=== PATIENT | female | born 1945 | race Caucasian/White ===

== ENCOUNTER 2023-05-06 11:41 | Outpatient (CLI) | payer MEDICARE, SELFPAY | END 2023-05-06 11:42 | disposition home or self-care (01) | PROVIDERS: PCP Nurse Practitioner Family; Visit Provider Nurse Practitioner Family | DX: E78.5 Hyperlipidemia, unspecified (principal); R53.83 Other fatigue; D64.9 Anemia, unspecified; I10 Essential (primary) hypertension | CPT/HCPCS: 80053; 82306; 82784; 83516; 83540; 83550; 84443; 85025 ==

== ENCOUNTER 2023-06-08 15:01 | Outpatient (CLI) | payer MEDICARE, SELFPAY | END 2023-06-08 15:02 | disposition home or self-care (01) | LOC: KYNREF 15:03 | PROVIDERS: PCP Nurse Practitioner Family; Visit Provider Nurse Practitioner Family | DX: D64.9 Anemia, unspecified (principal) | CPT/HCPCS: 85025 ==

== ENCOUNTER 2023-06-22 15:10 | Outpatient (CLI) | payer MEDICARE, SELFPAY | END 2023-06-22 15:11 | disposition home or self-care (01) | PROVIDERS: PCP Nurse Practitioner Family; Visit Provider Nurse Practitioner Family | DX: R06.02 Shortness of breath (principal); D64.9 Anemia, unspecified | CPT/HCPCS: 83880; 85025 ==

== ENCOUNTER 2024-05-08 13:28 | Outpatient (CLI) | payer MEDICARE, SELFPAY ==
--- OUTSIDE RECORDS SUMMARY | 2024-05-08 13:38 | XMS_ITS | Clinical Summary ---
Author Organization [employer] [facility] Address [place], [place] [address] Care Team Providers Care Hspt Tutor Name Role Phone Telly Gaines Primary Care Provider [phone] Allergies Active Allergy Reactions Criticality Noted Date Comments Iodinated Contrast Media Anaphylaxis High 01/28/2010 Latex Hives 01/28/2010 Metoclopramide Dyspnea 01/16/2014 Tramadol Syncope 07/25/2018 passed out Social History Tobacco Use Types Packs/Day Years Used Date Smoking Tobacco: Never Assessed Sex and Gender Information Value Date Recorded Sex Assigned at Not on file Gender Identity Not on file Sexual Orientation Not on file Last Filed Vital Signs Vital Sign Reading Time Taken Comments Blood Pressure 188/109 08/09/2022 11:29 AM CDT Pulse 50 08/09/2022 12:22 PM CDT Temperature 36.6 ??C (97.9 ??F) 08/09/2022 11:10 AM C DT Respiratory Rate 16 08/09/2022 11:10 AM CDT Oxygen Saturation 98% 08/09/2022 12:22 PM CDT Inhaled Oxygen Concentration - - Weight - - Height - - Body Mass Index - - Plan of Treatment Health Maintenance Due Date Last Done Comments Tdap 1958 Depression screening for age 12+ 1959 BMI (ht and wt on same day) for age 18+ 1965 Hepatitis C screening for ag e 18-79 1965 Tetanus booster 1967 Zoster (shingles) series for age 50+ (1 of 2) 1997 DEXA/DXA scan for age 65+ 2012 Pneumococcal series for age 65+ (1 of 1 - PCV) 2012 COVID-19 vaccine series (2022- season) 2023 04/06/2022, 08/27/2021, 01/15/2021, Additional history exists Influenza for age 65+ 07/16/2024 Care Teams Hspt Tutor Relationship Specialty Start Date End Date Telly Gaines [address] [place] [address] PCP - General 07/11/14
--- OUTSIDE RECORDS SUMMARY | 2024-05-08 13:43 | XMS_ITS | Continuity of Care Document ---
Author Organization [facility] Address [address] [place] [address] Care Team Providers Care Mechanical Cad Designer Name Role Phone Emilia Lincoln M.D. Primary Care Provider [phone] Source Comments Patient records contain information from all sites at [facility]. For routine questions regarding patient records, call [phone] during business hours, M-F 8:00 AM - 5:00 PM Central Time. Record requests for emergency care only can be directed to [phone] at any time.[facility] Encounters Date Type Department Care Team Description 4 2:00 PM CDT Anticoagulation Visit Department of Anticoagulation in [place], [place] [address] [place] [address] Emilia Lincoln M.D. Thrombosis Deep Vein Personal History (Primary Dx); 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; Monitoring For Therapeutic Drug Therapy; Atrial Fibrillation Paroxysmal (HCC) 4 Clinical Communication Department of Anticoagulation in [place], [place] [address] [place] [address] Yun Lau Anticoagulation (Lack of Engagement) 4 11:11 AM CDT - 4 11:59 PM CDT Hospital Encounter Department of Cardiovascular Diseases in [place], [place] [address] [place] [address] Hugo Sanchez M.D. Failure Heart (HCC) Discharge Disposition: Home or Self Care 4 9:16 AM CDT - 4 11:10 AM CDT Hospital Encounter Department of Radiology, [facility], in [place], [place] [address] [place] [phone] Hugo Sanchez M.D. Failure Heart (HCC) Discharge Disposition: Home or Self Care 4 8:25 AM CDT - 4 9:15 AM CDT Hospital Encounter Department of Laboratory Medicine and Pathology, [facility] in [place], [place] [address] [place] [address] Hugo Sanchez M.D. Atrial Fibrillation Paroxysmal (HCC); Failure Heart (HCC) Discharge Disposition: Home or Self Care 4 4:00 PM CDT Office Visit Department of Cardiovascular Medicine in [place], [place] [address] [place] [phone] Hugo Sanchez M.D. Hypertension Essential Primary (Primary Dx); Chronic Diastolic (Congestive) Heart Failure (HCC); Atrial Fibrillation Paroxysmal (HCC); Sleep Apnea; Hyperlipidemia 4 3:00 PM CDT Anticoagulation Visit Department of Anticoagulation in [place], [place] [address] [place] [phone] Emilia Lincoln M.D. Thrombosis Deep Vein Personal History; Assisted (Current) 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 Treatment; Monitoring For Therapeutic Drug Therapy; Atrial Fibrillation Paroxysmal (HCC) 4 Refill Department of Family Medicine, [facility], in [address] [address] Emilia Lincoln M.D. Med Refill 4 3:00 PM CDT Anticoagulation Visit Department of Anticoagulation in [place], [place] [address] [place] [phone] Emilia Lincoln M.D. Thrombosis Deep Vein Personal History (Primary Dx); Assisted (Current) 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 Treatment; Monitoring For Therapeutic Drug Therapy; Atrial Fibrillation Paroxysmal (HCC) 4 2:18 PM CDT - 4 11:59 PM CDT Hospital Encounter Department of Laboratory Medicine in [place], [place] [address] [place] [address] Emilia Lincoln M.D. Atrial Fibrillation Paroxysmal (HCC); Assisted (Current) 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 Treatment; Monitoring For Therapeutic Drug Therapy; Thrombosis Deep Vein Personal History Discharge Disposition: Home or Self Care 4 2:45 PM CDT Telemedicine Center for Sleep Medicine in [place], [place] [address] [place] [phone] Andrews Ko M.B. Kloos Olson, Kristin E, R.N. Insomnia (Primary Dx) 4 Clinical Communication Department of Anticoagulation in [place], [place] [address] [place] [phone] Magda Banks R.N. Anticoagulation (Home INR-machine left at other house) 4 Refill Department of Cardiovascular Medicine in [place], [place] [address] [place] [phone] Guru Cruz M.D. Med Refill 4 Refill Department of Cardiovascular Medicine in [place], [place] [address] [place] [phone] Guru Cruz M.D. Med Refill 4 Clinical Communication Department of Cardiovascular Medicine in [address] [phone] Morning Show Newscast ProducerHi M.D. Echo Move Up Request 4 Clinical Communication Department of Cardiovascular Medicine in [place], [place] [address] [place] [phone] Hugo Sanchez M.D. 4 1:30 PM CDT Anticoagulation Visit Department of Anticoagulation in [place], [place] [address] [place] [phone] Emilia Lincoln M.D. Atrial Fibrillation Paroxysmal (HCC); 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; Monitoring For Therapeutic Drug Therapy; Thrombosis Deep Vein Personal History 4 Clinical Communication Department of Anticoagulation in [place], [place] [address] [place] [phone] Diane Marie R.N. Anticoagulation ([facility] Enrollment) 4 9:15 AM CDT Anticoagulation Visit Department of Anticoagulation in [place], [place] [address] [place] [phone] Emilia Lincoln M.D. Atrial Fibrillation Paroxysmal (HCC); Assisted (Current) 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 Treatment; Monitoring For Therapeutic Drug Therapy; Thrombosis Deep Vein Personal History 4 Orders Only [facility] Emilia Lincoln M.D. 4 12:30 PM [facility] Clinical Communication Virtual Review in [place], [place] [address] [place] [address] Pre-visit Intake 4 3:00 PM [facility] Anticoagulation Visit Department of Anticoagulation in [place], [place] [address] [place] [phone] Telly Gaines M.D. Atrial Fibrillation Paroxysmal (HCC); 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; Monitoring For Therapeutic Drug Therapy; Thrombosis Deep Vein Personal History 4 Refill Department of Family Medicine, [facility], in [place], [place] [address] [place] [phone] Hannah Reich APRN, C.N.P., D.N.P. Med Refill 4 11:15 AM [facility] Anticoagulation Visit Department of Anticoagulation in [place], [place] [address] [place] [phone] Telly Gaines M.D. Atrial Fibrillation Paroxysmal (HCC) (Primary Dx); 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; Monitoring For Therapeutic Drug Therapy; Thrombosis Deep Vein Personal History 4 8:15 AM [facility] Anticoagulation Visit Department of Anticoagulation in [place], [place] [address] [place] [phone] Emilia Lincoln M.D. Thrombosis Deep Vein Personal History (Primary Dx); 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; Monitoring For Therapeutic Drug Therapy; Atrial Fibrillation Paroxysmal (HCC) 4 10:45 AM [facility] Clinical Communication Virtual Review in [place], [place] [address] [place] [address] Previsit Preparation (ROSA ELENA DD) 4 Clinical Communication [facility] in [place], [place] [address] [place] [phone] Andrews Ko M.B. 4 4:00 PM [facility] Anticoagulation Visit Department of Anticoagulation in [place], [place] [address] [place] [phone] Telly Gaines M.D. Atrial Fibrillation Paroxysmal (HCC); Assisted (Current) 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 Treatment; Monitoring For Therapeutic Drug Therapy; Thrombosis Deep Vein Personal History 4 9:30 AM [facility] Telemedicine [facility] in [address] [address] Andrews Ko M.B. Obstructive Sleep Apnea Adult (Primary Dx) 4 10:45 AM [facility] Anticoagulation Visit Department of Anticoagulation in [address] [address] Telly Gaines M.D. Atrial Fibrillation Paroxysmal (HCC); Assisted (Current) 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 Treatment; Monitoring For Therapeutic Drug Therapy; Thrombosis Deep Vein Personal History 4 9:30 AM [facility] Anticoagulation Visit Department of Anticoagulation in [address] [address] Emilia Lincoln M.D. Thrombosis Deep Vein Personal History (Primary Dx); 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; Monitoring For Therapeutic Drug Therapy; Atrial Fibrillation Paroxysmal (HCC) 4 7:30 AM [facility] - 4 11:59 PM [facility] Hospital Encounter [facility] in [place], [place] [address] [place] [phone] Andrews Ko M.B. Discharge Disposition: Home or Self Care 4 Clinical Communication Department of Cardiovascular Medicine in [place], [place] [address] [place] [phone] Morning Show Newscast ProducerHi M.D. 4 Clinical Communication Department of Cardiovascular Medicine in [place], [place] [address] [place] [phone] Prescheduling, Provider Triage 4 Orders Only [facility] [address] [place] [address] Fede Palacios M.D. Chronic Diastolic (Congestive) Heart Failure (HCC) (Primary Dx) 4 4:00 PM [facility] Anticoagulation Visit Department of Anticoagulation in [place], [place] [address] [place] [address] Telly Gaines M.D. Atrial Fibrillation Paroxysmal (HCC); 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; Monitoring For Therapeutic Drug Therapy; Thrombosis Deep Vein Personal History 4 Orders Only Department of Cardiovascular Medicine in [place], [place] [address] [place] [phone] Fede Palacios M.D. 4 8:45 AM [facility] Anticoagulation Visit Department of Anticoagulation in [place], [place] [address] [place] [phone] Emilia Lincoln M.D. Thrombosis Deep Vein Personal History (Primary Dx); Assisted (Current) 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 Treatment; Monitoring For Therapeutic Drug Therapy; Atrial Fibrillation Paroxysmal (HCC) 3 9:01 AM [facility] - 4 11:59 PM [facility] Hospital Encounter [facility] in [place], [place] [address] [place] [phone] Andrews Ko M.B. Obstructive Sleep Apnea Adult Discharge Disposition: Home or Self Care 3 2:45 PM [facility] Telemedicine [facility] in [place], [place] [address] [place] [phone] Andrews Ko M.B. Obstructive Sleep Apnea Adult (Primary Dx) 3 Clinical Communication [facility] in [place], [place] [address] [place] [phone] Storm Mcgee M.D. 3 9:40 AM [facility] - 3 11:59 PM [facility] Hospital Encounter Department of Laboratory Medicine in [address] [address] Fede Palacios M.D. Hypertension Pulmonary (HCC); Anemia Iron Deficiency; Chronic Diastolic (Congestive) Heart Failure (HCC) Discharge Disposition: Home or Self Care 3 Refill Department of Cardiovascular Medicine in [place], [place] [address] [place] [phone] Guru Cruz M.D. Med Refill 3 2:15 PM [facility] Infusion Department of Infusion Therapy in [place], [place] [address] [place] [phone] Fede Palacios M.D. Anemia Iron Deficiency (Primary Dx); Anemia Discharge Disposition: Home or Self Care 3 Documentation Department of Cardiovascular Diseases in [place], [place] [address] [place] [phone] Josias Radha Siddharth 3 9:04 AM [facility] - 3 11:59 PM [facility] Hospital Encounter Department of Cardiac Rehabilitation in [place], [place] [address] [place] [phone] Ap Buckley M.D., Ph.D. Hypertension Pulmonary (HCC) Discharge Disposition: Home or Self Care 3 10:00 AM [facility] Comprehensive Visit Department of Cardiovascular Medicine in [place], [place] [address] [place] [phone] Fede Palacios M.D. Anemia Iron Deficiency (Primary Dx); Hypertension Pulmonary (HCC); Chronic Diastolic (Congestive) Heart Failure (HCC) 3 8:00 AM [facility] Comprehensive Visit Department of Cardiovascular Medicine in [place], [place] [address] [place] [phone] Ap Buckley M.D., Ph.D. Atrial Fibrillation Unspecified (HCC); Atrial Fibrillation Paroxysmal (HCC) 3 10:45 AM [facility] Clinical Communication Virtual Review in [place], [place] [address] [place] [address] Pre-visit Intake 3 1:16 PM [facility] - 3 1:35 PM [facility] Hospital Encounter Department of Laboratory Medicine and Pathology, [facility] in [place], [place] [address] [place] [address] Jose A Lewis M.D. Hyperlipidemia; Atrial Fibrillation Unspecified (HCC); Atrial Fibrillation Paroxysmal (HCC); Hypertension Pulmonary (HCC) Discharge Disposition: Home or Self Care 3 1:36 PM [facility] - 3 11:59 PM [facility] Hospital Encounter Department of Cardiovascular Diseases in [place], [place] [address] [place] [phone] Ap Buckley M.D., Ph.D. Hypertension Pulmonary (HCC) Discharge Disposition: Home or Self Care 3 8:45 AM [facility] Anticoagulation Visit Department of Anticoagulation in [place], [place] [address] [place] [phone] Telly Gaines M.D. Thrombosis Deep Vein Personal History (Primary Dx); 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; Monitoring For Therapeutic Drug Therapy; Atrial Fibrillation Paroxysmal (HCC) 3 1:15 PM [facility] Anticoagulation Visit Department of Anticoagulation in [place], [place] [address] [place] [phone] Telly Gaines M.D. Atrial Fibrillation Paroxysmal (HCC); 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; Monitoring For Therapeutic Drug Therapy; Thrombosis Deep Vein Personal History 3 10:00 AM [facility] Anticoagulation Visit Department of Anticoagulation in [place], [place] [address] [place] [address] Telly Gaines M.D. Atrial Fibrillation Paroxysmal (HCC); Assisted (Current) 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 Treatment; Monitoring For Therapeutic Drug Therapy; Thrombosis Deep Vein Personal History 3 Clinical Communication Department of Cardiovascular Medicine in [place], [place] [address] [place] [phone] Morning Show Newscast ProducerHi M.D. 3 9:30 AM [facility] Anticoagulation Visit Department of Anticoagulation in [place], [place] [address] [place] [phone] Emilia Lincoln M.D. Thrombosis Deep Vein Personal History (Primary Dx); 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; Monitoring For Therapeutic Drug Therapy; Atrial Fibrillation Paroxysmal (HCC) 3 8:30 AM CDT Anticoagulation Visit Department of Anticoagulation in [place], [place] [address] [place] [phone] Emilia Lincoln M.D. Thrombosis Deep Vein Personal History (Primary Dx); 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; Monitoring For Therapeutic Drug Therapy; Atrial Fibrillation Paroxysmal (HCC) 3 11:15 AM CDT Anticoagulation Visit Department of Anticoagulation in [place], [place] [address] [place] [phone] Telly Gaines M.D. Atrial Fibrillation Paroxysmal (HCC); Assisted (Current) 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 Treatment; Monitoring For Therapeutic Drug Therapy; Thrombosis Deep Vein Personal History 3 Orders Only Department of Anticoagulation in [place], [place] [address] [place] [phone] Tori Dias R.N. 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 (Primary Dx) 3 Refill Department of Family Medicine, [facility] in [place], [place] [address] [place] [phone] Jose A Lewis M.D. Med Refill 3 Clinical Communication Department of Family Medicine, [facility], in [address] [address] Emilia Lincoln M.D. 3 1:30 PM CDT - 3 11:59 PM CDT Hospital Encounter Department of Radiology in [address] [address] Emilia Lincoln M.D. Screening Mammogram Breast Cancer Discharge Disposition: Home or Self Care 3 8:45 AM CDT Anticoagulation Visit Department of Anticoagulation in [place], [place] [address] [place] [phone] Jose A Lewis M.D. Thrombosis Deep Vein Personal History; 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; Monitoring For Therapeutic Drug Therapy; Atrial Fibrillation Paroxysmal (HCC) 3 Clinical Communication Department of Cardiovascular Medicine in [place], [place] [address] [place] [address] Ap Buckley M.D., Ph.D. Medication Problem (Dofetilide) 3 Clinical Communication Department of Family Medicine, [facility], in [address] [address] Iza Albarran R.N. Post Hospital Follow-up (D/c 07/21/2023) 3 2:00 PM CDT Anticoagulation Visit Department of Anticoagulation in [place], [place] [address] [place] [phone] Jose A Lewis M.D. Thrombosis Deep Vein Personal History (Primary Dx); 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; Monitoring For Therapeutic Drug Therapy; Atrial Fibrillation Paroxysmal (HCC) 3 9:30 AM CDT Anticoagulation Visit Department of Anticoagulation in [place], [place] [address] [place] [phone] Jose A Lewis M.D. Thrombosis Deep Vein Personal History (Primary Dx); 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; Monitoring For Therapeutic Drug Therapy; Atrial Fibrillation Paroxysmal (HCC) 3 Clinical Communication Department of Anticoagulation in [place], [place] [address] [place] [phone] Christine Brandt R.N. Anticoagulation (Post-hospital, tracker updated.) 3 2:34 PM CDT Anesthesia Event Department of Cardiovascular Disease [address] [place] [phone] Lani Huber APRN, CRNA, D.N.P. 3 6:46 AM CDT - 3 4:47 PM CDT Hospital Encounter [facility], [facility], Fourth Floor [address] [place] [phone] Ap Buckley M.D., Ph.D. Telly Sorto M.D., Ph.D. OnAdeel bass P.A.-C. Atrial Fibrillation Paroxysmal (HCC) (Primary Dx); Assisted (Current) 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 Treatment; Thrombosis Deep Vein Acute Calf Right (HCC); Monitoring For Therapeutic Drug Therapy Discharge Disposition: Home or Self Care 3 Clinical Communication Department of Cardiovascular Medicine in [place], [place] [address] [place] [phone] Hannah Falcon APRN, C.N.P. 3 9:00 AM CDT Anticoagulation Visit Department of Anticoagulation in [place], [place] [address] [place] [phone] Jose A Lewis M.D. Thrombosis Deep Vein Personal History (Primary Dx); 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; Monitoring For Therapeutic Drug Therapy; Atrial Fibrillation Paroxysmal (HCC) 3 Refill Department of [facility] in [place], [place] [address] [place] [phone] Jose A Lewis M.D. Med Refill 3 12:48 PM CDT - 3 11:59 PM CDT Hospital Encounter Department of Laboratory Medicine in [address] [phone] Ap Buckley M.D., Ph.D. Atrial Fibrillation Unspecified (HCC) Discharge Disposition: Home or Self Care 3 Clinical Communication Department of Anticoagulation in [place], [place] [address] [place] [phone] Veronica Mistry R.N. anticoagulaion procedure 3 2:45 PM CDT Anticoagulation Visit Department of Anticoagulation in [place], [place] [address] [place] [phone] Telly Gaines M.D. Atrial Fibrillation Paroxysmal (HCC); 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; Monitoring For Therapeutic Drug Therapy; Thrombosis Deep Vein Personal History 3 [facility] AND [address] [address] Ximena cEkert C.N.P. Repeated Falls (Primary Dx) 3 Clinical Communication Department of Family Medicine, [facility] in [place], [place] [address] [place] [address] Jose A Lewis M.D. 3 9:30 AM CDT Anticoagulation Visit Department of Anticoagulation in [place], [place] [address] [place] [phone] Jose A Lewis M.D. Thrombosis Deep Vein Personal History (Primary Dx); Assisted (Current) 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 Treatment; Monitoring For Therapeutic Drug Therapy; Atrial Fibrillation Paroxysmal (HCC) 3 Clinical Communication Department of Urology in [place], [place] [address] [place] [address] Kendal Bullock M.D. [address] [address] Ximena Eckert C.N.P. Incontinence Urinary (Primary Dx) 3 3:30 PM CDT Anticoagulation Visit Department of Anticoagulation in [place], [place] [address] [place] [address] Telly Gaines M.D. Atrial Fibrillation Paroxysmal (HCC); 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; Monitoring For Therapeutic Drug Therapy; Thrombosis Deep Vein Personal History 3 10:45 AM CDT Education Department of Cardiovascular Medicine in [place], [place] [address] [place] [address] Lani [place], R.N., CCRN 3 Clinical Communication Department of Cardiovascular Medicine in [place], [place] [address] [place] [phone] Lani [place] R.N., CCRN 3 7:07 AM CDT - 3 11:59 PM CDT Hospital Encounter Department of Laboratory Medicine and Pathology, [facility] in [place], [place] [address] [place] [address] Ap Buckley M.D., Ph.D. Atrial Fibrillation Unspecified (HCC) Discharge Disposition: Home or Self Care 3 9:00 AM CDT Office Visit Department of Cardiovascular Medicine in [place], [place] [address] [place] [phone] Ap Buckley M.D., Ph.D. Obstructive Sleep Apnea Adult (Primary Dx); Hypertension Essential Primary; Hypertension Pulmonary (HCC); Atrial Fibrillation Unspecified (HCC) 3 1:15 PM CDT Clinical Communication Virtual Review in [place], [place] [address] [place] [address] Pre-visit Intake 3 11:00 AM CDT Anticoagulation Visit Department of Anticoagulation in [place], [place] [address] [place] [phone] Jose A Lewis M.D. Thrombosis Deep Vein Personal History (Primary Dx); 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; Monitoring For Therapeutic Drug Therapy; Atrial Fibrillation Paroxysmal (HCC) 3 1:30 PM CDT Anticoagulation Visit Department of Anticoagulation in [place], [place] [address] [place] [phone] Telly Gaines M.D. Atrial Fibrillation Paroxysmal (HCC); 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; Monitoring For Therapeutic Drug Therapy; Thrombosis Deep Vein Personal History 3 3:00 PM CDT Anticoagulation Visit Department of Anticoagulation in [place], [place] [address] [place] [phone] Telly Gaines M.D. Atrial Fibrillation Paroxysmal (HCC); 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; Monitoring For Therapeutic Drug Therapy; Thrombosis Deep Vein Personal History 3 Orders Only [facility] Jose A Lewis M.D. Hyperlipidemia 3 Clinical Communication Department of Anticoagulation in [place], [place] [address] [place] [phone] Jacquie Chavis R.N. Anticoagulation (Home INR test strips) 3 4:00 PM CDT Anticoagulation Visit Department of Anticoagulation in [place], [place] [address] [place] [phone] Telly Gaines M.D. Atrial Fibrillation Paroxysmal (HCC); 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; Monitoring For Therapeutic Drug Therapy; Thrombosis Deep Vein Personal History 3 3:16 PM CDT - 3 11:59 PM CDT Hospital Encounter Department of Laboratory Medicine in [place], [place] [address] [place] [address] Jose A Lewis M.D. Atrial Fibrillation Paroxysmal (HCC); Assisted (Current) 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 Treatment; Monitoring For Therapeutic Drug Therapy Discharge Disposition: Home or Self Care 3 Orders Only Department of Anticoagulation in [place], [place] [address] [place] [address] Lani Mittal R.N. Atrial Fibrillation Paroxysmal (HCC) (Primary Dx); 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; Monitoring For Therapeutic Drug Therapy 3 11:00 AM CDT Virtual Visit Department of Cardiovascular Medicine in [place], [place] [address] [place] [address] Ap Buckley M.D., Ph.D. Atrial Fibrillation Paroxysmal (HCC) (Primary Dx) 3 3:10 PM CDT - 3 11:59 PM CDT Hospital Encounter Department of Cardiovascular Diseases in [place], [place] [address] [place] [address] Ap Buckley M.D., Ph.D. Atrial Fibrillation Paroxysmal (HCC) Discharge Disposition: Home or Self Care 3 2:00 PM CDT Anticoagulation Visit Department of Anticoagulation in [place], [place] [address] [place] [address] Telly Gaines M.D. Atrial Fibrillation Paroxysmal (HCC); Assisted (Current) 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 Treatment; Monitoring For Therapeutic Drug Therapy; Thrombosis Deep Vein Personal History 3 10:18 AM CDT - 3 11:59 PM CDT Hospital Encounter Department of Radiology in [address] [address] Jose A Lewis M.D. Deficiency Estrogen Post Menopausal Discharge Disposition: Home or Self Care 3 Orders Only Department of Anticoagulation in [place], [place] [address] [place] [address] Amy Morris RPreeti Thrombosis Deep Vein Personal History (Primary Dx); Assisted (Current) 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 Treatment; Monitoring For Therapeutic Drug Therapy; Atrial Fibrillation Paroxysmal (HCC) 3 Clinical Communication Department of Anticoagulation in [place], [place] [address] [place] [address] Amy Morris R.N. Anticoagulation (Referral (PCP updated)) 3 8:30 AM CDT Anticoagulation Visit Department of Anticoagulation in [place], [place] [address] [place] [phone] Jose A Lewis M.D. Thrombosis Deep Vein Personal History (Primary Dx); 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; Monitoring For Therapeutic Drug Therapy; Atrial Fibrillation Paroxysmal (HCC) 3 9:30 AM CDT Anticoagulation Visit Department of Anticoagulation in [place], [place] [address] [place] [phone] Jose A Lewis M.D. Thrombosis Deep Vein Personal History (Primary Dx); 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; Monitoring For Therapeutic Drug Therapy; Atrial Fibrillation Paroxysmal (HCC) 3 3:15 PM CDT Anticoagulation Visit Department of Anticoagulation in [place], [place] [address] [place] [phone] Telly Gaines M.D. Atrial Fibrillation Paroxysmal (HCC); 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; Monitoring For Therapeutic Drug Therapy; Thrombosis Deep Vein Personal History 3 Orders Only RST PCP [facility] Jose A Mccauley M.D. 3 10:00 AM [facility] Anticoagulation Visit Department of Anticoagulation in [place], [place] [address] [place] [phone] Jose A Lewis M.D. Thrombosis Deep Vein Personal History (Primary Dx); Assisted (Current) 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 Treatment; Monitoring For Therapeutic Drug Therapy; Atrial Fibrillation Paroxysmal (HCC) 3 10:00 AM [facility] Anticoagulation Visit Department of Anticoagulation in [place], [place] [address] [place] [phone] Telly Gaines M.D. Atrial Fibrillation Paroxysmal (HCC); 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; Monitoring For Therapeutic Drug Therapy; Thrombosis Deep Vein Personal History 3 Refill Department [facility], [place], [place] [address] [place] [phone] Jose A Lewis M.D. Med Refill 3 Refill Department of Family [facility], [facility] in [place], [place] [address] [place] [phone] Raul Almendarez M.D. Med Refill 3 8:30 AM [facility] Virtual Visit Department of Cardiovascular Medicine in [place], [place] [address] [place] [phone] Ap Buckley M.D., Ph.D. Atrial Fibrillation Unspecified (Primary Dx); Atrial Fibrillation Paroxysmal (HCC) 3 8:30 AM [facility] Anticoagulation Visit Department of Anticoagulation in [place], [place] [address] [place] [phone] Telly Gaines M.D. Thrombosis Deep Vein Personal History (Primary Dx); Atrial Fibrillation Paroxysmal (HCC); 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; Monitoring For Therapeutic Drug Therapy 3 Refill Department [facility], [place], [place] [address] [place] [phone] Jose A Lewis M.D. Med Refill 3 Refill Department of Family [facility], [place], [place] [address] [place] [phone] Telly Gaines M.D. Med Refill 3 11:00 AM [facility] Virtual Visit Department of Cardiovascular Medicine in [place], [place] [address] [place] [phone] Ap Buckley M.D., Ph.D. Shortness Of Breath (Primary Dx) 3 8:15 AM [facility] Anticoagulation Visit Department of Anticoagulation in [place], [place] [address] [place] [phone] Telly Gaines M.D. Atrial Fibrillation Paroxysmal (HCC) (Primary Dx); 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; Monitoring For Therapeutic Drug Therapy; Thrombosis Deep Vein Personal History 2 10:46 AM [facility] - 2 11:59 PM [facility] Hospital Encounter Department of Cardiovascular Diseases in [place], [place] [address] [place] [address] Ap Buckley M.D., Ph.D. Atrial Fibrillation Unspecified; Dyspnea On Exertion Discharge Disposition: Home or Self Care 2 9:00 AM [facility] - 2 9:16 AM [facility] Hospital Encounter Department of Laboratory Medicine and Pathology, [facility] in [place], [place] [address] [place] [address] Ap Buckley M.D., Ph.D. Atrial Fibrillation Unspecified; Dyspnea On Exertion Discharge Disposition: Home or Self Care 2 9:17 AM [facility] - 2 10:45 AM [facility] Hospital Encounter Department of Radiology, [facility] in [place], [place] [address] [place] [address] Ap Buckley M.D., Ph.D. Dyspnea On Exertion Discharge Disposition: Home or Self Care 2 Refill Department of Family Medicine, [facility] in [place], [place] [address] [place] [address] Telly Gaines M.D. Med Refill 2 8:34 AM [facility] - 2 11:59 PM [facility] Hospital Encounter Department of Cardiovascular Diseases in [place], [place] [address] [place] [phone] Ap Buckley M.D., Ph.D. Atrial Fibrillation Unspecified Discharge Disposition: Home or Self Care 2 Orders Only RST PCP [facility] Jose A Lewis M.D. Deficiency Estrogen Post Menopausal 2 8:15 AM [facility] Anticoagulation Visit Department of Anticoagulation in [place], [place] [address] [place] [address] Jose A Lewis M.D. Thrombosis Deep Vein Personal History (Primary Dx); Assisted (Current) 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 Treatment; Monitoring For Therapeutic Drug Therapy; Atrial Fibrillation Paroxysmal (HCC) 2 11:00 AM [facility] Virtual Visit Department of Cardiovascular Medicine in [place], [place] [address] [place] [phone] Ap Buckley M.D., Ph.D. Atrial Fibrillation Unspecified (Primary Dx); Dyspnea On Exertion; Atrial Fibrillation Paroxysmal (HCC) 2 8:45 AM [facility] Anticoagulation Visit Department of Anticoagulation in [place], [place] [address] [place] [phone] Jose A Lewis M.D. Thrombosis Deep Vein Personal History (Primary Dx); Assisted (Current) 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 Treatment; Monitoring For Therapeutic Drug Therapy; Atrial Fibrillation Paroxysmal (HCC) 2 2:00 PM CDT Anticoagulation Visit Department of Anticoagulation in [place], [place] [address] [place] [phone] Telly Gaines M.D. Atrial Fibrillation Paroxysmal (HCC); 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; Monitoring For Therapeutic Drug Therapy; Thrombosis Deep Vein Personal History 2 8:45 AM CDT Anticoagulation Visit Department of Anticoagulation in [place], [place] [address] [place] [phone] Telly Gaines M.D. Thrombosis Deep Vein Personal History (Primary Dx); Assisted (Current) 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 Treatment; Monitoring For Therapeutic Drug Therapy; Atrial Fibrillation Paroxysmal (HCC) 2 10:30 AM CDT - 2 11:59 PM CDT Hospital Encounter Department of Radiology in [address] [address] Telly Gaines M.D. Screening Mammogram Breast Cancer Discharge Disposition: Home or Self Care 2 12:48 PM CDT - 2 11:59 PM CDT Hospital Encounter Department of Laboratory Medicine and Pathology, [facility] in [place], [place] [address] [place] [phone] Ap Buckley M.D., Ph.D. Atrial Fibrillation Paroxysmal (HCC) Discharge Disposition: Home or Self Care 2 10:41 AM CDT - 2 1:53 PM CDT Emergency [facility] [address] [place] [phone] Hypertension Borderline (Primary Dx); Headache New Discharge Disposition: Home or Self Care 2 Nurse Triage Department of [place], [place] [address] [place] [phone] Yocasta Leonardo R.N. Hypertension 2 10:00 AM CDT Anticoagulation Visit Department of Anticoagulation in [place], [place] [address] [place] [phone] Telly Gaines M.D. Atrial Fibrillation Paroxysmal (HCC); Assisted (Current) 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 Treatment; Monitoring For Therapeutic Drug Therapy; Thrombosis Deep Vein Personal History 2 Clinical Communication Department of Anticoagulation in [place], [place] [address] [place] [phone] Agnieszka Johnson R.N. Anticoagulation (HOME INR mikel- No reported INR's. Attempt to reach) 2 Orders Only [facility] T[facility] Gaines M.D. Screening Mammogram Breast Cancer 2 4:00 PM CDT Anticoagulation Visit Department of Anticoagulation in [place], [place] [address] [place] [phone] Telly Gaines M.D. Atrial Fibrillation Paroxysmal (HCC); Assisted (Current) 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 Treatment; Monitoring For Therapeutic Drug Therapy; Thrombosis Deep Vein Personal History 2 Refill Department of [place], [place] [address] [place] [phone] Telly Gaines M.D. Med Refill 2 2:00 PM CDT Anticoagulation Visit Department of Anticoagulation [place], [place] [address] [place] [phone] Telly Gaines M.D. Atrial Fibrillation Paroxysmal (HCC); Assisted (Current) 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 Treatment; Monitoring For Therapeutic Drug Therapy; Thrombosis Deep Vein Personal History 2 Clinical Communication Department of Orthopedic Surgery in [place], [place] [address] [place] [phone] Ronaldo Moore M.D. Surgical Listing; Phone Contact 2 Clinical Communication Department of Orthopedic Surgery in [place], [place] [address] [place] [phone] Ronaldo Moore M.D. Procedure 2 10:45 AM CDT Anticoagulation Visit Department of Anticoagulation in [address] [address] Telly Gaines M.D. Thrombosis Deep Vein Personal History (Primary Dx); Assisted (Current) 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 Treatment; Monitoring For Therapeutic Drug Therapy; Atrial Fibrillation Paroxysmal (HCC) 2 2:00 PM CDT Office Visit Department of Family Medicine, [facility] in [place], [place] [address] [place] [phone] Telly Gaines M.D. Preoperative Exam (Primary Dx); Depression Major Recurrent Full Remission (HCC); Atrial Fibrillation Paroxysmal (HCC); Asthma Mild Intermittent (HCC); History Of Falling; Primary Osteoarthritis Knee Right; Thrombosis Deep Vein Personal History; 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; Maintenance Health Adult; Hypertension Essential Primary 2 Orders Only Department of Family Medicine, [facility] in [address] [address] Telly Gaines M.D. Polyp Colon Adenomatous Personal History 2 10:30 AM CDT Clinical Communication Virtual Review in [address] [address] Intake Assessment 2 Clinical Communication Department of Cardiovascular Medicine in [address] [address] [employer] M.D. Triage (Hosp f/u 2 weeks) 2 Orders Only Department of Cardiovascular Medicine in [place], [place] [address] [place] [address] Hansa Childers APRN, CHarmonyN.P. Atrial Fibrillation Paroxysmal (HCC) (Primary Dx) 2 2:00 PM CDT Anticoagulation Visit Department of Anticoagulation in [place], [place] [address] [place] [phone] Telly Gaines M.D. Atrial Fibrillation Paroxysmal (HCC); 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; Monitoring For Therapeutic Drug Therapy; Thrombosis Deep Vein Personal History 2 Clinical Communication Department of Cardiovascular Medicine in [place], [place] [address] [place] [address] Ap Buckley M.D., Ph.D. Atrial Fibrillation (Communication) 2 7:23 PM CDT - 2 12:37 PM CDT Emergency [facility] Emergency Department [address] [place] [phone] Jan Molina M.D. Dehydration (Primary Dx); Lightheadedness; Atrial Fibrillation (HCC) Discharge Disposition: Home or Self Care 2 11:00 AM CDT Ancillary Procedure Department of Gastroenterology 2 9:21 AM CDT - 2 7:22 PM CDT Hospital Encounter Division of Gastroenterology in [place], [place] [address] [place] [phone] Telly Gaines M.D. Polyp Colon Discharge Disposition: Home or Self Care 2 8:15 AM CDT Anticoagulation Visit Department of Anticoagulation in [place], [place] [address] [place] [phone] Telly Gaines M.D. Atrial Fibrillation Paroxysmal (HCC); 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; Monitoring For Therapeutic Drug Therapy; Thrombosis Deep Vein Personal History 2 Orders Only Department of Orthopedic Surgery in [place], [place] [address] [place] [phone] Storm Iqbal P.A.-C., M.S. Primary Osteoarthritis Knee Right (Primary Dx) 2 Nurse Triage Department of Family Medicine, [facility] in [place], [place] [address] [place] [address] Melissa Peguero R.N. Bleeding/Bruising 2 Clinical Communication Department of Anticoagulation in [place], [place] [address] [place] [address] Tori Dias R.N. 2 1:45 PM CDT Anticoagulation Visit Department of Anticoagulation in [place], [place] [address] [place] [address] Telly Gaines M.D. Atrial Fibrillation Paroxysmal (HCC); 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; Monitoring For Therapeutic Drug Therapy; Thrombosis Deep Vein Personal History 2 1:15 PM CDT Anticoagulation Visit Department of Anticoagulation in [place], [place] [address] [place] [address] Telly Gaines M.D. Atrial Fibrillation Paroxysmal (HCC); 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; Monitoring For Therapeutic Drug Therapy; Thrombosis Deep Vein Personal History 2 8:30 AM CDT Comprehensive Visit Division of Gastroenterology in [place], [place] [address] [place] [address] Telly Nguyen M.D. Gastroesophageal Reflux Disease Without Esophagitis 2 Orders Only Department of [facility] in [place], [place] [address] [place] [address] Telly Gaines M.D. 2 8:45 AM CDT Anticoagulation Visit Department of Anticoagulation in [place], [place] [address] [place] [phone] Telly Gaines M.D. Atrial Fibrillation Paroxysmal (HCC); Assisted (Current) 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 Treatment; Monitoring For Therapeutic Drug Therapy; Thrombosis Deep Vein Personal History 2 Clinical Communication Department of [facility], in [place], [place] [address] [place] [address] Telly Gaines M.D. Pre-op Exam 2 10:45 AM CDT Anticoagulation Visit Department of Anticoagulation in [place], [place] [address] [place] [address] Telly Gaines M.D. Atrial Fibrillation Paroxysmal (HCC); Assisted (Current) 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 Treatment; Monitoring For Therapeutic Drug Therapy; Thrombosis Deep Vein Personal History 2 Orders Only Preoperative Evaluation Center in [place], [place] [address] [place] [address] Tri Price APRN, C.N.P. Preanesthetic Medical Exam (Primary Dx) 2 Orders Only [facility] [place], [place] [address] [place] [address] Telly Gaines M.D. Gastroesophageal Reflux Disease Without Esophagitis 2 11:05 AM CDT Ancillary Procedure Department of Gastroenterology 2 10:02 AM CDT - 2 11:59 PM CDT Hospital Encounter Division of Gastroenterology in [place], [place] [address] [place] [address] Telly Gaines M.D. Gastroesophageal Reflux Disease Without Esophagitis Discharge Disposition: Home or Self Care 2 10:03 AM CDT - 2 11:59 PM CDT Hospital Encounter Department of Laboratory Medicine, [facility], in [place] [address] [place] [address] Sameer Bowman D.O. Discharge Disposition: Home or Self Care 2 Orders Only [facility] T[facility] Gaines M.D. 2 10:20 AM CDT Admin Visit Urgent Care in [place], [place] [address], [place] [address] 2 External Outreach Department of Family Medicine, [facility], in [place], [place] [address], [place] [address] [place], Sameer J, D.O. Contact With And (Suspected) Exposure To COVID-19 (Primary Dx) 2 10:30 AM CDT Office Visit Department of Family Medicine, [facility], in [place], [place] [address] [address] Dora Martinez APRN, C.N.P., D.N.P., M.S.N. Sore Throat (Primary Dx); Cough Unspecified Type; Conjunctivitis Acute Bilateral 2 2:00 PM CDT Virtual Visit Department of [facility], [place], [place] [address] [place] [address] Telly Gaines M.D. Gastroesophageal Reflux Disease Without Esophagitis (Primary Dx); 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; Viral Syndrome 2 Orders Only Department of [facility], [facility] in [place], [place] [address] [place] [phone] Telly Gaines M.D. Gastroesophageal Reflux Disease Without Esophagitis 2 3:45 PM CDT Anticoagulation Visit Department of Anticoagulation in [place], [place] [address] [place] [address] Telly Gaines M.D. Atrial Fibrillation Paroxysmal (HCC); Assisted (Current) 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 Treatment; Monitoring For Therapeutic Drug Therapy; Thrombosis Deep Vein Personal History 2 3:00 PM CDT Virtual Visit Department of [facility], [facility], in [place], [place] [address] [place] [address] Telly Gaines M.D. Hyperlipidemia; Viral Syndrome 2 7:00 AM CDT Anticoagulation Visit Department of Anticoagulation in [place], [place] [address] [place] [phone] Telly Gaines M.D. Atrial Fibrillation Paroxysmal (HCC); 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; Monitoring For Therapeutic Drug Therapy; Thrombosis Deep Vein Personal History 2 1:45 PM CDT Anticoagulation Visit Department of Anticoagulation in [place], [place] [address] [place] [address] Telly Gaines M.D. Atrial Fibrillation Paroxysmal (HCC); 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; Monitoring For Therapeutic Drug Therapy; Thrombosis Deep Vein Personal History 2 11:32 AM CDT - 2 11:59 PM CDT Hospital Encounter Department of Radiology in [place], [place] [facility] [address], [place] [address] Adarsh Ramirez M.D., M.B.A. Cough Unspecified Type Discharge Disposition: Home or Self Care 2 11:30 AM CDT Office Visit Department of Family Medicine, [facility], in [place], [place] [address] [place] [phone] Adarsh Ramirez M.D., M.B.A. Cough Unspecified Type (Primary Dx); Bronchitis Acute 2 3:00 PM CDT Virtual Visit Department of Cardiovascular Medicine in [place], [place] [address] [place] [address] Ap Buckley M.D., Ph.D. Atrial Fibrillation Paroxysmal (HCC) (Primary Dx) 2 Orders Only Department of Family Medicine, [facility], in [place], [place] [address] [place] [address] Telly Gaines M.D. Hyperlipidemia (Primary Dx) 2 9:33 AM CDT - 2 11:59 PM CDT Hospital Encounter Department of Laboratory Medicine in [address] [address] Ap Buckley M.D., Ph.D. Atrial Fibrillation Paroxysmal (HCC) Discharge Disposition: Home or Self Care 2 9:32 AM CDT Hospital Encounter Department of Laboratory Medicine in [address] [phone] Ap Buckley M.D., Ph.D. Atrial Fibrillation Paroxysmal (HCC); Hyperlipidemia Discharge Disposition: Home or Self Care 2 Refill Department of Family Medicine, [facility], in [place], [place] [address] [place] [address] Telly Gaines M.D. Med Refill 2 7:30 AM CDT Ancillary Procedure Department of Orthopedic Surgery 2 Clinical Communication Department of Orthopedic Surgery in [place], [place] [address] [place] [address] Ronaldo Moore M.D. reschedule surgery 2 Orders Only Department of Orthopedic Surgery in [place], [place] [address] [place] [address] Storm Iqbal P.A.-C., M.S. Primary Osteoarthritis Knee Right (Primary Dx) 2 Clinical Communication Department of Orthopedic Surgery in [place], [place] [address] [place] [address] Ronaldo Moore M.D. schedule surgery 2 7:18 AM CDT - 2 11:59 PM CDT [facility] [place], [place] [address] [place] [address] Storm Iqbal P.A.-C., M.S. Primary Osteoarthritis Knee Right Discharge Disposition: Home or Self Care 2 8:45 AM CDT Office Visit Department of Orthopedic Surgery in [place], [place] [address] [place] [address] Ronaldo Moore M.D. Primary Osteoarthritis Knee Right (Primary Dx) 2 4:00 PM CDT Anticoagulation Visit Department of Anticoagulation in [place], [place] [address] [place] [address] Telly Gaines M.D. Atrial Fibrillation Paroxysmal (HCC); Assisted (Current) 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 Treatment; Monitoring For Therapeutic Drug Therapy; Thrombosis Deep Vein Personal History 2 Orders Only Department of Family Medicine, [facility], in [place], [place] [address] [place] [address] Telly Gaines M.D. Polyp Colon 2 Orders Only Department of Orthopedic Surgery in [place], [place] [address] [place] [address] Storm Iqbal P.A.-C., M.S. Primary Osteoarthritis Knee Right (Primary Dx) 2 3:30 PM CDT Anticoagulation Visit Department of Anticoagulation in [place], [place] [address] [place] [phone] Telly Gaines M.D. Atrial Fibrillation Paroxysmal (HCC); Assisted (Current) 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 Treatment; Monitoring For Therapeutic Drug Therapy; Thrombosis Deep Vein Personal History 2 11:15 AM CDT Anticoagulation Visit Department of Anticoagulation in [place], [place] [address] [place] [address] Telly Gaines M.D. Atrial Fibrillation Paroxysmal (HCC); Assisted (Current) 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 Treatment; Monitoring For Therapeutic Drug Therapy; Thrombosis Deep Vein Personal History 2 4:00 PM CDT Anticoagulation Visit Department of Anticoagulation in [place], [place] [address] [place] [phone] Telly Gaines M.D. Atrial Fibrillation Paroxysmal (HCC); Assisted (Current) 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 Treatment; Monitoring For Therapeutic Drug Therapy; Thrombosis Deep Vein Personal History 2 10:15 AM CDT Anticoagulation Visit Department of Anticoagulation in [place], [place] [address] [place] [phone] Telly Gaines M.D. Atrial Fibrillation Paroxysmal (HCC); Assisted (Current) 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 Treatment; Monitoring For Therapeutic Drug Therapy; Thrombosis Deep Vein Personal History 2 Orders Only RST PCP HLTH MNT Telly Gaines M.D. Hyperlipidemia 2 2:15 PM COOK STARCH Anticoagulation Visit Department of Anticoagulation in [place], [place] [address] [place] [phone] Telly Gaines M.D. Atrial Fibrillation Paroxysmal (HCC); 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; Monitoring For Therapeutic Drug Therapy; Thrombosis Deep Vein Personal History 2 7:00 AM COOK STARCH Anticoagulation Visit Department of Anticoagulation in [place], [place] [address] [place] [phone] Telly Gaines M.D. Atrial Fibrillation Paroxysmal (HCC); 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; Monitoring For Therapeutic Drug Therapy; Thrombosis Deep Vein Personal History 2 1:50 PM COOK STARCH Anticoagulation Visit Department of Anticoagulation in [place], [place] [address] [place] [address] Telly Gaines M.D. Atrial Fibrillation Paroxysmal (HCC); 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; Monitoring For Therapeutic Drug Therapy; Thrombosis Deep Vein Personal History 2 1:10 PM COOK STARCH - 2 11:59 PM COOK STARCH Hospital Encounter Department of Laboratory Medicine and Pathology, [facility], in [place], [place] [address] [place] [address] Telly Gaines M.D. Atrial Fibrillation Paroxysmal (HCC); Assisted (Current) 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 Treatment; Monitoring For Therapeutic Drug Therapy; Thrombosis Deep Vein Personal History Discharge Disposition: Home or Self Care 2 Anticoagulation Visit Department of Anticoagulation in [place], [place] [address] [place] [address] Jacquie Chavis R.N. Atrial Fibrillation Paroxysmal (HCC); 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; Monitoring For Therapeutic Drug Therapy; Thrombosis Deep Vein Personal History 2 Refill Division of Gastroenterology in [place], [place] [address] [place] [address] Evert Roberts M.D. Med Refill 2 Clinical Communication Department of Anticoagulation in [place], [place] [address] [place] [phone] Yun Lau Anticoagulation (Change in care) 2 2:45 PM COOK STARCH Anticoagulation Visit Department of Family Medicine, [facility], in [place], [place] [address] [place] [address] Telly Gaines M.D. Atrial Fibrillation Paroxysmal (HCC); Assisted (Current) 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 Treatment; Monitoring For Therapeutic Drug Therapy; Thrombosis Deep Vein Personal History 2 Clinical Communication Department of Family Medicine, [facility], in [place], [place] [address] [place] [phone] Lanette Zepeda R.N. Anticoagulation (New Do machine today- unable to reach) 2 2:00 PM COOK STARCH Anticoagulation Visit Department of Family Medicine, [facility], [address] [place] [phone] Telly Gaines M.D. Atrial Fibrillation Paroxysmal (HCC); 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; Monitoring For Therapeutic Drug Therapy; Thrombosis Deep Vein Personal History 2 Clinical Communication Department of Family Medicine, [facility], in [place], [place] [address] [place] [phone] Bridget Wallis RHarmonyN. Anticoagulation 2 Orders Only Department of Family Medicine, [facility], in [place] [address] [place] [phone] Emanuel Cao, RHarmonyN. Atrial Fibrillation Paroxysmal (HCC); 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; Monitoring For Therapeutic Drug Therapy; Thrombosis Deep Vein Personal History 2 Clinical Communication Department of Anticoagulation in [place], [place] [address] [place] [phone] Matilde Cooper, R.N. 2 10:15 AM COOK STARCH Anticoagulation Visit Department of Anticoagulation in [place], [place] [address] [place] [phone] Telly Gaines M.D. Atrial Fibrillation Paroxysmal (HCC); Assisted (Current) 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 Treatment; Monitoring For Therapeutic Drug Therapy; Thrombosis Deep Vein Acute Calf Right (HCC); Thrombosis Deep Vein Personal History 2 Clinical Communication Department of Anticoagulation in [place], [place] [address] [place] [phone] Ileana Zurita RHarmonyN. Anticoagulation (Home INR Enrollment/) 2 10:15 AM COOK STARCH Anticoagulation Visit Department of Anticoagulation in [address] [address] Telly Gaines M.D. Atrial Fibrillation Paroxysmal (HCC); Assisted (Current) 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 Treatment; Monitoring For Therapeutic Drug Therapy; Thrombosis Deep Vein Acute Calf Right (HCC); Thrombosis Deep Vein Personal History 2 2:15 PM COOK STARCH Anticoagulation Visit Department of Anticoagulation in [place], [place] [address] [place] [address] Telly Gaines M.D. Atrial Fibrillation Paroxysmal (HCC); Assisted (Current) 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 Treatment; Monitoring For Therapeutic Drug Therapy; Thrombosis Deep Vein Acute Calf Right (HCC); Thrombosis Deep Vein Personal History 2 1:45 PM COOK STARCH Anticoagulation Visit Department of Anticoagulation in [address] [address] Telly Gaines M.D. Atrial Fibrillation Paroxysmal (HCC); 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; Monitoring For Therapeutic Drug Therapy; Thrombosis Deep Vein Acute Calf Right (HCC); Thrombosis Deep Vein Personal History 1 8:00 AM COOK STARCH Anticoagulation Visit Department of Anticoagulation in [address] [address] Telly Gaines M.D. Atrial Fibrillation Paroxysmal (HCC); 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; Monitoring For Therapeutic Drug Therapy; Thrombosis Deep Vein Acute Calf Right (HCC); Thrombosis Deep Vein Personal History 1 Orders Only Department of Family Medicine, [place], [place] [address] [place] [address] Telly Gaines M.D. 1 4:00 PM CDT Virtual Visit Department of Cardiovascular Medicine in [place], [place] [address] [place] [address] Ap Buckley M.D., Ph.D. Atrial Fibrillation Paroxysmal (HCC) (Primary Dx) 1 2:00 PM CDT Comprehensive Visit Department of Family Medicine, [place], [place] [address] [place] [address] Telly Gaines M.D. Thrombosis Deep Vein Personal History (Primary Dx); Depression Major Recurrent (HCC); Hyperlipidemia; Hypertension Essential Primary; Maintenance Health Adult; 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; Restless Leg Syndrome; Personal History Of Infectious And Parasitic Disease (COVID-19); Metabolizer CYP2D6 Rapid; Gastroesophageal Reflux Disease Without Esophagitis; Atrial Fibrillation Paroxysmal (HCC); Asthma Mild Intermittent (HCC); Thrombosis Deep Vein Acute Calf Right (HCC); Monitoring For Therapeutic Drug Therapy 1 Refill Department of Family Medicine, [facility] in [place], [place] [address] [place] [address] Telly Gaines M.D. Med Refill 1 12:43 PM CDT - 1 11:59 PM CDT Hospital Encounter Department of Laboratory Medicine in [address] [phone] Ap Buckley M.D., Ph.D. Atrial Fibrillation Paroxysmal (HCC) Discharge Disposition: Home or Self Care 1 12:42 PM CDT Hospital Encounter Department of Laboratory Medicine in [place], [place] [address] [place] [address] Erinn Johnson, R.N. Atrial Fibrillation Paroxysmal (HCC); 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; Monitoring For Therapeutic Drug Therapy; Thrombosis Deep Vein Acute Calf Right (HCC) Discharge Disposition: Home or Self Care 1 2:30 PM CDT Anticoagulation Visit Department of Anticoagulation in [address] [phone] Erinn Johnson, R.N. Atrial Fibrillation Paroxysmal (HCC) (Primary Dx); Assisted (Current) 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 Treatment; Monitoring For Therapeutic Drug Therapy; Thrombosis Deep Vein Acute Calf Right (HCC) 1 10:00 AM CDT - 1 12:41 PM CDT Hospital Encounter Department of Laboratory Medicine in [address] [phone] Erinn Johnson R.N. Atrial Fibrillation Paroxysmal (HCC); Monitoring For Therapeutic Drug Therapy Discharge Disposition: Home or Self Care 1 4:15 PM CDT Anticoagulation Visit Department of Anticoagulation in [place], [place] [address] [place] [address] Erinn Johnson R.NHarmony Monitoring For Therapeutic Drug Therapy (Primary Dx); Atrial Fibrillation Paroxysmal (HCC); Assisted (Current) 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 Treatment; Thrombosis Deep Vein Acute Calf Right (HCC) 1 10:57 AM CDT - 1 11:59 PM CDT Hospital Encounter Department of Laboratory Medicine in [address] [address] Erinn Johnson R.N. Atrial Fibrillation Paroxysmal (HCC); Assisted (Current) 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 Treatment; Monitoring For Therapeutic Drug Therapy; Thrombosis Deep Vein Acute Calf Right (HCC) Discharge Disposition: Home or Self Care 1 Orders Only RST PCP HLTH Radha De La Torre M.D. 1 10:30 AM CDT Office Visit Department of Family Medicine, [facility], in [place], [place] [address] [place] [address] Jose A Lewis M.D. Hypertensive Heart Disease With Heart Failure (HCC) (Primary Dx) 1 Nurse Triage Department of [facility], [facility], in [place], [place] [address] [place] [address] Estefanía Mejia R.N. Hypertension 1 Orders Only RST PCP HLTH MNT Telly Gaines M.D. Monitoring For Therapeutic Drug Therapy 1 2:00 PM CDT Anticoagulation Visit Department of Anticoagulation in [address] [address] Erinn Johnson R.N. Atrial Fibrillation Paroxysmal (HCC); Assisted (Current) 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 Treatment; Monitoring For Therapeutic Drug Therapy; Thrombosis Deep Vein Acute Calf Right (HCC) 1 2:59 PM CDT - 1 11:59 PM CDT Hospital Encounter Department of Laboratory Medicine in [place], [place] [address] [place] [address] Telly Gaines M.D. Atrial Fibrillation Paroxysmal (HCC) Discharge Disposition: Home or Self Care 1 Orders Only Department of [facility], [place], [place] [address] [place] [address] Telly Gaines M.D. Atrial Fibrillation Paroxysmal (HCC) (Primary Dx) 1 3:30 PM CDT Anticoagulation Visit Department of Anticoagulation in [place] [address] [place] [phone] Erinn Johnson, R.N. Atrial Fibrillation Paroxysmal (HCC); 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; Monitoring For Therapeutic Drug Therapy; Thrombosis Deep Vein Acute Calf Right (HCC) 1 11:45 AM CDT - 1 11:59 PM CDT Hospital Encounter Department of Laboratory Medicine in [place], [place] [address] [place] [address] Erinn Johnson, R.N. Atrial Fibrillation Paroxysmal (HCC); Assisted (Current) 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 Treatment; Monitoring For Therapeutic Drug Therapy; Thrombosis Deep Vein Acute Calf Right (HCC) Discharge Disposition: Home or Self Care 1 Clinical Communication Department of Family [facility], [facility] in [place], [place] [address] [place] [address] Telly Gaines M.D. INR phone visit 1 12:22 PM CDT - 1 11:59 PM CDT Hospital Encounter Department of Radiology in [place], [place] [address] [place] [address] Telly Gaines M.D. Density Breast Discharge Disposition: Home or Self Care 1 Orders Only Department of [facility], [facility] in [place], [place] [address] [place] [address] Telly Gaines M.D. Density Breast (Primary Dx) 1 Clinical Communication Department of Family [facility], [place], [place] [address] [place] [address] Telly Gaines M.D. 1 12:37 PM CDT - 1 11:59 PM CDT Hospital Encounter Department of Radiology in [place], [place] [address] [place] [address] Telly Gaines M.D. Screening Mammogram Breast Cancer Discharge Disposition: Home or Self Care 1 Refill Department of [place], [place] [address] [place] [address] Telly Gaines M.D. Med Refill 1 2:30 PM CDT - 1 11:59 PM CDT Hospital Encounter Department of Laboratory Medicine in [place], [place] [address] [place] [address] Telly Gaines M.D. Atrial Fibrillation Paroxysmal (HCC); Assisted (Current) 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 Treatment; Monitoring For Therapeutic Drug Therapy; Thrombosis Deep Vein Acute Calf Right (HCC) Discharge Disposition: Home or Self Care 1 8:30 AM CDT Anticoagulation Visit Department of Anticoagulation in [address] [address] Atrial Fibrillation Paroxysmal (HCC) (Primary Dx); 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; Monitoring For Therapeutic Drug Therapy; Thrombosis Deep Vein Acute Calf Right (HCC) 1 Orders Only Department of Family Medicine, [facility], in [place], [place] [address] [place] [phone] Karine Boyd APRN, C.N.P., D.N.P. 1 External Outreach Department of Family Medicine, [facility], in [place], [place] [address] [place] [phone] Sameer Bowman D.O. Contact With And (Suspected) Exposure To COVID-19 (Primary Dx) Discharge Disposition: Home or Self Care 1 1:50 PM CDT Nurse Only Urgent Care in [place], [place] [address] [place] [phone] Nereida Emmanuel L.P.N. 1 1:30 PM CDT - 1 11:59 PM CDT Hospital Encounter Department of Radiology in [place], [place] [address] [place] [phone] Karine Boyd APRN C.N.PHarmony, D.N.P. Cough (Concern For Covid-19) Discharge Disposition: Home or Self Care 1 11:30 AM CDT Office Visit [facility] in [facility] [address] [place] [phone] Karine Boyd APRN C.N.P., D.N.P. Bronchitis Chronic (HCC) (Primary Dx); Hypertensive Heart Disease With Heart Failure (HCC); Atrial Fibrillation Paroxysmal (HCC); Personal History Of Infectious And Parasitic Disease (COVID-19); Cough (Concern For Covid-19) 1 4:30 PM CDT Anticoagulation Visit Department of Anticoagulation in [place] [address] [place] [phone] Atrial Fibrillation Paroxysmal (HCC); 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 Treatment; Monitoring For Therapeutic Drug Therapy; Thrombosis Deep Vein Acute Calf Right (HCC) 1 10:34 AM CDT - 1 11:59 PM CDT Hospital Encounter Department of Laboratory Medicine in [place] [address] [place] [phone] Jeffrey Garay P.A.-Mari., P.A. Atrial Fibrillation Paroxysmal (HCC); Assisted 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 Treatment; Monitoring For Therapeutic Drug Therapy; Thrombosis Deep Vein Acute Calf Right (HCC) Discharge Disposition: Home or Self Care 1 Refill Department of [facility], [facility], in [place], [place] [address] [place] [address] Telly Gaines M.D. Med Refill 1 Orders Only Department of Family Medicine, [facility], in [place], [place] [address] [place] [address] Erinn Johnson R.N. Atrial Fibrillation Paroxysmal (HCC) (Primary Dx) 1 Orders Only Department of Cardiovascular Medicine in [place], [place] [address] [place] [address] Ap Buckley M.D., Ph.D. 1 Clinical Communication Department of Anticoagulation in [place], [place] [address] [place] [phone] Debbi Marsh R.N. Anticoagulation 1 4:45 PM CDT Anticoagulation Visit Department of Anticoagulation in [place], [place] [address] [place] [phone] Atrial Fibrillation Paroxysmal (HCC); Assisted 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 Treatment; Monitoring For Therapeutic Drug Therapy; Thrombosis Deep Vein Acute Calf Right (HCC) 1 Clinical Communication Department of Anticoagulation in [place], [place] [address] [place] [address] Jeffrey Garay P.A.-C., P.A. Anticoagulation (Yearly referral-SEMN ) 1 Orders Only Department of Orthopedic Surgery in [place], [place] [address] [place] [address] Ruba Duvall M.D. Primary Osteoarthritis Knee Right (Primary Dx) 1 Patient Self-Triage [facility] Symptom Solar Process Engineer, Provider 1 Patient Self-Triage [facility] Symptom Solar Process Engineer, Provider 1 Patient Self-Triage [facility] Symptom Solar Process Engineer, Provider 1 Orders Only Department of Family Medicine, [facility], in [place], [place] [address] [place] [address] Telly Gaines M.D. Restless Leg Syndrome (Primary Dx) 1 8:37 AM CDT - 1 11:59 PM CDT Hospital Encounter Department of Laboratory Medicine in [place], [place] [address] [place] [address] Telly Gaines M.D. Hyperlipidemia Discharge Disposition: Home or Self Care 1 9:00 AM CDT Anticoagulation Visit Department of Anticoagulation in [address] [phone] Jeffrey Garay P.A.-C., P.A. Monitoring For Therapeutic Drug Therapy; Assisted 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 Treatment; Atrial Fibrillation Paroxysmal (HCC); Thrombosis Deep Vein Acute Calf Right (HCC) 1 Clinical Communication Department of [facility], [facility], in [place], [place] [address] [place] [address] Telly Gaines M.D. Appointment (billy) 1 12:00 PM CDT Office Visit [facility] in [place], [place] [address] [place] [phone] Storm Mcgee M.D. Sleep Apnea (Primary Dx); Inadequate Sleep Hygiene 1 10:00 AM CDT Virtual Visit Department of Cardiovascular Medicine in [place], [place] [address] [place] [phone] Ap Buckley M.D., Ph.D. Atrial Fibrillation Paroxysmal (HCC) (Primary Dx) 1 9:39 AM CDT - 1 11:59 PM CDT Hospital Encounter Department of Laboratory Medicine in [address] [phone] Ap Buckley M.D., Ph.D. Atrial Fibrillation Paroxysmal (HCC) Discharge Disposition: Home or Self Care 1 9:39 AM CDT - 1 11:59 PM CDT Hospital Encounter Department of Laboratory Medicine in [place], [place] [address] [place] [address] Ap Buckley M.D., Ph.D. Atrial Fibrillation Paroxysmal (HCC) Discharge Disposition: Home or Self Care 1 9:15 AM CDT Anticoagulation Visit Department of Anticoagulation in [place], [place] [address] [place] [address] Jeffrey Garay P.A.-C., P.A. Monitoring For Therapeutic Drug Therapy; 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 Treatment; Atrial Fibrillation Paroxysmal (HCC); Thrombosis Deep Vein Acute Calf Right (HCC) 1 Orders Only RST PCP [facility] Delgado Billy Jr., M.D. 1 Refill [facility] in [place], [place] [address] [place] [address] Telly Gaines M.D. Med Refill 1 8:45 AM COOK STARCH Anticoagulation Visit Department of Anticoagulation in [address] [address] Jeffrey Garay P.A.-C., P.A. Monitoring For Therapeutic Drug Therapy; 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 Treatment; Atrial Fibrillation Paroxysmal (HCC); Thrombosis Deep Vein Acute Calf Right (HCC) 1 8:30 AM COOK STARCH Office Visit Department of Orthopedic Surgery in [place], [place] [address] [place] [address] Ronaldo Moore M.D. Primary Osteoarthritis Knee Right (Primary Dx) 1 4:00 PM COOK STARCH Telemedicine [facility] in [place], [place] [address] [place] [address] Silvino Pineda D.O., M.S. Sleep Apnea (Primary Dx); Dyspnea 1 Clinical Communication Department of Orthopedic Surgery in [place], [place] [address] [place] [address] Ronaldo Moore M.D. COVID Inquiry 1 1:10 PM COOK STARCH Comprehensive Visit Division of Gastroenterology in [place], [place] [address] [place] [address] Eli Morin M.B., B.Ch. Evert Roberts M.D. Gastroesophageal Reflux Disease Without Esophagitis 1 9:10 AM COOK STARCH - 1 11:59 PM COOK STARCH Hospital Encounter Department of Laboratory Medicine and Pathology, [facility] in [place], [place] [address] [place] [address] Eli Morin M.B., B.Ch. Dyspnea Discharge Disposition: Home or Self Care 1 9:00 AM COOK STARCH Diagnostic Division of Pulmonary Medicine in [place], [place] [address] [place] [address] Eli Morin M.B., B.Ch. Dyspnea 1 Clinical Communication Department of Family Medicine, [facility], in [address] [address] Jeffrey Garay P.A.-C., P.A. Anticoagulation 1 10:00 AM COOK STARCH Anticoagulation Visit Department of Anticoagulation in [address] [address] Jeffrey Garay P.A.-C., P.A. Monitoring For Therapeutic Drug Therapy; 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 Treatment; Atrial Fibrillation Paroxysmal (HCC); Thrombosis Deep Vein Acute Calf Right (HCC) 1 1:00 PM COOK STARCH Diagnostic Division of Pulmonary Medicine in [place], [place] [address] [place] [address] Eli Morin M.B., B.Ch. Cough 1 4:00 PM COOK STARCH Office Visit Division of Pulmonary Medicine in [place], [place] [address] [place] [address] Eli Morin M.B., B.Ch. Dyspnea (Primary Dx) 1 Clinical Communication Division of Gastroenterology in [place], [place] [address] [place] [address] Provider, Unknown 0 Clinical Communication Division of Pulmonary Medicine in [place], [place] [address] [place] [address] Eli Morin M.B., B.Ch. COVID Inquiry 0 Refill Department of Family [facility], [facility], in [place], [place] [address] [place] [address] Telly Gaines M.D. Med Refill 0 9:45 AM COOK STARCH Anticoagulation Visit Department of Anticoagulation in [place], [place] [address] [place] [address] Jeffrey Garay, Chadwick.-Mari., P.A. Monitoring For Therapeutic Drug Therapy; 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 Treatment; Atrial Fibrillation Paroxysmal (HCC); Thrombosis Deep Vein Acute Calf Right (HCC) 0 Orders Only RST PCP [facility] MNT Telly Gaines M.D. 0 Orders Only Department of Cardiovascular Medicine in [place], [place] [address] [place] [phone] Ap Buckley M.D., Ph.D. Atrial Fibrillation Paroxysmal (HCC) (Primary Dx) 0 Orders Only Division of Pulmonary Medicine in [place], [place] [address] [place] [address] Eli Morin M.B., B.Ch. Hernia Hiatal (Primary Dx) 0 Refill Department of Cardiovascular Medicine in [place], [place] [address] [place] [phone] Ap Buckley M.D., Ph.D. Med Refill 0 Clinical Communication Department of Cardiovascular Medicine in [place], [place] [address] [place] [phone] Ap Buckley M.D., Ph.D. Out of sotalol (Communication) 0 2:22 PM COOK STARCH - 0 11:59 PM COOK STARCH Hospital Encounter Department of Radiology, [facility], in [place], [place] [address] [place] [address] Eli Morin M.B., B.Ch. Gastroesophageal Reflux Disease Without Esophagitis Discharge Disposition: Home or Self Care 0 11:30 AM COOK STARCH Anticoagulation Visit Department of Anticoagulation in [address] [phone] Jeffrey Garay P.A.-C., P.A. Monitoring For Therapeutic Drug Therapy; 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 Treatment; Atrial Fibrillation Paroxysmal (HCC); Thrombosis Deep Vein Acute Calf Right (HCC) 0 Remote Monitoring Remote Patient Monitoring [facility] [address] [place] [address] Marlee Fowler Complex Care Coordination (September) 0 Clinical Communication Division of Pulmonary Medicine in [place], [place] [address] [place] [phone] Eli Morin M.B., B.Ch. 0 11:53 AM COOK STARCH - 0 11:59 PM COOK STARCH Hospital Encounter Department of Radiology, [facility], in [place], [place] [address] [place] [address] Eli Morin M.B., B.Ch. Respiratory Infection Type Unknown Due To COVID-19; Cough; Other Dyspnea Discharge Disposition: Home or Self Care 0 1:30 PM COOK STARCH Comprehensive Visit Division of Pulmonary Medicine in [place], [place] [address] [place] [phone] Eli Morin M.B., B.Ch. Gastroesophageal Reflux Disease Without Esophagitis (Primary Dx); Respiratory Infection Type Unknown Due To COVID-19; Bronchitis Chronic (HCC); Cough; Other Dyspnea 0 3:00 PM COOK STARCH Virtual Visit Department of Cardiovascular Medicine in [place], [place] [address] [place] [phone] Ap Buckley M.D., Ph.D. Atrial Fibrillation Paroxysmal (HCC) 0 1:30 PM [facility] Anticoagulation Visit Department of Anticoagulation in [place], [place] [address] [place] [phone] Telly Gaines M.D. Atrial Fibrillation Paroxysmal (HCC); Assisted 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 Treatment; Monitoring For Therapeutic Drug Therapy; Thrombosis Deep Vein Acute Calf Right (HCC) 0 Remote Monitoring Remote Patient Monitoring [facility] [address] [place] [address] Nedra Boyd Complex Care Coordination (August) 0 9:15 AM [facility] Anticoagulation Visit Department of Anticoagulation in [address] [address] Jeffrey Garay, PRomario.-Mari., P.A. Assisted 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 Treatment (Primary Dx); Monitoring For Therapeutic Drug Therapy; Atrial Fibrillation Paroxysmal (HCC); Thrombosis Deep Vein Acute Calf Right (HCC) 0 Orders Only Department of Family Medicine, [facility], in [place], [place] [address] [place] [address] Telly Gaines M.D. Cough (Primary Dx) 0 Patient Self-Triage [facility] Symptom Solar Process Engineer, Provider 0 Patient Self-Triage [facility] Symptom Solar Process Engineer, Provider 0 Patient Self-Triage [facility] Symptom Solar Process Engineer, Provider 0 Remote Monitoring Remote Patient Monitoring [facility] [address] [place] [address] Bridget Fairbanks R.N. COVID-19 Remote Patient Monitoring 0 Remote Monitoring Remote Patient Monitoring [facility] [address] [place] [address] Hannah Crook 0 1:45 PM [facility]ARCH Anticoagulation Visit Department of Anticoagulation in [place], [place] [address] [place] [phone] Telly Gaines M.D. Atrial Fibrillation Paroxysmal (HCC); 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 Treatment; Monitoring For Therapeutic Drug Therapy; Thrombosis Deep Vein Acute Calf Right (HCC) 0 Remote Monitoring Remote Patient Monitoring [facility] [address] [place] [address] Bridget Fairbanks RHarmonyN. COVID-19 Remote Patient Monitoring; Symptom Assessment 0 Remote Monitoring Remote Patient Monitoring [facility] [address] [place] [address] Aileen Hayward R.NHarmony COVID-19 Remote Patient Monitoring; Symptom Assessment 0 2:45 PM [facility]ARCH Anticoagulation Visit Department of Anticoagulation in [place], [place] [address] [place] [phone] Telly Gaines M.D. Atrial Fibrillation Paroxysmal (HCC); 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 Treatment; Monitoring For Therapeutic Drug Therapy; Thrombosis Deep Vein Acute Calf Right (HCC) 0 Remote Monitoring Remote Patient Monitoring [facility] [address] [place] [address] Marlee Fowler Complex Care Coordination (August) 0 Remote Monitoring Remote Patient Monitoring [facility] [address] [place] [address] Ese Sanchez COVID-19 Remote Patient Monitoring; Symptom Assessment 0 8:30 AM CDT Clinical Communication Department of [facility], [place], [place] [address] [place] [address] Telly Gaines M.D. COVID-19 Remote Patient Monitoring (Discussed progress and recent labs and INR - can call me directly over the weekend) 0 Orders Only Department of Family Medicine, [place], [place] [address] [place] [address] Telly Gaines M.D. 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 Treatment (Primary Dx); COVID-19 Infection 0 Remote Monitoring Remote Patient Monitoring [facility] [address] [place] [address] Lani Glasgow RHarmonyNHarmony COVID-19 Remote Patient Monitoring; Symptom Assessment 0 1:00 PM CDT Anticoagulation Visit Department of Anticoagulation in [place], [place] [address] [place] [address] Telly Gaines M.D. Atrial Fibrillation Paroxysmal (HCC); Assisted 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 Treatment; Monitoring For Therapeutic Drug Therapy; Thrombosis Deep Vein Acute Calf Right (HCC) 0 11:40 AM CDT - 0 11:59 PM CDT Hospital Encounter Department of Laboratory Medicine in [place], [place] [address] [place] [address] Telly Gaines M.D. Atrial Fibrillation Paroxysmal (HCC); Assisted 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 Treatment; Monitoring For Therapeutic Drug Therapy; Thrombosis Deep Vein Acute Calf Right (HCC); Viral Syndrome; Anemia; Pneumonia Due To COVID-19 Discharge Disposition: Home or Self Care 0 4:15 PM CDT Anticoagulation Visit Department of Anticoagulation in [place], [place] [address] [place] [address] Atrial Fibrillation Paroxysmal (HCC); Assisted 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 Treatment; Monitoring For Therapeutic Drug Therapy; Thrombosis Deep Vein Acute Calf Right (HCC) 0 Remote Monitoring Remote Patient Monitoring [facility] [address] [place] [address] Alivia Garcia, R.N. COVID-19 Remote Patient Monitoring; Follow-up 0 3:00 PM CDT Virtual Visit Department of Family Medicine, [place], [place] [address] [place] [address] Telly Gaines M.D. Viral Syndrome (Primary Dx); Anemia; Pneumonia Due To COVID-19 0 Remote Monitoring Remote Patient Monitoring [facility] [address] [place] [address] Ese Juarez, R.N. COVID-19 Remote Patient Monitoring; Symptom Assessment 0 Refill Department of Family [facility], [place], [place] [address] [place] [phone] Telly Gaines M.D. Med Refill 0 Remote Monitoring Remote Patient Monitoring [facility] [address] [place] [address] Ese Sanchez 0 Clinical Communication [facility] [address] [place] [phone] Kanchan Varela P.A.-C., M.S. Post Hospital Follow-up 0 11:15 AM CDT Internal E-Consult Division of General Internal Medicine in [place], [place] [address] [place] [phone] Kanchan Varela P.A.-C., M.S. Sarah Woods M.D. COVID-19 Infection 0 Orders Only Department of Anticoagulation in [place], [place] [address] [place] [address] Lanette Baird Thrombosis Deep Vein Acute Calf Right (HCC) (Primary Dx); Atrial Fibrillation Paroxysmal (HCC); Monitoring For Therapeutic Drug Therapy; Assisted 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 Treatment 0 Clinical Communication [facility] [address] [place] [phone] Kanchan Varela P.A.-C., M.S. Pre-visit Testing Orders 0 Clinical Communication [facility] [address] [place] [phone] Kanchan Varela P.A.-C., M.S. Post Hospital Follow-up 0 12:18 AM CDT - 0 2:23 PM CDT Emergency [facility], Sixth Floor [address] [place] [address] Yuniel Garner M.D., Ph.D. Matthew Yip M.D. Kirchoff, Robert W, M.D., M.S. COVID-19 Infection (Primary Dx); Pneumonia Due To COVID-19; Dehydration; Assisted 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 Treatment; Atrial Fibrillation Paroxysmal (HCC); Depression Major Recurrent (HCC); Thrombosis Deep Vein Acute Calf Right (HCC); Monitoring For Therapeutic Drug Therapy Discharge Disposition: Home or Self Care 0 Intake [facility] 0 Remote Monitoring [facility] [address] [place] [address] Elenita Borrero R.N. COVID-19 Remote Patient Monitoring 0 Remote Monitoring Remote Patient Monitoring [facility] [address] [place] [address] Collette Eldridge, R.N. COVID-19 Remote Patient Monitoring; Symptom Assessment 0 Remote Monitoring Remote Patient Monitoring [facility] [address] [place] [address] Arely Bryant, R.N. COVID-19 Remote Patient Monitoring; Symptom Assessment 0 Remote Monitoring Remote Patient Monitoring [facility] [address] [place] [address] Yocasta Contreras R.N. COVID-19 Remote Patient Monitoring; Follow-up 0 Documentation Remote Patient Monitoring [facility] [address] [place] [address] Nedra Ford 0 Remote Monitoring Remote Patient Monitoring [facility] [address] [place] [address] Rayne Mederos, R.N. COVID-19 Remote Patient Monitoring; Vital Sign Readings 0 Remote Monitoring Remote Patient Monitoring [facility] [address] [place] [address] Justina Dominguez, R.N. COVID-19 Remote Patient Monitoring; Symptom Assessment 0 Remote Monitoring Remote Patient Monitoring [facility] [address] [place] [address] Raquel [place], R.N. COVID-19 Remote Patient Monitoring; Symptom Assessment 0 Remote Monitoring Remote Patient Monitoring [facility] [address] [place] [address] Rosenda David, R.N. COVID-19 Remote Patient Monitoring; Symptom Assessment 0 Remote Monitoring Remote Patient Monitoring [facility] [address] [place] [address] Nicole Zepeda, R.N. COVID-19 Remote Patient Monitoring; Intake Assessment 0 Remote Monitoring Remote Patient Monitoring [facility] [address] [place] [address] Radha Nascimento COVID-19 Remote Patient Monitoring; Welcome Call; Patient Education (COVID Complex Care packet, Welcome letter and Service Terms agreement mailed ) 0 Remote Monitoring Remote Patient Monitoring [facility] [address] [place] [address] Radha Nascimento COVID-19 Remote Patient Monitoring; Welcome Call 0 Episode Changes Remote Patient Monitoring [facility] [address] [place] [address] JonnieJessicaRuth A RHTRISTON 0 Remote Monitoring Remote Patient Monitoring [facility] [address] [place] [address] Radha Newton R.N. COVID-19 Remote Patient Monitoring 0 Virtual Visit Division of General Internal Medicine in [place], [place] [address] [place] [address] César Paris M.B., Ch.B. COVID-19 Infection (Primary Dx) 0 Clinical Communication Department of Anticoagulation in [place], [place] [address], [place] [address] Telly Gaines M.D. Anticoagulation (INR recheck) 0 Clinical Communication [facility] [place] [address] [place] [address] Lani Maldonado RPreeti COVGILLES Nurse Line 0 Clinical Communication [facility], [place], [place] [address] [place] [address] Hannah Cota R.N. COVGILLES Nurse Line 0 Clinical Communication [facility], [place], [place] [address] [place] [address] Zeinab Grossman R.N. COVID Nurse Line 0 9:42 AM CDT - 0 1:09 PM CDT Emergency [facility] Emergency Department [address] [place] [phone] Ap Laws M.D. Cough (Primary Dx); Hoarseness Discharge Disposition: Home or Self Care 0 1:30 PM CDT Telemedicine Department of Family Medicine, [facility], in [place], [place] [address] [place] [phone] Adan Keenan M.D. Cough (Primary Dx) 0 9:00 AM CDT Anticoagulation Visit Department of Anticoagulation in [place], [place] [address] [place] [phone] Jeffrey aGray P.A.-C., P.A. Monitoring For Therapeutic Drug Therapy (Primary Dx); Thrombosis Deep Vein Acute Calf Right (HCC); 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 Treatment; Atrial Fibrillation Paroxysmal (HCC) 0 2:15 PM CDT Anticoagulation Visit Department of Anticoagulation in [address] [phone] Jeffrey Garay P.A.-C., P.A. Thrombosis Deep Vein Acute Calf Right (HCC); Monitoring For Therapeutic Drug Therapy; Assisted 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 Treatment; Atrial Fibrillation Paroxysmal (HCC) 0 1:00 PM CDT Office Visit Urgent Care in [address] [phone] Mason Mari P.A.-C. Cough 0 External Outreach Department of Internal Medicine in [address] [phone] Sameer Bowman D.O. Infection Upper Respiratory (Primary Dx) Discharge Disposition: Home or Self Care 0 Orders Only Urgent Care in [address] [address] Mason Mari P.A.-C. Cough (Primary Dx) 0 2:45 PM CDT Anticoagulation Visit Department of Anticoagulation in [address] [phone] Roethler, Jeffrey L, P.A.-C., P.A. Thrombosis Deep Vein Acute Calf Right (HCC); Monitoring For Therapeutic Drug Therapy; 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 Treatment; Atrial Fibrillation Paroxysmal (HCC) 0 9:45 AM CDT Anticoagulation Visit Department of Anticoagulation in [address] [address] Jeffrey Garay P.A.-C., P.A. Thrombosis Deep Vein Acute Calf Right (HCC); Monitoring For Therapeutic Drug Therapy; Assisted 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 Treatment; Atrial Fibrillation Paroxysmal (HCC) 0 8:45 AM CDT Comprehensive Visit Division of Community Internal [facility], [place], [place] [address] [place] [phone] Telly Gaines M.D. Carol Mcgee APRN, C.NHarmonyP., M.S.N. Lesion Vulva (Primary Dx); Vaginitis 0 Refill Department of Family Medicine, [facility] in [place], [place] [address] [place] [address] Telly Gaines M.D. Med Refill 0 1:15 PM CDT Anticoagulation Visit Department of Anticoagulation in [address] [phone] Jeffrey Garay P.A.-C., P.A. Thrombosis Deep Vein Acute Calf Right (HCC); Monitoring For Therapeutic Drug Therapy; 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 Treatment; Atrial Fibrillation Paroxysmal (HCC) 0 9:45 AM CDT Anticoagulation Visit Department of Anticoagulation in [address] [phone] Jeffrey Garay P.A.-C., P.A. Thrombosis Deep Vein Acute Calf Right (HCC); Monitoring For Therapeutic Drug Therapy; 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 Treatment; Atrial Fibrillation Paroxysmal (HCC) 0 Clinical Communication Department of Cardiovascular Medicine in [place], [place] [address] [place] [phone] Ap Buckley M.D., Ph.D. COVMI Nurse Line 0 2:47 PM CDT - 0 3:19 PM CDT Hospital Encounter Department of Laboratory Medicine and Pathology, [place], [place] [address] [place] [address] Telly Gaines M.D. Screening Cancer Colon Discharge Disposition: Home or Self Care 0 3:20 PM CDT - 0 11:59 PM CDT Hospital Encounter Department of Radiology in [place], [place] [address] [place] [address] Telly Gaines M.D. Screening Mammogram Breast Cancer Discharge Disposition: Home or Self Care 0 Orders Only Department of Family Medicine, [place], [place] [address] [place] [address] Telly Gaines M.D. Screening Cancer Colon (Primary Dx) 0 9:15 AM CDT Anticoagulation Visit Department of Anticoagulation in [place], [place] [address] [place] [phone] Jeffrey Garay P.A.-C., P.A. Thrombosis Deep Vein Acute Calf Right (HCC); Monitoring For Therapeutic Drug Therapy; Assisted 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 Treatment; Atrial Fibrillation Paroxysmal (HCC) 0 Refill Department of Family Medicine, [facility] in [place], [place] [address] [place] [address] Telly Gaines M.D. Med Refill 0 Orders Only [facility] Telly Gaines M.D. Screening Mammogram Breast Cancer 0 9:15 AM CDT Anticoagulation Visit Department of Anticoagulation in [place], [place] [address] [address] Jeffrey Garay P.A.-C., P.A. Thrombosis Deep Vein Acute Calf Right (HCC); Monitoring For Therapeutic Drug Therapy; Assisted 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 Treatment; Atrial Fibrillation Paroxysmal (HCC) 0 Orders Only Department of Cardiovascular Medicine in [place], [place] [address] [place] [phone] Ap Buckley M.D., Ph.D. Atrial Fibrillation (HCC) (Primary Dx) 0 Documentation Department of Cardiovascular Medicine in [place], [place] [address] [place] [phone] Ap Buckley M.D., Ph.D. 0 10:20 AM CDT - 0 11:59 PM CDT Hospital Encounter Department of Laboratory Medicine in [place], [place] [address] [place] [phone] Ap Buckley M.D., Ph.D. Atrial Fibrillation (HCC) Discharge Disposition: Home or Self Care 0 10:10 AM CDT - 0 10:19 AM CDT Hospital Encounter Department of Laboratory Medicine in [place], [place] [address] [place] [phone] Ap Buckley M.D., Ph.D. Atrial Fibrillation (HCC) Discharge Disposition: Home or Self Care 0 Orders Only Department of Cardiovascular Medicine in [place], [place] [address] [place] [phone] Ap Buckley M.D., Ph.D. Atrial Fibrillation (HCC) (Primary Dx) 0 Refill [facility], Fourth Floor [address] [place] [phone] Ap Buckley M.D., Ph.D. Med Refill 0 Refill Department of [facility], in [place], [place] [address] [place] [address] Telly Gaines M.D. Med Refill 0 2:45 PM CDT Anticoagulation Visit Department of Anticoagulation in [place], [place] [address] [place] [phone] Jeffrey Garay P.A.-C., P.A. Atrial Fibrillation Paroxysmal (HCC); Assisted 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 Treatment; Monitoring For Therapeutic Drug Therapy; Thrombosis Deep Vein Acute Calf Right (HCC) 0 Clinical Communication Department of Anticoagulation in [place] [address] [place] [phone] Matilde Cooper R.N. Anticoagulation 0 9:30 AM [facility] Anticoagulation Visit Department of Anticoagulation in [address] [address] Jeffrey Garay P.A.-C., P.A. Thrombosis Deep Vein Acute Calf Right (HCC); Monitoring For Therapeutic Drug Therapy; Assisted 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 Treatment; Atrial Fibrillation Paroxysmal (HCC) 0 9:00 AM [facility]ARCH Anticoagulation Visit Department of Anticoagulation in [address] [address] Jeffrey Garay P.A.-C., P.A. Thrombosis Deep Vein Acute Calf Right (HCC); Monitoring For Therapeutic Drug Therapy; 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 Treatment; Atrial Fibrillation Paroxysmal (HCC) 0 10:15 AM [facility] Anticoagulation Visit Department of Anticoagulation in [address] [address] Jeffrey Garay P.A.-C., P.A. Thrombosis Deep Vein Acute Calf Right (HCC); Monitoring For Therapeutic Drug Therapy; 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 Treatment; Atrial Fibrillation Paroxysmal (HCC) 0 10:30 AM [facility] Anticoagulation Visit Department of Anticoagulation in [address] [address] Jeffrey Garay P.A.-C., P.A. Thrombosis Deep Vein Acute Calf Right (HCC); Monitoring For Therapeutic Drug Therapy; 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 Treatment; Fibrillation Atrial Paroxysmal (HCC) 0 11:00 AM [facility] Office Visit Department of Family Medicine in [address] [address] Jeffrey Garay P.A.-C., P.A. Dysuria (Primary Dx); Urgency Urinary; Neuropathy 9 Refill Department of Anticoagulation in [place], [place] [address], [place] [address] Telly Gaines M.D. Med Refill 9 Refill Department of Anticoagulation in [address] [address] Telly Gaines M.D. Med Refill 9 1:00 PM C[facility] STARCH Anticoagulation Visit Department of Anticoagulation in [address] [address] Jeffrey Garay P.A.-C., P.A. Thrombosis Deep Vein Acute Calf Right (HCC); Monitoring For Therapeutic Drug Therapy; 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 Treatment; Fibrillation Atrial Paroxysmal (HCC) 9 Refill Department of Anticoagulation in [address] [address] Jeffrey Garya P.A.-C., P.A. Med Refill 9 Refill [facility], Fourth Floor [address] [place] [phone] Ap Buckley M.D., Ph.D. Med Refill 9 Orders Only Department of Cardiovascular Medicine in [address] [address] Ap Buckley M.D., Ph.D. 9 Refill [facility], Fourth Floor [facility] [place] [phone] Ap Buckley M.D., Ph.D. Med Refill 9 9:30 AM [facility]ARCH Anticoagulation Visit Department of Anticoagulation in [address] [address] Jeffrey Garay P.A.-C., P.A. Thrombosis Deep Vein Acute Calf Right (HCC); Monitoring For Therapeutic Drug Therapy; 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 Treatment; Fibrillation Atrial Paroxysmal (HCC) 9 Refill Department of Family Medicine, [place], [place] [address] [place] [address] Telly Gaines M.D. Med Refill 9 Orders Only Department of Anticoagulation in [place], [place] [address], [place] [address] Matilde Cooper R.N. Fibrillation Atrial Paroxysmal (HCC) (Primary Dx); Thrombosis Deep Vein Acute Calf Right (HCC); Assisted 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 Treatment; Monitoring For Therapeutic Drug Therapy 9 9:30 AM CDT Anticoagulation Visit Department of Anticoagulation in [place], [place] [address] [place] [address] Telly Gaines M.D. Thrombosis Deep Vein Acute Calf Right (HCC); Monitoring For Therapeutic Drug Therapy; 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 Treatment 9 Refill Department [facility], [place], [place] [address] [place] [address] Telly Gaines M.D. Med Refill 9 10:00 AM CDT Anticoagulation Visit Department of Anticoagulation in [place], [place] [address] [place] [address] Telly Gaines M.D. Thrombosis Deep Vein Acute Calf Right (HCC); Monitoring For Therapeutic Drug Therapy; Assisted 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 Treatment 9 1:15 PM CDT Office Visit Department of Orthopedic Surgery in [place], [place] [address] [place] [address] Ronaldo Moore M.D. Primary Osteoarthritis Knee Right 9 10:42 AM CDT - 9 11:59 PM CDT Hospital Encounter Department of Laboratory Medicine and Pathology, [facility] in [place], [place] [address] [place] [address] Storm Iqbal P.A.-C., M.S. Fibrillation Atrial Paroxysmal (HCC); Primary Osteoarthritis Knee Right; Hyperlipidemia Discharge Disposition: Home or Self Care 9 12:00 PM CDT Education Department of Orthopedic Surgery in [place], [place] [address] [place] [address] Storm Iqbal P.A.-C., M.S. Primary Osteoarthritis Knee Right 9 Clinical Communication Department of Family Medicine in [place], [place] [address] [place] [address] Maci Velasco Pharm.D., R.Ph., [facility] 9 9:10 AM CDT - 9 9:19 AM CDT Hospital Encounter Department of Laboratory Medicine and Pathology, [place], [place] [address] [place] [address] Storm Iqbal P.A.-C., M.S. Primary Osteoarthritis Knee Right Discharge Disposition: Home or Self Care 9 9:20 AM CDT - 9 11:59 PM CDT Hospital Encounter Department of Laboratory Medicine and Pathology, [place], [place] [address] [place] [phone] Storm Iqbal P.A.-C., M.S. Primary Osteoarthritis Knee Right Discharge Disposition: Home or Self Care 9 8:30 AM CDT Office Visit Department of Family Medicine, [place], [place] [address] [place] [address] Telly Gaines M.D. Viral Syndrome (Primary Dx); Thrombosis Deep Vein Acute Calf Right (HCC); Sleep Apnea; Primary Osteoarthritis Knee Right; Metabolizer CY Poor; Metabolizer CYP2D6 Rapid; Maintenance Health Adult; 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 Treatment; Hypertensive Heart Disease With Heart Failure (HCC); Hyperlipidemia; Depression Major Recurrent (HCC) 9 Clinical Communication Department of Orthopedic Surgery in [place], [place] [address] [place] [address] Ronnie Chi R.N. dismissal planning 9 10:00 AM CDT Anticoagulation Visit Department of Anticoagulation in [address] [address] Telly Gaines M.D. Thrombosis Deep Vein Acute Calf Right (HCC); Monitoring For Therapeutic Drug Therapy; Assisted 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 Treatment 9 Documentation Department of Cardiovascular Medicine in [place], [place] [address] [place] [address] Ap Buckley M.D., Ph.D. 9 Orders Only Department of Cardiovascular Medicine in [place], [place] [address] [place] [address] Ap Buckley M.D., Ph.D. 9 Clinical Communication Department of Family Medicine, [facility], in [place], [place] [address] [place] [address] Telly Gaines M.D. Appointment (Billy order) 9 9:30 AM CDT Anticoagulation Visit Department of Anticoagulation in [address] [address] Jeffrey Garay P.A.-C., P.A. Fibrillation Atrial (HCC); Monitoring For Therapeutic Drug Therapy; 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 Treatment; 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 Therapy; Thrombosis Deep Vein Acute Calf Right (HCC) 9 10:38 AM CDT - 9 11:59 PM CDT Hospital Encounter Department of Radiology in [place], [place] [address] [place] [address] Oxana Boone APRN, C.N.P., M.S. Pain Breast Discharge Disposition: Home or Self Care 9 9:35 AM CDT - 9 10:37 AM CDT Hospital Encounter Department of Radiology in [place], [place] [address] [place] [address] Oxana Boone APRN, C.N.Fredrick, M.S. Pain Breast Discharge Disposition: Home or Self Care 9 1:30 PM CDT Office Visit Department [place], [place] [address] [place] [phone] Oxana Boone APRN, C.N.Fredrick, M.S. Pain Breast (Primary Dx); Sleep Apnea 9 Nurse Triage Department [place], [place] [address] [place] [phone] Charisma Romero M.S.N., R.N. 9 Orders Only RST PCP HLTH MNT Telly Gaines M.D. Hyperlipidemia 9 9:15 AM CDT Anticoagulation Visit Department of Anticoagulation in [address] [address] Telly Gaines M.D. Thrombosis Deep Vein Acute Calf Right (HCC); Monitoring For Therapeutic Drug Therapy; 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 Treatment 9 Clinical Communication Department [place], [place] [address] [place] [phone] Telly Gaines M.D. Appointment (billy) 9 9:00 AM CDT Anticoagulation Visit Department of Anticoagulation in [address] [address] Jeffrey Garay P.A.-C., P.A. Fibrillation Atrial (HCC); Monitoring For Therapeutic Drug Therapy; 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 Treatment; 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 Therapy; Thrombosis Deep Vein Acute Calf Right (HCC) 9 Orders Only Department of Orthopedic Surgery in [place], [place] [address] [place] [phone] Storm Iqbal P.A.-C., M.S. Primary Osteoarthritis Knee Right (Primary Dx) 9 Clinical Communication Department of Orthopedic Surgery in [place], [place] [address] [place] [phone] Ronaldo Moore M.D. schedule surgery (right total knee arthroplasty ); Communication 9 Refill Department of Family Medicine, [facility] in [place], [place] [address] [place] [address] Telly Gaines M.D. Med Refill 9 10:55 AM CDT - 9 11:13 AM CDT Hospital Encounter Department of Radiology, [facility] in [place], [place] [address] [place] [address] Ap Buckley M.D., Ph.D. Pain Chest Discharge Disposition: Home or Self Care 9 4:00 PM CDT Office Visit Department of Cardiovascular Medicine in [place], [place] [address] [place] [address] Ap Buckley M.D., Ph.D. Fibrillation Atrial Paroxysmal (HCC) (Primary Dx) 9 12:28 PM CDT - 9 1:49 PM CDT Hospital Encounter Department of Radiology, [facility] in [place], [place] [address] [place] [address] Ap Buckley M.D., Ph.D. Discharge Disposition: Home or Self Care 9 12:20 PM CDT - 9 12:27 PM CDT Hospital Encounter Department of Cardiovascular Diseases in [place], [place] [address] [place] [address] Ap Buckley M.D., Ph.D. Discharge Disposition: Home or Self Care 9 11:14 AM CDT - 9 12:19 PM CDT Hospital Encounter Department of Radiology, [facility] in [place], [place] [address] [place] [phone] Ap Buckley M.D., Ph.D. Other Heart Disorders In Diseases Classified Elsewhere Discharge Disposition: Home or Self Care 9 1:50 PM CDT - 9 11:59 PM CDT Hospital Encounter Department of Cardiovascular Diseases in [place], [place] [address] [place] [address] Ap Buckley M.D., Ph.D. Pain Chest Discharge Disposition: Home or Self Care 9 11:40 AM CDT - 9 11:59 PM CDT Hospital Encounter Department of Laboratory Medicine and Pathology, [facility] in [place], [place] [address] [place] [address] Ap Buckley M.D., Ph.D. Fibrillation Atrial (HCC) Discharge Disposition: Home or Self Care 9 11:00 AM CDT - 9 11:39 AM CDT Hospital Encounter Department of Cardiovascular Diseases in [place], [place] [address] [place] [address] Ap Buckley M.D., Ph.D. Pain Chest Discharge Disposition: Home or Self Care 9 9:30 AM CDT Anticoagulation Visit Department of Anticoagulation in [address] [address] eTlly Gaines M.D. Thrombosis Deep Vein Acute Calf Right (HCC); Monitoring For Therapeutic Drug Therapy; Assisted 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 Treatment 9 3:45 PM CDT Anticoagulation Visit Department of Anticoagulation in [address] [address] Telly Gaines M.D. Thrombosis Deep Vein Acute Calf Right (HCC); Monitoring For Therapeutic Drug Therapy; Assisted 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 Treatment 9 Orders Only Department of Cardiovascular Medicine in [address] [address] Ap Buckley M.D., Ph.D. Fibrillation Atrial (HCC) (Primary Dx); Other Heart Disorders In Diseases Classified Elsewhere; Pain Chest 9 3:00 PM CDT Office Visit Department of Cardiovascular Medicine in [address] [address] Ap Buckley M.D., Ph.D. Fibrillation Atrial Paroxysmal (HCC) (Primary Dx) 9 10:30 AM CDT Comprehensive Visit Department of Orthopedic Surgery in [place], [place] [address] [place] [address] Ronaldo Moore M.D. Primary Osteoarthritis Knee Right 9 Clinical Communication Department of [facility] in [place], [place] [address] [place] [address] Telly Gaines M.D. Med Question (billy/pharamcy call) 9 Clinical Communication Department of Cardiovascular Medicine in [address] [address] Ap Buckley M.D., Ph.D. 9 2:00 PM CDT Anticoagulation Visit Department of Anticoagulation in [address] [address] Jeffrey Garay P.A.-C., P.A. Fibrillation Atrial (HCC); Monitoring For Therapeutic Drug Therapy; Assisted 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 Treatment; 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 Therapy; Thrombosis Deep Vein Acute Calf Right (HCC) [address] [facility] [address] [facility] [address] [place] [address] Winifred Moran 9 1:00 PM [facility] Anticoagulation Visit Department of Anticoagulation in [address] [address] Telly Gaines M.D. Thrombosis Deep Vein Acute Calf Right (HCC); Monitoring For Therapeutic Drug Therapy; Assisted 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 Treatment 9 Orders Only Department of Cardiovascular Medicine in [address] [address] Ap Buckley M.D., Ph.D. 9 Orders Only Department of Cardiovascular Medicine in [address] [address] Ap Buckley M.D., Ph.D. 9 11:10 AM [facility] Ancillary Procedure Department of Internal Medicine 9 Anticoagulation Visit Department of Anticoagulation in [address] [address] Tamela Barrett, PharmHarmonyD., R.Ph. 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 Treatment; Monitoring For Therapeutic Drug Therapy; Thrombosis Deep Vein Acute Calf Right (HCC) 9 11:30 AM [facility] Procedure visit Division of Community Internal Medicine, [facility] in [place], [place] [address] [place] [address] Ian Bocanegra M.D. Rotator Cuff Disorder Right 9 10:15 AM [facility] Comprehensive Visit Department of Orthopedic Surgery in [place], [place] [address] [place] [address] Yocasta Contreras P.A.-C. Primary Osteoarthritis Shoulder Right (Primary Dx); Pain Shoulder Right; Tear Rotator Cuff Initial Right 9 Clinical Communication Department of Cardiovascular Medicine in [place], [place] [address] [place] [phone] Raquel Price M.SMorgan., R.N. Pharmacy Safety Letter 9 11:23 AM [facility] - 9 11:59 PM [facility] Hospital Encounter Department of Radiology, [facility] in [place], [place] [address] [place] [phone] Telly Gaines M.D. Primary Osteoarthritis Knee Right; Rotator Cuff Disorder Right Discharge Disposition: Home or Self Care 9 10:30 AM [facility] Office Visit Department of Family Medicine, [facility], in [place], [place] [address] [place] [phone] Telly Gaines M.D. Primary Osteoarthritis Knee Right (Primary Dx); Rotator Cuff Disorder Right; Preoperative Exam; Sleep Apnea; Maintenance Health Adult; Hypertensive Heart Disease With Heart Failure (HCC); Hyperlipidemia; 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 Treatment 9 9:15 AM [facility] Anticoagulation Visit Department of Anticoagulation in [address] [address] Telly Gaines M.D. Thrombosis Deep Vein Acute Calf Right (HCC); Monitoring For Therapeutic Drug Therapy; 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 Treatment 9 11:00 AM [facility] Anticoagulation Visit Department of Anticoagulation in [address] [address] Telly Gaines M.D. Thrombosis Deep Vein Acute Calf Right (HCC); Monitoring For Therapeutic Drug Therapy; 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 Treatment 9 Refill Department of Family Medicine, [place], [place] [address] [place] [address] Telly Gaines M.D. Med Refill 8 Refill [facility], Fourth Floor [address] [place] [address] Katty Jain P.A.-C., M.S. Med Refill 8 2:15 PM [facility] Anticoagulation Visit Department of Anticoagulation in [address] [address] Jeffrey Garay P.A.-C., P.A. Fibrillation Atrial (HCC); Monitoring For Therapeutic Drug Therapy; 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 Treatment; 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 Therapy; Thrombosis Deep Vein Acute Calf Right (HCC) 8 Anticoagulation Visit Department of Anticoagulation in [place], [place] [address] [address] Matilde Cooper, R.N. 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 Treatment; Monitoring For Therapeutic Drug Therapy; Thrombosis Deep Vein Acute Calf Right (HCC) 8 Clinical Communication Department of Family [facility], in [place], [place] [address] [place] [address] Telly Gaines M.D. 8 9:47 AM [facility] - 8 11:59 PM [facility] Hospital Encounter Department of Laboratory Medicine and Pathology, [facility], in [place], [place] [address] [place] [address] Ap Buckley M.D., Ph.D. Fibrillation Atrial (HCC) Discharge Disposition: Home or Self Care 8 3:00 PM [facility] Office Visit Department of Cardiovascular Medicine in [place], [place] [address] [place] [address] Ap Buckley M.D., Ph.D. Fibrillation Atrial (HCC) (Primary Dx) 8 9:30 AM [facility] Anticoagulation Visit Department of Anticoagulation in [address] [address] Telly Gaines M.D. Thrombosis Deep Vein Acute Calf Right (HCC); Monitoring For Therapeutic Drug Therapy; 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 Treatment 8 11:00 AM [facility] Anticoagulation Visit Department of Anticoagulation in [address] [address] Jeffrey Garay P.A.-C., P.A. Fibrillation Atrial (HCC); Monitoring For Therapeutic Drug Therapy; Assisted 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 Treatment; 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 Therapy; Thrombosis Deep Vein Acute Calf Right (HCC) 8 1:15 PM [facility] Anticoagulation Visit Department of Anticoagulation in [place], [place] [address] [place] [phone] Telly Gaines M.D. 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 Treatment; Monitoring For Therapeutic Drug Therapy; Thrombosis Deep Vein Acute Calf Right (HCC) 8 Orders Only Department of Family Medicine, [facility], in [place], [place] [address] [place] [address] Jeffrey Garay P.A.-CHarmony, P.A. 8 Clinical Communication Department of Family Medicine, [facility], in [place], [place] [address] [place] [address] Telly Gaines M.D. 8 11:00 AM [facility] Anticoagulation Visit Department of Anticoagulation in [place], [place] [address] [place] [address] Telly Gaines M.D. Monitoring For Therapeutic Drug Therapy (Primary Dx); Thrombosis Deep Vein Acute Calf Right (HCC); Assisted 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 Treatment 8 1:00 PM [facility] Anticoagulation Visit Department of Anticoagulation in [address] [address] Jeffrey Garay P.A.-CHarmony, P.A. Fibrillation Atrial (HCC); Monitoring For Therapeutic Drug Therapy; 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 Treatment; 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 Therapy; Thrombosis Deep Vein Acute Calf Right (HCC) 8 Clinical Communication Department of Anticoagulation in [place], [place] [address] [place] [address] Lani Malhotra (follow up) 8 9:54 AM [facility] - 8 11:59 PM [facility] Hospital Encounter Department of Laboratory Medicine in [address] [address] Jeffrey Garay P.Aury.-CHarmony, P.A. Fibrillation Atrial (HCC); Monitoring For Therapeutic Drug Therapy; 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 Treatment; 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 Therapy; Thrombosis Deep Vein Acute Calf Right (HCC) Discharge Disposition: Home or Self Care 8 9:00 AM CDT Office Visit [facility] in [place], [place] [address] [place] [address] Alexus Chatman M.D. Apnea Sleep Obstructive (Primary Dx); Insomnia; Fatigue; Restless Leg Syndrome 8 7:45 AM CDT [facility] in [place], [place] [address] [place] [address] Alexus Chatman M.D. 8 Orders Only Department of Anticoagulation in [place], [place] [address] [place] [address] Debbi Marsh, Thaddeus Thrombosis Deep Vein Acute Calf Right (HCC) (Primary Dx); Monitoring For Therapeutic Drug Therapy; Assisted 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 Treatment 8 Orders Only Department of Anticoagulation in [place], [place] [address] [place] [phone] Matilde Cooper R.N. Thrombosis Deep Vein Acute Calf Right (HCC) (Primary Dx); Assisted 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 Treatment; Monitoring For Therapeutic Drug Therapy 8 5:00 PM CDT [facility] in [place], [place] [address] [place] [address] Alexus Chatman M.D. Apnea Sleep Obstructive 8 9:15 AM CDT Anticoagulation Visit Department of Anticoagulation in [address] [address] Jeffrey Garay P.A.-C., P.AHarmony Fibrillation Atrial (HCC); Monitoring For Therapeutic Drug Therapy; Assisted 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 Treatment; 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 Therapy; Thrombosis Deep Vein Acute Calf Right (HCC) 8 10:30 AM CDT Office Visit [facility] in [place], [place] [address] [place] [address] Alexus Chatman M.D. Apnea Sleep Obstructive (Primary Dx); Snoring; Fatigue; Sleep Disorder 8 Clinical Communication Department of Cardiovascular Medicine in [place], [place] [address] [place] [address] Ap Buckley M.D., Ph.D. 8 Clinical Communication Department of Cardiovascular Medicine in [address] [address] Ap Buckley M.D., Ph.D. 8 Orders Only Department of Cardiovascular Medicine in [address] [address] Ap Buckley M.D., Ph.D. 8 11:45 AM CDT Nurse Only Department of Family Medicine in [address] [address] Federico Oliveros L.PMorgan. 8 Clinical Communication Department of Cardiovascular Medicine in [place], [place] [address] [place] [address] Ap Buckley M.D., Ph.D. 8 Clinical Communication Department of Cardiovascular Medicine in [place], [place] [address] [place] [address] Ap Buckley M.D., Ph.D. 8 Clinical Communication Department of Cardiovascular Medicine in [place], [place] [address] [place] [address] Ap Buckley M.D., Ph.D. Med Question 8 2:00 PM CDT Office Visit Department of Cardiovascular Medicine in [place], [place] [address] [place] [address] Ap Buckley M.D., Ph.D. Fibrillation Atrial (HCC) (Primary Dx) 8 Anticoagulation Visit Department of Anticoagulation in [place], [place] [address], [place] [address] Ileana Zurita, R.N. 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 Therapy; Fibrillation Atrial (HCC); Assisted 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 Treatment 8 Clinical Communication Department of [facility], in [place], [place] [address] [place] [address] Mabel Joya, R.Elizabeth. [facility] Follow-up 8 8:56 AM CDT - 8 11:59 PM CDT Hospital Encounter Department of Laboratory Medicine in [place], [place] [address] [place] [address] Jeffrey Garay P.A.-C., P.A. 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 Therapy; Monitoring For Therapeutic Drug Therapy; Fibrillation Atrial (HCC) Discharge Disposition: Home or Self Care 8 [facility] Only [facility] in [place], [place] [address] [place] [address] Alexus Chatman M.D. 8 Clinical Communication Department of Anticoagulation in [place], [place] [address] [place] [phone] Ximena Fairbanks, [facility]-- discharge 8 10:15 AM CDT Anticoagulation Visit Department of Anticoagulation in [place], [place] [address] [facility] [place] [place] [address] Jeffrey Garay P.A.-C., P.A. Fibrillation Atrial (HCC); Monitoring For Therapeutic Drug Therapy; Assisted 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 Treatment; 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 Therapy 8 2:21 PM CDT - 8 8:23 PM CDT Hospital Encounter [facility], Fourth Floor [address] [place] [address] Robin Guevara M.D. Fibrillation Atrial (HCC) (Primary Dx) Discharge Disposition: Home or Self Care 8 11:00 AM CDT Office Visit Department of Family Medicine, [facility] in [place], [place] [address] [place] [address] Telly Gaines M.D. Maintenance Health Adult (Primary Dx); Sleep Apnea; Fibrillation Atrial (HCC) 8 Orders Only Department of Cardiovascular Medicine in [place], [place] [address] [place] [address] Ap Buckley M.D., Ph.D. Fibrillation Atrial (HCC) (Primary Dx) 8 4:06 PM CDT Anesthesia Event [facility], Fourth Floor [address] [place] [address] Ap Redman, HEALTH AND WELLNESS INSTRUCTOR, ASPEN, ROB, R.N. 8 Clinical Communication Department of Family Medicine, [facility], in [place], [place] [address] [place] [address] Telly Gaines M.D. 8 Clinical Communication [facility] [address] [place] [address] Radha Lomeli APRN, C.N.P., M.S. Pre-visit Testing Orders 8 7:46 AM CDT - 8 7:02 PM CDT Hospital Encounter [facility], Fourth Floor [address] [place] [address] Helder Pop M.D. Shiv Vance M.D. Tilbury, R. Thomas, M.D. Wiley, Brandon M, M.D. Fibrillation Atrial (HCC) (Primary Dx) Discharge Disposition: Home or Self Care 8 9:00 AM CDT Anticoagulation Visit Department of Anticoagulation in [address] [address] Jeffrey Garay P.A.-C., P.A. Fibrillation Atrial (HCC); Monitoring For Therapeutic Drug Therapy; 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 Treatment; 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 Therapy 8 Clinical Communication Department of Family Medicine, [facility], in [place], [place] [address] [place] [address] Evan Armendariz P.A.-C. Communication 8 Orders Only Department of Orthopedic Surgery in [place], [place] [address] [place] [phone] Evan Armendariz P.A.-CHarmony 8 10:24 AM CDT - 8 11:59 PM CDT Hospital Encounter Department of Radiology in [place], [place] [address] [address] Evan Armendariz P.A.MahinCHarmony Primary Osteoarthritis Knee Right Discharge Disposition: Home or Self Care 8 11:00 AM CDT Comprehensive Visit Department of Orthopedic Surgery in [place], [place] [address] [address] Evan Armendariz P.A.-C. Primary Osteoarthritis Knee Right (Primary Dx) 8 Nurse Triage Department of Family Medicine, [facility], in [place], [place] [address] [place] [address] Nedra Singleton R.N. 8 Orders Only Department of Cardiovascular Medicine in [place], [place] [address] [place] [address] Hannah Hannon, NIKITA, C.N.P., M.S.N. Fibrillation Atrial (HCC) (Primary Dx) 8 9:30 AM CDT Anticoagulation Visit Department of Anticoagulation in [place], [place] [address] [place] [address] Jeffrey Garay P.A.-C., P.A. Fibrillation Atrial (HCC); Monitoring For Therapeutic Drug Therapy; 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 Treatment; 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 Therapy 8 Orders Only Department of Family Medicine, [facility] in [place], [place] [address] [place] [address] Telly Gaines M.D. 8 Orders Only Department of Family Medicine, [facility] in [place], [place] [address] [place] [address] Telly Gaines M.D. Screening Mammogram Breast Cancer (Primary Dx) 8 10:40 AM CDT - 8 11:59 PM CDT Hospital Encounter Department of Radiology in [place], [place] [address] [place] [address] Telly Gaines M.D. Screening Mammogram Breast Cancer Discharge Disposition: Home or Self Care 8 Refill Department of Family [facility], in [place], [place] [address] [place] [address] Telly Gaines M.D. Med Refill 8 Abstract [facility] [place] [address] [facility] [place] [address] Provider, Historical 8 Clinical Communication Department of Anticoagulation in [place], [place] [address] [place] [address] Matilde Cooper R.N. Atrial Fibrillation 8 9:00 AM CDT Anticoagulation Visit Department of Anticoagulation in [address] [address] Jeffrey Garay P.A.-C., P.A. Fibrillation Atrial (HCC); Monitoring For Therapeutic Drug Therapy; Assisted 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 Treatment; 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 Therapy 8 10:15 AM CDT Office Visit Department of Family Medicine in [address] [address] Jeffrey Garay P.A.-C., P.A. Fibrillation Atrial (HCC) (Primary Dx) 8 11:45 AM CDT Anticoagulation Visit Department of Anticoagulation in [address] [address] Jeffrey Garay P.A.-CHarmony, P.A. Fibrillation Atrial (HCC); Monitoring For Therapeutic Drug Therapy; Assisted 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 Treatment; 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 Therapy 8 Orders Only Department of Family Medicine, [facility], in [place], [place] [address] [place] [address] Telly Gaines M.D. Screening Mammogram Breast Cancer 8 Anticoagulation Visit Department of Anticoagulation in [address] [address] Alisha Elmore, R.NHarmony 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 Therapy; Monitoring For Therapeutic Drug Therapy; Fibrillation Atrial (HCC); 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 Treatment 8 Anticoagulation Visit Department of Anticoagulation in [address] [address] Alisha Elmore, R.NHarmony 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 Therapy; Monitoring For Therapeutic Drug Therapy; Fibrillation Atrial (HCC); 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 Treatment 8 Clinical Communication Department of Anticoagulation in [address] [address] Alisha Elmore, R.N. Communication 8 Anticoagulation Visit Department of Anticoagulation in [address] [address] Alisha Elmore, R.N. 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 Therapy; Monitoring For Therapeutic Drug Therapy; Fibrillation Atrial (HCC); Assisted 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 Treatment 8 8:55 AM [facility] - 8 11:59 PM [facility] Hospital Encounter Department of Laboratory Medicine in [address] [address] Telly Gaines M.D. 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 Therapy; Monitoring For Therapeutic Drug Therapy; Fibrillation Atrial (HCC) Discharge Disposition: Home or Self Care 8 Orders Only Department of Anticoagulation in [address] [address] Alisha Elmore, R.N. Monitoring For Therapeutic Drug Therapy (Primary Dx); 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 Treatment; Fibrillation Atrial (HCC); 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 Therapy 8 Clinical Communication Department of Anticoagulation in [address] [address] Matilde Cooper, R.N. Communication 8 9:00 AM [facility] Anticoagulation Visit Department of Anticoagulation in [address] [address] Jeffrey Garay P.A.-C., P.A. Fibrillation Atrial (HCC); Monitoring For Therapeutic Drug Therapy; 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 Treatment; 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 Therapy 8 Orders Only Department of Family Medicine, [facility], in [address] [address] Jeffrey Garay P.A.-C., P.A. 8 10:28 AM [facility] - 8 11:59 PM [facility] Hospital Encounter Department of Radiology in [place], [place] [address] [place] [address] Jeffrey Garay P.A.-C., P.A. Cough; Fatigue Discharge Disposition: Home or Self Care 8 9:15 AM [facility] Office Visit Department of Family Medicine in [address] [address] Jeffrey Garay P.A.-C., P.A. Cough (Primary Dx); Fatigue 8 Orders Only Urgent Care in [place], [place] [address] [address] [place] Poole M.D. 8 9:30 AM [facility] Office Visit Department of Family Medicine in [address] [address] Mariah Wong, NIKITA, C.N.P., R.N. Jeffrey Garay P.A.-C., P.A. Cough (Primary Dx); Asthma Mild Intermittent With Environmental Exposure To Tobacco Smoke 8 Abstract Department of Family Medicine, [facility], in [address] [address] Provider, Historical 8 10:00 AM [facility] Office Visit Department of Family Medicine, [facility], in [address] [phone] [place] Poole M.D. Infection Upper Respiratory (Primary Dx); Acute Reactive Otitis Externa Right Ear 8 Nurse Triage Department of Family Medicine, [facility], in [place], [place] [address] [place] [phone] áFtima Schneider R.N. 8 8:45 AM [facility] Anticoagulation Visit Department of Anticoagulation in [address] [phone] Jeffrey Garay P.A.-C., P.A. Fibrillation Atrial (HCC); Monitoring For Therapeutic Drug Therapy; 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 Treatment; 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 Therapy 8 Orders Only Department of Anticoagulation in [address] [phone] Alisha Elmore, R.N. Monitoring For Therapeutic Drug Therapy (Primary Dx); Fibrillation Atrial (HCC); Assisted 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 Treatment 8 Orders Only Department of Anticoagulation in [address] [phone] Alisha Elmore, R.N. 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 Therapy; Monitoring For Therapeutic Drug Therapy; Fibrillation Atrial (HCC) 7 Anticoagulation Visit Department of Anticoagulation in [address] [phone] Alisha Elmore, R.N. 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 Therapy; Monitoring For Therapeutic Drug Therapy; Fibrillation Atrial (HCC) 7 9:08 AM [facility] - 7 11:59 PM [facility] Hospital Encounter Department of Laboratory Medicine in [address] [phone] Jeffrey Garay P.A.-C., P.A. 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 Therapy; Monitoring For Therapeutic Drug Therapy; Fibrillation Atrial (HCC) Discharge Disposition: Home or Self Care 7 Orders Only Department of Anticoagulation in [address] [phone] Alisha Elmore, R.N. 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 Therapy; Monitoring For Therapeutic Drug Therapy; Fibrillation Atrial (HCC) 7 Orders Only Department of Anticoagulation in [address] [phone] Alisha Elmore, R.N. Fibrillation Atrial (HCC) (Primary Dx) 7 Abstract Department of Anticoagulation in [place], [place] [address] [facility] [place] [address] Agnieszka Nichols R.N. 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 Therapy; Monitoring For Therapeutic Drug Therapy; Fibrillation Atrial (HCC) 7 Anticoagulation Visit Department of Anticoagulation in [place], [place] [address] [place] [phone] Alisha Elmore RPreeti 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 Therapy; Monitoring For Therapeutic Drug Therapy; Fibrillation Atrial (HCC) 7 9:40 AM [facility] - 7 11:59 PM [facility] Hospital Encounter Department of Laboratory Medicine in [address] [phone] Telly Gaines M.D. Monitoring For Therapeutic Drug Therapy Discharge Disposition: Home or Self Care 7 11:13 AM CDT - 7 11:59 PM CDT Hospital Encounter [facility] Telly Magana M.D. 7 11:13 AM CDT - 7 11:59 PM CDT Hospital Encounter [facility]X [facility] Telly Rodriguez M.D. 7 Orders Only Department of Family [facility], in [place], [place] [address] [place] [phone] Telly Gaines M.D. Fibrillation Atrial Paroxysmal (HCC) 7 9:32 AM CDT - 7 11:59 PM CDT Hospital Encounter [facility]X [facility] Telly Magana M.D. 7 10:40 AM CDT - 7 11:59 PM CDT Hospital Encounter [facility]X [facility] Telly Rodriguez M.D. 7 10:35 AM CDT - 7 11:59 PM CDT Hospital Encounter [facility]X [facility] Telly Magana M.D. 7 1:17 PM CDT - 7 11:59 PM CDT Hospital Encounter [facility]X [facility] Jacquie Escalante APRN, C.N.P., M.S.N. 7 8:06 AM CDT - 7 11:59 PM CDT Hospital Encounter [facility]X [facility] LAB Telly Gaines M.D. 7 8:07 AM CDT - 7 11:59 PM CDT Hospital Encounter [facility]X [facility] Telly Magana M.D. 7 8:13 AM CDT - 7 11:59 PM CDT Hospital Encounter [facility]X [facility] FAMILYPRA Telly Gaines M.D. 7 8:12 AM CDT - 7 11:59 PM CDT Hospital Encounter [facility]X [facility] LAB Telly Gaines M.D. 7 8:52 AM CDT - 7 11:59 PM CDT Hospital Encounter [facility]X [facility] Telly Magana M.D. 7 8:52 AM CDT - 7 11:59 PM CDT Hospital Encounter [facility]X [facility] LAB Telly Gaines M.D. 7 8:53 AM CDT - 7 11:59 PM CDT Hospital Encounter [facility] LAB Telly Gaines M.D. 7 8:54 AM CDT - 7 11:59 PM CDT Hospital Encounter [facility]X [facility] Telly Magana M.D. 7 8:14 AM [facility] - 7 11:59 PM [facility] Hospital Encounter [facility]X [facility] LAB Jeffrey Garay P.A.-C., P.A. 7 9:03 AM CDT Hospital Encounter [facility]X [facility] Telly Magana M.D. 7 9:02 AM CDT Hospital Encounter [facility]X [facility] LAB Telly Gaines M.D. 7 12:17 PM [facility] - 7 5:35 PM [facility] Hospital Encounter HX RST EMERGENCY TRAUMA UNI Provider, Historical 6 8:31 AM [facility] - 6 11:59 PM [facility] Hospital Encounter [facility]X [facility] LAB Telly Gaines M.D. 6 8:39 AM [facility] - 6 11:59 PM [facility] Hospital Encounter [facility]X [facility] LAB Telly Gaines M.D. 6 9:32 AM [facility] - 6 11:59 PM [facility] Hospital Encounter [facility]X [facility] LAB Telly Gaines M.D. 6 11:12 AM CDT - 6 11:59 PM CDT Hospital Encounter [facility]X [facility] Telly Magana M.D. 6 11:11 AM CDT - 6 11:59 PM CDT Hospital Encounter [facility]X [facility] LAB Telly Gaines M.D. 6 - 6 11:59 PM CDT Hospital Encounter HX NO MAPPING 6 2:18 PM CDT - 6 11:59 PM CDT Hospital Encounter [facility]X [facility] LAB Telly Gaines M.D. 6 10:40 AM CDT - 6 11:59 PM CDT Hospital Encounter [facility]X [facility] FAMILYPRA Jeffrey Garay P.A.Emili., P.A. 6 9:06 AM CDT - 6 11:59 PM CDT Hospital Encounter [facility]X [facility] LAB Telly Gaines M.D. 6 9:08 AM CDT - 6 11:59 PM CDT Hospital Encounter [facility] Telly Magana M.D. 6 8:57 AM CDT - 6 11:59 PM CDT Hospital Encounter [facility] Telly Rodriguez M.D. 6 8:57 AM CDT - 6 11:59 PM CDT Hospital Encounter [facility] Telly Magana M.D. 6 9:04 AM CDT - 6 11:59 PM CDT Hospital Encounter [facility] LAB Telly Gaines M.D. 6 9:04 AM CDT - 6 11:59 PM CDT Hospital Encounter [facility] Telly Magana M.D. 6 8:10 AM CDT - 6 11:59 PM CDT Hospital Encounter [facility] LAB Jacquie Escalante APRN, C.NRosa, M.S.N. 6 8:11 AM CDT - 6 11:59 PM CDT Hospital Encounter [facility] Jacquie Charles APRN, C.NRosa, M.S.N. 6 10:23 AM CDT - 6 11:59 PM CDT Hospital Encounter [facility] LAB Jacquie Escalante APRN, C.NRosa, M.S.N. 6 11:09 AM CDT - 6 11:59 PM CDT Hospital Encounter [facility] Jacquie Charles APRN, C.NRosa, M.S.N. 6 9:15 AM CDT - 6 11:59 PM CDT Hospital Encounter [facility] Jose A Muller M.D. 6 9:51 AM CDT - 6 11:59 PM CDT Hospital Encounter [facility]X [facility] Karime Abdalla M.D. 6 2:52 PM CDT - 6 11:59 PM CDT Hospital Encounter [facility] LAB Jacquie Escalante APRN, C.NRosa, M.S.N. 6 9:01 AM CDT - 6 11:59 PM CDT Hospital Encounter [facility] LAB Jacquie Escalante APRN, C.N.P., M.S.N. 6 9:00 AM CDT - 6 11:59 PM CDT Hospital Encounter [facility]X [facility] PROTIME Jacquie Avalos APRN, C.NRosa, M.S.N. 6 9:00 AM CDT - 6 11:59 PM CDT Hospital Encounter [facility] LAB Jacquie Escalante APRN, C.NJake., M.S.N. 6 9:00 AM CDT - 6 11:59 PM CDT Hospital Encounter [facility]X [facility] PROTJacquie Cabrales APRN, C.NJake., M.S.N. 6 8:40 AM CDT - 6 11:59 PM CDT Hospital Encounter [facility] LAB Telly Gaines M.D. 6 8:02 AM [facility] - 6 11:59 PM [facility] Hospital Encounter [facility] LAB Jacquie Escalante APRN, C.N.P., M.S.N. 6 8:10 AM [facility] - 6 11:59 PM [facility] Hospital Encounter [facility]X [facility] LAB Telly Gaines M.D. 6 8:11 AM [facility] - 6 11:59 PM [facility] Hospital Encounter [facility]X [facility] PROTIME Telly Allen M.D. 6 8:22 AM [facility] - 6 11:59 PM [facility] Hospital Encounter [facility]X [facility] FAMILYPRA Jacquie Escalante APRN, C.N.P., M.S.N. 6 10:54 AM [facility] - 6 11:59 PM [facility] Hospital Encounter [facility]X [facility] LAB Telly Gaines M.D. 6 10:55 AM [facility] - 6 11:59 PM [facility] Hospital Encounter [facility]X [facility] Telly Magana M.D. 6 1:51 PM [facility] - 6 11:59 PM [facility] Hospital Encounter [facility] Mason Mari P.A.-C. 5 8:02 AM [facility] - 5 11:59 PM [facility] Hospital Encounter [facility]X [facility] LAB Telly Gaines M.D. 5 9:41 AM [facility] - 5 11:59 PM [facility] Hospital Encounter [facility]X [facility] Telly Rodriguez M.D. 5 9:42 AM [facility] - 5 11:59 PM [facility] Hospital Encounter [facility]X [facility] Telly Magana M.D. 5 10:29 AM CDT - 5 11:59 PM CDT Hospital Encounter [facility] Jacquie Escalante APRN, C.N.P., M.S.N. 5 10:20 AM CDT - 5 11:59 PM CDT Hospital Encounter [facility]X [facility] Lolis Denny P.A.-C. 5 10:21 AM CDT - 5 11:59 PM CDT Hospital Encounter [facility]X [facility] Lolis Almeida P.A.-C. 5 8:55 AM CDT - 5 11:59 PM CDT Hospital Encounter [facility] Jacquie Charles APRN, C.N.P., M.S.N. 5 8:54 AM CDT - 5 11:59 PM CDT Hospital Encounter [facility] Jacquie Bethea APRN, C.N.P., M.S.N. 5 9:02 AM CDT - 5 11:59 PM CDT Hospital Encounter [facility] Jacquie Charles APRN, C.N.P., M.S.N. 5 9:01 AM CDT - 5 11:59 PM CDT Hospital Encounter [facility]X [facility] LAB Jacquie Escalante APRN, C.N.Fredrick, M.S.N. 5 9:16 AM CDT - 5 11:59 PM CDT Hospital Encounter [facility] Jacquie Charles APRN, C.N.Fredrick, M.S.N. 5 9:15 AM CDT - 5 11:59 PM CDT Hospital Encounter [facility]X [facility] LAB Jacquie Escalante APRN, C.NRosa, M.S.N. 5 10:30 AM CDT - 5 11:59 PM CDT Hospital Encounter [facility]X [facility] FBHB Ap Michaud M.D. 5 9:24 AM CDT - 5 11:59 PM CDT Hospital Encounter [facility]X [facility] LAB Jeffrey Garay P.A.-Ward, P.A. 5 10:46 AM CDT - 5 11:59 PM CDT Hospital Encounter [facility]X [facility] LAB Lolis Tyler P.A.-C. 5 10:48 AM CDT - 5 11:59 PM CDT Hospital Encounter [facility]X [facility] Lolis Almeida P.A.-C. 5 - 5 11:59 PM CDT Hospital Encounter HX NO MAPPING 5 3:00 PM [facility] - 5 11:59 PM [facility] Hospital Encounter [facility]X [facility] FBHB Urban De La O M.D. 5 9:46 AM [facility] - 5 11:59 PM [facility] Hospital Encounter [facility]X [facility] Lolis Almeida P.A.-C. 5 9:45 AM [facility] - 5 11:59 PM [facility] Hospital Encounter [facility]X [facility] Lolis Denny P.A.-C. 5 5:28 AM [facility] - 5 12:55 PM [facility] Hospital Encounter HX RST Ap Cherry M.D., Ph.D. 5 - 5 5:28 AM [facility] Hospital Encounter HX NO MAPPING Provider, Historical 5 - 5 11:59 PM [facility] Hospital Encounter HX NO MAPPING 5 10:23 AM [facility] - 5 11:59 PM [facility] Hospital Encounter [facility]X [facility] Lolis Denny P.A.-C. 5 3:51 PM [facility] - 5 11:59 PM [facility] Hospital Encounter [facility]X [facility] FB[facility] Lolis Almeida P.A.-C. 4 12:40 PM [facility] - 4 3:16 PM [facility] Hospital Encounter HX RST EMERGENCY TRAUMA UNI Provider, Historical 4 11:06 AM [facility] - 4 11:59 PM [facility] Hospital Encounter [facility]X [facility] LAB Provider, Historical 4 11:36 AM [facility] - 4 11:59 PM [facility] Hospital Encounter [facility]X [facility] FAMILYPRA Lolis Tyler P.A.-C. 4 11:17 AM [facility] - 4 11:59 PM [facility] Hospital Encounter HX [facility] PROTLolis Espinal P.A.-C. 4 3:37 PM [facility] - 4 8:55 PM [facility] Hospital Encounter HX RST EMERGENCY TRAUMA UNI Provider, Historical 4 9:20 AM [facility] - 4 11:59 PM [facility] Hospital Encounter HX NO MAPPING Sumaya Parekh APRN, C.N.P., D.N.P., R.N. 4 8:30 AM [facility] - 4 11:59 PM [facility] Hospital Encounter [facility]X [facility] LAB Sumaya Parekh APRN, C.N.P., D.N.P., R.N. 4 8:29 AM [facility] - 4 11:59 PM [facility] Hospital Encounter HX [facility] FAMILYADITI Sumaya Parekh APRN, C.N.P., D.N.P., R.N. 4 10:28 AM [facility] - 4 11:59 PM [facility] Hospital Encounter [facility]X [facility] FAMILYADITI Sumaya Parekh APRN, C.N.P., D.N.P., R.N. 4 9:43 AM [facility] - 4 11:59 PM [facility] Hospital Encounter [facility]X [facility] LAB Sumaya Parekh APRN, C.N.P., D.N.P., R.N. 4 9:44 AM [facility] - 4 11:59 PM [facility] Hospital Encounter [facility]X [facility] Sumaya Prieto APRN, C.N.P., D.N.P., R.N. 4 10:34 AM [facility] - 4 11:59 PM [facility] Hospital Encounter [facility]X [facility] LAB Sumaya Parekh APRN, C.N.P., D.N.P., R.N. 4 10:35 AM [facility] - 4 11:59 PM [facility] Hospital Encounter [facility]X [facility] Sumaya Prieto APRN, C.N.P., D.N.P., R.N. 4 10:37 AM [facility] - 4 11:59 PM [facility] Hospital Encounter HX [facility] FAMILYSumaya Prieto APRN, C.N.P., D.N.P., R.N. 4 1:21 PM [facility] - 4 11:59 PM [facility] Hospital Encounter [facility]X [facility] Sumaya Prieto APRN, C.N.P., D.N.P., R.N. 4 - 4 11:59 PM CDT Hospital Encounter HX NO MAPPING 4 12:57 PM CDT - 4 11:59 PM CDT Hospital Encounter HX [facility] FAMILYSumaya Prieto APRN, C.N.P., D.N.P., R.N. 4 3:26 PM CDT - 4 11:59 PM CDT Hospital Encounter HX [facility] FBKF FAMILYSumaya Prieto APRN, C.N.P., D.N.P., R.N. 4 10:02 AM CDT - 4 11:59 PM CDT Hospital Encounter [facility]X [facility] LAB Jeffrey Garay P.A.-C., P.A. 4 10:02 AM CDT - 4 11:59 PM CDT Hospital Encounter HX [facility] FAMILYJeffrey Cantu P.A.-C., P.A. 4 8:53 AM CDT - 4 11:59 PM CDT Hospital Encounter [facility] LAB Jeffrey Garay P.A.-C., P.A. 4 8:26 AM CDT - 4 11:59 PM CDT Hospital Encounter [facility]X [facility] FAMILYPRA Jeffrey Garay P.A.-C., P.A. 4 11:30 AM CDT - 4 11:59 PM CDT Hospital Encounter HX [facility] FAMILYSumaya Prieto APRN, C.N.P., D.N.P., R.N. 4 1:39 PM CDT - 4 11:59 PM CDT Hospital Encounter [facility] LAB Sumaya Parekh APRN, C.N.P., D.N.P., R.N. 4 11:09 AM CDT - 4 11:59 PM CDT Hospital Encounter [facility]X [facility] FAMILYPRA Sumaya Parekh APRN, C.N.P., D.N.P., R.N. 4 - 4 11:59 PM CDT Hospital Encounter HX NO MAPPING 4 8:57 AM CDT - 4 11:59 PM CDT Hospital Encounter HX [facility] LAB Sumaya Parekh APRN, C.N.P., D.N.P., R.N. 4 - 4 11:59 PM CDT Hospital Encounter HX NO MAPPING 4 5:08 AM [facility] - 4 8:40 AM [facility] Hospital Encounter HX [facility] Dada Gonzales M.D. 4 9:52 AM [facility] - 4 12:10 PM [facility] Hospital Encounter HX [facility] Alexandru Zuniga D.O. 4 1:01 PM [facility] - 4 11:59 PM [facility] Hospital Encounter HX [facility]KF FAMILYPRA Jeffrey Garay P.A.-C., P.A. 4 10:10 AM [facility] - 4 11:59 PM [facility] Hospital Encounter [facility] LAB Sumaya Parekh APRN, C.N.P., D.N.P., R.N. 4 10:10 AM [facility] - 4 11:59 PM [facility] Hospital Encounter [facility]X [facility] FAMILYPRA Sumaya Parekh APRN, C.N.P., D.N.P., R.N. 4 8:49 AM [facility] - 4 11:59 PM [facility] Hospital Encounter [facility]X [facility] LAB Sumaya Parekh APRN, C.N.P., D.N.P., R.N. 4 8:50 AM [facility] - 4 11:59 PM [facility] Hospital Encounter [facility]X [facility] FAMILYPRA Sumaya Parekh APRN, C.N.P., D.N.P., R.N. 4 5:35 AM [facility] - 4 1:42 PM [facility] Hospital Encounter HX RST ANGE 4C 4 - 4 5:35 AM [facility] Hospital Encounter HX NO MAPPING 4 - 4 11:59 PM [facility] Hospital Encounter HX NO MAPPING 4 12:20 PM [facility] - 4 11:59 PM [facility] Hospital Encounter HX RST CARDIOLOGY Ap Buckley M.D., Ph.D. 4 - 4 11:59 PM [facility] Hospital Encounter HX NO MAPPING 3 10:03 AM [facility] - 3 11:59 PM [facility] Hospital Encounter HX [facility] FAMILYSumaya Prieto APRN, C.N.P., D.N.P., R.N. 3 10:15 AM [facility] - 3 11:59 PM [facility] Hospital Encounter [facility] LAB Sumaya Parekh APRN, C.N.P., D.N.P., R.N. 3 1:25 PM [facility] - 3 11:59 PM [facility] Hospital Encounter [facility] LAB Sumaya Parekh APRN, C.N.P., D.N.P., R.N. 3 10:35 AM [facility] - 3 11:59 PM [facility] Hospital Encounter [facility]X [facility] LAB Sumaya Parekh [employer] WELLNESS INSTRUCTOR, C.N.P., D.N.P., R.N. 3 11:53 AM [facility] - 3 11:59 PM [facility] Hospital Encounter [facility] LAB Sumaya Parekh APRN, C.N.P., D.N.P., R.N. 3 8:02 AM CDT - 3 11:59 PM CDT Hospital Encounter [facility] LAB Sumaya Parekh APRN, C.N.P., D.N.P., R.N. 3 - 3 11:59 PM CDT Hospital Encounter HX NO MAPPING Provider, Historical 3 12:26 PM CDT - 3 11:59 PM CDT Hospital Encounter HX NO MAPPING Provider, Historical 3 12:02 PM CDT - 3 5:49 PM CDT Hospital Encounter HX RST ED OBSERVATION UNIT Jose Plasencia M.D. 3 12:02 PM CDT - 3 3:20 PM CDT Hospital Encounter HX RST EMERGENCY TRAUMA UNI Provider, Historical 3 9:51 AM CDT - 3 11:59 PM CDT Hospital Encounter [facility]X [facility] Sumaya Lynn APRN, C.N.P., D.N.P., R.N. 3 9:50 AM CDT - 3 11:59 PM CDT Hospital Encounter [facility]X [facility] Sumaya Wood APRN, C.N.P., D.N.P., R.N. 3 4:17 PM CDT - 3 11:59 PM CDT Hospital Encounter [facility]X [facility] Sumaya Lynn APRN, C.N.P., D.N.P., R.N. 3 9:04 AM CDT - 3 11:59 PM CDT Hospital Encounter [facility] LAB Sumaya Parekh APRN, C.N.P., D.N.P., R.N. 3 8:59 AM CDT Hospital Encounter [facility] LAB Sumaya Parekh APRN, C.N.P., D.N.P., R.N. 3 1:01 PM CDT - 3 11:59 PM CDT Hospital Encounter [facility]X [facility] FAMILYPRA Sumaya Parekh APRN, C.N.P., D.N.P., R.N. 3 10:09 AM CDT - 3 11:59 PM CDT Hospital Encounter [facility]X [facility] LAB Sumaya Parekh APRN, C.N.P., D.N.P., R.N. 3 10:10 AM CDT - 3 11:59 PM CDT Hospital Encounter [facility]X [facility] FAMILYPRA Sumaya Parekh APRN, C.N.P., D.N.P., R.N. 3 10:11 AM CDT - 3 11:59 PM CDT Hospital Encounter [facility]X [facility] Ap Long M.D. 3 10:12 AM CDT - 3 11:59 PM CDT Hospital Encounter [facility]X [facility] FAMILYAp Andersen M.D. 3 1:14 PM CDT - 3 11:59 PM CDT Hospital Encounter HX RST EMERGENCY TRAUMA UNI Provider, Historical 3 10:19 AM CDT - 3 11:59 PM CDT Hospital Encounter [facility]X [facility] Ap Long M.D. 3 10:19 AM CDT - 3 11:59 PM CDT Hospital Encounter [facility]X [facility] FAMILYAp Andersen M.D. 3 10:10 AM CDT - 3 11:59 PM CDT Hospital Encounter [facility] LAB Ap Oakes M.D. 3 10:11 AM CDT - 3 11:59 PM CDT Hospital Encounter [facility]X [facility] Ap Vasquez M.D. 3 9:01 PM CDT - 3 11:59 PM CDT Hospital Encounter HX RST EMERGENCY TRAUMA UNI Provider, Historical 3 2:47 PM CDT - 3 11:59 PM CDT Hospital Encounter [facility] LAB Ap Oakes M.D. 3 9:55 AM CDT - 3 11:59 PM CDT Hospital Encounter [facility] LAB Ap Oakes M.D. 3 6:03 PM CDT - 3 12:26 PM CDT Hospital Encounter HX RST YANYA Helder Felix M.D., Ph.D. 3 10:37 AM CDT - 3 12:14 PM CDT Hospital Encounter HX RST EMERGENCY TRAUMA UNI Provider, Historical 3 10:46 AM CDT - 3 11:59 PM CDT Hospital Encounter [facility]X [facility] Ap Vasquez M.D. 3 10:45 AM CDT - 3 11:59 PM CDT Hospital Encounter [facility] LAB Ap Oakes M.D. 3 9:22 AM [facility] - 3 11:59 PM [facility] Hospital Encounter [facility]X [facility] Ap Vasquez M.D. 3 9:20 AM [facility] - 3 11:59 PM [facility] Hospital Encounter [facility]X [facility] LAB Ap Oakes M.D. 3 9:16 AM [facility] - 3 11:59 PM [facility] Hospital Encounter [facility]X [facility] LAB Ap Oakes M.D. 2 4:16 PM [facility] - 2 11:59 PM [facility] Hospital Encounter HX RST EMERGENCY TRAUMA UNI Provider, Historical 2 - 2 11:59 PM [facility] Hospital Encounter HX NO MAPPING 2 9:11 AM [facility] - 2 11:59 PM [facility] Hospital Encounter [facility]X [facility] LAB Ap Oakes M.D. 2 1:55 PM CDT - 2 11:59 PM CDT Hospital Encounter [facility]X [facility] FAMILYPRA Sumaya Parekh APRN, C.N.P., D.N.P., R.N. 2 9:15 AM CDT - 2 11:59 PM CDT Hospital Encounter [facility]X [facility] LAB Ap Oakes M.D. 2 1:34 PM CDT - 2 11:59 PM CDT Hospital Encounter [facility] LAB Ap Oakes M.D. 2 9:06 AM CDT - 2 11:59 PM CDT Hospital Encounter [facility] LAB Ap Oakes M.D. 2 9:48 AM [facility] - 2 11:59 PM [facility] Hospital Encounter [facility]X [facility] LAB Ap Oakes M.D. 2 - 2 11:59 PM [facility] Hospital Encounter HX NO MAPPING 2 8:14 AM [facility] - 2 11:59 PM [facility] Hospital Encounter HX [facility] LAB Ap Oakes M.D. 2 9:30 AM [facility] - 2 11:59 PM [facility] Hospital Encounter HX [facility] LAB Ap Oakes M.D. 2 8:27 AM [facility] - 2 11:59 PM [facility] Hospital Encounter HX [facility] LAB Ap Oakes M.D. 2 8:28 AM [facility] - 2 11:59 PM [facility] Hospital Encounter HX [facility] FAMILYPRA Ap Oakes M.D. 1 8:29 AM [facility] - 1 11:59 PM [facility] Hospital Encounter HX [facility] LAB Ap Oakes M.D. 1 8:40 AM [facility] - 1 11:59 PM [facility] Hospital Encounter HX [facility] LAB Ap Oakes M.D. 1 9:29 AM [facility] - 1 11:59 PM [facility] Hospital Encounter HX [facility] LAB Ap Oakes M.D. 1 - 1 11:59 PM [facility] Hospital Encounter HX NO MAPPING 1 9:29 AM [facility] - 1 11:59 PM [facility] Hospital Encounter HX [facility] LAB Ap Oakes M.D. 1 7:57 AM [facility] - 1 11:59 PM [facility] Hospital Encounter HX [facility] FAMILYPRA Sumaya Parekh APRN, C.N.P., D.N.P., R.N. 1 7:56 AM [facility] - 1 11:59 PM [facility] Hospital Encounter HX [facility] LAB Ap Oakes M.D. 1 9:43 AM [facility] - 1 11:59 PM [facility] Hospital Encounter HX [facility] FAMILYPRA Sumaya Parekh APRN, C.N.P., D.N.P., R.N. 1 9:30 AM [facility] - 1 11:59 PM [facility] Hospital Encounter HX [facility] LAB Ap Oakes M.D. 1 9:19 AM [facility] - 1 11:59 PM [facility] Hospital Encounter HX [facility] LAB Ap Oakes M.D. 1 3:29 PM [facility] - 1 11:59 PM [facility] Hospital Encounter HX [facility] FAMILYPRA Sumaya Parekh APRN, C.N.P., D.N.P., R.N. 1 9:27 AM [facility] - 1 11:59 PM [facility] Hospital Encounter HX [facility] LAB Ap Oakes M.D. 1 9:20 AM [facility] - 1 11:59 PM [facility] Hospital Encounter HX [facility] LAB Ap Oakes M.D. 1 9:28 AM [facility] - 1 11:59 PM [facility] Hospital Encounter HX [facility] LAB Ap Oakes M.D. 1 9:43 AM [facility] - 1 11:59 PM [facility] Hospital Encounter HX [facility] LAB Ap Oakes M.D. 1 1:25 PM [facility] - 1 11:59 PM [facility] Hospital Encounter HX [facility] LAB Ap Oakes M.D. 1 1:00 PM [facility] - 1 11:59 PM [facility] Encounter [facility]X [facility] Ap Oakes M.D. 1 12:18 PM [facility] - 1 2:43 PM [facility] Encounter HX RST DOMITILLA 2D 1 - 1 12:18 PM [facility] Hospital Encounter HX NO MAPPING 1 7:00 AM [facility] - 1 3:07 PM [facility] Hospital Encounter HX RST DOMITILLA 2D 1 - 1 7:00 AM [facility] Hospital Encounter HX NO MAPPING 1 8:07 AM CDT - 1 11:59 PM CDT Hospital Encounter HX [facility] Ap Oakes M.D. 1 - 1 11:59 PM CDT Hospital Encounter HX NO MAPPING 1 5:46 AM CDT - 1 11:41 AM CDT Hospital Encounter HX RST UNIT 8-2 ORTHOPEDICS 1 2:57 PM CDT - 1 11:59 PM CDT Hospital Encounter HX NO MAPPING Alexandra Ambriz, Pharm.D., R.Ph. 0 3:16 PM CDT - 0 11:59 PM CDT Hospital Encounter [facility]X [facility] Olesya Fish, C.N.P., R.N. 0 9:03 AM CDT - 0 11:59 PM CDT Hospital Encounter HX NO MAPPING Jeffrey Garay, P.A.-C., P.A. 9 - 9 11:59 PM [facility] Hospital Encounter HX NO MAPPING 9 9:25 AM CDT Hospital Encounter HX NO MAPPING Jose A Muller M.D. 8 6:47 PM [facility] - 8 11:59 PM [facility] Hospital Encounter HX [facility] SLEEP FLOOR PRACTICE Storm Alejandra M.D. 8 3:02 PM [facility] - 8 4:09 PM [facility] Hospital Encounter HX RST ANGE 4C 8 - 8 Hospital Encounter HX NO MAPPING 7 - 7 11:59 PM CDT Hospital Encounter HX NO MAPPING 6 5:00 AM CDT - 6 1:55 PM CDT Hospital Encounter HX RST MIKE 2B 6 - 6 5:00 AM CDT Hospital Encounter HX NO MAPPING 6 - 6 11:59 PM CDT Hospital Encounter HX NO MAPPING 4 - 4 11:59 PM CDT Hospital Encounter HX NO MAPPING 4 6:06 PM CDT - 4 4:10 PM CDT Hospital Encounter HX RST UNIT 7-2 DERM ORTHO 4 - 4 11:59 PM CDT Hospital Encounter HX NO MAPPING 1 12:46 AM [facility] - 1 2:17 PM [facility] Hospital Encounter HX RST DOMENRIQUEA 5D 0 6:16 AM [facility] - 0 9:47 AM [facility] Hospital Encounter HX RST UNIT 5-4 GYNECOLOGY Allergies Active Allergy Reactions Criticality Noted Date Comments Iodinated Contrast Media Anaphylaxis High 01/28/2010 Latex Hives (Reselect Reaction) 01/28/2010 Metoclopramide Shortness of breath (Reselect Reaction) 01/16/2014 Tramadol Other (see comments) 07/25/2018 passed out Medications Medication Sig Dispensed Refills Start Date End Date Status zolpidem (AMBIEN) 5 mg tabletIndications: Restless Leg Syndrome TAKE 1 TABLET(5 MG) BY MOUTH AT BEDTIME NEEDED FOR SLEEP 60 tablet 01/12/2023 Active Additional Information Patient taking differently: 5 mg oral Bedtime PRN, sleep, Reported on 07/19/2023 cholecalciferol, vitamin D3, 25 mcg (1,000 Unit) tablet Take 25 mcg by mouth daily. Active metoprolol tartrate (LOPRESSOR) 25 mg tablet Take 0.5 tablets (12.5 mg total) by mouth 2 (two) times a day. 180 tablet 3 07/21/2023 Active dofetilide (TIKOSYN) 500 mcg capsule Take 1 capsule (500 mcg total) by mouth 2 (two) times a day. 180 capsule 3 07/21/2023 Active warfarin (COUMADIN) 5 mg tabletIndications: Atrial Fibrillation Paroxysmal (HCC),Assisted (Current) 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 Treatment,Thrombos is Deep Vein Acute Calf Right (HCC),Monitoring For Therapeutic Drug Therapy Please take as directed by your Anticoagulation Clinic. 106 tablet 3 09/03/2023 Active FLUoxetine (PROzac) 10 mg capsule Take 1 capsule by mouth daily. 10/29/2023 Active spironolactone (ALDACTONE) 25 mg tablet TAKE 1 TABLET(25 MG) BY MOUTH DAILY 90 tablet 3 11/03/2023 Active DME CPAPIndications:Ob structive Sleep Apnea Adult DME Order 1 each 12/08/2023 Active Jardiance 10 mg tablet TAKE 1 TABLET(10 MG) BY MOUTH EVERY MORNING BEFORE BREAKFAST 100 tablet 3 03/01/2024 Active pantoprazole (PROTONIX) 40 mg EC tablet Take 1 tablet (40 mg total) by mouth 2 (two) times a day before breakfast and dinner. 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 Coleman had very impressive pain in multiple joints on admission. This demanded significant amounts of IV Dilaudid by patient controlled pump. She quickly progressed to be classified as suffering from a systemic inflammatory response with a significant fever, decreasing blood pressure and elevated heart rate. By her second day here, her vitals had stabilized and, on discharge, she had been afebrile for over 24 hours. Urine cultures, blood cultures, viral serology tests, and tickborne disease serologies were obtained. The results at discharge were negative. She was found to be significantly dehydrated as well. She was given IV fluids for rehydration. She was initially covered with broad spectrum antibiotics, however these were stopped with the return to negative cultures. She improved clinically and was transitioned from a pump to oral pain medications. At discharge, her pain was well controlled and her arthralgias seemed to have almost totally resolved. 03/26/2022 TC: See March 22 notes - poor sleep with steroid but not particularly helpful, not productive, no fever, minimally productive, not worse but not improving, cough at night is main concern - discussed, try Robitussin AC prn cough, observe, return or call prn 03/27/2022 TC: Sleeping sl better but still cough - not productive, no fever, see above re GERD History Of Falling 05/15/2019 Pain Breast 05/15/2019 Overview: 05/15/2019 Past 4-5 weeks pain to nipples with touch and rubbing of shirt. Right worse than left. Denies: nipple discharge, dimpling, axilla pain, skin changes, fever. No family history of breast cancer. Last mammogram in May 2018. Frequently does not wear bras. PLAN: diagnostic mammogram, conservative care discussed. Primary Osteoarthritis Knee Right 12/02/2018 Overview: 06/18/2022 Ambivalent re TKA - discussed, since no pain or limitation now, could contact Dr Moore team and defer for six mos or so. Rotator Cuff Disorder Right 12/02/2018 Atrial Fibrillation Paroxysmal 12/02/2018 Overview: #9 paroxysmal atrial fibrillation - S/P ablation 11/22: Hospitalized with a. fib but spont. resolution, negative ECHO, pos eval later for sleep apnea - proceed with CPAP and observe. ??Discussed in detail x25 min. ?? 10/25: Another episode PAF - try metoprolol tartrate 12.5 mg BID and observe, may need to increase dose to 25 mg BID or more. ?? 08/26: DC metoprlol tartrate (which she is only taking 25 mg once daily anyway) and start metoprolol succinate 25 mg once daily ?? 09/27: See Dr Buckley notes - decided to defer ablation 07/28 but another episode PAF with ED cardioversion 09/13/13 - NSR 09/15/13 and will be reconnecting with Dr. Buckley to proceed with ablation. ??Discussed in detail x25 min. ?? 07/25/2018 See ED notes from late Jun 2018 - cardioversion, apparent NSR until wrapping up [facility] trip 07/23/18 - HR max 120 on metoprolol succinate 25 mg once daily - a.fib on exam today - discussed, to Rhythm Service for iv sotalol - back to Sleep Medicine for continued efforts re STANLEY Rx. 09/16/2021 NSR on sotalol 120 mg BID ?? Assisted (Current) 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 Treatment 11/2017 Overview: 07/03/2019 [facility] A/C team to advise re postop reinitiation - DC warfarin 5-7 days preop, no bridging pre op needed. 06/17/[address] Moore protocol - DC warfarin 5-7 days preop, no bridging pre op needed., need POST operative bridging with LMWH until therapeutic INR again Has not tolerated NOAC in past (see Dr Buckley notes) could discuss alternatives to warfarin with Thromophilia Team Monitoring For Therapeutic Drug Therapy 09/15/20 18 Sleep Apnea 07/25/2018 Overview: #10 obstructive sleep apnea 11/22: Pos eval after a. fib - better with CPAP but still getting used to machine - encouraged, continue current regimen, call or return as needed. ?? 09/27: Working with Sleep Center to find CPAP device that she can tolerate. 01/26: Has not been able to use any CPAP device, does not believe she is tired. ?? 12/01: RLS sx completely resolved she reports off Mirapex, off gabapentin, not needing CPAP, sleeping like baby ?? 03/31: I remain concerned that many sx are related to untreated sleep apnea, acknowledged that Rx is problematic. 07/25/2018 Recurrence PAF - return to Sleep Medicine 12/02/2018 decided CPAP not required 05/15/2019 Regularly tired, willing to try CPAP again. 07/03/2019 Fatigue better since DCing betablocker. No concern re anesthesia. No concern re a.fib - no need for Sleep Medicine consult preop. 09/16/2021 Cannot tolerate CPAP, would consider Sleep CBT sessions Maintenance Health Adult 07/25/2018 Overview: health maintenance - normal WALE 04/20: Hyst/BSO. Mammo negative 2003, 05/20, 06/21, 06/22, 08/23, 08/24, 08/26, 08/27, 04/28, 05/29, pending 05/30. Colonoscopy 2002. BMD excellent 05/18. Glucose 106 06/22. TSH 4.2 06/22 ?? 08/25: Overall excellent health - would be OKA for LEFT TKA 12/03: Overall excellent health - would be OKA for RIGHT TKA 06/17/2022 Overall excellent health - OKA Restless Leg Syndrome 07/25/2018 Overview: #5 restless legs syndrome 04/20: Controlled partially with Mirapex 0.5 to 0.75 mg hs. - another reason for exercise. ?? 11/22, 06/22: Increase Mirapex to 0.25 mg (one half of 0.5 mg tablet) in afternoon and 0.75 mg (one and one-half of 0.5 mg tablets) at bedtime - good control 06/22 ?? 12/01: RLS sx completely resolved she reports off Mirapex, off gabapentin, not needing CPAP, sleeping like baby Thrombosis Deep Vein Personal History 07/25/2018 Overview: #8 PH DVT/pain right calf - resolved 03/21: LEFT calf DVT 10/15, negative PH or FH, was on estrogen then, coagulation workup deferred. Hospitalized with dehydration, fever, and diarrhea 03/28-30/05 with relative inactivity at home thereafter, increasing RIGHT lateral calf pain beginning approx 04/04/07, pos US for clot right posterior tibial vein 04/06/07, Rx' ed with ASA only. Minimal Sx, mild tenderness upper half of medial calf to deep compression, but otherwise benign exam - [facility] US negative - observe only. ?? 04/14/07: Doing better, observe only 07/03/2019 Continue warfarin - need POST operative bridging with LMWH until therapeutic INR again 06/17/[address] Moore protocol - DC warfarin 5-7 days preop, no bridging pre op needed., need POST operative bridging with LMWH until therapeutic INR again If planning TKA, proceed with appt. If not planning TKA, can cancel this appt also. 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 B: Tramadol and codeine are pro-drugs dependent on CYP 2D6 for activation. ??The ratios of parent drug to active metabolite are not predictable in rapid metabolizers, therefore recommend to avoid tramadol and codeine. ?? A: Pain medications not dependent on CYP 2D6 metabolism include morphine, hydromorphone (Dilaudid) or fentanyl. ??Additionally, oxycodone and hydrocodone/Acetaminophen are less dependent on CYP 2D6 and are reasonable to consider. R: Avoid tramadol and codeine for post-op pain management. ??Consider morphine, hydromorphone, oxycodone or hydrocodone/APAP as alternative options. ?? Polyp Colon Adenomatous Personal History 014 Overview: 2013: Dr Alvares: #2 History of adenomatous colon polyps Four small colon polyps were removed during a colonoscopy this time. She will require a repeat colonoscopy in three to five years. Biopsies demonstrated tubular adenomas . 06/16/2022 3 sessile polyps tubular adenoma low grade dysplasia - repeat 2024 Atrial Fibrillation Unspecified 11/25/2013 Overview: #9 paroxysmal atrial fibrillation - S/P ablation 11/22: Hospitalized with a. fib but spont. resolution, negative ECHO, pos eval later for sleep apnea - proceed with CPAP and observe. Discussed in detail x25 min. ?? 10/25: Another episode PAF - try metoprolol tartrate 12.5 mg BID and observe, may need to increase dose to 25 mg BID or more. ?? 08/26: DC metoprlol tartrate (which she is only taking 25 mg once daily anyway) and start metoprolol succinate 25 mg once daily ?? 09/27: See Dr Buckley notes - decided to defer ablation 07/28 but another episode PAF with ED cardioversion 09/13/13 - NSR 09/15/13 and will be reconnecting with Dr. Buckley to proceed with ablation. Discussed in detail x25 min. 07/25/2018 See ED notes from late Jun 2018 - cardioversion, apparent NSR until wrapping up [facility] trip 07/23/18 - HR max 120 on metoprolol succinate 25 mg once daily - a.fib on exam today - discussed, to Rhythm Service for iv sotalol - back to Sleep Medicine for continued efforts re STANLEY Rx. Asthma Mild Intermittent 10/11/2011 Overview: Asthma NOS, w/o acute exacerbation Hypertension Essential Primary 01/28/2010 Overview: Hypertension Essential, Benign #4 Hypertension 11/20: HCTZ 25 mg once daily, BP 142/80 off meds ?? 04/20: BP 112/74 on HCTZ 25 mg once daily. ?? 03/21: BP 100/60 on HCTZ 25 mg once daily. ?? 07/22: BP 124/82 on HCTZ 25 mg once daily - exercise! BP 110/78 06/22: BP 100/60 on HCTZ 25 mg once daily. 10/25: Could try DCing HCTZ, be alert for edema, BP rise, etc.. 08/26: Doing well on HCTZ 12.5 mg once daily 04/30: BP 134/79 on HCTZ 12.5 mg once daily 06/17/2022 BP 152/76 on HCTZ 12.5 once daily Gastroesophageal Reflux Disease Without Esophagi tis 01/28/2010 Overview: #2 GERD/esophageal motility disorder/recurrent cough/non ulcer dyspepsia 11/20: Cough since 10/19, clear sputum, worse at night, emesis with cough sometimes, PH recurrent bronchitis. ?? 04/20: SOB/cough since 05/05/06, some chest tightness, not productive, spasmodic, no fever/chills. Has used albuterol MDI. Note normal PFTs/meth challenge 01/15, but pos allergy testing, suggested Advair Diskus and Singulair, could even consider nebulized lidocaine - never needed and had spont. resolution. ?? : Marked improvement. Continue Advair and Singulair into early 05/20 or prn ?? 03/21: Negative Allergy evaluation spring. Positive pH for reflux - started on Prilosec 20 mg once daily 03/21, switched to Protonix 20 mg BID 04/08/07 - observe, may need fundoplication if Sx persist. ?? 04/14/07: TC: Feeling better, less cough on Protonix 20 mg BID - recheck PRN ?? 07/22: Marked improvement on Protonix 40 mg twice daily - continue current Rx. ?? 07/24: 12 days of cough and resultant loss of voice. No fever/chills, throat pain. Trial of prednisone and azithromax couple days ago. - repeat Prednisone burst 80 mg once daily for two days, then 40 mg once daily for 7-10 days, Robitussin AC OR Percocet plus OTC cough syrup for cough suppression, call or return as needed. ?? 12/25: Switch back to omeprazole 40 mg BID instead of pantoprazole for cost ?? 05/25: TC: omeprazole not as effective, switch back to pantoprazole 40 mg once daily in spite of cost ?? 10/25: Wt loss, anorexia, nausea - bloating lower abdomen - EGD NEG 10/25 - reassured, observe. Celiac and TSH testing NEG ?? 01/26: No cough on pantoprazole 40 mg BID. Persistent nausea since early 11/28, no emesis, sl weight loss, no heartburn, no diarrhea. NEG exam at [facility] [place] 12/29, repeat exam benign 01/26. Discussed in detail - suspect that this is related to underlying esophageal motility disorder, perhaps also untreated sleep apnea and partially treated depression - Dr. Alvares kindly agreed to see and go over situation again as well. CXR and GB US pending. ?? 04/30: Chronic bronchospastic cough since apparent acute resp illness 11/15/15 - has been on abs, albuterol, no relief - this was preceded by several mos of progressive SOB/HUTCHISON (see below) and increasing chest pressure with exertion - no edema - no obvious CHF - TMET pending, if NEG, re-evaluate GERD, may need fundoplication if Sx persist - weight loss and exercise also. ?? 12/01: Wishes to try off PPI - planning pantoprazole 40 mg QOD - cautioned needs lifestyle strategies also, maureen if no PPI ?? 03/31: Discussed in detail - nausea 07/06 and intermittent heartburn - no difference off odansteron but clearly worse off PPI - suggested that both symptoms are probably related, suggested at least once daily PPI and monitor but remain off odansteron. Also discussed lifestyle measures - elevate HOB, continued wt loss, meal timing, etc - cannot saywhy she has this disorder, can say with near certainty that it is NOT a medication side effect so would not stop Rx in hopes of relieving GI sx. 03/27/2022 TC: Persistent cough, but also worsening GERD sx - continue pantoprazole 40 mg BID, try elevating HOB with blocks (Sleep Number mattress may be increasing intraabdominal pressure), repeat EGD and GI DC warfarin 5 days pre-procedure, no bridging pre op needed. 04/02/2022 POS EGD hiatal hernia, [place] erosions, gastropathy Depression Major Recurrent Full Remission 2009 Overview: #3 Depression 11/20: Increased stressors at work, illness of member of 's family - crying, polyphagia, poor sleep, restless legs, no exercise ?? 04/20: Sadness, wonders about effectiveness of Zoloft 200 mg once daily and Trazodone 50 mg hs, DC Trazodone and try Ambien 10 mg once daily. Emphasized exercise in detail, consider counseling/Psych referral. ?? 03/21: Depression Sx persist - switched to Lexapro 20 mg once daily spring. Discussed in detail - just never feels well, concerned re multiple, repeat illnesses - sounds like typical, self-limited viral illnesses, never needing any particular intervention, more concerned that pattern is different than perceived health of friends - she is retired as of 04/08/07 - observe, perhaps consider DC' ing antidepressant with slow taper over summer ?? 04/08/07: Called re normal CBC, Na, K, AST, creat, TSH - observe only, recheck as discussed. ?? 05/21: Fatigue and depressive Sx - reviewed labs and findings of 03/21, observe for now, call or return as needed, continues on Lexapro 10 mg once daily ?? 07/22: Poor sleep, occ. clumsiness, exam benign, still feels busy - discussed in detail, increase Lexapro to 10 mg twice daily and observe. ?? 12/24: Email: Poor sleep, increase Lexapro to 20 mg once daily, consider CBT - she would like to pursue non pharm modalities - Mr Matthews kindly agreed to triage. ?? 11/24: Wishes to pursue CBT/counseling - daughter with attempted adoption and biological mother reclaiming baby after 12 days, father in law with terminal leukemia, no exercise, etc. - normal TSH, CBC, Na, K, creat, glucose - reassured. Doing well on Lexapro 20 mg BID ?? 07/26: Tearful during visit. Worsening depressive symptoms not well controlled on Lexapro 20 mg daily (maximal dose). Negative general medical lab work up for persistent fatigue. PHQ score equivalent to moderate to severe depression. Endorse vegetative symptoms of depression and significant for anhedonia and persistent depressed mood,decreased sleep, decreased libido, increased appetite, and feelings of worthlessness. Patient open to medication management consultation with Psychiatrist and therapy. Given information about [facility] program. [facility] nurse will f/u with patient. ?? 08/26: Not doing well on fluoxetine 10 mg, PHQ 17 - dsicussed in detail, DC fluoxetine, start buproprion XL 150 mg once daily and advance to 300 mg once daily, monitor PHQ and reenrioll in [facility] ?? 01/26: Depression under fair control on buproprion XL 300 mg once daily, PHQ=12 ?? 03/31: Sl tearful, describes sleeping a lot on January vacation in [place] - glad that spouse was off golfing by 8 AM so she didn't have to get up...wishes to DC buproprion - suggested decreasing to buproprion XL 150 mg through mid April and then DC - while I can support this and give advice, I am unable to endorse this as a good idea particularly without an alternative strategy planned. 07/25/2018 Taking Wellbutrin SR 150 mg QOD - wishes to DC entirely - no need to taper from here, but would Rx STANLEY before DCing 06/17/2022 Doing well. Hyperlipidemia 07/12/2008 Overview: #6 hyperlipidemia 04/20: T. chol 282, HDL 68, TG 159, LDL 182 - work on diet and exercise, recommending repeat lipids late fall ?? 03/21: T. chol 229, HDL 57, TG 144, LDL 143 on minimal exercise - discussed in detail, repeat lipids 06/22. ?? 06/22: T. chol 248, HDL 61, TG 169, LDL 153 on minimal exercise - discussed in detail, repeat lipids 06/23. ?? 08/24: T. chol 237, HDL 61, TG 100, LDL 156 on increased exercise and wt loss - discussed in detail. ?? 08/26: T.chol 258, HDL 60, TG 248, LDL 148 ?? 05/29: T.chol 261, HDL 71, TG 132, LDL 164 on NO Rx - consider atorvastatin 20 mg once ruiz ?? 04/30: Excellent response to atorvastatin but could not tolerate. On NO Rx as of 04/30 ?? 10/25: Wt loss, anorexia, nausea - bloating lower abdomen - EGD NEG 10/25 - reassured, observe. Celiac and TSH testing NEG Resolved Problems Problem Noted Date Diagnosed Date Resolved Date Bronchitis Chronic 06/25/2021 Pneumonia Due To COVID-19 09/08/2020 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 Therapy [Z79.01] 10/02/2017 08/12/2018 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 10/09/2011 08/12/2018 Immunizations Name Administration Dates Next Due DTaP (Infanrix, Tripedia) 05/14/2006 H1N1 Inj 12/04/2009 HZV (ZOSTAVAX) 12/04/2009 Influenza (IM) Preservative Free 09/07/2011,03/2008,09/19/2008 Influenza Split 08/13/2016,,09/15/2014,2012,08/19/2012,10/06/1996,09/01/1995 Influenza high dose QV(65 ye ars or older) (PF) 09/24/2020,09/08/2020() Influenza, Seasonal, Injectable 08/19/2012,10/06,09/01/1995 Influenza, Unspecified 09/08/2020(Deferr ed: Other),08/24/2017,08/20/2015,09/18/2014 ,08/30/2013,08/29/2011,09/15/2010 PCV13 05/05/2016 PPSV23 08/23/2012 RZV (SHINGRIX) 06/15/2018,03/01/2018 SARS-COV-2 (COVID-19) - PFIZ ER (Discontinued)(12 years or older) 01/15/2021,12/25/2020 Td (Adult), adsorbed 12/10/2016(Deferred: Other) ,01/21/1999 Td Preservative Free (TENIVA C, DECAVAC) 04/06/2017 Tdap 05/14/2006 influenza high dose (65 year s or older) (PF) 08/23/2019,08/25/2018,08/24/2017,2015,08/20/2015 Family History Medical History Relation Name Comments Alcohol abuse Father Cale nieves Coronary artery disease Father Cale nieves Heart attack Father Cale nieves Cancer Mother Relation Name Status Comments Father Cale nieves Mother Social History Smoking Status as of 05/08/2024 Tobacco Use Types Packs/Day Years Used Date Smoking Tobacco: Never Assessed Humiliation, Afraid, Rape, and Kick questionnair e Answer Date Recorded Within the last year, have y ou been afraid of your partner or ex-partner? No 05/26/2023 Within the last year, have y ou been humiliated or emotionally abused in other ways by your partner or ex-partner? No Within the last year, have y ou been kicked, hit, slapped, or otherwise physically hurt by your partner or ex-partner? No 05/26/2023 Within the last year, have y ou been raped or forced to have any kind of sexual activity by your partner or ex-partner? No 05/26/2023 Social Connection and Isolat ion Panel [NHANES] Answer Date Recorded In a typical week, how many times do you talk on the phone with family, friends, or neighbors? More than three times a week 02/25/2022 How often do you get togethe r with friends or relatives? Once a week 02/25/2022 How often do you attend chur or anglican services? More than 4 times per year 02/25/2022 Do you belong to any clubs o r organizations such as buddhism groups, unions, fraternal or athletic groups, or school groups? Yes 02/25/2022 How often do you attend meet ings of the clubs or organizations you belong to? More than 4 times per year 02/25/2022 Are you , , di vorced, , never , or living with a partner? 02/25/2022 AUDIT-C Answer Date Recorded Q1: How often do you have a drink containing alc ohol? 2-4 times a month 02/25/2022 Q2: How many drinks containi ng alcohol do you have on a typical day when you are drinking? 1 or 2 02/25/2022 Q3: How often do you have si x or more drinks on one occasion? Never 02/25/2022 Overall Financial Resource Strain (CARDIA) Answe r Date Recorded How hard is it for you to pa y for the very basics like food, housing, medical care, and heating? Not hard at all 05/26/2023 PHQ-2 Answer Date Recorded PHQ-2 Score 3 04/26/2024 [facility] [employer]at [facility] - Occupational Stress Questionnaire Answer Date Recorded Do you feel stress - tense, restless, nervous, or anxious, or unable to sleep at night because your mind is troubled all the time - these days? To some extent 02/25/2022 Exercise Vital Sign Answer Date Recorde d On average, how many days pe r week do you engage in moderate to strenuous exercise (like a brisk walk)? 3 days 05/26/2023 On average, how many minutes do you engage in exercise at this level? 20 min 05/26/2023 Hunger Vital Sign Answer Date Recorded Within the past 12 months, y ou worried that your food would run out before you got the money to buy more. Never true 05/26/20 23 Within the past 12 months, t he food you bought just didn't last and you didn't have money to get more. Never true 05/26/2023 PRAPARE - Transportation Answer Date Re corded In the past 12 months, has l ack of transportation kept you from medical appointments or from getting medications? No 05/15 In the past 12 months, has l ack of transportation kept you from meetings, work, or from getting things needed for daily living? No 05/26/2023 Depression Answer Date Recor ded PHQ-9 Total Score (max 27) 8 04/26 Nutrition Answer Date Recorded On average, how many serving s of fruits and vegetables do you eat per day (serving size is equal to 1 cup or approximately the size of a tennis ball)? 0-2 05/26/2023 Dental Answer Date Recorded Dental: Regular Dentist Yes 01/07/20 21 Employment Answer Date Recorded Employment status Retired 05/26/2023 Housing Stability Answer Date Recorded What is your living situation today? I have a [facility] place to live 05/26/2023 Education Answer Date Recorded What is the highest level of school you have completed or the highest degree you have received? Master's degree (e.g., MA, MS, Tacho, MEd, CIRCULATION ASSISTANT, [employer]AR[employer]) 06/27/2019 Sex and Gender Information Value Date Recorded Sex Assigned at Female 11/24/2017 7:34 PM [facility]ARCH Gender Identity Female 05/03/2021 11:34 AM CDT Sexual Orientation Straight 05/03/2021 11 :34 AM CDT Last Filed Vital Signs Vital Sign Reading Time Taken Comments Blood Pressure 122/78 04/27/2024 4:06 PM CDT Pulse 63 04/27/2024 4:06 PM CDT Temperature 36.4 ??C (97.5 ??F) 11/03/2023 2:50 PM CS T Respiratory Rate 16 11/03/2023 5:34 PM COOK STARCH Oxygen Saturation 96% 11/03/2023 9:29 AM COOK STARCH Inhaled Oxygen Concentration - - Weight 92.7 kg (204 lb 5.9 oz) 04/27/2024 4:06 P M CDT Height 154.9 cm (5' 0.98) 04/27/2024 4:06 PM CD T Body Mass Index 38.63 04/27/2024 4:06 PM CDT Plan of Treatment Upcoming Encounters Date Type Department Care Team (Latest Contact Info) Description 05/08/2024 2:00 PM CDT Anticoagulation Visit Department of Anticoagulation in [place], [place] [address] [place] [phone] Emilia Lincoln M.D. [address] [place] [phone] Thrombosis Deep Vein Personal History (Primary Dx); 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; Monitoring For Therapeutic Drug Therapy; Atrial Fibrillation Paroxysmal (HCC) 05/25/2024 3:30 PM CDT Office Visit [facility] in [place], [place] [address] [place] [phone] Silvino Pineda D.O., M.S. [address] [place] [address] [phone] 2024 8:15 AM CDT Anticoagulation Visit Department of Anticoagulation in [place], [place] [address] [place] [phone] Emilia Lincoln M.D. [address] [place] [phone] Medical Devices Implanted Type Area Warp Picker Device Identifier Shelf Expiration Date Model / Serial / Lot J J Patella Rev Round 32m - [id number] Implanted:Qty: 1 on 09/11/2011 Knee Implant Other/Legacy - See Implant Description [employer] Description:Device Manufactu rer - [employer]. Body Location - Other. Left. Device Status Text - KNEE [id number]. Depuy-Insert Stabilized Sz 3 10mm - Rodriguez [id number] Implanted:Qty: 1 on 09/11/2011 Knee Implant Other/Legacy - See Implant Description [employer] Description:Device Manufactu rer - [employer]. Body Location - Other. Left. Device Status Text - KNEE [id number]. Sigma Post Stab.W Lug Fem Sz 3 Lt - Rodriguez [id number] Implanted:Qty: 1 on 09/11/2011 Knee Implant Other/Legacy - See Implant Description [employer] Description:Device Manufactu rer - [employer]. Body Location - Other. Left. Device Status Text - KNEE [id number]. Depuy-Tib Tray Mod Cement Cocr Sz3 - Rodriguez [id number] Implanted:Qty: 1 on 09/11/2011 Knee Implant Other/Legacy - See Implant Description [employer] Description:Device Manufactu rer - [employer]. Body Location - Other. Left. Device Status Text - KNEE [id number]. Conversions - Default Historical Implant Device Implanted:09/27 (Quantity not on file) Knee Implant Description:Device Status Te xt - Knee Imp. artificial left knee. Cement Bone Large - Rodriguez [id number] Implanted:Qty: 2 on 09/11/2011 Misc Other [employer] Description:Device Manufactu rer - [employer].. Device Status Text - [id number]. Lens Ma30ba 5.5 X 15.5 - Rodriguez [id number] Implanted:Qty: 1 on 03/06/1999 Ocular Lens [employer] Description:Device Manufactu rer - [employer]. Device Status Text - [id number]. Lens Ma30ba 5.5 X 15.5 - Rodriguez [id number] Implanted:Qty: 1 on 04/09/1999 Ocular Lens [employer] Description:Device Manufactu rer - [employer]. Device Status Text - [id number]. Procedures Procedure Name Priority Date/Time Associated Diagnosis Comments PROTHROMBIN TIME (PT), P Routine 05/08/2024 PROTHROMBIN TIME (PT), P Routine 05/01/2024 (TTE) 2D ECHO DOPPLER COLOR Routine 04/27/2024 1:10 PM CDT Failure Heart (HCC) DX CHEST AP OR PA AND LATERAL 2 VIEWS RAD - Routine (most inpatients and all outpatients) 04/27/2024 9:32 AM CDT Failure Heart (HCC) ECG Routine 04/27/2024 8:55 AM CDT Failure Heart (HCC) NT-PRO B-TYPE NATRIURETIC PEPTIDE (BNP), S Routine 04/27/2024 8:42 AM CDT Failure Heart (HCC) BICARBONATE, B/S/P Routine 04/27/2024 8:42 AM CDT Failure Heart (HCC) THYROID-STIMULATING HORMONE-SENSITIVE (S-TSH) Routine 04/27/2024 8:42 AM CDT Failure Heart (HCC) CBC WITH DIFFERENTIAL, B Routine 04/27/2024 8:42 AM CDT Failure Heart (HCC) LIPID PANEL, S Routine 04/27/2024 8:42 AM CDT Failure Heart (HCC) BUN (BLOOD UREA NITROGEN), S/P Routine 04/27/2024 8:42 AM CDT Failure Heart (HCC) ASPARTATE AMINOTRANSFERASE (AST), S/P Routine 04/27/2024 8:42 AM CDT Failure Heart (HCC) GLUCOSE, FASTING, S/P Routine 04/27/2024 8:42 AM CDT Failure Heart (HCC) SODIUM, S/P Routine 04/27/2024 8:42 AM CDT Failure Heart (HCC) CREATININE WITH EGFR, S/P Routine 04/27/2024 8:42 AM CDT Atrial Fibrillation Paroxysmal (HCC) POTASSIUM, S/P Routine 04/27/2024 8:42 AM CDT Atrial Fibrillation Paroxysmal (HCC) THYROPEROXIDASE (TPO) ABS, S Routine 04/27/2024 8:37 AM CDT MO T4 FREE Routine 04/27/2024 8:37 AM CDT THYROID FUNCTION CASCADE, S Routine 04/27/2024 8:37 AM CDT Chronic Diastolic (Congestive) Heart Failure (HCC) Hypertension Essential Primary Atrial Fibrillation Paroxysmal (HCC) Sleep Apnea Hyperlipidemia PROTHROMBIN TIME (PT), P Routine 04/24/2024 PROTHROMBIN TIME (PT), P Routine 04/17/2024 PROTHROMBIN TIME (PT), P Routine 04/10/2024 PROTHROMBIN TIME (PT), P Routine 04/03/2024 INR REFLEX, POCT, B Routine 03/29/2024 2:26 PM CDT Atrial Fibrillation Paroxysmal (HCC) 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 Monitoring For Therapeutic Drug Therapy Thrombosis Deep Vein Personal History PROTHROMBIN TIME (PT), P Routine 03/13/2024 PROTHROMBIN TIME (PT), P Routine 03/06/2024 PROTHROMBIN TIME (PT), P Routine 02/28/2024 PROTHROMBIN TIME (PT), P Routine 02/21/2024 PROTHROMBIN TIME (PT), P Routine 02/14/2024 PROTHROMBIN TIME (PT), P Routine 02/07/2024 PROTHROMBIN TIME (PT), P Routine 01/31/2024 PROTHROMBIN TIME (PT), P Routine 01/24/2024 PROTHROMBIN TIME (PT), P Routine 01/17/2024 PROTHROMBIN TIME (PT), P Routine 01/10/2024 PROTHROMBIN TIME (PT), P Routine 01/03/2024 PROTHROMBIN TIME (PT), P Routine 12/27/2023 PROTHROMBIN TIME (PT), P Routine 12/20/2023 POCT INR, B - MANUAL Routine 12/13/2023 Atrial Fibrillation Paroxysmal (HCC) Assisted (Current) 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 Treatment Monitoring For Therapeutic Drug Therapy Thrombosis Deep Vein Personal History PROTHROMBIN TIME (PT), P Routine 12/06/2023 PROTHROMBIN TIME (PT), P Routine 11/29/2023 MO HOME SLEEP TEST TYPE CINDY 4 Routine 11/25/2023 10:32 AM [facility] Obstructive Sleep Apnea Adult PROTHROMBIN TIME (PT), P Routine 11/22/2023 PROTHROMBIN TIME (PT), P Routine 11/15/2023 RENAL FUNCTION PANEL, S Routine 11/10/2023 9:51 AM [facility] Hypertension Pulmonary (HCC) Anemia Iron Deficiency Chronic Diastolic (Congestive) Heart Failure (HCC) PROTHROMBIN TIME (PT), P Routine 11/08/2023 6 MINUTE WALK Routine 11/03/2023 10:00 AM [facility] Hypertension Pulmonary (HCC) ECG Routine 11/01/2023 4:15 PM [facility] Atrial Fibrillation Unspecified (HCC) Atrial Fibrillation Paroxysmal (HCC) (TTE) 2D ECHO DOPPLER COLOR Routine 11/01/2023 2:55 PM [facility] Hypertension Pulmonary (HCC) FERRITIN, S Routine 11/01/2023 1:25 PM [facility] IRON AND TOT IRON-BINDING CAPACITY, S/P Routine 11/01/2023 1:25 PM [facility] Hypertension Pulmonary (HCC) Anemia Iron Deficiency COMPREHENSIVE METABOLIC PANEL, S/P Routine 11/01/2023 1:25 PM [facility] Hypertension Pulmonary (HCC) NT-PRO B-TYPE NATRIURETIC PEPTIDE (BNP), S Routine 11/01/2023 1:25 PM [facility] Hypertension Pulmonary (HCC) CBC WITH DIFFERENTIAL, B Routine 11/01/2023 1:25 PM [facility] Hypertension Pulmonary (HCC) MAGNESIUM, S Routine 11/01/2023 1:25 PM [facility] Atrial Fibrillation Unspecified (HCC) Atrial Fibrillation Paroxysmal (HCC) LIPID PANEL, S Routine 11/01/2023 1:25 PM [facility] Hyperlipidemia PROTHROMBIN TIME (PT), P Routine 10/18/2023 PROTHROMBIN TIME (PT), P Routine 10/11/2023 PROTHROMBIN TIME (PT), P Routine 10/04/2023 PROTHROMBIN TIME (PT), P Routine 09/27/2023 PROTHROMBIN TIME (PT), P Routine 09/20/2023 PROTHROMBIN TIME (PT), P Routine 09/14/2023 PROTHROMBIN TIME (PT), P Routine 09/06/2023 PROTHROMBIN TIME (PT), P Routine 08/30/2023 BI BREAST SCREENING BILATERAL WITH TOMOSYNTHESIS RAD - Routine (most inpatients and all outpatients) 08/23/2023 1:41 PM CDT Screening Mammogram Breast Cancer PROTHROMBIN TIME (PT), P Routine 08/23/2023 PROTHROMBIN TIME (PT), P Routine 08/16/2023 PROTHROMBIN TIME (PT), P Routine 08/09/2023 PROTHROMBIN TIME (PT), P Routine 08/02/2023 PROTHROMBIN TIME (PT), P Routine 07/26/2023 PROTHROMBIN TIME (PT), P Routine 07/23/2023 ECG STAT 07/21/2023 2:58 PM CDT ADULT OXYGEN THERAPY Routine 07/21/2023 2:54 PM CDT ECG Routine 07/21/2023 10:40 AM CDT MAGNESIUM, S Routine 07/21/2023 6:09 AM CDT BASIC METABOLIC PANEL, S/P Routine 07/21/2023 6:09 AM CDT PROTHROMBIN TIME (PT), P Routine 07/21/2023 6:09 AM CDT ECG Routine 07/20/2023 10:37 PM CDT ECG STAT 07/20/2023 5:12 PM CDT ECG Routine 07/20/2023 10:53 AM CDT ADULT OXYGEN THERAPY Routine 07/20/2023 8:00 AM CDT MAGNESIUM, S Routine 07/20/2023 7:42 AM CDT BASIC METABOLIC PANEL, S/P Routine 07/20/2023 7:42 AM CDT PROTHROMBIN TIME (PT), P Routine 07/20/2023 7:42 AM CDT ECG Routine 07/20/2023 12:11 AM CDT ADULT OXYGEN THERAPY Routine 07/19/2023 8:01 PM CDT ECG Routine 07/19/2023 2:21 PM CDT POTASSIUM, S/P STAT 07/19/2023 8:47 AM CDT ADULT OXYGEN THERAPY Routine 07/19/2023 8:01 AM CDT PROTHROMBIN TIME (PT), P STAT 07/19/2023 7:31 AM CDT MAGNESIUM, S STAT 07/19/2023 7:31 AM CDT CBC WITH DIFFERENTIAL, B STAT 07/19/2023 7:31 AM CDT BASIC METABOLIC PANEL, S/P STAT 07/19/2023 7:31 AM CDT ECG Routine 07/19/2023 7:19 AM CDT ADULT OXYGEN THERAPY Routine 07/19/2023 6:52 AM CDT ADULT OXYGEN THERAPY Routine 07/19/2023 6:52 AM CDT ADULT OXYGEN THERAPY Routine 07/19/2023 6:52 AM CDT PROTHROMBIN TIME (PT), P Routine 07/12/2023 ECG Routine 07/08/2023 12:50 PM CDT Atrial Fibrillation Unspecified (HCC) PROTHROMBIN TIME (PT), P Routine 06/28/2023 PROTHROMBIN TIME (PT), P Routine 06/21/2023 PROTHROMBIN TIME (PT), P Routine 06/14/2023 PROTHROMBIN TIME (PT), P Routine 06/07/2023 POTASSIUM, S/P Routine 05/31/2023 7:22 AM CDT Atrial Fibrillation Unspecified (HCC) CREATININE WITH EGFR, S/P Routine 05/31/2023 7:22 AM CDT Atrial Fibrillation Unspecified (HCC) ECG Routine 05/31/2023 6:52 AM CDT Atrial Fibrillation Unspecified (HCC) PROTHROMBIN TIME (PT), P Routine 05/31/2023 PROTHROMBIN TIME (PT), P Routine 05/24/2023 PROTHROMBIN TIME (PT), P Routine 05/17/2023 PROTHROMBIN TIME (PT), P Routine 05/10/2023 PROTHROMBIN TIME (PT), P Routine 05/03/2023 PROTHROMBIN TIME (PT), P Routine 04/26/2023 INR REFLEX, POCT, B Routine 04/19/2023 3:23 PM CDT Atrial Fibrillation Paroxysmal (HCC) 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 Monitoring For Therapeutic Drug Therapy INR REFLEX, POCT, B Routine 04/19/2023 3:22 PM CDT PROTHROMBIN TIME (PT), P Routine 04/12/2023 HOLTER MONITOR - IN CLINIC RN TELEPHONE TRIAGE Routine 04/08/2023 6:41 PM CDT Atrial Fibrillation Paroxysmal (HCC) ECG Routine 04/07/2023 3:03 PM CDT Atrial Fibrillation Paroxysmal (HCC) PROTHROMBIN TIME (PT), P Routine 04/05/2023 PROTHROMBIN TIME (PT), P Routine 03/29/2023 PROTHROMBIN TIME (PT), P Routine 03/22/2023 BMD BONE DENSITY SPINE HIPS RAD - Routine (most inpatients and all outpatients) 03/18/2023 10:47 AM CDT Deficiency Estrogen Post Menopausal PROTHROMBIN TIME (PT), P Routine 03/15/2023 PROTHROMBIN TIME (PT), P Routine 03/08/2023 PROTHROMBIN TIME (PT), P Routine 03/01/2023 PROTHROMBIN TIME (PT), P Routine 02/22/2023 PROTHROMBIN TIME (PT), P Routine 02/15/2023 PROTHROMBIN TIME (PT), P Routine 02/08/2023 PROTHROMBIN TIME (PT), P Routine 02/01/2023 PROTHROMBIN TIME (PT), P Routine 01/25/2023 PROTHROMBIN TIME (PT), P Routine 01/18/2023 PROTHROMBIN TIME (PT), P Routine 01/11/2023 PROTHROMBIN TIME (PT), P Routine 01/04/2023 PROTHROMBIN TIME (PT), P Routine 12/28/2022 PROTHROMBIN TIME (PT), P Routine 12/21/2022 PROTHROMBIN TIME (PT), P Routine 12/14/2022 PROTHROMBIN TIME (PT), P Routine 12/07/2022 PROTHROMBIN TIME (PT), P Routine 11/30/2022 PROTHROMBIN TIME (PT), P Routine 11/23/2022 PROTHROMBIN TIME (PT), P Routine 11/16/2022 ECHO STRESS 2D WITH COLOR, LIMITED DOPPLER AND CONTRAST Routine 11/12/2022 3:12 PM [facility] Atrial Fibrillation Unspecified Dyspnea On Exertion ECG Routine 11/12/2022 10:38 AM [facility] Atrial Fibrillation Unspecified DX CHEST AP OR PA AND LATERAL 2 VIEWS RAD - Routine (most inpatients and all outpatients) 11/12/2022 9:23 AM [facility] Dyspnea On Exertion CBC WITHOUT DIFFERENTIAL, B Routine 11/12/2022 9:07 AM [facility] Atrial Fibrillation Unspecified Dyspnea On Exertion THYROID FUNCTION CASCADE, S Routine 11/12/2022 9:07 AM [facility] Atrial Fibrillation Unspecified CREATININE WITH EGFR, S/P Routine 11/12/2022 9:07 AM [facility] Atrial Fibrillation Unspecified POTASSIUM, S/P Routine 11/12/2022 9:07 AM [facility] Atrial Fibrillation Unspecified PROTHROMBIN TIME (PT), P Routine 11/09/2022 HOLTER MONITOR - IN CLINIC RN TELEPHONE TRIAGE Routine 11/05/2022 10:28 PM [facility] Atrial Fibrillation Unspecified PROTHROMBIN TIME (PT), P Routine 11/02/2022 PROTHROMBIN TIME (PT), P Routine 10/26/2022 PROTHROMBIN TIME (PT), P Routine 10/19/2022 PROTHROMBIN TIME (PT), P Routine 10/12/2022 PROTHROMBIN TIME (PT), P Routine 10/05/2022 PROTHROMBIN TIME (PT), P Routine 09/28/2022 PROTHROMBIN TIME (PT), P Routine 09/21/2022 PROTHROMBIN TIME (PT), P Routine 09/14/2022 PROTHROMBIN TIME (PT), P Routine 09/07/2022 PROTHROMBIN TIME (PT), P Routine 08/31/2022 PROTHROMBIN TIME (PT), P Routine 08/24/2022 BI BREAST SCREENING BILATERAL WITH TOMOSYNTHESIS RAD - Routine (most inpatients and all outpatients) 08/20/2022 10:53 AM CDT Screening Mammogram Breast Cancer ECG Routine 08/17/2022 1:19 PM CDT Atrial Fibrillation Paroxysmal (HCC) POTASSIUM, S/P Routine 08/17/2022 12:57 PM CDT Atrial Fibrillation Paroxysmal (HCC) CREATININE WITH EGFR, S/P Routine 08/17/2022 12:57 PM CDT Atrial Fibrillation Paroxysmal (HCC) PROTHROMBIN TIME (PT), P Routine 08/17/2022 CT HEAD WITHOUT IV CONTRAST RAD - Semiurgent (Fast; most ED patients; some inpatients) 08/09/2022 1:13 PM CDT Headache New PROTHROMBIN TIME (PT), P Routine 08/03/2022 PROTHROMBIN TIME (PT), P Routine 07/27/2022 PROTHROMBIN TIME (PT), P Routine 07/20/2022 PROTHROMBIN TIME (PT), P Routine 07/13/2022 PROTHROMBIN TIME (PT), P Routine 07/06/2022 PROTHROMBIN TIME (PT), P Routine 06/29/2022 PROTHROMBIN TIME (PT), P Routine 06/22/2022 PROTHROMBIN TIME (PT), P Routine 06/08/2022 MAGNESIUM, S Timed 06/06/2022 10:46 AM CDT BASIC METABOLIC PANEL, S/P Timed 06/06/2022 10:46 AM CDT ECG STAT 06/06/2022 6:23 AM CDT TROPONIN T, 2H/6H, 5TH GEN, P Timed 06/06/2022 1:05 AM CDT DX CHEST AP OR PA AND LATERAL 2 VIEWS RAD - Semiurgent (Fast; most ED patients; some inpatients) 06/06/2022 12:26 AM CDT ECG STAT 06/05/2022 10:51 PM CDT TROPONIN T, BASELINE, 5TH GEN, P STAT 06/05/2022 7:49 PM CDT PROTHROMBIN TIME (PT), P STAT 06/05/2022 7:49 PM CDT LIPASE, S/P STAT 06/05/2022 7:49 PM CDT HEPATIC FUNCTION PANEL, S STAT 06/05/2022 7:49 PM CDT BASIC METABOLIC PANEL, S/P STAT 06/05/2022 7:49 PM CDT CBC WITH DIFFERENTIAL, B STAT 06/05/2022 7:49 PM CDT ECG STAT 06/05/2022 7:36 PM CDT SURGICAL PATHOLOGY Routine 06/05/2022 11:15 AM CDT GASTROENTEROLOGY IMAGE EXAM Routine 06/05/2022 11:00 AM CDT COLONOSCOPY Routine 06/05/2022 10:57 AM CDT Polyp Colon COLONOSCOPY Routine 06/05/2022 10:57 AM CDT Polyp Colon INR, POCT, B Routine 06/05/2022 10:28 AM CDT PROTHROMBIN TIME (PT), P Routine 05/25/2022 PROTHROMBIN TIME (PT), P Routine 05/18/2022 PROTHROMBIN TIME (PT), P Routine 05/11/2022 PROTHROMBIN TIME (PT), P Routine 05/04/2022 PROTHROMBIN TIME (PT), P Routine 04/23/2022 PROTHROMBIN TIME (PT), P Routine 04/16/2022 PROTHROMBIN TIME (PT), P Routine 04/09/2022 GASTROENTEROLOGY IMAGE EXAM Routine 04/02/2022 11:05 AM CDT UPPER GI ENDOSCOPY Routine 04/02/2022 11:03 AM CDT Gastroesophageal Reflux Disease Without Esophagitis EGD (ESOPHAGEALGASTRODUODE NOSCOPY) Routine 04/02/2022 11:03 AM CDT Gastroesophageal Reflux Disease Without Esophagitis INR, POCT, B Routine 04/02/2022 10:54 AM CDT SARS CORONAVIRUS-2 RNA, V Routine 03/31/2022 9:53 AM CDT Contact With And (Suspected) Exposure To COVID-19 GROUP A STREP PCR, THROAT Routine 03/29/2022 10:18 AM CDT Sore Throat PROTHROMBIN TIME (PT), P Routine 03/27/2022 PROTHROMBIN TIME (PT), P Routine 03/26/2022 PROTHROMBIN TIME (PT), P Routine 03/23/2022 DX CHEST AP OR PA AND LATERAL 2 VIEWS RAD - Routine (most inpatients and all outpatients) 03/22/2022 12:29 PM CDT Cough Unspecified Type SARS-COV-2, FLU A/B, RNA, V Routine 03/22/2022 11:33 AM CDT Cough Unspecified Type ECG Routine 03/16/2022 9:55 AM CDT Atrial Fibrillation Paroxysmal (HCC) LIPID PANEL, S Routine 03/16/2022 9:41 AM CDT Hyperlipidemia CREATININE WITH EGFR, S/P Routine 03/16/2022 9:41 AM CDT Atrial Fibrillation Paroxysmal (HCC) POTASSIUM, S/P Routine 03/16/2022 9:41 AM CDT Atrial Fibrillation Paroxysmal (HCC) PROTHROMBIN TIME (PT), P Routine 03/16/2022 PROTHROMBIN TIME (PT), P Routine 03/09/2022 DX KNEE RIGHT STANDING RIGHT 3 VIEWS RAD - Routine (most inpatients and all outpatients) 03/02/2022 7:36 AM CDT Primary Osteoarthritis Knee Right ORTHOPEDIC SURGERY IMAGE EXAM Routine 03/02/2022 7:30 AM CDT PROTHROMBIN TIME (PT), P Routine 03/02/2022 PROTHROMBIN TIME (PT), P Routine 02/23/2022 PROTHROMBIN TIME (PT), P Routine 02/16/2022 PROTHROMBIN TIME (PT), P Routine 02/09/2022 PROTHROMBIN TIME (PT), P Routine 02/02/2022 PROTHROMBIN TIME (PT), P Routine 01/26/2022 PROTHROMBIN TIME (PT), P Routine 01/19/2022 PROTHROMBIN TIME (PT), P Routine 01/12/2022 INR REFLEX, POCT, B Routine 01/08/2022 1:26 PM C[facility] Atrial Fibrillation Paroxysmal (HCC) Assisted (Current) Anticoagulant Treatment Monitoring For Therapeutic Drug Therapy Thrombosis Deep Vein Personal History INR REFLEX, POCT, B Routine 01/08/2022 1:24 PM COOK STARCH PROTHROMBIN TIME (PT), P Routine 01/05/2022 PROTHROMBIN TIME (PT), P Routine 12/29/2021 INR, POCT, B Routine 12/16/2021 10:27 AM C[facility]ARCH INR, POCT, B Routine 12/02/2021 10:24 AM [facility] INR, POCT, B Routine 11/21/2021 2:32 PM C[facility]ARCH INR, POCT, B Routine 11/18/2021 1:53 PM C[facility]ARCH INR, POCT, B Routine 11/04/2021 7:44 AM C[facility]ARCH PROTHROMBIN TIME (PT), P Routine 09/08/2021 1:00 PM CDT BASIC METABOLIC PANEL, S/P Routine 09/08/2021 1:00 PM CDT Monitoring For Therapeutic Drug Therapy ECG Routine 09/08/2021 12:55 PM CDT Atrial Fibrillation Paroxysmal (HCC) PROTHROMBIN TIME (PT), P Routine 08/18/2021 11:07 AM CDT PROTHROMBIN TIME (PT), P Routine 08/04/2021 3:05 PM CDT Atrial Fibrillation Paroxysmal (HCC) PROTHROMBIN TIME (PT), P Routine 07/25/2021 12:14 PM CDT BI BREAST DIAGNOSTIC RIGHT WITH TOMOSYNTHESIS RAD - Routine (most inpatients and all outpatients) 07/14/2021 1:26 PM CDT Density Breast BI BREAST SCREENING BILATERAL WITH TOMOSYNTHESIS RAD - Routine (most inpatients and all outpatients) 07/08/2021 1:08 PM CDT Screening Mammogram Breast Cancer PROTHROMBIN TIME (PT), P Routine 06/27/2021 2:36 PM CDT SARS CORONAVIRUS-2 RNA, V Routine 06/25/2021 1:43 PM CDT Contact With And (Suspected) Exposure To COVID-19 DX CHEST AP OR PA AND LATERAL 2 VIEWS RAD - Routine (most inpatients and all outpatients) 06/25/2021 1:40 PM CDT Cough (Concern For Covid-19) PROTHROMBIN TIME (PT), P Routine 06/17/2021 10:43 AM CDT PROTHROMBIN TIME (PT), P Routine 06/11/2021 1:33 PM CDT INR, POCT, B Routine 04/17/2021 9:12 AM CDT LIPID PANEL, S Routine 04/17/2021 8:51 AM CDT Hyperlipidemia ECG Routine 02/24/2021 9:55 AM CDT Atrial Fibrillation Paroxysmal (HCC) CREATININE WITH EGFR, S/P Routine 02/24/2021 9:49 AM CDT Atrial Fibrillation Paroxysmal (HCC) POTASSIUM, S/P Routine 02/24/2021 9:49 AM CDT Atrial Fibrillation Paroxysmal (HCC) INR, POCT, B Routine 02/20/2021 8:58 AM CDT INR, POCT, B Routine 12/12/2020 8:33 AM [facility] MO ARTHCS ASP/INJ MJR JT WO US Routine 12/05/2020 8:30 AM [facility] Primary Osteoarthritis Knee Right ACID-BASE BALANCE, B Routine 11/27/2020 9:26 AM [facility] Dyspnea 6 MINUTE WALK Routine 11/27/2020 9:11 AM [facility] Dyspnea PULMONARY FUNCTION TESTS Routine 11/26/2020 1:11 PM [facility] Bronchitis Chronic (HCC) EXHALED NITRIC OXIDE Routine 11/26/2020 12:59 PM [facility] Cough INR, POCT, B Routine 11/26/2020 10:03 AM C[facility] INR, POCT, B Routine 10/29/2020 9:58 AM COOK STARCH FL ESOPHAGRAM DOUBLE CONTRAST RAD - Routine (most inpatients and all outpatients) 10/15/2020 2:41 PM C[facility]ARCH Gastroesophageal Reflux Disease Without Esophagitis INR, POCT, B Routine 10/15/2020 11:[address] CHEST WITHOUT IV CONTRAST RAD - Routine (most inpatients and all outpatients) 10/11/2020 12:15 PM [facility]ARCH Respiratory Infection Type Unknown Due To COVID-19 Cough Other Dyspnea PROTHROMBIN TIME (PT), P Routine 10/07/2020 10:41 AM C[facility] STARCH Monitoring For Therapeutic Drug Therapy Assisted Anticoagulant Treatment Atrial Fibrillation Paroxysmal (HCC) CREATININE WITH EGFR, S/P Routine 10/07/2020 10:41 AM C[facility] Atrial Fibrillation (HCC) POTASSIUM, S/P Routine 10/07/2020 10:41 AM C[facility]ARCH Atrial Fibrillation (HCC) ECG Routine 10/07/2020 10:13 AM [facility] Atrial Fibrillation (HCC) INR, POCT, B Routine 09/30/2020 9:16 AM C[facility]ARCH PROTHROMBIN TIME (PT), P STAT 09/23/2020 11:16 AM C[facility]ARCH Atrial Fibrillation Paroxysmal (HCC) 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 Anticoagulant Treatment Monitoring For Therapeutic Drug Therapy Thrombosis Deep Vein Acute Calf Right (HCC) PROTHROMBIN TIME (PT), P STAT 09/16/2020 11:28 AM [facility] Atrial Fibrillation Paroxysmal (HCC) 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 Anticoagulant Treatment Monitoring For Therapeutic Drug Therapy Thrombosis Deep Vein Acute Calf Right (HCC) CBC WITH DIFFERENTIAL, B Routine 09/12/2020 12:23 PM CDT Viral Syndrome Anemia Pneumonia Due To COVID-19 BASIC METABOLIC PANEL, S/P Routine 09/12/2020 12:23 PM CDT Viral Syndrome Anemia Pneumonia Due To COVID-19 PROTHROMBIN TIME (PT), P Routine 09/12/2020 12:23 PM CDT Atrial Fibrillation Paroxysmal (HCC) Assisted Anticoagulant Treatment Monitoring For Therapeutic Drug Therapy Thrombosis Deep Vein Acute Calf Right (HCC) BASIC METABOLIC PANEL, S/P Timed 09/09/2020 8:25 AM CDT CBC WITHOUT DIFFERENTIAL, B Timed 09/09/2020 8:25 AM CDT HAPTOGLOBIN, S Routine 09/09/2020 8:21 AM CDT SPSMA RESULT Routine 09/09/2020 12:22 AM CDT C-REACTIVE PROTEIN (CRP), S/P Routine 09/09/2020 12:22 AM CDT FERRITIN, S Routine 09/09/2020 12:22 AM CDT D-DIMER, P Routine 09/09/2020 12:22 AM CDT LACTATE DEHYDROGENASE (LD), S Routine 09/09/2020 12:22 AM CDT MAGNESIUM, S Routine 09/09/2020 12:22 AM CDT PROTHROMBIN TIME (PT), P Routine 09/09/2020 12:22 AM CDT SOLUBLE TRANSFERRIN RECEPTOR (STFR), S Routine 09/09/2020 12:14 AM CDT ECG Routine 09/08/2020 12:52 PM CDT BASIC METABOLIC PANEL, S/P Timed 09/08/2020 8:05 AM CDT CBC WITHOUT DIFFERENTIAL, B Timed 09/08/2020 8:05 AM CDT RETICULOCYTES, B Routine 09/08/2020 8:02 AM CDT IRON AND TOT IRON-BINDING CAPACITY, S/P Routine 09/08/2020 8:02 AM CDT MAGNESIUM, S Routine 09/08/2020 8:02 AM CDT PROTHROMBIN TIME (PT), P STAT 09/08/2020 3:31 AM CDT D-DIMER, P Routine 09/08/2020 3:31 AM CDT FERRITIN, S Routine 09/08/2020 3:31 AM CDT HEPATIC FUNCTION PANEL, S Routine 09/08/2020 3:31 AM CDT C-REACTIVE PROTEIN (CRP), S/P Routine 09/08/2020 3:31 AM CDT SARS-COV-2 TOTAL ANTIBODY, SERUM Routine 09/08/2020 3:31 AM CDT SARS CORONAVIRUS 2, MOLECULAR DETECTION, PCR (TEST CAR DRIVER) Routine 09/08/2020 3:14 AM CDT DX CHEST PORTABLE 1 VIEW RAD - Routine (most inpatients and all outpatients) 09/08/2020 1:34 AM CDT VBG & LYTES CG8+, POCT, B Routine 09/08/2020 1:11 AM CDT BLOOD GAS, POCT, B STAT 09/08/2020 1:09 AM CDT BASIC METABOLIC PANEL, S/P STAT 09/08/2020 1:09 AM CDT CBC WITH DIFFERENTIAL, B STAT 09/08/2020 1:09 AM CDT DX CHEST PORTABLE 1 VIEW RAD - Semiurgent (Fast; most ED patients; some inpatients) 08/30/2020 11:49 AM CDT PATIENT STATUS STAT 08/30/2020 10:24 AM CDT VENOUS BLOOD GAS W/O COOX STAT 08/30/2020 10:24 AM CDT BACTERIA / RACHNA CULTURE, BLOOD STAT 08/30/2020 10:24 AM CDT LACTATE, POCT, B STAT 08/30/2020 10:20 AM CDT PROTHROMBIN TIME (PT), P STAT 08/30/2020 10:18 AM CDT NT-PRO B-TYPE NATRIURETIC PEPTIDE (BNP), S STAT 08/30/2020 10:18 AM CDT LIPASE, S/P STAT 08/30/2020 10:18 AM CDT HEPATIC FUNCTION PANEL, S STAT 08/30/2020 10:18 AM CDT CBC WITH DIFFERENTIAL, B STAT 08/30/2020 10:18 AM CDT BASIC METABOLIC PANEL, S/P STAT 08/30/2020 10:18 AM CDT BACTERIA / RACHNA CULTURE, BLOOD STAT 08/30/2020 10:18 AM CDT LACTATE, POCT, B Routine 08/30/2020 10:17 AM CDT SARS CORONAVIRUS-2 RNA, V STAT 08/30/2020 10:14 AM CDT INR, POCT, B Routine 08/29/2020 8:59 AM CDT INR, POCT, B Routine 08/23/2020 2:15 PM CDT SARS CORONAVIRUS-2 RNA, V Routine 08/20/2020 4:03 PM CDT Infection Upper Respiratory INR, POCT, B Routine 08/20/2020 3:03 PM CDT INR, POCT, B Routine 08/13/2020 9:54 AM CDT INR, POCT, B Routine 07/30/2020 1:19 PM CDT INR, POCT, B Routine 07/25/2020 10:05 AM CDT COLOGUARD Routine 07/04/2020 3:30 PM CDT Screening Cancer Colon BI BREAST SCREENING BILATERAL WITH TOMOSYNTHESIS RAD - Routine (most inpatients and all outpatients) 07/03/2020 4:14 PM CDT Screening Mammogram Breast Cancer INR, POCT, B Routine 06/26/2020 9:17 AM CDT INR, POCT, B Routine 05/01/2020 9:17 AM CDT CREATININE WITH EGFR, S/P Routine 04/05/2020 10:51 AM CDT Atrial Fibrillation (HCC) POTASSIUM, S/P Routine 04/05/2020 10:51 AM CDT Atrial Fibrillation (HCC) ECG Routine 04/05/2020 10:50 AM CDT Atrial Fibrillation (HCC) INR, POCT, B Routine 03/05/2020 2:53 PM CDT INR, POCT, B Routine 01/11/2020 9:35 AM [facility] INR, POCT, B Routine 12/21/2019 9:03 AM [facility] INR, POCT, B Routine 11/30/2019 10:20 AM [facility] INR, POCT, B Routine 11/23/2019 10:30 AM [facility] MO URINALYSIS AUTO W MICRO Routine 11/20/2019 10:58 AM [facility] URINALYSIS WITH MICROSCOPIC IF INDICATED, U Routine 11/20/2019 10:58 AM [facility] Dysuria BACTERIAL CULTURE, AEROBIC + SUSC, URINE Routine 11/20/2019 10:58 AM [facility] Dysuria INR, POCT, B Routine 11/09/2019 3:29 PM [facility] INR, POCT, B Routine 10/19/2019 9:36 AM [facility] INR, POCT, B Routine 09/07/2019 9:34 AM CDT INR, POCT, B Routine 08/03/2019 10:01 AM CDT LIPID PANEL, S Routine 07/12/2019 11:00 AM CDT Hyperlipidemia PROTHROMBIN TIME (PT), P Routine 07/12/2019 11:00 AM CDT Primary Osteoarthritis Knee Right CREATININE WITH EGFR, S/P Routine 07/12/2019 11:00 AM CDT Fibrillation Atrial Paroxysmal (HCC) POTASSIUM, S/P Routine 07/12/2019 11:00 AM CDT Fibrillation Atrial Paroxysmal (HCC) ECG Routine 07/12/2019 10:30 AM CDT Fibrillation Atrial Paroxysmal (HCC) TYPE AND SCREEN Routine 07/03/2019 10:19 AM CDT Primary Osteoarthritis Knee Right CBC WITHOUT DIFFERENTIAL, B Routine 07/03/2019 10:19 AM CDT Primary Osteoarthritis Knee Right CREATININE WITH EGFR, S/P Routine 07/03/2019 10:19 AM CDT Primary Osteoarthritis Knee Right STAPHYLOCOCCUS AUREUS, PCR Routine 07/03/2019 10:16 AM CDT Primary Osteoarthritis Knee Right INR, POCT, B Routine 06/15/2019 10:02 AM CDT INR, POCT, B Routine 05/25/2019 9:41 AM CDT BI ULTRASOUND BREAST FOCUSED BILATERAL RAD - Routine (most inpatients and all outpatients) 05/16/2019 11:04 AM CDT Pain Breast BI BREAST DIAGNOSTIC BILATERAL WITH TOMOSYNTHESIS RAD - Routine (most inpatients and all outpatients) 05/16/2019 10:08 AM CDT Pain Breast INR, POCT, B Routine 05/11/2019 9:12 AM CDT INR, POCT, B Routine 04/27/2019 9:15 AM CDT (TTE) 2D ECHO DOPPLER COLOR Routine 03/28/2019 2:49 PM CDT Pain Chest NM CARDIAC PERFUSION REST AND STRESS SPECT RAD - Routine (most inpatients and all outpatients) 03/28/2019 1:39 PM CDT Other Heart Disorders In Diseases Classified Elsewhere DX CHEST AP OR PA AND LATERAL 2 VIEWS RAD - Routine (most inpatients and all outpatients) 03/28/2019 11:09 AM CDT Pain Chest CREATININE WITH EGFR, S/P Routine 03/15/2019 12:00 PM CDT Fibrillation Atrial (HCC) POTASSIUM, S/P Routine 03/15/2019 12:00 PM CDT Fibrillation Atrial (HCC) SODIUM, S/P Routine 03/15/2019 12:00 PM CDT Fibrillation Atrial (HCC) HOLTER MONITOR - IN CLINIC RN TELEPHONE TRIAGE Routine 03/15/2019 11:31 AM CDT Pain Chest INR, POCT, B Routine 03/09/2019 9:40 AM CDT INR, POCT, B Routine 02/23/2019 3:48 PM CDT ECG Routine 02/20/2019 11:09 AM CDT Fibrillation Atrial (HCC) INR, POCT, B Routine 02/16/2019 2:09 PM CDT INR, POCT, B Routine 01/05/2019 1:01 PM [facility] MO ARTHCS ASP/INJ MJR JT W US Routine 12/21/2018 11:30 AM [facility] Rotator Cuff Disorder Right INR, POCT, B Routine 12/21/2018 11:15 AM [facility] INTERNAL MEDICINE IMAGE EXAM Routine 12/21/2018 11:10 AM [facility] DX SHOULDER RIGHT 2+ VIEWS RAD - Routine (most inpatients and all outpatients) 12/02/2018 11:53 AM [facility] Rotator Cuff Disorder Right DX KNEE RIGHT WITH FLEXION AND PATELLA 4 VIEWS RAD - Routine (most inpatients and all outpatients) 12/02/2018 11:53 AM [facility] Primary Osteoarthritis Knee Right INR, POCT, B Routine 12/01/2018 9:25 AM [facility] INR, POCT, B Routine 11/17/2018 11:09 AM [facility] INR, POCT, B Routine 11/03/2018 2:12 PM [facility] ECG Routine 10/31/2018 10:24 AM [facility] Fibrillation Atrial (HCC) CREATININE WITH EGFR, S/P Routine 10/31/2018 10:05 AM [facility] Fibrillation Atrial (HCC) SODIUM, S/P Routine 10/31/2018 10:05 AM [facility] Fibrillation Atrial (HCC) POTASSIUM, S/P Routine 10/31/2018 10:05 AM [facility] Fibrillation Atrial (HCC) INR, POCT, B Routine 10/27/2018 9:29 AM [facility] INR, POCT, B Routine 10/20/2018 11:06 AM [facility] PROTHROMBIN TIME (PT), P Routine 10/07/2018 11:38 AM [facility] INR, POCT, B Routine 09/28/2018 11:13 AM [facility] INR, POCT, B Routine 09/22/2018 1:13 PM [facility] PROTHROMBIN TIME (PT), P Routine 09/19/2018 9:55 AM [facility] Fibrillation Atrial (HCC) Monitoring For Therapeutic Drug Therapy 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 Anticoagulant Treatment Anticoagulant Therapy Thrombosis Deep Vein Acute Calf Right (HCC) HOME SLEEP APNEA TEST (HSAT) Routine 09/16/2018 7:48 AM CDT Apnea Sleep Obstructive ECG Routine 08/03/2018 3:06 PM CDT Fibrillation Atrial (HCC) PROTHROMBIN TIME (PT), P Routine 08/01/2018 9:00 AM CDT Anticoagulant Therapy Monitoring For Therapeutic Drug Therapy Fibrillation Atrial (HCC) INR, POCT, B Routine 07/28/2018 10:21 AM CDT ECG Routine 07/27/2018 8:06 PM CDT ECG Routine 07/27/2018 8:59 AM CDT MAGNESIUM, S Routine 07/27/2018 6:06 AM CDT CBC WITH DIFFERENTIAL, B Routine 07/27/2018 6:06 AM CDT BASIC METABOLIC PANEL, S/P Routine 07/27/2018 6:06 AM CDT PROTHROMBIN TIME (PT), P Routine 07/27/2018 6:06 AM CDT ECG Routine 07/26/2018 8:44 PM CDT ECG Routine 07/26/2018 10:46 AM CDT ADULT OXYGEN THERAPY Routine 07/26/2018 8:01 AM CDT MAGNESIUM, S Routine 07/26/2018 5:34 AM CDT CBC WITH DIFFERENTIAL, B Routine 07/26/2018 5:34 AM CDT BASIC METABOLIC PANEL, S/P Routine 07/26/2018 5:34 AM CDT PROTHROMBIN TIME (PT), P Routine 07/26/2018 5:34 AM CDT ECG STAT 07/26/2018 2:43 AM CDT ECG Routine 07/25/2018 10:08 PM CDT ADULT OXYGEN THERAPY Routine 07/25/2018 8:01 PM CDT ECG Routine 07/25/2018 5:19 PM CDT PROTHROMBIN TIME (PT), P Timed 07/25/2018 4:58 PM CDT CBC WITH DIFFERENTIAL, B Timed 07/25/2018 4:58 PM CDT MAGNESIUM, S Timed 07/25/2018 4:58 PM CDT COMPREHENSIVE METABOLIC PANEL, S/P Timed 07/25/2018 4:58 PM CDT ADULT OXYGEN THERAPY Routine 07/25/2018 4:39 PM CDT ADULT OXYGEN THERAPY Routine 07/25/2018 4:39 PM CDT ECG Routine 07/25/2018 12:28 PM CDT Fibrillation Atrial (HCC) ECG STAT 07/13/2018 4:19 PM CDT LDA [employer]E [employer] Routine 07/13/2018 4:12 PM CDT (THU) 2D WITH COLOR AND LIMITED DOPPLER Routine 07/13/2018 4:08 PM CDT CARDIOVERSION EXTERNAL Routine 8 4:08 PM CDT ADULT OXYGEN THERAPY Routine 07/13/2018 1:06 PM CDT ADULT OXYGEN THERAPY Routine 07/13/2018 1:06 PM CDT TROPONIN T, 2H/6H, 5TH GEN, P Timed 07/13/2018 10:19 AM CDT DX CHEST AP OR PA AND LATERAL 2 VIEWS RAD - Semiurgent (Fast; most ED patients; some inpatients) 07/13/2018 8:51 AM CDT NT-PRO B-TYPE NATRIURETIC PEPTIDE (BNP), S STAT 07/13/2018 8:20 AM CDT TROPONIN T, BASELINE, 5TH GEN, P STAT 07/13/2018 8:20 AM CDT THYROID-STIMULATING HORMONE-SENSITIVE (S-TSH) STAT 07/13/2018 8:20 AM CDT BASIC METABOLIC PANEL, S/P STAT 07/13/2018 8:20 AM CDT PROTHROMBIN TIME (PT), P STAT 07/13/2018 8:20 AM CDT CBC WITH DIFFERENTIAL, B STAT 07/13/2018 8:20 AM CDT ECG STAT 07/13/2018 7:56 AM CDT INR, POCT, B Routine 07/07/2018 10:20 AM CDT MO ARTHCS ASP/INJ MJR JT WO US Routine 06/27/2018 11:00 AM CDT Primary Osteoarthritis Knee Right DX KNEE RIGHT 4+ VIEWS RAD - Routine (most inpatients and all outpatients) 06/27/2018 10:52 AM CDT Primary Osteoarthritis Knee Right INR, POCT, B Routine 05/26/2018 9:27 AM CDT BI BREAST SCREENING BILATERAL WITH TOMOSYNTHESIS Routine 05/25/2018 11:14 AM CDT Screening Mammogram Breast Cancer INR, POCT, B Routine 05/05/2018 9:07 AM CDT ECG Routine 04/14/2018 8:23 AM CDT Fibrillation Atrial (HCC) INR, POCT, B Routine 03/24/2018 11:59 AM CDT PROTHROMBIN TIME (PT), P Routine 02/03/2018 PROTHROMBIN TIME (PT), P Routine 01/19/2018 PROTHROMBIN TIME (PT), P Routine 01/10/2018 9:04 AM [facility] Anticoagulant Therapy Monitoring For Therapeutic Drug Therapy Fibrillation Atrial (HCC) INR, POCT, B Routine 01/06/2018 9:10 AM [facility] DX CHEST AP OR PA AND LATERAL 2 VIEWS RAD - Routine (most inpatients and all outpatients) 12/23/2017 10:54 AM [facility] Cough Fatigue THYROID-STIMULATING HORMONE-SENSITIVE (S-TSH) Routine 12/23/2017 9:33 AM [facility] Cough Fatigue C-REACTIVE PROTEIN, HIGH SENSITIVITY, S/P Routine 12/23/2017 9:33 AM [facility] Cough Fatigue FERRITIN, S Routine 12/23/2017 9:33 AM [facility] Cough Fatigue COMPREHENSIVE METABOLIC PANEL, S/P Routine 12/23/2017 9:33 AM [facility] Cough Fatigue CBC WITH DIFFERENTIAL, B Routine 12/23/2017 9:33 AM [facility] Cough Fatigue INR, POCT, B Routine 11/25/2017 8:57 AM [facility] PROTHROMBIN TIME (PT), P Routine 10/28/2017 9:12 AM [facility] Anticoagulant Therapy Monitoring For Therapeutic Drug Therapy Fibrillation Atrial (HCC) PROTHROMBIN TIME (PT), P Routine 09/30/2017 11:00 AM [facility] Monitoring For Therapeutic Drug Therapy INR, POCT, B Routine 09/16/2017 11:26 AM CDT INR, POCT, B Routine 09/02/2017 9:36 AM CDT INR, POCT, B Routine 08/24/2017 10:42 AM CDT INR, POCT, B Routine 07/08/2017 8:10 AM CDT LIPID PANEL, S Routine 05/27/2017 8:18 AM CDT INR, POCT, B Routine 05/25/2017 8:57 AM CDT BI BREAST SCREENING BILATERAL WITH TOMOSYNTHESIS Routine 05/07/2017 2:03 PM CDT INR, POCT, B Routine 04/13/2017 8:56 AM CDT INR, POCT, B Routine 03/16/2017 9:13 AM CDT ONEOME RIGHTMED PGX TEST Routine 03/12/2017 4:07 PM CDT RIGHTMED Routine 03/11/2017 10:25 AM CDT PROTIME/INR POC-LAB Routine 01/07/2017 8:15 AM [facility] DX KNEE UNILATERAL 3 VIEWS Routine 01/06/2017 11:[address] MAXILLOFACIAL WITHOUT IV CONTRAST Routine 11/29/2016 2:57 PM [facility] CBC WITH DIFFERENTIAL, B Routine 11/29/2016 1:19 PM [facility] PROTHROMBIN TIME (PT), P Routine 11/29/2016 1:19 PM [facility] C-REACTIVE PROTEIN (CRP), S/P Routine 11/29/2016 1:19 PM [facility] BASIC METABOLIC PANEL, S/P Routine 11/29/2016 1:19 PM [facility] CARDIAC BIOMARKER PANEL, S Routine 11/29/2016 1:19 PM [facility] SEDIMENTATION RATE, B Routine 11/29/2016 1:19 PM [facility] ECG Routine 11/29/2016 12:25 PM [facility] PROTIME (PT/INR), POCT, B Routine 10/30/2016 10:05 AM [facility] PROTIME (PT/INR), POCT, B Routine 10/16/2016 9:11 AM [facility] FERRITIN, S Routine 10/13/2016 1:23 PM [facility] PROTIME/INR POC-LAB Routine 10/01/2016 9:41 AM [facility] PROTIME/INR POC-LAB Routine 09/15/2016 11:13 AM CDT ECHOCARDIOLOGY IMAGE EXAM Routine 09/02/2016 3:48 PM CDT ECHO TRANSTHORACIC (TTE) Routine 09/02/2016 3:32 PM CDT ECG HEART RHYTHM MONITOR (HOLTER) Routine 09/02/2016 9:58 AM CDT ECG Routine 09/02/2016 9:39 AM CDT DX CHEST AP OR PA AND LATERAL 2 VIEWS Routine 09/02/2016 9:23 AM CDT POTASSIUM, S/P Routine 09/02/2016 9:03 AM CDT SODIUM, S/P Routine 09/02/2016 9:03 AM CDT THYROID FUNCTION CASCADE, S Routine 09/02/2016 9:03 AM CDT CREATININE WITH EGFR, S/P Routine 09/02/2016 9:03 AM CDT CBC WITHOUT DIFFERENTIAL, B Routine 09/02/2016 9:03 AM CDT ASPARTATE AMINOTRANSFERASE (AST), S/P Routine 09/02/2016 9:03 AM CDT PROTIME (PT/INR), POCT, B Routine 08/18/2016 2:52 PM CDT PROTIME/INR POC-LAB Routine 07/21/2016 9:48 AM CDT PROTIME/INR POC-LAB Routine 07/07/2016 9:06 AM CDT PROTIME/INR POC-LAB Routine 06/23/2016 9:13 AM CDT PROTIME/INR POC-LAB Routine 05/26/2016 8:15 AM CDT PROTIME/INR POC-LAB Routine 05/12/2016 10:[address] ABDOMEN PELVIS WITHOUT IV CONTRAST Routine 05/10/2016 10:02 AM CDT URINALYSIS, MIDSTREAM, WITH CULTURE IF INDICATED Routine 05/10/2016 9:33 AM CDT PROTIME (PT/INR), POCT, B Routine 05/08/2016 9:56 AM CDT PROTIME (PT/INR), POCT, B Routine 05/05/2016 3:06 PM CDT POTASSIUM, S/P Routine 05/05/2016 9:58 AM CDT THYROID FUNCTION CASCADE, S Routine 05/05/2016 9:58 AM CDT LIPID PANEL, S Routine 05/05/2016 9:58 AM CDT CREATININE WITH EGFR, S/P Routine 05/05/2016 9:58 AM CDT CALCIUM, TOT, S/P Routine 05/05/2016 9:58 AM CDT ALANINE AMINOTRANSFERASE (ALT), S/P Routine 05/05/2016 9:58 AM CDT GLUCOSE, RANDOM, S/P Routine 05/05/2016 9:58 AM CDT SODIUM, S/P Routine 05/05/2016 9:58 AM CDT HEMOGLOBIN A1C, B Routine 05/05/2016 9:57 AM CDT CBC WITH DIFFERENTIAL, B Routine 05/05/2016 9:57 AM CDT DX CHEST AP OR PA AND LATERAL 2 VIEWS Routine 05/05/2016 9:57 AM CDT ECG Routine 05/05/2016 9:32 AM CDT PROTIME/INR POC-LAB Routine 04/28/2016 9:01 AM CDT PROTIME/INR POC-LAB Routine 03/24/2016 9:16 AM CDT PROTIME/INR POC-LAB Routine 02/04/2016 8:44 AM CDT PROTIME (PT/INR), POCT, B Routine 12/13/2015 8:08 AM [facility] PROTIME/INR POC-LAB Routine 12/10/2015 8:18 AM [facility] LIPID PANEL, S Routine 12/09/2015 8:15 AM [facility] THYROID FUNCTION CASCADE, S Routine 12/09/2015 8:15 AM [facility] PROTIME/INR POC-LAB Routine 11/26/2015 11:00 AM [facility] PROTIME (PT/INR), POCT, B Routine 10/11/2015 8:13 AM [facility] PROTIME/INR POC-LAB Routine 09/17/2015 9:50 AM [facility] PROTIME/INR POC-LAB Routine 08/20/2015 10:25 AM CDT PROTIME/INR POC-LAB Routine 08/06/2015 9:03 AM CDT PROTIME/INR POC-LAB Routine 07/23/2015 9:09 AM CDT PROTIME/INR POC-LAB Routine 07/09/2015 9:36 AM CDT BI ULTRASOUND EXAM Routine 05/16/2015 11:24 AM CDT BI BREAST DIAGNOSTIC LEFT Routine 05/16/2015 10:22 AM CDT BI BREAST SCREENING BILATERAL Routine 05/15/2015 11:07 AM CDT POTASSIUM, S/P Routine 05/15/2015 9:07 AM CDT GLUCOSE, FASTING, S/P Routine 05/15/2015 9:07 AM CDT SODIUM, S/P Routine 05/15/2015 9:07 AM CDT HEMOGLOBIN A1C, B Routine 05/15/2015 9:07 AM CDT LIPID PANEL, S Routine 05/15/2015 9:07 AM CDT THYROID-STIMULATING HORMONE-SENSITIVE (S-TSH) Routine 05/15/2015 9:07 AM CDT CREATININE WITH EGFR, S/P Routine 05/15/2015 9:07 AM CDT DX FOOT UNILATERAL 3+ VIEWS Routine 05/14/2015 12:44 PM CDT PROTIME (PT/INR), POCT, B Routine 05/07/2015 10:44 AM CDT PROTIME/INR POC-LAB Routine 04/11/2015 9:28 AM CDT PROTIME/INR POC-LAB Routine 04/02/2015 10:50 AM CDT ECHOCARDIOLOGY IMAGE EXAM Routine 02/26/2015 2:00 PM CDT ECHO TRANSTHORACIC (TTE) Routine 02/26/2015 1:51 PM CDT ECG HEART RHYTHM MONITOR (HOLTER) Routine 02/26/2015 11:15 AM CDT ECG Routine 02/26/2015 11:[address] HEART STRUCTURE MORPHOLOGY WITHOUT AND WITH IV CONTRAST Routine 02/26/2015 10:01 AM CDT PROTIME (PT/INR), POCT, B Routine 12/07/2014 3:29 PM [facility] PROTIME/INR POC-LAB Routine 12/04/2014 9:49 AM [facility] PROTHROMBIN TIME (PT), P Routine 12/03/2014 9:10 AM [facility] PROTHROMBIN TIME (PT), P Routine 12/02/2014 8:58 AM [facility] PROTHROMBIN TIME (PT), P Routine 12/01/2014 9:42 AM [facility] DX CHEST AP OR PA AND LATERAL 2 VIEWS Routine 12/01/2014 7:24 AM [facility] CBC WITHOUT DIFFERENTIAL, B Routine 12/01/2014 5:16 AM [facility] ELECTROLYTE (CHEM 4) PANEL, S/P Routine 12/01/2014 5:16 AM [facility] CBC WITHOUT DIFFERENTIAL, B Routine 12/01/2014 5:16 AM [facility] ECG Routine 12/01/2014 5:15 AM [facility] ACT, POCT, B Routine 11/30/2014 4:19 PM [facility] ACT, POCT, B Routine 11/30/2014 2:45 PM [facility] PROTHROMBIN TIME (PT), P Routine 11/30/2014 1:47 PM [facility] ACT, POCT, B Routine 11/30/2014 1:04 PM [facility] ACT, POCT, B Routine 11/30/2014 12:30 PM [facility] ACT, POCT, B Routine 11/30/2014 12:01 PM [facility] ACT, POCT, B Routine 11/30/2014 11:37 AM [facility] ACT, POCT, B Routine 11/30/2014 11:17 AM [facility] ACT, POCT, B Routine 11/30/2014 10:57 AM [facility] ACT, POCT, B Routine 11/30/2014 10:23 AM [facility] ACT, POCT, B Routine 11/30/2014 9:57 AM [facility] HEART RHYTHM PROCEDURE - ABLATION Routine 11/30/2014 7:59 AM [facility] PROTHROMBIN TIME (PT), P Routine 11/30/2014 6:58 AM [facility] ECHOCARDIOLOGY IMAGE EXAM Routine 11/29/2014 12:25 PM [facility] ECHO TRANSESOPHAGEAL (THU) Routine 11/29/2014 12:20 PM [facility] ECG Routine 11/29/2014 9:36 AM [facility] ANTIBODY SCREEN, B Routine 11/29/2014 8:25 AM [facility] ABORH, RBC Routine 11/29/2014 8:25 AM [facility] CBC WITH DIFFERENTIAL, B Routine 11/29/2014 7:47 AM [facility] THYROID FUNCTION CASCADE, S Routine 11/29/2014 7:47 AM [facility] PROTHROMBIN TIME (PT), P Routine 11/29/2014 7:47 AM [facility] POTASSIUM, S/P Routine 11/29/2014 7:47 AM [facility] ALANINE AMINOTRANSFERASE (ALT), S/P Routine 11/29/2014 7:47 AM [facility] CREATININE WITH EGFR, S/P Routine 11/29/2014 7:47 AM [facility] SODIUM, S/P Routine 11/29/2014 7:47 AM [facility] THYROPEROXIDASE (TPO) ABS, S Routine 11/29/2014 7:47 AM [facility] T4 (THYROXINE), FREE, S Routine 11/29/2014 7:47 AM [facility] PROTIME/INR POC-LAB Routine 11/27/2014 10:27 AM [facility] PROTIME (PT/INR), POCT, B Routine 11/16/2014 4:13 PM [facility] ECG Routine 11/13/2014 1:02 PM [facility] PROTIME/INR POC-LAB Routine 11/13/2014 11:11 AM [facility] ECG HEART RHYTHM MONITOR (HOLTER) Routine 11/05/2014 8:23 AM [facility] ECG HEART RHYTHM MONITOR (HOLTER) Routine 10/23/2014 8:04 PM [facility] US LOWER EXTREMITY VEINS Routine 10/23/2014 5:51 PM [facility] BASIC METABOLIC PANEL, S/P Routine 10/23/2014 4:11 PM [facility] ACTIVATED PARTIAL THROMBOPLASTIN TIME (APTT), P Routine 10/23/2014 4:11 PM [facility] CBC WITHOUT DIFFERENTIAL, B Routine 10/23/2014 4:11 PM [facility] PROTHROMBIN TIME (PT), P Routine 10/23/2014 4:11 PM [facility] ECG Routine 10/23/2014 3:51 PM [facility] PROTIME/INR POC-LAB Routine 10/17/2014 9:25 AM [facility] THYROID FUNCTION CASCADE, S Routine 10/17/2014 9:25 AM [facility] RAPID STREP A SCREEN Routine 10/17/2014 8:52 AM [facility] DX CHEST AP OR PA AND LATERAL 2 VIEWS Routine 10/08/2014 11:42 AM [facility] AUTOMATED DIFFERENTIAL, B Routine 10/08/2014 11:21 AM [facility] CBC WITH DIFFERENTIAL, B Routine 10/08/2014 11:21 AM [facility] PROTIME/INR POC-LAB Routine 10/02/2014 9:46 AM [facility] ECG Routine 09/27/2014 9:10 AM [facility] PROTIME/INR POC-LAB Routine 09/18/2014 10:42 AM [facility] PROTIME (PT/INR), POCT, B Routine 08/20/2014 4:26 PM CDT DX CHEST AP OR PA AND LATERAL 2 VIEWS Routine 08/09/2014 11:14 AM CDT PROTIME (PT/INR), POCT, B Routine 08/09/2014 10:57 AM CDT PROTIME/INR POC-LAB Routine 08/06/2014 9:01 AM CDT DX CHEST AP OR PA AND LATERAL 2 VIEWS Routine 08/02/2014 12:40 PM CDT PROTIME (PT/INR), POCT, B Routine 08/02/2014 12:30 PM CDT AUTOMATED DIFFERENTIAL, B Routine 08/02/2014 11:45 AM CDT CBC WITH DIFFERENTIAL, B Routine 08/02/2014 11:45 AM CDT BASIC METABOLIC PANEL, S/P Routine 08/02/2014 11:45 AM CDT PROTIME (PT/INR), POCT, B Routine 06/26/2014 1:50 PM CDT DX FOOT ANKLE UNILATERAL 3 VIEWS Routine 05/30/2014 7:44 AM CDT BI BREAST SCREENING BILATERAL Routine 05/14/2014 9:00 AM CDT OUTSIDE DX SKELETAL Routine 04/13/2014 11:22 AM CDT DX FOOT LEFT 3+ VIEWS Routine 04/13/2014 11:22 AM CDT HXGENERAL PATHOLOGY REPORT Routine 04/05/2014 1:46 PM CDT GASTROENTEROLOGY IMAGE EXAM Routine 04/05/2014 12:00 PM CDT COLONOSCOPY Routine 04/05/2014 12:00 PM CDT GASTROENTEROLOGY IMAGE EXAM Routine 04/05/2014 11:59 AM CDT INR, POCT, B Routine 04/05/2014 10:40 AM CDT PROTIME/INR POC-LAB Routine 03/28/2014 9:[address] CHEST WITHOUT IV CONTRAST Routine 02/28/2014 2:57 PM CDT ECHOCARDIOLOGY IMAGE EXAM Routine 02/27/2014 2:57 PM CDT ECHO TRANSTHORACIC (TTE) Routine 02/27/2014 2:49 PM CDT ECG HEART RHYTHM MONITOR (HOLTER) Routine 02/27/2014 9:22 AM CDT ECG Routine 02/27/2014 8:51 AM CDT FERRITIN, S Routine 01/22/2014 10:37 AM CDT BILIRUBIN DIRECT, S/P Routine 01/22/2014 10:37 AM CDT CREATININE WITH EGFR, S/P Routine 01/22/2014 10:37 AM CDT ASPARTATE AMINOTRANSFERASE (AST), S/P Routine 01/22/2014 10:37 AM CDT SODIUM, S/P Routine 01/22/2014 10:37 AM CDT 25-HYDROXYVITAMIN D2 AND D3, S Routine 01/22/2014 10:37 AM CDT POTASSIUM, S/P Routine 01/22/2014 10:37 AM CDT CALCIUM, TOT, S/P Routine 01/22/2014 10:37 AM CDT ALBUMIN, S/P Routine 01/22/2014 10:37 AM CDT BILIRUBIN, TOT, S/P Routine 01/22/2014 10:37 AM CDT CBC WITH DIFFERENTIAL, B Routine 01/22/2014 10:37 AM CDT PROTHROMBIN TIME (PT), P Routine 01/22/2014 10:37 AM CDT GLUCOSE, FASTING, S/P Routine 01/22/2014 10:37 AM CDT ALANINE AMINOTRANSFERASE (ALT), S/P Routine 01/22/2014 10:37 AM CDT PERNICIOUS ANEMIA CASCADE, S Routine 01/22/2014 10:37 AM CDT ALKALINE PHOSPHATASE, S/P Routine 01/22/2014 10:37 AM CDT US ABDOMEN COMPLETE Routine 01/16/2014 11:00 AM [facility] DX CHEST AP OR PA AND LATERAL 2 VIEWS Routine 01/16/2014 9:08 AM [facility] DX CHEST PORTABLE 1 VIEW Routine 12/26/2013 5:48 AM MST ECG Routine 12/26/2013 5:36 AM MST D-DIMER, P Routine 12/26/2013 5:34 AM MST TROPONIN T, 5TH GEN, P Routine 4 5:34 AM MST PROTHROMBIN TIME (PT), P Routine 12/26/2013 5:34 AM MST ECG 12-LEAD WITH RHYTHM STRIP Routine 12/26/2013 12:00 AM MST ECG Routine 12/25/2013 10:49 AM MST URINALYSIS, MIDSTREAM, WITH CULTURE IF INDICATED Routine 12/25/2013 10:30 AM MST NUCLEATED RBC Routine 12/25/2013 10:18 AM MST PROTEIN, TOTAL, S/P Routine 12/25/2013 10:18 AM MST ALANINE AMINOTRANSFERASE (ALT), S/P Routine 12/25/2013 10:18 AM MST ASPARTATE AMINOTRANSFERASE (AST), S/P Routine 12/25/2013 10:18 AM MST ALKALINE PHOSPHATASE, S/P Routine 12/25/2013 10:18 AM MST BILIRUBIN, TOT, S/P Routine 12/25/2013 10:18 AM MST ALBUMIN, S/P Routine 12/25/2013 10:18 AM MST LIPASE, S/P Routine 12/25/2013 10:18 AM MST GLUCOSE, RANDOM, S/P Routine 12/25/2013 10:18 AM MST CREATININE WITH EGFR, S/P Routine 12/25/2013 10:18 AM MST BUN (BLOOD UREA NITROGEN), S/P Routine 12/25/2013 10:18 AM MST ELECTROLYTE PANEL, S Routine 12/25/2013 10:18 AM MST CBC WITH DIFFERENTIAL, B Routine 12/25/2013 10:18 AM [facility]ST PROTIME/INR POC-LAB Routine 12/12/2013 10:13 AM [facility] PROTIME/INR POC-LAB Routine 11/28/2013 8:55 AM [facility] DX CHEST AP OR PA AND LATERAL 2 VIEWS Routine 11/25/2013 7:28 AM [facility] ECG Routine 11/25/2013 5:35 AM [facility] ELECTROLYTE (CHEM 4) PANEL, S/P Routine 11/25/2013 4:37 AM [facility] PROTHROMBIN TIME (PT), P Routine 11/25/2013 4:37 AM [facility] CBC WITHOUT DIFFERENTIAL, B Routine 11/25/2013 4:37 AM [facility] ACT, POCT, B Routine 11/24/2013 2:01 PM [facility] ACT, POCT, B Routine 11/24/2013 1:44 PM [facility] ACT, POCT, B Routine 11/24/2013 1:11 PM [facility] ACT, POCT, B Routine 11/24/2013 12:34 PM [facility] ACT, POCT, B Routine 11/24/2013 11:57 AM [facility] ACT, POCT, B Routine 11/24/2013 11:23 AM [facility] ACT, POCT, B Routine 11/24/2013 10:59 AM [facility] ACT, POCT, B Routine 11/24/2013 10:27 AM [facility] ACT, POCT, B Routine 11/24/2013 9:57 AM [facility] CARDIOLOGY IMAGE EXAM Routine 11/24/2013 9:02 AM [facility] HEART RHYTHM PROCEDURE - ABLATION Routine 11/24/2013 7:47 AM [facility] PROTHROMBIN TIME (PT), P Routine 11/24/2013 6:45 AM [facility] ECHOCARDIOLOGY IMAGE EXAM Routine 11/23/2013 1:22 PM [facility] ECHO TRANSESOPHAGEAL (THU) Routine 11/23/2013 1:21 PM [facility] ECG Routine 11/23/2013 11:01 AM [facility] ECHO TRANSTHORACIC (TTE) Routine 11/23/2013 9:23 AM [facility] ECHOCARDIOLOGY IMAGE EXAM Routine 11/23/2013 9:19 AM [facility] ANTIBODY SCREEN, B Routine 11/23/2013 9:14 AM [facility] ABORH, RBC Routine 11/23/2013 9:14 AM [facility] CBC WITH DIFFERENTIAL, B Routine 11/23/2013 8:35 AM [facility] POTASSIUM, S/P Routine 11/23/2013 8:35 AM [facility] THYROID FUNCTION CASCADE, S Routine 11/23/2013 8:35 AM [facility] SODIUM, S/P Routine 11/23/2013 8:35 AM [facility] ALANINE AMINOTRANSFERASE (ALT), S/P Routine 11/23/2013 8:35 AM [facility] PROTHROMBIN TIME (PT), P Routine 11/23/2013 8:35 AM [facility] CREATININE WITH EGFR, S/P Routine 11/23/2013 8:35 AM [facility] PROTIME/INR POC-LAB Routine 10/24/2013 2:04 PM [facility] INR, POCT, B Routine 10/24/2013 10:25 AM [facility] PUL HOME OVERNIGHT OXIMETRY Routine 10/19/2013 3:16 PM [facility] INR, POCT, B Routine 10/05/2013 1:33 PM [facility] PROTIME/INR POC-LAB Routine 09/18/2013 10:41 AM [facility] INR, POCT, B Routine 09/15/2013 8:05 AM CDT ECG Routine 09/13/2013 4:52 PM CDT ECG Routine 09/13/2013 4:31 PM CDT ECHO TRANSESOPHAGEAL (THU) Routine 09/13/2013 3:40 PM CDT ECHOCARDIOLOGY IMAGE EXAM Routine 09/13/2013 3:14 PM CDT ACTIVATED PARTIAL THROMBOPLASTIN TIME (APTT), P Routine 09/13/2013 12:22 PM CDT ELECTROLYTE (CHEM 4) PANEL, S/P Routine 09/13/2013 12:22 PM CDT CBC WITH DIFFERENTIAL, B Routine 09/13/2013 12:22 PM CDT PROTHROMBIN TIME (PT), P Routine 09/13/2013 12:22 PM CDT ECG Routine 09/13/2013 12:18 PM CDT PROTIME/INR POC-LAB Routine 09/12/2013 10:04 AM CDT PROTIME/INR POC-LAB Routine 08/16/2013 9:09 AM CDT FERRITIN, S Routine 08/16/2013 9:09 AM CDT FUNGAL SMEAR Routine 06/27/2013 1:38 PM CDT PROTIME/INR POC-LAB Routine 06/20/2013 10:13 AM CDT MR CHEST ANGIOGRAM WITHOUT AND WITH IV CONTRAST Routine 05/31/2013 9:23 AM CDT ECG Routine 05/25/2013 3:14 PM CDT PROTIME/INR POC-LAB Routine 05/23/2013 10:15 AM CDT PUL HOME OVERNIGHT OXIMETRY Routine 05/16/2013 11:00 PM CDT PUL HOME OVERNIGHT OXIMETRY Routine 05/11/2013 12:13 PM CDT DX CHEST AP OR PA AND LATERAL 2 VIEWS Routine 05/10/2013 2:35 PM CDT CBC WITH DIFFERENTIAL, B Routine 05/10/2013 2:13 PM CDT PROTHROMBIN TIME (PT), P Routine 05/10/2013 2:13 PM CDT ELECTROLYTE (CHEM 4) PANEL, S/P Routine 05/10/2013 2:13 PM CDT CARDIAC BIOMARKER PANEL, S Routine 05/10/2013 2:13 PM CDT ECG Routine 05/10/2013 2:05 PM CDT PROTIME/INR POC-LAB Routine 04/25/2013 10:23 AM CDT DX FINGER UNILATERAL 2+ VIEWS Routine 03/29/2013 11:23 AM CDT PROTIME/INR POC-LAB Routine 03/28/2013 10:21 AM CDT ECG Routine 03/06/2013 10:21 PM CDT ELECTROLYTE (CHEM 4) PANEL, S/P Routine 03/06/2013 9:20 PM CDT CBC WITH DIFFERENTIAL, B Routine 03/06/2013 9:20 PM CDT PROTHROMBIN TIME (PT), P Routine 03/06/2013 9:20 PM CDT THYROID-STIMULATING HORMONE-SENSITIVE (S-TSH) Routine 03/06/2013 9:20 PM CDT ECG Routine 03/06/2013 9:11 PM CDT ECG Routine 03/01/2013 1:50 PM CDT INR, POCT, B Routine 02/27/2013 2:51 PM CDT INR, POCT, B Routine 02/20/2013 10:06 AM CDT EXERCISE ECG Routine 02/16/2013 8:04 AM CDT ECG Routine 02/16/2013 7:39 AM CDT PHOSPHORUS (INORGANIC), S Routine 02/16/2013 4:41 AM CDT PROTHROMBIN TIME (PT), P Routine 02/16/2013 4:41 AM CDT MAGNESIUM, S Routine 02/16/2013 4:41 AM CDT CALCIUM, TOT, S/P Routine 02/16/2013 4:41 AM CDT ALBUMIN, S/P Routine 02/16/2013 4:41 AM CDT ELECTROLYTE (CHEM 4) PANEL, S/P Routine 02/16/2013 4:41 AM CDT CBC WITH DIFFERENTIAL, B Routine 02/16/2013 4:41 AM CDT ECG Routine 02/15/2013 5:19 AM CDT PROTHROMBIN TIME (PT), P Routine 02/15/2013 3:59 AM CDT CBC WITH DIFFERENTIAL, B Routine 02/15/2013 3:59 AM CDT ELECTROLYTE (CHEM 4) PANEL, S/P Routine 02/15/2013 3:59 AM CDT ECG Routine 02/14/2013 3:50 PM CDT LIPID PANEL, S Routine 02/14/2013 3:22 PM CDT ECG Routine 02/14/2013 6:42 AM CDT CBC WITH DIFFERENTIAL, B Routine 02/13/2013 11:00 AM CDT MAGNESIUM, S Routine 02/13/2013 11:00 AM CDT CALCIUM, IONIZED, S/B Routine 02/13/2013 11:00 AM CDT PH BLOOD GAS Routine 02/13/2013 11:00 AM CDT ELECTROLYTE (CHEM 4) PANEL, S/P Routine 02/13/2013 11:00 AM CDT PROTHROMBIN TIME (PT), P Routine 02/13/2013 11:00 AM CDT ECG Routine 02/13/2013 10:48 AM CDT PROTHROMBIN TIME (PT), P Routine 02/08/2013 8:19 AM CDT PHYSICAL MEDICINE AND REHAB IMAGE EXAM Routine 02/08/2013 7:35 AM CDT PROTIME/INR POC-LAB Routine 02/03/2013 10:48 AM CDT PROTIME/INR POC-LAB Routine 01/17/2013 9:30 AM COOK STARCH DX PELVIS 1-2 VIEWS Routine 01/12/2013 10:35 AM [facility] STARCH CYCLIC CITRULLINATED PEPTIDE ABS, IGG, S Routine 01/05/2013 1:56 PM [facility] AB TO EXTRACTABLE NUCLEAR AG EVAL, S Routine 01/05/2013 1:56 PM [facility]ARCH THYROID-STIMULATING HORMONE-SENSITIVE (S-TSH) Routine 01/05/2013 1:56 PM [facility]ARCH CREATINE KINASE (CK), S Routine 01/05/2013 1:56 PM [facility]ARCH SEDIMENTATION RATE, B Routine 01/05/2013 1:56 PM [facility] PROTHROMBIN TIME (PT), P Routine 12/23/2012 11:03 AM [facility] PHYSICAL MEDICINE AND REHAB IMAGE EXAM Routine 12/23/2012 8:22 AM [facility] MR PELVIS WITHOUT IV CONTRAST Routine 12/20/2012 4:22 PM [facility] DX SACROILIAC JOINTS 3+ VIEWS Routine 12/20/2012 12:19 PM [facility] INR, POCT, B Routine 12/16/2012 10:[address] ABDOMEN PELVIS WITHOUT IV CONTRAST Routine 10/24/2012 8:57 PM [facility]ARCH ELECTROLYTE (CHEM 4) PANEL, S/P Routine 10/24/2012 8:00 PM C[facility]ARCH CBC WITH DIFFERENTIAL, B Routine 10/24/2012 8:00 PM [facility] ST[facility] FL ESOPHAGRAM SINGLE CONTRAST Routine 10/11/2012 1:23 PM [facility]ARCH INR, POCT, B Routine 10/04/2012 8:06 AM [facility] INR, POCT, B Routine 09/22/2012 9:41 AM C[facility]ARCH CBC WITH DIFFERENTIAL, B Routine 09/21/2012 4:37 PM [facility] PROTHROMBIN TIME (PT), P Routine 09/21/2012 4:37 PM [facility] CREATININE WITH EGFR, S/P Routine 09/21/2012 4:37 PM [facility] DX KNEE UNILATERAL 3 VIEWS Routine 09/12/2012 1:34 PM CDT DX HIP TO ANKLE STANDING Routine 09/12/2012 1:34 PM CDT BI BREAST SCREENING UNILATERAL Routine 08/23/2012 12:57 PM CDT BMD BONE DENSITY SPINE HIPS Routine 08/23/2012 8:51 AM CDT POTASSIUM, S/P Routine 08/23/2012 6:49 AM CDT SODIUM, S/P Routine 08/23/2012 6:49 AM CDT GLUCOSE, FASTING, S/P Routine 08/23/2012 6:49 AM CDT LIPID PANEL, S Routine 08/23/2012 6:49 AM CDT CREATININE WITH EGFR, S/P Routine 08/23/2012 6:49 AM CDT HSV/VZV DIRECT SMEAR Routine 08/19/2012 3:11 PM CDT PROTIME/INR POC-LAB Routine 08/17/2012 9:17 AM CDT INR, POCT, B Routine 06/07/2012 1:45 PM CDT DX KNEE UNILATERAL 2 VIEWS Routine 02/26/2012 1:41 PM CDT DX HIP TO ANKLE STANDING Routine 02/26/2012 1:41 PM CDT DX SHOULDER UNILATERAL 2+ VIEWS Routine 02/17/2012 5:06 PM CDT DX FINGER UNILATERAL 2+ VIEWS Routine 02/17/2012 1:32 PM CDT PROTIME/INR POC-LAB Routine 02/12/2012 9:13 AM CDT PROTIME/INR POC-LAB Routine 01/22/2012 9:51 AM [facility] DX CLAVICLE SERENDIPITY 1 VIEW Routine 12/27/2011 7:16 PM [facility] STARCH DX CLAVICLE UNILATERAL Routine 2 2:53 PM [facility] ST[facility] DX CHEST AP OR PA AND LATERAL 2 VIEWS Routine 12/27/2011 2:43 PM [facility] PROTIME/INR POC-LAB Routine 12/21/2011 8:17 AM [facility] OUTSIDE DX SKELETAL Routine 12/16/2011 1:44 AM [facility] OUTSIDE DX SKELETAL Routine 12/16/2011 1:44 AM [facility] OUTSIDE DX CHEST Routine 12/16/2011 1:44 AM [facility] PROTIME/INR POC-LAB Routine 12/09/2011 9:34 AM [facility] DX HIP TO ANKLE STANDING Routine 12/08/2011 1:15 PM C[facility] STARCH DX KNEE UNILATERAL 2 VIEWS Routine 12/08/2011 1:14 PM [facility] PROTIME/INR POC-LAB Routine 11/24/2011 8:31 AM [facility] DX CHEST AP OR PA AND LATERAL 2 VIEWS Routine 09/25/2011 5:43 PM [facility] NM LUNG VENTILATION AND PERFUSION Routine 09/25/2011 5:24 PM [facility] ECG Routine 09/25/2011 10:[address] ABDOMEN PELVIS WITHOUT IV CONTRAST Routine 09/25/2011 8:52 AM [facility] DX CHEST AP OR PA AND LATERAL 2 VIEWS Routine 09/22/2011 1:26 PM [facility] STARCH ECG Routine 09/21/2011 7:07 PM [facility] ECHOCARDIOLOGY IMAGE EXAM Routine 09/21/2011 2:26 PM [facility] ECHOCARDIOGRAM Routine 09/21/2011 2:05 PM [facility]ARCH ECG Routine 09/21/2011 10:30 AM [facility] ST[facility] DX WRIST 2 VIEWS Routine 09/21/2011 5:32 AM C[facility] ST[facility] DX CHEST AP OR PA AND LATERAL 2 VIEWS Routine 09/21/2011 5:32 AM C[facility] STARCH DX KNEE UNILATERAL 2 VIEWS Routine 09/21/2011 5:32 AM C[facility] DX CHEST AP OR PA AND LATERAL 2 VIEWS Routine 09/17/2011 3:21 PM CDT US EXTREMITY VEINS Routine 09/17/2011 12:59 PM CDT ECG Routine 09/11/2011 10:40 AM CDT DX KNEE UNILATERAL 2 VIEWS Routine 09/11/2011 10:35 AM CDT ANTIBODY SCREEN, B Routine 09/11/2011 6:12 AM CDT ABORH, RBC Routine 09/11/2011 6:12 AM CDT DX HIP TO ANKLE STANDING Routine 09/10/2011 1:53 PM CDT ORTHOPEDIC SURGERY IMAGE EXAM Routine 09/10/2011 1:41 PM CDT BI BREAST SCREENING UNILATERAL Routine 09/10/2011 10:41 AM CDT DX HAND 2 VIEWS AND WRIST 2 VIEWS Routine 08/20/2011 11:23 AM CDT DX KNEE STANDING 4 VIEWS Routine 08/13/2011 2:16 PM CDT ORTHOPEDIC SURGERY IMAGE EXAM Routine 08/13/2011 2:00 PM CDT DX CHEST AP OR PA AND LATERAL 2 VIEWS Routine 06/29/2011 4:59 PM CDT BI BREAST SCREENING UNILATERAL Routine 08/19/2010 12:33 PM CDT DX KNEE UNILATERAL 3 VIEWS Routine 07/04/2010 10:40 AM CDT INTERPRETATION OF OUTSIDE DX EXTREMITY Routine 06/04/2010 10:26 AM CDT OUTSIDE DX SKELETAL Routine 05/16/2010 9:31 AM CDT OUTSIDE DX SKELETAL Routine 05/16/2010 9:31 AM CDT DX KNEE LEFT 3 VIEWS Routine 05/16/2010 9:31 AM CDT DX KNEE RIGHT 3 VIEWS Routine 05/16/2010 9:31 AM CDT DX KNEE UNILATERAL 2 VIEWS Routine 12/04/2009 9:54 AM [facility]ARCH DX FOOT UNILATERAL 3+ VIEWS Routine 11/04/2009 11:52 AM [facility] HXGENERAL PATHOLOGY REPORT Routine 10/08/2009 8:32 AM [facility] BI BREAST SCREENING UNILATERAL Routine 09/04/2009 10:06 AM CDT US ASPIRATION INJECTION JOINT Routine 06/12/2009 2:53 PM CDT US NON VASCULAR EXTREMITY Routine 06/12/2009 2:24 PM CDT DX FOOT UNILATERAL 3+ VIEWS Routine 06/11/2009 2:15 PM CDT RADIOLOGY IMAGE EXAM Routine 04/22/2009 9:30 AM CDT DX FOOT RIGHT 3+ VIEWS Routine 9 9:27 AM CDT BI ULTRASOUND EXAM Routine 07/12/2008 11:49 AM CDT BI BREAST DIAGNOSTIC Routine 07/12/2008 10:[address] HEAD WITHOUT IV CONTRAST Routine 07/10/2008 12:49 PM CDT BI BREAST SCREENING UNILATERAL Routine 07/10/2008 12:09 PM CDT POLYSOMNOGRAPHY Routine 11/20/2007 10:38 PM [facility] ECHOCARDIOLOGY IMAGE EXAM Routine 11/16/2007 12:36 PM [facility] ECHOCARDIOGRAM Routine 11/16/2007 12:32 PM [facility]ARCH PUL HOME OVERNIGHT OXIMETRY Routine 11/15/2007 10:45 PM [facility] ECG Routine 11/15/2007 6:31 PM C[facility] ST[facility] DX CHEST AP OR PA AND LATERAL 2 VIEWS Routine 11/15/2007 1:53 PM C[facility] STARCH ECG Routine 11/15/2007 12:41 PM [facility] BI BREAST SCREENING UNILATERAL Routine 06/29/2007 2:35 PM CDT US EXTREMITY VEINS Routine 04/08/2007 10:47 AM CDT FL ESOPHAGRAM SINGLE CONTRAST Routine 03/14/2007 9:02 AM CDT FL SWALLOW FUNCTION AND ESOPHAGRAM WITH VIDEO Routine 03/14/2007 9:02 AM CDT PULMONARY FUNCTION TESTS Routine 03/08/2007 2:55 PM CDT DX CHEST AP OR PA AND LATERAL 2 VIEWS Routine 12/21/2006 11:47 AM [facility] DX ABDOMEN 1 VIEW Routine 12/21/2006 11:47 AM [facility] ANTIBODY SCREEN, B Routine 07/13/2006 11:29 AM CDT ABORH, RBC Routine 07/13/2006 11:[address] ABDOMEN PELVIS WITHOUT IV CONTRAST Routine 07/03/2006 1:30 PM CDT BI ASPIRATION Routine 05/20/2006 11:16 AM CDT BI ULTRASOUND EXAM Routine 05/20/2006 10:30 AM CDT BI BREAST DIAGNOSTIC Routine 05/20/2006 9:53 AM CDT BI BREAST SCREENING UNILATERAL Routine 05/19/2006 8:[address] ABDOMEN PELVIS WITHOUT IV CONTRAST Routine 04/20/2005 1:16 PM CDT DX KNEE UNILATERAL 3 VIEWS Routine 12/30/2004 10:41 AM [facility] MR LOWER EXTREMITY Routine 08/12/2004 4:31 PM CDT DX KNEE UNILATERAL 4+ VIEWS Routine 08/12/2004 3:45 PM CDT HXGENERAL PATHOLOGY REPORT Routine 07/04/2004 3:27 PM CDT DX KNEE UNILATERAL 2 VIEWS Routine 07/02/2004 3:30 PM CDT BI BREAST SCREENING UNILATERAL Routine 05/21/2004 11:10 AM CDT BMD BONE DENSITY SPINE HIPS Routine 05/21/2004 10:[address] HEAD WITHOUT IV CONTRAST Routine 05/04/2004 3:09 PM CDT DX CHEST AP OR PA AND LATERAL 2 VIEWS Routine 05/04/2004 2:00 PM CDT US EXTREMITY VEINS Routine 11/16/2003 1:14 PM [facility] PULMONARY FUNCTION TESTS Routine 01/18/2003 4:[address] CHEST WITHOUT IV CONTRAST Routine 01/18/2003 1:03 PM [facility]ARCH BI BREAST SCREENING UNILATERAL Routine 01/18/2003 11:28 AM [facility] PULMONARY FUNCTION TESTS Routine 01/18/2003 7:21 AM C[facility] STARCH DX CHEST AP OR PA AND LATERAL 2 VIEWS Routine 01/15/2003 3:00 PM C[facility] STARCH DX CHEST AP OR PA AND LATERAL 2 VIEWS Routine 08/19/2002 2:00 PM CDT BI BREAST SCREENING UNILATERAL Routine 12/16/2001 8:39 AM [facility] CYTOLOGY Routine 12/06/2001 3:41 PM C[facility] STARCH US EXTREMITY VEINS Routine 10/26/2001 11:03 PM [facility] ST[facility] MR LUMBAR SPINE WITHOUT IV CONTRAST Routine 10/24/2001 8:26 AM [facility] DX LUMBAR SPINE 4+ VIEWS Routine 07/06/2001 1:[address] HEAD WITHOUT IV CONTRAST Routine 06/15/2001 9:35 AM CDT BI BREAST SCREENING UNILATERAL Routine 11/26/2000 11:35 AM [facility] HXGENERAL PATHOLOGY REPORT Routine 12/02/1999 9:19 AM [facility] HXSTAN SURG BLD ORDER Routine 12/02/1999 6:40 AM [facility] ABORH, RBC Routine 12/02/1999 6:40 AM [facility] ECG Routine 11/05/1999 4:13 PM [facility]ARCH US PELVIS TRANSVAGINAL AND TRANSABDOMINAL Routine 10/24/1999 2:38 PM [facility] CYTOLOGY Routine 10/21/1999 2:00 PM [facility] BI BREAST SCREENING BILATERAL Routine 04/01/1999 4:16 PM CDT CYTOLOGY Routine 01/07/1996 6:58 PM [facility] ECG Routine 01/07/1996 11:07 AM [facility] DERMATOPATHOLOGY Routine 10/29/1995 1:37 PM [facility] ECG Routine 03/31/1994 11:52 AM CDT Results * Prothrombin Time (PT) (05/08/2024) Only the most recent of167 resultswithin the time period is included. EXT INR 2.70 PATIENT PO INT OF CARE DEVICE Comment:self Blood (Blood, Venous) Historical Provider LAB BLOOD ADD-ON PATIENT POINT OF CARE DEVICE * (TTE) 2D ECHO DOPPLER COLOR (04/27/2024 1:10 PM CDT) Ejection Fraction 65 MC CV EIMS Sinus of Valsalva 38 MC CV EIMS Sinotubular Junction 33 MC CV EIMS Proximal Ascending Aorta 37 MC CV EIMS Mid-Ascending Aorta 41 MC CV EIMS LV Mass Index 72 MC CV EIMS LV End-Diastolic Diameter 51 MC CV EIMS LV End-Systolic Diameter 34 MC CV EIMS LV End-Diastolic Volume 98 MC CV EIMS LV End-Systolic Volume 34 MC CV EIMS MV E Velocity 0.9 MC CV EIMS MV A Velocity 0.4 MC CV EIMS MV E/A 2.25 MC CV EIMS MV e' Velocity Medial 0.07 MC CV EIMS MV e' Velocity Lateral 0.08 MC CV EIMS MV E/e' Medial 12.9 MC CV EIMS MV E/e' Lateral 11.3 MC CV EIMS Left ventricular stroke volume index 45 MC CV EIMS Cardiac Output 4.87 MC CV EIMS Cardiac Index 2.51 MC CV EIMS LV Interventricular Septal Wall Thickness 8 MC CV EIMS LV Posterior Wall Thickness 8 MC CV EIMS LV Relative Wall Thickness 31 MC CV EIMS RV 4-Chamber Basal Diameter 51 MC CV EIMS RV 4-Chamber Mid Diameter 32 MC CV EIMS RV 4-Chamber Length 76 MC CV EIMS TAPSE 24 MC CV EIMS Tricuspid Annular S? 0.13 MC CV EIMS TR Vmax 2.48 MC CV EIMS RA Pressure 5 MC CV EIMS RV Systolic Pressure 30 MC CV EIMS TR Vmax/RVOT TVI 0.12 MC CV EIMS IVC Diameter 9 MC CV EIMS Anatomical Region Laterality Modality Echocardiography 04/27/2024 11:4 8 AM CDT Impressions 04/27/2024 1:17 PM CDT Last full echocardiogram performed 11/01/2023. LEFT VENTRICLE:Normal left ventricular chamber size. Calculated 2-D biplane volumetric left ventricular ejection fraction of 65% without the use of ultrasound enhancing agent. No regional wall motion abnormalities. Indeterminate left ventricular filling pressure. RIGHT VENTRICLE:Moderately enlarged right ventricular chamber size. Normal right ventricular systolic function. Right ventricular strain assessment was performed but not reported based on health director's judgment. Estimated right ventricular systolic pressure 30 mmHg (right atrial pressure of 5 mmHg). ATRIA:Enlarged left atrial size by visual estimate. Normal right atrial size. CARDIAC VALVES:Trileaflet aortic valve. Sclerotic aortic valve. Trivial aortic valve regurgitation. Mildly thickened mitral valve. Mild mitral valve regurgitation. Normal pulmonary valve (based on limited visualization). Trivial pulmonary valve regurgitation. Normal tricuspid valve. Mild tricuspid valve regurgitation. OTHER ECHO FINDINGS:Visualization of the inferior vena cava is consistent with low to normal estimated central venous pressure Normal sinus of Valsalva diameter of 38 mm. Upper limit of normal of the sinus of Valsalva for age, sex and BSA is 40 mm. Normal proximal ascending aorta diameter of 37 mm. Mildly enlarged mid ascending aorta diameter of 41 mm. Upper limit of normal of the mid ascending aorta, for age, sex and BSA is 40 mm. No intracardiac mass or thrombus, but the left atrial appendage cannot be visualized adequately with transthoracic echo to exclude thrombus in this location. Tiny ??pericardial effusion (noted adjacent to the ascending aorta without echocardiographic features of hemodynamic significance). For the complete report, see the Order-Level Documents. Narrative 04/27/2024 1:17 PM CDT For the complete report, see the Order-Level Documents. Hemodynamics Heart Rate: 55 BPM Blood Pressure: 135 / 78 mmHg ECG: Sinus rhythm Final Impressions 1. Moderately enlarged right ventricular chamber size, normal systolic function, estimated right ventricular systolic pressure 30 mmHg (right atrial pressure of 5 mmHg). 2. Normal left ventricular chamber size, no regional wall motion abnormalities, calculated 2-D biplane volumetric ejection fraction of 65%. 3. No hemodynamically significant valvular heart disease. 4. Sclerotic aortic valve. 5. Mildly enlarged mid ascending aorta diameter of 41 mm, upper limit of normal for age, sex and BSA is 40 mm. 6. Tiny ??pericardial effusion (noted adjacent to the ascending aorta without echocardiographic features of hemodynamic significance). 7. Compared to the report of 11/01/2023 the following changes have occurred: The estimated right ventricular systolic pressure is slightly lower today at a similar estimate central venous pressure (again normal) but at a lower systemic arterial pressure. Despite slight difference in reported RV size, no significance change has occurred. ??The tiny pericardial effusion was not previously present (previously fluid only visualized in systole). ??Side by side comparison of images performed. 8. See SERIAL STUDIES for comparison of measurements and hemodynamics. Procedure Note Brandon Bhatia M.D. - 06/13/2024 For the complete report, see the Order-Level Documents. Hemodynamics Heart Rate: 55 BPM Blood Pressure: 135 / 78 mmHg ECG: Sinus rhythm Final Impressions 1. Moderately enlarged right ventricular chamber size, normal systolicfunction, estimated right ventricular systolic pressure 30 mmHg (rightatrial pressure of 5 mmHg). 2. Normal left ventricular chamber size, no regional wall motionabnormalities, calculated 2-D biplane volumetric ejection fraction of65%. 3. No hemodynamically significant valvular heart disease. 4. Sclerotic aortic valve. 5. Mildly enlarged mid ascending aorta diameter of 41 mm, upper limit ofnormal for age, sex and BSA is 40 mm. 6. Tiny pericardial effusion (noted adjacent to the ascending aortawithout echocardiographic features of hemodynamic significance). 7. Compared to the report of 11/01/2023 the following changes haveoccurred: The estimated right ventricular systolic pressure is slightlylower today at a similar estimate central venous pressure (again normal)but at a lower systemic arterial pressure. Despite slight difference inreported RV size, no significance change has occurred. The tinypericardial effusion was not previously present (previously fluid onlyvisualized in systole). Side by side comparison of images performed. 8. See SERIAL STUDIES for comparison of measurements and hemodynamics. Findings Last full echocardiogram performed 11/01/2023. LEFT VENTRICLE:Normal left ventricular chamber size. Calculated 2-Dbiplane volumetric left ventricular ejection fraction of 65% without theuse of ultrasound enhancing agent. No regional wall motion abnormalities.Indeterminate left ventricular filling pressure. RIGHT VENTRICLE:Moderately enlarged right ventricular chamber size. Normalright ventricular systolic function. Right ventricular strain assessmentwas performed but not reported based on health director's judgment. Estimatedright ventricular systolic pressure 30 mmHg (right atrial pressure of 5mmHg). ATRIA:Enlarged left atrial size by visual estimate. Normal right atrialsize. CARDIAC VALVES:Trileaflet aortic valve. Sclerotic aortic valve. Trivialaortic valve regurgitation. Mildly thickened mitral valve. Mild mitralvalve regurgitation. Normal pulmonary valve (based on limitedvisualization). Trivial pulmonary valve regurgitation. Normal tricuspidvalve. Mild tricuspid valve regurgitation. OTHER ECHO FINDINGS:Visualization of the inferior vena cava is consistentwith low to normal estimated central venous pressure Normal sinus ofValsalva diameter of 38 mm. Upper limit of normal of the sinus of Valsalvafor age, sex and BSA is 40 mm. Normal proximal ascending aorta diameter of37 mm. Mildly enlarged mid ascending aorta diameter of 41 mm. Upper limitof normal of the mid ascending aorta, for age, sex and BSA is 40 mm. Nointracardiac mass or thrombus, but the left atrial appendage cannot bevisualized adequately with transthoracic echo to exclude thrombus in thislocation. Tiny pericardial effusion (noted adjacent to the ascendingaorta without echocardiographic features of hemodynamic significance). For the complete report, see the Order-Level Documents. Hugo Sanchez M.D. CV ECHO PROCEDURES * DX Chest AP or PA and Lateral 2 Views (04/27/2024 9:32 AM CDT) Only the most recent of28 resultswithin the time period is included. Anatomical Region Laterality Modality Chest, Thoracic RST LOS, Tho racic ARZ LOS, Thoracic FLA LOS N/A Digital Radiography Impressions 04/27/2024 9:36 AM CDT Minimal cardiac enlargement. Moderate esophageal hiatal hernia. Slight fibrosis or linear atelectasis in the bases. Tortuous aorta. Mild degenerative changes thoracic spine. Posttraumatic deformity right shoulder. No significant change since 11/12/2022. Narrative 04/27/2024 9:36 AM CDT EXAM: ??DX CHEST AP OR PA AND LATERAL 2 VIEWS Procedure Note Yonatan Dotson M.D. - 04/27/2024 EXAM: DX CHEST AP OR PA AND LATERAL 2 VIEWS IMPRESSION: Minimal cardiac enlargement. Moderate esophageal hiatal hernia. Slightfibrosis or linear atelectasis in the bases. Tortuous aorta. Milddegenerative changes thoracic spine. Posttraumatic deformity rightshoulder. No significant change since 11/12/2022. Hugo Sanchez M.D. IMG DIAGNOSTIC IMAGI NG PROCEDURES * ECG 12 Lead (04/27/2024 8:55 AM CDT) Only the most recent of75 resultswithin the time period is included. Ventricular Rate ECG/Min 57 BPM MUSE MO Interval 206 ms MUSE QRSD Interval 94 ms MUSE QT Interval 456 ms MUSE QTC Interval 443 ms MUSE P [place] 34 degrees MUSE R [place] 19 degrees MUSE T Wave [place] 31 degrees MUSE 04/27/2024 8:55 AM CDT 04/27/2024 9:12 AM CDT Impressions MUSE - 04/27/2024 9:12 AM CDT Sinus bradycardia with 1st degree A-V block Otherwise normal ECG When compared with ECG of 01-Nov-2023 16:15, MO interval has increased Reviewed by SILVIA Dumont Narrative Procedure Note Helder Valero M.D., Ph.D. - 04/27/2024 IMPRESSION: Sinus bradycardia with 1st degree A-V block Otherwise normal ECG When compared with ECG of 01-Nov-2023 16:15, MO interval has increased Reviewed by SILVIA Dumont Hugo Sanchez M.D. ECG ORDERABLES MUSE NA * (ABNORMAL) Lipid Panel (04/27/2024 8:42 AM CDT) Only the most recent of11 resultswithin the time period is included. Triglycerides 144 mg/dL 04/27/2024 10:16 AM CDT DTL Comment: ----REFERENCE VALUE---- Normal: <150 mg/dL Borderline High: 150-199 mg/dL High: 200-499 mg/dL Very High: > or =500 mg/dL Cholesterol, Total 234(H) mg/dL 2023 10:16 AM CDT DTL Comment: ----REFERENCE VALUE---- Desirable: < 200 mg/dL Borderline High: 200 - 239 mg/dL High: > or = 240 mg/dL Cholesterol, LDL, Calculated 148(H) mg/dL 04/27/2024 10:16 AM CDT DTL Comment: ----REFERENCE VALUE---- Desirable: <100 mg/dL Above Desirable: 100-129 mg/dL Borderline High: 130-159 mg/dL High: 160-189 mg/dL Very High: >=190 mg/dL ----ADDITIONAL INFORMATION---- LDL cholesterol calculated using the Sood/NIH equation. Cholesterol, HDL, S 60 >=50 mg/dL 04/27/2024 10:16 AM CDT DTL Cholesterol, Non-HDL, Calculated 174(H) mg/dL 04/27/2024 10:16 AM CDT DTL Comment: ----REFERENCE VALUE---- Desirable: <130 mg/dL Above Desirable: 130-159 mg/dL Borderline High: 160-189 mg/dL High: 190-219 mg/dL Very High: > or =220 mg/dL Fasting (8 HR or more) Yes 04/27/2024 8:42 AM CDT DTL Blood (Blood, Venous) 04/27/2024 8:42 AM CDT 04/27/2024 9:24 AM CDT Hugo Sanchez M.D. LAB BLOOD ADD-ON Performing Organization Address [facility] Co de Phone Number [facility] [address] [facility] [place] [address] [place] [address] * NT-Pro B-Type Natriuretic Peptide (BNP) (04/27/2024 8:42 AM CDT) Only the most recent of4 resultswithin the time period is included. NT-Pro BNP 203 <=540 pg/mL 04/27/2024 10:16 AM CDT DTL Comment: NT-proBNP values less than 300 pg/mL have a 99% negative predictive value for excluding acute congestive heart failure. A cutoff of 1200 pg/mL for patients with an eGFR<60 yields a diagnostic sensitivity and specificity of 89% and 72% for acute congestive heart failure. A diagnostic NT-proBNP cutoff of 1800 pg/mL has been suggested in adults over 75 years of age in the absence of renal failure. Blood (Blood, Venous) 04/27/2024 8:42 AM CDT 04/27/2024 9:24 AM CDT Hugo Sanchez M.D. LAB BLOOD ADD-ON [facility] [address] [place] [address], [facility] DTL [facility] [address] [place] [address] * CBC with Differential, Blood (04/27/2024 8:42 AM CDT) Only the most recent of28 resultswithin the time period is included. Hemoglobin 13.9 11.6 - 15.0 g/dL 04/27/2024 9:33 AM CDT DTL Hematocrit 43.0 35.5 - 44.9 % 04/27/2024 9:33 AM CDT DTL Erythrocytes 4.71 3.92 - 5.13 x10(12)/L 04/27/2024 9:33 AM CDT DTL MCV 91.3 78.2 - 97.9 fL 04/27/2024 9:33 AM CDT DTL RBC Distrib Width 14.2 12.2 - 16.1 % 04/27/2024 9:33 AM CDT DTL Platelet Count 185 157 - 371 x10(9)/L 04/27/2024 9:33 AM CDT DTL Leukocytes 5.8 3.4 - 9.6 x10(9)/L 04/27/2024 9:33 AM CDT DTL Neutrophils 2.72 1.56 - 6.45 x10(9)/L 04/27/2024 9:33 AM CDT DHPM Lymphocytes 2.23 0.95 - 3.07 x10(9)/L 04/27/2024 9:33 AM CDT DTL Monocytes 0.53 0.26 - 0.81 x10(9)/L 04/27/2024 9:33 AM CDT DTL Eosinophils 0.21 0.03 - 0.48 x10(9)/L 04/27/2024 9:33 AM CDT DTL Basophils 0.06 0.01 - 0.08 x10(9)/L 04/27/2024 9:33 AM CDT DTL Blood (Blood, Venous) 04/27/2024 8:42 AM CDT 04/27/2024 9:08 AM CDT Horng H Sanchez M.D. LAB BLOOD ADD-ON [facility] [address] [place] [address], [facility] [address] [place] [address] [facility] [address] [place] [address] * BUN (Blood Urea Nitrogen) (04/27/2024 8:42 AM CDT) Only the most recent of2 resultswithin the time period is included. BUN (Blood Urea Nitrogen), S 19 6 - 21 mg/dL 04/27/2024 10:16 AM CDT DTL Blood (Blood, Venous) 04/27/2024 8:42 AM CDT 04/27/2024 9:24 AM CDT Hugo Sanchez M.D. LAB BLOOD ADD-ON Performing Organization Address City/[facility]/ZIP Co de Phone Number [facility] [address] [place] [address], [facility] [address] [place] [address] * AST (Aspartate Aminotransferase) (04/27/2024 8:42 AM CDT) Only the most recent of4 resultswithin the time period is included. Aspartate Aminotransferase (AST), S 18 8 - 43 U/L 04/27/2024 10:16 AM CDT DTL Blood (Blood, Venous) 04/27/2024 8:42 AM CDT 04/27/2024 9:24 AM CDT Hugo Sanchez M.D. LAB BLOOD ADD-ON [facility] [address] [place] [address], [facility] [address] [place] [address] * (ABNORMAL) S-TSH (Thyroid-Stimulating Hormone - Sensitive) (04/27/2024 8:42 AM CDT) Only the most recent of6 resultswithin the time period is included. TSH, Sensitive 4.9(H) 0.3 - 4.2 mIU/L 04/27/2024 10:16 AM CDT DT Blood (Blood, Venous) 04/27/2024 8:42 AM CDT 04/27/2024 9:24 AM CDT Hugo Sanchez M.D. LAB BLOOD ADD-ON [facility] [address] [place] [address], [facility] [address] [place] [address] * Sodium (04/27/2024 8:42 AM CDT) Only the most recent of10 resultswithin the time period is included. Sodium, S 141 135 - 145 mmol/L 04/27/2024 10:16 AM CDT DT Blood (Blood, Venous) 04/27/2024 8:42 AM CDT 04/27/2024 9:24 AM CDT Hugo Sanchez M.D. LAB BLOOD ADD-ON [facility] [address] [place] [address], [facility] [address] [place] [address] * Potassium (04/27/2024 8:42 AM CDT) Only the most recent of19 resultswithin the time period is included. Potassium, S 4.4 3.6 - 5.2 mmol/L 04/27/2024 10:16 AM CDT DT Blood (Blood, Venous) 04/27/2024 8:42 AM CDT 04/27/2024 9:24 AM CDT Ap Buckley M.D., Ph.D. LAB BLOOD AD D-ON Performing Organization Address City/[facility] Co de Phone Number [facility] [address] [facility] [address] [place] [address] * Glucose, Fasting (04/27/2024 8:42 AM CDT) Only the most recent of4 resultswithin the time period is included. Glucose, P 92 70 - 100 mg/dL 04/27/2024 9:59 AM CDT DTL Last Intake 15 hr 04/27/2024 9:22 AM CDT DTL Blood (Blood, Venous) 04/27/2024 8:42 AM CDT 04/27/2024 9:22 AM CDT Hugo Sanchez M.D. LAB BLOOD NON ADD-ON Performing Organization Address [facility] de Phone Number [facility] [address] [facility] [facility] [place] [address] [place] [address] * (ABNORMAL) Creatinine with Estimated GFR (04/27/2024 8:42 AM CDT) Only the most recent of21 resultswithin the time period is included. Creatinine 1.17(H) 0.59 - 1.04 mg/dL 04/27/2024 10:16 AM CDT DTL Estimated GFR (eGFR) 48(L) >=60 mL/min/BSA 04/27/2024 10:16 AM CDT DTL Comment: Estimated GFR calculated using the 2020 CKD_EPI creatinine equation. Blood (Blood, Venous) 04/27/2024 8:42 AM CDT 04/27/2024 9:24 AM CDT Ap Buckley M.D., Ph.D. LAB BLOOD AD D-ON Performing Organization Address [facility] Co de Phone Number [facility] [address] [place] [address], [facility] [address] [place] [address] * Bicarbonate (04/27/2024 8:42 AM CDT) Pathologist [facility] Bicarbonate, S 26 22 - 29 mmol/L 04/27/2024 10:16 AM CDT DTL Blood (Blood, Venous) 04/27/2024 8:42 AM CDT 04/27/2024 9:24 AM CDT Hugo Sanchez M.D. LAB BLOOD ADD-ON Performing Organization Address City/[facility]/ZIP Co de Phone Number [facility] [address] [place], [place] [address] [place] [address] 200 [place] [address] * T4 (Thyroxine), Free, Serum (04/27/2024 8:37 AM CDT) Pathologist [facility] T4 (Thyroxine), Free, S 1.2 0.9 - 1.7 ng/dL 04/28/2024 10:55 AM CDT DT Blood 04/27/2024 8:37 AM CDT 04/28/2024 9:54 AM CDT Hugo Sanchez M.D. LAB BLOOD ADD-ON [facility] [address] [place], [place] [id number] [place] [address] 200 [place] [address] * (ABNORMAL) Thyroid Function [place] (04/27/2024 8:37 AM CDT) Only the most recent of8 resultswithin the time period is included. TSH, Sensitive 4.9(H) 0.3 - 4.2 mIU/L 04/28/2024 10:35 AM CDT DTL Blood (Blood, Venous) 04/27/2024 8:37 AM CDT 04/28/2024 9:54 AM CDT Hugo Sanchez M.D. LAB BLOOD ADD-ON Performing Organization Address City/[facility]/ZIP Co de Phone Number [facility] [address] [place] [address] * Thyroperoxidase (TPO) Antibodies (04/27/2024 8:37 AM CDT) Only the most recent of2 resultswithin the time period is included. Thyroperoxidase Ab, S <15.0 <34.0 IU/mL 04/28/2024 10:55 AM CDT DT Blood 04/27/2024 8:37 AM CDT 04/28/2024 9:54 AM CDT Hugo Sanchez M.D. LAB BLOOD ADD-ON Performing Organization Address [facility] Co de Phone Number [facility] [address] [place] [address], [place] [address] * INR Reflex, POCT, Blood (03/29/2024 2:26 PM CDT) Only the most recent of5 resultswithin the time period is included. INR Reflex, POCT, B 3.3 03/29/2024 2:25 PM CDT [id number] Comment: ----ADDITIONAL INFORMATION---- Standard intensity warfarin therapeutic range: 2.0 to 3.0 ?? High intensity warfarin therapeutic range: 2.5 to 3.5 Blood (Blood, Capillary) 03/29/2024 2:26 PM CDT 03/29/2024 2:25 PM CDT Emilia Lincoln M.D. LAB POCT ORDERABLE S - DEVICE Performing Organization Address City/[facility]/ZIP Co de Phone Number [facility] [address] [place] [address], [place] [id number] [facility] [place] [address] [place] [address] * INR, POCT (Manual) (12/13/2023) INR, POCT 3.40 PATIENT PO INT OF CARE DEVICE Blood (Blood, Venous) 12/13/2023 Narrative Resulting Agency Comment HM Emilia Lincoln M.D. LAB POCT ORDERABLE S-MANUAL Performing Organization Address City/[facility] Co de Phone Number PATIENT POINT OF CARE DEVICE * Home sleep apnea test (HSAT) (11/25/2023 10:32 AM [facility]) Narrative ONBASE - 12/08/2023 10:21 AM [facility] SUMMARY: Home sleep apnea test was performed utilizing the WatchPAT device. The device recorded a total sleep time of 479 minutes. ??Patient slept for a majority of the time in the supine position. ??The device recorded an pAHI of 7.9 and an pRDI of 8.5. ??Supine pAHI was 7.6. ??Snoring was heard for 17 % of time . ??The mean oxygen saturation was 95 %. ??The riley was 80 %. ??A total of ??0.1 minutes were spent with saturation below 88%. CLINICAL INTERPRETATION: Home sleep apnea test performed utilizing the WatchPAT device was suggestive of at least mild sleep apnea. [facility] ORDERAB LES Performing Organization Address [facility] Co de Phone Number ONBASE NA * Renal Function Panel (11/10/2023 9:51 AM [facility]) Potassium, P 4.1 3.6 - 5.2 mmol/L 11/10/2023 11:02 AM [facility] Sodium, P 143 135 - 145 mmol/L 11/10/2023 11:02 AM [facility] Chloride, P 107 98 - 107 mmol/L 11/10/2023 11:02 AM [facility] Bicarbonate, P 26 22 - 29 mmol/L 11/10/2023 11:01 AM [facility] Anion Gap, P 10 7 - 15 11/10/2023 11:02 AM [facility] BUN (Blood Urea Nitrogen), P 18 6 - 21 mg/dL 11/10/2023 11:01 AM [facility] Creatinine 0.94 0.59 - 1.04 mg/dL 11/10/2023 11:01 AM [facility] Estimated GFR (eGFR) 63 >=60 mL/min/BSA 11/10/2023 11:01 AM [facility] Comment: Estimated GFR calculated using the 2020 CKD_EPI creatinine equation. Calcium, Total, P 9.8 8.8 - 10.2 mg/dL 11/10/2023 11:01 AM [facility] Glucose, P 124 70 - 140 mg/dL 11/10/2023 11:01 AM [facility] Albumin, P 4.1 3.5 - 5.0 g/dL 11/10/2023 11:01 AM [facility] Phosphorus (Inorganic), P 2.7 2.5 - 4.5 mg/dL 11/10/2023 10:28 PM [facility] AUST Blood (Blood, Venous) 11/10/2023 9:51 AM [facility] 11/10/2023 10:36 AM [facility] Narrative [facility] - 11/10/2023 10:28 PM [facility] Specimen Information: Specimen ID: [id number] Specimen Type: Blood Specimen Collection Start Date: 11/10/2023 ??9:51 AM Specimen Received Date: 11/10/2023 10:36 AM Specimen ID: [id number] Specimen Type: Blood Specimen Collection Start Date: 11/10/2023 ??9:51 AM Specimen Received Date: 11/10/2023 10:11 PM Fede Palacios M.D. LAB BLOOD ADD-ON [facility] [address] [place] [address], [facility] [place] [address] [place] [address] [facility] [address] [place] [address] * 6 MINUTE WALK (11/03/2023 10:00 AM [facility]) Only the most recent of2 resultswithin the time period is included. Narrative Mary Vincent P.A.-C., M.S. - 11/03/2023 10:00 AM [facility] Mary Vincent P.A.-C., M.S. ? 11/03/2023 10:54 AM Six Minute Walk Performed by: Aiden Sweeney CRAT Authorized by: Ap Buckley M.D., Ph.D. ?? Were medications taken in the last 24 hours?: yes ?? PRE WALK Assistive Device: ??None 6 Min Walk Distance Type: ??Track Height (cm): ??157 Weight (kg): ??100 BMI: ??40.6 Resting Heart Rate: ??81 Heart Rate Source: ??Pulse Oximeter Resting BP: ??164/92 BP Cuff Arm: ??Left BP Cuff Size: ??RegularSupplemental Oxygen used: ??Supplemental Oxygen Not Used Resting SpO2: ??96 SpO2 Site: ??Finger Angina Scale: ??0 - No Angina Lew Dyspnea: ??3 - Moderate Lew Fatigue: ??7 - Very Severe POST WALK Heart Rate: ??89 Heart Rate Source: ??Pulse Oximeter SpO2: ??96 BP: ??174/92 BP Cuff Side: ??Left Angina Scale: ??0 - No Angina Lew Dyspnea: ??7 - Very Severe Lew Fatigue: ??9 - Very, Very Severe Time of Test: ??09:10 [facility] Total Distance Walked (Feet): ??775 Total Distance Walked (Meters): ??236.22 Total # of Times Stopped: ??2 Time Stopped (Seconds): ??40 Time Walked (Seconds): ??320 CALCULATIONS Estimated MPH: ??1.7 Estimated METs: ??2.3 % of Predicted Distance: ??73.69 Ap Buckley M.D., Ph.D. CV STRESS MO OCEDURES * (TTE) 2D ECHO DOPPLER COLOR (11/01/2023 2:55 PM [facility]) Ejection Fraction 60 MC CV EIMS Mid-Ascending Aorta 41 MC CV EIMS LV Mass Index 82 MC CV EIMS LV End-Diastolic Diameter 51 MC CV EIMS LV End-Systolic Diameter 33 MC CV EIMS LV End-Diastolic Volume 105 MC CV EIMS LV End-Systolic Volume 42 MC CV EIMS MV E Velocity 1 MC CV EIMS MV A Velocity 0.5 MC CV EIMS MV E/A 2 MC CV EIMS MV e' Velocity Medial 0.07 MC CV EIMS MV e' Velocity Lateral 0.09 MC CV EIMS MV E/e' Medial 14.3 MC CV EIMS MV E/e' Lateral 11.1 MC CV EIMS Left ventricular stroke volume index 50 MC CV EIMS Cardiac Output 6.1 MC CV EIMS Cardiac Index 3.08 MC CV EIMS LV Interventricular Septal Wall Thickness 10 MC CV EIMS LV Posterior Wall Thickness 8 MC CV EIMS LV Relative Wall Thickness 31 MC CV EIMS RV 4-Chamber Basal Diameter 54 MC CV EIMS RV 4-Chamber Mid Diameter 42 MC CV EIMS RV 4-Chamber Length 79 MC CV EIMS Tricuspid Annular S? 0.12 MC CV EIMS RV Free Wall Strain -26 MC CV EIMS TR Vmax 2.94 MC CV EIMS RA Pressure 5 MC CV EIMS RV Systolic Pressure 40 MC CV EIMS AV mean gradient 6 MC CV EIMS Aortic valve area 2.5 MC CV EIMS Aortic Valve Dimensionless Index 0.72 MC CV EIMS LA Volume Index 61 MC CV EIMS Aortic Valve Systolic Peak Velocity 1.7 MC CV EIMS Anatomical Region Laterality Modality Echocardiography 11/01/2023 2:15 PM [facility] Impressions 11/01/2023 3:56 PM [facility] Anemia, thyrotoxicosis, or another high output state could contribute to the increased Doppler velocities. LEFT VENTRICLE:Normal left ventricular chamber size. Normal left ventricular wall thickness. Calculated 2-D biplane volumetric left ventricular ejection fraction of 60% without the use of ultrasound enhancing agent. No regional wall motion abnormalities. Grade 2/3 left ventricular diastolic dysfunction, consistent with mild- moderately elevated left ventricular filling pressure. RIGHT VENTRICLE:Mildly enlarged right ventricular chamber size. Normal right ventricular systolic function. Averaged right ventricular free wall longitudinal peak systolic strain, vendor calculated, is -28% (normal </= -25%). Estimated right ventricular systolic pressure 40 mmHg (right atrial pressure of 5 mmHg). ATRIA:Severely enlarged left atrial size. Left atrial volume index 61 ml/m2. Mildly enlarged right atrial size. CARDIAC VALVES:Trileaflet aortic valve. Thickened aortic valve. Mild aortic valve regurgitation. Thickened mitral valve. Mild mitral valve regurgitation. Pulmonary valve not well visualized. Normal pulmonary valve systolic velocities. Trivial pulmonary valve regurgitation. Normal tricuspid valve. Mild tricuspid valve regurgitation. OTHER ECHO FINDINGS:Normal inferior vena cava size with normal inspiratory collapse (>50%). Normal mid ascending aorta diameter of 41 mm. Upper limit of normal of the mid ascending aorta, for age, sex and BSA is 40 mm. No intracardiac mass or thrombus identified. No ??pericardial effusion. For the complete report, see the Order-Level Documents. Narrative 11/01/2023 3:56 PM [facility] For the complete report, see the Order-Level Documents. Hemodynamics Heart Rate: 72 BPM Blood Pressure: 159 / 84 mmHg ECG: Sinus rhythm Final Impressions 1. Mildly enlarged right ventricular chamber size, normal systolic function, averaged right ventricular free wall longitudinal peak systolic strain, vendor calculated, is -28% (normal </= -25%), estimated right ventricular systolic pressure 40 mmHg (right atrial pressure of 5 mmHg). 2. Normal left ventricular chamber size, no regional wall motion abnormalities, calculated 2-D biplane volumetric ejection fraction of 60%. 3. Grade 2/3 left ventricular diastolic dysfunction, consistent with mild- moderately elevated left ventricular filling pressure. 4. No ??significant valvular heart disease. 5. Normal mid ascending aorta diameter of 41 mm. 6. Normal inferior vena cava size with normal inspiratory collapse (>50%). 7. No ??pericardial effusion. 8. Compared to the report of 11/12/2022 the following changes have occurred: Estimated right ventricular systolic pressure has increased slightly. ??Side by side comparison of images performed. Procedure Note Viridiana Spencer M.D., M.P.H. - 11/01/2023 For the complete report, see the Order-Level Documents. Hemodynamics Heart Rate: 72 BPM Blood Pressure: 159 / 84 mmHg ECG: Sinus rhythm Final Impressions 1. Mildly enlarged right ventricular chamber size, normal systolicfunction, averaged right ventricular free wall longitudinal peak systolicstrain, vendor calculated, is -28% (normal </= -25%), estimated rightventricular systolic pressure 40 mmHg (right atrial pressure of 5 mmHg). 2. Normal left ventricular chamber size, no regional wall motionabnormalities, calculated 2-D biplane volumetric ejection fraction of60%. 3. Grade 2/3 left ventricular diastolic dysfunction, consistent withmild- moderately elevated left ventricular filling pressure. 4. No significant valvular heart disease. 5. Normal mid ascending aorta diameter of 41 mm. 6. Normal inferior vena cava size with normal inspiratory collapse(>50%). 7. No pericardial effusion. 8. Compared to the report of 11/12/2022 the following changes haveoccurred: Estimated right ventricular systolic pressure has increasedslightly. Side by side comparison of images performed. Findings Anemia, thyrotoxicosis, or another high output state could contribute tothe increased Doppler velocities. LEFT VENTRICLE:Normal left ventricular chamber size. Normal leftventricular wall thickness. Calculated 2-D biplane volumetric leftventricular ejection fraction of 60% without the use of ultrasoundenhancing agent. No regional wall motion abnormalities. Grade 2/3 leftventricular diastolic dysfunction, consistent with mild-moderatelyelevated left ventricular filling pressure. RIGHT VENTRICLE:Mildly enlarged right ventricular chamber size. Normalright ventricular systolic function. Averaged right ventricular free walllongitudinal peak systolic strain, vendor calculated, is -28% (normal </=-25%). Estimated right ventricular systolic pressure 40 mmHg (right atrialpressure of 5 mmHg). ATRIA:Severely enlarged left atrial size. Left atrial volume index 61ml/m2. Mildly enlarged right atrial size. CARDIAC VALVES:Trileaflet aortic valve. Thickened aortic valve. Mildaortic valve regurgitation. Thickened mitral valve. Mild mitral valveregurgitation. Pulmonary valve not well visualized. Normal pulmonary valvesystolic velocities. Trivial pulmonary valve regurgitation. Normaltricuspid valve. Mild tricuspid valve regurgitation. OTHER ECHO FINDINGS:Normal inferior vena cava size with normal inspiratorycollapse (>50%). Normal mid ascending aorta diameter of 41 mm. Upper limitof normal of the mid ascending aorta, for age, sex and BSA is 40 mm. Nointracardiac mass or thrombus identified. No pericardial effusion. For the complete report, see the Order-Level Documents. Ap Buckley M.D., Ph.D. CV ECHO PROC EDURES * (ABNORMAL) Iron and Total Iron-Binding Capacity (11/01/2023 1:25 PM [facility]) Only the most recent of2 resultswithin the time period is included. Iron 24(L) 35 - 145 mcg/dL 11/03/2023 11:37 AM [facility] DTL Total Iron Binding Capacity 404(H) 250 - 400 mcg/dL 11/03/2023 11:37 AM [facility] DTL Percent Saturation 6(L) 14 - 50 % 11/03/2023 11:37 AM [facility] DTL Blood (Blood, Venous) 11/01/2023 1:25 PM [facility] 11/03/2023 10:45 AM [facility] Fede Palacios M.D. LAB BLOOD ADD-ON Performing Organization Address City/[facility]/ZIP Co de Phone Number [facility] [address] [place] [address], [facility] [address] [place] [address] * Magnesium (11/01/2023 1:25 PM [facility]) Only the most recent of12 resultswithin the time period is included. Pathologist [facility] Magnesium, S 2.0 1.7 - 2.3 mg/dL 11/01/2023 3:49 PM [facility] DTL Blood (Blood, Venous) 11/01/2023 1:25 PM [facility] 11/01/2023 2:03 PM [facility] Cece Thornton P.A.-C., M.S. LAB BLOOD ADD-ON Performing Organization Address City/[facility]/ZIP Co de Phone Number [facility] [address] [place] [address], [facility] [address] [place] [address] * (ABNORMAL) Ferritin (11/01/2023 1:25 PM [facility]) Only the most recent of7 resultswithin the time period is included. Ferritin, S 10(L) 11 - 328 mcg/L 11/03/2023 11:37 AM [facility] DTL Blood 11/01/2023 1:25 PM [facility] 11/03/2023 10:45 AM [facility] Fede Palacios M.D. LAB BLOOD ADD-ON [facility] [address] [place] [address], [facility] DTL [facility] [address] [place] [address] * (ABNORMAL) Comprehensive Metabolic Panel (11/01/2023 1:25 PM [facility]) Only the most recent of3 resultswithin the time period is included. Potassium, S 4.5 3.6 - 5.2 mmol/L 11/01/2023 3:49 PM [facility] DTL Sodium, S 144 135 - 145 mmol/L 11/01/2023 3:49 PM [facility] DTL Chloride, S 108(H) 98 - 107 mmol/L 11/01/2023 3:49 PM [facility] DTL Bicarbonate, S 25 22 - 29 mmol/L 11/01/2023 3:49 PM [facility] DTL Anion Gap 11 7 - 15 11/01/2023 3:49 PM [facility] DTL BUN (Blood Urea Nitrogen), S 17 6 - 21 mg/dL 11/01/2023 3:49 PM [facility] DTL Creatinine 0.96 0.59 - 1.04 mg/dL 11/01/2023 3:49 PM [facility] DTL Estimated GFR (eGFR) 61 >=60 mL/min/BS A 11/01/2023 3:49 PM [facility] DTL Comment: Estimated GFR calculated using the 2020 CKD_EPI creatinine equation. Calcium, Total, S 9.6 8.8 - 10.2 mg/dL 11/01/2023 3:49 PM [facility] DTL Glucose, S 89 70 - 140 mg/dL 11/01/2023 3:49 PM [facility] DTL Protein, Total, S 6.8 6.3 - 7.9 g/dL 11/01/2023 3:49 PM [facility] DTL Albumin, S 4.3 3.5 - 5.0 g/dL 11/01/2023 3:49 PM [facility] DTL Aspartate Aminotransferase (AST), S 15 8 - 43 U/L 11/01/2023 3:49 PM [facility] DTL Alkaline Phosphatase, S 83 35 - 104 U/L 11/01/2023 3:49 PM [facility] DTL Alanine Aminotransferase (ALT), S 14 7 - 45 U/L 11/01/2023 3:49 PM [facility] DTL Bilirubin, Total, S 0.3 0.0 - 1.2 mg/dL 11/01/2023 3:49 PM [facility] DTL Blood (Blood, Venous) 11/01/2023 1:25 PM [facility] 11/01/2023 2:03 PM [facility] Ap Buckley M.D., Ph.D. LAB BLOOD AD D-ON [facility] [address] [place] [address], [place] DTL [facility] [address] [place] [address] * BI Breast Screening Bilateral with Tomosynthesis (08/23/2023 1:41 PM CDT) Only the most recent of6 resultswithin the time period is included. Anatomical Region Laterality Modality Breast, Breast Imaging RST L OS, Breast Imaging ARZ LOS, Breast Imaging FLA LOS Bilateral Mammography 08/23/2023 3:24 PM CDT Impressions 08/23/2023 3:36 PM CDT Negative. RECOMMENDATION: ??Annual Screening Mammogram ASSESSMENT: ??BI-RADS: 1: Negative. Narrative 08/23/2023 3:36 PM CDT EXAM: ??BI BREAST SCREENING BILATERAL WITH TOMOSYNTHESIS Current study was evaluated with a Computer Aided Detection (CAD) system. INDICATION: ??Screening mammogram. COMPARISON: ??Prior exam(s) were available and reviewed for comparison. DENSITY: ??b. There are scattered areas of fibroglandular density. FINDINGS: ??No mammographic findings of malignancy. Procedure Note Hansa Caballero D.O. - 08/23/2023 EXAM: BI BREAST SCREENING BILATERAL WITH TOMOSYNTHESIS Current study was evaluated with a Computer Aided Detection (CAD) system. INDICATION: Screening mammogram. COMPARISON: Prior exam(s) were available and reviewed for comparison. DENSITY: b. There are scattered areas of fibroglandular density. FINDINGS: No mammographic findings of malignancy. IMPRESSION: Negative. RECOMMENDATION: Annual Screening Mammogram ASSESSMENT: BI-RADS: 1: Negative. Emilia Lincoln M.D. IMG BI PROCEDURES * (ABNORMAL) Basic Metabolic Panel (07/21/2023 6:09 AM CDT) Only the most recent of17 resultswithin the time period is included. Potassium, S 4.0 3.6 - 5.2 mmol/L 07/21/2023 7:14 AM CDT DTL Sodium, S 144 135 - 145 mmol/L 07/21/2023 7:14 AM CDT DTL Chloride, S 110(H) 98 - 107 mmol/L 07/21/2023 7:14 AM CDT DTL Bicarbonate, S 23 22 - 29 mmol/L 07/21/2023 7:14 AM CDT DTL Anion Gap 11 7 - 15 07/21/2023 7:14 AM CDT DTL BUN (Blood Urea Nitrogen), S 15 6 - 21 mg/dL 07/21/2023 7:14 AM CDT DTL Creatinine 0.87 0.59 - 1.04 mg/dL 07/21/2023 7:14 AM CDT DTL Estimated GFR (eGFR) 69 >=60 mL/min/BSA 07/21/2023 7:14 AM CDT DTL Comment: Estimated GFR calculated using the 2020 CKD_EPI creatinine equation. Calcium, Total, S 9.3 8.8 - 10.2 mg/dL 07/21/2023 7:14 AM CDT DTL Glucose, S 95 70 - 140 mg/dL 07/21/2023 7:14 AM CDT DTL Blood (Blood, Venous) 07/21/2023 6:09 AM CDT 07/21/2023 6:56 AM CDT Cece Thornton P.A.-C., M.S. LAB BLOOD ADD-ON [facility] [address] [place] [address], [place] DTL [facility] [address] [place] [address] * HOLTER MONITOR - IN CLINIC RN TELEPHONE TRIAGE (04/08/2023 6:41 PM CDT) Only the most recent of8 resultswithin the time period is included. Min Heart Rate 52 bpm INFOB IONIC MOME Max Heart Rate 91 bpm INFOB IONIC MOME Mean Heart Rate 65 bpm INFOBIONIC MOME VE Total Beats 69 count INFOB IONIC MOME VE Percent Beats less than 1 percent INFOBIONIC MOME SVE Total Beats 215 count INFOBIONIC MOME SVE Percent Beats less than 1 percent INFOBIONIC MOME AF Count 0 count INFOBIONIC MOME AF Duration 0 duration INFOBION IC MOME AF Biggers 0 percent INFOBIONIC MOME Symptom Count 0 count INFOBI ONIC MOME 04/07/2023 3:23 PM CDT Narrative INFOBIONIC MOME - 04/13/2023 9:28 AM CDT 1. The basic rhythm was sinus rhythm. The total analyzed time was 23h 5m. The heart rate varied from 52 to 91 bpm. The average HR was 65 bpm. 2. Premature ventricular complexes were noted singly and in trigeminal patterns. There were 69 PVCs recorded with a PVC burden of less than 1%. 3. Premature supraventricular complexes were noted singly, paired, and in eleven atrial runs, lasting between 3-13 beats with a max heart rate of 133 BPM. There were 215 PACs recorded with a PAC burden of less than 1%. 4. The patient documented chest pain, sob, lightheaded, and dizziness with no events in which to correlate. Accounts Receivable Manager: Storm Cooper/ [id number] Procedure Note Aroldo Hickey M.D. - 04/13/2023 1. The basic rhythm was sinus rhythm. The total analyzed time was 23h 5m.The heart rate varied from 52 to 91 bpm. The average HR was 65 bpm. 2. Premature ventricular complexes were noted singly and in trigeminalpatterns. There were 69 PVCs recorded with a PVC burden of less than 1%. 3. Premature supraventricular complexes were noted singly, paired, and ineleven atrial runs, lasting between 3-13 beats with a max heart rate of133 BPM. There were 215 PACs recorded with a PAC burden of less than 1%. 4. The patient documented chest pain, sob, lightheaded, and dizzinesswith no events in which to correlate. Accounts Receivable Manager: Storm Cooper/ [id number] Ap Buckley M.D., Ph.D. CV CARDIAC S ERVICES PROCEDURES INFOBIONIC ANSHUL NA * BMD Bone Density Spine Hips (03/18/2023 10:47 AM CDT) Only the most recent of3 resultswithin the time period is included. Anatomical Region Laterality Modality Hip, Lumbar Spine, Nuclear M edicine RST LOS, Musculoskeletal ARZ LOS, Muskuloskeletal FLA LOS N/A Radio graphic Imaging 03/18/2023 11:0 4 AM CDT Impressions 03/18/2023 11:04 AM CDT Normal bone mineral density. Narrative 03/18/2023 11:04 AM CDT EXAM: ??BMD BONE DENSITY SPINE HIPS Bone Mineral Density (BMD) analysis performed on [employer] ([employer]: [place]) with serial number [id number]. ? FINDINGS: Left Hip: Femur Neck: BMD = 0.968 g/cm2 T-score = -0.5 ?Z-score = 1.4 Total Hip: BMD = 1.047 g/cm2 T-score = 0.3 ?Z-score = 2.1 Right Hip: Femur Neck: BMD = 0.936 g/cm2 T-score = -0.7 ?? Z-score = 1.2 Total Hip: BMD = 1.029 g/cm2 T-score = 0.2 ?Z-score = 1.9 Lumbar Spine: L1: BMD = 1.560 g/cm2 L2: BMD = 1.730 g/cm2 L3: BMD = 1.676 g/cm2 L4: BMD = 1.591 g/cm2 Total Lumbar Spine (L1-L4): BMD = 1.641 g/cm2 T-score = 3.8 ?Z-score = 5.6 ? Trabecular Bone Score: ??L1-L4: TBS = 1.406 < 1.23: low 1.23 -1.31: borderline ?? > 1.31: normal ? A low TBS has been associated with increased risk of fractures in certain populations. TBS should not be used alone to determine treatment recommendations. It can be used in conjunction with BMD and FRAX to inform management. Please note: A more comprehensive DXA report, including images and graphs, is available in IPLogicEAElevate HR. In the absence of other causes of low BMD or demonstrated skeletal fragility, osteoporosis may be diagnosed in post-menopausal women and men at or above age 50 when the T-score is at or below -2.5 as defined by the WHO. Low bone density is present at T-scores between -1 and - 2.5. The diagnosis in pre-menopausal women and men < age 50 can be based on low bone density or evidence of skeletal fragility in the appropriate clinical setting. Degenerative changes are present which may spuriously elevate the spine BMD measurement. Patient does not meet ISCD guidelines for FRAX calculations. (T-score) Procedure Note Ap Ness M.D. - 03/18/2023 EXAM: BMD BONE DENSITY SPINE HIPS Bone Mineral Density (BMD) analysis performed on [employer] ([employer]: [place])with serial number [id number]. FINDINGS: Left Hip: Femur Neck: BMD = 0.968 g/cm2 T-score = -0.5 Z-score = 1.4 Total Hip: BMD = 1.047 g/cm2 T-score = 0.3 Z-score = 2.1 Right Hip: Femur Neck: BMD = 0.936 g/cm2 T-score = -0.7 Z-score = 1.2 Total Hip: BMD = 1.029 g/cm2 T-score = 0.2 Z-score = 1.9 Lumbar Spine: L1: BMD = 1.560 g/cm2 L2: BMD = 1.730 g/cm2 L3: BMD = 1.676 g/cm2 L4: BMD = 1.591 g/cm2 Total Lumbar Spine (L1-L4): BMD = 1.641 g/cm2 T-score = 3.8 Z-score = 5.6 Trabecular Bone Score: L1-L4: TBS = 1.406 < 1.23: low 1.23 -1.31: borderline > 1.31: normal A low TBS has been associated with increased risk of fractures in certainpopulations. TBS should not be used alone to determine treatment recommendations. It can be usedin conjunction with BMD and FRAX to inform management. Please note: A more comprehensive DXA report, including images and graphs,is available in QREADS. In the absence of other causes of low BMD or demonstrated skeletalfragility, osteoporosis may be diagnosed in post-menopausal women and men at or above age 50 when theT-score is at or below -2.5 as defined by the WHO. Low bone density is present at T-scores between -1and - 2.5. The diagnosis in pre-menopausal women and men < age 50 can be based on low bone density orevidence of skeletal fragility in the appropriate clinical setting. Degenerative changes are present which may spuriously elevate the spineBMD measurement. Patient does not meet ISCD guidelines for FRAX calculations. (T-score) IMPRESSION: Normal bone mineral density. Jose A OCHOA DXA PROCEDURES * ECHO STRESS 2D WITH COLOR, LIMITED DOPPLER AND CONTRAST (11/12/2022 3:12 PM COOK STARCH) Ejection Fraction 64 MC CV EIMS Mid-Ascending Aorta 38 MC CV EIMS LV Mass Index 76 MC CV EIMS LV End-Diastolic Diameter 44 MC CV EIMS LV End-Systolic Diameter 28 MC CV EIMS MV E Velocity 0.80 MC CV EIMS MV A Velocity 0.40 MC CV EIMS MV E/A 2 MC CV EIMS MV e' Velocity Medial 0.05 MC CV EIMS MV E/e' Medial 16 MC CV EIMS LV Interventricular Septal Wall Thickness 10 MC CV EIMS LV Posterior Wall Thickness 10 MC CV EIMS LV Relative Wall Thickness 45 MC CV EIMS TR Vmax 2.68 MC CV EIMS RA Pressure 5 MC CV EIMS RV Systolic Pressure 34 MC CV EIMS LA Volume Index 50 MC CV EIMS WMSI At Rest 1 MC CV EIMS WMSI At Peak Stress 1 MC CV EIMS Anatomical Region Laterality Modality Echocardiography 11/12/2022 1:38 PM [facility] STARCH Impressions 11/12/2022 4:22 PM COOK STARCH consistent with elevated left ventricular filling pressure at rest and with exercise. 6. Estimated right ventricular systolic pressure with stress was 59 mmHg, assuming RA pressure of 5 mmHg. 7. Findings consistent with exercise-induced pulmonary hypertension. 8. Findings consistent with normal lung aeration at rest and with exercise. 9. The baseline ECG demonstrated sinus rhythm intermixed with atrial fibrillation. 10. The patient remained in sinus rhythm for the majority of exercise and recovery. 11. The stress ECG was negative for ischemia. Findings STRESS TEST:The patient exercised for 6:41 min:sec on the Intentio protocol. The patient achieved a workload of 3.3 METS and 49% FAC. The test was terminated due to fatigue and dyspnea. A peak heart rate of 105 BPM was achieved (72% age- predicted maximal HR). Blood pressure at rest 122 mmHg/68 mmHg. Blood pressure with exercise 166 mmHg/64 mmHg. Normal blood pressure response [place]. [place] [id number]. Limited heart rate and double product response could reduce the sensitivity of the test. O2 sat at rest 98%, and with exercise 98%. The baseline ECG demonstrated sinus rhythm intermixed with atrial fibrillation. With stress, there were no S-T changes. VPC's ??present at stress. The patient remained in sinus rhythm for the majority of exercise and recovery. The stress ECG was negative for ischemia. Please see Nursing Notes for additional information. REST IMAGES: LEFT VENTRICLE:Normal left ventricular chamber size. Abnormal left ventricular geometry with ??concentric remodeling (increased wall thickness to cavity ratio). Calculated 2-D linear left ventricular ejection fraction 64%. No regional wall motion abnormalities. Grade 2/3 left ventricular diastolic dysfunction, consistent with mild-moderately elevated left ventricular filling pressure. RIGHT VENTRICLE:Normal right ventricular chamber size. Normal right ventricular systolic function. Estimated right ventricular systolic pressure 34 mmHg (right atrial pressure of 5 mmHg). ATRIA:Severely enlarged left atrial size. Left atrial volume index 50 ml/m2. Strain imaging examination performed to assess left atrial function. Global averaged left atrial longitudinal peak systolic strain is abnormal at 17.9% (normal is greater than 35%). Severely enlarged right atrial size by visual estimate. CARDIAC VALVES:Trileaflet aortic valve. Thickened aortic valve. Mild aortic valve regurgitation. Thickened mitral valve. Mild mitral valve regurgitation. Pulmonary valve not well visualized. Normal tricuspid valve. Mild tricuspid valve regurgitation. OTHER ECHO FINDINGS:Normal mid ascending aorta diameter of 38 mm. Upper limit of normal of the mid ascending aorta, for age, sex and BSA is 40 mm. No intracardiac mass or thrombus identified. No ??pericardial effusion. LUNG FINDINGS:Lung ultrasound performed. Findings consistent with normal lung aeration at rest and with exercise. Attempts were made to optimize the echocardiographic images and two or more left ventricular segments were not visualized adequately to evaluate cardiac structure. The patient's current allergies and medications have been screened. Intravenous Lumason ultrasound enhancement agent(s) administered to enhance endocardial border definition. Imaging enhancement agent administered per Echocardiography Contrast Administration Protocol Reference Document [id number]. Patient met an inclusion criterion and did not have contraindications in screening sections. For the complete report, see the Order-Level Documents. Narrative 11/12/2022 4:22 PM C[facility] STARCH For the complete report, see the Order-Level Documents. Hemodynamics Heart Rate: 66 BPM Blood Pressure: 122 / 68 mmHg ECG: Intermittent sinus rhythm and atrial fibrillation Final Impressions 1. Exercise echocardiogram negative for myocardial ischemia at the workload achieved. 2. The patient's exercise capacity was limited, the patient achieved a workload of 3.3 METS and 49% FAC. 3. Limited heart rate and double product response could reduce the sensitivity of the test. 4. Ejection fraction response from 64% at rest to 70% at peak stress, left ventricular end-systolic volume decreased with stress. 5. Procedure Note Robin Sanchez M.D. - 11/12/2022 For the complete report, see the Order-Level Documents. Hemodynamics Heart Rate: 66 BPM Blood Pressure: 122 / 68 mmHg ECG: Intermittent sinus rhythm and atrial fibrillation Final Impressions 1. Exercise echocardiogram negative for myocardial ischemia at theworkload achieved. 2. The patient's exercise capacity was limited, the patient achieved aworkload of 3.3 METS and 49% FAC. 3. Limited heart rate and double product response could reduce thesensitivity of the test. 4. Ejection fraction response from 64% at rest to 70% at peak stress, leftventricular end-systolic volume decreased with stress. 5. Findings consistent with elevated left ventricular filling pressure atrest and with exercise. 6. Estimated right ventricular systolic pressure with stress was 59 mmHg,assuming RA pressure of 5 mmHg. 7. Findings consistent with exercise-induced pulmonary hypertension. 8. Findings consistent with normal lung aeration at rest and withexercise. 9. The baseline ECG demonstrated sinus rhythm intermixed with atrialfibrillation. 10. The patient remained in sinus rhythm for the majority of exercise andrecovery. 11. The stress ECG was negative for ischemia. Findings STRESS TEST:The patient exercised for 6:41 min:sec on the Rypple. The patient achieved a workload of 3.3 METS and 49% FAC. Thetest was terminated due to fatigue and dyspnea. A peak heart rate of 105BPM was achieved (72% age-predicted maximal HR). Blood pressure at [id number] mmHg/68 mmHg. Blood pressure with exercise 166 mmHg/64 mmHg. Normalblood pressure response to exercise. Peak double product obtained [id number]. Limited heart rate and double product response could reduce thesensitivity of the test. O2 sat at rest 98%, and with exercise 98%. Thebaseline ECG demonstrated sinus rhythm intermixed with atrialfibrillation. With stress, there were no S-T changes. VPC's present atstress. The patient remained in sinus rhythm for the majority of exerciseand recovery. The stress ECG was negative for ischemia. Please see NursingNotes for additional information. REST IMAGES: LEFT VENTRICLE:Normal left ventricular chamber size. Abnormal leftventricular geometry with concentric remodeling (increased wall thicknessto cavity ratio). Calculated 2-D linear left ventricular ejection [id number]%. No regional wall motion abnormalities. Grade 2/3 left ventriculardiastolic dysfunction, consistent with mild-moderately elevated leftventricular filling pressure. RIGHT VENTRICLE:Normal right ventricular chamber size. Normal rightventricular systolic function. Estimated right ventricular systolicpressure 34 mmHg (right atrial pressure of 5 mmHg). ATRIA:Severely enlarged left atrial size. Left atrial volume index 50ml/m2. Strain imaging examination performed to assess left atrialfunction. Global averaged left atrial longitudinal peak systolic strain isabnormal at 17.9% (normal is greater than 35%). Severely enlarged rightatrial size by visual estimate. CARDIAC VALVES:Trileaflet aortic valve. Thickened aortic valve. Mildaortic valve regurgitation. Thickened mitral valve. Mild mitral valveregurgitation. Pulmonary valve not well visualized. Normal tricuspidvalve. Mild tricuspid valve regurgitation. OTHER ECHO FINDINGS:Normal mid ascending aorta diameter of 38 mm. Upperlimit of normal of the mid ascending aorta, for age, sex and BSA is 40 mm.No intracardiac mass or thrombus identified. No pericardial effusion. LUNG FINDINGS:Lung ultrasound performed. Findings consistent with normallung aeration at rest and with exercise. Attempts were made to optimizethe echocardiographic images and two or more left ventricular segmentswere not visualized adequately to evaluate cardiac structure. Thepatient's current allergies and medications have been screened.Intravenous Lumason ultrasound enhancement agent(s) administered toenhance endocardial border definition. Imaging enhancement agentadministered per Echocardiography Contrast Administration ProtocolReference Document [id number]. Patient met an inclusion criterion and didnot have contraindications in screening sections. For the complete report, see the Order-Level Documents. Ap Buckley M.D., Ph.D. CV ECHO PROC EDURES * CBC without Differential (11/12/2022 9:07 AM [facility]) Only the most recent of9 resultswithin the time period is included. Hemoglobin 12.0 11.6 - 15.0 g/dL 11/12/2022 9:42 AM [facility] STARCH DTL Hematocrit 38.6 35.5 - 44.9 % 11/12/2022 9:42 AM [facility] STARCH DTL Erythrocytes 4.51 3.92 - 5.13 x10(12)/L 11/12/2022 9:42 AM [facility] STARCH DTL MCV 85.6 78.2 - 97.9 fL 11/12/2022 9:42 AM [facility] STARCH DTL RBC Distrib Width 15.9 12.2 - 16.1 % 11/12/2022 9:42 AM [facility] STARCH DTL Platelet Count 228 157 - 371 x10(9)/L 11/12/2022 9:42 AM [facility] ST[facility] DTL Leukocytes 5.5 3.4 - 9.6 x10(9)/L 11/12/2022 9:42 AM [facility] DTL Blood (Blood, Venous) 11/12/2022 9:07 AM [facility] ST[facility] 11/12/2022 9:31 AM [facility] Ap Buckley M.D., Ph.D. LAB BLOOD AD D-ON [facility] [address] [place] [address], [place] DTL [facility] [address] [place] [address] * CT Head without IV Contrast (08/09/2022 1:13 PM CDT) Only the most recent of4 resultswithin the time period is included. Anatomical Region Laterality Modality Head, Neuroradiology RST LOS , Neuroradiology ARZ LOS, Neuroradiology FLA LOS N/A Computed Tomography 08/09/2022 11:5 3 AM CDT Impressions 08/09/2022 1:34 PM CDT 1. No acute findings. 2. Leukoaraiosis. 3. Atrophy. vRad: ??Findings concordant with preliminary vRad report. Narrative 08/09/2022 1:34 PM CDT EXAM: CT HEAD WITHOUT IV CONTRAST COMPARISON: 07/10/2008 FINDINGS: Brain Parenchyma: Low attenuation changes are present in the periventricular white matter of both cerebral hemispheres. Ventricles and Sulci: ??There is diffuse cerebral and cerebellar volume loss with ventricular enlargement. Calvarium: No acute abnormalities. Paranasal Sinuses: Cyst or polyp in the left maxillary sinus anteriorly. Postsurgical changes both ocular lenses. Procedure Note Arnaud Doyle M.D. - 08/09/2022 EXAM: CT HEAD WITHOUT IV CONTRAST COMPARISON: 07/10/2008 FINDINGS: Brain Parenchyma: Low attenuation changes are present in theperiventricular white matter of both cerebral hemispheres. Ventricles and Sulci: There is diffuse cerebral and cerebellar volumeloss with ventricular enlargement. Calvarium: No acute abnormalities. Paranasal Sinuses: Cyst or polyp in the left maxillary sinus anteriorly. Postsurgical changes both ocular lenses. IMPRESSION: 1. No acute findings. 2. Leukoaraiosis. 3. Atrophy. vRad: Findings concordant with preliminary vRad report. Silvino Rowe M.D. [facility] CT PROCEDURES * Troponin T, 2H/6H, 5th Gen (06/06/2022 1:05 AM CDT) Only the most recent of2 resultswithin the time period is included. Troponin T, 2 hr, 5th gen 7 <=10 ng/L 06/06/2022 1:31 AM CDT STMA 2H Delta -2 ng/L 06/06/2022 1:31 AM CDT STMA 2H Delta Interp Not Changing 06/06/2022 1:31 AM CDT STMA Troponin T, 6 hr, 5th gen CANCELED ng/L 06/06/2022 1:31 AM CDT STMA Comment:Result canceled by hemanth dean. Blood (Blood, Venous) 06/06/2022 1:05 AM CDT 06/06/2022 1:11 AM CDT Narrative [facility] - 06/06/2022 1:31 AM CDT Specimen Information: Specimen ID: [id number] Specimen Type: Blood Specimen Collection Start Date: 06/06/2022 ??1:05 AM Specimen Received Date: 06/06/2022 ??1:11 AM Specimen ID: [id number] Specimen Type: Blood Specimen Collection Start Date: 06/06/2022 ??1:31 AM Specimen Received Date: 06/06/2022 ??1:31 AM Nadja Reed M.D. LAB BLOOD TROP ONIN Performing Organization Address City/[facility]/ZIP Co de Phone Number [facility] [address] [place] [address], [facility] [address] [place] [address] * Troponin T, Baseline, 5th gen (06/05/2022 7:49 PM CDT) Only the most recent of2 resultswithin the time period is included. Pathologist [facility] [place] Troponin T, Baseline, 5th gen 9 <=10 ng/L 06/05/2022 8:12 PM CDT STMA Blood (Blood, Venous) 06/05/2022 7:49 PM CDT 06/05/2022 7:55 PM CDT Nadja Reed M.D. LAB BLOOD TROP ONIN [facility] [address] [place] [address], [facility] [address] [place] [address] * Hepatic Function Panel (06/05/2022 7:49 PM CDT) Only the most recent of3 resultswithin the time period is included. Bilirubin, Total, S 0.7 <=1.2 mg/dL 06/05/2022 8:39 PM CDT DTL Bilirubin, Direct, S <0.2 0.0 - 0.3 mg/dL 06/05/2022 8:39 PM CDT DTL Aspartate Aminotransferase (AST), S 19 8 - 43 U/L 06/05/2022 8:39 PM CDT DTL Alanine Aminotransferase (ALT), S 12 7 - 45 U/L 06/05/2022 8:39 PM CDT DTL Alkaline Phosphatase, S 78 35 - 104 U/L 06/05/2022 8:39 PM CDT DTL Albumin, S 4.1 3.5 - 5.0 g/dL 06/05/2022 8:39 PM CDT DTL Protein, Total, S 6.8 6.3 - 7.9 g/dL 06/05/2022 8:39 PM CDT DTL Blood (Blood, Venous) 06/05/2022 7:49 PM CDT 06/05/2022 8:15 PM CDT Nadja Reed M.D. LAB BLOOD ADD- ON [facility] [address] [place] [address], [facility] DTL [facility] [address] [place] [address] * Lipase (06/05/2022 7:49 PM CDT) Only the most recent of3 resultswithin the time period is included. Lipase, S 32 13 - 60 U/L 06/05/2022 8: 39 PM CDT DTL Blood (Blood, Venous) 06/05/2022 7:49 PM CDT 06/05/2022 8:15 PM CDT Nadja Reed M.D. LAB BLOOD ADD- ON [facility] [address] [place] [address], [place] DTL [facility] [address] [place] [address] * Surgical Pathology (06/05/2022 11:15 AM CDT) 06/08/2022 9:17 AM CDT DTL Report electronically signed by Helder Bagley M.D. I verify that I have examined all relevant slides/materi als for the specimen(s) and rendered or confirmed the diagnosis. 06/08/2022 9:17 AM CDT DTL Gross Description A: ?? Received in formalin labeled with the patient's name, medical record number, and colon-polyp, ascending colon, transverse colon is a 1.3 x 1.3 x 0.1 cm pale horton-red irregular soft tissue. ??The specimen is bisected, one half of the specimen is serially sectioned and submitted entirely in cassette A1, the remaining half of the specimen is serially sectioned and submitted entirely in cassette A2. ??Additionall y received in the same container are three pale horton irregular soft tissues, measuring 0.3-0.7 cm in greatest dimension. The specimens are submitted en toto in cassette A3. ?? Grossed by KRISTOPHER. B: ?? Received in formalin labeled with the patient's name, medical record number, and colon-polyp, rectum is a 0.7 x 0.5 x 0.4 cm pale horton-red polypoid soft tissue. ??The specimen is inked at the resection margin bisected and submitted entirely in cassette B1. Grossed by KRISTOPHER. 06/08/2022 9:17 AM CDT DTL Interpretation FINAL DIAGNOSIS A. Colon, ascending colon, transverse colon, endoscopic biopsy: ??Fragments of tubular adenoma, low grade dysplasia. B. Colon, rectum, endoscopic polypectomy: ??Tubular adenoma, low grade dysplasia, completely excised. 06/08/2022 9:17 AM CDT DTL Polyp (Colon) 06/05/2022 11: 15 AM CDT Polyp (Colon) 06/05/2022 11: 33 AM CDT Vivian Guy M.D. LAB SURG PATH ORDER DAVID Performing Organization Address [facility] Co de Phone Number [facility] [address] [place] [address], [facility] DTL [facility] [address] [place] [address] * Colonoscopy-Gastroenterology Image Exam (06/05/2022 11:00 AM CDT) Only the most recent of4 resultswithin the time period is included. 06/05/2022 10:5 7 AM CDT Narrative [facility] - 06/05/2022 1:25 PM CDT This order has been created and auto-finalized to support the import of images acquired without order. The clinical documentation to support these images can be found on the encounter that produced images. Provider Not In System IMG NON RAD IMAGI NG PROCEDURES Performing Organization Address [facility] Co de Phone Number [facility] NA * Colonoscopy (06/05/2022 10:57 AM CDT) 06/05/2022 10:5 7 AM CDT Impressions [facility] - 06/05/2022 11:39 AM CDT Post-op Diagnoses: ? - Four 2 to 3 mm polyps in the rectum, in the transverse colon and in ? the ascending colon, removed with a cold snare. Resected and retrieved. ? - One diminutive polyp in the ascending colon, removed with a cold ? biopsy forceps. Resected and retrieved. Narrative [facility] - 06/05/2022 11:39 AM CDT Gonda 9 GI GI Patient Name: Alivia Coleman Date of : 1945 Age: 77 Gender: Female Procedure Date: 06/05/2022 Procedure: ? Colonoscopy Providers: ? Vivian Guy MD Referring Provider: ?Telly Hernandez Pre-op Diagnoses: ?Screening for colorectal malignant neoplasm Recommendation: ? - Await pathology results. ? - Repeat colonoscopy in 3 years for surveillance. ? - OK to restart coumadin tonight, all polyps well below 1 cm in size. Findings: ? The perianal and digital rectal examinations were normal. ? Three sessile polyps were found in the rectum, transverse colon and ? ascending colon. The polyps were 2 to 3 mm in size. These polyps were ? removed with a cold snare. Resection and retrieval were complete. ? A diminutive polyp was found in the ascending colon. The polyp was ? sessile. The polyp was removed with a cold biopsy forceps. Resection and ? retrieval were complete. ? A few small-mouthed diverticula were found in the sigmoid colon. Procedural Details: ? The patient was seen, evaluated, history reviewed, airway and heart-lung ? exams were performed by licensed provider and were satisfactory for ? planned level of sedation care. ? The risks, benefits and alternatives for the procedure and sedation were ? discussed and informed consent was obtained. A procedural pause was ? conducted in the presence of assisting personnel to verify the correct ? patient identity and procedure to be performed. Throughout the ? procedure, the patient's blood pressure, pulse, and oxygen saturations ? were monitored continuously. The Colonoscope was introduced under direct ? vision through the anus and advanced to the cecum, identified by ? appendiceal orifice and ileocecal valve. The colonoscopy was performed ? with ease. The patient tolerated the procedure well. The quality of the ? bowel preparation was evaluated using the BBPS (Molina Bowel Preparation ? Scale) with scores of: Right Colon = 3, Transverse Colon = 3 and Left ? Colon = 3 (entire mucosa seen well with no residual staining, small ? fragments of stool or opaque liquid). The total BBPS score equals 9. Estimated Blood Loss: ?Estimated blood loss: none. Complications: ? No immediate complications. Sedation: ? Moderate (conscious) sedation was administered by the endoscopy nurse ? and supervised by the endoscopist. The patient's oxygen saturation, ? heart rate, blood pressure and response to care were monitored. Total ? physician intraservice time was 24 minutes. Attending Participation: I personally performed the entire procedure. Vivian Guy MD 06/05/2022 11:39:14 AM This report has been signed electronically. Number of Addenda: 0 Telly Gaines M.D. GI PROCEDURE ORDER DAVID Performing Organization Address City/[facility] Co de Phone Number [facility] NA * INR, POCT (06/05/2022 10:28 AM CDT) Only the most recent of71 resultswithin the time period is included. INR, POCT, B 1.2 06/05/2022 10:32 AM CDT PCMO Comment: ----ADDITIONAL INFORMATION---- Standard intensity warfarin therapeutic range: 2.0 to 3.0 ?? High intensity warfarin therapeutic range: 2.5 to 3.5 Blood 06/05/2022 10:2 8 AM CDT 06/05/2022 10:33 AM CDT Unknown Provider LAB POCT ORDERABLES - DEVICE Performing Organization Address [facility] Co de Phone Number [facility] [address] PCMO [facility] POC [address] [place] [address] * Upper GI Endoscopy (04/02/2022 11:03 AM CDT) 04/02/2022 11:0 3 AM CDT Impressions HI CARTER - 04/02/2022 11:42 AM CDT Post-op Diagnoses: ? - Normal examined duodenum. ? - 5 cm hiatal hernia. ? - Erosive gastropathy with no bleeding and no stigmata of recent ? bleeding. ? - Esophagogastric landmarks identified. ? - LA Grade A esophagitis. ? - No specimens collected. Narrative DO PROVATION - 04/02/2022 11:42 AM CDT Mai 9 GI GI Patient Name: Alivia Coleman Date of : 1945 Age: 76 Gender: Female Procedure Date: 04/02/2022 Procedure: ? Upper GI endoscopy Providers: ? Ronaldo Hernandez MD Referring Provider: ?Telly Hernandez Pre-op Diagnoses: ?Suspected esophageal reflux Recommendation: ? - Return to referring physician as previously scheduled. Findings: ? The examined duodenum was normal. ? A 5 cm hiatal hernia was present. ? A single localized small erosion (Ulises erosion) with no bleeding and ? no stigmata of recent bleeding was found in the stomach at the level of ? the hiatus. ? Esophagogastric landmarks were identified: the Z-line was found at 35 ? cm, the upper extent of the gastric folds was found at 35 cm and the ? site of hiatal narrowing was found at 40 cm from the incisors. ? LA Grade A (one or more mucosal breaks less than 5 mm, not extending ? between tops of 2 mucosal folds) esophagitis was found at the ? gastroesophageal junction. Procedural Details: ? The patient was seen, evaluated, history reviewed, airway and heart-lung ? exams were performed by licensed provider and were satisfactory for ? planned level of sedation care. ? The risks, benefits and alternatives for the procedure and sedation were ? discussed and informed consent was obtained. A procedural pause was ? conducted in the presence of assisting personnel to verify the correct ? patient identity and procedure to be performed. Throughout the ? procedure, the patient's blood pressure, pulse, and oxygen saturations ? were monitored continuously. The Gastroscope was introduced under direct ? vision through the mouth, and advanced to the second part of duodenum. ? The upper GI endoscopy was accomplished without difficulty. The patient ? tolerated the procedure fairly well. Estimated Blood Loss: ?Estimated blood loss: none. Complications: ? No immediate complications. Estimated blood loss: ? None. Sedation: ? Moderate (conscious) sedation was administered by the endoscopy nurse ? and supervised by the endoscopist. The patient's oxygen saturation, ? heart rate, blood pressure and response to care were monitored. Total ? physician intraservice time was 10 minutes. Attending Participation: I personally performed the entire procedure. Ronaldo Hernandez MD 04/02/2022 11:42:10 AM This report has been signed electronically. Number of Addenda: 0 Telly Gaines M.D. GI PROCEDURE ORDER DAVID Performing Organization Address City/State/[facility] Co de Phone Number [facility] * SARS Coronavirus-2 RNA, V Asymptomatic (03/31/2022 9:53 AM CDT) Only the most recent of4 resultswithin the time period is included. SARS-CoV-2 Specimen Source Swab, Nasopharynx 03/31/2022 11:57 PM CDT MKTO SARS CoV-2 RNA, TMA Undetected Undetected 03/31/2022 11:57 PM CDT MKTO Comment: SARS-CoV-2 RNA absent. This result does not rule out COVID-19 in the patient, as the sensitivity of the test depends on the timing of the specimen collection and the quality of the specimen. Result should be correlated with patient's history and clinical presentation. ----ADDITIONAL INFORMATION---- This molecular amplification test was performed using the Aptima SARS-CoV-2 assay ([employer] on the Snehta System under emergency use authorization (EUA) by the U.S. Food and Drug Administration. Fact sheets for this EUA assay can be found at the following links: For Healthcare Providers: https://www.fda.gov/media/804574/download For Patients: https://www.fda.gov/media/237502/download Varies (Nasopharynx) 03/31/2022 9:53 AM CDT 03/31/2022 4:11 PM CDT Sameer Bowman D.O. LAB MICROBIOLOGY - GENERAL ORDERABLES Performing Organization Address City/[facility] Co de Phone Number [facility] [address] [place] [address], [facility] MKTO [facility] [place] [address] [place] [id number] * Streptococcus Group A, Molecular Detection, PCR, Throat (03/29/2022 10:18 AM CDT) Group A Streptococcus PCR, Throat Negative Negative 03/29/2022 11:01 AM CDT OW Varies (Throat) 03/29/2022 1 0:18 AM CDT 03/29/2022 10:34 AM CDT Dora Martinez APRN, C.N.P., D.N.P., M.S. N. LAB MICROBIOLOGY - GENERAL ORDERABLES Performing Organization Address City/[facility] Co de Phone Number [facility] [address] [place] [address], [facility] OWAT [facility] [place] [address] [place] [address] * SARS-CoV-2, Flu A/B, RNA, Varies (03/22/2022 11:33 AM CDT) Influenza A RNA, TMA Undetected Undetected 03/23/2022 1:53 AM CDT MKTO Comment:Influenza A RNA abse nt. Influenza B RNA, TMA Undetected Undetected 03/23/2022 1:53 AM CDT MKTO Comment:Influenza B RNA abse nt. SARS CoV-2 RNA, TMA Undetected Undetected 03/23/2022 1:53 AM CDT MKTO Comment: SARS-CoV-2 RNA absent. This result does not rule out COVID-19 in the patient, as the sensitivity of the test depends on the timing of the specimen collection and the quality of the specimen. Result should be correlated with patient's history and clinical presentation. SARS-CoV-2, Flu A/B Source Swab, Nasopharynx 03/23/2022 1:53 AM CDT VERENA Comment: ----ADDITIONAL INFORMATION---- This molecular amplification test was performed using the Aptima SARS-CoV-2/Flu assay ([employer] on the Snehta System under emergency use authorization (EUA) by the U.S. Food and Drug Administration. Fact sheets for this EUA assay can be found at the following links: For Healthcare Providers: https://www.fda.gov/media/577738/download For Patients: https://www.fda.gov/media/591473/download Varies (Nasopharynx) 03/22/2022 11:33 AM CDT 03/22/2022 5:21 PM CDT Adarsh Ramirez M.D., M.B.A. LAB MICROBI OLOGY - GENERAL ORDERABLES [facility] [address] [place] [address], [facility] [place] [address] * DX Knee Right Standing Right 3 Views (03/02/2022 7:36 AM CDT) Anatomical Region Laterality Modality Lower Extremity, Knee, Muscu loskeletal RST LOS, Musculoskeletal ARZ LOS, Muskuloskeletal FLA LOS Right Digit al Radiography 03/02/2022 7:45 AM CDT Impressions 03/02/2022 7:46 AM CDT Moderately advanced lateral and moderate medial compartment narrowing right knee. Small to moderate size effusion. Loose bodies. Lateral tibial subluxation. Patellofemoral arthritis. Left TKA with lateral patellar tilt. Narrative 03/02/2022 7:46 AM CDT EXAM: ??DX KNEE RIGHT STANDING RIGHT 3 VIEWS Procedure Note Cristobal Olson M.D. - 03/02/2022 EXAM: DX KNEE RIGHT STANDING RIGHT 3 VIEWS IMPRESSION: Moderately advanced lateral and moderate medial compartment narrowingright knee. Small to moderate size effusion. Loose bodies. Lateral tibial subluxation.Patellofemoral arthritis. Left TKA with lateral patellar tilt. Storm Iqbal P.A.-C., M.S. IMG DIAGNOSTIC IMAGING PROCEDURES * DX KNEE RIGHT STANDING RIGHT 3 VIEWS-Orthopedic Surgery Image Exam (03/02/2022 7:30 AM CDT) Only the most recent of3 resultswithin the time period is included. Narrative IIMS - 05/14/2022 10:31 AM CDT This order has been created and auto-finalized to support the import of images acquired without order. The clinical documentation to support these images can be found on the encounter that produced images. Provider Not In System IMG NON RAD IMAGI NG PROCEDURES IIFL NA * BI Breast Diagnostic Right with Tomosynthesis (07/14/2021 1:26 PM CDT) Anatomical Region Laterality Modality Breast, Breast Imaging RST L OS, Breast Imaging ARZ LOS, Breast Imaging FLA LOS Right Mammography 07/14/2021 1:58 PM CDT Impressions 07/14/2021 2:17 PM CDT Focal asymmetry in the upper outer right breast, anterior depth, is considered benign given stability over multiple prior exams. RECOMMENDATION: ??Annual Screening Mammogram ASSESSMENT: ??BI-RADS: 2: Benign. Narrative 07/14/2021 2:17 PM CDT EXAM: ??BI BREAST DIAGNOSTIC RIGHT WITH TOMOSYNTHESIS INDICATION: ??Right breast focal asymmetry identified on recent screening mammogram. COMPARISON: ??Prior exam(s) were available and reviewed for comparison. DENSITY: ??b. There are scattered areas of fibroglandular density. FINDINGS: ??Diagnostic images of the right breast demonstrate a focal asymmetry in the upper outer right breast, anterior depth. The mass is less apparent and with the benefit of these additional views has been present on prior examination dating back to at least 2017. The mass is stable to slightly smaller in size, consistent with a benign process. No suspicious mammographic findings in the right breast. Procedure Note Sanjuana Brizuela M.D. - 07/14/2021 EXAM: BI BREAST DIAGNOSTIC RIGHT WITH TOMOSYNTHESIS INDICATION: Right breast focal asymmetry identified on recent screening mammogram. COMPARISON: Prior exam(s) were available and reviewed for comparison. DENSITY: b. There are scattered areas of fibroglandular density. FINDINGS: Diagnostic images of the right breast demonstrate a focalasymmetry in the upper outer right breast, anterior depth. The mass is less apparentand with the benefit of these additional views has been present on priorexamination dating back to at least 2017. The mass is stable to slightly smaller insize, consistent with a benign process. No suspicious mammographic findings inthe right breast. IMPRESSION: Focal asymmetry in the upper outer right breast, anterior depth, is considered benign given stability over multiple prior exams. RECOMMENDATION: Annual Screening Mammogram ASSESSMENT: BI-RADS: 2: Benign. Telly Gaines M.D. IMG BI PROCEDURES * MO ARTHCS ASP/INJ MJR JT WO US (12/05/2020 8:30 AM [facility]) Narrative MMODAL - 12/05/2020 8:30 AM [facility] Storm Iqbal P.A.-C. ? 12/05/2020 11:47 AM Knee site- R knee joint : injection only Date/Time: 12/05/2020 8:30 AM Performed by: Storm Iqbal P.A.-C. Authorized by: Storm Iqbal P.A.-C. PROCEDURE DETAILS Procedure Location knee Knee site: R knee joint Site prep: patient was prepped and draped in usual sterile fashion ?? Procedural approach: anteromedial Procedure performed: injection only Needle gauge: 22 G Procedural Medication The following medications were administered at the target site(s) Local anesthetic: 7 mL bupivacaine PF 0.25 % (2.5 mg/mL) Corticosteroid: 120 mg methylPREDNISolone acetate 40 mg/mL CONSENT Consent obtained: written UNIVERSAL PROTOCOL All relevant documentation and testing were reviewed and available. All required blood products, implants, devices and or special equipment were made available as applicable. Pre-procedure verification was conducted and the correct site was marked if required. A fire risk assessment was done as applicable. The procedural time-out was conducted prior to performing the procedure and confirmed in a procedural pause. PRE-PROCEDURE DETAILS Procedure purpose: therapeutic Appropriate hand hygiene, gown, cap, mask, protective eyewear, sterile gloves, skin preparation, sterile drape, and strict aseptic technique were utilized as applicable for the procedure: yes ?? POST-PROCEDURE DETAILS Procedure completed successfully: yes Complications: no apparent complications ?? Post-procedure instructions: avoid submersion of procedure site for 48 hours and avoid strenuous activity for 2 days Discharge instructions: ice area as needed for comfort Storm Iqbal P.A.-C. M.S. PROCEDURE/MINA R SURGICAL ORDERABLES Performing Organization Address City/[facility]/ZIP Co de Phone Number MMODAL NA * (ABNORMAL) Acid-Base Balance (11/27/2020 9:26 AM [facility]) pH Venous 7.31(L) 7.32 - 7.43 pH 11/27/2020 9:58 AM [facility] METH pCO2 Venous 56(H) 41 - 51 mm Hg 11/27/2020 9:58 AM [facility] METH Standard Bicarbonate 25 21 - 25 mmol/L 11/27/2020 9:58 AM [facility] METH Sample Site, Venous Venous Stick 11/27/2020 9:58 AM [facility] METH Blood (Blood, Venous) 11/27/2020 9:26 AM [facility] 11/27/2020 9:53 AM [facility] Eli Patterson, B.Ch. LAB BLOOD NON ADD-ON Performing Organization Address City/[facility]/ZIP Co de Phone Number [facility] [address] [place] [address], [facility] METH [facility] [address] [place] [address] * Pulmonary Function Tests (11/26/2020 1:11 PM [facility]) VC MAX POST 2.41 L 11/26/2020 3:26 PM [facility] SU[facility] PostFVC 2.41 L 11/26/2020 3:26 PM [facility] SUITE PostFEV1 1.89 L 11/26/2020 3:26 PM [facility] SUITE FEV1/FVC POST 78.44 % 11/26/2020 3:26 PM [facility] SU[facility] FEF 25-75 % POST 1.68 L/s 11/26/2020 3:26 PM [facility] SU[facility] PEF POST 6.04 L/s 11/26/2020 3:26 PM [facility] SUITE FET POST 8.61 sec 11/26/2020 3:26 PM [facility] DLCO SINGLE BREATH POST 12.75 ml/(min*mm Hg) 11/26/2020 3:26 PM [facility] SINGLE BREATH POST 4.32 L 11/26/2020 3:26 PM [facility] SU[facility] H4TvkEiwd 96.00 % 11/26/2020 3:26 PM [facility] PulseRest 60.00 1/min 11/26/2020 3:26 PM [facility] TLC POST 4.44 L 11/26/2020 3:26 PM [facility] VC POST 2.44 L 11/26/2020 3:26 PM [facility] SUITE FRCPLETH POST 2.37 L 11/26/2020 3:26 PM [facility] SU[facility] RV 2.01 L 11/26/2020 3:26 PM [facility] RV % TLC POST 45.18 % 11/26/2020 3:26 PM [facility] VC MAX PRE 2.25 L 11/26/2020 3:26 PM [facility] FVC 2.25 L 11/26/2020 3:26 PM [facility] SU[facility] FEV1 1.79 L 11/26/2020 3:26 PM [facility] FEV1/FVC 79.61 % 11/26/2020 3:26 PM [facility] SU[facility] EFA19-89% 1.63 L/s 11/26/2020 3:26 PM [facility] PEF PRE 5.97 L/s 11/26/2020 3:26 PM [facility] SU[facility] FET PRE 6.04 sec 11/26/2020 3:26 PM [facility] SUBSTANCE POST Albuterol 11/26/2020 3:26 PM [facility] DOSE POST 2 Puff 11/26/2020 3:26 PM [facility] SUITE % PRED VC MAX 91 % % 11/26/2020 3:26 PM [facility] SU[facility] FVC% 91 % % 11/26/2020 3:26 PM [facility] SU[facility] FEV1% 93 % % 11/26/2020 3:26 PM [facility] DO [facility] SUITE % PRED FEV1/FVC 102 % % 11/26/2020 3:26 PM [facility] SUITE % PRED FEF 25-75% 99 % % 11/26/2020 3:26 PM [facility]ANC[facility] SUITE % PRED PEF 118 % % 11/26/2020 3:26 PM [facility]ANC[facility] SU[facility] PRED TLC 4.47 11/26/2020 3:26 PM [facility] NANCY [facility] SU[facility] PRED RV 1.98 11/26/2020 3:26 PM [facility] NANCY [facility] SU[facility] PRED VC MAX 2.47 11/26/2020 3:26 PM [facility] NANCY [facility] SU[facility] PRED FVC 2.47 11/26/2020 3:26 PM [facility] NANCY [facility] SUITE PRED FEV 1 1.92 11/26/2020 3:26 PM [facility] NANCY [facility] SU[facility] PRED FEV1/FVC 78.1 11/26/2020 3:26 PM [facility] NANCY [facility] SU[facility] PRED FEF 25-75% 1.64 11/26/2020 3:26 PM [facility] NANCY [facility] SU[facility] PRED PEF 5.0 11/26/2020 3:26 PM [facility] NANC[facility] SU[facility] PRED DLCO 17.4 11/26/2020 3:26 PM [facility] NANCY [facility] SUITE 11/26/2020 1:11 PM [facility] Eli Patterson, B.Ch. PFT ORDER DAVID NANCY [facility] SUITE NA * PUL Exhaled Nitric Oxide (11/26/2020 12:59 PM [facility]) Exhaled NO Oral 12 MMODAL Parts per billion (ULN) 39 MMODAL Eli Patterson, B.Ch. PFT ORDER DAVID MMODAL NA * FL Esophagram Double Contrast (10/15/2020 2:41 PM [facility]) Anatomical Region Laterality Modality Gastro Intestinal, Abdominal RST LOS, Abdominal ARZ LOS, Abdominal FLA LOS Digital Radiography 10/15/2020 3:01 PM [facility] Impressions 10/15/2020 3:50 PM [facility] New paraesophageal hiatal hernia contains the gastric fundus. Narrative 10/15/2020 3:50 PM [facility] EXAM: ??FL ESOPHAGRAM DOUBLE CONTRAST COMPARISON: ??Esophagram 10/11/2012 FINDINGS: ??Double contrast esophagram. Normal caliber esophagus. Esophageal peristalsis is normal. No gastroesophageal reflux was witnessed. New paraesophageal hiatal hernia contains the gastric fundus. Previously reported sliding hiatal hernia is not confirmed today. Normal passage of 13 mm barium tablet. Procedure Note Telly Kennedy M.D. - 10/15/2020 EXAM: FL ESOPHAGRAM DOUBLE CONTRAST COMPARISON: Esophagram 10/11/2012 FINDINGS: Double contrast esophagram. Normal caliber esophagus.Esophageal peristalsis is normal. No gastroesophageal reflux was witnessed. New paraesophageal hiatal hernia contains the gastric fundus. Previouslyreported sliding hiatal hernia is not confirmed today. Normal passage of 13 mmbarium tablet. IMPRESSION: New paraesophageal hiatal hernia contains the gastric fundus. Eli Patterson, B.Ch. IMG FLUOR OSCOPY PROCEDURES * CT Chest without IV Contrast (10/11/2020 12:15 PM [facility]) Only the most recent of3 resultswithin the time period is included. Anatomical Region Laterality Modality Chest, Thoracic RST LOS, Tho racic ARZ LOS, Thoracic FLA LOS N/A Computed Tomography, Compute d Tomography 10/11/2020 1:04 PM [facility] Impressions 10/11/2020 1:27 PM [facility] 1. Patchy bilateral groundglass opacities are relatively diffuse. Nonspecific, although in the setting of recent COVID-19 infection, may represent resolving or persistent disease. No significant architectural distortion to suggest component of fibrosis or organization. Consider chest CT follow-up in 3 months to evaluate for potential resolution. 2. Small pulmonary nodules appear relatively similar dating back to 2013. Narrative 10/11/2020 1:27 PM [facility] EXAM: CT CHEST WITHOUT IV CONTRAST COMPARISON: 02/26/2015 CTA chest, 02/28/[address] and 05/10/[address] FINDINGS: Patchy bilateral groundglass opacities present throughout the lungs, not well appreciated on prior exams, although CTA studies were obtained at suspended respiration. Fine clustered nodularity in the right apex. Small pulmonary nodules appear unchanged from 02/28/2014, for instance posterolateral right upper lobe micronodule (less than 3 mm, series 3/image 157), left upper lobe 3 mm nodule (3/182) and left lower lobe 4 mm nodule (3/500). Bilateral calcified pulmonary granulomas. Expiratory imaging with minimal air trapping. Scarring or atelectasis along the bilateral medial lower lobes adjacent to moderate hiatal hernia. No thoracic lymphadenopathy by size criteria. Mild coronary atherosclerotic calcifications. Negative adrenal glands. Moderate hypertrophic degenerative thoracic spine. Mild thoracolumbar curve. Thank you for this consultation. Procedure Note Wicho Jain M.D. - 10/11/2020 EXAM: CT CHEST WITHOUT IV CONTRAST COMPARISON: 02/26/2015 CTA chest, 02/28/[address] and 05/10/2016abdominal CT. FINDINGS: Patchy bilateral groundglass opacities present throughout the lungs, notwell appreciated on prior exams, although CTA studies were obtained atsuspended respiration. Fine clustered nodularity in the right apex. Smallpulmonary nodules appear unchanged from 02/28/2014, for instance posterolateralright upper lobe micronodule (less than 3 mm, series 3/image 157), left upperlobe 3 mm nodule (3/182) and left lower lobe 4 mm nodule (3/500). Bilateralcalcified pulmonary granulomas. Expiratory imaging with minimal air trapping.Scarring or atelectasis along the bilateral medial lower lobes adjacent to moderatehiatal hernia. No thoracic lymphadenopathy by size criteria. Mild coronaryatherosclerotic calcifications. Negative adrenal glands. Moderate hypertrophicdegenerative thoracic spine. Mild thoracolumbar curve. Thank you for this consultation. IMPRESSION: 1. Patchy bilateral groundglass opacities are relatively diffuse.Nonspecific, although in the setting of recent COVID-19 infection, may representresolving or persistent disease. No significant architectural distortion to suggestcomponent of fibrosis or organization. Consider chest CT follow-up in 3 months toevaluate for potential resolution. 2. Small pulmonary nodules appear relatively similar dating back [id number]. Eli Patterson B.Ben. IMG CT MO OCEDURES * (ABNORMAL) Haptoglobin (09/09/2020 8:21 AM CDT) Haptoglobin, S 303(H) 30 - 200 mg/dL 09/09/2020 10:35 PM CDT [facility] Blood 09/09/2020 8:21 AM CDT 09/09/2020 2:40 PM CDT Kanchan Varela P.A.-C., M.S. LAB BLOOD A DD-ON Performing Organization Address City/[facility]/ZIP Co de Phone Number [facility] [address] [place], [place] [id number] [place] [address] Dept. of Laboratory Medicine and Pathology [address] [place] [address] * Morphology Evaluation (Special Smear) (09/09/2020 12:22 AM CDT) Neutrophilic Segs and Bands 62 50 - 75 % 09/09/2020 3:43 AM CDT DHPM Lymphocytes 26 18 - 42 % 09/09/2020 3:43 AM CDT DHPM Monocytes 10 2 - 11 % 09/09/2020 3:43 AM CDT DHPM Eosinophils 2 1 - 3 % 09/09/2020 3:43 AM CDT DHPM Interpretation SeeComment 09/09/2020 3:43 AM CDT DHPM Comment:Peripheral blood sme ar reviewed; no diagnostic abnormalities are seen. Reviewed by: Tech 09/09/2020 3:43 AM CDT DHPM Blood (Blood, Venous) 09/09/2020 12:22 AM CDT 09/09/2020 12:57 AM CDT Kanchan Varela P.A.-C., M.S. LAB BLOOD A DD-ON [facility] [address] [place] [address] * D-Dimer (09/09/2020 12:22 AM CDT) Only the most recent of3 resultswithin the time period is included. D-Dimer, P <220 <=500 ng/mL FEU 09/09/2020 2:03 AM CDT DTL Comment: ----ADDITIONAL INFORMATION---- D-dimer values less than or equal to 500 ng/mL fibrinogen equivalent units (FEU) may be used in conjunction with clinical pre-test probability to exclude deep vein thrombosis (DVT) and/or pulmonary embolism (PE). Blood (Blood, Venous) 09/09/2020 12:22 AM CDT 09/09/2020 12:57 AM CDT Kanchan Varela P.A.-C., M.S. LAB BLOOD A DD-ON Performing Organization Address [facility] Co de Phone Number [facility] [address] [place] [address] * (ABNORMAL) CRP (C-Reactive Protein) (09/09/2020 12:22 AM CDT) Only the most recent of3 resultswithin the time period is included. C-Reactive Protein (CRP), S 54.0(H) <=8.0 mg/L 09/09/2020 1:27 AM CDT DTL Blood (Blood, Venous) 09/09/2020 12:22 AM CDT 09/09/2020 1:13 AM CDT Kanchan Varela P.A.-C., M.S. LAB BLOOD A DD-ON Performing Organization Address [facility] Co de Phone Number [facility] [address] DTL [facility] 200 [place] [address] * (ABNORMAL) LD (Lactate Dehydrogenase) (09/09/2020 12:22 AM CDT) [facility] LD 268(H) 122 - 222 U/L 09/09/2020 1:27 AM CDT DTL Blood (Blood, Venous) 09/09/2020 12:22 AM CDT 09/09/2020 1:13 AM CDT Kanchan Varela P.A.-C., M.S. LAB BLOOD N ON ADD-ON Performing Organization Address City/[facility]/ZIP Co de Phone Number [facility] [address] [facility] 200 [place] [address] * (ABNORMAL) Soluble Transferrin Receptor (sTfR) (09/09/2020 12:14 AM CDT) [facility] Soluble Transferrin Receptor (sTfR) 5.3(H) 1.8 - 4.6 mg/L 09/09/2020 12:27 PM CDT DTL Comment: ----ADDITIONAL INFORMATION---- It is reported that Americans may have slightly higher values. Blood (Blood, Venous) 09/09/2020 12:14 AM CDT 09/09/2020 11:43 AM CDT Kanchan Varela P.A.-C., M.S. LAB BLOOD A DD-ON [facility] [address] [facility] [facility] [place] [address] [place] [address] * Reticulocytes (09/08/2020 8:02 AM CDT) [facility] Reticulocytes, B 0.87 0.60 - 2.71 % 09/08/2020 3:47 PM CDT DTL Absolute Reticulocyte 31.1 30.4 - 110.9 x10(9)/L 09/08/2020 3:47 PM CDT DTL Blood (Blood, Venous) 09/08/2020 8:02 AM CDT 09/08/2020 3:36 PM CDT Kanchan Varela P.A.-C., M.S. LAB BLOOD A DD-ON Performing Organization Address [facility] Co de Phone Number [facility] [address] [facility] [facility] [place] [address] [place] [address] * SARS-CoV-2 Total Antibody, Serum (09/08/2020 3:31 AM CDT) [facility] SARS-CoV-2 Nucleocapsid Total Ab, S Negative Negative 09/08/2020 4:47 AM CDT DTL Comment: No antibodies to SARS-CoV-2 detected. Negative results may occur in serum collected too soon following infection or in immunosuppressed patients. Follow-up testing with a molecular test is recommended in symptomatic patients. This test should not be used to exclude active/recent COVID-19. ----ADDITIONAL INFORMATION---- Testing was performed using the [employer] [id number] Reagent assay from [employer], which has received Emergency Use Authorization(EUA) by the U.S. Food and Drug Administration. Fact sheets for this Emergency Use Authorization (EUA) assay can be found at the following links: For Healthcare Providers: https://www.fda.gov/media/681459/download For Patients: https://www.fda.gov/media/776595/download Blood (Blood, Venous) 09/08/2020 3:31 AM CDT 09/08/2020 4:13 AM CDT Lesli Rider M.D., Ph.D. LAB MICR OBIOLOGY - BLOOD ORDERABLES Performing Organization Address City/[facility]/ZIP Co de Phone Number [facility] [address] [facility] [facility] [place] [address] [place] [address] * (ABNORMAL) SARS Coronavirus 2, Molecular Detection, PCR (TEST CAR DRIVER) Symptomatic (09/08/2020 3:14 AM CDT) COVID-19, PCR Detected( C) Undetected 09/08/2020 11:11 AM CDT DTL Comment: SARS-CoV-2 RNA present. ----ADDITIONAL INFORMATION---- This test has received Emergency Use Authorization (EUA) by the U.S. Food and Drug Administration and is used per copra sampler's instructions. Performance characteristics were verified by [facility] in a manner consistent with CLIA requirements. Visit the CDC website: https://www.cdc.gov/coronavirus/ for the most recent guidelines on Coronavirus testing. Fact Sheet for Healthcare Providers: https://www.fda.gov/media/277854/download Fact Sheet for Patients: https://www.fda.gov/media/512291/download Varies (Nasopharynx) 09/08/2020 3:14 AM CDT 09/08/2020 3:54 AM CDT Lesli Rider M.D., Ph.D. LAB MICR OBIOLOGY - GENERAL ORDERABLES [facility] 200 [place] [address], [facility] [address] [address] * DX Chest Portable 1 View (09/08/2020 1:34 AM CDT) Only the most recent of3 resultswithin the time period is included. Anatomical Region Laterality Modality Chest, Thoracic RST LOS, Tho racic ARZ LOS, Thoracic FLA LOS N/A Digital Radiography 09/08/2020 2:29 AM CDT Impressions 09/08/2020 7:14 AM CDT No significant change from 08/30/2020. No focal consolidations, pleural effusions, or pneumothorax. Moderate hiatal hernia. Deformity distal right clavicle, likely posttraumatic. Narrative 09/08/2020 7:14 AM CDT EXAM: ??DX CHEST PORTABLE 1 VIEW Procedure Note Froemming, Ronny T, M.D. - 09/08/2020 EXAM: DX CHEST PORTABLE 1 VIEW IMPRESSION: No significant change from 08/30/2020. No focal consolidations, pleural effusions, or pneumothorax. Moderate hiatal hernia. Deformitydistal right clavicle, likely posttraumatic. Jeffrey Castillo M.D. IMJanet DIAGNOSTIC IMAG ING PROCEDURES * (ABNORMAL) Venous Blood Gas and Electrolytes CG8+, POCT (09/08/2020 1:11 AM CDT) Sample Site, POCT Venstick 09/08/2020 1:20 AM CDT PCSM Comment: ----ADDITIONAL INFORMATION---- Performed at the Point of Care pH, Venous, POCT, B 7.44(H) 7.32 - 7.43 09/08/2020 1:20 AM CDT PCSM Comment: ----ADDITIONAL INFORMATION---- Performed at the Point of Care pCO2, Venous, POCT, B 38(L) 41 - 51 mm Hg 09/08/2020 1:20 AM CDT PCSM Comment: ----ADDITIONAL INFORMATION---- Performed at the Point of Care pO2, Venous, POCT, B 34 Not Applicable mm Hg 09/08/2020 1:20 AM CDT PCSM Comment: ----ADDITIONAL INFORMATION---- Performed at the Point of Care Base Excess, Venous, POCT, B 1 Not Applicable mmol/L 09/08/2020 1:20 AM CDT PCSM Comment: ----ADDITIONAL INFORMATION---- Performed at the Point of Care HCO3, Venous, POCT, B 25 Not Applicable mmol/L 09/08/2020 1:20 AM CDT PCSM Comment: ----ADDITIONAL INFORMATION---- Performed at the Point of Care Sodium, POCT, B 140 135 - 145 mmol/L 09/08/2020 1:20 AM CDT PCSM Comment: ----ADDITIONAL INFORMATION---- Performed at the Point of Care Potassium, POCT, B 3.0(L) 3.6 - 5.2 mmol/L 09/08/2020 1:20 AM CDT PCSM Comment: ----ADDITIONAL INFORMATION---- Performed at the Point of Care Calcium, Ionized, POCT, B 4.70 4.65 - 5.30 mg/dL 09/08/2020 1:20 AM CDT PCSM Comment: ----ADDITIONAL INFORMATION---- Performed at the Point of Care Glucose, POCT, B 112 70 - 140 mg/dL 09/08/2020 1:20 AM CDT PCSM Comment: ----ADDITIONAL INFORMATION---- Performed at the Point of Care Hematocrit, POCT, B 29.0(L) 35.5 - 44.9 % 09/08/2020 1:20 AM CDT PCSM Comment: ----ADDITIONAL INFORMATION---- Performed at the Point of Care Blood 09/08/2020 1:11 AM CDT 09/08/2020 1:20 AM CDT Unknown Provider LAB POCT ORDERABLES - DEVICE Performing Organization Address [facility]/ZIP Co de Phone Number POC [facility] [address] [place] [address], [facility] PCSM [facility] POC [address] [place] [address] * Venous Blood Gas and Electrolytes, POCT (09/08/2020 1:09 AM CDT) [facility] ABG and Lytes, POCT, B Collected DEFAULT 09/08/2020 1:09 AM CDT SMLX Blood (Other, Specify in Comments) 09/08/2020 1:09 AM CDT 09/08/2020 1:09 AM CDT Jeffrey Castillo M.D. LAB POCT ORDERABLES - DEVICE Performing Organization Address [facility]/ZIP Co de Phone Number [facility] [address] [place] [address], [facility] SMLX [facility] 200 [place] [address] * Patient Status (08/30/2020 10:24 AM CDT) Pathologist [facility] FIO2 0.21 0.21=AIR 08/30/2020 10:35 AM CDT STMA Spont. breaths/min 16 08/30/2020 10:35 AM CDT STMA Blood 08/30/2020 10:2 4 AM CDT 08/30/2020 10:35 AM CDT Ap Laws M.D. LAB BLOOD NON ADD- ON Performing Organization Address [facility] Co de Phone Number [facility] [address] [place] [address], [facility] [address] [place] [address] * (ABNORMAL) Blood Gas without Coox, Venous (08/30/2020 10:24 AM CDT) pO2, Venous 50 Not applicable mm Hg 08/30/2020 10:39 AM CDT STMA pCO2, Venous 40(L) 41 - 51 mm Hg 0 10:39 AM CDT STMA pH, Venous 7.43 7.32 - 7.43 pH 08/30/2020 10:39 AM CDT STMA Base Excess, Venous 2 Not applicable mmol/L 08/30/2020 10:39 AM CDT STMA HCO3, Venous 26 Not applicable mmol/L 08/30/2020 10:39 AM CDT STMA Sample Site, Venous Venipunct 08/30/2020 10:39 AM CDT STMA Blood (Blood, Venous) 08/30/2020 10:24 AM CDT 08/30/2020 10:35 AM CDT Ap Laws M.D. LAB BLOOD NON ADD- ON Performing Organization Address City/[facility]/ZIP Co de Phone Number [facility] [address] [place] [address], [facility] [address] [place] [address] * Bacteria / Rachna Culture, Blood #1 (08/30/2020 10:24 AM CDT) Only the most recent of2 resultswithin the time period is included. Bacteria/Kimberly da Culture, Blood No growth after 5 days of incubation. 09/04/2020 12:02 PM CDT DTL Blood (Blood, Peripheral Draw) 08/30/2020 10:24 AM CDT 08/30/2020 11:40 AM CDT Comment:Specimen Source Site : Blood Narrative [facility] - 09/04/2020 12:02 PM CDT Specimen Information: Specimen ID: [id number] Specimen Source: Blood, Peripheral Draw Specimen Comment: Specimen Source Site: Blood Specimen Collection Start Date: 08/30/2020 10:24 AM Specimen Received Date: 08/30/2020 11:40 AM Specimen ID: [id number] Specimen Source: Blood, Peripheral Draw Specimen Comment: Specimen Source Site: Blood Specimen Collection Start Date: 08/30/2020 10:24 AM Specimen Received Date: 08/30/2020 11:40 AM Specimen ID: [id number] Specimen Source: Blood, Peripheral Draw Specimen Comment: Specimen Source Site: Blood Specimen Collection Start Date: 08/30/2020 10:24 AM Specimen Received Date: 08/30/2020 11:40 AM Ap Laws M.D. LAB MICROBIOLOGY - GENERAL ORDERABLES [facility] [address] DTL [facility] [address] [place] [address] * Lactate, POCT (08/30/2020 10:20 AM CDT) Only the most recent of2 resultswithin the time period is included. Lactate, POCT Collected DEFAULT 08/30/2020 10:20 AM CDT SMLX Blood (Blood, Venous) 08/30/2020 10:20 AM CDT 08/30/2020 10:20 AM CDT Ap Laws M.D. LAB POCT ORDERABLE S - DEVICE [facility] [address] SMLX [facility] [address] [place] [address] * Cologuard (07/04/2020 3:30 PM CDT) [facility] Signature Result Negative Not Applicable 07/12/2020 4:31 PM CDT EXLI Comment: A negative result indicates a low likelihood that a colorectal cancer (CRC) or an advanced adenoma (adenomatous polyps with more advanced pre-malignant features) is present. The chance that a person with a negative Cologuard test has a colorectal cancer is less than 1 in 1500 (negative predictive value >99.9%) or has an advanced adenoma is less than 5.3% (negative predictive value 94.7%). These data are based on a prospective cross-sectional screening study of 10,000 individuals at average risk for colorectal cancer who were screened with both Cologuard and colonoscopy. (Ritesh Fang et al, N Engl J Med 2014;370(14):3591-1188) The normal value (reference range) for this assay is negative. COLOGUARD RE-SCREENING RECOMMENDATION: Periodic routine colorectal cancer screening is an important part of preventive healthcare for asymptomatic persons at average risk for colorectal cancer. Following a negative Cologuard result, the [place] [employer] and U.S. Multi-Society Task Force screening guidelines recommend a Cologuard re-screening interval of 3 years. References: [place] [employer] (ACS). Colorectal cancer prevention and early detection. [place], [place]: [place] [employer]; [updated 2015Mar 08]. https://www.cancer.org/cancer/komzf-keqqtc-clkzqd/detection- diagnosis-staging/acs-recommendations.html. Accessed July 15, 2018; Hao DK, Ludmila MAY, Ashley GuamanK, Colorectal Cancer Screening: Recommendations for Physicians and Patients from the U.S. Multi-Society Task Force on Colorectal Cancer Screening, Am J Gastroenterology 2017; 112:9108-2020. TEST TYPE: Composite algorithmic analysis of stool DNA-biomarkers with hemoglobin immunoassay. ??Quantitative values of individual biomarkers are not reportable and are not associated with individual biomarker result reference ranges. PRECAUTIONS AND LIMITATIONS: Cologuard is intended for colorectal cancer screening of adults of either sex, 45 years or older, who are at average-risk for colorectal cancer (CRC). Cologuard has been approved for use by the U.S. FDA. Cologuard may produce a false negative or false positive result. A negative Cologuard test result does not guarantee the absence of CRC or advanced adenoma (pre-cancer). Patients with a negative Cologuard test result should be advised to continue participating in a colorectal cancer screening program. The screening interval for Cologuard is currently recommended at an interval of every 3 years by the [place] [employer] and U.S. Multi-Society Task Force. A false positive result occurs when Cologuard produces a positive result, even though a colonoscopy may not find colorectal cancer or precancerous polyps. The performance of Cologuard has been established in a cross sectional study (i.e., single point in time) of average-risk adults aged 50-84. Cologuard performance in patients ages 45 to 49 years was estimated by sub-group analysis of near-age groups. Cologuard performance data in a 10,000 patient pivotal study using colonoscopy as the reference method can be accessed at the following location: www.[employer]/results. Additional description of the Cologuard test process, warnings and precautions can be found at www.cologuardtest.com. Rx only. Stool (Stool) 07/04/2020 3:3 0 PM CDT 07/06/2020 6:50 PM CDT Telly Gaines M.D. LAB BODY FLUIDS AN D STOOLS ORDERABLES Ahaali [address] [place] [address] EXLI 2d2c [address] [facility], [address] [place] [address] * (ABNORMAL) Urinalysis with Microscopic if Indicated (11/20/2019 10:58 AM [facility]) Source Midstream 11/20/2019 11:06 AM [facility] FMKE Clarity Clear Clear 11/20/2019 11:06 AM [facility] FMKE Color Yellow 11/20/2019 11:06 AM [facility] FMKE Comment: ----REFERENCE VALUE---- Colorless Yellow Rosenda Blood Trace(A) Negative 11/20/2019 11:06 AM [facility] FMKE Nitrite Negative Negative 11/20/2019 11:06 AM [facility]KE Leukocyte Esterase Trace(A) Negative 11/20/2019 11:06 AM [facility] Protein Negative mg/dL 11/20/2019 11:06 AM [facility] FMKE Comment: ----REFERENCE VALUE---- Negative Trace Glucose Negative Negative mg/dL 11/20/2019 11:06 AM [facility] FMKE Ketones, QI(U) Negative Negative mg/dL 11/20/2019 11:06 AM [facility] FMKE Bilirubin Negative Negative 11/20/2019 11:06 AM [facility] FM[facility] pH 7.0 5.0 - 8.0 11/20/2019 11:06 AM [facility] FMKE Specific [place] 1.010 1.001 - 1.035 11/20/2019 11:06 AM [facility] FMKE Urobilinogen 0.2 0.2 - 1.0 mg/dL 11/20/2019 11:06 AM [facility] FMKE Urine (Urine, Clean Catch) 11/20/2019 10:58 AM [facility] 11/20/2019 11:03 AM [facility] Jeffrey Garay P.A.-C., P.A. LAB URIN E ORDERABLES Performing Organization Address [facility] de Phone Number [facility] [address] [place] [address], [facility] FMKE [facility] [address] [place] [address] * Microscopic Manual (11/20/2019 10:58 AM [facility]) White Blood Cells Occ-3 /hpf 11/20/2019 2:35 PM [facility] FB60 Comment: ----REFERENCE VALUE---- Males: 0-3 Females: 0-10 Unknown: 0-10 Red Blood Cells None Seen 0 - 2 /hpf 11/20/2019 2:35 PM [facility] FB60 Squamous Cells Occ-3 /hpf 11/20/2019 2:35 PM [facility] FB60 Urine 11/20/2019 10:5 8 AM [facility] 11/20/2019 2:32 PM [facility] Jeffrey Garay P.A.-C., P.A. LAB URIN E ORDERABLES Performing Organization Address [facility] Co de Phone Number [facility] [address] [place] [address], [facility] FB60 [facility] [address] [place] [address] * (ABNORMAL) Bacterial Culture, Aerobic + Susc, Urine (11/20/2019 10:58 AM [facility]) [facility] Urine Culture Mixed osmel.(A) 11/21/2019 5:07 PM [facility] Urine (Urine, Midstream) 11/20/2019 10:58 AM [facility] 11/20/2019 7:22 PM [facility] Comment:Specimen Source Site : Urine Jeffrey Garay P.A.-C., P.A. LAB MICR OBIOLOGY - GENERAL ORDERABLES [facility] [address] [place] [address], [facility] [place] [address] [place] [address] * Type and Screen (with reflex Antibody ID) (07/03/2019 10:19 AM CDT) [facility] ABORh A Pos Not applicable 07/03/2019 11:36 AM CDT Antibody Screen Negative Negative 07/03/2019 11:47 AM CDT Type & Screen Expiration [id number] 07/03/2019 11:36 AM CDT Testing Location He DEFAULT 07/03/2019 10:40 AM CDT Blood (Blood, Venous) 07/03/2019 10:19 AM CDT 07/03/2019 10:40 AM CDT Storm Iqbal P.A.-C., M.S. LAB BLOOD BANK TEST ORDERABLES [facility] [address] [place] [address], [facility] * Staphylococcus aureus Detection by Rapid PCR (07/03/2019 10:16 AM CDT) [facility] Staphylococcus aureus PCR Specimen Source Swab, Nares 07/04/2019 11:43 AM CDT Result Negative Not Applicable 07/04/2019 11:43 AM CDT Comment: ----ADDITIONAL INFORMATION---- This test was developed and its performance characteristics determined by [facility] in a manner consistent with CLIA requirements. This test has not been cleared or approved by the U.S. Food and Drug Administration. Varies (Nares) 07/03/2019 10 :16 AM CDT 07/03/2019 11:14 AM CDT Storm Iqbal P.A.-C., M.S. LAB MICROBIOLO GY - GENERAL ORDERABLES [facility] [address] * BI Ultrasound Breast Focused Bilateral (05/16/2019 11:04 AM CDT) Anatomical Region Laterality Modality Breast, Breast Imaging RST L OS, Breast Imaging ARZ LOS, Breast Imaging FLA LOS Bilateral Ultrasound 05/16/2019 11:4 3 AM CDT Impressions 05/16/2019 11:44 AM CDT Nothing for malignancy. RECOMMENDATION: ??Clinical Exam These findings were discussed with the patient. She was encouraged to follow up with her clinical provider. ASSESSMENT: ??BI-RADS: 1: Negative. Narrative 05/16/2019 11:44 AM CDT EXAM: ??BI BREAST DIAGNOSTIC BILATERAL WITH TOMOSYNTHESIS, BI ULTRASOUND BREAST FOCUSED BILATERAL INDICATION: ??Breast pain COMPARISON: ??Prior exam(s) were available and reviewed for comparison. DENSITY: ??b. There are scattered areas of fibroglandular density. FINDINGS: ??Bilateral diagnostic mammogram shows no mammographic findings of malignancy. No significant interval change. A targeted ultrasound of the patient's areas of pain in the bilateral breasts demonstrates no concerning sonographic findings. A couple of normal-appearing intramammary lymph nodes are incidentally seen. Procedure Note Kim Abel M.D. - 05/16/2019 EXAM: BI BREAST DIAGNOSTIC BILATERAL WITH TOMOSYNTHESIS, BI ULTRASOUNDBREAST FOCUSED BILATERAL INDICATION: Breast pain COMPARISON: Prior exam(s) were available and reviewed for comparison. DENSITY: b. There are scattered areas of fibroglandular density. FINDINGS: Bilateral diagnostic mammogram shows no mammographic findingsof malignancy. No significant interval change. A targeted ultrasound of the patient's areas of pain in the bilateralbreasts demonstrates no concerning sonographic findings. A couple ofnormal-appearing intramammary lymph nodes are incidentally seen. IMPRESSION: Nothing for malignancy. RECOMMENDATION: Clinical Exam These findings were discussed with the patient. She was encouraged tofollow up with her clinical provider. ASSESSMENT: BI-RADS: 1: Negative. Oxana Guaman Paolo SHELTON C.N.P., M.S. IMG BI PROCEDURES * BI Breast Diagnostic Bilateral with Tomosynthesis (05/16/2019 10:08 AM CDT) Anatomical Region Laterality Modality Breast, Breast Imaging RST L OS, Breast Imaging ARZ LOS, Breast Imaging FLA LOS Bilateral Mammography 05/16/2019 11:4 3 AM CDT Impressions 05/16/2019 11:44 AM CDT Nothing for malignancy. RECOMMENDATION: ??Clinical Exam These findings were discussed with the patient. She was encouraged to follow up with her clinical provider. ASSESSMENT: ??BI-RADS: 1: Negative. Narrative 05/16/2019 11:44 AM CDT EXAM: ??BI BREAST DIAGNOSTIC BILATERAL WITH TOMOSYNTHESIS, BI ULTRASOUND BREAST FOCUSED BILATERAL INDICATION: ??Breast pain COMPARISON: ??Prior exam(s) were available and reviewed for comparison. DENSITY: ??b. There are scattered areas of fibroglandular density. FINDINGS: ??Bilateral diagnostic mammogram shows no mammographic findings of malignancy. No significant interval change. A targeted ultrasound of the patient's areas of pain in the bilateral breasts demonstrates no concerning sonographic findings. A couple of normal-appearing intramammary lymph nodes are incidentally seen. Procedure Note Kim Abel M.D. - 05/16/2019 EXAM: BI BREAST DIAGNOSTIC BILATERAL WITH TOMOSYNTHESIS, BI ULTRASOUNDBREAST FOCUSED BILATERAL INDICATION: Breast pain COMPARISON: Prior exam(s) were available and reviewed for comparison. DENSITY: b. There are scattered areas of fibroglandular density. FINDINGS: Bilateral diagnostic mammogram shows no mammographic findingsof malignancy. No significant interval change. A targeted ultrasound of the patient's areas of pain in the bilateralbreasts demonstrates no concerning sonographic findings. A couple ofnormal-appearing intramammary lymph nodes are incidentally seen. IMPRESSION: Nothing for malignancy. RECOMMENDATION: Clinical Exam These findings were discussed with the patient. She was encouraged tofollow up with her clinical provider. ASSESSMENT: BI-RADS: 1: Negative. Oxana Guaman Paolo SHELTON C.N.P., M.S. IMG BI PROCEDURES * (TTE) 2D ECHO DOPPLER COLOR (03/28/2019 2:49 PM CDT) Ejection Fraction 63 MC CV EIMS Sinus of Valsalva 36 MC CV EIMS Mid-Ascending Aorta 41 MC CV EIMS LV Mass Index 82 MC CV EIMS LV End-Diastolic Diameter 47 MC CV EIMS LV End-Systolic Diameter 30 MC CV EIMS MV E Velocity 0.9 MC CV EIMS MV A Velocity 0.6 MC CV EIMS MV E/A 1.50 MC CV EIMS MV e' Velocity Medial 0.04 MC CV EIMS MV e' Velocity Lateral 0.08 MC CV EIMS MV E/e' Medial 22.5 MC CV EIMS MV E/e' Lateral 11.3 MC CV EIMS Left ventricular stroke volume index 45 MC CV EIMS Cardiac Output 4.86 MC CV EIMS Cardiac Index 2.43 MC CV EIMS LV Interventricular Septal Wall Thickness 10 MC CV EIMS LV Posterior Wall Thickness 10 MC CV EIMS LV Relative Wall Thickness 43 MC CV EIMS TAPSE 28 MC CV EIMS Tricuspid Annular S? 0.13 MC CV EIMS TR Vmax 2.70 MC CV EIMS RA Pressure 5 MC CV EIMS RV Systolic Pressure 34 MC CV EIMS AV mean gradient 4 MC CV EIMS Aortic valve area 2.50 MC CV EIMS Aortic Valve Dimensionless Index 0.72 MC CV EIMS LA Volume Index 39 MC CV EIMS Anatomical Region Laterality Modality Echocardiography 03/28/2019 2:02 PM CDT Narrative 03/28/2019 3:47 PM CDT For the complete report, see the Order-Level Documents below. Final Impressions 1. Normal left ventricular chamber size; calculated ejection fraction 63%. 2. No regional wall motion abnormalities. 3. Grade 2/4 left ventricular diastolic dysfunction, consistent with moderately elevated left ventricular filling pressure. 4. Estimated right ventricular systolic pressure 34 mmHg (systolic blood pressure 148 mmHg). 5. Mild ascending aorta dilatation (diameter 41 mm at mid level). 6. No pericardial effusion. 7. Compared to the report of 07/13/2018 no significant change has occurred. Findings LEFT VENTRICLE: ??Normal left ventricular chamber size. ??Normal left ventricular wall thickness. Calculated left ventricular ejection fraction 63 %. ??No regional wall motion abnormalities. Grade 2/4 left ventricular diastolic dysfunction, consistent with moderately elevated left ventricular filling pressure. ??RIGHT VENTRICLE: ??Normal right ventricular size. ??Normal right ventricular systolic function. ??Estimated right ventricular systolic pressure 34 mmHg (systolic blood pressure 148 mmHg). ??ATRIA: ??Mild left atrial enlargement. ??Left atrial volume index 39 ml/m^2. ??Normal right atrial size. ??CARDIAC VALVES: ??Trileaflet aortic valve. ??Sclerotic aortic valve. ??Trivial aortic valve regurgitation. ??Thickened mitral valve. ??Mild mitral valve regurgitation. ??Normal pulmonary valve. ??Normal pulmonary valve systolic velocity. ??Trivial pulmonary valve regurgitation. ??Normal tricuspid valve. ??Mild tricuspid valve regurgitation. OTHER ECHO FINDINGS: ??Normal inferior vena cava size with normal inspiratory collapse (>50%). Mild ascending aorta dilatation (diameter 41 mm at mid level). ??Abdominal aorta incompletely visualized. ??Normal abdominal aorta Doppler flow pattern. ??Imaging inadequate for detection of atrial level shunt by color flow imaging. ??No intracardiac mass or thrombus, but the left atrial appendage cannot be visualized adequately with transthoracic echo to exclude thrombus in this location. ??No pericardial effusion. For the complete report, see the Order-Level Documents below. See PDF For Result Procedure Note Ap Graves M.D. - 03/28/2019 For the complete report, see the Order-Level Documents below. Final Impressions 1. Normal left ventricular chamber size; calculated ejection fgsieizr90%. 2. No regional wall motion abnormalities. 3. Grade 2/4 left ventricular diastolic dysfunction, consistent withmoderately elevated left ventricular filling pressure. 4. Estimated right ventricular systolic pressure 34 mmHg (systolic bloodpressure 148 mmHg). 5. Mild ascending aorta dilatation (diameter 41 mm at mid level). 6. No pericardial effusion. 7. Compared to the report of 07/13/2018 no significant change hasoccurred. Findings LEFT VENTRICLE: Normal left ventricular chamber size. Normal leftventricular wall thickness. Calculated left ventricular ejection fraction 63 %. No regional wallmotion abnormalities. Grade 2/4 left ventricular diastolic dysfunction, consistent withmoderately elevated left ventricular filling pressure. RIGHT VENTRICLE: Normal right ventricularsize. Normal right ventricular systolic function. Estimated right ventricular systolicpressure 34 mmHg (systolic blood pressure 148 mmHg). ATRIA: Mild left atrial enlargement. Leftatrial volume index 39 ml/m^2. Normal right atrial size. CARDIAC VALVES: Trileaflet aorticvalve. Sclerotic aortic valve. Trivial aortic valve regurgitation. Thickened mitral valve. Mildmitral valve regurgitation. Normal pulmonary valve. Normal pulmonary valve systolicvelocity. Trivial pulmonary valve regurgitation. Normal tricuspid valve. Mild tricuspidvalve regurgitation. OTHER ECHO FINDINGS: Normal inferior vena cava size with normalinspiratory collapse (>50%). Mild ascending aorta dilatation (diameter 41 mm at mid level). Abdominalaorta incompletely visualized. Normal abdominal aorta Doppler flow pattern. Imaginginadequate for detection of atrial level shunt by color flow imaging. No intracardiac mass orthrombus, but the left atrial appendage cannot be visualized adequately with transthoracic echoto exclude thrombus in this location. No pericardial effusion. For the complete report, see the Order-Level Documents below. See PDF For Result Ap Buckley M.D., Ph.D. ECHO PROC EDURES * NM Cardiac Perfusion Rest and Stress SPECT (03/28/2019 1:39 PM CDT) 03/28/2019 12:2 8 PM CDT Narrative [facility] - 03/28/2019 3:27 PM CDT See PDF For Result Ap Buckley M.D., Ph.D. [facility] MERGE NA * MO ARTHCS ASP/INJ MJR JT W US (12/21/2018 11:30 AM [facility]) Narrative MMODAL - 12/21/2018 11:30 AM [facility] Ian Bocanegra M.D. ? 12/21/2018 11:47 AM R subacromial USG Injection w/steroid Date/Time: 12/21/2018 11:44 AM Performed by: IAN BOCANEGRA Authorized by: IAN BOCANEGRA Risks discussed with: patient Procedural risks discussed, including (but not limited to) the following: infection, bleeding, transient increased pain and reaction to medication Consent obtained: written The benefits, risks and alternatives to the procedure and the potential need for sedation or anesthesia as well as the names, roles, and responsibilities of healthcare team members performing significant interventional tasks were discussed with the patient and/or decision maker: yes ?? All relevant documentation and testing were reviewed and available. All required blood products, implants, devices and/or special equipment were made available as applicable. The pre-procedure verification was conducted, the correct site was marked if required, and the procedural time out was conducted prior to performing the procedure and confirmed in a procedural pause: yes ?? Procedure purpose: therapeutic Indications: Rotator cuff tendinopathy Appropriate hand hygiene, gown, cap, mask, protective eyewear, sterile gloves, skin preparation, sterile drape, and strict aseptic technique were utilized as applicable for the procedure: yes ?? Skin preparation: chlorhexidine and alcohol Procedure location: shoulder - Shoulder site: R subacromial bursa Site prep: patient was prepped and draped in usual sterile fashion ?? Patient position: side-lying Procedure performed: injection only Needle gauge: 25 G, length: 1 1/2 in Image guidance: Ultrasound ??The use of direct ultrasound visualization of the needle was required (rather than a non-guided injection) to ensure accurate injection delivery and to maximize clinical benefit beyond that obtained with a non-guided injection. ??Additionally, there can be diagnostic specificity when evaluating effectiveness of the injection, and for safety purposes to minimize risk of bleeding or injury to surrounding structures. Additional procedure details or diagnostic findings may be noted under Other procedure detail in this note. Images have been archived in 12Return: click the 'Dept Filter' button in 12Return, then the 'Clear (Show All)' button, then OK. ??Probe: convex low/mid-frequency ??Pre-procedure image guidance used to localize target and identify at risk structures, and plan approach and site was marked using indelible marker. ??Needle approach: distal to proximal ??Ultrasound visualization: in-plane The following medications were administered at the target site(s): ??Local anesthetic: 2 mL bupivacaine PF 0.25 % (2.5 mg/mL) ??Corticosteroid: 40 mg methylPREDNISolone acetate 40 mg/mL Procedure completed successfully: yes Complications: no apparent complications ?Post-procedure instructions: avoid strenuous activity for 2 days ??Discharge instructions: ice area as needed for comfort, pain management instructions and follow-up with ordering provider Other procedure detail: ONEOME pharmacogenetics testing reviewed with patient from 03/01 showing use as directed for Lidocaine and no mention of corticosteroids on the list. Proceeded with shared decision with injection with DepoMedrol and Lidocaine as above. Ian Bocanegra M.D. PROCEDURE/MINOR SAURAV GICAL ORDERABLES Performing Organization Address [facility] Co de Phone Number MMODAL NA * Guided Procedure-Internal Medicine Image Exam (12/21/2018 11:10 AM [facility]) Narrative IIMS - 01/25/2019 12:10 PM CDT This order has been created and auto-finalized to support the import of images acquired without order. The clinical documentation to support these images can be found on the encounter that produced images. Provider Not In System IMG NON RAD IMAGI NG PROCEDURES Performing Organization Address [facility] Co de Phone Number IIMS NA * DX Knee Right with Flexion and Patella 4 Views (12/02/2018 11:53 AM [facility]) Anatomical Region Laterality Modality Lower Extremity, Knee, Muscu loskeletal RST LOS, Musculoskeletal ARZ LOS, Muskuloskeletal FLA LOS Right Compu kash Radiography 12/02/2018 11:5 7 AM [facility] Impressions 12/02/2018 11:58 AM [facility] IMPRESSION: ??Advanced degenerative arthritis right knee with tricompartmental narrowing. Lateral subluxation of the proximal tibia with respect to the distal femur. Left TKA. No significant change since 06/27/18. Narrative 12/02/2018 11:58 AM [facility] EXAM: ??DX KNEE RIGHT WITH FLEXION AND PATELLA 4 VIEWS Procedure Note Josey Lewis M.D. - 12/02/2018 EXAM: DX KNEE RIGHT WITH FLEXION AND PATELLA 4 VIEWS IMPRESSION: Advanced degenerative arthritis right knee withtricompartmental narrowing. Lateral subluxation of the proximal tibia with respect to thedistal femur. Left TKA. No significant change since 06/27/18. Telly Gaines M.D. [facility] DIAGNOSTIC JAMEE GING PROCEDURES * DX Shoulder Right 2+ Views (12/02/2018 11:53 AM [facility]) Anatomical Region Laterality Modality Upper Extremity, Shoulder, M usculoskeletal RST LOS, Musculoskeletal ARZ LOS, Muskuloskeletal FLA LOS Right Compu kash Radiography 12/02/2018 11:5 8 AM [facility] Impressions 12/02/2018 11:59 AM [facility] IMPRESSION: ??Mild glenohumeral and moderate acromioclavicular degenerative arthritis. Old fracture deformity of the distal clavicle. Subacromial spurring, which can be seen with rotator cuff degeneration. Narrative 12/02/2018 11:59 AM [facility] EXAM: ??DX SHOULDER RIGHT 2+ VIEWS Procedure Note Josey Lewis M.D. - 12/02/2018 EXAM: DX SHOULDER RIGHT 2+ VIEWS IMPRESSION: Mild glenohumeral and moderate acromioclaviculardegenerative arthritis. Old fracture deformity of the distal clavicle. Subacromialspurring, which can be seen with rotator cuff degeneration. Telly Gaines M.D. [facility] DIAGNOSTIC JAMEE GING PROCEDURES * Home sleep apnea test (HSAT) (09/16/2018 7:48 AM CDT) Narrative MMODAL - 09/16/2018 8:26 AM CDT Home sleep apnea test (WatchPAT) Summary: Total recording time was 393 min and total estimated sleep time 267.8 min, of which 170.6 min was spent in supine position. ??WatchPAT estimated apnea-hypopnea index (AHI) was 7.7 per hour respiratory disturbance index (RDI) was 9.8 per hour with some disordered breathing events seen in the supine position, in REM and non-REM sleep. ??Heart rate varied between 39-84 beats per minute, with a mean of 57 beats per minute. ??Mean oxyhemoglobin saturation was 98%, minimum 93% with a 4% oxyhemoglobin desaturation index of 7 per hour. ??Snoring was noted for a minority of the time. Clinical interpretation: Mild positional obstructive sleep apnea/hypopnea, not resulting in significant desaturation Alexus Chatman M.D. [facility] MMODAL NA * LDA ANE MASK AIRWAY (07/13/2018 4:12 PM CDT) Narrative Ap Redman APRN, CRNA - 07/13/2018 4:12 PM CDT Ap Redman APRN, CRNA ? 07/13/2018 ??4:13 PM Airway Date/Time: 07/13/2018 4:08 PM Patient location during procedure: OR / Procedure Area Performed by: AP REDMAN Authorized by: AP REDMAN Pre procedure details ?? Pre evaluation for airway management: procedure ?? Urgency: elective ?? Preop assessment of probable difficulty: no difficulty anticipated ?? Sedation level: anesthetized ?? Preoxygenation: bag valve mask Procedure details ??Mask difficulty assessment: easy mask ?? Final airway type: mask Laryngeal Manipulation: no ? Airway confirmation: bilateral chest rise ?? Other previous techniques attempted: none Post procedure details ?? Procedure outcome: successful ? Airway event: no complications Procedure Note Ap Redman APRN, CRNA - 07/13/2018 4:12 PM CDT Airway Date/Time: 07/13/2018 4:08 PM Patient location during procedure: OR / Procedure Area Performed by: AP REDMAN Authorized by: AP REDMAN Pre procedure details Pre evaluation for airway management: procedure Urgency: elective Preop assessment of probable difficulty: no difficulty anticipated Sedation level: anesthetized Preoxygenation: bag valve mask Procedure details Mask difficulty assessment: easy mask Final airway type: mask Laryngeal Manipulation: no Airway confirmation: bilateral chest rise Other previous techniques attempted: none Post procedure details Procedure outcome: successful Airway event: no complications Ap Redman APRN, ASPEN, ROB, Thaddeus RAMIREZ THEANNE ORDERABLES * CARDIOVERSION EXTERNAL (07/13/2018 4:08 PM CDT) 07/13/2018 3:26 PM CDT Narrative [facility] - 07/13/2018 5:16 PM CDT See PDF For Result Radha Lomeli APRN, C.N.P., M.S. CV C ARDIAC SERVICES PROCEDURES [facility] [address] [place] [address], [facility] * (THU) 2D WITH COLOR AND LIMITED DOPPLER (07/13/2018 4:08 PM CDT) Ejection Fraction [address] [facility] Anatomical Region Laterality Modality X-Ray Angiograph y 07/13/2018 3:26 PM CDT Narrative 07/13/2018 5:14 PM CDT See PDF For Result Procedure Note Brown Thao M.D. - 07/13/2018 See PDF For Result Ward Godwin APRNNRosa, M.S. CV E CHO PROCEDURES * MO ARTHCS ASP/INJ MJR JT WO US (06/27/2018 11:00 AM CDT) Narrative MMODAL - 06/27/2018 11:00 AM CDT Evan Armendariz PRomario.Emili. ? 06/27/2018 11:27 AM Nmd-leny-wsmfckkh-elbow arthrocentesis Date/Time: 06/27/2018 11:18 AM Performed by: EVAN ARMENDARIZ Authorized by: EVAN ARMENDARIZ Internist utilized: health director not needed ?? Risks discussed with: patient Procedural risks discussed, including (but not limited to) the following: allergic reaction, bleeding, hematoma, hyperglycemia, transient increased pain, bruising, infection, possible continued pain, reaction to medication, soft tissue reaction and stiffness Consent obtained: written All relevant documentation and testing were reviewed and available. All required blood products, implants, devices and/or special equipment were made available as applicable. The pre-procedure verification was conducted, the correct site was marked if required, and the procedural time out was conducted prior to performing the procedure and confirmed in a procedural pause: yes ?? Procedure purpose: therapeutic Indications: Pain Appropriate hand hygiene, gown, cap, mask, protective eyewear, sterile gloves, skin preparation, sterile drape, and strict aseptic technique were utilized as applicable for the procedure: yes ?? Skin preparation: chlorhexidine Anesthesia method: none Procedure location: knee - Knee site: R knee joint Site prep: patient was prepped and draped in usual sterile fashion ?? Patient position: seated Procedural approach: anterolateral Procedure performed: injection only Needle gauge: 21 G The following medications were administered at the target site(s): ??Local anesthetic: 8 mL lidocaine (PF) 10 mg/mL (1 %) ??Corticosteroid: 9 mg betamethasone acetate & sodium phosphate 6 mg/mL Procedure completed successfully: yes Complications: no apparent complications ?Discharge instructions: ice area as needed for comfort Evan Armendariz P.A.-C. PROCEDURE/MINOR SURGICAL ORDERABLES MMODAL NA * DX Knee Right 4+ Views (06/27/2018 10:52 AM CDT) Anatomical Region Laterality Modality Lower Extremity, Knee, Musculoskeletal RST LOS R ight Computed Radiography 06/27/2018 11:0 6 AM CDT Impressions 06/27/2018 11:07 AM CDT IMPRESSION: Advanced tricompartment mild degenerative change right knee. Narrative 06/27/2018 11:07 AM CDT EXAM: DX KNEE RIGHT 4+ VIEWS COMPARISON: 09/21/2011 FINDINGS: Left total knee arthroplasty with patellar resurfacing, unchanged. Advanced tricompartmental degenerative change right knee. ??Lateral subluxation of the right tibia with respect to the femoral condyles, progressed from previous exam. ??No acute fracture. Procedure Note Nacho Coe M.D. - 06/27/2018 EXAM: DX KNEE RIGHT 4+ VIEWS COMPARISON: 09/21/2011 FINDINGS: Left total knee arthroplasty with patellar resurfacing,unchanged. Advanced tricompartmental degenerative change right knee. Lateralsubluxation of the right tibia with respect to the femoral condyles, progressed from previous exam. No acute fracture. IMPRESSION: Advanced tricompartment mild degenerative change right knee. Evan Armendariz P.A.-C. IMG DIAGNOSTIC I MAGING PROCEDURES * (ABNORMAL) C-Reactive Protein, High Sensitivity (12/23/2017 9:33 AM [facility]) Pathologist [facility] C-Reactive Protein, High Sens, S 3.6(H) <2.0 mg/L 12/24/2017 10:27 AM [facility] Comment: Higher risk In adults, increased CRP is associated with an increased risk for ischemic cardiovascular events. CRP is an acute phase reactant; consider repeat analysis of CRP in 2-4 weeks to establish baseline value. Blood (Blood, Venous) 12/23/2017 9:33 AM [facility] 12/24/2017 7:59 AM [facility] Jeffrey Garay P.A.-C., P.A. LAB BLOO D ADD-ON [facility] [address] * Joyent RightMed PGx (03/12/2017 4:07 PM CDT) Pathologist [facility] F2 genotype [id number] GG [facility] Comment: Normal risk of thrombosis associated with Factor II (prothrombin). Other genetic and clinical factors contribute to the risk for thrombosis. Test Performed by: [facility] [address] [place] [address] [address] [place] [address] F2 phenotype Normal risk [facility] Comment: Test Performed by: [facility] [address] [place] [address] [address] [place] [address] F5 genotype [id number] GG [facility] Comment: Normal risk of thrombosis associated with Factor V. Other genetic and clinical factors contribute to the risk for thrombosis. Test Performed by: [facility] [address] [place] [address] [address] [place] [address] F5 phenotype Normal risk [facility] Comment: Test Performed by: [facility] [address] [place] [address] [address] [place] [address] COMT genotype [id number] AA [facility] Comment: COMT activity is predicted to be lower than in patients with the GG or GA genotypes at [id number]. Test Performed by: [facility] [address] [place] [address] [address] [place] [id number] COMT phenotype Low [facility] Comment: Test Performed by: [facility] [address] [place] [address] [address] [place] [address] DPYD genotype *1/*1 [facility] Comment: Normal metabolizer. Normal dihydropyrimidine dehydrogenase activity. Normal risk of toxicities with fluoropyrimidines (5-fluorouracil, capecitabine and tegafur). Test Performed by: [facility] [address] [place] [address] [address] [place] [address] DPYD phenotype Normal DPD activity [facility] Comment: Test Performed by: [facility] [address] [place] [address] [address] [place] [address] DRD2 genotype [id number] AA [facility] Comment: Genotype is associated with a greater likelihood of improvement in schizophrenia symptoms with risperidone compared to the GG genotype. Other clinical and/or genetic factors may influence the response. Test Performed by: [facility] [address] [place] [address] [address] [place] [address] DRD2 phenotype Normal response [facility] Comment: Test Performed by: [facility] [address] [place] [address] [address] [place] [address] TPMT genotype *1/*1 [facility] Comment: Normal TPMT metabolizer. Normal risk of myelotoxicity associated with thiopurines (azathioprine, mercaptopurine and thioguanine). Toxicities with thiopurines can also occur due to impaired NUDT15 activity independently from the TPMT status. Test Performed by: [facility] [address] [place] [address] [address] [place] [address] TPMT phenotype Normal Risk [facility] Comment: Test Performed by: [facility] [employer] [facility] [address] [place] [address] GRIK4 genotype [id number] TT [facility] Comment: Genotype predicts a 10% increase in the risk of not responding to citalopram in patients with major depressive disorder related to the GRIK4 genotype alone. Other clinical and/or genetic factors may influence the response. Test Performed by: [facility] [employer] [facility] [address] [place] [id number] GRIK4 phenotype Risk of decreased response [facility] Comment: Test Performed by: [facility] [employer] [facility] [address] [place] [id number] HTR2A genotype [id number] AG [facility] Comment: Genotype predicts a normal likelihood of response to citalopram. Other clinical and/or genetic factors may influence response. Test Performed by: [facility] [employer] [facility] [address] [place] [address] HTR2A phenotype Intron 2 genotype AG [facility] Comment: Test Performed by: [facility] [address] [place] [address] HTR2C genotype [id number] CC [facility] Comment: Genotype predicts an increased risk of weight gain with olanzapine treatment. Other clinical and/or genetic factors may influence response. Test Performed by: [facility] [employer] [facility] [address] [place] [address] HTR2C phenotype Increased risk [facility] [facility] Comment: Test Performed by: ipvive [facility] [address] [place] [address] IL28B (IFNL4) genotype [id number] CC [facility] Comment: Genotype predicts a normal sustained virologic response (SVR) with peginterferon-containing regimens. Test Performed by: ipvive [facility] [address] [place] [address] IL28B (IFNL4) phenotype Normal response [facility] Comment: Test Performed by: ipvive [facility] [employer] [facility] [address] [place] [address] OPRM1 genotype [id number] AA [facility] Comment: Analgesic effects of alfentanil and tramadol (possibly other opioids) may be higher in patients with this genotype. Other genetic and/or clinical factors influence response. Test Performed by: ipvive 80[employer] [facility] [address] [place] [address] OPRM1 phenotype Asn/Asn isoform [facility] Comment: Test Performed by: ipvive [address] [place] [address] [address] [place] [address] CY genotype *1A/*1A [facility] Comment: Normal level of activity. Drugs metabolized at a normal rate. Test Performed by: ipvive [facility] [address] [place] [address] CY phenotype Normal [facility] Comment: Test Performed by: ipvive [employer] [facility] [address] [place] [address] CYP2B6 genotype *1/*6 [facility] Comment: Decreased activity. Drugs converted to active metabolite(s) may have reduced efficacy. Active drugs converted to inactive metabolites may cause side effects or toxicity. Test Performed by: ipvive [address] [place], [place] [address]way [facility] [address] [place] [address] CYP2B6 phenotype Intermediate [facility] Comment: Test Performed by: ipvive [address] [place] [address] [address] [place] [address] CYP2C9 genotype *1/*1 [facility] Comment: Normal level of activity. Drugs metabolized at a normal rate. Test Performed by: ipvive [address] [place] [address] [address] [place] [address] CYP2C9 phenotype Normal [facility] Comment: Test Performed by: ipvive [address] [place] [address] 100 [place] [address] CYP2D6 genotype *2A/*35 [facility] Comment: Increased activity. Drugs converted to active metabolite(s) may cause side effects or toxicity. Active drugs converted to inactive metabolites may lack efficacy. Test Performed by: ipvive [employer] [facility] [address] [place] [address] CYP2D6 phenotype Rapid [facility] Comment: Test Performed by: ipvive [address] [place] [address] [address] [place] [address] CY genotype *1/*1 [facility] Comment: Normal level of activity. Drugs metabolized at a normal rate. Test Performed by: ipvive [employer] [facility] [address] [place] [address] CY phenotype Normal [facility] Comment: Test Performed by: ipvive [address] [place] [address] [address] [place] [address] CY genotype *3/*3 [facility] Comment: Normal dosing may be required because original dosing guidelines for drugs have been established on patients with poor metabolizer phenotype. Test Performed by: ipvive [address] [place] [address] [address] [place] [address] CY phenotype Poor [facility] Comment: Test Performed by: ipvive [address] [place] [address] [address] [place] [address] NUDT15 genotype [id number] CC [facility] Comment: No increased risk of toxicity of life-threatening toxicities with thiopurine administration related to the NUDT15 genotype. Toxicities with thiopurines can also occur due to impaired TPMT activity, regardless of the NUDT15 status. Test Performed by: ipvive [address] [place] [address] [address] [place] [address] NUDT15 phenotype Normal Risk [facility] Comment: Test Performed by: ipvive [address] [place] [address] [address] [place] [address] UGT1A1 genotype *1/*28 [facility] Comment: Decreased UGT1A1 activity. Increased risk for severe neutropenia with irinotecan, and toxicity and hyperbilirubinemia with nilotinib. Consult drug labeling for dosing recommendations. Genotype also indicates carrier status for Gilbert syndrome, but is not expected to cause marked congenital unconjugated hyperbilirubinemia. Test Performed by: ipvive [address] [place] [address] [address] [place] [address] UGT1A1 phenotype Increased Risk [facility] Comment: Test Performed by: ipvive [address] [place] [address] [address] [place] [address] VKORC1 genotype [id number] GG [facility] Comment: Normal activity of the Vitamin K epoxide reductase enzyme, associated with the c.-1639GG polymorphism. The VKORC1 genotype together with the CYP2C9 genotype determines the sensitivity to warfarin therapy. Test Performed by: ipvive [address] [place] [address] [address] [place] [address] VKORC1 phenotype Normal activity [facility] Comment: Test Performed by: ipvive [address] [place] [address] [id number] genotype *1/*17 [facility] Comment: Increased activity. Drugs converted to active metabolite(s) may cause side effects or toxicity. Active drugs converted to inactive metabolites may lack efficacy. Test Performed by: ipvive [address] [place] [address] [id number] phenotype Rapid [facility] Comment: Test Performed by: ipvive [address] [place] [address] [id number] genotype *1/*1 [facility] Comment: Normal risk of simvastatin-induced myopathy. Normal function of GATL0Z4. Test Performed by: ipvive [address] [place] [address] [id number] phenotype Normal Risk [facility] Comment: Test Performed by: ipvive [address] [place] [address] Laboratory Comments See Comment [facility] Comment: No comments. Test Performed by: ipvive [address] [place] [address] Laboratory methods See Comment [facility] Comment: Analytical results were produced using tests developed and validated by [facility]ive, a clinical laboratory located at [address] [place] [address]. These tests have not been cleared or approved by the U.S. Food and Drug Administration. [employer] is certified under CLIA-88 and accredited by the [employer] as qualified to perform high-complexity testing. This test is used for clinical purposes and should not be regarded as investigational or for research. Genomic DNA was analyzed by PCR using Thermo Denis TaqMan(R) and/or Remind BHQ(R) probe-based methods to interrogate the variant locations listed in the Test results table above. In addition, CYP2D6 copy number status was assessed at sites within the promoter, intron 2, intron 6, and exon 9. The test detects CYP2D6 deletions, duplications/multiplications, and hybrid alleles, but cannot differentiate duplications in the presence of a deletion. Haplotypes, or combinations of inherited variants on a chromosome, are annotated according to legacy nomenclature for the genes and alleles in the table below. Less frequent haplotypes or novel alleles may be reported when appropriate. The test does not detect all known and unknown variations in the gene(s) tested, nor does absence of a detectable variant (designated as *1 for genes encoding drug metabolizing enzymes) rule out the presence of other, non-detected variants. As with other common SNP genotyping techniques, these assays cannot differentiate between the maternal and paternal chromosomes. In cases where observed variants are associated with more than one haplotype, [employer] infers and reports the most likely diplotype based on published allele frequency and/or ethnicity data. Inferences with potential clinical impact are reported in the Report and laboratory comments section. The variant detection methods validated by [employer] provide >99.9% accuracy; however, PCR may be subject to general interference by factors such as reaction inhibitors and low quality or quantity of extracted DNA. When present, these interferents typically yield no result rather than an inaccurate one. Very infrequent variants or polymorphisms occurring in primer- or probe-binding regions may also affect testing and could produce an erroneous result or assay failure. Variant locations tested by the assay but not assigned a genotype call are reported as No Call. Test results and clinical interpretation may be inaccurate for individuals who have undergone or are receiving non-autologous blood transfusions, tissue, and/or organ transplant therapies. Although extremely rare, results could also be impacted by other factors not addressed above, such as laboratory error. Due to the complexity of interpreting some genetic test results, such as those that may carry a probabilistic risk of disease, patients and providers should consider the benefits of consulting with a trained genetic counseling professional, physician, or pharmacogenomic specialist. For additional support, contact [facility] through the website or by calling [phone]. The interpretations and clinical annotations provided by [facility] are intended solely for use by a medical professional and do not constitute medical advice by [facility]. The treating provider remains ultimately responsible for all diagnosis and treatment decisions for the patient. [facility] disclaims liability for any errors, omissions or ambiguities in any translation or interpretation of a report by a third republican, including without limitation direct, indirect, incidental, special, consequential or exemplary damages, whether such damages arise in contract, negligence, tort, under statute, in equity, at law or otherwise. Information included in this report is based upon scientific literature, including information from and guidelines published by professional associations (e.g., CPIC, FDA, DPWG), and does not take into account other genetic variants and environmental or social factors that may affect a patient's response. Other factors not included in this report include, but are not limited to, environmental factors (e.g., smoking), health factors (e.g., diet), social and familial factors, various medical conditions, and ukup-li-iybh interactions. Administration of any medication, including the ones listed in the [employer] reports, requires careful therapeutic monitoring regardless of the phenotype or genotype-predicted interaction reported. As a matter of practice, [employer] will routinely update its pharmacogenomic database as new information becomes available to the scientific community. Genotype-predicted interactions and annotations found on the patient's [facility] comprehensive test report, [facility] Advisor reports, or [facility] specialty reports are therefore dependent on the date of generation and/or the database version used to generate that report. Providers may access these reports with updated annotations using [employer]'s latest released version through the provider portal at [email or web address]. Test Performed by: ipvive [address] [address] 03/12/2017 4:07 PM CDT 03/12/2017 4:07 PM CDT Historical Provider LAB GENETIC TESTING [facility] [address] * [facility] Phagenesis 22-gene PGx test (03/11/2017 10:25 AM CDT) [facility] . [facility] Comment: Test ?Result ? Flag ??Unit ??RefValue ? Right[employer] ?Ethnicity ? White or ?Result ?. ?Final Report: See Documents tab in [employer] LastWord ?or Synthesis. ? 03/11/2017 10:2 5 AM CDT 03/11/2017 10:25 AM CDT Telly Gaines M.D. LAB GENETIC TESTIN G Performing Organization Address City/[facility] Co de Phone Number [facility] [address] * (ABNORMAL) PROTIME/INR POC-LAB (01/07/2017 8:15 AM [facility]) Only the most recent of46 resultswithin the time period is included. INR, POCT, B 2.0(H) 0.8 - 1.2 POWERCHART Blood 01/07/2017 8:15 AM [facility] Telly Gaines M.D. LAB HISTORICAL ORD ERS Performing Organization Address City/[facility] Co de Phone Number POWERCHART * DX Knee 3 Views (01/06/2017 11:03 AM [facility]) Only the most recent of4 resultswithin the time period is included. Anatomical Region Laterality Modality Lower Extremity, Knee N/A Radiograph ic Imaging 01/06/2017 11:0 3 AM [facility] Impressions 01/06/2017 11:06 AM [facility] Left TKA with patellar resurfacing. No radiographic evidence of loosening. Advanced degenerative arthritis right knee with lateral subluxation at the tibia and patella. Electronically signed by: ?? Prakash Sebastian MD. ??[phone] 06-Jan-2017 11:06 Narrative 01/06/2017 11:06 AM [facility] 06-Jan-2017 11:03:00 ??Exam: L Knee 3vw/STDG w/Patella Indications: DJD (OA) Knee L ORIGINAL REPORT - 06-Jan-2017 11:06:00 EXAM: Left Knee 3vw/STDG w/Patella: Procedure Note Lee Ann Sebastian M.D. - 02/09/2018 06-Jan-2017 11:03:00 Exam: L Knee 3vw/STDG w/Patella Indications: DJD (OA) Knee L ORIGINAL REPORT - 06-Jan-2017 11:06:00 EXAM: Left Knee 3vw/STDG w/Patella: IMPRESSION: Left TKA with patellar resurfacing. No radiographic evidenceof loosening. Advanced degenerative arthritis right knee with lateralsubluxation at the tibia and patella. Electronically signed by: Prakash Sebastian MD. [phone] 06-Jan-2017 11:06 José Antonio Mayfield P.A.-C. IMG DIAGNOSTIC I MAGING PROCEDURES * CT Maxillofacial without IV Contrast (11/29/2016 2:57 PM [facility]) Anatomical Region Laterality Modality Jaw, Head N/A Computed Tomogra phy 11/29/2016 2:57 PM [facility] Impressions 11/29/2016 4:10 PM [facility] ??No evidence of abscess within the visualized soft tissues of the face. FINDINGS: IV contrast was not administered secondary to patient's reported previous history of anaphylactic reaction. No organized fluid collection in the visualized soft tissues of the face to suggest abscess formation. No definite inflammatory induration to suggest cellulitis. No periapical lucencies to suggest odontogenic disease. Marked degenerative change right temporomandibular joint. The right middle ear and mastoid are clear. The visualized portion of the brain is unremarkable. Postoperative changes both globes. Mucus retention cyst left maxillary sinus. The visualized paranasal sinuses, middle ears, and mastoid air cells are otherwise clear. Degenerative change at the atlantoaxial interval with pannus formation. Electronically signed by: ?? Jayson Moore MD [phone] 29-Nov-2016 16:10 ?Ap Mercer M.D. [phone] 29-Nov-2016 16:10 Narrative 11/29/2016 4:10 PM [facility] 29-Nov-2016 14:57:00 ??Exam: CT Maxillofacial wo Indications: ED CENTER 12 / CT FACE. ???abscess ORIGINAL REPORT - 29-Nov-2016 16:10:00 EXAM: ??CT scan of the Maxillofacial region without IV contrast COMPARISON: ??CT head 05/04/2004. Indication right-sided jaw pain, right facial swelling. Procedure Note de Ap Glass M.D. - 02/09/2018 29-Nov-2016 14:57:00 Exam: CT Maxillofacial wo Indications: ED CENTER 12 / CT FACE. ?abscess ORIGINAL REPORT - 29-Nov-2016 16:10:00 EXAM: CT scan of the Maxillofacial region without IV contrast COMPARISON: CT head 05/04/2004. Indication right-sided jaw pain, rightfacial swelling. IMPRESSION: No evidence of abscess within the visualized soft tissues ofthe face. FINDINGS: IV contrast was not administered secondary to patient's reportedprevious history of anaphylactic reaction. No organized fluid collection in the visualized soft tissues of the faceto suggest abscess formation. No definite inflammatory induration tosuggest cellulitis. No periapical lucencies to suggest odontogenicdisease. Marked degenerative change right temporomandibular joint. Theright middle ear and mastoid are clear. The visualized portion of the brain is unremarkable. Postoperative changesboth globes. Mucus retention cyst left maxillary sinus. The visualizedparanasal sinuses, middle ears, and mastoid air cells are otherwise clear.Degenerative change at the atlantoaxial interval with pannus formation. Electronically signed by: Jayson Moore MD [phone] 29-Nov-2016 16:10 Ap Mercer M.D. [id number] 16:10 Alexandra Mcelroy M.D., M.S. IM CT PROCE DURES * Cardiac Biomarker Panel (11/29/2016 1:19 PM [facility]) Only the most recent of2 resultswithin the time period is included. Delta Interp Not Sig [facility] Comment:No significant delta observed. Troponin Delta 0.00 NG/ML [facility] Troponin T, S <0.01 <0.01 NG/ML [facility] Troponin T 3H, S <0.01 <0.01 NG/ML [facility] Troponin T 6H, S . [facility] Comment:Test canceled. Patie nt discharged - N/C 11/29/2016 1:19 PM [facility] 11/29/2016 1:19 PM [facility] Alexandra Mcelroy M.D., M.S. LAB BLOOD AD D-ON Performing Organization Address City/[facility]/ZIP Co de Phone Number [facility] [address] * Sedimentation Rate (11/29/2016 1:19 PM [facility]) Only the most recent of2 resultswithin the time period is included. Sedimentation Rate, B 24 0 - 29 MM/1 H [facility] 11/29/2016 1:19 PM [facility] 11/29/2016 1:19 PM [facility] Alexandra Mcelroy M.D., M.S. LAB BLOOD AD D-ON Performing Organization Address [facility] Co de Phone Number [facility] [address] * (ABNORMAL) Protime/INR, POCT (10/30/2016 10:05 AM [facility]) Only the most recent of14 resultswithin the time period is included. INR, POCT, B 2.2(H) 1 - 1 POWERCHART 10/30/2016 10:0 5 AM [facility] Telly Gaines M.D. LAB POCT ORDERABLE S - DEVICE Performing Organization Address City/[facility] Co de Phone Number POWERCHART * ECHOCARDIOLOGY IMAGE EXAM (09/02/2016 3:48 PM CDT) Only the most recent of9 resultswithin the time period is included. Anatomical Region Laterality Modality Other 09/02/2016 3:48 PM CDT Addenda Addendum by ProviderBessy M.D. on 09/02/2016 3:48 PM CDT ECHO^^^MCR TTE FOR GO5 09/02/2016 15:48:00 Historical Provider IMG NON RAD IMAGING PROCEDURES * Echo Transthoracic (TTE) (09/02/2016 3:32 PM CDT) Anatomical Region Laterality Modality Echocardiography 09/02/2016 3:32 PM CDT Ap Buckley M.D., Ph.D. CV ECHO PROC EDURES * CT Abdomen Pelvis without IV Contrast (05/10/2016 10:02 AM CDT) Only the most recent of5 resultswithin the time period is included. Anatomical Region Laterality Modality Abdomen, Pelvis N/A Computed Tomogra phy 05/10/2016 10:0 2 AM CDT Addenda Addendum by ProviderBessy M.D. on 05/10/2016 10:02 AM CDT RAD^^^OW CT Abdomen Pelvis w o contrast 05/10/2016 10:02:00 Impressions 05/10/2016 6:38 PM CDT 1.Slight prominence of the proximal left renal collecting system with punctate calcination near the left ureteral vesicular junction. Which may represent a passing distal left ureteral calculus or possible ureteral adjacent calcified pelvic phleboliths. Based on its size likely has a high probability of passing if it does represent a calculus. No obstructing mass or calculus disease. Narrative 05/10/2016 6:38 PM CDT EXAM: ??CT Abdomen/Pelvis w/o contrast AGE: ??70 years old. GENDER: ??Female. INDICATION: ??3 day pain LLQ and low L back, hx diverticulosis, had blood in urine, now UA clear. COMPARISON: ??None. FINDINGS: ??CT of the abdomen and pelvis. Stone protocol. Sensory for evaluation of soft tissues and organs is limited without benefit of IV contrast. Preliminary report generated by virtual radiology. Lung bases: Visualized lung bases are clear. Small/medium size esophageal hiatal hernia. Abdomen and pelvis: Mild decreased attenuation changes throughout the liver compatible probable steatosis. Slight prominence of the proximal left renal collecting system with punctate calcination near the left ureteral vesicular junction. Which may represent a passing distal left ureteral calculus or possible ureteral adjacent calcified pelvic phleboliths. Based on its size likely has a high probability of passing if it does represent a calculus. No obstructing mass or calculus disease. Decompressed urinary bladder which is slightly thickened, likely due to decompressed volume. Scattered degenerative changes throughout the visualized axial and appendicular skeleton. Lower thoracic/upper lumbar curve convex right. Tiny fat containing umbilical hernia. Procedure Note Daniel Lindsay M.D. / Bessy Gloria M.D. - 03/20/2017 EXAM: CT Abdomen/Pelvis w/o contrast AGE: [age] years old. GENDER: Female. INDICATION: 3 day pain LLQ and low L back, hx diverticulosis, had blood in urine, now UA clear. COMPARISON: None. FINDINGS: CT of the abdomen and pelvis. Stone protocol. Sensory for evaluation of soft tissues and organs is limited without benefit of IV contrast. Preliminary report generated by virtual radiology. Lung bases: Visualized lung bases are clear. Small/medium size esophageal hiatal hernia. Abdomen and pelvis: Mild decreased attenuation changes throughout the liver compatible probable steatosis. Slight prominence of the proximal left renal collecting system with punctate calcination near the left ureteral vesicular junction. Which may represent a passing distal left ureteral calculus or possible ureteral adjacent calcified pelvic phleboliths. Based on its size likely has a high probability of passing if it does represent a calculus. No obstructing mass or calculus disease. Decompressed urinary bladder which is slightly thickened, likely due to decompressed volume. Scattered degenerative changes throughout the visualized axial and appendicular skeleton. Lower thoracic/upper lumbar curve convex right. Tiny fat containing umbilical hernia. IMPRESSION: 1.Slight prominence of the proximal left renal collecting system with punctate calcination near the left ureteral vesicular junction. Which may represent a passing distal left ureteral calculus or possible ureteral adjacent calcified pelvic phleboliths. Based on its size likely has a high probability of passing if it does represent a calculus. No obstructing mass or calculus disease. Becky Rust(R)(CT), R.T.(R) IMG C T PROCEDURES * (ABNORMAL) Urinalysis, Midstream, with culture if indicated (05/10/2016 9:33 AM CDT) Only the most recent of2 resultswithin the time period is included. HXUR WBC. None Seen None Seen HPF POWERCHART HXUR RBC. Occ-2 None Seen HPF POWERCHART Squamous Epithelial Occ-3(A) None Seen HPF POWERCHART HXUr Color Yellow Yellow POWERCHART Clarity Clear Clear POWERCHART Glucose Negative Negative POWERCHART HXBILIRUBIN Negative Negative POWERCHART Ketones, QL(U) Negative Negative POWERCHART Specific [place], POCT, U 1.010 1.001 - 1.035 POWERCHART pH, POCT, Urine 6.5 POWERCHART Protein, Ur, Dip Negative Negative POWERCHART Urobilinogen 1.0 0.2 MGDL POWERCHART HXNITRITE Negative Negative POWERCHART HXBLOOD Negative Negative POWERCHART Leukocyte Esterase Negative Negative POWERCHART Urine, First Voided 05/10/2016 9:33 AM CDT Jose A Muller M.D. LAB URINE ORDERABLES Performing Organization Address City/[facility]/ZIP Co de Phone Number POWERCHART * ALT (Alanine Aminotransferase) (05/05/2016 9:58 AM CDT) Only the most recent of5 resultswithin the time period is included. Alanine Aminotransferase (ALT), S 19 7 - 45 U/L [facility] 05/05/2016 9:58 AM CDT 05/05/2016 9:58 AM CDT Telly Gaines M.D. LAB BLOOD ADD-ON [facility] [address] * Glucose, Random (05/05/2016 9:58 AM CDT) Only the most recent of2 resultswithin the time period is included. Glucose, S 108 70 - 140 MG/DL [facility] 05/05/2016 9:58 AM CDT 05/05/2016 9:58 AM CDT Telly Gaines M.D. LAB BLOOD TROPONIN Performing Organization Address City/[facility]/ZIP Co de Phone Number [facility] [address] * Calcium, Total (05/05/2016 9:58 AM CDT) Only the most recent of3 resultswithin the time period is included. Calcium, Total, S 9.4 8.9 - 10.1 MG/DL [facility] 05/05/2016 9:58 AM CDT 05/05/2016 9:58 AM CDT Telly Gaines M.D. LAB BLOOD ADD-ON Performing Organization Address City/[facility] Co de Phone Number [facility] [address] * Hemoglobin A1c (05/05/2016 9:57 AM CDT) Only the most recent of2 resultswithin the time period is included. Hemoglobin A1c, B 5.9 4.0 - 6.0 % [facility] 05/05/2016 9:57 AM CDT 05/05/2016 9:57 AM CDT Telly Gaines M.D. LAB BLOOD ADD-ON Performing Organization Address City/[facility] Co de Phone Number [facility] [address] * BI Ultrasound Exam (05/16/2015 11:24 AM CDT) Only the most recent of3 resultswithin the time period is included. Anatomical Region Laterality Modality Breast N/A Ultrasound 05/16/2015 11:2 4 AM CDT Impressions 05/16/2015 11:24 AM CDT INCOMPLETE: NEED ADDITIONAL IMAGING EVALUATION, TARGETED ?? ULTRASOUND BENIGN ?? The 9 mm x 3 mm cyst in the left breast is consistent with a simple ?? cyst and is benign. ?? RECOMMENDATION: Return to annual mammogram screening schedule is ?? recommended. ??The patient will receive a letter notifying her of the ?? results. ?? Sanjuana Brizuela M.D. ? dhw/:05/16/2015 11:14:41 ?? letter sent: 1D/2D - Negative Diagnostic ?? OVERALL STUDY BIRADS: 2 Benign Electronically signed by: ?? Prakash Brizuela ??MD ??[id number] 16-May-2015 11:24 Narrative 05/16/2015 11:24 AM CDT 16-May-2015 11:24:00 ??Exam: L MG /Ultrasound Exam Indications: Abnormal breast imaging study ORIGINAL REPORT - 16-May-2015 11:24:00 EXAM: UNILATERAL LEFT DIGITAL DIAGNOSTIC MAMMOGRAM 3D/2D AND TARGETED ?? LEFT ULTRASOUND: 05/16/2015 HISTORY/INDICATION: Abnormal screening mammogram left breast. ?? COMPARISON: ??Comparison is made to prior exams. ?? DENSITY: ??(D2) There are scattered fibroglandular densities in the ?? left breast. FINDINGS: ??Additional views confirm the screening detected oval mass ?? in the left breast at 12 o'clock anterior depth. Targeted ultrasound ?? demonstrates a corresponding 9 mm x 3 mm cyst at 12 o'clock anterior ?? depth 3 cm from the nipple. ??No other significant masses or ?? calcifications are seen in the breast on the mammogram or left ?? targeted ultrasound. ?? Procedure Note Sanjuana Brizuela M.D. - 02/11/2018 16-May-2015 11:24:00 Exam: L MG /Ultrasound Exam Indications: Abnormal breast imaging study ORIGINAL REPORT - 16-May-2015 11:24:00 EXAM: UNILATERAL LEFT DIGITAL DIAGNOSTIC MAMMOGRAM 3D/2D AND TARGETED LEFT ULTRASOUND: 05/16/2015 HISTORY/INDICATION: Abnormal screening mammogram left breast. COMPARISON: Comparison is made to prior exams. DENSITY: (D2) There are scattered fibroglandular densities in the left breast. FINDINGS: Additional views confirm the screening detected oval mass in the left breast at 12 o'clock anterior depth. Targeted ultrasound demonstrates a corresponding 9 mm x 3 mm cyst at 12 o'clock anterior depth 3 cm from the nipple. No other significant masses or calcifications are seen in the breast on the mammogram or left targeted ultrasound. IMPRESSION: INCOMPLETE: NEED ADDITIONAL IMAGING EVALUATION, TARGETED ULTRASOUND BENIGN The 9 mm x 3 mm cyst in the left breast is consistent with a simple cyst and is benign. RECOMMENDATION: Return to annual mammogram screening schedule is recommended. The patient will receive a letter notifying her of the results. Sanjuana Brizuela M.D. formerly [facility]/:05/16/2015 11:14:41 letter sent: 1D/2D - Negative Diagnostic OVERALL STUDY BIRADS: 2 Benign Electronically signed by: Prakash Brizuela MD [id number] 16-May-2015 11:24 Telly Gaines M.D. IMG BI PROCEDURES * BI Breast Diagnostic Left (05/16/2015 10:22 AM CDT) Anatomical Region Laterality Modality Breast Left Mammography 05/16/2015 10:2 2 AM CDT Impressions 05/16/2015 11:24 AM CDT INCOMPLETE: NEED ADDITIONAL IMAGING EVALUATION, TARGETED ?? ULTRASOUND BENIGN ?? The 9 mm x 3 mm cyst in the left breast is consistent with a simple ?? cyst and is benign. ?? RECOMMENDATION: Return to annual mammogram screening schedule is ?? recommended. ??The patient will receive a letter notifying her of the ?? results. ?? Sanjuana Brizuela M.D. ? formerly [facility]/:05/16/2015 11:14:41 ?? letter sent: 1D/2D - Negative Diagnostic ?? OVERALL STUDY BIRADS: 2 Benign Electronically signed by: ?? Prakash Brizuela ?[phone] 16-May-2015 11:24 Narrative 05/16/2015 11:24 AM CDT 16-May-2015 10:22:00 ??Exam: Mammo Diag LT Indications: Abnormal breast imaging study ORIGINAL REPORT - 16-May-2015 11:24:00 EXAM: UNILATERAL LEFT DIGITAL DIAGNOSTIC MAMMOGRAM 3D/2D AND TARGETED ?? LEFT ULTRASOUND: 05/16/2015 HISTORY/INDICATION: Abnormal screening mammogram left breast. ?? COMPARISON: ??Comparison is made to prior exams. ?? DENSITY: ??(D2) There are scattered fibroglandular densities in the ?? left breast. FINDINGS: ??Additional views confirm the screening detected oval mass ?? in the left breast at 12 o'clock anterior depth. Targeted ultrasound ?? demonstrates a corresponding 9 mm x 3 mm cyst at 12 o'clock anterior ?? depth 3 cm from the nipple. ??No other significant masses or ?? calcifications are seen in the breast on the mammogram or left ?? targeted ultrasound. ?? Procedure Note Sanjuana Brizuela M.D. - 02/11/2018 16-May-2015 10:22:00 Exam: Mammo Diag LT Indications: Abnormal breast imaging study ORIGINAL REPORT - 16-May-2015 11:24:00 EXAM: UNILATERAL LEFT DIGITAL DIAGNOSTIC MAMMOGRAM 3D/2D AND TARGETED LEFT ULTRASOUND: 05/16/2015 HISTORY/INDICATION: Abnormal screening mammogram left breast. COMPARISON: Comparison is made to prior exams. DENSITY: (D2) There are scattered fibroglandular densities in the left breast. FINDINGS: Additional views confirm the screening detected oval mass in the left breast at 12 o'clock anterior depth. Targeted ultrasound demonstrates a corresponding 9 mm x 3 mm cyst at 12 o'clock anterior depth 3 cm from the nipple. No other significant masses or calcifications are seen in the breast on the mammogram or left targeted ultrasound. IMPRESSION: INCOMPLETE: NEED ADDITIONAL IMAGING EVALUATION, TARGETED ULTRASOUND BENIGN The 9 mm x 3 mm cyst in the left breast is consistent with a simple cyst and is benign. RECOMMENDATION: Return to annual mammogram screening schedule is recommended. The patient will receive a letter notifying her of the results. Sanjuana Brizuela M.D. formerly [facility]/:05/16/2015 11:14:41 letter sent: 1D/2D - Negative Diagnostic OVERALL STUDY BIRADS: 2 Benign Electronically signed by: Prakash Brizuela MD [id number] 16-May-2015 11:24 Telly Gaines M.D. IMG BI PROCEDURES * BI Breast Screening Bilateral (05/15/2015 11:07 AM CDT) Only the most recent of3 resultswithin the time period is included. Anatomical Region Laterality Modality Breast Bilateral Mammography 05/15/2015 11:0 7 AM CDT Impressions 05/15/2015 2:55 PM CDT INCOMPLETE: NEED ADDITIONAL IMAGING EVALUATION The oval mass in the left breast is indeterminate. ?? RECOMMENDATION: ?? The patient will be contacted by the radiology department to arrange ?? additional imaging. ?? Ryan Silva M.D. ? kng/penrad:05/15/2015 14:53:48 ?? letter sent: 0 - Additional Imaging Needed ?? Mammogram BI-RADS: 0 Incomplete: Need additional imaging evaluation Electronically signed by: ?? Sivan Silva MD.[id number] 15-May-2015 14:55 Narrative 05/15/2015 2:55 PM CDT 15-May-2015 11:07:00 ??Exam: Mammo Screen Bilat Indications: Screening Mammogram Breast Ca ORIGINAL REPORT - 15-May-2015 14:55:00 EXAM: BILATERAL DIGITAL SCREENING MAMMOGRAM WITH CAD: 05/15/2015 HISTORY/INDICATION: Screening Mammogram Breast Ca. ?? Current study was also evaluated with a Computer Aided Detection (CAD) system. ?? COMPARISON: ??Comparison is made to prior exams. ?? DENSITY: ??(D2) There are scattered fibroglandular densities in both ?? breasts. FINDINGS: ??There is an oval mass in the left breast at 12 o'clock ?? anterior depth. ?? No other significant masses, calcifications, or other findings are ?? seen in either breast. ?? Procedure Note Sivan Silva M.B., Ch.B. - 02/11/2018 15-May-2015 11:07:00 Exam: Mammo Screen Bilat Indications: Screening Mammogram Breast Ca ORIGINAL REPORT - 15-May-2015 14:55:00 EXAM: BILATERAL DIGITAL SCREENING MAMMOGRAM WITH CAD: 05/15/2015 HISTORY/INDICATION: Screening Mammogram Breast Ca. Current study was also evaluated with a Computer Aided Detection (CAD) system. COMPARISON: Comparison is made to prior exams. DENSITY: (D2) There are scattered fibroglandular densities in both breasts. FINDINGS: There is an oval mass in the left breast at 12 o'clock anterior depth. No other significant masses, calcifications, or other findings are seen in either breast. IMPRESSION: INCOMPLETE: NEED ADDITIONAL IMAGING EVALUATION The oval mass in the left breast is indeterminate. RECOMMENDATION: The patient will be contacted by the radiology department to arrange additional imaging. Ryan bryan/brandie:05/15/2015 14:53:48 letter sent: 0 - Additional Imaging Needed Mammogram BI-RADS: 0 Incomplete: Need additional imaging evaluation Electronically signed by: Sivan Silva MD.[id number] 15-May-2015 14:55 Telly Gaines M.D. IMG BI PROCEDURES * DX Foot 3+ Views (05/14/2015 12:44 PM CDT) Only the most recent of3 resultswithin the time period is included. Anatomical Region Laterality Modality Lower Extremity, Foot N/A Radiograph ic Imaging 05/14/2015 12:4 4 PM CDT Impressions 05/14/2015 12:46 PM CDT Demineralization. Left 1st and 2nd crossover toes. Left hindfoot valgus and pes planus. Scattered degenerative arthritis. Small plantar calcaneal spur. Electronically signed by: ?? Alli Abdi MD [id number] 14-May-2015 12:46 Narrative 05/14/2015 12:46 PM CDT 14-May-2015 12:44:00 ??Exam: L Foot 3vw/STDG AP/Lat/Obl Indications: Pain Foot NOS ORIGINAL REPORT - 14-May-2015 12:46:00 EXAM: Left Foot 3vw/STDG AP/Lat/Obl: Procedure Note Dionte Abdi M.D. - 02/11/2018 14-May-2015 12:44:00 Exam: L Foot 3vw/STDG AP/Lat/Obl Indications: Pain Foot NOS ORIGINAL REPORT - 14-May-2015 12:46:00 EXAM: Left Foot 3vw/STDG AP/Lat/Obl: IMPRESSION: Demineralization. Left 1st and 2nd crossover toes. Lefthindfoot valgus and pes planus. Scattered degenerative arthritis. Smallplantar calcaneal spur. Electronically signed by: Alli Abdi MD [id number] 14-May-2015 12:46 Jean Stewart M.D. IMG DIAGNOSTIC JAMEE GING PROCEDURES * Echo Transthoracic (TTE) (02/26/2015 1:51 PM CDT) Anatomical Region Laterality Modality Echocardiography 02/26/2015 1:51 PM CDT Ap Buckley M.D., Ph.D. CV ECHO PROC EDURES * CT Heart Structure Morphology without and with IV Contrast (02/26/2015 10:01 AM CDT) Anatomical Region Laterality Modality Abdomen, Pelvis Computed Tomogra phy 02/26/2015 10:0 1 AM CDT Narrative 02/26/2015 11:14 AM CDT 26-Feb-2015 10:01:00 ??Exam: CT Heart wo&w gating & 3D Indications: Fibrillation Atrial (AF) NOS ORIGINAL REPORT - 26-Feb-2015 11:14:00 EXAM: ??CT Heart without gating & with 3D CT angiogram of the heart, including independent workstation 3D reformations, performed for the pulmonary vein ablation protocol: COMPARISON: ? CT of the chest without IV contrast 02/28/2014 SUMMARY: 1. Conventional pulmonary vein anatomy with all veins remaining widely patent.. 2. No intracardiac mass or thrombus. FINDINGS: A pulmonary vein from the right middle lobe shares a common ostium with the superior pulmonary vein on the right. A right posterior superior pulmonary vein and a right posterior inferior pulmonary vein appeared to share a common ostium. Two pulmonary veins on the left. No pulmonary vein stenosis. No intracardiac mass or thrombus. Heart size is normal. Normal pericardial thickness. Stable ascending thoracic aorta measuring 40 mm in maximal diameter in the mid ascending aorta. Slight calcification at the aortic valve. Slight enlargement of the main pulmonary artery measuring 31 mm, previously measuring 30 mm on 02/28/2014. OTHER FINDINGS: ??Hiatal hernia. Electronically signed by: ?? Prakash Garcia MD [phone] 26-Feb-2015 11:14 ?Ofelia De La Cruz MD. ??[phone] 26-Feb-2015 11:14 Procedure Note Nathanael De La Cruz M.D. - 02/11/2018 26-Feb-2015 10:01:00 Exam: CT Heart wo&w gating & 3D Indications: Fibrillation Atrial (AF) NOS ORIGINAL REPORT - 26-Feb-2015 11:14:00 EXAM: CT Heart without gating & with 3D CT angiogram of the heart, including independent workstation 3Dreformations, performed for the pulmonary vein ablation protocol: COMPARISON: CT of the chest without IV contrast 02/28/2014 SUMMARY: 1. Conventional pulmonary vein anatomy with all veins remaining widelypatent.. 2. No intracardiac mass or thrombus. FINDINGS: A pulmonary vein from the right middle lobe shares a common ostium withthe superior pulmonary vein on the right. A right posterior superiorpulmonary vein and a right posterior inferior pulmonary vein appeared toshare a common ostium. Two pulmonary veins on the left. No pulmonary vein stenosis. No intracardiac mass or thrombus. Heart size is normal. Normal pericardial thickness. Stable ascendingthoracic aorta measuring 40 mm in maximal diameter in the mid ascendingaorta. Slight calcification at the aortic valve. Slight enlargement of themain pulmonary artery measuring 31 mm, previously measuring 30 mm on02/28/2014. OTHER FINDINGS: Hiatal hernia. Electronically signed by: Prakash Garcia MD [id number] 26-Feb-2015 11:14 Ofelia De La Cruz MD. [id number] 11:14 Ap Buckley M.D., Ph.D. [facility] CT PROCE LESLY * (ABNORMAL) Electrolyte (Chem 4) Panel (12/01/2014 5:16 AM [facility]) Only the most recent of9 resultswithin the time period is included. Chloride, S 105 98 - 107 MMOL/L [facility] HX Bicarbonate, P/S 24 22 - 29 MMOL/L [facility] eGFR-Black/Afri can Hong [place]er >60 >60 ML/MIN/BSA [facility] BUN (Blood Urea Nitrogen), S 16 6 - 21 MG/DL [facility] Sodium, S 142 135 - 145 MMOL/L [facility] Potassium, S 3.8 3.6 - 5.2 MMOL/L [facility] Creatinine 0.9 0.6 - 1.1 MG/DL [facility] eGFR Non-Black/Afric an [place]er >60 >60 ML/MIN/BSA [facility] Anion Gap 13 7 - 15 [facility] Glucose, S 145(H) 70 - 140 MG/DL [facility] 12/01/2014 5:16 AM [facility] 12/01/2014 5:16 AM [facility] Ap Buckley M.D., Ph.D. LAB BLOOD AD D-ON Performing Organization Address [facility] Co de Phone Number [facility] [address] * (ABNORMAL) ACT (Activated Clotting Time), POCT (11/30/2014 4:19 PM [facility]) Only the most recent of19 resultswithin the time period is included. Pathologist [facility] Activated Clotting Time, POCT 231(H) 84 - 139 SEC [facility] 11/30/2014 4:19 PM [facility] 11/30/2014 4:19 PM [facility] Historical Provider LAB POCT ORDERABLES - DEVICE Performing Organization Address [facility] de Phone Number [facility] [address] * Heart Rhythm Procedure - Ablation (11/30/2014 7:59 AM [facility]) Anatomical Region Laterality Modality Cardiac Electrop hysiology 11/30/2014 7:59 AM [facility] Historical Provider CV ELECTROPHYSIOLOGY PROCS * Echo Transesophageal (THU) (11/29/2014 12:20 PM [facility]) Anatomical Region Laterality Modality Echocardiography 11/29/2014 12:2 0 PM [facility] Ap Buckley M.D., Ph.D. CV ECHO PROC EDURES * ABORh, RBC (11/29/2014 8:25 AM [facility]) Only the most recent of5 resultswithin the time period is included. HXABO/RH BLOOD TYPE A Pos [facility] 11/29/2014 8:25 AM [facility] Historical Provider LAB BLOOD BANK TEST ORDERABLES Performing Organization Address City/[facility]/ZIP Co de Phone Number [facility] [address] * Antibody Screen, RBC (11/29/2014 8:25 AM [facility]) Only the most recent of4 resultswithin the time period is included. Antibody Screen Negative [facility] 11/29/2014 8:25 AM [facility] Historical Provider LAB BLOOD BANK TEST ORDERABLES Performing Organization Address City/[facility]/ZIP Co de Phone Number [facility] [address] * T4 (Thyroxine), Free (11/29/2014 7:47 AM [facility]) T4 (Thyroxine), Free, S 1.4 0.9 - 1.7 NG/DL [facility] 11/29/2014 7:47 AM [facility] 11/29/2014 7:47 AM [facility] Ap Buckley M.D., Ph.D. LAB BLOOD AD D-ON Performing Organization Address City/[facility] Co de Phone Number [facility] [address] * US Lower Extremity Veins (10/23/2014 5:51 PM [facility]) Anatomical Region Laterality Modality Vascular, Lower Extremity Ultras ound 10/23/2014 5:51 PM [facility] Impressions 10/24/2014 8:24 AM [facility] ??Negative for acute DVT. FINDINGS: The common femoral, upper deep femoral, femoral and popliteal veins are widely patent bilaterally, without thrombus. The posterior tibial and peroneal veins were segmentally visualized bilaterally and are normal where seen. The great saphenous veins bilaterally are patent and negative for thrombus. Electronically signed by: ?? Alli Vazquez MD [id number] 23-Oct-2014 19:33 I have reviewed the films/images and agree with the above interpretation. Electronically signed by: ?? Prakash Ritter ?? [phone] 24-Oct-2014 08:24 Narrative 10/24/2014 8:24 AM [facility] 23-Oct-2014 17:51:00 ??Exam: US Lower Extremity Veins Comp Indications: ED [id number] US Lower Extremity DVT-BOTH, leg swelling, palpitations, concern for DVT ORIGINAL REPORT - 23-Oct-2014 19:33:00 EXAM: ??US Extremity Duplex Scan Veins Complete with color and spectral Doppler analysis COMPARISON: ??Left lower extremity venous ultrasound 09/17/2011 and right lower extremity venous ultrasound 04/08/2007. Procedure Note Pastor Ritter M.D. - 02/11/2018 23-Oct-2014 17:51:00 Exam: US Lower Extremity Veins Comp Indications: ED [id number] US Lower Extremity DVT-BOTH, leg swelling,palpitations, concern for DVT ORIGINAL REPORT - 23-Oct-2014 19:33:00 EXAM: US Extremity Duplex Scan Veins Complete with color and spectralDoppler analysis COMPARISON: Left lower extremity venous ultrasound 09/17/2011 and rightlower extremity venous ultrasound 04/08/2007. IMPRESSION: Negative for acute DVT. FINDINGS: The common femoral, upper deep femoral, femoral and poplitealveins are widely patent bilaterally, without thrombus. The posteriortibial and peroneal veins were segmentally visualized bilaterally and arenormal where seen. The great saphenous veins bilaterally are patent andnegative for thrombus. Electronically signed by: Alli Vazquez MD [id number] 23-Oct-2014 19:33 I have reviewed the films/images and agree with the above interpretation. Electronically signed by: Prakash Ritter MD [id number] 24-Oct-2014 08:24 Fito Robb M.D. IMG US PROCEDURES * (ABNORMAL) APTT (Activated Partial Thromboplastin Time) (10/23/2014 4:11 PM [facility]) Only the most recent of2 resultswithin the time period is included. APTT, P 42(H) 28 - 38 SEC [facility] 10/23/2014 4:11 PM [facility] 10/23/2014 4:11 PM [facility] Fito Robb M.D. LAB BLOOD ADD-ON Performing Organization Address [facility] Co de Phone Number [facility] [address] * Rapid Strep A Screen (10/17/2014 8:52 AM [facility]) HXRapid Strep Confirmation POWERCHART HXPre Negative for Group A Strep by culture. POWERCHART HXFinal Negative for Group A Strep by culture. POWERCHART [facility] 10/17/2014 8:52 AM [facility] Historical Provider LAB MICROBIOLOGY - G ENERAL ORDERABLES Performing Organization Address [facility] de Phone Number POWERCHART * Automated Differential (10/08/2014 11:21 AM [facility]) Only the most recent of2 resultswithin the time period is included. Absolute Neutrophils 4.09 1.70 - 7.00 109L POWERCHART Lymphocytes 2.89 0.90 - 2.90 X109L POWERCHART Monocytes 0.62 0.30 - 0.90 X109L POWERCHART Eosinophils 0.24 0.05 - 0.50 X109L POWERCHART Absolute Basophil 0.04 0.00 - 0.30 X109L POWERCHART Blood 10/08/2014 11:2 1 AM [facility] 10/08/2014 11:21 AM [facility] Sumaya Parekh APRN, C.N.P., D.N.P., R .N. LAB BLOOD ADD-ON Performing Organization Address [facility] Co de Phone Number POWERCHART * DX Foot Ankle 3 Views (05/30/2014 7:44 AM CDT) Anatomical Region Laterality Modality Lower Extremity, Foot, Ankle N/A Rad iographic Imaging 05/30/2014 7:44 AM CDT Impressions 05/30/2014 8:01 AM CDT Demineralization. Left hindfoot valgus and pes planus. Mild scattered degenerative arthritis. Crossover toes of the 2nd on the 1st. Small Achilles' and plantar calcaneal spurs. Electronically signed by: ?? Alli Abdi MD [id number] 30-May-2014 08:01 Narrative 05/30/2014 8:01 AM CDT 30-May-2014 07:44:00 ??Exam: L Foot 3vw/STDG & Ankle 3vw/ST Indications: Pain Ankle NOS;Pain Foot NOS ORIGINAL REPORT - 30-May-2014 08:01:00 Left Foot 3vw/STDG & Ankle 3vw/STDG: Procedure Note Dionte Abdi M.D. - 02/11/2018 30-May-2014 07:44:00 Exam: L Foot 3vw/STDG & Ankle 3vw/ST Indications: Pain Ankle NOS;Pain Foot NOS ORIGINAL REPORT - 30-May-2014 08:01:00 Left Foot 3vw/STDG & Ankle 3vw/STDG: IMPRESSION: Demineralization. Left hindfoot valgus and pes planus. Mildscattered degenerative arthritis. Crossover toes of the 2nd on the 1st.Small Achilles' and plantar calcaneal spurs. Electronically signed by: Alli Abdi MD [id number] 30-May-2014 08:01 Jean OCHOA DIAGNOSTIC JAMEE GING PROCEDURES * Outside DX Skeletal (04/13/2014 11:22 AM CDT) Only the most recent of5 resultswithin the time period is included. 04/13/2014 11:2 2 AM CDT Addenda Addendum by ProviderBessy M.D. on 04/13/2014 11:22 AM CDT ODM^^^MCR XR Foot Left 3 or more views 04/13/2014 11:22:57 Historical Provider IMG DIAGNOSTIC IMAGI NG PROCEDURES [facility] [address] [place] [address] * DX Foot Left 3+ Views (04/13/2014 11:22 AM CDT) Anatomical Region Laterality Modality Lower Extremity, Foot, Muscu loskeletal RST LOS, Musculoskeletal ARZ LOS, Muskuloskeletal FLA LOS Left Radio graphic Imaging 04/13/2014 11:2 2 AM CDT Addenda Addendum by Bessy Gloria M.D. on 04/13/2014 11:22 AM CDT RAD^^^OW XR Foot Left 3 or more views 04/13/2014 11:22:57 Addendum by Bessy Gloria M.D. on 04/13/2014 11:22 AM CDT RAD^^^MA XR Foot Left 3 or more views 04/13/2014 11:22:00 Impressions 04/13/2014 11:25 AM CDT Slight deformity of the proximal metaphysis first phalanx second toe as above. Significance should be based on history and clinical findings Narrative 04/13/2014 11:25 AM CDT EXAM: XR Foot Left 3 or more views INDICATION: Left Foot Pain COMPARISON: None. FINDINGS: There is slight irregularity of the proximal metaphyseal region of the first phalanx of the second toe. This is of uncertain significance and could be related to old trauma or normal variant. Subacute or healing fracture not excluded. Clinical correlation suggested. No other significant findings Procedure Note Girish Slater D.O. / Bessy Gloria M.D. - 03/26/2017 EXAM: XR Foot Left 3 or more views INDICATION: Left Foot Pain COMPARISON: None. FINDINGS: There is slight irregularity of the proximal metaphyseal region of the first phalanx of the second toe. This is of uncertain significance and could be related to old trauma or normal variant. Subacute or healing fracture not excluded. Clinical correlation suggested. No other significant findings IMPRESSION: Slight deformity of the proximal metaphysis first phalanx second toe as above. Significance should be based on history and clinical findings Aithai See R.T.(R) IMG DIAGNOSTIC IMAGI NG PROCEDURES * Hx general Pathology Report (04/05/2014 1:46 PM CDT) Only the most recent of4 resultswithin the time period is included. 04/05/2014 1:46 PM CDT 04/05/2014 1:46 PM CDT Narrative [facility] - 04/05/2014 1:46 PM CDT ??04/05/2014 General Biopsy ?([id number]) ? Requested By: Leonardo Mckeon, B. Chir. ??[phone] ? Additional Physician: ??Robin Tong M.D. [phone] ? SLIDE DISPOSITION: ? DIAGNOSIS: ?? A. ??Colon, ascending, hepatic flexure, and transverse, endoscopic biopsy: ??Tubular adenoma, low grade dysplasia. ? B. ??Stomach, antrum, body, and incisura, endoscopic biopsy: ?? Fundic-type mucosa with PPI effect. ??Antral mucosa with mild chronic gastritis and no Helicobacter pylori (immunohistochemical stain). ?? One fragment of duodenal mucosa with chronic peptic-type duodenitis. ?? C. ??Stomach, anterior wall, endoscopic biopsy: ??Cystic fundic gland polyp. ?? 04/10/2014 16:03 Interpreted by: Helder Guerra ??Nayely Bagley [phone] Report electronically signed by Helder Guerra ??Nayely Bagley Transcribed by: [facility] 04/10/2014 15:44:00 ? TISSUE DESCRIPTION: [id number] A1B1C1 ?A. ??Received in formalin labeled with the patient's name and and labeled as colon-ascending, hepatic flexure, transverse are seven pale horton irregular soft tissue fragments, ranging from 0.3-0.7 cm in greatest dimension. The specimens are submitted en toto in cassette A1. ?? Grossed by LAS. ?? B. ??Received in formalin labeled with the patient's name and and labeled as stomach-antrum, body, incisura are seven pale horton irregular soft tissue fragments, ranging from 0.2-0.4 cm in greatest dimension. ?? The specimens are submitted en toto in cassette B1. ?? Grossed by LAS. ?? C. ??Received in formalin labeled with the patient's name and and labeled as stomach-anterior wall is a 0.4 x 0.3 x 0.1 cm pale horton irregular soft tissue fragment. The specimen is submitted en toto in cassette C1. Grossed by ORA. ? Part A: ??Colon, Ascending, Hepatic Flexure, Transverse, endoscopic biopsy ?1 Asd/HpFx/Trns ?? Part B: ??Stomach, Antrum, Body, Incisura, endoscopic biopsy ?1 Ant/Bd/Inc ?? Part C: ??Stomach, Anterior wall, endoscopic biopsy ?1 Ant Wall ?? GI Path ? Procedure Note 02/09/2018 04/05/2014 General Biopsy ([id number]) Requested By: Leonardo Mckeon, B. [facility]. [phone] Additional Physician: Robin Tong M.D. [phone] SLIDE DISPOSITION: DIAGNOSIS: A. Colon, ascending, hepatic flexure, and transverse, endoscopic biopsy: Tubular adenoma, low grade dysplasia. B. Stomach, antrum, body, and incisura, endoscopic biopsy: Fundic-type mucosa with PPI effect. Antral mucosa with mild chronic gastritis and no Helicobacter pylori (immunohistochemical stain). One fragment of duodenal mucosa with chronic peptic-type duodenitis. C. Stomach, anterior wall, endoscopic biopsy: Cystic fundic gland polyp. 04/10/2014 16:03 Interpreted by: Helder Bagley M.D. [phone] Report electronically signed by Helder Bagley M.D. Transcribed by: [facility] 04/10/2014 15:44:00 TISSUE DESCRIPTION: [id number] A1B1C1 A. Received in formalin labeled with the patient's name and and labeled as colon-ascending, hepatic flexure, transverse are seven pale horton irregular soft tissue fragments, ranging from 0.3-0.7 cm in greatest dimension. The specimens are submitted en toto in cassette A1. Grossed by LAS. Jones. Received in formalin labeled with the patient's name and and labeled as stomach-antrum, body, incisura are seven pale horton irregular soft tissue fragments, ranging from 0.2-0.4 cm in greatest dimension. The specimens are submitted en toto in cassette B1. Grossed by LAS. Guerra. Received in formalin labeled with the patient's name and and labeled as stomach-anterior wall is a 0.4 x 0.3 x 0.1 cm pale horton irregular soft tissue fragment. The specimen is submitted en toto in cassette C1. Grossed by ORA. Part A: Colon, Ascending, Hepatic Flexure, Transverse, endoscopic biopsy 1 Asd/HpFx/Trns Part B: Stomach, Antrum, Body, Incisura, endoscopic biopsy 1 Ant/Bd/Inc Part C: Stomach, Anterior wall, endoscopic biopsy 1 Ant Wall GI Path Dominique Woods LAB PATHOL OGY/CYTOLOGY ORDERABLES Performing Organization Address [facility]/ZIP Co de Phone Number [facility] [address] * Colonoscopy (04/05/2014 12:00 PM CDT) 04/05/2014 12:0 0 PM CDT Dominique Woods GI PROCEDU RE ORDERABLES Performing Organization Address City/[facility]/ZIP Co de Phone Number [address] * Echo Transthoracic (TTE) (02/27/2014 2:49 PM CDT) Anatomical Region Laterality Modality Echocardiography 02/27/2014 2:49 PM CDT Ap Buckley M.D., Ph.D. CV ECHO PROC EDURES * Pernicious Anemia [place] (01/22/2014 10:37 AM CDT) Vitamin B12 Assay, S 628 180 - 914 NG/L [facility] 01/22/2014 10:3 7 AM CDT 01/22/2014 10:37 AM CDT Dominique Woods LAB BLOOD NON ADD-ON Performing Organization Address City/[facility]/ZIP Co de Phone Number [facility] [address] [place] [address], [facility] * 25-Hydroxyvitamin D2 and D3 (01/22/2014 10:37 AM CDT) 25-Hydroxy D Total 27 SeeComment NG/ML [facility] Comment: Reference Range: ? 25-HYDROXY D TOTAL (D2+D3) Optimum levels in the healthy ? population are 20-50, patients with bone disease may ? benefit from higher levels within this range. ? 25-Hydroxy D2 <4.0 NG/ML [facility] 25-Hydroxy D3 27 NG/ML [facility] 01/22/2014 10:3 7 AM CDT 01/22/2014 10:37 AM CDT Dominique Woods LAB BLOOD ADD-ON Performing Organization Address City/[facility]/ZIP Co de Phone Number [facility] [address] * Alkaline Phosphatase (01/22/2014 10:37 AM CDT) Only the most recent of2 resultswithin the time period is included. Alkaline Phosphatase, S 77 55 - 142 U/L [facility] 01/22/2014 10:3 7 AM CDT 01/22/2014 10:37 AM CDT Dominique Woods LAB BLOOD ADD-ON Performing Organization Address City/[facility] de Phone Number [facility] [address] * Bilirubin, Direct (01/22/2014 10:37 AM CDT) Bilirubin, Direct, S 0.1 0.0 - 0.3 MG/DL [facility] 01/22/2014 10:3 7 AM CDT 01/22/2014 10:37 AM CDT Dominique Woods LAB BLOOD ADD-ON Performing Organization Address City/[facility]/ZIP Co de Phone Number [facility] [address] * Bilirubin, Total (01/22/2014 10:37 AM CDT) Only the most recent of2 resultswithin the time period is included. Bilirubin, Total, S 0.5 0.1 - 1.0 MG/DL [facility] 01/22/2014 10:3 7 AM CDT 01/22/2014 10:37 AM CDT Dominique Woods LAB BLOOD ADD-ON Performing Organization Address City/[facility]/ZIP Co de Phone Number [facility] [address] * Albumin (01/22/2014 10:37 AM CDT) Only the most recent of3 resultswithin the time period is included. Albumin, S 4.4 3.5 - 5.0 G/DL [facility] 01/22/2014 10:3 7 AM CDT 01/22/2014 10:37 AM CDT Dominique Woods LAB BLOOD ADD-ON Performing Organization Address City/[facility] Co de Phone Number [facility] [address] * US Abdomen Complete (01/16/2014 11:00 AM [facility]) Anatomical Region Laterality Modality Abdomen N/A Ultrasound 01/16/2014 11:0 0 AM [facility] Narrative 01/16/2014 11:42 AM [facility] 16-Jan-2014 11:00:00 ??Exam: US Abdomen Complete Indications: Nausea NOS ORIGINAL REPORT - 16-Jan-2014 11:42:00 Abdominal Ultrasound: ?? Liver:............... 0.9 cm uniformly echogenic lesion in the right hepatic lobe, which likely represents a benign cavernous hemangioma. Otherwise normal. Spleen:..............Normal. 9.2 cm in length. Gallbladder:.........Normal. Intrahepatic ducts...Not dilated. Common Duct:........ Not dilated. Pancreas:............ Normal where visualized. Right Kidney:........Normal. 10.5 cm in length Left Kidney:.........Normal. 11.5 cm in length. ?? Aorta:...............Normal caliber. ?? IVC..................Normal where seen. Electronically signed by: ?? Cortney Foreman MD [phone] 16-Jan-2014 11:42 ?Aileen Novoa MD [phone] 16-Jan-2014 11:42 Procedure Note Brennon Novoa M.D. - 02/11/2018 16-Jan-2014 11:00:00 Exam: US Abdomen Complete Indications: Nausea NOS ORIGINAL REPORT - 16-Jan-2014 11:42:00 Abdominal Ultrasound: Liver:............... 0.9 cm uniformly echogenic lesion in the righthepatic lobe, which likely represents a benign cavernous hemangioma.Otherwise normal. Spleen:..............Normal. 9.2 cm in length. Gallbladder:.........Normal. Intrahepatic ducts...Not dilated. Common Duct:........ Not dilated. Pancreas:............ Normal where visualized. Right Kidney:........Normal. 10.5 cm in length Left Kidney:.........Normal. 11.5 cm in length. Aorta:...............Normal caliber. IVC..................Normal where seen. Electronically signed by: Cortney Foreman MD [phone] 16-Jan-2014 11:42 Aileen Novoa MD [id number] 11:42 Telly Gaines M.D. [facility] US PROCEDURES * Troponin T, 5th Generation (12/26/2013 5:34 AM [facility]) Troponin T, S <0.010 -<0.01 ng/mL HX [place] CONVERSION 12/26/2013 5:34 AM [facility] 12/26/2013 5:34 AM [facility] Baron Chavis M.D. LAB BLOOD ADD-ON HX [place] CONVERSION * ECG 12 Lead with rhythm strip (12/26/2013 12:00 AM [facility]) 12/26/2013 Historical Provider ECG ORDERABLES HX [place] CONVERSION * Nucleated RBC (12/25/2013 10:18 AM [facility]) Nucleated RBC 0.0 /100 WBC HX [place] CONVERSION 12/25/2013 10:1 8 AM [facility] 12/25/2013 10:18 AM [facility] Historical Provider LAB BLOOD NON ADD-ON Performing Organization Address [facility] Co de Phone Number HX [place] CONVERSION * (ABNORMAL) Electrolyte Panel (12/25/2013 10:18 AM [facility]) HCO3, Venous 25 22 - 29 mmol/L HX [place] CONVERSION Chloride, S 106 100 - 108 mmol/L HX [place] CONVERSION Anion Gap 11 7 - 15 HX [place] CONVERSION Potassium, S 3.7(L) 3.8 - 5.0 mmol/L HX [place] CONVERSION Sodium, S 142 135 - 145 mmol/L HX [place] CONVERSION 12/25/2013 10:1 8 AM [facility] 12/25/2013 10:18 AM [facility] Alexandru Zuniga D.O. LAB BLOOD ADD-ON Performing Organization Address [facility]/ZIP Co de Phone Number HX [place] CONVERSION * Protein, Total (12/25/2013 10:18 AM [facility]) Protein, Total, S 7.1 6.3 - 7.9 g/dL HX [place] CONVERSION 12/25/2013 10:1 8 AM [facility] 12/25/2013 10:18 AM [facility] Alexandru Zuniga D.O. LAB BLOOD ADD-ON HX [place] CONVERSION * EP ABL (11/24/2013 9:02 AM [facility]) Anatomical Region Laterality Modality Other 11/24/2013 9:02 AM [facility] Historical Provider IMG NON RAD IMAGING PROCEDURES * Heart Rhythm Procedure - Ablation (11/24/2013 7:47 AM [facility]) Anatomical Region Laterality Modality Cardiac Electrop hysiology 11/24/2013 7:47 AM [facility] Ap Buckley M.D., Ph.D. CV ELECTROPH YSIOLOGY PROCS * Echo Transesophageal (THU) (11/23/2013 1:21 PM [facility]) Anatomical Region Laterality Modality Echocardiography 11/23/2013 1:21 PM [facility] Ap Buckley M.D., Ph.D. CV ECHO PROC EDURES * Echo Transthoracic (TTE) (11/23/2013 9:23 AM [facility]) Anatomical Region Laterality Modality Echocardiography 11/23/2013 9:23 AM [facility] Ap Buckley M.D., Ph.D. CV ECHO PROC EDURES * PUL Home Overnight Oximetry (10/19/2013 3:16 PM [facility]) 10/19/2013 3:16 PM [facility] Shawn Gutierrez M.D., M.S. PFT ORDERA BLES [facility] [address] * Echo Transesophageal (THU) (09/13/2013 3:40 PM CDT) Anatomical Region Laterality Modality Echocardiography 09/13/2013 3:40 PM CDT Historical Provider CV ECHO PROCEDURES * Fungal Smear (06/27/2013 1:38 PM CDT) Pathologist [facility] HXKOH S/H/N POWERCHART HXFinal No fungal elements seen. POWERCHART HXFinal Reference: No fungal elements seen. POWERCHART Skin 06/27/2013 1:38 PM CDT Sumaya Farooq Parekh Mari SHELTON.N.P., Darrel.N.P., R .N. LAB MICROBIOLOGY - GENERAL ORDERABLES POWERCHART * MR Chest Angiogram without and with IV Contrast (05/31/2013 9:23 AM CDT) Anatomical Region Laterality Modality Chest N/A Magnetic Resonan ce 05/31/2013 9:23 AM CDT Narrative 05/31/2013 11:57 AM CDT 31-May-2013 09:23:00 ??Exam: MRA/v Chest Indications: Fibrillation Atrial NOS ORIGINAL REPORT - 31-May-2013 11:57:00 MRA chest without and withintravenous contrast: SUMMARY: 1. Conventional pulmonary vein anatomy. 2 right and 2 left pulmonary veins enter the left atrium at their expected locations. 2. Normal left ventricle volume and function. No abnormal delayed myocardial enhancement. FINDINGS: There are 2 pulmonary veins bilaterally which enter the left atrium at their expected locations. The right middle lobe vein enters the right upper lobe vein prior to its entry into the left atrium. No accessory pulmonary vein. Normal volumes and systolic function of the left ventricle. No abnormal delayed myocardial enhancement. MEASUREMENTS: . ?MEASUREMENTS Series 12 ? LVM-SAX FIESTA Left Ventricle ? Results ? Indices ? Normal BSA Index . ? (Age: 61-70) . ??LV End Diastolic Volume: ? 136 ml ? 64 ml/m2 ? 45-86 . ??LV End Systolic Volume: ? 47 ml ? 22 ml/m2 ? 14-38 . ??LV Stroke Volume: ? 89 ml ? 42 ml/m2 ? 23-57 . ??LV Ejection Fraction: ? 66 % ? 53- 84 . ??LV End Diastolic Mass: ? 119 g ?56 g/m2 ?55-100 . Series 12 ? LVM-SAX FIESTA Right Ventricle ?Results ?Indices ? Normal BSA Index . ?(Age: 60-69) . ??RV End Diastolic Volume: ?136 ml ?64 ml/m2 ? 49-86 . ??RV End Systolic Volume: ?59 ml ?28 ml/m2 ? 8-34 . ??RV Stroke Volume: ?77 ml 36 ml/m2 ? 34-58 . ??RV Ejection Fraction: ?57 % ?57- 81 .9NaCl, 2.5 milliliter .9NaCl, 40 milliliter Electronically signed by: ?? Reed Mauricio MARIANNE [id number] 31-May-2013 11:57 ?Fredrick Christian MD. ??[phone] 31-May-2013 11:57 Procedure Note Jose A Christian M.D. - 02/11/2018 31-May-2013 09:23:00 Exam: MRA/v Chest Indications: Fibrillation Atrial NOS ORIGINAL REPORT - 31-May-2013 11:57:00 MRA chest without and withintravenous contrast: SUMMARY: 1. Conventional pulmonary vein anatomy. 2 right and 2 left pulmonary veinsenter the left atrium at their expected locations. 2. Normal left ventricle volume and function. No abnormal delayedmyocardial enhancement. FINDINGS: There are 2 pulmonary veins bilaterally which enter the left atrium attheir expected locations. The right middle lobe vein enters the rightupper lobe vein prior to its entry into the left atrium. No accessorypulmonary vein. Normal volumes and systolic function of the left ventricle. No abnormaldelayed myocardial enhancement. MEASUREMENTS: . MEASUREMENTS Series 12 LVM-SAX FIESTA Left Ventricle Results Indices Normal BSA Index . (Age: 61-70) . LV End Diastolic Volume: 136 ml 64 ml/m2 45-86 . LV End Systolic Volume: 47 ml 22 ml/m2 14-38 . LV Stroke Volume: 89 ml 42 ml/m2 23-57 . LV Ejection Fraction: 66 % 53-84 . LV End Diastolic Mass: 119 g 56 g/m2 55-100 . Series 12 LVM-SAX FIESTA Right Ventricle Results Indices Normal BSA Index . (Age: 60-69) . RV End Diastolic Volume: 136 ml 64 ml/m2 49-86 . RV End Systolic Volume: 59 ml 28 ml/m2 8-34 . RV Stroke Volume: 77 ml 36 ml/m2 34-58 . RV Ejection Fraction: 57 % 57-81 .9NaCl, 2.5 milliliter .9NaCl, 40 milliliter Electronically signed by: Reed VENTURA [id number] 31-May-2013 11:57 Fredrick Christian [phone] 31-May-2013 11:57 Ap Buckley M.D., Ph.D. IMG MRI PROC EDURES * PUL Home Overnight Oximetry (05/16/2013 11:00 PM CDT) 05/16/2013 11:0 0 PM CDT Garret Banks M.D. PFT ORDERABLES [facility] [address] * PUL Home Overnight Oximetry (05/11/2013 12:13 PM CDT) 05/11/2013 12:1 3 PM CDT Telly Baldwin M.D. PFT ORDERABLES Performing Organization Address City/State/[facility] Co de Phone Number [facility] [address] * DX Finger 2+ Views (03/29/2013 11:23 AM CDT) Only the most recent of2 resultswithin the time period is included. Anatomical Region Laterality Modality Upper Extremity, Fingers N/A Radiogr aphic Imaging 03/29/2013 11:2 3 AM CDT Narrative 03/29/2013 11:29 AM CDT 29-Mar-2013 11:23:00 ??Exam: R Thumb 3vw AP/Lat/Obl Indications: DJD First Carpal Metacarpal Joint ORIGINAL REPORT - 29-Mar-2013 11:29:00 Right Thumb 3vw AP/Lat/Obl: Since 02-17-12, there have been post-operative changes of right 1st CMC joint suspension arthroplasty and trapeziectomy. Tiny bone fragments within the operative bed. Degenerative changes right 1st MCP and IP joints. Electronically signed by: ?? Annalisa Zepeda MD [phone] ([id number]) 29-Mar-2013 11:29 Procedure Note Morgan Zepeda M.D. - 02/11/2018 29-Mar-2013 11:23:00 Exam: R Thumb 3vw AP/Lat/Obl Indications: DJD First Carpal Metacarpal Joint ORIGINAL REPORT - 29-Mar-2013 11:29:00 Right Thumb 3vw AP/Lat/Obl: Since 02-17-12, there have been post-operative changes of right 1st CMCjoint suspension arthroplasty and trapeziectomy. Tiny bone fragmentswithin the operative bed. Degenerative changes right 1st MCP and IPjoints. Electronically signed by: Annalisa Zepeda MD [id number] ([id number]) 29-Mar-2013 11:29 Helder Venegas M.D. IMG DIAGNOSTIC I MAGING PROCEDURES * Exercise ECG (02/16/2013 8:04 AM CDT) 02/16/2013 8:04 AM CDT Lukas Pendleton M.D. CV STRESS PROCEDURE S [facility] [address] [place], [place] [address] [[email or web address]] * Phosphorus Inorganic (02/16/2013 4:41 AM CDT) Phosphorus (Inorganic), S 3.9 2.5 - 4.5 MG/DL [facility] 02/16/2013 4:41 AM CDT 02/16/2013 4:41 AM CDT Mickey Jenkins M.D., Ph.D. LAB BLOOD ADD-ON Performing Organization Address City/[facility]/ZIP Co de Phone Number [facility] [address] * pH (02/13/2013 11:00 AM CDT) pH 7.41 7.35 - 7.45 PH [facility] 02/13/2013 11:0 0 AM CDT 02/13/2013 11:00 AM CDT Historical Provider LAB HISTORICAL ORDER S [facility] [address] * Calcium, Ionized (02/13/2013 11:00 AM CDT) Calcium, Ionized, B 5.00 4.65 - 5.30 MG/DL [facility] 02/13/2013 11:0 0 AM CDT 02/13/2013 11:00 AM CDT Historical Provider LAB BLOOD NON ADD-ON [facility] [address] * PHYSICAL MEDICINE AND REHAB IMAGE EXAM (02/08/2013 7:35 AM CDT) Only the most recent of2 resultswithin the time period is included. Anatomical Region Laterality Modality Other 02/08/2013 7:35 AM CDT Addenda Addendum by ProviderBessy M.D. on 02/08/2013 7:35 AM CDT PMR^^^MCR Guided Injection 02/08/2013 07:35:26 Historical Provider IMG NON RAD IMAGING PROCEDURES * DX Pelvis 1-2 Views (01/12/2013 10:35 AM [facility]) Anatomical Region Laterality Modality Pelvis N/A Radiographic Jamee ging 01/12/2013 10:3 5 AM [facility] Narrative 01/12/2013 10:45 AM [facility] 12-Jan-2013 10:35:00 ??Exam: B Pelvis STDG w Lat Hip Indications: Pain Hip Chetan ORIGINAL REPORT - 12-Jan-2013 10:45:00 Demineralization. 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 Lower lumbar facet arthropathy. Mesh repair within the pelvis. Electronically signed by: ?? Alli Abdi MD [phone] 12-Jan-2013 10:45 Procedure Note Dionte Abdi M.D. - 02/11/2018 12-Jan-2013 10:35:00 Exam: B Pelvis STDG w Lat Hip Indications: Pain Hip Chetan ORIGINAL REPORT - 12-Jan-2013 10:45:00 Demineralization. 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 Mesh repair within the pelvis. Electronically signed by: Alli Abdi MD [phone] 12-Jan-2013 10:45 Harini Pinedo M.D. IMG DIAGNOSTIC I MAGING PROCEDURES * Antibody to Extractable Nuclear Antigen Evaluation (01/05/2013 1:56 PM [facility]) SS-A/Ro Ab, IgG, S <0.2 <1.0 (Negative) U [facility] SS-B/La Ab, IgG, S <0.2 <1.0 (Negative) U [facility] Scl 70 Ab, IgG, S <0.2 <1.0 (Negative) U [facility] Vida 1 Ab, IgG, S <0.2 <1.0 (Negative) U [facility] Sm Ab, IgG, S <0.2 <1.0 (Negative) U [facility] AUTOTRANSFUSIONIST Ab, IgG, S 0.6 <1.0 (Negative) U [facility] 01/05/2013 1:56 PM [facility] 01/05/2013 1:56 PM [facility] Harini Pinedo M.D. LAB BLOOD ADD-ON Performing Organization Address City/[facility]/ZIP Co de Phone Number [facility] [address] * Cyclic Citrullinated Peptide Antibodies, IgG (01/05/2013 1:56 PM [facility]) Cyclic Citrullinated Peptide Ab, S <15.6 <20.0 (Negative ) U [facility] 01/05/2013 1:56 PM [facility] 01/05/2013 1:56 PM [facility] Harini Pinedo M.D. LAB BLOOD ADD-ON Performing Organization Address City/[facility]/ZIP Co de Phone Number [facility] [address] * CK (Creatine Kinase) (01/05/2013 1:56 PM [facility]) Creatine Kinase (CK), S 97 38 - 176 U/L [facility] 01/05/2013 1:56 PM [facility] 01/05/2013 1:56 PM [facility] Harini Pinedo M.D. LAB BLOOD ADD-ON [facility] [address] [place] [address], [place] * MR Pelvis without IV Contrast (12/20/2012 4:22 PM [facility]) Anatomical Region Laterality Modality Pelvis N/A Magnetic Resonan ce 12/20/2012 4:22 PM [facility] Narrative 12/20/2012 4:48 PM [facility] 20-Dec-2012 16:22:00 ??Exam: MRI PELVIS wo Indications: Arthropathy Hip ORIGINAL REPORT - 20-Dec-2012 16:48:00 MRI the pelvis without contrast. Comparison is to an x-ray from 12/20/2012. The focal area of deformity of the right proximal femur on the xray corresponds to a focus of bone marrow edema on the femoral head. There is joint space narrowing in this region with a labral tear with a small paralabral cyst, making this most consistent with focal degenerative change. No evidence for fracture. Degenerative changes in the left hip and in the lower lumbar spine. No fracture is seen of the pelvic bones. Increased T2 signal adjacent to the right greater trochanter with partial tearing of the gluteus medius insertion which may be seen in trochanteric bursitis normal appearing lymph nodes in the groin regions. Electronically signed by: ?? Jocelyne Garrison ?? [phone] 20-Dec-2012 16:48 Procedure Note Jocelyne Garrison M.D. - 02/11/2018 20-Dec-2012 16:22:00 Exam: MRI PELVIS wo Indications: Arthropathy Hip ORIGINAL REPORT - 20-Dec-2012 16:48:00 MRI the pelvis without contrast. Comparison is to an x-ray from 12/20/2012.The focal area of deformity of the right proximal femur on the xraycorresponds to a focus of bone marrow edema on the femoral head. There isjoint space narrowing in this region with a labral tear with a smallparalabral cyst, making this most consistent with focal degenerativechange. No evidence for fracture. Degenerative changes in the left hip andin the lower lumbar spine. No fracture is seen of the pelvic bones.Increased T2 signal adjacent to the right greater trochanter with partialtearing of the gluteus medius insertion which may be seen in trochantericbursitis normal appearing lymph nodes in the groin regions. Electronically signed by: Jocelyne Garrison MD [phone] 20-Dec-2012 16:48 Charisma Santiago M.D. IMG MRI PROCEDURES * DX Sacroiliac Joints 3+ Views (12/20/2012 12:19 PM [facility]) Anatomical Region Laterality Modality Sacral Spine N/A Radiographic Jamee ging 12/20/2012 12:1 9 PM [facility] Narrative 12/20/2012 12:49 PM [facility] 20-Dec-2012 12:19:00 ??Exam: Pelvis w/Sacro-Iliac obl. 3vw Indications: right groin pain ORIGINAL REPORT - 20-Dec-2012 12:49:00 Pelvis w/Sacro-Iliac obl. 3vw: Degenerative arthritis both SI joints, pubic symphysis, both hips and visualized lumbar spine. Focal deformity involving the cortex of the right femoral head laterally. Although this could be due to degenerative change, the possibility of an osteochondral fracture or subchondral insufficiency fracture cannot be excluded. If indicated, MRI could be helpful for further evaluation. Osteopenia. Surgical clips and mesh markers in the pelvis. Electronically signed by: ?? Prakash Sebastian MD. ??[phone] 20-Dec-2012 12:49 Procedure Note Lee Ann Sebastian M.D. - 02/11/2018 20-Dec-2012 12:19:00 Exam: Pelvis w/Sacro-Iliac obl. 3vw Indications: right groin pain ORIGINAL REPORT - 20-Dec-2012 12:49:00 Pelvis w/Sacro-Iliac obl. 3vw: Degenerative arthritis both SI joints, pubic symphysis, both hips andvisualized lumbar spine. Focal deformity involving the cortex of the rightfemoral head laterally. Although this could be due to degenerative change,the possibility of an osteochondral fracture or subchondral insufficiencyfracture cannot be excluded. If indicated, MRI could be helpful forfurther evaluation. Osteopenia. Surgical clips and mesh markers in thepelvis. Electronically signed by: Prakash Sebastian MD. [id number] 20-Dec-2012 12:49 Telly Gaines M.D. IMG DIAGNOSTIC JAMEE GING PROCEDURES * FL Esophagram (10/11/2012 1:23 PM [facility]) Only the most recent of2 resultswithin the time period is included. Anatomical Region Laterality Modality Gastro Intestinal N/A Radiographic I maging 10/11/2012 1:23 PM [facility] Impressions 10/11/2012 1:34 PM [facility] Small sliding hiatal hernia and high level spontaneous gastroesophageal reflux. FINDINGS: Normal swallowing mechanism. Esophageal peristalsis is intact. There is a small sliding hiatal hernia and high level spontaneous gastroesophageal reflux. A 13 mm barium tablet passed through the esophagus without difficulty. [id number] Electronically signed by: ?? Ian Zepeda MD [phone] 11-Oct-2012 13:34 Narrative 10/11/2012 1:34 PM [facility] 11-Oct-2012 13:23:00 ??Exam: GI-Esophagram Indications: Dysphagia NOS ORIGINAL REPORT - 11-Oct-2012 13:34:00 EXAM: Double contrast esophagram. CONCLUSION/ Procedure Note Ian Zepeda M.D. - 02/12/2018 11-Oct-2012 13:23:00 Exam: GI-Esophagram Indications: Dysphagia NOS ORIGINAL REPORT - 11-Oct-2012 13:34:00 EXAM: Double contrast esophagram. CONCLUSION/IMPRESSION: Small sliding hiatal hernia and high levelspontaneous gastroesophageal reflux. FINDINGS: Normal swallowing mechanism. Esophageal peristalsis is intact.There is a small sliding hiatal hernia and high level spontaneousgastroesophageal reflux. A 13 mm barium tablet passed through theesophagus without difficulty. [id number] Electronically signed by: Ian Zepeda MD [phone] 11-Oct-2012 13:34 Link Huerta III, M.D. IMG FLUOROSCOPY PROCEDURES * DX Hip to Ankle Standing (09/12/2012 1:34 PM CDT) Only the most recent of4 resultswithin the time period is included. Anatomical Region Laterality Modality Lower Extremity, Hip, Femur, Knee, TibFib, Ankle N/A Radiographic Imaging 09/12/2012 1:34 PM CDT Narrative 09/12/2012 1:37 PM CDT 12-Sep-2012 13:34:00 ??Exam: Lower Extremity Hip to ankle Indications: Pain Knee Left ORIGINAL REPORT - 12-Sep-2012 13:37:00 Left Knee 3vw/STDG w/Patella: Left TKA with patellar resurfacing. Components appear well seated. Tiny left knee joint effusion or synovitis. ?? Full-length view of both lower extremities obtained for orthopedic measurement purposes. Tricompartmental degenerative arthritis right knee with slight lateral subluxation of the patella. 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 Scattered osteopenia. Electronically signed by: ?? Annalisa Zepeda MD [phone] ([id number]) 12-Sep-2012 13:37 Procedure Note Morgan Zepeda M.D. - 02/12/2018 12-Sep-2012 13:34:00 Exam: Lower Extremity Hip to ankle Indications: Pain Knee Left ORIGINAL REPORT - 12-Sep-2012 13:37:00 Left Knee 3vw/STDG w/Patella: Left TKA with patellar resurfacing. Components appear well seated. Tinyleft knee joint effusion or synovitis. Full-length view of both lower extremities obtained for orthopedicmeasurement purposes. Tricompartmental degenerative arthritis right kneewith slight lateral subluxation of the patella. Degenerative arthritislower lumbar spine and both SI joints. Scattered osteopenia. Electronically signed by: Annalisa Zepeda MD [phone] ([id number]) 12-Sep-2012 13:37 Jose OCHOA DIAGNOSTIC IMAGI NG PROCEDURES * BI Breast Screening (08/23/2012 12:57 PM CDT) Only the most recent of11 resultswithin the time period is included. Anatomical Region Laterality Modality Breast N/A Mammography 08/23/2012 12:5 7 PM CDT Impressions 08/23/2012 2:10 PM CDT NEGATIVE There is no mammographic evidence of malignancy. ?? RECOMMENDATION: A 1 year screening mammogram is recommended. ?? The patient will receive a letter notifying her of the results. ?? Prakash Mathur M.D. ? dac/penrad:08/23/2012 14:09:19 ?? letter sent: 1S/2S - Negative Screen ?? Mammogram BI-RADS: 1 Negative Electronically signed by: ?? Prakash Mathur ?? 23-Aug-2012 14:10 Narrative 08/23/2012 2:10 PM CDT 23-Aug-2012 12:57:00 ??Exam: B MG /Screening Exam Indications: Mammogram Screening Breast Ca ORIGINAL REPORT - 23-Aug-2012 14:10:00 EXAM: BILATERAL DIGITAL SCREENING MAMMOGRAM WITH CAD: 08/23/2012 HISTORY/INDICATION: Mammogram Screening Breast Ca. ?? Current study was also evaluated with a Computer Aided Detection (CAD) system. ?? COMPARISON: ??Comparison is made to prior exams. ?? DENSITY: ??(D2) There are scattered fibroglandular densities in both ?? breasts. FINDINGS: ??No significant masses, calcifications, or other findings ?? are seen in either breast. ?? Procedure Note Balbir Mathur M.D. - 02/12/2018 23-Aug-2012 12:57:00 Exam: B MG /Screening Exam Indications: Mammogram Screening Breast Ca ORIGINAL REPORT - 23-Aug-2012 14:10:00 EXAM: BILATERAL DIGITAL SCREENING MAMMOGRAM WITH CAD: 08/23/2012 HISTORY/INDICATION: Mammogram Screening Breast Ca. Current study was also evaluated with a Computer Aided Detection (CAD) system. COMPARISON: Comparison is made to prior exams. DENSITY: (D2) There are scattered fibroglandular densities in both breasts. FINDINGS: No significant masses, calcifications, or other findings are seen in either breast. IMPRESSION: NEGATIVE There is no mammographic evidence of malignancy. RECOMMENDATION: A 1 year screening mammogram is recommended. The patient will receive a letter notifying her of the results. Prakash Mathur M.D. dac/penrad:08/23/2012 14:09:19 letter sent: 1S/2S - Negative Screen Mammogram BI-RADS: 1 Negative Electronically signed by: Prakash Mathur MD 23-Aug-2012 14:10 Telly Gaines M.D. IMG BI PROCEDURES * HSV/VZV Direct Smear (08/19/2012 3:11 PM CDT) Source lower lip POWERCHART HXHSV/VZV Result-[place] See Comment Not applicable POWERCHART Comment: Negative for Herpes simplex type I and II DNA and Varicella zoster DNA. Analyte Specific Reagent. This test was developed and its performance characteristics determined by [facility]. It has not been cleared or approved by the U.S. Food and Drug Administration. Test Performed by: [facility] - [address] [address] Vibrator Operator: Saad Coleman III, M.D. [place] Review 08/19/2012 3:11 PM CDT Sumaya Parekh APRN, C.N.P., D.N.P., R .N. LAB MICROBIOLOGY - GENERAL ORDERABLES POWERCHART * DX Knee 2 Views (02/26/2012 1:41 PM CDT) Only the most recent of6 resultswithin the time period is included. Anatomical Region Laterality Modality Lower Extremity, Knee N/A Radiograph ic Imaging 02/26/2012 1:41 PM CDT Narrative 02/26/2012 1:44 PM CDT 26-Feb-2012 13:41:00 ??Exam: L Knee 2vw/STDG AP/Lat Indications: Knee arthroplasty Total S/p ORIGINAL REPORT - 26-Feb-2012 13:44:00 Left Knee 2vw/STDG AP/Lat: Left TKA. Components appear well seated. Degenerative arthritis right knee. ?? Full-length view of both lower extremities obtained for orthopedic measurement purposes. Degenerative changes lower lumbar spine and both SI joints. Surgical clips in the pelvis. Electronically signed by: ?? Marycruz RUBIO [phone] ([id number]) 26-Feb-2012 13:44 Procedure Note Raul Monk M.D. - 02/12/2018 26-Feb-2012 13:41:00 Exam: L Knee 2vw/STDG AP/Lat Indications: Knee arthroplasty Total S/p ORIGINAL REPORT - 26-Feb-2012 13:44:00 Left Knee 2vw/STDG AP/Lat: Left TKA. Components appear well seated. Degenerative arthritis rightknee. Full-length view of both lower extremities obtained for orthopedicmeasurement purposes. Degenerative changes lower lumbar spine and both SIjoints. Surgical clips in the pelvis. Electronically signed by: Marycruz RUBIO [phone] ([id number]) 26-Feb-2012 13:44 Jose Chung M.D. IMG DIAGNOSTIC IMAGI NG PROCEDURES * DX Shoulder 2+ Views (02/17/2012 5:06 PM CDT) Anatomical Region Laterality Modality Upper Extremity, Shoulder N/A Radiog raphic Imaging 02/17/2012 5:06 PM CDT Narrative 02/18/2012 7:39 AM CDT 17-Feb-2012 17:06:00 ??Exam: R Shoulder 2 or 3vw w/Axillary Indications: Fx Clavicle Closed ORIGINAL REPORT - 18-Feb-2012 07:39:00 Right Shoulder 2 or 3vw w/Axillary: Slightly displaced ununited fracture of the distal right clavicle looks old or subacute. Some reactive sclerosis has developed on both sides of the fracture since 12/27/2011, but no evidence of bony union. Electronically signed by: ?? Berta Dior MD ??[phone] 18-Feb-2012 07:39 Procedure Note Papi Dior M.D. - 02/12/2018 17-Feb-2012 17:06:00 Exam: R Shoulder 2 or 3vw w/Axillary Indications: Fx Clavicle Closed ORIGINAL REPORT - 18-Feb-2012 07:39:00 Right Shoulder 2 or 3vw w/Axillary: Slightly displaced ununited fracture of the distal right clavicle looksold or subacute. Some reactive sclerosis has developed on both sides ofthe fracture since 12/27/2011, but no evidence of bony union. Electronically signed by: Berta Dior MD [phone] 18-Feb-2012 07:39 Joaquín Parekh D.O. IMG DIAGNOSTIC JAMEE GING PROCEDURES * DX Clavicle Serendipity 1 View (12/27/2011 7:16 PM [facility]) Anatomical Region Laterality Modality Upper Extremity, Clavicle N/A Radiog raphic Imaging 12/27/2011 7:16 PM [facility] Narrative 12/27/2011 7:44 PM [facility] 27-Dec-2011 19:16:00 ??Exam: R Clavicle 1vw Serendipity Indications: Pain; serendipity view of the right clavicle ORIGINAL REPORT - 27-Dec-2011 19:24:00 Right Clavicle 1vw Serendipity: Again seen is widening of the right AC joint, acute fracture through the lateral right clavicle, and inferior displacement of the lateral end of the medial clavicle fragment of about 75% of the bone diameter. ??The right sternoclavicular articulation is slightly elevated compared to the left and may be subluxed or dislocated. This is not appreciated on comparison clavicle films earlier today. Electronically signed by: ?? Michael Smalls MD [phone] 27-Dec-2011 19:24 I have reviewed the films/images and agree with the above interpretation. Electronically signed by: ?? Prakash Pitts MD [phone] 27-Dec-2011 19:44 Procedure Note Jean Pitts M.D. - 02/12/2018 27-Dec-2011 19:16:00 Exam: R Clavicle 1vw Serendipity Indications: Pain; serendipity view of the right clavicle ORIGINAL REPORT - 27-Dec-2011 19:24:00 Right Clavicle 1vw Serendipity: Again seen is widening of the right AC joint, acute fracture through thelateral right clavicle, and inferior displacement of the lateral end ofthe medial clavicle fragment of about 75% of the bone diameter. The rightsternoclavicular articulation is slightly elevated compared to the leftand may be subluxed or dislocated. This is not appreciated on comparisonclavicle films earlier today. Electronically signed by: Michael Smalls MD [phone] 27-Dec-2011 19:24 I have reviewed the films/images and agree with the above interpretation. Electronically signed by: Prakash Pitts MD [phone] 27-Dec-2011 19:44 Michael Boggust M.D. IMG DIAGNOSTIC IMAGI NG PROCEDURES * DX Clavicle (12/27/2011 2:53 PM [facility]) Anatomical Region Laterality Modality Upper Extremity, Shoulder, Clavicle N/A Radiographic Imaging 12/27/2011 2:53 PM [facility] Narrative 12/27/2011 4:41 PM [facility] 27-Dec-2011 14:53:00 ??Exam: R Clavicles Upright Landscape Indications: clavicle fracture ?? ?shifted, has right clavicle shifted? difficulty swallowing ORIGINAL REPORT - 27-Dec-2011 15:00:00 Right Clavicles Upright Landscape Orientation, 2vw: Comminuted fracture through the distal right clavicle. The right acromioclavicular joint is slightly wider compared to the left (8mm versus 5mm). the distal aspect of the proximal clavicular fragment is depressed 8mm. The sternoclavicular articulations appear intact. Electronically signed by: ?? Reed Thurston MD [phone] 27-Dec-2011 15:00 I have reviewed the films/images and agree with the above interpretation. Electronically signed by: ?? Prakash Pitts MD [phone] 27-Dec-2011 16:41 Procedure Note Jean Pitts M.D. - 02/12/2018 27-Dec-2011 14:53:00 Exam: R Clavicles Upright Landscape Indications: clavicle fracture ?shifted, has right clavicle shifted?difficulty swallowing ORIGINAL REPORT - 27-Dec-2011 15:00:00 Right Clavicles Upright Landscape Orientation, 2vw: Comminuted fracture through the distal right clavicle. The rightacromioclavicular joint is slightly wider compared to the left (8mm [id number]). the distal aspect of the proximal clavicular fragment is [id number]. The sternoclavicular articulations appear intact. Electronically signed by: Reed Thurston MD [phone] 27-Dec-2011 15:00 I have reviewed the films/images and agree with the above interpretation. Electronically signed by: Prakash Pitts MD [phone] 27-Dec-2011 16:41 Ap W [place] M.D. IMG DIAGNOSTIC JAEME GING PROCEDURES * Outside DX Chest (12/16/2011 1:44 AM [facility]) 12/16/2011 1:44 AM [facility] Addenda Addendum by ProviderBessy M.D. on 12/16/2011 1:44 AM [facility] ODM^^^MCR CLAVICLE, RIGHT Complete 12/16/2011 01:44:10 Historical Provider IMG DIAGNOSTIC IMAGI NG PROCEDURES [address] * NM Lung Ventilation and Perfusion (09/25/2011 5:24 PM [facility]) Anatomical Region Laterality Modality Chest N/A Nuclear Medicine 09/25/2011 5:24 PM [facility] Addenda Addendum by Fanny Méndez M.D. on 09/25/2011 9:54 PM [facility] APPENDED REPORT - 25-Sep-2011 21:54:00 Perfusion abnormalities appear to be matched on first breath images. ?? Agree with the interpretation that the probablity of PE is low. Electronically signed by: ?? Fanny Méndez MD [phone] 25-Sep-2011 21:54 Impressions 09/25/2011 9:54 PM [facility] Low probability VQ scan. FINDINGS: Nonsegmental perfusion irregularity without foci of matched ventilation defects. Ventilation defect within the left upper lobe without corresponding perfusion defect may represent subsegmental atelectasis. Left upper lobe focus of tracer retention on washout images may represent obstructive component. RADIOPHARMACEUTICAL: 6.6 mCi technetium 99m MAA and 30 mCi xenon-133. RadNuc 99MTC-MAA, 6.6 millicurie RadNuc 133 Xenon, 30 millicurie Electronically signed by: ?? Annalisa Zepeda MD [phone] ([id number]) 25-Sep-2011 20:56 Narrative 09/25/2011 9:54 PM [facility] 25-Sep-2011 17:24:00 ??Exam: NM Lung Scan V/Q Indications: Shortness Of Breath (sob);elevated ddimer;r/o PE ORIGINAL REPORT - 25-Sep-2011 20:56:00 EXAM: Nuclear medicine V/Q scan. INDICATION: Shortness of breath. COMPARISON: Chest x-ray performed on the same day (after ventilation/perfusion imaging). Procedure Note Fanny Méndez M.D. - 02/12/2018 25-Sep-2011 17:24:00 Exam: NM Lung Scan V/Q Indications: Shortness Of Breath (sob);elevated ddimer;r/o PE ORIGINAL REPORT - 25-Sep-2011 20:56:00 EXAM: Nuclear medicine V/Q scan. INDICATION: Shortness of breath. COMPARISON: Chest x-ray performed on the same day (afterventilation/perfusion imaging). IMPRESSION: Low probability VQ scan. FINDINGS: Nonsegmental perfusion irregularity without foci of matchedventilation defects. Ventilation defect within the left upper lobe withoutcorresponding perfusion defect may represent subsegmental atelectasis.Left upper lobe focus of tracer retention on washout images may representobstructive component. RADIOPHARMACEUTICAL: 6.6 mCi technetium 99m MAA and 30 mCi xenon-133. RadNuc 99MTC-MAA, 6.6 millicurie RadNuc 133 Xenon, 30 millicurie Electronically signed by: Annalisa Zepeda MD [phone] ([id number]) 25-Sep-2011 20:56 Jose A Corcoran M.D. IMG NM PROCEDURES * Echocardiogram (09/21/2011 2:05 PM [facility]) Anatomical Region Laterality Modality Echocardiography 09/21/2011 2:05 PM [facility] Historical Provider CV ECHO PROCEDURES * DX Wrist 2 Views (09/21/2011 5:32 AM [facility]) Anatomical Region Laterality Modality Radiographic Jamee ging 09/21/2011 5:32 AM [facility] Narrative 09/21/2011 9:29 AM [facility] 21-Sep-2011 05:32:00 ??Exam: R Wrist 2vw PA/Lat Indications: wrist pain REVISED REPORT - 21-Sep-2011 09:29:00 Right Wrist 2vw PA/Lat: Since 08/20/2011, there is greater widening of the scapholunate interval consistent with proximal carpal ligamentous injury. Advanced degenerative arthritis of the first right CMC joint. Moderate degenerative arthritis of the STT joints unchanged since 08-20-2011. ??Mild ulnar positive variance. ?? Electronically signed by: ?? Kvng Ramírez MD. ??[phone] 21-Sep-2011 09:29 Procedure Note Saad Ramírez IV, M.D. - 02/12/2018 21-Sep-2011 05:32:00 Exam: R Wrist 2vw PA/Lat Indications: wrist pain REVISED REPORT - 21-Sep-2011 09:29:00 Right Wrist 2vw PA/Lat: Since 08/20/2011, there is greater widening of the scapholunate intervalconsistent with proximal carpal ligamentous injury. Advanced degenerativearthritis of the first right CMC joint. Moderate degenerative arthritis ofthe STT joints unchanged since 08-20-2011. Mild ulnar positive variance. Electronically signed by: Knvg Ramírez MD. [phone] 21-Sep-2011 09:29 Maru OCHOA DIAGNOSTIC IMAGI NG PROCEDURES * US Extremity Veins (09/17/2011 12:59 PM CDT) Only the most recent of4 resultswithin the time period is included. Anatomical Region Laterality Modality Vascular, Upper Extremity, Lower Extremity Ultrasound 09/17/2011 12:5 9 PM CDT Narrative 09/17/2011 1:47 PM CDT 17-Sep-2011 12:59:00 ??Exam: L US Extremity Veins Limited Indications: Lt calf/knee pain and swelling; s/p Lt TKA ORIGINAL REPORT - 17-Sep-2011 13:47:00 Left US Extremity Duplex Scan Veins Limited with color and spectral Doppler analysis: LEFT: The common femoral, upper deep femoral, femoral, and popliteal veins are widely patent, without thrombus. The posterior tibial and peroneal veins were segmentally visualized and are normal where seen. The great saphenous vein is patent and negative for thrombus. Heterogeneous hypoechoic collection in the left popliteal fossa might represent hemoragic Larkin's cyst or hematoma in this patient status post recent left knee arthroplasty. Electronically signed by: ?? Donn Enamorado MD ??[phone] 17-Sep-2011 13:47 ?PAfia RUBIO [phone] [id number] 17-Sep-2011 13:47 Procedure Note Jan Enamorado M.D. - 02/12/2018 17-Sep-2011 12:59:00 Exam: L US Extremity Veins Limited Indications: Lt calf/knee pain and swelling; s/p Lt TKA ORIGINAL REPORT - 17-Sep-2011 13:47:00 Left US Extremity Duplex Scan Veins Limited with color and spectralDoppler analysis: LEFT: The common femoral, upper deep femoral, femoral, and popliteal veinsare widely patent, without thrombus. The posterior tibial and peronealveins were segmentally visualized and are normal where seen. The greatsaphenous vein is patent and negative for thrombus. Heterogeneoushypoechoic collection in the left popliteal fossa might representhemoragic Larkin's cyst or hematoma in this patient status post recent leftknee arthroplasty. Electronically signed by: Donn Enamorado MD [phone] 17-Sep-2011 13:47 PAfia RUBIO [phone] 17-Sep-2011 13:47 Ap Retana M.D., M.S. IMG US PROCED URES * DX Hand 2 Views And Wrist 2 Views (08/20/2011 11:23 AM CDT) Anatomical Region Laterality Modality Radiographic Jamee ging 08/20/2011 11:2 3 AM CDT Narrative 08/20/2011 11:32 AM CDT 20-Aug-2011 11:23:00 ??Exam: B Hand 2vw & Wrist 2vw Indications: DJD Finger ORIGINAL REPORT - 20-Aug-2011 11:32:00 Both Hand 2vw & Wrist 2vw: Advanced degenerative arthritis of the 1st CMC joints. Moderate to advanced degenerative arthritis of the STT joints and several IP joints. Mild ulnar positive variance bilaterally. Electronically signed by: ?? NHarmony Abdi MD [phone] 20-Aug-2011 11:32 Procedure Note Dionte Abdi M.D. - 02/12/2018 20-Aug-2011 11:23:00 Exam: B Hand 2vw & Wrist 2vw Indications: DJD Finger ORIGINAL REPORT - 20-Aug-2011 11:32:00 Both Hand 2vw & Wrist 2vw: Advanced degenerative arthritis of the 1st CMC joints. Moderate toadvanced degenerative arthritis of the STT joints and several IP joints.Mild ulnar positive variance bilaterally. Electronically signed by: Alli Abdi MD [phone] 20-Aug-2011 11:32 Telly Gaines M.D. IMG DIAGNOSTIC JAMEE GING PROCEDURES * DX Knee Standing 4 Views (08/13/2011 2:16 PM CDT) Anatomical Region Laterality Modality Radiographic Jamee ging 08/13/2011 2:16 PM CDT Narrative 08/13/2011 2:18 PM CDT 13-Aug-2011 14:16:00 ??Exam: L Knee 4vw/STDG w/patella/PAfl Indications: Pain Knee ORIGINAL REPORT - 13-Aug-2011 14:18:00 Left Knee 4vw/STDG w/patella/PAflex: Degenerative arthritis left knee with medial compartment narrowing. Electronically signed by: ?? Berta Dior MD ??[phone] 13-Aug-2011 14:18 Procedure Note Papi Dior M.D. - 02/12/2018 13-Aug-2011 14:16:00 Exam: L Knee 4vw/STDG w/patella/PAfl Indications: Pain Knee ORIGINAL REPORT - 13-Aug-2011 14:18:00 Left Knee 4vw/STDG w/patella/PAflex: Degenerative arthritis left knee with medial compartment narrowing. Electronically signed by: Berta Dior MD [phone] 13-Aug-2011 14:18 Cheri Humphrey M.D. IMG DIAGNOSTIC IMAG ING PROCEDURES * Interpretation of Outside DX Extremity (06/04/2010 10:26 AM CDT) Anatomical Region Laterality Modality N/A Radiographic Jamee ging 06/04/2010 10:2 6 AM CDT Narrative 06/04/2010 11:21 AM CDT 04-Jun-2010 10:26:00 ??Exam: Interp of OS XR Extremity Indications: Pain knee (719.46) ORIGINAL REPORT - 04-Jun-2010 11:21:00 Outside bilateral knee radiographs 05/16/2010 (six electronic views). ?? Degenerative arthritis in both knees with left greater than right medial compartment narrowing. The medial compartment narrowing in the left knee has progressed slightly since 12/04/2009 Do radiographs. ?? (06/04/2010) Electronically signed by: ?? Ofelia Mccoy ?? [phone] 04-Jun-2010 11:21 Procedure Note Joaquín Mccoy M.D. - 02/13/2018 04-Jun-2010 10:26:00 Exam: Interp of OS XR Extremity Indications: Pain knee (719.46) ORIGINAL REPORT - 04-Jun-2010 11:21:00 Outside bilateral knee radiographs 05/16/2010 (six electronic views). Degenerative arthritis in both knees with left greater than right medialcompartment narrowing. The medial compartment narrowing in the left kneehas progressed slightly since 12/04/2009 Do radiographs. (06/04/2010) Electronically signed by: Ofelia Mccoy MD [id number] 04-Jun-2010 11:21 Librado Geronimo M.D. IMG DIAGNOSTIC IMAG ING PROCEDURES * DX Knee Right 3 Views (05/16/2010 9:31 AM CDT) Anatomical Region Laterality Modality Lower Extremity, Knee Right Radiograph ic Imaging 05/16/2010 9:31 AM CDT Addenda Addendum by Bessy Gloria M.D. on 05/16/2010 9:31 AM CDT RAD^^^OW XR Knee Right 3 views 05/16/2010 09:31:00 Addendum by Bessy Gloria M.D. on 05/16/2010 9:31 AM CDT RAD^^^MA XR KNEE RIGHT 3 VIEWS 05/16/2010 09:31:00 Narrative 05/16/2010 11:30 AM CDT HISTORY: 64-year-old female with joint pain in the right knee. ?? Comparison: None. ?? Findings: There is no acute right knee osseous abnormality. Bone mineralization is within normal limits. There is degenerative change in the right knee with loss of joint space in all 3 compartments, greatest in the lateral and patellofemoral compartments where a mild to moderate joint space is observed. Osteophytes are observed. ?? Impression: ?? 1. No acute right knee osseous abnormality. 2. Degenerative change in the right knee as described above. Procedure Note Storm Littlejohn M.D. / Bessy Gloria M.D. - 04/08/2017 HISTORY: 64-year-old female with joint pain in the right knee. Comparison: None. Findings: There is no acute right knee osseous abnormality. Bone mineralization is within normal limits. There is degenerative change in the right knee with loss of joint space in all 3 compartments, greatest in the lateral and patellofemoral compartments where a mild to moderate joint space is observed. Osteophytes are observed. Impression: 1. No acute right knee osseous abnormality. 2. Degenerative change in the right knee as described above. Aithai See R.T.(R) IMG DIAGNOSTIC IMAGI NG PROCEDURES * DX Knee Left 3 Views (05/16/2010 9:31 AM CDT) Anatomical Region Laterality Modality Lower Extremity, Knee Left Radiograph ic Imaging 05/16/2010 9:31 AM CDT Addenda Addendum by Bessy Gloria M.D. on 05/16/2010 9:31 AM CDT RAD^^^OW XR Knee Left 3 views 05/16/2010 09:31:00 Addendum by Bessy Gloria M.D. on 05/16/2010 9:31 AM CDT RAD^^^MA XR KNEE LEFT 3 VIEWS 05/16/2010 09:31:00 Narrative 05/16/2010 11:32 AM CDT Exam: ?? XR KNEE LEFT 3 VIEWS ? Clinical history: Knee pain ?? Comparison: None ?? Findings: There is moderate to severe narrowing of the medial joint compartment with minimal spurring. There's pseudowidening of the lateral compartments with spurring. There is significant [id number] patellofemoral joint disease with trochlear patellar spurs. There is no knee joint effusion. There is no subluxation or patellar tilt identified. ?? 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 Procedure Note Mickey Rey M.D. / ProviderBessy M.D. - 04/08/2017 Exam: XR KNEE LEFT 3 VIEWS Clinical history: Knee pain Comparison: None Findings: There is moderate to severe narrowing of the medial joint compartment with minimal spurring. There's pseudowidening of the lateral compartments with spurring. There is significant [id number]-eh-[id number] patellofemoral joint disease with trochlear patellar spurs. There is no knee joint effusion. There is no subluxation or patellar tilt identified. 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 Aithai See R.T.(R) IMG DIAGNOSTIC IMAGI NG PROCEDURES * US ASPIRATION INJECTION JOINT (06/12/2009 2:53 PM CDT) Anatomical Region Laterality Modality Ultrasound 06/12/2009 2:53 PM CDT Narrative 06/12/2009 5:25 PM CDT 12-Jun-2009 14:53:00 ??Exam: US Asp-Inject Small Joint Indications: us right foot - pain foot; right medial foot near 1st metatarsal base; right local + steroid ORIGINAL REPORT - 12-Jun-2009 17:25:00 Ultrasound of the anterior aspect of the medial aspect of the mid foot demonstrates thickening and increased vascularity about the tibialis anterior tendon. The tibialis anterior tendon is mildly thickened but no evidence of tear or increased vascularity is seen. Some synovitis is noted at the 1st tarsometatarsal joint. This does correspond where patient points to her usual site of tenderness. Patient denies pain at this time. Findings discussed with Dr. Desai, and ultrasound-guided injection of the around the tibialis anterior tendon and the 1st tarsometatarsal joint requested. ?? Patient seen, evaluated, and history reviewed. Discussed risks, benefits, alternatives for procedure, and obtained informed consent. ??Patient understands information and questions answered. Immediately prior to starting the procedure, in the presence of the assisting personnel, procedural pause was conducted to verify correct patient identity and verification of procedure to be performed, and as applicable, correct side and site, correct patient position, availability of implants, special equipment, or special requirements, and all image and specimen identification data. The roles and responsibilities of care team members, residents, and fellows were discussed. ?? After sterile preparation and local anesthetic, a 25-gauge needle was placed into the 1st tarsometatarsal joint space and 1cc of a mixture of 0.5cc of ropivacaine and 0.5cc of Kenalog 40mg/mL was administered. Following this after sterile preparation and local anesthetic, a 25-gauge needle was placed in the synovium surrounding the tibialis anterior tendon, and 1cc of a mixture of 0.5cc of ropivacaine and 0.5cc of Kenalog 40mg/mL was administered. Fluid is noted to track around the tendon within the sheath. No complications. Electronically signed by: ?? Aileen Asencio MD [id number] 12-Jun-2009 17:25 Procedure Note Milla Asencio M.D. - 02/14/2018 12-Jun-2009 14:53:00 Exam: US Asp-Inject Small Joint Indications: us right foot - pain foot; right medial foot near 1stmetatarsal base; right local + steroid ORIGINAL REPORT - 12-Jun-2009 17:25:00 Ultrasound of the anterior aspect of the medial aspect of the mid footdemonstrates thickening and increased vascularity about the tibialisanterior tendon. The tibialis anterior tendon is mildly thickened but noevidence of tear or increased vascularity is seen. Some synovitis is notedat the 1st tarsometatarsal joint. This does correspond where patientpoints to her usual site of tenderness. Patient denies pain at this time.Findings discussed with Dr. Desai, and ultrasound-guided injection of thearound the tibialis anterior tendon and the 1st tarsometatarsal jointrequested. Patient seen, evaluated, and history reviewed. Discussed risks, benefits,alternatives for procedure, and obtained informed consent. Patientunderstands information and questions answered. Immediately prior tostarting the procedure, in the presence of the assisting personnel,procedural pause was conducted to verify correct patient identity andverification of procedure to be performed, and as applicable, correct sideand site, correct patient position, availability of implants, specialequipment, or special requirements, and all image and specimenidentification data. The roles and responsibilities of care team members,residents, and fellows were discussed. After sterile preparation and local anesthetic, a 25-gauge needle wasplaced into the 1st tarsometatarsal joint space and 1cc of a mixture of0.5cc of ropivacaine and 0.5cc of Kenalog 40mg/mL was administered.Following this after sterile preparation and local anesthetic, a 25-gaugeneedle was placed in the synovium surrounding the tibialis anteriortendon, and 1cc of a mixture of 0.5cc of ropivacaine and 0.5cc of Iuqjjeu21ro/mL was administered. Fluid is noted to track around the tendon withinthe sheath. No complications. Electronically signed by: Aileen Asencio MD [id number] 12-Jun-2009 17:25 Alejandro Verduzco D.D.S., Ph.D. [facility] US PROC EDURES * US Non Vascular Extremity (06/12/2009 2:24 PM CDT) Anatomical Region Laterality Modality Upper Extremity, Lower Extremity Ultrasound 06/12/2009 2:24 PM CDT Narrative 06/12/2009 5:25 PM CDT 12-Jun-2009 14:24:00 ??Exam: US Extremity Nonvascular Cmpl Indications: us right foot - pain foot; right medial foot near 1st metatarsal base; right local + steroid ORIGINAL REPORT - 12-Jun-2009 17:25:00 Ultrasound of the anterior aspect of the medial aspect of the mid foot demonstrates thickening and increased vascularity about the tibialis anterior tendon. The tibialis anterior tendon is mildly thickened but no evidence of tear or increased vascularity is seen. Some synovitis is noted at the 1st tarsometatarsal joint. This does correspond where patient points to her usual site of tenderness. Patient denies pain at this time. Findings discussed with Dr. Desai, and ultrasound-guided injection of the around the tibialis anterior tendon and the 1st tarsometatarsal joint requested. ?? Patient seen, evaluated, and history reviewed. Discussed risks, benefits, alternatives for procedure, and obtained informed consent. ??Patient understands information and questions answered. Immediately prior to starting the procedure, in the presence of the assisting personnel, procedural pause was conducted to verify correct patient identity and verification of procedure to be performed, and as applicable, correct side and site, correct patient position, availability of implants, special equipment, or special requirements, and all image and specimen identification data. The roles and responsibilities of care team members, residents, and fellows were discussed. ?? After sterile preparation and local anesthetic, a 25-gauge needle was placed into the 1st tarsometatarsal joint space and 1cc of a mixture of 0.5cc of ropivacaine and 0.5cc of Kenalog 40mg/mL was administered. Following this after sterile preparation and local anesthetic, a 25-gauge needle was placed in the synovium surrounding the tibialis anterior tendon, and 1cc of a mixture of 0.5cc of ropivacaine and 0.5cc of Kenalog 40mg/mL was administered. Fluid is noted to track around the tendon within the sheath. No complications. Electronically signed by: ?? Aileen Asencio MD [id number] 12-Jun-2009 17:25 Procedure Note Milla Asencio M.D. - 02/14/2018 12-Jun-2009 14:24:00 Exam: US Extremity Nonvascular Cmpl Indications: us right foot - pain foot; right medial foot near 1stmetatarsal base; right local + steroid ORIGINAL REPORT - 12-Jun-2009 17:25:00 Ultrasound of the anterior aspect of the medial aspect of the mid footdemonstrates thickening and increased vascularity about the tibialisanterior tendon. The tibialis anterior tendon is mildly thickened but noevidence of tear or increased vascularity is seen. Some synovitis is notedat the 1st tarsometatarsal joint. This does correspond where patientpoints to her usual site of tenderness. Patient denies pain at this time.Findings discussed with Dr. Desai, and ultrasound-guided injection of thearound the tibialis anterior tendon and the 1st tarsometatarsal jointrequested. Patient seen, evaluated, and history reviewed. Discussed risks, benefits,alternatives for procedure, and obtained informed consent. Patientunderstands information and questions answered. Immediately prior tostarting the procedure, in the presence of the assisting personnel,procedural pause was conducted to verify correct patient identity andverification of procedure to be performed, and as applicable, correct sideand site, correct patient position, availability of implants, specialequipment, or special requirements, and all image and specimenidentification data. The roles and responsibilities of care team members,residents, and fellows were discussed. After sterile preparation and local anesthetic, a 25-gauge needle wasplaced into the 1st tarsometatarsal joint space and 1cc of a mixture of0.5cc of ropivacaine and 0.5cc of Kenalog 40mg/mL was administered.Following this after sterile preparation and local anesthetic, a 25-gaugeneedle was placed in the synovium surrounding the tibialis anteriortendon, and 1cc of a mixture of 0.5cc of ropivacaine and 0.5cc of Tifdnji11kv/mL was administered. Fluid is noted to track around the tendon withinthe sheath. No complications. Electronically signed by: Aileen Asencio MD [id number] 12-Jun-2009 17:25 Alejandro Verduzco D.D.S., Ph.D. IMG US PROC EDURES * XR Foot Right 3 or more views (04/22/2009 9:30 AM CDT) Anatomical Region Laterality Modality Other 04/22/2009 9:30 AM CDT Historical Provider IMG NON RAD IMAGING PROCEDURES * DX Foot Right 3+ Views (04/22/2009 9:27 AM CDT) Anatomical Region Laterality Modality Lower Extremity, Foot Right Radiograph ic Imaging 04/22/2009 9:27 AM CDT Impressions 04/22/2009 9:27 AM CDT Small calcaneal spur, otherwise essentially negative right foot. Narrative 04/22/2009 9:27 AM CDT Originally Signed By UNKNOWN, PERSONNEL Reason for exam: FOOT PAIN MTPJ HISTORY: Foot pain at the metatarsophalangeal joints. ?? COMPARISON: None. ?? FINDINGS: There is mild soft tissue swelling at the ankle medially and anteriorly. No fractures or destructive lesions are identified. Joint spaces are generally preserved without significant degenerative change. There is a small calcaneal spur. ? Procedure Note ProviderBessy M.D. - 04/20/2017 Originally Signed By UNKNOWN, PERSONNEL Reason for exam: FOOT PAIN MTPJ HISTORY: Foot pain at the metatarsophalangeal joints. COMPARISON: None. FINDINGS: There is mild soft tissue swelling at the ankle medially and anteriorly. No fractures or destructive lesions are identified. Joint spaces are generally preserved without significant degenerative change. There is a small calcaneal spur. IMPRESSION: Small calcaneal spur, otherwise essentially negative right foot. Historical Provider IMG DIAGNOSTIC IMAGI NG PROCEDURES * BI Breast Diagnostic (07/12/2008 10:14 AM CDT) Only the most recent of2 resultswithin the time period is included. Anatomical Region Laterality Modality Mammography 07/12/2008 10:1 4 AM CDT Narrative 07/12/2008 12:08 PM CDT 12-Jul-2008 10:14:00 ??Exam: R MG /Diagnostic Exam Indications: ?? ORIGINAL REPORT - 12-Jul-2008 12:08:00 Patient returned for right digital diagnostic mammogram. The nodular density persisted in the lateral right breast on the additional mammographic views. Ultrasound evaluation of the lateral right breast demonstrates two adjacent small simple cysts at the 9 o'clock position 5cm from the nipple which would correspond to the mammographic nodularity. Nothing for malignancy. Repeat annual screening mammography is recommended. ?? Assessment: Benign. ??P3,P4.1,D2,M1,U1,L1D Electronically signed by: ?? Sivan Silva [id number] 12-Jul-2008 12:08 Procedure Note Sivan Silva M.B., Ch.B. - 02/14/2018 12-Jul-2008 10:14:00 Exam: R MG /Diagnostic Exam Indications: ORIGINAL REPORT - 12-Jul-2008 12:08:00 Patient returned for right digital diagnostic mammogram. The nodulardensity persisted in the lateral right breast on the additionalmammographic views. Ultrasound evaluation of the lateral right breastdemonstrates two adjacent small simple cysts at the 9 o'clock position 5cmfrom the nipple which would correspond to the mammographic nodularity.Nothing for malignancy. Repeat annual screening mammography isrecommended. Assessment: Benign. P3,P4.1,D2,M1,U1,L1D Electronically signed by: Sivan Silva [id number] 12-Jul-2008 12:08 Telly Gaines M.D. IMG BI PROCEDURES * Polysomnography (PSG) (11/20/2007 10:38 PM [facility]) 11/20/2007 10:3 8 PM [facility] Storm Alejandra M.D. [facility] ORDERAB LES Performing Organization Address City/[facility]/ZIP Co de Phone Number [facility] [address] * Echocardiogram (11/16/2007 12:32 PM [facility]) Anatomical Region Laterality Modality Echocardiography 11/16/2007 12:3 2 PM [facility] Historical Provider CV ECHO PROCEDURES * PUL Home Overnight Oximetry (11/15/2007 10:45 PM [facility]) 11/15/2007 10:4 5 PM [facility] Telly Montalvo M.D. PFT ORDERABLES Performing Organization Address City/[facility]/ZIP Co de Phone Number [facility] [address] * FL Swallow Function and Esophagram with Video (03/14/2007 9:02 AM CDT) Anatomical Region Laterality Modality Gastro Intestinal N/A Radiographic I maging 03/14/2007 9:02 AM CDT Narrative 03/14/2007 10:31 AM CDT 14-Mar-2007 09:02:00 ??Exam: AB-Twjlrhbfy-Foolj Study Indications: cough ORIGINAL REPORT - 14-Mar-2007 10:31:00 Air contrast barium esophagram shows a small amount of gastroesophageal reflux in the recumbent position. Esophageal peristalsis is normal. Esophagus otherwise negative. Incidentally noted is a prominent anterior cervical osteophyte at the C4 interspace level which causes an impression on the posterior pharynx. Electronically signed by: ?? Prakash Pitts MD [id number] 14-Mar-2007 10:31 Procedure Note Jean Pitts M.D. - 02/15/2018 14-Mar-2007 09:02:00 Exam: FP-Kllkbazdx-Wjzre Study Indications: cough ORIGINAL REPORT - 14-Mar-2007 10:31:00 Air contrast barium esophagram shows a small amount of gastroesophagealreflux in the recumbent position. Esophageal peristalsis is normal.Esophagus otherwise negative. Incidentally noted is a prominent anteriorcervical osteophyte at the C4 interspace level which causes an impressionon the posterior pharynx. Electronically signed by: Prakash Pitts MD [id number] 14-Mar-2007 10:31 Jean Lara M.D. IMG FLUOROSCOPY PRO CEDURES * Pulmonary Function Tests (03/08/2007 2:55 PM CDT) 03/08/2007 2:55 PM CDT Mike Lopez M.D. PFT ORDERABLES Performing Organization Address City/State/[facility] Co de Phone Number [facility] [address] * DX Abdomen 1 View (12/21/2006 11:47 AM [facility]) Anatomical Region Laterality Modality Abdomen N/A Radiographic Jamee ging 12/21/2006 11:4 7 AM [facility] Narrative 12/21/2006 12:56 PM [facility] 21-Dec-2006 11:47:00 ??Exam: Abdomen Indications: nausea and vomiting;pain abdominal ORIGINAL REPORT - 21-Dec-2006 12:56:00 Moderate amount of stool and gas in normal caliber colon and rectum. Small bowel gas pattern is normal. ??PO changes projected over the pelvis and groin bilaterally. Degenerative lumbar changes. ??Pelvic phleboliths. Electronically signed by: ?? Vishnu Hathaway ??Nayely 21-Dec-2006 12:56 Procedure Note Vishnu Hathaway M.D., Ph.D. - 02/14/2018 21-Dec-2006 11:47:00 Exam: Abdomen Indications: nausea and vomiting;pain abdominal ORIGINAL REPORT - 21-Dec-2006 12:56:00 Moderate amount of stool and gas in normal caliber colon and rectum. Smallbowel gas pattern is normal. PO changes projected over the pelvis andgroin bilaterally. Degenerative lumbar changes. Pelvic phleboliths. Electronically signed by: Vishnu Hathaway M.D. 21-Dec-2006 12:56 Rula Mckay APRN, C.N.P., PrakashNRosa IMG JONO GNOSTIC IMAGING PROCEDURES * BI Aspiration (05/20/2006 11:16 AM CDT) Anatomical Region Laterality Modality Breast N/A Ultrasound 05/20/2006 11:1 6 AM CDT Impressions 05/20/2006 12:00 PM CDT ?? 1). No mammographic or sonographic features of malignancy in the right breast. ?? 2). Technically successful complete aspiration of the benign complicated cyst in the right breast. Recommend resumption of annual screening mammography. ?? Assessment: Benign. P3,P4.1,P7,U2,U3,D1,M2.1,L2S Ultrasound Electronic Images Only Electronically signed by: ?? Ian Martinez MD. [id number] 20-May-2006 12:00 Narrative 05/20/2006 12:00 PM CDT 20-May-2006 11:16:00 ??Exam: R MG /@Aspiration Indications: ?? ORIGINAL REPORT - 20-May-2006 12:00:00 The patient was re-called from the bilateral screening mammography of 05-19-06 for right diagnostic mammography and sonography. The spot compression views of the anterior right breast demonstrate a 5mm diameter well-defined low density nodule in the upper outer quadrant near the midline about 3cm from the nipple. No mammographic features of malignancy. ?? The real-time sonography of the right periareolar region demonstrates a [id number] complicated cyst with probable internal debris. Both color flow Doppler and power Doppler imaging demonstrates no evidence of vascularity within the cyst. Recommend ultrasound-guided aspiration for confirmation. Informed consent for ultrasound-guided cyst aspiration of the right periareolar region was obtained following a detailed discussion of the procedure, alternatives, risks, and complications. Ultrasound-guided aspiration was performed with an 18- gauge needle under the usual aseptic conditions and local anesthetic. The lesion was completely aspirated under real-time sonographic guidance, and a drop of thin, brown fluid was obtained and discarded. No evidence of bloody aspirate. ?? The postbiopsy right ML/CC mammography demonstrates minimal postprocedural density in the anterior right breast secondary to application of the local anesthetic, and resolution of the targeted nodule. The patient tolerated the procedure without difficulty or complication. ?? Procedure Note Ian Martinez M.D. - 02/15/2018 20-May-2006 11:16:00 Exam: R MG /@Aspiration Indications: ORIGINAL REPORT - 20-May-2006 12:00:00 The patient was re-called from the bilateral screening mammography of05-19-06 for right diagnostic mammography and sonography. The spotcompression views of the anterior right breast demonstrate a 5mm diameterwell-defined low density nodule in the upper outer quadrant near themidline about 3cm from the nipple. No mammographic features of malignancy. The real-time sonography of the right periareolar region demonstrates [id number] complicated cyst with probable internal debris. Both color flowDoppler and power Doppler imaging demonstrates no evidence of vascularitywithin the cyst. Recommend ultrasound-guided aspiration for confirmation. Informed consent for ultrasound-guided cyst aspiration of the rightperiareolar region was obtained following a detailed discussion of theprocedure, alternatives, risks, and complications. Ultrasound-guidedaspiration was performed with an 18-gauge needle under the usual asepticconditions and local anesthetic. The lesion was completely aspirated underreal-time sonographic guidance, and a drop of thin, brown fluid wasobtained and discarded. No evidence of bloody aspirate. The postbiopsy right ML/CC mammography demonstrates minimal postproceduraldensity in the anterior right breast secondary to application of the localanesthetic, and resolution of the targeted nodule. The patient toleratedthe procedure without difficulty or complication. IMPRESSION: 1). No mammographic or sonographic features of malignancy in the rightbreast. 2). Technically successful complete aspiration of the benign complicatedcyst in the right breast. Recommend resumption of annual screeningmammography. Assessment: Benign. P3,P4.1,P7,U2,U3,D1,M2.1,L2S Ultrasound Electronic Images Only Electronically signed by: Ian Martinez MD. [id number] 20-May-2006 12:00 Telly Gaines M.D. IMG BI PROCEDURES * MR Lower Extremity (08/12/2004 4:31 PM CDT) Anatomical Region Laterality Modality Lower Extremity Magnetic Resonan ce 08/12/2004 4:31 PM CDT Narrative 08/12/2004 8:39 PM CDT 12-Aug-2004 16:31:00 ??Exam: R MRI LE JOINT wo Indications: rt knee - injury knee nos^ ORIGINAL REPORT - 12-Aug-2004 20:39:00 MRI of the right knee without contrast. Meniscal tear involving the posterior horn, body, and the anterior horn of the lateral meniscus. The medial meniscus is intact. Thinning and edema within the ACL, likely representing a partial tear. The PCL, extensor tendon, and collateral ligaments appear intact. Subchondral degenerative cystic changes in the tibial plateau as well as the lateral femoral condyle. There is some lateral subluxation of the lateral meniscus. Mild/moderate tricompartmental chondromalacia, most prominently along the anteromedial aspect of the lateral femoral condyle. Small joint effusion and prominent Larkin's cyst measuring approximately 7x2.2cm. Small amount of prepatellar subcutaneous edema. Ind: [id number] ?? [id number] ?? Electronically signed by: ?? Jorge Adler ??12-Aug-2004 20:39 Procedure Note Ronnie Martines M.D., Ph.D. - 02/16/2018 12-Aug-2004 16:31:00 Exam: R MRI LE JOINT wo Indications: rt knee - injury knee nos^ ORIGINAL REPORT - 12-Aug-2004 20:39:00 MRI of the right knee without contrast. Meniscal tear involving theposterior horn, body, and the anterior horn of the lateral meniscus. Themedial meniscus is intact. Thinning and edema within the ACL, likelyrepresenting a partial tear. The PCL, extensor tendon, and collateralligaments appear intact. Subchondral degenerative cystic changes in thetibial plateau as well as the lateral femoral condyle. There is somelateral subluxation of the lateral meniscus. Mild/moderatetricompartmental chondromalacia, most prominently along the anteromedialaspect of the lateral femoral condyle. Small joint effusion and prominentBaker's cyst measuring approximately 7x2.2cm. Small amount of prepatellarsubcutaneous edema. Ind: [id number] [id number] Electronically signed by: Jorge Adler [id number] 12-Aug-2004 20:39 Mari Collazo APRN.N.P., D.N.P. IMG MRI PROCEDURES * DX Knee 4+ Views (08/12/2004 3:45 PM CDT) Anatomical Region Laterality Modality Lower Extremity, Knee N/A Radiograph ic Imaging 08/12/2004 3:45 PM CDT Narrative 08/12/2004 3:56 PM CDT 12-Aug-2004 15:45:00 ??Exam: R Knee 4vw/STDG AP/Lat/Obl Indications: knee pain; trauma ORIGINAL REPORT - 12-Aug-2004 15:56:00 Medial compartment narrowing both knees, greater on the left. Electronically signed by: ?? Jocelyne Garrison ?? [phone] 12-Aug-2004 15:56 Procedure Note Jocelyne Garrison M.D. - 02/16/2018 12-Aug-2004 15:45:00 Exam: R Knee 4vw/STDG AP/Lat/Obl Indications: knee pain; trauma ORIGINAL REPORT - 12-Aug-2004 15:56:00 Medial compartment narrowing both knees, greater on the left. Electronically signed by: Jocelyne Garrison MD [phone] 12-Aug-2004 15:56 Mari Collazo APRN.N.PHarmony, D.N.P. IMG JONO GNOSTIC IMAGING PROCEDURES * Pulmonary Function Tests (01/18/2003 4:04 PM [facility]) 01/18/2003 4:04 PM [facility] Librado Lacy M.D. PFT ORDERABLES Performing Organization Address City/State/[facility] Co de Phone Number [facility] [address] * Pulmonary Function Tests (01/18/2003 7:21 AM [facility]) 01/18/2003 7:21 AM [facility] Librado Lacy M.D. PFT ORDERABLES Performing Organization Address [facility] de Phone Number [facility] [address] [place] [address], [facility] * Cytology (12/06/2001 3:41 PM [facility]) Only the most recent of3 resultswithin the time period is included. 12/06/2001 3:41 PM [facility] 12/06/2001 3:41 PM [facility] Narrative [facility] - 12/06/2001 3:41 PM [facility] 06Dec2001 Cytology Gynecological Requested By: ? Ward BuckleyNJake. ? ([id number]) ?? DIAGNOSIS: ?Vaginal Smear ?Satisfactory for evaluation. ?Within Normal Limits. ?[id number] ? MAYA Pierce(ASCP) ?07Dec2001 ? GLK ??[id number]:sbr Procedure Note 02/07/2018 06Dec2001 Cytology Gynecological Requested By: Simón Lorenzo, C.N.P.([id number]) DIAGNOSIS: Vaginal Smear Satisfactory for evaluation. Within Normal Limits. 07Dec2001 MAYA Pierce(ASCP) 07Dec2001 GLK 55330:sbr Simón Lorenzo LAB PATHOLOGY/CYTOLO GY ORDERABLES Performing Organization Address [facility] de Phone Number [facility] [address] * MR Lumbar Spine without IV Contrast (10/24/2001 8:26 AM [facility]) Anatomical Region Laterality Modality Lumbar Spine N/A Magnetic Resonan ce 10/24/2001 8:26 AM [facility] Narrative 10/24/2001 10:14 AM [facility] 24-Oct-2001 08:26:00 ??Exam: MRI LUMBAR Sp Indications: lumbosacral spine^pain, ?L5 radiculopathy ORIGINAL REPORT - 24-Oct-2001 10:14:00 MRI lumbar spine demonstrates mild degenerative changes involving lumbar interspaces. No evidence of focal disk protrusion. Advanced degenerative changes in the L4-L5 facet joints, more severe on the right associated with minimal anterior subluxation of L4 on L5. Posterior midline L4 annular tear. ?? (RVU 208) Ind: 333.999 ?? Dia.5642 ?? Electronically signed by: ?? Ryan Chow MD. ??[phone] 24-Oct-2001 10:14 Procedure Note Gerardo Chow M.D. - 02/18/2018 24-Oct-2001 08:26:00 Exam: MRI LUMBAR Sp Indications: lumbosacral spine^pain, ?L5 radiculopathy ORIGINAL REPORT - 24-Oct-2001 10:14:00 MRI lumbar spine demonstrates mild degenerative changes involving lumbarinterspaces. No evidence of focal disk protrusion. Advanced degenerativechanges in the L4-L5 facet joints, more severe on the right associatedwith minimal anterior subluxation of L4 on L5. Posterior midline [id number] tear. (RVU 208) Ind: 333.999 Dia.[id number] Electronically signed by: Ryan Chow MD. [phone] 24-Oct-2001 10:14 Joaquín Parekh D.O. 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 L4 disk space is slightly narrowed. Electronically signed by: ?? Ofelia Henderson MD. ??[phone] 06-Jul-2001 14:48 Procedure Note Telly Henderson M.D. 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 L4 disk space isslightly narrowed. Electronically signed by: Ofelia Henderson MD. [phone] 06-Jul-2001 14:48 Joaquín Parekh D.O. IMG DIAGNOSTIC JAMEE GING PROCEDURES * HX issa Surg Bld Order (12/02/1999 6:40 AM [facility]) 12/02/1999 6:40 AM [facility] 12/02/1999 7:29 AM [facility] Narrative [facility] - 12/02/1999 6:40 AM [facility] 02 Dec 1999 ?[id number] ?Ro ?06:40 ?? Std Surg Bld Order: ?ABO/RH ? A POS ?Antibody Screen ?Neg Procedure Note 03/02/2018 02 Dec 1999 [id number] Ro 06:40 Std Surg Bld Order: ABO/RH A POS Antibody Screen Neg Historical Provider LAB HISTORICAL ORDER S [facility] [address] * US Pelvis Transvaginal and Transabdominal (10/24/1999 2:38 PM [facility]) Anatomical Region Laterality Modality Pelvis N/A Ultrasound 10/24/1999 2:38 PM [facility] Narrative 10/24/1999 3:18 PM [facility] 24-Oct-1999 14:38:00 ??Exam: US Pelvis with Transvaginal Indications: pelvic mass ORIGINAL REPORT - 24-Oct-1999 15:18:00 Transabdominal and endovaginal ultrasound examination of the pelvis demonstrates a large hypoechoic mass within the myometrium of the uterus and projects into the left adnexa. This mass measures 7.2x5.6cm and has the typical appearance of a uterine fibroid. The remainder of the uterus is normal. The endometrial stripe is of normal thickness measuring .5cm. A dominant follicle is present within the left ovary and measures 2.1x1.7cm. A smaller follicle is present within the right ovary. No adnexal masses are seen. No fluid is present within the pelvic cul-de-sac. I-870.705; D-020.3104 Electronically signed by: ?? R.R. ??Mark Anthony RUBIO. ??[phone] 24-Oct-1999 15:18 ?Hollie Chiang MD [phone] ([id number]) 24-Oct-1999 15:18 Procedure Note Ronaldo Hopson M.D. - 02/21/2018 24-Oct-1999 14:38:00 Exam: US Pelvis with Transvaginal Indications: pelvic mass ORIGINAL REPORT - 24-Oct-1999 15:18:00 Transabdominal and endovaginal ultrasound examination of the pelvisdemonstrates a large hypoechoic mass within the myometrium of the uterusand projects into the left adnexa. This mass measures 7.2x5.6cm and hasthe typical appearance of a uterine fibroid. The remainder of the uterusis normal. The endometrial stripe is of normal thickness measuring .5cm. Adominant follicle is present within the left ovary and measures 2.1x1.7cm.A smaller follicle is present within the right ovary. No adnexal massesare seen. No fluid is present within the pelvic cul-de-sac. I-870.705;D-020.3104 Electronically signed by: Willis Hopson MD. [phone] 24-Oct-1999 15:18 Hollie Chiang [phone] ([id number]) 24-Oct-1999 15:18 Rula Mckay APRN, C.N.P., D.N.P. [facility] US PROCEDURES * Dermatopathology (10/29/1995 1:37 PM [facility]) 10/29/1995 1:37 PM [facility] 10/29/1995 1:37 PM [facility] Narrative [facility] - 10/29/1995 1:37 PM [facility] [id number] Dermatopathology [facility] Hospice Aide: ??TETE Bryant ? ([id number]) Requested By: ? TETE Bryant Procedure Performed By: TETE Bryant ?? ANATOMIC SITE OF TISSUE: LEFT HIP ?? [id number] A1 ?? DIAGNOSTIC IMPRESSION: ?? compound nevus with erosion ?? [id number] ?Partha Bernal M.D.:ers Procedure Note 02/05/2018 [id number] Dermatopathology Primary Home Hospice Aide: TETE Bryant([id number]) Requested By: TETE Bryant Procedure Performed By: TETE Bryant ANATOMIC SITE OF TISSUE: LEFT HIP [id number] A1 DIAGNOSTIC IMPRESSION: compound nevus with erosion [id number] Partha Bernal M.D.:ers Vinay Guerra.N.P., N.P., R.N. LAB PATH DERM ORDERABLES Performing Organization Address City/State/[facility] Co de Phone Number [facility] [address] [place] [address], [facility] Visit Diagnoses Diagnosis Start Date Atrial Fibrillation Paroxysmal (HCC) 09/14/2017 Anticoagulant Therapy 09/30/2017 Monitoring For Therapeutic Drug Therapy 09/30/2017 Atrial Fibrillation Unspecified (HCC) 09/30/2017 Monitoring For Therapeutic Drug Therapy 09/30/2017 Anticoagulant Therapy 10/05/2017 Monitoring For Therapeutic Drug Therapy 10/05/2017 Atrial Fibrillation Unspecified (HCC) 10/05/2017 Atrial Fibrillation Unspecified (HCC) 10/10/2017 Anticoagulant Therapy 10/28/2017 Monitoring For Therapeutic Drug Therapy 10/28/2017 Atrial Fibrillation Unspecified (HCC) 10/28/2017 Anticoagulant Therapy 10/28/2017 Monitoring For Therapeutic Drug Therapy 10/28/2017 Atrial Fibrillation Unspecified (HCC) 10/28/2017 Anticoagulant Therapy 10/28/2017 Monitoring For Therapeutic Drug Therapy 10/28/2017 Atrial Fibrillation Unspecified (HCC) 10/28/2017 Anticoagulant Therapy 11/22/2017 Monitoring For Therapeutic Drug Therapy 11/22/2017 Atrial Fibrillation Unspecified (HCC) 11/22/2017 Atrial Fibrillation Unspecified (HCC) 11/24/2017 Monitoring For Therapeutic Drug Therapy 11/24/2017 Assisted (Current) Anticoagulant Treatment 11/24/2017 Atrial Fibrillation Unspecified (HCC) 11/25/2017 Monitoring For Therapeutic Drug Therapy 11/25/2017 Assisted (Current) Anticoagulant Treatment 11/25/2017 Anticoagulant Therapy 11/25/2017 Infection Upper Respiratory 11/30/2017 Acute Reactive Otitis Externa Right Ear 11/30/2017 Cough Unspecified Type 12/02/2017 Asthma Mild Intermittent With Environmental Exposure To Tobacco Smoke 12/02/2017 Cough Unspecified Type 12/23/2017 Fatigue 12/23/2017 Cough Unspecified Type 12/23/2017 Fatigue 12/23/2017 Atrial Fibrillation Unspecified (HCC) 01/06/2018 Monitoring For Therapeutic Drug Therapy 01/06/2018 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 01/06/2018 Anticoagulant Therapy 01/06/2018 Monitoring For Therapeutic Drug Therapy 01/07/2018 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 01/07/2018 Atrial Fibrillation Unspecified (HCC) 01/07/2018 Anticoagulant Therapy 01/07/2018 Anticoagulant Therapy 01/10/2018 Monitoring For Therapeutic Drug Therapy 01/10/2018 Atrial Fibrillation Unspecified (HCC) 01/10/2018 Assisted (Current) Anticoagulant Treatment 01/10/2018 Anticoagulant Therapy 01/10/2018 Monitoring For Therapeutic Drug Therapy 01/10/2018 Atrial Fibrillation Unspecified (HCC) 01/10/2018 Assisted (Current) Anticoagulant Treatment 01/10/2018 Anticoagulant Therapy 01/10/2018 Monitoring For Therapeutic Drug Therapy 01/10/2018 Atrial Fibrillation Unspecified (HCC) 01/10/2018 Anticoagulant Therapy 01/19/2018 Monitoring For Therapeutic Drug Therapy 01/19/2018 Atrial Fibrillation Unspecified (HCC) 01/19/2018 Assisted (Current) Anticoagulant Treatment 01/19/2018 Anticoagulant Therapy 02/03/2018 Monitoring For Therapeutic Drug Therapy 02/03/2018 Atrial Fibrillation Unspecified (HCC) 02/03/2018 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 02/03/2018 Screening Mammogram Breast Cancer 02/24/2018 Atrial Fibrillation Unspecified (HCC) 03/24/2018 Monitoring For Therapeutic Drug Therapy 03/24/2018 Assisted (Current) Anticoagulant Treatment 03/24/2018 Anticoagulant Therapy 03/24/2018 Atrial Fibrillation Unspecified (HCC) 04/14/2018 Atrial Fibrillation Unspecified (HCC) 05/05/2018 Monitoring For Therapeutic Drug Therapy 05/05/2018 Assisted (Current) Anticoagulant Treatment 05/05/2018 Anticoagulant Therapy 05/05/2018 Screening Mammogram Breast Cancer 05/25/2018 Screening Mammogram Breast Cancer 05/25/2018 Atrial Fibrillation Unspecified (HCC) 05/26/2018 Monitoring For Therapeutic Drug Therapy 05/26/2018 Assisted (Current) Anticoagulant Treatment 05/26/2018 Anticoagulant Therapy 05/26/2018 Atrial Fibrillation Unspecified (HCC) 06/14/2018 Primary Osteoarthritis Knee Right 06/27/2018 Primary Osteoarthritis Knee Right 06/27/2018 Atrial Fibrillation Unspecified (HCC) 07/07/2018 Monitoring For Therapeutic Drug Therapy 07/07/2018 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 07/07/2018 Anticoagulant Therapy 07/07/2018 Atrial Fibrillation Unspecified (HCC) 07/13/2018 Atrial Fibrillation Unspecified (HCC) 07/13/2018 Atrial Fibrillation Unspecified (HCC) 07/14/2018 Sleep Apnea 07/25/2018 Atrial Fibrillation Unspecified (HCC) 07/25/2018 Maintenance Health Adult 07/25/2018 Atrial Fibrillation Unspecified (HCC) 07/25/2018 Atrial Fibrillation Unspecified (HCC) 07/28/2018 Monitoring For Therapeutic Drug Therapy 07/28/2018 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 07/28/2018 Anticoagulant Therapy 07/28/2018 Anticoagulant Therapy 08/01/2018 Atrial Fibrillation Unspecified (HCC) 08/01/2018 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 08/01/2018 Anticoagulant Therapy 08/01/2018 Monitoring For Therapeutic Drug Therapy 08/01/2018 Atrial Fibrillation Unspecified (HCC) 08/01/2018 Atrial Fibrillation Unspecified (HCC) 08/03/2018 Need Vaccine Immunization Influenza 08/25/2018 Apnea Sleep Obstructive 09/14/2018 Snoring 09/14/2018 Fatigue 09/14/2018 Sleep Disorder 09/14/2018 Thrombosis Deep Vein Acute Calf Right (HCC) 09/15/2018 Monitoring For Therapeutic Drug Therapy 09/15/2018 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 09/15/2018 Thrombosis Deep Vein Acute Calf Right (HCC) 09/15/2018 Assisted (Current) Anticoagulant Treatment 09/15/2018 Monitoring For Therapeutic Drug Therapy 09/15/2018 Apnea Sleep Obstructive 09/15/2018 Atrial Fibrillation Unspecified (HCC) 09/15/2018 Monitoring For Therapeutic Drug Therapy 09/15/2018 Assisted (Current) Anticoagulant Treatment 09/15/2018 Anticoagulant Therapy 09/15/2018 Thrombosis Deep Vein Acute Calf Right (HCC) 09/15/2018 Apnea Sleep Obstructive 09/16/2018 Insomnia 09/16/2018 Fatigue 09/16/2018 Restless Leg Syndrome 09/16/2018 Atrial Fibrillation Unspecified (HCC) 09/19/2018 Monitoring For Therapeutic Drug Therapy 09/19/2018 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 09/19/2018 Anticoagulant Therapy 09/19/2018 Thrombosis Deep Vein Acute Calf Right (HCC) 09/19/2018 Atrial Fibrillation Unspecified (HCC) 09/22/2018 Monitoring For Therapeutic Drug Therapy 09/22/2018 Assisted (Current) Anticoagulant Treatment 09/22/2018 Anticoagulant Therapy 09/22/2018 Thrombosis Deep Vein Acute Calf Right (HCC) 09/22/2018 Thrombosis Deep Vein Acute Calf Right (HCC) 09/28/2018 Monitoring For Therapeutic Drug Therapy 09/28/2018 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 09/28/2018 Assisted (Current) Anticoagulant Treatment 10/07/2018 Monitoring For Therapeutic Drug Therapy 10/07/2018 Thrombosis Deep Vein Acute Calf Right (HCC) 10/07/2018 Atrial Fibrillation Unspecified (HCC) 10/20/2018 Monitoring For Therapeutic Drug Therapy 10/20/2018 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 10/20/2018 Anticoagulant Therapy 10/20/2018 Thrombosis Deep Vein Acute Calf Right (HCC) 10/20/2018 Thrombosis Deep Vein Acute Calf Right (HCC) 10/27/2018 Monitoring For Therapeutic Drug Therapy 10/27/2018 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 10/27/2018 Atrial Fibrillation Unspecified (HCC) 10/31/2018 Atrial Fibrillation Unspecified (HCC) 10/31/2018 Atrial Fibrillation Unspecified (HCC) 11/03/2018 Monitoring For Therapeutic Drug Therapy 11/03/2018 Assisted (Current) Anticoagulant Treatment 11/03/2018 Anticoagulant Therapy 11/03/2018 Thrombosis Deep Vein Acute Calf Right (HCC) 11/03/2018 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 11/03/2018 Monitoring For Therapeutic Drug Therapy 11/03/2018 Thrombosis Deep Vein Acute Calf Right (HCC) 11/03/2018 Thrombosis Deep Vein Acute Calf Right (HCC) 11/17/2018 Monitoring For Therapeutic Drug Therapy 11/17/2018 Assisted (Current) Anticoagulant Treatment 11/17/2018 Thrombosis Deep Vein Acute Calf Right (HCC) 12/01/2018 Monitoring For Therapeutic Drug Therapy 12/01/2018 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 12/01/2018 Primary Osteoarthritis Knee Right 12/02/2018 Rotator Cuff Disorder Right 12/02/2018 Primary Osteoarthritis Knee Right 12/02/2018 Rotator Cuff Disorder Right 12/02/2018 Preoperative Exam 12/02/2018 Sleep Apnea 12/02/2018 Maintenance Health Adult 12/02/2018 Hypertensive Heart Disease With Heart Failure (HCC) 12/02/2018 Hyperlipidemia 12/02/2018 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 12/02/2018 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 12/21/2018 Monitoring For Therapeutic Drug Therapy 12/21/2018 Thrombosis Deep Vein Acute Calf Right (HCC) 12/21/2018 Rotator Cuff Disorder Right 12/21/2018 Pain Shoulder Right 12/21/2018 Primary Osteoarthritis Shoulder Right 12/21/2018 Tear Rotator Cuff Initial Right 12/21/2018 Thrombosis Deep Vein Acute Calf Right (HCC) 01/05/2019 Monitoring For Therapeutic Drug Therapy 01/05/2019 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 01/05/2019 Atrial Fibrillation Unspecified (HCC) 02/16/2019 Monitoring For Therapeutic Drug Therapy 02/16/2019 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 02/16/2019 Anticoagulant Therapy 02/16/2019 Thrombosis Deep Vein Acute Calf Right (HCC) 02/16/2019 Atrial Fibrillation Unspecified (HCC) 02/20/2019 Other Heart Disorders In Diseases Classified Elsewhere 02/20/2019 Pain Chest 02/20/2019 Atrial Fibrillation Paroxysmal (HCC) 02/20/2019 Primary Osteoarthritis Knee Right 02/20/2019 Thrombosis Deep Vein Acute Calf Right (HCC) 02/23/2019 Monitoring For Therapeutic Drug Therapy 02/23/2019 Assisted (Current) Anticoagulant Treatment 02/23/2019 Thrombosis Deep Vein Acute Calf Right (HCC) 03/09/2019 Monitoring For Therapeutic Drug Therapy 03/09/2019 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 03/09/2019 Atrial Fibrillation Unspecified (HCC) 03/15/2019 Pain Chest 03/15/2019 Pain Chest 03/28/2019 Atrial Fibrillation Paroxysmal (HCC) 03/28/2019 Other Heart Disorders In Diseases Classified Elsewhere 03/28/2019 Pain Chest 03/28/2019 Primary Osteoarthritis Knee Right 04/17/2019 Atrial Fibrillation Unspecified (HCC) 04/27/2019 Monitoring For Therapeutic Drug Therapy 04/27/2019 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 04/27/2019 Anticoagulant Therapy 04/27/2019 Thrombosis Deep Vein Acute Calf Right (HCC) 04/27/2019 Hyperlipidemia 05/11/2019 Thrombosis Deep Vein Acute Calf Right (HCC) 05/11/2019 Monitoring For Therapeutic Drug Therapy 05/11/2019 Assisted (Current) Anticoagulant Treatment 05/11/2019 Pain Breast 05/15/2019 Sleep Apnea 05/15/2019 Pain Breast 05/16/2019 Pain Breast 05/16/2019 Atrial Fibrillation Unspecified (HCC) 05/25/2019 Monitoring For Therapeutic Drug Therapy 05/25/2019 Assisted (Current) Anticoagulant Treatment 05/25/2019 Anticoagulant Therapy 05/25/2019 Thrombosis Deep Vein Acute Calf Right (HCC) 05/25/2019 Apnea Sleep Obstructive 06/08/2019 Thrombosis Deep Vein Acute Calf Right (HCC) 06/15/2019 Monitoring For Therapeutic Drug Therapy 06/15/2019 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 06/15/2019 Primary Osteoarthritis Knee Right 07/03/2019 Primary Osteoarthritis Knee Right 07/03/2019 Viral Syndrome 07/03/2019 Thrombosis Deep Vein Acute Calf Right (HCC) 07/03/2019 Sleep Apnea 07/03/2019 Primary Osteoarthritis Knee Right 07/03/2019 Metabolizer CY Poor 07/03/2019 Metabolizer CYP2D6 Rapid 07/03/2019 Maintenance Health Adult 07/03/2019 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 07/03/2019 Hypertensive Heart Disease With Heart Failure (HCC) 07/03/2019 Hyperlipidemia 07/03/2019 Major Depressive Disorder, Recurrent, Unspecified (HCC) 07/03/2019 Primary Osteoarthritis Knee Right 07/12/2019 Atrial Fibrillation Paroxysmal (HCC) 07/12/2019 Primary Osteoarthritis Knee Right 07/12/2019 Hyperlipidemia 07/12/2019 Primary Osteoarthritis Knee Right 07/12/2019 Thrombosis Deep Vein Acute Calf Right (HCC) 08/03/2019 Monitoring For Therapeutic Drug Therapy 08/03/2019 Assisted (Current) Anticoagulant Treatment 08/03/2019 Atrial Fibrillation Paroxysmal (HCC) 09/07/2019 Thrombosis Deep Vein Acute Calf Right (HCC) 09/07/2019 Assisted (Current) Anticoagulant Treatment 09/07/2019 Monitoring For Therapeutic Drug Therapy 09/07/2019 Thrombosis Deep Vein Acute Calf Right (HCC) 09/07/2019 Monitoring For Therapeutic Drug Therapy 09/07/2019 Assisted (Current) Anticoagulant Treatment 09/07/2019 Thrombosis Deep Vein Acute Calf Right (HCC) 10/19/2019 Monitoring For Therapeutic Drug Therapy 10/19/2019 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 10/19/2019 Atrial Fibrillation Paroxysmal (HCC) 10/19/2019 Thrombosis Deep Vein Acute Calf Right (HCC) 10/27/2019 Monitoring For Therapeutic Drug Therapy 10/27/2019 Assisted (Current) Anticoagulant Treatment 10/27/2019 Atrial Fibrillation Paroxysmal (HCC) 10/27/2019 Thrombosis Deep Vein Acute Calf Right (HCC) 11/09/2019 Monitoring For Therapeutic Drug Therapy 11/09/2019 Assisted (Current) Anticoagulant Treatment 11/09/2019 Atrial Fibrillation Paroxysmal (HCC) 11/09/2019 Thrombosis Deep Vein Acute Calf Right (HCC) 11/13/2019 Monitoring For Therapeutic Drug Therapy 11/13/2019 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 11/13/2019 Atrial Fibrillation Paroxysmal (HCC) 11/13/2019 Thrombosis Deep Vein Acute Calf Right (HCC) 11/13/2019 Monitoring For Therapeutic Drug Therapy 11/13/2019 Assisted (Current) Anticoagulant Treatment 11/13/2019 Atrial Fibrillation Paroxysmal (HCC) 11/13/2019 Dysuria 11/20/2019 Urgency Urinary 11/20/2019 Neuropathy 11/20/2019 Thrombosis Deep Vein Acute Calf Right (HCC) 11/23/2019 Monitoring For Therapeutic Drug Therapy 11/23/2019 Assisted (Current) Anticoagulant Treatment 11/23/2019 Atrial Fibrillation Paroxysmal (HCC) 11/23/2019 Thrombosis Deep Vein Acute Calf Right (HCC) 11/30/2019 Monitoring For Therapeutic Drug Therapy 11/30/2019 Assisted (Current) Anticoagulant Treatment 11/30/2019 Atrial Fibrillation Paroxysmal (HCC) 11/30/2019 Thrombosis Deep Vein Acute Calf Right (HCC) 12/21/2019 Monitoring For Therapeutic Drug Therapy 12/21/2019 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 12/21/2019 Atrial Fibrillation Paroxysmal (HCC) 12/21/2019 Thrombosis Deep Vein Acute Calf Right (HCC) 01/11/2020 Monitoring For Therapeutic Drug Therapy 01/11/2020 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 01/11/2020 Atrial Fibrillation Paroxysmal (HCC) 01/11/2020 Atrial Fibrillation Paroxysmal (HCC) 03/05/2020 Assisted (Current) Anticoagulant Treatment 03/05/2020 Monitoring For Therapeutic Drug Therapy 03/05/2020 Thrombosis Deep Vein Acute Calf Right (HCC) 03/05/2020 Atrial Fibrillation Unspecified (HCC) 03/30/2020 Atrial Fibrillation Unspecified (HCC) 04/05/2020 Atrial Fibrillation Paroxysmal (HCC) 04/05/2020 Nightmare Disorder 04/05/2020 Atrial Fibrillation Unspecified (HCC) 04/05/2020 Atrial Fibrillation Unspecified (HCC) 04/05/2020 Thrombosis Deep Vein Acute Calf Right (HCC) 05/01/2020 Monitoring For Therapeutic Drug Therapy 05/01/2020 Assisted (Current) Anticoagulant Treatment 05/01/2020 Atrial Fibrillation Paroxysmal (HCC) 05/01/2020 Screening Mammogram Breast Cancer 05/02/2020 Thrombosis Deep Vein Acute Calf Right (HCC) 06/26/2020 Monitoring For Therapeutic Drug Therapy 06/26/2020 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 06/26/2020 Atrial Fibrillation Paroxysmal (HCC) 06/26/2020 Screening Cancer Colon 07/01/2020 Screening Cancer Colon 07/03/2020 Screening Mammogram Breast Cancer 07/03/2020 Thrombosis Deep Vein Acute Calf Right (HCC) 07/25/2020 Monitoring For Therapeutic Drug Therapy 07/25/2020 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 07/25/2020 Atrial Fibrillation Paroxysmal (HCC) 07/25/2020 Thrombosis Deep Vein Acute Calf Right (HCC) 07/30/2020 Monitoring For Therapeutic Drug Therapy 07/30/2020 Assisted (Current) Anticoagulant Treatment 07/30/2020 Atrial Fibrillation Paroxysmal (HCC) 07/30/2020 Vaginitis 08/07/2020 Lesion Vulva 08/07/2020 Thrombosis Deep Vein Acute Calf Right (HCC) 08/13/2020 Monitoring For Therapeutic Drug Therapy 08/13/2020 Assisted (Current) Anticoagulant Treatment 08/13/2020 Atrial Fibrillation Paroxysmal (HCC) 08/13/2020 Infection Upper Respiratory 08/20/2020 Cough Unspecified Type 08/20/2020 Thrombosis Deep Vein Acute Calf Right (HCC) 08/20/2020 Monitoring For Therapeutic Drug Therapy 08/20/2020 Assisted (Current) Anticoagulant Treatment 08/20/2020 Atrial Fibrillation Paroxysmal (HCC) 08/20/2020 Cough Unspecified Type 08/21/2020 Thrombosis Deep Vein Acute Calf Right (HCC) 08/23/2020 Monitoring For Therapeutic Drug Therapy 08/23/2020 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 08/23/2020 Atrial Fibrillation Paroxysmal (HCC) 08/23/2020 Cough Unspecified Type 08/29/2020 Thrombosis Deep Vein Acute Calf Right (HCC) 08/29/2020 Monitoring For Therapeutic Drug Therapy 08/29/2020 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 08/29/2020 Atrial Fibrillation Paroxysmal (HCC) 08/29/2020 Cough Unspecified Type 08/30/2020 Hoarseness 08/30/2020 COVID-19 Infection 09/02/2020 Atrial Fibrillation Paroxysmal (HCC) 09/02/2020 Assisted (Current) Anticoagulant Treatment 09/02/2020 Monitoring For Therapeutic Drug Therapy 09/02/2020 Thrombosis Deep Vein Acute Calf Right (HCC) 09/02/2020 COVID-19 Infection 09/03/2020 COVID-19 Infection 09/04/2020 COVID-19 Infection 09/05/2020 COVID-19 Infection 09/05/2020 COVID-19 Infection 09/06/2020 COVID-19 Infection 09/07/2020 Assisted (Current) Anticoagulant Treatment 09/09/2020 COVID-19 Infection 09/09/2020 Thrombosis Deep Vein Acute Calf Right (HCC) 09/09/2020 Atrial Fibrillation Paroxysmal (HCC) 09/09/2020 Monitoring For Therapeutic Drug Therapy 09/09/2020 Assisted (Current) Anticoagulant Treatment 09/09/2020 COVID-19 Infection 09/09/2020 Pneumonia Due To COVID-19 09/08/2020 Dehydration 09/08/2020 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 09/08/2020 Atrial Fibrillation Paroxysmal (HCC) 09/08/2020 Major Depressive Disorder, Recurrent, Unspecified (HCC) 09/08/2020 Thrombosis Deep Vein Acute Calf Right (HCC) 09/08/2020 COVID-19 Infection 09/08/2020 Monitoring For Therapeutic Drug Therapy 09/08/2020 COVID-19 Infection 09/10/2020 Atrial Fibrillation Paroxysmal (HCC) 09/11/2020 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 09/11/2020 Monitoring For Therapeutic Drug Therapy 09/11/2020 Thrombosis Deep Vein Acute Calf Right (HCC) 09/11/2020 COVID-19 Infection 09/11/2020 Viral Syndrome 09/11/2020 Anemia 09/11/2020 Pneumonia Due To COVID-19 09/11/2020 Atrial Fibrillation Paroxysmal (HCC) 09/12/2020 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 09/12/2020 Monitoring For Therapeutic Drug Therapy 09/12/2020 Thrombosis Deep Vein Acute Calf Right (HCC) 09/12/2020 Atrial Fibrillation Paroxysmal (HCC) 09/12/2020 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 09/12/2020 Monitoring For Therapeutic Drug Therapy 09/12/2020 Thrombosis Deep Vein Acute Calf Right (HCC) 09/12/2020 Viral Syndrome 09/12/2020 Anemia 09/12/2020 Pneumonia Due To COVID-19 09/12/2020 Assisted (Current) Anticoagulant Treatment 09/13/2020 COVID-19 Infection 09/13/2020 Assisted (Current) Anticoagulant Treatment 09/13/2020 COVID-19 Infection 09/13/2020 COVID-19 Infection 09/14/2020 Atrial Fibrillation Paroxysmal (HCC) 09/16/2020 Assisted (Current) Anticoagulant Treatment 09/16/2020 Monitoring For Therapeutic Drug Therapy 09/16/2020 Thrombosis Deep Vein Acute Calf Right (HCC) 09/16/2020 Atrial Fibrillation Paroxysmal (HCC) 09/23/2020 Assisted (Current) Anticoagulant Treatment 09/23/2020 Monitoring For Therapeutic Drug Therapy 09/23/2020 Thrombosis Deep Vein Acute Calf Right (HCC) 09/23/2020 Cough Unspecified Type 09/25/2020 Monitoring For Therapeutic Drug Therapy 09/30/2020 Assisted (Current) Anticoagulant Treatment 09/30/2020 Atrial Fibrillation Paroxysmal (HCC) 09/30/2020 Thrombosis Deep Vein Acute Calf Right (HCC) 09/30/2020 COVID-19 Infection 10/04/2020 Atrial Fibrillation Paroxysmal (HCC) 10/07/2020 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 10/07/2020 Monitoring For Therapeutic Drug Therapy 10/07/2020 Thrombosis Deep Vein Acute Calf Right (HCC) 10/07/2020 Atrial Fibrillation Paroxysmal (HCC) 10/08/2020 Respiratory Infection Type Unknown Due To COVID-19 10/11/2020 Cough Unspecified Type 10/11/2020 Other Dyspnea 10/11/2020 Respiratory Infection Type Unknown Due To COVID-19 10/11/2020 Bronchitis Chronic (HCC) 10/11/2020 Cough Unspecified Type 10/11/2020 Other Dyspnea 10/11/2020 Gastroesophageal Reflux Disease Without Esophagitis 10/11/2020 COVID-19 Infection 10/14/2020 Gastroesophageal Reflux Disease Without Esophagitis 10/15/2020 Monitoring For Therapeutic Drug Therapy 10/15/2020 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 10/15/2020 Atrial Fibrillation Paroxysmal (HCC) 10/15/2020 Thrombosis Deep Vein Acute Calf Right (HCC) 10/15/2020 Hernia Hiatal 10/21/2020 Atrial Fibrillation Paroxysmal (HCC) 10/26/2020 Monitoring For Therapeutic Drug Therapy 10/29/2020 Assisted (Current) Anticoagulant Treatment 10/29/2020 Atrial Fibrillation Paroxysmal (HCC) 10/29/2020 Thrombosis Deep Vein Acute Calf Right (HCC) 10/29/2020 Assisted (Current) Anticoagulant Treatment 11/26/2020 Atrial Fibrillation Paroxysmal (HCC) 11/26/2020 Monitoring For Therapeutic Drug Therapy 11/26/2020 Assisted (Current) Anticoagulant Treatment 11/26/2020 Atrial Fibrillation Paroxysmal (HCC) 11/26/2020 Thrombosis Deep Vein Acute Calf Right (HCC) 11/26/2020 Cough Unspecified Type 11/26/2020 Dyspnea 11/26/2020 Gastroesophageal Reflux Disease Without Esophagitis 11/27/2020 Dyspnea 11/27/2020 Dyspnea 11/27/2020 Dyspnea 12/03/2020 Sleep Apnea 12/03/2020 Primary Osteoarthritis Knee Right 12/05/2020 Monitoring For Therapeutic Drug Therapy 12/12/2020 Assisted (Current) Anticoagulant Treatment 12/12/2020 Atrial Fibrillation Paroxysmal (HCC) 12/12/2020 Thrombosis Deep Vein Acute Calf Right (HCC) 12/12/2020 Thrombosis Deep Vein Acute Calf Right (HCC) 12/19/2020 Monitoring For Therapeutic Drug Therapy 12/19/2020 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 12/19/2020 Atrial Fibrillation Paroxysmal (HCC) 12/19/2020 Monitoring For Therapeutic Drug Therapy 02/20/2021 Assisted (Current) Anticoagulant Treatment 02/20/2021 Atrial Fibrillation Paroxysmal (HCC) 02/20/2021 Thrombosis Deep Vein Acute Calf Right (HCC) 02/20/2021 Atrial Fibrillation Paroxysmal (HCC) 02/24/2021 Atrial Fibrillation Paroxysmal (HCC) 02/24/2021 Atrial Fibrillation Paroxysmal (HCC) 02/25/2021 Sleep Apnea 02/26/2021 Inadequate Sleep Hygiene 02/26/2021 Lesion Vagina 03/31/2021 Hyperlipidemia 04/17/2021 Monitoring For Therapeutic Drug Therapy 04/17/2021 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 04/17/2021 Atrial Fibrillation Paroxysmal (HCC) 04/17/2021 Thrombosis Deep Vein Acute Calf Right (HCC) 04/17/2021 Restless Leg Syndrome 04/22/2021 Primary Osteoarthritis Knee Right 06/03/2021 Atrial Fibrillation Paroxysmal (HCC) 06/12/2021 Atrial Fibrillation Paroxysmal (HCC) 06/12/2021 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 06/12/2021 Monitoring For Therapeutic Drug Therapy 06/12/2021 Thrombosis Deep Vein Acute Calf Right (HCC) 06/12/2021 Atrial Fibrillation Paroxysmal (HCC) 06/12/2021 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 06/12/2021 Monitoring For Therapeutic Drug Therapy 06/12/2021 Thrombosis Deep Vein Acute Calf Right (HCC) 06/12/2021 Thrombosis Deep Vein Acute Calf Right (HCC) 06/16/2021 Monitoring For Therapeutic Drug Therapy 06/16/2021 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 06/16/2021 Atrial Fibrillation Paroxysmal (HCC) 06/16/2021 Atrial Fibrillation Paroxysmal (HCC) 06/17/2021 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 06/17/2021 Monitoring For Therapeutic Drug Therapy 06/17/2021 Thrombosis Deep Vein Acute Calf Right (HCC) 06/17/2021 Atrial Fibrillation Paroxysmal (HCC) 06/17/2021 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 06/17/2021 Monitoring For Therapeutic Drug Therapy 06/17/2021 Thrombosis Deep Vein Acute Calf Right (HCC) 06/17/2021 Contact With And (Suspected) Exposure To COVID-19 06/25/2021 Cough (Concern For Covid-19) 06/25/2021 Bronchitis Chronic (HCC) 06/25/2021 Hypertensive Heart Disease With Heart Failure (HCC) 06/25/2021 Atrial Fibrillation Paroxysmal (HCC) 06/25/2021 Personal History Of Infectious And Parasitic Disease (COVID-19) 06/25/2021 Cough (Concern For Covid-19) 06/25/2021 Atrial Fibrillation Paroxysmal (HCC) 06/27/2021 Assisted (Current) Anticoagulant Treatment 06/27/2021 Monitoring For Therapeutic Drug Therapy 06/27/2021 Thrombosis Deep Vein Acute Calf Right (HCC) 06/27/2021 Atrial Fibrillation Paroxysmal (HCC) 06/27/2021 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 06/27/2021 Monitoring For Therapeutic Drug Therapy 06/27/2021 Thrombosis Deep Vein Acute Calf Right (HCC) 06/27/2021 Screening Mammogram Breast Cancer 07/08/2021 Dense Breasts, Unspecified 07/10/2021 Dense Breasts, Unspecified 07/14/2021 Atrial Fibrillation Paroxysmal (HCC) 07/25/2021 Assisted (Current) Anticoagulant Treatment 07/25/2021 Monitoring For Therapeutic Drug Therapy 07/25/2021 Thrombosis Deep Vein Acute Calf Right (HCC) 07/25/2021 Atrial Fibrillation Paroxysmal (HCC) 07/28/2021 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 07/28/2021 Monitoring For Therapeutic Drug Therapy 07/28/2021 Thrombosis Deep Vein Acute Calf Right (HCC) 07/28/2021 Atrial Fibrillation Paroxysmal (HCC) 08/01/2021 Atrial Fibrillation Paroxysmal (HCC) 08/04/2021 Monitoring For Therapeutic Drug Therapy 08/05/2021 Atrial Fibrillation Paroxysmal (HCC) 08/05/2021 Assisted (Current) Anticoagulant Treatment 08/05/2021 Monitoring For Therapeutic Drug Therapy 08/05/2021 Thrombosis Deep Vein Acute Calf Right (HCC) 08/05/2021 Hypertensive Heart Disease With Heart Failure (HCC) 08/08/2021 Atrial Fibrillation Paroxysmal (HCC) 08/18/2021 Assisted (Current) Anticoagulant Treatment 08/18/2021 Monitoring For Therapeutic Drug Therapy 08/18/2021 Thrombosis Deep Vein Acute Calf Right (HCC) 08/18/2021 Atrial Fibrillation Paroxysmal (HCC) 08/18/2021 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 08/18/2021 Monitoring For Therapeutic Drug Therapy 08/18/2021 Thrombosis Deep Vein Acute Calf Right (HCC) 08/18/2021 Atrial Fibrillation Paroxysmal (HCC) 09/08/2021 Atrial Fibrillation Paroxysmal (HCC) 09/08/2021 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 09/08/2021 Monitoring For Therapeutic Drug Therapy 09/08/2021 Thrombosis Deep Vein Acute Calf Right (HCC) 09/08/2021 Atrial Fibrillation Paroxysmal (HCC) 09/08/2021 Assisted (Current) Anticoagulant Treatment 09/08/2021 Monitoring For Therapeutic Drug Therapy 09/08/2021 Thrombosis Deep Vein Acute Calf Right (HCC) 09/08/2021 Atrial Fibrillation Paroxysmal (HCC) 09/08/2021 Monitoring For Therapeutic Drug Therapy 09/08/2021 Thrombosis Deep Vein Acute Calf Right (HCC) 09/09/2021 Monitoring For Therapeutic Drug Therapy 09/09/2021 Assisted (Current) Anticoagulant Treatment 09/09/2021 Atrial Fibrillation Paroxysmal (HCC) 09/09/2021 Thrombosis Deep Vein Personal History 09/16/2021 Major Depressive Disorder, Recurrent, Unspecified (HCC) 09/16/2021 Hyperlipidemia 09/16/2021 Hypertension Essential Primary 09/16/2021 Maintenance Health Adult 09/16/2021 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 09/16/2021 Restless Leg Syndrome 09/16/2021 Personal History Of Infectious And Parasitic Disease (COVID-19) 09/16/2021 Metabolizer CYP2D6 Rapid 09/16/2021 Gastroesophageal Reflux Disease Without Esophagitis 09/16/2021 Atrial Fibrillation Paroxysmal (HCC) 09/16/2021 Asthma Mild Intermittent (HCC) 09/16/2021 Thrombosis Deep Vein Acute Calf Right (HCC) 09/16/2021 Monitoring For Therapeutic Drug Therapy 09/16/2021 Atrial Fibrillation Paroxysmal (HCC) 09/20/2021 Atrial Fibrillation Paroxysmal (HCC) 11/04/2021 Assisted (Current) Anticoagulant Treatment 11/04/2021 Monitoring For Therapeutic Drug Therapy 11/04/2021 Thrombosis Deep Vein Acute Calf Right (HCC) 11/04/2021 Thrombosis Deep Vein Personal History 11/04/2021 Atrial Fibrillation Paroxysmal (HCC) 11/18/2021 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 11/18/2021 Monitoring For Therapeutic Drug Therapy 11/18/2021 Thrombosis Deep Vein Acute Calf Right (HCC) 11/18/2021 Thrombosis Deep Vein Personal History 11/18/2021 Atrial Fibrillation Paroxysmal (HCC) 11/21/2021 Assisted (Current) Anticoagulant Treatment 11/21/2021 Monitoring For Therapeutic Drug Therapy 11/21/2021 Thrombosis Deep Vein Acute Calf Right (HCC) 11/21/2021 Thrombosis Deep Vein Personal History 11/21/2021 Atrial Fibrillation Paroxysmal (HCC) 12/02/2021 Assisted (Current) Anticoagulant Treatment 12/02/2021 Monitoring For Therapeutic Drug Therapy 12/02/2021 Thrombosis Deep Vein Acute Calf Right (HCC) 12/02/2021 Thrombosis Deep Vein Personal History 12/02/2021 Atrial Fibrillation Paroxysmal (HCC) 12/03/2021 Thrombosis Deep Vein Personal History 12/03/2021 Monitoring For Therapeutic Drug Therapy 12/03/2021 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 12/03/2021 Atrial Fibrillation Paroxysmal (HCC) 12/16/2021 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 12/16/2021 Monitoring For Therapeutic Drug Therapy 12/16/2021 Thrombosis Deep Vein Acute Calf Right (HCC) 12/16/2021 Thrombosis Deep Vein Personal History 12/16/2021 Atrial Fibrillation Paroxysmal (HCC) 12/22/2021 Assisted (Current) Anticoagulant Treatment 12/22/2021 Monitoring For Therapeutic Drug Therapy 12/22/2021 Thrombosis Deep Vein Personal History 12/22/2021 Atrial Fibrillation Paroxysmal (HCC) 12/25/2021 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 12/25/2021 Monitoring For Therapeutic Drug Therapy 12/25/2021 Thrombosis Deep Vein Personal History 12/25/2021 Atrial Fibrillation Paroxysmal (HCC) 12/29/2021 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 12/29/2021 Monitoring For Therapeutic Drug Therapy 12/29/2021 Thrombosis Deep Vein Personal History 12/29/2021 Atrial Fibrillation Paroxysmal (HCC) 12/29/2021 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 12/29/2021 Monitoring For Therapeutic Drug Therapy 12/29/2021 Thrombosis Deep Vein Personal History 12/29/2021 Atrial Fibrillation Paroxysmal (HCC) 12/30/2021 Assisted (Current) Anticoagulant Treatment 12/30/2021 Monitoring For Therapeutic Drug Therapy 12/30/2021 Thrombosis Deep Vein Personal History 12/30/2021 Atrial Fibrillation Paroxysmal (HCC) 01/05/2022 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 01/05/2022 Monitoring For Therapeutic Drug Therapy 01/05/2022 Thrombosis Deep Vein Personal History 01/05/2022 Atrial Fibrillation Paroxysmal (HCC) 01/08/2022 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 01/08/2022 Monitoring For Therapeutic Drug Therapy 01/08/2022 Thrombosis Deep Vein Personal History 01/08/2022 Atrial Fibrillation Paroxysmal (HCC) 01/08/2022 Assisted (Current) Anticoagulant Treatment 01/08/2022 Monitoring For Therapeutic Drug Therapy 01/08/2022 Thrombosis Deep Vein Personal History 01/08/2022 Atrial Fibrillation Paroxysmal (HCC) 01/12/2022 Assisted (Current) Anticoagulant Treatment 01/12/2022 Monitoring For Therapeutic Drug Therapy 01/12/2022 Thrombosis Deep Vein Personal History 01/12/2022 Atrial Fibrillation Paroxysmal (HCC) 01/19/2022 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 01/19/2022 Monitoring For Therapeutic Drug Therapy 01/19/2022 Thrombosis Deep Vein Personal History 01/19/2022 Hyperlipidemia 01/20/2022 Atrial Fibrillation Paroxysmal (HCC) 01/26/2022 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 01/26/2022 Monitoring For Therapeutic Drug Therapy 01/26/2022 Thrombosis Deep Vein Personal History 01/26/2022 Atrial Fibrillation Paroxysmal (HCC) 02/02/2022 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 02/02/2022 Monitoring For Therapeutic Drug Therapy 02/02/2022 Thrombosis Deep Vein Personal History 02/02/2022 Atrial Fibrillation Paroxysmal (HCC) 02/09/2022 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 02/09/2022 Monitoring For Therapeutic Drug Therapy 02/09/2022 Thrombosis Deep Vein Personal History 02/09/2022 Atrial Fibrillation Paroxysmal (HCC) 02/16/2022 Assisted (Current) Anticoagulant Treatment 02/16/2022 Monitoring For Therapeutic Drug Therapy 02/16/2022 Thrombosis Deep Vein Personal History 02/16/2022 Primary Osteoarthritis Knee Right 02/19/2022 Polyp Colon 02/20/2022 Atrial Fibrillation Paroxysmal (HCC) 02/23/2022 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 02/23/2022 Monitoring For Therapeutic Drug Therapy 02/23/2022 Thrombosis Deep Vein Personal History 02/23/2022 Primary Osteoarthritis Knee Right 03/02/2022 Primary Osteoarthritis Knee Right 03/02/2022 Primary Osteoarthritis Knee Right 03/02/2022 Restless Leg Syndrome 03/03/2022 Atrial Fibrillation Paroxysmal (HCC) 03/16/2022 Atrial Fibrillation Paroxysmal (HCC) 03/16/2022 Hyperlipidemia 03/16/2022 Hyperlipidemia 03/17/2022 Atrial Fibrillation Paroxysmal (HCC) 03/21/2022 Cough Unspecified Type 03/22/2022 Cough Unspecified Type 03/22/2022 Bronchitis Acute 03/22/2022 Atrial Fibrillation Paroxysmal (HCC) 03/23/2022 Assisted (Current) Anticoagulant Treatment 03/23/2022 Monitoring For Therapeutic Drug Therapy 03/23/2022 Thrombosis Deep Vein Personal History 03/23/2022 Hyperlipidemia 03/26/2022 Viral Syndrome 03/26/2022 Atrial Fibrillation Paroxysmal (HCC) 03/26/2022 Assisted (Current) Anticoagulant Treatment 03/26/2022 Monitoring For Therapeutic Drug Therapy 03/26/2022 Thrombosis Deep Vein Personal History 03/26/2022 Gastroesophageal Reflux Disease Without Esophagitis 03/27/2022 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 03/27/2022 Viral Syndrome 03/27/2022 Gastroesophageal Reflux Disease Without Esophagitis 03/27/2022 Atrial Fibrillation Paroxysmal (HCC) 03/27/2022 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 03/27/2022 Monitoring For Therapeutic Drug Therapy 03/27/2022 Thrombosis Deep Vein Personal History 03/27/2022 Sore Throat 03/29/2022 Cough Unspecified Type 03/29/2022 Conjunctivitis Acute Bilateral 03/29/2022 Contact With And (Suspected) Exposure To COVID-19 03/30/2022 Gastroesophageal Reflux Disease Without Esophagitis 04/02/2022 Gastroesophageal Reflux Disease Without Esophagitis 04/02/2022 Preanesthetic Medical Exam 04/08/2022 Atrial Fibrillation Paroxysmal (HCC) 04/09/2022 Assisted (Current) Anticoagulant Treatment 04/09/2022 Monitoring For Therapeutic Drug Therapy 04/09/2022 Thrombosis Deep Vein Personal History 04/09/2022 Atrial Fibrillation Paroxysmal (HCC) 04/16/2022 Assisted (Current) Anticoagulant Treatment 04/16/2022 Monitoring For Therapeutic Drug Therapy 04/16/2022 Thrombosis Deep Vein Personal History 04/16/2022 Atrial Fibrillation Paroxysmal (HCC) 04/23/2022 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 04/23/2022 Monitoring For Therapeutic Drug Therapy 04/23/2022 Thrombosis Deep Vein Personal History 04/23/2022 Gastroesophageal Reflux Disease Without Esophagitis 04/23/2022 Atrial Fibrillation Paroxysmal (HCC) 05/04/2022 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 05/04/2022 Monitoring For Therapeutic Drug Therapy 05/04/2022 Thrombosis Deep Vein Personal History 05/04/2022 Thrombosis Deep Vein Personal History 05/07/2022 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 05/07/2022 Monitoring For Therapeutic Drug Therapy 05/07/2022 Atrial Fibrillation Paroxysmal (HCC) 05/07/2022 Primary Osteoarthritis Knee Right 05/14/2022 Atrial Fibrillation Paroxysmal (HCC) 05/25/2022 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 05/25/2022 Monitoring For Therapeutic Drug Therapy 05/25/2022 Thrombosis Deep Vein Personal History 05/25/2022 Polyp Colon 06/05/2022 Dehydration 06/05/2022 Lightheadedness 06/05/2022 Atrial Fibrillation Unspecified (HCC) 06/05/2022 Atrial Fibrillation Paroxysmal (HCC) 06/08/2022 Atrial Fibrillation Paroxysmal (HCC) 06/08/2022 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 06/08/2022 Monitoring For Therapeutic Drug Therapy 06/08/2022 Thrombosis Deep Vein Personal History 06/08/2022 Polyp Colon Adenomatous Personal History 06/16/2022 Depression Major Recurrent Full Remission (HCC) 06/17/2022 Atrial Fibrillation Paroxysmal (HCC) 06/17/2022 Asthma Mild Intermittent (HCC) 06/17/2022 History Of Falling 06/17/2022 Primary Osteoarthritis Knee Right 06/17/2022 Thrombosis Deep Vein Personal History 06/17/2022 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 06/17/2022 Maintenance Health Adult 06/17/2022 Hypertension Essential Primary 06/17/2022 Preoperative Exam 06/17/2022 Thrombosis Deep Vein Personal History 06/29/2022 Assisted (Current) Anticoagulant Treatment 06/29/2022 Monitoring For Therapeutic Drug Therapy 06/29/2022 Atrial Fibrillation Paroxysmal (HCC) 06/29/2022 Atrial Fibrillation Paroxysmal (HCC) 07/06/2022 Assisted (Current) Anticoagulant Treatment 07/06/2022 Monitoring For Therapeutic Drug Therapy 07/06/2022 Thrombosis Deep Vein Personal History 07/06/2022 Atrial Fibrillation Paroxysmal (HCC) 07/21/2022 Assisted (Current) Anticoagulant Treatment 07/21/2022 Monitoring For Therapeutic Drug Therapy 07/21/2022 Thrombosis Deep Vein Personal History 07/21/2022 Restless Leg Syndrome 07/21/2022 Screening Mammogram Breast Cancer 07/28/2022 Atrial Fibrillation Paroxysmal (HCC) 08/04/2022 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 08/04/2022 Monitoring For Therapeutic Drug Therapy 08/04/2022 Thrombosis Deep Vein Personal History 08/04/2022 Headache New 08/09/2022 Hypertension Borderline 08/09/2022 Atrial Fibrillation Paroxysmal (HCC) 08/17/2022 Screening Mammogram Breast Cancer 08/20/2022 Thrombosis Deep Vein Personal History 08/31/2022 Assisted (Current) Anticoagulant Treatment 08/31/2022 Monitoring For Therapeutic Drug Therapy 08/31/2022 Atrial Fibrillation Paroxysmal (HCC) 08/31/2022 Atrial Fibrillation Paroxysmal (HCC) 09/07/2022 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 09/07/2022 Monitoring For Therapeutic Drug Therapy 09/07/2022 Thrombosis Deep Vein Personal History 09/07/2022 Thrombosis Deep Vein Personal History 09/28/2022 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 09/28/2022 Monitoring For Therapeutic Drug Therapy 09/28/2022 Atrial Fibrillation Paroxysmal (HCC) 09/28/2022 Atrial Fibrillation Unspecified (HCC) 10/20/2022 Dyspnea On Exertion 10/20/2022 Atrial Fibrillation Paroxysmal (HCC) 10/20/2022 Thrombosis Deep Vein Personal History 10/26/2022 Assisted (Current) Anticoagulant Treatment 10/26/2022 Monitoring For Therapeutic Drug Therapy 10/26/2022 Atrial Fibrillation Paroxysmal (HCC) 10/26/2022 Deficiency Estrogen Post Menopausal 10/27/2022 Atrial Fibrillation Unspecified (HCC) 11/04/2022 Atrial Fibrillation Paroxysmal (HCC) 11/11/2022 Atrial Fibrillation Unspecified (HCC) 11/12/2022 Dyspnea On Exertion 11/12/2022 Atrial Fibrillation Unspecified (HCC) 11/12/2022 Dyspnea On Exertion 11/12/2022 Dyspnea On Exertion 11/12/2022 Atrial Fibrillation Paroxysmal (HCC) 11/23/2022 Assisted (Current) Anticoagulant Treatment 11/23/2022 Monitoring For Therapeutic Drug Therapy 11/23/2022 Thrombosis Deep Vein Personal History 11/23/2022 Shortness Of Breath 11/28/2022 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 11/30/2022 Atrial Fibrillation Paroxysmal (HCC) 11/30/2022 Thrombosis Deep Vein Acute Calf Right (HCC) 11/30/2022 Monitoring For Therapeutic Drug Therapy 11/30/2022 Assisted (Current) Anticoagulant Treatment 11/30/2022 Atrial Fibrillation Paroxysmal (HCC) 11/30/2022 Thrombosis Deep Vein Acute Calf Right (HCC) 11/30/2022 Monitoring For Therapeutic Drug Therapy 11/30/2022 Hypertension Essential Primary 11/30/2022 Atrial Fibrillation Unspecified (HCC) 12/21/2022 Atrial Fibrillation Paroxysmal (HCC) 12/21/2022 Atrial Fibrillation Paroxysmal (HCC) 12/21/2022 Thrombosis Deep Vein Personal History 12/21/2022 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 12/21/2022 Monitoring For Therapeutic Drug Therapy 12/21/2022 Restless Leg Syndrome 01/11/2023 Atrial Fibrillation Paroxysmal (HCC) 01/12/2023 Assisted (Current) Anticoagulant Treatment 01/12/2023 Monitoring For Therapeutic Drug Therapy 01/12/2023 Thrombosis Deep Vein Personal History 01/12/2023 Thrombosis Deep Vein Personal History 01/18/2023 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 01/18/2023 Monitoring For Therapeutic Drug Therapy 01/18/2023 Atrial Fibrillation Paroxysmal (HCC) 01/18/2023 Atrial Fibrillation Paroxysmal (HCC) 02/08/2023 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 02/08/2023 Monitoring For Therapeutic Drug Therapy 02/08/2023 Thrombosis Deep Vein Personal History 02/08/2023 Thrombosis Deep Vein Personal History 02/15/2023 Assisted (Current) Anticoagulant Treatment 02/15/2023 Monitoring For Therapeutic Drug Therapy 02/15/2023 Atrial Fibrillation Paroxysmal (HCC) 02/15/2023 Thrombosis Deep Vein Personal History 03/15/2023 Assisted (Current) Anticoagulant Treatment 03/15/2023 Monitoring For Therapeutic Drug Therapy 03/15/2023 Atrial Fibrillation Paroxysmal (HCC) 03/15/2023 Thrombosis Deep Vein Personal History 03/15/2023 Assisted (Current) Anticoagulant Treatment 03/15/2023 Monitoring For Therapeutic Drug Therapy 03/15/2023 Atrial Fibrillation Paroxysmal (HCC) 03/15/2023 Thrombosis Deep Vein Personal History 03/15/2023 Assisted (Current) Anticoagulant Treatment 03/15/2023 Monitoring For Therapeutic Drug Therapy 03/15/2023 Atrial Fibrillation Paroxysmal (HCC) 03/15/2023 Deficiency Estrogen Post Menopausal 03/18/2023 Atrial Fibrillation Paroxysmal (HCC) 04/05/2023 Assisted (Current) Anticoagulant Treatment 04/05/2023 Monitoring For Therapeutic Drug Therapy 04/05/2023 Thrombosis Deep Vein Personal History 04/05/2023 Atrial Fibrillation Paroxysmal (HCC) 04/07/2023 Atrial Fibrillation Paroxysmal (HCC) 04/10/2023 Atrial Fibrillation Paroxysmal (HCC) 04/19/2023 Assisted (Current) Anticoagulant Treatment 04/19/2023 Monitoring For Therapeutic Drug Therapy 04/19/2023 Thrombosis Deep Vein Personal History 04/19/2023 Atrial Fibrillation Paroxysmal (HCC) 04/19/2023 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 04/19/2023 Monitoring For Therapeutic Drug Therapy 04/19/2023 Atrial Fibrillation Paroxysmal (HCC) 04/19/2023 Assisted (Current) Anticoagulant Treatment 04/19/2023 Monitoring For Therapeutic Drug Therapy 04/19/2023 Hyperlipidemia 04/27/2023 Atrial Fibrillation Paroxysmal (HCC) 05/03/2023 Assisted (Current) Anticoagulant Treatment 05/03/2023 Monitoring For Therapeutic Drug Therapy 05/03/2023 Thrombosis Deep Vein Personal History 05/03/2023 Atrial Fibrillation Paroxysmal (HCC) 05/10/2023 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 05/10/2023 Monitoring For Therapeutic Drug Therapy 05/10/2023 Thrombosis Deep Vein Personal History 05/10/2023 Thrombosis Deep Vein Personal History 05/17/2023 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 05/17/2023 Monitoring For Therapeutic Drug Therapy 05/17/2023 Atrial Fibrillation Paroxysmal (HCC) 05/17/2023 Atrial Fibrillation Paroxysmal (HCC) 05/31/2023 Assisted (Current) Anticoagulant Treatment 05/31/2023 Monitoring For Therapeutic Drug Therapy 05/31/2023 Thrombosis Deep Vein Personal History 05/31/2023 Atrial Fibrillation Paroxysmal (HCC) 05/31/2023 Atrial Fibrillation Unspecified (HCC) 05/31/2023 Hypertension Essential Primary 05/31/2023 Hypertension Pulmonary (HCC) 05/31/2023 Obstructive Sleep Apnea Adult 05/31/2023 Atrial Fibrillation Unspecified (HCC) 05/31/2023 Incontinence Urinary 06/09/2023 Incontinence Urinary 06/09/2023 Thrombosis Deep Vein Personal History 06/14/2023 Assisted (Current) Anticoagulant Treatment 06/14/2023 Monitoring For Therapeutic Drug Therapy 06/14/2023 Atrial Fibrillation Paroxysmal (HCC) 06/14/2023 Repeated Falls 06/24/2023 Atrial Fibrillation Paroxysmal (HCC) 06/28/2023 Assisted (Current) Anticoagulant Treatment 06/28/2023 Monitoring For Therapeutic Drug Therapy 06/28/2023 Thrombosis Deep Vein Personal History 06/28/2023 Thrombosis Deep Vein Personal History 06/30/2023 Assisted (Current) Anticoagulant Treatment 06/30/2023 Monitoring For Therapeutic Drug Therapy 06/30/2023 Atrial Fibrillation Paroxysmal (HCC) 06/30/2023 Restless Leg Syndrome 07/08/2023 Atrial Fibrillation Unspecified (HCC) 07/08/2023 Thrombosis Deep Vein Personal History 07/12/2023 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 07/12/2023 Monitoring For Therapeutic Drug Therapy 07/12/2023 Atrial Fibrillation Paroxysmal (HCC) 07/12/2023 Atrial Fibrillation Unspecified (HCC) 07/20/2023 Atrial Fibrillation Paroxysmal (HCC) 07/20/2023 Atrial Fibrillation Paroxysmal (HCC) 07/19/2023 Assisted (Current) Anticoagulant Treatment 07/19/2023 Thrombosis Deep Vein Acute Calf Right (HCC) 07/19/2023 Monitoring For Therapeutic Drug Therapy 07/19/2023 Thrombosis Deep Vein Personal History 07/22/2023 Assisted (Current) Anticoagulant Treatment 07/22/2023 Monitoring For Therapeutic Drug Therapy 07/22/2023 Atrial Fibrillation Paroxysmal (HCC) 07/22/2023 Thrombosis Deep Vein Personal History 07/23/2023 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 07/23/2023 Monitoring For Therapeutic Drug Therapy 07/23/2023 Atrial Fibrillation Paroxysmal (HCC) 07/23/2023 Thrombosis Deep Vein Personal History 07/26/2023 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 07/26/2023 Monitoring For Therapeutic Drug Therapy 07/26/2023 Atrial Fibrillation Paroxysmal (HCC) 07/26/2023 Screening Mammogram Breast Cancer 08/23/2023 Thrombosis Deep Vein Personal History 08/23/2023 Assisted (Current) Anticoagulant Treatment 08/23/2023 Monitoring For Therapeutic Drug Therapy 08/23/2023 Atrial Fibrillation Paroxysmal (HCC) 08/23/2023 Atrial Fibrillation Paroxysmal (HCC) 09/02/2023 Assisted (Current) Anticoagulant Treatment 09/02/2023 Thrombosis Deep Vein Acute Calf Right (HCC) 09/02/2023 Monitoring For Therapeutic Drug Therapy 09/02/2023 Assisted (Current) Anticoagulant Treatment 09/03/2023 Atrial Fibrillation Paroxysmal (HCC) 09/06/2023 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 09/06/2023 Monitoring For Therapeutic Drug Therapy 09/06/2023 Thrombosis Deep Vein Personal History 09/06/2023 Thrombosis Deep Vein Personal History 09/14/2023 Assisted (Current) Anticoagulant Treatment 09/14/2023 Monitoring For Therapeutic Drug Therapy 09/14/2023 Atrial Fibrillation Paroxysmal (HCC) 09/14/2023 Thrombosis Deep Vein Personal History 09/20/2023 Assisted (Current) Anticoagulant Treatment 09/20/2023 Monitoring For Therapeutic Drug Therapy 09/20/2023 Atrial Fibrillation Paroxysmal (HCC) 09/20/2023 Atrial Fibrillation Paroxysmal (HCC) 09/27/2023 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 09/27/2023 Monitoring For Therapeutic Drug Therapy 09/27/2023 Thrombosis Deep Vein Personal History 09/27/2023 Atrial Fibrillation Paroxysmal (HCC) 10/11/2023 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 10/11/2023 Monitoring For Therapeutic Drug Therapy 10/11/2023 Thrombosis Deep Vein Personal History 10/11/2023 Thrombosis Deep Vein Personal History 10/18/2023 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 10/18/2023 Monitoring For Therapeutic Drug Therapy 10/18/2023 Atrial Fibrillation Paroxysmal (HCC) 10/18/2023 Hyperlipidemia 11/01/2023 Atrial Fibrillation Unspecified (HCC) 11/01/2023 Atrial Fibrillation Paroxysmal (HCC) 11/01/2023 Hypertension Pulmonary (HCC) 11/01/2023 Hypertension Pulmonary (HCC) 11/01/2023 Anemia Iron Deficiency 11/03/2023 Anemia 11/03/2023 Hypertension Pulmonary (HCC) 11/03/2023 Hypertension Pulmonary (HCC) 11/03/2023 Anemia Iron Deficiency 11/03/2023 Chronic Diastolic (Congestive) Heart Failure (HCC) 11/03/2023 Atrial Fibrillation Unspecified (HCC) 11/03/2023 Atrial Fibrillation Paroxysmal (HCC) 11/03/2023 Hypertension Pulmonary (HCC) 11/10/2023 Anemia Iron Deficiency 11/10/2023 Chronic Diastolic (Congestive) Heart Failure (HCC) 11/10/2023 Obstructive Sleep Apnea Adult 11/11/2023 Obstructive Sleep Apnea Adult 11/12/2023 Thrombosis Deep Vein Personal History 11/16/2023 Assisted (Current) Anticoagulant Treatment 11/16/2023 Monitoring For Therapeutic Drug Therapy 11/16/2023 Atrial Fibrillation Paroxysmal (HCC) 11/16/2023 Atrial Fibrillation Paroxysmal (HCC) 11/22/2023 Assisted (Current) Anticoagulant Treatment 11/22/2023 Monitoring For Therapeutic Drug Therapy 11/22/2023 Thrombosis Deep Vein Personal History 11/22/2023 Hypertension Pulmonary (HCC) 11/25/2023 Chronic Diastolic (Congestive) Heart Failure (HCC) 11/25/2023 Thrombosis Deep Vein Personal History 11/29/2023 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 11/29/2023 Monitoring For Therapeutic Drug Therapy 11/29/2023 Atrial Fibrillation Paroxysmal (HCC) 11/29/2023 Atrial Fibrillation Paroxysmal (HCC) 12/06/2023 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 12/06/2023 Monitoring For Therapeutic Drug Therapy 12/06/2023 Thrombosis Deep Vein Personal History 12/06/2023 Obstructive Sleep Apnea Adult 12/08/2023 Atrial Fibrillation Paroxysmal (HCC) 12/13/2023 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 12/13/2023 Monitoring For Therapeutic Drug Therapy 12/13/2023 Thrombosis Deep Vein Personal History 12/13/2023 Thrombosis Deep Vein Personal History 12/27/2023 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 12/27/2023 Monitoring For Therapeutic Drug Therapy 12/27/2023 Atrial Fibrillation Paroxysmal (HCC) 12/27/2023 Atrial Fibrillation Paroxysmal (HCC) 01/03/2024 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 01/03/2024 Monitoring For Therapeutic Drug Therapy 01/03/2024 Thrombosis Deep Vein Personal History 01/03/2024 Atrial Fibrillation Paroxysmal (HCC) 01/10/2024 Assisted (Current) Anticoagulant Treatment 01/10/2024 Monitoring For Therapeutic Drug Therapy 01/10/2024 Thrombosis Deep Vein Personal History 01/10/2024 Thrombosis Deep Vein Personal History 01/24/2024 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 01/24/2024 Monitoring For Therapeutic Drug Therapy 01/24/2024 Atrial Fibrillation Paroxysmal (HCC) 01/24/2024 Atrial Fibrillation Paroxysmal (HCC) 01/24/2024 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 01/24/2024 Monitoring For Therapeutic Drug Therapy 01/24/2024 Thrombosis Deep Vein Personal History 01/24/2024 Failure Heart (HCC) 02/21/2024 Atrial Fibrillation Paroxysmal (HCC) 02/21/2024 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 02/21/2024 Monitoring For Therapeutic Drug Therapy 02/21/2024 Thrombosis Deep Vein Personal History 02/21/2024 Insomnia 03/21/2024 Thrombosis Deep Vein Personal History 03/29/2024 Assisted (Current) Anticoagulant Treatment 03/29/2024 Monitoring For Therapeutic Drug Therapy 03/29/2024 Atrial Fibrillation Paroxysmal (HCC) 03/29/2024 Atrial Fibrillation Paroxysmal (HCC) 03/29/2024 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 03/29/2024 Monitoring For Therapeutic Drug Therapy 03/29/2024 Thrombosis Deep Vein Personal History 03/29/2024 Thrombosis Deep Vein Personal History 04/11/2024 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 04/11/2024 Monitoring For Therapeutic Drug Therapy 04/11/2024 Atrial Fibrillation Paroxysmal (HCC) 04/11/2024 Failure Heart (HCC) 04/27/2024 Failure Heart (HCC) 04/27/2024 Atrial Fibrillation Paroxysmal (HCC) 04/27/2024 Failure Heart (HCC) 04/27/2024 Chronic Diastolic (Congestive) Heart Failure (HCC) 04/27/2024 Hypertension Essential Primary 04/27/2024 Atrial Fibrillation Paroxysmal (HCC) 04/27/2024 Sleep Apnea 04/27/2024 Hyperlipidemia 04/27/2024 Thrombosis Deep Vein Personal History 05/04/2024 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 05/04/2024 Monitoring For Therapeutic Drug Therapy 05/04/2024 Atrial Fibrillation Paroxysmal (HCC) 05/04/2024 Thrombosis Deep Vein Personal History 05/08/2024 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 05/08/2024 Monitoring For Therapeutic Drug Therapy 05/08/2024 Atrial Fibrillation Paroxysmal (HCC) 05/08/2024 Atrial Fibrillation Unspecified (HCC) 07/13/2018 Hypertensive Heart Disease With Heart Failure (HCC) 07/13/2018 Major Depressive Disorder Single Episode Unspecified 07/13/2018 Reflux Esophageal 07/13/2018 Asthma Intrinsic (HCC) 07/13/2018 Atrial Fibrillation Unspecified (HCC) 07/25/2018 Hypertensive Heart Disease With Heart Failure (HCC) 07/25/2018 Gastroesophageal Reflux Disease 07/25/2018 Major Depressive Disorder, Recurrent, Unspecified (HCC) 07/25/2018 Anticoagulant Therapy [Z79.01] 07/25/2018 Sleep Apnea 07/25/2018 Metabolizer CY Poor 07/25/2018 Metabolizer CYP2D6 Rapid 07/25/2018 Pneumonia Due To COVID-19 09/08/2020 Hypertensive Heart Disease With Heart Failure (HCC) 09/08/2020 Gastroesophageal Reflux Disease 09/08/2020 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 09/08/2020 Atrial Fibrillation Paroxysmal (HCC) 09/08/2020 COVID-19 Infection 09/08/2020 Anemia 09/08/2020 Atrial Fibrillation Paroxysmal (HCC) 07/19/2023 Hypertension Essential Primary 07/19/2023 Atrial Fibrillation Unspecified (HCC) 07/19/2023 Gastroesophageal Reflux Disease Without Esophagitis 07/19/2023 Hyperlipidemia 07/19/2023 Metabolizer CYP2D6 Rapid 07/19/2023 Sleep Apnea 07/19/2023 Thrombosis Deep Vein Personal History 07/19/2023 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 07/19/2023 Monitoring For Therapeutic Drug Therapy 07/19/2023 History Of Falling 07/19/2023 Anemia 07/19/2023 Care Teams Mechanical Cad Designer Relationship Specialty Start Date End Date Emilia Lincoln M.D. [address] [place] [phone] PCP - General Family Medicine 08/13/23
--- OUTSIDE RECORDS SUMMARY | 2024-05-08 13:44 | XMS_ITS | Encounter Summary ---
Author Organization [facility] Address [address] [place] [address] Care Team Providers Care Digital Print Operator Name Role Phone Emilia Lincoln M.D. Primary Care Provider [phone] Reason for Referral * Outpatient (Routine) - Closed Specialty Diagnoses / Procedures Referred By Contac t Referred To Contact Diagnoses Failure Heart (HCC) Procedures DX Chest AP or PA and Lateral 2 Views Hugo Sanchez M.D. [address] [place] [phone] [facility] Referral ID Status Reason Start Date Expiration Date Visits Re quested Visits Authorized [id number] Closed 02/21/2024 02/20/2025 1 1 Reason for Visit * Outpatient (Routine) - Closed Specialty Diagnoses / Procedures Referred By Contac t Referred To Contact Diagnoses Failure Heart (HCC) Procedures DX Chest AP or PA and Lateral 2 Views Hugo Sanchez M.D. [address] [place] [phone] [facility] Referral ID Status Reason Start Date Expiration Date Visits Re quested Visits Authorized [id number] Closed 02/21/2024 02/20/2025 1 1 Encounter Details Date Type Department Care Team (Latest Contact Info) Description 04/27/2024 9:16 AM CDT - 04/27/2024 11:10 AM CDT Hospital Encounter Department of Radiology, [facility], in [place], [place] [address] [place] [phone] Hugo Sanchez M.D. [address] [place] [phone] Failure Heart (HCC) Discharge Disposition: Home or Self Care Social History Tobacco Use Types Packs/Day Years Used Date Smoking Tobacco: Never Passive Smoke Exposure: Never Smokeless Tobacco: Never Alcohol Use Standard Drinks/Week Comments Yes 2 (1 standard drink = 0.6 oz pur e alcohol) Humiliation, Afraid, Rape, and Kick questionnair e [...] 02/25/2022 How often do you attend chur ch or adventist services? More than 4 times per year 02/25/2022 Do you belong to any clubs o r organizations such as christian groups, unions, fraternal or athletic groups, or [...] Answer Date Recorded PHQ-2 Score 3 04/26/2024 [facility] - Occupational Stress Questionnaire Answer Date Recorded [...] your living situation today? I have a [facility] place to live 05/26/2023 Education Answer Date Recorded What is the highest level of school you have completed or the highest degree you have received? 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 DME CPAPIndications:Obstr uctive Sleep Apnea Adult DME Order 1 each 12/08/2023 dofetilide (TIKOSYN) 500 mcg capsule Take 1 capsule (500 mcg total) by mouth 2 (two) times a day. 180 capsule 3 07/21/2023 FLUoxetine (PROzac) 10 mg capsule Take 1 capsule by mouth daily. 10/29/2023 Jardiance 10 mg tablet TAKE 1 TABLET(10 MG) BY MOUTH EVERY MORNING BEFORE BREAKFAST 100 tablet 3 03/01/2024 metoprolol tartrate (LOPRESSOR) 25 mg tablet Take 0.5 tablets (12.5 mg total) by mouth 2 (two) times a day. 180 tablet 3 07/21/2023 pantoprazole (PROTONIX) 40 mg EC tablet Take 1 tablet (40 mg total) by mouth 2 (two) times a day before breakfast and dinner. 180 tablet 3 04/05/2024 spironolactone (ALDACTONE) 25 mg tablet TAKE 1 TABLET(25 MG) BY MOUTH DAILY 90 tablet 3 11/03/2023 warfarin (COUMADIN) 5 mg tabletIndications:Atr ial Fibrillation Paroxysmal (HCC),Custodial (Current) Anticoagulant Treatment,Thrombosis Deep Vein Acute Calf Right (HCC),Monitoring For Therapeutic Drug Therapy Please take as directed by your Anticoagulation Clinic. 106 tablet 3 09/03/2023 zolpidem (AMBIEN) 5 mg tabletIndications:Res tless Leg Syndrome TAKE 1 TABLET(5 MG) BY MOUTH AT BEDTIME NEEDED FOR SLEEP 60 tablet 01/12/2023 documented as of this encounter Plan of Treatment Upcoming Encounters Date Type Department Care Team (Latest Contact Info) Description 05/08/2024 2:00 PM CDT Anticoagulation Visit Department of Anticoagulation in [place], [place] [address] [place] [phone] Emilia Lincoln M.D. [address] [place] [phone] Thrombosis Deep Vein Personal History (Primary Dx); Custodial (Current) Anticoagulant Treatment; Monitoring For Therapeutic Drug Therapy; Atrial Fibrillation Paroxysmal (HCC) 05/25/2024 3:30 PM CDT [facility] in [place], [place] [address] [place] [phone] Silvino Pineda D.O., M.S. [address] [place] [phone] 2024 8:15 AM CDT Anticoagulation Visit Department of Anticoagulation in [place], [place] [address] [place] [phone] Emilia Lincoln M.D. [address] [place] [phone] documented as of this encounter Procedures Procedure Name Priority Date/Time Associated Diagnosis Comments DX CHEST AP OR PA AND LATERAL 2 VIEWS RAD - Routine (most inpatients and all outpatients) 04/27/2024 9:32 AM CDT Failure Heart (HCC) documented in this encounter Results * DX Chest AP or PA and Lateral 2 Views (04/27/2024 9:32 AM CDT) Anatomical Region Laterality Modality Chest, Thoracic RST [...] significant change since 11/12/2022. Hugo Sanchez M.D. [facility] NG PROCEDURES documented in this encounter Visit Diagnoses Diagnosis Failure Heart (HCC) Thrombosis Deep Vein Personal History- Primary Sign Artist (Current) Anticoagulant Treatment Monitoring For Therapeutic Drug Therapy Atrial Fibrillation Paroxysmal (HCC) documented in this encounter Additional Health Concerns Assessment Noted Time PHQ-9 Depression Total Score: 8 04/26/20 24 10:43 AM CDT documented as of this encounter Care Teams Digital Print Operator Relationship Specialty Start Date End Date Emilia Lincoln M.D. [address] [place] [phone] PCP - General Family Medicine 08/13/23 documented as of this encounter
--- OUTSIDE RECORDS SUMMARY | 2024-05-08 13:44 | XMS_ITS | Encounter Summary ---
Author Organization [facility] Address [address] [place] [address] Care Team Providers Care Pet Supplies Salesperson Name Role Phone Emilia Lincoln M.D. Primary Care Provider [phone] Encounter Details Date Type Department Care Team (Latest Contact Info) Description 03/29/2024 2:18 PM CDT - 03/29/2024 11:59 PM CDT Hospital Encounter Department of Laboratory Medicine in [address] [phone] Emilia Lincoln M.D. [address] [place] [phone] Atrial Fibrillation Paroxysmal (HCC); Clinic Md Associate (Current) Anticoagulant Treatment; Monitoring For Therapeutic Drug Therapy; Thrombosis Deep Vein Personal History Discharge Disposition: Home or Self Care Social [...] How often do you attend chur or judaism services? More than 4 times per year 02/25/2022 Do you belong to any clubs o r organizations such as episcopalian groups, unions, fraternal or athletic groups, or [...] 05/26/2023 PHQ-2 Answer Date Recorded PHQ-2 Score 2 10/27/2023 [facility] [place] [facility] Occupat ional Health - Occupational Stress Questionnaire Answer Date Recorded [...] Recor ded PHQ-9 Total Score (max 27) 3 10/27 Nutrition Answer Date Recorded On average, how many serving s of fruits and vegetables do you eat per day (serving size is equal to 1 cup or approximately the size of a tennis ball)? 0-2 05/26/2023 Dental Answer Date Recorded Dental: Regular Dentist Yes 01/07/20 Employment Answer Date Recorded Employment status Retired 05/26/2023 Housing Stability Answer Date Recorded What is your living situation today? I have a [facility] place to live 05/26/2023 Education Answer Date Recorded What is the highest level of school you have completed or the highest degree you have received? 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 DME CPAPIndications:Obst ructive Sleep Apnea Adult DME Order 1 each [...] times a day. 180 tablet 3 07/21/2023 spironolactone (ALDACTONE) 25 mg tablet TAKE 1 TABLET(25 MG) BY MOUTH DAILY 90 tablet 3 11/03/2023 warfarin (COUMADIN) 5 mg tabletIndications:At rial Fibrillation Paroxysmal (HCC),Clinic Md Associate (Current) Anticoagulant Treatment,Thrombosis Deep Vein Acute Calf Right (HCC),Monitoring For Therapeutic Drug Therapy Please take as directed by your Anticoagulation Clinic. 106 tablet 3 09/03/2023 zolpidem (AMBIEN) 5 mg tabletIndications:Re stless Leg Syndrome TAKE 1 TABLET(5 MG) BY MOUTH AT BEDTIME NEEDED FOR SLEEP 60 tablet 01/12/2023 pantoprazole (PROTONIX) 40 mg EC tablet TAKE 1 TABLET(40 MG) BY MOUTH TWICE DAILY BEFORE BREAKFAST AND DINNER 180 tablet 01/04/2024 04/04/2024 documented as of this encounter Plan of Treatment Upcoming Encounters Date Type Department Care Team (Latest Contact Info) Description 05/08/2024 2:00 PM CDT Anticoagulation Visit Department of Anticoagulation in [place], [place] [address] [place] [phone] Emilia Lincoln M.D. [id number] [place] [phone] Thrombosis Deep Vein Personal History (Primary Dx); Clinic Md Associate (Current) Anticoagulant Treatment; Monitoring For Therapeutic Drug Therapy; Atrial Fibrillation Paroxysmal (HCC) 05/25/2024 3:30 PM CDT [facility] Visit [facility] [place], [place] [address] [place] [phone] Silvino Pineda D.O., M.S. [address] [place] [phone] 2024 8:15 AM CDT Anticoagulation Visit Department of Anticoagulation in [place], [place] [address] [place] [phone] Emilia Lincoln M.D. [address] [place] [phone] documented as of this encounter Procedures Procedure Name Priority Date/Time Associated Diagnosis Comments INR REFLEX, POCT, B Routine 03/29/2024 2:26 PM CDT Atrial Fibrillation Paroxysmal (HCC) Clinic [facility] Associate (Current) Anticoagulant Treatment Monitoring For Therapeutic Drug Therapy Thrombosis Deep Vein Personal History documented in this encounter Results * INR Reflex, POCT, Blood (03/29/2024 2:26 PM CDT) INR Reflex, POCT, B 3.3 03/29/2024 2:25 PM CDT [id number] Comment: ----ADDITIONAL INFORMATION---- Standard intensity warfarin therapeutic range: 2.0 to 3.0 ?? High intensity warfarin therapeutic range: 2.5 to 3.5 Blood (Blood, Capillary) 03/29/2024 2:26 PM CDT 03/29/2024 2:25 PM CDT Emilia Lincoln M.D. LAB POCT ORDERABLE S - DEVICE [facility] [address] [place] [address], [facility] [id number] [facility] [address] [place] [address] documented in this encounter Visit Diagnoses Diagnosis Atrial Fibrillation Paroxysmal (HCC) [facility] (Current) Anticoagulant Treatment Monitoring For Therapeutic Drug Therapy Thrombosis Deep Vein Personal History Thrombosis Deep Vein Personal History- Primary Clinic Md Associate (Current) Anticoagulant Treatment Monitoring For Therapeutic Drug Therapy Atrial Fibrillation Paroxysmal (HCC) documented in this encounter Additional Health Concerns Assessment Noted Time PHQ-9 Depression Total Score: 3 10/27/20 23 8:30 PM ECCLESIASTICAL WORKER documented as of this encounter Care Teams Pet Supplies Salesperson Relationship Specialty Start Date End Date Emilia Lincoln M.D. [address] [place] [phone] PCP - General Family Medicine 08/13/23 documented as of this encounter
--- OUTSIDE RECORDS SUMMARY | 2024-05-08 13:44 | XMS_ITS | Encounter Summary ---
Author Organization [facility] Address [address] [place] [id number] Care Team Providers Care Hot Molder Name Role Phone Emilia Lincoln M.D. Primary Care Provider +1- [phone] Reason for Referral * Outpatient (Routine) - Authorized Specialty Diagnoses / Procedures Referred By Evie saxena Referred To Contact Cardiovascular Disease Hugo Sanchez M.D. 200 [place] [address] [facility] Referral ID Status Reason Start Date Expiration Date V isits Requested Visits Authorized [id number] Authorized 04/27/2024 10/27/2025 1 1 * Outpatient (Routine) - Authorized Specialty Diagnoses / Procedures Referred By Evie saxena Referred To Contact Diagnoses Chronic Diastolic (Congestive) Heart Failure (HCC) Hypertension Essential Primary Atrial Fibrillation Paroxysmal (HCC) Sleep Apnea Hyperlipidemia Procedures DX Chest AP or PA and Lateral 2 Views Hugo Sanchez M.D. [address] [place] [address] [facility] Referral ID Status Reason Start Date Expiration Date V isits Requested Visits Authorized [id number] Authorized 04/27/2024 04/27/2025 1 1 * Outpatient (Routine) - Authorized Specialty Diagnoses / Procedures Referred By Evie saxena Referred To Contact Diagnoses Chronic Diastolic (Congestive) Heart Failure (HCC) Hypertension Essential Primary Atrial Fibrillation Paroxysmal (HCC) Sleep Apnea Hyperlipidemia Procedures ECG 12 Lead Hugo Sanchez M.D. [address] [place] [phone] [facility] Referral ID Status Reason Start Date Expiration Date V isits Requested Visits Authorized [id number] Authorized 04/27/2024 04/27/2025 1 1 * Cardiovascular-Diagnostic (Routine) - Authorized Specialty Diagnoses / Procedures Referred By Evie saxena Referred To Contact Diagnoses Chronic Diastolic (Congestive) Heart Failure (HCC) Hypertension Essential Primary Atrial Fibrillation Paroxysmal (HCC) Sleep Apnea Hyperlipidemia Procedures Echo Transthoracic (TTE) Hugo Sanchez M.D. [address] [place] [phone] [facility] Referral ID Status Reason Start Date Expiration Date V isits Requested Visits Authorized [id number] Authorized 04/27/2024 04/27/2025 1 1 * Specialty Diagnoses / Procedures Referred By Evie saxena Referred To Contact Hugo Sanchez M.D. [address] [place] [phone] [facility] Referral ID Status Reason Start Date Expiration Date Visits Re quested Visits Authorized Scheduling Instructions Please schedule HF sodium and fluid education, as a virtual visit. Thank you Reason for Visit * Appointment Request (Routine) - Closed Specialty Diagnoses / Procedures Referred By Evie saxena Referred To Contact Cardiovascular Disease Diagnoses Heart Failure NOS Referral ID Status Reason Start Date Expiration Date Visits Re quested Visits Authorized [id number] Closed 02/21/2024 02/20/2025 1 1 Encounter Details Date Type Department Care Team (Latest Contact Info) Description 04/27/2024 4:00 PM CDT Office Visit Department of Cardiovascular Medicine in [place], [place] 200 [place] [address] [place] [address] Hypertension Essential Primary (Primary Dx); Chronic Diastolic (Congestive) Heart Failure (HCC); Atrial Fibrillation Paroxysmal (HCC); Sleep Apnea; Hyperlipidemia Social History Tobacco Use Types Packs/Day Years [...] often do you attend chur ch or nondenominational services? More than 4 times per year [...] Answer Date Recorded PHQ-2 Score 3 04/26/2024 [facility] - [facility]ational Stress Questionnaire Answer Date Recorded [...] money to buy more. Never true 05/26/20 Within the past 12 months, t he [...] your living situation today? I have a [facility] place to live 05/26/2023 Education Answer Date Recorded What is the highest level of school you have completed or the highest degree you have received? 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 - 04/27/2024 4:00 PM CDT REFERRAL SOURCE No ref. provider found SUBJECTIVE CHIEF COMPLAINT / REASON FOR VISIT Heart failure with preserved ejection fraction HISTORY OF PRESENT ILLNESS Ms. Coleman is a 78 year-old woman with history of persistent A fib requiring multiple ablations in 2013, re-do in 2014 and medical therapy, currently on dofetilide, anticoagulated, previous DVT, STANLEY on CPAP, HTN, in the Heart failure with preserved ejection fraction She was seen in the Pulmonary hypertension Clinic in October of [address] Palacios was started onspironolactone and SGLT2 inhibition. Please see his note on 11/03/2023 for detailed past medical history Patient has tolerated Jardiance and spironolactone well with no side effects. She has also started CPAP for her obstructive sleep apnea. Over the past few weeks she feels that her exercise capacity has improved. She says that she feels more fatigued when she gets up in the morning and as the day goes on she gets more energetic. She denies any PND no orthopnea no presyncope no syncope no chest pain. She does complain of some right-sided jaw pain and neck stiffness. No issues with fluid retention. Patient says that her atrial fibrillation is now more frequent, it can last from hours to days. The following portions of the patient's history were reviewed and updated as appropriate: allergies, current medications, family history, medical history, social history, surgical history, psychiatric history, substance abuse history, problem list, labs, diagnostic tests.. I also reviewed pertinentclinical notes in the electronic health record. REVIEW OF SYSTEMS A comprehensive review of systems was completed; pertinent abnormalities are included in the History of Present Illness. REVIEW OF SYSTEMS MEDICATIONS Current Medications: cholecalciferol, vitamin D3, 25 mcg (1,000 Unit) tablet, Take 25 mcg by mouth daily. DME CPAP, DME Order dofetilide (TIKOSYN) 500 mcg capsule, Take 1 capsule (500 mcg total) by mouth 2 (two) times a day. FLUoxetine (PROzac) 10 mg capsule, Take 1 capsule by mouth daily. Jardiance 10 mg tablet, TAKE 1 TABLET(10 MG) BY MOUTH EVERY MORNING BEFORE BREAKFAST metoprolol tartrate (LOPRESSOR) 25 mg tablet, Take 0.5 tablets (12.5 mg total) by mouth 2 (two) times a day. pantoprazole (PROTONIX) 40 mg EC tablet, Take 1 tablet (40 mg total) by mouth 2 (two) times a day before breakfast and dinner. spironolactone (ALDACTONE) 25 mg tablet, TAKE 1 TABLET(25 MG) BY MOUTH DAILY warfarin (COUMADIN) 5 mg tablet, Please take as directed by your Anticoagulation Clinic. zolpidem (AMBIEN) 5 mg tablet, TAKE 1 TABLET(5 MG) BY MOUTH AT BEDTIME NEEDED FOR SLEEP (Patienttaking differently: Take 5 mg by mouth at bedtime as needed for sleep.) Allergies Allergen Reactions Iodinated Contrast Media Anaphylaxis Latex Hives (Reselect Reaction) Metoclopramide Shortness of breath (Reselect Reaction) Tramadol Other (see comments) passed out Past Medical History: Diagnosis Date Anemia Anxiety Generalized Disorder Apnea Sleep Obstructive Arrhythmia Asthma NOS Atrial Fibrillation Unspecified (HCC) Cataract Depressive Disorder Gastroesophageal Reflux Disease NOS Hyperlipidemia Hypertension NOS Other Injury Of Unspecified Body Region Collarbone Pneumonia Due To COVID-19 09/08/2020 Polyp Colon Sleep Apnea Family History Problem Relation Name Age of Onset Cancer Mother Heart attack Father Cale nieves Coronary artery disease Father Cale nieves Alcohol abuse Father Cale nieves Social History Socioeconomic History Marital status: Spouse name: Not on file Number of children: Not on file Years of education: Not on file Highest education level: Master's degree (e.g., MA, MS, Tacho, MEd, MANAGER UTILITY, EARLE) Occupational History Not on file Tobacco Use Smoking status: Never Passive exposure: Never Smokeless tobacco: Never Vaping Use Vaping status: never used Substance and Sexual Activity Alcohol use: Yes Alcohol/week: 2.0 standard drinks of alcohol Types: 2 Glasses of wine per week Drug use: No Sexual activity: Yes Partners: Male control/protection: Post-menopausal Other Topics Concern Not on file Social History Narrative Not on file Social Determinants of Health Food Insecurity: No Food Insecurity (05/26/2023) Hunger Vital Sign Worried About Running Out of Food in the Last Year: Never true Ran Out of Food in the Last Year: Never true Transportation Needs: No Transportation Needs (05/26/2023) PRAPARE - Transportation Lack of Transportation (Medical): No Lack of Transportation (Non-Medical): No Physical Activity: Insufficiently Active (05/26/2023) Exercise Vital Sign Days of Exercise per Week: 3 days Minutes of Exercise per Session: 20 min Intimate Partner Violence: Not At Risk (05/26/2023) Humiliation, Afraid, Rape, and Kick questionnaire Fear of Current or Ex-Partner: No Emotionally Abused: No Physically Abused: No Sexually Abused: No Housing Stability: Low Risk (05/26/2023) Housing Stability Housing: Living Situation: I have a steady place to live OBJECTIVE VITALS Blood Pressure: 122/78 Height: 154.9 cm Weight: 92.7 kg BMI (Calculated): 38.6 kg/m?? PHYSICAL EXAMINATION General: Not in acute distress Psychiatric: Oriented to person, place, and time. Eyes: nonicteric Vessels: JVP is not elevated no carotid bruit Heart: S1-S2 no S3 no S4 no murmurs Lungs: lungs are clear Abdomen: No hepatosplenomegaly. No abdominal tenderness, no masses. Extremities: no edema pulses. Skin: No stasis dermatitis or ulceration of the lower extremities. DIAGNOSTIC REVIEW All labs and diagnostic studies were reviewed. Recent Results (from the past 72 hour(s)) Potassium Collection Time: 04/27/24 8:42 AM Result Value Potassium, S 4.4 Creatinine with Estimated GFR Collection Time: 04/27/24 8:42 AM Result Value Creatinine 1.17 (H) Estimated GFR (eGFR) 48 (L) Sodium Collection Time: 04/27/24 8:42 AM Result Value Sodium, S 141 Glucose, Fasting Collection Time: 04/27/24 8:42 AM Result Value Glucose, P 92 Last Intake 15 AST (Aspartate Aminotransferase) Collection Time: 04/27/24 8:42 AM Result Value Aspartate Aminotransferase (AST), S 18 BUN (Blood Urea Nitrogen) Collection Time: 04/27/24 8:42 AM Result Value BUN (Blood Urea Nitrogen), S 19 Lipid Panel Collection Time: 04/27/24 8:42 AM Result Value Triglycerides 144 Cholesterol, Total 234 (H) Cholesterol, LDL, Calculated 148 (H) Cholesterol, HDL, S 60 Cholesterol, Non-HDL, Calculated 174 (H) Fasting (8 HR or more) Yes CBC with Differential, Blood Collection Time: 04/27/24 8:42 AM Result Value Hemoglobin 13.9 Hematocrit 43.0 Erythrocytes 4.71 MCV 91.3 RBC Distrib Width 14.2 Platelet Count 185 Leukocytes 5.8 Neutrophils 2.72 Lymphocytes 2.23 Monocytes 0.53 Eosinophils 0.21 Basophils 0.06 S-TSH (Thyroid-Stimulating Hormone - Sensitive) Collection Time: 04/27/24 8:42 AM Result Value TSH, Sensitive 4.9 (H) Bicarbonate Collection Time: 04/27/24 8:42 AM Result Value Bicarbonate, S 26 NT-Pro B-Type Natriuretic Peptide (BNP) Collection Time: 04/27/24 8:42 AM Result Value NT-Pro BNP 203 ECG 12 Lead Result Date: 04/27/2024 Sinus bradycardia with 1st degree A-V block Otherwise normal ECG When compared with ECG of 01-Nov-2023 16:15, CA interval has increased Reviewed by SILVIA Dumont Echocardiogram 1. Moderately enlarged right ventricular chamber size, [...] pericardial effusion (noted adjacent to the ascending aorta [...] size, no significance change has occurred. The tiny pericardial effusion was not previously present (previously fluid only visualized in systole). Side by side comparison of images performed. 8. See SERIAL STUDIES for comparison of measurements and hemodynamics. ASSESSMENT / PLAN #1 Chronic Diastolic (Congestive) Heart Failure (HCC) #2 Hypertension Essential Primary #3 Atrial Fibrillation Paroxysmal (HCC) #4 Sleep Apnea #5 Hyperlipidemia Patient is euvolemic by exam. An echocardiogram shows that her RVSP has decreased from 40 mm to 30 mmHg. E/e' is lower and NT proBNP has also decreased. Hence I encouraged patient to continue using her CPAP and with spironolactone and Jardiance. She does not watch his salt and fluid intake. I emphasized that she needs to be on a sodium and fluid restricted diet no more than 2 g of salt a day and 64 oz of fluid a day. We will provide Education for patient. Once again I had a lengthy discussion explaining to patient what stiffness of the heart means and how it effects her exercise capacity. Patient asked about prognosis. I explained to her that in large population studies, those with stiff heart has slightly worse prognosis but on an individual basis it is hard to ascertain the significance. I encouraged patient to remain physically active walking up to 45 minutes a day 5 to 6 times a weekhowever she should not over exert herself. Recommendations Patient should contact Dr. Buckley regarding her frequent paroxysmal atrial fibrillation Continue Jardiance and spironolactone. Salt and fluid restriction: no more than 2 g of salt a day and 64 oz of fluid a day Walk up to 45 minutes a day 5 to 6 times a week, but do not overt exert Continue to use CPAP Patient is sensitive TSH is borderline high, instruct patient to rechecked with primary physician in 2-3 months Patient's total cholesterol and LDL is high, encouraged patient to watch her diet and recheck in 2-3 months if it remains high consider starting a statin If her jaw pain continues follow up with primary physician to rule out giant cell arthritis Patient would like to follow up in a year's time we will repeat an echocardiogram NT proBNP chest x-ray electrolytes lipid profile Total time spent reviewing patient's medical records and [id number] consultation is 50 minutes PATIENT EDUCATION Learning needs assessment was performed. No learning barriers were identified. Explained diagnosis and treatment plan. Patient expressed understanding and was able to teach back. Hugo Sanchez M.D. 04/27/2024 documented in this encounter Plan of Treatment Upcoming Encounters Date Type Department Care Team (Latest Contact Info) Description 05/08/2024 2:00 PM CDT Anticoagulation Visit Department of Anticoagulation in [place], [place] [address] [place] [phone] Emilia Lincoln M.D. 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 [address] [place] [phone] 2024 8:15 AM CDT Anticoagulation Visit Department of Anticoagulation in [place], [place] [address] [place] [phone] Emilia Lincoln M.D. [address] [place] [phone] Scheduled Orders Name Type Priority Associated Diagnoses Order Schedule Echo Transthoracic (TTE) Echocardiography Routine Chronic Diastolic (Congestive) Heart Failure (HCC) Hypertension Essential Primary Atrial Fibrillation Paroxysmal (HCC) Sleep Apnea Hyperlipidemia Expected: 04/27/2025, Expires: 07/28/2025 ECG 12 Lead ECG Routine Chronic Diastolic (Congestive) Heart Failure (HCC) Hypertension Essential Primary Atrial Fibrillation Paroxysmal (HCC) Sleep Apnea Hyperlipidemia Expected: 04/27/2025, Expires: 07/28/2025 Comprehensive Metabolic Panel Lab Routine Chronic Diastolic (Congestive) Heart Failure (HCC) Hypertension Essential Primary Atrial Fibrillation Paroxysmal (HCC) Sleep Apnea Hyperlipidemia Expected: 04/25/2025 (Approximate), Expires: 07/28/2025 Lipid Panel Lab Routine Chronic Diastolic (Congestive) Heart Failure (HCC) Hypertension Essential Primary Atrial Fibrillation Paroxysmal (HCC) Sleep Apnea Hyperlipidemia Expected: 04/25/2025 (Approximate), Expires: 07/28/2025 DX Chest AP or PA and Lateral 2 Views Imaging RAD - Routine (most inpatients and all outpatients) Chronic Diastolic (Congestive) Heart Failure (HCC) Hypertension Essential Primary Atrial Fibrillation Paroxysmal (HCC) Sleep Apnea Hyperlipidemia Expected: 04/27/2025, Expires: 07/28/2025 Scheduled Referrals Name Type Priority Associated Diagnoses Order Schedule Heart Failure class (PERC) Outpatient Referral Routine Chronic Diastolic (Congestive) Heart Failure (HCC) Expected: 04/27/2024, Expires: 07/28/2025 Cardiovascular Disease office visit (clinic) Outpatient Referral Routine Expect ed: 04/27/2025, Expires: 07/28/2025 documented as of this encounter Results * (ABNORMAL) Thyroid Function Lea (04/27/2024 8:37 AM CDT) TSH, Sensitive 4.9(H) 0.3 - 4.2 mIU/L 04/28/2024 10:35 AM CDT DTL Blood (Blood, Venous) 04/27/2024 8:37 AM CDT 04/28/2024 9:54 AM CDT Hugo Sanchez M.D. LAB BLOOD ADD-ON [facility] [address] [place] [address], [facility] DTL [facility] [address] [place] [address] documented in this encounter Visit Diagnoses Diagnosis Hypertension Essential Primary- Primary Chronic Diastolic (Congestive) Heart Failure (HCC) Atrial Fibrillation Paroxysmal (HCC) Sleep Apnea Hyperlipidemia Thrombosis Deep Vein Personal History- Primary Snf (Current) Anticoagulant Treatment Monitoring For Therapeutic Drug Therapy Atrial Fibrillation Paroxysmal (HCC) documented in this encounter Additional Health Concerns Assessment Noted Time PHQ-9 Depression Total Score: 8 04/26/20 24 10:43 AM CDT documented as of this encounter Care Teams Hot Molder Relationship Specialty Start Date End Date Emilia Lincoln M.D. [address] [place] [phone] PCP - General Family Medicine 08/13/23 documented as of this encounter
--- OUTSIDE RECORDS SUMMARY | 2024-05-08 13:44 | XMS_ITS | Encounter Summary ---
Author Organization [facility] Address [address] [place] [address] Care Team Providers Care Visual Designer Name Role Phone Emilia Lincoln M.D. Primary Care Provider +1- [phone] Reason for Referral * Outpatient (Routine) - Closed Specialty Diagnoses / Procedures Referred By Evie saxena Referred To Contact Diagnoses Failure Heart (HCC) Procedures Echo Transthoracic (TTE) Hugo Sanchez M.D. 200 [place] [address] [facility] Referral ID Status Reason Start Date Expiration Date Visits Re quested Visits Authorized [id number] Closed 02/21/2024 02/20/2025 1 1 Reason for Visit * Outpatient (Routine) - Closed Specialty Diagnoses / Procedures Referred By Evie saxena Referred To Contact Diagnoses Failure Heart (HCC) Procedures Echo Transthoracic (TTE) Hugo Sanchez M.D. [address] [place] [address] [facility] Referral ID Status Reason Start Date Expiration Date Visits Re quested Visits Authorized [id number] Closed 02/21/2024 02/20/2025 1 1 Encounter Details Date Type Department Care Team (Latest Contact Info) Description 04/27/2024 11:11 AM CDT - 04/27/2024 11:59 PM CDT Hospital Encounter Department of Cardiovascular Diseases in [place], [place] [address] [place] [address] Hugo Sanchez M.D. 200 [place] [phone] Failure Heart (HCC) Discharge Disposition: Home or [...] often do you attend chur ch or bahai services? More than 4 times per year 02/25/2022 Do you belong to any clubs o r organizations such as muslim groups, unions, fraternal or athletic groups, or [...] Answer Date Recorded PHQ-2 Score 3 04/26/2024 [facility] - Occupational Stress [...] your living situation today? I have a [facility] place to live 05/26/2023 Education Answer Date Recorded What is the highest level of school you have completed or the highest degree you have received? 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 [address] [place] [phone] 2024 8:15 AM CDT Anticoagulation Visit Department of Anticoagulation in [place], [place] [address] [place] [phone] Emilia Lincoln M.D. [address] [place] [phone] documented as of this encounter Procedures Procedure Name Priority Date/Time Associated Diagnosis Comments (TTE) 2D ECHO DOPPLER COLOR Routine 04/27/2024 1:10 PM CDT Failure Heart (HCC) documented in this encounter Results * (TTE) 2D ECHO DOPPLER COLOR (04/27/2024 [...] was performed but not reported based on piece marker small arms's judgment. Estimated right ventricular systolic pressure 30 [...] hemodynamics. Procedure Note Brandon Bhatia M.D. - 04/27/2024 For the complete report, see the Order-Level [...] assessmentwas performed but not reported based on piece marker small arms's judgment. Estimatedright ventricular systolic pressure 30 mmHg [...] Documents. Hugo Sanchez M.D. CV ECHO PROCEDURES documented in this encounter Visit Diagnoses Diagnosis Failure Heart (HCC) Thrombosis Deep Vein Personal History- Primary Mcc (Current) Anticoagulant Treatment Monitoring For Therapeutic Drug Therapy Atrial Fibrillation Paroxysmal (HCC) documented in this encounter Additional Health Concerns Assessment Noted Time PHQ-9 Depression Total Score: 8 04/26/20 24 10:43 AM CDT documented as of this encounter Care Teams Visual Designer Relationship Specialty Start Date End Date Emilia Lincoln M.D. [address] [place] [phone] PCP - General Family Medicine 08/13/23 documented as of this encounter
--- OUTSIDE RECORDS SUMMARY | 2024-05-08 13:44 | XMS_ITS | Encounter Summary ---
Author Organization [facility] Address [address] [place] [address] Care Team Providers Care Hemmer Automatic Name Role Phone Emilia Lincoln M.D. Primary Care Provider [phone]- [phone] Reason for Visit * Reason Onset Date Comments Anticoagulation 05/04/2024 Lack of Engageme nt Encounter Details Date Type Department Care Team (Latest Contact Info) Description 05/04/2024 Clinical Communication Department of Anticoagulation in [place], [place] [address] [place] [address] Yun Lau Anticoagulation (Lack of Engagement) Social History Tobacco Use Types Packs/Day Years [...] How often do you attend chur or spiritism services? More than 4 times per year 02/25/2022 Do you belong to any clubs o r organizations such as latter-day groups, unions, fraternal or athletic groups, or [...] Answer Date Recorded PHQ-2 Score 3 04/26/2024 [facility] - Occupational Stress Questionnaire Answer Date [...] living situation today? I have a [facility] place to live 05/26/2023 Education Answer Date Recorded What is the highest level of school you have completed or the highest degree you have received? Master's degree (e.g., MA, MS, Tacho, MEd, MUSIC WORKER, EARLE) 06/27/2019 Sex and Gender Information Value Date Recorded Sex Assigned at Female 11/24/2017 7:34 PM ACADEMIC TUTOR Gender Identity Female 05/03/2021 11:34 AM CDT Sexual Orientation Straight 05/03/2021 11 :34 AM CDT documented as of this encounter Miscellaneous Notes * Telephone Encounter - Yun Lau - 05/04/2024 9:50 AM CDT This communication is to notify you that our patient, Alivia Coleman is non-adherent. Please assess for DOAC and if there any additional ideas to help the patient be adherent. * Telephone Encounter - Yun Lau - 05/04/2024 9:50 AM CDT At risk for Dismissal from the Primary Care Anticoagulation Program. Patient's recent lack of engagement is interfering with our ability to safely manage their warfarin. We need your immediate assistance with patient engagement as we have been unsuccessful in reachingthem. Please contact the patient to assess barriers to care and emphasize the importance of engaging with the anticoagulation program to avoid being turned back to provider management on (05/29). Thank you for your time and assistance. Primary Care Anticoagulation Program [phone] documented in this encounter Plan of Treatment Upcoming Encounters Date Type Department Care Team (Latest Contact Info) Description 05/08/2024 2:00 PM CDT Anticoagulation Visit Department of Anticoagulation in [place], [place] [address] [place] [phone] Emilia Lincoln M.D. [address] [place] [phone] Thrombosis Deep Vein Personal History (Primary Dx); Usp (Current) Anticoagulant Treatment; Monitoring For Therapeutic Drug Therapy; Atrial Fibrillation Paroxysmal (HCC) 05/25/2024 3:30 PM CDT Office Visit [facility] in [place], [place] [address] [place] [phone] Silvino Pineda D.O., M.S. [address] [place] [phone] 2024 8:15 AM CDT Anticoagulation Visit Department of Anticoagulation in [place], [place] [address] [place] [phone] Emilia Lincoln M.D. [address] [place] [phone] documented as of this encounter Visit Diagnoses Diagnosis Thrombosis Deep Vein Personal History- Primary Timing Adjuster (Current) Anticoagulant Treatment Monitoring For Therapeutic Drug Therapy Atrial Fibrillation Paroxysmal (HCC) Thrombosis Deep Vein Personal History- Primary Timing Adjuster (Current) Anticoagulant Treatment Monitoring For Therapeutic Drug Therapy Atrial Fibrillation Paroxysmal (HCC) documented in this encounter Additional Health Concerns Assessment Noted Time PHQ-9 Depression Total Score: 8 04/26/20 24 10:43 AM CDT documented as of this encounter Care Teams Hemmer Automatic Relationship Specialty Start Date End Date Emilia Lincoln M.D. [address] [place] [phone] PCP - General Family Medicine 08/13/23 documented as of this encounter
--- OUTSIDE RECORDS SUMMARY | 2024-05-08 13:44 | XMS_ITS | Encounter Summary ---
Author Organization [facility] Address [address] [place] [address] Care Team Providers Care Wax Coating Machine Tender Name Role Phone Emilia Lincoln M.D. Primary Care Provider [phone]- [phone] Encounter Details Date Type Department Care Team (Latest Contact Info) Description 04/27/2024 8:25 AM CDT - 04/27/2024 9:15 AM CDT Hospital Encounter Department of Laboratory Medicine and Pathology, [facility], in [place], [place] [address] [place] [phone] Hugo Sanchez M.D. [address] [place] [phone] Atrial Fibrillation Paroxysmal (HCC); Failure Heart (HCC) [...] How often do you attend chur or restoration services? More than 4 times per year 02/25/2022 Do you belong to any clubs o r organizations such as tenriism groups, unions, fraternal or athletic groups, or [...] Answer Date Recorded PHQ-2 Score 3 04/26/2024 [facility] Occupat ional Health - Occupational Stress [...] your living situation today? I have a [facility] place to live 05/26/2023 Education Answer Date Recorded What is the highest level of school you have completed or the highest degree you have received? Master's degree (e.g., MA, MS, Tacho, MEd, EMS DRIVER, EARLE) 06/27/2019 Sex and Gender Information Value Date Recorded Sex Assigned at Female 11/24/2017 7:34 PM KNITTER HAND Gender Identity Female 05/03/2021 11:34 AM CDT [...] (COUMADIN) 5 mg tabletIndications:Atr ial Fibrillation Paroxysmal (HCC),Assisted (Current) Anticoagulant Treatment,Thrombosis Deep Vein Acute Calf [...] CDT Anticoagulation Visit Department of Anticoagulation in [place], [place] [address] [place] [address] Emilia Lincoln M.D. [address] [place] [phone] Thrombosis Deep Vein Personal History (Primary Dx); Assisted (Current) Anticoagulant Treatment; Monitoring For Therapeutic Drug Therapy; Atrial Fibrillation Paroxysmal (HCC) 05/25/2024 3:30 PM CDT Office Visit [facility] in [place], [place] [address] [place] [address] Silvino Pineda D.O., M.S. [address] [place] [phone] 2024 8:15 AM CDT Anticoagulation Visit Department of Anticoagulation in [place], [place] [address] [place] [address] Emilia Lincoln M.D. [address] [phone] documented as of this encounter Procedures Procedure Name Priority Date/Time Associated Diagnosis Comments LIPID PANEL, S Routine 04/27/2024 8:42 AM CDT Failure Heart (HCC) NT-PRO B-TYPE NATRIURETIC PEPTIDE (BNP), S Routine 04/27/2024 8:42 AM CDT Failure Heart (HCC) CBC WITH DIFFERENTIAL, B Routine 024 8:42 AM CDT Failure Heart (HCC) BUN (BLOOD UREA NITROGEN), S/P Routine 04/27/2024 8:42 AM CDT Failure Heart (HCC) ASPARTATE AMINOTRANSFERASE (AST), S/P Routine 04/27/2024 8:42 AM CDT Failure Heart (HCC) THYROID-STIMULATING HORMONE-SENSITIVE (S-TSH) Routine 04/27/2024 8:42 AM CDT Failure Heart (HCC) SODIUM, S/P Routine 04/27/2024 8:42 AM CDT Failure Heart (HCC) POTASSIUM, S/P Routine 04/27/2024 8:42 AM CDT Atrial Fibrillation Paroxysmal (HCC) GLUCOSE, FASTING, S/P Routine 04/27/2024 8:42 AM CDT Failure Heart (HCC) CREATININE WITH EGFR, S/P Routine 04/27/2024 8:42 AM CDT Atrial Fibrillation Paroxysmal (HCC) BICARBONATE, B/S/P Routine 04/27/2024 8: 42 AM CDT Failure Heart (HCC) documented in this encounter Results * NT-Pro B-Type Natriuretic Peptide (BNP) (04/27/2024 8:42 AM CDT) Pathologist [facility] NT-Pro BNP 203 <=540 pg/mL 04/27/2024 10:16 [...] CDT Hugo Sanchez M.D. LAB BLOOD ADD-ON [facility] [address] [place] [address], [place] [address] * Bicarbonate (04/27/2024 8:42 AM CDT) [facility] Bicarbonate, S 26 22 - 29 mmol/L 04/27/2024 10:16 AM CDT DTL Blood (Blood, Venous) 04/27/2024 8:42 AM CDT 04/27/2024 9:24 AM CDT Hugo Sanchez M.D. LAB BLOOD ADD-ON [facility] [address] [place] [address], [place] [address] * (ABNORMAL) S-TSH (Thyroid-Stimulating Hormone - Sensitive) (04/27/2024 8:42 AM CDT) Pathologist [facility] TSH, Sensitive 4.9(H) 0.3 - 4.2 mIU/L 04/27/2024 10:16 AM CDT DTL Blood (Blood, Venous) 04/27/2024 8:42 AM CDT 04/27/2024 9:24 AM CDT Hugo Sanchez M.D. LAB BLOOD ADD-ON [facility] [address] [place] [address], [facility] [address] [place] [address] * CBC with Differential, Blood (04/27/2024 8:42 AM CDT) [facility] Hemoglobin 13.9 11.6 - 15.0 g/dL 04/27/2024 [...] 8:42 AM CDT 04/27/2024 9:08 AM CDT Hugo Sanchez M.D. LAB BLOOD ADD-ON [facility] [address] [place] [address], [facility] DTL [facility] [address] [place] [address] [facility] [address] [place] [address] * (ABNORMAL) Lipid Panel (04/27/2024 8:42 AM CDT) Triglycerides 144 mg/dL 04/27/2024 10:16 AM CDT [...] M.D. LAB BLOOD ADD-ON Performing Organization Address City/[facility]/ZIP [place] [address] * BUN (Blood Urea Nitrogen) (04/27/2024 8:42 AM CDT) BUN (Blood Urea Nitrogen), S 19 6 - 21 mg/dL 04/27/2024 10:16 AM CDT DTL Blood (Blood, Venous) 04/27/2024 8:42 AM CDT 04/27/2024 9:24 AM CDT Hugo Sanchez M.D. LAB BLOOD ADD-ON Performing Organization Address City/[facility] [place] [address] * AST (Aspartate Aminotransferase) (04/27/2024 8:42 AM CDT) Aspartate Aminotransferase (AST), S 18 8 - 43 U/L 04/27/2024 10:16 AM CDT DTL Blood (Blood, Venous) 04/27/2024 8:42 AM CDT 04/27/2024 9:24 AM CDT Hugo Sanchez M.D. LAB BLOOD ADD-ON Performing Organization Address City/[facility]/ZIP Co de Phone Number [facility] [address] [place] [address], [facility] [address] [place] [address] * Glucose, Fasting (04/27/2024 8:42 AM CDT) Glucose, P 92 70 - 100 mg/dL 04/27/2024 9:59 AM CDT DTL Last Intake 15 hr 04/27/2024 9:22 AM CDT DTL Blood (Blood, Venous) 04/27/2024 8:42 AM CDT 04/27/2024 9:22 AM CDT Hugo Sanchez M.D. LAB BLOOD NON ADD-ON Performing Organization Address City/[facility]/ZIP Co de Phone Number [facility] [address] [place] [address], [facility] [address] [place] [address] * Sodium (04/27/2024 8:42 AM CDT) Sodium, S 141 135 - 145 mmol/L 04/27/2024 10:16 AM CDT DTL Blood (Blood, Venous) 04/27/2024 8:42 AM CDT 04/27/2024 9:24 AM CDT Hugo Sanchez M.D. LAB BLOOD ADD-ON Performing Organization Address City/[facility]/ZIP Co de Phone Number [facility] [address] [place] [address], [facility] [address] [place] [address] * (ABNORMAL) Creatinine with Estimated GFR (04/27/2024 8:42 AM CDT) Creatinine 1.17(H) 0.59 - 1.04 mg/dL 04/27/2024 10:16 AM CDT DTL Estimated GFR (eGFR) 48(L) >=60 mL/min/BSA 04/27/2024 10:16 AM CDT DTL Comment: Estimated GFR calculated using the 2020 CKD_EPI creatinine equation. Blood (Blood, Venous) 04/27/2024 8:42 AM CDT 04/27/2024 9:24 AM CDT Jerardo Buckley M.D., Ph.D. LAB BLOOD AD D-ON Performing Organization Address [facility] Co de Phone Number [facility] [address] [place] [address], [facility] [address] [place] [address] * Potassium (04/27/2024 8:42 AM CDT) Potassium, S 4.4 3.6 - 5.2 mmol/L 04/27/2024 10:16 AM CDT DTL Blood (Blood, Venous) 04/27/2024 8:42 AM CDT 04/27/2024 9:24 AM CDT Jerardo Buckley M.D., Ph.D. LAB BLOOD AD D-ON Performing Organization Address [facility] Co de Phone Number [facility] [address] [place] [address], [facility] [address] [place] [address] documented in this encounter Visit Diagnoses Diagnosis Atrial Fibrillation Paroxysmal (HCC) Failure Heart (HCC) Thrombosis Deep Vein Personal History- Primary Assisted (Current) Anticoagulant Treatment Monitoring For Therapeutic Drug Therapy Atrial Fibrillation Paroxysmal (HCC) documented in this encounter Additional Health Concerns Assessment Noted Time PHQ-9 Depression Total Score: 8 04/26/20 24 10:43 AM CDT documented as of this encounter Care Teams Wax Coating Machine Tender Relationship Specialty Start Date End Date Emilia Lincoln M.D. [address] [place] [phone] PCP - General Family Medicine 08/13/23 documented as of this encounter
--- OUTSIDE RECORDS SUMMARY | 2024-05-08 13:44 | XMS_ITS | Referral Summary ---
Author Organization [facility] Address [address] [place] [address] Care Team Providers Care Journeyman Plumber Name Role Phone Emilia Lincoln M.D. Primary Care Provider [phone] Source Comments Patient records contain information from all sites at [facility]. For routine questions regarding patient records, call [phone] during business hours, M-F 8:00 AM - 5:00 PM Central Time. Record requests for emergency care only can be directed to [phone] at any time.[facility] Encounters Date Type Department Care Team Description 05/08/2024 2:00 PM CDT Anticoagulation Visit Department of Anticoagulation in [place], [place] [address] [place] [address] Emilia Lincoln M.D. Thrombosis Deep Vein Personal History (Primary Dx); Medicaid Business Analyst (Current) Anticoagulant Treatment; Monitoring For Therapeutic Drug Therapy; Atrial Fibrillation Paroxysmal (HCC) 05/04/2024 Clinical Communication Department of Anticoagulation in [place], [place] [address] [place] [address] Yun Lau Anticoagulation (Lack of Engagement) 04/27/2024 11:11 AM CDT - 04/27/2024 11:59 PM CDT Hospital Encounter Department of Cardiovascular Diseases in [place], [place] [address] [place] [address] Hugo Sanchez M.D. Failure Heart (HCC) Discharge Disposition: Home or Self Care 04/27/2024 9:16 AM CDT - 04/27/2024 11:10 AM CDT Hospital Encounter Department of Radiology, [facility], in [place], [place] [address] [place] [phone] Hugo Sanchez M.D. Failure Heart (HCC) Discharge Disposition: Home or Self Care 04/27/2024 8:25 AM CDT - 04/27/2024 9:15 AM CDT Hospital Encounter Department of Laboratory Medicine and Pathology, [facility] in [place], [place] [address] [place] [phone] Hugo Sanchez M.D. Atrial Fibrillation Paroxysmal (HCC); Failure Heart (HCC) Discharge Disposition: Home or Self Care 04/27/2024 4:00 PM CDT Office Visit Department of Cardiovascular Medicine in [place], [place] [address] [place] [phone] Hugo Sanchez M.D. Hypertension Essential Primary (Primary Dx); Chronic Diastolic (Congestive) Heart Failure (HCC); Atrial Fibrillation Paroxysmal (HCC); Sleep Apnea; Hyperlipidemia 04/11/2024 3:00 PM CDT Anticoagulation Visit Department of Anticoagulation in [place], [place] [address] [place] [phone] Emilia Lincoln M.D. Thrombosis Deep Vein Personal History; Fdc (Current) Anticoagulant Treatment; Monitoring For Therapeutic Drug Therapy; Atrial Fibrillation Paroxysmal (HCC) 04/04/2024 Refill Department of Family Medicine, [facility], in [address] [phone] Emilia Lincoln M.D. Med Refill 03/29/2024 3:00 PM CDT Anticoagulation Visit Department of Anticoagulation in [place], [place] [address] [place] [phone] Emilia Lincoln M.D. Thrombosis Deep Vein Personal History (Primary Dx); Fdc (Current) Anticoagulant Treatment; Monitoring For Therapeutic Drug Therapy; Atrial Fibrillation Paroxysmal (HCC) 03/29/2024 2:18 PM CDT - 03/29/2024 11:59 PM CDT Hospital Encounter Department of Laboratory Medicine in [place], [place] [address] [place] [address] Emilia Lincoln M.D. Atrial Fibrillation Paroxysmal (HCC); Medicaid Business Analyst (Current) Anticoagulant Treatment; Monitoring For Therapeutic Drug Therapy; Thrombosis Deep Vein Personal History Discharge Disposition: Home or Self Care 03/21/2024 2:45 PM CDT Telemedicine Center for Sleep Medicine in [place], [place] [address] [place] [phone] Andrews Ko M.B. Kloos Olson, Kristin E, R.N. Insomnia (Primary Dx) 03/20/2024 Clinical Communication Department of Anticoagulation in [place], [place] [address] [place] [phone] Magda Banks R.N. Anticoagulation (Home INR-machine left at other house) 03/01/2024 Refill Department of Cardiovascular Medicine in [place], [place] [address] [place] [phone] Guru Cruz M.D. Med Refill 02/28/2024 Refill Department of Cardiovascular Medicine in [place], [place] [address] [place] [phone] Guru Cruz M.D. Med Refill 02/21/2024 Clinical Communication Department of Cardiovascular Medicine in [place], [place] [address] [place] [phone] Spotlight OperatorHi M.D. Echo Move Up Request 02/21/2024 Clinical Communication Department of Cardiovascular Medicine in [place], [place] [address] [place] [phone] Hugo Sanchez M.D. 02/21/2024 1:30 PM CDT Anticoagulation Visit Department of Anticoagulation in [place], [place] [address] [place] [phone] Emilia Lincoln M.D. Atrial Fibrillation Paroxysmal (HCC); Fdc (Current) Anticoagulant Treatment; Monitoring For Therapeutic Drug Therapy; Thrombosis Deep Vein Personal History from Last 3 Months Allergies Active Allergy Reactions Criticality Noted Date [...] (COUMADIN) 5 mg tabletIndications: Atrial Fibrillation Paroxysmal (HCC),Medicaid Business Analyst (Current) Anticoagulant Treatment,Thrombos is Deep Vein Acute [...] 07/19/2023 Presence Of Left Artificial Knee Joint 3 Repeated Falls 07/19/2023 Anemia 09/09/2020 Personal History [...] - cardioversion, apparent NSR until wrapping up [facility] trip 07/23/18 - HR max 120 on metoprolol succinate 25 mg once daily - a.fib on exam today - discussed, to Rhythm Service for iv sotalol - back to Sleep Medicine for continued efforts re [facility] Rx. 09/16/2021 NSR on sotalol 120 mg BID ?? Fdc (Current) Anticoagulant Treatment 11/2017 Overview: 07/03/2019 ECH [...] deep compression, but otherwise benign exam - [facility] US negative - observe only. [...] Polyp Colon Adenomatous Personal History 014 Overview: 2014: Dr Alvares: #2 History of adenomatous colon [...] - cardioversion, apparent NSR until wrapping up [facility] trip 07/23/18 - HR max 120 on [...] mg once daily - exercise! BP 110/78 06/22 10: BP 100/60 on HCTZ 25 mg once [...] no heartburn, no diarrhea. NEG exam at [facility] [place] 12/29, repeat exam benign 01/26. Discussed in [...] sleeping a lot on [place] vacation in [place] - glad that spouse was off golfing [...] COVID-19 09/08/2020 Anticoagulant Therapy [Z79.01] 10/02/2017 08/12/2018 Medicaid Business Analyst (Current) Anticoagulant Treatment 10/09/2011 08/12/2018 Immunizations Name Administration Dates Next Due DTaP (Infanrix, Tripedia) 05/14/2006 H1N1 Inj 12/04/2009 HZV (ZOSTAVAX) 12/04/2009 Influenza (IM) Preservative Free 09/07/2011,03/2008,09/19/2008 Influenza Split 08/13/2016, 5,09/15/2014,2012,08/19/2012,10/06/1996,09/01/1995 Influenza high dose QV(65 ye ars or older) (PF) 09/24/2020,09/08/2020() Influenza, Seasonal, Injectable 08/19/2012,10/06,09/01/1995 Influenza, Unspecified 09/08/2020(Deferr ed: Other),08/24/2017,08/20/2015,09/18/2014 ,08/30/2013,08/29/2011,09/15/2010 PCV13 05/05/2016 PPSV23 08/23/2012 RZV (SHINGRIX) 06/15/2018,03/01/2018 SARS-COV-2 (COVID-19) - PFIZ ER (Discontinued)(12 years or older) 01/15/2021,12/25/2020 Td (Adult), adsorbed 12/10/2016(Deferred: Other) ,01/21/1999 Td Preservative Free (TENIVA C, DECAVAC) 04/06/2017 Tdap 05/14/2006 influenza high dose (65 year s or older) (PF) 08/23/2019,08/25/2018,08/24/2017,2015,08/20/2015 Social History Tobacco Use Types Packs/Day Years [...] How often do you attend chur or oriental orthodox services? More than 4 times per year 02/25/2022 Do you belong to any clubs o r organizations such as uatsdin groups, unions, fraternal or athletic groups, or [...] Answer Date Recorded PHQ-2 Score 3 04/26/2024 [facility] of Occupat ional Health - Occupational Stress [...] your living situation today? I have a [facility] place to live 05/26/2023 Education Answer Date Recorded What is the highest level of school you have completed or the highest degree you have received? Master's degree (e.g., MA, MS, Tacho, MEd, FLOOR CLERK, EARLE) 06/27/2019 Sex and Gender Information Value Date Recorded Sex Assigned at Female 11/24/2017 7:34 PM AUDIT CLERKS SUPERVISOR Gender Identity Female 05/03/2021 11:34 AM CDT Sexual Orientation Straight 05/03/2021 11 :34 AM CDT Last Filed Vital Signs Vital Sign Reading Time Taken Comments Blood Pressure 122/78 04/27/2024 4:06 PM CDT Pulse 63 04/27/2024 4:06 PM CDT Temperature 36.4 ??C (97.5 ??F) 11/03/2023 2:50 PM CS T Respiratory Rate 16 11/03/2023 5:34 PM AUDIT CLERKS SUPERVISOR Oxygen Saturation 96% 11/03/2023 9:29 AM AUDIT CLERKS SUPERVISOR Inhaled Oxygen Concentration - - Weight 92.7 kg (204 lb 5.9 oz) 04/27/2024 4:06 P M CDT Height 154.9 cm (5' 0.98) 04/27/2024 4:06 PM CD T Body Mass Index 38.63 04/27/2024 4:06 PM CDT Plan of Treatment Upcoming Encounters Date Type Department Care Team (Latest Contact Info) Description 05/08/2024 2:00 PM CDT Anticoagulation Visit Department of Anticoagulation in [place], [place] [address] [place] [phone] Emilia Lincoln M.D. [address] [place] [phone] Thrombosis Deep Vein Personal History (Primary Dx); Medicaid Business Analyst (Current) Anticoagulant Treatment; Monitoring For Therapeutic Drug Therapy; Atrial Fibrillation Paroxysmal (HCC) 05/25/2024 3:30 PM CDT Office Visit Center for Sleep Medicine in [place], [place] [address] [place] [phone] Silvino Pineda D.O., M.S. [address] [place] [phone] 2024 8:15 AM CDT Anticoagulation Visit Department of Anticoagulation in [place], [place] [address] [place] [phone] Emilia Lincoln M.D. [address] [place] [phone] Medical Devices Implanted Type Area Merchandise Execution Leader Device Identifier Shelf Expiration Date Model / Serial / Lot Knee Implant Knee Implant Knee J J Patella Rev Round 32m - [id number] Implanted:Qty: 1 on 09/11/2011 Knee Implant Other/Legacy - See Implant Description [employer] Description:Device Manufactu rer - J [employer] J Ortho. Body Location - Other. Left. Device Status Text - [id number] [id number]. Depuy-Insert Stabilized Sz 3 10mm - Rodriguez [id number] Implanted:Qty: 1 on 09/11/2011 Knee Implant Other/Legacy - See Implant Description [employer] Description:Device Manufactu rer - J & J Ortho. Body Location - Other. Left. Device Status Text - [id number] [id number]. Sigma Post Stab.W Lug Fem Sz 3 Lt - Rodriguez [id number] Implanted:Qty: 1 on 09/11/2011 Knee Implant Other/Legacy - See Implant Description [employer] Description:Device Manufactu rer - J & J Ortho. Body Location - Other. Left. Device Status Text - [id number] [id number]. Depuy-Tib Tray Mod Cement Cocr Sz3 - Rodriguez [id number] Implanted:Qty: 1 on 09/11/2011 Knee Implant Other/Legacy - See Implant Description [employer] Description:Device Manufactu rer - J & J Ortho. Body Location - Other. Left. Device Status Text - [id number] [id number]. Conversions - Default Historical Implant Device Implanted:09/27 (Quantity not on file) Knee Implant Description:Device Status Te xt - Knee Imp. artificial left knee. Cement Bone Large - Rodriguez [id number] Implanted:Qty: 2 on 09/11/2011 Misc Other [place] Description:Device Manufactu rer - Nette Terell.. Device Status Text - [id number]. Ocular Lens Ocular Lens Eye Lens [id number] 5.5 X 15.5 - Rodriguez [...] ABS, S Routine 04/27/2024 8:37 AM CDT [place] T4 FREE Routine 04/27/2024 8:37 AM CDT [...] 2:26 PM CDT Atrial Fibrillation Paroxysmal (HCC) Fdc (Current) Anticoagulant Treatment Monitoring For Therapeutic Drug Therapy Thrombosis Deep Vein Personal History PROTHROMBIN TIME (PT), P Routine 03/13/2024 PROTHROMBIN TIME (PT), P Routine 03/06/2024 PROTHROMBIN TIME (PT), P Routine 02/28/2024 PROTHROMBIN TIME (PT), P Routine 02/21/2024 PROTHROMBIN TIME (PT), P Routine 02/14/2024 PROTHROMBIN TIME (PT), P Routine 02/07/2024 BI BREAST SCREENING BILATERAL WITH TOMOSYNTHESIS RAD - Routine (most inpatients and all outpatients) 08/23/2023 1:41 PM CDT Screening Mammogram Breast Cancer COLONOSCOPY Routine 06/05/2022 10:57 AM CDT Polyp Colon COLOGUARD Routine 07/04/2020 3:30 PM CDT Screening Cancer Colon from Last 3 Months or Most Recently Relevant to Health Maintenance Results * Prothrombin Time (PT) (05/08/2024) Only the most recent of12 resultswithin the time period is included. EXT [...] was performed but not reported based on seed packer's judgment. Estimated right ventricular systolic pressure 30 [...] assessmentwas performed but not reported based on seed packer's judgment. Estimatedright ventricular systolic pressure 30 mmHg [...] ECG 12 Lead (04/27/2024 8:55 AM CDT) Ventricular Rate ECG/Min 57 BPM MUSE [place] Interval 206 ms MUSE QRSD Interval 94 ms MUSE QT Interval 456 ms MUSE QTC Interval 443 ms MUSE P [place] 34 degrees MUSE R [place] 19 degrees MUSE T Wave [place] 31 degrees MUSE 04/27/2024 8:55 AM CDT 04/27/2024 9:12 AM CDT Impressions MUSE - 04/27/2024 9:12 AM CDT Sinus bradycardia with 1st degree A-V block Otherwise normal ECG When compared with ECG of 01-Nov-2023 16:15, IL interval has increased Reviewed by SILVIA Dumont Narrative Procedure Note Helder Valero M.D., Ph.D. - 04/27/2024 IMPRESSION: Sinus bradycardia with 1st degree A-V block Otherwise normal ECG When compared with ECG of 01-Nov-2023 16:15, IL interval has increased Reviewed by SILVIA Dumont [...] CDT Hugo Sanchez M.D. LAB BLOOD ADD-ON [facility] [address] [place] [address], [facility] [address] [place] [address] * NT-Pro B-Type Natriuretic Peptide (BNP) (04/27/2024 8:42 AM CDT) NT-Pro BNP 203 <=540 pg/mL 04/27/2024 10:16 [...] CDT Hugo Sanchez M.D. LAB BLOOD ADD-ON [facility] [address] [place] [address], [facility] [address] [place] [address] * CBC with Differential, Blood (04/27/2024 8:42 AM CDT) Hemoglobin 13.9 11.6 - 15.0 g/dL 04/27/2024 [...] CDT Hugo Sanchez M.D. LAB BLOOD ADD-ON [facility] 200 [place], [place] [phone] [place] [address] [place] [address] * BUN (Blood Urea Nitrogen) (04/27/2024 8:42 AM CDT) BUN (Blood Urea Nitrogen), S 19 6 - 21 mg/dL 04/27/2024 10:16 AM CDT DTL Blood (Blood, Venous) 04/27/2024 8:42 AM CDT 04/27/2024 9:24 AM CDT Hugo Sanchez M.D. LAB BLOOD ADD-ON [facility] [address] [place], [place] [phone] [place] [address] 200 [place] [address] * AST (Aspartate Aminotransferase) (04/27/2024 8:42 AM CDT) Aspartate Aminotransferase (AST), S 18 8 - 43 U/L 04/27/2024 10:16 AM CDT DTL Blood (Blood, Venous) 04/27/2024 8:42 AM CDT 04/27/2024 9:24 AM CDT Hugo Sanchez M.D. LAB BLOOD ADD-ON [facility] [address] [place], [place] [phone] [place] [address] 200 [place] [address] * (ABNORMAL) S-TSH (Thyroid-Stimulating Hormone - Sensitive) (04/27/2024 8:42 AM CDT) TSH, Sensitive 4.9(H) 0.3 - 4.2 mIU/L 04/27/2024 10:16 AM CDT DTL Blood (Blood, Venous) 04/27/2024 8:42 AM CDT 04/27/2024 9:24 AM CDT Hugo Sanchez M.D. LAB BLOOD ADD-ON Performing Organization Address City/[facility] Co de Phone Number [facility] [address] [place], [place] [phone] [place] [address] 200 [place] [address] * Sodium (04/27/2024 8:42 AM CDT) Sodium, S 141 135 - 145 mmol/L 04/27/2024 10:16 AM CDT DTL Blood (Blood, Venous) 04/27/2024 8:42 AM CDT 04/27/2024 9:24 AM CDT Hugo Sanchez M.D. LAB BLOOD ADD-ON [facility] [address] [place], [place] [phone] [place] [address] 200 [place] [address] * Potassium (04/27/2024 8:42 AM CDT) Potassium, S 4.4 3.6 - 5.2 mmol/L 04/27/2024 10:16 AM CDT DTL Blood (Blood, Venous) 04/27/2024 8:42 AM CDT 04/27/2024 9:24 AM CDT Jerardo Buckley M.D., Ph.D. LAB BLOOD AD D-ON Performing Organization Address City/[facility]/ZIP Co de Phone Number [facility] [address] [facility] 200 [place] [address] * Glucose, Fasting (04/27/2024 8:42 AM CDT) Glucose, P 92 70 - 100 mg/dL 04/27/2024 9:59 AM CDT DTL Last Intake 15 hr 04/27/2024 9:22 AM CDT DTL Blood (Blood, Venous) 04/27/2024 8:42 AM CDT 04/27/2024 9:22 AM CDT Hugo Sanchez M.D. LAB BLOOD NON ADD-ON Performing Organization Address [facility] de Phone Number [facility] [address] [place] [address] * (ABNORMAL) Creatinine with Estimated GFR (04/27/2024 [...] LAB BLOOD AD D-ON Performing Organization Address City/[facility]/ZIP Co de Phone Number [facility] 200 [place], [place] [address] 200 [place] [address] * Bicarbonate (04/27/2024 8:42 AM CDT) Bicarbonate, S 26 22 - 29 mmol/L 04/27/2024 10:16 AM CDT DTL Blood (Blood, Venous) 04/27/2024 8:42 AM CDT 04/27/2024 9:24 AM CDT Hugo Sanchez M.D. LAB BLOOD ADD-ON [facility] [address] [place], [place] [phone] [place] [address] 200 [place] [address] * T4 (Thyroxine), Free, Serum (04/27/2024 8:37 AM CDT) Pathologist [facility] T4 (Thyroxine), Free, S 1.2 0.9 - 1.7 ng/dL 04/28/2024 10:55 AM CDT DTL Blood 04/27/2024 8:37 AM CDT 04/28/2024 9:54 AM CDT Hugo Sanchez M.D. LAB BLOOD ADD-ON [facility] [address] [place], [place] [phone] [place] [address] 200 [place] [address] * (ABNORMAL) Thyroid Function [place] (04/27/2024 8:37 AM CDT) TSH, Sensitive 4.9(H) 0.3 - 4.2 mIU/L 04/28/2024 10:35 AM CDT DTL Blood (Blood, Venous) 04/27/2024 8:37 AM CDT 04/28/2024 9:54 AM CDT Hugo Sanchez M.D. LAB BLOOD ADD-ON Performing Organization Address City[facility]/[place] [address] * Thyroperoxidase (TPO) Antibodies (04/27/2024 8:37 AM CDT) Thyroperoxidase Ab, S <15.0 <34.0 IU/mL 04/28/2024 10:55 AM CDT DTL Blood 04/27/2024 8:37 AM CDT 04/28/2024 9:54 AM CDT Hugo Sanchez M.D. LAB BLOOD ADD-ON Performing Organization Address [facility] Co de Phone Number [facility] [address] [place] [address] * INR Reflex, POCT, Blood (03/29/2024 2:26 PM CDT) INR Reflex, POCT, B 3.3 03/29/2024 2:25 PM CDT [id number] Comment: ----ADDITIONAL INFORMATION---- Standard intensity warfarin therapeutic range: 2.0 to 3.0 ?? High intensity warfarin therapeutic range: 2.5 to 3.5 Blood (Blood, Capillary) 03/29/2024 2:26 PM CDT 03/29/2024 2:25 PM CDT Emilia Lincoln M.D. LAB POCT ORDERABLE S - DEVICE [facility] [address] [place] [address], [place] [id number] [facility] [address] [place] [address] * BI Breast Screening Bilateral with Tomosynthesis (08/23/2023 1:41 PM CDT) Anatomical Region Laterality Modality Breast, [...] Screening Mammogram ASSESSMENT: BI-RADS: 1: Negative. Emilia OCHOA BI PROCEDURES * Cologuard (07/04/2020 3:30 PM CDT) Result Negative Not Applicable 07/12/2020 4:31 PM [...] screened with both Cologuard and colonoscopy. (Ritesh Whitman al, N Engl J Med 2014;370(14):7515-1915) The normal value (reference range) for this assay is negative. COLOGUARD RE-SCREENING RECOMMENDATION: Periodic routine colorectal cancer screening is an important part of preventive healthcare for asymptomatic persons at average risk for colorectal cancer. Following a negative Cologuard result, the [place] [employer] Society and U.S. Multi-Society Task Force screening guidelines recommend a Cologuard re-screening interval of 3 years. References: [place] [employer] Society (ACS). Colorectal cancer prevention and early detection. [place], [place]: [place] [employer]; [updated 2015Mar 08]. https://www.cancer.org/cancer/gddza-dwvjbg-qppajp/detection- diagnosis-staging/acs-recommendations.html. Accessed July 15, 2018; Hao LIMON, Ludmila MAY, Ashley GRADY, Colorectal Cancer Screening: Recommendations for Physicians and Patients from the U.S. Multi-Society Task Force on Colorectal Cancer Screening, Am J Gastroenterology 2017; 112:4385-1318. TEST TYPE: Composite algorithmic analysis of stool [...] interval of every 3 years by the [place] [employer] Society and U.S. Multi-Society Task Force. [...] can be accessed at the following location: www.[employer] Roundtable/results. Additional description of the Cologuard test process, warnings and precautions can be found at www.cologuardtest.com. Rx only. Stool (Stool) 07/04/2020 3:3 0 PM CDT 07/06/2020 6:50 PM CDT Telly Gaines M.D. LAB BODY FLUIDS AN D STOOLS ORDERABLES [facility] [address] [place] [address] [facility] [address] [place] [address], [address] [place] [address] from Last 3 Months or Most Recently Relevant to Health Maintenance Advance Directives For more information, please contact: [phone] Documents on File Type Date Recorded Patient Library Science Instructor Expl anation Advance Directives 05/19/2018 4:06 PM Healt h Care Directive Advance Directives 05/14/2005 12:00 AM Leg acy document. See document viewer. * Full Code (Latest Code Status on File) Date Activated Date Inactivated Comments 07/19/2023 6:52 AM 07/21/2023 6:52 PM Question Answer Comments Full Code: Discussed * DNR/DNI Date Activated Date Inactivated Comments 09/08/2020 4:28 AM 09/09/2020 4:28 PM * Full Code Date Activated Date Inactivated Comments 07/25/2018 4:39 PM 07/27/2018 10:29 PM Question Answer Comments Full Code: Discussed * Full Code Date Activated Date Inactivated Comments 07/13/2018 1:06 PM 07/13/2018 11:42 PM Question Answer Comments Full Code: Discussed * Full Code Date Activated Date Inactivated Comments 07/13/2018 1:06 PM 07/13/2018 1:06 PM Question Answer Comments Full Code: Discussed Healthcare Agents on File Name Relationship Healthcare Agent Relationshi p Communication Larry Coleman Spouse Health Care Agent Magda Calix Daughter First Alternat e Health Care Agent Care Teams Journeyman Plumber Relationship Specialty Start Date End Date Emilia Lincoln M.D. [address] [place] [phone] PCP - General Family Medicine 08/13/23
--- OUTSIDE RECORDS SUMMARY | 2024-05-08 13:44 | XMS_ITS ---
Author Organization [facility] Address [address] [place] [address] Care Team Providers Care Nursing Care Attendant Name Role Phone Unavailable Unavailable Unavailable Surgery Details Not on file Complications Check Surgery Details section. Procedure Estimated Blood Loss Check Surgery Details section. Procedure Findings Check Surgery Details section. Procedure Specimens Taken Check Surgery Details section.
--- OUTSIDE RECORDS SUMMARY | 2024-05-08 13:44 | XMS_ITS | Encounter Summary ---
Author Organization [facility] Address [address] [place] [address] Care Team Providers Care Assistant Executive Housekeeper Name Role Phone Emilia Lincoln M.D. Primary Care Provider +1- [phone] Reason for Visit * Reason Comments Med Refill Encounter Details Date Type Department Care Team (Late st Contact Info) Description 04/04/2024 Refill Department of Family Medicine, [facility], in [address] [phone] Emilia Lincoln M.D. [address] [place] [phone] Med Refill Social History Tobacco Use Types Packs/Day Years [...] any clubs o r organizations such as congregation groups, unions, fraternal or athletic groups, or [...] Answer Date Recorded PHQ-2 Score 2 10/27/2023 [facility] Normal of Occupat ional Health - Occupational Stress [...] your living situation today? [facility] a [facility] to live 05/26/2023 Education Answer Date Recorded What is the highest level of school you have completed or the highest degree you have received? Master's degree (e.g., MA, MS, Tacho, MEd, SENIOR UI UX DEVELOPER, [employer]ARLE) 06/27/2019 Sex and Gender Information Value Date Recorded Sex Assigned at Female 11/24/2017 7:34 PM BRANCH OFFICER Gender Identity Female 05/03/2021 11:34 AM CDT Sexual Orientation Straight 05/03/2021 11 :34 AM CDT documented as of this encounter Miscellaneous Notes * Telephone Encounter - Yudelka Cerda - 04/04/2024 5:14 PM CDT Existing Office Visit order(s) available for patient to schedule. documented in this encounter Plan of Treatment Upcoming Encounters Date Type Department Care Team (Latest Contact Info) Description 05/08/2024 2:00 PM CDT Anticoagulation Visit Department of Anticoagulation in [place], [place] [address] [place] [phone] Emilia Lincoln M.D. 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 [address] [place] [phone] 2024 8:15 AM CDT Anticoagulation Visit Department of Anticoagulation in [address] [phone] Emilia Lincoln M.D. [address] [place] [phone] documented as of this encounter Visit Diagnoses Not on filedocumented in this encounter Additional Health Concerns Assessment Noted Time PHQ-9 Depression Total Score: 3 10/27/20 23 8:30 PM BRANCH OFFICER documented as of this encounter Care Teams Assistant Executive Housekeeper Relationship Specialty Start Date End Date Emilia Lincoln M.D. [address] [place] [phone] PCP - General Family Medicine 08/13/23 documented as of this encounter
--- OUTSIDE RECORDS SUMMARY | 2024-05-08 13:44 | XMS_ITS | Encounter Summary ---
Author Organization [facility] Address [address] [place] [address] Care Team Providers Care Candy Decorator Name Role Phone Emilia Lincoln M.D. Primary Care Provider +1- [phone] Reason for Referral * Outpatient (Routine) - Closed Specialty Diagnoses / Procedures Referred By Yessicaac t Referred To Contact Anticoagulation Emilia Lincoln M.D. [address] [phone] [facility] Referral ID Status Reason Start Date Expiration Date Visits Re quested Visits Authorized [id number] Closed 04/11/2024 10/11/2025 1 1 Scheduling Instructions 05/01/2024 Reason for Visit * Outpatient (Routine) - Closed Specialty Diagnoses / Procedures Referred By Evie saxena Referred To Contact Anticoagulation Diagnoses Thrombosis Deep Vein Personal History Correction (Current) Anticoagulant Treatment Monitoring For Therapeutic Drug Therapy Atrial Fibrillation Paroxysmal (HCC) Emilia Lincoln M.D. [address] [phone] [facility] Referral ID Status Reason Start Date Expiration Date Visits Re quested Visits Authorized [id number] Closed 03/29/2024 09/28/2025 1 1 Encounter Details Date Type Department Care Team (Latest Contact Info) Description 04/11/2024 3:00 PM CDT Anticoagulation Visit Department of Anticoagulation in [place], [place] [address] [place] [phone] Emilia Lincoln M.D. [address] [place] [phone] Thrombosis Deep Vein Personal History; Correction (Current) Anticoagulant Treatment; Monitoring For Therapeutic Drug Therapy; Atrial Fibrillation Paroxysmal (HCC) Social History Tobacco Use Types Packs/Day Years [...] often do you attend chur ch or judaism services? 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 - 04/11/2024 3:00 PM CDT The day before your next INR review you will receive a message via Patient [employer] [facility] (portal) asking you to report your INR results and complete an attached questionnaire. Please continue to test your INR weekly and contact the anticoagulation clinic on the day of testing if your INR falls outside of goal range or if your INR changes by 1.0 or greater in a week. You will need to call the Anticoagulation Program for warfarin dosing at the scheduled time for your nurse visit, as indicated onyour Patient Appointment Guide (PAG). To reschedule your appointment or for questions about your warfarin, please call Primary Care Anticoagulation Program at [phone] from 7:30 am to 4:30 pm. Wednesday-Wednesday . When To Contact Your Health Care Provider If you are experiencing any of the following symptoms, Call 911 or go to the emergency room: chest pain, shortness of breath, vomiting or coughing up blood, large amounts of rectal bleeding, symptomsof a stroke- sudden weakness or inability to move a body part (the face, arm or leg), difficulty speaking or trouble understanding others, sudden blurred, decreased vision, or double vision, dizziness, loss of balance /coordination or a sudden, severe headache. If you fall and or hit your head or suffer a blow to the head, seek emergency treatment. Contact your health care provider about your Warfarin dose: Before any surgical procedures (including tooth extractions) and certain non- surgical procedures (for example, colonoscopies). When you are sick with a fever or develop persistent diarrhea or vomiting. If you doubt that you took your Warfarin as directed. If you start an antibiotic or any prescription drug or if you start any herbal or other rsgz-idl-ryemazw product (check with your doctor, a nurse, or pharmacist). If you change your diet significantly. If you decide to stop or start using tobacco or alcohol. If you notice unusual bruising or bleeding. If you notice dark, tarry, or bright red stools or blood in your urine. If you have a painful and swollen calf. documented in this encounter Progress Notes * Becky Howard R.N. - 04/11/2024 3:00 PM CDT Warfarin Maintenance Nursing Protocol Goal Range 2.0-3.0 (version approved 12/2021) Visit Type: Telephone and Home/Self Test INR Primary reason for visit: Home INR Monthly INR review Information provided by:patient INR result: 2.5 Goal range: 2.0-3.0 Inclusion Criteria: All inclusion criteria met. Proceeded to exclusion criteria. Exclusion Criteria: Section 1: No Section 1 exclusion criteria, proceeded to Section 2. Section 2: No Section 2 exclusion criteria, proceeded to screening criteria. Screening Criteria: Patient is currently enrolled in Home INR Program. Proceeded to maintenance warfarin dosing and follow-up, but follow-up INR not to extend beyond Home INR follow-up order. Additional Info: Home INR Program: Patient performs routine INRs weekly on Wednesday Previous INR was therapeutic. Today???s INR is Therapeutic. Dosing and follow up recommendation: Protocol dosing range for INR 2.0-3.0: No change in weekly dose. Currently bridging? no. Next INR in 7 days. per positive screening criteria. Additional dosing or follow-up information: None. Pt is on injectable anticoagulant: No. Plan used: Protocol. See Anticoagulation Track Calendar for dosing and plan details. Anticoagulation Visit Summary: Patient repeats back dosing instructions, date of next INR, and has no further questions at this time. Total time spent with patient: N/A documented in this encounter Plan of Treatment Upcoming Encounters Date Type Department Care Team (Latest Contact Info) Description 05/08/2024 2:00 PM CDT Anticoagulation Visit Department of Anticoagulation in [address] [phone] Emilia Lincoln M.D. [address] [place] [phone] Thrombosis Deep Vein Personal History (Primary Dx); Electronic Tester (Current) Anticoagulant Treatment; Monitoring For Therapeutic Drug Therapy; Atrial Fibrillation Paroxysmal (HCC) 05/25/2024 3:30 PM CDT Office Visit [facility] in [address] [phone] Silvino Pineda D.O., M.S. [address] [place] [phone] 2024 8:15 AM CDT Anticoagulation Visit Department of Anticoagulation in [address] [phone] Emilia Lincoln M.D. [address] [place] [phone] Scheduled Referrals Name Type Priority Associated Diagnoses Order Schedule Anticoagulation nurse visit (clinic) Outpatient Referral Routine Expected: 05/01/2024, Expires: 07/12/2025 documented as of this encounter Procedures Procedure Name Priority Date/Time Associated Diagnosis Comments PROTHROMBIN TIME (PT), P Routine 04/10/2024 PROTHROMBIN TIME (PT), P Routine 04/03/2024 PROTHROMBIN TIME (PT), P Routine 03/13/2024 PROTHROMBIN TIME (PT), P Routine 03/06/2024 PROTHROMBIN TIME (PT), P Routine 02/28/2024 documented in this encounter Results * Prothrombin Time (PT) (04/10/2024) EXT INR 2.50 PATIENT PO INT OF CARE DEVICE Blood (Blood, Venous) 04/10/2024 Historical Provider LAB BLOOD ADD-ON Performing Organization Address City/[facility]/ZIP Co de Phone Number PATIENT POINT OF CARE DEVICE * Prothrombin Time (PT) (04/03/2024) EXT INR 2.50 PATIENT PO INT OF CARE DEVICE Blood (Blood, Venous) 04/03/2024 Historical Provider LAB BLOOD ADD-ON Performing Organization Address City/[facility]/ZIP Co de Phone Number PATIENT POINT OF CARE DEVICE * Prothrombin Time (PT) (03/13/2024) EXT INR 2.40 PATIENT PO INT OF CARE DEVICE Blood (Blood, Venous) 03/13/2024 Historical Provider LAB BLOOD ADD-ON PATIENT POINT OF CARE DEVICE * Prothrombin Time (PT) (03/06/2024) EXT INR 2.40 PATIENT PO INT OF CARE DEVICE Blood (Blood, Venous) 03/06/2024 Historical Provider LAB BLOOD ADD-ON PATIENT POINT OF CARE DEVICE * Prothrombin Time (PT) (02/28/2024) EXT INR 2.30 PATIENT PO INT OF CARE DEVICE Blood (Blood, Venous) 02/28/2024 Historical Provider LAB BLOOD ADD-ON PATIENT POINT OF CARE DEVICE documented in this encounter Visit Diagnoses Diagnosis Thrombosis Deep Vein Personal History Electronic Tester (Current) Anticoagulant Treatment Monitoring For Therapeutic Drug Therapy Atrial Fibrillation Paroxysmal (HCC) Thrombosis Deep Vein Personal History- Primary Correction (Current) Anticoagulant Treatment Monitoring For Therapeutic Drug Therapy Atrial Fibrillation Paroxysmal (HCC) documented in this encounter Additional Health Concerns Assessment Noted Time PHQ-9 Depression Total Score: 3 10/27/20 23 8:30 PM OPTOMETRIC TECHNICIAN documented as of this encounter Care Teams Candy Decorator Relationship Specialty Start Date End Date Emilia Lincoln M.D. [address] [place] [phone] PCP - General Family Medicine 08/13/23 documented as of this encounter
--- OUTSIDE RECORDS SUMMARY | 2024-05-08 13:44 | XMS_ITS | Encounter Summary ---
Author Organization [facility] Address [address] [place] [address] Care Team Providers Care Production Material Coordinator Name Role Phone Emilia Lincoln M.D. Primary Care Provider +1- [phone] Reason for Referral * Outpatient (Routine) - Authorized Specialty Diagnoses / Procedures Referred By Contac t Referred To Contact Emilia Crouch M.D. [id number] [place] [phone] [facility] Referral ID Status Reason Start Date Expiration Date V isits Requested Visits Authorized [id number] Authorized 05/08/2024 11/07/2025 1 1 Reason for Visit * Outpatient (Routine) - Closed Specialty Diagnoses / Procedures Referred By Contac t Referred To Contact Emilia Crouch M.D. [phone] [place] [phone] [facility] Referral ID Status Reason Start Date Expiration Date Visits Re quested Visits Authorized [id number] Closed 04/11/2024 10/11/2025 1 1 Encounter Details Date Type Department Care Team (Latest Contact Info) Description 05/08/2024 2:00 PM CDT Anticoagulation Visit Department of Anticoagulation in [place], [place] [address] [place] [phone] Emilia Lincoln M.D. [address] [place] [phone] Thrombosis Deep Vein Personal History (Primary Dx); Detention (Current) Anticoagulant Treatment; Monitoring For Therapeutic Drug [...] often do you attend chur ch or hoahaoism services? 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 - 05/08/2024 2:00 PM CDT The day before your next INR review you will receive a message via [facility] [employer] [facility] (portal) asking you to report your [...] please call Primary Care Anticoagulation Program at [phone] from 7:30 am to 4:30 pm. Wednesday-Wednesday [...] if you start any herbal or other cdns-bjn-pgrxonn product (check with your doctor, a nurse, or pharmacist). If you change your diet significantly. If you decide to stop or start using tobacco or alcohol. If you notice unusual bruising or bleeding. If you notice dark, tarry, or bright red stools or blood in your urine. If you have a painful and swollen calf. documented in this encounter Progress Notes * Magda Banks R.N. - 05/08/2024 2:00 PM CDT Warfarin Maintenance Nursing Protocol Goal Range 2.0-3.0 (version approved 12/2021) Visit Type: Telephone and Home/Self Test INR Primary reason for visit: Home INR Monthly INR review was due 05/01 Information provided by:patient INR result: 2.7 Goal range: 2.0-3.0 Inclusion Criteria: All inclusion [...] Patient performs routine INRs weekly on Wednesday Next routine monthly appointment for INR review (date/time): 05/29. Patient will initiate contact toAnticoagulation Service if INR out of goal range on day of Home INR check OR if INR is higher or lower than last INR by 1 or more. Previous INR was therapeutic. Today???s INR is [...] has no further questions at this time. and Patient provided with warfarin dosing and next INR appointment via Patient Online Services. Patient encouraged to call or send message back if any questions. Total time spent with patient: N/A documented in this encounter Plan of Treatment Upcoming Encounters Date Type Department Care Team (Latest Contact Info) Description 05/25/2024 3:30 PM CDT Office Visit [facility] in [place], [place] [address] [place] [phone] Silvino Pineda D.O., M.S. [address] [place] [phone] 2024 8:15 AM CDT Anticoagulation Visit Department of Anticoagulation in [place], [place] [address] [place] [phone] Emilia Lincoln M.D. [address] [place] [phone] Scheduled Referrals Name Type Priority Associated Diagnoses Order Schedule Anticoagulation nurse visit (clinic) Outpatient Referral Routine Expected: 2024, Expires: 08/08/2025 documented as of this encounter Procedures Procedure Name Priority Date/Time Associated Diagnosis Comments PROTHROMBIN TIME (PT), P Routine 05/08/2024 PROTHROMBIN TIME (PT), P Routine 05/01/2024 PROTHROMBIN TIME (PT), P Routine 04/24/2024 PROTHROMBIN TIME (PT), P Routine 04/17/2024 documented in this encounter Results * Prothrombin Time (PT) (05/08/2024) EXT INR 2.70 PATIENT PO INT OF CARE DEVICE Comment:self Blood (Blood, Venous) Historical Provider LAB BLOOD ADD-ON Performing Organization Address City/State/[facility] Co de Phone Number PATIENT POINT OF CARE DEVICE * Prothrombin Time (PT) (05/01/2024) EXT INR 2.90 PATIENT PO INT OF CARE DEVICE Comment:self Blood (Blood, Venous) Historical Provider LAB BLOOD ADD-ON Performing Organization Address [facility] Co de Phone Number PATIENT POINT OF CARE DEVICE * Prothrombin Time (PT) (04/24/2024) EXT INR 2.70 PATIENT PO INT OF CARE DEVICE Comment:self Blood (Blood, Venous) Historical Provider LAB BLOOD ADD-ON Performing Organization Address City/State/[facility] Co de Phone Number PATIENT POINT OF CARE DEVICE * Prothrombin Time (PT) (04/17/2024) EXT INR 2.90 PATIENT PO INT OF CARE DEVICE Comment:self Blood (Blood, Venous) Historical Provider LAB BLOOD ADD-ON Performing Organization Address [facility] Co de Phone Number PATIENT POINT OF CARE DEVICE documented in this encounter Visit Diagnoses Diagnosis Thrombosis Deep Vein Personal History- Primary Detention (Current) Anticoagulant Treatment Monitoring For Therapeutic Drug Therapy Atrial Fibrillation Paroxysmal (HCC) documented in this encounter Additional Health Concerns Assessment Noted Time PHQ-9 Depression Total Score: 8 04/26/20 24 10:43 AM CDT documented as of this encounter Care Teams Production Material Coordinator Relationship Specialty Start Date End Date Emilia Lincoln M.D. [address] [phone] PCP - General Family Medicine 08/13/23 documented as of this encounter
--- OUTSIDE RECORDS SUMMARY | 2024-05-08 13:44 | XMS_ITS | Encounter Summary ---
Author Organization [facility] Address [address] [place] [address] Care Team Providers Care Commission Agent Livestock Name Role Phone Emilia Lincoln M.D. Primary Care Provider +1- [phone] Reason for Referral * Outpatient (Routine) - Closed Specialty Diagnoses / Procedures Referred By Contac t Referred To Contact Anticoagulation Diagnoses Thrombosis Deep Vein Personal History Alf (Current) Anticoagulant Treatment Monitoring For Therapeutic Drug Therapy Atrial Fibrillation Paroxysmal (HCC) Emilia Lincoln M.D. [id number] [place] [phone] [facility] Referral ID Status Reason Start Date Expiration Date Visits Re quested Visits Authorized [id number] Closed 03/29/2024 09/28/2025 1 1 Reason for Visit * Outpatient (Routine) - Closed Specialty Diagnoses / Procedures Referred By Contac t Referred To Contact Anticoagulation Emilia Lincoln M.D. [id number] [place] [phone] [facility] Referral ID Status Reason Start Date Expiration Date Visits Re quested Visits Authorized [id number] Closed 02/21/2024 08/22/2025 1 1 Encounter Details Date Type Department Care Team (Latest Contact Info) Description 03/29/2024 3:00 PM CDT Anticoagulation Visit Department of Anticoagulation in [place], [place] [address] [place] [address] Emilia Lincoln M.D. [address] [place] [phone] Thrombosis Deep Vein Personal History (Primary Dx); Alf (Current) Anticoagulant Treatment; Monitoring For Therapeutic Drug [...] often do you attend chur ch or worship services? More than 4 times per year 02/25/2022 Do you belong to any clubs o r organizations such as yazidi groups, unions, fraternal or athletic groups, or [...] Answer Date Recorded PHQ-2 Score 2 10/27/2023 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 - 03/29/2024 3:00 PM CDT The day before your next INR review you will receive a message via Patient [facility] (portal) asking you to report your INR results and complete an attached questionnaire. Your next monthly date to report is 04/03. If you have not received your test strips by then, pleasecall on 04/10/24 with results Please continue to test your INR weekly and contact the anticoagulation clinic on the day of testing if your INR falls outside of goal range or if your INR changes by 1.0or greater in a week. You will need to call the Anticoagulation Program for warfarin dosing at the scheduled time for your nurse visit, as indicated on your Patient Appointment Guide (PAG). To reschedule your appointment or for questions about your warfarin, please call Primary Care Anticoagulation Program at [phone] from 7:30 am to 4:30 pm. Wednesday-Wednesday . When To Contact Your Health Care Provider If you are experiencing any of the following symptoms, Call [phone] or go to the emergency room: chest [...] if you start any herbal or other [id number] product (check with your doctor, a nurse, or pharmacist). If you change your diet significantly. If you decide to stop or start using tobacco or alcohol. If you notice unusual bruising or bleeding. If you notice dark, tarry, or bright red stools or blood in your urine. If you have a painful and swollen calf. documented in this encounter Progress Notes * Gwen Salomon M.S.N., R.N. - 03/29/2024 3:00 PM CDT Warfarin Maintenance Nursing Protocol Goal Range 2.0-3.0 (version approved 12/2021) Visit Type: Telephone Primary reason for visit: Routine f/u OR f/u per previous visit recommendations and HM patient tested in clinic today Information provided by:patient INR result: 3.3 Goal range: 2.0-3.0 Inclusion Criteria: All inclusion criteria met. Proceeded to exclusion criteria. Exclusion Criteria: Section 1: No Section 1 exclusion criteria, proceeded to Section 2. Section 2: No Section 2 exclusion criteria, proceeded to screening criteria. Screening Criteria: Patient has started, stopped, or has had a dose adjustment of medication: yes. Since last INR check. Medication: Flonase was started on 03/27 prn. Medication not on Appendix A and per Micromedex, no interaction. Proceeded to maintenance warfarin dosing and follow-up. Medication: Claritin was started on 03/27/24 prn. Medication not on Appendix A and per Micromedex, no interaction. Proceeded to maintenance warfarin dosing and follow-up. Additional Info: Not feeling well with sneezing, coughing. Feels it is allergies or a cold Previous INR was therapeutic. Today???s INR is Supratherapeutic, Causes: cold symptoms . Dosing and follow up recommendation: Protocol dosing range for INR 3.3-3.5: Decrease average daily dose by 50% for 1 dose, then resume current dose per protocol. Next INR in 8-10 days. Additional dosing or follow-up information: Patient declined recommended f/u. Re-educated patient on rationale for dosing and return request. Will return on 04/10 per patient. Patient is normally HM, but ran out of test strips. Refill was sent to wrong address. Pt was advised to call on Wednesday, 04/03if strips were received, otherwise she will call on 04/10 Pt is on injectable anticoagulant: No. Plan [...] CDT Anticoagulation Visit Department of Anticoagulation in [place], [place] [address] [place] [phone] Emilia Lincoln M.D. 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 [address] [place] [phone] 2024 8:15 AM CDT Anticoagulation Visit Department of Anticoagulation in [place], [place] [address] [place] [address] Emilia Lincoln M.D. [address] [place] [phone] Scheduled Referrals Name Type Priority Associated Diagnoses Orde r Schedule Anticoagulation nurse visit (clinic) Outpatient Referral Routine Thrombosis Deep Vein Personal History Alf (Current) Anticoagulant Treatment Monitoring For Therapeutic Drug Therapy Atrial Fibrillation Paroxysmal (HCC) Expected: 04/10/2024, Expires: 06/29/2025 documented as of this encounter Visit Diagnoses Diagnosis Thrombosis Deep Vein Personal History- Primary Alf (Current) Anticoagulant Treatment Monitoring For Therapeutic Drug Therapy Atrial Fibrillation Paroxysmal (HCC) Thrombosis Deep Vein Personal History- Primary 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 [address] [place] [phone] PCP - General Family Medicine 08/13/23 documented as of this encounter
--- OUTSIDE RECORDS SUMMARY | 2024-05-08 13:45 | XMS_ITS | Encounter Summary ---
Author Organization [facility] Address [address] [place] [address] Care Team Providers Care Ear Specialist Name Role Phone Emilia Lincoln M.D. Primary Care Provider +1- [phone] Reason for Referral * Outpatient (Routine) - Closed Specialty Diagnoses / Procedures Referred By Contac t Referred To Contact Diagnoses Failure Heart (HCC) Procedures Echo Transthoracic (TTE) Hugo Sanchez M.D. [address] [place] [address] [facility] Referral ID Status Reason Start Date Expiration Date Visits Re quested Visits Authorized [id number] Closed 02/21/2024 02/20/2025 1 1 * Outpatient (Routine) - Closed Specialty Diagnoses / Procedures Referred By Contac t Referred To Contact Diagnoses Failure Heart (HCC) Procedures ECG 12 Lead Hugo Sanchez M.D. [address] [place] [address] [facility] Referral ID Status Reason Start Date Expiration Date Visits Re quested Visits Authorized [id number] Closed 02/21/2024 02/20/2025 1 1 * Outpatient (Routine) - Closed Specialty Diagnoses / Procedures Referred By Contac t Referred To Contact Diagnoses Failure Heart (HCC) Procedures DX Chest AP or PA and Lateral 2 Views Hugo Sanchez M.D. [address] [place] [address] [facility] Referral ID Status Reason Start Date Expiration Date Visits Re quested Visits Authorized [id number] Closed 02/21/2024 02/20/2025 1 1 Encounter Details Date Type Department Care Team (Latest Contact Info) Description 02/21/2024 Clinical Communication Department of Cardiovascular Medicine in [place], [place] [address] [place] [phone] Hugo Sanchez M.D. [address] [place] [phone] Social History Tobacco Use Types Packs/Day Years [...] week 02/25/2022 How often do you attend [facility] or congregational services? More than 4 times per year 02/25/2022 Do you belong to any clubs o r organizations such as islam groups, unions, fraternal or athletic groups, or [...] Answer Date Recorded PHQ-2 Score 2 10/27/2023 [facility] ional Health - Occupational [...] your living situation today? I have a [facility] place to live 05/26/2023 Education Answer Date Recorded What is the highest level of school you have completed or the highest degree you have received? Master's degree (e.g., MA, MS, Tacho, MEd, REGISTERED RADIATION THERAPIST, EARLE) 06/27/2019 Sex and Gender Information Value Date Recorded Sex Assigned at Female 11/24/2017 7:34 PM CAGE OPERATOR Gender Identity Female 05/03/2021 11:34 AM CDT Sexual Orientation Straight 05/03/2021 11 :34 AM CDT documented as of this encounter Plan of Treatment Upcoming Encounters Date Type Department Care Team (Latest Contact Info) Description 05/08/2024 2:00 PM CDT Anticoagulation Visit Department of Anticoagulation in [place], [place] [address] [place] [address] Emilia Lincoln M.D. [address] [place] [phone] Thrombosis Deep Vein Personal History (Primary Dx); Nut Tapper (Current) Anticoagulant Treatment; Monitoring For Therapeutic Drug Therapy; Atrial Fibrillation Paroxysmal (HCC) 05/25/2024 3:30 PM CDT Office Visit [facility] in [place], [place] [address] [place] [address] Silvino Pineda D.O., M.S. [address] [place] [phone] 2024 8:15 AM CDT Anticoagulation Visit Department of Anticoagulation in [place], [place] [address] [place] [address] Emilia Lincoln M.D. [address] [phone] documented as of this encounter Results * (TTE) 2D ECHO [...] was performed but not reported based on geological sample tester's judgment. Estimated right ventricular systolic pressure 30 [...] assessmentwas performed but not reported based on geological sample tester's judgment. Estimatedright ventricular systolic pressure 30 mmHg [...] CDT) Ventricular Rate ECG/Min 57 BPM MUSE NM Interval 206 ms MUSE QRSD Interval 94 ms MUSE QT Interval 456 ms MUSE QTC Interval 443 ms MUSE P [place] 34 degrees MUSE R [place] 19 degrees MUSE T Wave [place] 31 degrees MUSE 04/27/2024 8:55 AM CDT 04/27/2024 9:12 AM CDT Impressions MUSE - 04/27/2024 9:12 AM CDT Sinus bradycardia with 1st degree A-V block Otherwise normal ECG When compared with ECG of 01-Nov-2023 16:15, NM interval has increased Reviewed by SILVIA Dumont Narrative Procedure Note Helder Valero M.D., Ph.D. - 04/27/2024 IMPRESSION: Sinus bradycardia with 1st degree A-V block Otherwise normal ECG When compared with ECG of 01-Nov-2023 16:15, NM interval has increased Reviewed by SILVIA Dumont Hugo Sanchez M.D. ECG ORDERABLES MUSE NA * NT-Pro B-Type Natriuretic Peptide (BNP) (04/27/2024 8:42 AM CDT) Pathologist [facility] NT-Pro BNP 203 <=540 pg/mL 04/27/2024 10:16 [...] M.D. LAB BLOOD ADD-ON Performing Organization Address City/[facility]/ZIP Co de Phone Number [facility] [address] [place] [address] * Bicarbonate (04/27/2024 8:42 AM CDT) Bicarbonate, S 26 22 - 29 mmol/L 04/27/2024 10:16 AM CDT DTL Blood (Blood, Venous) 04/27/2024 8:42 AM CDT 04/27/2024 9:24 AM CDT Hugo Sanchez M.D. LAB BLOOD ADD-ON Performing Organization Address [facility] Co de Phone Number [facility] [address] [place] [address] * (ABNORMAL) S-TSH (Thyroid-Stimulating Hormone - Sensitive) (04/27/2024 8:42 AM CDT) TSH, Sensitive 4.9(H) 0.3 - 4.2 mIU/L 04/27/2024 10:16 AM CDT DTL Blood (Blood, Venous) 04/27/2024 8:42 AM CDT 04/27/2024 9:24 AM CDT Hugo Sanchez M.D. LAB BLOOD ADD-ON Performing Organization Address City/[facility]/ZIP Co de Phone Number [facility] [address] [place] [address] * CBC with Differential, Blood (04/27/2024 8:42 [...] CDT Hugo Sanchez M.D. LAB BLOOD ADD-ON [facility] [address] [place] [address], [facility] DTL [facility] [address] [place] [address] [facility] [address] [place] [address] * (ABNORMAL) Lipid Panel (04/27/2024 8:42 AM [...] CDT Hugo Sanchez M.D. LAB BLOOD ADD-ON [facility] [address] [place] [address], [place] [facility] [address] [place] [address] * BUN (Blood Urea Nitrogen) (04/27/2024 8:42 AM CDT) BUN (Blood Urea Nitrogen), S 19 6 - 21 mg/dL 04/27/2024 10:16 AM CDT DTL Blood (Blood, Venous) 04/27/2024 8:42 AM CDT 04/27/2024 9:24 AM CDT Hugo Sanchez M.D. LAB BLOOD ADD-ON Performing Organization Address City/[facility]/ZIP Co de Phone Number [facility] [address] [place] [address], [facility] [address] [place] [address] * AST (Aspartate Aminotransferase) (04/27/2024 8:42 AM CDT) Aspartate Aminotransferase (AST), S 18 8 - 43 U/L 04/27/2024 10:16 AM CDT DTL Blood (Blood, Venous) 04/27/2024 8:42 AM CDT 04/27/2024 9:24 AM CDT Hugo Sanchez M.D. LAB BLOOD ADD-ON Performing Organization Address [facility] Co de Phone Number [facility] [address] [place] [address], [facility] [address] [place] [address] * Glucose, Fasting (04/27/2024 8:42 AM CDT) Glucose, P 92 70 - 100 mg/dL 04/27/2024 9:59 AM CDT DTL Last Intake 15 hr 04/27/2024 9:22 AM CDT DTL Blood (Blood, Venous) 04/27/2024 8:42 AM CDT 04/27/2024 9:22 AM CDT Hugo Sanchez M.D. LAB BLOOD NON ADD-ON [facility] [address] [place], [place] [address] [address] [place] [address] * Sodium (04/27/2024 8:42 AM CDT) Sodium, S 141 135 - 145 mmol/L 04/27/2024 10:16 AM CDT DTL Blood (Blood, Venous) 04/27/2024 8:42 AM CDT 04/27/2024 9:24 AM CDT Hugo Sanchez M.D. LAB BLOOD ADD-ON Performing Organization Address City/[facility] Co de Phone Number [facility] [address] [place], [place] [phone] [address] documented in this encounter Visit Diagnoses Diagnosis Failure Heart (HCC)- Primary Failure Heart (HCC) Failure Heart (HCC) Thrombosis Deep Vein Personal History- Primary Fpc (Current) Anticoagulant Treatment Monitoring For Therapeutic Drug Therapy Atrial Fibrillation Paroxysmal (HCC) documented in this encounter Additional Health Concerns Assessment Noted Time PHQ-9 Depression Total Score: 3 10/27/20 23 8:30 PM CAGE OPERATOR documented as of this encounter Care Teams Ear Specialist Relationship Specialty Start Date End Date Emilia Lincoln M.D. [address] [place] [phone] PCP - General Family Medicine 08/13/23 documented as of this encounter
--- OUTSIDE RECORDS SUMMARY | 2024-05-08 13:45 | XMS_ITS | Encounter Summary ---
Author Organization [facility] Address [address] [place] [address] Care Team Providers Care Electro Winning Operator Name Role Phone Emilia Lincoln M.D. Primary Care Provider +1- [phone] Reason for Visit * Reason Comments Med Refill Encounter Details Date Type Department Care Team (Late st Contact Info) Description 03/01/2024 Refill Department of Cardiovascular Medicine in [place], [place] [address] [place] [phone] Guru Cruz M.D. [address] [place] [phone] Med Refill Social History Tobacco Use Types [...] How often do you attend chur or synagogue services? More than 4 times per year 02/25/2022 Do you belong to any clubs o r organizations such as judaism groups, unions, fraternal or athletic groups, or [...] Answer Date Recorded PHQ-2 Score 2 10/27/2023 [facility] of Occupat ional Health - Occupational [...] degree you have received? Master's degree (e.g., JEAN CLAUDE, MS, Tacho, MEd, TOURING PRODUCTION MANAGER, EARLE) 06/27/2019 Sex and Gender Information Value Date Recorded Sex Assigned at Female 11/24/2017 7:34 PM ADULT FAMILY HOME PROGRAM MANAGER Gender Identity Female 05/03/2021 11:34 AM CDT Sexual Orientation Straight 05/03/2021 11 :34 AM CDT documented as of this encounter Miscellaneous Notes * Telephone Encounter - Lani Fabian - 03/01/2024 3:28 PM CDT Pharmacy called and asked that the Jardiance be for 100 day. Lani WILKINS [phone] documented in this encounter Plan of Treatment Upcoming Encounters Date Type Department Care Team (Latest Contact Info) Description 05/08/2024 2:00 PM CDT Anticoagulation Visit Department of Anticoagulation in [place], [place] [address] [place] [phone] Emilia Lincoln M.D. [address] [place] [phone] Thrombosis Deep Vein Personal History (Primary Dx); Longterm (Current) Anticoagulant Treatment; Monitoring For Therapeutic Drug Therapy; Atrial Fibrillation Paroxysmal (HCC) 05/25/2024 3:30 PM CDT Office Visit [facility] in [place], [place] [address] [place] [phone] Silvino Pineda D.O., M.S. [address] [place] [phone] 2024 8:15 AM CDT Anticoagulation Visit Department of Anticoagulation in [address] [phone] Emilia Lincoln M.D. [address] [place] [phone] documented as of this encounter Visit Diagnoses Not on filedocumented in this encounter Additional Health Concerns Assessment Noted Time PHQ-9 Depression Total Score: 3 10/27/20 23 8:30 PM ADULT FAMILY HOME PROGRAM MANAGER documented as of this encounter Care Teams Electro Winning Operator Relationship Specialty Start Date End Date Emilia Lincoln M.D. [address] [place] [phone] PCP - General Family Medicine 08/13/23 documented as of this encounter
--- OUTSIDE RECORDS SUMMARY | 2024-05-08 13:45 | XMS_ITS | Encounter Summary ---
Author Organization [facility] Address [address] [place] [address] Care Team Providers Care Electronic Organ Technician Name Role Phone Emilia Lincoln M.D. Primary Care Provider +1- [phone] Reason for Visit * Reason Comments Insomnia CBTI * Outpatient (Routine) - Closed Specialty Diagnoses / Procedures Referred By Evie t Referred To Contact Sleep Medicine Andrews Ko M.B. [address] [place] [phone] [facility] Referral ID Status Reason Start Date Expiration Date Visits Re quested Visits Authorized [id number] Closed 11/11/2023 11/10/2026 1 1 Encounter Details Date Type Department Care Team (Late st Contact Info) Description 03/21/2024 2:45 PM CDT Telemedicine [facility] in [place], [place] [address] [place] [address] [phone] Andrews Ko M.B. [address] [place] [address] [phone] Sandra Posey R.N. [address] [place] [phone] Insomnia (Primary Dx) Social History Tobacco Use Types Packs/Day Years [...] week 02/25/2022 How often do you attend [facility] or congregation services? More than 4 times per year 02/25/2022 Do you belong to any clubs o r organizations such as rastafarian groups, unions, fraternal or athletic groups, or [...] Answer Date Recorded PHQ-2 Score 2 10/27/2023 [facility] - Occupational Stress Questionnaire Answer Date [...] Master's degree (e.g., MA, MS, Tacho, MEd, OFFAL WORKER, EARLE) 06/27/2019 Sex and Gender Information Value Date Recorded Sex Assigned at Female 11/24/2017 7:34 PM DENTAL OFFICE COORDINATOR Gender Identity Female 05/03/2021 11:34 AM CDT Sexual Orientation Straight 05/03/2021 11 :34 AM CDT documented as of this encounter Progress Notes * Sandra Posey R.N. - 03/21/2024 2:45 PM CDT Consult conducted via real-time audio/video technology by Sandra Moore R.N. in [facility] to the patient in Patient's Home REASON FOR VISIT Alivia Coleman presents today for Individual Cognitive Behavioral Therapy for Insomnia (CBT-I)visit. No new sleep related history is noted during today's visit. OBJECTIVE Dysfunctional Beliefs and Attitudes About Sleep (STEAM BONE PRESS TENDER) score : 7.25 The STEAM BONE PRESS TENDER scores beliefs you have about sleep that may be counterproductive to you getting good rest. The closer your average score is to 10, the higher chance you have developed negative beliefs about your sleep. Restructuring these may help. Insomnia Severity Index (ROBERT) score: 22 The ROBERT measures the severity of your insomnia. 0-7 = No clinically significant insomnia 8-14= mild insomnia 15-21= moderately severe insomnia 22-28= severe insomnia ASSESSMENT/PLAN Alivia Coleman was an active participant in today's session and was able to teach back concepts reviewed. Patient education provided. See Education Activity for detail. All patient questions answered. Alivia Coleman is most interested in the following techniques: relaxation techniques-using a sleep magdy, taking a shower in the evening; establishing a regular bed/wake schedule and setting an alarm in the morning; taking time in the evenings to make a list of things to do, turn off handheld electronics 60-90 minutes prior to bedtime. Establishing usage of PAP therapy. Follow up is recommended for the follow up visit in the [facility] on an as needed basis. documented in this encounter Plan of Treatment Upcoming Encounters Date Type Department Care Team (Latest Contact Info) Description 05/08/2024 2:00 PM CDT Anticoagulation Visit Department of Anticoagulation in [place], [place] [address] [place] [phone] Emilia Lincoln M.D. [address] [place] [address] [phone] Thrombosis Deep Vein Personal History (Primary Dx); Senior Care (Current) Anticoagulant Treatment; Monitoring For Therapeutic Drug Therapy; Atrial Fibrillation Paroxysmal (HCC) 05/25/2024 3:30 PM CDT Office Visit [facility] in [place], [place] [address] [place] [address] Silvino Pineda D.O., M.S. [address] [place] [phone] 2024 8:15 AM CDT Anticoagulation Visit Department of Anticoagulation in [place], [place] [address] [place] [phone] Emilia Lincoln M.D. [address] [place] [address] [phone] documented as of this encounter Visit Diagnoses Diagnosis Insomnia- Primary Thrombosis Deep Vein Personal History- Primary Senior Care (Current) Anticoagulant Treatment Monitoring For Therapeutic Drug Therapy Atrial Fibrillation Paroxysmal (HCC) documented in this encounter Additional Health Concerns Assessment Noted Time PHQ-9 Depression Total Score: 3 10/27/20 23 8:30 PM DENTAL OFFICE COORDINATOR documented as of this encounter Care Teams Electronic Organ Technician Relationship Specialty Start Date End Date Emilia Lincoln M.D. [address] [place] [address] [phone] PCP - General Family Medicine 08/13/23 documented as of this encounter
--- OUTSIDE RECORDS SUMMARY | 2024-05-08 13:45 | XMS_ITS | Encounter Summary ---
Author Organization [facility] Address [address] [place] [address] Care Team Providers Care Utilization Coordinator Name Role Phone Emilia Lincoln M.D. Primary Care Provider +1- [phone] Reason for Visit * Reason Onset Date Comments Anticoagulation 03/20/2024 Home INR-machine left at other house Encounter Details Date Type Department Care Team (Latest Contact Info) Description 03/20/2024 Clinical Communication Department of Anticoagulation in [place], [place] [address] [place] [phone] Magda Banks, R.N. [address] [place] [phone] Anticoagulation (Home INR-machine left at other house) Social History Tobacco Use Types Packs/Day Years [...] How often do you attend chur or restorationist services? More than 4 times per year 02/25/2022 Do you belong to any clubs o r organizations such as holiness groups, unions, fraternal or athletic groups, or [...] Answer Date Recorded PHQ-2 Score 2 10/27/2023 [facility] - Occupational Stress [...] your living situation today? I have a [facility] place to live 05/26/2023 Education Answer Date Recorded What is the highest level of school you have completed or the highest degree you have received? Master's degree (e.g., MA, MS, Tacho, MEd, DOG WALKER, EARLE) 06/27/2019 Sex and Gender Information Value Date Recorded Sex Assigned at Female 11/24/2017 7:34 PM DEVELOPMENT EXPERT Gender Identity Female 05/03/2021 11:34 AM CDT Sexual Orientation Straight 05/03/2021 11 :34 AM CDT documented as of this encounter Miscellaneous Notes * Telephone Encounter - Magda Banks R.N. - 03/20/2024 11:07 AM CDT Patient called in to report she had left her Home INR at her other house in [place]. Her used toself test so she attempted to use his old machine. Code Error 3 showed up & patient is wondering if she can get strips for his machine. Advised patient to attempt to get her machine mailed to her. We can schedule an INR at the lab if needed until she has her own machine back. documented in this encounter Plan of Treatment Upcoming Encounters Date Type Department Care Team (Latest Contact Info) Description 05/08/2024 2:00 PM CDT Anticoagulation Visit Department of Anticoagulation in [place], [place] [address] [place] [address] Emilia Lincoln M.D. [address] [place] [phone] Thrombosis Deep Vein Personal History (Primary Dx); Shelter (Current) Anticoagulant Treatment; Monitoring For Therapeutic Drug Therapy; Atrial Fibrillation Paroxysmal (HCC) 05/25/2024 3:30 PM CDT Office Visit [facility] in [place], [place] [address] [place] [phone] Silvino Pineda D.O., M.S. [address] [place] [phone] 2024 8:15 AM CDT Anticoagulation Visit Department of Anticoagulation in [place], [place] [address] [place] [phone] Emilia Lincoln M.D. [address] [place] [phone] documented as of this encounter Visit Diagnoses Not on filedocumented in this encounter Additional Health Concerns Assessment Noted Time PHQ-9 Depression Total Score: 3 10/27/20 23 8:30 PM DEVELOPMENT EXPERT documented as of this encounter Care Teams Utilization Coordinator Relationship Specialty Start Date End Date Emilia Lincoln M.D. [address] [place] [phone] PCP - General Family Medicine 08/13/23 documented as of this encounter
--- OUTSIDE RECORDS SUMMARY | 2024-05-08 13:45 | XMS_ITS | Encounter Summary ---
Author Organization [facility] Address [address] [place] [address] Care Team Providers Care Potash Flaker Name Role Phone Emilia Lincoln M.D. Primary Care Provider +1- [phone] Reason for Referral * Outpatient (Routine) - Closed Specialty Diagnoses / Procedures Referred By Evie saxena Referred To Contact Anticoagulation Emilia Lincoln M.D. 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 [address] [phone] [facility] Referral ID Status Reason Start Date Expiration Date Visits Re quested Visits Authorized [id number] Closed 01/24/2024 07/25/2025 1 1 Encounter Details Date Type Department Care Team (Latest Contact Info) Description 02/21/2024 1:30 PM CDT Anticoagulation Visit Department of Anticoagulation in [place], [place] [address] [place] [address] Emilia Lincoln M.D. [address] [place] [phone] Atrial Fibrillation Paroxysmal (HCC); Half-Way (Current) Anticoagulant Treatment; Monitoring For Therapeutic Drug Therapy; Thrombosis Deep Vein Personal History Social History Tobacco Use Types Packs/Day Years [...] often do you attend chur ch or tenriism services? More than 4 times per year 02/25/2022 Do you belong to any clubs o r organizations such as quaker groups, unions, fraternal or athletic groups, or [...] Answer Date Recorded PHQ-2 Score 2 10/27/2023 [facility] - Occupational Stress Questionnaire Answer Date Recorded [...] Master's degree (e.g., MA, MS, Tacho, MEd, BRIM EDGE TRIMMER, EARLE) 06/27/2019 Sex and Gender Information Value Date Recorded Sex Assigned at Female 11/24/2017 7:34 PM ALLIANCE DIRECTOR Gender Identity Female 05/03/2021 11:34 AM CDT Sexual Orientation Straight 05/03/2021 11 :34 AM CDT documented as of this encounter Patient Instructions * Patient Instructions* Tori Dias, BertaN. - 02/21/2024 1:30 PM CDT The day before your next INR review you will receive a message via Patient [employer] Service (portal) asking you to report your [...] please call Primary Care Anticoagulation Program at [phone] from 7:30 am to 4:30 pm. Wednesday-Wednesday [...] if you start any herbal or other bmud-lrq-dycauxr product (check with your doctor, a nurse, or pharmacist). If you change your diet significantly. If you decide to stop or start using tobacco or alcohol. If you notice unusual bruising or bleeding. If you notice dark, tarry, or bright red stools or blood in your urine. If you have a painful and swollen calf. documented in this encounter Progress Notes * Tori Dias R.N. - 02/21/2024 1:30 PM CDT Warfarin Maintenance Nursing Protocol Goal Range 2.0-3.0 (version approved 12/2021) Visit Type: Telephone and Home/Self Test INR Primary reason for visit: Home INR Monthly INR review Information provided by:patient INR result: 2.9 Goal range: 2.0-3.0 Inclusion Criteria: All inclusion [...] dose. Currently bridging? no. Next INR in 7-28 days. per positive screening criteria. Additional dosing [...] CDT Anticoagulation Visit Department of Anticoagulation in [place], [place] [address] [place] [phone] Emilia Lincoln M.D. [address] [place] [phone] Thrombosis Deep Vein Personal History (Primary Dx); Half-Way (Current) Anticoagulant Treatment; Monitoring For Therapeutic Drug Therapy; Atrial Fibrillation Paroxysmal (HCC) 05/25/2024 3:30 PM CDT Office Visit [facility] in [place], [place] [address] [place] [phone] Silvino Pineda D.O., M.S. [address] [place] [phone] 2024 8:15 AM CDT Anticoagulation Visit Department of Anticoagulation in [place], [place] [address] [place] [phone] Emilia Lincoln M.D. [address] [place] [phone] Scheduled Referrals Name Type Priority Associated Diagnoses Order Schedule Anticoagulation nurse visit (clinic) Outpatient Referral Routine Expected: 03/20/2024, Expires: 05/22/2025 documented as of this encounter Procedures Procedure Name Priority Date/Time Associated Diagnosis Comments PROTHROMBIN TIME (PT), P Routine 02/21/2024 PROTHROMBIN TIME (PT), P Routine 02/14/2024 PROTHROMBIN TIME (PT), P Routine 02/07/2024 PROTHROMBIN TIME (PT), P Routine 01/31/2024 documented in this encounter Results * Prothrombin Time (PT) (02/21/2024) EXT INR 2.90 PATIENT PO INT OF CARE DEVICE Comment:home inr Blood (Blood, Venous) Historical Provider LAB BLOOD ADD-ON Performing Organization Address City/State/[facility] Co de Phone Number PATIENT POINT OF CARE DEVICE * Prothrombin Time (PT) (02/14/2024) EXT INR 2.40 PATIENT PO INT OF CARE DEVICE Comment:home inr Blood (Blood, Venous) Historical Provider LAB BLOOD ADD-ON Performing Organization Address [facility] Co de Phone Number PATIENT POINT OF CARE DEVICE * Prothrombin Time (PT) (02/07/2024) EXT INR 2.60 PATIENT PO INT OF CARE DEVICE Comment:home inr Blood (Blood, Venous) Historical Provider LAB BLOOD ADD-ON Performing Organization Address City/[facility] Co de Phone Number PATIENT POINT OF CARE DEVICE * Prothrombin Time (PT) (01/31/2024) EXT INR 2.50 PATIENT PO INT OF CARE DEVICE Comment:home inr Blood (Blood, Venous) Historical Provider LAB BLOOD ADD-ON Performing Organization Address [facility] Co de Phone Number PATIENT POINT OF CARE DEVICE documented in this encounter Visit Diagnoses Diagnosis Atrial Fibrillation Paroxysmal (HCC) Electronic Engineering 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 [address] [phone] PCP - General Family Medicine 08/13/23 documented as of this encounter
--- OUTSIDE RECORDS SUMMARY | 2024-05-08 13:45 | XMS_ITS | Encounter Summary ---
Author Organization [facility] Address [address] [place] [address] Care Team Providers Care Ciaio Lumite Injector Name Role Phone Emilia Lincoln M.D. Primary Care Provider +1- [phone] Reason for Visit * Reason Comments Med Refill Encounter Details Date Type Department Care Team (Late st Contact Info) Description 02/28/2024 Refill Department of Cardiovascular Medicine in [place], [place] [address] [place] [phone] Guru Cruz M.D. [address] [place] [phone] Med Refill Social History Tobacco Use Types [...] How often do you attend chur or presybeterian services? More than 4 times per year 02/25/2022 Do you belong to any clubs o r organizations such as orthodoxy groups, unions, fraternal or athletic groups, or [...] your living situation today? I have a [facility] place to live 05/26/2023 Education Answer Date Recorded What is the highest level of school you have completed or the highest degree you have received? Master's degree (e.g., MA, MS, Tacho, MEd, FLANGING OPERATOR, EARLE) 06/27/2019 Sex and Gender Information Value Date Recorded Sex Assigned at Female 11/24/2017 7:34 PM UNIFORM PATROL POLICE OFFICER Gender Identity Female 05/03/2021 11:34 AM CDT Sexual Orientation Straight 05/03/2021 11 :34 AM CDT documented as of this encounter Miscellaneous Notes * Telephone Encounter - Guru Cruz M.D. - 02/29/2024 9:56 AM CDT To be monitored by her primary Cardiology service, this was initiated during a consultation in Pulmonary Hypertension, she will require frequent monitoring of response and adverse effects. Thanks documented in this encounter Plan of Treatment Upcoming Encounters Date Type Department Care Team (Latest Contact Info) Description 05/08/2024 2:00 PM CDT Anticoagulation Visit Department of Anticoagulation in [place], [place] [address] [place] [phone] Emilia Lincoln M.D. 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 [address] [place] [phone] 2024 8:15 AM CDT Anticoagulation Visit Department of Anticoagulation in [place], [place] [address] [place] [phone] Emilia Lincoln M.D. [address] [place] [phone] documented as of this encounter Visit Diagnoses Not on filedocumented in this encounter Additional Health Concerns Assessment Noted Time PHQ-9 Depression Total Score: 3 10/27/20 23 8:30 PM UNIFORM PATROL POLICE OFFICER documented as of this encounter Care Teams Ciaio Lumite Injector Relationship Specialty Start Date End Date Emilia Lincoln M.D. [address] [place] [phone] PCP - General Family Medicine 08/13/23 documented as of this encounter
--- OUTSIDE RECORDS SUMMARY | 2024-05-08 13:45 | XMS_ITS | Encounter Summary ---
Author Organization [facility] Address [address] [place] [address] Care Team Providers Care Home Planning Consultant Salesperson Name Role Phone Emilia Lincoln M.D. Primary Care Provider +1- [phone] Reason for Visit * Reason Onset Date Comments Anticoagulation 01/24/2024 [facility] Enrollment Encounter Details Date Type Department Care Team (Latest Contact Info) Description 01/24/2024 Clinical Communication Department of Anticoagulation in [place], [place] [address] [place] [phone] Diane Marie, R.N. [address] [place] [phone] Anticoagulation ([facility] Enrollment) Social History Tobacco Use Types Packs/Day Years [...] week 02/25/2022 How often do you attend [facility] or pentecostalism services? More than 4 times per year 02/25/2022 Do you belong to any clubs o r organizations such as adventist groups, unions, fraternal or athletic groups, or [...] Answer Date Recorded PHQ-2 Score 2 10/27/2023 [facility] of Occupat ional Health - Occupational [...] your living situation today? I have a [facility] place to live 05/26/2023 Education Answer Date Recorded What is the highest level of school you have completed or the highest degree you have received? Master's degree (e.g., MA, MS, Tacho, MEd, CONTROL SYSTEMS DRAFTING OFFICER, EARLE) 06/27/2019 Sex and Gender Information Value Date Recorded Sex Assigned at Female 11/24/2017 7:34 PM CLINICAL CYTOPATHOLOGIST Gender Identity Female 05/03/2021 11:34 AM CDT Sexual Orientation Straight 05/03/2021 11 :34 AM CDT documented as of this encounter Miscellaneous Notes * Telephone Encounter - Diane Marie, R.N. - 01/24/2024 2:24 PM CDT Consent for Chronic Care Management (CCM) requiring moderate or high complexity medical decision making. was obtained from the patient/patient's medical power of employment law attorney. The patient/patient's medical power of employment law attorney was informed that a charge, based on the level of service, will be billed to their insurance each month. Only one health care provider can provide these services at a time. Patients have the right to stop these services at any time by letting their care team know. The patient/patient's medical power of employment law attorney can contact their insurance company if they have any questions on coverage or [facility] Patient Account Services if they have any questions about their bill. documented in this encounter Plan of Treatment Upcoming Encounters Date Type Department Care Team (Latest Contact Info) Description 05/08/2024 2:00 PM CDT Anticoagulation Visit Department of Anticoagulation in [address] [phone] Emilia Lincoln M.D. [address] [place] [phone] Thrombosis Deep Vein Personal History (Primary Dx); Snf (Current) Anticoagulant Treatment; Monitoring For Therapeutic Drug Therapy; Atrial Fibrillation Paroxysmal (HCC) 05/25/2024 3:30 PM CDT Office Visit Center for [facility] in [address] [phone] Silvino Pineda D.O., M.S. [address] [place] [phone] 2024 8:15 AM CDT Anticoagulation Visit Department of Anticoagulation in [address] [phone] Emilia Lincoln M.D. 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 [address] [place] [phone] PCP - General Family Medicine 08/13/23 documented as of this encounter
--- OUTSIDE RECORDS SUMMARY | 2024-05-08 13:45 | XMS_ITS | Encounter Summary ---
Author Organization [facility] Address [address] [place] [address] Care Team Providers Care Extrusion Engineer Name Role Phone Emilia Lincoln M.D. Primary Care Provider [phone] Reason for Visit * Reason Onset Date Comments Echo Move Up Request 02/21/2024 Encounter Details Date Type Department Care Team (Latest Contact Info) Description 02/21/2024 Clinical Communication Department of Cardiovascular Medicine in [place], [place] [address] [place] [address] Dyer HelperHi M.D. Echo Move Up Request Social History Tobacco Use Types Packs/Day Years [...] often do you attend chur ch or mosque services? More than 4 times per year 02/25/2022 Do you belong to any clubs o r organizations such as pentecostal groups, unions, fraternal or athletic groups, or [...] Answer Date Recorded PHQ-2 Score 2 10/27/2023 [facility] [place] [facility] Answer Date [...] your living situation today? [facility] 05/26/2023 Education Answer Date Recorded What is the highest level of school you have completed or the highest degree you have received? Master's degree (e.g., MA, MS, Tacho, MEd, [employer], [employer]) 06/27/2019 Sex and Gender Information Value Date Recorded Sex Assigned at Female 11/24/2017 7:34 PM REHABILITATION ASSISTANT Gender Identity Female 05/03/2021 11:34 AM CDT Sexual Orientation Straight 05/03/2021 11 :34 AM CDT documented as of this encounter Miscellaneous Notes * Telephone Encounter - Jacquie Dela Cruz - 02/21/2024 2:28 PM CDT ECHO MOVE UP REQUEST If there is any additional information please add it to the bottom. (I.E. provider request, nursingrequest, etc.) Please use for all requests starting March 15 and after Appt Type: EST : 04/27/24 10:40 am, 12:40 pm, or 2:00 pm When does the provider see (date and time)?: 04/27/24 4:00 Are there times that do not work for pt?: No Is testing flexible to accommodate the echo?: Yes Pool for replies: P RST CVD HF PH SCHEDULING documented in this encounter Plan of Treatment Upcoming Encounters Date Type Department Care Team (Latest Contact Info) Description 05/08/2024 2:00 PM CDT Anticoagulation Visit Department of Anticoagulation in [place], [place] [address] [place] [address] Emilia Lincoln M.D. 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 [address] [place] [phone] 2024 8:15 AM CDT Anticoagulation Visit Department of Anticoagulation in [place], [place] [address] [place] [phone] Emilia Lincoln M.D. [address] [place] [phone] documented as of this encounter Visit Diagnoses Not on filedocumented in this encounter Additional Health Concerns Assessment Noted Time PHQ-9 Depression Total Score: 3 10/27/20 23 8:30 PM REHABILITATION ASSISTANT documented as of this encounter Care Teams Extrusion Engineer Relationship Specialty Start Date End Date Emilia Lincoln M.D. [address] [place] [phone] PCP - General Family Medicine 08/13/23 documented as of this encounter
== END 2024-05-08 13:29 | disposition home or self-care (01) ==
PROVIDERS: PCP Nurse Practitioner Family; Visit Provider Nurse Practitioner Family
DX: R06.09 Other forms of dyspnea (principal); R53.83 Other fatigue
CPT/HCPCS: 80053; 83540; 83550; 83880; 84443; 84484; 85025

== ENCOUNTER 2024-05-22 11:25 | Outpatient (CLI) | payer MEDICARE, SELFPAY ==
--- NOTE | 2024-05-22 12:26 | W.ANESCHARGE ---
Anesthesia Charges Start Date/Time Anesthesia Start Date: 05/22/24 Anesthesia Start Time: 13:05 Stop Date/Time Anesthesia Stop Date: 05/22/24 Anesthesia Stop Time: 13:47 Summary Extremes of Age - Over 70 or under 1: MDA
--- NOTE | 2024-05-22 13:51 | W.ANESCHARGE ---
Anesthesia Charges Start Date/Time Anesthesia Start Date: 05/22/24 Anesthesia Start Time: 13:05 Stop Date/Time Anesthesia Stop Date: 05/22/24 Anesthesia Stop Time: 13:47
== END 2024-05-22 11:26 | disposition home or self-care (01) ==
LOC: OP CLINIC 11:25
PROVIDERS: PCP Nurse Practitioner Family; Visit Provider Surgery
DX: D50.0 Iron deficiency anemia secondary to blood loss (chronic) (principal); K44.9 Diaphragmatic hernia without obstruction or gangrene; K31.89 Other diseases of stomach and duodenum
CPT/HCPCS: 00813; 43239; 45378; 88305; 99100; J2704

== ENCOUNTER 2024-08-10 09:14 | Outpatient (CLI) | payer MEDICARE, SELFPAY ==
--- NOTE | 2024-08-10 09:15 | CRLHL7_ITS ---
For Patients: As a result of the Century Cures Act, medical imaging exams and procedure reports are released immediately into your electronic medical record. You may view this report before your referring provider. If you have questions, please contact your health care provider. BILATERAL DIGITAL SCREENING MAMMOGRAM WITH COMPUTER-AIDED DETECTION AND TOMOSYNTHESIS CLINICAL HISTORY: Routine screening exam. COMPARISON: 08/23/2023. TECHNIQUE: Digital mammogram in CC and MLO projections including computer-aided detection (CAD). Tomosynthesis was used in this interpretation. BREAST COMPOSITION: There are scattered areas of fibroglandular density. FINDINGS: RIGHT Breast: Focal nodular density upper outer quadrant 2 cm from the nipple. LEFT Breast: No suspicious findings. IMPRESSION: RIGHT breast asymmetry/mass. RECOMMENDATIONS: Additional mammographic views of the RIGHT breast including 3D spot compression CC/MLO. RIGHT breast ultrasound may also be required. BI-RADS Category 0: Incomplete: Need Additional Imaging Evaluation and/or Prior Mammograms for Comparison [facility] will contact the patient for follow-up. A lay language report of this examination will be provided to the patient. Dictated by Jerardo Zarate MD @ 08/15/2024 8:50:14 AM jj/Dictated by: Jerardo Zarate MD @ 08/15/2024 8:50:00 AM (Electronically Signed)
--- OUTSIDE RECORDS SUMMARY | 2024-08-10 09:17 | XMS_ITS | Clinical Summary ---
Author Organization [facility] Address [place], [place] [address] [address] Care Team Prov[address] Mechanical Engineer Name Role Phone Telly Gaines Primary Care Provider [phone] Allergies Active Allergy Reactions Criticality Noted Date Comments Iodinated Contrast Media Anaphylaxis High 01/28/2010 Latex Hives 01/28/2010 Metoclopramide Dyspnea 01/16/2014 Tramadol Syncope 07/25/2018 passed out Encounters Date Type Department Care Team Description 05/22/2024 Lab Requisition [facility] [phone] Cielo Armendariz MD from Last 3 Months Social History Tobacco Use Types Packs/Day Years [...] 65+ (1 of 1 - PCV) 2012 RSV vaccine for adults or (1 - 1-dose 75+ series) 2022 COVID-19 vaccine series ( season) 2024 04/06/2022, 08/27/2021, 01/15/2021, Additional history exists Influenza for age 65+ 07/16/2024 Procedures Procedure Name Priority Date/Time Associated Diagnosis Comments LAB TRACKING EVENT Routine 05/22/2024 1: 15 PM CDT PATH TISSUE EXAM Routine 05/22/2024 1:15 PM CDT from Last 3 Months Results * LAB TRACKING EVENT (05/22/2024 1:15 PM CDT) Other (Other) Client Collect / Unknown 05/22/2024 1:15 PM CDT 05/22/2024 9:54 PM CDT Cielo Armendariz MD LAB BILL ONLY [facility] [address] [place] [address], * PATH TISSUE EXAM (05/22/2024 1:15 PM CDT) Case Report Pathology Report ?Case: [id number] ? Authorizing Provider: ??Cielo Armendariz MD ??Collected: ? 05/22/2024 1315 ? Ordering Location: ? [facility] ?Received: ?05/23/2024 0748 ? Pathologist: ? Vin Jiménez, ? MD ? Specimen: ?Gastric Biopsy ? 05/24/2024 10:24 AM [facility] Final Diagnosis A) STOMACH, CARDIA, BIOPSY: 1. Normal gastric cardia-type and fundic mucosa 2. Negative for inflammation, Helicobacter and atrophy 05/24/2024 10:24 AM [facility] [employer] [facility] Clinical Information Suspected upper GI bleeding in patient with chronic blood loss. Upper endoscopy demonstrates a 5 cm hiatal hernia and friable gastric mucosa. 05/24/2024 10:24 AM [facility] Gross Description A) Received in formalin are 4 horton mucosal fragments ranging from 1 mm to 3 mm in greatest dimension, which are entirely submitted in one cassette. It is labeled with the patient's name and designated stomach-Cardia . Katty Mcclure 05/23/2024 1:38 PM 05/24/2024 10:24 AM [facility] [employer] [facility] Microscopic Description The final diagnosis is based on microscopic examination of appropriate sections of all specimens. 05/24/2024 10:24 AM CDT [facility] Additional Information Interpreted at [facility], Central Laboratory - [address], [place] [address] 05/24/2024 10:24 AM CDT [facility] Other GASTRIC BIOPSY SPECIMEN / Unknown 05/22/2024 1:15 PM CDT 05/23/2024 7:48 AM CDT Cielo Armendariz MD PATHOLOGY/CYTOLO GY [facility] [address] [place] [address], from Last [address] Mechanical Engineer Relationship Specialty Start Date End Date Telly Gaines [address] [place] [phone] PCP - General 07/11/14
--- OUTSIDE RECORDS SUMMARY | 2024-08-10 09:22 | XMS_ITS | Continuity of Care Document ---
Author Organization [facility] Address [address] [place] [address] Care Team Providers Care Zmt Operator Name Role Phone Emilia Lincoln M.D. Primary Care Provider [phone] Source Comments Patient records contain information from all sites at [facility]. For routine questions regarding patient records, call [phone] during business hours, M-F 8:00 AM - 5:00 PM Central Time. Record requests for emergency care only can be directed to [phone] at any time.[facility] Encounters Date Type Department Care Team Description 4 Clinical Communication Department of Cardiovascular Medicine in [place], [place] [address] [place] [phone] Prescheduling, Provider Procedure Request (Ablation) 4 9:45 AM CDT Anticoagulation Visit Department of Anticoagulation in [place], [place] [address] [place] [phone] Emilia Lincoln M.D. Thrombosis Deep Vein Personal History; Detention (Current) Anticoagulant Treatment; Monitoring For Therapeutic Drug Therapy; Atrial Fibrillation Paroxysmal (HCC) 4 10:45 AM CDT Anticoagulation Visit Department of Anticoagulation in [place], [place] [address] [place] [phone] Emilia Lincoln M.D. Thrombosis Deep Vein Personal History (Primary Dx); Garment Sorter (Current) Anticoagulant Treatment; Monitoring For Therapeutic Drug Therapy; Atrial Fibrillation Paroxysmal (HCC) 4 11:00 AM CDT Office Visit Department of Cardiovascular Medicine in [address] [phone] Ap Buckley M.D., Ph.D. Obesity Body Mass Index 30-39.9 Adult (Primary Dx); Atrial Fibrillation Paroxysmal (HCC) 4 2:20 PM CDT - 4 11:59 PM CDT Hospital Encounter Department of Cardiovascular Diseases in [address] [address] Ap Buckley M.D., Ph.D. Atrial Fibrillation Paroxysmal (HCC) Discharge Disposition: Home or Self Care 4 11:45 AM CDT Clinical Communication Virtual Review in [address] [phone] Pre-visit Intake 4 8:15 AM CDT Anticoagulation Visit Department of Anticoagulation in [address] [address] Emilia Lincoln M.D. Thrombosis Deep Vein Personal History; Detention (Current) Anticoagulant Treatment; Monitoring For Therapeutic Drug Therapy; Atrial Fibrillation Paroxysmal (HCC) 4 Orders Only Department of Anticoagulation in [address] [phone] Jacquie Chavis R.N. Thrombosis Deep Vein Personal History (Primary Dx); Garment Sorter (Current) Anticoagulant Treatment; Monitoring For Therapeutic Drug Therapy; Atrial Fibrillation Paroxysmal (HCC) 4 3:00 PM CDT Anticoagulation Visit Department of Anticoagulation in [address] [address] Emilia Lincoln M.D. Thrombosis Deep Vein Personal History (Primary Dx); Detention (Current) Anticoagulant Treatment; Monitoring For Therapeutic Drug Therapy; Atrial Fibrillation Paroxysmal (HCC) 4 8:15 AM CDT Anticoagulation Visit Department of Anticoagulation in [address] [address] Emilia Lincoln M.D. Thrombosis Deep Vein Personal History (Primary Dx); Detention (Current) Anticoagulant Treatment; Monitoring For Therapeutic Drug Therapy; Atrial Fibrillation Paroxysmal (HCC); Gastroesophageal Reflux Disease Without Esophagitis 4 3:30 PM CDT Office Visit [facility] in [place], [place] [address] [place] [phone] Silvino Pineda D.O., M.S. Obstructive Sleep Apnea Adult (Primary Dx) 4 1:15 PM CDT Anticoagulation Visit Department of Anticoagulation in [place], [place] [address] [place] [phone] Emilia Lincoln M.D. Thrombosis Deep Vein Personal History (Primary Dx); Detention (Current) Anticoagulant Treatment; Monitoring For Therapeutic Drug Therapy; Atrial Fibrillation Paroxysmal (HCC) 4 2:00 PM CDT Anticoagulation Visit Department of Anticoagulation in [place], [place] [address] [place] [phone] Emilia Lincoln M.D. Thrombosis Deep Vein Personal History (Primary Dx); Detention (Current) Anticoagulant Treatment; Monitoring For Therapeutic Drug Therapy; Atrial Fibrillation Paroxysmal (HCC) 4 Clinical Communication Department of Anticoagulation in [place], [place] [address] [place] [phone] Yun Lau Anticoagulation (Lack of Engagement) 4 11:11 AM CDT - 4 11:59 PM CDT Hospital Encounter Department of Cardiovascular Diseases in [place], [place] [address] [place] [phone] Hugo Sanchez M.D. Failure Heart (HCC) Discharge Disposition: Home or Self Care 4 9:16 AM CDT - 4 11:10 AM CDT Hospital Encounter Department of Radiology, [facility] in [place], [place] [address] [place] [phone] Hugo Sanchez M.D. Failure Heart (HCC) Discharge Disposition: Home or Self Care 4 8:25 AM CDT - 4 9:15 AM CDT Hospital Encounter Department of Laboratory Medicine and Pathology, [facility] in [place], [place] [address] [place] [phone] Hugo Sanchez M.D. Atrial Fibrillation Paroxysmal (HCC); Failure Heart (HCC) Discharge Disposition: Home or Self Care 4 4:00 PM CDT Office Visit Department of Cardiovascular Medicine in [place], [place] [address] [place] [phone] Hugo Sanchez M.D. Hypertension Essential Primary (Primary Dx); Chronic Diastolic (Congestive) Heart Failure (HCC); Atrial Fibrillation Paroxysmal (HCC); Sleep Apnea; Hyperlipidemia 4 3:00 PM CDT Anticoagulation Visit Department of Anticoagulation in [place], [place] [address] [place] [phone] Emilia Lincoln M.D. Thrombosis Deep Vein Personal History; Detention (Current) Anticoagulant Treatment; Monitoring For Therapeutic Drug Therapy; Atrial Fibrillation Paroxysmal (HCC) 4 Refill Department of Family Medicine, [facility], in [address] [phone] Emilia Lincoln M.D. Med Refill 4 3:00 PM CDT Anticoagulation Visit Department of Anticoagulation in [place], [place] [address] [place] [phone] Emilia Lincoln M.D. Thrombosis Deep Vein Personal History (Primary Dx); Detention (Current) Anticoagulant Treatment; Monitoring For Therapeutic Drug Therapy; Atrial Fibrillation Paroxysmal (HCC) 4 2:18 PM CDT - 4 11:59 PM CDT Hospital Encounter Department of Laboratory Medicine in [address] [phone] Emilia Lincoln M.D. Atrial Fibrillation Paroxysmal (HCC); Detention (Current) Anticoagulant Treatment; Monitoring For Therapeutic Drug Therapy; Thrombosis Deep Vein Personal History Discharge Disposition: Home or Self Care 4 2:45 PM CDT Telemedicine [facility] in [place], [place] [address] [place] [phone] Andrews Ko M.B. Kloos Olson, Kristin E, R.N. Insomnia (Primary Dx) 4 Clinical Communication Department of Anticoagulation in [place], [place] [address] [place] [phone] Magda Banks R.N. Anticoagulation (Home INR-machine left at other house) 4 Refill Department of Cardiovascular Medicine in [place], [place] [address] [place] [phone] Guru Cruz M.D. Med Refill 4 Refill Department of Cardiovascular Medicine in [place], [place] [address] [place] [phone] Guru Cruz M.D. Med Refill 4 Clinical Communication Department of Cardiovascular Medicine in [place], [place] [address] [place] [phone] Engine TurnerHi M.D. Echo Move Up Request 4 Clinical Communication Department of Cardiovascular Medicine in [place], [place] [address] [place] [phone] Hugo Sanchez M.D. 4 1:30 PM CDT Anticoagulation Visit Department of Anticoagulation in [place], [place] [address] [place] [phone] Emilia Lincoln M.D. Atrial Fibrillation Paroxysmal (HCC); Garment Sorter (Current) Anticoagulant Treatment; Monitoring For Therapeutic Drug Therapy; Thrombosis Deep Vein Personal History 4 Clinical Communication Department of Anticoagulation in [place], [place] [address] [place] [phone] Diane Marie R.N. Anticoagulation ([facility] Enrollment) 4 9:15 AM CDT Anticoagulation Visit Department of Anticoagulation in [place], [place] [address] [place] [phone] Emilia Lincoln M.D. Atrial Fibrillation Paroxysmal (HCC); Detention (Current) Anticoagulant Treatment; Monitoring For Therapeutic Drug Therapy; Thrombosis Deep Vein Personal History 4 Orders Only [facility] PCP TH MNT Emilia Lincoln M.D. 4 12:30 PM MASTER CERTIFIED RV TECHNICIAN Clinical Communication Virtual Review in [place], [place] 200 [place] [address] Pre-visit Intake 4 3:00 PM MASTER CERTIFIED RV TECHNICIAN Anticoagulation Visit Department of Anticoagulation in [place], [place] [address] [place] [phone] Telly Gaines M.D. Atrial Fibrillation Paroxysmal (HCC); Garment Sorter (Current) Anticoagulant Treatment; Monitoring For Therapeutic Drug Therapy; Thrombosis Deep Vein Personal History 4 Refill [facility], [facility] in [place], [place] [address] [place] [phone] Hannah Reich APRN, C.N.P., D.N.P. Med Refill 4 11:15 AM MASTER CERTIFIED RV TECHNICIAN Anticoagulation Visit Department of Anticoagulation in [place], [place] [address] [place] [phone] Telly Gaines M.D. Atrial Fibrillation Paroxysmal (HCC) (Primary Dx); Garment Sorter (Current) Anticoagulant Treatment; Monitoring For Therapeutic Drug Therapy; Thrombosis Deep Vein Personal History 4 8:15 AM MASTER CERTIFIED RV TECHNICIAN Anticoagulation Visit Department of Anticoagulation in [place], [place] [address] [place] [phone] Emilia Lincoln M.D. Thrombosis Deep Vein Personal History (Primary Dx); Garment Sorter (Current) Anticoagulant Treatment; Monitoring For Therapeutic Drug Therapy; Atrial Fibrillation Paroxysmal (HCC) 4 10:45 AM MASTER CERTIFIED RV TECHNICIAN Clinical Communication Virtual Review in [place], [place] 200 [place] [address] Previsit Preparation (ROSA ELENA DD) 4 Clinical Communication [facility] in [address] [phone] Andrews Ko M.B. 4 4:00 PM MASTER CERTIFIED RV TECHNICIAN Anticoagulation Visit Department of Anticoagulation in [address] [phone] Telly Gaines M.D. Atrial Fibrillation Paroxysmal (HCC); Garment Sorter (Current) Anticoagulant Treatment; Monitoring For Therapeutic Drug Therapy; Thrombosis Deep Vein Personal History 4 9:30 AM [facility] Telemedicine [facility] in [place], [place] [address] [place] [phone] Andrews Ko M.B. Obstructive Sleep Apnea Adult (Primary Dx) 4 10:45 AM MASTER CERTIFIED RV TECHNICIAN Anticoagulation Visit Department of Anticoagulation in [place], [place] [address] [place] [phone] Telly Gaines M.D. Atrial Fibrillation Paroxysmal (HCC); Detention (Current) Anticoagulant Treatment; Monitoring For Therapeutic Drug Therapy; Thrombosis Deep Vein Personal History 4 9:30 AM MASTER CERTIFIED RV TECHNICIAN Anticoagulation Visit Department of Anticoagulation in [place], [place] [address] [place] [phone] Emilia Lincoln M.D. Thrombosis Deep Vein Personal History (Primary Dx); Garment Sorter (Current) Anticoagulant Treatment; Monitoring For Therapeutic Drug Therapy; Atrial Fibrillation Paroxysmal (HCC) 4 7:30 AM MASTER CERTIFIED RV TECHNICIAN - 4 11:59 PM MASTER CERTIFIED RV TECHNICIAN Hospital Encounter [facility] in [place], [place] [address] [place] [phone] Andrews Ko M.B. Discharge Disposition: Home or Self Care 4 Clinical Communication Department of Cardiovascular Medicine in [place], [place] [address] [place] [phone] Engine TurnerHi M.D. 4 Clinical Communication Department of Cardiovascular Medicine in [place], [place] [address] [place] [phone] Prescheduling, Provider Triage 4 Orders Only [facility] [address] [place] [phone] Fede Palacios M.D. Chronic Diastolic (Congestive) Heart Failure (HCC) (Primary Dx) 4 4:00 PM MASTER CERTIFIED RV TECHNICIAN Anticoagulation Visit Department of Anticoagulation in [place], [place] [address] [place] [address] Telly Gaines M.D. Atrial Fibrillation Paroxysmal (HCC); Detention (Current) Anticoagulant Treatment; Monitoring For Therapeutic Drug Therapy; Thrombosis Deep Vein Personal History 4 Orders Only Department of Cardiovascular Medicine in [place], [place] [address] [place] [phone] Fede Palacios M.D. 4 8:45 AM MASTER CERTIFIED RV TECHNICIAN Anticoagulation Visit Department of Anticoagulation in [place], [place] [address] [place] [phone] Emilia Lincoln M.D. Thrombosis Deep Vein Personal History (Primary Dx); Detention (Current) Anticoagulant Treatment; Monitoring For Therapeutic Drug Therapy; Atrial Fibrillation Paroxysmal (HCC) 3 9:01 AM MASTER CERTIFIED RV TECHNICIAN - 4 11:59 PM MASTER CERTIFIED RV TECHNICIAN Hospital Encounter [facility] in [place], [place] [address] [place] [phone] Andrews Ko M.B. Obstructive Sleep Apnea Adult Discharge Disposition: Home or Self Care 3 2:45 PM MASTER CERTIFIED RV TECHNICIAN Telemedicine [facility] in [place], [place] [address] [place] [phone] Andrews Ko M.B. Obstructive Sleep Apnea Adult (Primary Dx) 3 Clinical Communication [facility] in [place], [place] [address] [place] [phone] Storm Mcgee M.D. 3 9:40 AM MASTER CERTIFIED RV TECHNICIAN - 3 11:59 PM MASTER CERTIFIED RV TECHNICIAN Hospital Encounter Department of Laboratory Medicine in [address] [phone] Fede Palacios M.D. Hypertension Pulmonary (HCC); Anemia Iron Deficiency; Chronic Diastolic (Congestive) Heart Failure (HCC) Discharge Disposition: Home or Self Care 3 Refill Department of Cardiovascular Medicine in [place], [place] [address] [place] [phone] Guru Cruz M.D. Med Refill 3 2:15 PM MASTER CERTIFIED RV TECHNICIAN Infusion Department of Infusion Therapy in [place], [place] [address] [place] [phone] Fede Palacios M.D. Anemia Iron Deficiency (Primary Dx); Anemia Discharge Disposition: Home or Self Care 3 Documentation Department of Cardiovascular Diseases in [place], [place] [address] [place] [phone] Radha Ferrara 3 9:04 AM MASTER CERTIFIED RV TECHNICIAN - 3 11:59 PM MASTER CERTIFIED RV TECHNICIAN Hospital Encounter Department of Cardiac Rehabilitation in [place], [place] [address] [place] [phone] Ap Buckley M.D., Ph.D. Hypertension Pulmonary (HCC) Discharge Disposition: Home or Self Care 3 10:00 AM MASTER CERTIFIED RV TECHNICIAN Comprehensive Visit Department of Cardiovascular Medicine in [place], [place] [address] [place] [phone] Fede Palacios M.D. Anemia Iron Deficiency (Primary Dx); Hypertension Pulmonary (HCC); Chronic Diastolic (Congestive) Heart Failure (HCC) 3 8:00 AM MASTER CERTIFIED RV TECHNICIAN Comprehensive Visit Department of Cardiovascular Medicine in [place], [place] [address] [place] [phone] Ap Buckley M.D., Ph.D. Atrial Fibrillation Unspecified (HCC); Atrial Fibrillation Paroxysmal (HCC) 3 10:45 AM MASTER CERTIFIED RV TECHNICIAN Clinical Communication Virtual Review in [place], [place] 200 [place] [address] Pre-visit Intake 3 1:16 PM MASTER CERTIFIED RV TECHNICIAN - 3 1:35 PM MASTER CERTIFIED RV TECHNICIAN Hospital Encounter Department of Laboratory Medicine and Pathology, [facility] in [place], [place] [address] [place] [phone] Jose A Lewis M.D. Hyperlipidemia; Atrial Fibrillation Unspecified (HCC); Atrial Fibrillation Paroxysmal (HCC); Hypertension Pulmonary (HCC) Discharge Disposition: Home or Self Care 3 1:36 PM MASTER CERTIFIED RV TECHNICIAN - 3 11:59 PM MASTER CERTIFIED RV TECHNICIAN Hospital Encounter Department of Cardiovascular Diseases in [place], [place] [address] [place] [phone] Ap Buckley M.D., Ph.D. Hypertension Pulmonary (HCC) Discharge Disposition: Home or Self Care 3 8:45 AM MASTER CERTIFIED RV TECHNICIAN Anticoagulation Visit Department of Anticoagulation in [place], [place] [address] [place] [phone] Telly Gaines M.D. Thrombosis Deep Vein Personal History (Primary Dx); Garment Sorter (Current) Anticoagulant Treatment; Monitoring For Therapeutic Drug Therapy; Atrial Fibrillation Paroxysmal (HCC) 3 1:15 PM MASTER CERTIFIED RV TECHNICIAN Anticoagulation Visit Department of Anticoagulation in [place], [place] [address] [place] [phone] Telly Gaines M.D. Atrial Fibrillation Paroxysmal (HCC); Detention (Current) Anticoagulant Treatment; Monitoring For Therapeutic Drug Therapy; Thrombosis Deep Vein Personal History 3 10:00 AM MASTER CERTIFIED RV TECHNICIAN Anticoagulation Visit Department of Anticoagulation in [place], [place] [address] [place] [phone] Telly Gaines M.D. Atrial Fibrillation Paroxysmal (HCC); Garment Sorter (Current) Anticoagulant Treatment; Monitoring For Therapeutic Drug Therapy; Thrombosis Deep Vein Personal History 3 Clinical Communication Department of Cardiovascular Medicine in [place], [place] [address] [place] [phone] Engine TurnerHi M.D. 3 9:30 AM MASTER CERTIFIED RV TECHNICIAN Anticoagulation Visit Department of Anticoagulation in [place], [place] [address] [place] [phone] Emilia Lincoln M.D. Thrombosis Deep Vein Personal History (Primary Dx); Garment Sorter (Current) Anticoagulant Treatment; Monitoring For Therapeutic Drug Therapy; Atrial Fibrillation Paroxysmal (HCC) 3 8:30 AM CDT Anticoagulation Visit Department of Anticoagulation in [place], [place] [address] [place] [phone] Emilia Linocln M.D. Thrombosis Deep Vein Personal History (Primary Dx); Garment Sorter (Current) Anticoagulant Treatment; Monitoring For Therapeutic Drug Therapy; Atrial Fibrillation Paroxysmal (HCC) 3 11:15 AM CDT Anticoagulation Visit Department of Anticoagulation in [place], [place] [address] [place] [phone] Telly Gaines M.D. Atrial Fibrillation Paroxysmal (HCC); Garment Sorter (Current) Anticoagulant Treatment; Monitoring For Therapeutic Drug Therapy; Thrombosis Deep Vein Personal History 3 Orders Only Department of Anticoagulation in [place], [place] [address] [place] [address] Tori Dias R.N. Detention (Current) Anticoagulant Treatment (Primary Dx) 3 Refill Department of Family Medicine, [facility] in [place], [place] [address] [place] [address] Jose A Lewis M.D. Med Refill 3 Clinical Communication Department of Family [facility], [facility], in [address] [phone] Emilia Lincoln M.D. 3 1:30 PM CDT - 3 11:59 PM CDT Hospital Encounter Department of Radiology in [address] [phone] Emilia Lincoln M.D. Screening Mammogram Breast Cancer Discharge Disposition: Home or Self Care 3 8:45 AM CDT Anticoagulation Visit Department of Anticoagulation in [place], [place] [address] [place] [phone] Jose A Lewis M.D. Thrombosis Deep Vein Personal History; Garment Sorter (Current) Anticoagulant Treatment; Monitoring For Therapeutic Drug Therapy; Atrial Fibrillation Paroxysmal (HCC) 3 Clinical Communication Department of Cardiovascular Medicine in [place], [place] [address] [place] [address] Ap Buckley M.D., Ph.D. Medication Problem (Dofetilide) 3 Clinical Communication Department of Family Medicine, [facility], in [address] [phone] Iza Albarran R.N. Post Hospital Follow-up (D/c 07/21/2023) 3 2:00 PM CDT Anticoagulation Visit Department of Anticoagulation in [place], [place] [address] [place] [phone] Jose A Lewis M.D. Thrombosis Deep Vein Personal History (Primary Dx); Garment Sorter (Current) Anticoagulant Treatment; Monitoring For Therapeutic Drug Therapy; Atrial Fibrillation Paroxysmal (HCC) 3 9:30 AM CDT Anticoagulation Visit Department of Anticoagulation in [place], [place] [address] [place] [phone] Jose A Lewis M.D. Thrombosis Deep Vein Personal History (Primary Dx); Garment Sorter (Current) Anticoagulant Treatment; Monitoring For Therapeutic Drug Therapy; Atrial Fibrillation Paroxysmal (HCC) 3 Clinical Communication Department of Anticoagulation in [place], [place] [address] [place] [phone] Christine Brandt R.N. Anticoagulation (Post-hospital, tracker updated.) 3 2:34 PM CDT Anesthesia Event Department of Cardiovascular Disease [address] [place] [phone] Lani Huber APRN, SURGICAL SERVICES DIRECTOR, D.N.P. 3 6:46 AM CDT - 3 4:47 PM CDT Hospital Encounter [facility], [facility], Fourth Floor [address] [place] [phone] Ap Buckley M.D., Ph.D. Telly Sorto M.D., Ph.D. Adeel Almeida P.ADerek. Atrial Fibrillation Paroxysmal (HCC) (Primary Dx); Garment Sorter (Current) Anticoagulant Treatment; Thrombosis Deep Vein Acute Calf Right (HCC); Monitoring For Therapeutic Drug Therapy Discharge Disposition: Home or Self Care 3 Clinical Communication Department of Cardiovascular Medicine in [place], [place] [address] [place] [phone] Hannah Falcon APRN, C.N.P. 3 9:00 AM CDT Anticoagulation Visit Department of Anticoagulation in [place], [place] [address] [place] [phone] Jose A Lewis M.D. Thrombosis Deep Vein Personal History (Primary Dx); Detention (Current) Anticoagulant Treatment; Monitoring For Therapeutic Drug Therapy; Atrial Fibrillation Paroxysmal (HCC) 3 Refill Department of [place], [place] [address] [place] [address] Jose A Lewis M.D. Med Refill 3 12:48 PM CDT - 3 11:59 PM CDT Hospital Encounter Department of Laboratory Medicine in [place], [place] [address] [place] [address] Ap Buckley M.D., Ph.D. Atrial Fibrillation Unspecified (HCC) Discharge Disposition: Home or Self Care 3 Clinical Communication Department of Anticoagulation in [place], [place] [address] [place] [address] Veronica Mistry R.N. anticoagulaion procedure 3 2:45 PM CDT Anticoagulation Visit Department of Anticoagulation in [place], [place] [address] [place] [address] Telly Gaines M.D. Atrial Fibrillation Paroxysmal (HCC); Garment Sorter (Current) Anticoagulant Treatment; Monitoring For Therapeutic Drug Therapy; Thrombosis Deep Vein Personal History 3 [facility] [address] [place] [address] Ximena Eckert C.N.P. Repeated Falls (Primary Dx) 3 Clinical Communication Department of Family [facility], [facility], in [place], [place] [address] [place] [address] Jose A Lewis M.D. 3 9:30 AM CDT Anticoagulation Visit Department of Anticoagulation in [place], [place] [address] [place] [address] Jose A Lewis M.D. Thrombosis Deep Vein Personal History (Primary Dx); Garment Sorter (Current) Anticoagulant Treatment; Monitoring For Therapeutic Drug Therapy; Atrial Fibrillation Paroxysmal (HCC) 3 Clinical Communication Department of Urology in [place], [place] [address] [place] [phone] Kendal Bullock M.D. [address] [address] Ximena Eckert C.N.P. Incontinence Urinary (Primary Dx) 3 3:30 PM CDT Anticoagulation Visit Department of Anticoagulation in [place], [place] [address] [place] [address] [phone] Telly Gaines M.D. Atrial Fibrillation Paroxysmal (HCC); Garment Sorter (Current) Anticoagulant Treatment; Monitoring For Therapeutic Drug Therapy; Thrombosis Deep Vein Personal History 3 10:45 AM CDT Education Department of Cardiovascular Medicine in [place], [place] [address] [place] [phone] Lani Pearce R.N., CCRN 3 Clinical Communication Department of Cardiovascular Medicine in [place], [place] [address] [place] [phone] Lani Pearce R.N., CCRN 3 7:07 AM CDT - 3 11:59 PM CDT Hospital Encounter Department of Laboratory Medicine and Pathology, [facility], in [place], [place] [address] [place] [phone] Ap Buckley M.D., Ph.D. Atrial Fibrillation Unspecified (HCC) Discharge Disposition: Home or Self Care 3 9:00 AM CDT Office Visit Department of Cardiovascular Medicine in [place], [place] [address] [place] [phone] Ap Buckley M.D., Ph.D. Obstructive Sleep Apnea Adult (Primary Dx); Hypertension Essential Primary; Hypertension Pulmonary (HCC); Atrial Fibrillation Unspecified (HCC) 3 1:15 PM CDT Clinical Communication Virtual Review in [place], [place] 200 [place] [address] Pre-visit Intake 3 11:00 AM CDT Anticoagulation Visit Department of Anticoagulation in [place], [place] [address] [place] [phone] Jose A Lewis M.D. Thrombosis Deep Vein Personal History (Primary Dx); Garment Sorter (Current) Anticoagulant Treatment; Monitoring For Therapeutic Drug Therapy; Atrial Fibrillation Paroxysmal (HCC) 3 1:30 PM CDT Anticoagulation Visit Department of Anticoagulation in [place], [place] [address] [place] [phone] Telly Gaines M.D. Atrial Fibrillation Paroxysmal (HCC); Garment Sorter (Current) Anticoagulant Treatment; Monitoring For Therapeutic Drug Therapy; Thrombosis Deep Vein Personal History 3 3:00 PM CDT Anticoagulation Visit Department of Anticoagulation in [place], [place] [address] [place] [phone] Telly Gaines M.D. Atrial Fibrillation Paroxysmal (HCC); Detention (Current) Anticoagulant Treatment; Monitoring For Therapeutic Drug Therapy; Thrombosis Deep Vein Personal History 3 Orders Only RST PCP [facility] FLT Jose A Lewis M.D. Hyperlipidemia 3 Clinical Communication Department of Anticoagulation in [place], [place] [address] [place] [phone] Jacquie Chavis R.N. Anticoagulation (Home INR test strips) 3 4:00 PM CDT Anticoagulation Visit Department of Anticoagulation in [place], [place] [address] [place] [phone] Telly Gaines M.D. Atrial Fibrillation Paroxysmal (HCC); Detention (Current) Anticoagulant Treatment; Monitoring For Therapeutic Drug Therapy; Thrombosis Deep Vein Personal History 3 3:16 PM CDT - 3 11:59 PM CDT Hospital Encounter Department of Laboratory Medicine in [address] [phone] Jose A Lewis M.D. Atrial Fibrillation Paroxysmal (HCC); Detention (Current) Anticoagulant Treatment; Monitoring For Therapeutic Drug Therapy Discharge Disposition: Home or Self Care 3 Orders Only Department of Anticoagulation in [place], [place] [address] [place] [address] Lani Mittal R.N. Atrial Fibrillation Paroxysmal (HCC) (Primary Dx); Garment Sorter (Current) Anticoagulant Treatment; Monitoring For Therapeutic Drug Therapy 3 11:00 AM CDT Virtual Visit Department of Cardiovascular Medicine in [place], [place] [address] [place] [phone] Ap Buckley M.D., Ph.D. Atrial Fibrillation Paroxysmal (HCC) (Primary Dx) 3 3:10 PM CDT - 3 11:59 PM CDT Hospital Encounter Department of Cardiovascular Diseases in [place], [place] [address] [place] [phone] Ap Buckley M.D., Ph.D. Atrial Fibrillation Paroxysmal (HCC) Discharge Disposition: Home or Self Care 3 2:00 PM CDT Anticoagulation Visit Department of Anticoagulation in [place], [place] [address] [place] [phone] Telly Gaines M.D. Atrial Fibrillation Paroxysmal (HCC); Detention (Current) Anticoagulant Treatment; Monitoring For Therapeutic Drug Therapy; Thrombosis Deep Vein Personal History 3 10:18 AM CDT - 3 11:59 PM CDT Hospital Encounter Department of Radiology in [address] [phone] Jose A Lewis M.D. Deficiency Estrogen Post Menopausal Discharge Disposition: Home or Self Care 3 Orders Only Department of Anticoagulation in [place], [place] [address] [place] [phone] Amy Morris R.N. Thrombosis Deep Vein Personal History (Primary Dx); Detention (Current) Anticoagulant Treatment; Monitoring For Therapeutic Drug Therapy; Atrial Fibrillation Paroxysmal (HCC) 3 Clinical Communication Department of Anticoagulation in [place], [place] [address] [place] [phone] Amy Morris R.N. Anticoagulation (Referral (PCP updated)) 3 8:30 AM CDT Anticoagulation Visit Department of Anticoagulation in [place], [place] [address] [place] [address] Jose A Lewis M.D. Thrombosis Deep Vein Personal History (Primary Dx); Detention (Current) Anticoagulant Treatment; Monitoring For Therapeutic Drug Therapy; Atrial Fibrillation Paroxysmal (HCC) 3 9:30 AM CDT Anticoagulation Visit Department of Anticoagulation in [place], [place] [address] [place] [phone] Jose A Lewis M.D. Thrombosis Deep Vein Personal History (Primary Dx); Garment Sorter (Current) Anticoagulant Treatment; Monitoring For Therapeutic Drug Therapy; Atrial Fibrillation Paroxysmal (HCC) 3 3:15 PM CDT Anticoagulation Visit Department of Anticoagulation in [place], [place] [address] [place] [phone] Telly Gaines M.D. Atrial Fibrillation Paroxysmal (HCC); Detention (Current) Anticoagulant Treatment; Monitoring For Therapeutic Drug Therapy; Thrombosis Deep Vein Personal History 3 Orders Only RST PCP [facility] Jose A Lewis M.D. 3 10:00 AM MASTER CERTIFIED RV TECHNICIAN Anticoagulation Visit Department of Anticoagulation in [place], [place] [address] [place] [phone] Jose A Lewis M.D. Thrombosis Deep Vein Personal History (Primary Dx); Detention (Current) Anticoagulant Treatment; Monitoring For Therapeutic Drug Therapy; Atrial Fibrillation Paroxysmal (HCC) 3 10:00 AM MASTER CERTIFIED RV TECHNICIAN Anticoagulation Visit Department of Anticoagulation in [place], [place] [address] [place] [phone] Telly Gaines M.D. Atrial Fibrillation Paroxysmal (HCC); Garment Sorter (Current) Anticoagulant Treatment; Monitoring For Therapeutic Drug Therapy; Thrombosis Deep Vein Personal History 3 Refill Department of Family [facility], [place], [place] [address] [place] [phone] Jose A Lewis M.D. Med Refill 3 Refill Department of [facility], [facility] in [place], [place] [address] [place] [phone] Raul Almendarez M.D. Med Refill 3 8:30 AM MASTER CERTIFIED RV TECHNICIAN Virtual Visit Department of Cardiovascular Medicine in [place], [place] [address] [place] [phone] Ap Buckley M.D., Ph.D. Atrial Fibrillation Unspecified (Primary Dx); Atrial Fibrillation Paroxysmal (HCC) 3 8:30 AM MASTER CERTIFIED RV TECHNICIAN Anticoagulation Visit Department of Anticoagulation in [place], [place] [address] [place] [phone] Telly Gaines M.D. Thrombosis Deep Vein Personal History (Primary Dx); Atrial Fibrillation Paroxysmal (HCC); Garment Sorter (Current) Anticoagulant Treatment; Monitoring For Therapeutic Drug Therapy 3 Refill Department of [place], [place] [address] [place] [address] Jose A Lewis M.D. Med Refill 3 Refill Department of Family [place], [place] [address] [place] [address] Telly Gaines M.D. Med Refill 3 11:00 AM MASTER CERTIFIED RV TECHNICIAN Virtual Visit Department of Cardiovascular Medicine in [place], [place] [address] [place] [address] Ap Buckley M.D., Ph.D. Shortness Of Breath (Primary Dx) 3 8:15 AM MASTER CERTIFIED RV TECHNICIAN Anticoagulation Visit Department of Anticoagulation in [place], [place] [address] [place] [address] Telly Gaines M.D. Atrial Fibrillation Paroxysmal (HCC) (Primary Dx); Garment Sorter (Current) Anticoagulant Treatment; Monitoring For Therapeutic Drug Therapy; Thrombosis Deep Vein Personal History 2 10:46 AM MASTER CERTIFIED RV TECHNICIAN - 2 11:59 PM MASTER CERTIFIED RV TECHNICIAN Hospital Encounter Department of Cardiovascular Diseases in [place], [place] [address] [place] [address] Ap Buckley M.D., Ph.D. Atrial Fibrillation Unspecified; Dyspnea On Exertion Discharge Disposition: Home or Self Care 2 9:00 AM MASTER CERTIFIED RV TECHNICIAN - 2 9:16 AM MASTER CERTIFIED RV TECHNICIAN Hospital Encounter Department of Laboratory Medicine and Pathology, [place], [place] [address] [place] [phone] Ap Buckley M.D., Ph.D. Atrial Fibrillation Unspecified; Dyspnea On Exertion Discharge Disposition: Home or Self Care 2 9:17 AM MASTER CERTIFIED RV TECHNICIAN - 2 10:45 AM MASTER CERTIFIED RV TECHNICIAN Hospital Encounter Department [place], [place] [address] [place] [address] Ap Buckley M.D., Ph.D. Dyspnea On Exertion Discharge Disposition: Home or Self Care 2 Refill Department [place] [address] [place] [address] Telly Gaines M.D. Med Refill 2 8:34 AM MASTER CERTIFIED RV TECHNICIAN - 2 11:59 PM MASTER CERTIFIED RV TECHNICIAN Hospital Encounter Department of Cardiovascular Diseases in [place], [place] [address] [address] Ap Buckley M.D., Ph.D. Atrial Fibrillation Unspecified Discharge Disposition: Home or Self Care 2 Orders [facility] A [facility] M.[facility]. Deficiency Estrogen Post Menopausal 2 8:15 AM MASTER CERTIFIED RV TECHNICIAN Anticoagulation Visit Department of Anticoagulation in [place], [place] [address] [place] [phone] Jose A Lewis M.D. Thrombosis Deep Vein Personal History (Primary Dx); Detention (Current) Anticoagulant Treatment; Monitoring For Therapeutic Drug Therapy; Atrial Fibrillation Paroxysmal (HCC) 2 11:00 AM MASTER CERTIFIED RV TECHNICIAN Virtual Visit Department of Cardiovascular Medicine in [place], [place] [address] [place] [phone] Ap Buckley M.D., Ph.D. Atrial Fibrillation Unspecified (Primary Dx); Dyspnea On Exertion; Atrial Fibrillation Paroxysmal (HCC) 2 8:45 AM MASTER CERTIFIED RV TECHNICIAN Anticoagulation Visit Department of Anticoagulation in [place], [place] [address] [place] [phone] Jose A Lewis M.D. Thrombosis Deep Vein Personal History (Primary Dx); Detention (Current) Anticoagulant Treatment; Monitoring For Therapeutic Drug Therapy; Atrial Fibrillation Paroxysmal (HCC) 2 2:00 PM CDT Anticoagulation Visit Department of Anticoagulation in [place], [place] [address] [place] [phone] Telly Gaines M.D. Atrial Fibrillation Paroxysmal (HCC); Detention (Current) Anticoagulant Treatment; Monitoring For Therapeutic Drug Therapy; Thrombosis Deep Vein Personal History 2 8:45 AM CDT Anticoagulation Visit Department of Anticoagulation in [place], [place] [address] [place] [phone] Telly Gaines M.D. Thrombosis Deep Vein Personal History (Primary Dx); Detention (Current) Anticoagulant Treatment; Monitoring For Therapeutic Drug Therapy; Atrial Fibrillation Paroxysmal (HCC) 2 10:30 AM CDT - 2 11:59 PM CDT Hospital Encounter Department of Radiology in [address] [phone] Telly Gaines M.D. Screening Mammogram Breast Cancer Discharge Disposition: Home or Self Care 2 12:48 PM CDT - 2 11:59 PM CDT Hospital Encounter Department of Laboratory Medicine and Pathology, [place], [place] [address] [place] [phone] Ap Buckley M.D., Ph.D. Atrial Fibrillation Paroxysmal (HCC) Discharge Disposition: Home or Self Care 2 10:41 AM CDT - 2 1:53 PM CDT Emergency [facility] [address] [place] [address] Hypertension Borderline (Primary Dx); Headache New Discharge Disposition: Home or Self Care 2 Nurse Triage Department of Family Medicine, [place], [place] [address] [place] [phone] Yocasta Leonardo R.N. Hypertension 2 10:00 AM CDT Anticoagulation Visit Department of Anticoagulation in [place], [place] [address] [place] [phone] Telly Gaines M.D. Atrial Fibrillation Paroxysmal (HCC); Garment Sorter (Current) Anticoagulant Treatment; Monitoring For Therapeutic Drug Therapy; Thrombosis Deep Vein Personal History 2 Clinical Communication Department of Anticoagulation in [place], [place] [address] [place] [phone] Agnieszka Johnson R.N. Anticoagulation (HOME INR mikel- No reported INR's. Attempt to reach) 2 Orders Only [facility] Telly Gaines M.D. Screening Mammogram Breast Cancer 2 4:00 PM CDT Anticoagulation Visit Department of Anticoagulation in [place], [place] [address] [place] [phone] Telly Gaines M.D. Atrial Fibrillation Paroxysmal (HCC); Detention (Current) Anticoagulant Treatment; Monitoring For Therapeutic Drug Therapy; Thrombosis Deep Vein Personal History 2 Refill Department of Family Medicine, [facility] in [place], [place] [address] [place] [phone] Telly Gaines M.D. Med Refill 2 2:00 PM CDT Anticoagulation Visit Department of Anticoagulation in [place], [place] [address] [place] [phone] Telly Gaines M.D. Atrial Fibrillation Paroxysmal (HCC); Garment Sorter (Current) Anticoagulant Treatment; Monitoring For Therapeutic Drug Therapy; Thrombosis Deep Vein Personal History 2 Clinical Communication Department of Orthopedic Surgery in [place], [place] [address] [place] [phone] Ronaldo Moore M.D. Surgical Listing; Phone Contact 2 Clinical Communication Department of Orthopedic Surgery in [place], [place] [address] [place] [phone] Ronaldo Moore M.D. Procedure 2 10:45 AM CDT Anticoagulation Visit Department of Anticoagulation in [place], [place] [address] [place] [phone] Telly Gaines M.D. Thrombosis Deep Vein Personal History (Primary Dx); Garment Sorter (Current) Anticoagulant Treatment; Monitoring For Therapeutic Drug Therapy; Atrial Fibrillation Paroxysmal (HCC) 2 2:00 PM CDT Office Visit Department of Family Medicine, [facility] in [place], [place] [address] [place] [phone] Telly Gaines M.D. Preoperative Exam (Primary Dx); Depression Major Recurrent Full Remission (HCC); Atrial Fibrillation Paroxysmal (HCC); Asthma Mild Intermittent (HCC); History Of Falling; Primary Osteoarthritis Knee Right; Thrombosis Deep Vein Personal History; Garment Sorter (Current) Anticoagulant Treatment; Maintenance Health Adult; Hypertension Essential Primary 2 Orders Only Department of Family Medicine, [facility] in [address] [address] Telly Gaines M.D. Polyp Colon Adenomatous Personal History 2 10:30 AM CDT Clinical Communication Virtual Review in [address] [address] Intake Assessment 2 Clinical Communication Department of Cardiovascular Medicine in [address] [phone] Engine TurnerHi M.D. Triage (Hosp f/u 2 weeks) 2 Orders Only Department of Cardiovascular Medicine in [address] [address] Hansa Childers, NIKITA, C.N.P. Atrial Fibrillation Paroxysmal (HCC) (Primary Dx) 2 2:00 PM CDT Anticoagulation Visit Department of Anticoagulation in [place], [place] [address] [place] [phone] Telly Gaines M.D. Atrial Fibrillation Paroxysmal (HCC); Detention (Current) Anticoagulant Treatment; Monitoring For Therapeutic Drug Therapy; Thrombosis Deep Vein Personal History 2 Clinical Communication Department of Cardiovascular Medicine in [place], [place] [address] [place] [address] Ap Buckley M.D., Ph.D. Atrial Fibrillation (Communication) 2 7:23 PM CDT - 2 12:37 PM CDT Emergency [facility] Emergency Department [address] [place] [phone] Jan Molina M.D. Dehydration (Primary Dx); Lightheadedness; Atrial Fibrillation (HCC) Discharge Disposition: Home or Self Care 2 11:00 AM CDT Ancillary Procedure Department of Gastroenterology 2 9:21 AM CDT - 2 7:22 PM CDT Hospital Encounter Division of Gastroenterology in [place], [place] [address] [place] [phone] Telly Gaines M.D. Polyp Colon Discharge Disposition: Home or Self Care 2 8:15 AM CDT Anticoagulation Visit Department of Anticoagulation in [place], [place] [address] [place] [phone] Telly Gaines M.D. Atrial Fibrillation Paroxysmal (HCC); Garment Sorter (Current) Anticoagulant Treatment; Monitoring For Therapeutic Drug Therapy; Thrombosis Deep Vein Personal History 2 Orders Only Department of Orthopedic Surgery in [place], [place] [address] [place] [phone] Storm Iqbal P.A.-C., M.S. Primary Osteoarthritis Knee Right (Primary Dx) 2 Nurse Triage Department of Family Medicine, [facility], in [place], [place] [address] [place] [phone] Melissa Peguero RMorgan. Bleeding/Bruising 2 Clinical Communication Department of Anticoagulation in [place], [place] [address] [place] [phone] Tori Dias R.N. 2 1:45 PM CDT Anticoagulation Visit Department of Anticoagulation in [place], [place] [address] [place] [phone] Telly Gaines M.D. Atrial Fibrillation Paroxysmal (HCC); Detention (Current) Anticoagulant Treatment; Monitoring For Therapeutic Drug Therapy; Thrombosis Deep Vein Personal History 2 1:15 PM CDT Anticoagulation Visit Department of Anticoagulation in [place], [place] [address] [place] [address] Telly Gaines M.D. Atrial Fibrillation Paroxysmal (HCC); Detention (Current) Anticoagulant Treatment; Monitoring For Therapeutic Drug Therapy; Thrombosis Deep Vein Personal History 2 8:30 AM CDT Comprehensive Visit Division of Gastroenterology in [place], [place] [address] [place] [address] Telly Nguyen M.D. Gastroesophageal Reflux Disease Without Esophagitis 2 Orders Only Department of [facility] in [place], [place] [address] [place] [address] Telly Gaines M.D. 2 8:45 AM CDT Anticoagulation Visit Department of Anticoagulation in [place], [place] [address] [place] [phone] Telly Gaines M.D. Atrial Fibrillation Paroxysmal (HCC); Detention (Current) Anticoagulant Treatment; Monitoring For Therapeutic Drug Therapy; Thrombosis Deep Vein Personal History 2 Clinical Communication Department of [facility] in [place], [place] [address] [place] [address] Telly Gaines M.D. Pre-op Exam 2 10:45 AM CDT Anticoagulation Visit Department of Anticoagulation in [place], [place] [address] [place] [address] Telly Gaines M.D. Atrial Fibrillation Paroxysmal (HCC); Detention (Current) Anticoagulant Treatment; Monitoring For Therapeutic Drug Therapy; Thrombosis Deep Vein Personal History 2 Orders Only Preoperative Evaluation Center in [place], [place] [address] [place] [address] Tri Price, NIKITA, C.N.P. Preanesthetic Medical Exam (Primary Dx) 2 Orders Only Department of Family Medicine, [facility], in [place], [place] [address] [place] [address] Telly Gaines M.D. Gastroesophageal Reflux Disease Without Esophagitis 2 11:05 AM CDT Ancillary Procedure Department of Gastroenterology 2 10:02 AM CDT - 2 11:59 PM CDT Hospital Encounter Division of Gastroenterology in [place], [place] [address] [place] [address] Telly Gaines M.D. Gastroesophageal Reflux Disease Without Esophagitis Discharge Disposition: Home or Self Care 2 10:03 AM CDT - 2 11:59 PM CDT Hospital Encounter Department of Laboratory Medicine, [facility], in [place], [place] [address] [place] [address] Sameer Bowman D.O. Discharge Disposition: Home or Self Care 2 Orders Only RST PCP [facility] Telyl Gaines M.D. 2 10:20 AM CDT Admin Visit Urgent Care in [address] [address] 2 External Outreach Department of [facility], [facility], in [address] [address] Sameer Bowman D.OHarmony Contact With And (Suspected) Exposure To COVID-19 (Primary Dx) 2 10:30 AM CDT Office Visit Department of [facility], in [address] [address] Dora Martinez APRN, C.N.P., D.N.P., M.S.N. Sore Throat (Primary Dx); Cough Unspecified Type; Conjunctivitis Acute Bilateral 2 2:00 PM CDT Virtual Visit Department [place], [place] [address] [place] [address] Telly Gaines M.D. Gastroesophageal Reflux Disease Without Esophagitis (Primary Dx); Garment Sorter (Current) Anticoagulant Treatment; Viral Syndrome 2 Orders Only Department [facility], [facility], in [place], [place] [address] [place] [address] Telly Gaines M.D. Gastroesophageal Reflux Disease Without Esophagitis 2 3:45 PM CDT Anticoagulation Visit Department of Anticoagulation in [place], [place] [address] [place] [phone] Telly Gaines M.D. Atrial Fibrillation Paroxysmal (HCC); Garment Sorter (Current) Anticoagulant Treatment; Monitoring For Therapeutic Drug Therapy; Thrombosis Deep Vein Personal History 2 3:00 PM CDT Virtual Visit Department [facility] in [place], [place] [address] [place] [address] Telly Gaines M.D. Hyperlipidemia; Viral Syndrome 2 7:00 AM CDT Anticoagulation Visit Department of Anticoagulation in [place], [place] [address] [place] [phone] Telly Gaines M.D. Atrial Fibrillation Paroxysmal (HCC); Detention (Current) Anticoagulant Treatment; Monitoring For Therapeutic Drug Therapy; Thrombosis Deep Vein Personal History 2 1:45 PM CDT Anticoagulation Visit Department of Anticoagulation in [place], [place] [address] [place] [phone] Telly Gaines M.D. Atrial Fibrillation Paroxysmal (HCC); Garment Sorter (Current) Anticoagulant Treatment; Monitoring For Therapeutic Drug Therapy; Thrombosis Deep Vein Personal History 2 11:32 AM CDT - 2 11:59 PM CDT Hospital Encounter Department of Radiology in [place], [place] [address] [place] [address] Adarsh Ramirez M.D., M.B.A. Cough Unspecified Type Discharge Disposition: Home or Self Care 2 11:30 AM CDT Office Visit Department of Family Medicine, [facility], in [place], [place] [address] [place] [address] Adarsh Ramirez M.D., M.B.A. Cough Unspecified Type (Primary Dx); Bronchitis Acute 2 3:00 PM CDT Virtual Visit Department of Cardiovascular Medicine in [place], [place] [address] [place] [phone] Ap Buckley M.D., Ph.D. Atrial Fibrillation Paroxysmal (HCC) (Primary Dx) 2 Orders Only Department [place], [place] [address] [place] [phone] Telly Gaines M.D. Hyperlipidemia (Primary Dx) 2 9:33 AM CDT - 2 11:59 PM CDT Hospital Encounter Department of Laboratory Medicine in [address] [phone] Ap Buckley M.D., Ph.D. Atrial Fibrillation Paroxysmal (HCC) Discharge Disposition: Home or Self Care 2 9:32 AM CDT Hospital Encounter Department of Laboratory Medicine in [address] [address] Ap Buckley M.D., Ph.D. Atrial Fibrillation Paroxysmal (HCC); Hyperlipidemia Discharge Disposition: Home or Self Care 2 Refill Department of [facility], [facility] in [place], [place] [address] [place] [address] Telly Gaines M.D. Med Refill 2 7:30 AM CDT Ancillary Procedure Department of Orthopedic Surgery 2 Clinical Communication Department of Orthopedic Surgery in [place], [place] [address] [place] [address] Ronaldo Moore M.D. reschedule surgery 2 Orders Only Department of Orthopedic Surgery in [place], [place] [address] [place] [address] Storm Iqbal P.A.-C., M.S. Primary Osteoarthritis Knee Right (Primary Dx) 2 Clinical Communication Department of Orthopedic Surgery in [place], [place] [address] [place] [address] Ronaldo Moore M.D. schedule surgery 2 7:18 AM CDT - 2 11:59 PM CDT Hospital Encounter Department of Radiology, [facility] in [place], [place] [address] [place] [address] Storm Iqbal P.A.-C., M.S. Primary Osteoarthritis Knee Right Discharge Disposition: Home or Self Care 2 8:45 AM CDT Office Visit Department of Orthopedic Surgery in [place], [place] [address] [place] [address] Ronaldo Moore M.D. Primary Osteoarthritis Knee Right (Primary Dx) 2 4:00 PM CDT Anticoagulation Visit Department of Anticoagulation in [place], [place] [address] [place] [address] Telly Gaines M.D. Atrial Fibrillation Paroxysmal (HCC); Detention (Current) Anticoagulant Treatment; Monitoring For Therapeutic Drug Therapy; Thrombosis Deep Vein Personal History 2 Orders Only Department of Family Medicine, [facility] in [place], [place] [address] [place] [address] Telly Gaines M.D. Polyp Colon 2 Orders Only Department of Orthopedic Surgery in [place], [place] [address] [place] [address] Storm Iqbal P.A.-C., M.S. Primary Osteoarthritis Knee Right (Primary Dx) 2 3:30 PM CDT Anticoagulation Visit Department of Anticoagulation in [place], [place] [address] [place] [address] Telly Gaines M.D. Atrial Fibrillation Paroxysmal (HCC); Detention (Current) Anticoagulant Treatment; Monitoring For Therapeutic Drug Therapy; Thrombosis Deep Vein Personal History 2 11:15 AM CDT Anticoagulation Visit Department of Anticoagulation in [place], [place] [address] [place] [phone] Telly Gaines M.D. Atrial Fibrillation Paroxysmal (HCC); Garment Sorter (Current) Anticoagulant Treatment; Monitoring For Therapeutic Drug Therapy; Thrombosis Deep Vein Personal History 2 4:00 PM CDT Anticoagulation Visit Department of Anticoagulation in [place], [place] [address] [place] [phone] Telly Gaines M.D. Atrial Fibrillation Paroxysmal (HCC); Detention (Current) Anticoagulant Treatment; Monitoring For Therapeutic Drug Therapy; Thrombosis Deep Vein Personal History 2 10:15 AM CDT Anticoagulation Visit Department of Anticoagulation in [place], [place] [address] [place] [phone] Telly Gaines M.D. Atrial Fibrillation Paroxysmal (HCC); Detention (Current) Anticoagulant Treatment; Monitoring For Therapeutic Drug Therapy; Thrombosis Deep Vein Personal History 2 Orders Only RST PCP [facility] MNT Telly Gaines M.D. Hyperlipidemia 2 2:15 PM MASTER CERTIFIED RV TECHNICIAN Anticoagulation Visit Department of Anticoagulation in [place], [place] [address] [place] [address] Telly Gaines M.D. Atrial Fibrillation Paroxysmal (HCC); Garment Sorter (Current) Anticoagulant Treatment; Monitoring For Therapeutic Drug Therapy; Thrombosis Deep Vein Personal History 2 7:00 AM MASTER CERTIFIED RV TECHNICIAN Anticoagulation Visit Department of Anticoagulation in [place], [place] [address] [place] [address] Telly Gaines M.D. Atrial Fibrillation Paroxysmal (HCC); Detention (Current) Anticoagulant Treatment; Monitoring For Therapeutic Drug Therapy; Thrombosis Deep Vein Personal History 2 1:50 PM MASTER CERTIFIED RV TECHNICIAN Anticoagulation Visit Department of Anticoagulation in [place], [place] [address] [place] [address] Telly Gaines M.D. Atrial Fibrillation Paroxysmal (HCC); Detention (Current) Anticoagulant Treatment; Monitoring For Therapeutic Drug Therapy; Thrombosis Deep Vein Personal History 2 1:10 PM MASTER CERTIFIED RV TECHNICIAN - 2 11:59 PM MASTER CERTIFIED RV TECHNICIAN Hospital Encounter Department of Laboratory Medicine and Pathology, [facility], in [place], [place] [address] [place] [address] Telly Gaines M.D. Atrial Fibrillation Paroxysmal (HCC); Garment Sorter (Current) Anticoagulant Treatment; Monitoring For Therapeutic Drug Therapy; Thrombosis Deep Vein Personal History Discharge Disposition: Home or Self Care 2 Anticoagulation Visit Department of Anticoagulation in [place], [place] [address] [place] [address] Jacquie Chavis R.N. Atrial Fibrillation Paroxysmal (HCC); Detention (Current) Anticoagulant Treatment; Monitoring For Therapeutic Drug Therapy; Thrombosis Deep Vein Personal History 2 Refill Division of Gastroenterology in [place], [place] [address] [place] [address] Evert Roberts M.D. Med Refill 2 Clinical Communication Department of Anticoagulation in [place], [place] [address] [place] [address] Yun Lau Anticoagulation (Change in care) 2 2:45 PM MASTER CERTIFIED RV TECHNICIAN Anticoagulation Visit Department of Family Medicine, [facility] in [place] [address] [place] [address] Telly Gaines M.D. Atrial Fibrillation Paroxysmal (HCC); Detention (Current) Anticoagulant Treatment; Monitoring For Therapeutic Drug Therapy; Thrombosis Deep Vein Personal History 2 Clinical Communication Department of Family Medicine, [facility] in [place], [place] [address] [place] [address] Lanette Zepeda RPreeti Anticoagulation (New Do machine today- unable to reach) 2 2:00 PM MASTER CERTIFIED RV TECHNICIAN Anticoagulation Visit Department of Family Medicine, [facility], in [place], [place] [address] [place] [address] Telly Gaines M.D. Atrial Fibrillation Paroxysmal (HCC); Detention (Current) Anticoagulant Treatment; Monitoring For Therapeutic Drug Therapy; Thrombosis Deep Vein Personal History 2 Clinical Communication Department of Family Medicine, [facility], in [place], [place] [address] [place] [phone] Bridget Wallis RHarmonyNHarmony Anticoagulation 2 Orders Only Department of Family Medicine, [facility], in [place], [place] [address] [place] [address] Emanuel Cao RMorgan. Atrial Fibrillation Paroxysmal (HCC); Detention (Current) Anticoagulant Treatment; Monitoring For Therapeutic Drug Therapy; Thrombosis Deep Vein Personal History 2 Clinical Communication Department of Anticoagulation in [place], [place] [address] [place] [phone] Matilde Cooper R.N. 2 10:15 AM MASTER CERTIFIED RV TECHNICIAN Anticoagulation Visit Department of Anticoagulation in [address] [address] Telly Gaines M.D. Atrial Fibrillation Paroxysmal (HCC); Detention (Current) Anticoagulant Treatment; Monitoring For Therapeutic Drug Therapy; Thrombosis Deep Vein Acute Calf Right (HCC); Thrombosis Deep Vein Personal History 2 Clinical Communication Department of Anticoagulation in [place], [place] [address] [place] [phone] Ileana Zurita RPreeti Anticoagulation (Home INR Enrollment/) 2 10:15 AM MASTER CERTIFIED RV TECHNICIAN Anticoagulation Visit Department of Anticoagulation in [place], [place] [address] [place] [address] Telly Gaines M.D. Atrial Fibrillation Paroxysmal (HCC); Detention (Current) Anticoagulant Treatment; Monitoring For Therapeutic Drug Therapy; Thrombosis Deep Vein Acute Calf Right (HCC); Thrombosis Deep Vein Personal History 2 2:15 PM MASTER CERTIFIED RV TECHNICIAN Anticoagulation Visit Department of Anticoagulation in [place], [place] [address] [place] [phone] Telly Gaines M.D. Atrial Fibrillation Paroxysmal (HCC); Garment Sorter (Current) Anticoagulant Treatment; Monitoring For Therapeutic Drug Therapy; Thrombosis Deep Vein Acute Calf Right (HCC); Thrombosis Deep Vein Personal History 2 1:45 PM MASTER CERTIFIED RV TECHNICIAN Anticoagulation Visit Department of Anticoagulation in [address] [address] Telly Gaines M.D. Atrial Fibrillation Paroxysmal (HCC); Detention (Current) Anticoagulant Treatment; Monitoring For Therapeutic Drug Therapy; Thrombosis Deep Vein Acute Calf Right (HCC); Thrombosis Deep Vein Personal History 1 8:00 AM MASTER CERTIFIED RV TECHNICIAN Anticoagulation Visit Department of Anticoagulation in [address] [address] Telly Gaines M.D. Atrial Fibrillation Paroxysmal (HCC); Detention (Current) Anticoagulant Treatment; Monitoring For Therapeutic Drug Therapy; Thrombosis Deep Vein Acute Calf Right (HCC); Thrombosis Deep Vein Personal History 1 Orders Only Department of Family Medicine[address] [address] Telly Gaines M.D. 1 4:00 PM CDT Virtual Visit Department of Cardiovascular Medicine [address] [address] Ap Buckley M.D., Ph.D. Atrial Fibrillation Paroxysmal (HCC) (Primary Dx) 1 2:00 PM CDT Comprehensive Visit Department [place], [place] [address] [place] [phone] Telly Gaines M.D. Thrombosis Deep Vein Personal History (Primary Dx); Depression Major Recurrent (HCC); Hyperlipidemia; Hypertension Essential Primary; Maintenance Health Adult; Garment Sorter (Current) Anticoagulant Treatment; Restless Leg Syndrome; Personal History Of Infectious And Parasitic Disease (COVID-19); Metabolizer CYP2D6 Rapid; Gastroesophageal Reflux Disease Without Esophagitis; Atrial Fibrillation Paroxysmal (HCC); Asthma Mild Intermittent (HCC); Thrombosis Deep Vein Acute Calf Right (HCC); Monitoring For Therapeutic Drug Therapy 1 Refill Department of Family Medicine, [facility], [place] [address] [place] [address] Telly Gaines M.D. Med Refill 1 12:43 PM CDT - 1 11:59 PM CDT Hospital Encounter Department of Laboratory Medicine in [address] [address] Ap Buckley M.D., Ph.D. Atrial Fibrillation Paroxysmal (HCC) Discharge Disposition: Home or Self Care 1 12:42 PM CDT Hospital Encounter Department of Laboratory Medicine in [address] [address] Erinn Johnson, R.N. Atrial Fibrillation Paroxysmal (HCC); Garment Sorter (Current) Anticoagulant Treatment; Monitoring For Therapeutic Drug Therapy; Thrombosis Deep Vein Acute Calf Right (HCC) Discharge Disposition: Home or Self Care 1 2:30 PM CDT Anticoagulation Visit Department of Anticoagulation in [place], [place] [address] [place] [address] Erinn Johnson, R.N. Atrial Fibrillation Paroxysmal (HCC) (Primary Dx); Detention (Current) Anticoagulant Treatment; Monitoring For Therapeutic Drug Therapy; Thrombosis Deep Vein Acute Calf Right (HCC) 1 10:00 AM CDT - 1 12:41 PM CDT Hospital Encounter Department of Laboratory Medicine in [address] [address] Erinn Johnson, R.N. Atrial Fibrillation Paroxysmal (HCC); Monitoring For Therapeutic Drug Therapy Discharge Disposition: Home or Self Care 1 4:15 PM CDT Anticoagulation Visit Department of Anticoagulation in [place], [place] [address] [place] [address] Erinn Johnson, R.N. Monitoring For Therapeutic Drug Therapy (Primary Dx); Atrial Fibrillation Paroxysmal (HCC); Detention (Current) Anticoagulant Treatment; Thrombosis Deep Vein Acute Calf Right (HCC) 1 10:57 AM CDT - 1 11:59 PM CDT Hospital Encounter Department of Laboratory Medicine in [place], [place] [address] [place] [address] Erinn Johnson R.N. Atrial Fibrillation Paroxysmal (HCC); Detention (Current) Anticoagulant Treatment; Monitoring For Therapeutic Drug Therapy; Thrombosis Deep Vein Acute Calf Right (HCC) Discharge Disposition: Home or Self Care 1 Orders Only RST PCP HLTH Radha De La Torre M.D. 1 10:30 AM CDT Office Visit Department of Family Medicine, [place], [place] [address] [place] [address] Jose A Lewis M.D. Hypertensive Heart Disease With Heart Failure (HCC) (Primary Dx) 1 Nurse Triage Department of [facility], [place], [place] [address] [place] [address] Estefanía Mejia R.N. Hypertension 1 Orders Only RST PCP HLTH Telly Bates M.D. Monitoring For Therapeutic Drug Therapy 1 2:00 PM CDT Anticoagulation Visit Department of Anticoagulation in [address] [address] Erinn Johnson, R.N. Atrial Fibrillation Paroxysmal (HCC); Garment Sorter (Current) Anticoagulant Treatment; Monitoring For Therapeutic Drug Therapy; Thrombosis Deep Vein Acute Calf Right (HCC) 1 2:59 PM CDT - 1 11:59 PM CDT Hospital Encounter Department of Laboratory Medicine in [place], [place] [address] [place] [address] Telly Gaines M.D. Atrial Fibrillation Paroxysmal (HCC) Discharge Disposition: Home or Self Care 1 Orders Only Department of [facility], [place], [place] [address] [place] [address] Telly Gaines M.D. Atrial Fibrillation Paroxysmal (HCC) (Primary Dx) 1 3:30 PM CDT Anticoagulation Visit Department of Anticoagulation in [place], [place] [address] [place] [phone] Erinn Johnson R.N. Atrial Fibrillation Paroxysmal (HCC); Detention (Current) Anticoagulant Treatment; Monitoring For Therapeutic Drug Therapy; Thrombosis Deep Vein Acute Calf Right (HCC) 1 11:45 AM CDT - 1 11:59 PM CDT Hospital Encounter Department of Laboratory Medicine in [place], [place] [address] [place] [address] Erinn Johnson R.N. Atrial Fibrillation Paroxysmal (HCC); Detention (Current) Anticoagulant Treatment; Monitoring For Therapeutic Drug Therapy; Thrombosis Deep Vein Acute Calf Right (HCC) Discharge Disposition: Home or Self Care 1 Clinical Communication Department of [place], [place] [address] [place] [address] Telly Gaines M.D. INR phone visit 1 12:22 PM CDT - 1 11:59 PM CDT Hospital Encounter Department of Radiology in [place], [place] [address] [place] [address] Telly Gaines M.D. Density Breast Discharge Disposition: Home or Self Care 1 Orders Only Department of [place], [place] [address] [place] [address] Telly Gaines M.D. Density Breast (Primary Dx) 1 Clinical Communication Department of [place], [place] [address] [place] [address] Telly Gaines M.D. 1 12:37 PM CDT - 1 11:59 PM CDT Hospital Encounter Department of Radiology in [place], [place] [address] [place] [address] Telly Gaines M.D. Screening Mammogram Breast Cancer Discharge Disposition: Home or Self Care 1 Refill Department of Family Medicine, [facility], in [place], [place] [address] [place] [address] Telly Gaines M.D. Med Refill 1 2:30 PM CDT - 1 11:59 PM CDT Hospital Encounter Department of Laboratory Medicine in [place], [place] [address] [place] [address] Telly Gaines M.D. Atrial Fibrillation Paroxysmal (HCC); Detention (Current) Anticoagulant Treatment; Monitoring For Therapeutic Drug Therapy; Thrombosis Deep Vein Acute Calf Right (HCC) Discharge Disposition: Home or Self Care 1 8:30 AM CDT Anticoagulation Visit Department of Anticoagulation in [place], [place] [address] [place] [phone] Atrial Fibrillation Paroxysmal (HCC) (Primary Dx); Detention (Current) Anticoagulant Treatment; Monitoring For Therapeutic Drug Therapy; Thrombosis Deep Vein Acute Calf Right (HCC) 1 Orders Only Department of Family Medicine, [facility], in [place], [place] [address] [place] [address] Karine Boyd APRN, C.N.P., D.N.P. 1 External Outreach Department of Family Medicine, [facility], in [place], [place] [address] [place] [phone] Sameer Bowman D.O. Contact With And (Suspected) Exposure To COVID-19 (Primary Dx) Discharge Disposition: Home or Self Care 1 1:50 PM CDT Nurse Only Urgent Care in [place], [place] [address] [address] Nereida Emmanuel, L.P.N. 1 1:30 PM CDT - 1 11:59 PM CDT Hospital Encounter Department of Radiology in [place], [place] [address] [place] [address] Karine Boyd APRN C.N.PHarmony, D.N.P. Cough (Concern For Covid-19) Discharge Disposition: Home or Self Care 1 11:30 AM CDT Office Visit [facility] [address] [place] [address] Karine Boyd APRN C.N.PHarmony, D.N.P. Bronchitis Chronic (HCC) (Primary Dx); Hypertensive Heart Disease With Heart Failure (HCC); Atrial Fibrillation Paroxysmal (HCC); Personal History Of Infectious And Parasitic Disease (COVID-19); Cough (Concern For Covid-19) 1 4:30 PM CDT Anticoagulation Visit Department of Anticoagulation in [place], [place] [address] [place] [address] Atrial Fibrillation Paroxysmal (HCC); Garment Sorter Anticoagulant Treatment; Monitoring For Therapeutic Drug Therapy; Thrombosis Deep Vein Acute Calf Right (HCC) 1 10:34 AM CDT - 1 11:59 PM CDT Hospital Encounter Department of Laboratory Medicine in [place], [place] [address] [place] [phone] Jeffrey Garay, Adali. Atrial Fibrillation Paroxysmal (HCC); Garment Sorter Anticoagulant Treatment; Monitoring For Therapeutic Drug Therapy; Thrombosis Deep Vein Acute Calf Right (HCC) Discharge Disposition: Home or Self Care 1 Refill Department of Family Medicine, [facility], in [place], [place] [address] [place] [address] Telly Gaines M.D. Med Refill 1 Orders Only Department of Family Medicine, [facility], in [place], [place] [address] [place] [phone] Erinn Johnson, RPreeti Atrial Fibrillation Paroxysmal (HCC) (Primary Dx) 1 Orders Only Department of Cardiovascular Medicine in [place], [place] [address] [place] [address] Ap Buckley M.D., Ph.D. 1 Clinical Communication Department of Anticoagulation in [place], [place] [address] [place] [phone] Debbi Marsh R.N. Anticoagulation 1 4:45 PM CDT Anticoagulation Visit Department of Anticoagulation in [place], [place] [address] [place] [phone] Atrial Fibrillation Paroxysmal (HCC); Garment Sorter Anticoagulant Treatment; Monitoring For Therapeutic Drug Therapy; Thrombosis Deep Vein Acute Calf Right (HCC) 1 Clinical Communication Department of Anticoagulation in [place], [place] [address] [place] [address] Jeffrey Garay P.A.-C. Anticoagulation (Yearly referral-SEMN ) 1 Orders Only Department of Orthopedic Surgery in [place], [place] [address] [place] [address] Ruba Duvall M.D. 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 Restless Leg Syndrome (Primary Dx) 1 8:37 AM CDT - 1 11:59 PM CDT Hospital Encounter Department of Laboratory Medicine in [place], [place] [address] [place] [address] Telly Gaines M.D. Hyperlipidemia Discharge Disposition: Home or Self Care 1 9:00 AM CDT Anticoagulation Visit Department of Anticoagulation in [address] [address] Jeffrey Garay P.A.-CHarmony Monitoring For Therapeutic Drug Therapy; Detention Anticoagulant Treatment; Atrial Fibrillation Paroxysmal (HCC); Thrombosis Deep Vein Acute Calf Right (HCC) 1 Clinical Communication Department of [facility], [facility] in [place], [place] [address] [place] [address] Telly Gaines M.D. Appointment (billy) 1 12:00 PM CDT Office Visit [facility] in [place], [place] [address] [place] [address] Storm Mcgee M.D. Sleep Apnea (Primary Dx); Inadequate Sleep Hygiene 1 10:00 AM CDT Virtual Visit Department of Cardiovascular Medicine in [place], [place] [address] [place] [address] Ap Buckley M.D., Ph.D. Atrial Fibrillation Paroxysmal (HCC) (Primary Dx) 1 9:39 AM CDT - 1 11:59 PM CDT Hospital Encounter Department of Laboratory Medicine in [address] [address] Ap Buckley M.D., Ph.D. Atrial Fibrillation Paroxysmal (HCC) Discharge Disposition: Home or Self Care 1 9:39 AM CDT - 1 11:59 PM CDT Hospital Encounter Department of Laboratory Medicine in [address] [address] Ap Buckley M.D., Ph.D. Atrial Fibrillation Paroxysmal (HCC) Discharge Disposition: Home or Self Care 1 9:15 AM CDT Anticoagulation Visit Department of Anticoagulation in [address] [address] Jeffrey Garay P.A.-C. Monitoring For Therapeutic Drug Therapy; Garment Sorter Anticoagulant Treatment; Atrial Fibrillation Paroxysmal (HCC); Thrombosis Deep Vein Acute Calf Right (HCC) 1 Orders Only RST PCP [facility] Delgado Billy Jr., M.D. 1 Refill Department of Family Medicine, [facility], in [place], [place] [address] [place] [address] Telly Gaines M.D. Med Refill 1 8:45 AM MASTER CERTIFIED RV TECHNICIAN Anticoagulation Visit Department of Anticoagulation in [address] [phone] Jeffrey Garay P.A.-C. Monitoring For Therapeutic Drug Therapy; Garment Sorter Anticoagulant Treatment; Atrial Fibrillation Paroxysmal (HCC); Thrombosis Deep Vein Acute Calf Right (HCC) 1 8:30 AM MASTER CERTIFIED RV TECHNICIAN Office Visit Department of Orthopedic Surgery in [place], [place] [address] [place] [address] Ronaldo Moore M.D. Primary Osteoarthritis Knee Right (Primary Dx) 1 4:00 PM MASTER CERTIFIED RV TECHNICIAN Telemedicine [facility] in [place], [place] [address] [place] [phone] Silvino Pineda D.O., M.S. Sleep Apnea (Primary Dx); Dyspnea 1 Clinical Communication Department of Orthopedic Surgery in [place], [place] [address] [place] [phone] Ronaldo Moore M.D. COVID Inquiry 1 1:10 PM MASTER CERTIFIED RV TECHNICIAN Comprehensive Visit Division of Gastroenterology in [place], [place] [address] [place] [phone] Eli Morin M.B., B.Ch. Evert Roberts M.D. Gastroesophageal Reflux Disease Without Esophagitis 1 9:10 AM MASTER CERTIFIED RV TECHNICIAN - 1 11:59 PM MASTER CERTIFIED RV TECHNICIAN Hospital Encounter Department of Laboratory Medicine and Pathology, [facility], in [place], [place] [address] [place] [address] Eli Morin M.B., B.Ch. Dyspnea Discharge Disposition: Home or Self Care 1 9:00 AM MASTER CERTIFIED RV TECHNICIAN Diagnostic Division of Pulmonary Medicine in [place], [place] [address] [place] [address] Eli Morin M.B., B.Ch. Dyspnea 1 Clinical Communication Department of Family [facility], [facility], in [place], [place] [address] [place] [address] Jeffrey Garay, P.A.-C. Anticoagulation 1 10:00 AM MASTER CERTIFIED RV TECHNICIAN Anticoagulation Visit Department of Anticoagulation in [place], [place] [address] [place] [address] Jeffrey Garay P.A.-C. Monitoring For Therapeutic Drug Therapy; Garment Sorter Anticoagulant Treatment; Atrial Fibrillation Paroxysmal (HCC); Thrombosis Deep Vein Acute Calf Right (HCC) 1 1:00 PM MASTER CERTIFIED RV TECHNICIAN Diagnostic Division of Pulmonary Medicine in [place], [place] [address] [place] [address] Eli Morin M.B., B.Ch. Cough 1 4:00 PM MASTER CERTIFIED RV TECHNICIAN Office Visit Division of Pulmonary Medicine in [place], [place] [address] [place] [address] Eli Morin M.B., B.Ch. Dyspnea (Primary Dx) 1 Clinical Communication Division of Gastroenterology in [place], [place] [address] [place] [phone] Provider, Unknown 0 Clinical Communication Division of Pulmonary Medicine in [place], [place] [address] [place] [address] Eli Morin M.B., B.Ch. COVID Inquiry 0 Refill Department of Family Medicine, [facility] in [place], [place] [address] [place] [address] Telly Gaines M.D. Med Refill 0 9:45 AM MASTER CERTIFIED RV TECHNICIAN Anticoagulation Visit Department of Anticoagulation in [place], [place] [address] [place] [phone] Jeffrey Garay PHarmonyA.-C. Monitoring For Therapeutic Drug Therapy; Garment Sorter Anticoagulant Treatment; Atrial Fibrillation Paroxysmal (HCC); Thrombosis Deep Vein Acute Calf Right (HCC) 0 Orders Only [facility] T[facility] Gaines M.D. 0 Orders Only Department of Cardiovascular Medicine in [place], [place] [address] [place] [address] Ap Buckley M.D., Ph.D. Atrial Fibrillation Paroxysmal (HCC) (Primary Dx) 0 Orders Only Division of Pulmonary Medicine in [place], [place] [address] [place] [phone] Eli Morin M.B., B.Ch. Hernia Hiatal (Primary Dx) 0 Refill Department of Cardiovascular Medicine in [place], [place] [address] [place] [address] Ap uBckley M.D., Ph.D. Med Refill 0 Clinical Communication Department of Cardiovascular Medicine in [place], [place] [address] [place] [address] Ap Buckley M.D., Ph.D. Out of sotalol (Communication) 0 2:22 PM MASTER CERTIFIED RV TECHNICIAN - 0 11:59 PM MASTER CERTIFIED RV TECHNICIAN Hospital Encounter Department of Radiology, [facility], in [place], [place] [address] [place] [address] Eli Morin M.B., B.Ch. Gastroesophageal Reflux Disease Without Esophagitis Discharge Disposition: Home or Self Care 0 11:30 AM MASTER CERTIFIED RV TECHNICIAN Anticoagulation Visit Department of Anticoagulation in [place], [place] [address] [place] [address] Jeffrey Garay P.A.-C. Monitoring For Therapeutic Drug Therapy; Garment Sorter Anticoagulant Treatment; Atrial Fibrillation Paroxysmal (HCC); Thrombosis Deep Vein Acute Calf Right (HCC) 0 Remote Monitoring Remote Patient Monitoring [facility] [address] [place] [address] Marlee Fowler Complex Care Coordination (Septembering) 0 Clinical Communication Division of Pulmonary Medicine in [place], [place] [address] [place] [address] Eli Morin M.B., B.Ch. 0 11:53 AM MASTER CERTIFIED RV TECHNICIAN - 0 11:59 PM MASTER CERTIFIED RV TECHNICIAN Hospital Encounter Department of Radiology, [facility], in [place], [place] [address] [place] [address] Eli Morin M.B., B.Ch. Respiratory Infection Type Unknown Due To COVID-19; Cough; Other Dyspnea Discharge Disposition: Home or Self Care 0 1:30 PM MASTER CERTIFIED RV TECHNICIAN Comprehensive Visit Division of Pulmonary Medicine in [place], [place] [address] [place] [address] Eli Morin M.B., B.Ch. Gastroesophageal Reflux Disease Without Esophagitis (Primary Dx); Respiratory Infection Type Unknown Due To COVID-19; Bronchitis Chronic (HCC); Cough; Other Dyspnea 0 3:00 PM MASTER CERTIFIED RV TECHNICIAN Virtual Visit Department of Cardiovascular Medicine in [place], [place] [address] [place] [phone] Ap Buckley M.D., Ph.D. Atrial Fibrillation Paroxysmal (HCC) 0 1:30 PM MASTER CERTIFIED RV TECHNICIAN Anticoagulation Visit Department of Anticoagulation in [place] [address] [place] [phone] Telly Gaines M.D. Atrial Fibrillation Paroxysmal (HCC); Garment Sorter Anticoagulant Treatment; Monitoring For Therapeutic Drug Therapy; Thrombosis Deep Vein Acute Calf Right (HCC) 0 Remote Monitoring Remote Patient Monitoring [facility] [address] [place] [address] Nedra Boyd Complex Care Coordination (Augusting) 0 9:15 AM MASTER CERTIFIED RV TECHNICIAN Anticoagulation Visit Department of Anticoagulation in [address] [place] [address] Jeffrey Garay P.A.-C. Garment Sorter Anticoagulant Treatment (Primary Dx); Monitoring For Therapeutic Drug Therapy; Atrial Fibrillation Paroxysmal (HCC); Thrombosis Deep Vein Acute Calf Right (HCC) 0 Orders Only Department of [facility], [facility], in [place], [place] [address] [place] [address] Telly Gaines M.D. Cough (Primary Dx) 0 Patient Self-Triage [facility] Symptom [employer] Cane Farm Manager, Provider 0 Patient Self-Triage [facility] Symptom [employer] Cane Farm Manager, Provider 0 Patient Self-Triage [facility] Symptom [employer] Farm Manager, Provider 0 Remote Monitoring Remote Patient Monitoring [facility] [address] [place] [address] Bridget Fairbanks, R.N. COVID-19 Remote Patient Monitoring 0 Remote Monitoring Remote Patient Monitoring [facility] [address] [place] [address] Hannah Crook 0 1:45 PM MASTER CERTIFIED RV TECHNICIAN Anticoagulation Visit Department of Anticoagulation in [place], [place] [address] [place] [address] Telly Gaines M.D. Atrial Fibrillation Paroxysmal (HCC); Detention Anticoagulant Treatment; Monitoring For Therapeutic Drug Therapy; Thrombosis Deep Vein Acute Calf Right (HCC) 0 Remote Monitoring Remote Patient Monitoring [facility] [address] [place] [address] Bridget Fairbanks, R.N. COVID-19 Remote Patient Monitoring; Symptom Assessment 0 Remote Monitoring Remote Patient Monitoring [facility] [address] [place] [address] Aileen Hayward, R.N. COVID-19 Remote Patient Monitoring; Symptom Assessment 0 2:45 PM MASTER CERTIFIED RV TECHNICIAN Anticoagulation Visit Department of Anticoagulation in [place], [place] [address] [place] [address] Telly Gaines M.D. Atrial Fibrillation Paroxysmal (HCC); Detention Anticoagulant Treatment; Monitoring For Therapeutic Drug Therapy; Thrombosis Deep Vein Acute Calf Right (HCC) 0 Remote Monitoring Remote Patient Monitoring [facility] [address] [place] [address] Marlee Fowler Complex Care Coordination (August) 0 Remote Monitoring Remote Patient Monitoring [facility] [address] [place] [address] Ese Sanchez COVID-19 Remote Patient Monitoring; Symptom Assessment 0 8:30 AM CDT Clinical Communication Department of [facility], [place], [place] [address] [place] [address] Telly Gaines M.D. COVID-19 Remote Patient Monitoring (Discussed progress and recent labs and INR - can call me directly over the weekend) 0 Orders Only Department of [facility], [place], [place] [address] [place] [address] Telly Gaines M.D. Detention Anticoagulant Treatment (Primary Dx); COVID-19 Infection 0 Remote Monitoring Remote Patient Monitoring [facility] [address] [place] [address] Lani Glasgow R.N. COVID-19 Remote Patient Monitoring; Symptom Assessment 0 1:00 PM CDT Anticoagulation Visit Department of Anticoagulation in [place], [place] [address] [place] [address] Telly Gaines M.D. Atrial Fibrillation Paroxysmal (HCC); Garment Sorter Anticoagulant Treatment; Monitoring For Therapeutic Drug Therapy; Thrombosis Deep Vein Acute Calf Right (HCC) 0 11:40 AM CDT - 0 11:59 PM CDT Hospital Encounter Department of Laboratory Medicine in [place], [place] [address], [place] [address] Telly Gaines M.D. Atrial Fibrillation Paroxysmal (HCC); Garment Sorter Anticoagulant Treatment; Monitoring For Therapeutic Drug Therapy; Thrombosis Deep Vein Acute Calf Right (HCC); Viral Syndrome; Anemia; Pneumonia Due To COVID-19 Discharge Disposition: Home or Self Care 0 4:15 PM CDT Anticoagulation Visit Department of Anticoagulation in [place], [place] [address] [place] [address] Atrial Fibrillation Paroxysmal (HCC); Garment Sorter Anticoagulant Treatment; Monitoring For Therapeutic Drug Therapy; Thrombosis Deep Vein Acute Calf Right (HCC) 0 Remote Monitoring Remote Patient Monitoring [facility] [address] [place] [address] Alivia Garcia, R.N. COVID-19 Remote Patient Monitoring; Follow-up 0 3:00 PM CDT Virtual Visit Department of Family [facility], [place], [place] [address] [place] [address] Telly Gaines M.D. Viral Syndrome (Primary Dx); Anemia; Pneumonia Due To COVID-19 0 Remote Monitoring [facility] [address] [place] [address] Ese Juarez R.Alli COVID-19 Remote Patient Monitoring; Symptom Assessment 0 Refill Department of [facility], [facility] in [place], [place] [address] [place] [address] Telly Gaines M.D. Med Refill 0 Remote Monitoring Remote Patient Monitoring [facility] [address] [place] [address] Ese Sanchez 0 Clinical Communication [facility]ST [facility] [address] [place] [address] Kanchan Varela PHarmonyA.-C., M.S. Post Hospital Follow-up 0 11:15 AM CDT Internal E-Consult Division of General Internal Medicine in [place], [place] [address] [place] [address] Kanchan Varela P.A.-C., M.S. Sarah Woods M.D. COVID-19 Infection 0 Orders Only Department of Anticoagulation in [place], [place] [address] [place] [address] Lanette Baird Thrombosis Deep Vein Acute Calf Right (HCC) (Primary Dx); Atrial Fibrillation Paroxysmal (HCC); Monitoring For Therapeutic Drug Therapy; Garment Sorter Anticoagulant Treatment 0 Clinical Communication RST [facility] [address] [place] [address] Kanchan Varela P.A.-C., M.S. Pre-visit Testing Orders 0 Clinical Communication RST [facility] [address] [place] [address] Kanchan Varela P.A.-C., M.S. Post Hospital Follow-up 0 12:18 AM CDT - 0 2:23 PM CDT Emergency [facility], [facility], Sixth Floor [address] [place] [address] Yuniel Garner M.D., Ph.D. Matthew Yip M.D. Ronaldo Curry M.D., M.S. COVID-19 Infection (Primary Dx); Pneumonia Due To COVID-19; Dehydration; Garment Sorter Anticoagulant Treatment; Atrial Fibrillation Paroxysmal (HCC); Depression Major Recurrent (HCC); Thrombosis Deep Vein Acute Calf Right (HCC); Monitoring For Therapeutic Drug Therapy Discharge Disposition: Home or Self Care 0 Intake [facility] 0 Remote Monitoring Remote Patient Monitoring [facility] [address] [place] [address] Elenita Borrero, R.N. COVID-19 Remote Patient Monitoring 0 Remote Monitoring Remote Patient Monitoring [facility] [address] [place] [address] Collette Eldridge, R.N. COVID-19 Remote Patient Monitoring; Symptom Assessment 0 Remote Monitoring Remote Patient Monitoring [facility] [address] [place] [address] Arely Bryant, R.N. COVID-19 Remote Patient Monitoring; Symptom Assessment 0 Remote Monitoring Remote Patient Monitoring [facility] [address] [place] [address] Yocasta Contreras R.N. COVID-19 Remote Patient Monitoring; Follow-up 0 Documentation Remote Patient Monitoring [facility] [address] [place] [address] Jak Fordsunil Darnell 0 Remote Monitoring Remote Patient Monitoring [facility] [address] [place] [address] Rayne Mederos R.N. COVID-19 Remote Patient Monitoring; Vital Sign Readings 0 Remote Monitoring Remote Patient Monitoring [facility] [address] [place] [address] Justina Dominguez R.N. COVID-19 Remote Patient Monitoring; Symptom Assessment 0 Remote Monitoring Remote Patient Monitoring [facility] [address] [place] [address] Raquel Fairbanks R.N. COVID-19 Remote Patient Monitoring; Symptom Assessment 0 Remote Monitoring Remote Patient Monitoring [facility] [address] [place] [address] Rosenda David RNICK Álvarez COVID-19 Remote Patient Monitoring; Symptom Assessment 0 Remote Monitoring Remote Patient Monitoring [facility] [address] [place] [address] Nicole Zepeda R.N. COVID-19 Remote Patient Monitoring; Intake Assessment 0 Remote Monitoring Remote Patient Monitoring [facility] [address] [place] [address] Radha Nascimento COVID-19 Remote Patient Monitoring; Welcome Call; Patient Education (COVID Complex Care packet, Welcome letter and Service Terms agreement mailed ) 0 Remote Monitoring Remote Patient Monitoring [facility] [address] [place] [address] Radha Nascimento COVID-19 Remote Patient Monitoring; Welcome Call 0 Episode Changes Remote Patient Monitoring [facility] [address] [place] [address] Ruth Cristina, RHDS 0 Remote Monitoring Remote Patient Monitoring [facility] [address] [place] [address] Radha Newton R.N. COVID-19 Remote Patient Monitoring 0 Virtual Visit Division of General Internal Medicine in [place], [place] [address] [place] [address] César Paris M.B., Ch.B. COVID-19 Infection (Primary Dx) 10/19/202 0 Clinical Communication Department of Anticoagulation in [place], [place] [address] [place] [address] Telly Gaines M.D. Anticoagulation (INR recheck) 0 Clinical Communication Division of [facility], [place], [place] [address] [place] [address] Lani Maldonado RPreeti COVID Nurse Line 0 Clinical Communication Division of [facility], [place], [place] [address] [place] [address] Hannah Cota R.N. COVID Nurse Line 0 Clinical Communication Division of [facility], [place], [place] [address] [place] [address] Zeinab Grossman RPreeti COVGILLES Nurse Line 0 9:42 AM CDT - 0 1:09 PM CDT Emergency [facility] Emergency Department [address] [place] [address] Ap Laws M.D. Cough (Primary Dx); Hoarseness Discharge Disposition: Home or Self Care 0 1:30 PM CDT Telemedicine Department of Family Medicine, [facility], in [place], [place] [address] [place] [address] Adan Keenan M.D. Cough (Primary Dx) 0 9:00 AM CDT Anticoagulation Visit Department of Anticoagulation in [place], [place] [address] [place] [address] Jeffrey Garay P.A.-C. Monitoring For Therapeutic Drug Therapy (Primary Dx); Thrombosis Deep Vein Acute Calf Right (HCC); Garment Sorter Anticoagulant Treatment; Atrial Fibrillation Paroxysmal (HCC) 0 2:15 PM CDT Anticoagulation Visit Department of Anticoagulation in [place], [place] [address] [address] Jeffrey Garay P.A.-C. Thrombosis Deep Vein Acute Calf Right (HCC); Monitoring For Therapeutic Drug Therapy; Detention Anticoagulant Treatment; Atrial Fibrillation Paroxysmal (HCC) 0 1:00 PM CDT Office Visit Urgent Care in [address] [address] Mason Mari P.A.-CHarmony, P.A. Cough 0 External Outreach Department of Internal Medicine in [address] [address] Sameer Bowman D.O. Infection Upper Respiratory (Primary Dx) Discharge Disposition: Home or Self Care 0 Orders Only Urgent Care in [address] [address] Mason Mari P.A.-C., P.A. Cough (Primary Dx) 0 2:45 PM CDT Anticoagulation Visit Department of Anticoagulation in [address] [address] Jeffrey Garay P.A.-CHarmony Thrombosis Deep Vein Acute Calf Right (HCC); Monitoring For Therapeutic Drug Therapy; Detention Anticoagulant Treatment; Atrial Fibrillation Paroxysmal (HCC) 0 9:45 AM CDT Anticoagulation Visit Department of Anticoagulation in [address] [address] Jeffrey Garay P.A.-CHarmony Thrombosis Deep Vein Acute Calf Right (HCC); Monitoring For Therapeutic Drug Therapy; Detention Anticoagulant Treatment; Atrial Fibrillation Paroxysmal (HCC) 0 8:45 AM CDT Comprehensive Visit Division of [facility], [facility] in [place] [address] [place] [address] Gaines, VasiliyNayely Farooq Lindsey M, APRN, C.N.P., M.S.N. Lesion Vulva (Primary Dx); Vaginitis 0 Refill Department of [facility], [place], [place] [address] [place] [address] Telly Gaines M.D. Med Refill 0 1:15 PM CDT Anticoagulation Visit Department of Anticoagulation in [place], [place] [address] [place] [address] Jeffrey Garay, P.A.-C. Thrombosis Deep Vein Acute Calf Right (HCC); Monitoring For Therapeutic Drug Therapy; Detention Anticoagulant Treatment; Atrial Fibrillation Paroxysmal (HCC) 0 9:45 AM CDT Anticoagulation Visit Department of Anticoagulation in [place], [place] [address] [place] [address] Jeffrey Garay, P.A.-C. Thrombosis Deep Vein Acute Calf Right (HCC); Monitoring For Therapeutic Drug Therapy; Detention Anticoagulant Treatment; Atrial Fibrillation Paroxysmal (HCC) 0 Clinical Communication Department of Cardiovascular Medicine in [place], [place] [address] [place] [address] Ap Buckley M.D., Ph.D. COVAR Nurse Line 0 2:47 PM CDT - 0 3:19 PM CDT Hospital Encounter Department of Laboratory Medicine and Pathology, [facility] in [place], [place] [address] [place] [address] Telly Gaines M.D. Screening Cancer Colon Discharge Disposition: Home or Self Care 0 3:20 PM CDT - 0 11:59 PM CDT Hospital Encounter Department of Radiology in [place], [place] [address] [place] [address] Telly Gaines M.D. Screening Mammogram Breast Cancer Discharge Disposition: Home or Self Care 0 Orders Only Department of Family Medicine, [facility], in [place], [place] [address] [place] [address] Telly Gaines M.D. Screening Cancer Colon (Primary Dx) 0 9:15 AM CDT Anticoagulation Visit Department of Anticoagulation in [place], [place] [address] [address] Jeffrey Garay, P.A.-CHarmony Thrombosis Deep Vein Acute Calf Right (HCC); Monitoring For Therapeutic Drug Therapy; Detention Anticoagulant Treatment; Atrial Fibrillation Paroxysmal (HCC) 0 Refill [facility], [facility] in [place], [place] [address] [place] [address] Telly Gaines M.D. Med Refill 0 Orders Only [facility] T[facility] M.D. Screening Mammogram Breast Cancer 0 9:15 AM CDT Anticoagulation Visit Department of Anticoagulation in [place], [place] [address] [address] Jeffrey Garay P.A.-CHarmony Thrombosis Deep Vein Acute Calf Right (HCC); Monitoring For Therapeutic Drug Therapy; Garment Sorter Anticoagulant Treatment; Atrial Fibrillation Paroxysmal (HCC) 0 Orders Only Department of Cardiovascular Medicine in [address] [address] Ap Buckley M.D., Ph.D. Atrial Fibrillation (HCC) (Primary Dx) 0 Documentation Department of Cardiovascular Medicine in [address] [address] Ap Buckley M.D., Ph.D. 0 10:20 AM CDT - 0 11:59 PM CDT Hospital Encounter Department of Laboratory Medicine in [place], [place] [address] [place] [address] Ap Buckley M.D., Ph.D. Atrial Fibrillation (HCC) Discharge Disposition: Home or Self Care 0 10:10 AM CDT - 0 10:19 AM CDT Hospital Encounter Department of Laboratory Medicine in [place], [place] [address] [address] Ap Buckley M.D., Ph.D. Atrial Fibrillation (HCC) Discharge Disposition: Home or Self Care 0 Orders Only Department of Cardiovascular Medicine in [place], [place] [address] [place] [address] Ap Buckley M.D., Ph.D. Atrial Fibrillation (HCC) (Primary Dx) 0 Refill [facility], Fourth Floor [address] [place] [address] Ap Buckley M.D., Ph.D. Med Refill 0 Refill Department of Family [facility], [facility], in [place], [place] [address] [place] [address] Telly Gaines M.D. Med Refill 0 2:45 PM CDT Anticoagulation Visit Department of Anticoagulation in [place], [place] [address] [address] Jeffrey Garay, P.A.-C. Atrial Fibrillation Paroxysmal (HCC); Garment Sorter Anticoagulant Treatment; Monitoring For Therapeutic Drug Therapy; Thrombosis Deep Vein Acute Calf Right (HCC) 0 Clinical Communication Department of Anticoagulation in [address] [address] Matilde Cooper R.N. Anticoagulation 0 9:30 AM MASTER CERTIFIED RV TECHNICIAN Anticoagulation Visit Department of Anticoagulation in [address] [address] Jeffrey Garay, P.A.-C. Thrombosis Deep Vein Acute Calf Right (HCC); Monitoring For Therapeutic Drug Therapy; Garment Sorter Anticoagulant Treatment; Atrial Fibrillation Paroxysmal (HCC) 0 9:00 AM MASTER CERTIFIED RV TECHNICIAN Anticoagulation Visit Department of Anticoagulation in [address] [address] Jeffrey Garay P.A.-C. Thrombosis Deep Vein Acute Calf Right (HCC); Monitoring For Therapeutic Drug Therapy; Garment Sorter Anticoagulant Treatment; Atrial Fibrillation Paroxysmal (HCC) 0 10:15 AM MASTER CERTIFIED RV TECHNICIAN Anticoagulation Visit Department of Anticoagulation in [address] [address] Jeffrey Garay P.AHarmony-C. Thrombosis Deep Vein Acute Calf Right (HCC); Monitoring For Therapeutic Drug Therapy; Garment Sorter Anticoagulant Treatment; Atrial Fibrillation Paroxysmal (HCC) 0 10:30 AM MASTER CERTIFIED RV TECHNICIAN Anticoagulation Visit Department of Anticoagulation in [address] [address] Jeffrey Garay P.A.-CHarmony Thrombosis Deep Vein Acute Calf Right (HCC); Monitoring For Therapeutic Drug Therapy; Garment Sorter Anticoagulant Treatment; Fibrillation Atrial Paroxysmal (HCC) 0 11:00 AM MASTER CERTIFIED RV TECHNICIAN Office Visit Department of Family Medicine in [address] [address] Jeffrey Garay P.A.-C. Dysuria (Primary Dx); Urgency Urinary; Neuropathy 9 Refill Department of Anticoagulation in [place], [place] [address] [address] Telly Gaines M.D. Med Refill 9 Refill Department of Anticoagulation in [address] [address] Telly Gaines M.D. Med Refill 9 1:00 PM MASTER CERTIFIED RV TECHNICIAN Anticoagulation Visit Department of Anticoagulation in [address] [address] Jeffrey Garay P.A.-CHarmony Thrombosis Deep Vein Acute Calf Right (HCC); Monitoring For Therapeutic Drug Therapy; Garment Sorter Anticoagulant Treatment; Fibrillation Atrial Paroxysmal (HCC) 9 Refill Department of Anticoagulation in [place], [place] [address] [place] [address] Jeffrey Garay P.A.-C. Med Refill 9 Refill [facility], Fourth Floor [address] [place] [address] Ap Buckley M.D., Ph.D. Med Refill 9 Orders Only Department of Cardiovascular Medicine in [place], [place] [address] [place] [address] Ap Buckley M.D., Ph.D. 9 Refill [facility], Fourth Floor [address] [place] [address] Ap Buckley M.D., Ph.D. Med Refill 9 9:30 AM MASTER CERTIFIED RV TECHNICIAN Anticoagulation Visit Department of Anticoagulation in [address] [address] Jeffrey Garay P.A.-CHarmony Thrombosis Deep Vein Acute Calf Right (HCC); Monitoring For Therapeutic Drug Therapy; Detention Anticoagulant Treatment; Fibrillation Atrial Paroxysmal (HCC) 9 Refill Department of Family Medicine, [facility], in [place], [place] [address] [place] [address] Telly Gaines M.D. Med Refill 9 Orders Only Department of Anticoagulation in [place], [place] [address] [place] [address] Matilde Cooper RPreeti Fibrillation Atrial Paroxysmal (HCC) (Primary Dx); Thrombosis Deep Vein Acute Calf Right (HCC); Detention Anticoagulant Treatment; Monitoring For Therapeutic Drug Therapy 9 9:30 AM CDT Anticoagulation Visit Department of Anticoagulation in [address] [address] Telly Gaines M.D. Thrombosis Deep Vein Acute Calf Right (HCC); Monitoring For Therapeutic Drug Therapy; Detention Anticoagulant Treatment 9 Refill Department of Family Medicine, [place], [place] [address] [place] [address] Telly Gaines M.D. Med Refill 9 10:00 AM CDT Anticoagulation Visit Department of Anticoagulation [address] [address] Telly Gaines M.D. Thrombosis Deep Vein Acute Calf Right (HCC); Monitoring For Therapeutic Drug Therapy; Garment Sorter Anticoagulant Treatment 9 1:15 PM CDT Office Visit Department of Orthopedic Surgery in [place], [place] [address] [place] [phone] Ronaldo Moore M.D. Primary Osteoarthritis Knee Right 9 10:42 AM CDT - 9 11:59 PM CDT Hospital Encounter Department [place] [address] [place] [address] Storm Iqbal P.A.-C., M.S. Fibrillation Atrial Paroxysmal (HCC); Primary Osteoarthritis Knee Right; Hyperlipidemia Discharge Disposition: Home or Self Care 9 12:00 PM CDT Education Department of Orthopedic Surgery in [place], [place] [address] [place] [address] Storm Iqbal P.A.-C., M.S. Primary Osteoarthritis Knee Right 9 Clinical Communication Department of Family Medicine in [place], [place] [address] [place] [address] Maci Velasco Pharm.D., R.Ph., [facility] 9 9:10 AM CDT - 9 9:19 AM CDT Hospital Encounter Department of Laboratory Medicine and Pathology, [facility] in [place], [place] [address] [place] [address] Storm Iqbal P.A.-C., M.S. Primary Osteoarthritis Knee Right Discharge Disposition: Home or Self Care 9 9:20 AM CDT - 9 11:59 PM CDT Hospital Encounter Department of Laboratory Medicine and Pathology, [place], [place] [address] [place] [address] Storm Iqbal P.A.-C., M.S. Primary Osteoarthritis Knee Right Discharge Disposition: Home or Self Care 9 8:30 AM CDT Office Visit Department of Family Medicine, [facility] in [place], [place] [address] [place] [address] Telly Gaines M.D. Viral Syndrome (Primary Dx); Thrombosis Deep Vein Acute Calf Right (HCC); Sleep Apnea; Primary Osteoarthritis Knee Right; Metabolizer CY Poor; Metabolizer CYP2D6 Rapid; Maintenance Health Adult; Garment Sorter Anticoagulant Treatment; Hypertensive Heart Disease With Heart Failure (HCC); Hyperlipidemia; Depression Major Recurrent (HCC) 9 Clinical Communication Department of Orthopedic Surgery in [place], [place] [address] [place] [address] Ronnie Chi R.N. dismissal planning 9 10:00 AM CDT Anticoagulation Visit Department of Anticoagulation [place], [place] [address] [place] [address] Telly Gaines M.D. Thrombosis Deep Vein Acute Calf Right (HCC); Monitoring For Therapeutic Drug Therapy; Detention Anticoagulant Treatment 9 Documentation Department of Cardiovascular Medicine in [place], [place] [address] [place] [address] Ap Buckley M.D., Ph.D. 9 Orders Only Department of Cardiovascular Medicine in [place], [place] [address] [place] [address] Ap Buckley M.D., Ph.D. 9 Clinical Communication Department of Family Medicine, [facility], in [place], [place] [address] [place] [address] Telly Gaines M.D. Appointment (Billy order) 9 9:30 AM CDT Anticoagulation Visit Department of Anticoagulation in [address] [address] Jeffrey Garay P.A.-C. Fibrillation Atrial (HCC); Monitoring For Therapeutic Drug Therapy; Detention Anticoagulant Treatment; Anticoagulant Therapy; Thrombosis Deep Vein Acute Calf Right (HCC) 9 10:38 AM CDT - 9 11:59 PM CDT Hospital Encounter Department of Radiology in [place], [place] [address] [place] [address] Oxana Boone APRN, C.N.P., M.S. Pain Breast Discharge Disposition: Home or Self Care 9 9:35 AM CDT - 9 10:37 AM CDT Hospital Encounter Department of Radiology in [place], [place] [address] [place] [phone] Oxana Boone APRN, C.N.P., M.S. Pain Breast Discharge Disposition: Home or Self Care 9 1:30 PM CDT Office Visit Department of [facility], [place], [place] [address] [place] [phone] Oxana Boone APRN, C.N.P., M.S. Pain Breast (Primary Dx); Sleep Apnea 9 Nurse Triage Department of [facility], [place], [place] [address] [place] [address] Charisma Romero M.S.N., R.N. 9 Orders Only [facility] [place] Telly Gaines M.D. Hyperlipidemia 9 9:15 AM CDT Anticoagulation Visit Department of Anticoagulation in [address] [address] Telly Gaines M.D. Thrombosis Deep Vein Acute Calf Right (HCC); Monitoring For Therapeutic Drug Therapy; Detention Anticoagulant Treatment 9 Clinical Communication Department of [facility], [facility] in [place], [place] [address] [place] [phone] Telly Gaines M.D. Appointment (billy) 9 9:00 AM CDT Anticoagulation Visit Department of Anticoagulation in [place], [place] [address] [place] [address] Jeffrey Garay P.A.-C. Fibrillation Atrial (HCC); Monitoring For Therapeutic Drug Therapy; Detention Anticoagulant Treatment; Anticoagulant Therapy; Thrombosis Deep Vein Acute Calf Right (HCC) 9 Orders Only Department of Orthopedic Surgery in [place], [place] [address] [place] [phone] Storm Iqbal P.A.-C., M.S. Primary Osteoarthritis Knee Right (Primary Dx) 9 Clinical Communication Department of Orthopedic Surgery in [place], [place] [address] [place] [phone] Ronaldo Moore M.D. schedule surgery (right total knee arthroplasty ); Communication [address] [facility] in [place], [place] [address] [place] [phone] Telly Gaines M.D. Med Refill 9 10:55 AM CDT - 9 11:13 AM CDT [facility] [place], [place] [address] [place] [phone] Ap Buckley M.D., Ph.D. Pain Chest Discharge Disposition: Home or Self Care 9 4:00 PM CDT Office Visit Department of Cardiovascular Medicine in [place], [place] [address] [place] [phone] Ap Buckley M.D., Ph.D. Fibrillation Atrial Paroxysmal (HCC) (Primary Dx) 9 12:28 PM CDT - 9 1:49 PM CDT Hospital Encounter Department of Radiology, [facility], in [place], [place] [address] [place] [address] Ap Buckley M.D., Ph.D. Discharge Disposition: Home or Self Care 9 12:20 PM CDT - 9 12:27 PM CDT Hospital Encounter Department of Cardiovascular Diseases in [place], [place] [address] [place] [phone] Ap Buckley M.D., Ph.D. Discharge Disposition: Home or Self Care 9 11:14 AM CDT - 9 12:19 PM CDT Hospital Encounter Department of Radiology, [facility], in [place], [place] [address] [place] [address] Ap Buckley M.D., Ph.D. Other Heart Disorders In Diseases Classified Elsewhere Discharge Disposition: Home or Self Care 9 1:50 PM CDT - 9 11:59 PM CDT Hospital Encounter Department of Cardiovascular Diseases in [place], [place] [address] [place] [address] Ap Buckley M.D., Ph.D. Pain Chest Discharge Disposition: Home or Self Care 9 11:40 AM CDT - 9 11:59 PM CDT Hospital Encounter Department of Laboratory Medicine and Pathology, [facility] in [place], [place] [address] [place] [phone] Ap Buckley M.D., Ph.D. Fibrillation Atrial (HCC) Discharge Disposition: Home or Self Care 9 11:00 AM CDT - 9 11:39 AM CDT Hospital Encounter Department of Cardiovascular Diseases in [place], [place] [address] [place] [phone] Ap Buckley M.D., Ph.D. Pain Chest Discharge Disposition: Home or Self Care 9 9:30 AM CDT Anticoagulation Visit Department of Anticoagulation in [address] [address] Telly Gaines M.D. Thrombosis Deep Vein Acute Calf Right (HCC); Monitoring For Therapeutic Drug Therapy; Garment Sorter Anticoagulant Treatment 9 3:45 PM CDT Anticoagulation Visit Department of Anticoagulation in [place], [place] [address] [place] [address] Telly Gaines M.D. Thrombosis Deep Vein Acute Calf Right (HCC); Monitoring For Therapeutic Drug Therapy; Garment Sorter Anticoagulant Treatment 9 Orders Only Department of Cardiovascular Medicine in [address] [address] Ap Buckley M.D., Ph.D. Fibrillation Atrial (HCC) (Primary Dx); Other Heart Disorders In Diseases Classified Elsewhere; Pain Chest 9 3:00 PM CDT Office Visit Department of Cardiovascular Medicine in [address] [address] Ap Buckley M.D., Ph.D. Fibrillation Atrial Paroxysmal (HCC) (Primary Dx) 9 10:30 AM CDT Comprehensive Visit Department of Orthopedic Surgery in [place], [place] [address] [place] [address] Ronaldo Moore M.D. Primary Osteoarthritis Knee Right 9 Clinical Communication Department of [facility], [facility], in [place], [place] [address] [place] [address] Telly Gaines M.D. Med Question (billy/pharamcy call) 9 Clinical Communication Department of Cardiovascular Medicine in [address] [address] Ap Buckley M.D., Ph.D. 9 2:00 PM CDT Anticoagulation Visit Department of Anticoagulation in [place], [place] [address] [place] [address] Jeffrey Garay P.A.-C. Fibrillation Atrial (HCC); Monitoring For Therapeutic Drug Therapy; Detention Anticoagulant Treatment; Anticoagulant Therapy; Thrombosis Deep Vein Acute Calf Right (HCC) 9 Orders Only [facility] [address], CHET [address] [phone] Winifred Moran 9 1:00 PM MASTER CERTIFIED RV TECHNICIAN Anticoagulation Visit Department of Anticoagulation in [address] [address] Telly Gaines M.D. Thrombosis Deep Vein Acute Calf Right (HCC); Monitoring For Therapeutic Drug Therapy; Detention Anticoagulant Treatment 9 Orders Only Department of Cardiovascular Medicine in [address] [address] Ap Buckley M.D., Ph.D. 9 Orders Only Department of Cardiovascular Medicine in [address] [address] Ap Buckley M.D., Ph.D. 9 11:10 AM MASTER CERTIFIED RV TECHNICIAN Ancillary Procedure Department of Internal Medicine 9 Anticoagulation Visit Department of Anticoagulation in [address] [address] Tamela Barrett, PharmHarmonyD., R.Ph. Detention Anticoagulant Treatment; Monitoring For Therapeutic Drug Therapy; Thrombosis Deep Vein Acute Calf Right (HCC) 9 11:30 AM MASTER CERTIFIED RV TECHNICIAN Procedure visit Division of [facility], [facility], in [place], [place] [address] [place] [phone] Ian Bocanegra M.D. Rotator Cuff Disorder Right 9 10:15 AM MASTER CERTIFIED RV TECHNICIAN Comprehensive Visit Department of Orthopedic Surgery in [place], [place] [address] [place] [phone] Yocasta Contreras P.ADerek. Primary Osteoarthritis Shoulder Right (Primary Dx); Pain Shoulder Right; Tear Rotator Cuff Initial Right 9 Clinical Communication Department of Cardiovascular Medicine in [place], [place] [address] [place] [address] Raquel Price M.S.N., R.N. Pharmacy Safety Letter 9 11:23 AM MASTER CERTIFIED RV TECHNICIAN - 9 11:59 PM MASTER CERTIFIED RV TECHNICIAN Hospital Encounter Department of Radiology, [place], [place] [address] [place] [phone] Telly Gaines M.D. Primary Osteoarthritis Knee Right; Rotator Cuff Disorder Right Discharge Disposition: Home or Self Care 9 10:30 AM MASTER CERTIFIED RV TECHNICIAN Office Visit Department of Family Medicine, [place], [place] [address] [place] [phone] Telly Gaines M.D. Primary Osteoarthritis Knee Right (Primary Dx); Rotator Cuff Disorder Right; Preoperative Exam; Sleep Apnea; Maintenance Health Adult; Hypertensive Heart Disease With Heart Failure (HCC); Hyperlipidemia; Detention Anticoagulant Treatment 9 9:15 AM MASTER CERTIFIED RV TECHNICIAN Anticoagulation Visit Department of Anticoagulation in [address] [address] Telly Gaines M.D. Thrombosis Deep Vein Acute Calf Right (HCC); Monitoring For Therapeutic Drug Therapy; Detention Anticoagulant Treatment 9 11:00 AM MASTER CERTIFIED RV TECHNICIAN Anticoagulation Visit Department of Anticoagulation in [address] [address] Telly Gaines M.D. Thrombosis Deep Vein Acute Calf Right (HCC); Monitoring For Therapeutic Drug Therapy; Garment Sorter Anticoagulant Treatment 9 Refill Department of Family Medicine, [place], [place] [address] [place] [phone] Telly Gaines M.D. Med Refill 8 Refill [facility], Fourth Floor [address] [place] [phone] Katty Jain P.A.-C., M.S. Med Refill 8 2:15 PM MASTER CERTIFIED RV TECHNICIAN Anticoagulation Visit Department of Anticoagulation in [address] [address] Jeffrey Garay P.A.-C. Fibrillation Atrial (HCC); Monitoring For Therapeutic Drug Therapy; Garment Sorter Anticoagulant Treatment; Anticoagulant Therapy; Thrombosis Deep Vein Acute Calf Right (HCC) 8 Anticoagulation Visit Department of Anticoagulation in [place], [place] [address] [address] Matilde Cooper R.N. Detention Anticoagulant Treatment; Monitoring For Therapeutic Drug Therapy; Thrombosis Deep Vein Acute Calf Right (HCC) 8 Clinical Communication Department of Family [facility], [facility] in [place], [place] [address] [place] [address] Telly Gaines M.D. 8 9:47 AM MASTER CERTIFIED RV TECHNICIAN - 8 11:59 PM MASTER CERTIFIED RV TECHNICIAN Hospital Encounter Department of Laboratory Medicine and Pathology, [place], [place] [address] [place] [phone] Ap Buckley M.D., Ph.D. Fibrillation Atrial (HCC) Discharge Disposition: Home or Self Care 8 3:00 PM MASTER CERTIFIED RV TECHNICIAN Office Visit Department of Cardiovascular Medicine in [place], [place] [address] [place] [address] Ap Buckley M.D., Ph.D. Fibrillation Atrial (HCC) (Primary Dx) 8 9:30 AM MASTER CERTIFIED RV TECHNICIAN Anticoagulation Visit Department of Anticoagulation in [address] [address] Telly Gaines M.D. Thrombosis Deep Vein Acute Calf Right (HCC); Monitoring For Therapeutic Drug Therapy; Garment Sorter Anticoagulant Treatment 8 11:00 AM MASTER CERTIFIED RV TECHNICIAN Anticoagulation Visit Department of Anticoagulation in [address] [address] Jeffrey Garay P.A.-CHarmony Fibrillation Atrial (HCC); Monitoring For Therapeutic Drug Therapy; Garment Sorter Anticoagulant Treatment; Anticoagulant Therapy; Thrombosis Deep Vein Acute Calf Right (HCC) 8 1:15 PM MASTER CERTIFIED RV TECHNICIAN Anticoagulation Visit Department of Anticoagulation in [place], [place] [address] [place] [facility] [place] [address] Telly Gaines M.D. Garment Sorter Anticoagulant Treatment; Monitoring For Therapeutic Drug Therapy; Thrombosis Deep Vein Acute Calf Right (HCC) 8 Orders Only Department of Family Medicine, [facility], in [place], [place] [address] [place] [address] Jeffrey Garay P.A.-CHarmony 8 Clinical Communication Department of Family Medicine, [facility], in [place], [place] [address], [place] [address] Telly Gaines M.D. 8 11:00 AM MASTER CERTIFIED RV TECHNICIAN Anticoagulation Visit Department of Anticoagulation in [place], [place] [address] [place] [address] Telly Gaines M.D. Monitoring For Therapeutic Drug Therapy (Primary Dx); Thrombosis Deep Vein Acute Calf Right (HCC); Garment Sorter Anticoagulant Treatment 8 1:00 PM MASTER CERTIFIED RV TECHNICIAN Anticoagulation Visit Department of Anticoagulation in [address] [phone] Jeffrey Garay P.A.-CHarmony Fibrillation Atrial (HCC); Monitoring For Therapeutic Drug Therapy; Detention Anticoagulant Treatment; Anticoagulant Therapy; Thrombosis Deep Vein Acute Calf Right (HCC) 8 Clinical Communication Department of Anticoagulation in [place], [place] [address] [place] [facility] [place] [address] Lani Malhotra-O (follow up) 8 9:54 AM MASTER CERTIFIED RV TECHNICIAN - 8 11:59 PM MASTER CERTIFIED RV TECHNICIAN Hospital Encounter Department of Laboratory Medicine in [address] [address] Jeffrey Garay P.A.-CHarmony Fibrillation Atrial (HCC); Monitoring For Therapeutic Drug Therapy; Garment Sorter Anticoagulant Treatment; Anticoagulant Therapy; Thrombosis Deep Vein Acute Calf Right (HCC) Discharge Disposition: Home or Self Care 8 9:00 AM CDT Office Visit [facility] in [place], [place] [address] [place] [address] Alexus Chatman M.D. Apnea Sleep Obstructive (Primary Dx); Insomnia; Fatigue; Restless Leg Syndrome 8 7:45 AM CDT Diagnostic [facility] in [place], [place] [address] [place] [address] Alexus Chatman M.D. 8 Orders Only Department of Anticoagulation in [place], [place] [address] [place] [address] Debbi Marsh RPreeti Thrombosis Deep Vein Acute Calf Right (HCC) (Primary Dx); Monitoring For Therapeutic Drug Therapy; Garment Sorter Anticoagulant Treatment 8 Orders Only Department of Anticoagulation in [place], [place] [address], [place] [address] Matilde Cooper RPreeti Thrombosis Deep Vein Acute Calf Right (HCC) (Primary Dx); Garment Sorter Anticoagulant Treatment; Monitoring For Therapeutic Drug Therapy 8 5:00 PM CDT [facility] in [place], [place] [address] [place] [address] Alexus Chatman M.D. Apnea Sleep Obstructive 8 9:15 AM CDT Anticoagulation Visit Department of Anticoagulation in [place], [place] [address] [place] [address] Jeffrey Garay, PHarmonyAKellee Fibrillation Atrial (HCC); Monitoring For Therapeutic Drug Therapy; Garment Sorter Anticoagulant Treatment; Anticoagulant Therapy; Thrombosis Deep Vein Acute Calf Right (HCC) 8 10:30 AM CDT Office Visit [facility] in [place], [place] [address] [place] [address] Alexus Chatman M.D. Apnea Sleep Obstructive (Primary Dx); Snoring; Fatigue; Sleep Disorder 8 Clinical Communication Department of Cardiovascular Medicine in [place], [place] [address] [place] [address] Ap Buckley M.D., Ph.D. 8 Clinical Communication Department of Cardiovascular Medicine in [place], [place] [address] [place] [phone] Ap Buckley M.D., Ph.D. 8 Orders Only Department of Cardiovascular Medicine in [place], [place] [address] [place] [address] Ap Buckley M.D., Ph.D. 8 11:45 AM CDT Nurse Only Department of Family Medicine in [address] [address] Federico Oliveros, MilagroPHarmonyN. 8 Clinical Communication Department of Cardiovascular Medicine in [place], [place] [address] [place] [address] Ap Buckley M.D., Ph.D. 8 Clinical Communication Department of Cardiovascular Medicine in [place], [place] [address] [place] [phone] Ap Buckley M.D., Ph.D. 8 Clinical Communication Department of Cardiovascular Medicine in [place], [place] [address] [place] [phone] Ap Buckley M.D., Ph.D. Med Question 8 2:00 PM CDT Office Visit Department of Cardiovascular Medicine in [place], [place] [address] [place] [phone] Ap Buckley M.D., Ph.D. Fibrillation Atrial (HCC) (Primary Dx) 8 Anticoagulation Visit Department of Anticoagulation in [place], [place] [address] [place] [address] Ileana Zurita R.N. Anticoagulant Therapy; Fibrillation Atrial (HCC); Detention Anticoagulant Treatment 8 Clinical Communication Department of Family Medicine, [facility], in [place], [place] [address] [place] [phone] Mabel Joya R.N. Post Hospital Follow-up 8 8:56 AM CDT - 8 11:59 PM CDT Hospital Encounter Department of Laboratory Medicine in [address] [address] Jeffrey Garay, P.A.-C. Anticoagulant Therapy; Monitoring For Therapeutic Drug Therapy; Fibrillation Atrial (HCC) Discharge Disposition: Home or Self Care 8 [facility] in [place], [place] [address] [place] [phone] Alexus Chatman M.D. 8 Clinical Communication Department of Anticoagulation in [place], [place] [address] [place] [address] Ximena Fairbanks, [facility]-- discharge 8 10:15 AM CDT Anticoagulation Visit Department of Anticoagulation in [address] [address] Jeffrey Garay, P.A.-C. Fibrillation Atrial (HCC); Monitoring For Therapeutic Drug Therapy; Garment Sorter Anticoagulant Treatment; Anticoagulant Therapy 8 2:21 PM CDT - 8 8:23 PM CDT Hospital Encounter [facility], Fourth Floor [address] [place] [address] Robin Guevara M.D. Fibrillation Atrial (HCC) (Primary Dx) Discharge Disposition: Home or Self Care 8 11:00 AM CDT Office Visit Department of Family Medicine, [facility], in [place], [place] [address] [place] [address] Telly Gaines M.D. Maintenance Health Adult (Primary Dx); Sleep Apnea; Fibrillation Atrial (HCC) 8 Orders Only Department of Cardiovascular Medicine in [place], [place] [address] [place] [address] Ap Buckley M.D., Ph.D. Fibrillation Atrial (HCC) (Primary Dx) 8 4:06 PM CDT Anesthesia Event [facility], Fourth Floor [address] [place] [phone] Ap Redman APRN, SURGICAL SERVICES DIRECTOR, MNA, R.N. 8 Clinical Communication Department of Family Medicine, [facility], in [place], [place] [address] [place] [address] Telly Gaines M.D. 8 Clinical Communication [facility] [address] [place] [phone] Radha Lomeli APRN, C.N.P., M.S. Pre-visit Testing Orders 8 7:46 AM CDT - 8 7:02 PM CDT Hospital Encounter [facility], Fourth Floor [address] [place] [phone] Helder Pop M.D. Shiv Vnace M.D. Tilbury, R. Thomas, M.D. Wiley, Brandon M, M.D. Fibrillation Atrial (HCC) (Primary Dx) Discharge Disposition: Home or Self Care 8 9:00 AM CDT Anticoagulation Visit Department of Anticoagulation in [address] [address] Jeffrey Garay, PRomario.-Mari. Fibrillation Atrial (HCC); Monitoring For Therapeutic Drug Therapy; Detention Anticoagulant Treatment; Anticoagulant Therapy 8 Clinical Communication Department of Family Medicine, [facility], in [place], [place] [address] [place] [phone] Evan Armendariz P.A.-C. Communication 8 Orders Only Department of Orthopedic Surgery in [place], [place] [address] [place] [phone] Evan Armendariz P.A.-C. 8 10:24 AM CDT - 8 11:59 PM CDT Hospital Encounter Department of Radiology in [place], [place] [address] [place] [phone] Evan Armendariz P.A.-C. Primary Osteoarthritis Knee Right Discharge Disposition: Home or Self Care 8 11:00 AM CDT Comprehensive Visit Department of Orthopedic Surgery in [place], [place] [address] [place] [phone] Evan Armendariz P.A.-C. Primary Osteoarthritis Knee Right (Primary Dx) 8 Nurse Triage Department of Family Medicine, [facility], in [place], [place] [address] [place] [address] Nedra Singleton, RPreeti 8 Orders Only Department of Cardiovascular Medicine in [place], [place] [address] [place] [phone] Hannah Hannon, NIKITA, CHarmonyN.P., M.S.N. Fibrillation Atrial (HCC) (Primary Dx) 8 9:30 AM CDT Anticoagulation Visit Department of Anticoagulation in [address] [address] Jeffrey Garay P.A.-C. Fibrillation Atrial (HCC); Monitoring For Therapeutic Drug Therapy; Detention Anticoagulant Treatment; Anticoagulant Therapy 8 Orders Only Department of Family Medicine, [facility], in [place], [place] [address] [place] [address] Telly Gaines M.D. 8 Orders Only Department [facility], [facility], in [place], [place] [address] [place] [address] Telly Gaines M.D. Screening Mammogram Breast Cancer (Primary Dx) 8 10:40 AM CDT - 8 11:59 PM CDT Hospital Encounter Department of Radiology in [place], [place] [address] [place] [address] Telly Gaines M.D. Screening Mammogram Breast Cancer Discharge Disposition: Home or Self Care 8 Refill [facility] [place] [address] [place] [address] Telly Gaines M.D. Med Refill 8 Abstract [place], [place] [address] [place] [address] Provider, Historical 8 Clinical Communication Department of Anticoagulation in [place], [place] [address] [address] Matilde Cooper R.N. Atrial Fibrillation 8 9:00 AM CDT Anticoagulation Visit Department of Anticoagulation in [address] [address] Jeffrey Garay PHarmonyA.-CHarmony Fibrillation Atrial (HCC); Monitoring For Therapeutic Drug Therapy; Garment Sorter Anticoagulant Treatment; Anticoagulant Therapy 8 10:15 AM CDT Office Visit Department of Family Medicine in [address] [address] Jeffrey Garay P.A.-CHarmony Fibrillation Atrial (HCC) (Primary Dx) 8 11:45 AM CDT Anticoagulation Visit Department of Anticoagulation in [address] [address] Jeffrey Garay P.A.-CHarmony Fibrillation Atrial (HCC); Monitoring For Therapeutic Drug Therapy; Garment Sorter Anticoagulant Treatment; Anticoagulant Therapy 8 Orders Only Department of Family Medicine, [facility], in [place], [place] [address] [place] [address] Telly Gaines M.D. Screening Mammogram Breast Cancer 8 Anticoagulation Visit Department of Anticoagulation in [address] [phone] Alisha Elmore, R.N. Anticoagulant Therapy; Monitoring For Therapeutic Drug Therapy; Fibrillation Atrial (HCC); Garment Sorter Anticoagulant Treatment 8 Anticoagulation Visit Department of Anticoagulation in [address] [address] [id number] Alisha Elmore, R.N. Anticoagulant Therapy; Monitoring For Therapeutic Drug Therapy; Fibrillation Atrial (HCC); Detention Anticoagulant Treatment 8 Clinical Communication Department of Anticoagulation in [address] [phone] Alisha Elmore, R.N. Communication 8 Anticoagulation Visit Department of Anticoagulation in [address] [phone] Alisha Elmore, R.N. Anticoagulant Therapy; Monitoring For Therapeutic Drug Therapy; Fibrillation Atrial (HCC); Detention Anticoagulant Treatment 8 8:55 AM [facility] - 8 11:59 PM [facility] Hospital Encounter Department of Laboratory Medicine in [address] [address] Telly Gaines M.D. Anticoagulant Therapy; Monitoring For Therapeutic Drug Therapy; Fibrillation Atrial (HCC) Discharge Disposition: Home or Self Care 8 Orders Only Department of Anticoagulation in [address] [phone] Alisha Elmore, R.N. Monitoring For Therapeutic Drug Therapy (Primary Dx); Garment Sorter Anticoagulant Treatment; Fibrillation Atrial (HCC); Anticoagulant Therapy 8 Clinical Communication Department of Anticoagulation in [place], [place] [address] [place] [address] Matilde Cooper, R.N. Communication 8 9:00 AM MASTER CERTIFIED RV TECHNICIAN Anticoagulation Visit Department of Anticoagulation in [address] [phone] Jeffrey Garay P.A.-C. Fibrillation Atrial (HCC); Monitoring For Therapeutic Drug Therapy; Detention Anticoagulant Treatment; Anticoagulant Therapy 8 Orders Only Department of Family Medicine, [facility], in [address] [address] Jeffrey Garay P.AHarmony-CHarmony 8 10:28 AM MASTER CERTIFIED RV TECHNICIAN - 8 11:59 PM MASTER CERTIFIED RV TECHNICIAN Hospital Encounter Department of Radiology in [address] [phone] Jeffrey Garay P.AHarmony-CHarmony Cough; Fatigue Discharge Disposition: Home or Self Care 8 9:15 AM MASTER CERTIFIED RV TECHNICIAN Office Visit Department of Family Medicine in [address] [phone] Jeffrey Garay P.AHarmony-CHarmony Cough (Primary Dx); Fatigue 8 Orders Only Urgent Care in [place], [place] [address] [address] Indiana Poole M.D. 8 9:30 AM MASTER CERTIFIED RV TECHNICIAN Office Visit Department of Family Medicine in [address] [address] Mariah Wong, NIKITA, C.N.P., R.Jeffrey Lobo P.A.-CHarmony Cough (Primary Dx); Asthma Mild Intermittent With Environmental Exposure To Tobacco Smoke 8 Abstract Department of Family Medicine, [facility], [place], [place] [address] [place] [address] Provider, Historical 8 10:00 AM MASTER CERTIFIED RV TECHNICIAN Office Visit Department of Family Medicine, [facility], in [address] [address] Indiana Poole M.D. Infection Upper Respiratory (Primary Dx); Acute Reactive Otitis Externa Right Ear 8 Nurse Triage Department of Family Medicine, [facility], in [place], [place] [address] [place] [address] Fátima Schneider R.NHarmony 8 8:45 AM MASTER CERTIFIED RV TECHNICIAN Anticoagulation Visit Department of Anticoagulation in [address] [phone] Jeffrey Garay, Eduardo.A.-C. Fibrillation Atrial (HCC); Monitoring For Therapeutic Drug Therapy; Garment Sorter Anticoagulant Treatment; Anticoagulant Therapy 8 Orders Only Department of Anticoagulation in [address] [address] Alisha Elmore, R.N. Monitoring For Therapeutic Drug Therapy (Primary Dx); Fibrillation Atrial (HCC); Detention Anticoagulant Treatment 8 Orders Only Department of Anticoagulation in [address] [phone] Alisha Elmore, R.N. Anticoagulant Therapy; Monitoring For Therapeutic Drug Therapy; Fibrillation Atrial (HCC) 7 Anticoagulation Visit Department of Anticoagulation in [address] [address] Alisha Elmore, R.N. Anticoagulant Therapy; Monitoring For Therapeutic Drug Therapy; Fibrillation Atrial (HCC) 7 9:08 AM MASTER CERTIFIED RV TECHNICIAN - 7 11:59 PM MASTER CERTIFIED RV TECHNICIAN Hospital Encounter Department of Laboratory Medicine in [address] [address] Jeffrey Garay P.A.-C. Anticoagulant Therapy; Monitoring For Therapeutic Drug Therapy; Fibrillation Atrial (HCC) Discharge Disposition: Home or Self Care 7 Orders Only Department of Anticoagulation in [address] [phone] Alisha Elmore, R.N. Anticoagulant Therapy; Monitoring For Therapeutic Drug Therapy; Fibrillation Atrial (HCC) 7 Orders Only Department of Anticoagulation in [place], [place] [address] [place] [address] Alisha Elmore, R.NHarmony Fibrillation Atrial (HCC) (Primary Dx) 7 Abstract Department of Anticoagulation in [employer], [place] [address] [place] [address] Agnieszka Nichols R.N. Anticoagulant Therapy; Monitoring For Therapeutic Drug Therapy; Fibrillation Atrial (HCC) 7 Anticoagulation Visit Department of Anticoagulation in [address] [address] Alisha Elmore, R.NHarmony Anticoagulant Therapy; Monitoring For Therapeutic Drug Therapy; Fibrillation Atrial (HCC) 7 9:40 AM MASTER CERTIFIED RV TECHNICIAN - 7 11:59 PM MASTER CERTIFIED RV TECHNICIAN Hospital Encounter Department of Laboratory Medicine in [address] [phone] Telly Gaines M.D. Monitoring For Therapeutic Drug Therapy Discharge Disposition: Home or Self Care 7 11:13 AM CDT - 7 11:59 PM CDT Hospital Encounter [facility] Telly Magana M.D. 7 11:13 AM CDT - 7 11:59 PM CDT Hospital Encounter [facility]X [facility] LAB Telly Gaines M.D. 7 Orders Only Department of Family Medicine, [facility], in [place], [place] [address] [place] [phone] Telly Gaines M.D. Fibrillation Atrial Paroxysmal (HCC) 7 9:32 AM CDT - 7 11:59 PM CDT Hospital Encounter HX [facility]KF Telly Magana M.D. 7 10:40 AM CDT - 7 11:59 PM CDT Hospital Encounter [facility]X [facility] LAB Telly Gaines M.D. 7 10:35 AM CDT - 7 11:59 PM CDT Hospital Encounter [facility] Telly Magana M.D. 7 1:17 PM CDT - 7 11:59 PM CDT Hospital Encounter [facility]X [facility] FAMILYPRA Jacquie Escalante APRN, C.N.P., M.S.N. 7 8:06 AM CDT - 7 11:59 PM CDT Hospital Encounter [facility]X [facility] LAB Telly Gaines M.D. 7 8:07 AM CDT - 7 11:59 PM CDT Hospital Encounter [facility] Telly Magana M.D. 7 8:13 AM CDT - 7 11:59 PM CDT Hospital Encounter [facility] Telly Ovalles M.D. 7 8:12 AM CDT - 7 [...] FBKF Telly Magana M.D. 7 8:14 AM MASTER CERTIFIED RV TECHNICIAN - 7 11:59 PM MASTER CERTIFIED RV TECHNICIAN Hospital Encounter [facility]X [facility] LAB Jeffrey Garay P.A.-C. 7 9:03 AM CDT Hospital Encounter [facility] Telly Magana M.D. 7 9:02 AM CDT Hospital Encounter [facility]X [facility] LAB Telly Gaines M.D. 7 12:17 PM MASTER CERTIFIED RV TECHNICIAN - 7 5:35 PM MASTER CERTIFIED RV TECHNICIAN Hospital Encounter HX RST EMERGENCY TRAUMA UNI Provider, Historical 6 8:31 AM MASTER CERTIFIED RV TECHNICIAN - 6 11:59 PM MASTER CERTIFIED RV TECHNICIAN Hospital Encounter [facility]X [facility] LAB Telly Gaines M.D. 6 8:39 AM MASTER CERTIFIED RV TECHNICIAN - 6 11:59 PM MASTER CERTIFIED RV TECHNICIAN Hospital Encounter [facility]X [facility] LAB Telly Gaines M.D. 6 9:32 AM MASTER CERTIFIED RV TECHNICIAN - 6 11:59 PM MASTER CERTIFIED RV TECHNICIAN Hospital Encounter [facility]X [facility] LAB Telly [...] Encounter [facility]X [facility] FAMILYPRA Jeffrey Garay P.A.-C. 6 9:06 AM CDT - 6 11:59 [...] [facility] Telly Rodriguez M.D. 6 9:04 AM CDT - 6 11:59 PM CDT Hospital Encounter [facility] Telly Magana M.D. 6 8:10 AM CDT - 6 11:59 PM CDT Hospital Encounter [facility] LAB Jacquie Escalante APRN, C.N.P., M.S.N. 6 8:11 AM CDT - 6 11:59 PM CDT Hospital Encounter [facility]X [facility] Jacquie Charles APRN, C.N.P., M.S.N. 6 10:23 AM CDT - 6 11:59 PM CDT Hospital Encounter [facility] LAB Jacquie Escalante APRN, C.N.P., M.S.N. 6 11:09 AM CDT - 6 11:59 PM CDT Hospital Encounter [facility]X [facility] PROTIME C Jacquie Escalante APRN, C.N.P., M.S.N. 6 9:15 AM CDT - 6 11:59 PM CDT Hospital [facility] Jose A Muller M.D. 6 9:51 AM CDT - 6 11:59 PM CDT Hospital Encounter [facility] LAB Karime Sparrow M.D. 6 2:52 PM CDT - 6 11:59 PM CDT Hospital Encounter [facility] LAB Jacquie Escalante APRN, C.NRosa, M.S.N. 6 9:01 AM CDT - 6 11:59 PM CDT Hospital Encounter [facility] LAB Jacquie Escalante APRN, C.N.Eduardo., M.S.N. 6 9:00 AM CDT - 6 11:59 PM CDT Hospital Encounter [facility]X [facility] PROTIME Jacquie Avalos APRN, C.N.Eduardo., M.S.N. 6 9:00 AM CDT - 6 11:59 PM CDT Hospital Encounter [facility] LAB Jacquie Escalante APRN, C.N.Eduardo., M.S.N. 6 9:00 AM CDT - 6 11:59 PM CDT Hospital Encounter [facility]X [facility] PROTIME Jacquie Avalos APRN, C.N.Fredrick, M.S.N. 6 8:40 AM CDT - 6 11:59 PM CDT Hospital Encounter [facility]X [facility] LAB Telly Gaines M.D. 6 8:02 AM MASTER CERTIFIED RV TECHNICIAN - 6 11:59 PM MASTER CERTIFIED RV TECHNICIAN Hospital Encounter [facility]X [facility] LAB Jacquie Escalante APRN, C.N.Fredrick, M.S.N. 6 8:10 AM MASTER CERTIFIED RV TECHNICIAN - 6 11:59 PM MASTER CERTIFIED RV TECHNICIAN Hospital Encounter [facility]X [facility] Telly Gaines M.D. 6 8:11 AM MASTER CERTIFIED RV TECHNICIAN - 6 11:59 PM MASTER CERTIFIED RV TECHNICIAN Hospital Encounter [facility]X [facility] Telly Magana M.D. 6 8:22 AM MASTER CERTIFIED RV TECHNICIAN - 6 11:59 PM MASTER CERTIFIED RV TECHNICIAN Hospital Encounter [facility]X [facility] FAMILYPRA Escalante NIKITA Dhillon C.N.Fredrick, M.S.N. 6 10:54 AM MASTER CERTIFIED RV TECHNICIAN - 6 11:59 PM MASTER CERTIFIED RV TECHNICIAN Hospital Encounter [facility]X [facility] Telly Gaines M.D. 6 10:55 AM MASTER CERTIFIED RV TECHNICIAN - 6 11:59 PM MASTER CERTIFIED RV TECHNICIAN Hospital Encounter [facility]X [facility] Telly Magana M.D. 6 1:51 PM MASTER CERTIFIED RV TECHNICIAN - 6 11:59 PM MASTER CERTIFIED RV TECHNICIAN Hospital Encounter [facility] Mason Mari P.A.-C., P.A. 5 8:02 AM MASTER CERTIFIED RV TECHNICIAN - 5 11:59 PM MASTER CERTIFIED RV TECHNICIAN Hospital Encounter [facility]X [facility] LAB Telly Gaines M.D. 5 9:41 AM MASTER CERTIFIED RV TECHNICIAN - 5 11:59 PM MASTER CERTIFIED RV TECHNICIAN Hospital Encounter [facility]X [facility] LAB Telly Gaines M.D. 5 9:42 AM MASTER CERTIFIED RV TECHNICIAN - 5 11:59 PM MASTER CERTIFIED RV TECHNICIAN Hospital Encounter [facility]X [facility] Telly Magana M.D. 5 10:29 AM CDT - 5 11:59 PM CDT Hospital Encounter [facility]X [facility] FAMILYADITI Escalante, NIKITA Dhillon C.N.P., M.S.N. 5 10:20 AM CDT - 5 11:59 PM CDT Hospital Encounter [facility]X [facility] LAB Lolis Tyler P.A.-CHarmony 5 10:21 AM CDT - 5 11:59 PM CDT Hospital Encounter [facility]X [facility] PROTIME Lolis Harris P.A.-C. 5 8:55 AM CDT - 5 11:59 PM CDT Hospital Encounter [facility]X [facility] PROTIME C Jacquie Escalante APRN, C.NRosa, M.S.N. 5 8:54 AM CDT - 5 11:59 PM CDT Hospital Encounter [facility]X [facility] LAB Jacquie Esaclante APRN, C.N.P., M.S.N. 5 9:02 AM CDT - 5 11:59 PM CDT Hospital Encounter [facility]X [facility] Jacquie Charles APRN, C.NRosa, M.S.N. 5 9:01 AM CDT - 5 11:59 PM CDT Hospital Encounter [facility]X [facility] LAB Jacquie Escalante APRN, C.NRosa, M.S.N. 5 9:16 AM CDT - 5 11:59 PM CDT Hospital Encounter [facility]X [facility] PROTMI C Jacquie Escalante APRN, C.NRosa, M.S.N. 5 9:15 AM CDT - 5 11:59 PM CDT Hospital Encounter [facility]X [facility] LAB Jacquie Escalante APRN, C.N.Eduardo., M.S.N. 5 10:30 AM CDT - 5 11:59 PM CDT Hospital Encounter [facility]X [facility] PROTIME Ap Rivas M.D. 5 9:24 AM CDT - 5 11:59 PM CDT Hospital Encounter [facility]X [facility] LAB Jeffrey Garay P.A.-C. 5 10:46 AM CDT - 5 11:59 PM CDT Hospital Encounter [facility]X [facility] LAB Lolis Tyler P.A.-Mari. 5 10:48 AM CDT - 5 11:59 PM CDT Hospital Encounter [facility]X [facility] Lolis Almeida P.A.-C. 5 - 5 11:59 PM CDT Hospital Encounter HX NO MAPPING 5 3:00 PM MASTER CERTIFIED RV TECHNICIAN - 5 11:59 PM MASTER CERTIFIED RV TECHNICIAN Hospital Encounter [facility]X [facility] Urban De La O M.D. 5 9:46 AM MASTER CERTIFIED RV TECHNICIAN - 5 11:59 PM MASTER CERTIFIED RV TECHNICIAN Hospital Encounter [facility]X [facility] Lolis Almeida P.A.-C. 5 9:45 AM MASTER CERTIFIED RV TECHNICIAN - 5 11:59 PM MASTER CERTIFIED RV TECHNICIAN Hospital Encounter [facility]X [facility] Lolis Denny P.A.-C. 5 5:28 AM MASTER CERTIFIED RV TECHNICIAN - 5 12:55 PM MASTER CERTIFIED RV TECHNICIAN Hospital Encounter HX RST Ap Cherry M.D., Ph.D. 5 - 5 5:28 AM MASTER CERTIFIED RV TECHNICIAN Hospital Encounter HX NO MAPPING Provider, Historical 5 - 5 11:59 PM MASTER CERTIFIED RV TECHNICIAN Hospital Encounter HX NO MAPPING 5 10:23 AM MASTER CERTIFIED RV TECHNICIAN - 5 11:59 PM MASTER CERTIFIED RV TECHNICIAN Hospital Encounter [facility]X [facility] Lolis Denny P.A.-C. 5 3:51 PM MASTER CERTIFIED RV TECHNICIAN - 5 11:59 PM MASTER CERTIFIED RV TECHNICIAN Hospital Encounter HX [facility] Lolis Almeida P.A.-C. 4 12:40 PM MASTER CERTIFIED RV TECHNICIAN - 4 3:16 PM MASTER CERTIFIED RV TECHNICIAN Hospital Encounter HX RST EMERGENCY TRAUMA UNI Provider, Historical 4 11:06 AM MASTER CERTIFIED RV TECHNICIAN - 4 11:59 PM MASTER CERTIFIED RV TECHNICIAN Hospital Encounter [facility]X [facility] LAB Provider, Historical 4 11:36 AM MASTER CERTIFIED RV TECHNICIAN - 4 11:59 PM MASTER CERTIFIED RV TECHNICIAN Hospital Encounter [facility]X [facility] FAMILYPRA Lolis Tyler P.A.-Mari. 4 11:17 AM MASTER CERTIFIED RV TECHNICIAN - 4 11:59 PM MASTER CERTIFIED RV TECHNICIAN Hospital Encounter HX [facility] PROTIME C Lolis Tyler P.A.-Mari. 4 3:37 PM MASTER CERTIFIED RV TECHNICIAN - 4 8:55 PM MASTER CERTIFIED RV TECHNICIAN Hospital Encounter HX RST EMERGENCY TRAUMA UNI Provider, Historical 4 9:20 AM MASTER CERTIFIED RV TECHNICIAN - 4 11:59 PM MASTER CERTIFIED RV TECHNICIAN Hospital Encounter HX NO MAPPING Sumaya Parekh APRN, C.N.P., D.N.P., R.N. 4 8:30 AM MASTER CERTIFIED RV TECHNICIAN - 4 11:59 PM MASTER CERTIFIED RV TECHNICIAN Hospital Encounter [facility]X [facility] LAB Sumaya Parekh APRN, C.N.P., D.N.P., R.N. 4 8:29 AM MASTER CERTIFIED RV TECHNICIAN - 4 11:59 PM MASTER CERTIFIED RV TECHNICIAN Hospital Encounter HX [facility] FAMILYSumaya Prieto APRN, C.N.P., D.N.P., R.N. 4 10:28 AM MASTER CERTIFIED RV TECHNICIAN - 4 11:59 PM MASTER CERTIFIED RV TECHNICIAN Hospital Encounter [facility]X [facility] FAMILYPRA Sumaya Parekh APRN, C.N.P., D.N.P., R.N. 4 9:43 AM MASTER CERTIFIED RV TECHNICIAN - 4 11:59 PM MASTER CERTIFIED RV TECHNICIAN Hospital Encounter [facility]X [facility] LAB Sumaya Parekh APRN, C.N.P., D.N.P., R.N. 4 9:44 AM MASTER CERTIFIED RV TECHNICIAN - 4 11:59 PM MASTER CERTIFIED RV TECHNICIAN Hospital Encounter HX [facility] FAMILYSumaya Prieto APRN, C.N.P., D.N.P., R.N. 4 10:34 AM MASTER CERTIFIED RV TECHNICIAN - 4 11:59 PM MASTER CERTIFIED RV TECHNICIAN Hospital Encounter [facility]X [facility] LAB Sumaya Parekh APRN, C.N.P., D.N.P., R.N. 4 10:35 AM MASTER CERTIFIED RV TECHNICIAN - 4 11:59 PM MASTER CERTIFIED RV TECHNICIAN Hospital Encounter HX [facility] FANTASMA Sumaya Parekh APRN, C.N.P., D.N.P., R.N. 4 10:37 AM MASTER CERTIFIED RV TECHNICIAN - 4 11:59 PM MASTER CERTIFIED RV TECHNICIAN Hospital Encounter HX [facility] PRA Sumaya Parekh APRN, C.N.P., D.N.P., R.N. 4 1:21 PM MASTER CERTIFIED RV TECHNICIAN - 4 11:59 PM MASTER CERTIFIED RV TECHNICIAN Hospital Encounter [facility]X [facility] FANTASMA Sumaya Parekh APRN, C.N.P., D.N.P., R.N. 4 - 4 11:59 PM CDT Hospital Encounter HX NO MAPPING 4 12:57 PM CDT - 4 11:59 PM CDT Hospital Encounter [facility]X [facility] FANTASMA Sumaya Parekh APRN, C.N.P., D.N.P., R.N. 4 3:26 PM CDT - 4 11:59 PM CDT Hospital Encounter [facility]X [facility] FANTASMA Sumaya Parekh APRN, C.N.P., D.N.P., R.N. 4 10:02 AM CDT - 4 11:59 PM CDT Hospital Encounter [facility]X [facility] LAB Jeffrey Garay P.A.-C. 4 10:02 AM CDT - 4 11:59 PM CDT Hospital Encounter [facility]X [facility] FAMILYPRA Jeffrey Garay P.A.-CHarmony 4 8:53 AM CDT - 4 11:59 PM CDT Hospital Encounter [facility]X [facility] LAB Jeffrey Garay P.A.-C. 4 8:26 AM CDT - 4 11:59 PM CDT Hospital Encounter HX [facility]KF FAMILYPRA Jeffrey Garay P.A.-C. 4 11:30 AM CDT - 4 11:59 PM CDT Hospital Encounter HX [facility]KF FAMILYPRA Sumaya Parekh APRN, C.N.P., D.N.P., R.N. 4 1:39 PM CDT - 4 11:59 PM CDT Hospital Encounter HX [facility] LAB Sumaya Parekh APRN, C.N.P., D.N.P., R.N. 4 11:09 AM CDT - 4 11:59 PM CDT Hospital Encounter HX [facility]KF FAMILYPRA Sumaya Parekh APRN, C.N.P., D.N.P., R.N. 4 - 4 11:59 PM CDT Hospital Encounter HX NO MAPPING 4 8:57 AM CDT - 4 11:59 PM CDT Hospital Encounter HX [facility] LAB Sumaya Parekh APRN, C.N.P., D.N.P., R.N. 4 - 4 11:59 PM CDT Hospital Encounter HX NO MAPPING 4 5:08 AM MST - 4 8:40 AM MST Hospital Encounter HX [facility] ED Dada Gonzales M.D. 4 9:52 AM MST - 4 12:10 PM MST Hospital Encounter HX [facility] ED Alexandru Zuniga D.O. 4 1:01 PM MASTER CERTIFIED RV TECHNICIAN - 4 11:59 PM MASTER CERTIFIED RV TECHNICIAN Hospital Encounter HX [facility]KF FAMILYPRA Jeffrey Garay P.A.-C. 4 10:10 AM MASTER CERTIFIED RV TECHNICIAN - 4 11:59 PM MASTER CERTIFIED RV TECHNICIAN Hospital Encounter [facility]X [facility] LAB Sumaya Parekh APRN, C.N.P., D.N.P., R.N. 4 10:10 AM MASTER CERTIFIED RV TECHNICIAN - 4 11:59 PM MASTER CERTIFIED RV TECHNICIAN Hospital Encounter [facility]X [facility] uSmaya Lynn APRN, C.N.P., D.N.P., R.N. 4 8:49 AM MASTER CERTIFIED RV TECHNICIAN - 4 11:59 PM MASTER CERTIFIED RV TECHNICIAN Hospital Encounter [facility]X [facility] LAB Sumaya Parekh APRN, C.N.P., D.N.P., R.N. 4 8:50 AM MASTER CERTIFIED RV TECHNICIAN - 4 11:59 PM MASTER CERTIFIED RV TECHNICIAN Hospital Encounter [facility]X [facility] Sumaya Lynn APRN, C.N.P., D.N.P., R.N. 4 5:35 AM MASTER CERTIFIED RV TECHNICIAN - 4 1:42 PM MASTER CERTIFIED RV TECHNICIAN Hospital Encounter HX RST ANGE 4 - 4 5:35 AM MASTER CERTIFIED RV TECHNICIAN Hospital Encounter HX NO MAPPING 4 - 4 11:59 PM MASTER CERTIFIED RV TECHNICIAN Hospital Encounter HX NO MAPPING 4 12:20 PM MASTER CERTIFIED RV TECHNICIAN - 4 11:59 PM MASTER CERTIFIED RV TECHNICIAN Hospital Encounter HX RST CARDIOLOGY Ap Buckley M.D., Ph.D. 4 - 4 11:59 PM MASTER CERTIFIED RV TECHNICIAN Hospital Encounter HX NO MAPPING 3 10:03 AM MASTER CERTIFIED RV TECHNICIAN - 3 11:59 PM MASTER CERTIFIED RV TECHNICIAN Hospital Encounter [facility]X [facility] Sumaya Lynn APRN, C.N.P., D.N.P., R.N. 3 10:15 AM MASTER CERTIFIED RV TECHNICIAN - 3 11:59 PM MASTER CERTIFIED RV TECHNICIAN Hospital Encounter [facility]X [facility] Sumaya Wood APRN, C.N.P., D.N.P., R.N. 3 1:25 PM MASTER CERTIFIED RV TECHNICIAN - 3 11:59 PM MASTER CERTIFIED RV TECHNICIAN Hospital Encounter [facility]X [facility] LAB Sumaya Parekh APRN, C.N.P., D.N.P., R.N. 3 10:35 AM MASTER CERTIFIED RV TECHNICIAN - 3 11:59 PM MASTER CERTIFIED RV TECHNICIAN Hospital Encounter [facility]X [facility] LAB Sumaya Parekh APRN, C.N.P., D.N.P., R.N. 3 11:53 AM MASTER CERTIFIED RV TECHNICIAN - 3 11:59 PM MASTER CERTIFIED RV TECHNICIAN Hospital Encounter [facility]X [facility] LAB Sumaya Parekh APRN, C.N.P., D.N.P., R.N. 3 8:02 AM CDT - 3 11:59 PM CDT Hospital Encounter [facility]X [facility] Sumaya Wood APRN, Mari.N.P., D.N.P., R.N. 3 - 3 11:59 PM [...] Sumaya Parekh APRN, C.N.P., D.N.P., R.N. 3 9:50 AM CDT - 3 11:59 PM CDT Hospital Encounter [facility]X [facility] LAB Sumaya Parekh APRN, C.N.P., D.N.P., R.N. 3 4:17 PM CDT - 3 11:59 PM CDT Hospital Encounter [facility] Sumaya Prieto APRN, C.N.P., D.N.P., R.N. 3 9:04 AM CDT - 3 11:59 PM CDT Hospital Encounter [facility] LAB Sumaya Parekh APRN, C.N.P., D.N.P., R.N. 3 8:59 AM CDT Hospital Encounter [facility] LAB Sumaya Parekh APRN, C.N.P., D.N.P., R.N. 3 1:01 PM CDT - 3 11:59 PM CDT Hospital Encounter [facility] Sumaya Prieto APRN, C.N.P., D.N.P., R.N. 3 10:09 AM CDT - 3 11:59 PM CDT Hospital Encounter [facility] Sumaya Wood APRN, C.N.P., D.N.P., R.N. 3 10:10 AM CDT - 3 11:59 PM CDT Hospital Encounter [facility] Sumaya Prieto APRN, C.N.P., D.N.P., R.N. 3 10:11 AM CDT - 3 11:59 PM CDT Hospital Encounter [facility] Ap Long M.D. 3 10:12 AM CDT - 3 11:59 PM CDT Hospital Encounter [facility] Ap Vasquez M.D. 3 1:14 PM CDT - 3 11:59 PM CDT Hospital Encounter HX RST EMERGENCY TRAUMA UNI Provider, Historical 3 10:19 AM CDT - 3 11:59 PM CDT Hospital Encounter [facility] Ap Long M.D. 3 10:19 AM CDT - 3 11:59 PM CDT Hospital Encounter [facility] Ap Vasquez M.D. 3 10:10 AM CDT - 3 11:59 PM CDT Hospital Encounter [facility] Ap Long M.D. 3 10:11 AM CDT - 3 11:59 PM CDT Hospital Encounter [facility] Ap Vasquez M.D. 3 9:01 PM CDT - 3 11:59 PM CDT Hospital Encounter HX RST EMERGENCY TRAUMA UNI Provider, Historical 3 2:47 PM CDT - 3 11:59 PM CDT Hospital Encounter [facility] Ap Long M.D. 3 9:55 AM CDT - 3 11:59 PM CDT Hospital Encounter [facility] Ap Long M.D. 3 6:03 PM CDT - 3 12:26 PM CDT Hospital Encounter HX RST Helder Grullon M.D., Ph.D. 3 10:37 AM CDT - 3 12:14 PM CDT Hospital Encounter HX RST EMERGENCY TRAUMA UNI Provider, Historical 3 10:46 AM CDT - 3 11:59 PM CDT Hospital Encounter [facility] Ap Vasquez M.D. 3 10:45 AM CDT - 3 11:59 PM CDT Hospital Encounter [facility] Ap Long M.D. 3 9:22 AM MASTER CERTIFIED RV TECHNICIAN - 3 11:59 PM MASTER CERTIFIED RV TECHNICIAN Hospital Encounter [facility]X [facility] FAMILYPRA Ap Oakes M.D. 3 9:20 AM MASTER CERTIFIED RV TECHNICIAN - 3 11:59 PM MASTER CERTIFIED RV TECHNICIAN Hospital Encounter [facility]X [facility] LAB Ap Oakes M.D. 3 9:16 AM MASTER CERTIFIED RV TECHNICIAN - 3 11:59 PM MASTER CERTIFIED RV TECHNICIAN Hospital Encounter [facility]X [facility] LAB Ap Oakes M.D. 2 4:16 PM MASTER CERTIFIED RV TECHNICIAN - 2 11:59 PM MASTER CERTIFIED RV TECHNICIAN Hospital Encounter HX RST EMERGENCY TRAUMA UNI Provider, Historical 2 - 2 11:59 PM MASTER CERTIFIED RV TECHNICIAN Hospital Encounter HX NO MAPPING 2 9:11 AM MASTER CERTIFIED RV TECHNICIAN - 2 11:59 PM MASTER CERTIFIED RV TECHNICIAN Hospital Encounter [facility]X [facility] LAB Ap [...] LAB Ap Oakes M.D. 2 9:48 AM MASTER CERTIFIED RV TECHNICIAN - 2 11:59 PM MASTER CERTIFIED RV TECHNICIAN Hospital Encounter HX [facility] Ap Oakes M.D. 2 - 2 11:59 PM MASTER CERTIFIED RV TECHNICIAN Hospital Encounter HX NO MAPPING 2 8:14 AM MASTER CERTIFIED RV TECHNICIAN - 2 11:59 PM MASTER CERTIFIED RV TECHNICIAN Hospital Encounter HX [facility] Ap Oakes M.D. 2 9:30 AM MASTER CERTIFIED RV TECHNICIAN - 2 11:59 PM MASTER CERTIFIED RV TECHNICIAN Hospital Encounter HX [facility] Ap Oakes M.D. 2 8:27 AM MASTER CERTIFIED RV TECHNICIAN - 2 11:59 PM MASTER CERTIFIED RV TECHNICIAN Hospital Encounter HX [facility] Ap Oakes M.D. 2 8:28 AM MASTER CERTIFIED RV TECHNICIAN - 2 11:59 PM MASTER CERTIFIED RV TECHNICIAN Hospital Encounter HX [facility]ILY[facility] Ap Oakes M.D. 1 8:29 AM MASTER CERTIFIED RV TECHNICIAN - 1 11:59 PM MASTER CERTIFIED RV TECHNICIAN Hospital Encounter HX [facility] Ap Oakes M.D. 1 8:40 AM MASTER CERTIFIED RV TECHNICIAN - 1 11:59 PM MASTER CERTIFIED RV TECHNICIAN Hospital Encounter HX [facility] Ap Oakes M.D. 1 9:29 AM MASTER CERTIFIED RV TECHNICIAN - 1 11:59 PM MASTER CERTIFIED RV TECHNICIAN Hospital Encounter HX [facility] Ap Oakes M.D. 1 - 1 11:59 PM MASTER CERTIFIED RV TECHNICIAN Hospital Encounter HX NO MAPPING 1 9:29 AM MASTER CERTIFIED RV TECHNICIAN - 1 11:59 PM MASTER CERTIFIED RV TECHNICIAN Hospital Encounter HX [facility] Ap Oakes M.D. 1 7:57 AM MASTER CERTIFIED RV TECHNICIAN - 1 11:59 PM MASTER CERTIFIED RV TECHNICIAN Hospital Encounter HX [facility] Sumaya Parekh APRN, C.N.P., D.N.P., R.N. 1 7:56 AM MASTER CERTIFIED RV TECHNICIAN - 1 11:59 PM MASTER CERTIFIED RV TECHNICIAN Hospital Encounter HX [facility] Ap Oakes M.D. 1 9:43 AM MASTER CERTIFIED RV TECHNICIAN - 1 11:59 PM MASTER CERTIFIED RV TECHNICIAN Hospital Encounter HX [facility] Sumaya Parekh APRN, C.N.P., D.N.P., R.N. 1 9:30 AM MASTER CERTIFIED RV TECHNICIAN - 1 11:59 PM MASTER CERTIFIED RV TECHNICIAN Hospital Encounter HX [facility] Ap Oakes M.D. 1 9:19 AM MASTER CERTIFIED RV TECHNICIAN - 1 11:59 PM MASTER CERTIFIED RV TECHNICIAN Hospital Encounter HX [facility] Ap Oakes M.D. 1 3:29 PM MASTER CERTIFIED RV TECHNICIAN - 1 11:59 PM MASTER CERTIFIED RV TECHNICIAN Hospital Encounter HX [facility] Sumaya Parekh APRN, C.N.P., D.N.P., R.N. 1 9:27 AM MASTER CERTIFIED RV TECHNICIAN - 1 11:59 PM MASTER CERTIFIED RV TECHNICIAN Hospital Encounter HX [facility] Ap Oakes M.D. 1 9:20 AM MASTER CERTIFIED RV TECHNICIAN - 1 11:59 PM MASTER CERTIFIED RV TECHNICIAN Hospital Encounter HX [facility] Ap Oakes M.D. 1 9:28 AM MASTER CERTIFIED RV TECHNICIAN - 1 11:59 PM MASTER CERTIFIED RV TECHNICIAN Hospital Encounter HX [facility] Ap Oakes M.D. 1 9:43 AM MASTER CERTIFIED RV TECHNICIAN - 1 11:59 PM MASTER CERTIFIED RV TECHNICIAN Hospital Encounter [facility]X [facility] Ap Oakes M.D. 1 1:25 PM MASTER CERTIFIED RV TECHNICIAN - 1 11:59 PM MASTER CERTIFIED RV TECHNICIAN Hospital Encounter HX [facility] Ap Oakes M.D. 1 1:00 PM MASTER CERTIFIED RV TECHNICIAN - 1 11:59 PM MASTER CERTIFIED RV TECHNICIAN Hospital Encounter HX [facility] Ap Oakes M.D. 1 12:18 PM MASTER CERTIFIED RV TECHNICIAN - 1 2:43 PM MASTER CERTIFIED RV TECHNICIAN Hospital Encounter HX [facility] 2D 1 - 1 12:18 PM MASTER CERTIFIED RV TECHNICIAN Hospital Encounter HX NO MAPPING 1 7:00 AM MASTER CERTIFIED RV TECHNICIAN - 1 3:07 PM MASTER CERTIFIED RV TECHNICIAN Hospital Encounter HX RST [facility] 2D 1 - 1 7:00 AM MASTER CERTIFIED RV TECHNICIAN Hospital Encounter HX NO MAPPING 1 8:07 [...] Encounter HX [facility] Olesya Fish, Mari.N.Eduardo., R.N. 0 9:03 AM CDT - 0 11:59 PM CDT Hospital Encounter HX NO MAPPING Jeffrey Garay, P.A.-C. 9 - 9 11:59 PM MASTER CERTIFIED RV TECHNICIAN Hospital Encounter HX NO MAPPING 9 9:25 AM CDT Hospital Encounter HX NO MAPPING Jose A Muller M.D. 8 6:47 PM MASTER CERTIFIED RV TECHNICIAN - 8 11:59 PM MASTER CERTIFIED RV TECHNICIAN Hospital Encounter HX [facility]LOOR PRACT[facility] Storm Alejandra M.D. 8 3:02 PM MASTER CERTIFIED RV TECHNICIAN - 8 4:09 PM MASTER CERTIFIED RV TECHNICIAN Hospital Encounter HX RST ANGE 4C 8 [...] Encounter HX NO MAPPING 1 12:46 AM MASTER CERTIFIED RV TECHNICIAN - 1 2:17 PM MASTER CERTIFIED RV TECHNICIAN Hospital Encounter HX RST [facility] 5D 0 6:16 AM MASTER CERTIFIED RV TECHNICIAN - 0 9:47 AM MASTER CERTIFIED RV TECHNICIAN Hospital Encounter HX RST UNIT 5-4 GYNECOLOGY [...] (COUMADIN) 5 mg tabletIndications: Atrial Fibrillation Paroxysmal (HCC),Garment Sorter (Current) Anticoagulant Treatment,Thrombos is Deep Vein Acute Calf Right (HCC),Monitoring For Therapeutic Drug Therapy Please take as directed by your Anticoagulation Clinic. 106 tablet 3 09/03/2023 Active Additional Information Patient taking differently: 7.5 MG on Mondays and 5 MG all other daysPlease take as directed by your Anticoagulation Clinic., Reported on 07/10/2024 FLUoxetine (PROzac) 10 mg capsule Take 1 [...] and dinner. 180 tablet 3 04/05/2024 Active atorvastatin (Lipitor) 10 mg tablet Take 10 mg by mouth daily. 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 Right worse than left. Denies: nipple discharge, dimpling, axilla pain, skin changes, fever. No family history of breast cancer. Last mammogram in May 2018. Frequently does not wear bras. PLAN: diagnostic mammogram, conservative care discussed. Primary Osteoarthritis Knee Right 12/02/2018 Overview (06/18/2022): 06/18/2022 Ambivalent re TKA - discussed, since no pain or limitation now, could contact Dr Moore team and defer for six mos or so. Rotator Cuff Disorder Right 12/02/2018 Atrial Fibrillation Paroxysmal 12/02/2018 Overview (09/16/2021): #9 paroxysmal atrial fibrillation - S/P ablation [...] - cardioversion, apparent NSR until wrapping up [facility] trip 07/23/18 - HR max 120 on metoprolol succinate 25 mg once daily - a.fib on exam today - discussed, to Rhythm Service for iv sotalol - back to Sleep Medicine for continued efforts re STANLEY Rx. 09/16/2021 NSR on sotalol 120 mg BID ?? Detention (Current) Anticoagulant Treatment 11/2017 Overview (06/18/2022): 07/03/2019 [facility] A/C team to advise re [...] Drug Therapy 09/15/20 18 Sleep Apnea 07/25/2018 Overview (09/16/2021): #10 obstructive sleep apnea 11/22: Pos eval [...] Sleep CBT sessions Maintenance Health Adult 07/25/2018 Overview (06/17/2022): health maintenance - normal WALE 04/20: Hyst/BSO. [...] health - [facility] Restless Leg Syndrome 07/25/2018 Overview (07/25/2018): #5 restless legs syndrome 04/20: Controlled partially [...] baby Thrombosis Deep Vein Personal History 07/25/2018 Overview (06/18/2022): #8 PH DVT/pain right calf - resolved [...] deep compression, but otherwise benign exam - [facility] US negative - observe only. ?? 04/14/07: Doing better, observe only 07/03/2019 Continue warfarin - need POST operative bridging with LMWH until therapeutic INR again 06/17/[address] Arecibo protocol - DC warfarin 5-7 days preop, no bridging pre op needed., need POST operative bridging with LMWH until therapeutic INR again If planning TKA, proceed with appt. If not planning TKA, can cancel this appt also. Metabolizer CY Poor 07/02/2017 Metabolizer CYP2D6 Rapid 07/02/2017 Overview (02/05/2020): S: Patient has CYP 2D6 polymorphisms consistent [...] ?? Polyp Colon Adenomatous Personal History 014 Overview (06/16/2022): 2013: Dr Alvares: #2 History of adenomatous colon polyps Four small colon polyps were removed during a colonoscopy this time. She will require a repeat colonoscopy in three to five years. Biopsies demonstrated tubular adenomas . 06/16/2022 3 sessile polyps tubular adenoma low grade dysplasia - repeat 2024 Atrial Fibrillation Unspecified 11/25/2013 Overview (07/25/2018): #9 paroxysmal atrial fibrillation - S/P ablation [...] - cardioversion, apparent NSR until wrapping up [facility] trip 07/23/18 - HR max 120 on metoprolol succinate 25 mg once daily - a.fib on exam today - discussed, to Rhythm Service for iv sotalol - back to Sleep Medicine for continued efforts re STANLEY Rx. Asthma Mild Intermittent 10/11/2011 Overview (04/06/2017): Asthma NOS, w/o acute exacerbation Hypertension Essential Primary 01/28/2010 Overview (06/17/2022): Hypertension Essential, Benign #4 Hypertension 11/20: HCTZ [...] Gastroesophageal Reflux Disease Without Esophagi tis 01/28/2010 Overview (04/02/2022): #2 GERD/esophageal motility disorder/recurrent cough/non ulcer dyspepsia [...] no heartburn, no diarrhea. NEG exam at [facility] ED [place] 12/29, repeat exam benign 01/26. Discussed in [...] ?? 03/31: Discussed in detail - nausea 24/7 and intermittent heartburn - no difference off [...] gastropathy Depression Major Recurrent Full Remission 2009 Overview (06/17/2022): #3 Depression 11/20: Increased stressors at work, [...] sleeping a lot on January vacation in [place] - glad that spouse was off golfing [...] before DCing 06/17/2022 Doing well. Hyperlipidemia 07/12/2008 Overview (07/25/2018): #6 hyperlipidemia 04/20: T. chol 282, HDL [...] Diagnosed Date Resolved Date Bronchitis Chronic 06/25/2021 1 Pneumonia Due To COVID-19 09/08/2020 Anticoagulant Therapy [Z79.01] 10/02/2017 08/12/2018 Detention (Current) Anticoagulant Treatment 10/09/2011 08/12/2018 Immunizations Name Administration Dates Next Due DTaP (Infanrix, Tripedia) 05/14/2006 H1N1 Inj 12/04/2009 HZV (ZOSTAVAX) 12/04/2009 Influenza Split 08/13/2016, 5,09/15/2014,2012,08/19/2012,10/06/1996,09/01/1995 Influenza high dose QV(65 ye ars or older) (PF) 09/24/2020,09/08/2020() Influenza, Seasonal, Injectable 08/19/2012,10/06,09/01/1995 Influenza, Unspecified 09/08/2020(Deferr ed: Other),08/24/2017,08/20/2015,09/18/2014 ,08/30/2013,08/29/2011,09/15/2010 PCV13 05/05/2016 PPSV23 08/23/2012 RZV (SHINGRIX) 06/15/2018,03/01/2018 SARS-COV-2 (COVID-19) - PFIZ ER (Discontinued)(12 years or older) 01/15/2021,12/25/2020 Td (Adult), adsorbed 12/10/2016(Deferred: Other) ,01/21/1999 Td Preservative Free (TENIVA C, DECAVAC) 04/06/2017 Tdap 05/14/2006 influenza trivalent high dos e (HD)(PF) 08/23/2019,08/25/2018,08/24/2017,2015,08/20/2015 influenza trivalent vaccine (6 months and older)(PF) 09/07/2011,09/19/2008,09/19/2008 Family History Medical History Relation Name Comments Alcohol abuse Father Cale nieves Coronary artery disease Father Cale nieves Heart attack Father Cale nieves Cancer Mother Relation Name Status Comments Father Cale nieves Mother Social History Smoking Status as of 08/10/2024 Tobacco Use Types Packs/Day Years Used Date [...] How often do you attend chur or hinduism services? More than 4 times per year 02/25/2022 Do you belong to any clubs o r organizations such as shinto groups, unions, fraternal or athletic groups, or [...] Answer Date Recorded PHQ-2 Score 3 04/26/2024 [facility] of Occupat ional [facility] - Occupational Stress Questionnaire Answer Date [...] your living situation today? I have a [facility] place to live 05/26/2023 Education Answer Date Recorded What is the highest level of school you have completed or the highest degree you have received? Master's degree (e.g., MA, MS, Tacho, MEd, [employer] HAULER, EARLE) 06/27/2019 Sex and Gender Information Value Date Recorded Sex Assigned at Female 11/24/2017 7:34 PM MASTER CERTIFIED RV TECHNICIAN Gender Identity Female 05/03/2021 11:34 AM CDT Sexual Orientation Straight 05/03/2021 11 :34 AM CDT Last Filed Vital Signs Vital Sign Reading Time Taken Comments Blood Pressure 121/76 07/18/2024 10:46 AM CDT Pulse 80 07/18/2024 10:46 AM CDT Temperature 36.4 ??C (97.5 ??F) 11/03/2023 2:50 PM CS T Respiratory Rate 16 11/03/2023 5:34 PM MASTER CERTIFIED RV TECHNICIAN Oxygen Saturation 96% 11/03/2023 9:29 AM MASTER CERTIFIED RV TECHNICIAN Inhaled Oxygen Concentration - - Weight 93.1 kg (205 lb 4 oz) 07/18/2024 10:46 AM CDT Height 155.4 cm (5' 1.18) 07/18/2024 10:46 AM C DT Body Mass Index 38.55 07/18/2024 10:46 AM CDT Plan of Treatment Upcoming Encounters Date Type Department Care Team (Latest Contact Info) Description 08/28/2024 8:30 AM CDT Anticoagulation Visit Department of Anticoagulation in [place], [place] [address] [place] [phone] Emilia Lincoln M.D. [address] [place] [phone] Medical Devices Implanted Type Area Manager Ecommerce Device Identifier Shelf Expiration Date Model / Serial / Lot J J Patella Rev Round 32m - Rodriguez [id number] Implanted:Qty: 1 on 09/11/2011 Knee Implant Other/Legacy - See Implant Description [employer] Description:Device Manufactu rer - [employer]. Body Location - Other. Left. Device Status Text - KNEE [id number]. Depuy-Insert Stabilized Sz 3 10mm - Rodriguez [id number] Implanted:Qty: 1 on 09/11/2011 Knee Implant Other/Legacy - See Implant Description [employer] Description:Device Manufactu rer - [employer]. Body Location - Other. Left. Device Status Text - KNEE [id number]. Sigma Post Stab.W Lug Fem Sz 3 Lt - Rodriguez [id number] Implanted:Qty: 1 on 09/11/2011 Knee Implant Other/Legacy - See Implant Description [employer] Description:Device Manufactu rer - [employer]. Body Location - Other. Left. Device Status Text - KNEE [id number]. Depuy-Tib Tray Mod Cement Cocr Sz3 - Rodriguez [id number] Implanted:Qty: 1 on 09/11/2011 Knee Implant Other/Legacy - See Implant Description [employer] Description:Device Manufactu rer - [employer]. Body Location - Other. Left. Device Status Text - KNEE [id number]. Conversions - Default Historical Implant Device Implanted:09/27 (Quantity not on file) Knee Implant Description:Device Status Te xt - Knee Imp. artificial left knee. Cement Bone Large - Rodriguez [id number] Implanted:Qty: 2 on 09/11/2011 Misc Other Nette Description:Device Manufactu rer - [place] [employer].. Device Status Text - [id number]. Lens Ma30ba 5.5 X 15.5 - Rodriguez [id number] Implanted:Qty: 1 on 03/06/1999 Ocular Lens [employer] Description:Device Manufactu rer - [employer]. Device Status Text - [id number]. Lens Ma30ba 5.5 X 15.5 - Rodriguez [id number] Implanted:Qty: 1 on 04/09/1999 Ocular Lens [employer] Description:Device Manufactu rer - [employer]. Device Status Text - [id number]. Procedures Procedure Name Priority Date/Time Associated Diagnosis Comments PROTHROMBIN TIME (PT), P Routine 07/31/2024 PROTHROMBIN TIME (PT), P Routine 07/24/2024 PROTHROMBIN TIME (PT), P Routine 07/17/2024 HOLTER MONITOR - IN CLINIC DRUM MAKER Routine 07/12/2024 11:16 AM CDT Atrial Fibrillation Paroxysmal (HCC) ECG Routine 07/11/2024 2:27 PM CDT Atrial Fibrillation Paroxysmal (HCC) PROTHROMBIN TIME (PT), P Routine 07/10/2024 PROTHROMBIN TIME (PT), P Routine 07/03/2024 PROTHROMBIN TIME (PT), P Routine 06/26/2024 PROTHROMBIN TIME (PT), P Routine 06/19/2024 PROTHROMBIN TIME (PT), P Routine 06/12/2024 PROTHROMBIN TIME (PT), P Routine 06/05/2024 PROTHROMBIN TIME (PT), P Routine 2024 PROTHROMBIN TIME (PT), P Routine 05/15/2024 PROTHROMBIN TIME (PT), P Routine 05/08/2024 PROTHROMBIN [...] ABS, S Routine 04/27/2024 8:37 AM CDT TX T4 FREE Routine 04/27/2024 8:37 AM CDT [...] 2:26 PM CDT Atrial Fibrillation Paroxysmal (HCC) Garment Sorter (Current) Anticoagulant Treatment Monitoring For Therapeutic Drug [...] MANUAL Routine 12/13/2023 Atrial Fibrillation Paroxysmal (HCC) Garment Sorter (Current) Anticoagulant Treatment Monitoring For Therapeutic Drug Therapy Thrombosis Deep Vein Personal History PROTHROMBIN TIME (PT), P Routine 12/06/2023 PROTHROMBIN TIME (PT), P Routine 11/29/2023 TX HOME SLEEP TEST TYPE CINDY 4 Routine 11/25/2023 10:32 AM MASTER CERTIFIED RV TECHNICIAN Obstructive Sleep Apnea Adult PROTHROMBIN TIME (PT), P Routine 11/22/2023 PROTHROMBIN TIME (PT), P Routine 11/15/2023 RENAL FUNCTION PANEL, S Routine 11/10/2023 9:51 AM MASTER CERTIFIED RV TECHNICIAN Hypertension Pulmonary (HCC) Anemia Iron Deficiency Chronic Diastolic (Congestive) Heart Failure (HCC) PROTHROMBIN TIME (PT), P Routine 11/08/2023 6 MINUTE WALK Routine 11/03/2023 10:00 AM MASTER CERTIFIED RV TECHNICIAN Hypertension Pulmonary (HCC) ECG Routine 11/01/2023 4:15 PM MASTER CERTIFIED RV TECHNICIAN Atrial Fibrillation Unspecified (HCC) Atrial Fibrillation Paroxysmal (HCC) (TTE) 2D ECHO DOPPLER COLOR Routine 11/01/2023 2:55 PM MASTER CERTIFIED RV TECHNICIAN Hypertension Pulmonary (HCC) FERRITIN, S Routine 11/01/2023 1:25 PM MASTER CERTIFIED RV TECHNICIAN IRON AND TOT IRON-BINDING CAPACITY, S/P Routine 11/01/2023 1:25 PM MASTER CERTIFIED RV TECHNICIAN Hypertension Pulmonary (HCC) Anemia Iron Deficiency COMPREHENSIVE METABOLIC PANEL, S/P Routine 11/01/2023 1:25 PM MASTER CERTIFIED RV TECHNICIAN Hypertension Pulmonary (HCC) NT-PRO B-TYPE NATRIURETIC PEPTIDE (BNP), S Routine 11/01/2023 1:25 PM MASTER CERTIFIED RV TECHNICIAN Hypertension Pulmonary (HCC) CBC WITH DIFFERENTIAL, B Routine 11/01/2023 1:25 PM MASTER CERTIFIED RV TECHNICIAN Hypertension Pulmonary (HCC) MAGNESIUM, S Routine 11/01/2023 1:25 PM MASTER CERTIFIED RV TECHNICIAN Atrial Fibrillation Unspecified (HCC) Atrial Fibrillation Paroxysmal (HCC) LIPID PANEL, S Routine 11/01/2023 1:25 PM MASTER CERTIFIED RV TECHNICIAN Hyperlipidemia PROTHROMBIN TIME (PT), P Routine 10/18/2023 [...] 3:23 PM CDT Atrial Fibrillation Paroxysmal (HCC) Detention (Current) Anticoagulant Treatment Monitoring For Therapeutic Drug Therapy INR REFLEX, POCT, B Routine 04/19/2023 3:22 PM CDT PROTHROMBIN TIME (PT), P Routine 04/12/2023 HOLTER MONITOR - IN CLINIC DRUM MAKER Routine 04/08/2023 6:41 PM CDT Atrial Fibrillation [...] DOPPLER AND CONTRAST Routine 11/12/2022 3:12 PM MASTER CERTIFIED RV TECHNICIAN Atrial Fibrillation Unspecified Dyspnea On Exertion ECG Routine 11/12/2022 10:38 AM MASTER CERTIFIED RV TECHNICIAN Atrial Fibrillation Unspecified DX CHEST AP OR PA AND LATERAL 2 VIEWS RAD - Routine (most inpatients and all outpatients) 11/12/2022 9:23 AM MASTER CERTIFIED RV TECHNICIAN Dyspnea On Exertion CBC WITHOUT DIFFERENTIAL, B Routine 11/12/2022 9:07 AM MASTER CERTIFIED RV TECHNICIAN Atrial Fibrillation Unspecified Dyspnea On Exertion THYROID FUNCTION CASCADE, S Routine 11/12/2022 9:07 AM MASTER CERTIFIED RV TECHNICIAN Atrial Fibrillation Unspecified CREATININE WITH EGFR, S/P Routine 11/12/2022 9:07 AM MASTER CERTIFIED RV TECHNICIAN Atrial Fibrillation Unspecified POTASSIUM, S/P Routine 11/12/2022 9:07 AM MASTER CERTIFIED RV TECHNICIAN Atrial Fibrillation Unspecified PROTHROMBIN TIME (PT), P Routine 11/09/2022 HOLTER MONITOR - IN CLINIC DRUM MAKER Routine 11/05/2022 10:28 PM MASTER CERTIFIED RV TECHNICIAN Atrial Fibrillation Unspecified PROTHROMBIN TIME (PT), P [...] REFLEX, POCT, B Routine 01/08/2022 1:26 PM MASTER CERTIFIED RV TECHNICIAN Atrial Fibrillation Paroxysmal (HCC) Detention (Current) Anticoagulant Treatment Monitoring For Therapeutic Drug Therapy Thrombosis Deep Vein Personal History INR REFLEX, POCT, B Routine 01/08/2022 1:24 PM MASTER CERTIFIED RV TECHNICIAN PROTHROMBIN TIME (PT), P Routine 01/05/2022 PROTHROMBIN TIME (PT), P Routine 12/29/2021 INR, POCT, B Routine 12/16/2021 10:27 AM MASTER CERTIFIED RV TECHNICIAN INR, POCT, B Routine 12/02/2021 10:24 AM MASTER CERTIFIED RV TECHNICIAN INR, POCT, B Routine 11/21/2021 2:32 PM MASTER CERTIFIED RV TECHNICIAN INR, POCT, B Routine 11/18/2021 1:53 PM MASTER CERTIFIED RV TECHNICIAN INR, POCT, B Routine 11/04/2021 7:44 AM MASTER CERTIFIED RV TECHNICIAN PROTHROMBIN TIME (PT), P Routine 09/08/2021 1:00 [...] INR, POCT, B Routine 12/12/2020 8:33 AM MASTER CERTIFIED RV TECHNICIAN TX ARTHCS ASP/INJ MJR JT WO US Routine 12/05/2020 8:30 AM MASTER CERTIFIED RV TECHNICIAN Primary Osteoarthritis Knee Right ACID-BASE BALANCE, B Routine 11/27/2020 9:26 AM MASTER CERTIFIED RV TECHNICIAN Dyspnea 6 MINUTE WALK Routine 11/27/2020 9:11 AM MASTER CERTIFIED RV TECHNICIAN Dyspnea PULMONARY FUNCTION TESTS Routine 11/26/2020 1:11 PM MASTER CERTIFIED RV TECHNICIAN Bronchitis Chronic (HCC) EXHALED NITRIC OXIDE Routine 11/26/2020 12:59 PM MASTER CERTIFIED RV TECHNICIAN Cough INR, POCT, B Routine 11/26/2020 10:03 AM MASTER CERTIFIED RV TECHNICIAN INR, POCT, B Routine 10/29/2020 9:58 AM MASTER CERTIFIED RV TECHNICIAN FL ESOPHAGRAM DOUBLE CONTRAST RAD - Routine (most inpatients and all outpatients) 10/15/2020 2:41 PM MASTER CERTIFIED RV TECHNICIAN Gastroesophageal Reflux Disease Without Esophagitis INR, POCT, B Routine 10/15/2020 11:43 AM MASTER CERTIFIED RV TECHNICIAN CT CHEST WITHOUT IV CONTRAST RAD - Routine (most inpatients and all outpatients) 10/11/2020 12:15 PM MASTER CERTIFIED RV TECHNICIAN Respiratory Infection Type Unknown Due To COVID-19 Cough Other Dyspnea PROTHROMBIN TIME (PT), P Routine 10/07/2020 10:41 AM MASTER CERTIFIED RV TECHNICIAN Monitoring For Therapeutic Drug Therapy Garment Sorter Anticoagulant Treatment Atrial Fibrillation Paroxysmal (HCC) CREATININE WITH EGFR, S/P Routine 10/07/2020 10:41 AM MASTER CERTIFIED RV TECHNICIAN Atrial Fibrillation (HCC) POTASSIUM, S/P Routine 10/07/2020 10:41 AM MASTER CERTIFIED RV TECHNICIAN Atrial Fibrillation (HCC) ECG Routine 10/07/2020 10:13 AM MASTER CERTIFIED RV TECHNICIAN Atrial Fibrillation (HCC) INR, POCT, B Routine 09/30/2020 9:16 AM MASTER CERTIFIED RV TECHNICIAN PROTHROMBIN TIME (PT), P STAT 09/23/2020 11:16 AM MASTER CERTIFIED RV TECHNICIAN Atrial Fibrillation Paroxysmal (HCC) Garment Sorter Anticoagulant Treatment Monitoring For Therapeutic Drug Therapy Thrombosis Deep Vein Acute Calf Right (HCC) PROTHROMBIN TIME (PT), P STAT 09/16/2020 11:28 AM MASTER CERTIFIED RV TECHNICIAN Atrial Fibrillation Paroxysmal (HCC) Garment Sorter Anticoagulant Treatment Monitoring For Therapeutic Drug Therapy Thrombosis Deep Vein Acute Calf Right (HCC) CBC WITH DIFFERENTIAL, B Routine 09/12/2020 12:23 PM CDT Viral Syndrome Anemia Pneumonia Due To COVID-19 BASIC METABOLIC PANEL, S/P Routine 09/12/2020 12:23 PM CDT Viral Syndrome Anemia Pneumonia Due To COVID-19 PROTHROMBIN TIME (PT), P Routine 09/12/2020 12:23 PM CDT Atrial Fibrillation Paroxysmal (HCC) Garment Sorter Anticoagulant Treatment Monitoring For Therapeutic Drug Therapy [...] CDT SARS CORONAVIRUS 2, MOLECULAR DETECTION, PCR (SEAPORT PLANNING MANAGER) Routine 09/08/2020 3:14 AM CDT DX CHEST [...] INR, POCT, B Routine 01/11/2020 9:35 AM MASTER CERTIFIED RV TECHNICIAN INR, POCT, B Routine 12/21/2019 9:03 AM MASTER CERTIFIED RV TECHNICIAN INR, POCT, B Routine 11/30/2019 10:20 AM MASTER CERTIFIED RV TECHNICIAN INR, POCT, B Routine 11/23/2019 10:30 AM MASTER CERTIFIED RV TECHNICIAN TX URINALYSIS AUTO W MICRO Routine 11/20/2019 10:58 AM MASTER CERTIFIED RV TECHNICIAN URINALYSIS WITH MICROSCOPIC IF INDICATED, U Routine 11/20/2019 10:58 AM MASTER CERTIFIED RV TECHNICIAN Dysuria BACTERIAL CULTURE, AEROBIC + SUSC, URINE Routine 11/20/2019 10:58 AM MASTER CERTIFIED RV TECHNICIAN Dysuria INR, POCT, B Routine 11/09/2019 3:29 PM MASTER CERTIFIED RV TECHNICIAN INR, POCT, B Routine 10/19/2019 9:36 AM MASTER CERTIFIED RV TECHNICIAN INR, POCT, B Routine 09/07/2019 9:34 AM [...] Atrial (HCC) HOLTER MONITOR - IN CLINIC DRUM MAKER Routine 03/15/2019 11:31 AM CDT Pain Chest INR, POCT, B Routine 03/09/2019 9:40 AM CDT INR, POCT, B Routine 02/23/2019 3:48 PM CDT ECG Routine 02/20/2019 11:09 AM CDT Fibrillation Atrial (HCC) INR, POCT, B Routine 02/16/2019 2:09 PM CDT INR, POCT, B Routine 01/05/2019 1:01 PM MASTER CERTIFIED RV TECHNICIAN TX ARTHCS ASP/INJ MJR JT W US Routine 12/21/2018 11:30 AM MASTER CERTIFIED RV TECHNICIAN Rotator Cuff Disorder Right INR, POCT, B Routine 12/21/2018 11:15 AM MASTER CERTIFIED RV TECHNICIAN INTERNAL MEDICINE IMAGE EXAM Routine 12/21/2018 11:10 AM MASTER CERTIFIED RV TECHNICIAN DX SHOULDER RIGHT 2+ VIEWS RAD - Routine (most inpatients and all outpatients) 12/02/2018 11:53 AM MASTER CERTIFIED RV TECHNICIAN Rotator Cuff Disorder Right DX KNEE RIGHT WITH FLEXION AND PATELLA 4 VIEWS RAD - Routine (most inpatients and all outpatients) 12/02/2018 11:53 AM MASTER CERTIFIED RV TECHNICIAN Primary Osteoarthritis Knee Right INR, POCT, B Routine 12/01/2018 9:25 AM MASTER CERTIFIED RV TECHNICIAN INR, POCT, B Routine 11/17/2018 11:09 AM MASTER CERTIFIED RV TECHNICIAN INR, POCT, B Routine 11/03/2018 2:12 PM MASTER CERTIFIED RV TECHNICIAN ECG Routine 10/31/2018 10:24 AM MASTER CERTIFIED RV TECHNICIAN Fibrillation Atrial (HCC) CREATININE WITH EGFR, S/P Routine 10/31/2018 10:05 AM MASTER CERTIFIED RV TECHNICIAN Fibrillation Atrial (HCC) SODIUM, S/P Routine 10/31/2018 10:05 AM MASTER CERTIFIED RV TECHNICIAN Fibrillation Atrial (HCC) POTASSIUM, S/P Routine 10/31/2018 10:05 AM MASTER CERTIFIED RV TECHNICIAN Fibrillation Atrial (HCC) INR, POCT, B Routine 10/27/2018 9:29 AM MASTER CERTIFIED RV TECHNICIAN INR, POCT, B Routine 10/20/2018 11:06 AM MASTER CERTIFIED RV TECHNICIAN PROTHROMBIN TIME (PT), P Routine 10/07/2018 11:38 AM MASTER CERTIFIED RV TECHNICIAN INR, POCT, B Routine 09/28/2018 11:13 AM MASTER CERTIFIED RV TECHNICIAN INR, POCT, B Routine 09/22/2018 1:13 PM MASTER CERTIFIED RV TECHNICIAN PROTHROMBIN TIME (PT), P Routine 09/19/2018 9:55 AM MASTER CERTIFIED RV TECHNICIAN Fibrillation Atrial (HCC) Monitoring For Therapeutic Drug Therapy Garment Sorter Anticoagulant Treatment Anticoagulant Therapy Thrombosis Deep Vein [...] POCT, B Routine 07/07/2018 10:20 AM CDT TX ARTHCS ASP/INJ MJR JT WO US Routine [...] TIME (PT), P Routine 01/10/2018 9:04 AM MASTER CERTIFIED RV TECHNICIAN Anticoagulant Therapy Monitoring For Therapeutic Drug Therapy Fibrillation Atrial (HCC) INR, POCT, B Routine 01/06/2018 9:10 AM MASTER CERTIFIED RV TECHNICIAN DX CHEST AP OR PA AND LATERAL 2 VIEWS RAD - Routine (most inpatients and all outpatients) 12/23/2017 10:54 AM MASTER CERTIFIED RV TECHNICIAN Cough Fatigue THYROID-STIMULATING HORMONE-SENSITIVE (S-TSH) Routine 12/23/2017 9:33 AM MASTER CERTIFIED RV TECHNICIAN Cough Fatigue C-REACTIVE PROTEIN, HIGH SENSITIVITY, S/P Routine 12/23/2017 9:33 AM MASTER CERTIFIED RV TECHNICIAN Cough Fatigue FERRITIN, S Routine 12/23/2017 9:33 AM MASTER CERTIFIED RV TECHNICIAN Cough Fatigue COMPREHENSIVE METABOLIC PANEL, S/P Routine 12/23/2017 9:33 AM MASTER CERTIFIED RV TECHNICIAN Cough Fatigue CBC WITH DIFFERENTIAL, B Routine 12/23/2017 9:33 AM MASTER CERTIFIED RV TECHNICIAN Cough Fatigue INR, POCT, B Routine 11/25/2017 8:57 AM MASTER CERTIFIED RV TECHNICIAN PROTHROMBIN TIME (PT), P Routine 10/28/2017 9:12 AM MASTER CERTIFIED RV TECHNICIAN Anticoagulant Therapy Monitoring For Therapeutic Drug Therapy Fibrillation Atrial (HCC) PROTHROMBIN TIME (PT), P Routine 09/30/2017 11:00 AM MASTER CERTIFIED RV TECHNICIAN Monitoring For Therapeutic Drug Therapy INR, POCT, [...] CDT PROTIME/INR POC-LAB Routine 01/07/2017 8:15 AM MASTER CERTIFIED RV TECHNICIAN DX KNEE UNILATERAL 3 VIEWS Routine 01/06/2017 11:03 AM MASTER CERTIFIED RV TECHNICIAN CT MAXILLOFACIAL WITHOUT IV CONTRAST Routine 11/29/2016 2:57 PM MASTER CERTIFIED RV TECHNICIAN CBC WITH DIFFERENTIAL, B Routine 11/29/2016 1:19 PM MASTER CERTIFIED RV TECHNICIAN PROTHROMBIN TIME (PT), P Routine 11/29/2016 1:19 PM MASTER CERTIFIED RV TECHNICIAN C-REACTIVE PROTEIN (CRP), S/P Routine 11/29/2016 1:19 PM MASTER CERTIFIED RV TECHNICIAN BASIC METABOLIC PANEL, S/P Routine 11/29/2016 1:19 PM MASTER CERTIFIED RV TECHNICIAN CARDIAC BIOMARKER PANEL, S Routine 11/29/2016 1:19 PM MASTER CERTIFIED RV TECHNICIAN SEDIMENTATION RATE, B Routine 11/29/2016 1:19 PM MASTER CERTIFIED RV TECHNICIAN ECG Routine 11/29/2016 12:25 PM MASTER CERTIFIED RV TECHNICIAN PROTIME (PT/INR), POCT, B Routine 10/30/2016 10:05 AM MASTER CERTIFIED RV TECHNICIAN PROTIME (PT/INR), POCT, B Routine 10/16/2016 9:11 AM MASTER CERTIFIED RV TECHNICIAN FERRITIN, S Routine 10/13/2016 1:23 PM MASTER CERTIFIED RV TECHNICIAN PROTIME/INR POC-LAB Routine 10/01/2016 9:41 AM MASTER CERTIFIED RV TECHNICIAN PROTIME/INR POC-LAB Routine 09/15/2016 11:13 AM CDT [...] (PT/INR), POCT, B Routine 12/13/2015 8:08 AM MASTER CERTIFIED RV TECHNICIAN PROTIME/INR POC-LAB Routine 12/10/2015 8:18 AM MASTER CERTIFIED RV TECHNICIAN LIPID PANEL, S Routine 12/09/2015 8:15 AM MASTER CERTIFIED RV TECHNICIAN THYROID FUNCTION CASCADE, S Routine 12/09/2015 8:15 AM MASTER CERTIFIED RV TECHNICIAN PROTIME/INR POC-LAB Routine 11/26/2015 11:00 AM MASTER CERTIFIED RV TECHNICIAN PROTIME (PT/INR), POCT, B Routine 10/11/2015 8:13 AM MASTER CERTIFIED RV TECHNICIAN PROTIME/INR POC-LAB Routine 09/17/2015 9:50 AM MASTER CERTIFIED RV TECHNICIAN PROTIME/INR POC-LAB Routine 08/20/2015 10:25 AM CDT [...] (PT/INR), POCT, B Routine 12/07/2014 3:29 PM MASTER CERTIFIED RV TECHNICIAN PROTIME/INR POC-LAB Routine 12/04/2014 9:49 AM MASTER CERTIFIED RV TECHNICIAN PROTHROMBIN TIME (PT), P Routine 12/03/2014 9:10 AM MASTER CERTIFIED RV TECHNICIAN PROTHROMBIN TIME (PT), P Routine 12/02/2014 8:58 AM MASTER CERTIFIED RV TECHNICIAN PROTHROMBIN TIME (PT), P Routine 12/01/2014 9:42 AM MASTER CERTIFIED RV TECHNICIAN DX CHEST AP OR PA AND LATERAL 2 VIEWS Routine 12/01/2014 7:24 AM MASTER CERTIFIED RV TECHNICIAN CBC WITHOUT DIFFERENTIAL, B Routine 12/01/2014 5:16 AM MASTER CERTIFIED RV TECHNICIAN ELECTROLYTE (CHEM 4) PANEL, S/P Routine 12/01/2014 5:16 AM MASTER CERTIFIED RV TECHNICIAN CBC WITHOUT DIFFERENTIAL, B Routine 12/01/2014 5:16 AM MASTER CERTIFIED RV TECHNICIAN ECG Routine 12/01/2014 5:15 AM MASTER CERTIFIED RV TECHNICIAN ACT, POCT, B Routine 11/30/2014 4:19 PM MASTER CERTIFIED RV TECHNICIAN ACT, POCT, B Routine 11/30/2014 2:45 PM MASTER CERTIFIED RV TECHNICIAN PROTHROMBIN TIME (PT), P Routine 11/30/2014 1:47 PM MASTER CERTIFIED RV TECHNICIAN ACT, POCT, B Routine 11/30/2014 1:04 PM MASTER CERTIFIED RV TECHNICIAN ACT, POCT, B Routine 11/30/2014 12:30 PM MASTER CERTIFIED RV TECHNICIAN ACT, POCT, B Routine 11/30/2014 12:01 PM MASTER CERTIFIED RV TECHNICIAN ACT, POCT, B Routine 11/30/2014 11:37 AM MASTER CERTIFIED RV TECHNICIAN ACT, POCT, B Routine 11/30/2014 11:17 AM MASTER CERTIFIED RV TECHNICIAN ACT, POCT, B Routine 11/30/2014 10:57 AM MASTER CERTIFIED RV TECHNICIAN ACT, POCT, B Routine 11/30/2014 10:23 AM MASTER CERTIFIED RV TECHNICIAN ACT, POCT, B Routine 11/30/2014 9:57 AM MASTER CERTIFIED RV TECHNICIAN HEART RHYTHM PROCEDURE - ABLATION Routine 11/30/2014 7:59 AM MASTER CERTIFIED RV TECHNICIAN PROTHROMBIN TIME (PT), P Routine 11/30/2014 6:58 AM MASTER CERTIFIED RV TECHNICIAN ECHOCARDIOLOGY IMAGE EXAM Routine 11/29/2014 12:25 PM MASTER CERTIFIED RV TECHNICIAN ECHO TRANSESOPHAGEAL (THU) Routine 11/29/2014 12:20 PM MASTER CERTIFIED RV TECHNICIAN ECG Routine 11/29/2014 9:36 AM MASTER CERTIFIED RV TECHNICIAN ANTIBODY SCREEN, B Routine 11/29/2014 8:25 AM MASTER CERTIFIED RV TECHNICIAN ABORH, RBC Routine 11/29/2014 8:25 AM MASTER CERTIFIED RV TECHNICIAN CBC WITH DIFFERENTIAL, B Routine 11/29/2014 7:47 AM MASTER CERTIFIED RV TECHNICIAN THYROID FUNCTION CASCADE, S Routine 11/29/2014 7:47 AM MASTER CERTIFIED RV TECHNICIAN PROTHROMBIN TIME (PT), P Routine 11/29/2014 7:47 AM MASTER CERTIFIED RV TECHNICIAN POTASSIUM, S/P Routine 11/29/2014 7:47 AM MASTER CERTIFIED RV TECHNICIAN ALANINE AMINOTRANSFERASE (ALT), S/P Routine 11/29/2014 7:47 AM MASTER CERTIFIED RV TECHNICIAN CREATININE WITH EGFR, S/P Routine 11/29/2014 7:47 AM MASTER CERTIFIED RV TECHNICIAN SODIUM, S/P Routine 11/29/2014 7:47 AM MASTER CERTIFIED RV TECHNICIAN THYROPEROXIDASE (TPO) ABS, S Routine 11/29/2014 7:47 AM MASTER CERTIFIED RV TECHNICIAN T4 (THYROXINE), FREE, S Routine 11/29/2014 7:47 AM MASTER CERTIFIED RV TECHNICIAN PROTIME/INR POC-LAB Routine 11/27/2014 10:27 AM MASTER CERTIFIED RV TECHNICIAN PROTIME (PT/INR), POCT, B Routine 11/16/2014 4:13 PM MASTER CERTIFIED RV TECHNICIAN ECG Routine 11/13/2014 1:02 PM MASTER CERTIFIED RV TECHNICIAN PROTIME/INR POC-LAB Routine 11/13/2014 11:11 AM MASTER CERTIFIED RV TECHNICIAN ECG HEART RHYTHM MONITOR (HOLTER) Routine 11/05/2014 8:23 AM MASTER CERTIFIED RV TECHNICIAN ECG HEART RHYTHM MONITOR (HOLTER) Routine 10/23/2014 8:04 PM MASTER CERTIFIED RV TECHNICIAN US LOWER EXTREMITY VEINS Routine 10/23/2014 5:51 PM MASTER CERTIFIED RV TECHNICIAN BASIC METABOLIC PANEL, S/P Routine 10/23/2014 4:11 PM MASTER CERTIFIED RV TECHNICIAN ACTIVATED PARTIAL THROMBOPLASTIN TIME (APTT), P Routine 10/23/2014 4:11 PM MASTER CERTIFIED RV TECHNICIAN CBC WITHOUT DIFFERENTIAL, B Routine 10/23/2014 4:11 PM MASTER CERTIFIED RV TECHNICIAN PROTHROMBIN TIME (PT), P Routine 10/23/2014 4:11 PM MASTER CERTIFIED RV TECHNICIAN ECG Routine 10/23/2014 3:51 PM MASTER CERTIFIED RV TECHNICIAN PROTIME/INR POC-LAB Routine 10/17/2014 9:25 AM MASTER CERTIFIED RV TECHNICIAN THYROID FUNCTION CASCADE, S Routine 10/17/2014 9:25 AM MASTER CERTIFIED RV TECHNICIAN RAPID STREP A SCREEN Routine 10/17/2014 8:52 AM MASTER CERTIFIED RV TECHNICIAN DX CHEST AP OR PA AND LATERAL 2 VIEWS Routine 10/08/2014 11:42 AM MASTER CERTIFIED RV TECHNICIAN AUTOMATED DIFFERENTIAL, B Routine 10/08/2014 11:21 AM MASTER CERTIFIED RV TECHNICIAN CBC WITH DIFFERENTIAL, B Routine 10/08/2014 11:21 AM MASTER CERTIFIED RV TECHNICIAN PROTIME/INR POC-LAB Routine 10/02/2014 9:46 AM MASTER CERTIFIED RV TECHNICIAN ECG Routine 09/27/2014 9:10 AM MASTER CERTIFIED RV TECHNICIAN PROTIME/INR POC-LAB Routine 09/18/2014 10:42 AM MASTER CERTIFIED RV TECHNICIAN PROTIME (PT/INR), POCT, B Routine 08/20/2014 4:26 [...] US ABDOMEN COMPLETE Routine 01/16/2014 11:00 AM MASTER CERTIFIED RV TECHNICIAN DX CHEST AP OR PA AND LATERAL 2 VIEWS Routine 01/16/2014 9:08 AM MASTER CERTIFIED RV TECHNICIAN DX CHEST PORTABLE 1 VIEW Routine 12/26/2013 [...] MST PROTIME/INR POC-LAB Routine 12/12/2013 10:13 AM MASTER CERTIFIED RV TECHNICIAN PROTIME/INR POC-LAB Routine 11/28/2013 8:55 AM MASTER CERTIFIED RV TECHNICIAN DX CHEST AP OR PA AND LATERAL 2 VIEWS Routine 11/25/2013 7:28 AM MASTER CERTIFIED RV TECHNICIAN ECG Routine 11/25/2013 5:35 AM MASTER CERTIFIED RV TECHNICIAN ELECTROLYTE (CHEM 4) PANEL, S/P Routine 11/25/2013 4:37 AM MASTER CERTIFIED RV TECHNICIAN PROTHROMBIN TIME (PT), P Routine 11/25/2013 4:37 AM MASTER CERTIFIED RV TECHNICIAN CBC WITHOUT DIFFERENTIAL, B Routine 11/25/2013 4:37 AM MASTER CERTIFIED RV TECHNICIAN ACT, POCT, B Routine 11/24/2013 2:01 PM MASTER CERTIFIED RV TECHNICIAN ACT, POCT, B Routine 11/24/2013 1:44 PM MASTER CERTIFIED RV TECHNICIAN ACT, POCT, B Routine 11/24/2013 1:11 PM MASTER CERTIFIED RV TECHNICIAN ACT, POCT, B Routine 11/24/2013 12:34 PM MASTER CERTIFIED RV TECHNICIAN ACT, POCT, B Routine 11/24/2013 11:57 AM MASTER CERTIFIED RV TECHNICIAN ACT, POCT, B Routine 11/24/2013 11:23 AM MASTER CERTIFIED RV TECHNICIAN ACT, POCT, B Routine 11/24/2013 10:59 AM MASTER CERTIFIED RV TECHNICIAN ACT, POCT, B Routine 11/24/2013 10:27 AM MASTER CERTIFIED RV TECHNICIAN ACT, POCT, B Routine 11/24/2013 9:57 AM MASTER CERTIFIED RV TECHNICIAN CARDIOLOGY IMAGE EXAM Routine 11/24/2013 9:02 AM MASTER CERTIFIED RV TECHNICIAN HEART RHYTHM PROCEDURE - ABLATION Routine 11/24/2013 7:47 AM MASTER CERTIFIED RV TECHNICIAN PROTHROMBIN TIME (PT), P Routine 11/24/2013 6:45 AM MASTER CERTIFIED RV TECHNICIAN ECHOCARDIOLOGY IMAGE EXAM Routine 11/23/2013 1:22 PM MASTER CERTIFIED RV TECHNICIAN ECHO TRANSESOPHAGEAL (THU) Routine 11/23/2013 1:21 PM MASTER CERTIFIED RV TECHNICIAN ECG Routine 11/23/2013 11:01 AM MASTER CERTIFIED RV TECHNICIAN ECHO TRANSTHORACIC (TTE) Routine 11/23/2013 9:23 AM MASTER CERTIFIED RV TECHNICIAN ECHOCARDIOLOGY IMAGE EXAM Routine 11/23/2013 9:19 AM MASTER CERTIFIED RV TECHNICIAN ANTIBODY SCREEN, B Routine 11/23/2013 9:14 AM MASTER CERTIFIED RV TECHNICIAN ABORH, RBC Routine 11/23/2013 9:14 AM MASTER CERTIFIED RV TECHNICIAN CBC WITH DIFFERENTIAL, B Routine 11/23/2013 8:35 AM MASTER CERTIFIED RV TECHNICIAN POTASSIUM, S/P Routine 11/23/2013 8:35 AM MASTER CERTIFIED RV TECHNICIAN THYROID FUNCTION CASCADE, S Routine 11/23/2013 8:35 AM MASTER CERTIFIED RV TECHNICIAN SODIUM, S/P Routine 11/23/2013 8:35 AM MASTER CERTIFIED RV TECHNICIAN ALANINE AMINOTRANSFERASE (ALT), S/P Routine 11/23/2013 8:35 AM MASTER CERTIFIED RV TECHNICIAN PROTHROMBIN TIME (PT), P Routine 11/23/2013 8:35 AM MASTER CERTIFIED RV TECHNICIAN CREATININE WITH EGFR, S/P Routine 11/23/2013 8:35 AM MASTER CERTIFIED RV TECHNICIAN PROTIME/INR POC-LAB Routine 10/24/2013 2:04 PM MASTER CERTIFIED RV TECHNICIAN INR, POCT, B Routine 10/24/2013 10:25 AM MASTER CERTIFIED RV TECHNICIAN PUL HOME OVERNIGHT OXIMETRY Routine 10/19/2013 3:16 PM MASTER CERTIFIED RV TECHNICIAN INR, POCT, B Routine 10/05/2013 1:33 PM MASTER CERTIFIED RV TECHNICIAN PROTIME/INR POC-LAB Routine 09/18/2013 10:41 AM MASTER CERTIFIED RV TECHNICIAN INR, POCT, B Routine 09/15/2013 8:05 AM [...] CDT PROTIME/INR POC-LAB Routine 01/17/2013 9:30 AM MASTER CERTIFIED RV TECHNICIAN DX PELVIS 1-2 VIEWS Routine 01/12/2013 10:35 AM MASTER CERTIFIED RV TECHNICIAN CYCLIC CITRULLINATED PEPTIDE ABS, IGG, S Routine 01/05/2013 1:56 PM MASTER CERTIFIED RV TECHNICIAN AB TO EXTRACTABLE NUCLEAR AG EVAL, S Routine 01/05/2013 1:56 PM MASTER CERTIFIED RV TECHNICIAN THYROID-STIMULATING HORMONE-SENSITIVE (S-TSH) Routine 01/05/2013 1:56 PM MASTER CERTIFIED RV TECHNICIAN CREATINE KINASE (CK), S Routine 01/05/2013 1:56 PM MASTER CERTIFIED RV TECHNICIAN SEDIMENTATION RATE, B Routine 01/05/2013 1:56 PM MASTER CERTIFIED RV TECHNICIAN PROTHROMBIN TIME (PT), P Routine 12/23/2012 11:03 AM MASTER CERTIFIED RV TECHNICIAN PHYSICAL MEDICINE AND REHAB IMAGE EXAM Routine 12/23/2012 8:22 AM MASTER CERTIFIED RV TECHNICIAN MR PELVIS WITHOUT IV CONTRAST Routine 12/20/2012 4:22 PM MASTER CERTIFIED RV TECHNICIAN DX SACROILIAC JOINTS 3+ VIEWS Routine 12/20/2012 12:19 PM MASTER CERTIFIED RV TECHNICIAN INR, POCT, B Routine 12/16/2012 10:19 AM MASTER CERTIFIED RV TECHNICIAN CT ABDOMEN PELVIS WITHOUT IV CONTRAST Routine 10/24/2012 8:57 PM MASTER CERTIFIED RV TECHNICIAN ELECTROLYTE (CHEM 4) PANEL, S/P Routine 10/24/2012 8:00 PM MASTER CERTIFIED RV TECHNICIAN CBC WITH DIFFERENTIAL, B Routine 10/24/2012 8:00 PM MASTER CERTIFIED RV TECHNICIAN FL ESOPHAGRAM SINGLE CONTRAST Routine 10/11/2012 1:23 PM MASTER CERTIFIED RV TECHNICIAN INR, POCT, B Routine 10/04/2012 8:06 AM MASTER CERTIFIED RV TECHNICIAN INR, POCT, B Routine 09/22/2012 9:41 AM MASTER CERTIFIED RV TECHNICIAN CBC WITH DIFFERENTIAL, B Routine 09/21/2012 4:37 PM MASTER CERTIFIED RV TECHNICIAN PROTHROMBIN TIME (PT), P Routine 09/21/2012 4:37 PM MASTER CERTIFIED RV TECHNICIAN CREATININE WITH EGFR, S/P Routine 09/21/2012 4:37 PM MASTER CERTIFIED RV TECHNICIAN DX KNEE UNILATERAL 3 VIEWS Routine 09/12/2012 [...] CDT PROTIME/INR POC-LAB Routine 01/22/2012 9:51 AM MASTER CERTIFIED RV TECHNICIAN DX CLAVICLE SERENDIPITY 1 VIEW Routine 12/27/2011 7:16 PM MASTER CERTIFIED RV TECHNICIAN DX CLAVICLE UNILATERAL Routine 2 2:53 PM MASTER CERTIFIED RV TECHNICIAN DX CHEST AP OR PA AND LATERAL 2 VIEWS Routine 12/27/2011 2:43 PM MASTER CERTIFIED RV TECHNICIAN PROTIME/INR POC-LAB Routine 12/21/2011 8:17 AM MASTER CERTIFIED RV TECHNICIAN OUTSIDE DX SKELETAL Routine 12/16/2011 1:44 AM MASTER CERTIFIED RV TECHNICIAN OUTSIDE DX SKELETAL Routine 12/16/2011 1:44 AM MASTER CERTIFIED RV TECHNICIAN OUTSIDE DX CHEST Routine 12/16/2011 1:44 AM MASTER CERTIFIED RV TECHNICIAN PROTIME/INR POC-LAB Routine 12/09/2011 9:34 AM MASTER CERTIFIED RV TECHNICIAN DX HIP TO ANKLE STANDING Routine 12/08/2011 1:15 PM MASTER CERTIFIED RV TECHNICIAN DX KNEE UNILATERAL 2 VIEWS Routine 12/08/2011 1:14 PM MASTER CERTIFIED RV TECHNICIAN PROTIME/INR POC-LAB Routine 11/24/2011 8:31 AM MASTER CERTIFIED RV TECHNICIAN DX CHEST AP OR PA AND LATERAL 2 VIEWS Routine 09/25/2011 5:43 PM MASTER CERTIFIED RV TECHNICIAN NM LUNG VENTILATION AND PERFUSION Routine 09/25/2011 5:24 PM MASTER CERTIFIED RV TECHNICIAN ECG Routine 09/25/2011 10:07 AM MASTER CERTIFIED RV TECHNICIAN CT ABDOMEN PELVIS WITHOUT IV CONTRAST Routine 09/25/2011 8:52 AM MASTER CERTIFIED RV TECHNICIAN DX CHEST AP OR PA AND LATERAL 2 VIEWS Routine 09/22/2011 1:26 PM MASTER CERTIFIED RV TECHNICIAN ECG Routine 09/21/2011 7:07 PM MASTER CERTIFIED RV TECHNICIAN ECHOCARDIOLOGY IMAGE EXAM Routine 09/21/2011 2:26 PM MASTER CERTIFIED RV TECHNICIAN ECHOCARDIOGRAM Routine 09/21/2011 2:05 PM MASTER CERTIFIED RV TECHNICIAN ECG Routine 09/21/2011 10:30 AM MASTER CERTIFIED RV TECHNICIAN DX WRIST 2 VIEWS Routine 09/21/2011 5:32 AM MASTER CERTIFIED RV TECHNICIAN DX CHEST AP OR PA AND LATERAL 2 VIEWS Routine 09/21/2011 5:32 AM MASTER CERTIFIED RV TECHNICIAN DX KNEE UNILATERAL 2 VIEWS Routine 09/21/2011 5:32 AM MASTER CERTIFIED RV TECHNICIAN DX CHEST AP OR PA AND LATERAL [...] UNILATERAL 2 VIEWS Routine 12/04/2009 9:54 AM MASTER CERTIFIED RV TECHNICIAN DX FOOT UNILATERAL 3+ VIEWS Routine 11/04/2009 11:52 AM MASTER CERTIFIED RV TECHNICIAN HXGENERAL PATHOLOGY REPORT Routine 10/08/2009 8:32 AM MASTER CERTIFIED RV TECHNICIAN BI BREAST SCREENING UNILATERAL Routine 09/04/2009 10:06 [...] PM CDT POLYSOMNOGRAPHY Routine 11/20/2007 10:38 PM MASTER CERTIFIED RV TECHNICIAN ECHOCARDIOLOGY IMAGE EXAM Routine 11/16/2007 12:36 PM MASTER CERTIFIED RV TECHNICIAN ECHOCARDIOGRAM Routine 11/16/2007 12:32 PM MASTER CERTIFIED RV TECHNICIAN PUL HOME OVERNIGHT OXIMETRY Routine 11/15/2007 10:45 PM MASTER CERTIFIED RV TECHNICIAN ECG Routine 11/15/2007 6:31 PM MASTER CERTIFIED RV TECHNICIAN DX CHEST AP OR PA AND LATERAL 2 VIEWS Routine 11/15/2007 1:53 PM MASTER CERTIFIED RV TECHNICIAN ECG Routine 11/15/2007 12:41 PM MASTER CERTIFIED RV TECHNICIAN BI BREAST SCREENING UNILATERAL Routine 06/29/2007 2:35 PM CDT US EXTREMITY VEINS Routine 04/08/2007 10:47 AM CDT FL ESOPHAGRAM SINGLE CONTRAST Routine 03/14/2007 9:02 AM CDT FL SWALLOW FUNCTION AND ESOPHAGRAM WITH VIDEO Routine 03/14/2007 9:02 AM CDT PULMONARY FUNCTION TESTS Routine 03/08/2007 2:55 PM CDT DX CHEST AP OR PA AND LATERAL 2 VIEWS Routine 12/21/2006 11:47 AM MASTER CERTIFIED RV TECHNICIAN DX ABDOMEN 1 VIEW Routine 12/21/2006 11:47 AM MASTER CERTIFIED RV TECHNICIAN ANTIBODY SCREEN, B Routine 07/13/2006 11:29 AM [...] UNILATERAL 3 VIEWS Routine 12/30/2004 10:41 AM MASTER CERTIFIED RV TECHNICIAN MR LOWER EXTREMITY Routine 08/12/2004 4:31 PM [...] US EXTREMITY VEINS Routine 11/16/2003 1:14 PM MASTER CERTIFIED RV TECHNICIAN PULMONARY FUNCTION TESTS Routine 01/18/2003 4:04 PM MASTER CERTIFIED RV TECHNICIAN CT CHEST WITHOUT IV CONTRAST Routine 01/18/2003 1:03 PM MASTER CERTIFIED RV TECHNICIAN BI BREAST SCREENING UNILATERAL Routine 01/18/2003 11:28 AM MASTER CERTIFIED RV TECHNICIAN PULMONARY FUNCTION TESTS Routine 01/18/2003 7:21 AM MASTER CERTIFIED RV TECHNICIAN DX CHEST AP OR PA AND LATERAL 2 VIEWS Routine 01/15/2003 3:00 PM MASTER CERTIFIED RV TECHNICIAN DX CHEST AP OR PA AND LATERAL 2 VIEWS Routine 08/19/2002 2:00 PM CDT BI BREAST SCREENING UNILATERAL Routine 12/16/2001 8:39 AM MASTER CERTIFIED RV TECHNICIAN CYTOLOGY Routine 12/06/2001 3:41 PM MASTER CERTIFIED RV TECHNICIAN US EXTREMITY VEINS Routine 10/26/2001 11:03 PM MASTER CERTIFIED RV TECHNICIAN MR LUMBAR SPINE WITHOUT IV CONTRAST Routine 10/24/2001 8:26 AM MASTER CERTIFIED RV TECHNICIAN DX LUMBAR SPINE 4+ VIEWS Routine 07/06/2001 1:[address] HEAD WITHOUT IV CONTRAST Routine 06/15/2001 9:35 AM CDT BI BREAST SCREENING UNILATERAL Routine 11/26/2000 11:35 AM MASTER CERTIFIED RV TECHNICIAN HXGENERAL PATHOLOGY REPORT Routine 12/02/1999 9:19 AM MASTER CERTIFIED RV TECHNICIAN HXSTAN SURG BLD ORDER Routine 12/02/1999 6:40 AM MASTER CERTIFIED RV TECHNICIAN ABORH, RBC Routine 12/02/1999 6:40 AM MASTER CERTIFIED RV TECHNICIAN ECG Routine 11/05/1999 4:13 PM MASTER CERTIFIED RV TECHNICIAN US PELVIS TRANSVAGINAL AND TRANSABDOMINAL Routine 10/24/1999 2:38 PM MASTER CERTIFIED RV TECHNICIAN CYTOLOGY Routine 10/21/1999 2:00 PM MASTER CERTIFIED RV TECHNICIAN BI BREAST SCREENING BILATERAL Routine 04/01/1999 4:16 PM CDT CYTOLOGY Routine 01/07/1996 6:58 PM MASTER CERTIFIED RV TECHNICIAN ECG Routine 01/07/1996 11:07 AM MASTER CERTIFIED RV TECHNICIAN DERMATOPATHOLOGY Routine 10/29/1995 1:37 PM MASTER CERTIFIED RV TECHNICIAN ECG Routine 03/31/1994 11:52 AM CDT Results * Prothrombin Time (PT) (07/31/2024) Only the most recent of178 resultswithin the time period is included. EXT INR 2.00 PATIENT PO INT OF CARE DEVICE Blood (Blood, Venous) 07/31/2024 Historical Provider LAB BLOOD ADD-ON PATIENT POINT OF CARE DEVICE * HOLTER MONITOR - IN CLINIC DRUM MAKER (07/12/2024 11:16 AM CDT) Only the most recent of9 resultswithin the time period is included. Min Heart Rate 54 bpm INFOB IONIC MOME Max Heart Rate 89 bpm INFOB IONIC MOME Mean Heart Rate 62 bpm INFOBIONIC MOME VE Total Beats 91 count INFOB IONIC MOME VE Percent Beats less than 1 percent INFOBIONIC MOME SVE Total Beats 249 count INFOBIONIC MOME SVE Percent Beats less than 1 percent INFOBIONIC MOME AF Count 0 count INFOBIONIC MOME AF Duration 0 duration INFOBION IC MOME AF [place] 0 percent INFOBIONIC MOME Symptom Count 0 count INFOBI ONIC MOME 07/11/2024 2:50 PM CDT Narrative INFOBIONIC MOME - 07/13/2024 2:18 PM CDT 1. The basic rhythm was sinus. Varying P wave morphology was also noted. The total analyzed time was 21h 19m. The heart rate varied from 54 to 89 bpm. The average HR was 62 bpm. 2. Premature ventricular complexes were noted singly, fused, interpolated, and in pairs. There was one 4 beat run of non-sustained ventricular tachycardia observed with a maximum rate of 127 bpm. There were 91 PVCs recorded with a PVC burden of less than 1%. 3. Premature supraventricular complexes were noted singly, in pairs, with aberrancy, and in twenty-three 3 to 30 beat atrial runs, at times with aberrancy, with a maximum rate of 140 bpm. There were 249 PACs recorded with a PAC burden of less than 1%. Note: Some atrial runs were interrupted by PVCs and/or aberrantly conducted complexes. 4. No symptomatic events were noted. Environmental Sciences Professor: Rayne Casillas, CCT / Rosalba Gomez, CCT Procedure Note Freeman Davis Jr., M.D. - 07/13/2024 1. The basic rhythm was sinus. Varying P wave morphology was also noted.The total analyzed time was 21h 19m. The heart rate varied from 54 to 89bpm. The average HR was 62 bpm. 2. Premature ventricular complexes were noted singly, fused, interpolated,and in pairs. There was one 4 beat run of non-sustained ventriculartachycardia observed with a maximum rate of 127 bpm. There were 91 PVCsrecorded with a PVC burden of less than 1%. 3. Premature supraventricular complexes were noted singly, in pairs, withaberrancy, and in twenty-three 3 to 30 beat atrial runs, at times withaberrancy, with a maximum rate of 140 bpm. There were 249 PACs recordedwith a PAC burden of less than 1%. Note: Some atrial runs were interrupted by PVCs and/or aberrantlyconducted complexes. 4. No symptomatic events were noted. Environmental Sciences Professor: Rayne Casillas, CCT / Rosalba Gomez, CCT Ap Buckley M.D., Ph.D. CV CARDIAC S ERVICES PROCEDURES Performing Organization Address City/[facility]/ZIP Co de Phone Number INFOBIONIC MOME NA * ECG 12 Lead (07/11/2024 2:27 PM CDT) Only the most recent of76 resultswithin the time period is included. Ventricular Rate ECG/Min 54 BPM MUSE TX Interval 196 ms MUSE QRSD Interval 86 ms MUSE QT Interval 464 ms MUSE QTC Interval 440 ms MUSE P [place] 20 degrees MUSE R [place] 21 degrees MUSE T Wave [place] 33 degrees MUSE 07/11/2024 2:27 PM CDT 07/11/2024 4:24 PM CDT Impressions MUSE - 07/11/2024 2:29 PM CDT Sinus bradycardia Low anterior forces slight ST-elevation anterior leads, consider early repolarization or pericarditis When compared with ECG of 27-Apr-2024 08:55, TX interval has decreased Slight ST-elevation now present Revised Report Narrative Procedure Note Freeman Davis Jr., M.D. - 07/11/2024 IMPRESSION: Sinus bradycardia Low anterior forces slight ST-elevation anterior leads, consider early repolarization orpericarditis When compared with ECG of 27-Apr-2024 08:55, TX interval has decreased Slight ST-elevation now present Revised Report Ap Buckley M.D., Ph.D. ECG ORDERABL ES Performing Organization Address [facility]/ZIP Co de Phone Number MUSE NA * (TTE) 2D ECHO DOPPLER COLOR (04/27/2024 [...] was performed but not reported based on bilingual interpreter's judgment. Estimated right ventricular systolic pressure 30 [...] assessmentwas performed but not reported based on bilingual interpreter's judgment. Estimatedright ventricular systolic pressure 30 mmHg [...] M.D. IMG DIAGNOSTIC IMAGI NG PROCEDURES * (ABNORMAL) Lipid Panel (04/27/2024 8:42 AM [...] CDT Hugo Sanchez M.D. LAB BLOOD ADD-ON [facility] [address] [place] [address], [facility] [place]note 3[facility] [address] [place] [address] * NT-Pro B-Type Natriuretic Peptide (BNP) (04/27/2024 [...] M.D. LAB BLOOD ADD-ON [facility] [place] [address] [place] [address], [facility] [place]note 3] [address] [place] [address] * CBC with Differential, Blood (04/27/2024 8:42 [...] M.D. LAB BLOOD ADD-ON [facility] [place] [address] [place] [address], [place] [address] * BUN (Blood Urea Nitrogen) (04/27/2024 8:42 AM CDT) Only the most recent of2 resultswithin the time period is included. Pathologist [facility] BUN (Blood Urea Nitrogen), S 19 6 - 21 mg/dL 04/27/2024 10:16 AM CDT DTL Blood (Blood, Venous) 04/27/2024 8:42 AM CDT 04/27/2024 9:24 AM CDT Hugo Sanchez M.D. LAB BLOOD ADD-ON [facility] [place] [address] [place] [address] * AST (Aspartate Aminotransferase) (04/27/2024 8:42 AM CDT) Only the most recent of4 resultswithin the time period is included. Pathologist [facility] Aspartate Aminotransferase (AST), S 18 8 - 43 U/L 04/27/2024 10:16 AM CDT DT Blood (Blood, Venous) 04/27/2024 8:42 AM CDT 04/27/2024 9:24 AM CDT Hugo Sanchez M.D. LAB BLOOD ADD-ON [facility] [place] [address] [place] [address], [facility] [address] [place] [address] * (ABNORMAL) S-TSH (Thyroid-Stimulating Hormone - Sensitive) (04/27/2024 8:42 AM CDT) Only the most recent of6 resultswithin the time period is included. TSH, Sensitive 4.9(H) 0.3 - 4.2 mIU/L 04/27/2024 10:16 AM CDT DT Blood (Blood, Venous) 04/27/2024 8:42 AM CDT 04/27/2024 9:24 AM CDT Hugo Sanchez M.D. LAB BLOOD ADD-ON Performing Organization Address City/[facility]/ZIP Co de Phone Number [facility] [place] [address] [place] [address], [facility] [address] [place] [address] * Sodium (04/27/2024 8:42 AM CDT) Only the most recent of10 resultswithin the time period is included. Sodium, S 141 135 - 145 mmol/L 04/27/2024 10:16 AM CDT DT Blood (Blood, Venous) 04/27/2024 8:42 AM CDT 04/27/2024 9:24 AM CDT Hugo Sanchez M.D. LAB BLOOD ADD-ON Performing Organization Address City/[facility]/ZIP Co de Phone Number [facility] [place] [address] 200 [place] [address] * Potassium (04/27/2024 8:42 AM CDT) Only the most recent of19 resultswithin the time period is included. Potassium, S 4.4 3.6 - 5.2 mmol/L 04/27/2024 10:16 AM CDT DTL Blood (Blood, Venous) 04/27/2024 8:42 AM CDT 04/27/2024 9:24 AM CDT Ap Buckley M.D., Ph.D. LAB BLOOD AD D-ON [facility] [place] [address] [place] [address] * Glucose, Fasting (04/27/2024 8:42 AM CDT) Only the most recent of4 resultswithin the time period is included. Glucose, P 92 70 - 100 mg/dL 04/27/2024 9:59 AM CDT DTL Last Intake 15 hr 04/27/2024 9:22 AM CDT DT Blood (Blood, Venous) 04/27/2024 8:42 AM CDT 04/27/2024 9:22 AM CDT Hugo Sanchez M.D. LAB BLOOD NON ADD-ON [facility] [place] [address] [place] [address] * (ABNORMAL) Creatinine with Estimated GFR (04/27/2024 [...] LAB BLOOD AD D-ON Performing Organization Address City/[facility]/ZIP Co de Phone Number [facility] [place] 200 [place] [address], [facility] 200 [place] [address] * Bicarbonate (04/27/2024 8:42 AM CDT) Bicarbonate, S 26 22 - 29 mmol/L 04/27/2024 10:16 AM CDT DT Blood (Blood, Venous) 04/27/2024 8:42 AM CDT 04/27/2024 9:24 AM CDT Hugo Sanchez M.D. LAB BLOOD ADD-ON Performing Organization Address [facility] Co de Phone Number [facility] [place] [address] [place] [address], [facility] 200 [place] [address] * T4 (Thyroxine), Free, Serum (04/27/2024 8:37 AM CDT) T4 (Thyroxine), Free, S 1.2 0.9 - 1.7 ng/dL 04/28/2024 10:55 AM CDT DT Blood 04/27/2024 8:37 AM CDT 04/28/2024 9:54 AM CDT Hugo Sanchez M.D. LAB BLOOD ADD-ON Performing Organization Address City/[facility]/ZIP Co de Phone Number [facility] [place] [address] 200 [place] [address] * (ABNORMAL) Thyroid Function [place] (04/27/2024 8:37 AM CDT) Only the most recent of8 resultswithin the time period is included. TSH, Sensitive 4.9(H) 0.3 - 4.2 mIU/L 04/28/2024 10:35 AM CDT DT Blood (Blood, Venous) 04/27/2024 8:37 AM CDT 04/28/2024 9:54 AM CDT Hugo Sanchez M.D. LAB BLOOD ADD-ON [facility] [place] [address] 200 [place] [address] * Thyroperoxidase (TPO) Antibodies (04/27/2024 8:37 AM CDT) Only the most recent of2 resultswithin the time period is included. Thyroperoxidase Ab, S <15.0 <34.0 IU/mL 04/28/2024 10:55 AM CDT DT Blood 04/27/2024 8:37 AM CDT 04/28/2024 9:54 AM CDT Hugo Sanchez M.D. LAB BLOOD ADD-ON [facility] [place] [address] [place] [address], [facility] 200 [place] [address] * INR Reflex, POCT, Blood (03/29/2024 2:26 [...] ORDERABLE S - DEVICE Performing Organization Address [facility] Co de Phone Number [facility] [address] [place] [address], [facility] FB60 [facility] [place] [address] [place] [address] * INR, POCT (Manual) (12/13/2023) INR, POCT 3.40 PATIENT PO INT OF CARE DEVICE Blood (Blood, Venous) 12/13/2023 Narrative Resulting Agency Comment HM Emilia Lincoln M.D. LAB POCT ORDERABLE S-MANUAL Performing Organization Address [facility] Co de Phone Number PATIENT POINT OF CARE DEVICE * Home sleep apnea test (HSAT) (11/25/2023 10:32 AM MASTER CERTIFIED RV TECHNICIAN) Narrative ONBASE - 12/08/2023 10:21 AM MASTER CERTIFIED RV TECHNICIAN SUMMARY: Home sleep apnea test was performed [...] apnea. [facility] ORDERAB LES ONBASE NA * Renal Function Panel (11/10/2023 9:51 AM MASTER CERTIFIED RV TECHNICIAN) Potassium, P 4.1 3.6 - 5.2 mmol/L 11/10/2023 11:02 AM MASTER CERTIFIED RV TECHNICIAN OWAT Sodium, P 143 135 - 145 mmol/L 11/10/2023 11:02 AM MASTER CERTIFIED RV TECHNICIAN OWAT Chloride, P 107 98 - 107 mmol/L 11/10/2023 11:02 AM MASTER CERTIFIED RV TECHNICIAN OWAT Bicarbonate, P 26 22 - 29 mmol/L 11/10/2023 11:01 AM MASTER CERTIFIED RV TECHNICIAN OWAT Anion Gap, P 10 7 - 15 11/10/2023 11:02 AM MASTER CERTIFIED RV TECHNICIAN OWAT BUN (Blood Urea Nitrogen), P 18 6 - 21 mg/dL 11/10/2023 11:01 AM MASTER CERTIFIED RV TECHNICIAN OWAT Creatinine 0.94 0.59 - 1.04 mg/dL 11/10/2023 11:01 AM MASTER CERTIFIED RV TECHNICIAN OWAT Estimated GFR (eGFR) 63 >=60 mL/min/BSA 11/10/2023 11:01 AM MASTER CERTIFIED RV TECHNICIAN OWAT Comment: Estimated GFR calculated using the 2020 CKD_EPI creatinine equation. Calcium, Total, P 9.8 8.8 - 10.2 mg/dL 11/10/2023 11:01 AM MASTER CERTIFIED RV TECHNICIAN OWAT Glucose, P 124 70 - 140 mg/dL 11/10/2023 11:01 AM MASTER CERTIFIED RV TECHNICIAN OWAT Albumin, P 4.1 3.5 - 5.0 g/dL 11/10/2023 11:01 AM MASTER CERTIFIED RV TECHNICIAN OWAT Phosphorus (Inorganic), P 2.7 2.5 - 4.5 mg/dL 11/10/2023 10:28 PM MASTER CERTIFIED RV TECHNICIAN AUST Blood (Blood, Venous) 11/10/2023 9:51 AM MASTER CERTIFIED RV TECHNICIAN 11/10/2023 10:36 AM MASTER CERTIFIED RV TECHNICIAN Narrative [facility] - 11/10/2023 10:28 PM MASTER CERTIFIED RV TECHNICIAN Specimen Information: Specimen ID: [id number] Specimen Type: Blood Specimen Collection Start Date: 11/10/2023 ??9:51 AM Specimen Received Date: 11/10/2023 10:36 AM Specimen ID: [id number] Specimen Type: Blood Specimen Collection Start Date: 11/10/2023 ??9:51 AM Specimen Received Date: 11/10/2023 10:11 PM Fede Palacios M.D. LAB BLOOD ADD-ON [facility] [address] [place] [address], [facility] OWAT [facility] [place] [address] [place] [address] AUST [facility] [address] [place] [address] * 6 MINUTE WALK (11/03/2023 10:00 AM MASTER CERTIFIED RV TECHNICIAN) Only the most recent of2 resultswithin the time period is included. Narrative Mary Vincent P.A.-C., M.S. - 11/03/2023 10:00 AM MASTER CERTIFIED RV TECHNICIAN Mary Vincent P.A.-C., M.S. ? 11/03/2023 10:54 [...] Very, Very Severe Time of Test: ??09:10 MASTER CERTIFIED RV TECHNICIAN Total Distance Walked (Feet): ??775 Total Distance Walked (Meters): ??236.22 Total # of Times Stopped: ??2 Time Stopped (Seconds): ??40 Time Walked (Seconds): ??320 CALCULATIONS Estimated MPH: ??1.7 Estimated METs: ??2.3 % of Predicted Distance: ??73.69 Ap Buckley M.D., Ph.D. CV STRESS TX OCEDURES * (TTE) 2D ECHO DOPPLER COLOR (11/01/2023 2:55 PM MASTER CERTIFIED RV TECHNICIAN) Ejection Fraction 60 MC CV EIMS Mid-Ascending [...] Region Laterality Modality Echocardiography 11/01/2023 2:15 PM MASTER CERTIFIED RV TECHNICIAN Impressions 11/01/2023 3:56 PM MASTER CERTIFIED RV TECHNICIAN Anemia, thyrotoxicosis, or another high output state [...] the Order-Level Documents. Narrative 11/01/2023 3:56 PM MASTER CERTIFIED RV TECHNICIAN For the complete report, see the Order-Level [...] and Total Iron-Binding Capacity (11/01/2023 1:25 PM MASTER CERTIFIED RV TECHNICIAN) Only the most recent of2 resultswithin the time period is included. Iron 24(L) 35 - 145 mcg/dL 11/03/2023 11:37 AM MASTER CERTIFIED RV TECHNICIAN DTL Total Iron Binding Capacity 404(H) 250 - 400 mcg/dL 11/03/2023 11:37 AM MASTER CERTIFIED RV TECHNICIAN DTL Percent Saturation 6(L) 14 - 50 % 11/03/2023 11:37 AM MASTER CERTIFIED RV TECHNICIAN DTL Blood (Blood, Venous) 11/01/2023 1:25 PM MASTER CERTIFIED RV TECHNICIAN 11/03/2023 10:45 AM MASTER CERTIFIED RV TECHNICIAN Fede Palacios M.D. LAB BLOOD ADD-ON [facility] [address] [place] [address], [facility] DTHca [facility] [address] [place] [address] * Magnesium (11/01/2023 1:25 PM MASTER CERTIFIED RV TECHNICIAN) Only the most recent of12 resultswithin the time period is included. Magnesium, S 2.0 1.7 - 2.3 mg/dL 11/01/2023 3:49 PM MASTER CERTIFIED RV TECHNICIAN DTL Blood (Blood, Venous) 11/01/2023 1:25 PM MASTER CERTIFIED RV TECHNICIAN 11/01/2023 2:03 PM MASTER CERTIFIED RV TECHNICIAN Cece Thornton P.A.-C., M.S. LAB BLOOD ADD-ON Performing Organization Address City/[facility]/ZIP Co de Phone Number [facility] [place] [address] [place] [address] * (ABNORMAL) Ferritin (11/01/2023 1:25 PM MASTER CERTIFIED RV TECHNICIAN) Only the most recent of7 resultswithin the time period is included. Ferritin, S 10(L) 11 - 328 mcg/L 11/03/2023 11:37 AM MASTER CERTIFIED RV TECHNICIAN DTL Blood 11/01/2023 1:25 PM MASTER CERTIFIED RV TECHNICIAN 11/03/2023 10:45 AM MASTER CERTIFIED RV TECHNICIAN Fede Palacios M.D. LAB BLOOD ADD-ON Performing Organization Address City/[facility] Co de Phone Number [facility] [place] [address] [place] [address], [place] [address] * (ABNORMAL) Comprehensive Metabolic Panel (11/01/2023 1:25 PM MASTER CERTIFIED RV TECHNICIAN) Only the most recent of3 resultswithin the time period is included. Potassium, S 4.5 3.6 - 5.2 mmol/L 11/01/2023 3:49 PM MASTER CERTIFIED RV TECHNICIAN DTL Sodium, S 144 135 - 145 mmol/L 11/01/2023 3:49 PM MASTER CERTIFIED RV TECHNICIAN DTL Chloride, S 108(H) 98 - 107 mmol/L 11/01/2023 3:49 PM MASTER CERTIFIED RV TECHNICIAN DTL Bicarbonate, S 25 22 - 29 mmol/L 11/01/2023 3:49 PM MASTER CERTIFIED RV TECHNICIAN DTL Anion Gap 11 7 - 15 11/01/2023 3:49 PM MASTER CERTIFIED RV TECHNICIAN DTL BUN (Blood Urea Nitrogen), S 17 6 - 21 mg/dL 11/01/2023 3:49 PM MASTER CERTIFIED RV TECHNICIAN DTL Creatinine 0.96 0.59 - 1.04 mg/dL 11/01/2023 3:49 PM MASTER CERTIFIED RV TECHNICIAN DTL Estimated GFR (eGFR) 61 >=60 mL/min/BS A 11/01/2023 3:49 PM MASTER CERTIFIED RV TECHNICIAN DTL Comment: Estimated GFR calculated using the 2020 CKD_EPI creatinine equation. Calcium, Total, S 9.6 8.8 - 10.2 mg/dL 11/01/2023 3:49 PM MASTER CERTIFIED RV TECHNICIAN DTL Glucose, S 89 70 - 140 mg/dL 11/01/2023 3:49 PM MASTER CERTIFIED RV TECHNICIAN DTL Protein, Total, S 6.8 6.3 - 7.9 g/dL 11/01/2023 3:49 PM MASTER CERTIFIED RV TECHNICIAN DTL Albumin, S 4.3 3.5 - 5.0 g/dL 11/01/2023 3:49 PM MASTER CERTIFIED RV TECHNICIAN DTL Aspartate Aminotransferase (AST), S 15 8 - 43 U/L 11/01/2023 3:49 PM MASTER CERTIFIED RV TECHNICIAN DTL Alkaline Phosphatase, S 83 35 - 104 U/L 11/01/2023 3:49 PM MASTER CERTIFIED RV TECHNICIAN DTL Alanine Aminotransferase (ALT), S 14 7 - 45 U/L 11/01/2023 3:49 PM MASTER CERTIFIED RV TECHNICIAN DTL Bilirubin, Total, S 0.3 0.0 - 1.2 mg/dL 11/01/2023 3:49 PM MASTER CERTIFIED RV TECHNICIAN DTL Blood (Blood, Venous) 11/01/2023 1:25 PM MASTER CERTIFIED RV TECHNICIAN 11/01/2023 2:03 PM MASTER CERTIFIED RV TECHNICIAN Ap Buckley M.D., Ph.D. LAB BLOOD AD D-ON [facility] [place] 200 [place] [address], [facility] DTL [facility] 200 [place] [address] * BI Breast Screening Bilateral with Tomosynthesis [...] 1: Negative. Emilia OCHOA BI PROCEDURES * (ABNORMAL) Basic Metabolic Panel [...] Cece Thornton P.A.-C., M.S. LAB BLOOD ADD-ON [facility] [place] [address] [place] [address], [facility] [place][note 3] [address] [place] [address] * BMD Bone Density Spine Hips (03/18/2023 [...] Bone Mineral Density (BMD) analysis performed on Helidyne with serial number [id number]. ? FINDINGS: Left Hip: Femur Neck: BMD [...] including images and graphs, is available in Vioozer. In the absence of other causes of [...] Bone Mineral Density (BMD) analysis performed on Helidynewith serial number [id number]. FINDINGS: Left Hip: Femur Neck: BMD = [...] LIMITED DOPPLER AND CONTRAST (11/12/2022 3:12 PM MASTER CERTIFIED RV TECHNICIAN) Pathologist [facility] Ejection Fraction 64 MC CV EIMS Mid-Ascending [...] Region Laterality Modality Echocardiography 11/12/2022 1:38 PM MASTER CERTIFIED RV TECHNICIAN Impressions 11/12/2022 4:22 PM MASTER CERTIFIED RV TECHNICIAN consistent with elevated left ventricular filling pressure [...] patient exercised for 6:41 min:sec on the Esthela protocol. The patient achieved a workload of 3.3 METS and 49% FAC. The test was terminated due to fatigue and dyspnea. A peak heart rate of 105 BPM was achieved (72% age- predicted maximal HR). Blood pressure at rest 122 mmHg/68 mmHg. Blood pressure with exercise 166 mmHg/64 mmHg. Normal blood pressure response [place]. [place] [id number]. Limited heart rate and double product response [...] per Echocardiography Contrast Administration Protocol Reference Document [id number]. Patient met an inclusion criterion and did not have contraindications in screening sections. For the complete report, see the Order-Level Documents. Narrative 11/12/2022 4:22 PM MASTER CERTIFIED RV TECHNICIAN For the complete report, see the Order-Level [...] patient exercised for 6:41 min:sec on the B[place]a. The patient achieved a workload of 3.3 METS and 49% FAC. Thetest was terminated due to fatigue and dyspnea. A peak heart rate of 105BPM was achieved (72% age-predicted maximal HR). Blood pressure at swid721 mmHg/68 mmHg. Blood pressure with exercise 166 mmHg/64 mmHg. Normalblood pressure response to exercise. Peak double product obtained [id number]. Limited heart rate and double product response [...] ratio). Calculated 2-D linear left ventricular ejection [id number] No regional wall motion abnormalities. Grade 2/3 [...] agentadministered per Echocardiography Contrast Administration ProtocolReference Document [id number]. Patient met an inclusion criterion and didnot have contraindications in screening sections. For the complete report, see the Order-Level Documents. Ap Buckley M.D., Ph.D. CV ECHO PROC EDURES * CBC without Differential (11/12/2022 9:07 AM MASTER CERTIFIED RV TECHNICIAN) Only the most recent of9 resultswithin the time period is included. Hemoglobin 12.0 11.6 - 15.0 g/dL 11/12/2022 9:42 AM MASTER CERTIFIED RV TECHNICIAN DTL Hematocrit 38.6 35.5 - 44.9 % 11/12/2022 9:42 AM MASTER CERTIFIED RV TECHNICIAN DTL Erythrocytes 4.51 3.92 - 5.13 x10(12)/L 11/12/2022 9:42 AM MASTER CERTIFIED RV TECHNICIAN DTL MCV 85.6 78.2 - 97.9 fL 11/12/2022 9:42 AM MASTER CERTIFIED RV TECHNICIAN DTL RBC Distrib Width 15.9 12.2 - 16.1 % 11/12/2022 9:42 AM MASTER CERTIFIED RV TECHNICIAN DTL Platelet Count 228 157 - 371 x10(9)/L 11/12/2022 9:42 AM MASTER CERTIFIED RV TECHNICIAN DTL Leukocytes 5.5 3.4 - 9.6 x10(9)/L 11/12/2022 9:42 AM MASTER CERTIFIED RV TECHNICIAN DTL Blood (Blood, Venous) 11/12/2022 9:07 AM MASTER CERTIFIED RV TECHNICIAN 11/12/2022 9:31 AM MASTER CERTIFIED RV TECHNICIAN Ap Buckley M.D., Ph.D. LAB BLOOD AD D-ON [facility] [place] [address] [place] [address], [facility]waukee [facility] [place][note 3] [address] [place] [address] * CT Head without IV Contrast (08/09/2022 [...] with preliminary vRad report. Silvino Rowe M.D. IMG CT PROCEDURES * Troponin T, 2H/6H, 5th [...] 1:11 AM CDT Narrative [facility] [place] - 06/06/2022 1:31 AM CDT Specimen Information: Specimen ID: [id number] Specimen Type: Blood Specimen Collection Start Date: 06/06/2022 ??1:05 AM Specimen Received Date: 06/06/2022 ??1:11 AM Specimen ID: [id number] Specimen Type: Blood Specimen Collection Start Date: 06/06/2022 ??1:31 AM Specimen Received Date: 06/06/2022 ??1:31 AM Nadja Reed M.D. LAB BLOOD TROP ONIN [facility] [place] [address] [place] [address], [facility] [address] [place] [address] * Troponin T, Baseline, 5th gen (06/05/2022 7:49 PM CDT) Only the most recent of2 resultswithin the time period is included. Troponin T, Baseline, 5th gen 9 <=10 ng/L 06/05/2022 8:12 PM CDT STMA Blood (Blood, Venous) 06/05/2022 7:49 PM CDT 06/05/2022 7:55 PM CDT Nadja Reed M.D. LAB BLOOD TROP ONIN Performing Organization Address [facility] Co de Phone Number [facility] [place] [address] [place] [address], [facility] STMA [facility] [address] [place] [address] * Hepatic Function Panel (06/05/2022 7:49 PM [...] Nadja Reed M.D. LAB BLOOD ADD- ON Performing Organization Address City/[facility]/ZIP Co de Phone Number [facility] [place] [address] [place] [address], [facility] DTL [facility] [address] [place] [address] * Lipase (06/05/2022 7:49 PM CDT) Only the most recent of3 resultswithin the time period is included. Lipase, S 32 13 - 60 U/L 06/05/2022 8: 39 PM CDT DTL Blood (Blood, Venous) 06/05/2022 7:49 PM CDT 06/05/2022 8:15 PM CDT Nadja Reed M.D. LAB BLOOD ADD- ON [facility] [place] [address] [place] [address], [facility] DTL [facility] [address] [place] [address] * Surgical Pathology (06/05/2022 11:15 AM CDT) [...] SURG PATH ORDER DAVID Performing Organization Address [facility] Co de Phone Number [facility] [place] [address] [place] [address], [facility] DTL [facility] [address] [place] [address] * Colonoscopy-Gastroenterology Image Exam (06/05/2022 11:00 AM [...] RAD IMAGI NG PROCEDURES Performing Organization Address [facility] Co de Phone Number IIMS NA * Colonoscopy (06/05/2022 10:57 AM CDT) 06/05/2022 10:5 7 AM CDT Impressions [facility] 06/05/2022 11:39 AM CDT Post-op Diagnoses: ? - Four 2 to 3 mm polyps in the rectum, in the transverse colon and in ? the ascending colon, removed with a cold snare. Resected and retrieved. ? - One diminutive polyp in the ascending colon, removed with a cold ? biopsy forceps. Resected and retrieved. Narrative [facility] - 06/05/2022 11:39 AM CDT Gonda 9 [...] bowel preparation was evaluated using the BBPS ([place] Bowel Preparation ? Scale) with scores of: [...] GI PROCEDURE ORDER DAVID Performing Organization Address [facility] Phone Number [facility] NA * INR, POCT (06/05/2022 10:28 AM [...] POCT ORDERABLES - DEVICE Performing Organization Address [facility] Co de Phone Number [facility] [address] [facility] POC [address] [place] [address] * Upper GI Endoscopy (04/02/2022 11:03 AM CDT) 04/02/2022 11:0 3 AM CDT Impressions [facility] - 04/02/2022 11:42 AM CDT Post-op Diagnoses: ? - Normal examined duodenum. ? - 5 cm hiatal hernia. ? - Erosive gastropathy with no bleeding and no stigmata of recent ? bleeding. ? - Esophagogastric landmarks identified. ? - LA Grade A esophagitis. ? - No specimens collected. Narrative [facility] - 04/02/2022 11:42 AM CDT Gonda 9 GI GI Patient [...] Telly Gaines M.D. GI PROCEDURE ORDER DAVID [facility] NA * SARS Coronavirus-2 RNA, V Asymptomatic (03/31/2022 [...] was performed using the Aptima SARS-CoV-2 assay ([employer] on the Stopango System under emergency use authorization (EUA) by the U.S. Food and Drug Administration. Fact sheets for this EUA assay can be found at the following links: For Healthcare Providers: https://www.fda.gov/media/423317/download For Patients: https://www.fda.gov/media/512178/download Varies (Nasopharynx) 03/31/2022 9:53 AM CDT 03/31/2022 4:11 PM CDT Sameer Bowman D.O. LAB MICROBIOLOGY - GENERAL ORDERABLES Performing Organization Address City/[facility]/ZIP Co de Phone Number [facility] [address] [place] [address], [facility] [place] [address] [place] [address] * Streptococcus Group A, Molecular Detection, PCR, Throat (03/29/2022 10:18 AM CDT) Group A Streptococcus PCR, Throat Negative Negative 03/29/2022 11:01 AM CDT [facility] Varies (Throat) 03/29/2022 1 0:18 AM CDT 03/29/2022 10:34 AM CDT Dora Martinez APRN, C.N.P., D.N.P., M.S. N. LAB MICROBIOLOGY - GENERAL ORDERABLES Performing Organization Address City/[facility]/ZIP Co de Phone Number [facility] [address] [place] [address], [facility] OWAT [facility] [place] [address] [place] [address] * SARS-CoV-2, Flu A/B, RNA, Varies (03/22/2022 [...] Source Swab, Nasopharynx 03/23/2022 1:53 AM CDT MKTO Comment: ----ADDITIONAL INFORMATION---- This molecular amplification test was performed using the Aptima SARS-CoV-2/Flu assay ([employer] on the Stopango System under emergency use authorization (EUA) by the U.S. Food and Drug Administration. Fact sheets for this EUA assay can be found at the following links: For Healthcare Providers: https://www.fda.gov/media/682028/download For Patients: https://www.fda.gov/media/157687/download Varies (Nasopharynx) 03/22/2022 11:33 AM CDT 03/22/2022 5:21 PM CDT Adarsh Ramirez M.D., M.B.A. LAB MICROBI OLOGY - GENERAL ORDERABLES [facility] [address] [place] [address], [facility] [place] [address] * DX Knee Right Standing Right 3 [...] System IMG NON RAD IMAGI NG PROCEDURES IIMS NA * BI Breast Diagnostic Right with [...] ASSESSMENT: BI-RADS: 2: Benign. Telly Gaines M.D. IMJanet BI PROCEDURES * TX ARTHCS ASP/INJ MJR JT WO US (12/05/2020 8:30 AM MASTER CERTIFIED RV TECHNICIAN) Narrative MMODAL - 12/05/2020 8:30 AM MASTER CERTIFIED RV TECHNICIAN Storm Iqbal P.A.-C. ? 12/05/2020 11:47 AM [...] area as needed for comfort Storm Iqbal P.A.-C., M.S. PROCEDURE/MINA R SURGICAL ORDERABLES Performing Organization Address City/[facility] Co de Phone Number [facility] NA * (ABNORMAL) Acid-Base Balance (11/27/2020 9:26 AM MASTER CERTIFIED RV TECHNICIAN) pH Venous 7.31(L) 7.32 - 7.43 pH 11/27/2020 9:58 AM MASTER CERTIFIED RV TECHNICIAN METH pCO2 Venous 56(H) 41 - 51 mm Hg 11/27/2020 9:58 AM MASTER CERTIFIED RV TECHNICIAN METH Standard Bicarbonate 25 21 - 25 mmol/L 11/27/2020 9:58 AM MASTER CERTIFIED RV TECHNICIAN METH Sample Site, Venous Venous Stick 11/27/2020 9:58 AM MASTER CERTIFIED RV TECHNICIAN METH Blood (Blood, Venous) 11/27/2020 9:26 AM MASTER CERTIFIED RV TECHNICIAN 11/27/2020 9:53 AM MASTER CERTIFIED RV TECHNICIAN Eli Patterson, B.Ch. LAB BLOOD NON ADD-ON [facility] [address] [place] [address], [facility] METH [facility] [address] [place] [address] * Pulmonary Function Tests (11/26/2020 1:11 PM MASTER CERTIFIED RV TECHNICIAN) Pathologist [facility] VC MAX POST 2.41 L 11/26/2020 3:26 PM MASTER CERTIFIED RV TECHNICIAN HICKORY SENTRY SUITE PostFVC 2.41 L 11/26/2020 3:26 PM MASTER CERTIFIED RV TECHNICIAN HICKORY SENTRY SUITE PostFEV1 1.89 L 11/26/2020 3:26 PM MASTER CERTIFIED RV TECHNICIAN [facility] SU[facility] FEV1/FVC POST 78.44 % 11/26/2020 3:26 PM MASTER CERTIFIED RV TECHNICIAN [facility] SU[facility] FEF 25-75 % POST 1.68 L/s 11/26/2020 3:26 PM MASTER CERTIFIED RV TECHNICIAN HICKORY SENTRY SUITE PEF POST 6.04 L/s 11/26/2020 3:26 PM MASTER CERTIFIED RV TECHNICIAN HICKORY SENTRY SUITE FET POST 8.61 sec 11/26/2020 3:26 PM MASTER CERTIFIED RV TECHNICIAN [facility] DLCO SINGLE BREATH POST 12.75 ml/(min*mm Hg) 11/26/2020 3:26 PM MASTER CERTIFIED RV TECHNICIAN [facility] SU[facility] VA SINGLE BREATH POST 4.32 L 11/26/2020 3:26 PM MASTER CERTIFIED RV TECHNICIAN [facility] SU[facility] D1SvcBlfa 96.00 % 11/26/2020 3:26 PM MASTER CERTIFIED RV TECHNICIAN [facility] SUITE PulseRest 60.00 1/min 11/26/2020 3:26 PM MASTER CERTIFIED RV TECHNICIAN HICKORY SENTRY SUITE TLC POST 4.44 L 11/26/2020 3:26 PM MASTER CERTIFIED RV TECHNICIAN [facility] SU[facility] VC POST 2.44 L 11/26/2020 3:26 PM MASTER CERTIFIED RV TECHNICIAN [facility] SU[facility] FRCPLETH POST 2.37 L 11/26/2020 3:26 PM MASTER CERTIFIED RV TECHNICIAN [facility] SU[facility] RV 2.01 L 11/26/2020 3:26 PM MASTER CERTIFIED RV TECHNICIAN [facility] SU[facility] RV % TLC POST 45.18 % 11/26/2020 3:26 PM MASTER CERTIFIED RV TECHNICIAN [facility] SU[facility] VC MAX PRE 2.25 L 11/26/2020 3:26 PM MASTER CERTIFIED RV TECHNICIAN [facility] SU[facility] FVC 2.25 L 11/26/2020 3:26 PM MASTER CERTIFIED RV TECHNICIAN [facility] SUITE FEV1 1.79 L 11/26/2020 3:26 PM MASTER CERTIFIED RV TECHNICIAN [facility] SU[facility] FEV1/FVC 79.61 % 11/26/2020 3:26 PM MASTER CERTIFIED RV TECHNICIAN [facility] SUITE VGC99-55% 1.63 L/s 11/26/2020 3:26 PM MASTER CERTIFIED RV TECHNICIAN HICKORY SENTRY SUITE PEF PRE 5.97 L/s 11/26/2020 3:26 PM [facility] F[facility] PRE 6.04 sec 11/26/2020 3:26 PM MASTER CERTIFIED RV TECHNICIAN HICKORY SENTRY SUITE SUBSTANCE POST Albuterol 11/26/2020 3:26 PM MASTER CERTIFIED RV TECHNICIAN HICKORY SENTRY SUITE DOSE POST 2 Puff 11/26/2020 3:26 PM MASTER CERTIFIED RV TECHNICIAN HICKORY SENTRY SUITE % PRED VC MAX 91 % % 11/26/2020 3:26 PM MASTER CERTIFIED RV TECHNICIAN HICKORY SENTRY SUITE FVC% 91 % % 11/26/2020 3:26 PM MASTER CERTIFIED RV TECHNICIAN HICKORY SENTRY SUITE FEV1% 93 % % 11/26/2020 3:26 PM MASTER CERTIFIED RV TECHNICIAN HICKORY SENTRY SUITE % PRED FEV1/FVC 102 % % 11/26/2020 3:26 PM MASTER CERTIFIED RV TECHNICIAN HICKORY SENTRY SUITE % PRED FEF 25-75% 99 % % 11/26/2020 3:26 PM [facility] MARYVALE SENTRY SUITE % PRED PEF 118 % % 11/26/2020 3:26 PM [facility] MARYVALE SENTRY SUITE PRED TLC 4.47 11/26/2020 3:26 PM [facility] MARYVALE SENTRY SUITE PRED RV 1.98 11/26/2020 3:26 PM [facility] MARYVALE SENTRY SUITE PRED VC MAX 2.47 11/26/2020 3:26 PM MASTER CERTIFIED RV TECHNICIAN HICKORY SENTRY SUITE PRED FVC 2.47 11/26/2020 3:26 PM [facility] MARYVALE SENTRY SUITE PRED FEV 1 1.92 11/26/2020 3:26 PM [facility] MARYVALE SENTRY SUITE PRED FEV1/FVC 78.1 11/26/2020 3:26 PM [facility] MARYVALE SENTRY SUITE PRED FEF 25-75% 1.64 11/26/2020 3:26 PM [facility] MARYVALE SENTRY SUITE PRED PEF 5.0 11/26/2020 3:26 PM [facility] MARYVALE SENTRY SUITE PRED DLCO 17.4 11/26/2020 3:26 PM [facility] MARYVALE SENTRY SUITE 11/26/2020 1:11 PM MASTER CERTIFIED RV TECHNICIAN Eli Patterson, B.Ch. PFT ORDER DAVID HICKORY SENTRY SUITE NA * PUL Exhaled Nitric Oxide (11/26/2020 12:59 PM [facility]) Exhaled NO Oral 12 MMODAL Parts per billion (ULN) 39 MMODAL Robert Carroll.Ch. PFT ORDER DAVID MMODAL NA * FL Esophagram Double Contrast (10/15/2020 2:41 PM MASTER CERTIFIED RV TECHNICIAN) Anatomical Region Laterality Modality Gastro Intestinal, Abdominal RST LOS, Abdominal ARZ LOS, Abdominal FLA LOS Digital Radiography 10/15/2020 3:01 PM MASTER CERTIFIED RV TECHNICIAN Impressions 10/15/2020 3:50 PM MASTER CERTIFIED RV TECHNICIAN New paraesophageal hiatal hernia contains the gastric fundus. Narrative 10/15/2020 3:50 PM MASTER CERTIFIED RV TECHNICIAN EXAM: ??FL ESOPHAGRAM DOUBLE CONTRAST COMPARISON: ??Esophagram [...] Chest without IV Contrast (10/11/2020 12:15 PM MASTER CERTIFIED RV TECHNICIAN) Only the most recent of3 resultswithin the time period is included. Anatomical Region Laterality Modality Chest, Thoracic RST LOS, Tho racic ARZ LOS, Thoracic FLA LOS N/A Computed Tomography, Compute d Tomography 10/11/2020 1:04 PM MASTER CERTIFIED RV TECHNICIAN Impressions 10/11/2020 1:27 PM MASTER CERTIFIED RV TECHNICIAN 1. Patchy bilateral groundglass opacities are relatively diffuse. Nonspecific, although in the setting of recent COVID-19 infection, may represent resolving or persistent disease. No significant architectural distortion to suggest component of fibrosis or organization. Consider chest CT follow-up in 3 months to evaluate for potential resolution. 2. Small pulmonary nodules appear relatively similar dating back to 2013. Narrative 10/11/2020 1:27 PM MASTER CERTIFIED RV TECHNICIAN EXAM: CT CHEST WITHOUT IV CONTRAST COMPARISON: [...] pulmonary nodules appear relatively similar dating back [id number]. Eli Patterson, B.Ch. IMG CT TX OCEDURES * (ABNORMAL) Haptoglobin (09/09/2020 8:21 AM CDT) Haptoglobin, S 303(H) 30 - 200 mg/dL 09/09/2020 10:35 PM CDT [facility] Blood 09/09/2020 8:21 AM CDT 09/09/2020 2:40 PM CDT Kanchan Varela P.A.-C., M.S. LAB BLOOD A DD-ON [facility] SUPPORT [place] [address] [place] [address] [facility] Dept. of Laboratory Medicine and Pathology [address] [place] [address] * Morphology Evaluation (Special Smear) (09/09/2020 12:22 [...] CDT 09/09/2020 12:57 AM CDT Kanchan Varela P.A.-C. MBabak LAB BLOOD A DD-ON Performing Organization Address [facility] Co de Phone Number [facility] [place] [address] [place] [address], [facility] [address] [place] [address] * D-Dimer (09/09/2020 12:22 AM CDT) Only [...] CDT 09/09/2020 12:57 AM CDT Kanchan Varela P.A.-C. MHarmonySHarmony LAB BLOOD A DD-ON Performing Organization Address [facility] de Phone Number [facility] [place] [address] [place] [address], [facility] [address] [place] [address] * (ABNORMAL) CRP (C-Reactive Protein) (09/09/2020 12:22 AM CDT) Only the most recent of3 resultswithin the time period is included. C-Reactive Protein (CRP), S 54.0(H) <=8.0 mg/L 09/09/2020 1:27 AM CDT DTL Blood (Blood, Venous) 09/09/2020 12:22 AM CDT 09/09/2020 1:13 AM CDT Kanchan Varela P.A.-C. M.S. LAB BLOOD A DD-ON [facility] [place] [address] [place] [address] * (ABNORMAL) LD (Lactate Dehydrogenase) (09/09/2020 12:22 AM CDT) [facility] LD 268(H) 122 - 222 U/L 09/09/2020 1:27 AM CDT DT Blood (Blood, Venous) 09/09/2020 12:22 AM CDT 09/09/2020 1:13 AM CDT Kanchan Varela P.A.-C., M.S. LAB BLOOD N ON ADD-ON Performing Organization Address City/[facility]/ZIP Co de Phone Number [facility] [place] [address] [place] [address] * (ABNORMAL) Soluble Transferrin Receptor (sTfR) (09/09/2020 12:14 AM CDT) [facility] Soluble Transferrin Receptor (sTfR) 5.3(H) 1.8 - 4.6 mg/L 09/09/2020 12:27 PM CDT DT Comment: ----ADDITIONAL INFORMATION---- It is reported that Americans may have slightly higher values. Blood (Blood, Venous) 09/09/2020 12:14 AM CDT 09/09/2020 11:43 AM CDT Kanchan Varela P.A.-C., M.S. LAB BLOOD A DD-ON Performing Organization Address City/[facility]/ZIP Co de Phone Number [facility] [place] [address] [place] [address] * Reticulocytes (09/08/2020 8:02 AM CDT) Reticulocytes, B 0.87 0.60 - 2.71 % 09/08/2020 3:47 PM CDT DTL Absolute Reticulocyte 31.1 30.4 - 110.9 x10(9)/L 09/08/2020 3:47 PM CDT DTL Blood (Blood, Venous) 09/08/2020 8:02 AM CDT 09/08/2020 3:36 PM CDT Kanchan Varela P.A.-C., M.S. LAB BLOOD A DD-ON [facility] [place] [address] [place] [address], [facility]note 3[facility] [address] [place] [address] * SARS-CoV-2 Total Antibody, Serum (09/08/2020 3:31 AM CDT) Pathologist [facility] SARS-CoV-2 Nucleocapsid Total Ab, S Negative Negative 09/08/2020 4:47 AM CDT DTL Comment: No antibodies to SARS-CoV-2 detected. Negative results may occur in serum collected too soon following infection or in immunosuppressed patients. Follow-up testing with a molecular test is recommended in symptomatic patients. This test should not be used to exclude active/recent COVID-19. ----ADDITIONAL INFORMATION---- Testing was performed using the [employer] Vnue-GROP-ReY-2 Reagent assay from [employer], which has received Emergency Use Authorization(EUA) by the U.S. Food and Drug Administration. Fact sheets for this Emergency Use Authorization (EUA) assay can be found at the following links: For Healthcare Providers: https://www.fda.gov/media/172067/download For Patients: https://www.fda.gov/media/638612/download Blood (Blood, Venous) 09/08/2020 3:31 AM CDT 09/08/2020 4:13 AM CDT Lesli Rider M.D., Ph.D. LAB [facility] OBIOLOGY - BLOOD ORDERABLES Performing Organization Address [facility] Co de Phone Number [facility] [place] [address] [place], [place] [id number] [place] [address] 200 [place] [address] * (ABNORMAL) SARS Coronavirus 2, Molecular Detection, PCR (SEAPORT PLANNING MANAGER) Symptomatic (09/08/2020 3:14 AM CDT) COVID-19, PCR Detected( C) Undetected 09/08/2020 11:11 AM CDT DT Comment: SARS-CoV-2 RNA present. ----ADDITIONAL INFORMATION---- This test has received Emergency Use Authorization (EUA) by the U.S. Food and Drug Administration and is used per comp field case manager's instructions. Performance characteristics were verified by [facility] in a manner consistent with CLIA requirements. Visit the CDC website: https://www.cdc.gov/coronavirus/ for the most recent guidelines on Coronavirus testing. Fact Sheet for Healthcare Providers: https://www.fda.gov/media/628192/download Fact Sheet for Patients: https://www.fda.gov/media/453269/download Varies (Nasopharynx) 09/08/2020 3:14 AM CDT 09/08/2020 3:54 AM CDT Lesli Rider M.D., Ph.D. LAB MICR OBIOLOGY - GENERAL ORDERABLES Performing Organization Address City/[facility]/ZIP Co de Phone Number [facility] [place] [address] [place], [place] [id number] [place] [address] 200 [place] [address] * DX Chest Portable 1 View (09/08/2020 [...] ??DX CHEST PORTABLE 1 VIEW Procedure Note Ronny Hammond M.D. - 09/08/2020 EXAM: DX CHEST PORTABLE [...] POCT ORDERABLES - DEVICE Performing Organization Address City/[facility]/ZIP Co de Phone Number [facility] [address] [place] [address], [facility] PCSM [facility] [address] [place] [address] * Venous Blood Gas and Electrolytes, POCT (09/08/2020 1:09 AM CDT) ABG and Lytes, POCT, B Collected DEFAULT 09/08/2020 1:09 AM CDT SMLX Blood (Other, Specify in Comments) 09/08/2020 1:09 AM CDT 09/08/2020 1:09 AM CDT Jeffrey Castillo M.D. LAB POCT ORDERABLES - DEVICE Performing Organization Address City/[facility]/ZIP Co de Phone Number [facility] [place] [address] [place] [address], [facility] SMLX [facility] [address] [place] [address] * Patient Status (08/30/2020 10:24 AM CDT) FIO2 0.21 0.21=AIR 08/30/2020 10:35 AM CDT STMA Spont. breaths/min 16 08/30/2020 10:35 AM CDT STMA Blood 08/30/2020 10:2 4 AM CDT 08/30/2020 10:35 AM CDT Ap Laws M.D. LAB BLOOD NON ADD- ON [facility] [place] [address] [place], [place] [address] [place] [address] * (ABNORMAL) Blood Gas without Coox, Venous [...] Laws M.D. LAB BLOOD NON ADD- ON [facility] [place] [address] [place] [address], [facility] [address] [place] [address] * Bacteria / Rachna Culture, Blood #1 (08/30/2020 10:24 AM CDT) Only the most recent of2 resultswithin the time period is included. Bacteria/Kimberly da Culture, Blood No growth after 5 days of incubation. 09/04/2020 12:02 PM CDT DT Blood (Blood, Peripheral Draw) 08/30/2020 10:24 AM CDT 08/30/2020 11:40 AM CDT Comment:Specimen Source Site : Blood Narrative [facility] [place] - 09/04/2020 12:02 PM CDT Specimen Information: Specimen ID: [id number] Specimen Source: Blood, Peripheral Draw Specimen Comment: Specimen Source Site: Blood Specimen Collection Start Date: 08/30/2020 10:24 AM Specimen Received Date: 08/30/2020 11:40 AM Specimen ID: [id number] Specimen Source: Blood, Peripheral Draw Specimen Comment: Specimen Source Site: Blood Specimen Collection Start Date: 08/30/2020 10:24 AM Specimen Received Date: 08/30/2020 11:40 AM Specimen ID: [id number] Specimen Source: Blood, Peripheral Draw Specimen Comment: Specimen Source Site: Blood Specimen Collection Start Date: 08/30/2020 10:24 AM Specimen Received Date: 08/30/2020 11:40 AM Ap Laws M.D. LAB MICROBIOLOGY - GENERAL ORDERABLES [facility] [place] [address] [place] [address], [facility] [place][note 3] [address] [place] [address] * Lactate, POCT (08/30/2020 10:20 AM CDT) Only the most recent of2 resultswithin the time period is included. Pathologist [facility] Lactate, POCT Collected DEFAULT 08/30/2020 10:20 AM CDT SMLX Blood (Blood, Venous) 08/30/2020 10:20 AM CDT 08/30/2020 10:20 AM CDT Ap Laws M.D. LAB POCT ORDERABLE S - DEVICE [facility] [place] [address] [place] [address], [place] SMLX [facility] [address] [place] [address] * Cologuard (07/04/2020 3:30 PM CDT) Result [...] (Ritesh Whitman al, N Engl J Med 2014;370(14):3313-3755) The normal value (reference range) for this assay is negative. COLOGUARD RE-SCREENING RECOMMENDATION: Periodic routine colorectal cancer screening is an important part of preventive healthcare for asymptomatic persons at average risk for colorectal cancer. Following a negative Cologuard result, the [place] [employer] Society and U.S. Multi-Society Task Force screening guidelines recommend a Cologuard re-screening interval of 3 years. References: [place] [employer] Society (ACS). Colorectal cancer prevention and early detection. [place], [place]: [place] [employer]; [updated 2015Mar 08]. https://www.cancer.org/cancer/onedp-elmjtr-erbuyg/detection- diagnosis-staging/acs-recommendations.html. Accessed July 15, 2018; Hao DK, Ludmila CR, Ashley GuamanK, Colorectal Cancer Screening: Recommendations for Physicians and Patients from the U.S. Multi-Society Task Force on Colorectal Cancer Screening, Am J Gastroenterology 2017; 112:0050-8608. TEST TYPE: Composite algorithmic analysis of stool [...] interval of every 3 years by the [place] [employer] Society and U.S. Multi-Society Task Force. [...] can be accessed at the following location: www.Phyzios.QRuso/results. Additional description of the Cologuard test process, warnings and precautions can be found at www.cologuardtest.com. Rx only. Stool (Stool) 07/04/2020 3:3 0 PM CDT 07/06/2020 6:50 PM CDT Telly Gaines M.D. LAB BODY FLUIDS AN D STOOLS ORDERABLES [employer] [address] [place] [address] [employer] [address] [facility], [address] [place] [address] * (ABNORMAL) Urinalysis with Microscopic if Indicated (11/20/2019 10:58 AM MASTER CERTIFIED RV TECHNICIAN) Source Midstream 11/20/2019 11:06 AM MASTER CERTIFIED RV TECHNICIAN FMKE Clarity Clear Clear 11/20/2019 11:06 AM MASTER CERTIFIED RV TECHNICIAN FMKE Color Yellow 11/20/2019 11:06 AM MASTER CERTIFIED RV TECHNICIAN FMKE Comment: ----REFERENCE VALUE---- Colorless Yellow Rosenda Blood Trace(A) Negative 11/20/2019 11:06 AM MASTER CERTIFIED RV TECHNICIAN FMKE Nitrite Negative Negative 11/20/2019 11:06 AM MASTER CERTIFIED RV TECHNICIAN FMKE Leukocyte Esterase Trace(A) Negative 11/20/2019 11:06 AM MASTER CERTIFIED RV TECHNICIAN FMKE Protein Negative mg/dL 11/20/2019 11:06 AM MASTER CERTIFIED RV TECHNICIAN FMKE Comment: ----REFERENCE VALUE---- Negative Trace Glucose Negative Negative mg/dL 11/20/2019 11:06 AM MASTER CERTIFIED RV TECHNICIAN FMKE Ketones, QI(U) Negative Negative mg/dL 11/20/2019 11:06 AM MASTER CERTIFIED RV TECHNICIAN FMKE Bilirubin Negative Negative 11/20/2019 11:06 AM MASTER CERTIFIED RV TECHNICIAN FMKE pH 7.0 5.0 - 8.0 11/20/2019 11:06 AM MASTER CERTIFIED RV TECHNICIAN FMKE Specific Spivey 1.010 1.001 - 1.035 11/20/2019 11:06 AM MASTER CERTIFIED RV TECHNICIAN FMKE Urobilinogen 0.2 0.2 - 1.0 mg/dL 11/20/2019 11:06 AM MASTER CERTIFIED RV TECHNICIAN FMKE Urine (Urine, Clean Catch) 11/20/2019 10:58 AM MASTER CERTIFIED RV TECHNICIAN 11/20/2019 11:03 AM MASTER CERTIFIED RV TECHNICIAN Jeffrey Garay P.A.-C. LAB URINE ORDE [facility] [address] [place] [address], [facility] FMKE [facility] [place] [address] [place] [address] * Microscopic Manual (11/20/2019 10:58 AM MASTER CERTIFIED RV TECHNICIAN) White Blood Cells Occ-3 /hpf 11/20/2019 2:35 PM MASTER CERTIFIED RV TECHNICIAN [id number] Comment: ----REFERENCE VALUE---- Males: 0-3 Females: 0-10 Unknown: 0-10 Red Blood Cells None Seen 0 - 2 /hpf 11/20/2019 2:35 PM MASTER CERTIFIED RV TECHNICIAN FB60 Squamous Cells Occ-3 /hpf 11/20/2019 2:35 PM MASTER CERTIFIED RV TECHNICIAN FB60 Urine 11/20/2019 10:5 8 AM MASTER CERTIFIED RV TECHNICIAN 11/20/2019 2:32 PM MASTER CERTIFIED RV TECHNICIAN Jeffrey Garay P.A.-C. LAB URINE ORDE RABLES [facility] [address] [place] [address], [facility] FB60 [facility] [place] [address] [place] [address] * (ABNORMAL) Bacterial Culture, Aerobic + Susc, Urine (11/20/2019 10:58 AM MASTER CERTIFIED RV TECHNICIAN) [facility] Urine Culture Mixed osmel.(A) 11/21/2019 5:07 PM MASTER CERTIFIED RV TECHNICIAN [facility] Urine (Urine, Midstream) 11/20/2019 10:58 AM MASTER CERTIFIED RV TECHNICIAN 11/20/2019 7:22 PM MASTER CERTIFIED RV TECHNICIAN Comment:Specimen Source Site : Urine Jeffrey Garay P.A.-C. LAB MICROBIOLO GY - GENERAL ORDERABLES Performing Organization Address [facility]/ZIP Co de Phone Number [facility] [address] [place] [address], [facility] MKTO [facility] [place] [address] [place] [address] * Type and Screen (with reflex Antibody ID) (07/03/2019 10:19 AM CDT) [facility] ABORh A Pos Not applicable 07/03/2019 11:36 AM CDT Antibody Screen Negative Negative 07/03/2019 11:47 AM CDT Type & Screen Expiration [id number] 07/03/2019 11:36 AM CDT Testing Location He DEFAULT 07/03/2019 10:40 AM CDT Blood (Blood, Venous) 07/03/2019 10:19 AM CDT 07/03/2019 10:40 AM CDT Storm Iqbal P.A.-C., M.S. LAB BLOOD BANK TEST ORDERABLES [facility] [place] [address] [place] [address], [facility] * Staphylococcus aureus Detection by Rapid PCR (07/03/2019 10:16 AM CDT) Staphylococcus aureus PCR Specimen Source Swab, Rodney 07/04/2019 11:43 AM CDT Result Negative Not Applicable 07/04/2019 11:43 AM CDT Comment: ----ADDITIONAL INFORMATION---- This test was developed and its performance characteristics determined by [facility] in a manner consistent with CLIA requirements. This test has not been cleared or approved by the U.S. Food and Drug Administration. Varies (Nares) 07/03/2019 10 :16 AM CDT 07/03/2019 11:14 AM CDT Storm Iqbal P.A.-C., M.S. LAB MICROBIOLO GY - GENERAL ORDERABLES [facility] [place] [address] [place], [place] [address] * BI Ultrasound Breast Focused Bilateral (05/16/2019 [...] clinical provider. ASSESSMENT: BI-RADS: 1: Negative. Oxana Boone APRN, C.N.P., M.S. IMG BI PROCEDURES * BI [...] her clinical provider. ASSESSMENT: BI-RADS: 1: Negative. Mari Matthews APRN.N.Eduardo., M.S. IMG BI PROCEDURES * (TTE) 2D [...] Normal left ventricular chamber size; calculated ejection neoctuxv01%. 2. No regional wall motion abnormalities. 3. [...] CDT) 03/28/2019 12:2 8 PM CDT Narrative CV MERGE - 03/28/2019 3:27 PM CDT See PDF For Result Ap Buckley M.D., Ph.D. IMG NM KATHLEEN LESLY MC CV MERGE NA * TX ARTHCS ASP/INJ MJR JT W US (12/21/2018 11:30 AM MASTER CERTIFIED RV TECHNICIAN) Narrative MMODAL - 12/21/2018 11:30 AM MASTER CERTIFIED RV TECHNICIAN Ian Bocanegra M.D. ? 12/21/2018 11:47 AM [...] this note. Images have been archived in QREADS: click the 'Dept Filter' button in [employer], then the 'Clear (Show All)' button, then [...] PROCEDURE/MINOR SAURAV GICAL ORDERABLES Performing Organization Address [facility] Co de Phone Number MMODAL NA * Guided Procedure-Internal Medicine Image Exam (12/21/2018 11:10 AM MASTER CERTIFIED RV TECHNICIAN) Narrative IIMS - 01/25/2019 12:10 PM CDT This order has been created and auto-finalized to support the import of images acquired without order. The clinical documentation to support these images can be found on the encounter that produced images. Provider Not In System IMG NON RAD IMAGI NG PROCEDURES Performing Organization Address [facility] Co de Phone Number IIMS NA * DX Knee Right with Flexion and Patella 4 Views (12/02/2018 11:53 AM MASTER CERTIFIED RV TECHNICIAN) Anatomical Region Laterality Modality Lower Extremity, Knee, Muscu loskeletal RST LOS, Musculoskeletal ARZ LOS, Muskuloskeletal FLA LOS Right Compu kash Radiography 12/02/2018 11:5 7 AM MASTER CERTIFIED RV TECHNICIAN Impressions 12/02/2018 11:58 AM MASTER CERTIFIED RV TECHNICIAN IMPRESSION: ??Advanced degenerative arthritis right knee with tricompartmental narrowing. Lateral subluxation of the proximal tibia with respect to the distal femur. Left TKA. No significant change since 06/27/18. Narrative 12/02/2018 11:58 AM MASTER CERTIFIED RV TECHNICIAN EXAM: ??DX KNEE RIGHT WITH FLEXION AND PATELLA 4 VIEWS Procedure Note Josey Lewis M.D. - 12/02/2018 EXAM: DX KNEE RIGHT WITH FLEXION AND PATELLA 4 VIEWS IMPRESSION: Advanced degenerative arthritis right knee withtricompartmental narrowing. Lateral subluxation of the proximal tibia with respect to thedistal femur. Left TKA. No significant change since 06/27/18. Telly Gaines M.D. [facility] DIAGNOSTIC JAMEE GING PROCEDURES * DX Shoulder Right 2+ Views (12/02/2018 11:53 AM MASTER CERTIFIED RV TECHNICIAN) Anatomical Region Laterality Modality Upper Extremity, Shoulder, M usculoskeletal RST LOS, Musculoskeletal ARZ LOS, Muskuloskeletal FLA LOS Right Compu kash Radiography 12/02/2018 11:5 8 AM MASTER CERTIFIED RV TECHNICIAN Impressions 12/02/2018 11:59 AM MASTER CERTIFIED RV TECHNICIAN IMPRESSION: ??Mild glenohumeral and moderate acromioclavicular degenerative arthritis. Old fracture deformity of the distal clavicle. Subacromial spurring, which can be seen with rotator cuff degeneration. Narrative 12/02/2018 11:59 AM MASTER CERTIFIED RV TECHNICIAN EXAM: ??DX SHOULDER RIGHT 2+ VIEWS Procedure Note Josey Lewis M.D. - 12/02/2018 EXAM: DX SHOULDER RIGHT 2+ VIEWS IMPRESSION: Mild glenohumeral and moderate acromioclaviculardegenerative arthritis. Old fracture deformity of the distal clavicle. Subacromialspurring, which can be seen with rotator cuff degeneration. Telly Gaines M.D. IM DIAGNOSTIC JAMEE GING PROCEDURES * Home sleep [...] successful Airway event: no complications Ap Redman PIPE ROLLER, SURGICAL SERVICES DIRECTOR, MNA, R.N. ANES THESIA ORDERABLES * CARDIOVERSION EXTERNAL (07/13/2018 4:08 PM CDT) 07/13/2018 3:26 PM CDT Narrative [facility] [place] - 07/13/2018 5:16 PM CDT See PDF For Result Radha Lomeli APRN, C.N.P., M.S. CV C ARDIAC SERVICES PROCEDURES [facility] [place] [address] * (THU) 2D WITH COLOR AND LIMITED DOPPLER (07/13/2018 4:08 PM CDT) Ejection Fraction 65 CV EIAK Anatomical Region Laterality Modality X-Ray Angiograph y 07/13/2018 3:26 PM CDT Narrative 07/13/2018 5:14 PM CDT See PDF For Result Procedure Note Brown Thao M.D. - 07/13/2018 See PDF For Result Ward Godwin APRNNRosa, M.S. CV E CHO PROCEDURES * TX ARTHCS ASP/INJ MJR JT WO US (06/27/2018 11:00 AM CDT) Narrative [facility] - 06/27/2018 11:00 AM CDT Evan Armendariz P.A.-C. ? 06/27/2018 11:27 AM Zbs-hwak-nivxbren-elbow arthrocentesis Date/Time: 06/27/2018 11:18 AM Performed by: EVAN ARMENDARIZ Authorized by: EVAN ARMENDARIZ Machine Stacker utilized: bilingual interpreter not needed ?? Risks discussed with: patient [...] C-Reactive Protein, High Sensitivity (12/23/2017 9:33 AM MASTER CERTIFIED RV TECHNICIAN) Pathologist [facility] C-Reactive Protein, High Sens, S 3.6(H) <2.0 mg/L 12/24/2017 10:27 AM MASTER CERTIFIED RV TECHNICIAN [facility] [place] Comment: Higher risk In adults, increased CRP is associated with an increased risk for ischemic cardiovascular events. CRP is an acute phase reactant; consider repeat analysis of CRP in 2-4 weeks to establish baseline value. Blood (Blood, Venous) 12/23/2017 9:33 AM MASTER CERTIFIED RV TECHNICIAN 12/24/2017 7:59 AM MASTER CERTIFIED RV TECHNICIAN Jeffrey Garay P.A.-C. LAB BLOOD ADD- ON [facility] [place] [address] [place] [address], [facility] * i-[facility] PGx (03/12/2017 4:07 PM CDT) Pathologist [facility] F2 genotype [id number] GG [facility] [place] Comment: Normal risk of thrombosis associated with Factor II (prothrombin). Other genetic and clinical factors contribute to the risk for thrombosis. Test Performed by: [facility] [address] [place] [address] [place] [address] F2 phenotype Normal risk [facility] [place] Comment: Test Performed by: [facility] [address] [place] [address] [address] [place] [address] F5 genotype [id number] GG [facility] Comment: Normal risk of thrombosis associated with Factor V. Other genetic and clinical factors contribute to the risk for thrombosis. Test Performed by: [facility] [address] [place] [address] F5 phenotype Normal risk [facility] [place] Comment: Test Performed by: [facility] [address] [place] [address] [address] [place] [id number] COMT genotype [id number] AA [facility] Comment: COMT activity is predicted to be lower than in patients with the GG or GA genotypes at pt1462. Test Performed by: [facility] [address] [place], [place] [id number] COMT phenotype Low [facility] [place] Comment: Test Performed by: [facility] [address] [place], [place] [id number] DPYD genotype *1/*1 [facility] Comment: Normal metabolizer. Normal dihydropyrimidine dehydrogenase activity. Normal risk of toxicities with fluoropyrimidines (5-fluorouracil, capecitabine and tegafur). Test Performed by: [facility] [address] [place], [place] [id number] DPYD phenotype Normal DPD activity [facility] [place] Comment: Test Performed by: [facility] [address] [place] [address] DRD2 genotype [id number] AA [facility] Comment: Genotype is associated with a greater likelihood of improvement in schizophrenia symptoms with risperidone compared to the GG genotype. Other clinical and/or genetic factors may influence the response. Test Performed by: [facility] [address] [place] [address] [address] [place] [address] DRD2 phenotype Normal response [facility] [place] Comment: Test Performed by: [facility] [address] [place] [address] [address] [place] [address] TPMT genotype *1/*1 [facility] Comment: Normal TPMT metabolizer. Normal risk of myelotoxicity associated with thiopurines (azathioprine, mercaptopurine and thioguanine). Toxicities with thiopurines can also occur due to impaired NUDT15 activity independently from the TPMT status. Test Performed by: [employer] [facility] [address] [place] [address] TPMT phenotype Normal Risk [facility] Comment: Test Performed by: [facility] [address] [place] [address] [address] [place] [address] GRIK4 genotype [id number] TT [facility] Comment: Genotype predicts a 10% increase in the risk of not responding to citalopram in patients with major depressive disorder related to the GRIK4 genotype alone. Other clinical and/or genetic factors may influence the response. Test Performed by: [facility] [address] [place] [address] GRIK4 phenotype Risk of decreased response [facility] [place] Comment: Test Performed by: [facility] [address] [place] [address] HTR2A genotype [id number] AG [facility] Comment: Genotype predicts a normal likelihood of response to citalopram. Other clinical and/or genetic factors may influence response. Test Performed by: [facility] [address] [place] [address] HTR2A phenotype Intron 2 genotype AG [facility] [place] Comment: Test Performed by: [facility] [address] [place] [address] [address] [place] [address] HTR2C genotype [id number] CC [facility] Comment: Genotype predicts an increased risk of weight gain with olanzapine treatment. Other clinical and/or genetic factors may influence response. Test Performed by: [facility] [address] [place] [address] [address] [place] [address] HTR2C phenotype Increased risk [facility] [place] Comment: Test Performed by: [facility] [address] [place] [address] [address] [place] [address] IL28B (IFNL4) genotype [id number] CC [facility] [place] Comment: Genotype predicts a normal sustained virologic response (SVR) with peginterferon-containing regimens. Test Performed by: [facility] [address] [place] [address] IL28B (IFNL4) phenotype Normal response [facility] [place] Comment: Test Performed by: [employer] [facility] [address] [place] [address] OPRM1 genotype [id number] AA [facility] Comment: Analgesic effects of alfentanil and tramadol (possibly other opioids) may be higher in patients with this genotype. Other genetic and/or clinical factors influence response. Test Performed by: [facility] [address] [place] [address] [address] [place] [address] OPRM1 phenotype Asn/Asn isoform [facility] [place] Comment: Test Performed by: [facility] [address] [place] [address] [address] [place] [address] CY genotype *1A/*1A [facility] [place] Comment: Normal level of activity. Drugs metabolized at a normal rate. Test Performed by: [facility] [address] [place] [address] [address] [place] [address] CY phenotype Normal [facility] Comment: Test Performed by: [facility] [address] [place] [address] [address] [place] [address] CYP2B6 genotype *1/*6 [facility] [place] Comment: Decreased activity. Drugs converted to active metabolite(s) may have reduced efficacy. Active drugs converted to inactive metabolites may cause side effects or toxicity. Test Performed by: [facility] [address] [place] [address] [address] [place] [address] CYP2B6 phenotype Intermediate [facility] [place] Comment: Test Performed by: [facility] [address] [place] [address] [address] [place] [address] CYP2C9 genotype *1/*1 [facility] [place] Comment: Normal level of activity. Drugs metabolized at a normal rate. Test Performed by: [facility] [address] [place] [address] [address] [place] [address] CYP2C9 phenotype Normal [facility] Comment: Test Performed by: [facility] [address] [place] [address] [address] [place] [address] CYP2D6 genotype *2A/*35 [facility] [place] Comment: Increased activity. Drugs converted to active metabolite(s) may cause side effects or toxicity. Active drugs converted to inactive metabolites may lack efficacy. Test Performed by: [facility] [address] [place] [address] [address] [place] [address] CYP2D6 phenotype Rapid [facility] Comment: Test Performed by: [facility] [address] [place] [address] [address] [place] [address] CY genotype *1/*1 [facility] [place] Comment: Normal level of activity. Drugs metabolized at a normal rate. Test Performed by: [facility] [address] [place] [address] CY phenotype Normal [facility] Comment: Test Performed by: [facility] [address] [place] [address] [address] [place] [address] CY genotype *3/*3 [facility] [place] Comment: Normal dosing may be required because original dosing guidelines for drugs have been established on patients with poor metabolizer phenotype. Test Performed by: [facility] [address] [place] [address] [address] [place] [address] CY phenotype Poor [facility] Comment: Test Performed by: [facility] [address] [place] [id number] NUDT15 genotype [id number] CC [facility] [place] Comment: No increased risk of toxicity of life-threatening toxicities with thiopurine administration related to the NUDT15 genotype. Toxicities with thiopurines can also occur due to impaired TPMT activity, regardless of the NUDT15 status. Test Performed by: [facility] [address] [place] [address] [address] [place] [address] NUDT15 phenotype Normal Risk [facility] Comment: Test Performed by: [facility] [address] [place] [address] [address] [place] [address] UGT1A1 genotype *1/*28 [facility] [place] Comment: Decreased UGT1A1 activity. Increased risk for severe neutropenia with irinotecan, and toxicity and hyperbilirubinemia with nilotinib. Consult drug labeling for dosing recommendations. Genotype also indicates carrier status for Gilbert syndrome, but is not expected to cause marked congenital unconjugated hyperbilirubinemia. Test Performed by: [facility] [address] [place] [address] [address] [place] [address] UGT1A1 phenotype Increased Risk [facility] [place] Comment: Test Performed by: [facility] [address] [place] [address] [address] [place] [address] VKORC1 genotype [id number] GG [facility] Comment: Normal activity of the Vitamin K epoxide reductase enzyme, associated with the c.-1639GG polymorphism. The VKORC1 genotype together with the CYP2C9 genotype determines the sensitivity to warfarin therapy. Test Performed by: [facility] [address] [place] [address] VKORC1 phenotype Normal activity [facility] [place] Comment: Test Performed by: [facility] [address] [place] [address] HCN2R12 genotype *1/*17 [facility] Comment: Increased activity. Drugs converted to active metabolite(s) may cause side effects or toxicity. Active drugs converted to inactive metabolites may lack efficacy. Test Performed by: [facility] [address] [place] [address] [id number] phenotype Rapid [facility] Comment: Test Performed by: [facility] [address] [place] [address] FBLS6L6 genotype *1/*1 [facility] Comment: Normal risk of simvastatin-induced myopathy. Normal function of FBYC5R1. Test Performed by: [facility] [address] [place] [address] [id number] phenotype Normal Risk [facility] [place] Comment: Test Performed by: [facility] [address] [place] [address] Laboratory Comments See Comment [facility] [place] Comment: No comments. Test Performed by: [facility] [address] [place] [address] Laboratory methods See Comment [facility] [place] Comment: Analytical results were produced using tests developed and validated by [facility], a clinical laboratory located at [address] [place] [address]. These tests have not been cleared or approved by the U.S. Food and Drug Administration. [employer] is certified under CLIA-88 and accredited by the [employer] as qualified to perform high-complexity testing. This test is used for clinical purposes and should not be regarded as investigational or for research. Genomic DNA was analyzed by PCR using [employer] TaqMan(R) and/or XiaohongshuQ(R) probe-based methods to interrogate the variant locations [...] are associated with more than one haplotype, [employer] infers and reports the most likely diplotype based on published allele frequency and/or ethnicity data. Inferences with potential clinical impact are reported in the Report and laboratory comments section. The variant detection methods validated by [employer] provide >99.9% accuracy; however, PCR may be [...] or pharmacogenomic specialist. For additional support, contact [employer] through the website or by calling [phone]. The interpretations and clinical annotations provided by [employer] are intended solely for use by a medical professional and do not constitute medical advice by [employer]. The treating provider remains ultimately responsible for all diagnosis and treatment decisions for the patient. [employer] disclaims liability for any errors, omissions or ambiguities in any translation or interpretation of a report by a third green party, including without limitation direct, indirect, incidental, special, [...] and familial factors, various medical conditions, and wizw-rm-fytx interactions. Administration of any medication, including the ones listed in the [employer] reports, requires careful therapeutic monitoring regardless of the phenotype or genotype-predicted interaction reported. As a matter of practice, [employer] will routinely update its pharmacogenomic database as new information becomes available to the scientific community. Genotype-predicted interactions and annotations found on the patient's [facility] comprehensive test report, [facility] Advisor reports, or [facility] specialty reports are therefore dependent on the date of generation and/or the database version used to generate that report. Providers may access these reports with updated annotations using [employer]'s latest released version through the provider portal at portal.[employer]. Test Performed by: [facility] [address] [facility] [address] [place] [address] 03/12/2017 4:07 PM CDT 03/12/2017 4:07 PM CDT Historical Provider LAB GENETIC TESTING [facility] [place] 200 [place] [address], [facility] * [employer] 22-gene PGx test (03/11/2017 10:25 AM CDT) Pathologist [facility] . [facility] Comment: Test ?Result ? Flag ??Unit ??RefValue ? [facility] ?Ethnicity ? White or ?Result ?. ?Final Report: See Documents tab in [employer] LastWord ?or Synthesis. ? 03/11/2017 10:2 5 AM CDT 03/11/2017 10:25 AM CDT Telly Gaines M.D. LAB GENETIC TESTIN G Performing Organization Address [facility] Co de Phone Number [facility] [place] [address] * (ABNORMAL) PROTIME/INR POC-LAB (01/07/2017 8:15 AM MASTER CERTIFIED RV TECHNICIAN) Only the most recent of46 resultswithin the time period is included. INR, POCT, B 2.0(H) 0.8 - 1.2 POWERCHART Blood 01/07/2017 8:15 AM MASTER CERTIFIED RV TECHNICIAN Telly Gaines M.D. LAB HISTORICAL ORD ERS Performing Organization Address [facility] de Phone Number POWERCHART * DX Knee 3 Views (01/06/2017 11:03 AM MASTER CERTIFIED RV TECHNICIAN) Only the most recent of4 resultswithin the time period is included. Anatomical Region Laterality Modality Lower Extremity, Knee N/A Radiograph ic Imaging 01/06/2017 11:0 3 AM MASTER CERTIFIED RV TECHNICIAN Impressions 01/06/2017 11:06 AM MASTER CERTIFIED RV TECHNICIAN Left TKA with patellar resurfacing. No radiographic evidence of loosening. Advanced degenerative arthritis right knee with lateral subluxation at the tibia and patella. Electronically signed by: ?? Prakash Sebastian MD. ??[id number] 06-Jan-2017 11:06 Narrative 01/06/2017 11:06 AM MASTER CERTIFIED RV TECHNICIAN 06-Jan-2017 11:03:00 ??Exam: L Knee 3vw/STDG w/Patella [...] patella. Electronically signed by: Prakash Sebastian MD. [phone] 06-Jan-2017 11:06 José Antonio Mayfield P.A.-C. IMG DIAGNOSTIC I MAGING PROCEDURES * CT Maxillofacial without IV Contrast (11/29/2016 2:57 PM MASTER CERTIFIED RV TECHNICIAN) Anatomical Region Laterality Modality Jaw, Head N/A Computed Tomogra phy 11/29/2016 2:57 PM MASTER CERTIFIED RV TECHNICIAN Impressions 11/29/2016 4:10 PM MASTER CERTIFIED RV TECHNICIAN ??No evidence of abscess within the visualized [...] Electronically signed by: ?? Jayson Moore MD [phone] 29-Nov-2016 16:10 ?Ap Mercer M.D. [phone] 29-Nov-2016 16:10 Narrative 11/29/2016 4:10 PM MASTER CERTIFIED RV TECHNICIAN 29-Nov-2016 14:57:00 ??Exam: CT Maxillofacial wo Indications: [...] formation. Electronically signed by: Jayson Moore MD [phone] 29-Nov-2016 16:10 Ap Mercer M.D. [id number] 16:10 Alexandra Mcelroy M.D., M.S. IMG CT PROCE DURES * Cardiac Biomarker Panel (11/29/2016 1:19 PM MASTER CERTIFIED RV TECHNICIAN) Only the most recent of2 resultswithin the time period is included. Delta Interp Not Sig DO CL [facility] Comment:No significant delta observed. Troponin Delta 0.00 NG/ML [facility] [place] Troponin T, S <0.01 <0.01 NG/ML [facility] [place] Troponin T 3H, S <0.01 <0.01 NG/ML [facility] [place] Troponin T 6H, S . [facility] [place] Comment:Test canceled. Patie nt discharged - N/C 11/29/2016 1:19 PM MASTER CERTIFIED RV TECHNICIAN 11/29/2016 1:19 PM MASTER CERTIFIED RV TECHNICIAN Alexandra Mcelroy M.D., M.S. LAB BLOOD AD D-ON Performing Organization Address City/[facility] Co de Phone Number [facility] [place] [address] * Sedimentation Rate (11/29/2016 1:19 PM MASTER CERTIFIED RV TECHNICIAN) Only the most recent of2 resultswithin the time period is included. Sedimentation Rate, B 24 0 - 29 MM/1 H [facility] [place] 11/29/2016 1:19 PM MASTER CERTIFIED RV TECHNICIAN 11/29/2016 1:19 PM MASTER CERTIFIED RV TECHNICIAN Alexandra Mcelroy M.D., M.S. LAB BLOOD AD D-ON Performing Organization Address City/[facility]/ZIP Co de Phone Number [facility] [place] [address] * (ABNORMAL) Protime/INR, POCT (10/30/2016 10:05 AM MASTER CERTIFIED RV TECHNICIAN) Only the most recent of14 resultswithin the time period is included. INR, POCT, B 2.2(H) 1 - 1 POWERCHART 10/30/2016 10:0 5 AM MASTER CERTIFIED RV TECHNICIAN Telly Gaines M.D. LAB POCT ORDERABLE S - DEVICE POWERCHART * ECHOCARDIOLOGY IMAGE EXAM (09/02/2016 3:48 [...] obstructing mass or calculus disease. Becky Rust(R)(CT), R.THarmony(R) IMG C T PROCEDURES * (ABNORMAL) Urinalysis, [...] POWERCHART Ketones, QL(U) Negative Negative POWERCHART Specific Spivey, POCT, U 1.010 1.001 - 1.035 POWERCHART pH, POCT, Urine 6.5 POWERCHART Protein, Ur, Dip Negative Negative POWERCHART Urobilinogen 1.0 0.2 MGDL POWERCHART HXNITRITE Negative Negative POWERCHART HXBLOOD Negative Negative POWERCHART Leukocyte Esterase Negative Negative POWERCHART Urine, First Voided 05/10/2016 9:33 AM CDT Jose A Muller M.D. LAB URINE ORDERABLES POWERCHART * ALT (Alanine Aminotransferase) (05/05/2016 9:58 AM CDT) Only the most recent of5 resultswithin the time period is included. Pathologist [facility] Alanine Aminotransferase (ALT), S 19 7 - 45 U/L [facility] [place] 05/05/2016 9:58 AM CDT 05/05/2016 9:58 AM CDT Telly Gaines M.D. LAB BLOOD ADD-ON [facility] [place] [address] [place] [address], [facility] * Glucose, Random (05/05/2016 9:58 AM CDT) Only the most recent of2 resultswithin the time period is included. Glucose, S 108 70 - 140 MG/DL [facility] [place] 05/05/2016 9:58 AM CDT 05/05/2016 9:58 AM CDT Telly Gaines M.D. LAB BLOOD TROPONIN Performing Organization Address City/[facility]/ZIP Co de Phone Number [facility] [place] [address] * Calcium, Total (05/05/2016 9:58 AM CDT) Only the most recent of3 resultswithin the time period is included. Calcium, Total, S 9.4 8.9 - 10.1 MG/DL [facility] [place] 05/05/2016 9:58 AM CDT 05/05/2016 9:58 AM CDT Telly Gaines M.D. LAB BLOOD ADD-ON Performing Organization Address City/[facility] Co de Phone Number [facility] [place] [address] * Hemoglobin A1c (05/05/2016 9:57 AM CDT) Only the most recent of2 resultswithin the time period is included. Hemoglobin A1c, B 5.9 4.0 - 6.0 % [facility] [place] 05/05/2016 9:57 AM CDT 05/05/2016 9:57 AM CDT Telly Gaines M.D. LAB BLOOD ADD-ON Performing Organization Address City/[facility] Co de Phone Number [facility] [place] [address] * BI Ultrasound Exam (05/16/2015 11:24 [...] her of the results. Sanjuana Brizuela M.D. [facility]/:05/16/2015 11:14:41 letter sent: 1D/2D - Negative Diagnostic [...] ?? results. ?? Sanjuana Brizuela M.D. ? [facility]/:05/16/2015 11:14:41 ?? letter sent: 1D/2D - Negative [...] her of the results. Sanjuana Brizuela M.D. [facility]/:05/16/2015 11:14:41 letter sent: 1D/2D - Negative Diagnostic OVERALL STUDY BIRADS: 2 Benign Electronically signed by: Prakash Brizuela MD [phone] 16-May-2015 11:24 Telly Gaines M.D. IMG BI [...] radiology department to arrange additional imaging. Ryan jamesg/penrad:05/15/2015 14:53:48 letter sent: 0 - Additional Imaging [...] spur. Electronically signed by: Alli Abdi MD [phone] 14-May-2015 12:46 Jean Stewart M.D. IMG DIAGNOSTIC [...] Electronically signed by: ?? Prakash Garcia MD [phone] 26-Feb-2015 11:14 ?Ofelia De La Cruz MD. ??[phone] 26-Feb-2015 11:14 Procedure Note Nathanael De La [...] hernia. Electronically signed by: Prakash Garcia MD 8-26-Feb-2015 11:14 Ofelia De La Cruz MD. [phone] 11:14 Ap Buckley M.D., Ph.D. G CT PROCE DURES * (ABNORMAL) Electrolyte (Chem 4) Panel (12/01/2014 5:16 AM MASTER CERTIFIED RV TECHNICIAN) Only the most recent of9 resultswithin the time period is included. Chloride, S 105 98 - 107 MMOL/L [facility] [place] HX Bicarbonate, P/S 24 22 - 29 MMOL/L [facility] [place] eGFR-Black/Afri can Guinean >60 >60 ML/MIN/BSA [facility] [place] BUN (Blood Urea Nitrogen), S 16 6 - 21 MG/DL [facility] [place] Sodium, S 142 135 - 145 MMOL/L [facility] [place] Potassium, S 3.8 3.6 - 5.2 MMOL/L [facility] [place] Creatinine 0.9 0.6 - 1.1 MG/DL [facility] [place] eGFR Non-Black/Afric an Guinean >60 >60 ML/MIN/BSA [facility] [place] Anion Gap 13 7 - 15 [facility] Glucose, S 145(H) 70 - 140 MG/DL [facility] [place] 12/01/2014 5:16 AM MASTER CERTIFIED RV TECHNICIAN 12/01/2014 5:16 AM MASTER CERTIFIED RV TECHNICIAN Ap Buckley M.D., Ph.D. LAB BLOOD AD D-ON [facility] [place] [address] * (ABNORMAL) ACT (Activated Clotting Time), POCT (11/30/2014 4:19 PM MASTER CERTIFIED RV TECHNICIAN) Only the most recent of19 resultswithin the time period is included. Activated Clotting Time, POCT 231(H) 84 - 139 SEC [facility] [place] 11/30/2014 4:19 PM MASTER CERTIFIED RV TECHNICIAN 11/30/2014 4:19 PM MASTER CERTIFIED RV TECHNICIAN Historical Provider LAB POCT ORDERABLES - DEVICE Performing Organization Address City/[facility] Co de Phone Number [facility] [place] [address] * Heart Rhythm Procedure - Ablation (11/30/2014 7:59 AM MASTER CERTIFIED RV TECHNICIAN) Anatomical Region Laterality Modality Cardiac Electrop hysiology 11/30/2014 7:59 AM MASTER CERTIFIED RV TECHNICIAN Historical Provider CV ELECTROPHYSIOLOGY PROCS * Echo Transesophageal (THU) (11/29/2014 12:20 PM MASTER CERTIFIED RV TECHNICIAN) Anatomical Region Laterality Modality Echocardiography 11/29/2014 12:2 0 PM MASTER CERTIFIED RV TECHNICIAN Ap Buckley M.D., Ph.D. CV ECHO PROC EDURES * ABORh, RBC (11/29/2014 8:25 AM MASTER CERTIFIED RV TECHNICIAN) Only the most recent of5 resultswithin the time period is included. HXABO/RH BLOOD TYPE A Pos [facility] [place] 11/29/2014 8:25 AM MASTER CERTIFIED RV TECHNICIAN Historical Provider LAB BLOOD BANK TEST ORDERABLES Performing Organization Address City/[facility]/ZIP Co de Phone Number [facility] [place] [address] * Antibody Screen, RBC (11/29/2014 8:25 AM MASTER CERTIFIED RV TECHNICIAN) Only the most recent of4 resultswithin the time period is included. Antibody Screen Negative [facility] [place] 11/29/2014 8:25 AM MASTER CERTIFIED RV TECHNICIAN Historical Provider LAB BLOOD BANK TEST ORDERABLES Performing Organization Address City/[facility] Co de Phone Number [facility] [place] [address] * T4 (Thyroxine), Free (11/29/2014 7:47 AM MASTER CERTIFIED RV TECHNICIAN) Pathologist [facility] T4 (Thyroxine), Free, S 1.4 0.9 - 1.7 NG/DL [facility] [place] 11/29/2014 7:47 AM MASTER CERTIFIED RV TECHNICIAN 11/29/2014 7:47 AM MASTER CERTIFIED RV TECHNICIAN Ap Buckley M.D., Ph.D. LAB BLOOD AD D-ON Performing Organization Address City/[facility]/ZIP Co de Phone Number [facility] [place] [address] * US Lower Extremity Veins (10/23/2014 5:51 PM MASTER CERTIFIED RV TECHNICIAN) Anatomical Region Laterality Modality Vascular, Lower Extremity Ultras ound 10/23/2014 5:51 PM MASTER CERTIFIED RV TECHNICIAN Impressions 10/24/2014 8:24 AM MASTER CERTIFIED RV TECHNICIAN ??Negative for acute DVT. FINDINGS: The common femoral, upper deep femoral, femoral and popliteal veins are widely patent bilaterally, without thrombus. The posterior tibial and peroneal veins were segmentally visualized bilaterally and are normal where seen. The great saphenous veins bilaterally are patent and negative for thrombus. Electronically signed by: ?? Alli Vazquez MD [phone] 23-Oct-2014 19:33 I have reviewed the films/images and agree with the above interpretation. Electronically signed by: ?? Prakash Ritter ?? [phone] 24-Oct-2014 08:24 Narrative 10/24/2014 8:24 AM MASTER CERTIFIED RV TECHNICIAN 23-Oct-2014 17:51:00 ??Exam: US Lower Extremity Veins Comp Indications: ED [id number] US Lower Extremity DVT-BOTH, leg swelling, palpitations, concern for DVT ORIGINAL REPORT - 23-Oct-2014 19:33:00 EXAM: ??US Extremity Duplex Scan Veins Complete with color and spectral Doppler analysis COMPARISON: ??Left lower extremity venous ultrasound 09/17/2011 and right lower extremity venous ultrasound 04/08/2007. Procedure Note Pastor Ritter M.D. - 02/11/2018 23-Oct-2014 17:51:00 Exam: US Lower Extremity Veins Comp Indications: ED [id number] US Lower Extremity DVT-BOTH, leg swelling,palpitations, concern [...] thrombus. Electronically signed by: Alli Vazquez MD [phone] 23-Oct-2014 19:33 I have reviewed the films/images and agree with the above interpretation. Electronically signed by: Prakash Ritter MD [phone] 24-Oct-2014 08:24 Fito Robb M.D. IMG US PROCEDURES * (ABNORMAL) APTT (Activated Partial Thromboplastin Time) (10/23/2014 4:11 PM MASTER CERTIFIED RV TECHNICIAN) Only the most recent of2 resultswithin the time period is included. APTT, P 42(H) 28 - 38 SEC [facility] 10/23/2014 4:11 PM MASTER CERTIFIED RV TECHNICIAN 10/23/2014 4:11 PM MASTER CERTIFIED RV TECHNICIAN Fito Robb M.D. LAB BLOOD ADD-ON Performing Organization Address [facility] de Phone Number [facility] [place] [address] * Rapid Strep A Screen (10/17/2014 8:52 AM MASTER CERTIFIED RV TECHNICIAN) HXRapid Strep Confirmation POWERCHART HXPre Negative for Group A Strep by culture. POWERCHART HXFinal Negative for Group A Strep by culture. POWERCHART Throat 10/17/2014 8:52 AM MASTER CERTIFIED RV TECHNICIAN Historical Provider LAB MICROBIOLOGY - G ENERAL ORDERABLES Performing Organization Address [facility] de Phone Number POWERCHART * Automated Differential (10/08/2014 11:21 AM MASTER CERTIFIED RV TECHNICIAN) Only the most recent of2 resultswithin the time period is included. Absolute Neutrophils 4.09 1.70 - 7.00 109L POWERCHART Lymphocytes 2.89 0.90 - 2.90 X109L POWERCHART Monocytes 0.62 0.30 - 0.90 X109L POWERCHART Eosinophils 0.24 0.05 - 0.50 X109L POWERCHART Absolute Basophil 0.04 0.00 - 0.30 X109L POWERCHART Blood 10/08/2014 11:2 1 AM MASTER CERTIFIED RV TECHNICIAN 10/08/2014 11:21 AM MASTER CERTIFIED RV TECHNICIAN Sumaya Parekh APRN, C.N.P., D.N.P., R .N. LAB BLOOD ADD-ON Performing Organization Address [facility] de Phone Number POWERCHART * DX Foot [...] Alli Abdi MD [phone] 30-May-2014 08:01 Jean Steawrt M.D. IMJanet DIAGNOSTIC JAMEE GING PROCEDURES * Outside DX Skeletal (04/13/2014 11:22 AM CDT) Only the most recent of5 resultswithin the time period is included. 04/13/2014 11:2 2 AM CDT Addenda Addendum by ProviderBessy M.D. on 04/13/2014 11:22 AM CDT ODM^^^MCR XR Foot Left 3 or more views 04/13/2014 11:22:57 Historical Provider IMG DIAGNOSTIC IMAGI NG PROCEDURES [facility] [address] [place], [place] [id number], [facility] * DX Foot Left 3+ Views (04/13/2014 [...] 1:46 PM CDT Narrative [facility] [place] - 04/05/2014 1:46 PM CDT ??04/05/2014 General Biopsy ?([id number]) ? Requested By: Leonardo Mckeon, B. Chir. ??[phone] ? Additional Physician: ??Robin Tong M.D. [phone] ? SLIDE DISPOSITION: ? DIAGNOSIS: ?? A. [...] 16:03 Interpreted by: Helder Guerra ??Nayely Bagley [phone] Report electronically signed by Helder Guerra ??Nayely Bagley Transcribed by: [facility] 04/10/2014 15:44:00 ? TISSUE DESCRIPTION: [id number] A1B1C1 ?A. ??Received in formalin labeled with [...] ? Procedure Note 02/09/2018 04/05/2014 General Biopsy ([id number]) Requested By: Leonardo Mckeon, B. [facility]. [phone] Additional Physician: Robin Tong M.D. [phone] SLIDE DISPOSITION: DIAGNOSIS: A. Colon, ascending, hepatic [...] 04/10/2014 16:03 Interpreted by: Helder Bagley M.D. [phone] Report electronically signed by Helder Bagley M.D. Transcribed by: [facility] 04/10/2014 15:44:00 TISSUE DESCRIPTION: [id number] A1B1C1 A. Received in formalin labeled with [...] LAB PATHOL OGY/CYTOLOGY ORDERABLES Performing Organization Address City/[facility]/ZIP Co de Phone Number [address] * Colonoscopy (04/05/2014 12:00 PM CDT) 04/05/2014 12:0 0 PM CDT Dominique Woods GI PROCEDU RE ORDERABLES [facility] [address] [place] [address] * Echo Transthoracic (TTE) (02/27/2014 2:49 PM CDT) Anatomical Region Laterality Modality Echocardiography 02/27/2014 2:49 PM CDT Ap Buckley M.D., Ph.D. CV ECHO PROC EDURES * Pernicious Anemia [place] (01/22/2014 10:37 AM CDT) Vitamin B12 Assay, S 628 180 - 914 NG/L [facility] [place] 01/22/2014 10:3 7 AM CDT 01/22/2014 10:37 AM CDT Dominique Woods LAB BLOOD NON ADD-ON [facility] [place] [address] [place] [address], [facility] * 25-Hydroxyvitamin D2 and D3 (01/22/2014 10:37 AM CDT) 25-Hydroxy D Total 27 SeeComment NG/ML [facility] [place] Comment: Reference Range: ? 25-HYDROXY D TOTAL (D2+D3) Optimum levels in the healthy ? population are 20-50, patients with bone disease may ? benefit from higher levels within this range. ? 25-Hydroxy D2 <4.0 NG/ML [facility] 25-Hydroxy D3 27 NG/ML [facility] 01/22/2014 10:3 7 AM CDT 01/22/2014 10:37 AM CDT Dominique Woods LAB BLOOD ADD-ON Performing Organization Address City/[facility]/ZIP Co de Phone Number [facility] [place] [address] * Alkaline Phosphatase (01/22/2014 10:37 AM CDT) Only the most recent of2 resultswithin the time period is included. Alkaline Phosphatase, S 77 55 - 142 U/L [facility] [place] 01/22/2014 10:3 7 AM CDT 01/22/2014 10:37 AM CDT Akil Woods. LAB BLOOD ADD-ON Performing Organization Address [facility] Co de Phone Number [facility] [place] [address] * Bilirubin, Direct (01/22/2014 10:37 AM CDT) Bilirubin, Direct, S 0.1 0.0 - 0.3 MG/DL [facility] [place] 01/22/2014 10:3 7 AM CDT 01/22/2014 10:37 AM CDT Akil Woods. LAB BLOOD ADD-ON Performing Organization Address City/[facility] Co de Phone Number [facility] [place] [address] * Bilirubin, Total (01/22/2014 10:37 AM CDT) Only the most recent of2 resultswithin the time period is included. Bilirubin, Total, S 0.5 0.1 - 1.0 MG/DL [facility] [place] 01/22/2014 10:3 7 AM CDT 01/22/2014 10:37 AM CDT Dominique Woods LAB BLOOD ADD-ON Performing Organization Address City/[facility] Co de Phone Number [facility] [place] [address] * Albumin (01/22/2014 10:37 AM CDT) Only the most recent of3 resultswithin the time period is included. Albumin, S 4.4 3.5 - 5.0 G/DL [facility] [place] 01/22/2014 10:3 7 AM CDT 01/22/2014 10:37 AM CDT Dominique Woods LAB BLOOD ADD-ON Performing Organization Address [facility] de Phone Number [facility] [place] [address] * US Abdomen Complete (01/16/2014 11:00 AM MASTER CERTIFIED RV TECHNICIAN) Anatomical Region Laterality Modality Abdomen N/A Ultrasound 01/16/2014 11:0 0 AM MASTER CERTIFIED RV TECHNICIAN Narrative 01/16/2014 11:42 AM MASTER CERTIFIED RV TECHNICIAN 16-Jan-2014 11:00:00 ??Exam: US Abdomen Complete Indications: [...] Electronically signed by: ?? Cortney Foreman MD [phone] 16-Jan-2014 11:42 ?Aileen Novoa MD [phone] 16-Jan-2014 11:42 Procedure Note Brennon Novoa M.D. [...] seen. Electronically signed by: Cortney Foreman MD [phone] 16-Jan-2014 11:42 Aileen Novoa MD [id number] 11:42 Telly Gaines M.D. [facility] US PROCEDURES * Troponin T, 5th Generation (12/26/2013 5:34 AM [facility]) Troponin T, S <0.010 -<0.01 ng/mL HX [place] CONVERSION 12/26/2013 5:34 AM [facility] 12/26/2013 5:34 AM [facility] Baron Chavis M.D. LAB BLOOD ADD-ON Performing Organization Address [facility]/ZIP Co de Phone Number HX [place] CONVERSION * ECG 12 Lead with rhythm strip (12/26/2013 12:00 AM [facility]) 12/26/2013 Historical Provider ECG ORDERABLES Performing Organization Address [facility] Co de Phone Number HX [place] CONVERSION * Nucleated RBC (12/25/2013 10:18 AM [facility]) Nucleated RBC 0.0 /100 WBC HX [place] CONVERSION 12/25/2013 10:1 8 AM [facility] 12/25/2013 10:18 AM [facility] Historical Provider LAB BLOOD NON ADD-ON Performing Organization Address [facility] de Phone Number HX [place] CONVERSION * (ABNORMAL) Electrolyte Panel (12/25/2013 10:18 AM [facility]) HCO3, Venous 25 22 - 29 mmol/L HX [place] CONVERSION Chloride, S 106 100 - 108 mmol/L HX [place] CONVERSION Anion Gap 11 7 - 15 HX [place] CONVERSION Potassium, S 3.7(L) 3.8 - 5.0 mmol/L HX [place] CONVERSION Sodium, S 142 135 - 145 mmol/L HX [place] CONVERSION 12/25/2013 10:1 8 AM MST 12/25/2013 10:18 AM [facility] Alexandru Zuniga D.O. LAB BLOOD ADD-ON Performing Organization Address [facility] Co de Phone Number HX [place] CONVERSION * Protein, Total (12/25/2013 10:18 AM [facility]) Protein, Total, S 7.1 6.3 - 7.9 g/dL HX [place] CONVERSION 12/25/2013 10:1 8 AM [facility] 12/25/2013 10:18 AM [facility] Alexandru Zuniga D.O. LAB BLOOD ADD-ON HX [place] CONVERSION * EP ABL (11/24/2013 9:02 AM MASTER CERTIFIED RV TECHNICIAN) Anatomical Region Laterality Modality Other 11/24/2013 9:02 AM MASTER CERTIFIED RV TECHNICIAN Historical Provider IMG NON RAD IMAGING PROCEDURES * Heart Rhythm Procedure - Ablation (11/24/2013 7:47 AM MASTER CERTIFIED RV TECHNICIAN) Anatomical Region Laterality Modality Cardiac Electrop hysiology 11/24/2013 7:47 AM MASTER CERTIFIED RV TECHNICIAN Ap Buckley M.D., Ph.D. CV ELECTROPH YSIOLOGY PROCS * Echo Transesophageal (THU) (11/23/2013 1:21 PM MASTER CERTIFIED RV TECHNICIAN) Anatomical Region Laterality Modality Echocardiography 11/23/2013 1:21 PM MASTER CERTIFIED RV TECHNICIAN Ap Buckley M.D., Ph.D. CV ECHO PROC EDURES * Echo Transthoracic (TTE) (11/23/2013 9:23 AM MASTER CERTIFIED RV TECHNICIAN) Anatomical Region Laterality Modality Echocardiography 11/23/2013 9:23 AM MASTER CERTIFIED RV TECHNICIAN Ap Buckley M.D., Ph.D. CV ECHO PROC EDURES * PUL Home Overnight Oximetry (10/19/2013 3:16 PM MASTER CERTIFIED RV TECHNICIAN) 10/19/2013 3:16 PM MASTER CERTIFIED RV TECHNICIAN Shawn Gutierrez M.D., M.S. PFT EVAN GALLAGHER [facility] [place] [address] [place], [place] [address] * Echo Transesophageal (THU) (09/13/2013 3:40 PM CDT) Anatomical Region Laterality Modality Echocardiography 09/13/2013 3:40 PM CDT Historical Provider CV ECHO PROCEDURES * Fungal Smear (06/27/2013 1:38 PM CDT) HXKOH S/H/N POWERCHART HXFinal No fungal elements seen. POWERCHART HXFinal Reference: No fungal elements seen. POWERCHART Skin 06/27/2013 1:38 PM CDT Sumaya Parekh APRN, C.N.P., D.N.P., [...] milliliter Electronically signed by: ?? Reed Mauricio [facility] [phone] [id number] 31-May-2013 11:57 ?PHarmony Christian MD. ??[phone] 31-May-2013 11:57 Procedure Note Jose A Christian [...] 40 milliliter Electronically signed by: Reed VENTURA [phone] [id number] 31-May-2013 11:57 Fredrick Christian MD.[phone] 31-May-2013 11:57 Ap Buckley M.D., Ph.D. IMG MRI PROC EDURES * PUL Home Overnight Oximetry (05/16/2013 11:00 PM CDT) 05/16/2013 11:0 0 PM CDT Garret Banks M.D. PFT ORDERABLES [facility] [place] [address] * PUL Home Overnight Oximetry (05/11/2013 12:13 PM CDT) 05/11/2013 12:1 3 PM CDT Telly Baldwin M.D. PFT ORDERABLES Performing Organization Address [facility] Co de Phone Number [facility] [place] [address] * DX Finger 2+ Views (03/29/2013 [...] Electronically signed by: ?? Annalisa Zepeda MD [phone] ([id number]) 29-Mar-2013 11:29 Procedure Note Morgan Zepeda [...] IPjoints. Electronically signed by: Annalisa Zepeda MD [phone] ([id number]) 29-Mar-2013 11:29 Helder Venegas M.D. IMG DIAGNOSTIC I MAGING PROCEDURES * Exercise ECG (02/16/2013 8:04 AM CDT) 02/16/2013 8:04 AM CDT Lukas Pendleton M.D. CV STRESS PROCEDURE S [facility] [address] [place] [address] * Phosphorus Inorganic (02/16/2013 4:41 AM CDT) Phosphorus (Inorganic), S 3.9 2.5 - 4.5 MG/DL [facility] [place] 02/16/2013 4:41 AM CDT 02/16/2013 4:41 AM CDT Mickey Jenkins M.D., Ph.D. LAB BLOOD ADD-ON [facility] [place] [address] * pH (02/13/2013 11:00 AM CDT) pH 7.41 7.35 - 7.45 PH [facility] [place] 02/13/2013 11:0 0 AM CDT 02/13/2013 11:00 AM CDT Historical Provider LAB HISTORICAL ORDER S [facility] [place] [address] * Calcium, Ionized (02/13/2013 11:00 AM CDT) Calcium, Ionized, B 5.00 4.65 - 5.30 MG/DL [facility] [place] 02/13/2013 11:0 0 AM CDT 02/13/2013 11:00 AM CDT Historical Provider LAB BLOOD NON ADD-ON [facility] [place] [address] [place] [address], [facility] * PHYSICAL MEDICINE AND REHAB IMAGE EXAM (02/08/2013 7:35 AM CDT) Only the most recent of2 resultswithin the time period is included. Anatomical Region Laterality Modality Other 02/08/2013 7:35 AM CDT Addenda Addendum by ProviderBessy M.D. on 02/08/2013 7:35 AM CDT PMR^^^MCR Guided Injection 02/08/2013 07:35:26 Historical Provider IMG NON RAD IMAGING PROCEDURES * DX Pelvis 1-2 Views (01/12/2013 10:35 AM MASTER CERTIFIED RV TECHNICIAN) Anatomical Region Laterality Modality Pelvis N/A Radiographic Jamee ging 01/12/2013 10:3 5 AM MASTER CERTIFIED RV TECHNICIAN Narrative 01/12/2013 10:45 AM MASTER CERTIFIED RV TECHNICIAN 12-Jan-2013 10:35:00 ??Exam: B Pelvis STDG w Lat Hip Indications: Pain Hip Chetan ORIGINAL REPORT - 12-Jan-2013 10:45:00 Demineralization. 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 Lower lumbar facet arthropathy. Mesh repair within the pelvis. Electronically signed by: ?? Alli Abdi MD [phone] 12-Jan-2013 10:45 Procedure Note Dionte Abdi M.D. [...] Extractable Nuclear Antigen Evaluation (01/05/2013 1:56 PM MASTER CERTIFIED RV TECHNICIAN) SS-A/Ro Ab, IgG, S <0.2 <1.0 (Negative) U [facility] [place] SS-B/La Ab, IgG, S <0.2 <1.0 (Negative) U [facility] [place] Scl 70 Ab, IgG, S <0.2 <1.0 (Negative) U [facility] [place] Vida 1 Ab, IgG, S <0.2 <1.0 (Negative) U [facility] [place] Sm Ab, IgG, S <0.2 <1.0 (Negative) U [facility] [place] RADON INSPECTOR Ab, IgG, S 0.6 <1.0 (Negative) U [facility] [place] 01/05/2013 1:56 PM MASTER CERTIFIED RV TECHNICIAN 01/05/2013 1:56 PM MASTER CERTIFIED RV TECHNICIAN Harini Pinedo M.D. LAB BLOOD ADD-ON Performing Organization Address City/[facility]/ZIP Co de Phone Number [facility] [place] [address] * Cyclic Citrullinated Peptide Antibodies, IgG (01/05/2013 1:56 PM MASTER CERTIFIED RV TECHNICIAN) Pathologist [facility] Cyclic Citrullinated Peptide Ab, S <15.6 <20.0 (Negative ) U [facility] [place] 01/05/2013 1:56 PM MASTER CERTIFIED RV TECHNICIAN 01/05/2013 1:56 PM MASTER CERTIFIED RV TECHNICIAN Harini Pinedo M.D. LAB BLOOD ADD-ON [facility] [place] [address] * CK (Creatine Kinase) (01/05/2013 1:56 PM MASTER CERTIFIED RV TECHNICIAN) Pathologist [facility] Creatine Kinase (CK), S 97 38 - 176 U/L [facility] [place] 01/05/2013 1:56 PM MASTER CERTIFIED RV TECHNICIAN 01/05/2013 1:56 PM MASTER CERTIFIED RV TECHNICIAN Harini Pinedo M.D. LAB BLOOD ADD-ON [facility] [place] [address] [place] [address], [facility] * MR Pelvis without IV Contrast (12/20/2012 4:22 PM MASTER CERTIFIED RV TECHNICIAN) Anatomical Region Laterality Modality Pelvis N/A Magnetic Resonan ce 12/20/2012 4:22 PM MASTER CERTIFIED RV TECHNICIAN Narrative 12/20/2012 4:48 PM MASTER CERTIFIED RV TECHNICIAN 20-Dec-2012 16:22:00 ??Exam: MRI PELVIS wo Indications: [...] signed by: ?? Jocelyne Garrison ?? [phone] 20-Dec-2012 16:48 Procedure Note Jocelyne Garrison M.D. [...] regions. Electronically signed by: Jocelyne Garrison MD [phone] 20-Dec-2012 16:48 Charisma Santiago M.D. IMG MRI PROCEDURES * DX Sacroiliac Joints 3+ Views (12/20/2012 12:19 PM MASTER CERTIFIED RV TECHNICIAN) Anatomical Region Laterality Modality Sacral Spine N/A Radiographic Jamee ging 12/20/2012 12:1 9 PM MASTER CERTIFIED RV TECHNICIAN Narrative 12/20/2012 12:49 PM MASTER CERTIFIED RV TECHNICIAN 20-Dec-2012 12:19:00 ??Exam: Pelvis w/Sacro-Iliac obl. 3vw [...] PROCEDURES * FL Esophagram (10/11/2012 1:23 PM MASTER CERTIFIED RV TECHNICIAN) Only the most recent of2 resultswithin the time period is included. Anatomical Region Laterality Modality Gastro Intestinal N/A Radiographic I maging 10/11/2012 1:23 PM MASTER CERTIFIED RV TECHNICIAN Impressions 10/11/2012 1:34 PM MASTER CERTIFIED RV TECHNICIAN Small sliding hiatal hernia and high level spontaneous gastroesophageal reflux. FINDINGS: Normal swallowing mechanism. Esophageal peristalsis is intact. There is a small sliding hiatal hernia and high level spontaneous gastroesophageal reflux. A 13 mm barium tablet passed through the esophagus without difficulty. [id number] Electronically signed by: ?? Ian Zepeda MD [phone] 11-Oct-2012 13:34 Narrative 10/11/2012 1:34 PM MASTER CERTIFIED RV TECHNICIAN 11-Oct-2012 13:23:00 ??Exam: GI-Esophagram Indications: Dysphagia NOS [...] Electronically signed by: ?? Annalisa Zepeda MD [phone] ([id number]) 12-Sep-2012 13:37 Procedure Note Morgan Zepeda M.D. [...] osteopenia. Electronically signed by: Annalisa Zepeda MD [phone] ([id number]) 12-Sep-2012 13:37 Jose OCHOA DIAGNOSTIC IMAGI NG [...] her of the results. Prakash Mathur M.D. [facility]:08/23/2012 14:09:19 letter sent: 1S/2S - Negative Screen Mammogram BI-RADS: 1 Negative Electronically signed by: Prakash Mathur MD 23-Aug-2012 14:10 Telly Gaines M.D. IMG BI PROCEDURES * HSV/VZV Direct Smear (08/19/2012 3:11 PM CDT) Source lower lip POWERCHART HXHSV/VZV Result-[place] See Comment Not applicable POWERCHART Comment: Negative for Herpes simplex type I and II DNA and Varicella zoster DNA. Analyte Specific Reagent. This test was developed and its performance characteristics determined by [facility]. It has not been cleared or approved by the U.S. Food and Drug Administration. Test Performed by: [facility] [place] [address] Ball Holder: Saad Coleman III, M.D. [place] Review 08/19/2012 3:11 PM CDT Sumaya Parekh [...] pelvis. Electronically signed by: ?? Marycruz RUBIO [phone] ([id number]) 26-Feb-2012 13:44 Procedure Note Raul Monk [...] the pelvis. Electronically signed by: Marycruz RUBIO [phone] ([id number]) 26-Feb-2012 13:44 Jose Chung M.D. G DIAGNOSTIC IMAGI NG PROCEDURES * DX Shoulder [...] union. Electronically signed by: Berta Dior MD [phone] 18-Feb-2012 07:39 Joaquín Parekh D.O. IMG DIAGNOSTIC JAMEE GING PROCEDURES * DX Clavicle Serendipity 1 View (12/27/2011 7:16 PM MASTER CERTIFIED RV TECHNICIAN) Anatomical Region Laterality Modality Upper Extremity, Clavicle N/A Radiog raphic Imaging 12/27/2011 7:16 PM MASTER CERTIFIED RV TECHNICIAN Narrative 12/27/2011 7:44 PM MASTER CERTIFIED RV TECHNICIAN 27-Dec-2011 19:16:00 ??Exam: R Clavicle 1vw Serendipity [...] Electronically signed by: ?? Michael Smalls MD [phone] 27-Dec-2011 19:24 I have reviewed the films/images and agree with the above interpretation. Electronically signed by: ?? Prakash Pitts MD [phone] 27-Dec-2011 19:44 Procedure Note Jean Pitts M.D. [...] today. Electronically signed by: Michael Smalls MD [phone] 27-Dec-2011 19:24 I have reviewed the films/images and agree with the above interpretation. Electronically signed by: Prakash Pitts MD [phone] 27-Dec-2011 19:44 Michael OCHOA DIAGNOSTIC IMAGI NG PROCEDURES * DX Clavicle (12/27/2011 2:53 PM MASTER CERTIFIED RV TECHNICIAN) Anatomical Region Laterality Modality Upper Extremity, Shoulder, Clavicle N/A Radiographic Imaging 12/27/2011 2:53 PM MASTER CERTIFIED RV TECHNICIAN Narrative 12/27/2011 4:41 PM MASTER CERTIFIED RV TECHNICIAN 27-Dec-2011 14:53:00 ??Exam: R Clavicles Upright Landscape [...] by: ?? Prakash Pitts MD [phone] 27-Dec-2011 16:41 Procedure Note Jean Pitts M.D. - 02/12/2018 27-Dec-2011 14:53:00 Exam: R Clavicles Upright Landscape Indications: clavicle fracture ?shifted, has right clavicle shifted?difficulty swallowing ORIGINAL REPORT - 27-Dec-2011 15:00:00 Right Clavicles Upright Landscape Orientation, 2vw: Comminuted fracture through the distal right clavicle. The rightacromioclavicular joint is slightly wider compared to the left (8mm [id number]). the distal aspect of the proximal clavicular fragment is [id number]. The sternoclavicular articulations appear intact. Electronically signed by: Reed Thurston MD [phone] 27-Dec-2011 15:00 I have reviewed the films/images and agree with the above interpretation. Electronically signed by: Prakash Pitts MD [phone] 27-Dec-2011 16:41 Ap Gomes M.D. IMG DIAGNOSTIC JAMEE GING PROCEDURES * Outside DX Chest (12/16/2011 1:44 AM MASTER CERTIFIED RV TECHNICIAN) 12/16/2011 1:44 AM MASTER CERTIFIED RV TECHNICIAN Addenda Addendum by ProviderBessy M.D. on 12/16/2011 1:44 AM MASTER CERTIFIED RV TECHNICIAN ODM^^^MCR CLAVICLE, RIGHT Complete 12/16/2011 01:44:10 Historical Provider IMG DIAGNOSTIC IMAGI NG PROCEDURES [address] * NM Lung Ventilation and Perfusion (09/25/2011 5:24 PM MASTER CERTIFIED RV TECHNICIAN) Anatomical Region Laterality Modality Chest N/A Nuclear Medicine 09/25/2011 5:24 PM MASTER CERTIFIED RV TECHNICIAN Addenda Addendum by Fanny Méndez M.D. on 09/25/2011 9:54 PM MASTER CERTIFIED RV TECHNICIAN APPENDED REPORT - 25-Sep-2011 21:54:00 Perfusion abnormalities appear to be matched on first breath images. ?? Agree with the interpretation that the probablity of PE is low. Electronically signed by: ?? Fanny Méndez MD [phone] 25-Sep-2011 21:54 Impressions 09/25/2011 9:54 PM MASTER CERTIFIED RV TECHNICIAN Low probability VQ scan. FINDINGS: Nonsegmental perfusion [...] Electronically signed by: ?? Annalisa Zepeda MD [phone] ([id number]) 25-Sep-2011 20:56 Narrative 09/25/2011 9:54 PM MASTER CERTIFIED RV TECHNICIAN 25-Sep-2011 17:24:00 ??Exam: NM Lung Scan V/Q Indications: Shortness Of Breath (sob);elevated ddimer;r/o PE ORIGINAL REPORT - 25-Sep-2011 20:56:00 EXAM: Nuclear medicine V/Q scan. INDICATION: Shortness of breath. COMPARISON: Chest x-ray performed on the same day (after ventilation/perfusion imaging). Procedure Note Fanny Médnez M.D. - 02/12/2018 25-Sep-2011 17:24:00 Exam: NM [...] millicurie Electronically signed by: Annalisa Zepeda MD [phone] ([id number]) 25-Sep-2011 20:56 Jose A Corcoran M.D. IMG NM PROCEDURES * Echocardiogram (09/21/2011 2:05 PM MASTER CERTIFIED RV TECHNICIAN) Anatomical Region Laterality Modality Echocardiography 09/21/2011 2:05 PM MASTER CERTIFIED RV TECHNICIAN Historical Provider CV ECHO PROCEDURES * DX Wrist 2 Views (09/21/2011 5:32 AM MASTER CERTIFIED RV TECHNICIAN) Anatomical Region Laterality Modality Radiographic Jamee ging 09/21/2011 5:32 AM MASTER CERTIFIED RV TECHNICIAN Narrative 09/21/2011 9:29 AM MASTER CERTIFIED RV TECHNICIAN 21-Sep-2011 05:32:00 ??Exam: R Wrist 2vw PA/Lat [...] Mild ulnar positive variance. Electronically signed by: Kvng Ramírez MD. [phone] 21-Sep-2011 09:29 Maru OCHOA DIAGNOSTIC IMAGI NG [...] Electronically signed by: ?? Donn Enamorado MD ??[phone] 17-Sep-2011 13:47 ?Eva RUBIO [phone] [id number] 17-Sep-2011 13:47 Procedure Note Jan Enamorado [...] Enamorado MD [phone] 17-Sep-2011 13:47 PAfia RUBIO [phone] 17-Sep-2011 13:47 Ap Retana M.D., M.S. IMG [...] positive variance bilaterally. Electronically signed by: ?? Alli Abdi MD [phone] 20-Aug-2011 11:32 Procedure Note Dionte Abdi M.D. - 02/12/2018 20-Aug-2011 11:23:00 Exam: B Hand 2vw & Wrist 2vw Indications: DJD Finger ORIGINAL REPORT - 20-Aug-2011 11:32:00 Both Hand 2vw & Wrist 2vw: Advanced degenerative arthritis of the 1st CMC joints. Moderate toadvanced degenerative arthritis of the STT joints and several IP joints.Mild ulnar positive variance bilaterally. Electronically signed by: Alli Abdi MD [phone] 20-Aug-2011 11:32 Telly Gaines M.D. IMG DIAGNOSTIC [...] lateral compartments with spurring. There is significant ugiufrxy-if-zamtvn patellofemoral joint disease with trochlear patellar spurs. [...] lateral compartments with spurring. There is significant xpltudnq-qe-mblmaq patellofemoral joint disease with trochlear patellar spurs. [...] Electronically signed by: ?? Aileen Asencio MD [phone] 12-Jun-2009 17:25 Procedure Note Milla Asencio M.D. [...] of 0.5cc of ropivacaine and 0.5cc of Wrllclj36kg/mL was administered. Fluid is noted to track around the tendon withinthe sheath. No complications. Electronically signed by: Aileen Asencio MD [phone] 12-Jun-2009 17:25 Alejandro Verduzco D.D.S., Ph.D. [facility] US PROC EDURES * US Non Vascular [...] No complications. Electronically signed by: ?? Aileen Asencoi MD [phone] 12-Jun-2009 17:25 Procedure Note Milla Asencio M.D. [...] of 0.5cc of ropivacaine and 0.5cc of Cibldkh46sp/mL was administered. Fluid is noted to track around the tendon withinthe sheath. No complications. Electronically signed by: Aileen Asencio MD [phone] 12-Jun-2009 17:25 Alejandro Verduzco D.D.S., Ph.D. IMG US PROC EDURES * XR Foot Right 3 or more views (04/22/2009 9:30 AM CDT) Anatomical Region Laterality Modality Other 04/22/2009 9:30 AM CDT Historical Provider [facility] NON RAD IMAGING PROCEDURES * DX Foot [...] a small calcaneal spur. ? Procedure Note Provider, Historical, Oseas.D. - 04/20/2017 Originally Signed By UNKNOWN, PERSONNEL [...] ??P3,P4.1,D2,M1,U1,L1D Electronically signed by: ?? Sivan Silva MD.[phone] 12-Jul-2008 12:08 Procedure Note Sivan Silva M.B., [...] PROCEDURES * Polysomnography (PSG) (11/20/2007 10:38 PM MASTER CERTIFIED RV TECHNICIAN) 11/20/2007 10:3 8 PM MASTER CERTIFIED RV TECHNICIAN Storm Alejandra M.D. [facility] ORDERAB LES Performing Organization Address City/[facility]/ZIP Co de Phone Number [facility] [place] [address] * Echocardiogram (11/16/2007 12:32 PM MASTER CERTIFIED RV TECHNICIAN) Anatomical Region Laterality Modality Echocardiography 11/16/2007 12:3 2 PM MASTER CERTIFIED RV TECHNICIAN Historical Provider CV ECHO PROCEDURES * PUL Home Overnight Oximetry (11/15/2007 10:45 PM MASTER CERTIFIED RV TECHNICIAN) 11/15/2007 10:4 5 PM MASTER CERTIFIED RV TECHNICIAN Telly Montalvo M.D. PFT ORDERABLES Performing Organization Address City/[facility]/ZIP Co de Phone Number [facility] [place] [address] * [place] Swallow Function and Esophagram with Video (03/14/2007 9:02 AM CDT) Anatomical Region Laterality Modality Gastro Intestinal N/A Radiographic I maging 03/14/2007 9:02 AM CDT Narrative 03/14/2007 10:31 AM CDT 14-Mar-2007 09:02:00 ??Exam: WB-Knhvqtfgw-Xdzbn Study Indications: cough ORIGINAL REPORT - 14-Mar-2007 10:31:00 Air contrast barium esophagram shows a small amount of gastroesophageal reflux in the recumbent position. Esophageal peristalsis is normal. Esophagus otherwise negative. Incidentally noted is a prominent anterior cervical osteophyte at the C4 interspace level which causes an impression on the posterior pharynx. Electronically signed by: ?? Prakash Pitts MD [phone] 14-Mar-2007 10:31 Procedure Note Jean Pitts M.D. - 02/15/2018 14-Mar-2007 09:02:00 Exam: ZE-Bepmhdoav-Tmcwx Study Indications: cough ORIGINAL REPORT - 14-Mar-2007 10:31:00 Air contrast barium esophagram shows a small amount of gastroesophagealreflux in the recumbent position. Esophageal peristalsis is normal.Esophagus otherwise negative. Incidentally noted is a prominent anteriorcervical osteophyte at the C4 interspace level which causes an impressionon the posterior pharynx. Electronically signed by: Prakash Pitts MD [phone] 14-Mar-2007 10:31 Jean Lara M.D. IMG FLUOROSCOPY PRO CEDURES * Pulmonary Function Tests (03/08/2007 2:55 PM CDT) 03/08/2007 2:55 PM CDT Mike Lopez M.D. PFT ORDERABLES Performing Organization Address City/State/[facility] Co de Phone Number [address] * DX Abdomen 1 View (12/21/2006 11:47 AM MASTER CERTIFIED RV TECHNICIAN) Anatomical Region Laterality Modality Abdomen N/A Radiographic Jamee ging 12/21/2006 11:4 7 AM MASTER CERTIFIED RV TECHNICIAN Narrative 12/21/2006 12:56 PM MASTER CERTIFIED RV TECHNICIAN 21-Dec-2006 11:47:00 ??Exam: Abdomen Indications: nausea and [...] Hathaway M.D. 21-Dec-2006 12:56 Rula Mckay APRN, C.N.PHarmony, D.N.P. IMG JONO GNOSTIC IMAGING PROCEDURES * BI [...] of the right periareolar region demonstrates a [id number] complicated cyst with probable internal debris. Both [...] Martinez M.D. - 02/15/2018 20-May-2006 11:16:00 Exam: Mann MG /@Aspiration Indications: ORIGINAL REPORT - 20-May-2006 [...] sonography of the right periareolar region demonstrates [id number] complicated cyst with probable internal debris. Both [...] ?? Electronically signed by: ?? Jorge Adler ??812-Aug-2004 20:39 Procedure Note Ronnie Martines M.D., Ph.D. [...] 439.434 Dia.434 Electronically signed by: Jorge Adler 8-12-Aug-2004 20:39 Mari Collazo APRN.N.Fredrick, D.N.P. IMG MRI PROCEDURES * DX Knee [...] by: Jocelyne Garrison MD [phone] 12-Aug-2004 15:56 Ward Collazo APRNN.PHarmony, D.N.P. IMG JONO GNOSTIC IMAGING PROCEDURES * Pulmonary Function Tests (01/18/2003 4:04 PM MASTER CERTIFIED RV TECHNICIAN) 01/18/2003 4:04 PM MASTER CERTIFIED RV TECHNICIAN Librado Lacy M.D. PFT ORDERABLES Performing Organization Address City/[facility] Co de Phone Number [facility] [place] [address] * Pulmonary Function Tests (01/18/2003 7:21 AM MASTER CERTIFIED RV TECHNICIAN) 01/18/2003 7:21 AM MASTER CERTIFIED RV TECHNICIAN Librado Lacy M.D. PFT ORDERABLES Performing Organization Address [facility] Co de Phone Number [facility] [place] [address] * Cytology (12/06/2001 3:41 PM MASTER CERTIFIED RV TECHNICIAN) Only the most recent of3 resultswithin the time period is included. 12/06/2001 3:41 PM MASTER CERTIFIED RV TECHNICIAN 12/06/2001 3:41 PM MASTER CERTIFIED RV TECHNICIAN Narrative [facility] [place] - 12/06/2001 3:41 PM MASTER CERTIFIED RV TECHNICIAN 06Dec2001 Cytology Gynecological Requested By: ? Ward BuckleyN.P. ? ([id number]) ?? DIAGNOSIS: ?Vaginal Smear ?Satisfactory for evaluation. ?Within Normal Limits. ?[id number] ? Agnieszka Espino, MAYA(ASCP) ?07Dec2001 ? GLK ??[id number]:sbr Procedure Note 02/07/2018 06Dec2001 Cytology Gynecological Requested By: Mari Buckley.N.P.([id number]) DIAGNOSIS: Vaginal Smear Satisfactory for evaluation. Within Normal Limits. 07Dec2001 MAYA Pierce(ASCP) 07Dec2001 GLK 80091:sbr Siómn Lorenzo LAB PATHOLOGY/CYTOLO GY ORDERABLES [facility] [place] [address] * MR Lumbar Spine without IV Contrast (10/24/2001 8:26 AM MASTER CERTIFIED RV TECHNICIAN) Anatomical Region Laterality Modality Lumbar Spine N/A Magnetic Resonan ce 10/24/2001 8:26 AM MASTER CERTIFIED RV TECHNICIAN Narrative 10/24/2001 10:14 AM MASTER CERTIFIED RV TECHNICIAN 24-Oct-2001 08:26:00 ??Exam: MRI LUMBAR Sp Indications: [...] subluxation of L4 on L5. Posterior midline G3rajlooh tear. (RVU 208) Ind: 333.999 Dia.5642 Electronically signed by: Ryan Chow MD. [phone] 24-Oct-2001 10:14 Joaquín Parekh D.O. IMG MRI [...] narrowed. Electronically signed by: Ofelia Henderson MD. [phone] 06-Jul-2001 14:48 Joaquín Parekh D.O. IMG DIAGNOSTIC JAMEE GING PROCEDURES * HX issa Surg Bld Order (12/02/1999 6:40 AM MASTER CERTIFIED RV TECHNICIAN) 12/02/1999 6:40 AM MASTER CERTIFIED RV TECHNICIAN 12/02/1999 7:29 AM MASTER CERTIFIED RV TECHNICIAN Narrative [facility] [place] - 12/02/1999 6:40 AM MASTER CERTIFIED RV TECHNICIAN 02 Dec 1999 ?[id number] ?Ro ?06:40 ?? Std Surg Bld Order: ?ABO/RH ? A POS ?Antibody Screen ?Neg Procedure Note 03/02/2018 02 Dec 1999 [id number] Ro 06:40 Std Surg Bld Order: ABO/RH A POS Antibody Screen Neg Historical Provider LAB HISTORICAL ORDER S [facility] [place] [address] * US Pelvis Transvaginal and Transabdominal (10/24/1999 2:38 PM MASTER CERTIFIED RV TECHNICIAN) Anatomical Region Laterality Modality Pelvis N/A Ultrasound 10/24/1999 2:38 PM MASTER CERTIFIED RV TECHNICIAN Narrative 10/24/1999 3:18 PM MASTER CERTIFIED RV TECHNICIAN 24-Oct-1999 14:38:00 ??Exam: US Pelvis with Transvaginal [...] signed by: ?? [employer] ??Mark Anthony RUBIO. ??[phone] 24-Oct-1999 15:18 ?Hollie Chiang MD [phone] ([id number]) 24-Oct-1999 15:18 Procedure Note Ronaldo Hopson [...] fluid is present within the pelvic cul-de-sac. I-870.708;D-422.3583 Electronically signed by: Willis Hopson MD. [phone] 24-Oct-1999 15:18 Hollie Chiang [phone] ([id number]) 24-Oct-1999 15:18 Mari Collazo APRN.N.PHarmony, PrakashN.P. [facility] PROCEDURES * Dermatopathology (10/29/1995 1:37 PM MASTER CERTIFIED RV TECHNICIAN) 10/29/1995 1:37 PM MASTER CERTIFIED RV TECHNICIAN 10/29/1995 1:37 PM MASTER CERTIFIED RV TECHNICIAN Narrative [facility] [place] - 10/29/1995 1:37 PM MASTER CERTIFIED RV TECHNICIAN [id number] Dermatopathology Primary Undercover Agent: ??TETE Bryant ? ([id number]) Requested By: ? TETE Bryant Procedure Performed By: TETE Bryant ?? ANATOMIC SITE OF TISSUE: LEFT HIP ?? [id number] [id number] ?? DIAGNOSTIC IMPRESSION: ?? compound nevus with erosion ?? [id number] ?Partha Bernal M.D.:ers Procedure Note 02/05/2018 [id number] Dermatopathology Primary Undercover Agent: TETE Bryant([id number]) Requested By: TETE Bryant Procedure Performed By: TETE Bryant ANATOMIC SITE OF TISSUE: LEFT HIP [id number] [id number] DIAGNOSTIC IMPRESSION: compound nevus with erosion [id number] Partha Bernal M.D.:ers Vinay Velarde C.N.P., N.P., R.N. LAB PATH DERM ORDERABLES Performing Organization Address City/State/[facility] Co de Phone Number [facility] [place] [address] [place] [address], [facility] Visit Diagnoses Diagnosis Start Date Atrial Fibrillation [...] 11/24/2017 Monitoring For Therapeutic Drug Therapy 11/24/2017 Garment Sorter (Current) Anticoagulant Treatment 11/24/2017 Atrial Fibrillation Unspecified (HCC) 11/25/2017 Monitoring For Therapeutic Drug Therapy 11/25/2017 Garment Sorter (Current) Anticoagulant Treatment 11/25/2017 Anticoagulant Therapy 11/25/2017 Infection Upper Respiratory 11/30/2017 Acute Reactive Otitis Externa Right Ear 11/30/2017 Cough Unspecified Type 12/02/2017 Asthma Mild Intermittent With Environmental Exposure To Tobacco Smoke 12/02/2017 Cough Unspecified Type 12/23/2017 Fatigue 12/23/2017 Cough Unspecified Type 12/23/2017 Fatigue 12/23/2017 Atrial Fibrillation Unspecified (HCC) 01/06/2018 Monitoring For Therapeutic Drug Therapy 01/06/2018 Detention (Current) Anticoagulant Treatment 01/06/2018 Anticoagulant Therapy 01/06/2018 Monitoring For Therapeutic Drug Therapy 01/07/2018 Detention (Current) Anticoagulant Treatment 01/07/2018 Atrial Fibrillation Unspecified (HCC) 01/07/2018 Anticoagulant Therapy 01/07/2018 Anticoagulant Therapy 01/10/2018 Monitoring For Therapeutic Drug Therapy 01/10/2018 Atrial Fibrillation Unspecified (HCC) 01/10/2018 Garment Sorter (Current) Anticoagulant Treatment 01/10/2018 Anticoagulant Therapy 01/10/2018 Monitoring For Therapeutic Drug Therapy 01/10/2018 Atrial Fibrillation Unspecified (HCC) 01/10/2018 Garment Sorter (Current) Anticoagulant Treatment 01/10/2018 Anticoagulant Therapy 01/10/2018 Monitoring For Therapeutic Drug Therapy 01/10/2018 Atrial Fibrillation Unspecified (HCC) 01/10/2018 Anticoagulant Therapy 01/19/2018 Monitoring For Therapeutic Drug Therapy 01/19/2018 Atrial Fibrillation Unspecified (HCC) 01/19/2018 Garment Sorter (Current) Anticoagulant Treatment 01/19/2018 Anticoagulant Therapy 02/03/2018 Monitoring For Therapeutic Drug Therapy 02/03/2018 Atrial Fibrillation Unspecified (HCC) 02/03/2018 Garment Sorter (Current) Anticoagulant Treatment 02/03/2018 Screening Mammogram Breast Cancer 02/24/2018 Atrial Fibrillation Unspecified (HCC) 03/24/2018 Monitoring For Therapeutic Drug Therapy 03/24/2018 Detention (Current) Anticoagulant Treatment 03/24/2018 Anticoagulant Therapy 03/24/2018 Atrial Fibrillation Unspecified (HCC) 04/14/2018 Atrial Fibrillation Unspecified (HCC) 05/05/2018 Monitoring For Therapeutic Drug Therapy 05/05/2018 Garment Sorter (Current) Anticoagulant Treatment 05/05/2018 Anticoagulant Therapy 05/05/2018 Screening Mammogram Breast Cancer 05/25/2018 Screening Mammogram Breast Cancer 05/25/2018 Atrial Fibrillation Unspecified (HCC) 05/26/2018 Monitoring For Therapeutic Drug Therapy 05/26/2018 Detention (Current) Anticoagulant Treatment 05/26/2018 Anticoagulant Therapy 05/26/2018 Atrial Fibrillation Unspecified (HCC) 06/14/2018 Primary Osteoarthritis Knee Right 06/27/2018 Primary Osteoarthritis Knee Right 06/27/2018 Atrial Fibrillation Unspecified (HCC) 07/07/2018 Monitoring For Therapeutic Drug Therapy 07/07/2018 Detention (Current) Anticoagulant Treatment 07/07/2018 Anticoagulant Therapy 07/07/2018 Atrial Fibrillation Unspecified (HCC) 07/13/2018 Atrial Fibrillation Unspecified (HCC) 07/13/2018 Atrial Fibrillation Unspecified (HCC) 07/14/2018 Sleep Apnea 07/25/2018 Atrial Fibrillation Unspecified (HCC) 07/25/2018 Maintenance Health Adult 07/25/2018 Atrial Fibrillation Unspecified (HCC) 07/25/2018 Atrial Fibrillation Unspecified (HCC) 07/28/2018 Monitoring For Therapeutic Drug Therapy 07/28/2018 Detention (Current) Anticoagulant Treatment 07/28/2018 Anticoagulant Therapy 07/28/2018 Anticoagulant Therapy 08/01/2018 Atrial Fibrillation Unspecified (HCC) 08/01/2018 Garment Sorter (Current) Anticoagulant Treatment 08/01/2018 Anticoagulant Therapy 08/01/2018 Monitoring For Therapeutic Drug Therapy 08/01/2018 Atrial Fibrillation Unspecified (HCC) 08/01/2018 Atrial Fibrillation Unspecified (HCC) 08/03/2018 Need Vaccine Immunization Influenza 08/25/2018 Apnea Sleep Obstructive 09/14/2018 Snoring 09/14/2018 Fatigue 09/14/2018 Sleep Disorder 09/14/2018 Thrombosis Deep Vein Acute Calf Right (HCC) 09/15/2018 Monitoring For Therapeutic Drug Therapy 09/15/2018 Garment Sorter (Current) Anticoagulant Treatment 09/15/2018 Thrombosis Deep Vein Acute Calf Right (HCC) 09/15/2018 Detention (Current) Anticoagulant Treatment 09/15/2018 Monitoring For Therapeutic Drug Therapy 09/15/2018 Apnea Sleep Obstructive 09/15/2018 Atrial Fibrillation Unspecified (HCC) 09/15/2018 Monitoring For Therapeutic Drug Therapy 09/15/2018 Detention (Current) Anticoagulant Treatment 09/15/2018 Anticoagulant Therapy 09/15/2018 Thrombosis Deep Vein Acute Calf Right (HCC) 09/15/2018 Apnea Sleep Obstructive 09/16/2018 Insomnia 09/16/2018 Fatigue 09/16/2018 Restless Leg Syndrome 09/16/2018 Atrial Fibrillation Unspecified (HCC) 09/19/2018 Monitoring For Therapeutic Drug Therapy 09/19/2018 Detention (Current) Anticoagulant Treatment 09/19/2018 Anticoagulant Therapy 09/19/2018 Thrombosis Deep Vein Acute Calf Right (HCC) 09/19/2018 Atrial Fibrillation Unspecified (HCC) 09/22/2018 Monitoring For Therapeutic Drug Therapy 09/22/2018 Garment Sorter (Current) Anticoagulant Treatment 09/22/2018 Anticoagulant Therapy 09/22/2018 Thrombosis Deep Vein Acute Calf Right (HCC) 09/22/2018 Thrombosis Deep Vein Acute Calf Right (HCC) 09/28/2018 Monitoring For Therapeutic Drug Therapy 09/28/2018 Detention (Current) Anticoagulant Treatment 09/28/2018 Garment Sorter (Current) Anticoagulant Treatment 10/07/2018 Monitoring For Therapeutic Drug Therapy 10/07/2018 Thrombosis Deep Vein Acute Calf Right (HCC) 10/07/2018 Atrial Fibrillation Unspecified (HCC) 10/20/2018 Monitoring For Therapeutic Drug Therapy 10/20/2018 Detention (Current) Anticoagulant Treatment 10/20/2018 Anticoagulant Therapy 10/20/2018 Thrombosis Deep Vein Acute Calf Right (HCC) 10/20/2018 Thrombosis Deep Vein Acute Calf Right (HCC) 10/27/2018 Monitoring For Therapeutic Drug Therapy 10/27/2018 Detention (Current) Anticoagulant Treatment 10/27/2018 Atrial Fibrillation Unspecified (HCC) 10/31/2018 Atrial Fibrillation Unspecified (HCC) 10/31/2018 Atrial Fibrillation Unspecified (HCC) 11/03/2018 Monitoring For Therapeutic Drug Therapy 11/03/2018 Garment Sorter (Current) Anticoagulant Treatment 11/03/2018 Anticoagulant Therapy 11/03/2018 Thrombosis Deep Vein Acute Calf Right (HCC) 11/03/2018 Garment Sorter (Current) Anticoagulant Treatment 11/03/2018 Monitoring For Therapeutic Drug Therapy 11/03/2018 Thrombosis Deep Vein Acute Calf Right (HCC) 11/03/2018 Thrombosis Deep Vein Acute Calf Right (HCC) 11/17/2018 Monitoring For Therapeutic Drug Therapy 11/17/2018 Detention (Current) Anticoagulant Treatment 11/17/2018 Thrombosis Deep Vein Acute Calf Right (HCC) 12/01/2018 Monitoring For Therapeutic Drug Therapy 12/01/2018 Detention (Current) Anticoagulant Treatment 12/01/2018 Primary Osteoarthritis Knee Right 12/02/2018 Rotator Cuff Disorder Right 12/02/2018 Primary Osteoarthritis Knee Right 12/02/2018 Rotator Cuff Disorder Right 12/02/2018 Preoperative Exam 12/02/2018 Sleep Apnea 12/02/2018 Maintenance Health Adult 12/02/2018 Hypertensive Heart Disease With Heart Failure (HCC) 12/02/2018 Hyperlipidemia 12/02/2018 Garment Sorter (Current) Anticoagulant Treatment 12/02/2018 Detention (Current) Anticoagulant Treatment 12/21/2018 Monitoring For Therapeutic Drug Therapy 12/21/2018 Thrombosis Deep Vein Acute Calf Right (HCC) 12/21/2018 Rotator Cuff Disorder Right 12/21/2018 Pain Shoulder Right 12/21/2018 Primary Osteoarthritis Shoulder Right 12/21/2018 Tear Rotator Cuff Initial Right 12/21/2018 Thrombosis Deep Vein Acute Calf Right (HCC) 01/05/2019 Monitoring For Therapeutic Drug Therapy 01/05/2019 Detention (Current) Anticoagulant Treatment 01/05/2019 Atrial Fibrillation Unspecified (HCC) 02/16/2019 Monitoring For Therapeutic Drug Therapy 02/16/2019 Garment Sorter (Current) Anticoagulant Treatment 02/16/2019 Anticoagulant Therapy 02/16/2019 Thrombosis Deep Vein Acute Calf Right (HCC) 02/16/2019 Atrial Fibrillation Unspecified (HCC) 02/20/2019 Other Heart Disorders In Diseases Classified Elsewhere 02/20/2019 Pain Chest 02/20/2019 Atrial Fibrillation Paroxysmal (HCC) 02/20/2019 Primary Osteoarthritis Knee Right 02/20/2019 Thrombosis Deep Vein Acute Calf Right (HCC) 02/23/2019 Monitoring For Therapeutic Drug Therapy 02/23/2019 Detention (Current) Anticoagulant Treatment 02/23/2019 Thrombosis Deep Vein Acute Calf Right (HCC) 03/09/2019 Monitoring For Therapeutic Drug Therapy 03/09/2019 Garment Sorter (Current) Anticoagulant Treatment 03/09/2019 Atrial Fibrillation Unspecified (HCC) 03/15/2019 Pain Chest 03/15/2019 Pain Chest 03/28/2019 Atrial Fibrillation Paroxysmal (HCC) 03/28/2019 Other Heart Disorders In Diseases Classified Elsewhere 03/28/2019 Pain Chest 03/28/2019 Primary Osteoarthritis Knee Right 04/17/2019 Atrial Fibrillation Unspecified (HCC) 04/27/2019 Monitoring For Therapeutic Drug Therapy 04/27/2019 Garment Sorter (Current) Anticoagulant Treatment 04/27/2019 Anticoagulant Therapy 04/27/2019 Thrombosis Deep Vein Acute Calf Right (HCC) 04/27/2019 Hyperlipidemia 05/11/2019 Thrombosis Deep Vein Acute Calf Right (HCC) 05/11/2019 Monitoring For Therapeutic Drug Therapy 05/11/2019 Detention (Current) Anticoagulant Treatment 05/11/2019 Pain Breast 05/15/2019 Sleep Apnea 05/15/2019 Pain Breast 05/16/2019 Pain Breast 05/16/2019 Atrial Fibrillation Unspecified (HCC) 05/25/2019 Monitoring For Therapeutic Drug Therapy 05/25/2019 Detention (Current) Anticoagulant Treatment 05/25/2019 Anticoagulant Therapy 05/25/2019 Thrombosis Deep Vein Acute Calf Right (HCC) 05/25/2019 Apnea Sleep Obstructive 06/08/2019 Thrombosis Deep Vein Acute Calf Right (HCC) 06/15/2019 Monitoring For Therapeutic Drug Therapy 06/15/2019 Garment Sorter (Current) Anticoagulant Treatment 06/15/2019 Primary Osteoarthritis Knee Right 07/03/2019 Primary Osteoarthritis Knee Right 07/03/2019 Viral Syndrome 07/03/2019 Thrombosis Deep Vein Acute Calf Right (HCC) 07/03/2019 Sleep Apnea 07/03/2019 Primary Osteoarthritis Knee Right 07/03/2019 Metabolizer CY Poor 07/03/2019 Metabolizer CYP2D6 Rapid 07/03/2019 Maintenance Health Adult 07/03/2019 Detention (Current) Anticoagulant Treatment 07/03/2019 Hypertensive Heart Disease With Heart Failure (HCC) 07/03/2019 Hyperlipidemia 07/03/2019 Major Depressive Disorder, Recurrent, Unspecified (HCC) 07/03/2019 Primary Osteoarthritis Knee Right 07/12/2019 Atrial Fibrillation Paroxysmal (HCC) 07/12/2019 Primary Osteoarthritis Knee Right 07/12/2019 Hyperlipidemia 07/12/2019 Primary Osteoarthritis Knee Right 07/12/2019 Thrombosis Deep Vein Acute Calf Right (HCC) 08/03/2019 Monitoring For Therapeutic Drug Therapy 08/03/2019 Detention (Current) Anticoagulant Treatment 08/03/2019 Atrial Fibrillation Paroxysmal (HCC) 09/07/2019 Thrombosis Deep Vein Acute Calf Right (HCC) 09/07/2019 Garment Sorter (Current) Anticoagulant Treatment 09/07/2019 Monitoring For Therapeutic Drug Therapy 09/07/2019 Thrombosis Deep Vein Acute Calf Right (HCC) 09/07/2019 Monitoring For Therapeutic Drug Therapy 09/07/2019 Detention (Current) Anticoagulant Treatment 09/07/2019 Thrombosis Deep Vein Acute Calf Right (HCC) 10/19/2019 Monitoring For Therapeutic Drug Therapy 10/19/2019 Garment Sorter (Current) Anticoagulant Treatment 10/19/2019 Atrial Fibrillation Paroxysmal (HCC) 10/19/2019 Thrombosis Deep Vein Acute Calf Right (HCC) 10/27/2019 Monitoring For Therapeutic Drug Therapy 10/27/2019 Detention (Current) Anticoagulant Treatment 10/27/2019 Atrial Fibrillation Paroxysmal (HCC) 10/27/2019 Thrombosis Deep Vein Acute Calf Right (HCC) 11/09/2019 Monitoring For Therapeutic Drug Therapy 11/09/2019 Detention (Current) Anticoagulant Treatment 11/09/2019 Atrial Fibrillation Paroxysmal (HCC) 11/09/2019 Thrombosis Deep Vein Acute Calf Right (HCC) 11/13/2019 Monitoring For Therapeutic Drug Therapy 11/13/2019 Garment Sorter (Current) Anticoagulant Treatment 11/13/2019 Atrial Fibrillation Paroxysmal (HCC) 11/13/2019 Thrombosis Deep Vein Acute Calf Right (HCC) 11/13/2019 Monitoring For Therapeutic Drug Therapy 11/13/2019 Garment Sorter (Current) Anticoagulant Treatment 11/13/2019 Atrial Fibrillation Paroxysmal (HCC) 11/13/2019 Dysuria 11/20/2019 Urgency Urinary 11/20/2019 Neuropathy 11/20/2019 Thrombosis Deep Vein Acute Calf Right (HCC) 11/23/2019 Monitoring For Therapeutic Drug Therapy 11/23/2019 Detention (Current) Anticoagulant Treatment 11/23/2019 Atrial Fibrillation Paroxysmal (HCC) 11/23/2019 Thrombosis Deep Vein Acute Calf Right (HCC) 11/30/2019 Monitoring For Therapeutic Drug Therapy 11/30/2019 Detention (Current) Anticoagulant Treatment 11/30/2019 Atrial Fibrillation Paroxysmal (HCC) 11/30/2019 Thrombosis Deep Vein Acute Calf Right (HCC) 12/21/2019 Monitoring For Therapeutic Drug Therapy 12/21/2019 Detention (Current) Anticoagulant Treatment 12/21/2019 Atrial Fibrillation Paroxysmal (HCC) 12/21/2019 Thrombosis Deep Vein Acute Calf Right (HCC) 01/11/2020 Monitoring For Therapeutic Drug Therapy 01/11/2020 Garment Sorter (Current) Anticoagulant Treatment 01/11/2020 Atrial Fibrillation Paroxysmal (HCC) 01/11/2020 Atrial Fibrillation Paroxysmal (HCC) 03/05/2020 Garment Sorter (Current) Anticoagulant Treatment 03/05/2020 Monitoring For Therapeutic Drug Therapy 03/05/2020 Thrombosis Deep Vein Acute Calf Right (HCC) 03/05/2020 Atrial Fibrillation Unspecified (HCC) 03/30/2020 Atrial Fibrillation Unspecified (HCC) 04/05/2020 Atrial Fibrillation Paroxysmal (HCC) 04/05/2020 Nightmare Disorder 04/05/2020 Atrial Fibrillation Unspecified (HCC) 04/05/2020 Atrial Fibrillation Unspecified (HCC) 04/05/2020 Thrombosis Deep Vein Acute Calf Right (HCC) 05/01/2020 Monitoring For Therapeutic Drug Therapy 05/01/2020 Garment Sorter (Current) Anticoagulant Treatment 05/01/2020 Atrial Fibrillation Paroxysmal (HCC) 05/01/2020 Screening Mammogram Breast Cancer 05/02/2020 Thrombosis Deep Vein Acute Calf Right (HCC) 06/26/2020 Monitoring For Therapeutic Drug Therapy 06/26/2020 Garment Sorter (Current) Anticoagulant Treatment 06/26/2020 Atrial Fibrillation Paroxysmal (HCC) 06/26/2020 Screening Cancer Colon 07/01/2020 Screening Cancer Colon 07/03/2020 Screening Mammogram Breast Cancer 07/03/2020 Thrombosis Deep Vein Acute Calf Right (HCC) 07/25/2020 Monitoring For Therapeutic Drug Therapy 07/25/2020 Detention (Current) Anticoagulant Treatment 07/25/2020 Atrial Fibrillation Paroxysmal (HCC) 07/25/2020 Thrombosis Deep Vein Acute Calf Right (HCC) 07/30/2020 Monitoring For Therapeutic Drug Therapy 07/30/2020 Detention (Current) Anticoagulant Treatment 07/30/2020 Atrial Fibrillation Paroxysmal (HCC) 07/30/2020 Vaginitis 08/07/2020 Lesion Vulva 08/07/2020 Thrombosis Deep Vein Acute Calf Right (HCC) 08/13/2020 Monitoring For Therapeutic Drug Therapy 08/13/2020 Garment Sorter (Current) Anticoagulant Treatment 08/13/2020 Atrial Fibrillation Paroxysmal (HCC) 08/13/2020 Infection Upper Respiratory 08/20/2020 Cough Unspecified Type 08/20/2020 Thrombosis Deep Vein Acute Calf Right (HCC) 08/20/2020 Monitoring For Therapeutic Drug Therapy 08/20/2020 Detention (Current) Anticoagulant Treatment 08/20/2020 Atrial Fibrillation Paroxysmal (HCC) 08/20/2020 Cough Unspecified Type 08/21/2020 Thrombosis Deep Vein Acute Calf Right (HCC) 08/23/2020 Monitoring For Therapeutic Drug Therapy 08/23/2020 Detention (Current) Anticoagulant Treatment 08/23/2020 Atrial Fibrillation Paroxysmal (HCC) 08/23/2020 Cough Unspecified Type 08/29/2020 Thrombosis Deep Vein Acute Calf Right (HCC) 08/29/2020 Monitoring For Therapeutic Drug Therapy 08/29/2020 Garment Sorter (Current) Anticoagulant Treatment 08/29/2020 Atrial Fibrillation Paroxysmal (HCC) 08/29/2020 Cough Unspecified Type 08/30/2020 Hoarseness 08/30/2020 COVID-19 Infection 09/02/2020 Atrial Fibrillation Paroxysmal (HCC) 09/02/2020 Garment Sorter (Current) Anticoagulant Treatment 09/02/2020 Monitoring For Therapeutic Drug Therapy 09/02/2020 Thrombosis Deep Vein Acute Calf Right (HCC) 09/02/2020 COVID-19 Infection 09/03/2020 COVID-19 Infection 09/04/2020 COVID-19 Infection 09/05/2020 COVID-19 Infection 09/05/2020 COVID-19 Infection 09/06/2020 COVID-19 Infection 09/07/2020 Garment Sorter (Current) Anticoagulant Treatment 09/09/2020 COVID-19 Infection 09/09/2020 Thrombosis Deep Vein Acute Calf Right (HCC) 09/09/2020 Atrial Fibrillation Paroxysmal (HCC) 09/09/2020 Monitoring For Therapeutic Drug Therapy 09/09/2020 Garment Sorter (Current) Anticoagulant Treatment 09/09/2020 COVID-19 Infection 09/09/2020 Pneumonia Due To COVID-19 09/08/2020 Dehydration 09/08/2020 Garment Sorter (Current) Anticoagulant Treatment 09/08/2020 Atrial Fibrillation Paroxysmal (HCC) 09/08/2020 Major Depressive Disorder, Recurrent, Unspecified (HCC) 09/08/2020 Thrombosis Deep Vein Acute Calf Right (HCC) 09/08/2020 COVID-19 Infection 09/08/2020 Monitoring For Therapeutic Drug Therapy 09/08/2020 COVID-19 Infection 09/10/2020 Atrial Fibrillation Paroxysmal (HCC) 09/11/2020 Detention (Current) Anticoagulant Treatment 09/11/2020 Monitoring For Therapeutic Drug Therapy 09/11/2020 Thrombosis Deep Vein Acute Calf Right (HCC) 09/11/2020 COVID-19 Infection 09/11/2020 Viral Syndrome 09/11/2020 Anemia 09/11/2020 Pneumonia Due To COVID-19 09/11/2020 Atrial Fibrillation Paroxysmal (HCC) 09/12/2020 Detention (Current) Anticoagulant Treatment 09/12/2020 Monitoring For Therapeutic Drug Therapy 09/12/2020 Thrombosis Deep Vein Acute Calf Right (HCC) 09/12/2020 Atrial Fibrillation Paroxysmal (HCC) 09/12/2020 Garment Sorter (Current) Anticoagulant Treatment 09/12/2020 Monitoring For Therapeutic Drug Therapy 09/12/2020 Thrombosis Deep Vein Acute Calf Right (HCC) 09/12/2020 Viral Syndrome 09/12/2020 Anemia 09/12/2020 Pneumonia Due To COVID-19 09/12/2020 Detention (Current) Anticoagulant Treatment 09/13/2020 COVID-19 Infection 09/13/2020 Garment Sorter (Current) Anticoagulant Treatment 09/13/2020 COVID-19 Infection 09/13/2020 COVID-19 Infection 09/14/2020 Atrial Fibrillation Paroxysmal (HCC) 09/16/2020 Detention (Current) Anticoagulant Treatment 09/16/2020 Monitoring For Therapeutic Drug Therapy 09/16/2020 Thrombosis Deep Vein Acute Calf Right (HCC) 09/16/2020 Atrial Fibrillation Paroxysmal (HCC) 09/23/2020 Garment Sorter (Current) Anticoagulant Treatment 09/23/2020 Monitoring For Therapeutic Drug Therapy 09/23/2020 Thrombosis Deep Vein Acute Calf Right (HCC) 09/23/2020 Cough Unspecified Type 09/25/2020 Monitoring For Therapeutic Drug Therapy 09/30/2020 Detention (Current) Anticoagulant Treatment 09/30/2020 Atrial Fibrillation Paroxysmal (HCC) 09/30/2020 Thrombosis Deep Vein Acute Calf Right (HCC) 09/30/2020 COVID-19 Infection 10/04/2020 Atrial Fibrillation Paroxysmal (HCC) 10/07/2020 Garment Sorter (Current) Anticoagulant Treatment 10/07/2020 Monitoring For Therapeutic [...] 10/15/2020 Monitoring For Therapeutic Drug Therapy 10/15/2020 Garment Sorter (Current) Anticoagulant Treatment 10/15/2020 Atrial Fibrillation Paroxysmal (HCC) 10/15/2020 Thrombosis Deep Vein Acute Calf Right (HCC) 10/15/2020 Hernia Hiatal 10/21/2020 Atrial Fibrillation Paroxysmal (HCC) 10/26/2020 Monitoring For Therapeutic Drug Therapy 10/29/2020 Garment Sorter (Current) Anticoagulant Treatment 10/29/2020 Atrial Fibrillation Paroxysmal (HCC) 10/29/2020 Thrombosis Deep Vein Acute Calf Right (HCC) 10/29/2020 Detention (Current) Anticoagulant Treatment 11/26/2020 Atrial Fibrillation Paroxysmal (HCC) 11/26/2020 Monitoring For Therapeutic Drug Therapy 11/26/2020 Detention (Current) Anticoagulant Treatment 11/26/2020 Atrial Fibrillation Paroxysmal (HCC) 11/26/2020 Thrombosis Deep Vein Acute Calf Right (HCC) 11/26/2020 Cough Unspecified Type 11/26/2020 Dyspnea 11/26/2020 Gastroesophageal Reflux Disease Without Esophagitis 11/27/2020 Dyspnea 11/27/2020 Dyspnea 11/27/2020 Dyspnea 12/03/2020 Sleep Apnea 12/03/2020 Primary Osteoarthritis Knee Right 12/05/2020 Monitoring For Therapeutic Drug Therapy 12/12/2020 Garment Sorter (Current) Anticoagulant Treatment 12/12/2020 Atrial Fibrillation Paroxysmal (HCC) 12/12/2020 Thrombosis Deep Vein Acute Calf Right (HCC) 12/12/2020 Thrombosis Deep Vein Acute Calf Right (HCC) 12/19/2020 Monitoring For Therapeutic Drug Therapy 12/19/2020 Garment Sorter (Current) Anticoagulant Treatment 12/19/2020 Atrial Fibrillation Paroxysmal (HCC) 12/19/2020 Monitoring For Therapeutic Drug Therapy 02/20/2021 Garment Sorter (Current) Anticoagulant Treatment 02/20/2021 Atrial Fibrillation Paroxysmal (HCC) 02/20/2021 Thrombosis Deep Vein Acute Calf Right (HCC) 02/20/2021 Atrial Fibrillation Paroxysmal (HCC) 02/24/2021 Atrial Fibrillation Paroxysmal (HCC) 02/24/2021 Atrial Fibrillation Paroxysmal (HCC) 02/25/2021 Sleep Apnea 02/26/2021 Inadequate Sleep Hygiene 02/26/2021 Lesion Vagina 03/31/2021 Hyperlipidemia 04/17/2021 Monitoring For Therapeutic Drug Therapy 04/17/2021 Garment Sorter (Current) Anticoagulant Treatment 04/17/2021 Atrial Fibrillation Paroxysmal (HCC) 04/17/2021 Thrombosis Deep Vein Acute Calf Right (HCC) 04/17/2021 Restless Leg Syndrome 04/22/2021 Primary Osteoarthritis Knee Right 06/03/2021 Atrial Fibrillation Paroxysmal (HCC) 06/12/2021 Atrial Fibrillation Paroxysmal (HCC) 06/12/2021 Detention (Current) Anticoagulant Treatment 06/12/2021 Monitoring For Therapeutic Drug Therapy 06/12/2021 Thrombosis Deep Vein Acute Calf Right (HCC) 06/12/2021 Atrial Fibrillation Paroxysmal (HCC) 06/12/2021 Garment Sorter (Current) Anticoagulant Treatment 06/12/2021 Monitoring For Therapeutic Drug Therapy 06/12/2021 Thrombosis Deep Vein Acute Calf Right (HCC) 06/12/2021 Thrombosis Deep Vein Acute Calf Right (HCC) 06/16/2021 Monitoring For Therapeutic Drug Therapy 06/16/2021 Detention (Current) Anticoagulant Treatment 06/16/2021 Atrial Fibrillation Paroxysmal (HCC) 06/16/2021 Atrial Fibrillation Paroxysmal (HCC) 06/17/2021 Detention (Current) Anticoagulant Treatment 06/17/2021 Monitoring For Therapeutic Drug Therapy 06/17/2021 Thrombosis Deep Vein Acute Calf Right (HCC) 06/17/2021 Atrial Fibrillation Paroxysmal (HCC) 06/17/2021 Detention (Current) Anticoagulant Treatment 06/17/2021 Monitoring For Therapeutic [...] Covid-19) 06/25/2021 Atrial Fibrillation Paroxysmal (HCC) 06/27/2021 Garment Sorter (Current) Anticoagulant Treatment 06/27/2021 Monitoring For Therapeutic Drug Therapy 06/27/2021 Thrombosis Deep Vein Acute Calf Right (HCC) 06/27/2021 Atrial Fibrillation Paroxysmal (HCC) 06/27/2021 Garment Sorter (Current) Anticoagulant Treatment 06/27/2021 Monitoring For Therapeutic Drug Therapy 06/27/2021 Thrombosis Deep Vein Acute Calf Right (HCC) 06/27/2021 Screening Mammogram Breast Cancer 07/08/2021 Dense Breasts, Unspecified 07/10/2021 Dense Breasts, Unspecified 07/14/2021 Atrial Fibrillation Paroxysmal (HCC) 07/25/2021 Garment Sorter (Current) Anticoagulant Treatment 07/25/2021 Monitoring For Therapeutic Drug Therapy 07/25/2021 Thrombosis Deep Vein Acute Calf Right (HCC) 07/25/2021 Atrial Fibrillation Paroxysmal (HCC) 07/28/2021 Garment Sorter (Current) Anticoagulant Treatment 07/28/2021 Monitoring For Therapeutic Drug Therapy 07/28/2021 Thrombosis Deep Vein Acute Calf Right (HCC) 07/28/2021 Atrial Fibrillation Paroxysmal (HCC) 08/01/2021 Atrial Fibrillation Paroxysmal (HCC) 08/04/2021 Monitoring For Therapeutic Drug Therapy 08/05/2021 Atrial Fibrillation Paroxysmal (HCC) 08/05/2021 Garment Sorter (Current) Anticoagulant Treatment 08/05/2021 Monitoring For Therapeutic Drug Therapy 08/05/2021 Thrombosis Deep Vein Acute Calf Right (HCC) 08/05/2021 Hypertensive Heart Disease With Heart Failure (HCC) 08/08/2021 Atrial Fibrillation Paroxysmal (HCC) 08/18/2021 Detention (Current) Anticoagulant Treatment 08/18/2021 Monitoring For Therapeutic Drug Therapy 08/18/2021 Thrombosis Deep Vein Acute Calf Right (HCC) 08/18/2021 Atrial Fibrillation Paroxysmal (HCC) 08/18/2021 Detention (Current) Anticoagulant Treatment 08/18/2021 Monitoring For Therapeutic Drug Therapy 08/18/2021 Thrombosis Deep Vein Acute Calf Right (HCC) 08/18/2021 Atrial Fibrillation Paroxysmal (HCC) 09/08/2021 Atrial Fibrillation Paroxysmal (HCC) 09/08/2021 Garment Sorter (Current) Anticoagulant Treatment 09/08/2021 Monitoring For Therapeutic Drug Therapy 09/08/2021 Thrombosis Deep Vein Acute Calf Right (HCC) 09/08/2021 Atrial Fibrillation Paroxysmal (HCC) 09/08/2021 Garment Sorter (Current) Anticoagulant Treatment 09/08/2021 Monitoring For Therapeutic Drug Therapy 09/08/2021 Thrombosis Deep Vein Acute Calf Right (HCC) 09/08/2021 Atrial Fibrillation Paroxysmal (HCC) 09/08/2021 Monitoring For Therapeutic Drug Therapy 09/08/2021 Thrombosis Deep Vein Acute Calf Right (HCC) 09/09/2021 Monitoring For Therapeutic Drug Therapy 09/09/2021 Garment Sorter (Current) Anticoagulant Treatment 09/09/2021 Atrial Fibrillation Paroxysmal (HCC) 09/09/2021 Thrombosis Deep Vein Personal History 09/16/2021 Major Depressive Disorder, Recurrent, Unspecified (HCC) 09/16/2021 Hyperlipidemia 09/16/2021 Hypertension Essential Primary 09/16/2021 Maintenance Health Adult 09/16/2021 Garment Sorter (Current) Anticoagulant Treatment 09/16/2021 Restless Leg Syndrome 09/16/2021 Personal History Of Infectious And Parasitic Disease (COVID-19) 09/16/2021 Metabolizer CYP2D6 Rapid 09/16/2021 Gastroesophageal Reflux Disease Without Esophagitis 09/16/2021 Atrial Fibrillation Paroxysmal (HCC) 09/16/2021 Asthma Mild Intermittent (HCC) 09/16/2021 Thrombosis Deep Vein Acute Calf Right (HCC) 09/16/2021 Monitoring For Therapeutic Drug Therapy 09/16/2021 Atrial Fibrillation Paroxysmal (HCC) 09/20/2021 Atrial Fibrillation Paroxysmal (HCC) 11/04/2021 Detention (Current) Anticoagulant Treatment 11/04/2021 Monitoring For Therapeutic Drug Therapy 11/04/2021 Thrombosis Deep Vein Acute Calf Right (HCC) 11/04/2021 Thrombosis Deep Vein Personal History 11/04/2021 Atrial Fibrillation Paroxysmal (HCC) 11/18/2021 Garment Sorter (Current) Anticoagulant Treatment 11/18/2021 Monitoring For Therapeutic Drug Therapy 11/18/2021 Thrombosis Deep Vein Acute Calf Right (HCC) 11/18/2021 Thrombosis Deep Vein Personal History 11/18/2021 Atrial Fibrillation Paroxysmal (HCC) 11/21/2021 Detention (Current) Anticoagulant Treatment 11/21/2021 Monitoring For Therapeutic Drug Therapy 11/21/2021 Thrombosis Deep Vein Acute Calf Right (HCC) 11/21/2021 Thrombosis Deep Vein Personal History 11/21/2021 Atrial Fibrillation Paroxysmal (HCC) 12/02/2021 Detention (Current) Anticoagulant Treatment 12/02/2021 Monitoring For Therapeutic Drug Therapy 12/02/2021 Thrombosis Deep Vein Acute Calf Right (HCC) 12/02/2021 Thrombosis Deep Vein Personal History 12/02/2021 Atrial Fibrillation Paroxysmal (HCC) 12/03/2021 Thrombosis Deep Vein Personal History 12/03/2021 Monitoring For Therapeutic Drug Therapy 12/03/2021 Detention (Current) Anticoagulant Treatment 12/03/2021 Atrial Fibrillation Paroxysmal (HCC) 12/16/2021 Garment Sorter (Current) Anticoagulant Treatment 12/16/2021 Monitoring For Therapeutic Drug Therapy 12/16/2021 Thrombosis Deep Vein Acute Calf Right (HCC) 12/16/2021 Thrombosis Deep Vein Personal History 12/16/2021 Atrial Fibrillation Paroxysmal (HCC) 12/22/2021 Garment Sorter (Current) Anticoagulant Treatment 12/22/2021 Monitoring For Therapeutic Drug Therapy 12/22/2021 Thrombosis Deep Vein Personal History 12/22/2021 Atrial Fibrillation Paroxysmal (HCC) 12/25/2021 Detention (Current) Anticoagulant Treatment 12/25/2021 Monitoring For Therapeutic Drug Therapy 12/25/2021 Thrombosis Deep Vein Personal History 12/25/2021 Atrial Fibrillation Paroxysmal (HCC) 12/29/2021 Detention (Current) Anticoagulant Treatment 12/29/2021 Monitoring For Therapeutic Drug Therapy 12/29/2021 Thrombosis Deep Vein Personal History 12/29/2021 Atrial Fibrillation Paroxysmal (HCC) 12/29/2021 Garment Sorter (Current) Anticoagulant Treatment 12/29/2021 Monitoring For Therapeutic Drug Therapy 12/29/2021 Thrombosis Deep Vein Personal History 12/29/2021 Atrial Fibrillation Paroxysmal (HCC) 12/30/2021 Garment Sorter (Current) Anticoagulant Treatment 12/30/2021 Monitoring For Therapeutic Drug Therapy 12/30/2021 Thrombosis Deep Vein Personal History 12/30/2021 Atrial Fibrillation Paroxysmal (HCC) 01/05/2022 Garment Sorter (Current) Anticoagulant Treatment 01/05/2022 Monitoring For Therapeutic Drug Therapy 01/05/2022 Thrombosis Deep Vein Personal History 01/05/2022 Atrial Fibrillation Paroxysmal (HCC) 01/08/2022 Garment Sorter (Current) Anticoagulant Treatment 01/08/2022 Monitoring For Therapeutic Drug Therapy 01/08/2022 Thrombosis Deep Vein Personal History 01/08/2022 Atrial Fibrillation Paroxysmal (HCC) 01/08/2022 Detention (Current) Anticoagulant Treatment 01/08/2022 Monitoring For Therapeutic Drug Therapy 01/08/2022 Thrombosis Deep Vein Personal History 01/08/2022 Atrial Fibrillation Paroxysmal (HCC) 01/12/2022 Garment Sorter (Current) Anticoagulant Treatment 01/12/2022 Monitoring For Therapeutic Drug Therapy 01/12/2022 Thrombosis Deep Vein Personal History 01/12/2022 Atrial Fibrillation Paroxysmal (HCC) 01/19/2022 Garment Sorter (Current) Anticoagulant Treatment 01/19/2022 Monitoring For Therapeutic Drug Therapy 01/19/2022 Thrombosis Deep Vein Personal History 01/19/2022 Hyperlipidemia 01/20/2022 Atrial Fibrillation Paroxysmal (HCC) 01/26/2022 Garment Sorter (Current) Anticoagulant Treatment 01/26/2022 Monitoring For Therapeutic Drug Therapy 01/26/2022 Thrombosis Deep Vein Personal History 01/26/2022 Atrial Fibrillation Paroxysmal (HCC) 02/02/2022 Detention (Current) Anticoagulant Treatment 02/02/2022 Monitoring For Therapeutic Drug Therapy 02/02/2022 Thrombosis Deep Vein Personal History 02/02/2022 Atrial Fibrillation Paroxysmal (HCC) 02/09/2022 Garment Sorter (Current) Anticoagulant Treatment 02/09/2022 Monitoring For Therapeutic Drug Therapy 02/09/2022 Thrombosis Deep Vein Personal History 02/09/2022 Atrial Fibrillation Paroxysmal (HCC) 02/16/2022 Detention (Current) Anticoagulant Treatment 02/16/2022 Monitoring For Therapeutic Drug Therapy 02/16/2022 Thrombosis Deep Vein Personal History 02/16/2022 Primary Osteoarthritis Knee Right 02/19/2022 Polyp Colon 02/20/2022 Atrial Fibrillation Paroxysmal (HCC) 02/23/2022 Detention (Current) Anticoagulant Treatment 02/23/2022 Monitoring For Therapeutic [...] Acute 03/22/2022 Atrial Fibrillation Paroxysmal (HCC) 03/23/2022 Garment Sorter (Current) Anticoagulant Treatment 03/23/2022 Monitoring For Therapeutic Drug Therapy 03/23/2022 Thrombosis Deep Vein Personal History 03/23/2022 Hyperlipidemia 03/26/2022 Viral Syndrome 03/26/2022 Atrial Fibrillation Paroxysmal (HCC) 03/26/2022 Garment Sorter (Current) Anticoagulant Treatment 03/26/2022 Monitoring For Therapeutic Drug Therapy 03/26/2022 Thrombosis Deep Vein Personal History 03/26/2022 Gastroesophageal Reflux Disease Without Esophagitis 03/27/2022 Garment Sorter (Current) Anticoagulant Treatment 03/27/2022 Viral Syndrome 03/27/2022 Gastroesophageal Reflux Disease Without Esophagitis 03/27/2022 Atrial Fibrillation Paroxysmal (HCC) 03/27/2022 Garment Sorter (Current) Anticoagulant Treatment 03/27/2022 Monitoring For Therapeutic Drug Therapy 03/27/2022 Thrombosis Deep Vein Personal History 03/27/2022 Sore Throat 03/29/2022 Cough Unspecified Type 03/29/2022 Conjunctivitis Acute Bilateral 03/29/2022 Contact With And (Suspected) Exposure To COVID-19 03/30/2022 Gastroesophageal Reflux Disease Without Esophagitis 04/02/2022 Gastroesophageal Reflux Disease Without Esophagitis 04/02/2022 Preanesthetic Medical Exam 04/08/2022 Atrial Fibrillation Paroxysmal (HCC) 04/09/2022 Garment Sorter (Current) Anticoagulant Treatment 04/09/2022 Monitoring For Therapeutic Drug Therapy 04/09/2022 Thrombosis Deep Vein Personal History 04/09/2022 Atrial Fibrillation Paroxysmal (HCC) 04/16/2022 Detention (Current) Anticoagulant Treatment 04/16/2022 Monitoring For Therapeutic Drug Therapy 04/16/2022 Thrombosis Deep Vein Personal History 04/16/2022 Atrial Fibrillation Paroxysmal (HCC) 04/23/2022 Detention (Current) Anticoagulant Treatment 04/23/2022 Monitoring For Therapeutic Drug Therapy 04/23/2022 Thrombosis Deep Vein Personal History 04/23/2022 Gastroesophageal Reflux Disease Without Esophagitis 04/23/2022 Atrial Fibrillation Paroxysmal (HCC) 05/04/2022 Detention (Current) Anticoagulant Treatment 05/04/2022 Monitoring For Therapeutic Drug Therapy 05/04/2022 Thrombosis Deep Vein Personal History 05/04/2022 Thrombosis Deep Vein Personal History 05/07/2022 Garment Sorter (Current) Anticoagulant Treatment 05/07/2022 Monitoring For Therapeutic Drug Therapy 05/07/2022 Atrial Fibrillation Paroxysmal (HCC) 05/07/2022 Primary Osteoarthritis Knee Right 05/14/2022 Atrial Fibrillation Paroxysmal (HCC) 05/25/2022 Garment Sorter (Current) Anticoagulant Treatment 05/25/2022 Monitoring For Therapeutic Drug Therapy 05/25/2022 Thrombosis Deep Vein Personal History 05/25/2022 Polyp Colon 06/05/2022 Dehydration 06/05/2022 Lightheadedness 06/05/2022 Atrial Fibrillation Unspecified (HCC) 06/05/2022 Atrial Fibrillation Paroxysmal (HCC) 06/08/2022 Atrial Fibrillation Paroxysmal (HCC) 06/08/2022 Garment Sorter (Current) Anticoagulant Treatment 06/08/2022 Monitoring For Therapeutic Drug Therapy 06/08/2022 Thrombosis Deep Vein Personal History 06/08/2022 Polyp Colon Adenomatous Personal History 06/16/2022 Depression Major Recurrent Full Remission (HCC) 06/17/2022 Atrial Fibrillation Paroxysmal (HCC) 06/17/2022 Asthma Mild Intermittent (HCC) 06/17/2022 History Of Falling 06/17/2022 Primary Osteoarthritis Knee Right 06/17/2022 Thrombosis Deep Vein Personal History 06/17/2022 Detention (Current) Anticoagulant Treatment 06/17/2022 Maintenance Health Adult 06/17/2022 Hypertension Essential Primary 06/17/2022 Preoperative Exam 06/17/2022 Thrombosis Deep Vein Personal History 06/29/2022 Detention (Current) Anticoagulant Treatment 06/29/2022 Monitoring For Therapeutic Drug Therapy 06/29/2022 Atrial Fibrillation Paroxysmal (HCC) 06/29/2022 Atrial Fibrillation Paroxysmal (HCC) 07/06/2022 Garment Sorter (Current) Anticoagulant Treatment 07/06/2022 Monitoring For Therapeutic Drug Therapy 07/06/2022 Thrombosis Deep Vein Personal History 07/06/2022 Atrial Fibrillation Paroxysmal (HCC) 07/21/2022 Garment Sorter (Current) Anticoagulant Treatment 07/21/2022 Monitoring For Therapeutic Drug Therapy 07/21/2022 Thrombosis Deep Vein Personal History 07/21/2022 Restless Leg Syndrome 07/21/2022 Screening Mammogram Breast Cancer 07/28/2022 Atrial Fibrillation Paroxysmal (HCC) 08/04/2022 Garment Sorter (Current) Anticoagulant Treatment 08/04/2022 Monitoring For Therapeutic Drug Therapy 08/04/2022 Thrombosis Deep Vein Personal History 08/04/2022 Headache New 08/09/2022 Hypertension Borderline 08/09/2022 Atrial Fibrillation Paroxysmal (HCC) 08/17/2022 Screening Mammogram Breast Cancer 08/20/2022 Thrombosis Deep Vein Personal History 08/31/2022 Detention (Current) Anticoagulant Treatment 08/31/2022 Monitoring For Therapeutic Drug Therapy 08/31/2022 Atrial Fibrillation Paroxysmal (HCC) 08/31/2022 Atrial Fibrillation Paroxysmal (HCC) 09/07/2022 Detention (Current) Anticoagulant Treatment 09/07/2022 Monitoring For Therapeutic Drug Therapy 09/07/2022 Thrombosis Deep Vein Personal History 09/07/2022 Thrombosis Deep Vein Personal History 09/28/2022 Garment Sorter (Current) Anticoagulant Treatment 09/28/2022 Monitoring For Therapeutic Drug Therapy 09/28/2022 Atrial Fibrillation Paroxysmal (HCC) 09/28/2022 Atrial Fibrillation Unspecified (HCC) 10/20/2022 Dyspnea On Exertion 10/20/2022 Atrial Fibrillation Paroxysmal (HCC) 10/20/2022 Thrombosis Deep Vein Personal History 10/26/2022 Detention (Current) Anticoagulant Treatment 10/26/2022 Monitoring For Therapeutic Drug Therapy 10/26/2022 Atrial Fibrillation Paroxysmal (HCC) 10/26/2022 Deficiency Estrogen Post Menopausal 10/27/2022 Atrial Fibrillation Unspecified (HCC) 11/04/2022 Atrial Fibrillation Paroxysmal (HCC) 11/11/2022 Atrial Fibrillation Unspecified (HCC) 11/12/2022 Dyspnea On Exertion 11/12/2022 Atrial Fibrillation Unspecified (HCC) 11/12/2022 Dyspnea On Exertion 11/12/2022 Dyspnea On Exertion 11/12/2022 Atrial Fibrillation Paroxysmal (HCC) 11/23/2022 Garment Sorter (Current) Anticoagulant Treatment 11/23/2022 Monitoring For Therapeutic Drug Therapy 11/23/2022 Thrombosis Deep Vein Personal History 11/23/2022 Shortness Of Breath 11/28/2022 Detention (Current) Anticoagulant Treatment 11/30/2022 Atrial Fibrillation Paroxysmal (HCC) 11/30/2022 Thrombosis Deep Vein Acute Calf Right (HCC) 11/30/2022 Monitoring For Therapeutic Drug Therapy 11/30/2022 Garment Sorter (Current) Anticoagulant Treatment 11/30/2022 Atrial Fibrillation Paroxysmal (HCC) 11/30/2022 Thrombosis Deep Vein Acute Calf Right (HCC) 11/30/2022 Monitoring For Therapeutic Drug Therapy 11/30/2022 Hypertension Essential Primary 11/30/2022 Atrial Fibrillation Unspecified (HCC) 12/21/2022 Atrial Fibrillation Paroxysmal (HCC) 12/21/2022 Atrial Fibrillation Paroxysmal (HCC) 12/21/2022 Thrombosis Deep Vein Personal History 12/21/2022 Garment Sorter (Current) Anticoagulant Treatment 12/21/2022 Monitoring For Therapeutic Drug Therapy 12/21/2022 Restless Leg Syndrome 01/11/2023 Atrial Fibrillation Paroxysmal (HCC) 01/12/2023 Detention (Current) Anticoagulant Treatment 01/12/2023 Monitoring For Therapeutic Drug Therapy 01/12/2023 Thrombosis Deep Vein Personal History 01/12/2023 Thrombosis Deep Vein Personal History 01/18/2023 Garment Sorter (Current) Anticoagulant Treatment 01/18/2023 Monitoring For Therapeutic Drug Therapy 01/18/2023 Atrial Fibrillation Paroxysmal (HCC) 01/18/2023 Atrial Fibrillation Paroxysmal (HCC) 02/08/2023 Garment Sorter (Current) Anticoagulant Treatment 02/08/2023 Monitoring For Therapeutic Drug Therapy 02/08/2023 Thrombosis Deep Vein Personal History 02/08/2023 Thrombosis Deep Vein Personal History 02/15/2023 Detention (Current) Anticoagulant Treatment 02/15/2023 Monitoring For Therapeutic Drug Therapy 02/15/2023 Atrial Fibrillation Paroxysmal (HCC) 02/15/2023 Thrombosis Deep Vein Personal History 03/15/2023 Garment Sorter (Current) Anticoagulant Treatment 03/15/2023 Monitoring For Therapeutic Drug Therapy 03/15/2023 Atrial Fibrillation Paroxysmal (HCC) 03/15/2023 Thrombosis Deep Vein Personal History 03/15/2023 Detention (Current) Anticoagulant Treatment 03/15/2023 Monitoring For Therapeutic Drug Therapy 03/15/2023 Atrial Fibrillation Paroxysmal (HCC) 03/15/2023 Thrombosis Deep Vein Personal History 03/15/2023 Garment Sorter (Current) Anticoagulant Treatment 03/15/2023 Monitoring For Therapeutic Drug Therapy 03/15/2023 Atrial Fibrillation Paroxysmal (HCC) 03/15/2023 Deficiency Estrogen Post Menopausal 03/18/2023 Atrial Fibrillation Paroxysmal (HCC) 04/05/2023 Detention (Current) Anticoagulant Treatment 04/05/2023 Monitoring For Therapeutic Drug Therapy 04/05/2023 Thrombosis Deep Vein Personal History 04/05/2023 Atrial Fibrillation Paroxysmal (HCC) 04/07/2023 Atrial Fibrillation Paroxysmal (HCC) 04/10/2023 Atrial Fibrillation Paroxysmal (HCC) 04/19/2023 Detention (Current) Anticoagulant Treatment 04/19/2023 Monitoring For Therapeutic Drug Therapy 04/19/2023 Thrombosis Deep Vein Personal History 04/19/2023 Atrial Fibrillation Paroxysmal (HCC) 04/19/2023 Garment Sorter (Current) Anticoagulant Treatment 04/19/2023 Monitoring For Therapeutic Drug Therapy 04/19/2023 Atrial Fibrillation Paroxysmal (HCC) 04/19/2023 Garment Sorter (Current) Anticoagulant Treatment 04/19/2023 Monitoring For Therapeutic Drug Therapy 04/19/2023 Hyperlipidemia 04/27/2023 Atrial Fibrillation Paroxysmal (HCC) 05/03/2023 Detention (Current) Anticoagulant Treatment 05/03/2023 Monitoring For Therapeutic Drug Therapy 05/03/2023 Thrombosis Deep Vein Personal History 05/03/2023 Atrial Fibrillation Paroxysmal (HCC) 05/10/2023 Detention (Current) Anticoagulant Treatment 05/10/2023 Monitoring For Therapeutic Drug Therapy 05/10/2023 Thrombosis Deep Vein Personal History 05/10/2023 Thrombosis Deep Vein Personal History 05/17/2023 Garment Sorter (Current) Anticoagulant Treatment 05/17/2023 Monitoring For Therapeutic Drug Therapy 05/17/2023 Atrial Fibrillation Paroxysmal (HCC) 05/17/2023 Atrial Fibrillation Paroxysmal (HCC) 05/31/2023 Detention (Current) Anticoagulant Treatment 05/31/2023 Monitoring For Therapeutic Drug Therapy 05/31/2023 Thrombosis Deep Vein Personal History 05/31/2023 Atrial Fibrillation Paroxysmal (HCC) 05/31/2023 Atrial Fibrillation Unspecified (HCC) 05/31/2023 Hypertension Essential Primary 05/31/2023 Hypertension Pulmonary (HCC) 05/31/2023 Obstructive Sleep Apnea Adult 05/31/2023 Atrial Fibrillation Unspecified (HCC) 05/31/2023 Incontinence Urinary 06/09/2023 Incontinence Urinary 06/09/2023 Thrombosis Deep Vein Personal History 06/14/2023 Detention (Current) Anticoagulant Treatment 06/14/2023 Monitoring For Therapeutic Drug Therapy 06/14/2023 Atrial Fibrillation Paroxysmal (HCC) 06/14/2023 Repeated Falls 06/24/2023 Atrial Fibrillation Paroxysmal (HCC) 06/28/2023 Detention (Current) Anticoagulant Treatment 06/28/2023 Monitoring For Therapeutic Drug Therapy 06/28/2023 Thrombosis Deep Vein Personal History 06/28/2023 Thrombosis Deep Vein Personal History 06/30/2023 Detention (Current) Anticoagulant Treatment 06/30/2023 Monitoring For Therapeutic Drug Therapy 06/30/2023 Atrial Fibrillation Paroxysmal (HCC) 06/30/2023 Restless Leg Syndrome 07/08/2023 Atrial Fibrillation Unspecified (HCC) 07/08/2023 Thrombosis Deep Vein Personal History 07/12/2023 Detention (Current) Anticoagulant Treatment 07/12/2023 Monitoring For Therapeutic Drug Therapy 07/12/2023 Atrial Fibrillation Paroxysmal (HCC) 07/12/2023 Atrial Fibrillation Unspecified (HCC) 07/20/2023 Atrial Fibrillation Paroxysmal (HCC) 07/20/2023 Atrial Fibrillation Paroxysmal (HCC) 07/19/2023 Garment Sorter (Current) Anticoagulant Treatment 07/19/2023 Thrombosis Deep Vein Acute Calf Right (HCC) 07/19/2023 Monitoring For Therapeutic Drug Therapy 07/19/2023 Thrombosis Deep Vein Personal History 07/22/2023 Detention (Current) Anticoagulant Treatment 07/22/2023 Monitoring For Therapeutic Drug Therapy 07/22/2023 Atrial Fibrillation Paroxysmal (HCC) 07/22/2023 Thrombosis Deep Vein Personal History 07/23/2023 Detention (Current) Anticoagulant Treatment 07/23/2023 Monitoring For Therapeutic Drug Therapy 07/23/2023 Atrial Fibrillation Paroxysmal (HCC) 07/23/2023 Thrombosis Deep Vein Personal History 07/26/2023 Garment Sorter (Current) Anticoagulant Treatment 07/26/2023 Monitoring For Therapeutic Drug Therapy 07/26/2023 Atrial Fibrillation Paroxysmal (HCC) 07/26/2023 Screening Mammogram Breast Cancer 08/23/2023 Thrombosis Deep Vein Personal History 08/23/2023 Garment Sorter (Current) Anticoagulant Treatment 08/23/2023 Monitoring For Therapeutic Drug Therapy 08/23/2023 Atrial Fibrillation Paroxysmal (HCC) 08/23/2023 Atrial Fibrillation Paroxysmal (HCC) 09/02/2023 Garment Sorter (Current) Anticoagulant Treatment 09/02/2023 Thrombosis Deep Vein Acute Calf Right (HCC) 09/02/2023 Monitoring For Therapeutic Drug Therapy 09/02/2023 Detention (Current) Anticoagulant Treatment 09/03/2023 Atrial Fibrillation Paroxysmal (HCC) 09/06/2023 Garment Sorter (Current) Anticoagulant Treatment 09/06/2023 Monitoring For Therapeutic Drug Therapy 09/06/2023 Thrombosis Deep Vein Personal History 09/06/2023 Thrombosis Deep Vein Personal History 09/14/2023 Detention (Current) Anticoagulant Treatment 09/14/2023 Monitoring For Therapeutic Drug Therapy 09/14/2023 Atrial Fibrillation Paroxysmal (HCC) 09/14/2023 Thrombosis Deep Vein Personal History 09/20/2023 Garment Sorter (Current) Anticoagulant Treatment 09/20/2023 Monitoring For Therapeutic Drug Therapy 09/20/2023 Atrial Fibrillation Paroxysmal (HCC) 09/20/2023 Atrial Fibrillation Paroxysmal (HCC) 09/27/2023 Garment Sorter (Current) Anticoagulant Treatment 09/27/2023 Monitoring For Therapeutic Drug Therapy 09/27/2023 Thrombosis Deep Vein Personal History 09/27/2023 Atrial Fibrillation Paroxysmal (HCC) 10/11/2023 Garment Sorter (Current) Anticoagulant Treatment 10/11/2023 Monitoring For Therapeutic Drug Therapy 10/11/2023 Thrombosis Deep Vein Personal History 10/11/2023 Thrombosis Deep Vein Personal History 10/18/2023 Detention (Current) Anticoagulant Treatment 10/18/2023 Monitoring For Therapeutic [...] 11/12/2023 Thrombosis Deep Vein Personal History 11/16/2023 Garment Sorter (Current) Anticoagulant Treatment 11/16/2023 Monitoring For Therapeutic Drug Therapy 11/16/2023 Atrial Fibrillation Paroxysmal (HCC) 11/16/2023 Atrial Fibrillation Paroxysmal (HCC) 11/22/2023 Detention (Current) Anticoagulant Treatment 11/22/2023 Monitoring For Therapeutic Drug Therapy 11/22/2023 Thrombosis Deep Vein Personal History 11/22/2023 Hypertension Pulmonary (HCC) 11/25/2023 Chronic Diastolic (Congestive) Heart Failure (HCC) 11/25/2023 Thrombosis Deep Vein Personal History 11/29/2023 Detention (Current) Anticoagulant Treatment 11/29/2023 Monitoring For Therapeutic Drug Therapy 11/29/2023 Atrial Fibrillation Paroxysmal (HCC) 11/29/2023 Atrial Fibrillation Paroxysmal (HCC) 12/06/2023 Garment Sorter (Current) Anticoagulant Treatment 12/06/2023 Monitoring For Therapeutic Drug Therapy 12/06/2023 Thrombosis Deep Vein Personal History 12/06/2023 Obstructive Sleep Apnea Adult 12/08/2023 Atrial Fibrillation Paroxysmal (HCC) 12/13/2023 Detention (Current) Anticoagulant Treatment 12/13/2023 Monitoring For Therapeutic Drug Therapy 12/13/2023 Thrombosis Deep Vein Personal History 12/13/2023 Thrombosis Deep Vein Personal History 12/27/2023 Garment Sorter (Current) Anticoagulant Treatment 12/27/2023 Monitoring For Therapeutic Drug Therapy 12/27/2023 Atrial Fibrillation Paroxysmal (HCC) 12/27/2023 Atrial Fibrillation Paroxysmal (HCC) 01/03/2024 Garment Sorter (Current) Anticoagulant Treatment 01/03/2024 Monitoring For Therapeutic Drug Therapy 01/03/2024 Thrombosis Deep Vein Personal History 01/03/2024 Atrial Fibrillation Paroxysmal (HCC) 01/10/2024 Detention (Current) Anticoagulant Treatment 01/10/2024 Monitoring For Therapeutic Drug Therapy 01/10/2024 Thrombosis Deep Vein Personal History 01/10/2024 Thrombosis Deep Vein Personal History 01/24/2024 Garment Sorter (Current) Anticoagulant Treatment 01/24/2024 Monitoring For Therapeutic Drug Therapy 01/24/2024 Atrial Fibrillation Paroxysmal (HCC) 01/24/2024 Atrial Fibrillation Paroxysmal (HCC) 01/24/2024 Garment Sorter (Current) Anticoagulant Treatment 01/24/2024 Monitoring For Therapeutic Drug Therapy 01/24/2024 Thrombosis Deep Vein Personal History 01/24/2024 Failure Heart (HCC) 02/21/2024 Atrial Fibrillation Paroxysmal (HCC) 02/21/2024 Detention (Current) Anticoagulant Treatment 02/21/2024 Monitoring For Therapeutic Drug Therapy 02/21/2024 Thrombosis Deep Vein Personal History 02/21/2024 Insomnia 03/21/2024 Thrombosis Deep Vein Personal History 03/29/2024 Detention (Current) Anticoagulant Treatment 03/29/2024 Monitoring For Therapeutic Drug Therapy 03/29/2024 Atrial Fibrillation Paroxysmal (HCC) 03/29/2024 Atrial Fibrillation Paroxysmal (HCC) 03/29/2024 Detention (Current) Anticoagulant Treatment 03/29/2024 Monitoring For Therapeutic Drug Therapy 03/29/2024 Thrombosis Deep Vein Personal History 03/29/2024 Thrombosis Deep Vein Personal History 04/11/2024 Garment Sorter (Current) Anticoagulant Treatment 04/11/2024 Monitoring For Therapeutic Drug Therapy 04/11/2024 Atrial Fibrillation Paroxysmal (HCC) 04/11/2024 Failure Heart (HCC) 04/27/2024 Failure Heart (HCC) 04/27/2024 Atrial Fibrillation Paroxysmal (HCC) 04/27/2024 Failure Heart (HCC) 04/27/2024 Chronic Diastolic (Congestive) Heart Failure (HCC) 04/27/2024 Hypertension Essential Primary 04/27/2024 Atrial Fibrillation Paroxysmal (HCC) 04/27/2024 Sleep Apnea 04/27/2024 Hyperlipidemia 04/27/2024 Thrombosis Deep Vein Personal History 05/04/2024 Detention (Current) Anticoagulant Treatment 05/04/2024 Monitoring For Therapeutic Drug Therapy 05/04/2024 Atrial Fibrillation Paroxysmal (HCC) 05/04/2024 Thrombosis Deep Vein Personal History 05/08/2024 Garment Sorter (Current) Anticoagulant Treatment 05/08/2024 Monitoring For Therapeutic Drug Therapy 05/08/2024 Atrial Fibrillation Paroxysmal (HCC) 05/08/2024 Thrombosis Deep Vein Personal History 05/15/2024 Detention (Current) Anticoagulant Treatment 05/15/2024 Monitoring For Therapeutic Drug Therapy 05/15/2024 Atrial Fibrillation Paroxysmal (HCC) 05/15/2024 Obstructive Sleep Apnea Adult 05/25/2024 Thrombosis Deep Vein Personal History 2024 Detention (Current) Anticoagulant Treatment 2024 Monitoring For Therapeutic Drug Therapy 2024 Atrial Fibrillation Paroxysmal (HCC) 2024 Gastroesophageal Reflux Disease Without Esophagitis 2024 Thrombosis Deep Vein Personal History 06/12/2024 Garment Sorter (Current) Anticoagulant Treatment 06/12/2024 Monitoring For Therapeutic Drug Therapy 06/12/2024 Atrial Fibrillation Paroxysmal (HCC) 06/12/2024 Thrombosis Deep Vein Personal History 06/12/2024 Garment Sorter (Current) Anticoagulant Treatment 06/12/2024 Monitoring For Therapeutic Drug Therapy 06/12/2024 Atrial Fibrillation Paroxysmal (HCC) 06/12/2024 Thrombosis Deep Vein Personal History 07/03/2024 Detention (Current) Anticoagulant Treatment 07/03/2024 Monitoring For Therapeutic Drug Therapy 07/03/2024 Atrial Fibrillation Paroxysmal (HCC) 07/03/2024 Atrial Fibrillation Paroxysmal (HCC) 07/11/2024 Obesity Body Mass Index 30-39.9 Adult 07/18/2024 Atrial Fibrillation Paroxysmal (HCC) 07/18/2024 Thrombosis Deep Vein Personal History 07/24/2024 Garment Sorter (Current) Anticoagulant Treatment 07/24/2024 Monitoring For Therapeutic Drug Therapy 07/24/2024 Atrial Fibrillation Paroxysmal (HCC) 07/24/2024 Thrombosis Deep Vein Personal History 07/31/2024 Detention (Current) Anticoagulant Treatment 07/31/2024 Monitoring For Therapeutic Drug Therapy 07/31/2024 Atrial Fibrillation Paroxysmal (HCC) 07/31/2024 Atrial Fibrillation Unspecified (HCC) 07/13/2018 Hypertensive Heart [...] Failure (HCC) 09/08/2020 Gastroesophageal Reflux Disease 09/08/2020 Detention (Current) Anticoagulant Treatment 09/08/2020 Atrial Fibrillation Paroxysmal (HCC) 09/08/2020 COVID-19 Infection 09/08/2020 Anemia 09/08/2020 Atrial Fibrillation Paroxysmal (HCC) 07/19/2023 Hypertension Essential Primary 07/19/2023 Atrial Fibrillation Unspecified (HCC) 07/19/2023 Gastroesophageal Reflux Disease Without Esophagitis 07/19/2023 Hyperlipidemia 07/19/2023 Metabolizer CYP2D6 Rapid 07/19/2023 Sleep Apnea 07/19/2023 Thrombosis Deep Vein Personal History 07/19/2023 Detention (Current) Anticoagulant Treatment 07/19/2023 Monitoring For Therapeutic Drug Therapy 07/19/2023 History Of Falling 07/19/2023 Anemia 07/19/2023 Care Teams Zmt Operator Relationship Specialty Start Date End Date Emilia Lincoln M.D. [address] [place] [phone] PCP - General Family Medicine 08/13/23
--- OUTSIDE RECORDS SUMMARY | 2024-08-10 09:23 | XMS_ITS | Encounter Summary ---
Author Organization [facility] Address [address] [place] [id number] Care Team Providers Care Fairing Man Name Role Phone Emilia Lincoln M.D. Primary Care Provider [phone] Reason for Visit * Reason Onset Date Comments Pre-visit Intake 07/10/2024 Encounter Details Date Type Department Care Team (Latest Contact Info) Description 07/10/2024 11:45 AM CDT Clinical Communication Virtual Review in [place], [place] [address] [place] [address] Pre-visit Intake Social History Tobacco Use Types Packs/Day Years Used Date Smoking Tobacco: Never Passive Smoke Exposure: Never Smokeless Tobacco: Never Tobacco Cessation:Counseling Given: Not Answered Alcohol Use Standard Drinks/Week Comments Yes 2 [...] often do you attend chur ch or jainism services? More than 4 times per year 02/25/2022 Do you belong to any clubs o r organizations such as sikhism groups, unions, fraternal or athletic groups, or [...] Answer Date Recorded PHQ-2 Score 3 [facility] Answer Date Recorded [...] your living situation today? I have a [facility] place to live 05/26/2023 Education Answer Date Recorded What is the highest level of school you have completed or the highest degree you have received? Master's degree (e.g., MA, MS, Tacho, MEd, [employer]CH[employer] APPRENTICE, EARLE) 06/27/2019 Sex and Gender Information Value Date Recorded Sex Assigned at Female 11/24/2017 7:34 PM COSTUME DIRECTOR Gender Identity Female 05/03/2021 11:34 AM CDT Sexual Orientation Straight 05/03/2021 11 :34 AM CDT documented as of this encounter Plan of Treatment Upcoming Encounters Date Type Department Care Team (Latest Contact Info) Description 08/28/2024 8:30 AM CDT Anticoagulation Visit Department of Anticoagulation in [place], [place] [address] [place] [address] Emilia Lincoln M.D. [address] [place] [phone] documented as of this encounter Visit Diagnoses Not on filedocumented in this encounter Additional Health Concerns Assessment Noted Time PHQ-9 Depression Total Score: 8 04/26/20 24 10:43 AM CDT documented as of this encounter Care Teams Fairing Man Relationship Specialty Start Date End Date Emilia Lincoln M.D. [address] [place] [phone] PCP - General Family Medicine 08/13/23 documented as of this encounter
--- OUTSIDE RECORDS SUMMARY | 2024-08-10 09:23 | XMS_ITS | Referral Summary ---
Author Organization [facility] Address [address] [place] [address] Care Team Providers Care Shape Brick Molder Name Role Phone Emilia Lincoln M.D. Primary Care Provider [phone]- [phone] Source Comments Patient records contain information from all sites at [facility]. For routine questions regarding patient records, call [phone] during business hours, M-F 8:00 AM - 5:00 PM Central Time. Record requests for emergency care only can be directed to [phone] at any time.[facility] Encounters Date Type Department Care Team Description 07/31/2024 Clinical Communication Department of Cardiovascular Medicine in [place], [place] [address] [place] [phone] Prescheduling, Provider Procedure Request (Ablation) 07/31/2024 9:45 AM CDT Anticoagulation Visit Department of Anticoagulation in [place], [place] [address] [place] [phone] Emilia Lincoln M.D. Thrombosis Deep Vein Personal History; Neonatal Icu Coordinator (Current) Anticoagulant Treatment; Monitoring For Therapeutic Drug Therapy; Atrial Fibrillation Paroxysmal (HCC) 07/24/2024 10:45 AM CDT Anticoagulation Visit Department of Anticoagulation in [place], [place] [address] [place] [phone] Emilia Lincoln M.D. Thrombosis Deep Vein Personal History (Primary Dx); Penitentiary (Current) Anticoagulant Treatment; Monitoring For Therapeutic Drug Therapy; Atrial Fibrillation Paroxysmal (HCC) 07/18/2024 11:00 AM CDT Office Visit Department of Cardiovascular Medicine in [address] [phone] Jerardo Buckley M.D., Ph.D. Obesity Body Mass Index 30-39.9 Adult (Primary Dx); Atrial Fibrillation Paroxysmal (HCC) 07/11/2024 2:20 PM CDT - 07/11/2024 11:59 PM CDT Hospital Encounter Department of Cardiovascular Diseases in [address] [phone] Jerardo Buckley M.D., Ph.D. Atrial Fibrillation Paroxysmal (HCC) Discharge Disposition: Home or Self Care 07/10/2024 11:45 AM CDT Clinical Communication Virtual Review in [address] [phone] Pre-visit Intake 07/03/2024 8:15 AM CDT Anticoagulation Visit Department of Anticoagulation in [address] [phone] Emilia Lincoln M.D. Thrombosis Deep Vein Personal History; Penitentiary (Current) Anticoagulant Treatment; Monitoring For Therapeutic Drug Therapy; Atrial Fibrillation Paroxysmal (HCC) 06/12/2024 Orders Only Department of Anticoagulation in [address] [phone] Jacquie Chavis R.N. Thrombosis Deep Vein Personal History (Primary Dx); Neonatal Icu Coordinator (Current) Anticoagulant Treatment; Monitoring For Therapeutic Drug Therapy; Atrial Fibrillation Paroxysmal (HCC) 06/12/2024 3:00 PM CDT Anticoagulation Visit Department of Anticoagulation in [address] [phone] Emilia Lincoln M.D. Thrombosis Deep Vein Personal History (Primary Dx); Neonatal Icu Coordinator (Current) Anticoagulant Treatment; Monitoring For Therapeutic Drug Therapy; Atrial Fibrillation Paroxysmal (HCC) 2024 8:15 AM CDT Anticoagulation Visit Department of Anticoagulation in [address] [phone] Emilia Lincoln M.D. Thrombosis Deep Vein Personal History (Primary Dx); Penitentiary (Current) Anticoagulant Treatment; Monitoring For Therapeutic Drug Therapy; Atrial Fibrillation Paroxysmal (HCC); Gastroesophageal Reflux Disease Without Esophagitis 05/25/2024 3:30 PM CDT Office Visit [facility] in [place], [place] [address] [place] [address] Silvino Pineda D.O., M.S. Obstructive Sleep Apnea Adult (Primary Dx) 05/15/2024 1:15 PM CDT Anticoagulation Visit Department of Anticoagulation in [place], [place] [address] [place] [address] Emilia Lincoln M.D. Thrombosis Deep Vein Personal History (Primary Dx); Neonatal Icu Coordinator (Current) Anticoagulant Treatment; Monitoring For Therapeutic Drug Therapy; Atrial Fibrillation Paroxysmal (HCC) from Last 3 Months Allergies Active Allergy [...] (COUMADIN) 5 mg tabletIndications: Atrial Fibrillation Paroxysmal (HCC),Neonatal Icu Coordinator (Current) Anticoagulant Treatment,Thrombos is Deep Vein Acute [...] - cardioversion, apparent [facility]R [facility] - HR max 120 on metoprolol succinate 25 mg once daily - a.fib on exam today - discussed, to Rhythm Service for iv sotalol - back to Sleep Medicine for continued efforts re [facility]. 09/16/2021 NSR on sotalol 120 mg BID ?? Penitentiary (Current) Anticoagulant Treatment 11/2017 Overview (06/18/2022): 07/03/2019 [...] deep compression, but otherwise benign exam - [facility] US negative - observe only. [...] - cardioversion, apparent NSR until wrapping up [facility] trip 07/23/18 - HR max 120 on [...] no heartburn, no diarrhea. NEG exam at [facility] [place] 12/29, repeat exam benign 01/26. Discussed in [...] ?? 03/31: Discussed in detail - nausea 24/ and intermittent heartburn - no difference off [...] to pursue non pharm modalities - Mr Byron kindly agreed to triage. ?? 11/24: Wishes [...] sleeping a lot on January vacation in [place] - glad that spouse was off golfing [...] COVID-19 09/08/2020 Anticoagulant Therapy [Z79.01] 10/02/2017 08/12/2018 Neonatal Icu Coordinator (Current) Anticoagulant Treatment 10/09/2011 08/12/2018 Immunizations Name [...] trivalent vaccine (6 months and older)(PF) 09/07/2011,09/19/2008,09/19/2008 Social History Tobacco Use Types Packs/Day Years [...] How often do you attend chur or yazidi services? More than 4 times per year [...] Answer Date Recorded PHQ-2 Score 3 04/26/2024 [facility] - Occupational Stress Questionnaire Answer Date [...] your living situation today? I have a [facility] place to live 05/26/2023 Education Answer Date Recorded What is the highest level of school you have completed or the highest degree you have received? Master's degree (e.g., MA, MS, Tacho, MEd, CORE OVEN TENDER, EARLE) 06/27/2019 Sex and Gender Information Value Date Recorded Sex Assigned at Female 11/24/2017 7:34 PM OLEOMARGARINE MAKER Gender Identity Female 05/03/2021 11:34 AM CDT Sexual Orientation Straight 05/03/2021 11 :34 AM CDT Last Filed Vital Signs Vital Sign Reading Time Taken Comments Blood Pressure 121/76 07/18/2024 10:46 AM CDT Pulse 80 07/18/2024 10:46 AM CDT Temperature 36.4 ??C (97.5 ??F) 11/03/2023 2:50 PM CS T Respiratory Rate 16 11/03/2023 5:34 PM OLEOMARGARINE MAKER Oxygen Saturation 96% 11/03/2023 9:29 AM OLEOMARGARINE MAKER Inhaled Oxygen Concentration - - Weight 93.1 kg (205 lb 4 oz) 07/18/2024 10:46 AM CDT Height 155.4 cm (5' 1.18) 07/18/2024 10:46 AM C DT Body Mass Index 38.55 07/18/2024 10:46 AM CDT Plan of Treatment Upcoming Encounters Date Type Department Care Team (Latest Contact Info) Description 08/28/2024 8:30 AM CDT Anticoagulation Visit Department of Anticoagulation in [place], [place] [address] [place] [address] Emilia Lincoln M.D. [address] [place] [phone] Medical Devices Implanted Type Area Ctc Operator Device Identifier Shelf Expiration Date Model / Serial / Lot Knee Implant Knee Implant Knee J J Patella Rev Round 32m - [id number] Implanted:Qty: 1 on 09/11/2011 Knee Implant Other/Legacy - See Implant Description [employer] Description:Device Manufactu rer - [employer]. Body Location - Other. Left. Device Status Text - KNEE [id number]. Depuy-Insert Stabilized Sz 3 10mm - Rodriguez [id number] Implanted:Qty: 1 on 09/11/2011 Knee Implant Other/Legacy - See Implant Description [employer] Description:Device Manufactu rer - [employer]. Body Location - Other. Left. Device Status Text - KNEE [id number]. Sigma Post Stab.W Lug Fem Sz 3 Lt - Rodriguez [id number] Implanted:Qty: 1 on 09/11/2011 Knee Implant Other/Legacy - See Implant Description [employer] Description:Device Manufactu rer - [employer]. Body Location - Other. Left. Device Status Text - KNEE [id number]. Depuy-Tib Tray Mod Cement Cocr Sz3 - Rodriguez [id number] Implanted:Qty: 1 on 09/11/2011 Knee Implant Other/Legacy - See Implant Description [employer] Description:Device Manufactu rer - J [employer]. Body Location - Other. Left. Device Status Text - KNEE [id number]. Conversions - Default Historical Implant Device Implanted:09/27 (Quantity not on file) Knee Implant Description:Device Status Te xt - Knee Imp. artificial left knee. Cement Bone Large - Rodriguez [id number] Implanted:Qty: 2 on 09/11/2011 Misc Other Nette Description:Device Manufactu rer - Nette Terell.. Device [...] Routine 07/17/2024 HOLTER MONITOR - IN CLINIC PAPER SALES MANAGER Routine 07/12/2024 11:16 AM CDT Atrial Fibrillation [...] 2024 PROTHROMBIN TIME (PT), P Routine 05/15/2024 SODIUM, S/P Routine 04/27/2024 8:42 AM CDT Failure Heart (HCC) POTASSIUM, S/P Routine 04/27/2024 8:42 AM CDT Atrial Fibrillation Paroxysmal (HCC) CREATININE WITH EGFR, S/P Routine 04/27/2024 8:42 AM CDT Atrial Fibrillation Paroxysmal (HCC) BI BREAST SCREENING BILATERAL WITH TOMOSYNTHESIS RAD - Routine (most inpatients and all outpatients) 08/23/2023 1:41 PM CDT Screening Mammogram Breast Cancer COLONOSCOPY Routine 06/05/2022 10:57 AM CDT Polyp Colon COLOGUARD Routine 07/04/2020 3:30 PM CDT Screening Cancer Colon from Last 3 Months or Most Recently Relevant to Health Maintenance Results * Prothrombin Time (PT) (07/31/2024) Only the most recent of11 resultswithin the time period is included. EXT INR 2.00 PATIENT PO INT OF CARE DEVICE Blood (Blood, Venous) 07/31/2024 Historical Provider LAB BLOOD ADD-ON PATIENT POINT OF CARE DEVICE * HOLTER MONITOR - IN CLINIC PAPER SALES MANAGER (07/12/2024 11:16 AM CDT) Min Heart Rate 54 bpm INFOB IONIC [...] Duration 0 duration INFOBION IC MOME AF [place] 0 percent INFOBIONIC MOME Symptom Count 0 [...] complexes. 4. No symptomatic events were noted. Junior Legal Secretary: EUNICE Aguilera / EUNICE Cardoza Procedure Note Freeman Davis Jr., M.D. - [...] complexes. 4. No symptomatic events were noted. Junior Legal Secretary: EUNICE Aguilera / EUNICE Cardoza Jerardo Buckley M.D., Ph.D. CV CARDIAC S ERVICES PROCEDURES INFOBIONIC MOME NA * ECG 12 Lead (07/11/2024 2:27 PM CDT) Pathologist [facility] Ventricular Rate ECG/Min 54 BPM MUSE TN Interval 196 ms MUSE QRSD Interval 86 ms MUSE QT Interval 464 ms MUSE QTC Interval 440 ms MUSE P [place] 20 degrees MUSE R [place] 21 degrees MUSE T Wave [place] 33 degrees MUSE 07/11/2024 2:27 PM CDT 07/11/2024 4:24 PM CDT Impressions MUSE - 07/11/2024 2:29 PM CDT Sinus bradycardia Low anterior forces slight ST-elevation anterior leads, consider early repolarization or pericarditis When compared with ECG of 27-Apr-2024 08:55, TN interval has decreased Slight ST-elevation now present Revised Report Narrative Procedure Note Freeman Davis Jr., M.D. - 07/11/2024 IMPRESSION: Sinus bradycardia Low anterior forces slight ST-elevation anterior leads, consider early repolarization orpericarditis When compared with ECG of 27-Apr-2024 08:55, TN interval has decreased Slight ST-elevation now present Revised Report Jerardo Buckley M.D., Ph.D. ECG ORDERABL ES Performing Organization Address City/[facility]/ZIP Co de Phone Number MUSE NA * Sodium (04/27/2024 8:42 AM CDT) [facility] Sodium, S 141 135 - 145 mmol/L 04/27/2024 10:16 AM CDT DTL Blood (Blood, Venous) 04/27/2024 8:42 AM CDT 04/27/2024 9:24 AM CDT Hugo Sanchez M.D. LAB BLOOD ADD-ON [facility] [address] [place] [address], [place] [facility] [address] [place] [address] * Potassium (04/27/2024 8:42 AM CDT) Potassium, S 4.4 3.6 - 5.2 mmol/L 04/27/2024 10:16 AM CDT DTL Blood (Blood, Venous) 04/27/2024 8:42 AM CDT 04/27/2024 9:24 AM CDT Jerardo Buckley M.D., Ph.D. LAB BLOOD AD D-ON Performing Organization Address [facility] Co de Phone Number [facility] [address] [place] [address], [facility] [address] [place] [address] * (ABNORMAL) Creatinine with Estimated GFR (04/27/2024 [...] LAB BLOOD AD D-ON Performing Organization Address [facility] Co de Phone Number [facility] [address] [place] [address], [facility] [address] [place] [address] * BI Breast Screening Bilateral with Tomosynthesis [...] ASSESSMENT: BI-RADS: 1: Negative. Emilia Lincoln M.D. [facility] BI PROCEDURES * Cologuard (07/04/2020 3:30 PM [...] (Ritesh Whitman al, N Engl J Med 2014;370(14):0912-6642) The normal value (reference range) for this assay is negative. COLOGUARD RE-SCREENING RECOMMENDATION: Periodic routine colorectal cancer screening is an important part of preventive healthcare for asymptomatic persons at average risk for colorectal cancer. Following a negative Cologuard result, the [place] Cancer Society and U.S. Multi-Society Task Force screening guidelines recommend a Cologuard re-screening interval of 3 years. References: [place] [employer] Society (ACS). Colorectal cancer prevention and early detection. [place], [place]: [place] [employer] Society; [updated 2015Mar 08]. https://www.cancer.org/cancer/urkrl-wnjoka-xslylu/detection- diagnosis-staging/acs-recommendations.html. Accessed July 15, 2018; Hao DK, Ludmila MAY, Ashley GRADY, Colorectal Cancer Screening: Recommendations for Physicians and Patients from the U.S. Multi-Society Task Force on Colorectal Cancer Screening, Am J Gastroenterology 2017; 112:0713-5101. TEST TYPE: Composite algorithmic analysis of stool [...] interval of every 3 years by the [place] [employer] Society and U.S. Multi-Society Task Force. [...] can be accessed at the following location: www.Pushfor.com/results. Additional description of the Cologuard test process, warnings and precautions can be found at www.cologuardtest.com. Rx only. Stool (Stool) 07/04/2020 3:3 0 PM CDT 07/06/2020 6:50 PM CDT Telly Gaines M.D. LAB BODY FLUIDS AN D STOOLS ORDERABLES [employer] [address] [place] [address] [employer]LI [employer] [address] [facility], [address] [place] [address] from Last 3 Months or Most Recently Relevant to Health Maintenance Advance Directives For more information, please contact: [phone] Documents on File Type Date Recorded Patient Tune Up Mechanic Expl anation Advance Directives 05/19/2018 4:06 PM [...] Alternat e Health Care Agent Care Teams Shape Brick Molder Relationship Specialty Start Date End Date Emilia Lincoln M.D. [address] [place] [phone] PCP - General Family Medicine 08/13/23
--- OUTSIDE RECORDS SUMMARY | 2024-08-10 09:23 | XMS_ITS | Encounter Summary ---
Author Organization [facility] Address [address] [place] [address] Care Team Providers Care Substation Technician Name Role Phone Emilia Lincoln M.D. Primary Care Provider +1- [phone] Reason for Visit * Reason Onset Date Comments Procedure Request 07/31/2024 Ablation Encounter Details Date Type Department Care Team (Latest Contact Info) Description 07/31/2024 Clinical Communication Department of Cardiovascular Medicine in [place], [place] [address] [place] [address] Prescheduling, Provider Procedure Request (Ablation) Social History Tobacco Use Types Packs/Day Years [...] often do you attend chur ch or evangelical services? More than 4 times per year 02/25/2022 Do you belong to any clubs o r organizations such as yarsanism groups, unions, fraternal or athletic groups, or [...] Answer Date Recorded PHQ-2 Score 3 04/26/2024 [facility] Questionnaire Answer Date [...] your living situation today? I have [facility] to live 05/26/2023 Education Answer Date Recorded What is the highest level of school you have completed or the highest degree you have received? Master's degree (e.g., MA, MS, Tacho, MEd, PRODUCTION LABORER, EARLE) 06/27/2019 Sex and Gender Information Value Date Recorded Sex Assigned at Female 11/24/2017 7:34 PM RETAIL WORKER Gender Identity Female 05/03/2021 11:34 AM CDT Sexual Orientation Straight 05/03/2021 11 :34 AM CDT documented as of this encounter Plan of Treatment Upcoming Encounters Date Type Department Care Team (Latest Contact Info) Description 08/28/2024 8:30 AM CDT Anticoagulation Visit Department of Anticoagulation in [place], [place] [address] [place] [address] Emilia Lincoln M.D. [address] [place] [phone] documented as of this encounter Visit Diagnoses Not on filedocumented in this encounter Additional Health Concerns Assessment Noted Time PHQ-9 Depression Total Score: 8 04/26/20 24 10:43 AM CDT documented as of this encounter Care Teams Substation Technician Relationship Specialty Start Date End Date Emilia Lincoln M.D. [id number] [phone] PCP - General Family Medicine 08/13/23 documented as of this encounter
--- OUTSIDE RECORDS SUMMARY | 2024-08-10 09:23 | XMS_ITS | Encounter Summary ---
[facility] Organization [facility] Address [address] [place] [address] Care Team Providers Care Embroidery Specialist Name Role Phone Emilia Lincoln M.D. Primary Care Provider +1- [phone] Reason for Referral * Outpatient (Routine) - Authorized Specialty Diagnoses / Procedures Referred By Contac t Referred To Contact Diagnoses Atrial Fibrillation Paroxysmal (HCC) Procedures ECG 12 Lead Jerardo Buckley M.D., Ph.D. [address] [place] [phone] [facility] Referral ID Status Reason Start Date Expiration Date V isits Requested Visits Authorized [id number] Authorized 07/18/2024 07/18/2025 1 1 * Outpatient (Routine) - Authorized Specialty Diagnoses / Procedures Referred By Contac t Referred To Contact Diagnoses Atrial Fibrillation Paroxysmal (HCC) Procedures ECG Heart rhythm monitor (Holter) Jerardo Buckley M.D., Ph.D. [address] [place] [address] [facility] Referral ID Status Reason Start Date Expiration Date V isits Requested Visits Authorized [id number] Authorized 07/18/2024 07/18/2025 1 1 * Outpatient (Routine) - Authorized Specialty Diagnoses / Procedures Referred By Evie saxena Referred To Contact Cardiovascular Disease Jerardo Buckley M.D., Ph.D. [address] [place] [phone] [facility] Referral ID Status Reason Start Date Expiration Date V isits Requested Visits Authorized [id number] Authorized 07/18/2024 01/17/2026 1 1 Scheduling Instructions Please schedule a visit with Dr. Buckley in March 2024 with tests then Reason for Visit * Outpatient (Routine) - Closed Specialty Diagnoses / Procedures Referred By Evie saxena Referred To Contact Cardiovascular Disease Jerardo Buckley M.D., Ph.D. [address] [place] [phone] [facility] Referral ID Status Reason Start Date Expiration Date Visits Re quested Visits Authorized [id number] Closed 11/03/2023 11/02/2026 1 1 Encounter Details Date Type Department Care Team (Latest Contact Info) Description 07/18/2024 11:00 AM CDT Office Visit Department of Cardiovascular Medicine in [place], [place] [address] [place] [phone] Jerardo Buckley M.D., Ph.D. [address] [place] [phone] Obesity Body Mass Index 30-39.9 Adult (Primary Dx); Atrial Fibrillation Paroxysmal (HCC) Social History Tobacco [...] week 02/25/2022 How often do you attend [facility] or rastafari services? More than 4 times per year 02/25/2022 Do you belong to any clubs o r organizations such as catholic groups, unions, fraternal or athletic groups, or [...] Answer Date Recorded PHQ-2 Score 3 04/26/2024 [facility] of Occupat ional Health - Occupational Stress [...] your living situation today? I have a [facility] place to live 05/26/2023 Education Answer Date Recorded What is the highest level of school you have completed or the highest degree you have received? Master's degree (e.g., MA, MS, Tacho, MEd, LINE OUT WORKER, EARLE) 06/27/2019 Sex and Gender Information Value Date Recorded Sex Assigned at Female 11/24/2017 7:34 PM PROGRAM MANAGER RN Gender Identity Female 05/03/2021 11:34 AM CDT Sexual Orientation Straight 05/03/2021 11 :34 AM CDT documented as of this encounter Last Filed Vital Signs Vital Sign Reading Time Taken Comments Blood Pressure 121/76 07/18/2024 10:46 AM CDT Pulse 80 07/18/2024 10:46 AM CDT Temperature - - Respiratory Rate - - Oxygen Saturation - - Inhaled Oxygen Concentration - - Weight 93.1 kg (205 lb 4 oz) 07/18/2024 10:46 AM CDT Height 155.4 cm (5' 1.18) 07/18/2024 10:46 AM C DT Body Mass Index 38.55 07/18/2024 10:46 AM CDT documented in this encounter Consult Notes * Jerardo Buckley M.D., Ph.D. - 07/18/2024 11:00 AM CDT SUBJECTIVE EP Clinic. REASON FOR CONSULT Atrial fibrillation. HISTORY OF PRESENT ILLNESS I visited with Mrs. Coleman in [facility] today. Mrs. Coleman is a 79-year-old woman with history of hypertension, sleep apnea, and atrial fibrillation. She underwent catheter ablation for atrial fibrillation with a cryoballoon in 2013 and with radiofrequency ablation in 2014. She has been taki ng sotalol for the past 6 years to minimize recurrent atrial arrhythmias. She previously associatedEliquis and Xarelto with fatigue, and she is therefore taking warfarin for stroke prevention. Because of fatigue, she transitioned from sotalol to dofetilide in July 2023. She has had no recent episodes of loss of consciousness. She is experiencing symptomatic atrial fibrillation a few times per month. These episodes largely arise during the day when she is awake. OBJECTIVE DIAGNOSTICS Laboratory studies from July 03, 2024, remarkable for an INR of 2.8. ECG from July 11, 2024, showed sinus bradycardia at 54 beats per minute with a corrected QT interval of 440 milliseconds. Holter monitor from July 12, 2024, showed predominantly sinus rhythm with rates ranging from 54 to 89 beats per minute with an average heart rate of 62 beats per minute. There were relatively infrequent PVCs with no sustained ventricular arrhythmias. PAC frequency was less than 1%. ASSESSMENT / PLAN #1 Atrial fibrillation #2 Hypertension #3 Sleep apnea Mrs. Coleman's atrial fibrillation is occurring relatively frequently despite ongoing treatment with dofetilide and despite ongoing treatment of her sleep apnea. We revisited treatment options for her atrial fibrillation. Options that we discussed included pharmacologic rate control, pharmacologic rhythm control, and catheter ablation. Mrs. Coleman indicated a preference for catheter ablation, and wewill make arrangements accordingly. We discussed ablation modalities including radiofrequency ablation, cryoablation, and pulsed field ablation, and we will plan to use pulsed field ablation for 's ablation. She will continue to take sotalol and warfarin. As noted above, she previously did not tolerate Eliquis or Xarelto because of associated fatigue. I advised Mrs. Coleman that she wouldbenefit from weight loss, and she has expressed a desire to be seen in the Cardiometabolic Clinic. I submitted a request for this. Weight loss will likely decrease her tendency to experience recurrent atrial fibrillation. Total Time: 40 minutes. Counseling Time: 30 minutes. Jerardo Buckley M.D., Ph.D. CT CT Job ID: [id number] documented in this encounter Plan of Treatment Upcoming Encounters Date Type Department Care Team (Latest Contact Info) Description 08/28/2024 8:30 AM CDT Anticoagulation Visit Department of Anticoagulation in [place] [address] [place] [address] Emilia Lincoln M.D. [address] [place] [phone] Scheduled Orders Name Type Priority Associated Diagnoses Orde r Schedule S-TSH (Thyroid-Stimulating Hormone - Sensitive) Lab Routine Atrial Fibrillation Paroxysmal (HCC) Expected: 03/17/2025, Expires: 10/17/2025 Creatinine with Estimated GFR Lab Routine Atrial Fibrillation Paroxysmal (HCC) Expected: 03/17/2025, Expires: 07/18/2025 Potassium Lab Routine Atrial Fibrillation Paroxysmal (HCC) Expected: 03/17/2025, Expires: 07/18/2025 ECG Heart rhythm monitor (Holter) Cardiac Services Routine Atrial Fibrillation Paroxysmal (HCC) Expected: 03/17/2025, Expires: 01/04/2027 ECG 12 Lead ECG Routine Atrial Fibrillation Paroxysmal (HCC) Expected: 03/17/2025, Expires: 01/04/2027 Scheduled Referrals Name Type Priority Associated Diagnoses Order Schedule Cardiovascular Disease office visit (clinic) Outpatient Referral Routine Expect ed: 03/17/2025, Expires: 01/04/2027 documented as of this encounter Visit Diagnoses Diagnosis Obesity Body Mass Index 30-39.9 Adult- Primary Atrial Fibrillation Paroxysmal (HCC) documented in this encounter Additional Health Concerns Assessment Noted Time PHQ-9 Depression Total Score: 8 04/26/20 24 10:43 AM CDT documented as of this encounter Care Teams Embroidery Specialist Relationship Specialty Start Date End Date Emilia Lincoln M.D. [address] [place] [phone] PCP - General Family Medicine 08/13/23 documented as of this encounter
--- OUTSIDE RECORDS SUMMARY | 2024-08-10 09:23 | XMS_ITS | Encounter Summary ---
Author Organization [facility] Address [address] [place] [address] Care Team Providers Care Staff Auditor Name Role Phone Emilia Lincoln M.D. Primary Care Provider +1- [phone] Reason for Visit * Outpatient (Routine) - Authorized Specialty Diagnoses / Procedures Referred By Contac t Referred To Contact Anticoagulation Emilia Lincoln M.D. [address] [place] [phone] [facility] Referral ID Status Reason Start Date Expiration Date V isits Requested Visits Authorized [id number] Authorized 05/15/2024 11/14/2025 300 300 Encounter Details Date Type Department Care Team (Latest Contact Info) Description 07/24/2024 10:45 AM CDT Anticoagulation Visit Department of Anticoagulation in [place], [place] [address] [place] [address] Emilia Lincoln M.D. 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 More than 4 times per year [...] Answer Date Recorded PHQ-2 Score 3 04/26/2024 [facility] of Occupat ional Health - Occupational Stress [...] your living situation today? I have a [facility] place to live 05/26/2023 Education Answer Date Recorded What is the highest level of school you have completed or the highest degree you have received? Master's degree (e.g., MA, MS, Tacho, MEd, LARD MIXER, EARLE) 06/27/2019 Sex and Gender Information Value Date Recorded Sex Assigned at Female 11/24/2017 7:34 PM STAFF CERTIFIED NURSE MIDWIFE Gender Identity Female 05/03/2021 11:34 AM CDT Sexual Orientation Straight 05/03/2021 11 :34 AM CDT documented as of this encounter Patient Instructions * Patient Instructions* Becky Howard R.N. - 07/24/2024 10:45 AM CDT The day before your next INR review you will receive a message via Patient Online Service (portal) asking you to report your INR results and complete an attached questionnaire. Your INR is low placing you at increased risk for clotting. Please refer to the attached anticoagulation visit summary for a list of reasons to notify your anticoagulation team or seek emergency assistance. Please continue to test your INR weekly and contact the anticoagulation clinic on the day oftesting if your INR falls outside of goal range or if your INR changes by 1.0 or greater in a week.You will need to call the Anticoagulation Program for warfarin dosing at the scheduled time for your nurse visit, as indicated on your Patient Appointment Guide (PAG). To reschedule your appointment or for questions about your warfarin, please call Primary Care Anticoagulation Program at [phone] from 7:30 am to 4:30 pm. Wednesday-Wednesday [...] if you start any herbal or other nlrk-jdh-wstfloq product (check with your doctor, a nurse, [...] Progress Notes * Becky Howard R.N. - 07/24/2024 10:45 AM CDT Warfarin Maintenance Nursing Protocol Goal Range 2.0-3.0 (version approved 12/2021) Visit Type: Telephone and Home/Self Test INR Primary reason for visit: Home INR weekly INR, out of range Information provided by:patient INR result: 1.8 Goal range: 2.0-3.0 Inclusion Criteria: All inclusion [...] Previous INR was therapeutic. Today???s INR is Subtherapeutic, Causes: Unknown. Dosing and follow up recommendation: Protocol dosing range for INR 1.8-1.9: Consult required due to indication: no. 1st INR in this range. No change in weekly dose per protocol. Currently bridging? no. Next INR in 7 [...] CDT Anticoagulation Visit Department of Anticoagulation in [place], [place] [address] [place] [address] Emilia Lincoln M.D. [address] [place] [phone] documented as of this encounter Procedures Procedure Name Priority Date/Time Associated Diagnosis Comments PROTHROMBIN TIME (PT), P Routine 07/24/2024 PROTHROMBIN TIME (PT), P Routine 07/17/2024 PROTHROMBIN TIME (PT), P Routine 07/10/2024 documented in this encounter Results * Prothrombin Time (PT) (07/24/2024) EXT INR 1.80 PATIENT PO INT OF CARE DEVICE Blood (Blood, Venous) 07/24/2024 Historical Provider LAB BLOOD ADD-ON PATIENT POINT OF CARE DEVICE * Prothrombin Time (PT) (07/17/2024) EXT INR 2.40 PATIENT PO INT OF CARE DEVICE Blood (Blood, Venous) 07/17/2024 Historical Provider LAB BLOOD ADD-ON PATIENT POINT OF CARE DEVICE * Prothrombin Time (PT) (07/10/2024) EXT INR 2.30 PATIENT PO INT OF CARE DEVICE Blood (Blood, Venous) 07/10/2024 Historical Provider LAB BLOOD ADD-ON PATIENT POINT OF CARE DEVICE documented in this encounter Visit Diagnoses Diagnosis Thrombosis Deep Vein Personal History- Primary 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 [address] [place] [phone] PCP - General Family Medicine 08/13/23 documented as of this encounter
--- OUTSIDE RECORDS SUMMARY | 2024-08-10 09:23 | XMS_ITS | Encounter Summary ---
Author Organization [facility] Address [address] [place] [address] Care Team Providers Care District Adviser Name Role Phone Emilia Lincoln M.D. Primary Care Provider +1- [phone] Reason for Referral * Outpatient (Routine) - Authorized Specialty Diagnoses / Procedures Referred By Evie saxena Referred To Contact Anticoagulation Emilia Lincoln M.D. [address] [phone] [facility] Referral ID Status Reason Start Date Expiration Date V isits Requested Visits Authorized [id number] Authorized 07/31/2024 01/30/2026 1 1 Scheduling Instructions 4 weeks Reason for Visit * Outpatient (Routine) - Closed Specialty Diagnoses / Procedures Referred By Evie saxena Referred To Contact Anticoagulation Diagnoses Thrombosis Deep Vein Personal History Half-Way (Current) Anticoagulant Treatment Monitoring For Therapeutic Drug Therapy Atrial Fibrillation Paroxysmal (HCC) Emilia Lincoln M.D. [address] [phone] [facility] Referral ID Status Reason Start Date Expiration Date Visits Re quested Visits Authorized [id number] Closed 07/03/2024 01/02/2026 1 1 Encounter Details Date Type Department Care Team (Latest Contact Info) Description 07/31/2024 9:45 AM CDT Anticoagulation Visit Department of Anticoagulation in [place], [place] [address] [place] [address] Emilia Lincoln M.D. [address] [place] [phone] Thrombosis Deep Vein Personal History; Half-Way (Current) Anticoagulant Treatment; Monitoring For Therapeutic [...] often do you attend chur ch or buddhist services? More than 4 times per year 02/25/2022 Do you belong to any clubs o r organizations such as confucianism groups, unions, fraternal or athletic groups, or [...] Answer Date Recorded PHQ-2 Score 3 04/26/2024 [facility] of Occupat ional Health - Occupational Stress [...] your living situation today? I have a [place] place to live 05/26/2023 Education Answer Date Recorded What is the highest level of school you have completed or the highest degree you have received? Master's degree (e.g., MA, MS, Tacho, MEd, MIS DIRECTOR, EARLE) 06/27/2019 Sex and Gender Information Value Date Recorded Sex Assigned at Female 11/24/2017 7:34 PM INGREDIENT SCALER Gender Identity Female 05/03/2021 11:34 AM CDT Sexual Orientation Straight 05/03/2021 11 :34 AM CDT documented as of this encounter Patient Instructions * Patient Instructions* Becky Howard, R.N. - 07/31/2024 9:45 AM CDT The day before your next INR review you will receive a message via Patient [facility] (portal) asking you to report your [...] please call Primary Care Anticoagulation Program at [phone] from 7:30 am to 4:30 pm. Wednesday-Wednesday [...] if you start any herbal or other afcn-eom-gwkgqfd product (check with your doctor, a nurse, [...] Progress Notes * Becky Howard R.N. - 07/31/2024 9:45 AM CDT Warfarin Maintenance Nursing Protocol Goal Range 2.0-3.0 (version approved 12/2021) Visit Type: Telephone and Home/Self Test INR Primary reason for visit: Home INR Monthly INR review Information provided by:patient INR result: 2.0 Goal range: 2.0-3.0 Inclusion Criteria: All inclusion [...] INRs weekly on Wednesday Previous INR was subtherapeutic. Today???s INR is Therapeutic. Dosing and follow [...] CDT Anticoagulation Visit Department of Anticoagulation in [address] [phone] Emilia Lincoln M.D. [address] [phone] Scheduled Referrals Name Type Priority Associated Diagnoses Order Schedule Anticoagulation nurse visit (clinic) Outpatient Referral Routine Expected: 08/28/2024, Expires: 10/30/2025 documented as of this encounter Procedures Procedure Name Priority Date/Time Associated Diagnosis Comments PROTHROMBIN TIME (PT), P Routine 07/31/2024 documented in this encounter Results * Prothrombin Time (PT) (07/31/2024) EXT INR 2.00 PATIENT PO INT OF CARE DEVICE Blood (Blood, Venous) 07/31/2024 Historical Provider LAB BLOOD ADD-ON PATIENT POINT OF CARE DEVICE documented in this encounter Visit Diagnoses Diagnosis Thrombosis Deep Vein Personal History Half-Way (Current) Anticoagulant Treatment Monitoring For Therapeutic Drug Therapy Atrial Fibrillation Paroxysmal (HCC) documented in this encounter Additional Health Concerns Assessment Noted Time PHQ-9 Depression Total Score: 8 04/26/20 24 10:43 AM CDT documented as of this encounter Care Teams District Adviser Relationship Specialty Start Date End Date Emilia Lincoln M.D. [address] [phone] PCP - General Family Medicine 08/13/23 documented as of this encounter
--- OUTSIDE RECORDS SUMMARY | 2024-08-10 09:23 | XMS_ITS ---
Author Organization [facility] Address [address] [place] [address] Care Team Providers Care Delicatessen Store Manager Name Role Phone Unavailable Unavailable Unavailable Surgery Details Not on file Complications Check Surgery Details section. Procedure Estimated Blood Loss Check Surgery Details section. Procedure Findings Check Surgery Details section. Procedure Specimens Taken Check Surgery Details section.
--- OUTSIDE RECORDS SUMMARY | 2024-08-10 09:23 | XMS_ITS | Encounter Summary ---
Author Organization [facility] Address [address] [place] [address] Care Team Providers Care Analytics Architect Name Role Phone Emilia Lincoln M.D. Primary Care Provider +1- [phone] Reason for Referral * Outpatient (Routine) - Authorized Specialty Diagnoses / Procedures Referred By Contac t Referred To Contact Diagnoses Atrial Fibrillation Paroxysmal (HCC) Procedures ECG Heart rhythm monitor (Holter) Jerardo Buckley M.D., Ph.D. [address] [place] [address] [facility] Referral ID Status Reason Start Date Expiration Date V isits Requested Visits Authorized [id number] Authorized 11/03/2023 11/02/2024 1 1 Reason for Visit * Outpatient (Routine) - Authorized Specialty Diagnoses / Procedures Referred By Contac t Referred To Contact Diagnoses Atrial Fibrillation Paroxysmal (HCC) Procedures ECG Heart rhythm monitor (Holter) Jerardo Buckley M.D., Ph.D. [address] [place] [phone] [facility] Referral ID Status Reason Start Date Expiration Date V isits Requested Visits Authorized [id number] Authorized 11/03/2023 11/02/2024 1 1 Encounter Details Date Type Department Care Team (Latest Contact Info) Description 07/11/2024 2:20 PM CDT - 07/11/2024 11:59 PM CDT Hospital Encounter Department of Cardiovascular Diseases in [place], [place] [address] [place] [address] Jerardo Buckley M.D., Ph.D. [address] [place] [phone] Atrial Fibrillation Paroxysmal (HCC) Discharge Disposition: Home [...] often do you attend chur ch or scientologist services? More than 4 times per year 02/25/2022 Do you belong to any clubs o r organizations such as voodoo groups, unions, fraternal or athletic groups, or [...] Answer Date Recorded PHQ-2 Score 3 04/26/2024 [facility] of Occupat ional [facility] - Occupational Stress Questionnaire Answer Date [...] your living situation today? I [facility] a [facility] place to live 05/26/2023 Education Answer Date Recorded What is the highest level of school you have completed or the highest degree you have received? Master's degree (e.g., MA, MS, Tacho, MEd, TUMBLING MACHINE OPERATOR, EARLE) 06/27/2019 Sex and Gender Information Value Date Recorded Sex Assigned at Female 11/24/2017 7:34 PM NEUROUROLOGIST Gender Identity Female 05/03/2021 11:34 AM CDT Sexual Orientation Straight 05/03/2021 11 :34 AM CDT documented as of this encounter Medications at Time of Discharge Medication Sig Dispensed Refills Start Date End Date atorvastatin (Lipitor) 10 mg tablet Take 10 mg by mouth daily. cholecalciferol, vitamin D3, 25 mcg (1,000 Unit) [...] (COUMADIN) 5 mg tabletIndications:Atr ial Fibrillation Paroxysmal (HCC),Penitentiary (Current) Anticoagulant Treatment,Thrombosis Deep Vein Acute Calf [...] CDT Anticoagulation Visit Department of Anticoagulation in [place], [place] [address] [place] [address] Emilia Lincoln M.D. [address] [phone] documented as of this encounter Procedures Procedure Name Priority Date/Time Associated Diagnosis Comments HOLTER MONITOR - IN CLINIC SECURITY ALARM TECHNICIAN Routine 07/12/2024 11:16 AM CDT Atrial Fibrillation Paroxysmal (HCC) documented in this encounter Results * HOLTER MONITOR - IN CLINIC SECURITY ALARM TECHNICIAN (07/12/2024 11:16 AM CDT) Min Heart Rate [...] Duration 0 duration INFOBION IC MOME AF [place] 0 percent INFOBIONIC MOME Symptom Count 0 [...] complexes. 4. No symptomatic events were noted. Nuclear Powerplant Mechanic Helper: EUNICE Aguilera / EUNICE Cardoza Procedure Note [...] complexes. 4. No symptomatic events were noted. Nuclear Powerplant Mechanic Helper: EUNICE Aguilera / EUNICE Cardoza Jerardo Buckley M.D., Ph.D. CV CARDIAC S ERVICES PROCEDURES AMAN CHAU documented in this encounter Visit Diagnoses Diagnosis Atrial Fibrillation Paroxysmal (HCC) documented in this encounter Additional Health Concerns Assessment Noted Time PHQ-9 Depression Total Score: 8 04/26/20 24 10:43 AM CDT documented as of this encounter Care Teams Analytics Architect Relationship Specialty Start Date End Date Emilia Lincoln M.D. [address] [place] [phone] PCP - General Family Medicine 08/13/23 documented as of this encounter
--- OUTSIDE RECORDS SUMMARY | 2024-08-10 09:24 | XMS_ITS | Encounter Summary ---
Author Organization [facility] Address [address] [place] [id number] Care Team Providers Care Payroll Processor Name Role Phone Emilia Lincoln M.D. Primary Care Provider +1- [phone] Reason for Visit * Outpatient (Routine) - Closed Specialty Diagnoses / Procedures Referred By Evie saxena Referred To Contact Sleep Medicine Fede Palacios M.D. [address] [place] [phone] Storm Mcgee M.D. [address] [place] [phone] Referral ID Status Reason Start Date Expiration Date Visits Re quested Visits Authorized [id number] Closed 11/17/2023 11/16/2026 1 1 Encounter Details Date Type Department Care Team (Late st Contact Info) Description 05/25/2024 3:30 PM CDT Office Visit [facility] [place], [place] [address] [place] [phone] Silvino Pineda D.O., M.S. [address] [place] [phone] Obstructive Sleep Apnea Adult (Primary Dx) Social History Tobacco Use Types [...] How often do you attend chur or christianity services? More than 4 times per year 02/25/2022 Do you belong to any clubs o r organizations such as presybeterian groups, unions, fraternal or athletic groups, or [...] Answer Date Recorded PHQ-2 Score 3 04/26/2024 [facility] - Occupational Stress Questionnaire Answer Date [...] degree (e.g., JEAN CLAUDE, MS, Tacho, MEd, ADVERTISING STATISTICAL CLERK, EARLE) 06/27/2019 Sex and Gender Information Value Date Recorded Sex Assigned at Female 11/24/2017 7:34 PM METAL CLEANER Gender Identity Female 05/03/2021 11:34 AM CDT Sexual Orientation Straight 05/03/2021 11 :34 AM CDT documented as of this encounter Progress Notes * Silvino Pineda D.O., M.S. - 05/25/2024 3:30 PM CDT Images from the original note were not included. SUBJECTIVE The patient is seen for follow-up of re-initiation of PAP therapy for obstructive sleep apnea. I last saw her in 2020 when she was not using PAP treatment. She more recently underwent repeat testing confirming mild STANLEY. She was prescribed auto PAP. This time around, she feels like she is acclimating better than she has in the past. She is using a full face mask with humidification but might try a nasal pillow. She says she's not as fatigued: and doesn't fall asleep as easily in the middle of the day. All of this is in the context of her proclamation that my circadian rhythm has been off for years. Overall, things seem to be a bit better; usual bedtime is midnight, wake up time 0800. She does take Ambien 5 mg every night and wonders about that going forward. 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 I encouraged her to give the nasal pillows a try to see if she likes that better than the FFM. We talked about routine equipment replacement. As for hypnotics, I suggested that long-term use is typically not indicated. I'd worry about increasing risk for side effects with aging. I suggested she decrease to a half-tablet (2.5 mg) for a period of time before then going to a prn mode of use. documented in this encounter Plan of Treatment Upcoming Encounters Date Type Department Care Team (Latest Contact Info) Description 08/28/2024 8:30 AM CDT Anticoagulation Visit Department of Anticoagulation in [place], [place] [address] [place] [address] Emilia Lincoln M.D. [address] [phone] documented as of this encounter Visit Diagnoses Diagnosis Obstructive Sleep Apnea Adult- Primary documented in this encounter Additional Health Concerns Assessment Noted Time PHQ-9 Depression Total Score: 8 04/26/20 24 10:43 AM CDT documented as of this encounter Care Teams Payroll Processor Relationship Specialty Start Date End Date Emilia Lincoln M.D. [address] [place] [phone] PCP - General Family Medicine 08/13/23 documented as of this encounter
--- OUTSIDE RECORDS SUMMARY | 2024-08-10 09:24 | XMS_ITS | Encounter Summary ---
Author Organization [facility] Address [address] [place] [address] Care Team Providers Care Policy Cancellation Clerk Name Role Phone Emilia Lincoln M.D. 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 [address] [place] [phone] [facility] Referral ID Status Reason Start Date Expiration Date Visits Re quested Visits Authorized [id number] Closed 06/12/2024 12/12/2025 1 1 Encounter Details Date Type Department Care Team (Latest Contact Info) Description 07/03/2024 8:15 AM CDT Anticoagulation Visit Department of Anticoagulation in [place], [place] [address] [place] [address] Emilia Lincoln M.D. [address] [place] [phone] Thrombosis Deep Vein Personal History; Intermediate (Current) Anticoagulant Treatment; Monitoring For Therapeutic Drug [...] often do you attend chur ch or lutheran services? More than 4 times per year [...] Recorded PHQ-2 Score 3 04/26/2024 [facility] - Occupational [...] Master's degree (e.g., MA, MS, Tacho, MEd, DIRECTOR OF FINANCIAL REPORTING, EARLE) 06/27/2019 Sex and Gender Information Value Date Recorded Sex Assigned at Female 11/24/2017 7:34 PM EMERGENCY CARE TECH Gender Identity Female 05/03/2021 11:34 AM CDT Sexual Orientation Straight 05/03/2021 11 :34 AM CDT documented as of this encounter Patient Instructions * Patient Instructions* Jacquie Chavis R.N. - 07/03/2024 8:15 AM CDT The day before your next INR review you will receive a message via Patient [employer] Service (portal) asking you to report your [...] please call Primary Care Anticoagulation Program at [phone] from 7:30 am to 4:30 pm. Wednesday-Wednesday [...] if you start any herbal or other wubm-llz-igxhiqw product (check with your doctor, a nurse, or pharmacist). If you change your diet significantly. If you decide to stop or start using tobacco or alcohol. If you notice unusual bruising or bleeding. If you notice dark, tarry, or bright red stools or blood in your urine. If you have a painful and swollen calf. documented in this encounter Progress Notes * Jacquie Chavis R.N. - 07/03/2024 8:15 AM CDT Warfarin Maintenance Nursing Protocol Goal Range 2.0-3.0 (version approved 12/2021) Visit Type: Telephone, Home/Self Test INR , and Patient Online Services Primary reason for visit: Home INR Monthly INR review Information provided by:patient INR result: 2.8 Goal range: 2.0-3.0 Inclusion Criteria: All inclusion criteria met. Proceeded to exclusion criteria. Exclusion Criteria: Section 1: No Section 1 exclusion criteria, proceeded to Section 2. Section 2: No Section 2 exclusion criteria, proceeded to screening criteria. Screening Criteria: Patient has started, stopped, or has had a dose adjustment of medication: yes. Within last 4 weeks.Medication: Atorvastatin was started on 06/05/2024. Medication not on Appendix A. Proceeded to maintenance warfarin dosing and follow-up. Patient is currently enrolled in Home INR Program. Proceeded to maintenance warfarin dosing and follow-up, but follow-up INR not to extend beyond Home INR follow-up order. Additional Info: Home INR Program: Patient performs routine INRs weekly on Wednesday Next routine monthly appointment for INR review (date/time): 07/31/2024. Patient will initiate contact to Anticoagulation Service if INR out of goal range on day of Home INR check OR if INR is higher or lower than last INR by 1 or more. Adherence/compliance/safety specific to Home INR program concern: patient did not report out of range INR reading on 06/26/2024. Warfarin Management Screening Questionnaire completed. Started Atorvastatin 06/05/2024. Reminded to call when INR is out of range. Previous INR was supratherapeutic. Today???s INR is Therapeutic. Dosing and follow up recommendation: Protocol dosing range for INR 2.0-3.0: No change in weekly dose. Currently bridging? no. Next INR in every 7 days per positive screening criteria. Additional dosing or [...] CDT Anticoagulation Visit Department of Anticoagulation in [place], [place] [address] [place] [address] Emilia Lincoln M.D. 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 Monitoring For Therapeutic Drug Therapy Atrial Fibrillation Paroxysmal (HCC) Expected: 07/31/2024, Expires: 10/03/2025 documented as of this encounter Procedures Procedure Name Priority Date/Time Associated Diagnosis Comments PROTHROMBIN TIME (PT), P Routine 07/03/2024 PROTHROMBIN TIME (PT), P Routine 06/26/2024 PROTHROMBIN TIME (PT), P Routine 06/19/2024 documented in this encounter Results * Prothrombin Time (PT) (07/03/2024) EXT INR 2.80 PATIENT PO INT OF CARE DEVICE Comment:SELF Blood (Blood, Venous) Historical Provider LAB BLOOD ADD-ON Performing Organization Address [facility]/ZIP Co de Phone Number PATIENT POINT OF CARE DEVICE * Prothrombin Time (PT) (06/26/2024) EXT INR 3.10 PATIENT PO INT OF CARE DEVICE Comment:SELF - did not repor t until 07/03/2024 Blood (Blood, Venous) Historical Provider LAB BLOOD ADD-ON Performing Organization Address [facility]/ZIP Co de Phone Number PATIENT POINT OF CARE DEVICE * Prothrombin Time (PT) (06/19/2024) EXT INR 2.30 PATIENT PO INT OF CARE DEVICE Comment:SELF Blood (Blood, Venous) Historical Provider LAB BLOOD ADD-ON Performing Organization Address [facility] Co de Phone Number PATIENT POINT OF CARE DEVICE documented in this encounter Visit Diagnoses Diagnosis Thrombosis Deep Vein Personal History Intermediate (Current) Anticoagulant Treatment Monitoring For Therapeutic Drug Therapy Atrial Fibrillation Paroxysmal (HCC) documented in this encounter Additional Health Concerns Assessment Noted Time PHQ-9 Depression Total Score: 8 04/26/20 24 10:43 AM CDT documented as of this encounter Care Teams Policy Cancellation Clerk Relationship Specialty Start Date End Date Emilia Lincoln M.D. [address] [phone] PCP - General Family Medicine 08/13/23 documented as of this encounter
--- OUTSIDE RECORDS SUMMARY | 2024-08-10 09:24 | XMS_ITS | Encounter Summary ---
Author Organization [facility] Address [address] [place] [address] Care Team Providers Care Truck Switcher Name Role Phone Emilia Lincoln M.D. Primary Care Provider +1- [phone] Reason for Referral * Outpatient (Routine) - Closed Specialty Diagnoses / Procedures Referred By Contac t Referred To Contact Emilia Crouch M.D. [phone] [place] [phone] [facility] Referral ID Status Reason Start Date Expiration Date Visits Re quested Visits Authorized [id number] Closed 05/08/2024 11/07/2025 1 1 Reason for Visit * Outpatient (Routine) - Closed Specialty Diagnoses / Procedures Referred By Contac t Referred To Contact Emilia Crouch M.D. [phone] [place] [phone] [facility] Referral ID Status Reason Start Date Expiration Date Visits Re quested Visits Authorized [id number] Closed 04/11/2024 10/11/2025 1 1 Encounter Details Date Type Department Care Team (Latest Contact Info) Description 05/08/2024 2:00 PM CDT Anticoagulation Visit Department of Anticoagulation in [place], [place] [address] [place] [address] Emilia Lincoln M.D. 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 - 05/08/2024 2:00 PM CDT The day before your next INR review you will receive a message via Patient [employer] Service (portal) asking you to report your [...] please call Primary Care Anticoagulation Program at [phone] from 7:30 am to 4:30 pm. Wednesday-Wednesday [...] if you start any herbal or other ksxu-sdp-mrtxyju product (check with your doctor, a nurse, [...] CDT Anticoagulation Visit Department of Anticoagulation in [place] [address] [place] [address] Emilia Lincoln M.D. [address] [place] [phone] Scheduled Referrals Name Type Priority Associated Diagnoses [...] Provider LAB BLOOD ADD-ON Performing Organization Address [facility]/ZIP Co de Phone Number PATIENT POINT OF CARE DEVICE * Prothrombin Time (PT) (04/17/2024) EXT INR 2.90 PATIENT PO INT OF CARE DEVICE Comment:self Blood (Blood, Venous) Historical Provider LAB BLOOD ADD-ON PATIENT POINT OF CARE DEVICE documented in this encounter Visit Diagnoses Diagnosis Thrombosis Deep Vein Personal History- Primary Longterm (Current) Anticoagulant Treatment Monitoring For Therapeutic Drug Therapy Atrial Fibrillation Paroxysmal (HCC) documented in this encounter Additional Health Concerns Assessment Noted Time PHQ-9 Depression Total Score: 8 04/26/20 24 10:43 AM CDT documented as of this encounter Care Teams Truck Switcher Relationship Specialty Start Date End Date Emilia Lincoln M.D. [address] [place] [phone] PCP - General Family Medicine 08/13/23 documented as of this encounter
--- OUTSIDE RECORDS SUMMARY | 2024-08-10 09:24 | XMS_ITS | Encounter Summary ---
Author Organization [facility] Address [address] [place] [address] Care Team Providers Care Supervisor Tower Name Role Phone Emilia Lincoln M.D. Primary Care Provider +1- [phone] Reason for Referral * Outpatient (Routine) - Authorized Specialty Diagnoses / Procedures Referred By Eive saxena Referred To Contact Family Medicine Diagnoses Thrombosis Deep Vein Personal History Jail (Current) Anticoagulant Treatment Monitoring For Therapeutic Drug Therapy Atrial Fibrillation Paroxysmal (HCC) Emilia Lincoln M.D. [address] [place] [phone] [facility] Referral ID Status Reason Start Date Expiration Date V isits Requested Visits Authorized [id number] Authorized 06/12/2024 12/12/2025 1 1 Scheduling Instructions This gvla-zk-leav visit with your PCP is required by Medicare/insurance in order to begin and continue participation in a Primary Care chronic disease management program (i.e. anticoagulation, AMCC, IBH, etc.). You may see this referred to as CCM/CoCM. Reason for Visit * Reason Onset Date Comments Anticoagulation 01/24/2024 CCM Enrollment Encounter Details Date Type Department Care Team (Latest Contact Info) Description 01/24/2024 Clinical Communication Department of Anticoagulation in [place], [place] [address] [place] [address] Diane Marie, RHarmonyN. [address] [place] [address] Anticoagulation ([facility] Enrollment) Social History Tobacco Use Types [...] How often do you attend chur or anabaptism services? More than 4 times per year 02/25/2022 Do you belong to any clubs o r organizations such as adventism groups, unions, fraternal or athletic groups, or [...] Answer Date Recorded PHQ-2 Score 3 04/26/2024 [facility] - Occupational Stress Questionnaire Answer Date [...] Master's degree (e.g., MA, MS, Tacho, MEd, CHUCKER, EARLE) 06/27/2019 Sex and Gender Information Value Date Recorded Sex Assigned at Female 11/24/2017 7:34 PM CLAY MILLER Gender Identity Female 05/03/2021 11:34 AM CDT Sexual Orientation Straight 05/03/2021 11 :34 AM CDT documented as of this encounter Miscellaneous Notes * Addendum Note - Roxi Lam R.N. - 06/12/2024 4:23 PM CDTAddended by: ROXI LAM on: 06/12/2024 04:23 PM Modules accepted: Orders * Telephone Encounter - Diane Marie R.N. - 01/24/2024 2:24 PM CDT Consent for Chronic Care Management (CCM) requiring moderate or high complexity medical decision making. was obtained from the patient/patient's medical power of claims attorney. The patient/patient's medical power of claims attorney was informed that a charge, based on the level of service, will be billed to their insurance each month. Only one health care provider can provide these services at a time. Patients have the right to stop these services at any time by letting their care team know. The patient/patient's medical power of claims attorney can contact their insurance company if they have any questions on coverage or [facility] Patient Account Services if they have any questions about their bill. documented in this encounter Plan of Treatment Upcoming Encounters Date Type Department Care Team (Latest Contact Info) Description 08/28/2024 8:30 AM CDT Anticoagulation Visit Department of Anticoagulation in [place], [place] [address] [place] [address] Emilia Lincoln M.D. [address] [place] [phone] Scheduled Referrals Name Type Priority Associated Diagnoses Orde r Schedule Family Medicine office visit (clinic) Outpatient Referral Routine Thrombosis Deep Vein Personal History Jail (Current) Anticoagulant Treatment Monitoring For Therapeutic Drug Therapy Atrial Fibrillation Paroxysmal (HCC) 1 Occurrences starting 06/12/2024 until 09/12/2025 documented as of this encounter Visit Diagnoses Diagnosis Thrombosis Deep Vein Personal History- Primary Jail (Current) Anticoagulant Treatment Monitoring For Therapeutic Drug Therapy Atrial Fibrillation Paroxysmal (HCC) documented in this encounter Additional Health Concerns Assessment Noted Time PHQ-9 Depression Total Score: 3 10/27/20 23 8:30 PM CLAY MILLER documented as of this encounter Care Teams Supervisor Tower Relationship Specialty Start Date End Date Emilia Lincoln M.D. [address] [place] [phone] PCP - General Family Medicine 08/13/23 documented as of this encounter
--- OUTSIDE RECORDS SUMMARY | 2024-08-10 09:24 | XMS_ITS | Encounter Summary ---
Author Organization [facility] Address [address] [place] [address] Care Team Providers Care Ice Cream Maker Name Role Phone Emilia Lincoln M.D. Primary Care Provider +1- [phone] Reason for Visit * Outpatient (Routine) - Closed Specialty Diagnoses / Procedures Referred By Contmichael t Referred To Contact Anticoagulation Emilia Lincoln M.D. [address] [place] [phone] [facility] Referral ID Status Reason Start Date Expiration Date Visits Re quested Visits Authorized [id number] Closed 05/08/2024 11/07/2025 1 1 Encounter Details Date Type Department Care Team (Latest Contact Info) Description 2024 8:15 AM CDT Anticoagulation Visit Department of Anticoagulation in [place], [place] [address] [place] [phone] Emilia Lincoln M.D. [address] [place] [phone] Thrombosis Deep Vein Personal History (Primary Dx); Penitentiary (Current) Anticoagulant Treatment; Monitoring For Therapeutic Drug Therapy; Atrial Fibrillation Paroxysmal (HCC); Gastroesophageal Reflux Disease Without Esophagitis Social History Tobacco Use Types Packs/Day Years [...] week 02/25/2022 How often do you attend [facility] or jainism services? More than 4 times [...] Answer Date Recorded PHQ-2 Score 3 04/26/2024 [facility] - Occupational Stress [...] living situation today? I have a [facility] place to live 05/26/2023 Education Answer Date Recorded What is the highest level of school you have completed or the highest degree you have received? 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 - 2024 8:15 AM CDT The day before your [...] please call Primary Care Anticoagulation Program at [phone] from 7:30 am to 4:30 pm. Wednesday-Wednesday [...] if you start any herbal or other zffy-flx-qnbowmf product (check with your doctor, a nurse, or pharmacist). If you change your diet significantly. If you decide to stop or start using tobacco or alcohol. If you notice unusual bruising or bleeding. If you notice dark, tarry, or bright red stools or blood in your urine. If you have a painful and swollen calf. documented in this encounter Progress Notes * Maria E Lacy R.N. - 2024 8:15 AM CDT Warfarin Maintenance Nursing Protocol Goal Range 2.0-3.0 (version approved 12/2021) Visit Type: Telephone and Home/Self Test INR Primary reason for visit: Home INR weekly INR, routine f/u Information provided by:patient INR result: 2.1 Goal range: 2.0-3.0 Inclusion Criteria: All inclusion criteria met. Proceeded to exclusion criteria. Exclusion Criteria: Section 1: No Section 1 exclusion criteria, proceeded to Section 2. Section 2: No Section 2 exclusion criteria, proceeded to screening criteria. Screening Criteria: Patient within first 12 weeks of warfarin therapy: no Additional Info: Home INR Program: Patient performs routine INRs weekly on Wednesday Next routine monthly appointment for INR review (date/time): 06/12. Patient will initiate contact toAnticoagulation Service if INR out of goal range on day of Home INR check OR if INR is higher or lower than last INR by 1 or more. No changes to meds/diet or exercise. Took as directed per post op. Previous INR was supratherapeutic. Today???s INR is [...] CDT Anticoagulation Visit Department of Anticoagulation in [place], [place] [address] [place] [address] Emilia Lincoln M.D. [address] [place] [phone] documented as of this encounter Procedures Procedure Name Priority Date/Time Associated Diagnosis Comments PROTHROMBIN TIME (PT), P Routine 2024 documented in this encounter Results * Prothrombin Time (PT) (2024) EXT INR 2.10 2.00 - 3.00 PATIENT POINT OF CARE DEVICE Blood (Blood, Venous) Narrative Resulting Agency Comment hm Historical Provider LAB BLOOD ADD-ON PATIENT POINT OF CARE DEVICE documented in this encounter Visit Diagnoses Diagnosis Thrombosis Deep Vein Personal History- Primary Penitentiary (Current) Anticoagulant Treatment Monitoring For Therapeutic Drug Therapy Atrial Fibrillation Paroxysmal (HCC) Gastroesophageal Reflux Disease Without Esophagitis documented in this encounter Additional Health Concerns Assessment Noted Time PHQ-9 Depression Total Score: 8 04/26/20 24 10:43 AM CDT documented as of this encounter Care Teams Ice Cream Maker Relationship Specialty Start Date End Date Emilia Lincoln M.D. [address] [place] [phone] PCP - General Family Medicine 08/13/23 documented as of this encounter
--- OUTSIDE RECORDS SUMMARY | 2024-08-10 09:24 | XMS_ITS | Encounter Summary ---
Author Organization [facility] Address [address] [place] [phone] Care Team Providers Care Environment Friendly Landscape Designer Name Role Phone Eimlia Lincoln M.D. Primary Care Provider +1- [phone] Encounter Details Date Type Department Care Team (Late st Contact Info) Description 06/12/2024 Orders Only Department of Anticoagulation in [place], [place] [address] [place] [phone] Jacquie Chavis R.N. 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 More than 4 times per year 02/25/2022 Do you belong to any clubs o r organizations such as latter day groups, unions, fraternal or athletic groups, or [...] Answer Date Recorded PHQ-2 Score 3 04/26/2024 [facility] ional [facility] - Occupational [...] your living situation today? I have a [facility] place to live 05/26/2023 Education Answer Date Recorded What is the highest level of school you have completed or the highest degree you have received? Master's degree (e.g., MA, MS, Tacho, MEd, WELFARE ELIGIBILITY INTERVIEWER, EARLE) 06/27/2019 Sex and Gender Information Value Date Recorded Sex Assigned at Female 11/24/2017 7:34 PM MANAGER NIGHT Gender Identity Female 05/03/2021 11:34 AM CDT Sexual Orientation Straight 05/03/2021 11 :34 AM CDT documented as of this encounter Plan of Treatment Upcoming Encounters Date Type Department Care Team (Latest Contact Info) Description 08/28/2024 8:30 AM CDT Anticoagulation Visit Department of Anticoagulation in [place], [place] [address] [place] [address] [address] [phone] documented as of this encounter Visit Diagnoses Diagnosis Thrombosis Deep Vein Personal History- Primary Lead 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 [address] [place] [phone] PCP - General Family Medicine 08/13/23 documented as of this encounter
--- OUTSIDE RECORDS SUMMARY | 2024-08-10 09:24 | XMS_ITS | Encounter Summary ---
Author Organization [facility] Address [address] [place] [address] Care Team Providers Care Industry Analyst Name Role Phone Emilia Lincoln M.D. Primary Care Provider +1- [phone] Reason for Referral * Outpatient (Routine) - Authorized Specialty Diagnoses / Procedures Referred By Contac t Referred To Contact Emilia Crouch M.D. [address] [phone] [facility] Referral ID Status Reason Start Date Expiration Date V isits Requested Visits Authorized [id number] Authorized 05/15/2024 11/14/2025 300 300 Reason for Visit * Outpatient (Routine) - Closed Specialty Diagnoses / Procedures Referred By Contac t Referred To Contact Emilia Crouch M.D. [address] [place] [phone] [facility] Referral ID Status Reason Start Date Expiration Date Visits Re quested Visits Authorized [id number] Closed 05/08/2024 11/07/2025 1 1 Encounter Details Date Type Department Care Team (Latest Contact Info) Description 05/15/2024 1:15 PM CDT Anticoagulation Visit Department of Anticoagulation in [place], [place] [address] [place] [address] Emilia Lincoln M.D. [address] [phone] Thrombosis Deep Vein Personal History (Primary [...] How often do you attend chur or denominational services? 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 - 05/15/2024 1:15 PM CDT The day before your next INR review you will receive a message via Patient [facility] Service (portal) asking you to report your INR results and complete an attached questionnaire. Your INR is high placing you at increased risk for bleeding. Please refer to the attached anticoagulation visit [...] please call Primary Care Anticoagulation Program at [phone] from 7:30 am to 4:30 pm. Wednesday-Wednesday [...] if you start any herbal or other xylj-lgq-thmusmi product (check with your doctor, a nurse, or pharmacist). If you change your diet significantly. If you decide to stop or start using tobacco or alcohol. If you notice unusual bruising or bleeding. If you notice dark, tarry, or bright red stools or blood in your urine. If you have a painful and swollen calf. documented in this encounter Progress Notes * Tamela Barrett, Pharm.D., R.Ph. - 05/15/2024 1:15 PM CDT Anticoagulation plan around colonoscopy procedure on 05/22 in [place]: Bridging: not indicated. Anticoagulation Recommendations surrounding procedure: Date Warfarin Dose 05/17 Hold 7/4 Hold 7/5 Hold 7/6 Hold / Hold Day of Procedure 05/22 Restart in the evening IF ok with proceduralist. Take 5 mg 05/23-05/28 Take 5 mg daily 05/29 INR day Plan in table is based on holding warfarin for 5 days prior to procedure. Check INR on procedure day if desired by proceduralist. Warfarin will resume on evening of procedure, providing OK with proceduralist. See table for dosing. Tamela * Hansa Brown R.N. - 05/15/2024 1:15 PM CDT Warfarin Maintenance Nursing Protocol Goal Range 2.0-3.0 (version approved 12/2021) Visit Type: Telephone and Home/Self Test INR Primary reason for visit: Home INR weekly INR, out of range Information provided by:patient INR result: 3.1 Goal range: 2.0-3.0 Inclusion Criteria: All inclusion [...] to extend beyond Home INR follow-up order. Patient has had a change in diet, lifestyle, alcohol intake, tobacco habits, health status, hospitalization, or surgery in the last 3 days: yes. Alcohol intake change: had some alcohol. Proceeded to maintenance warfarin dosing and follow-up, but have patient return for follow-up INR in 7-10 days. Patient reports upcoming procedure or surgery within the next 60 days without documented plan for warfarin dosing: yes. Proceeded to maintenance dosing and follow-up. Initiate periprocedural protocolor consult provider for periprocedural dosing. Additional Info: Home INR Program: Patient performs routine INRs weekly on Wednesday Next routine monthly appointment for INR review (date/time): 05/29/24. Patient will initiate contactto Anticoagulation Service if INR out of goal range on day of Home INR check OR if INR is higher orlower than last INR by 1 or more. Previous INR was therapeutic. Today???s INR is Supratherapeutic, Causes: See above positive screening criteria/additional information sections.. Dosing and follow up recommendation: Protocol dosing range for INR 3.1-3.2: No change in weekly dose per protocol. Next INR in 7 days. per positive screening criteria. Reviewed plan for upcoming procedure 05/22/24. Additional dosing or follow-up information: Protocol completed. Per nursing judgment, provider consulted. Dosing per tracker. Next INR in 2 weeks per consult with [facility]tico[facility]. Pt is on injectable anticoagulant: No. Plan used: Consult. See Anticoagulation Track Calendar for dosing and plan details. Anticoagulation Visit Summary: Patient repeats back dosing instructions, date of next INR, and has no further questions at this time. Total time spent with patient: N/A * Matilde Cooper R.N. - 05/15/2024 1:15 PM CDT Patient called in regards to her Warfarin dose for today and is wondering if she can resume her past maintenance plan. States she accidentally missed her warfarin dose last Tuesday 05/08. Reed Barrett [facility] consulted, track updated. Pt repeats dose in understanding, AVS sent via POS. documented in this encounter Plan of Treatment Upcoming Encounters Date Type Department Care Team (Latest Contact Info) Description 08/28/2024 8:30 AM CDT Anticoagulation Visit Department of Anticoagulation in [place], [place] [address] [place] [address] Emilia Lincoln M.D. [address] [phone] Scheduled Referrals Name Type Priority Associated Diagnoses Order Schedule Anticoagulation nurse visit (clinic) Outpatient Referral Routine 300 Occurrences starting 05/15/2024 until 08/15/2025 documented as of this encounter Procedures Procedure Name Priority Date/Time Associated Diagnosis Comments PROTHROMBIN TIME (PT), P Routine 05/15/2024 documented in this encounter Results * Prothrombin Time (PT) (05/15/2024) EXT INR 3.10 PATIENT PO INT OF CARE DEVICE Blood (Blood, Venous) Emilia Lincoln M.D. LAB BLOOD ADD-ON PATIENT POINT OF CARE DEVICE documented in this encounter Visit Diagnoses Diagnosis Thrombosis Deep Vein Personal History- Primary Half-Way (Current) Anticoagulant Treatment Monitoring For Therapeutic Drug Therapy Atrial Fibrillation Paroxysmal (HCC) documented in this encounter Additional Health Concerns Assessment Noted Time PHQ-9 Depression Total Score: 8 04/26/20 24 10:43 AM CDT documented as of this encounter Care Teams Industry Analyst Relationship Specialty Start Date End Date Emilia Lincoln M.D. [address] [phone] PCP - General Family Medicine 08/13/23 documented as of this encounter
--- OUTSIDE RECORDS SUMMARY | 2024-08-10 09:24 | XMS_ITS | Encounter Summary ---
Author Organization [facility] Address [address] [place] [address] Care Team Providers Care Smoking Tobacco Cutter Operator Name Role Phone Emilia Lincoln M.D. Primary Care Provider +1- [phone] Reason for Visit * Reason Onset Date Comments Anticoagulation 05/04/2024 Lack of Engageme nt Encounter Details Date Type Department Care Team (Latest Contact Info) Description 05/04/2024 Clinical Communication Department of Anticoagulation in [place], [place] [address] [place] [address] Yun Lau Anticoagulation (Lack of Engagement) Social [...] How often do you attend chur or religion services? More than 4 times per year 02/25/2022 Do you belong to any clubs o r organizations such as yazidism groups, unions, fraternal or athletic groups, or [...] Answer Date Recorded PHQ-2 Score 3 04/26/2024 [facility] - Occupational Stress Questionnaire Answer Date [...] your living situation today? I have a [facility] place to live 05/26/2023 Education Answer Date Recorded What is the highest level of school you have completed or the highest degree you have received? 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 - 05/04/2024 3:07 PM CDT Side effects to Eliquis & Xarelto per 09-15-2018 note, so not doing a full assessment for switching to DOAC today. documented in this encounter Miscellaneous Notes * Telephone Encounter [...] time and assistance. Primary Care Anticoagulation Program [phone] documented in this encounter Plan of Treatment Upcoming Encounters Date Type Department Care Team (Latest Contact Info) Description 08/28/2024 8:30 AM CDT Anticoagulation Visit Department of Anticoagulation in [place] [address] [place] [address] Emilia Lincoln M.D. 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 [address] [place] [phone] PCP - General Family Medicine 08/13/23 documented as of this encounter
--- OUTSIDE RECORDS SUMMARY | 2024-08-10 09:24 | XMS_ITS | Encounter Summary ---
Author Organization [facility] Address [address] [place] [address] Care Team Providers Care Plastic Surgeon Name Role Phone Emilia Lincoln M.D. Primary Care Provider +1- [phone] Reason for Referral * Outpatient (Routine) - Closed Specialty Diagnoses / Procedures Referred By Contac t Referred To Contact Anticoagulation Diagnoses Thrombosis Deep Vein Personal History Online Marketer (Current) Anticoagulant Treatment Monitoring For Therapeutic Drug Therapy Atrial Fibrillation Paroxysmal (HCC) Emilia Lincoln M.D. [id number] [place] [phone] [facility] Referral ID Status Reason Start Date Expiration Date Visits Re quested Visits Authorized [id number] Closed 06/12/2024 12/12/2025 1 1 Reason for Visit * Outpatient (Routine) - Authorized Specialty Diagnoses / Procedures Referred By Contac t Referred To Contact Anticoagulation Emilia Lincoln M.D. [phone] [place] [phone] [facility] Referral ID Status Reason Start Date Expiration Date V isits Requested Visits Authorized [id number] Authorized 05/15/2024 11/14/2025 300 300 Encounter Details Date Type Department Care Team (Latest Contact Info) Description 06/12/2024 3:00 PM CDT Anticoagulation Visit Department of Anticoagulation in [place], [place] [address] [place] [address] Emilia Lincoln M.D. [address] [place] [phone] Thrombosis Deep Vein Personal History (Primary Dx); Group Home (Current) Anticoagulant Treatment; Monitoring For Therapeutic Drug [...] often do you attend chur ch or orthodox services? More than 4 times per [...] Answer Date Recorded PHQ-2 Score 3 04/26/2024 [facility] Occupat ional [facility] - Occupational Stress Questionnaire Answer Date [...] Master's degree (e.g., MA, MS, Tacho, MEd, BEAUTY CULTURIST, EARLE) 06/27/2019 Sex and Gender Information Value Date Recorded Sex Assigned at Female 11/24/2017 7:34 PM PART TIME Gender Identity Female 05/03/2021 11:34 AM CDT Sexual Orientation Straight 05/03/2021 11 :34 AM CDT documented as of this encounter Patient Instructions * Patient Instructions* Jacquie Chavis R.N. - 06/12/2024 3:00 PM CDT The day before your next INR review you will receive a message via Patient [employer] Service (portal) asking you to report your [...] please call Primary Care Anticoagulation Program at [phone] from 7:30 am to 4:30 pm. Wednesday-Wednesday [...] if you start any herbal or other orgc-zhs-ueoxdak product (check with your doctor, a nurse, [...] Progress Notes * Jacquie Chavis R.N. - 06/12/2024 3:00 PM CDT Warfarin Maintenance Nursing Protocol [...] medication: yes. Since last INR check. Medication: Atorvastatin was started on 06/09/2024. Medication not on Appendix A and per Micromedex, no interaction. Proceeded to maintenance warfarin dosing and follow-up. Patient is currently enrolled in Home INR Program. Proceeded to maintenance warfarin dosing and follow-up, but follow-up INR not to extend beyond Home INR follow-up order. Additional Info: Home INR Program: Patient performs routine INRs weekly on Wednesday Next routine monthly appointment for INR review (date/time): 06/26/2024. Patient will initiate contact to Anticoagulation Service if INR out of goal range on day of Home INR check OR if INR is higher or lower than last INR by 1 or more. Less greens in the last week. No change in a couple alcohol drinks per week. Started Atorvastatin 06/09/2024. Previous INR was therapeutic. Today???s INR is Supratherapeutic, Causes: Diet change: less greens in the last week . Dosing and follow up recommendation: Protocol dosing range for INR 3.1-3.2: No change in weekly dose per protocol. Next INR in every 7 days per [...] CDT Anticoagulation Visit Department of Anticoagulation in [place], [place] [address] [place] [address] Emilia Lincoln M.D. [address] [place] [phone] Scheduled Referrals Name Type Priority Associated Diagnoses Orde r Schedule Anticoagulation nurse visit (clinic) Outpatient Referral Routine Thrombosis Deep Vein Personal History Online Marketer (Current) Anticoagulant Treatment Monitoring For Therapeutic Drug Therapy Atrial Fibrillation Paroxysmal (HCC) Expected: 07/03/2024, Expires: 09/12/2025 documented as of this encounter Procedures Procedure Name Priority Date/Time Associated Diagnosis Comments PROTHROMBIN TIME (PT), P Routine 06/12/2024 PROTHROMBIN TIME (PT), P Routine 06/05/2024 documented in this encounter Results * Prothrombin Time (PT) (06/12/2024) EXT INR 3.10 PATIENT PO INT OF CARE DEVICE Comment:SELF Blood (Blood, Venous) Historical Provider LAB BLOOD ADD-ON PATIENT POINT OF CARE DEVICE * Prothrombin Time (PT) (06/05/2024) EXT INR 2.50 PATIENT PO INT OF CARE DEVICE Comment:SELF Blood (Blood, Venous) Historical Provider LAB BLOOD ADD-ON Performing Organization Address City/[facility]/ZIP Co de Phone Number PATIENT POINT OF CARE DEVICE documented in this encounter Visit Diagnoses Diagnosis Thrombosis Deep Vein Personal History- Primary Group Home (Current) Anticoagulant Treatment Monitoring For Therapeutic Drug Therapy Atrial Fibrillation Paroxysmal (HCC) documented in this encounter Additional Health Concerns Assessment Noted Time PHQ-9 Depression Total Score: 8 04/26/20 24 10:43 AM CDT documented as of this encounter Care Teams Plastic Surgeon Relationship Specialty Start Date End Date Emilia Lincoln M.D. [address] [place] [phone] PCP - General Family Medicine 08/13/23 documented as of this encounter
== END 2024-08-10 09:15 | disposition home or self-care (01) ==
LOC: MAMMO 09:15
PROVIDERS: PCP Nurse Practitioner Family; Visit Provider Nurse Practitioner Family
DX: Z12.31 Encounter for screening mammogram for malignant neoplasm of breast (principal); N63.10 Unspecified lump in the right breast, unspecified quadrant
CPT/HCPCS: 77063; 77067

== ENCOUNTER 2024-08-22 10:48 | Outpatient (CLI) | payer MEDICARE, SELFPAY ==
--- NOTE | 2024-08-22 11:00 | CRLHL7_ITS ---
For Patients: As a result of the Cures Act, medical imaging exams and procedure reports are released immediately into your electronic medical record. You may view this report before your referring provider. If you have questions, please contact your health care provider. RIGHT DIAGNOSTIC MAMMOGRAM WITH COMPUTER-AIDED DETECTION AND TOMOSYNTHESIS RIGHT BREAST ULTRASOUND CLINICAL HISTORY: RIGHT breast mass/asymmetry. COMPARISON: 08/10/2024. TECHNIQUE: Digital RIGHT mammogram in two projections. Computer-aided detection and tomosynthesis were used in this interpretation. Real-time ultrasound imaging of RIGHT breast with imaging documentation. BREAST COMPOSITION: There are scattered areas of fibroglandular density. FINDINGS: 3D spot compression CC/MLO RIGHT breast mammogram images submitted. Persistent nodular densities are present within the retroareolar tissues, upper-outer quadrant. No architectural distortion. Benign calcifications Targeted RIGHT breast ultrasound performed at 9 o`clock 2 cm from the nipple. In this location, there is a solid angular hypoechoic nodule measuring 8 x 5 x 6 mm and a second hypoechoic angular nodule measuring 5 x 5 x 6 mm. IMPRESSION: There are two suspicious solid nodules within the RIGHT breast 9 o`clock 2 cm from the nipple measuring 8 mm and 6 mm, located 3 mm apart. RECOMMENDATIONS: Ultrasound-guided core needle biopsy of both nodules. BI-RADS Category 4: Suspicious Results and recommendations discussed with the patient. A lay language report of this examination will be provided to the patient. Dictated by Jerardo Zarate MD @ 08/22/2024 12:52:17 PM /sp SP/Dictated by: Jerardo Zarate MD @ 08/22/2024 12:52:00 PM (Electronically Signed)
--- NOTE | 2024-08-22 11:30 | CRLHL7_ITS ---
For Patients: As a result of the Century Cures Act, medical imaging exams and procedure reports are released immediately into your electronic medical record. You may view this report before your referring provider. If you have questions, please contact your health care provider. PLEASE SEE RIGHT BREAST DIAGNOSTIC MAMMOGRAM PERFORMED SAME DAY. CRL:sp SP/Dictated by: Jerardo Zarate MD @ 08/22/2024 12:52:00 PM (Electronically Signed)
--- OUTSIDE RECORDS SUMMARY | 2024-08-22 11:41 | XMS_ITS | Clinical Summary ---
Author Organization [facility] Address [place], [place] [address] Care Team Providers Care Broker Agricultural Produce Name Role Phone Telly Gaines Primary Care Provider [phone] Allergies Active Allergy Reactions Criticality Noted Date Comments Iodinated Contrast Media Anaphylaxis High 01/28/2010 Latex Hives 01/28/2010 Metoclopramide Dyspnea 01/16/2014 Tramadol Syncope 07/25/2018 passed out Encounters Date Type Department Care Team Description 05/22/2024 Lab Requisition [facility] [phone] Cielo Armendariz MD from Last 3 Months [...] CDT Cielo Armendariz MD LAB BILL ONLY [facility] [address] [place] [address], * PATH TISSUE EXAM (05/22/2024 1:15 PM CDT) Case Report Pathology Report ?Case: [id number] ? Authorizing Provider: ??Cielo Armendariz MD ??Collected: ? 05/22/2024 1315 ? Ordering Location: ? [facility] ?Received: ?05/23/2024 0748 ? Pathologist: ? Vin Jiménez, ? MD ? Specimen: ?Gastric Biopsy ? 05/24/2024 10:24 AM [facility] Final Diagnosis A) STOMACH, CARDIA, BIOPSY: 1. Normal gastric cardia-type and fundic mucosa 2. Negative for inflammation, Helicobacter and atrophy 05/24/2024 10:24 AM [facility] Clinical Information Suspected upper GI bleeding in patient with chronic blood loss. Upper endoscopy demonstrates a 5 cm hiatal hernia and friable gastric mucosa. 05/24/2024 10:24 AM [facility] Gross Description A) Received in formalin are 4 horton mucosal fragments ranging from 1 mm to 3 mm in greatest dimension, which are entirely submitted in one cassette. It is labeled with the patient's name and designated stomach-Cardia . Katty Mcclure 05/23/2024 1:38 PM 05/24/2024 10:24 AM [facility] Microscopic Description The final diagnosis is based on microscopic examination of appropriate sections of all specimens. 05/24/2024 10:24 AM CDT [facility] Additional Information Interpreted at [facility], Central Laboratory - [address], [place] [address] 05/24/2024 10:24 AM CDT [facility] Other GASTRIC BIOPSY SPECIMEN / Unknown 05/22/2024 1:15 PM CDT 05/23/2024 7:48 AM CDT Cielo Armendariz MD PATHOLOGY/CYTOLO GY [facility] [address] [place] [address], from Last 3 Months Care Teams Broker Agricultural Produce Relationship Specialty Start Date End Date Telly Gaines [address] [place] [address] PCP - General 07/11/14
== END 2024-08-22 10:49 | disposition home or self-care (01) ==
PROVIDERS: PCP Nurse Practitioner Family; Visit Provider Nurse Practitioner Family
DX: N63.10 Unspecified lump in the right breast, unspecified quadrant (principal); R92.8 Other abnormal and inconclusive findings on diagnostic imaging of breast
CPT/HCPCS: 76642; 77065; G0279

== ENCOUNTER 2024-09-06 09:57 | Outpatient (CLI) | payer MEDICARE, SELFPAY ==
--- OUTSIDE RECORDS SUMMARY | 2024-09-06 10:06 | XMS_ITS | Clinical Summary ---
Author Organization [facility] Address [place], [place] [address] Care Team Providers Care Ldr Nurse Name Role Phone Telly Gaines Primary Care Provider [phone] Allergies Active Allergy Reactions Criticality Noted Date [...] 1-dose 75+ series) 2022 COVID-19 vaccine series (2023- season) 2024 04/06/2022, 08/27/2021, 01/15/2021, Additional history exists Influenza for age 65+ 07/16/2024 Care Teams Ldr Nurse Relationship Specialty Start Date End Date Telly Gaines [address] [place] [address] PCP - General 07/11/14
--- OUTSIDE RECORDS SUMMARY | 2024-09-06 10:06 | XMS_ITS | Encounter Summary ---
Author Organization [facility] Address [address] [place] [address] Care Team Providers Care Public Health Doctor Name Role Phone Emilia Lincoln M.D. Primary Care Provider [phone] Reason for Visit * Outpatient (Routine) - Authorized Specialty Diagnoses / Procedures Referred By Contmichael t Referred To Contact Anticoagulation Emilia Lincoln M.D. [address] [place] [phone] Phone: tel: fax: [facility] Referral ID Status Reason Start Date Expiration Date V isits Requested Visits Authorized [id number] Authorized 05/15/2024 11/14/2025 300 300 Encounter Details Date Type Department Care Team (Latest Contact Info) Description 08/21/2024 10:45 AM CDT Anticoagulation Visit Department of Anticoagulation in [place], [place] [address] [place] [address] Emilia Lincoln M.D. 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 More than 4 times per year [...] Answer Date Recorded PHQ-2 Score 3 04/26/2024 [facility] [place] of Occupat ional Health - Occupational Stress [...] living situation today? I have a [facility] place to live 05/26/2023 Education Answer Date Recorded What is the highest level of school you have completed or the highest degree you have received? Master's degree (e.g., MA, MS, Tacho, MEd, AIR MOVING TECHNICIAN, EARLE) 06/27/2019 Comments No Sex and Gender Information Value Date Recorded Sex Assigned at Female 11/24/2017 7:34 PM JUNIOR LOAN PROCESSOR Legal Sex Female 4:28 AM JUNIOR LOAN PROCESSOR Gender Identity Female 05/03/2021 11:34 AM CDT Sexual Orientation Straight 05/03/2021 11 :34 AM CDT documented as of this encounter Patient Instructions * Patient Instructions* Lani Mittal R.N. - 08/21/2024 10:45 AM CDT The day before your [...] will need to call the Anticoagulation Program at the time of your scheduled nurse visit or youcan complete the Anticoagulation Pre-Visit Questionnaire and if no additional information is needed, your dosing can be provided via your Patient portal. To reschedule your appointment or for questions about your warfarin, please call Primary Care Anticoagulation Program at [phone] from 7:30 am to 4:30 pm. Wednesday-Wednesday . When To Contact Your Health Care Provider If you are experiencing any of the following symptoms, Call 331 or go to the emergency room: chest [...] if you start any herbal or other etwz-zob-dvsbdoa product (check with your doctor, a nurse, or pharmacist). If you change your diet significantly. If you decide to stop or start using tobacco or alcohol. If you notice unusual bruising or bleeding. If you notice dark, tarry, or bright red stools or blood in your urine. If you have a painful and swollen calf. documented in this encounter Plan of Treatment Upcoming Encounters Date Type Department Care Team (Latest Contact Info) Description 09/25/2024 9:45 AM JUNIOR LOAN PROCESSOR Anticoagulation Visit Department of Anticoagulation in [address] [address] Emilia Lincoln M.D. [address] [place] [phone] 11/20/2024 8:30 AM JUNIOR LOAN PROCESSOR Clinical Communication Virtual Review in [address] [phone] 11/23/2024 9:40 AM JUNIOR LOAN PROCESSOR Appointment Department of Laboratory Medicine and Pathology, [facility] in [address] [address] Jerardo Buckley M.D., Ph.D. [address] [place] [phone] 11/23/2024 10:00 AM JUNIOR LOAN PROCESSOR Ancillary Procedure Department of Cardiovascular Medicine in [address] [phone] Jerardo Buckley M.D., Ph.D. [address] [place] [phone] 11/23/2024 10:40 AM JUNIOR LOAN PROCESSOR Appointment Department of Cardiovascular Diseases in [address] [phone] Jerardo Buckley M.D., Ph.D. [address] [place] [phone] Discharge Disposition: Home or Self Care 11/23/2024 1:00 PM JUNIOR LOAN PROCESSOR Office Visit Department of Cardiovascular Medicine in [place], [place] [address] [place] [phone] Melissa Henriquez P.A.-C., M.S. [address] [place] [phone] 11/23/2024 3:00 PM JUNIOR LOAN PROCESSOR Appointment Department of Radiology, [facility] in [place], [place] [address] [place] [address] Jerardo Buckley M.D., Ph.D. [address] [place] [phone] 11/24/2024 8:05 AM JUNIOR LOAN PROCESSOR Hospital Encounter Division of Cardiovascular Diseases in [place], [place] [address] [place] [phone] Jerardo Buckley M.D., Ph.D. [address] [place] [phone] Atrial Fibrillation Unspecified (HCC) 11/24/2024 8:05 AM JUNIOR LOAN PROCESSOR - 11/24/2024 11:47 AM JUNIOR LOAN PROCESSOR Surgery Division of Cardiovascular Diseases in [place], [place] [address] [place] [phone] Jerardo Buckley M.D., Ph.D. [address] [place] [phone] PULSED FIELD ABLATION documented as of this encounter Procedures Procedure Name Priority Date/Time Associated Diagnosis Comments PROTHROMBIN TIME (PT), P Routine 08/21/2024 PROTHROMBIN TIME (PT), P Routine 08/14/2024 PROTHROMBIN TIME (PT), P Routine 08/07/2024 documented in this encounter Results * Prothrombin Time (PT) (08/21/2024) EXT INR 3.20 PATIENT PO INT OF CARE DEVICE Blood (Blood, Venous) Historical Provider LAB BLOOD ADD-ON Final Resul t Performing Organization Address City/[facility]/ZIP Co de Phone Number PATIENT POINT OF CARE DEVICE * Prothrombin Time (PT) (08/14/2024) EXT INR 2.70 PATIENT PO INT OF CARE DEVICE Blood (Blood, Venous) Historical Provider LAB BLOOD ADD-ON Final Resul t PATIENT POINT OF CARE DEVICE * Prothrombin Time (PT) (08/07/2024) EXT INR 2.40 PATIENT PO INT OF CARE DEVICE Blood (Blood, Venous) Historical Provider LAB BLOOD ADD-ON Final Resul t PATIENT POINT OF CARE DEVICE documented in this encounter Visit Diagnoses Diagnosis Thrombosis Deep Vein Personal History- Primary Snf (Current) Anticoagulant Treatment Monitoring For Therapeutic Drug Therapy Atrial Fibrillation Paroxysmal (HCC) Atrial Fibrillation Unspecified (HCC)- Primary Atrial Fibrillation Unspecified (HCC) documented in this encounter Additional Health Concerns Assessment Noted Time PHQ-9 Depression Total Score: 8 04/26/20 24 10:43 AM CDT documented as of this encounter Care Teams Public Health Doctor Relationship Specialty Start Date End Date Emilia Lincoln M.D. [address] [place] [phone] PCP - General Family Medicine 08/13/23 documented as of this encounter
--- OUTSIDE RECORDS SUMMARY | 2024-09-06 10:06 | XMS_ITS | Encounter Summary ---
Author Organization [facility] Address [address] [place] [address] Care Team Providers Care Blocker Hand Name Role Phone Emilia Lincoln M.D. Primary Care Provider [phone] Reason for Visit * Reason Onset Date Comments PandaDoc Form 08/14/2024 [employer] (CPA P physician's order 08/02/24 Encounter Details Date Type Department Care Team (Latest Contact Info) Description 08/14/2024 Clinical Communication Department of Family Medicine, [facility], in [address] [phone] Emilia Lincoln M.D. [address] [place] [phone] PandaDoc Form ([employer] (CPAP physician's order 08/02/24 ) Social History Tobacco Use Types Packs/Day Years [...] Answer Date Recorded PHQ-2 Score 3 04/26/2024 [facility] [place] of Occupat ional Health - Occupational Stress [...] your living situation today? I have a [facility] place to live 05/26/2023 Education Answer Date Recorded What is the highest level of school you have completed or the highest degree you have received? Master's degree (e.g., MA, MS, Tacho, MEd, HARP REPAIRER, EARLE) 06/27/2019 Comments No Sex and Gender Information Value Date Recorded Sex Assigned at Female 11/24/2017 7:34 PM PEDICAB DRIVER Legal Sex Female 4:28 AM PEDICAB DRIVER Gender Identity Female 05/03/2021 11:34 AM CDT Sexual Orientation Straight 05/03/2021 11 :34 AM CDT documented as of this encounter Miscellaneous Notes * Telephone Encounter - Alexandra Daly Oseas - 08/29/2024 8:30 AM CDT Completed form(s) faxed back to [facility], and sent to [facility] for scanning. * Telephone Encounter - Alexandra Daly - 08/17/2024 9:19 AM CDT Re-faxed to [facility] ([phone]) on 08/17/24, and included the following statement: Please see Electronic Signature Certificate page, which is the attestation for the electronic signature/date, attached to this document. This includes all criteria needed for electronic signature (author's e-signature, full name, credentials, date, and time of e-signing). Please attach the Electronic Signature Certificate page to the patient file. This is the certificate of authenticity for the electronic signature with date/time stamp. * Telephone Encounter - Alexandra Daly - 08/16/2024 9:31 AM CDT Completed form(s) faxed back to [facility], and sent to [facility] for scanning. * Telephone Encounter - Alexandra Daly - 08/14/2024 2:56 PM CDT Form was routed to Emilia Lincoln MD, for electronic review/signature. LIAISON PLANNER: [facility] PHONE NUMBER: [phone] INFO REQUESTED: CPAP physician's order 08/02/24 INSTRUCTIONS: Fax completed form(s) to [phone] documented in this encounter Plan of Treatment Upcoming Encounters Date Type Department Care Team (Latest Contact Info) Description 09/25/2024 9:45 AM PEDICAB DRIVER Anticoagulation Visit Department of Anticoagulation in [place], [place] [address] [place] [address] Emilia Lincoln M.D. [address] [place] [phone] 11/20/2024 8:30 AM PEDICAB DRIVER Clinical Communication Virtual Review in [place], [place] 200 [place] [address] 11/23/2024 9:40 AM PEDICAB DRIVER Appointment Department of Laboratory Medicine and Pathology, [facility] in [place], [place] [address] [place] [phone] Jerardo Buckley M.D., Ph.D. [address] [place] [phone] 11/23/2024 10:00 AM PEDICAB DRIVER Ancillary Procedure Department of Cardiovascular Medicine in [address] [phone] Jerardo Buckley M.D., Ph.D. [address] [place] [phone] 11/23/2024 10:40 AM PEDICAB DRIVER Appointment Department of Cardiovascular Diseases in [address] [phone] Jerardo Buckley M.D., Ph.D. [address] [place] [phone] Discharge Disposition: Home or Self Care 11/23/2024 1:00 PM PEDICAB DRIVER Office Visit Department of Cardiovascular Medicine in [address] [phone] Melissa Henriquez P.A.-C., M.S. [address] [place] [phone] 11/23/2024 3:00 PM PEDICAB DRIVER Appointment Department of Radiology, [facility] in [place], [place] [address] [place] [phone] Jerardo Buckley M.D., Ph.D. [address] [place] [phone] 11/24/2024 8:05 AM PEDICAB DRIVER Hospital Encounter Division of Cardiovascular Diseases in [address] [phone] Jerardo Buckley M.D., Ph.D. [address] [place] [phone] Atrial Fibrillation Unspecified (HCC) 11/24/2024 8:05 AM PEDICAB DRIVER - 11/24/2024 11:47 AM PEDICAB DRIVER Surgery Division of Cardiovascular Diseases in [address] [phone] Jerardo Buckley M.D., Ph.D. [address] [place] [phone] PULSED FIELD ABLATION documented as of this encounter Visit Diagnoses Not on filedocumented in this encounter Additional Health Concerns Assessment Noted Time PHQ-9 Depression Total Score: 8 04/26/20 24 10:43 AM CDT documented as of this encounter Care Teams Blocker Hand Relationship Specialty Start Date End Date Emilia Lincoln M.D. [address] [place] [phone] PCP - General Family Medicine 08/13/23 documented as of this encounter
--- OUTSIDE RECORDS SUMMARY | 2024-09-06 10:06 | XMS_ITS | Encounter Summary ---
Author Organization [facility] Address [address] [place] [address] Care Team Providers Care Cook Helper Dessert Name Role Phone Emilia Lincoln M.D. Primary Care Provider [phone]- [phone] Encounter Details Date Type Department Care Team (Late st Contact Info) Description 08/13/2024 Orders Only Division of Cardiovascular Diseases in [place], [place] [address] [place] [phone] Jerardo Buckley M.D., Ph.D. [address] [place] [phone] Social History Tobacco Use Types Packs/Day Years [...] How often do you attend chur or pentecostal services? More than 4 times per year [...] Recorded PHQ-2 Score 3 04/26/2024 [facility] of Occupat ionme Health - Occupational Stress Questionnaire Answer Date [...] living situation today? I have a [facility] place to live 05/26/2023 Education Answer Date Recorded What is the highest level of school you have completed or the highest degree you have received? Master's degree (e.g., MA, MS, Tacho, MEd, WOMENS VOLLEYBALL COACH, EARLE) 06/27/2019 Comments No Sex and Gender Information Value Date Recorded Sex Assigned at Female 11/24/2017 7:34 PM CHIEF NUCLEAR MEDICINE TECHNOLOGIST Legal Sex Female 4:28 AM CHIEF NUCLEAR MEDICINE TECHNOLOGIST Gender Identity Female 05/03/2021 11:34 AM CDT Sexual Orientation Straight 05/03/2021 11 :34 AM CDT documented as of this encounter Plan of Treatment Upcoming Encounters Date Type Department Care Team (Latest Contact Info) Description 09/25/2024 9:45 AM CHIEF NUCLEAR MEDICINE TECHNOLOGIST Anticoagulation Visit Department of Anticoagulation in [place], [place] [address] [place] [address] Emilia Lincoln M.D. [address] [place] [phone] 11/20/2024 8:30 AM CHIEF NUCLEAR MEDICINE TECHNOLOGIST Clinical Communication Virtual Review in [place], [place] 200 [place] [address] 11/23/2024 9:40 AM CHIEF NUCLEAR MEDICINE TECHNOLOGIST Appointment Department of Laboratory Medicine and Pathology, [facility] in [place], [place] [address] [place] [phone] Jerardo Buckley M.D., Ph.D. [address] [place] [phone] 11/23/2024 10:00 AM CHIEF NUCLEAR MEDICINE TECHNOLOGIST Ancillary Procedure Department of Cardiovascular Medicine in [place], [place] [address] [place] [phone] Jerardo Buckley M.D., Ph.D. [address] [place] [phone] 11/23/2024 10:40 AM CHIEF NUCLEAR MEDICINE TECHNOLOGIST Appointment Department of Cardiovascular Diseases in [address] [phone] Jerardo Buckley M.D., Ph.D. [address] [place] [phone] Discharge Disposition: Home or Self Care 11/23/2024 1:00 PM CHIEF NUCLEAR MEDICINE TECHNOLOGIST Office Visit Department of Cardiovascular Medicine in [address] [phone] Melissa Henriquez P.A.-C., M.S. [address] [place] [phone] 11/23/2024 3:00 PM CHIEF NUCLEAR MEDICINE TECHNOLOGIST Appointment Department of Radiology, [facility], in [address] [phone] Jerardo Buckley M.D., Ph.D. [address] [place] [phone] 11/24/2024 8:05 AM CHIEF NUCLEAR MEDICINE TECHNOLOGIST Hospital Encounter Division of Cardiovascular Diseases in [place], [place] [address] [place] [address] Jerardo Buckley M.D., Ph.D. [address] [place] [phone] Atrial Fibrillation Unspecified (HCC) 11/24/2024 8:05 AM CHIEF NUCLEAR MEDICINE TECHNOLOGIST - 11/24/2024 11:47 AM CHIEF NUCLEAR MEDICINE TECHNOLOGIST Surgery Division of Cardiovascular Diseases in [place], [place] [address] [place] [phone] Jerardo Buckley M.D., Ph.D. [address] [place] [phone] PULSED FIELD ABLATION documented as of this encounter Visit Diagnoses Not on filedocumented in this encounter Additional Health Concerns Assessment Noted Time PHQ-9 Depression Total Score: 8 04/26/20 24 10:43 AM CDT documented as of this encounter Care Teams Cook Helper Dessert Relationship Specialty Start Date End Date Emilia Lincoln M.D. [address] [place] [phone] PCP - General Family Medicine 08/13/23 documented as of this encounter
--- OUTSIDE RECORDS SUMMARY | 2024-09-06 10:06 | XMS_ITS | Encounter Summary ---
Author Organization [facility] Address [address] [place] [id number] Care Team Providers Care Sweater Operator Name Role Phone Emilia Lincoln M.D. Primary Care Provider [phone]- [phone] Reason for Referral * Outpatient (Routine) - Authorized Specialty Diagnoses / Procedures Referred By Contac t Referred To Contact Diagnoses Atrial Fibrillation Paroxysmal (HCC) Procedures ECG Heart rhythm monitor (Holter) Jerardo Buckley M.D., Ph.D. 200 [place] [address] Phone: tel: fax: [facility] Referral ID Status Reason Start Date Expiration Date V isits Requested Visits Authorized [id number] Authorized 11/03/2023 11/02/2024 1 1 Reason for Visit * Outpatient (Routine) - Authorized Specialty Diagnoses / Procedures Referred By Contac t Referred To Contact Diagnoses Atrial Fibrillation Paroxysmal (HCC) Procedures ECG Heart rhythm monitor (Holter) Jerardo Buckley M.D., Ph.D. [address] [place] [phone] Phone: tel: fax: [facility] Referral ID Status Reason Start Date Expiration Date V isits Requested Visits Authorized [id number] Authorized 11/03/2023 11/02/2024 1 1 Encounter Details Date Type Department Care Team (Latest Contact Info) Description 07/11/2024 2:20 PM CDT - 07/11/2024 11:59 PM CDT Hospital Encounter Department of Cardiovascular Diseases in [place], [place] [address] [place] [address] Jerardo Buckley M.D., Ph.D. [address] [place] [address] Atrial Fibrillation Paroxysmal (HCC) Discharge Disposition: Home [...] often do you attend chur ch or mandaeism services? More than 4 times per year 02/25/2022 Do you belong to any clubs o r organizations such as mandaeism groups, unions, fraternal or athletic groups, or [...] Answer Date Recorded PHQ-2 Score 3 04/26/2024 [facility] - Occupational [...] Master's degree (e.g., MA, MS, Tacho, MEd, CLINICAL MEDICAL ASSISTANT, EARLE) 06/27/2019 Comments No Sex and Gender Information Value Date Recorded Sex Assigned at Female 11/24/2017 7:34 PM HAND GLOVE CLEANER Legal Sex Female 4:28 AM HAND GLOVE CLEANER Gender Identity Female 05/03/2021 11:34 AM CDT Sexual Orientation Straight 05/03/2021 11 :34 AM CDT documented as of this encounter Medications at Time of Discharge atorvastatin (Lipitor) 10 mg tablet Take 10 mg by mouth daily. cholecalciferol, vitamin D3, 25 mcg (1,000 Unit) tablet Take 25 mcg by mouth daily. DME CPAPIndications:Ob structive Sleep Apnea Adult DME Order 1 each 4 dofetilide (TIKOSYN) 500 mcg capsule Take 1 capsule (500 mcg total) by mouth 2 (two) times a day. 180 capsule 3 3 FLUoxetine (PROzac) 10 mg capsule Take 1 capsule by mouth daily. 3 Jardiance 10 mg tablet TAKE 1 TABLET(10 MG) BY MOUTH EVERY MORNING BEFORE BREAKFAST 100 tablet 3 4 metoprolol tartrate (LOPRESSOR) 25 mg tablet Take 0.5 tablets (12.5 mg total) by mouth 2 (two) times a day. 180 tablet 3 3 pantoprazole (PROTONIX) 40 mg EC tablet Take 1 tablet (40 mg total) by mouth 2 (two) times a day before breakfast and dinner. 180 tablet 3 4 spironolactone (ALDACTONE) 25 mg tablet TAKE 1 TABLET(25 MG) BY MOUTH DAILY 90 tablet 3 3 warfarin (COUMADIN) 5 mg tabletIndications: Atrial Fibrillation Paroxysmal (HCC),Date Puller (Current) Anticoagulant Treatment,Thrombos is Deep Vein Acute Calf Right (HCC),Monitoring For Therapeutic Drug Therapy Please take as directed by your Anticoagulation Clinic. 106 tablet 3 3 zolpidem (AMBIEN) 5 mg tabletIndications: Restless Leg Syndrome TAKE 1 TABLET(5 MG) BY MOUTH AT BEDTIME NEEDED FOR SLEEP 60 tablet 3 documented as of this encounter Plan of Treatment Upcoming Encounters Date Type Department Care Team (Latest Contact Info) Description 09/25/2024 9:45 AM HAND GLOVE CLEANER Anticoagulation Visit Department of Anticoagulation in [place], [place] [address] [place] [phone] Emilia Lincoln M.D. [address] [place] [phone] 11/20/2024 8:30 AM HAND GLOVE CLEANER Clinical Communication Virtual Review in [place], [place] 200 [place] [address] 11/23/2024 9:40 AM HAND GLOVE CLEANER Appointment Department of Laboratory Medicine and Pathology, [facility], in [address] [phone] Jerardo Buckley M.D., Ph.D. [address] [place] [phone] 11/23/2024 10:00 AM HAND GLOVE CLEANER Ancillary Procedure Department of Cardiovascular Medicine in [address] [phone] Jerardo Buckley M.D., Ph.D. [address] [place] [phone] 11/23/2024 10:40 AM HAND GLOVE CLEANER Appointment Department of Cardiovascular Diseases in [address] [phone] Jerardo Buckley M.D., Ph.D. [address] [place] [phone] Discharge Disposition: Home or Self Care 11/23/2024 1:00 PM HAND GLOVE CLEANER Office Visit Department of Cardiovascular Medicine in [place], [place] [address] [place] [address] Melissa Henriquez P.A.-C., M.S. [address] [place] [phone] 11/23/2024 3:00 PM HAND GLOVE CLEANER Appointment Department of Radiology, [facility] in [place], [place] [address] [place] [address] Jerardo Buckley M.D., Ph.D. [address] [place] [phone] 11/24/2024 8:05 AM HAND GLOVE CLEANER Hospital Encounter Division of Cardiovascular Diseases in [place], [place] [address] [place] [phone] Jerardo Buckley M.D., Ph.D. [address] [place] [phone] Atrial Fibrillation Unspecified (HCC) 11/24/2024 8:05 AM HAND GLOVE CLEANER - 11/24/2024 11:47 AM HAND GLOVE CLEANER Surgery Division of Cardiovascular Diseases in [place], [place] [address] [place] [phone] Jerardo Buckley M.D., Ph.D. [address] [place] [phone] PULSED FIELD ABLATION documented as of this encounter Procedures Procedure Name Priority Date/Time Associated Diagnosis Comments HOLTER MONITOR - IN CLINIC LAUNDRY ROUTE DRIVER Routine 07/12/2024 11:16 AM CDT Atrial Fibrillation Paroxysmal (HCC) documented in this encounter Results * HOLTER MONITOR - IN CLINIC LAUNDRY ROUTE DRIVER (07/12/2024 11:16 AM CDT) Min Heart Rate [...] Duration 0 duration INFOBION IC MOME AF [place] 0 percent INFOBIONIC MOME Symptom Count 0 [...] complexes. 4. No symptomatic events were noted. Crutch Maker: Rayne Casillas, CCT / Rosalba Gomez, CCT [...] complexes. 4. No symptomatic events were noted. Crutch Maker: Rayne Casillas, CCT / Rosalba Gomez CCT Jerardo Buckley M.D., Ph.D. CV CARDIAC SERVICES PROCEDURES Final Result INFOBIOELDER CHAU documented in this encounter Visit Diagnoses Diagnosis Atrial Fibrillation Paroxysmal (HCC) Atrial Fibrillation Unspecified (HCC)- Primary Atrial Fibrillation Unspecified (HCC) documented in this encounter Additional Health Concerns Assessment Noted Time PHQ-9 Depression Total Score: 8 04/26/20 24 10:43 AM CDT documented as of this encounter Care Teams Sweater Operator Relationship Specialty Start Date End Date Emilia Lincoln M.D. [address] [place] [phone] PCP - General Family Medicine 08/13/23 documented as of this encounter
--- OUTSIDE RECORDS SUMMARY | 2024-09-06 10:06 | XMS_ITS | Encounter Summary ---
Author Organization [facility] Address [address] [place] [address] Care Team Providers Care Customer Retention Specialist Name Role Phone Emilia Lincoln M.D. Primary Care Provider +1- [phone] Reason for Visit * Outpatient (Routine) - Authorized Specialty Diagnoses / Procedures Referred By Contmichael t Referred To Contact Anticoagulation Emilia Lincoln M.D. [address] [place] [phone] Phone: tel: fax: [facility] Referral ID Status Reason Start Date Expiration Date V isits Requested Visits Authorized [id number] Authorized 05/15/2024 11/14/2025 300 300 Encounter Details Date Type Department Care Team (Latest Contact Info) Description 07/24/2024 10:45 AM CDT Anticoagulation Visit Department of Anticoagulation in [place], [place] [address] [place] [address] Emilia Lincoln M.D. 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 More than 4 times per year 02/25/2022 Do you belong to any clubs o r organizations such as restorationist groups, unions, fraternal or athletic groups, or [...] Answer Date Recorded PHQ-2 Score 3 04/26/2024 [facility] of Occupat ional Health - Occupational Stress [...] living situation today? I have a [facility] place to live 05/26/2023 Education Answer Date Recorded What is the highest level of school you have completed or the highest degree you have received? Master's degree (e.g., MA, MS, Tacho, MEd, ICE CRUSHER, EARLE) 06/27/2019 Comments No Sex and Gender Information Value Date Recorded Sex Assigned at Female 11/24/2017 7:34 PM SOCIAL SERVICES DESIGNEE Legal Sex Female 4:28 AM SOCIAL SERVICES DESIGNEE Gender Identity Female 05/03/2021 11:34 AM CDT [...] please call Primary Care Anticoagulation Program at [phone] from 7:30 am to 4:30 pm. Wednesday-Wednesday [...] if you start any herbal or other [id number] product (check with your doctor, a nurse, [...] (Latest Contact Info) Description 09/25/2024 9:45 AM SOCIAL SERVICES DESIGNEE Anticoagulation Visit Department of Anticoagulation in [address] [phone] Emilia Lincoln M.D. [address] [phone] 11/20/2024 8:30 AM SOCIAL SERVICES DESIGNEE Clinical Communication Virtual Review in [place], [place] 200 [place] [address] 11/23/2024 9:40 AM SOCIAL SERVICES DESIGNEE Appointment Department of Laboratory Medicine and Pathology, [facility], in [address] [phone] eJrardo Buckley M.D., Ph.D. [address] [place] [phone] 11/23/2024 10:00 AM SOCIAL SERVICES DESIGNEE Ancillary Procedure Department of Cardiovascular Medicine in [address] [phone] Jerardo Buckley M.D., Ph.D. [address] [place] [phone] 11/23/2024 10:40 AM SOCIAL SERVICES DESIGNEE Appointment Department of Cardiovascular Diseases in [address] [address] Jerardo Buckley M.D., Ph.D. [address] [place] [phone] Discharge Disposition: Home or Self Care 11/23/2024 1:00 PM SOCIAL SERVICES DESIGNEE Office Visit Department of Cardiovascular Medicine in [address] [phone] Melissa Henriquez P.A.-C., M.S. [address] [place] [phone] 11/23/2024 3:00 PM SOCIAL SERVICES DESIGNEE Appointment Department of Radiology, [facility], in [place], [place] [address] [place] [phone] Jerardo Buclkey M.D., Ph.D. [address] [place] [phone] 11/24/2024 8:05 AM SOCIAL SERVICES DESIGNEE Hospital Encounter Division of Cardiovascular Diseases in [place], [place] [address] [place] [phone] Jerardo Buckley M.D., Ph.D. [address] [place] [phone] Atrial Fibrillation Unspecified (HCC) 11/24/2024 8:05 AM SOCIAL SERVICES DESIGNEE - 11/24/2024 11:47 AM SOCIAL SERVICES DESIGNEE Surgery Division of Cardiovascular Diseases in [address] [phone] Jerardo Buckley M.D., Ph.D. [address] [place] [phone] PULSED FIELD ABLATION documented as of this encounter Procedures Procedure Name Priority Date/Time Associated Diagnosis Comments PROTHROMBIN TIME (PT), P Routine 07/24/2024 PROTHROMBIN TIME (PT), P Routine 07/17/2024 PROTHROMBIN TIME (PT), P Routine 07/10/2024 documented in this encounter Results * Prothrombin Time (PT) (07/24/2024) EXT INR 1.80 PATIENT PO INT OF CARE DEVICE Blood (Blood, Venous) 07/24/2024 Historical Provider LAB BLOOD ADD-ON Final Resul t PATIENT POINT OF CARE DEVICE * Prothrombin Time (PT) (07/17/2024) EXT INR 2.40 PATIENT PO INT OF CARE DEVICE Blood (Blood, Venous) 07/17/2024 Historical Provider LAB BLOOD ADD-ON Final Resul t Performing Organization Address City/[facility]/ZIP Co de Phone Number PATIENT POINT OF CARE DEVICE * Prothrombin Time (PT) (07/10/2024) EXT INR 2.30 PATIENT PO INT OF CARE DEVICE Blood (Blood, Venous) 07/10/2024 [facility] Provider LAB BLOOD ADD-ON Final Resul t Performing Organization Address [facility]/ZIP Co de Phone Number PATIENT POINT OF CARE DEVICE documented in this encounter Visit Diagnoses Diagnosis Thrombosis Deep Vein Personal History- Primary 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 [address] [place] [phone] PCP - General Family Medicine 08/13/23 documented as of this encounter
--- OUTSIDE RECORDS SUMMARY | 2024-09-06 10:06 | XMS_ITS | Referral Summary ---
Author Organization [facility] Address [address] [place] [address] Care Team Providers Care Spare Fixer Name Role Phone Emilia Lincoln M.D. Primary Care Provider [phone] Source Comments Patient records contain information from all sites at [facility]. For routine questions regarding patient records, call [phone] during business hours, M-F 8:00 AM - 5:00 PM Central Time. Record requests for emergency care only can be directed to [phone] at any time.[facility] Encounters Date Type Department Care Team Description 08/29/2024 9:00 AM CDT Anticoagulation Visit Department of Anticoagulation in [place], [place] [address] [place] [address] Emilia Lincoln M.D. Thrombosis Deep Vein Personal History (Primary Dx); Group Home (Current) Anticoagulant Treatment; Monitoring For Therapeutic Drug Therapy; Atrial Fibrillation Paroxysmal (HCC) 08/21/2024 10:45 AM CDT Anticoagulation Visit Department of Anticoagulation in [place], [place] [address] [place] [address] Emilia Lincoln M.D. Thrombosis Deep Vein Personal History (Primary Dx); Group Home (Current) Anticoagulant Treatment; Monitoring For Therapeutic Drug Therapy; Atrial Fibrillation Paroxysmal (HCC) 08/14/2024 Clinical Communication Department of Family Medicine, [facility], in [address] [phone] Emilia Lincoln M.D. PandaDoc Form ([employer] (CPAP physician's order 08/02/24 ) 08/13/2024 Orders Only Division of Cardiovascular Diseases in [place], [place] [address] [place] [phone] Jerardo Buckley M.D., Ph.D. 07/31/2024 Clinical Communication Department of Cardiovascular Medicine in [address] [phone] Prescheduling, Provider Procedure Request (Ablation) 07/31/2024 9:45 AM CDT Anticoagulation Visit Department of Anticoagulation in [address] [phone] Emilia Lincoln M.D. Thrombosis Deep Vein Personal History; Group Home (Current) Anticoagulant Treatment; Monitoring For Therapeutic Drug Therapy; Atrial Fibrillation Paroxysmal (HCC) 07/24/2024 10:45 AM CDT Anticoagulation Visit Department of Anticoagulation in [address] [phone] Emilia Lincoln M.D. Thrombosis Deep Vein Personal History (Primary Dx); Group Home (Current) Anticoagulant Treatment; Monitoring For Therapeutic Drug Therapy; Atrial Fibrillation Paroxysmal (HCC) 07/18/2024 11:00 AM CDT Office Visit Department of Cardiovascular Medicine in [address] [phone] Jerardo Buckley M.D., Ph.D. Obesity Body Mass Index 30-39.9 Adult (Primary Dx); Atrial Fibrillation Paroxysmal (HCC) 07/11/2024 2:20 PM CDT - 07/11/2024 11:59 PM CDT Hospital Encounter Department of Cardiovascular Diseases in [address] [phone] Jerardo Buckley M.D., Ph.D. Atrial Fibrillation Paroxysmal (HCC) Discharge Disposition: Home or Self Care 07/10/2024 11:45 AM CDT Clinical Communication Virtual Review in [place], [place] 200 [place] [address] Pre-visit Intake 07/03/2024 8:15 AM CDT Anticoagulation Visit Department of Anticoagulation in [place], [place] [address] [place] [address] Emilia Lincoln M.D. Thrombosis Deep Vein Personal History; Group Home (Current) Anticoagulant Treatment; Monitoring For Therapeutic Drug Therapy; Atrial Fibrillation Paroxysmal (HCC) 06/12/2024 Orders Only Department of Anticoagulation in [place], [place] [address] [place] [address] Jacquie Chavis R.N. Thrombosis Deep Vein Personal History (Primary Dx); Group Home (Current) Anticoagulant Treatment; Monitoring For Therapeutic Drug Therapy; Atrial Fibrillation Paroxysmal (HCC) 06/12/2024 3:00 PM CDT Anticoagulation Visit Department of Anticoagulation in [place], [place] [address] [place] [address] Emilia Lincoln M.D. Thrombosis Deep Vein Personal History (Primary Dx); Group Home (Current) Anticoagulant Treatment; Monitoring For Therapeutic Drug Therapy; Atrial Fibrillation Paroxysmal (HCC) from Last 3 Months Allergies Active Allergy Reactions Criticality Noted Date Comments Iodinated Contrast Media Anaphylaxis High 01/28/2010 Latex Hives (Reselect Reaction) 01/28/2010 Metoclopramide Shortness of breath (Reselect Reaction) 01/16/2014 Tramadol Other (see comments) 07/25/2018 passed out Medications * This document contains information received from the source organization and may not represent a complete record from that organization. zolpidem (AMBIEN) 5 mg tabletIndications :Restless Leg Syndrome TAKE 1 TABLET(5 MG) BY MOUTH AT BEDTIME NEEDED FOR SLEEP 60 tablet 01/12/20 23 Active Additional Information Patient taking differently: 5 mg oral Bedtime PRN, sleep, Reported on 07/19/2023 cholecalciferol, vitamin D3, 25 mcg (1,000 Unit) tablet Take 25 mcg by mouth daily. Active metoprolol tartrate (LOPRESSOR) 25 mg tablet Take 0.5 tablets (12.5 mg total) by mouth 2 (two) times a day. 180 tablet 3 07/21/20 23 Active dofetilide (TIKOSYN) 500 mcg capsule Take 1 capsule (500 mcg total) by mouth 2 (two) times a day. 180 capsule 3 07/21/20 Active warfarin (COUMADIN) 5 mg tabletIndications :Atrial Fibrillation Paroxysmal (HCC),Group Home (Current) Anticoagulant Treatment,Thrombo sis Deep Vein Acute Calf Right (HCC),Monitoring For Therapeutic Drug Therapy Please take as directed by your Anticoagulation Clinic. 106 tablet 3 09/03/20 Active Additional Information Patient taking differently: 7.5 MG on Mondays and 5 MG all other daysPlease take as directed by your Anticoagulation Clinic., Reported on 07/10/2024 FLUoxetine (PROzac) 10 mg capsule Take 1 capsule by mouth daily. 10/29/20 Active spironolactone (ALDACTONE) 25 mg tablet TAKE 1 TABLET(25 MG) BY MOUTH DAILY 90 tablet 3 11/03/20 Active DME CPAPIndications:O bstructive Sleep Apnea Adult DME Order 1 each 12/08/19 24 Active Jardiance 10 mg tablet TAKE 1 TABLET(10 MG) BY MOUTH EVERY MORNING BEFORE BREAKFAST 100 tablet 3 03/01/20 24 Active pantoprazole (PROTONIX) 40 mg EC tablet Take 1 tablet (40 mg total) by mouth 2 (two) times a day before breakfast and dinner. 180 tablet 3 04/05/20 Active atorvastatin (Lipitor) 10 mg tablet Take [...] - cardioversion, apparent NSR until wrapping up [facility] trip 07/23/18 - HR max 120 on metoprolol succinate 25 mg once daily - a.fib on exam today - discussed, to Rhythm Service for iv sotalol - back to Sleep Medicine for continued efforts re [facility]. 09/16/2021 NSR on sotalol 120 mg BID ?? 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 [...] Colon Adenomatous Personal History 014 Overview (06/16/2022): 2014: Dr Alvares: #2 History of adenomatous [...] cardioversion, apparent NSR until wrapping up [facility] trip 07/23/18 - HR max 120 [...] no heartburn, no diarrhea. NEG exam at [facility] ED [place] 12/29, repeat exam benign 01/26. Discussed in [...] sleeping a lot on January vacation in [place] - glad that spouse was off golfing [...] COVID-19 09/08/2020 Anticoagulant Therapy [Z79.01] 10/02/2017 08/12/2018 Group Home (Current) Anticoagulant Treatment 10/09/2011 08/12/2018 Immunizations Name [...] How often do you attend chur or baptist services? More than 4 times per year 02/25/2022 Do you belong to any clubs o r organizations such as jain groups, unions, fraternal or athletic groups, or [...] Answer Date Recorded PHQ-2 Score 3 04/26/2024 [facility] - Occupational [...] your living situation today? I have a [facility] place to live 05/26/2023 Education Answer Date Recorded What is the highest level of school you have completed or the highest degree you have received? Master's degree (e.g., MA, MS, Tacho, MEd, METAL BONDING HELPER, [employer]ARLE) 06/27/2019 Comments No Sex and Gender Information Value Date Recorded Sex Assigned at Female 11/24/2017 7:34 PM OIL LEASE OPERATOR Legal Sex Female 4:28 AM OIL LEASE OPERATOR Gender Identity Female 05/03/2021 11:34 AM CDT Sexual Orientation Straight 05/03/2021 11 :34 AM CDT Last Filed Vital Signs Vital Sign Reading Time Taken Comments Blood Pressure 121/76 07/18/2024 10:46 AM CDT Pulse 80 07/18/2024 10:46 AM CDT Temperature 36.4 ??C (97.5 ??F) 11/03/2023 2:50 PM CS T Respiratory Rate 16 11/03/2023 5:34 PM OIL LEASE OPERATOR Oxygen Saturation 96% 11/03/2023 9:29 AM OIL LEASE OPERATOR Inhaled Oxygen Concentration - - Weight 93.1 kg (205 lb 4 oz) 07/18/2024 10:46 AM CDT Height 155.4 cm (5' 1.18) 07/18/2024 10:46 AM C LIZETH Body Mass Index 38.55 07/18/2024 10:46 AM CDT Plan of Treatment Upcoming Encounters Date Type Department Care Team (Latest Contact Info) Description 09/25/2024 9:45 AM OIL LEASE OPERATOR Anticoagulation Visit Department of Anticoagulation in [place], [place] [address] [place] [phone] Emilia Lincoln M.D. [address] [place] [phone] 11/20/2024 8:30 AM OIL LEASE OPERATOR Clinical Communication Virtual Review in [address] [phone] 11/23/2024 9:40 AM OIL LEASE OPERATOR Appointment Department of Laboratory Medicine and Pathology, [facility] in [address] [phone] Jerardo Buckley M.D., Ph.D. [address] [place] [phone] 11/23/2024 10:00 AM OIL LEASE OPERATOR Ancillary Procedure Department of Cardiovascular Medicine in [address] [phone] Jerardo Buckley M.D., Ph.D. [address] [place] [phone] 11/23/2024 10:40 AM OIL LEASE OPERATOR Appointment Department of Cardiovascular Diseases in [address] [phone] Jerardo Buckley M.D., Ph.D. [address] [place] [phone] Discharge Disposition: Home or Self Care 11/23/2024 1:00 PM OIL LEASE OPERATOR Office Visit Department of Cardiovascular Medicine in [place], [place] [address] [place] [phone] Melissa Henriquez P.A.-C., M.S. [address] [place] [phone] 11/23/2024 3:00 PM OIL LEASE OPERATOR Appointment Department of Radiology, [facility] in [place], [place] [address] [place] [phone] Jerardo Buckley M.D., Ph.D. [address] [place] [phone] 11/24/2024 8:05 AM [facility] Hospital Encounter Division of Cardiovascular Diseases in [address] [phone] Jerardo Buckley M.D., Ph.D. [address] [place] [phone] Atrial Fibrillation Unspecified (HCC) 11/24/2024 8:05 AM OIL LEASE OPERATOR - 11/24/2024 11:47 AM [facility] Surgery Division of Cardiovascular Diseases in [place] [address] [place] [phone] Jerardo Buckley M.D., Ph.D. [address] [place] [phone] PULSED FIELD ABLATION Medical Devices Implanted Type Area First Coat Operator Device Identifier Shelf Expiration Date Model / Serial / Lot Knee Implant Knee Implant Knee J J Patella Rev Round 32m - [id number] Implanted:Qty: 1 on 09/11/2011 Knee Implant Other/Legacy - See Implant Description [employer] Description:Device Manufactu rer - J [employer]. Body Location - Other. Left. Device Status Text - KNEE [id number]. Depuy-Insert Stabilized Sz 3 10mm - Rodriguez [id number] Implanted:Qty: 1 on 09/11/2011 Knee Implant Other/Legacy - See Implant Description [employer] Description:Device Manufactu rer - J [employer]. Body Location - Other. Left. Device Status Text - KNEE [id number]. Sigma Post Stab.W Lug Fem Sz 3 Lt - Rodriguez [id number] Implanted:Qty: 1 on 09/11/2011 Knee Implant Other/Legacy - See Implant Description [employer] Description:Device Manufactu rer - J [employer] J [employer]. Body Location - Other. Left. Device Status Text - KNEE [id number]. Depuy-Tib Tray Mod Cement Cocr Sz3 - Rodriguez [id number] Implanted:Qty: 1 on 09/11/2011 Knee Implant Other/Legacy - See Implant Description [employer] Description:Device Manufactu rer - J [employer] J [employer]. Body Location - Other. Left. Device Status Text - KNEE [id number]. Conversions - Default Historical Implant Device Implanted:09/27 (Quantity not on file) Knee Implant Description:Device Status Te xt - Knee Imp. artificial left knee. Cement Bone Large - Rodriguez [id number] Implanted:Qty: 2 on 09/11/2011 Misc Other [place] Description:Device Manufactu rer - [place] Terell.. Device Status Text - [id number]. Ocular [...] Diagnosis Comments PROTHROMBIN TIME (PT), P Routine 08/28/2024 PROTHROMBIN TIME (PT), P Routine 08/21/2024 PROTHROMBIN TIME (PT), P Routine 08/14/2024 PROTHROMBIN TIME (PT), P Routine 08/07/2024 PROTHROMBIN TIME (PT), P Routine 07/31/2024 PROTHROMBIN TIME (PT), P Routine 07/24/2024 PROTHROMBIN TIME (PT), P Routine 07/17/2024 HOLTER MONITOR - IN CLINIC RENT AND MISCELLANEOUS REMITTANCE CLERK Routine 07/12/2024 11:16 AM CDT Atrial Fibrillation Paroxysmal (HCC) ECG Routine 07/11/2024 2:27 PM CDT Atrial Fibrillation Paroxysmal (HCC) PROTHROMBIN TIME (PT), P Routine 07/10/2024 PROTHROMBIN TIME (PT), P Routine 07/03/2024 PROTHROMBIN TIME (PT), P Routine 06/26/2024 PROTHROMBIN TIME (PT), P Routine 06/19/2024 PROTHROMBIN TIME (PT), P Routine 06/12/2024 SODIUM, S/P Routine 04/27/2024 8:42 AM CDT [...] Health Maintenance Results * Prothrombin Time (PT) (08/28/2024) Only the most recent of12 resultswithin the time period is included. EXT INR 2.70 PATIENT PO INT OF CARE DEVICE Blood (Blood, Venous) 08/28/2024 Narrative Resulting Agency Comment Home INR us Historical Provider LAB BLOOD ADD-ON Final Resul t PATIENT POINT OF CARE DEVICE * HOLTER MONITOR - IN CLINIC RENT AND MISCELLANEOUS REMITTANCE CLERK (07/12/2024 11:16 AM CDT) Min Heart Rate [...] Duration 0 duration INFOBION IC MOME AF [place] 0 percent INFOBIONIC MOME Symptom Count 0 [...] complexes. 4. No symptomatic events were noted. Electro Optical Engineer: EUNICE Aguilera / EUNICE Cardoza Procedure Note [...] complexes. 4. No symptomatic events were noted. Electro Optical Engineer: EUNICE Aguilera / EUNICE Cardoza Jerardo Buckley M.D., Ph.D. CV CARDIAC SERVICES PROCEDURES Final Result INFOBIONIC MOME NA * ECG 12 Lead (07/11/2024 2:27 PM CDT) Ventricular Rate ECG/Min 54 BPM MUSE [place] Interval 196 ms MUSE QRSD Interval 86 ms MUSE QT Interval 464 ms MUSE QTC Interval 440 ms MUSE P [place] 20 degrees MUSE R [place] 21 degrees MUSE T Wave [place] 33 degrees MUSE 07/11/2024 2:27 PM CDT 07/11/2024 4:24 PM CDT Impressions MUSE - 07/11/2024 2:29 PM CDT Sinus bradycardia Low anterior forces slight ST-elevation anterior leads, consider early repolarization or pericarditis When compared with ECG of 27-Apr-2024 08:55, [place] interval has decreased Slight ST-elevation now present Revised Report Narrative Procedure Note Freeman Davis Jr., M.D. - 07/11/2024 IMPRESSION: Sinus bradycardia Low anterior forces slight ST-elevation anterior leads, consider early repolarization orpericarditis When compared with ECG of 27-Apr-2024 08:55, [place] interval has decreased Slight ST-elevation now present Revised Report Jerardo Buckley M.D., Ph.D. ECG ORDERABLES Edit ed Result - Final Performing Organization Address [facility]/ZIP Co de Phone Number MUSE NA * Sodium (04/27/2024 8:42 AM CDT) Sodium, S 141 135 - 145 mmol/L 04/27/2024 10:16 AM CDT DTL Blood (Blood, Venous) 04/27/2024 8:42 AM CDT 04/27/2024 9:24 AM CDT Hugo Sanchez M.D. LAB BLOOD ADD-ON Final Result Performing Organization Address [facility] de Phone Number [facility] [address] [place] [address] * Potassium (04/27/2024 8:42 AM CDT) Potassium, S 4.4 3.6 - 5.2 mmol/L 04/27/2024 10:16 AM CDT DTL Blood (Blood, Venous) 04/27/2024 8:42 AM CDT 04/27/2024 9:24 AM CDT Jerardo Buckley M.D., Ph.D. LAB BLOOD ADD-ON Fin al Result Performing Organization Address [facility] Co de Phone Number [facility] [address] DTL [facility] [address] * (ABNORMAL) Creatinine with Estimated GFR (04/27/2024 8:42 AM CDT) Creatinine 1.17(H) 0.59 - 1.04 mg/dL 04/27/2024 10:16 AM CDT DTL Estimated GFR (eGFR) 48(L) >=60 mL/min/BSA 04/27/2024 10:16 AM CDT DTL Comment: Estimated GFR calculated using the 2020 CKD_EPI creatinine equation. Blood (Blood, Venous) 04/27/2024 8:42 AM CDT 04/27/2024 9:24 AM CDT Jerardo Buckley M.D., Ph.D. LAB BLOOD ADD-ON Fin al Result [id number] [place] [address] [address] * BI Breast Screening Bilateral with Tomosynthesis [...] ASSESSMENT: BI-RADS: 1: Negative. Emilia Lincoln M.D. [facility] BI PROCEDURES Final Re sult * Cologuard (07/04/2020 3:30 PM CDT) Result [...] Fang et al, N Engl J Med 2014;370(14):0294-4512) The normal value (reference range) for this assay is negative. COLOGUARD RE-SCREENING RECOMMENDATION: Periodic routine colorectal cancer screening is an important part of preventive healthcare for asymptomatic persons at average risk for colorectal cancer. Following a negative Cologuard result, the [employer] [employer] and U.S. Multi-Society Task Force screening guidelines recommend a Cologuard re-screening interval of 3 years. References: [employer] Society (ACS). Colorectal cancer prevention and early detection. [place], [place]: [employer]; [updated 2015Mar 08]. https://www.cancer.org/cancer/asizh-bflbax-ocpblb/detection- diagnosis-staging/acs-recommendations.html. Accessed July 15, 2018; Hao LIMON, Ludmila CR, Ashley GRADY, Colorectal Cancer Screening: Recommendations for Physicians and Patients from the U.S. Multi-Society Task Force on Colorectal Cancer Screening, Am J Gastroenterology 2017; 112:8557-5985. TEST TYPE: Composite algorithmic analysis of stool [...] interval of every 3 years by the [employer] [employer] and U.S. Multi-Society Task Force. [...] can be accessed at the following location: www.[employer]/results. Additional description of the Cologuard test process, warnings and precautions can be found at www.cologuardtest.com. Rx only. Stool (Stool) 07/04/2020 3:3 0 PM CDT 07/06/2020 6:50 PM CDT Telly Gaines M.D. LAB BODY FLUIDS AND STOOLS ORDERABLES Final Result [employer] [address] [place] [address] [employer] [address] [place] [address], [address] [place] [address] from Last 3 Months or Most Recently Relevant to Health Maintenance Insurance AARP Advance Directives For more information, please contact: [phone] Documents on File Type Date Recorded Patient Electronic Scanner Operator Expl anation Advance Directives 05/19/2018 4:06 PM [...] Alternat e Health Care Agent Care Teams Spare Fixer Relationship Specialty Start Date End Date Emilia Lincoln M.D. [address] [place] [phone] PCP - General Family Medicine 08/13/23
--- OUTSIDE RECORDS SUMMARY | 2024-09-06 10:06 | XMS_ITS ---
Author Organization [facility] Address [address] [place] [address] Care Team Providers Care Code Number Stamper Name Role Phone Unavailable Unavailable Unavailable Surgery Details Not on file Complications Check Surgery Details section. Procedure Estimated Blood Loss Check Surgery Details section. Procedure Findings Check Surgery Details section. Procedure Specimens Taken Check Surgery Details section.
--- OUTSIDE RECORDS SUMMARY | 2024-09-06 10:06 | XMS_ITS | Encounter Summary ---
Author Organization [facility] Address [address] [place] [address] Care Team Providers Care Clothing Trades Workers Name Role Phone Emilia Lincoln M.D. Primary Care Provider +1- [phone] Reason for Referral * MRI/CAT/PET Scan (Routine) - Pending Review Specialty Diagnoses / Procedures Referred By Contac t Referred To Contact Radiology Diagnoses Atrial Fibrillation Unspecified (HCC) Procedures CT Cardiac Pulmonary Veins with IV Jerardo Buckley M.D., Ph.D. [address] [place] [phone] Phone: tel: fax: [facility] Referral ID Status Reason Start Date Expiration Date V isits Requested Visits Authorized [id number] Pending Review 08/28/2024 08/28/2025 1 1 * Outpatient (Routine) - Authorized Specialty Diagnoses / Procedures Referred By Contac t Referred To Contact Cardiovascular Disease Jerardo Buckley M.D., Ph.D. [address] [place] [phone] Phone: tel: fax: [facility] Referral ID Status Reason Start Date Expiration Date V isits Requested Visits Authorized [id number] Authorized 08/28/2024 02/27/2026 1 1 * Cardiovascular-Diagnostic (Routine) - Authorized Specialty Diagnoses / Procedures Referred By Contac t Referred To Contact Diagnoses Atrial Fibrillation Unspecified (HCC) Procedures Echo Transthoracic (TTE) Jerardo Buckley M.D., Ph.D. [address] [place] [phone] Phone: tel: fax: [facility] Referral ID Status Reason Start Date Expiration Date V isits Requested Visits Authorized [id number] Authorized 08/28/2024 08/28/2025 1 1 * Outpatient (Routine) - Authorized Specialty Diagnoses / Procedures Referred By Contac t Referred To Contact Diagnoses Atrial Fibrillation Unspecified (HCC) Procedures ECG 12 Lead Jerardo Buckley M.D., Ph.D. [address] [place] [phone] Phone: tel: fax: [facility] Referral ID Status Reason Start Date Expiration Date V isits Requested Visits Authorized [id number] Authorized 08/28/2024 08/28/2025 1 1 Reason for Visit * Reason Onset Date Comments Procedure Request 07/31/2024 Ablation Encounter Details Date Type Department Care Team (Latest Contact Info) Description 07/31/2024 Clinical Communication Department of Cardiovascular Medicine in [place], [place] [address] [place] [address] Prescheduling, Provider Procedure Request (Ablation) Social History [...] How often do you attend chur or scientology services? More than 4 times per year [...] 04/26/2024 [facility] - [...] your living situation today? I have a [facility] place to live 05/26/2023 Education Answer Date Recorded What is the highest level of school you have completed or the highest degree you have received? Master's degree (e.g., MA, MS, Tacho, MEd, IN FILE OPERATOR, EARLE) 06/27/2019 Comments No Sex and Gender Information Value Date Recorded Sex Assigned at Female 11/24/2017 7:34 PM VP CLINICAL Legal Sex Female 4:28 AM VP CLINICAL Gender Identity Female 05/03/2021 11:34 AM CDT Sexual Orientation Straight 05/03/2021 11 :34 AM CDT documented as of this encounter Miscellaneous Notes * Telephone Encounter - Serafin Todd - 08/29/2024 2:23 PM CDT Appointments and testing have been scheduled, mailed PAG and sent portal message. * Telephone Encounter - Lani Pearce R.N., CCRN - 08/21/2024 8:30 AM CDT Contacted Alivia Coleman regarding the scheduling for their Afib ablation. Mrs. Coleman was referred by Dr. Buckley for this procedure. Pre-procedure Appointment: Please refer to patient appointment guide Pre-Procedure Testing Ordered: Cardiac CT, Blood work (CBC, BMP, TSH, INR, Type and screen), ECG, TTE Pre-Procedure Testing Completed: Holter (07/12) Case Urgency: current orders active in EMR Procedure Date: 11/24/2023 Procedure: PVI/PFA - Farapulse Calling In for your Report Time: The night before the procedure, please call the [facility] Service Line ([phone]) or the [facility] Backup Line ([phone]) between 7pm and midnight to find out what time to arrive. This automated phone line will have you type in your [facility] Number ([phone]) and birthdate (1945) to determine your arrival time. On the day of your procedure: Check into [facility], [facility] 4th Floor (east [facility]) at the [facility] 4D desk. You do not need to check into the Admissions Desk prior. Fasting Instructions: You must fast prior to this procedure. Please stop eating solid foods 8 hours prior to your arrivaltime. You may continue clear liquids until 2 hours prior to your arrival time. For medication management, please complete as follows: Cardiac Medications: Dofetilide: Please continue Metoprolol: Please hold this medication the morning of the procedure Anticoagulation: Warfarin: In regard to warfarin, continue warfarin and check your INR 6 days prior to the scheduled procedure. Tell your providers that your INR goal for the procedure is 2.0-2.5. Please have your provider adjust your warfarin dosage to meet this goal 6 days prior to the procedure. We will additionally checkyour INR the day before the procedure. Diabetes Medications: Jardiance: Please hold this medication three days prior to your procedure If you are having issues with your blood sugar or questions about your plan for your diabetes medications please contact [phone]. All Other Medications: Continue taking all other medications as prescribed. On the morning of your procedure, take only your prescription medications and skip any supplements that are not prescribed by a medical provider. Contrast Allergy: Yes A prescription will be sent to your pharmacy; please follow the instructions on the medication of when to take your premedication prior to contrast. CPAP/BiPAP: Please bring your CPAP machine with you to your procedure if you currently use one. It may be used during the procedure or as you recover. Same Day Dismissal: For this procedure, you will likely be dismissed the same day. In this case, you will need to either live within 100 miles of [place], [place] or spend the night in [place], [place] post procedure. If you live within 100 miles and live greater than 30 minutes outside of [place], [place]); it is highly recommended that you spend the night in [place], [place]. If you experience any complications or have questions post procedure overnight, please call the [facility] Wastewater Operator at: [phone] and ask for [facility]. They will connect you to the on-call provider to assist you further. You will receive sedation for your procedure, so an adult rivet driver and supervision is required for 24hours after the procedure. Please ensure you have someone present with you the day of your procedure. Please note: If you experience any post-operative complications and/or your procedure is late in the day, you may spend the night in the hospital and if well, be dismissed the next day. Activity Restrictions: Due to being given sedation, you will not be able to drive yourself for 24 hours post procedure. You will be on lifting restrictions after the procedure. Remember-- no lifting, pushing, or pulling anything over 5 pounds for 7-10 days after the ablation. You may shower after 48 hours, but there is no soaking of your access sites for 7-10 days in any body of water (I.e. bath tub, hot tub, swimming pool, etc.). COVID: If you become symptomatic with COVID like symptoms or test positive for COVID prior to your procedure please either call or send a portal message regarding this. Contact information: If you have any further questions prior to your procedure, please feel free to our [facility]' Nurse Phone Line at [phone] (available M-F, 8 am to 5 pm VP CLINICAL). If you have any concerns or questions regarding your schedule, please contact the scheduling team at [phone]. If you have any concerns or questions about your insurance or procedure coverage please contact [facility] office at [phone]. * Telephone Encounter - Thuy Arango R.N. - 08/14/2024 9:33 AM CDT Please schedule a 30 day Mome or MCT cut plug packer (but not an event recorder) to be completed before the ablation. Please continue warfarin and dofetilide around the time of the ablation. Please hold metoprolol on the day of the ablation. Per Dr. Buckley documented in this encounter Plan of Treatment Upcoming Encounters Date Type Department Care Team (Latest Contact Info) Description 09/25/2024 9:45 AM VP CLINICAL Anticoagulation Visit Department of Anticoagulation in [place], [place] [address] [place] [phone] Emilia Lincoln M.D. [address] [place] [phone] 11/20/2024 8:30 AM VP CLINICAL Clinical Communication Virtual Review in [place], [place] 200 [place] [phone] 11/23/2024 9:40 AM VP CLINICAL Appointment Department of Laboratory Medicine and Pathology, [facility], in [place], [place] [address] [place] [phone] Jerardo Buckley M.D., Ph.D. [address] [place] [phone] 11/23/2024 10:00 AM VP CLINICAL Ancillary Procedure Department of Cardiovascular Medicine in [place], [place] [address] [place] [phone] Jerardo Buckley M.D., Ph.D. [address] [place] [phone] 11/23/2024 10:40 AM VP CLINICAL Appointment Department of Cardiovascular Diseases in [place], [place] [address] [place] [phone] Jerardo Buckley M.D., Ph.D. [address] [place] [phone] Discharge Disposition: Home or Self Care 11/23/2024 1:00 PM VP CLINICAL Office Visit Department of Cardiovascular Medicine in [place], [place] [address] [place] [phone] Melissa Henriquez P.A.-C., M.S. [address] [place] [phone] 11/23/2024 3:00 PM VP CLINICAL Appointment Department of Radiology, [facility], in [place], [place] [address] [place] [phone] Jerardo Buckley M.D., Ph.D. [address] [place] [phone] 11/24/2024 8:05 AM VP CLINICAL Hospital Encounter Division of Cardiovascular Diseases in [place], [place] [address] [place] [phone] Jerardo Buckley M.D., Ph.D. [address] [place] [phone] Atrial Fibrillation Unspecified (HCC) 11/24/2024 8:05 AM VP CLINICAL - 11/24/2024 11:47 AM VP CLINICAL Surgery Division of Cardiovascular Diseases in [place], [place] [address] [place] [phone] Jerardo Buckley M.D., Ph.D. [address] [place] [phone] PULSED FIELD ABLATION Scheduled Orders Name Type Priority Associated Diagnoses Order Schedule CBC without Differential Lab Routine Atrial Fibrillation Unspecified (HCC) Expected: 11/23/2024, Expires: 11/28/2025 Basic Metabolic Panel Lab Routine Atrial Fibrillation Unspecified (HCC) Expected: 11/23/2024, Expires: 11/28/2025 Thyroid Function [place] Lab Routine Atrial Fibrillation Unspecified (HCC) Expected: 11/23/2024, Expires: 11/28/2025 Prothrombin Time (PT) Lab Routine Atrial Fibrillation Unspecified (HCC) Expected: 11/23/2024, Expires: 11/28/2025 ECG 12 Lead ECG Routine Atrial Fibrillation Unspecified (HCC) Expected: 11/23/2024, Expires: 11/28/2025 Echo Transthoracic (TTE) Echocardiography Routine Atrial Fibrillation Unspecified (HCC) Expected: 11/23/2024, Expires: 11/28/2025 Type and Screen (with Reflex Antibody ID) Lab Routine Atrial Fibrillation Unspecified (HCC) Expected: 11/23/2024, Expires: 11/28/2025 CT Cardiac Pulmonary Veins with IV Imaging RAD - Routine (most inpatients and all outpatients) Atrial Fibrillation Unspecified (HCC) Expected: 11/23/2024, Expires: 11/28/2025 Scheduled Referrals Name Type Priority Associated Diagnoses Order Schedule Cardiovascular Disease office visit (clinic) Outpatient Referral Routine Expect ed: 11/23/2024, Expires: 11/28/2025 documented as of this encounter Visit Diagnoses Diagnosis Atrial Fibrillation Unspecified (HCC)- Primary Atrial Fibrillation Unspecified (HCC)- Primary Atrial Fibrillation Unspecified (HCC) documented in this encounter Additional Health Concerns Assessment Noted Time PHQ-9 Depression Total Score: 8 04/26/20 24 10:43 AM CDT documented as of this encounter Care Teams Clothing Trades Workers Relationship Specialty Start Date End Date Emilia Lincoln M.D. [address] [place] [phone] PCP - General Family Medicine 08/13/23 documented as of this encounter
--- OUTSIDE RECORDS SUMMARY | 2024-09-06 10:06 | XMS_ITS | Encounter Summary ---
Author Organization [facility] Address [address] [place] [address] Care Team Providers Care Door Puller Name Role Phone Emilia Lincoln M.D. Primary Care Provider +1- [phone] Reason for Referral * Outpatient (Routine) - Authorized Specialty Diagnoses / Procedures Referred By Contac t Referred To Contact Diagnoses Atrial Fibrillation Paroxysmal (HCC) Procedures ECG 12 Lead Jerardo Buckley M.D., Ph.D. 200 [place] [address] Phone: tel: fax: [facility] Referral ID Status Reason Start Date Expiration Date V isits Requested Visits Authorized [id number] Authorized 07/18/2024 07/18/2025 1 1 * Outpatient (Routine) - Authorized Specialty Diagnoses / Procedures Referred By Contac t Referred To Contact Diagnoses Atrial Fibrillation Paroxysmal (HCC) Procedures ECG Heart rhythm monitor (Holter) Jerardo Buckley M.D., Ph.D. [address] [place] [phone] Phone: tel: fax: [facility] Referral ID Status Reason Start Date Expiration Date V isits Requested Visits Authorized [id number] Authorized 07/18/2024 07/18/2025 1 1 * Outpatient (Routine) - Authorized Specialty Diagnoses / Procedures Referred By Evie saxena Referred To Contact Cardiovascular Disease Jerardo Buckley M.D., Ph.D. [address] [place] [phone] Phone: tel: fax: [facility] Referral ID Status Reason Start Date Expiration Date V isits Requested Visits Authorized [id number] Authorized 07/18/2024 01/17/2026 1 1 Scheduling Instructions Please schedule a visit with Dr. Buckley in March 2024 with tests then Reason for Visit * Outpatient (Routine) - Closed Specialty Diagnoses / Procedures Referred By Evie saxena Referred To Contact Cardiovascular Disease Jerardo Buckley M.D., Ph.D. [address] [place] [phone] Phone: tel: fax: [facility] Referral ID Status Reason Start Date Expiration Date Visits Re quested Visits Authorized [id number] Closed 11/03/2023 11/02/2026 1 1 Encounter Details Date Type Department Care Team (Latest Contact Info) Description 07/18/2024 11:00 AM CDT Office Visit Department of Cardiovascular Medicine in [place], [place] [address] [place] [phone] Jerardo Buckley M.D., Ph.D. [address] [place] [phone] Obesity Body Mass Index 30-39.9 Adult (Primary [...] 02/25/2022 How often do you attend [facility] or pentecostal services? More than 4 times per year 02/25/2022 Do you belong to any clubs o r organizations such as zoroastrianism groups, unions, fraternal or athletic groups, or [...] Answer Date Recorded PHQ-2 Score 3 04/26/2024 [facility] Occupat ional Health - Occupational Stress [...] your living situation today? I have a [facility] place to live 05/26/2023 Education Answer Date Recorded What is the highest level of school you have completed or the highest degree you have received? Master's degree (e.g., MA, MS, Tacho, MEd, MAINTENANCE MECHANIC, EARLE) 06/27/2019 Comments No Sex and Gender Information Value Date Recorded Sex Assigned at Female 11/24/2017 7:34 PM FABRIC SEPARATOR OPERATOR Legal Sex Female 4:28 AM FABRIC SEPARATOR OPERATOR Gender Identity Female 05/03/2021 11:34 AM [...] fibrillation #2 Hypertension #3 Sleep apnea Mrs. Coleman'kia atrial fibrillation is occurring relatively frequently despite [...] Buckley M.D., Ph.D. CT CT Job ID: [id number] documented in this encounter Plan of Treatment Upcoming Encounters Date Type Department Care Team (Latest Contact Info) Description 09/25/2024 9:45 AM FABRIC SEPARATOR OPERATOR Anticoagulation Visit Department of Anticoagulation in [address] [phone] Emilia Lincoln M.D. [address] [place] [phone] 11/20/2024 8:30 AM FABRIC SEPARATOR OPERATOR Clinical Communication Virtual Review in [address] [phone] 11/23/2024 9:40 AM FABRIC SEPARATOR OPERATOR Appointment Department of Laboratory Medicine and Pathology, [facility], in [address] [phone] Jerardo Buckley M.D., Ph.D. [address] [place] [phone] 11/23/2024 10:00 AM FABRIC SEPARATOR OPERATOR Ancillary Procedure Department of Cardiovascular Medicine in [place], [place] [address] [place] [phone] Jerardo Buckley M.D., Ph.D. [address] [place] [phone] 11/23/2024 10:40 AM FABRIC SEPARATOR OPERATOR Appointment Department of Cardiovascular Diseases in [place], [place] [address] [place] [phone] Jerardo Buckley M.D., Ph.D. [address] [place] [phone] Discharge Disposition: Home or Self Care 11/23/2024 1:00 PM FABRIC SEPARATOR OPERATOR Office Visit Department of Cardiovascular Medicine in [place], [place] [address] [place] [phone] Melissa Henriquez P.A.-C., M.S. [address] [place] [phone] 11/23/2024 3:00 PM FABRIC SEPARATOR OPERATOR Appointment Department of Radiology, [facility], in [place], [place] [address] [place] [phone] Jerardo Buckley M.D., Ph.D. [address] [place] [phone] 11/24/2024 8:05 AM FABRIC SEPARATOR OPERATOR Hospital Encounter Division of Cardiovascular Diseases in [address] [phone] Jerardo Buckley M.D., Ph.D. [address] [place] [phone] Atrial Fibrillation Unspecified (HCC) 11/24/2024 8:05 AM FABRIC SEPARATOR OPERATOR - 11/24/2024 11:47 AM FABRIC SEPARATOR OPERATOR Surgery Division of Cardiovascular Diseases in [address] [phone] Jerardo Buckley M.D., Ph.D. [address] [place] [address] PULSED FIELD ABLATION Scheduled Orders Name Type [...] 30-39.9 Adult- Primary Atrial Fibrillation Paroxysmal (HCC) Atrial Fibrillation Unspecified (HCC)- Primary Atrial Fibrillation Unspecified (HCC) documented in this encounter Additional Health Concerns Assessment Noted Time PHQ-9 Depression Total Score: 8 04/26/20 24 10:43 AM CDT documented as of this encounter Care Teams Door Puller Relationship Specialty Start Date End Date Emilia Lincoln M.D. [address] [place] [phone] PCP - General Family Medicine 08/13/23 documented as of this encounter
--- OUTSIDE RECORDS SUMMARY | 2024-09-06 10:06 | XMS_ITS | Encounter Summary ---
Author Organization [facility] Address [address] [place] [address] Care Team Providers Care Sound Editor Name Role Phone Emilia Lincoln M.D. Primary Care Provider +1- [phone] Reason for Referral * Outpatient (Routine) - Closed Specialty Diagnoses / Procedures Referred By Contac t Referred To Contact Anticoagulation Emilia Lincoln M.D. [address] [place] [phone] Phone: tel: fax: [facility] Referral ID Status Reason Start Date Expiration Date Visits Re quested Visits Authorized [id number] Closed 07/31/2024 01/30/2026 1 1 Scheduling Instructions 4 weeks Reason for Visit * Outpatient (Routine) - Closed Specialty Diagnoses / Procedures Referred By Contac t Referred To Contact Anticoagulation Diagnoses Thrombosis Deep Vein Personal History Detention (Current) Anticoagulant Treatment Monitoring For Therapeutic Drug Therapy Atrial Fibrillation Paroxysmal (HCC) Emilia Lincoln M.D. [id number] [place] [phone] Phone: tel: fax: [facility] Referral ID Status Reason Start Date Expiration Date Visits Re quested Visits Authorized [id number] Closed 07/03/2024 01/02/2026 1 1 Encounter Details Date Type Department Care Team (Latest Contact Info) Description 07/31/2024 9:45 AM CDT Anticoagulation Visit Department of Anticoagulation in [place], [place] [address] [place] [address] Emilia Lincoln M.D. 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 More than 4 times [...] PHQ-2 Score 3 04/26/2024 [facility] Occupat ional [facility] - [...] Master's degree (e.g., MA, MS, Tacho, MEd, PAYROLL REPRESENTATIVE, EARLE) 06/27/2019 Comments No Sex and Gender Information Value Date Recorded Sex Assigned at Female 11/24/2017 7:34 PM LEADITE HEATER Legal Sex Female 4:28 AM LEADITE HEATER Gender Identity Female 05/03/2021 11:34 AM CDT Sexual Orientation Straight 05/03/2021 11 :34 AM CDT documented as of this encounter Patient Instructions * Patient Instructions* Becky Howard R.N. - 07/31/2024 9:45 AM CDT The [...] please call Primary Care Anticoagulation Program at [phone] from 7:30 am to 4:30 pm. Wednesday-Wednesday [...] if you start any herbal or other habx-gym-ingrlij product (check with your doctor, a nurse, [...] (Latest Contact Info) Description 09/25/2024 9:45 AM LEADITE HEATER Anticoagulation Visit Department of Anticoagulation in [address] [phone] Emilia Lincoln M.D. [address] [place] [phone] 11/20/2024 8:30 AM LEADITE HEATER Clinical Communication Virtual Review in [address] [phone] 11/23/2024 9:40 AM LEADITE HEATER Appointment Department of Laboratory Medicine and Pathology, [facility], in [address] [phone] Jerardo Buckley M.D., Ph.D. [address] [place] [phone] 11/23/2024 10:00 AM LEADITE HEATER Ancillary Procedure Department of Cardiovascular Medicine in [address] [address] Jerardo Buckley M.D., Ph.D. [address] [place] [phone] 11/23/2024 10:40 AM LEADITE HEATER Appointment Department of Cardiovascular Diseases in [place], [place] [address] [place] [phone] Jerardo Buckley M.D., Ph.D. [address] [place] [phone] Discharge Disposition: Home or Self Care 11/23/2024 1:00 PM LEADITE HEATER Office Visit Department of Cardiovascular Medicine in [place], [place] [address] [place] [phone] Melissa Henriquez P.A.-C., M.S. [address] [place] [phone] 11/23/2024 3:00 PM LEADITE HEATER Appointment Department of Radiology, [facility] in [place], [place] [address] [place] [phone] Jerardo Buckley M.D., Ph.D. [address] [place] [phone] 11/24/2024 8:05 AM LEADITE HEATER Hospital Encounter Division of Cardiovascular Diseases in [address] [phone] Jerardo Buckley M.D., Ph.D. [address] [place] [phone] Atrial Fibrillation Unspecified (HCC) 11/24/2024 8:05 AM LEADITE HEATER - 11/24/2024 11:47 AM LEADITE HEATER Surgery Division of Cardiovascular Diseases in [address] [phone] Jerardo Buckley M.D., Ph.D. [address] [place] [phone] PULSED FIELD ABLATION Scheduled Referrals Name Type Priority Associated Diagnoses Order Schedule Anticoagulation nurse visit (clinic) Outpatient Referral Routine Expected: 08/28/2024, Expires: 10/30/2025 documented as of this encounter Procedures Procedure Name Priority Date/Time Associated Diagnosis Comments PROTHROMBIN TIME (PT), P Routine 07/31/2024 documented in this encounter Results * Prothrombin Time (PT) (07/31/2024) EXT INR 2.00 PATIENT PO INT OF CARE DEVICE Blood (Blood, Venous) 07/31/2024 us Historical Provider LAB BLOOD ADD-ON Final Resul t PATIENT POINT OF CARE DEVICE documented in this encounter Visit Diagnoses Diagnosis Thrombosis Deep Vein Personal History Detention (Current) Anticoagulant Treatment Monitoring For Therapeutic Drug Therapy Atrial Fibrillation Paroxysmal (HCC) Atrial Fibrillation Unspecified (HCC)- Primary Atrial Fibrillation Unspecified (HCC) documented in this encounter Additional Health Concerns Assessment Noted Time PHQ-9 Depression Total Score: 8 04/26/20 24 10:43 AM CDT documented as of this encounter Care Teams Sound Editor Relationship Specialty Start Date End Date Emilia Lincoln M.D. [address] [place] [phone] PCP - General Family Medicine 08/13/23 documented as of this encounter
--- OUTSIDE RECORDS SUMMARY | 2024-09-06 10:06 | XMS_ITS | Encounter Summary ---
Author Organization [facility] Address [address] [place] [address] Care Team Providers Care Warm In Worker Name Role Phone Emilia Lincoln M.D. Primary Care Provider +1- [phone] Reason for Referral * Outpatient (Routine) - Authorized Specialty Diagnoses / Procedures Referred By Contac t Referred To Contact Anticoagulation Diagnoses Thrombosis Deep Vein Personal History Chcf (Current) Anticoagulant Treatment Monitoring For Therapeutic Drug Therapy Atrial Fibrillation Paroxysmal (HCC) Emilia Lincoln M.D. [address] [place] [phone] Phone: tel: fax: [facility] Referral ID Status Reason Start Date Expiration Date V isits Requested Visits Authorized [id number] Authorized 08/29/2024 02/28/2026 1 1 Reason for Visit * Outpatient (Routine) - Closed Specialty Diagnoses / Procedures Referred By Contac t Referred To Contact Anticoagulation Emilia Lincoln M.D. [address] [place] [phone] Phone: tel: fax: [facility] Referral ID Status Reason Start Date Expiration Date Visits Re quested Visits Authorized [id number] Closed 07/31/2024 01/30/2026 1 1 Encounter Details Date Type Department Care Team (Latest Contact Info) Description 08/29/2024 9:00 AM CDT Anticoagulation Visit Department of Anticoagulation in [place], [place] [address] [place] [address] Emilia Lincoln M.D. [address] [phone] Thrombosis Deep Vein Personal History (Primary Dx); Chcf (Current) Anticoagulant Treatment; Monitoring For Therapeutic Drug [...] often do you attend chur ch or zoroastrianism services? More than 4 times per year 02/25/2022 Do you belong to any clubs o r organizations such as anabaptist groups, unions, fraternal or athletic groups, or [...] Answer Date Recorded PHQ-2 Score 3 04/26/2024 [facility] of Occupat ional Health - [...] Master's degree (e.g., MA, MS, Tacho, MEd, ENGINE INSPECTOR, EARLE) 06/27/2019 Comments No Sex and Gender Information Value Date Recorded Sex Assigned at Female 11/24/2017 7:34 PM DRY CLEANING SUPERVISOR Legal Sex Female 4:28 AM DRY CLEANING SUPERVISOR Gender Identity Female 05/03/2021 11:34 AM CDT Sexual Orientation Straight 05/03/2021 11 :34 AM CDT documented as of this encounter Patient Instructions * Patient Instructions* Diane Marie, R.N. - 08/29/2024 9:00 AM CDT The day before your next INR review you will receive a message via Patient Online Service (portal) asking you to report your INR results and complete an attached questionnaire. Your next monthly review report date is 09/25/24. Please continue to test your INR weekly and contact the anticoagulation clinic on the day of testing if your INR falls outside of goal range or if your INR changes by 1.0 or greater in a week. You will need to call the Anticoagulation Program at thetime of your scheduled nurse visit or you can complete the Anticoagulation Pre-Visit Questionnaire and if no additional information is needed, your dosing can be provided via your Patient portal. To reschedule your appointment or for questions about your warfarin, please call Primary Care Anticoagulation Program at [phone] from 7:30 am to 4:30 pm. Wednesday-Wednesday [...] if you start any herbal or other vawa-lae-elzffih product (check with your doctor, a nurse, or pharmacist). If you change your diet significantly. If you decide to stop or start using tobacco or alcohol. If you notice unusual bruising or bleeding. If you notice dark, tarry, or bright red stools or blood in your urine. If you have a painful and swollen calf. documented in this encounter Progress Notes * Diane Marie RHarmonyN. - 08/29/2024 9:00 AM CDT Information Discussed Called patient, informed of warfarin dosing and f/u plan. PLAN Disposition/Recommendation: self-care is appropriate at this time, patient encouraged to call back with questions Information/Education: patient/caller able to teach back Caller agreeable to plan of care: yes The following references were used: provider [facility] documented in this encounter Plan of Treatment Upcoming Encounters Date Type Department Care Team (Latest Contact Info) Description 09/25/2024 9:45 AM DRY CLEANING SUPERVISOR Anticoagulation Visit Department of Anticoagulation in [place], [place] [address] [place] [phone] Emilia Lincoln M.D. [address] [place] [phone] 11/20/2024 8:30 AM DRY CLEANING SUPERVISOR Clinical Communication Virtual Review in [place], [place] 200 [place] [address] 11/23/2024 9:40 AM DRY CLEANING SUPERVISOR Appointment Department of Laboratory Medicine and Pathology, [facility], in [place], [place] [address] [place] [phone] Jerardo Buckley M.D., Ph.D. [address] [place] [phone] 11/23/2024 10:00 AM DRY CLEANING SUPERVISOR Ancillary Procedure Department of Cardiovascular Medicine in [place], [place] [address] [place] [phone] Jerardo Buckley M.D., Ph.D. [address] [place] [phone] 11/23/2024 10:40 AM DRY CLEANING SUPERVISOR Appointment Department of Cardiovascular Diseases in [address] [phone] Jerardo Buckley M.D., Ph.D. [address] [place] [phone] Discharge Disposition: Home or Self Care 11/23/2024 1:00 PM DRY CLEANING SUPERVISOR Office Visit Department of Cardiovascular Medicine in [address] [phone] Melissa Henriquez P.A.-C., M.S. [address] [place] [phone] 11/23/2024 3:00 PM DRY CLEANING SUPERVISOR Appointment Department of Radiology, [facility], in [place], [place] [address] [place] [phone] Jerardo Buckley M.D., Ph.D. [address] [place] [phone] 11/24/2024 8:05 AM DRY CLEANING SUPERVISOR Hospital Encounter Division of Cardiovascular Diseases in [place], [place] [address] [place] [phone] Jerardo Buckley M.D., Ph.D. [address] [place] [phone] Atrial Fibrillation Unspecified (HCC) 11/24/2024 8:05 AM DRY CLEANING SUPERVISOR - 11/24/2024 11:47 AM DRY CLEANING SUPERVISOR Surgery Division of Cardiovascular Diseases in [place], [place] [address] [place] [phone] Jerardo Buckley M.D., Ph.D. [address] [place] [phone] PULSED FIELD ABLATION Scheduled Referrals Name Type Priority Associated Diagnoses Orde r Schedule Anticoagulation nurse visit (clinic) Outpatient Referral Routine Thrombosis Deep Vein Personal History Chcf (Current) Anticoagulant Treatment Monitoring For Therapeutic Drug Therapy Atrial Fibrillation Paroxysmal (HCC) Expected: 09/25/2024, Expires: 11/29/2025 documented as of this encounter Procedures Procedure Name Priority Date/Time Associated Diagnosis Comments PROTHROMBIN TIME (PT), P Routine 08/28/2024 documented in this encounter Results * Prothrombin Time (PT) (08/28/2024) EXT INR 2.70 PATIENT PO INT OF CARE DEVICE Blood (Blood, Venous) 08/28/2024 Narrative Resulting Agency Comment Home INR us Historical Provider LAB BLOOD ADD-ON Final Resul t PATIENT POINT OF CARE DEVICE documented in this encounter Visit Diagnoses Diagnosis Atrial Fibrillation Unspecified (HCC)- Primary Thrombosis Deep Vein Personal History- Primary Chcf (Current) Anticoagulant Treatment Monitoring For Therapeutic Drug Therapy Atrial Fibrillation Paroxysmal (HCC) Atrial Fibrillation Unspecified (HCC) documented in this encounter Additional Health Concerns Assessment Noted Time PHQ-9 Depression Total Score: 8 04/26/20 24 10:43 AM CDT documented as of this encounter Care Teams Warm In Worker Relationship Specialty Start Date End Date Emilia Lincoln M.D. [address] [phone] PCP - General Family Medicine 08/13/23 documented as of this encounter
--- OUTSIDE RECORDS SUMMARY | 2024-09-06 10:07 | XMS_ITS | Encounter Summary ---
Author Organization [facility] Address [address] [place] [address] Care Team Providers Care Getter Operator Name Role Phone Emilai Lincoln M.D. Primary Care Provider +1- [phone] Reason for Visit * Outpatient (Routine) - Closed Specialty Diagnoses / Procedures Referred By Contmichael t Referred To Contact Anticoagulation Emilia Lincoln M.D. [address] [place] [phone] Phone: tel: fax: [facility] Referral ID Status Reason Start Date Expiration Date Visits Re quested Visits Authorized [id number] Closed 05/08/2024 11/07/2025 1 1 Encounter Details Date Type Department Care Team (Latest Contact Info) Description 2024 8:15 AM CDT Anticoagulation Visit Department of Anticoagulation in [place], [place] [address] [place] [address] Emilia Lincoln M.D. [address] [place] [phone] Thrombosis Deep Vein Personal History (Primary Dx); Molder Wax Ball (Current) Anticoagulant Treatment; Monitoring For Therapeutic Drug [...] How often do you attend chur or caodaism services? More than 4 times per year 02/25/2022 Do you belong to any clubs o r organizations such as hoahaoism groups, unions, fraternal or athletic groups, or [...] PHQ-2 Score 3 04/26/2024 [facility] of Occupat ional [facility] - Occupational Stress Questionnaire Answer Date [...] your living situation today? I have a [facility] place to live 05/26/2023 Education Answer Date Recorded What is the highest level of school you have completed or the highest degree you have received? Master's degree (e.g., MA, MS, Tacho, MEd, TILE EDGER, EARLE) 06/27/2019 Comments No Sex and Gender Information Value Date Recorded Sex Assigned at Female 11/24/2017 7:34 PM SALES OPERATIONS ANALYST Legal Sex Female 4:28 AM SALES OPERATIONS ANALYST Gender Identity Female 05/03/2021 11:34 AM CDT [...] please call Primary Care Anticoagulation Program at [phone] from 7:30 am to 4:30 pm. Wednesday-Wednesday [...] if you start any herbal or other lpjj-ekw-mfltsyg product (check with your doctor, a nurse, [...] (Latest Contact Info) Description 09/25/2024 9:45 AM SALES OPERATIONS ANALYST Anticoagulation Visit Department of Anticoagulation in [address] [phone] Emilia Lincoln M.D. [address] [phone] 11/20/2024 8:30 AM SALES OPERATIONS ANALYST Clinical Communication Virtual Review in [place], [place] 200 [place] [address] 11/23/2024 9:40 AM SALES OPERATIONS ANALYST Appointment Department of Laboratory Medicine and Pathology, [facility], in [address] [phone] Jerardo Buckley M.D., Ph.D. [address] [place] [phone] 11/23/2024 10:00 AM SALES OPERATIONS ANALYST Ancillary Procedure Department of Cardiovascular Medicine in [address] [phone] Jerardo Buckley M.D., Ph.D. [address] [place] [phone] 11/23/2024 10:40 AM SALES OPERATIONS ANALYST Appointment Department of Cardiovascular Diseases in [address] [address] Jerardo Buckley M.D., Ph.D. [address] [place] [phone] Discharge Disposition: Home or Self Care 11/23/2024 1:00 PM SALES OPERATIONS ANALYST Office Visit Department of Cardiovascular Medicine in [address] [phone] Melissa Henriquez P.A.-C., M.S. [address] [place] [phone] 11/23/2024 3:00 PM SALES OPERATIONS ANALYST Appointment Department of Radiology, [facility], in [place], [place] [address] [place] [phone] Jerardo Buckley M.D., Ph.D. [address] [place] [phone] 11/24/2024 8:05 AM SALES OPERATIONS ANALYST Hospital Encounter Division of Cardiovascular Diseases in [place], [place] [address] [place] [phone] Jerardo Buckley M.D., Ph.D. [address] [place] [phone] Atrial Fibrillation Unspecified (HCC) 11/24/2024 8:05 AM SALES OPERATIONS ANALYST - 11/24/2024 11:47 AM SALES OPERATIONS ANALYST Surgery Division of Cardiovascular Diseases in [address] [phone] Jerardo Buckley M.D., Ph.D. [address] [place] [phone] PULSED FIELD ABLATION documented as of this encounter Procedures Procedure Name Priority Date/Time Associated Diagnosis Comments PROTHROMBIN TIME (PT), P Routine 2024 documented in this encounter Results * Prothrombin Time (PT) (2024) EXT INR 2.10 2.00 - 3.00 PATIENT POINT OF CARE DEVICE Blood (Blood, Venous) Narrative Resulting Agency Comment hm us Historical Provider LAB BLOOD ADD-ON Final Resul t PATIENT POINT OF CARE DEVICE documented in this encounter Visit Diagnoses Diagnosis Thrombosis Deep Vein Personal History- Primary Molder Wax Ball (Current) Anticoagulant Treatment Monitoring For Therapeutic Drug Therapy Atrial Fibrillation Paroxysmal (HCC) Gastroesophageal Reflux Disease Without Esophagitis Atrial Fibrillation Unspecified (HCC)- Primary Atrial Fibrillation Unspecified (HCC) documented in this encounter Additional Health Concerns Assessment Noted Time PHQ-9 Depression Total Score: 8 04/26/20 24 10:43 AM CDT documented as of this encounter Care Teams Getter Operator Relationship Specialty Start Date End Date Emilia Lincoln M.D. [address] [place] [phone] PCP - General Family Medicine 08/13/23 documented as of this encounter
--- OUTSIDE RECORDS SUMMARY | 2024-09-06 10:07 | XMS_ITS | Encounter Summary ---
Author Organization [facility] Address [address] [place] [address] Care Team Providers Care Photoengraving Retoucher Name Role Phone Emilia Lincoln M.D. Primary Care Provider +1- [phone] Encounter Details Date Type Department Care Team (Late st Contact Info) Description 06/12/2024 Orders Only Department of Anticoagulation in [place], [place] [address] [place] [phone] Jacquie Chavis R.N. [address] [place] [phone] Thrombosis Deep Vein Personal History (Primary Dx); Retrieval Specialist (Current) Anticoagulant Treatment; Monitoring For Therapeutic Drug [...] How often do you attend chur or muslim services? More than 4 times per year [...] Answer Date Recorded PHQ-2 Score 3 04/26/2024 [facility] of Occupat ional Health - Occupational [...] your living situation today? I have a [employer] place to live 05/26/2023 Education Answer Date Recorded What is the highest level of school you have completed or the highest degree you have received? Master's degree (e.g., MA, MS, Tacho, MEd, TECHNICAL SUPERVISOR, EARLE) 06/27/2019 Comments No Sex and Gender Information Value Date Recorded Sex Assigned at Female 11/24/2017 7:34 PM FISHING ROD MECHANIC Legal Sex Female 4:28 AM FISHING ROD MECHANIC Gender Identity Female 05/03/2021 11:34 AM CDT Sexual Orientation Straight 05/03/2021 11 :34 AM CDT documented as of this encounter Plan of Treatment Upcoming Encounters Date Type Department Care Team (Latest Contact Info) Description 09/25/2024 9:45 AM FISHING ROD MECHANIC Anticoagulation Visit Department of Anticoagulation in [place], [place] [address] [place] [address] Emilia Lincoln M.D. [address] [place] [phone] 11/20/2024 8:30 AM FISHING ROD MECHANIC Clinical Communication Virtual Review in [place], [place] 200 [place] [address] 11/23/2024 9:40 AM FISHING ROD MECHANIC Appointment Department of Laboratory Medicine and Pathology, [facility] in [place], [place] [address] [place] [phone] Jerardo Buckley M.D., Ph.D. [address] [place] [phone] 11/23/2024 10:00 AM FISHING ROD MECHANIC Ancillary Procedure Department of Cardiovascular Medicine in [address] [phone] Jerardo Buckley M.D., Ph.D. [address] [place] [phone] 11/23/2024 10:40 AM FISHING ROD MECHANIC Appointment Department of Cardiovascular Diseases in [address] [phone] Jerardo Buckley M.D., Ph.D. [address] [place] [phone] Discharge Disposition: Home or Self Care 11/23/2024 1:00 PM FISHING ROD MECHANIC Office Visit Department of Cardiovascular Medicine in [address] [phone] Melissa Henriquez P.A.-C., M.S. [address] [place] [phone] 11/23/2024 3:00 PM FISHING ROD MECHANIC Appointment Department of Radiology, [facility], in [address] [phone] Jerardo Buckley M.D., Ph.D. [address] [place] [phone] 11/24/2024 8:05 AM FISHING ROD MECHANIC Hospital Encounter Division of Cardiovascular Diseases in [place], [place] [address] [place] [phone] Jerardo Buckley M.D., Ph.D. [address] [place] [phone] Atrial Fibrillation Unspecified (HCC) 11/24/2024 8:05 AM FISHING ROD MECHANIC - 11/24/2024 11:47 AM FISHING ROD MECHANIC Surgery Division of Cardiovascular Diseases in [place], [place] [address] [place] [phone] Jerardo Buckley M.D., Ph.D. [address] [place] [phone] PULSED FIELD ABLATION documented as of this encounter Visit Diagnoses Diagnosis Thrombosis Deep Vein Personal History- Primary Shelter (Current) Anticoagulant Treatment Monitoring For Therapeutic Drug Therapy Atrial Fibrillation Paroxysmal (HCC) Atrial Fibrillation Unspecified (HCC)- Primary Atrial Fibrillation Unspecified (HCC) documented in this encounter Additional Health Concerns Assessment Noted Time PHQ-9 Depression Total Score: 8 04/26/20 24 10:43 AM CDT documented as of this encounter Care Teams Photoengraving Retoucher Relationship Specialty Start Date End Date Emilia Lincoln M.D. [address] [place] [phone] PCP - General Family Medicine 08/13/23 documented as of this encounter
--- OUTSIDE RECORDS SUMMARY | 2024-09-06 10:07 | XMS_ITS | Encounter Summary ---
Author Organization [facility] Address [address] [place] [address] Care Team Providers Care Procurement Specialist Name Role Phone Emilia Lincoln M.D. Primary Care Provider +1- [phone] Reason for Visit * Reason Onset Date Comments Pre-visit Intake 07/10/2024 Encounter Details Date Type Department Care Team (Latest Contact Info) Description 07/10/2024 11:45 AM CDT Clinical Communication Virtual Review in [place], [place] 200 [place] [address] Pre-visit Intake Social History Tobacco Use Types [...] any clubs o r organizations such as mormonism groups, unions, fraternal or athletic groups, or [...] Answer Date Recorded PHQ-2 Score 3 04/26/2024 [facility] Answer [...] your living situation today? I have a [facility] place to live 05/26/2023 Education Answer Date Recorded What is the highest level of school you have completed or the highest degree you have received? Master's degree (e.g., MA, MS, Tacho, MEd, SQL MANAGER, EARLE) 06/27/2019 Comments No Sex and Gender Information Value Date Recorded Sex Assigned at Female 11/24/2017 7:34 PM CATH LAB Legal Sex Female 4:28 AM CATH LAB Gender Identity Female 05/03/2021 11:34 AM CDT Sexual Orientation Straight 05/03/2021 11 :34 AM CDT documented as of this encounter Plan of Treatment Upcoming Encounters Date Type Department Care Team (Latest Contact Info) Description 09/25/2024 9:45 AM CATH LAB Anticoagulation Visit Department of Anticoagulation in [place], [place] [address] [place] [address] Emilia Lincoln M.D. [address] [place] [phone] 11/20/2024 8:30 AM CATH LAB Clinical Communication Virtual Review in [place], [place] 200 [place] [address] 11/23/2024 9:40 AM CATH LAB Appointment Department of Laboratory Medicine and Pathology, [facility], in [address] [phone] Jerardo Buckley M.D., Ph.D. [address] [place] [phone] 11/23/2024 10:00 AM CATH LAB Ancillary Procedure Department of Cardiovascular Medicine in [address] [phone] Jerardo Buckley M.D., Ph.D. [address] [place] [phone] 11/23/2024 10:40 AM CATH LAB Appointment Department of Cardiovascular Diseases in [address] [phone] Jerardo Buckley M.D., Ph.D. [address] [place] [phone] Discharge Disposition: Home or Self Care 11/23/2024 1:00 PM CATH LAB Office Visit Department of Cardiovascular Medicine in [address] [phone] Melissa Henriquez P.A.-C., M.S. [address] [place] [phone] 11/23/2024 3:00 PM CATH LAB Appointment Department of Radiology, [facility], in [address] [phone] Jerardo Buckley M.D., Ph.D. [address] [place] [phone] 11/24/2024 8:05 AM CATH LAB Hospital Encounter Division of Cardiovascular Diseases in [place], [place] [address] [place] [phone] Jerardo Buckley M.D., Ph.D. [address] [place] [phone] Atrial Fibrillation Unspecified (HCC) 11/24/2024 8:05 AM CATH LAB - 11/24/2024 11:47 AM CATH LAB Surgery Division of Cardiovascular Diseases in [place], [place] [address] [place] [phone] Jerardo Buckley M.D., Ph.D. [address] [place] [phone] PULSED FIELD ABLATION documented as of this encounter Visit Diagnoses Not on filedocumented in this encounter Additional Health Concerns Assessment Noted Time PHQ-9 Depression Total Score: 8 04/26/20 24 10:43 AM CDT documented as of this encounter Care Teams Procurement Specialist Relationship Specialty Start Date End Date Emilia Lincoln M.D. NPMarisabel: [id number] [address] [place] [phone] PCP - General Family Medicine 08/13/23 documented as of this encounter
--- OUTSIDE RECORDS SUMMARY | 2024-09-06 10:07 | XMS_ITS | Encounter Summary ---
Author Organization [facility] Address [address] [place] [address] Care Team Providers Care Associate Doctor Name Role Phone Emilia Lincoln M.D. Primary Care Provider +1- [phone] Reason for Referral * Outpatient (Routine) - Closed Specialty Diagnoses / Procedures Referred By Contac t Referred To Contact Anticoagulation Diagnoses Thrombosis Deep Vein Personal History [facility] (Current) Anticoagulant Treatment Monitoring For Therapeutic Drug Therapy Atrial Fibrillation Paroxysmal (HCC) Emilia Lincoln M.D. [address] [place] [phone] Phone: tel: fax: [facility] Referral ID Status Reason Start Date Expiration Date Visits Re quested Visits Authorized [id number] Closed 06/12/2024 12/12/2025 1 1 Reason for Visit * Outpatient (Routine) - Authorized Specialty Diagnoses / Procedures Referred By Contac t Referred To Contact Anticoagulation Emilia Lincoln M.D. [address] [place] [phone] Phone: tel: fax: [facility] Referral ID Status Reason Start Date Expiration Date V isits Requested Visits Authorized [id number] Authorized 05/15/2024 11/14/2025 300 300 Encounter Details Date Type Department Care Team (Latest Contact Info) Description 06/12/2024 3:00 PM CDT Anticoagulation Visit Department of Anticoagulation in [place], [place] [address] [place] [address] Emilia Lincoln M.D. [address] [phone] Thrombosis Deep Vein Personal History (Primary Dx); [...] often do you attend chur ch or pentecostal services? More than 4 times [...] Answer Date Recorded PHQ-2 Score 3 04/26/2024 [facility] - Occupational Stress Questionnaire Answer [...] Master's degree (e.g., MA, MS, Tacho, MEd, RN CORONARY CARE UNIT, EARLE) 06/27/2019 Comments No Sex and Gender Information Value Date Recorded Sex Assigned at Female 11/24/2017 7:34 PM DOG WALKER Legal Sex Female 4:28 AM DOG WALKER Gender Identity Female 05/03/2021 11:34 AM CDT Sexual Orientation Straight 05/03/2021 11 :34 AM CDT documented as of this encounter Patient Instructions * Patient Instructions* Jacquie Chavis RHarmonyN. - 06/12/2024 3:00 PM CDT The day [...] please call Primary Care Anticoagulation Program at [phone] from 7:30 am to 4:30 pm. Wednesday-Wednesday [...] if you start any herbal or other pzze-vmz-codztec product (check with your doctor, a nurse, [...] (Latest Contact Info) Description 09/25/2024 9:45 AM DOG WALKER Anticoagulation Visit Department of Anticoagulation in [place], [place] [address] [place] [phone] Emilia Lincoln M.D. [address] [place] [phone] 11/20/2024 8:30 AM DOG WALKER Clinical Communication Virtual Review in [place], [place] 200 [place] [address] 11/23/2024 9:40 AM DOG WALKER Appointment Department of Laboratory Medicine and Pathology, [facility] in [place], [place] [address] [place] [phone] Jerardo Buckley M.D., Ph.D. [address] [place] [phone] 11/23/2024 10:00 AM DOG WALKER Ancillary Procedure Department of Cardiovascular Medicine in [place], [place] [address] [place] [phone] Jerardo Buckley M.D., Ph.D. [address] [place] [phone] 11/23/2024 10:40 AM DOG WALKER Appointment Department of Cardiovascular Diseases in [place], [place] [address] [place] [phone] Jerardo Buckley M.D., Ph.D. [address] [place] [phone] Discharge Disposition: Home or Self Care 11/23/2024 1:00 PM DOG WALKER Office Visit Department of Cardiovascular Medicine in [place], [place] [address] [place] [phone] Melissa Henriquez P.A.-C., M.S. [address] [place] [phone] 11/23/2024 3:00 PM DOG WALKER Appointment Department of Radiology, [facility], in [place], [place] [address] [place] [phone] Jerardo Buckley M.D., Ph.D. [address] [place] [phone] 11/24/2024 8:05 AM DOG WALKER Hospital Encounter Division of Cardiovascular Diseases in [place], [place] [address] [place] [phone] Jerardo Buckley M.D., Ph.D. [address] [place] [address] Atrial Fibrillation Unspecified (HCC) 11/24/2024 8:05 AM DOG WALKER - 11/24/2024 11:47 AM DOG WALKER Surgery Division of Cardiovascular Diseases in [place], [place] [address] [place] [address] Jerardo Buckley M.D., Ph.D. [address] [place] [address] PULSED FIELD ABLATION Scheduled Referrals Name Type Priority Associated Diagnoses Orde r Schedule Anticoagulation nurse visit (clinic) Outpatient Referral Routine Thrombosis Deep Vein Personal History Sas Developer (Current) Anticoagulant Treatment Monitoring For Therapeutic Drug [...] ADD-ON Final Resul t Performing Organization Address [facility]/ZIP Co de Phone Number PATIENT POINT OF CARE DEVICE * Prothrombin Time (PT) (06/05/2024) EXT INR 2.50 PATIENT PO INT OF CARE DEVICE Comment:SELF Blood (Blood, Venous) Historical Provider LAB BLOOD ADD-ON Final Resul t PATIENT POINT OF CARE DEVICE documented in this encounter Visit Diagnoses Diagnosis Thrombosis Deep Vein Personal History- Primary Sas Developer (Current) Anticoagulant Treatment Monitoring For Therapeutic Drug Therapy Atrial Fibrillation Paroxysmal (HCC) Atrial Fibrillation Unspecified (HCC)- Primary Atrial Fibrillation Unspecified (HCC) documented in this encounter Additional Health Concerns Assessment Noted Time PHQ-9 Depression Total Score: 8 04/26/20 24 10:43 AM CDT documented as of this encounter Care Teams Associate Doctor Relationship Specialty Start Date End Date Emilia Lincoln M.D. [address] [place] [phone] PCP - General Family Medicine 08/13/23 documented as of this encounter
--- OUTSIDE RECORDS SUMMARY | 2024-09-06 10:07 | XMS_ITS | Encounter Summary ---
Author Organization [facility] Address [address] [place] [address] Care Team Providers Care Occupational Physician Name Role Phone Emilia Lincoln M.D. Primary Care Provider +1- [phone] Reason for Visit * Reason Onset Date Comments Anticoagulation 05/04/2024 Lack of Engageme nt Encounter Details Date Type Department Care Team (Latest Contact Info) Description 05/04/2024 Clinical Communication Department of Anticoagulation in [place], [place] [address] [place] [address] Yun Lau Anticoagulation (Lack of Engagement) Social [...] How often do you attend chur or worship services? More than 4 times [...] Answer Date Recorded PHQ-2 Score 3 04/26/2024 [facility] - Occupational Stress Questionnaire Answer Date [...] your living situation today? I have a [employer] place to live 05/26/2023 Education Answer Date Recorded What is the highest level of school you have completed or the highest degree you have received? Master's degree (e.g., MA, MS, Tacho, MEd, DOMAIN ARCHITECT, EARLE) 06/27/2019 Comments No Sex and Gender Information Value Date Recorded Sex Assigned at Female 11/24/2017 7:34 PM DEMO COORDINATOR Legal Sex Female 4:28 AM DEMO COORDINATOR Gender Identity Female 05/03/2021 11:34 AM [...] time and assistance. Primary Care Anticoagulation Program [phone] documented in this encounter Plan of Treatment Upcoming Encounters Date Type Department Care Team (Latest Contact Info) Description 09/25/2024 9:45 AM DEMO COORDINATOR Anticoagulation Visit Department of Anticoagulation in [place], [place] [address] [place] [phone] Emilia Lincoln M.D. [address] [place] [phone] 11/20/2024 8:30 AM DEMO COORDINATOR Clinical Communication Virtual Review in [place], [place] 200 [place] [phone] 11/23/2024 9:40 AM DEMO COORDINATOR Appointment Department of Laboratory Medicine and Pathology, [facility], in [place], [place] [address] [place] [phone] Jerardo Buckley M.D., Ph.D. [address] [place] [phone] 11/23/2024 10:00 AM DEMO COORDINATOR Ancillary Procedure Department of Cardiovascular Medicine in [place], [place] [address] [place] [phone] Jerardo Buckley M.D., Ph.D. [address] [place] [phone] 11/23/2024 10:40 AM DEMO COORDINATOR Appointment Department of Cardiovascular Diseases in [place], [place] [address] [place] [phone] Jerardo Buckley M.D., Ph.D. [address] [place] [phone] Discharge Disposition: Home or Self Care 11/23/2024 1:00 PM DEMO COORDINATOR Office Visit Department of Cardiovascular Medicine in [place], [place] [address] [place] [phone] Melissa Henriquez P.A.-C., M.S. [address] [place] [phone] 11/23/2024 3:00 PM DEMO COORDINATOR Appointment Department of Radiology, [facility], in [place], [place] [address] [place] [phone] Jerardo Buckley M.D., Ph.D. [address] [place] [phone] 11/24/2024 8:05 AM DEMO COORDINATOR Hospital Encounter Division of Cardiovascular Diseases in [place] [address] [place] [phone] Jerardo Buckley M.D., Ph.D. [address] [place] [phone] Atrial Fibrillation Unspecified (HCC) 11/24/2024 8:05 AM DEMO COORDINATOR - 11/24/2024 11:47 AM DEMO COORDINATOR Surgery Division of Cardiovascular Diseases in [address] [place] [address] Jerardo Buckley M.D., Ph.D. [address] [place] [address] PULSED FIELD ABLATION documented as of this encounter Visit Diagnoses Diagnosis Thrombosis Deep Vein Personal History- Primary Surveyor Mine (Current) Anticoagulant Treatment Monitoring For Therapeutic Drug Therapy Atrial Fibrillation Paroxysmal (HCC) Atrial Fibrillation Unspecified (HCC)- Primary Atrial Fibrillation Unspecified (HCC) documented in this encounter Additional Health Concerns Assessment Noted Time PHQ-9 Depression Total Score: 8 04/26/20 24 10:43 AM CDT documented as of this encounter Care Teams Occupational Physician Relationship Specialty Start Date End Date Emilia Lincoln M.D. [address] [place] [phone] PCP - General Family Medicine 08/13/23 documented as of this encounter
--- OUTSIDE RECORDS SUMMARY | 2024-09-06 10:07 | XMS_ITS | Encounter Summary ---
Author Organization [facility] Address [address] [place] [address] Care Team Providers Care Emergency Medical Service Coordinator Name Role Phone Emilia Lincoln M.D. Primary Care Provider +1- [phone] Reason for Referral * Outpatient (Routine) - Closed Specialty Diagnoses / Procedures Referred By Contac t Referred To Contact Anticoagulation Diagnoses Thrombosis Deep Vein Personal History Detention (Current) Anticoagulant Treatment Monitoring For Therapeutic Drug Therapy Atrial Fibrillation Paroxysmal (HCC) Emilia Lincoln M.D. 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 [address] [place] [phone] Phone: tel: fax: [facility] Referral ID Status Reason Start Date Expiration Date Visits Re quested Visits Authorized [id number] Closed 06/12/2024 12/12/2025 1 1 Encounter Details Date Type Department Care Team (Latest Contact Info) Description 07/03/2024 8:15 AM CDT Anticoagulation Visit Department of Anticoagulation in [place], [place] [address] [place] [address] Emilia Lincoln M.D. [address] [place] [phone] Thrombosis Deep Vein Personal History; Employee Representative (Current) Anticoagulant Treatment; Monitoring For Therapeutic Drug [...] often do you attend chur ch or sikh services? More than 4 times per year [...] Date Recorded PHQ-2 Score 3 04/26/2024 [facility] - Occupational Stress Questionnaire Answer Date [...] Master's degree (e.g., MA, MS, Tacho, MEd, MASTER TECHNICIAN, EARLE) 06/27/2019 Comments No Sex and Gender Information Value Date Recorded Sex Assigned at Female 11/24/2017 7:34 PM THERMAL TECHNICIAN Legal Sex Female 4:28 AM THERMAL TECHNICIAN Gender Identity Female 05/03/2021 11:34 AM [...] please call Primary Care Anticoagulation Program at [phone] from 7:30 am to 4:30 pm. Wednesday-Wednesday [...] if you start any herbal or other cmva-fnh-prhcasu product (check with your doctor, a nurse, [...] (Latest Contact Info) Description 09/25/2024 9:45 AM THERMAL TECHNICIAN Anticoagulation Visit Department of Anticoagulation in [place], [place] [address] [place] [phone] Emilia Lincoln M.D. [address] [place] [phone] 11/20/2024 8:30 AM THERMAL TECHNICIAN Clinical Communication Virtual Review in [place], [place] 200 [place] [address] 11/23/2024 9:40 AM THERMAL TECHNICIAN Appointment Department of Laboratory Medicine and Pathology, [facility] in [place], [place] [address] [place] [phone] Jerardo Buckley M.D., Ph.D. [address] [place] [phone] 11/23/2024 10:00 AM THERMAL TECHNICIAN Ancillary Procedure Department of Cardiovascular Medicine in [place], [place] [address] [place] [phone] Jerardo Buckley M.D., Ph.D. [address] [place] [phone] 11/23/2024 10:40 AM THERMAL TECHNICIAN Appointment Department of Cardiovascular Diseases in [place], [place] [address] [place] [phone] Jerardo Buckley M.D., Ph.D. [address] [place] [phone] Discharge Disposition: Home or Self Care 11/23/2024 1:00 PM THERMAL TECHNICIAN Office Visit Department of Cardiovascular Medicine in [place], [place] [address] [place] [phone] Melissa Henriquez P.A.-C., M.S. [address] [place] [phone] 11/23/2024 3:00 PM THERMAL TECHNICIAN Appointment Department of Radiology, [facility], in [place], [place] [address] [place] [phone] Jerardo Buckley M.D., Ph.D. [address] [place] [phone] 11/24/2024 8:05 AM THERMAL TECHNICIAN Hospital Encounter Division of Cardiovascular Diseases in [place], [place] [address] [place] [phone] Jerardo Buckley M.D., Ph.D. [address] [place] [phone] Atrial Fibrillation Unspecified (HCC) 11/24/2024 8:05 AM THERMAL TECHNICIAN - 11/24/2024 11:47 AM THERMAL TECHNICIAN Surgery Division of Cardiovascular Diseases in [place], [place] [address] [place] [phone] Jerardo Buckley M.D., Ph.D. [address] [place] [phone] PULSED FIELD ABLATION Scheduled Referrals Name Type Priority Associated Diagnoses Orde r Schedule Anticoagulation nurse visit (clinic) Outpatient Referral Routine Thrombosis Deep Vein Personal History Detention (Current) [...] ADD-ON Final Resul t Performing Organization Address City/[facility] Co de Phone Number PATIENT POINT OF [...] documented as of this encounter Care Teams Emergency Medical Service Coordinator Relationship Specialty Start Date End Date Emilia Lincoln M.D. [address] [place] [phone] PCP - General Family Medicine 08/13/23 documented as of this encounter
--- OUTSIDE RECORDS SUMMARY | 2024-09-06 10:07 | XMS_ITS | Encounter Summary ---
Author Organization [facility] Address [address] [place] [address] Care Team Providers Care Hopper Feeder Name Role Phone Emilia Lincoln M.D. Primary Care Provider [phone] Reason for Referral * Outpatient (Routine) - Authorized Specialty Diagnoses / Procedures Referred By Evie t Referred To Contact Family Medicine Diagnoses Thrombosis Deep Vein Personal History Fdc (Current) Anticoagulant Treatment Monitoring For Therapeutic Drug Therapy Atrial Fibrillation Paroxysmal (HCC) Emilia Lincoln M.D. [address] [place] [phone] Phone: tel: fax: [facility] Referral ID Status Reason Start Date Expiration Date V isits Requested Visits Authorized [id number] Authorized 06/12/2024 12/12/2025 1 1 Scheduling Instructions This [id number] visit with your PCP is required by [...] 01/24/2024 Clinical Communication Department of Anticoagulation in [place], [place] [address] [place] [address] Diane Marie, RHarmonyN. [address] [place] [address] Anticoagulation ([facility] Enrollment) Social History Tobacco Use [...] How often do you attend chur or latter-day services? More than 4 times per year 02/25/2022 Do you belong to any clubs o r organizations such as evangelical groups, unions, fraternal or athletic groups, or [...] Answer Date Recorded PHQ-2 Score 3 04/26/2024 [facility] of Occupat ional [facility] - Occupational Stress Questionnaire Answer Date Recorded [...] Master's degree (e.g., MA, MS, Tacho, MEd, HONING MACHINE OPERATOR, EARLE) 06/27/2019 Comments No Sex and Gender Information Value Date Recorded Sex Assigned at Female 11/24/2017 7:34 PM METALLURGICAL LAB TECHNICIAN Legal Sex Female 4:28 AM METALLURGICAL LAB TECHNICIAN Gender Identity Female 05/03/2021 11:34 AM [...] obtained from the patient/patient's medical power of prosecuting attorney. The patient/patient's medical power of prosecuting attorney was informed that a charge, based on the level of service, will be billed to their insurance each month. Only one health care provider can provide these services at a time. Patients have the right to stop these services at any time by letting their care team know. The patient/patient's medical power of prosecuting attorney can contact their insurance company if they have any questions on coverage or [facility] Patient Account Services if they have any questions about their bill. documented in this encounter Plan of Treatment Upcoming Encounters Date Type Department Care Team (Latest Contact Info) Description 09/25/2024 9:45 AM METALLURGICAL LAB TECHNICIAN Anticoagulation Visit Department of Anticoagulation in [place], [place] [address] [place] [address] Emilia Lincoln M.D. [address] [place] [phone] 11/20/2024 8:30 AM METALLURGICAL LAB TECHNICIAN Clinical Communication Virtual Review in [place], [place] [address] [place] [address] 11/23/2024 9:40 AM METALLURGICAL LAB TECHNICIAN Appointment Department of Laboratory Medicine and Pathology, [facility] in [place], [place] [address] [place] [phone] Jerardo Buckley M.D., Ph.D. [address] [place] [phone] 11/23/2024 10:00 AM METALLURGICAL LAB TECHNICIAN Ancillary Procedure Department of Cardiovascular Medicine in [place], [place] [address] [place] [phone] Jerardo Buckley M.D., Ph.D. [address] [place] [phone] 11/23/2024 10:40 AM METALLURGICAL LAB TECHNICIAN Appointment Department of Cardiovascular Diseases in [address] [phone] Jerardo Buckley M.D., Ph.D. [address] [place] [phone] Discharge Disposition: Home or Self Care 11/23/2024 1:00 PM METALLURGICAL LAB TECHNICIAN Office Visit Department of Cardiovascular Medicine in [address] [phone] Melissa Henriquez P.A.-C., M.S. [address] [place] [phone] 11/23/2024 3:00 PM METALLURGICAL LAB TECHNICIAN Appointment Department of Radiology, [facility], in [place], [place] [address] [place] [phone] Jerardo Buckley M.D., Ph.D. [address] [place] [phone] 11/24/2024 8:05 AM METALLURGICAL LAB TECHNICIAN Hospital Encounter Division of Cardiovascular Diseases in [place], [place] [address] [place] [phone] Jerardo Buckley M.D., Ph.D. [address] [place] [address] Atrial Fibrillation Unspecified (HCC) 11/24/2024 8:05 AM METALLURGICAL LAB TECHNICIAN - 11/24/2024 11:47 AM METALLURGICAL LAB TECHNICIAN Surgery Division of Cardiovascular Diseases in [place], [place] [address] [place] [phone] Jerardo Buckley M.D., Ph.D. 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) Anticoagulant Treatment Monitoring For Therapeutic Drug Therapy Atrial Fibrillation Paroxysmal (HCC) 1 Occurrences starting 06/12/2024 until 09/12/2025 documented as of this encounter Visit Diagnoses Diagnosis Thrombosis Deep Vein Personal History- Primary Fdc (Current) Anticoagulant Treatment Monitoring For Therapeutic Drug Therapy Atrial Fibrillation Paroxysmal (HCC) Atrial Fibrillation Unspecified (HCC)- Primary Atrial Fibrillation Unspecified (HCC) documented in this encounter Additional Health Concerns Assessment Noted Time PHQ-9 Depression Total Score: 3 10/27/20 23 8:30 PM METALLURGICAL LAB TECHNICIAN documented as of this encounter Care Teams Hopper Feeder Relationship Specialty Start Date End Date Emilia Lincoln M.D. [id number] [phone] PCP - General Family Medicine 08/13/23 documented as of this encounter
--- NOTE | 2024-09-06 10:15 | CRLHL7_ITS ---
For Patients: As a result of the Century Cures Act, medical imaging exams and procedure reports are released immediately into your electronic medical record. You may view this report before your referring provider. If you have questions, please contact your health care provider. ULTRASOUND-GUIDED CORE NEEDLE BREAST BIOPSY OF TWO AND POST-BIOPSY DIGITAL MAMMOGRAM FOR BIOPSY MARKER PLACEMENT CLINICAL HISTORY: Indeterminate nodule x 2. COMPARISON STUDIES: 09/06/2024. TECHNIQUE: Real-time ultrasound with image documentation was used for targeting the breast lesions. A core needle biopsy system was used to obtain core tissue samples with an 18-gauge needle. Post-biopsy CC and ML digital mammograms were obtained to document position of the biopsy marker. CONSENT and TIME OUT: The procedure, risks, and alternatives were explained to the patient and a consent was signed. [place] Protocol was followed including pre-procedure verification that relevant information/documentation was available, reviewed and properly matched to the patient; consent accurate and complete; and equipment and supplies available. Time Out was conducted just prior to starting procedure to verify the four required elements: patient identity, correct side/site marked (if applicable), procedure, relevant images/results properly labeled and displayed (if applicable). PROCEDURE: All biopsies were performed in a similar manner. The patient was positioned supine on the ultrasound table. The breast was prepped with ChloraPrep. 3 cc of 1% lidocaine was used for local anesthesia. Core samples were obtained. A sterile metal biopsy clip was placed percutaneously to thad the lesion position within the breast. The specimens were placed in 10% formalin and sent to the Pathology Department. Pressure was held on the biopsy site until all bleeding subsided. The skin incision was closed with Steri-Strips. An ice pack was positioned over the biopsy site. The patient tolerated the procedure well. Post-biopsy instructions were reviewed with the patient, and a written copy was given to her. SITE A: LATERALITY: RIGHT breast. LESION: Hypoechoic solid nodule 9 o`clock 2 cm from the nipple measuring 5 x 5 x 6 millimeters. SUSPICION: High. NUMBER OF SAMPLES: 5. BIOPSY CLIP SHAPE: Oval. PROXIMITY OF CLIP TO TARGET: Within the lesion. SITE B: LATERALITY: RIGHT breast. LESION: Solid hypoechoic nodule measuring 8 x 5 x 6 millimeters at 9 o`clock 2 cm from the nipple. SUSPICION: High. NUMBER OF SAMPLES: 5. BIOPSY CLIP SHAPE: HydroMARK. PROXIMITY OF CLIP TO TARGET: Within the lesion. DISTANCE BETWEEN: Sites A and B: 3 millimeters. IMPRESSION: Ultrasound-guided breast biopsy of two sites. When the pathology report is available, an addendum to this report will be made. ACR not applicable Dictated by Jerardo Zarate MD @ 09/06/2024 1:04:19 PM cherylj/Dictated by: Jerardo Zarate MD @ 09/06/2024 1:04:00 PM (Electronically Signed)
--- NOTE | 2024-09-06 11:00 | CRLHL7_ITS ---
For Patients: As a result of the Century Cures Act, medical imaging exams and procedure reports are released immediately into your electronic medical record. You may view this report before your referring provider. If you have questions, please contact your health care provider. PLEASE SEE ULTRASOUND-GUIDED RIGHT BREAST BIOPSY PERFORMED SAME DAY CRL:corrie denton/Dictated by: Jerardo Zartae MD @ 09/06/2024 1:00:00 PM (Electronically Signed)
== END 2024-09-06 09:58 | disposition home or self-care (01) ==
LOC: US 09:58
PROVIDERS: PCP Nurse Practitioner Family; Visit Provider Nurse Practitioner Family
DX: N63.10 Unspecified lump in the right breast, unspecified quadrant (principal); C50.911 Malignant neoplasm of unspecified site of right female breast; R92.8 Other abnormal and inconclusive findings on diagnostic imaging of breast
CPT/HCPCS: 19083; 19084; 77065; 88305; 88341; 88342; 88360; 88361; 88377; A4648; A4649

== ENCOUNTER 2024-09-14 09:41 | Outpatient (CLI) | payer MEDICARE, SELFPAY ==
--- OUTSIDE RECORDS SUMMARY | 2024-09-14 09:45 | XMS_ITS | Clinical Summary ---
Author Organization [facility] Address [place], [place] [address] Care Team Providers Care Electroneurodiagnostic Technician Name Role Phone Telly Gaines Primary Care Provider [phone] Allergies Active Allergy Reactions Criticality Noted Date Comments Iodinated Contrast Media Anaphylaxis High 01/28/2010 Latex Hives 01/28/2010 Metoclopramide Dyspnea 01/16/2014 Tramadol Syncope 07/25/2018 passed out Encounters Date Type Department Care Team Description 09/06/2024 Lab Requisition [facility] [phone] Unknown, Doctor from Last 3 Months Social History Tobacco [...] Associated Diagnosis Comments LAB TRACKING EVENT Routine 09/06/2024 10 :35 AM CDT PATH BREAST CORE BIOPSY Routine 09/06/2024 10:35 AM CDT from Last 3 Months Results * LAB TRACKING EVENT (09/06/2024 10:35 AM CDT) Other (Other) Client Collect / Unknown 09/06/2024 10:35 AM CDT 09/06/2024 10:09 PM CDT Doctor Unknown LAB BILL ONLY [facility] [address] [place] [address], * PATH BREAST CORE BIOPSY (09/06/2024 10:35 AM CDT) Case Report Pathology Report ?Case: [id number] ? Authorizing Provider: ??Unknown, Doctor ?Collected: ? 09/06/2024 1035 ? Ordering Location: ? [facility] ?Received: ?09/07/2024 1016 ? Pathologist: ? Sade Morales MD ? Specimens: ?? A) - Right Breast Core Ultrasound Biopsy ? B) - Right Breast Core Ultrasound Biopsy ? 09/11/2024 11:24 AM CDT [facility] Amendment 09/11/2024 - Amendment issued to incorporate ancillary studies. 09/11/2024 11:24 AM CDT [facility] Final Diagnosis A) RIGHT BREAST, 9:00, 2 CM FROM NIPPLE, #1, ULTRASOUND-GUIDE D CORE BIOPSY: 1. Fragments of sclerosing intraductal papilloma (see comment) 2. Negative for atypia and malignancy B) RIGHT BREAST, 9:00, 2 CM FROM NIPPLE, #2, ULTRASOUND-GUIDE D CORE BIOPSY: 1. Invasive ductal carcinoma ?? a. Norborne grade: II of III; Taylor score: 6 of 9 ?? b. Angio-lymphatic invasion: Absent ?? c. Associated ADH: Present 2. Breast Ancillary Testing: ?a. Hormone Receptors: ?Estrogen receptor: Positive (100%, strong staining) ?Progesterone receptor: Positive (99%, strong staining) ?b. HER2 by IHC: Equivocal (2+ by manual morphometry; reflex to FISH, ordered 09/11/2024) ?c. Ki-67: 11% 09/11/2024 11:24 AM CDT [facility] Amendment electronically signed by Jerardo Thurston MD on 09/11/2024 at 11:23 AM Comment A) Please correlate with imaging to ensure that the lesion was adequately sampled. A,B) These are image-guided breast biopsies. The pathologic findings should be correlated with radiologic and clinical findings prior to treatment decisions. Case seen in consultation with Dr. Jurado 09/11/2024 11:24 AM T [facility] Clinical Information A) INDICATION: Right Breast Mass LESION DESCRIPTION: Oval, circumscribed, solid, hypoechoic Mass LOCATION: 9:00, 2 CM FROM THE NIPPLE SIZE: 8 x 5 x 6 mm CLIP SHAPE: Not specified B) INDICATION: Right Breast Mass LESION DESCRIPTION: Oval, circumscribed, hypoechoic Mass LOCATION: 9:00, 2 CM FROM THE NIPPLE SIZE: 5 x 5 x 6 mm CLIP SHAPE: Not specified 09/11/2024 11:24 AM T [facility] Gross Description A) Label: ??Patient's name and #1 RT breast 9:00 2 CMFN Description: 5 Fibrofatty core biopsies Size: Ranging from 0.4-0.7 cm in length by 0.2 cm in diameter Ink color: Black The specimen is submitted in toto in one cassette. Cold ischemic time: Less than 60 minutes, meets current ASCO/CAP guidelines. ?? The specimen was fixed in formalin for a minimum of 6 hours and not longer than 72 hours. B) Label: ??Patient's name and #2 RT breast 9:00 2 CMFN Description: 5 Fibrofatty core biopsies Size: Ranging from 0.4-1.1 cm in length by 0.2 cm in diameter Ink color: Green The specimen is submitted in toto in one cassette. Cold ischemic time: Less than 60 minutes, meets current ASCO/CAP guidelines. ?? The specimen was fixed in formalin for a minimum of 6 hours and not longer than 72 hours. EVM 09/07/2024 09/11/2024 11:24 AM [facility] Microscopic Description The final diagnosis is based on microscopic examination of appropriate sections of all specimens. A) The presence of black ink is confirmed on tissue sections. ?? Smooth muscle myosin (SMMS) and p63: Highlight myoepithelial cells at periphery and fibrovascular cores ?? CK5/6: Show mosaic staining pattern, predominantly positive ?? ER: Heterogeneous staining without areas of strong diffuse positivity B) The presence of green ink is confirmed on tissue sections. 09/11/2024 11:24 AM [facility] Cytogenetics Summary Cytogenetic testing has been ordered and will be reported separately. 09/11/2024 11:24 AM [facility] SYNOPTIC REPORTING Breast Biomarker Reporting Template BREAST BIOMARKER REPORTING TEMPLATE - B Protocol posted: 10/27/2023 ?? Test(s) Performed: ? Estrogen Receptor (ER) Status: ?Positive (greater than 10% of cells demonstrate nuclear positivity) ? Percentage of Cells with Nuclear Positivity: ?100 % ? Average Intensity of Staining: ?Strong ? Test Type: ?Laboratory-dev eloped test ? Primary Antibody: ?SP1 ?? Test(s) Performed: ? Progesterone Receptor (PgR) Status: ?Positive ? Percentage of Cells with Nuclear Positivity: ?99 % ? Average Intensity of Staining: ?Strong ? Test Type: ?Laboratory-dev eloped test ? Primary Antibody: ?16 ?? Test(s) Performed: ? HER2 by Immunohistochemi stry: ?Equivocal (Score 2+) ? Percentage of Cells with Uniform Intense Complete Membrane Staining: ?0 % ? Test Type: ?Laboratory-dev eloped test ? Primary Antibody: ?4B5 ?? Test(s) Performed: ?Ki-67 ? Ki-67 Percentage of Positive Nuclei: ?11 % ? Primary Antibody: ?MIB1 ?? Cold Ischemia and Fixation Times: ?Meet requirements specified in latest version of the ASCO / CAP Guidelines ?? Testing Performed on Block Number(s): ?B1 METHODS ?? Fixative: ?Formalin ?? Image Analysis: ?Performed ? Method: ?Aperio morphometric analysis ? Biomarkers Scored by Image Analysis: ?ER ? Biomarkers Scored by Image Analysis: ?PgR ? Biomarkers Scored by Image Analysis: ?Ki-67 ?? Comment(s): ?15,291 NUCLEI ANALYZED FOR KI67 09/11/2024 11:24 AM CDT [facility] Additional Information Interpreted at [facility], Central Laboratory - [address] [place], [place] [address] Immunohistochemi stry controls were reviewed and approved by the pathologist during this examination. Patients with breast cancers that are HER2 IHC 3+ or IHC 2+/DOLORES amplified may be eligible for several therapies that disrupt HER2 signaling pathways. Invasive breast cancers that test 'HER2-negative' (IHC 0, 1+ or 2+/DOLORES not-amplified) are more specifically considered 'HER2-negative for protein overexpression/g bharti amplification' since non-overexpresse d levels of the HER2 protein may be present in these cases. Patients with breast cancers that are HER2 IHC 1+ or IHC 2+/DOLORES not amplified may be eligible for a treatment that targets non-amplified/no n-overexpressed levels of HER2 expression for cytotoxic drug delivery (IHC 0 results do not result in eligibility currently). 09/11/2024 11:24 AM CDT [facility] ENTRMT LABORATORY Other (Right Breast Core Ultrasound Biopsy) 09/06/2024 10:35 AM CDT 09/07/2024 10:16 AM CDT Specimen (specimen) (Right Breast Core Ultrasound Biopsy) 09/06/2024 10:35 AM CDT 09/07/2024 10:16 AM CDT Doctor Unknown PATHOLOGY/CYTOLOGY [facility] [address] [place] [address], [place] from Last 3 Months Care Teams Electroneurodiagnostic Technician Relationship Specialty Start Date End Date Telly Gaines [address] [place] [address] PCP - General 07/11/14
--- OUTSIDE RECORDS SUMMARY | 2024-09-14 09:48 | XMS_ITS | Continuity of Care Document ---
Author Organization [facility] Address [address] [place] [id number] Care Team Providers Care Change Release Manager Name Role Phone Emilia Lincoln M.D. Primary Care Provider [phone] Source Comments Patient records contain information from all sites at [facility]. For routine questions regarding patient records, call [phone] during business hours, M-F 8:00 AM - 5:00 PM Central Time. Record requests for emergency care only can be directed to [phone] at any time.[facility] Encounters Date Type Department Care Team Description 4 9:00 AM CDT Anticoagulation Visit Department of Anticoagulation in [place], [place] [address] [place] [address] Emilia Lincoln M.D. Thrombosis Deep Vein Personal History (Primary Dx); 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) Anticoagulant Treatment; Monitoring For Therapeutic Drug Therapy; Atrial Fibrillation Paroxysmal (HCC) 4 10:45 AM CDT Anticoagulation Visit Department of Anticoagulation in [place], [place] [address] [place] [address] Emilia Lincoln M.D. Thrombosis Deep Vein Personal History (Primary Dx); 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) Anticoagulant Treatment; Monitoring For Therapeutic Drug Therapy; Atrial Fibrillation Paroxysmal (HCC) 4 Clinical Communication Department of Family Medicine, [facility], in [address] [phone] Emilia Lincoln M.D. PandaDoc Form ([employer] (CPAP physician's order 08/02/24 ) 4 Orders Only Division of Cardiovascular Diseases in [place], [place] [address] [place] [phone] Ap Buckley M.D., Ph.D. 4 Clinical Communication Department of Cardiovascular Medicine in [place], [place] [address] [place] [phone] Prescheduling, Provider Procedure Request (Ablation) 4 9:45 AM CDT Anticoagulation Visit Department of Anticoagulation in [place], [place] [address] [place] [phone] Emilia Lincoln M.D. Thrombosis Deep Vein Personal History; 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) Anticoagulant Treatment; Monitoring For Therapeutic Drug Therapy; Atrial Fibrillation Paroxysmal (HCC) 4 10:45 AM CDT Anticoagulation Visit Department of Anticoagulation in [place], [place] [address] [place] [phone] Emilia Lincoln M.D. Thrombosis Deep Vein Personal History (Primary Dx); Assisted (Current) Anticoagulant Treatment; Monitoring For Therapeutic Drug Therapy; Atrial Fibrillation Paroxysmal (HCC) 4 11:00 AM CDT Office Visit Department of Cardiovascular Medicine in [place], [place] [address] [place] [phone] Ap Buckley M.D., Ph.D. Obesity Body Mass Index 30-39.9 Adult (Primary Dx); Atrial Fibrillation Paroxysmal (HCC) 4 2:20 PM CDT - 4 11:59 PM CDT Hospital Encounter Department of Cardiovascular Diseases in [place], [place] [address] [place] [phone] Ap Buckley M.D., Ph.D. Atrial Fibrillation Paroxysmal (HCC) Discharge Disposition: Home or Self Care 4 11:45 AM CDT Clinical Communication Virtual Review in [place], [place] 200 [place] [address] Pre-visit Intake 4 8:15 AM CDT Anticoagulation Visit Department of Anticoagulation in [place], [place] [address] [place] [phone] Emilia Lincoln M.D. Thrombosis Deep Vein Personal History; 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) Anticoagulant Treatment; Monitoring For Therapeutic Drug Therapy; Atrial Fibrillation Paroxysmal (HCC) 4 Orders Only Department of Anticoagulation in [place], [place] [address] [place] [phone] Jacquie Chavis R.N. Thrombosis Deep Vein Personal History (Primary Dx); 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) Anticoagulant Treatment; Monitoring For Therapeutic Drug Therapy; Atrial Fibrillation Paroxysmal (HCC) 4 3:00 PM CDT Anticoagulation Visit Department of Anticoagulation in [place], [place] [address] [place] [phone] Emilia Lincoln M.D. Thrombosis Deep Vein Personal History (Primary Dx); 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) Anticoagulant Treatment; Monitoring For Therapeutic Drug Therapy; Atrial Fibrillation Paroxysmal (HCC) 4 8:15 AM CDT Anticoagulation Visit Department of Anticoagulation in [place], [place] [address] [place] [phone] Emilia Lincoln M.D. Thrombosis Deep Vein Personal History (Primary Dx); 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) Anticoagulant Treatment; Monitoring For Therapeutic Drug Therapy; Atrial Fibrillation Paroxysmal (HCC); Gastroesophageal Reflux Disease Without Esophagitis 4 3:30 PM CDT Office Visit [facility] in [place], [place] [address] [place] [phone] Silvino Pineda D.O., M.S. Obstructive Sleep Apnea Adult (Primary Dx) 4 1:15 PM CDT Anticoagulation Visit Department of Anticoagulation in [place], [place] [address] [place] [phone] Emilia Lincoln M.D. Thrombosis Deep Vein Personal History (Primary Dx); 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) Anticoagulant Treatment; Monitoring For Therapeutic Drug Therapy; Atrial Fibrillation Paroxysmal (HCC) 4 2:00 PM CDT Anticoagulation Visit Department of Anticoagulation in [place], [place] [address] [place] [phone] Emilia Lincoln M.D. Thrombosis Deep Vein Personal History (Primary Dx); Assisted (Current) Anticoagulant Treatment; Monitoring For Therapeutic Drug Therapy; Atrial Fibrillation Paroxysmal (HCC) 4 Clinical Communication Department of Anticoagulation in [place], [place] [address] [place] [phone] Yun Lau Anticoagulation (Lack of Engagement) 4 11:11 AM CDT - 4 11:59 PM CDT Hospital Encounter Department of Cardiovascular Diseases in [place], [place] [address] [place] [phone] Hugo Sanchez M.D. Failure Heart (HCC) Discharge Disposition: Home or Self Care 4 9:16 AM CDT - 4 11:10 AM CDT Hospital Encounter Department of Radiology, [facility] in [place], [place] [address] [place] [phone] Hugo Sanchez M.D. Failure Heart (HCC) Discharge Disposition: Home or Self Care 4 8:25 AM CDT - 4 9:15 AM CDT Hospital Encounter Department of Laboratory Medicine and Pathology, [facility] in [place], [place] [address] [place] [phone] Hugo Sanchez M.D. Atrial Fibrillation Paroxysmal (HCC); Failure Heart (HCC) Discharge Disposition: Home or Self Care 4 4:00 PM CDT Office Visit Department of Cardiovascular Medicine in [place], [place] [address] [place] [phone] Hugo Sanchez M.D. Hypertension Essential Primary (Primary Dx); Chronic Diastolic (Congestive) Heart Failure (HCC); Atrial Fibrillation Paroxysmal (HCC); Sleep Apnea; Hyperlipidemia 4 3:00 PM CDT Anticoagulation Visit Department of Anticoagulation in [place], [place] [address] [place] [phone] Emilia Lincoln M.D. Thrombosis Deep Vein Personal History; 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) Anticoagulant Treatment; Monitoring For Therapeutic Drug Therapy; Atrial Fibrillation Paroxysmal (HCC) 4 Refill Department of Family Medicine, [facility], in [address] [phone] Emilia Lincoln M.D. Med Refill 4 3:00 PM CDT Anticoagulation Visit Department of Anticoagulation in [place], [place] [address] [place] [phone] Emilia Lincoln M.D. Thrombosis Deep Vein Personal History (Primary Dx); 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) Anticoagulant Treatment; Monitoring For Therapeutic Drug Therapy; Atrial Fibrillation Paroxysmal (HCC) 4 2:18 PM CDT - 4 11:59 PM CDT Hospital Encounter Department of Laboratory Medicine in [place] [address] [place] [phone] Emilia Lincoln M.D. Atrial Fibrillation Paroxysmal (HCC); Assisted (Current) Anticoagulant Treatment; Monitoring For Therapeutic Drug Therapy; Thrombosis Deep Vein Personal History Discharge Disposition: Home or Self Care 4 2:45 PM CDT Telemedicine [facility] in [place], [place] [address] [place] [phone] Andrews Ko M.B. Kloos Olson, Kristin E RPreeti Insomnia (Primary Dx) 4 Clinical Communication Department of Anticoagulation in [place], [place] [address] [place] [phone] Magda Banks R.NHarmony Anticoagulation (Home INR-machine left at other house) 4 Refill Department of Cardiovascular Medicine in [place], [place] [address] [place] [phone] Guru Cruz M.D. Med Refill 4 Refill Department of Cardiovascular Medicine in [place], [place] [address] [place] [phone] Guru Cruz M.D. Med Refill 4 Clinical Communication Department of Cardiovascular Medicine in [place], [place] [address] [place] [address] Blanket Winder OperatorHi M.D. Echo Move Up Request 4 Clinical Communication Department of Cardiovascular Medicine in [address] [phone] Hugo Sanchez M.D. 4 1:30 PM CDT Anticoagulation Visit Department of Anticoagulation in [address] [phone] Emilia Lincoln M.D. Atrial Fibrillation Paroxysmal (HCC); 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) Anticoagulant Treatment; Monitoring For Therapeutic Drug Therapy; Thrombosis Deep Vein Personal History 4 Clinical Communication Department of Anticoagulation in [address] [phone] Diane Marie R.N. Anticoagulation ([facility] Enrollment) 4 9:15 AM CDT Anticoagulation Visit Department of Anticoagulation in [address] [phone] Emilia Lincoln M.D. Atrial Fibrillation Paroxysmal (HCC); Assisted (Current) Anticoagulant Treatment; Monitoring For Therapeutic Drug Therapy; Thrombosis Deep Vein Personal History 4 Orders Only [facility] Emilia Lincoln M.D. 4 12:30 PM LEADERSHIP INTERN Clinical Communication Virtual Review in [address] [phone] Pre-visit Intake 4 3:00 PM LEADERSHIP INTERN Anticoagulation Visit Department of Anticoagulation in [address] [phone] Telly Gaines M.D. Atrial Fibrillation Paroxysmal (HCC); Assisted (Current) Anticoagulant Treatment; Monitoring For Therapeutic Drug Therapy; Thrombosis Deep Vein Personal History 4 Refill Department of Family Medicine, [facility], in [address] [phone] Hannah Reich APRN, Mari.N.P., D.N.P. Med Refill 4 11:15 AM LEADERSHIP INTERN Anticoagulation Visit Department of Anticoagulation in [address] [place] [address] Telly Gaines M.D. Atrial Fibrillation Paroxysmal (HCC) (Primary Dx); Assisted (Current) Anticoagulant Treatment; Monitoring For Therapeutic Drug Therapy; Thrombosis Deep Vein Personal History 4 8:15 AM LEADERSHIP INTERN Anticoagulation Visit Department of Anticoagulation in [place], [place] [address] [place] [phone] Emilia Lincoln M.D. Thrombosis Deep Vein Personal History (Primary Dx); Assisted (Current) Anticoagulant Treatment; Monitoring For Therapeutic Drug Therapy; Atrial Fibrillation Paroxysmal (HCC) 4 10:45 AM LEADERSHIP INTERN Clinical Communication Virtual Review in [place], [place] 200 [place] [address] Previsit Preparation (ROSA ELENA DD) 4 Clinical Communication [facility] in [address] [phone] Andrews Ko M.B. 4 4:00 PM LEADERSHIP INTERN Anticoagulation Visit Department of Anticoagulation in [place], [place] [address] [place] [phone] Telly Gaines M.D. Atrial Fibrillation Paroxysmal (HCC); Assisted (Current) Anticoagulant Treatment; Monitoring For Therapeutic Drug Therapy; Thrombosis Deep Vein Personal History 4 9:30 AM [facility] Telemedicine Center for Sleep Medicine in [place], [place] [address] [place] [phone] Andrews Ko M.B. Obstructive Sleep Apnea Adult (Primary Dx) 4 10:45 AM LEADERSHIP INTERN Anticoagulation Visit Department of Anticoagulation in [place], [place] [address] [place] [phone] Telly Gaines M.D. Atrial Fibrillation Paroxysmal (HCC); 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) Anticoagulant Treatment; Monitoring For Therapeutic Drug Therapy; Thrombosis Deep Vein Personal History 4 9:30 AM LEADERSHIP INTERN Anticoagulation Visit Department of Anticoagulation in [place], [place] [address] [place] [phone] Emilia Lincoln M.D. Thrombosis Deep Vein Personal History (Primary Dx); Assisted (Current) Anticoagulant Treatment; Monitoring For Therapeutic Drug Therapy; Atrial Fibrillation Paroxysmal (HCC) 4 7:30 AM LEADERSHIP INTERN - 4 11:59 PM LEADERSHIP INTERN Hospital Encounter [facility] in [place], [place] [address] [place] [phone] Andrews Ko M.B. Discharge Disposition: Home or Self Care 4 Clinical Communication Department of Cardiovascular Medicine in [place], [place] [address] [place] [phone] Blanket Winder OperatorHi M.D. 4 Clinical Communication Department of Cardiovascular Medicine in [place], [place] [address] [place] [phone] Prescheduling, Provider Triage 4 Orders Only [facility] [address] [place] [phone] Fede Palacios M.D. Chronic Diastolic (Congestive) Heart Failure (HCC) (Primary Dx) 4 4:00 PM LEADERSHIP INTERN Anticoagulation Visit Department of Anticoagulation in [place], [place] [address] [place] [phone] Telly Gaines M.D. Atrial Fibrillation Paroxysmal (HCC); 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) Anticoagulant Treatment; Monitoring For Therapeutic Drug Therapy; Thrombosis Deep Vein Personal History 4 Orders Only Department of Cardiovascular Medicine in [place], [place] [address] [place] [phone] Fede Palacios M.D. 4 8:45 AM LEADERSHIP INTERN Anticoagulation Visit Department of Anticoagulation in [place], [place] [address] [place] [phone] Emilia Lincoln M.D. Thrombosis Deep Vein Personal History (Primary Dx); Assisted (Current) Anticoagulant Treatment; Monitoring For Therapeutic Drug Therapy; Atrial Fibrillation Paroxysmal (HCC) 3 9:01 AM LEADERSHIP INTERN - 4 11:59 PM LEADERSHIP INTERN Hospital Encounter [facility] in [place], [place] [address] [place] [phone] Andrews Ko M.B. Obstructive Sleep Apnea Adult Discharge Disposition: Home or Self Care 12/28/202 3 2:45 PM LEADERSHIP INTERN Telemedicine [facility] in [place], [place] [address] [place] [address] Andrews Ko M.B. Obstructive Sleep Apnea Adult (Primary Dx) 3 Clinical Communication [facility] in [place], [place] [address] [place] [address] Storm Mcgee M.D. 3 9:40 AM LEADERSHIP INTERN - 3 11:59 PM LEADERSHIP INTERN Hospital Encounter Department of Laboratory Medicine in [place], [place] [address] [place] [address] Fede Palacios M.D. Hypertension Pulmonary (HCC); Anemia Iron Deficiency; Chronic Diastolic (Congestive) Heart Failure (HCC) Discharge Disposition: Home or Self Care 3 Refill Department of Cardiovascular Medicine in [place], [place] [address] [place] [address] Guru Cruz M.D. Med Refill 3 2:15 PM LEADERSHIP INTERN Infusion Department of Infusion Therapy in [place], [place] [address] [place] [address] Fede Palacios M.D. Anemia Iron Deficiency (Primary Dx); Anemia Discharge Disposition: Home or Self Care 3 Documentation Department of Cardiovascular Diseases in [place], [place] [address] [place] [address] Radha Ferrara 3 9:04 AM LEADERSHIP INTERN - 3 11:59 PM LEADERSHIP INTERN Hospital Encounter Department of Cardiac Rehabilitation in [place], [place] [address] [place] [address] Ap Buckley M.D., Ph.D. Hypertension Pulmonary (HCC) Discharge Disposition: Home or Self Care 3 10:00 AM LEADERSHIP INTERN Comprehensive Visit Department of Cardiovascular Medicine in [place], [place] [address] [place] [address] Fede Palacios M.D. Anemia Iron Deficiency (Primary Dx); Hypertension Pulmonary (HCC); Chronic Diastolic (Congestive) Heart Failure (HCC) 3 8:00 AM LEADERSHIP INTERN Comprehensive Visit Department of Cardiovascular Medicine in [place], [place] [address] [place] [phone] Ap Buckley M.D., Ph.D. Atrial Fibrillation Unspecified (HCC); Atrial Fibrillation Paroxysmal (HCC) 3 10:45 AM LEADERSHIP INTERN Clinical Communication Virtual Review in [place], [place] 200 [place] [address] Pre-visit Intake 3 1:16 PM LEADERSHIP INTERN - 3 1:35 PM LEADERSHIP INTERN Hospital Encounter Department of Laboratory Medicine and Pathology, [facility] in [address] [phone] Jose A Lewis M.D. Hyperlipidemia; Atrial Fibrillation Unspecified (HCC); Atrial Fibrillation Paroxysmal (HCC); Hypertension Pulmonary (HCC) Discharge Disposition: Home or Self Care 3 1:36 PM LEADERSHIP INTERN - 3 11:59 PM LEADERSHIP INTERN Hospital Encounter Department of Cardiovascular Diseases in [place], [place] [address] [place] [phone] Ap Buckley M.D., Ph.D. Hypertension Pulmonary (HCC) Discharge Disposition: Home or Self Care 3 8:45 AM LEADERSHIP INTERN Anticoagulation Visit Department of Anticoagulation in [place], [place] [address] [place] [phone] Telly Gaines M.D. Thrombosis Deep Vein Personal History (Primary Dx); Assisted (Current) Anticoagulant Treatment; Monitoring For Therapeutic Drug Therapy; Atrial Fibrillation Paroxysmal (HCC) 3 1:15 PM LEADERSHIP INTERN Anticoagulation Visit Department of Anticoagulation in [address] [phone] Telly Gaines M.D. Atrial Fibrillation Paroxysmal (HCC); Assisted (Current) Anticoagulant Treatment; Monitoring For Therapeutic Drug Therapy; Thrombosis Deep Vein Personal History 3 10:00 AM LEADERSHIP INTERN Anticoagulation Visit Department of Anticoagulation in [place], [place] [address] [place] [phone] Telly Gaines M.D. Atrial Fibrillation Paroxysmal (HCC); Assisted (Current) Anticoagulant Treatment; Monitoring For Therapeutic Drug Therapy; Thrombosis Deep Vein Personal History 3 Clinical Communication Department of Cardiovascular Medicine in [place], [place] [address] [place] [address] Blanket Winder OperatorHi M.D. 3 9:30 AM LEADERSHIP INTERN Anticoagulation Visit Department of Anticoagulation in [place], [place] [address] [place] [address] Emilia Lincoln M.D. Thrombosis Deep Vein Personal History (Primary Dx); 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) Anticoagulant Treatment; Monitoring For Therapeutic Drug Therapy; Atrial Fibrillation Paroxysmal (HCC) 3 8:30 AM CDT Anticoagulation Visit Department of Anticoagulation in [place], [place] [address] [place] [address] Emilia Lincoln M.D. Thrombosis Deep Vein Personal History (Primary Dx); Assisted (Current) Anticoagulant Treatment; Monitoring For Therapeutic Drug Therapy; Atrial Fibrillation Paroxysmal (HCC) 3 11:15 AM CDT Anticoagulation Visit Department of Anticoagulation in [place], [place] [address] [place] [address] Telly Gaines M.D. Atrial Fibrillation Paroxysmal (HCC); Assisted (Current) Anticoagulant Treatment; Monitoring For Therapeutic Drug Therapy; Thrombosis Deep Vein Personal History 3 Orders Only Department of Anticoagulation in [place], [place] [address] [place] [address] Tori Dias, R.NHarmony Assisted (Current) Anticoagulant Treatment (Primary Dx) 3 Refill Department of Family Medicine, [facility], in [place], [place] [address] [place] [address] Jose A Lewis M.D. Med Refill 3 Clinical Communication Department of Family Medicine, [facility], in [address] [address] Emilia Lincoln M.D. 3 1:30 PM CDT - 3 11:59 PM CDT Hospital Encounter Department of Radiology in [address] [address] Emilia Lincoln M.D. Screening Mammogram Breast Cancer Discharge Disposition: Home or Self Care 3 8:45 AM CDT Anticoagulation Visit Department of Anticoagulation in [address] [address] Jose A Lewis M.D. Thrombosis Deep Vein Personal History; 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) Anticoagulant Treatment; Monitoring For Therapeutic Drug Therapy; Atrial Fibrillation Paroxysmal (HCC) 3 Clinical Communication Department of Cardiovascular Medicine in [address] [address] Ap Buckley M.D., Ph.D. Medication Problem (Dofetilide) 3 Clinical Communication Department of Family Medicine, [facility], in [address] [phone] Iza Albarran, RPreeti [facility] Follow-up (D/c 07/21/2023) 3 2:00 PM CDT Anticoagulation Visit Department of Anticoagulation in [place], [place] [address] [place] [address] Jose A Lewis M.D. Thrombosis Deep Vein Personal History (Primary Dx); 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) Anticoagulant Treatment; Monitoring For Therapeutic Drug Therapy; Atrial Fibrillation Paroxysmal (HCC) 3 9:30 AM CDT Anticoagulation Visit Department of Anticoagulation in [place], [place] [address] [place] [address] Jose A Lewis M.D. Thrombosis Deep Vein Personal History (Primary Dx); 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) Anticoagulant Treatment; Monitoring For Therapeutic Drug Therapy; Atrial Fibrillation Paroxysmal (HCC) 3 Clinical Communication Department of Anticoagulation in [place], [place] [address] [place] [phone] Christine Brandt RPreeti Anticoagulation (Post-hospital, tracker updated.) 3 2:34 PM CDT Anesthesia Event Department of Cardiovascular Disease [address] [place] [phone] Lani Huber APRN, CRNA, D.N.P. 3 6:46 AM CDT - 3 4:47 PM CDT Hospital Encounter [facility], [facility], Fourth Floor [address] [place] [phone] Ap Buckley M.D., Ph.D. Telly Sorto M.D., Ph.D. Adeel Almeida P.A.Emili. Atrial Fibrillation Paroxysmal (HCC) (Primary Dx); Assisted (Current) Anticoagulant Treatment; Thrombosis Deep Vein Acute Calf Right (HCC); Monitoring For Therapeutic Drug Therapy Discharge Disposition: Home or Self Care 3 Clinical Communication Department of Cardiovascular Medicine in [place], [place] [address] [place] [phone] Hannah Falcon APRN, C.N.P. 3 9:00 AM CDT Anticoagulation Visit Department of Anticoagulation in [place], [place] [address] [place] [phone] Jose A Lewis M.D. Thrombosis Deep Vein Personal History (Primary Dx); 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) Anticoagulant Treatment; Monitoring For Therapeutic Drug Therapy; Atrial Fibrillation Paroxysmal (HCC) 3 Refill Department of Family Medicine, [facility] in [place], [place] [address] [place] [phone] Jose A Lewis M.D. Med Refill 3 12:48 PM CDT - 3 11:59 PM CDT Hospital Encounter Department of Laboratory Medicine in [address] [phone] Ap Buckley M.D., Ph.D. Atrial Fibrillation Unspecified (HCC) Discharge Disposition: Home or Self Care 3 Clinical Communication Department of Anticoagulation in [place], [place] [address] [place] [phone] Veronica Mistry R.N. anticoagulaion procedure 3 2:45 PM CDT Anticoagulation Visit Department of Anticoagulation in [place], [place] [address] [place] [phone] Telly Gaines M.D. Atrial Fibrillation Paroxysmal (HCC); Assisted (Current) Anticoagulant Treatment; Monitoring For Therapeutic Drug Therapy; Thrombosis Deep Vein Personal History 3 [facility] [address] [place] [address] Ximena Eckert C.NHarmonyPHarmony Repeated Falls (Primary Dx) 3 Clinical Communication Department [facility] in [place], [place] [address] [place] [phone] Jose A Lewis M.D. 3 9:30 AM CDT Anticoagulation Visit Department of Anticoagulation in [place], [place] [address] [place] [phone] Jose A Lewis M.D. Thrombosis Deep Vein Personal History (Primary Dx); 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) Anticoagulant Treatment; Monitoring For Therapeutic Drug Therapy; Atrial Fibrillation Paroxysmal (HCC) 3 Clinical Communication Department of Urology in [place], [place] [address] [place] [phone] Kendal Bullock M.D. 3 [facility] [address] [place] [address] Ximena Eckert C.NHarmonyPHarmony Incontinence Urinary (Primary Dx) 3 3:30 PM CDT Anticoagulation Visit Department of Anticoagulation in [place], [place] [address] [place] [phone] Telly Gaines M.D. Atrial Fibrillation Paroxysmal (HCC); 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) Anticoagulant Treatment; Monitoring For Therapeutic Drug Therapy; Thrombosis Deep Vein Personal History 3 10:45 AM CDT Education Department of Cardiovascular Medicine in [place], [place] [address] [place] [phone] Lani Pearce R.N., CCRN 3 Clinical Communication Department of Cardiovascular Medicine in [place], [place] [address] [place] [phone] Lani Pearce R.N., CCRN 3 7:07 AM CDT - 3 11:59 PM CDT Hospital Encounter Department of Laboratory Medicine and Pathology, [facility] in [place], [place] [address] [place] [phone] Ap Buckley M.D., Ph.D. Atrial Fibrillation Unspecified (HCC) Discharge Disposition: Home or Self Care 3 9:00 AM CDT Office Visit Department of Cardiovascular Medicine in [place], [place] [address] [place] [phone] Ap uBckley M.D., Ph.D. Obstructive Sleep Apnea Adult (Primary Dx); Hypertension Essential Primary; Hypertension Pulmonary (HCC); Atrial Fibrillation Unspecified (HCC) 3 1:15 PM CDT Clinical Communication Virtual Review in [place], [place] 200 [place] [address] Pre-visit Intake 3 11:00 AM CDT Anticoagulation Visit Department of Anticoagulation in [place], [place] [address] [place] [phone] Jose A Lewis M.D. Thrombosis Deep Vein Personal History (Primary Dx); 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) Anticoagulant Treatment; Monitoring For Therapeutic Drug Therapy; Atrial Fibrillation Paroxysmal (HCC) 3 1:30 PM CDT Anticoagulation Visit Department of Anticoagulation in [place], [place] [address] [place] [phone] Telly Gaines M.D. Atrial Fibrillation Paroxysmal (HCC); 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) Anticoagulant Treatment; Monitoring For Therapeutic Drug Therapy; Thrombosis Deep Vein Personal History 3 3:00 PM CDT Anticoagulation Visit Department of Anticoagulation in [place], [place] [address] [place] [phone] Telly Gaines M.D. Atrial Fibrillation Paroxysmal (HCC); Assisted (Current) Anticoagulant Treatment; Monitoring For Therapeutic Drug Therapy; Thrombosis Deep Vein Personal History 3 Orders Only [facility] Jose A Lewis M.D. Hyperlipidemia 3 Clinical Communication Department of Anticoagulation in [place], [place] [address] [place] [phone] Jacquie Chavis R.N. Anticoagulation (Home INR test strips) 3 4:00 PM CDT Anticoagulation Visit Department of Anticoagulation in [place], [place] [address] [place] [phone] Telly Gaines M.D. Atrial Fibrillation Paroxysmal (HCC); 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) Anticoagulant Treatment; Monitoring For Therapeutic Drug Therapy; Thrombosis Deep Vein Personal History 3 3:16 PM CDT - 3 11:59 PM CDT Hospital Encounter Department of Laboratory Medicine in [address] [phone] Jose A Lewis M.D. Atrial Fibrillation Paroxysmal (HCC); Assisted (Current) Anticoagulant Treatment; Monitoring For Therapeutic Drug Therapy Discharge Disposition: Home or Self Care 3 Orders Only Department of Anticoagulation in [place], [place] [address] [place] [phone] Lani Mittal, R.NHarmony Atrial Fibrillation Paroxysmal (HCC) (Primary Dx); 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) Anticoagulant Treatment; Monitoring For Therapeutic Drug Therapy 3 11:00 AM CDT Virtual Visit Department of Cardiovascular Medicine in [place], [place] [address] [place] [phone] Ap Buckley M.D., Ph.D. Atrial Fibrillation Paroxysmal (HCC) (Primary Dx) 3 3:10 PM CDT - 3 11:59 PM CDT Hospital Encounter Department of Cardiovascular Diseases in [place], [place] [address] [place] [phone] Ap Buckley M.D., Ph.D. Atrial Fibrillation Paroxysmal (HCC) Discharge Disposition: Home or Self Care 3 2:00 PM CDT Anticoagulation Visit Department of Anticoagulation in [place], [place] [address] [place] [address] Telly Gaines M.D. Atrial Fibrillation Paroxysmal (HCC); Assisted (Current) Anticoagulant Treatment; Monitoring For Therapeutic Drug Therapy; Thrombosis Deep Vein Personal History 3 10:18 AM CDT - 3 11:59 PM CDT Hospital Encounter Department of Radiology in [address] [phone] Jose A Lewis M.D. Deficiency Estrogen Post Menopausal Discharge Disposition: Home or Self Care 3 Orders Only Department of Anticoagulation in [place], [place] [address] [place] [phone] Amy Morris R.N. Thrombosis Deep Vein Personal History (Primary Dx); Assisted (Current) Anticoagulant Treatment; Monitoring For Therapeutic Drug Therapy; Atrial Fibrillation Paroxysmal (HCC) 3 Clinical Communication Department of Anticoagulation in [place], [place] [address] [place] [address] Amy Morris R.NHarmony Anticoagulation (Referral (PCP updated)) 3 8:30 AM CDT Anticoagulation Visit Department of Anticoagulation in [place], [place] [address] [place] [phone] Jose A Lewis M.D. Thrombosis Deep Vein Personal History (Primary Dx); Assisted (Current) Anticoagulant Treatment; Monitoring For Therapeutic Drug Therapy; Atrial Fibrillation Paroxysmal (HCC) 3 9:30 AM CDT Anticoagulation Visit Department of Anticoagulation in [place], [place] [address] [place] [phone] Jose A Lewis M.D. Thrombosis Deep Vein Personal History (Primary Dx); Assisted (Current) Anticoagulant Treatment; Monitoring For Therapeutic Drug Therapy; Atrial Fibrillation Paroxysmal (HCC) 3 3:15 PM CDT Anticoagulation Visit Department of Anticoagulation in [place], [place] [address] [place] [address] Telly Gaines M.D. Atrial Fibrillation Paroxysmal (HCC); Assisted (Current) Anticoagulant Treatment; Monitoring For Therapeutic Drug Therapy; Thrombosis Deep Vein Personal History 3 Orders Only [facility] Jose A Lewis M.D. 3 10:00 AM LEADERSHIP INTERN Anticoagulation Visit Department of Anticoagulation in [place], [place] [address] [place] [address] Jose A Lewis M.D. Thrombosis Deep Vein Personal History (Primary Dx); Assisted (Current) Anticoagulant Treatment; Monitoring For Therapeutic Drug Therapy; Atrial Fibrillation Paroxysmal (HCC) 3 10:00 AM LEADERSHIP INTERN Anticoagulation Visit Department of Anticoagulation in [place], [place] [address] [place] [phone] Telly Gaines M.D. Atrial Fibrillation Paroxysmal (HCC); Assisted (Current) Anticoagulant Treatment; Monitoring For Therapeutic Drug Therapy; Thrombosis Deep Vein Personal History 3 Refill Department of Family [place], [place] [address] [place] [phone] Jose A Lewis M.D. Med Refill 3 Refill Department [place], [place] [address] [place] [phone] Raul Almendarez M.D. Med Refill 3 8:30 AM LEADERSHIP INTERN Virtual Visit Department of Cardiovascular Medicine in [place], [place] [address] [place] [phone] Ap Buckley M.D., Ph.D. Atrial Fibrillation Unspecified (Primary Dx); Atrial Fibrillation Paroxysmal (HCC) 3 8:30 AM LEADERSHIP INTERN Anticoagulation Visit Department of Anticoagulation in [place], [place] [address] [place] [phone] Telly Gaines M.D. Thrombosis Deep Vein Personal History (Primary Dx); Atrial Fibrillation Paroxysmal (HCC); Assisted (Current) Anticoagulant Treatment; Monitoring For Therapeutic Drug Therapy 3 Refill Department Family [place], [place] [address] [place] [address] Jose A Lewis M.D. Med Refill 3 Refill Department of [facility], [facility] in [place], [place] [address] [place] [address] Telly Gaines M.D. Med Refill 3 11:00 AM LEADERSHIP INTERN Virtual Visit Department of Cardiovascular Medicine in [place], [place] [address] [place] [phone] Ap Buckley M.D., Ph.D. Shortness Of Breath (Primary Dx) 3 8:15 AM LEADERSHIP INTERN Anticoagulation Visit Department of Anticoagulation in [place], [place] [address] [place] [phone] Telly Gaines M.D. Atrial Fibrillation Paroxysmal (HCC) (Primary Dx); 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) Anticoagulant Treatment; Monitoring For Therapeutic Drug Therapy; Thrombosis Deep Vein Personal History 2 10:46 AM LEADERSHIP INTERN - 2 11:59 PM LEADERSHIP INTERN Hospital Encounter Department of Cardiovascular Diseases in [place], [place] [address] [place] [phone] Ap Buckley M.D., Ph.D. Atrial Fibrillation Unspecified; Dyspnea On Exertion Discharge Disposition: Home or Self Care 2 9:00 AM LEADERSHIP INTERN - 2 9:16 AM LEADERSHIP INTERN Hospital Encounter Department of Laboratory Medicine and Pathology, [facility] in [place], [place] [address] [place] [phone] Ap Buckley M.D., Ph.D. Atrial Fibrillation Unspecified; Dyspnea On Exertion Discharge Disposition: Home or Self Care 2 9:17 AM LEADERSHIP INTERN - 2 10:45 AM LEADERSHIP INTERN Hospital Encounter Department of Radiology, [facility] in [place], [place] [address] [place] [address] Ap Buckley M.D., Ph.D. Dyspnea On Exertion Discharge Disposition: Home or Self Care 2 Refill Department of Family Medicine, [facility] in [place], [place] [address] [place] [address] Telly Gaines M.D. Med Refill 2 8:34 AM LEADERSHIP INTERN - 2 11:59 PM LEADERSHIP INTERN Hospital Encounter Department of Cardiovascular Diseases in [place], [place] [address] [place] [address] Ap Buckley M.D., Ph.D. Atrial Fibrillation Unspecified Discharge Disposition: Home or Self Care 2 Orders Only RST PCP [facility] Jose A Lewis M.D. Deficiency Estrogen Post Menopausal 2 8:15 AM LEADERSHIP INTERN Anticoagulation Visit Department of Anticoagulation in [place], [place] [address] [place] [address] Jose A Lewis M.D. Thrombosis Deep Vein Personal History (Primary Dx); Assisted (Current) Anticoagulant Treatment; Monitoring For Therapeutic Drug Therapy; Atrial Fibrillation Paroxysmal (HCC) 2 11:00 AM LEADERSHIP INTERN Virtual Visit Department of Cardiovascular Medicine in [place], [place] [address] [place] [address] Ap Buckley M.D., Ph.D. Atrial Fibrillation Unspecified (Primary Dx); Dyspnea On Exertion; Atrial Fibrillation Paroxysmal (HCC) 2 8:45 AM LEADERSHIP INTERN Anticoagulation Visit Department of Anticoagulation in [place], [place] [address] [place] [phone] Jos eA Lewis M.D. Thrombosis Deep Vein Personal History (Primary Dx); Assisted (Current) Anticoagulant Treatment; Monitoring For Therapeutic Drug Therapy; Atrial Fibrillation Paroxysmal (HCC) 2 2:00 PM CDT Anticoagulation Visit Department of Anticoagulation in [place], [place] [address] [place] [phone] Telly Gaines M.D. Atrial Fibrillation Paroxysmal (HCC); Assisted (Current) Anticoagulant Treatment; Monitoring For Therapeutic Drug Therapy; Thrombosis Deep Vein Personal History 2 8:45 AM CDT Anticoagulation Visit Department of Anticoagulation in [place], [place] [address] [place] [phone] Telly Gaines M.D. Thrombosis Deep Vein Personal History (Primary Dx); 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) Anticoagulant Treatment; Monitoring For Therapeutic Drug Therapy; Atrial Fibrillation Paroxysmal (HCC) 2 10:30 AM CDT - 2 11:59 PM CDT Hospital Encounter Department of Radiology in [address] [address] Telly Gaines M.D. Screening Mammogram Breast Cancer Discharge Disposition: Home or Self Care 2 12:48 PM CDT - 2 11:59 PM CDT Hospital Encounter Department of Laboratory Medicine and Pathology, [place], [place] [address] [place] [phone] Ap Buckley M.D., Ph.D. Atrial Fibrillation Paroxysmal (HCC) Discharge Disposition: Home or Self Care 2 10:41 AM CDT - 2 1:53 PM CDT Emergency [facility] [address] [place] [phone] Hypertension Borderline (Primary Dx); Headache New Discharge Disposition: Home or Self Care 2 Nurse Triage Department of Family [place], [facility] in [place], [place] [address] [place] [phone] Yocasta Leonardo, R.N. Hypertension 2 10:00 AM CDT Anticoagulation Visit Department of Anticoagulation in [place], [place] [address] [place] [phone] Telly Gaines M.D. Atrial Fibrillation Paroxysmal (HCC); Assisted (Current) Anticoagulant Treatment; Monitoring For Therapeutic Drug Therapy; Thrombosis Deep Vein Personal History 2 Clinical Communication Department of Anticoagulation in [place], [place] [address] [place] [phone] Agnieszka Johnson, R.NHarmony Anticoagulation (HOME INR mikel- No reported INR's. Attempt to reach) 2 Orders Only [facility] Telly Gaines M.D. Screening Mammogram Breast Cancer 2 4:00 PM CDT Anticoagulation Visit Department of Anticoagulation in [place], [place] [address] [place] [phone] Telly Gaines M.D. Atrial Fibrillation Paroxysmal (HCC); 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) Anticoagulant Treatment; Monitoring For Therapeutic Drug Therapy; Thrombosis Deep Vein Personal History 2 Refill Department of Family [place], [place] [address] [place] [phone] Telly Gaines M.D. Med Refill 2 2:00 PM CDT Anticoagulation Visit Department of Anticoagulation in [place], [place] [address] [place] [phone] Telly Gaines M.D. Atrial Fibrillation Paroxysmal (HCC); Assisted (Current) Anticoagulant Treatment; Monitoring For Therapeutic Drug Therapy; Thrombosis Deep Vein Personal History 2 Clinical Communication Department of Orthopedic Surgery in [place], [place] [address] [place] [phone] Ronaldo Moore M.D. Surgical Listing; Phone Contact 2 Clinical Communication Department of Orthopedic Surgery in [place], [place] [address] [place] [phone] Ronaldo Moore M.D. Procedure 2 10:45 AM CDT Anticoagulation Visit Department of Anticoagulation in [place], [place] [address] [place] [phone] Telly Gaines M.D. Thrombosis Deep Vein Personal History (Primary Dx); Assisted (Current) Anticoagulant Treatment; Monitoring For Therapeutic Drug Therapy; Atrial Fibrillation Paroxysmal (HCC) 2 2:00 PM CDT Office Visit Department of Family [facility], in [place], [place] [address] [place] [phone] Telly Gaines M.D. Preoperative Exam (Primary Dx); Depression Major Recurrent Full Remission (HCC); Atrial Fibrillation Paroxysmal (HCC); Asthma Mild Intermittent (HCC); History Of Falling; Primary Osteoarthritis Knee Right; Thrombosis Deep Vein Personal History; 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) Anticoagulant Treatment; Maintenance Health Adult; Hypertension Essential Primary 2 Orders Only Department of Family Medicine, [facility], in [place], [place] [address] [place] [phone] Telly Gaines M.D. Polyp Colon Adenomatous Personal History 2 10:30 AM CDT Clinical Communication Virtual Review in [place], [place] 200 [place] [address] Intake Assessment 2 Clinical Communication Department of Cardiovascular Medicine in [place], [place] [address] [place] [phone] Blanket Winder OperatorHi M.D. Triage (Hosp f/u 2 weeks) 2 Orders Only Department of Cardiovascular Medicine in [place], [place] [address] [place] [phone] Hansa Childers APRN, C.N.P. Atrial Fibrillation Paroxysmal (HCC) (Primary Dx) 2 2:00 PM CDT Anticoagulation Visit Department of Anticoagulation in [place], [place] [address] [place] [phone] Telly Gaines M.D. Atrial Fibrillation Paroxysmal (HCC); Assisted (Current) Anticoagulant Treatment; Monitoring For Therapeutic Drug Therapy; Thrombosis Deep Vein Personal History 2 Clinical Communication Department of Cardiovascular Medicine in [place], [place] [address] [place] [phone] Ap Buckley M.D., Ph.D. Atrial Fibrillation (Communication) 2 7:23 PM CDT - 2 12:37 PM CDT Emergency [facility] Emergency Department [address] [place] [phone] Jan Molina M.D. Dehydration (Primary Dx); Lightheadedness; Atrial Fibrillation (HCC) Discharge Disposition: Home or Self Care 2 11:00 AM CDT Ancillary Procedure Department of Gastroenterology 2 9:21 AM CDT - 2 7:22 PM CDT Hospital Encounter Division of Gastroenterology in [place], [place] [address] [place] [address] Telly Gaines M.D. Polyp Colon Discharge Disposition: Home or Self Care 2 8:15 AM CDT Anticoagulation Visit Department of Anticoagulation in [place], [place] [address] [place] [phone] Telly Gaines M.D. Atrial Fibrillation Paroxysmal (HCC); 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) Anticoagulant Treatment; Monitoring For Therapeutic Drug Therapy; Thrombosis Deep Vein Personal History 2 Orders Only Department of Orthopedic Surgery in [place], [place] [address] [place] [phone] Storm Iqbal P.A.-C., M.S. Primary Osteoarthritis Knee Right (Primary Dx) 2 Nurse Triage Department of [facility] in [place], [place] [address] [place] [phone] Melissa Peguero, R.N. Bleeding/Bruising 2 Clinical Communication Department of Anticoagulation in [place], [place] [address] [place] [phone] Tori Dias, R.N. 2 1:45 PM CDT Anticoagulation Visit Department of Anticoagulation in [place], [place] [address] [place] [phone] Telly Gaines M.D. Atrial Fibrillation Paroxysmal (HCC); 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) Anticoagulant Treatment; Monitoring For Therapeutic Drug Therapy; Thrombosis Deep Vein Personal History 2 1:15 PM CDT Anticoagulation Visit Department of Anticoagulation in [place], [place] [address] [place] [phone] Telly Gaines M.D. Atrial Fibrillation Paroxysmal (HCC); Assisted (Current) Anticoagulant Treatment; Monitoring For Therapeutic Drug Therapy; Thrombosis Deep Vein Personal History 2 8:30 AM CDT Comprehensive Visit Division of Gastroenterology in [place], [place] [address] [place] [phone] Telly Nguyen M.D. Gastroesophageal Reflux Disease Without Esophagitis 2 Orders Only Department of [facility], in [place], [place] [address] [place] [address] Telly Gaines M.D. 2 8:45 AM CDT Anticoagulation Visit Department of Anticoagulation in [place], [place] [address] [place] [address] Telly Gaines M.D. Atrial Fibrillation Paroxysmal (HCC); 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) Anticoagulant Treatment; Monitoring For Therapeutic Drug Therapy; Thrombosis Deep Vein Personal History 2 Clinical Communication Department of [facility] in [place], [place] [address] [place] [address] Telly Gaines M.D. Pre-op Exam 2 10:45 AM CDT Anticoagulation Visit Department of Anticoagulation in [place], [place] [address] [place] [address] Telly Gaines M.D. Atrial Fibrillation Paroxysmal (HCC); Assisted (Current) Anticoagulant Treatment; Monitoring For Therapeutic Drug Therapy; Thrombosis Deep Vein Personal History 2 Orders Only Preoperative Evaluation Center in [place], [place] [address] [place] [address] Tri Price, INKITA, C.N.P. Preanesthetic Medical Exam (Primary Dx) 2 Orders Only Department [facility] in [place], [place] [address] [place] [address] Telly Gaines M.D. Gastroesophageal Reflux Disease Without Esophagitis 2 11:05 AM CDT Ancillary Procedure Department of Gastroenterology 2 10:02 AM CDT - 2 11:59 PM CDT Hospital Encounter Division of Gastroenterology in [place], [place] [address] [place] [address] Telly Gaines M.D. Gastroesophageal Reflux Disease Without Esophagitis Discharge Disposition: Home or Self Care 2 10:03 AM CDT - 2 11:59 PM CDT Hospital Encounter Department of Laboratory Medicine, [facility], [place], [place] [address] [place] [address] Sameer Bowman D.O. Discharge Disposition: Home or Self Care 2 Orders Only RST PCP [facility] MNT Telly Gaines M.D. 2 10:20 AM CDT Admin Visit Urgent Care in [place], [place] [address] [place] [phone] 2 External Outreach Department of Family Medicine, [facility], in [place], [place] [address] [place] [phone] Sameer Bowman D.O. Contact With And (Suspected) Exposure To COVID-19 (Primary Dx) 2 10:30 AM CDT Office Visit Department of Family Medicine, [facility], in [place], [place] [address] [phone] Dora Martinez, NIKITA, C.N.P., D.N.P., M.S.N. Sore Throat (Primary Dx); Cough Unspecified Type; Conjunctivitis Acute Bilateral 2 2:00 PM CDT Virtual Visit Department of [facility], [facility] in [place], [place] [address] [place] [address] Telly Gaines M.D. Gastroesophageal Reflux Disease Without Esophagitis (Primary Dx); 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) Anticoagulant Treatment; Viral Syndrome 2 Orders Only [facility], in [place], [place] [address] [place] [address] Telly Gaines M.D. Gastroesophageal Reflux Disease Without Esophagitis 2 3:45 PM CDT Anticoagulation Visit Department of Anticoagulation [place], [place] [address] [place] [address] Telly Gaines M.D. Atrial Fibrillation Paroxysmal (HCC); Assisted (Current) Anticoagulant Treatment; Monitoring For Therapeutic Drug Therapy; Thrombosis Deep Vein Personal History 2 3:00 PM CDT Virtual Visit Department of Family Medicine, [facility], in [place], [place] [address] [place] [address] Telly Gaines M.D. Hyperlipidemia; Viral Syndrome 2 7:00 AM CDT Anticoagulation Visit Department of Anticoagulation in [place], [place] [address] [place] [phone] Telly Gaines M.D. Atrial Fibrillation Paroxysmal (HCC); Assisted (Current) Anticoagulant Treatment; Monitoring For Therapeutic Drug Therapy; Thrombosis Deep Vein Personal History 2 1:45 PM CDT Anticoagulation Visit Department of Anticoagulation in [place], [place] [address] [place] [address] Telly Gaines M.D. Atrial Fibrillation Paroxysmal (HCC); Assisted (Current) Anticoagulant Treatment; Monitoring For Therapeutic Drug Therapy; Thrombosis Deep Vein Personal History 2 11:32 AM CDT - 2 11:59 PM CDT Hospital Encounter Department of Radiology in [place], [place] [address] [place] [phone] Adarsh Ramirez M.D., M.B.A. Cough Unspecified Type Discharge Disposition: Home or Self Care 2 11:30 AM CDT Office Visit Department of Family Medicine, [facility], in [place], [place] [address] [phone] Adarsh Ramirez M.D., M.B.A. Cough Unspecified Type (Primary Dx); Bronchitis Acute 2 3:00 PM CDT Virtual Visit Department of Cardiovascular Medicine in [place], [place] [address] [place] [phone] Ap Buckley M.D., Ph.D. Atrial Fibrillation Paroxysmal (HCC) (Primary Dx) 2 Orders Only Department of Family Medicine, [facility], in [place], [place] [address] [place] [address] Telly Gaines M.D. Hyperlipidemia (Primary Dx) 2 9:33 AM CDT - 2 11:59 PM CDT Hospital Encounter Department of Laboratory Medicine in [place], [place] [address] [place] [address] Ap Buckley M.D., Ph.D. Atrial Fibrillation Paroxysmal (HCC) Discharge Disposition: Home or Self Care 2 9:32 AM CDT Hospital Encounter Department of Laboratory Medicine in [place] [place], [place] [address] [place] [address] Ap Buckley M.D., Ph.D. Atrial Fibrillation Paroxysmal (HCC); Hyperlipidemia Discharge Disposition: Home or Self Care 2 Refill Department of [facility] in [place], [place] [address] [place] [address] Telly Gaines M.D. Med Refill 2 7:30 AM CDT Ancillary Procedure Department of Orthopedic Surgery 2 Clinical Communication Department of Orthopedic Surgery in [place], [place] [address] [place] [address] Ronaldo Moore M.D. reschedule surgery 2 Orders Only Department of Orthopedic Surgery in [place], [place] [address] [place] [address] Storm Iqbal P.A.-C., M.S. Primary Osteoarthritis Knee Right (Primary Dx) 2 Clinical Communication Department of Orthopedic Surgery in [place], [place] [address] [place] [address] Ronaldo Moore M.D. schedule surgery 2 7:18 AM CDT - 2 11:59 PM CDT Hospital Encounter [place], [place] [address] [place] [address] Storm Iqbal P.A.-C., M.S. Primary Osteoarthritis Knee Right Discharge Disposition: Home or Self Care 2 8:45 AM CDT Office Visit Department of Orthopedic Surgery in [place], [place] [address] [place] [address] Ronaldo Moore M.D. Primary Osteoarthritis Knee Right (Primary Dx) 2 4:00 PM CDT Anticoagulation Visit Department of Anticoagulation in [place], [place] [address] [place] [address] Telly Gaines M.D. Atrial Fibrillation Paroxysmal (HCC); Assisted (Current) Anticoagulant Treatment; Monitoring For Therapeutic Drug Therapy; Thrombosis Deep Vein Personal History 2 Orders Only Department of [facility], [facility], in [place], [place] [address] [place] [address] Telly Gaines M.D. Polyp Colon 2 Orders Only Department of Orthopedic Surgery in [place], [place] [address] [place] [phone] Storm Iqbal P.A.-C., M.S. Primary Osteoarthritis Knee Right (Primary Dx) 2 3:30 PM CDT Anticoagulation Visit Department of Anticoagulation in [place], [place] [address] [place] [address] Telly Gaines M.D. Atrial Fibrillation Paroxysmal (HCC); Assisted (Current) Anticoagulant Treatment; Monitoring For Therapeutic Drug Therapy; Thrombosis Deep Vein Personal History 2 11:15 AM CDT Anticoagulation Visit Department of Anticoagulation in [place], [place] [address] [place] [address] Telly Gaines M.D. Atrial Fibrillation Paroxysmal (HCC); Assisted (Current) Anticoagulant Treatment; Monitoring For Therapeutic Drug Therapy; Thrombosis Deep Vein Personal History 2 4:00 PM CDT Anticoagulation Visit Department of Anticoagulation in [place], [place] [address] [place] [phone] Telly Gaines M.D. Atrial Fibrillation Paroxysmal (HCC); Assisted (Current) Anticoagulant Treatment; Monitoring For Therapeutic Drug Therapy; Thrombosis Deep Vein Personal History 2 10:15 AM CDT Anticoagulation Visit Department of Anticoagulation in [place], [place] [address] [place] [address] Telly Gaines M.D. Atrial Fibrillation Paroxysmal (HCC); Assisted (Current) Anticoagulant Treatment; Monitoring For Therapeutic Drug Therapy; Thrombosis Deep Vein Personal History 2 Orders Only RST PCP HLTH PAT Telly Gaines M.D. Hyperlipidemia 2 2:15 PM LEADERSHIP INTERN Anticoagulation Visit Department of Anticoagulation in [place], [place] [address] [place] [address] Telly Gaines M.D. Atrial Fibrillation Paroxysmal (HCC); 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) Anticoagulant Treatment; Monitoring For Therapeutic Drug Therapy; Thrombosis Deep Vein Personal History 2 7:00 AM LEADERSHIP INTERN Anticoagulation Visit Department of Anticoagulation in [place], [place] [address] [place] [address] Telly Gaines M.D. Atrial Fibrillation Paroxysmal (HCC); 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) Anticoagulant Treatment; Monitoring For Therapeutic Drug Therapy; Thrombosis Deep Vein Personal History 2 1:50 PM LEADERSHIP INTERN Anticoagulation Visit Department of Anticoagulation in [place], [place] [address] [place] [address] Telly Gaines M.D. Atrial Fibrillation Paroxysmal (HCC); Assisted (Current) Anticoagulant Treatment; Monitoring For Therapeutic Drug Therapy; Thrombosis Deep Vein Personal History 2 1:10 PM LEADERSHIP INTERN - 2 11:59 PM LEADERSHIP INTERN Hospital Encounter Department of Laboratory Medicine and Pathology, [facility], in [address] [address] Telly Gaines M.D. Atrial Fibrillation Paroxysmal (HCC); Assisted (Current) Anticoagulant Treatment; Monitoring For Therapeutic Drug Therapy; Thrombosis Deep Vein Personal History Discharge Disposition: Home or Self Care 2 Anticoagulation Visit Department of Anticoagulation in [place], [place] [address] [place] [address] Jacquie Chavis R.N. 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 Med Refill 2 Clinical Communication Department of Anticoagulation in [place], [place] [address] [place] [phone] Yun Lau Anticoagulation (Change in care) 2 2:45 PM LEADERSHIP INTERN Anticoagulation Visit Department of Family Medicine, [facility], in [place], [place] [address] [place] [address] Telly Gaines M.D. Atrial Fibrillation Paroxysmal (HCC); Assisted (Current) Anticoagulant Treatment; Monitoring For Therapeutic Drug Therapy; Thrombosis Deep Vein Personal History 2 Clinical Communication Department of Family Medicine, [facility], in [place], [place] [address] [place] [address] Lanette Zepeda RHarmonyNHarmony Anticoagulation (New Do machine today- unable to reach) 2 2:00 PM LEADERSHIP INTERN Anticoagulation Visit Department of Family Medicine, [facility], in [place], [place] [address] [place] [place] [address] Telly Gaines M.D. Atrial Fibrillation Paroxysmal (HCC); Assisted (Current) Anticoagulant Treatment; Monitoring For Therapeutic Drug Therapy; Thrombosis Deep Vein Personal History 2 Clinical Communication Department of Family Medicine, [facility], in [place], [place] [address] [place] [phone] Bridget Wallis RHarmonyN. Anticoagulation 2 Orders Only Department of Family Medicine, [facility], in [place], [place] [address] [place] [place] [phone] Emanuel Cao, R.N. Atrial Fibrillation Paroxysmal (HCC); 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) Anticoagulant Treatment; Monitoring For Therapeutic Drug Therapy; Thrombosis Deep Vein Personal History 2 Clinical Communication Department of Anticoagulation in [place], [place] [address] [place] [phone] Matilde Cooper R.N. 2 10:15 AM LEADERSHIP INTERN Anticoagulation Visit Department of Anticoagulation in [address] [address] Telly Gaines M.D. Atrial Fibrillation Paroxysmal (HCC); Assisted (Current) Anticoagulant Treatment; Monitoring For Therapeutic Drug Therapy; Thrombosis Deep Vein Acute Calf Right (HCC); Thrombosis Deep Vein Personal History 2 Clinical Communication Department of Anticoagulation in [place], [place] [address] [place] [address] Ileana Zurita R.N. Anticoagulation (Home INR Enrollment/) 2 10:15 AM LEADERSHIP INTERN Anticoagulation Visit Department of Anticoagulation in [address] [address] Telly Gaines M.D. Atrial Fibrillation Paroxysmal (HCC); Assisted (Current) Anticoagulant Treatment; Monitoring For Therapeutic Drug Therapy; Thrombosis Deep Vein Acute Calf Right (HCC); Thrombosis Deep Vein Personal History 2 2:15 PM LEADERSHIP INTERN Anticoagulation Visit Department of Anticoagulation in [place], [place] [address], [place] [address] Telly Gaines M.D. Atrial Fibrillation Paroxysmal (HCC); 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) Anticoagulant Treatment; Monitoring For Therapeutic Drug Therapy; Thrombosis Deep Vein Acute Calf Right (HCC); Thrombosis Deep Vein Personal History 2 1:45 PM LEADERSHIP INTERN Anticoagulation Visit Department of Anticoagulation in [address] [address] Telly Gaines M.D. Atrial Fibrillation Paroxysmal (HCC); Assisted (Current) Anticoagulant Treatment; Monitoring For Therapeutic Drug Therapy; Thrombosis Deep Vein Acute Calf Right (HCC); Thrombosis Deep Vein Personal History 1 8:00 AM LEADERSHIP INTERN Anticoagulation Visit Department of Anticoagulation in [address] [address] Telly Gaines M.D. Atrial Fibrillation Paroxysmal (HCC); Assisted (Current) Anticoagulant Treatment; Monitoring For Therapeutic Drug Therapy; Thrombosis Deep Vein Acute Calf Right (HCC); Thrombosis Deep Vein Personal History 1 Orders Only Department of Family [place], [place], [place] [address] [place] [address] Telly Gaines M.D. 1 4:00 PM CDT Virtual Visit Department of Cardiovascular Medicine in [place], [place] [address] [place] [address] Ap Buckley M.D., Ph.D. Atrial Fibrillation Paroxysmal (HCC) (Primary Dx) 1 2:00 PM CDT Comprehensive Visit Department [facility], [place], [place] [address] [place] [address] Telly Gaines M.D. 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 Med Refill 1 12:43 PM CDT - 1 11:59 PM CDT Hospital Encounter Department of Laboratory Medicine in [address] [phone] Ap Buckley M.D., Ph.D. Atrial Fibrillation Paroxysmal (HCC) Discharge Disposition: Home or Self Care 1 12:42 PM CDT Hospital Encounter Department of Laboratory Medicine in [address] [phone] Erinn Johnson R.N. Atrial Fibrillation Paroxysmal (HCC); Assisted (Current) Anticoagulant Treatment; Monitoring For Therapeutic Drug Therapy; Thrombosis Deep Vein Acute Calf Right (HCC) Discharge Disposition: Home or Self Care 1 2:30 PM CDT Anticoagulation Visit Department of Anticoagulation in [place], [place] [address] [place] [address] Erinn Johnson, R.N. Atrial Fibrillation Paroxysmal (HCC) (Primary Dx); Assisted (Current) Anticoagulant Treatment; Monitoring For Therapeutic Drug Therapy; Thrombosis Deep Vein Acute Calf Right (HCC) 1 10:00 AM CDT - 1 12:41 PM CDT Hospital Encounter Department of Laboratory Medicine in [address] [address] Erinn Johnson, R.N. Atrial Fibrillation Paroxysmal (HCC); Monitoring For Therapeutic Drug Therapy Discharge Disposition: Home or Self Care 1 4:15 PM CDT Anticoagulation Visit Department of Anticoagulation in [place], [place] [address] [place] [address] Erinn Johnson, R.N. Monitoring For Therapeutic Drug Therapy (Primary Dx); Atrial Fibrillation Paroxysmal (HCC); 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) Anticoagulant Treatment; Thrombosis Deep Vein Acute Calf Right (HCC) 1 10:57 AM CDT - 1 11:59 PM CDT Hospital Encounter Department of Laboratory Medicine in [address] [address] Erinn Johnson, R.N. Atrial Fibrillation Paroxysmal (HCC); 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) Anticoagulant Treatment; Monitoring For Therapeutic Drug Therapy; Thrombosis Deep Vein Acute Calf Right (HCC) Discharge Disposition: Home or Self Care 1 Orders Only RST PCP [facility] Radha De La Torre M.D. 1 10:30 AM CDT Office Visit Department of [facility], [facility], in [place], [place] [address] [place] [address] Jose A Lewis M.D. Hypertensive Heart Disease With Heart Failure (HCC) (Primary Dx) 1 Nurse Triage Department of [facility], [facility], [place], [place] [address] [place] [address] Estefanía Mejia R.N. Hypertension 1 Orders Only RST PCP [facility] MNT Telly Gaines M.D. Monitoring For Therapeutic Drug Therapy 1 2:00 PM CDT Anticoagulation Visit Department of Anticoagulation in [place], [place] [address] [place] [address] Erinn Johnson RHarmonyN. Atrial Fibrillation Paroxysmal (HCC); Assisted (Current) Anticoagulant Treatment; Monitoring For Therapeutic Drug Therapy; Thrombosis Deep Vein Acute Calf Right (HCC) 1 2:59 PM CDT - 1 11:59 PM CDT Hospital Encounter Department of Laboratory Medicine in [address] [address] Telly Gaines M.D. Atrial Fibrillation Paroxysmal (HCC) Discharge Disposition: Home or Self Care 1 Orders Only Department [facility], [place], [place] [address] [place] [address] Telly Gaines M.D. Atrial Fibrillation Paroxysmal (HCC) (Primary Dx) 1 3:30 PM CDT Anticoagulation Visit Department of Anticoagulation in [place], [place] [address] [place] [address] Erinn Johnson, R.N. Atrial Fibrillation Paroxysmal (HCC); 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) Anticoagulant Treatment; Monitoring For Therapeutic Drug Therapy; Thrombosis Deep Vein Acute Calf Right (HCC) 1 11:45 AM CDT - 1 11:59 PM CDT Hospital Encounter Department of Laboratory Medicine in [place], [place] [address] [place] [address] Erinn Johnson R.N. Atrial Fibrillation Paroxysmal (HCC); Assisted (Current) Anticoagulant Treatment; Monitoring For Therapeutic Drug Therapy; Thrombosis Deep Vein Acute Calf Right (HCC) Discharge Disposition: Home or Self Care 1 Clinical Communication Department of [facility], [facility] in [place], [place] [address] [place] [address] Telly Gaines M.D. INR phone visit 1 12:22 PM CDT - 1 11:59 PM CDT Hospital Encounter Department of Radiology in [place], [place] [address] [place] [address] Telly Gaines M.D. Density Breast Discharge Disposition: Home or Self Care 1 Orders Only Department of [facility], [place], [place] [address] [place] [address] Telly Gaines M.D. Density Breast (Primary Dx) 1 Clinical Communication Department of [facility] [place], [place], [place] [address] [place] [address] Telly Gaines M.D. 1 12:37 PM CDT - 1 11:59 PM CDT Hospital Encounter Department of Radiology in [address] [address] Telly Gaines M.D. Screening Mammogram Breast Cancer Discharge Disposition: Home or Self Care 1 Refill Department of [facility] [place], [place], [place] [address] [place] [address] Telly Gaines M.D. Med Refill 1 2:30 PM CDT - 1 11:59 PM CDT Hospital Encounter Department of Laboratory Medicine in [address] [address] Telly Gaines M.D. Atrial Fibrillation Paroxysmal (HCC); Assisted (Current) Anticoagulant Treatment; Monitoring For Therapeutic Drug Therapy; Thrombosis Deep Vein Acute Calf Right (HCC) Discharge Disposition: Home or Self Care 1 8:30 AM CDT Anticoagulation Visit Department of Anticoagulation in [place], [place] [address] [facility] [place] [address] Atrial Fibrillation Paroxysmal (HCC) (Primary Dx); Assisted (Current) Anticoagulant Treatment; Monitoring For Therapeutic Drug Therapy; Thrombosis Deep Vein Acute Calf Right (HCC) 1 Orders Only Department of [facility], [facility], in [address] [address] Karine Boyd APRN, C.N.P., D.N.P. 1 External Outreach Department of [facility], [facility], in [address] [address] Sameer Bowman D.O. Contact With And (Suspected) Exposure To COVID-19 (Primary Dx) Discharge Disposition: Home or Self Care 1 1:50 PM CDT Nurse Only Urgent Care in [address] [address] Nereida Emmanuel L.P.N. 1 1:30 PM CDT - 1 11:59 PM CDT Hospital Encounter Department of Radiology in [address] [address] Karine Boyd APRN, C.N.P., D.N.P. Cough (Concern For Covid-19) Discharge Disposition: Home or Self Care 1 11:30 AM CDT Office Visit [facility] in [address] [address] Karine Boyd APRN, C.N.P., D.N.P. Bronchitis Chronic (HCC) (Primary Dx); Hypertensive Heart Disease With Heart Failure (HCC); Atrial Fibrillation Paroxysmal (HCC); Personal History Of Infectious And Parasitic Disease (COVID-19); Cough (Concern For Covid-19) 1 4:30 PM CDT Anticoagulation Visit Department of Anticoagulation in [place], [place] [address] [place] [phone] Atrial Fibrillation Paroxysmal (HCC); Assisted Anticoagulant Treatment; Monitoring For Therapeutic Drug Therapy; Thrombosis Deep Vein Acute Calf Right (HCC) 1 10:34 AM CDT - 1 11:59 PM CDT Hospital Encounter Department of Laboratory Medicine in [place], [place] [address] [place] [address] Jeffrey Garay P.A.-C. Atrial Fibrillation Paroxysmal (HCC); 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 Anticoagulant Treatment; Monitoring For Therapeutic Drug Therapy; Thrombosis Deep Vein Acute Calf Right (HCC) Discharge Disposition: Home or Self Care 1 Refill Department of [facility], [facility] in [place], [place] [address] [place] [address] Telly Gaines M.D. Med Refill 1 Orders Only Department of Family Medicine, [facility], in [place], [place] [address] [place] [address] Erinn Johnson, R.N. Atrial Fibrillation Paroxysmal (HCC) (Primary Dx) 1 Orders Only Department of Cardiovascular Medicine in [place], [place] [address] [place] [address] Ap Buckley M.D., Ph.D. 1 Clinical Communication Department of Anticoagulation in [place], [place] [address] [place] [address] Debbi Marsh, R.N. Anticoagulation 1 4:45 PM CDT Anticoagulation Visit Department of Anticoagulation in [place], [place] [address] [place] [address] Atrial Fibrillation Paroxysmal (HCC); 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 Anticoagulant Treatment; Monitoring For Therapeutic Drug Therapy; Thrombosis Deep Vein Acute Calf Right (HCC) 1 Clinical Communication Department of Anticoagulation in [place], [place] [address] [place] [address] Jeffrey Garay P.A.-C. Anticoagulation (Yearly referral-SEMN ) 1 Orders Only Department of Orthopedic Surgery in [place], [place] [address] [place] [address] Ruba Duvall M.D. Primary Osteoarthritis Knee Right (Primary Dx) 1 Patient Self-Triage [facility] Symptom Material Preparation Worker, Provider 1 Patient Self-Triage [facility] Symptom Material Preparation Worker, Provider 1 Patient Self-Triage [facility] Symptom Material Preparation Worker, Provider 1 Orders Only Department of [facility] [place], [facility], in [place], [place] [address] [place] [address] Telly Gaines M.D. Restless Leg Syndrome (Primary Dx) 1 8:37 AM CDT - 1 11:59 PM CDT Hospital Encounter Department of Laboratory Medicine in [place], [place] [address] [place] [address] Telly Gaines M.D. Hyperlipidemia Discharge Disposition: Home or Self Care 1 9:00 AM CDT Anticoagulation Visit Department of Anticoagulation in [place], [place] [address] [place] [address] Jeffrey Garay P.A.-CHarmony Monitoring For Therapeutic Drug Therapy; Assisted Anticoagulant Treatment; Atrial Fibrillation Paroxysmal (HCC); Thrombosis Deep Vein Acute Calf Right (HCC) 1 Clinical Communication Department of [facility] [place], [facility], in [place], [place] [address] [place] [address] Telly Gaines M.D. Appointment (billy) 1 12:00 PM CDT Office Visit [facility] in [place], [place] [address] [place] [address] Storm Mcgee M.D. Sleep Apnea (Primary Dx); Inadequate Sleep Hygiene 1 10:00 AM CDT Virtual Visit Department of Cardiovascular Medicine in [place], [place] [address] [place] [address] Ap Buckley M.D., Ph.D. Atrial Fibrillation Paroxysmal (HCC) (Primary Dx) 1 9:39 AM CDT - 1 11:59 PM CDT Hospital Encounter Department of Laboratory Medicine in [address] [address] Ap Buckley M.D., Ph.D. Atrial Fibrillation Paroxysmal (HCC) Discharge Disposition: Home or Self Care 1 9:39 AM CDT - 1 11:59 PM CDT Hospital Encounter Department of Laboratory Medicine in [address] [address] Ap Buckley M.D., Ph.D. Atrial Fibrillation Paroxysmal (HCC) Discharge Disposition: Home or Self Care 1 9:15 AM CDT Anticoagulation Visit Department of Anticoagulation in [address] [address] Jeffrey Garay, P.A.-C. Monitoring For Therapeutic Drug Therapy; Assisted Anticoagulant Treatment; Atrial Fibrillation Paroxysmal (HCC); Thrombosis Deep Vein Acute Calf Right (HCC) 1 Orders Only RST PCP [facility] Delgado Billy Jr., M.D. 1 Refill Department of Family Medicine, [facility] in [place], [place] [address] [place] [address] Telly Gaines M.D. Med Refill 1 8:45 AM LEADERSHIP INTERN Anticoagulation Visit Department of Anticoagulation in [address] [address] Jeffrey Garay, P.A.-C. Monitoring For Therapeutic Drug Therapy; Assisted Anticoagulant Treatment; Atrial Fibrillation Paroxysmal (HCC); Thrombosis Deep Vein Acute Calf Right (HCC) 1 8:30 AM LEADERSHIP INTERN Office Visit Department of Orthopedic Surgery in [place], [place] [address] [place] [address] Ronaldo Moore M.D. Primary Osteoarthritis Knee Right (Primary Dx) 1 4:00 PM LEADERSHIP INTERN Telemedicine [facility] in [place], [place] [address] [place] [address] Silvino Pineda D.O., M.S. Sleep Apnea (Primary Dx); Dyspnea 1 Clinical Communication Department of Orthopedic Surgery in [place], [place] [address] [place] [address] Ronaldo Moore M.D. COVID Inquiry 1 1:10 PM LEADERSHIP INTERN Comprehensive Visit Division of Gastroenterology in [place], [place] [address] [place] [address] Eli Morin M.B., B.Ch. Evert Roberts M.D. Gastroesophageal Reflux Disease Without Esophagitis 1 9:10 AM LEADERSHIP INTERN - 1 11:59 PM LEADERSHIP INTERN Hospital Encounter Department of Laboratory Medicine and Pathology, [facility], in [place], [place] [address] [place] [address] Eli Morin M.B., B.Ch. Dyspnea Discharge Disposition: Home or Self Care 1 9:00 AM LEADERSHIP INTERN Diagnostic Division of Pulmonary Medicine in [place], [place] [address] [place] [address] Eli Morin M.B., B.Ch. Dyspnea 1 Clinical Communication Department of Family Medicine, [facility], in [place], [place] [address] [place] [phone] Jeffrey Garay P.A.-C. Anticoagulation 1 10:00 AM LEADERSHIP INTERN Anticoagulation Visit Department of Anticoagulation in [place], [place] [address] [place] [phone] Jeffrey Garay, P.A.-C. Monitoring For Therapeutic Drug Therapy; 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 Anticoagulant Treatment; Atrial Fibrillation Paroxysmal (HCC); Thrombosis Deep Vein Acute Calf Right (HCC) 1 1:00 PM LEADERSHIP INTERN Diagnostic Division of Pulmonary Medicine in [place], [place] [address] [place] [address] Eli Morin M.B., B.Ch. Cough 1 4:00 PM LEADERSHIP INTERN Office Visit Division of Pulmonary Medicine in [place], [place] [address] [place] [address] Eli Morin M.B., B.Ch. Dyspnea (Primary Dx) 1 Clinical Communication Division of Gastroenterology in [place], [place] [address] [place] [phone] Provider, Unknown 0 Clinical Communication Division of Pulmonary Medicine in [place], [place] [address] [place] [address] Eli Morin M.B., B.Ch. COVID Inquiry 0 Refill Department of Family Medicine, [facility] in [place], [place] [address] [place] [address] Telly Gaines M.D. Med Refill 0 9:45 AM LEADERSHIP INTERN Anticoagulation Visit Department of Anticoagulation in [address] [phone] Jeffrey Garay, Eduardo.A.-C. Monitoring For Therapeutic Drug Therapy; 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 Anticoagulant Treatment; Atrial Fibrillation Paroxysmal (HCC); Thrombosis Deep Vein Acute Calf Right (HCC) 0 Orders Only RST PCP [facility] MNT eTlly Gaines M.D. 0 Orders Only Department of Cardiovascular Medicine in [place], [place] [address] [place] [address] Ap Buckley M.D., Ph.D. Atrial Fibrillation Paroxysmal (HCC) (Primary Dx) 0 Orders Only Division of Pulmonary Medicine in [place], [place] [address] [place] [phone] Eli Morin M.B., B.Ch. Hernia Hiatal (Primary Dx) 0 Refill Department of Cardiovascular Medicine in [place], [place] [address] [place] [phone] Ap Buckley M.D., Ph.D. Med Refill 0 Clinical Communication Department of Cardiovascular Medicine in [place], [place] [address] [place] [phone] Ap Buckley M.D., Ph.D. Out of sotalol (Communication) 0 2:22 PM LEADERSHIP INTERN - 0 11:59 PM LEADERSHIP INTERN Hospital Encounter [place], [place] [address] [place] [phone] Eli Morin M.B., B.Ch. Gastroesophageal Reflux Disease Without Esophagitis Discharge Disposition: Home or Self Care 0 11:30 AM LEADERSHIP INTERN Anticoagulation Visit Department of Anticoagulation in [place], [place] [address] [place] [address] Jeffrey Garay, P.A.-C. Monitoring For Therapeutic Drug Therapy; 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 Anticoagulant Treatment; Atrial Fibrillation Paroxysmal (HCC); Thrombosis Deep Vein Acute Calf Right (HCC) 0 Remote Monitoring [facility] [address] [place] [address] Marlee Fowler Complex Care Coordination (September Billing) 0 Clinical Communication Division of Pulmonary Medicine in [place], [place] [address] [place] [phone] Eli Morin M.B., B.Ch. 0 11:53 AM LEADERSHIP INTERN - 0 11:59 PM LEADERSHIP INTERN Hospital Encounter Department of Radiology, [place], [place] [address] [place] [phone] Eli Morin M.B., B.Ch. Respiratory Infection Type Unknown Due To COVID-19; Cough; Other Dyspnea Discharge Disposition: Home or Self Care 0 1:30 PM LEADERSHIP INTERN Comprehensive Visit Division of Pulmonary Medicine in [place], [place] [address] [place] [phone] Eli Morin M.B., B.Ch. Gastroesophageal Reflux Disease Without Esophagitis (Primary Dx); Respiratory Infection Type Unknown Due To COVID-19; Bronchitis Chronic (HCC); Cough; Other Dyspnea 0 3:00 PM LEADERSHIP INTERN Virtual Visit Department of Cardiovascular Medicine in [place], [place] [address] [place] [address] Ap Buckley M.D., Ph.D. Atrial Fibrillation Paroxysmal (HCC) 0 1:30 PM LEADERSHIP INTERN Anticoagulation Visit Department of Anticoagulation in [place], [place] [address] [place] [address] Telly Gaines M.D. Atrial Fibrillation Paroxysmal (HCC); Assisted Anticoagulant Treatment; Monitoring For Therapeutic Drug Therapy; Thrombosis Deep Vein Acute Calf Right (HCC) 0 Remote Monitoring Remote Patient Monitoring [facility] [address] [place] [address] Nedra Boyd Complex Care Coordination (August) 0 9:15 AM LEADERSHIP INTERN Anticoagulation Visit Department of Anticoagulation in [place], [place] [address] [place] [address] Jeffrey Garay, P.A.-C. Assisted Anticoagulant Treatment (Primary Dx); Monitoring For Therapeutic Drug Therapy; Atrial Fibrillation Paroxysmal (HCC); Thrombosis Deep Vein Acute Calf Right (HCC) 0 Orders Only Department of Family Medicine, [facility], in [place], [place] [address] [place] [phone] Telly Gaines M.D. Cough (Primary Dx) 0 Patient Self-Triage [facility] Symptom Material Preparation Worker, Provider 0 Patient Self-Triage [facility] Symptom Material Preparation Worker, Provider 0 Patient Self-Triage [facility] Symptom Material Preparation Worker, Provider 0 Remote Monitoring Remote Patient Monitoring [facility] [address] [place] [address] Bridget Fairbanks, R.NHarmony COVID-19 Remote Patient Monitoring 0 Remote Monitoring Remote Patient Monitoring [facility] [address] [place] [address] Hannah Crook 0 1:45 PM LEADERSHIP INTERN Anticoagulation Visit Department of Anticoagulation in [place], [place] [address] [place] [address] Telly Gaines M.D. Atrial Fibrillation Paroxysmal (HCC); 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 Anticoagulant Treatment; Monitoring For Therapeutic Drug Therapy; Thrombosis Deep Vein Acute Calf Right (HCC) 0 Remote Monitoring Remote Patient Monitoring [facility] [address] [place] [address] Bridget Fairbanks, R.NHarmony COVID-19 Remote Patient Monitoring; Symptom Assessment 0 Remote Monitoring Remote Patient Monitoring [facility] [address] [place] [address] Aileen Hayward, R.NHarmony COVID-19 Remote Patient Monitoring; Symptom Assessment 0 2:45 PM LEADERSHIP INTERN Anticoagulation Visit Department of Anticoagulation in [place], [place] [address] [place] [address] Telly Gaines M.D. Atrial Fibrillation Paroxysmal (HCC); Assisted Anticoagulant Treatment; Monitoring For Therapeutic Drug Therapy; Thrombosis Deep Vein Acute Calf Right (HCC) 0 Remote Monitoring Remote Patient Monitoring [facility] [address] [place] [address] Marlee Fowler Complex Care Coordination (August) 0 Remote Monitoring Remote Patient Monitoring [facility] [address] [place] [address] Ese Sanchez COVID-19 Remote Patient Monitoring; Symptom Assessment 0 8:30 AM CDT Clinical Communication Department of [facility], in [place], [place] [address] [place] [phone] Telly Gaines M.D. COVID-19 Remote Patient Monitoring (Discussed progress and recent labs and INR - can call me directly over the weekend) 0 Orders Only Department of Family Medicine, [facility] in [place], [place] [address] [place] [address] Telly Gaines M.D. Assisted Anticoagulant Treatment (Primary Dx); COVID-19 Infection 0 Remote Monitoring Remote Patient Monitoring [facility] [address] [place] [address] Lani Glasgow RHarmonyNHarmony COVID-19 Remote Patient Monitoring; Symptom Assessment 0 1:00 PM CDT Anticoagulation Visit Department of Anticoagulation in [place], [place] [address] [place] [address] Telly Gaines M.D. Atrial Fibrillation Paroxysmal (HCC); 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 Anticoagulant Treatment; Monitoring For Therapeutic Drug Therapy; Thrombosis Deep Vein Acute Calf Right (HCC) 0 11:40 AM CDT - 0 11:59 PM CDT Hospital Encounter Department of Laboratory Medicine in [address] [address] Telly Gaines M.D. Atrial Fibrillation Paroxysmal (HCC); 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 Anticoagulant Treatment; Monitoring For Therapeutic Drug Therapy; Thrombosis Deep Vein Acute Calf Right (HCC); Viral Syndrome; Anemia; Pneumonia Due To COVID-19 Discharge Disposition: Home or Self Care 0 4:15 PM CDT Anticoagulation Visit Department of Anticoagulation in [place], [place] [address] [place] [address] Atrial Fibrillation Paroxysmal (HCC); Assisted Anticoagulant Treatment; Monitoring For Therapeutic Drug Therapy; Thrombosis Deep Vein Acute Calf Right (HCC) 0 Remote Monitoring Remote Patient Monitoring [facility] [address] [place] [address] Alivia Garcia, R.NHarmony COVID-19 Remote Patient Monitoring; Follow-up 0 3:00 PM CDT Virtual Visit Department of Family Medicine, [facility], in [place], [place] [address] [place] [address] Telly Gaines M.D. Viral Syndrome (Primary Dx); Anemia; Pneumonia Due To COVID-19 0 Remote Monitoring Remote Patient Monitoring [facility] [address] [place] [address] Ese Juarez, RMorgan. COVID-19 Remote Patient Monitoring; Symptom Assessment 0 Refill Department of Family Medicine, [facility], in [place], [place] [address] [place] [phone] Telly Gaines M.D. Med Refill 0 Remote Monitoring Remote Patient Monitoring [facility] [address] [place] [address] Ese Sanchez 0 Clinical Communication RST [facility] [address] [place] [phone] Kanchan Varela P.A.-C., M.S. Post Hospital Follow-up 0 11:15 AM CDT Internal E-Consult Division of General Internal Medicine in [place], [place] [address] [place] [phone] Kanchan Varela P.A.-C., M.S. Sarah Woods M.D. COVID-19 Infection 0 Orders Only Department of Anticoagulation in [place], [place] [address] [place] [address] Lanette Baird Thrombosis Deep Vein Acute Calf Right (HCC) (Primary Dx); Atrial Fibrillation Paroxysmal (HCC); Monitoring For Therapeutic Drug Therapy; 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 Anticoagulant Treatment 0 Clinical Communication RST [facility] [address] [place] [phone] Kanchan Varela P.A.MahinC., M.S. Pre-visit Testing Orders 0 Clinical Communication RST [facility] [address] [place] [phone] Kanchan Varela P.A.-C., M.S. Post Hospital Follow-up 0 12:18 AM CDT - 0 2:23 PM CDT Emergency [facility], [facility], [facility], Sixth Floor [address] [place] [phone] Yuniel Garner M.D., Ph.D. Matthew Yip M.D. Ronaldo Curry M.D., M.S. COVID-19 Infection (Primary Dx); Pneumonia Due To COVID-19; Dehydration; Assisted Anticoagulant Treatment; Atrial Fibrillation Paroxysmal (HCC); Depression Major Recurrent (HCC); Thrombosis Deep Vein Acute Calf Right (HCC); Monitoring For Therapeutic Drug Therapy Discharge Disposition: Home or Self Care 0 Intake [facility] 0 Remote Monitoring Remote Patient Monitoring [facility] [address] [place] [address] Elenita Borrero, R.N. COVID-19 Remote Patient Monitoring 0 Remote Monitoring Remote Patient Monitoring [facility] [address] [place] [address] Collette Eldridge, R.N. COVID-19 Remote Patient Monitoring; Symptom Assessment 0 Remote Monitoring Remote Patient Monitoring [facility] [address] [place] [address] Arely Bryant, R.N. COVID-19 Remote Patient Monitoring; Symptom Assessment 0 Remote Monitoring Remote Patient Monitoring [facility] [address] [place] [address] Yocasta Contreras, R.N. COVID-19 Remote Patient Monitoring; Follow-up 0 Documentation Remote Patient Monitoring [facility] [address] [place] [address] Nedra Ford 0 Remote Monitoring Remote Patient Monitoring [facility] [address] [place] [address] Rayne Mederos, R.N. COVID-19 Remote Patient Monitoring; Vital Sign Readings 0 Remote Monitoring Remote Patient Monitoring [facility] [address] [place] [address] Justina Dominguez, R.N. COVID-19 Remote Patient Monitoring; Symptom Assessment 0 Remote Monitoring Remote Patient Monitoring [facility] [address] [place] [address] Raquel Fairbanks, R.N. COVID-19 Remote Patient Monitoring; Symptom Assessment 0 Remote Monitoring Remote Patient Monitoring [facility] [address] [place] [address] Rosenda David R.N., NICK COVID-19 Remote Patient Monitoring; Symptom Assessment 0 Remote Monitoring Remote Patient Monitoring [facility] [address] [place] [address] Nicole Zepeda RMorgan. COVID-19 Remote Patient Monitoring; Intake Assessment 0 Remote Monitoring Remote Patient Monitoring [facility] [address] [place] [address] Radha Nascimento COVID-19 Remote Patient Monitoring; Welcome Call; Patient Education (COVID Complex Care packet, Welcome letter and Service Terms agreement mailed ) 0 Remote Monitoring Remote Patient Monitoring [facility] [address] [place] [address] Radha Nascimento COVID-19 Remote Patient Monitoring; Welcome Call 0 Episode Changes Remote Patient Monitoring [facility] [address] [place] [address] Ruth Cristina, RHDS 0 Remote Monitoring Remote Patient Monitoring [facility] [address] [place] [address] Radha Newton R.N. COVID-19 Remote Patient Monitoring 0 Virtual Visit Division of General Internal Medicine in [place], [place] [address] [place] [address] César Paris M.B., Ch.B. COVID-19 Infection (Primary Dx) 0 Clinical Communication Department of Anticoagulation in [place], [place] [address] [place] [address] Telly Gaines M.D. Anticoagulation (INR recheck) 0 Clinical Communication [facility] [place] [place] [address] [place] [address] Lani Maldonado R.N. COVID Nurse Line 0 Clinical Communication [facility] [place], [place] [address] [place] [address] Hannah Cota R.N. COVID Nurse Line 0 Clinical Communication Division of Community Internal [facility], [facility] in [place], [place] [address] [place] [address] Zeinab Grossman R.N. COVID Nurse Line 0 9:42 AM CDT - 0 1:09 PM CDT Emergency [facility] Emergency Department [address] [place] [address] Ap Laws M.D. Cough (Primary Dx); Hoarseness Discharge Disposition: Home or Self Care 0 1:30 PM CDT Telemedicine Department of Family Medicine, [facility], in [place], [place] [address] [place] [address] Adan Keenan M.D. Cough (Primary Dx) 0 9:00 AM CDT Anticoagulation Visit Department of Anticoagulation in [place], [place] [address] [place] [address] Jeffrey Garay, Eduardo.A.-C. Monitoring For Therapeutic Drug Therapy (Primary Dx); Thrombosis Deep Vein Acute Calf Right (HCC); 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 Anticoagulant Treatment; Atrial Fibrillation Paroxysmal (HCC) 0 2:15 PM CDT Anticoagulation Visit Department of Anticoagulation in [place], [place] [address] [address] Jeffrey Garay, P.A.-C. Thrombosis Deep Vein Acute Calf Right (HCC); Monitoring For Therapeutic Drug Therapy; Assisted Anticoagulant Treatment; Atrial Fibrillation Paroxysmal (HCC) 0 1:00 PM CDT Office Visit Urgent Care in [place], [place] [address] [address] Mason Mari P.A.-C., P.A. Cough 0 External Outreach Department of Internal Medicine in [place], [place] [address] [place] [phone] Sameer Bowman D.O. Infection Upper Respiratory (Primary Dx) Discharge Disposition: Home or Self Care 0 Orders Only Urgent Care in [place], [place] [address] [place] [address] Mason Mari P.A.-C., P.A. Cough (Primary Dx) 0 2:45 PM CDT Anticoagulation Visit Department of Anticoagulation in [address] [address] Jeffrey Garay P.A.-CHarmony Thrombosis Deep Vein Acute Calf Right (HCC); Monitoring For Therapeutic Drug Therapy; 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 Anticoagulant Treatment; Atrial Fibrillation Paroxysmal (HCC) 0 9:45 AM CDT Anticoagulation Visit Department of Anticoagulation in [address] [address] Jeffrey Garay P.AHarmony-CHarmony Thrombosis Deep Vein Acute Calf Right (HCC); Monitoring For Therapeutic Drug Therapy; Assisted Anticoagulant Treatment; Atrial Fibrillation Paroxysmal (HCC) 0 8:45 AM CDT Comprehensive Visit Division of Community Internal Medicine, [facility], [place], [place] [address] [place] [address] Telly Gaines M.D. Grace, Lindsey M, NIKITA, C.N.P., M.S.N. Lesion Vulva (Primary Dx); Vaginitis 0 Refill Department of Family Medicine, [facility], [place], [place] [address] [place] [address] Telly Gaines M.D. Med Refill 0 1:15 PM CDT Anticoagulation Visit Department of Anticoagulation in [address] [address] Jeffrey Garay P.AHarmony-CHarmony Thrombosis Deep Vein Acute Calf Right (HCC); Monitoring For Therapeutic Drug Therapy; 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 Anticoagulant Treatment; Atrial Fibrillation Paroxysmal (HCC) 0 9:45 AM CDT Anticoagulation Visit Department of Anticoagulation in [place], [place] [address] [place] [address] Jeffrey Garay P.A.-C. Thrombosis Deep Vein Acute Calf Right (HCC); Monitoring For Therapeutic Drug Therapy; Assisted Anticoagulant Treatment; Atrial Fibrillation Paroxysmal (HCC) 0 Clinical Communication Department of Cardiovascular Medicine in [place], [place] [address] [place] [address] Ap Buckley M.D., Ph.D. COVID Nurse Line 0 2:47 PM CDT - 0 3:19 PM CDT Hospital Encounter Department of Laboratory Medicine and Pathology, [place], [place] [address] [place] [address] Telly Gaines M.D. Screening Cancer Colon Discharge Disposition: Home or Self Care 0 3:20 PM CDT - 0 11:59 PM CDT Hospital Encounter Department of Radiology in [place], [place] [address] [place] [address] Telly Gaines M.D. Screening Mammogram Breast Cancer Discharge Disposition: Home or Self Care 0 Orders Only Department of Family [place], [place] [address] [place] [address] Telly Gaines M.D. Screening Cancer Colon (Primary Dx) 0 9:15 AM CDT Anticoagulation Visit Department of Anticoagulation in [place], [place] [address] [place] [address] Jeffrey Garay P.AHarmony-C. Thrombosis Deep Vein Acute Calf Right (HCC); Monitoring For Therapeutic Drug Therapy; Assisted Anticoagulant Treatment; Atrial Fibrillation Paroxysmal (HCC) 0 Refill Department of Family [place], [place] [address] [place] [address] Telly Gaines M.D. Med Refill 0 Orders Only RST [facility]CP [facility] Telly Gaines M.D. Screening Mammogram Breast Cancer 0 9:15 AM CDT Anticoagulation Visit Department of Anticoagulation in [address] [address] Jeffrey Garay P.A.-C. Thrombosis Deep Vein Acute Calf Right (HCC); Monitoring For Therapeutic Drug Therapy; Assisted Anticoagulant Treatment; Atrial Fibrillation Paroxysmal (HCC) 0 Orders Only Department of Cardiovascular Medicine in [address] [address] Ap Buckley M.D., Ph.D. Atrial Fibrillation (HCC) (Primary Dx) 0 Documentation Department of Cardiovascular Medicine in [address] [address] Ap Buckley M.D., Ph.D. 0 10:20 AM CDT - 0 11:59 PM CDT Hospital Encounter Department of Laboratory Medicine in [address] [address] Ap Buckley M.D., Ph.D. Atrial Fibrillation (HCC) Discharge Disposition: Home or Self Care 0 10:10 AM CDT - 0 10:19 AM CDT Hospital Encounter Department of Laboratory Medicine in [address] [address] Ap Buckley M.D., Ph.D. Atrial Fibrillation (HCC) Discharge Disposition: Home or Self Care 0 Orders Only Department of Cardiovascular Medicine in [address] [address] Ap Buckley M.D., Ph.D. Atrial Fibrillation (HCC) (Primary Dx) 0 Refill [facility], Fourth Floor [address] [place] [phone] Ap Buckley M.D., Ph.D. Med Refill 0 Refill Department of [facility], [facility], in [place], [place] [address] [place] [address] Telly Gaines M.D. Med Refill 0 2:45 PM CDT Anticoagulation Visit Department of Anticoagulation in [place], [place] [address] [place] [address] Jeffrey Garay P.A.-C. Atrial Fibrillation Paroxysmal (HCC); 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 Anticoagulant Treatment; Monitoring For Therapeutic Drug Therapy; Thrombosis Deep Vein Acute Calf Right (HCC) 0 Clinical Communication Department of Anticoagulation in [place], [place] [address] [place] [phone] Matilde Cooper R.N. Anticoagulation 0 9:30 AM LEADERSHIP INTERN Anticoagulation Visit Department of Anticoagulation in [address] [address] Jeffrey Garay P.A.-C. Thrombosis Deep Vein Acute Calf Right (HCC); Monitoring For Therapeutic Drug Therapy; Assisted Anticoagulant Treatment; Atrial Fibrillation Paroxysmal (HCC) 0 9:00 AM LEADERSHIP INTERN Anticoagulation Visit Department of Anticoagulation in [address] [address] Jeffrey Garay, P.A.-C. Thrombosis Deep Vein Acute Calf Right (HCC); Monitoring For Therapeutic Drug Therapy; Assisted Anticoagulant Treatment; Atrial Fibrillation Paroxysmal (HCC) 0 10:15 AM LEADERSHIP INTERN Anticoagulation Visit Department of Anticoagulation in [address] [address] Jeffrey Garay P.A.-C. Thrombosis Deep Vein Acute Calf Right (HCC); Monitoring For Therapeutic Drug Therapy; 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 Anticoagulant Treatment; Atrial Fibrillation Paroxysmal (HCC) 0 10:30 AM LEADERSHIP INTERN Anticoagulation Visit Department of Anticoagulation in [address] [address] Jeffrey Garay P.A.-C. Thrombosis Deep Vein Acute Calf Right (HCC); Monitoring For Therapeutic Drug Therapy; Assisted Anticoagulant Treatment; Fibrillation Atrial Paroxysmal (HCC) 0 11:00 AM LEADERSHIP INTERN Office Visit Department of Family Medicine in [address] [address] Jeffrey Garay P.A.-C. Dysuria (Primary Dx); Urgency Urinary; Neuropathy 9 Refill Department of Anticoagulation in [place], [place] [address] [address] Telly Gaines M.D. Med Refill 9 Refill Department of Anticoagulation in [address] [address] Telly Gaines M.D. Med Refill 9 1:00 PM LEADERSHIP INTERN Anticoagulation Visit Department of Anticoagulation in [address] [address] Jeffrey Garay P.A.-CHarmony Thrombosis Deep Vein Acute Calf Right (HCC); Monitoring For Therapeutic Drug Therapy; Assisted Anticoagulant Treatment; Fibrillation Atrial Paroxysmal (HCC) 9 Refill Department of Anticoagulation in [address] [address] Jeffrey Garay P.A.-C. Med Refill 9 Refill [facility], Fourth Floor [address] [place] [phone] Ap Buckley M.D., Ph.D. Med Refill 9 Orders Only Department of Cardiovascular Medicine in [place], [place] [address] [place] [phone] Ap Buckley M.D., Ph.D. 9 Refill [facility], Fourth Floor [address] [place] [address] Ap Buckley M.D., Ph.D. Med Refill 9 9:30 AM LEADERSHIP INTERN Anticoagulation Visit Department of Anticoagulation in [address] [address] Jeffrey Garay P.A.-C. Thrombosis Deep Vein Acute Calf Right (HCC); Monitoring For Therapeutic Drug Therapy; 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 Anticoagulant Treatment; Fibrillation Atrial Paroxysmal (HCC) 9 Refill Department Family [place], [place] [address] [place] [phone] Telly Gaines M.D. Med Refill 9 Orders Only Department of Anticoagulation in [place], [place] [address] [place] [phone] Matilde Cooper R.N. Fibrillation Atrial Paroxysmal (HCC) (Primary Dx); Thrombosis Deep Vein Acute Calf Right (HCC); 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 Anticoagulant Treatment; Monitoring For Therapeutic Drug Therapy 9 9:30 AM CDT Anticoagulation Visit Department of Anticoagulation in [address] [address] Telly Gaines M.D. Thrombosis Deep Vein Acute Calf Right (HCC); Monitoring For Therapeutic Drug Therapy; 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 Anticoagulant Treatment 9 Refill Department [place], [place] [address] [place] [phone] Telly Gaines M.D. Med Refill 9 10:00 AM CDT Anticoagulation Visit Department of Anticoagulation in [address] [address] Telly Gaines M.D. Thrombosis Deep Vein Acute Calf Right (HCC); Monitoring For Therapeutic Drug Therapy; 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 Anticoagulant Treatment 9 1:15 PM CDT Office Visit Department of Orthopedic Surgery in [place], [place] [address] [place] [phone] Ronaldo Moore M.D. Primary Osteoarthritis Knee Right 9 10:42 AM CDT - 9 11:59 PM CDT Hospital Encounter Department of Laboratory Medicine and Pathology, [facility] in [place], [place] [address] [place] [address] Storm Iqbal P.A.-C., M.S. Fibrillation Atrial Paroxysmal (HCC); Primary Osteoarthritis Knee Right; Hyperlipidemia Discharge Disposition: Home or Self Care 9 12:00 PM CDT Education Department of Orthopedic Surgery in [place], [place] [address] [place] [address] Storm Iqbal P.A.-C., M.S. Primary Osteoarthritis Knee Right 9 Clinical Communication Department of [facility] in [address] [address] Maci Velasco Pharm.D., R.Ph., [facility] 9 9:10 AM CDT - 9 9:19 AM CDT Hospital Encounter Department of Laboratory Medicine and Pathology, [place], [place] [address] [place] [address] Storm Iqbal P.A.-C., M.S. Primary Osteoarthritis Knee Right Discharge Disposition: Home or Self Care 9 9:20 AM CDT - 9 11:59 PM CDT Hospital Encounter Department of Laboratory Medicine and Pathology, [place], [place] [address] [place] [address] Storm Iqbal P.A.-C., M.S. Primary Osteoarthritis Knee Right Discharge Disposition: Home or Self Care 9 8:30 AM CDT Office Visit Department of Family Medicine, [place], [place] [address] [place] [address] Telly Gaines M.D. Viral Syndrome (Primary Dx); Thrombosis Deep Vein Acute Calf Right (HCC); Sleep Apnea; Primary Osteoarthritis Knee Right; Metabolizer CY Poor; Metabolizer CYP2D6 Rapid; Maintenance Health Adult; Assisted Anticoagulant Treatment; Hypertensive Heart Disease With Heart Failure (HCC); Hyperlipidemia; Depression Major Recurrent (HCC) 9 Clinical Communication Department of Orthopedic Surgery in [place], [place] [address] [place] [address] Ronnie Chi R.N. dismissal planning 9 10:00 AM CDT Anticoagulation Visit Department of Anticoagulation in [address] [address] Telly Gaines M.D. Thrombosis Deep Vein Acute Calf Right (HCC); Monitoring For Therapeutic Drug Therapy; 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 Anticoagulant Treatment 9 Documentation Department of Cardiovascular Medicine in [place], [place] [address] [place] [address] Ap Buckley M.D., Ph.D. 9 Orders Only Department of Cardiovascular Medicine in [place], [place] [address] [place] [address] Ap Buckley M.D., Ph.D. 9 Clinical Communication Department of Family Medicine, [facility], in [place], [place] [address] [place] [address] Telly Gaines M.D. Appointment (Billy order) 9 9:30 AM CDT Anticoagulation Visit Department of Anticoagulation in [address] [address] Jeffrey Garay P.A.-C. Fibrillation Atrial (HCC); Monitoring For Therapeutic Drug Therapy; Assisted Anticoagulant Treatment; Anticoagulant Therapy; Thrombosis Deep Vein Acute Calf Right (HCC) 9 10:38 AM CDT - 9 11:59 PM CDT Hospital Encounter Department of Radiology in [place], [place] [address] [place] [phone] Oxana Boone APRN, C.N.P., M.S. Pain Breast Discharge Disposition: Home or Self Care 9 9:35 AM CDT - 9 10:37 AM CDT Hospital Encounter Department of Radiology in [place], [place] [address] [place] [address] Oxana Boone APRN, C.NJake., M.S. Pain Breast Discharge Disposition: Home or Self Care 9 1:30 PM CDT Office Visit Department [place], [place] [address] [place] [phone] Oxana Boone APRN, Mari.N.P., M.S. Pain Breast (Primary Dx); Sleep Apnea 9 Nurse Triage Department [place], [place] [address] [place] [address] Charisma Romero M.S.N., R.N. 9 Orders Only RST PCP HLTH MNT Telly Gaines M.D. Hyperlipidemia 9 9:15 AM CDT Anticoagulation Visit Department of Anticoagulation in [address] [address] Telly Gaines M.D. Thrombosis Deep Vein Acute Calf Right (HCC); Monitoring For Therapeutic Drug Therapy; 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 Anticoagulant Treatment 9 Clinical Communication Department of [facility] in [place], [place] [address] [place] [phone] Telly Gaines M.D. Appointment (billy) 9 9:00 AM CDT Anticoagulation Visit Department of Anticoagulation in [address] [address] Jeffrey Garay P.A.-C. Fibrillation Atrial (HCC); Monitoring For Therapeutic Drug Therapy; 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 Anticoagulant Treatment; Anticoagulant Therapy; Thrombosis Deep Vein Acute Calf Right (HCC) 9 Orders Only Department of Orthopedic Surgery in [place], [place] [address] [place] [address] Storm Iqbal P.A.-C., M.S. Primary Osteoarthritis Knee Right (Primary Dx) 9 Clinical Communication Department of Orthopedic Surgery in [place], [place] [address] [place] [address] Ronaldo Moore M.D. schedule surgery (right total knee arthroplasty ); Communication 9 Refill Department of Family Medicine, [facility] in [place], [place] [address] [place] [address] Telly Gaines M.D. Med Refill 9 10:55 AM CDT - 9 11:13 AM CDT [facility] [place], [place] [address] [place] [phone] Ap Buckley M.D., Ph.D. Pain Chest Discharge Disposition: Home or Self Care 9 4:00 PM CDT Office Visit Department of Cardiovascular Medicine in [place], [place] [address] [place] [address] Ap Buckley M.D., Ph.D. Fibrillation Atrial Paroxysmal (HCC) (Primary Dx) 9 12:28 PM CDT - 9 1:49 PM CDT [facility] [place], [place] [address] [place] [address] Ap Buckley M.D., Ph.D. Discharge Disposition: Home or Self Care 9 12:20 PM CDT - 9 12:27 PM CDT Hospital Encounter Department of Cardiovascular Diseases in [place], [place] [address] [place] [phone] Ap Buckley M.D., Ph.D. Discharge Disposition: Home or Self Care 9 11:14 AM CDT - 9 12:19 PM CDT Hospital Encounter Department of Radiology, [facility] in [place], [place] [address] [place] [address] Ap Buckley M.D., Ph.D. Other Heart Disorders In Diseases Classified Elsewhere Discharge Disposition: Home or Self Care 9 1:50 PM CDT - 9 11:59 PM CDT Hospital Encounter Department of Cardiovascular Diseases in [place], [place] [address] [place] [address] Ap Buckley M.D., Ph.D. Pain Chest Discharge Disposition: Home or Self Care 9 11:40 AM CDT - 9 11:59 PM CDT Hospital Encounter Department of Laboratory Medicine and Pathology, [facility] in [place], [place] [address] [place] [address] Ap Buckley M.D., Ph.D. Fibrillation Atrial (HCC) Discharge Disposition: Home or Self Care 9 11:00 AM CDT - 9 11:39 AM CDT Hospital Encounter Department of Cardiovascular Diseases in [place], [place] [address] [place] [address] Ap Buckley M.D., Ph.D. Pain Chest Discharge Disposition: Home or Self Care 9 9:30 AM CDT Anticoagulation Visit Department of Anticoagulation in [address] [address] Telly Gaines M.D. Thrombosis Deep Vein Acute Calf Right (HCC); Monitoring For Therapeutic Drug Therapy; 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 Anticoagulant Treatment 9 3:45 PM CDT Anticoagulation Visit Department of Anticoagulation in [address] [address] Telly Gaines M.D. Thrombosis Deep Vein Acute Calf Right (HCC); Monitoring For Therapeutic Drug Therapy; 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 Anticoagulant Treatment 9 Orders Only Department of Cardiovascular Medicine in [place], [place] [address] [place] [address] Ap Buckley M.D., Ph.D. Fibrillation Atrial (HCC) (Primary Dx); Other Heart Disorders In Diseases Classified Elsewhere; Pain Chest 9 3:00 PM CDT Office Visit Department of Cardiovascular Medicine in [address] [address] Ap Buckley M.D., Ph.D. Fibrillation Atrial Paroxysmal (HCC) (Primary Dx) 9 10:30 AM CDT Comprehensive Visit Department of Orthopedic Surgery in [place], [place] [address] [place] [address] Ronaldo Moore M.D. Primary Osteoarthritis Knee Right 9 Clinical Communication Department of [place], [place] [address] [place] [address] Telly Gaines M.D. Med Question (billy/pharamcy call) 9 Clinical Communication Department of Cardiovascular Medicine in [address] [address] Ap Buckley M.D., Ph.D. 9 2:00 PM CDT Anticoagulation Visit Department of Anticoagulation [address] [address] Jeffrey Garay, PHarmonyADerek. Fibrillation Atrial (HCC); Monitoring For Therapeutic Drug Therapy; Assisted Anticoagulant Treatment; Anticoagulant Therapy; Thrombosis Deep Vein Acute Calf Right (HCC) 9 Orders Only [facility] [address], [facility] [address] [place] [address] Winifred Moran 9 1:00 PM LEADERSHIP INTERN Anticoagulation Visit Department of Anticoagulation in [address] [address] Telly Gaines M.D. Thrombosis Deep Vein Acute Calf Right (HCC); Monitoring For Therapeutic Drug Therapy; Assisted Anticoagulant Treatment 9 Orders Only Department of Cardiovascular Medicine in [address] [address] Ap Buckley M.D., Ph.D. 9 Orders Only Department of Cardiovascular Medicine in [place], [place] [address] [place] [address] Ap Buckley M.D., Ph.D. 9 11:10 AM LEADERSHIP INTERN Ancillary Procedure Department of Internal Medicine 9 Anticoagulation Visit Department of Anticoagulation in [address] [address] Tamela Barrett Pharm.D., R.Ph. 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 Anticoagulant Treatment; Monitoring For Therapeutic Drug Therapy; Thrombosis Deep Vein Acute Calf Right (HCC) 9 11:30 AM LEADERSHIP INTERN Procedure visit Division of Community Internal Medicine, [facility] in [place], [place] [address] [place] [phone] Ian Bocanegra M.D. Rotator Cuff Disorder Right 9 10:15 AM LEADERSHIP INTERN Comprehensive Visit Department of Orthopedic Surgery in [place], [place] [address] [place] [phone] Yocasta Contreras P.A.-C. Primary Osteoarthritis Shoulder Right (Primary Dx); Pain Shoulder Right; Tear Rotator Cuff Initial Right 9 Clinical Communication Department of Cardiovascular Medicine in [place], [place] [address] [place] [phone] Raquel Price M.S.N., R.N. Pharmacy Safety Letter 9 11:23 AM LEADERSHIP INTERN - 9 11:59 PM LEADERSHIP INTERN Hospital Encounter Department of Radiology, [facility] in [place], [place] [address] [place] [address] Telly Gaines M.D. Primary Osteoarthritis Knee Right; Rotator Cuff Disorder Right Discharge Disposition: Home or Self Care 9 10:30 AM LEADERSHIP INTERN Office Visit Department of Family Medicine, [facility], in [place], [place] [address] [place] [address] Telly Gaines M.D. Primary Osteoarthritis Knee Right (Primary Dx); Rotator Cuff Disorder Right; Preoperative Exam; Sleep Apnea; Maintenance Health Adult; Hypertensive Heart Disease With Heart Failure (HCC); Hyperlipidemia; Assisted Anticoagulant Treatment 9 9:15 AM LEADERSHIP INTERN Anticoagulation Visit Department of Anticoagulation in [address] [address] Telly Gaines M.D. Thrombosis Deep Vein Acute Calf Right (HCC); Monitoring For Therapeutic Drug Therapy; 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 Anticoagulant Treatment 9 11:00 AM LEADERSHIP INTERN Anticoagulation Visit Department of Anticoagulation in [address] [address] Telly Gaines M.D. Thrombosis Deep Vein Acute Calf Right (HCC); Monitoring For Therapeutic Drug Therapy; Assisted Anticoagulant Treatment 9 Refill Department of [place], [place] [address] [place] [address] Telly Gaines M.D. Med Refill 8 Refill [facility], Fourth Floor [address] [place] [address] Katty Jain P.A.-C., M.S. Med Refill 8 2:15 PM LEADERSHIP INTERN Anticoagulation Visit Department of Anticoagulation in [address] [address] Jeffrey Garay, P.A.-CHarmony Fibrillation Atrial (HCC); Monitoring For Therapeutic Drug Therapy; 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 Anticoagulant Treatment; Anticoagulant Therapy; Thrombosis Deep Vein Acute Calf Right (HCC) 8 Anticoagulation Visit Department of Anticoagulation in [place], [place] [address], [place] [address] Matilde Cooper, R.N. 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 Anticoagulant Treatment; Monitoring For Therapeutic Drug Therapy; Thrombosis Deep Vein Acute Calf Right (HCC) 8 Clinical Communication Department of Family [place], [place], [place] [address] [place] [address] Telly Gaines M.D. 8 9:47 AM LEADERSHIP INTERN - 8 11:59 PM LEADERSHIP INTERN Hospital Encounter Department of Laboratory Medicine and Pathology, [facility], in [place], [place] [address] [place] [address] Ap Buckley M.D., Ph.D. Fibrillation Atrial (HCC) Discharge Disposition: Home or Self Care 8 3:00 PM LEADERSHIP INTERN Office Visit Department of Cardiovascular Medicine in [place], [place] [address] [place] [address] Ap Buckley M.D., Ph.D. Fibrillation Atrial (HCC) (Primary Dx) 8 9:30 AM LEADERSHIP INTERN Anticoagulation Visit Department of Anticoagulation in [address] [address] Telly Gaines M.D. Thrombosis Deep Vein Acute Calf Right (HCC); Monitoring For Therapeutic Drug Therapy; Assisted Anticoagulant Treatment 8 11:00 AM LEADERSHIP INTERN Anticoagulation Visit Department of Anticoagulation in [place], [place] [address] [place] [address] Jeffrey Garay, P.A.-CHarmony Fibrillation Atrial (HCC); Monitoring For Therapeutic Drug Therapy; 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 Anticoagulant Treatment; Anticoagulant Therapy; Thrombosis Deep Vein Acute Calf Right (HCC) 8 1:15 PM LEADERSHIP INTERN Anticoagulation Visit Department of Anticoagulation in [place] [address] [place] [phone] Telly Gaines M.D. 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 Anticoagulant Treatment; Monitoring For Therapeutic Drug Therapy; Thrombosis Deep Vein Acute Calf Right (HCC) 8 Orders Only Department of Family Medicine, [facility], in [place], [place] [address] [place] [address] Jeffrey Garay P.A.-CHarmony 8 Clinical Communication Department of Family Medicine, [facility], in [place], [place] [address], [place] [address] Telly Gaines M.D. 8 11:00 AM LEADERSHIP INTERN Anticoagulation Visit Department of Anticoagulation in [place], [place] [address] [place] [address] Telly Gaines M.D. Monitoring For Therapeutic Drug Therapy (Primary Dx); Thrombosis Deep Vein Acute Calf Right (HCC); 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 Anticoagulant Treatment 8 1:00 PM LEADERSHIP INTERN Anticoagulation Visit Department of Anticoagulation in [address] [address] Jeffrey Garay P.A.-CHarmony Fibrillation Atrial (HCC); Monitoring For Therapeutic Drug Therapy; 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 Anticoagulant Treatment; Anticoagulant Therapy; Thrombosis Deep Vein Acute Calf Right (HCC) 8 Clinical Communication Department of Anticoagulation in [place], [place] [address] [place] [phone] Lani Malhotra [facility] (follow up) 8 9:54 AM LEADERSHIP INTERN - 8 11:59 PM LEADERSHIP INTERN Hospital Encounter Department of Laboratory Medicine in [place], [place] [address] [place] [address] Jeffrey Garay P.A.-CHarmony Fibrillation Atrial (HCC); Monitoring For Therapeutic Drug Therapy; 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 Anticoagulant Treatment; Anticoagulant Therapy; Thrombosis Deep Vein Acute Calf Right (HCC) Discharge Disposition: Home or Self Care 8 9:00 AM CDT Office Visit [facility] in [place], [place] [address] [place] [address] Alexus Chatman M.D. Apnea Sleep Obstructive (Primary Dx); Insomnia; Fatigue; Restless Leg Syndrome 8 7:45 AM CDT Diagnostic [facility] in [place], [place] [address] [place] [address] Alexus Chatman M.D. 8 Orders Only Department of Anticoagulation in [place], [place] [address] [place] [address] Debbi Marsh R.N. Thrombosis Deep Vein Acute Calf Right (HCC) (Primary Dx); Monitoring For Therapeutic Drug Therapy; Assisted Anticoagulant Treatment 8 Orders Only Department of Anticoagulation in [place], [place] [address] [place] [address] Matilde Cooper R.N. Thrombosis Deep Vein Acute Calf Right (HCC) (Primary Dx); Assisted Anticoagulant Treatment; Monitoring For Therapeutic Drug Therapy 8 5:00 PM CDT [facility] in [place], [place] [address] [place] [address] Alexus Chatman M.D. Apnea Sleep Obstructive 8 9:15 AM CDT Anticoagulation Visit Department of Anticoagulation in [address] [address] Jeffrey Garay P.A.-C. Fibrillation Atrial (HCC); Monitoring For Therapeutic Drug Therapy; 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 Anticoagulant Treatment; Anticoagulant Therapy; Thrombosis Deep Vein Acute Calf Right (HCC) 8 10:30 AM CDT Office Visit [facility] in [place], [place] [address] [place] [address] Alexus Chatman M.D. Apnea Sleep Obstructive (Primary Dx); Snoring; Fatigue; Sleep Disorder 8 Clinical Communication Department of Cardiovascular Medicine in [place], [place] [address] [place] [address] Ap Buckley M.D., Ph.D. 8 Clinical Communication Department of Cardiovascular Medicine in [address] [address] Ap Buckley M.D., Ph.D. 8 Orders Only Department of Cardiovascular Medicine in [address] [address] Ap Buckley M.D., Ph.D. 8 11:45 AM CDT Nurse Only Department of Family Medicine in [address] [address] Federico Oliveros, Milagros 8 Clinical Communication Department of Cardiovascular Medicine in [place], [place] [address] [place] [address] Ap Buckley M.D., Ph.D. 8 Clinical Communication Department of Cardiovascular Medicine in [place], [place] [address] [place] [address] Ap Buckley M.D., Ph.D. 8 Clinical Communication Department of Cardiovascular Medicine in [place], [place] [address] [place] [address] Ap Buckley M.D., Ph.D. Med [facility] 8 2:00 PM CDT Office Visit Department of Cardiovascular Medicine in [place], [place] [address] [place] [address] Ap Buckley M.D., Ph.D. Fibrillation Atrial (HCC) (Primary Dx) 8 Anticoagulation Visit Department of Anticoagulation in [place], [place] [address], [place] [address] Ileana Zurita R.N. Anticoagulant Therapy; Fibrillation Atrial (HCC); 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 Anticoagulant Treatment 8 Clinical Communication Department of [facility], [facility], in [place], [place] [address] [place] [address] Mabel Joya R.N. [facility] Follow-up 8 8:56 AM CDT - 8 11:59 PM CDT Hospital Encounter Department of Laboratory Medicine in [place], [place] [address] [place] [address] Jeffrey Garay P.A.-C. Anticoagulant Therapy; Monitoring For Therapeutic Drug Therapy; Fibrillation Atrial (HCC) Discharge Disposition: Home or Self Care 8 [facility] Only [facility] in [place], [place] [address] [place] [address] Alexus Chatman M.D. 8 Clinical Communication Department of Anticoagulation in [place], [place] [address] [place] [address] Ximena Fairbanks, [facility]-- discharge 8 10:15 AM CDT Anticoagulation Visit Department of Anticoagulation in [place], [place] [address] [place] [address] Jeffrey Garay P.A.-C. Fibrillation Atrial (HCC); Monitoring For Therapeutic Drug Therapy; 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 Anticoagulant Treatment; Anticoagulant Therapy 8 2:21 PM CDT - 8 8:23 PM CDT Hospital Encounter [facility], Fourth Floor [address] [place] [address] Robin Guevara M.D. Fibrillation Atrial (HCC) (Primary Dx) Discharge Disposition: Home or Self Care 8 11:00 AM CDT Office Visit Department of Family Medicine, [facility], in [place], [place] [address] [place] [address] Telly Gaines M.D. Maintenance Health Adult (Primary Dx); Sleep Apnea; Fibrillation Atrial (HCC) 8 Orders Only Department of Cardiovascular Medicine in [place], [place] [address] [place] [address] Ap Buckley M.D., Ph.D. Fibrillation Atrial (HCC) (Primary Dx) 8 4:06 PM CDT Anesthesia Event [facility], Fourth Floor [address] [place] [phone] Ap Redman, PORTFOLIO DIRECTOR, RESEARCH METHODOLOGIST, MNA, R.N. 8 Clinical Communication Department of Family Medicine, [facility], in [place], [place] [address] [place] [address] Telly Gaines M.D. 8 Clinical Communication [facility] [address] [place] [address] Radha Lomeli APRN, C.N.P., M.S. Pre-visit Testing Orders 8 7:46 AM CDT - 8 7:02 PM CDT Hospital Encounter [facility], Fourth Floor [address] [place] [address] Helder Pop M.D. Shiv Vance M.D. Tilbury, R. Thomas, M.D. Wiley, Brandon M, M.D. Fibrillation Atrial (HCC) (Primary Dx) Discharge Disposition: Home or Self Care 8 9:00 AM CDT Anticoagulation Visit Department of Anticoagulation in [address] [address] Jeffrey Garay, P.Aury.-C. Fibrillation Atrial (HCC); Monitoring For Therapeutic Drug Therapy; Assisted Anticoagulant Treatment; Anticoagulant Therapy 8 Clinical Communication Department of Family Medicine, [facility], in [place], [place] [address] [place] [address] Evan Armendariz, P.A.-C. Communication 8 Orders Only Department of Orthopedic Surgery in [place], [place] [address] [place] [phone] Evan Armendariz, P.A.-C. 8 10:24 AM CDT - 8 11:59 PM CDT Hospital Encounter Department of Radiology in [place], [place] [address] [place] [phone] Evan Armendariz P.A.-C. Primary Osteoarthritis Knee Right Discharge Disposition: Home or Self Care 8 11:00 AM CDT Comprehensive Visit Department of Orthopedic Surgery in [place], [place] [address] [address] Evan Armendariz P.A.-C. Primary Osteoarthritis Knee Right (Primary Dx) 8 Nurse Triage Department of Family Medicine, [facility], in [place], [place] [address] [place] [address] Nedra Singleton, RPreeti 8 Orders Only Department of Cardiovascular Medicine in [place], [place] [address] [place] [address] Hannah Hannon, NIKITA, C.N.P., M.S.N. Fibrillation Atrial (HCC) (Primary Dx) 8 9:30 AM CDT Anticoagulation Visit Department of Anticoagulation in [place], [place] [address] [place] [address] Jeffrey Garay P.A.-C. Fibrillation Atrial (HCC); Monitoring For Therapeutic Drug Therapy; Assisted Anticoagulant Treatment; Anticoagulant Therapy 8 Orders Only [facility] [place], [place] [address] [place] [address] Telly Gaines M.D. 8 Orders Only Department of Family Medicine, [facility] in [place], [place] [address] [place] [address] Telly Gaines M.D. Screening Mammogram Breast Cancer (Primary Dx) 8 10:40 AM CDT - 8 11:59 PM CDT Hospital Encounter Department of Radiology in [place], [place] [address] [place] [address] Telly Gaines M.D. Screening Mammogram Breast Cancer Discharge Disposition: Home or Self Care 8 Refill Department Family [place], [facility], in [place], [place] [address] [place] [address] Telly Gaines M.D. Med Refill [address] [facility] [place] Saeed [address] [facility] [place] [id number] Provider, Historical 8 Clinical Communication Department of Anticoagulation in [place], [place] [address] [place] [address] Matilde Cooper, RPreeti Atrial Fibrillation 8 9:00 AM CDT Anticoagulation Visit Department of Anticoagulation in [address] [address] Jeffrey Garay P.A.-C. Fibrillation Atrial (HCC); Monitoring For Therapeutic Drug Therapy; 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 Anticoagulant Treatment; Anticoagulant Therapy 8 10:15 AM CDT Office Visit Department of Family Medicine [address] [address] Jeffrey Garay P.A.-C. Fibrillation Atrial (HCC) (Primary Dx) 8 11:45 AM CDT Anticoagulation Visit Department of Anticoagulation in [address] [address] Jeffrey Garay P.AHelenCHarmony Fibrillation Atrial (HCC); Monitoring For Therapeutic Drug Therapy; 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 Anticoagulant Treatment; Anticoagulant Therapy 8 [facility] Only Department of Family Medicine, [facility], in [place], [place] [address] [place] [address] Telly Gaines M.D. Screening Mammogram Breast Cancer 8 Anticoagulation Visit Department of Anticoagulation in [address] [address] Alisha Elmore, R.N. Anticoagulant Therapy; Monitoring For Therapeutic Drug Therapy; Fibrillation Atrial (HCC); 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 Anticoagulant Treatment 8 Anticoagulation Visit Department of Anticoagulation in [address] [phone] Alisha Elmore, R.N. Anticoagulant Therapy; Monitoring For Therapeutic Drug Therapy; Fibrillation Atrial (HCC); Assisted Anticoagulant Treatment 8 Clinical Communication Department of Anticoagulation in [address] [address] Alisha Elmore, R.N. Communication 8 Anticoagulation Visit Department of Anticoagulation in [address] [address] Alisha Elmore, R.N. Anticoagulant Therapy; Monitoring For Therapeutic Drug Therapy; Fibrillation Atrial (HCC); 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 Anticoagulant Treatment 8 8:55 AM LEADERSHIP INTERN - 8 11:59 PM LEADERSHIP INTERN Hospital Encounter Department of Laboratory Medicine in [address] [address] Telly Gaines M.D. Anticoagulant Therapy; Monitoring For Therapeutic Drug Therapy; Fibrillation Atrial (HCC) Discharge Disposition: Home or Self Care 8 Orders Only Department of Anticoagulation in [address] [address] Alisha Elmore, R.N. Monitoring For Therapeutic Drug Therapy (Primary Dx); Assisted Anticoagulant Treatment; Fibrillation Atrial (HCC); Anticoagulant Therapy 8 Clinical Communication Department of Anticoagulation in [place], [place] [address] [place] [phone] Matilde Cooper RHarmonyN. Communication 8 9:00 AM LEADERSHIP INTERN Anticoagulation Visit Department of Anticoagulation in [address] [address] Jeffrey Garay, P.A.-C. Fibrillation Atrial (HCC); Monitoring For Therapeutic Drug Therapy; 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 Anticoagulant Treatment; Anticoagulant Therapy 8 Orders Only Department of Family Medicine, [facility], in [address] [address] Jeffrey Garay, P.A.-C. 8 10:28 AM LEADERSHIP INTERN - 8 11:59 PM LEADERSHIP INTERN Hospital Encounter Department of Radiology in [address] [address] Jeffrey Garay P.A.-CHarmony Cough; Fatigue Discharge Disposition: Home or Self Care 8 9:15 AM LEADERSHIP INTERN Office Visit Department of Family Medicine in [address] [phone] Jeffrey Garay P.A.-CHarmony Cough (Primary Dx); Fatigue 8 Orders Only Urgent Care in [place], [place] [address], [place] [address] [place] Poole M.D. 8 9:30 AM LEADERSHIP INTERN Office Visit Department of Family Medicine [address] [address] Mariah Wong, NIKITA, C.N.P., R.N. Jeffrey Garay P.A.-CHarmony Cough (Primary Dx); Asthma Mild Intermittent With Environmental Exposure To Tobacco Smoke 8 Abstract Department of Family Medicine, [facility], in [place], [place] [address] [place] [address] Provider, Historical 8 10:00 AM LEADERSHIP INTERN Office Visit Department of Family Medicine, [facility], [place], [place] [address] [place] [address] Indiana Poole M.D. Infection Upper Respiratory (Primary Dx); Acute Reactive Otitis Externa Right Ear 8 Nurse Triage Department of Family Medicine, [facility], in [place], [place] [address] [place] [address] Fátima Schneider RPreeti 8 8:45 AM LEADERSHIP INTERN Anticoagulation Visit Department of Anticoagulation in [address] [phone] Jeffrey Garay P.A.-C. Fibrillation Atrial (HCC); Monitoring For Therapeutic Drug Therapy; 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 Anticoagulant Treatment; Anticoagulant Therapy 8 Orders Only Department of Anticoagulation in [address] [phone] Alisha Elmore, R.N. Monitoring For Therapeutic Drug Therapy (Primary Dx); Fibrillation Atrial (HCC); Assisted Anticoagulant Treatment 8 Orders Only Department of Anticoagulation in [address] [address] Alisha Elmore, R.N. Anticoagulant Therapy; Monitoring For Therapeutic Drug Therapy; Fibrillation Atrial (HCC) 7 Anticoagulation Visit Department of Anticoagulation in [address] [address] Alisha Elmore, R.N. Anticoagulant Therapy; Monitoring For Therapeutic Drug Therapy; Fibrillation Atrial (HCC) 7 9:08 AM LEADERSHIP INTERN - 7 11:59 PM LEADERSHIP INTERN Hospital Encounter Department of Laboratory Medicine in [address] [address] Jeffrey Garay P.A.-C. Anticoagulant Therapy; Monitoring For Therapeutic Drug Therapy; Fibrillation Atrial (HCC) Discharge Disposition: Home or Self Care 7 Orders Only Department of Anticoagulation in [address] [phone] Alisha Elmore, R.N. Anticoagulant Therapy; Monitoring For Therapeutic Drug Therapy; Fibrillation Atrial (HCC) 7 Orders Only Department of Anticoagulation in [address] [phone] Alisha Elmore, R.N. Fibrillation Atrial (HCC) (Primary Dx) 7 Abstract Department of Anticoagulation in [place], [place] [address] [facility] [place] [address] Agnieszka Nichols, Thaddeus Anticoagulant Therapy; Monitoring For Therapeutic Drug Therapy; Fibrillation Atrial (HCC) 7 Anticoagulation Visit Department of Anticoagulation in [address] [phone] Alisha Elmore R.N. Anticoagulant Therapy; Monitoring For Therapeutic Drug Therapy; Fibrillation Atrial (HCC) 7 9:40 AM LEADERSHIP INTERN - 7 11:59 PM LEADERSHIP INTERN Hospital Encounter Department of Laboratory Medicine in [place], [place] [address] [place] [address] Telly Gaines M.D. Monitoring For Therapeutic Drug Therapy Discharge Disposition: Home or Self Care 7 11:13 AM CDT - 7 11:59 PM CDT Hospital Encounter [facility]X [facility] Telly Magana M.D. 7 11:13 AM CDT - 7 11:59 PM CDT Hospital Encounter HX [facility] LAB Telly Gaines M.D. 7 [facility] Only Department of Family [place], [facility], in [place], [place] [address] [place] [phone] Telly Gaines M.D. Fibrillation Atrial Paroxysmal (HCC) [...] PM CDT Hospital Encounter [facility]X [facility] Jacquie Escalante APRN, C.N.P., M.S.N. 7 8:06 AM CDT - 7 11:59 PM CDT Hospital Encounter [facility]X [facility] Telly Rodriguez M.D. 7 8:07 AM CDT - 7 [...] HX [facility] Telly Rodriguez M.D. 7 8:53 AM CDT - 7 11:59 PM CDT Hospital Encounter HX [facility] LAB Telly Gaines M.D. 7 8:54 AM CDT - 7 11:59 PM CDT Hospital Encounter [facility]X [facility] Telly Magana M.D. 7 8:14 AM LEADERSHIP INTERN - 7 11:59 PM LEADERSHIP INTERN Hospital Encounter HX [facility] LAB Jeffrey Garay P.A.-C. 7 9:03 AM CDT Hospital Encounter HX [facility] Telly Magana M.D. 7 9:02 AM CDT Hospital Encounter HX [facility] LAB Telly Gaines M.D. 7 12:17 PM LEADERSHIP INTERN - 7 5:35 PM LEADERSHIP INTERN Hospital Encounter HX RST EMERGENCY TRAUMA UNI Provider, Historical 6 8:31 AM LEADERSHIP INTERN - 6 11:59 PM LEADERSHIP INTERN Hospital Encounter HX [facility] LAB Telly Gaines M.D. 6 8:39 AM LEADERSHIP INTERN - 6 11:59 PM LEADERSHIP INTERN Hospital Encounter HX [facility] LAB Telly Gaines M.D. 6 9:32 AM LEADERSHIP INTERN - 6 11:59 PM LEADERSHIP INTERN Hospital Encounter HX [facility] LAB Telly [...] HX [facility] Telly Rodriguez M.D. 6 9:08 AM CDT - 6 [...] CDT Hospital Encounter HX [facility] PROTIME Telly Allen M.D. 6 8:10 AM CDT - 6 11:59 PM CDT Hospital Encounter [facility]X [facility] LAB Jacquie Escalante APRN, C.N.Fredrick, M.S.N. 6 8:11 AM CDT - 6 11:59 PM CDT Hospital Encounter [facility]X [facility] PROTIME Jacquie Avalos APRN, C.N.Eduardo., M.S.N. 6 10:23 AM CDT - 6 11:59 PM CDT Hospital Encounter [facility]X [facility] LAB Jacquie Escalante APRN, C.N.Eduardo., M.S.N. 6 11:09 AM CDT - 6 11:59 PM CDT Hospital Encounter [facility]X [facility] Jacquie Charles APRN, C.N.Eduardo., M.S.N. 6 9:15 AM CDT - 6 11:59 PM CDT Hospital Encounter [facility] Jose A Muller M.D. 6 9:51 AM CDT - 6 11:59 PM CDT Hospital Encounter [facility]X [facility] Karime Abdalla M.D. 6 2:52 PM CDT - 6 11:59 PM CDT Hospital Encounter [facility]X [facility] LAB Jacquie Escalante APRN, C.N.P., M.S.N. 6 9:01 AM CDT - 6 11:59 PM CDT Hospital Encounter [facility]X [facility] LAB Jacquie Escalante APRN, C.N.Fredrick, M.S.N. 6 9:00 AM CDT - 6 11:59 PM CDT Hospital Encounter HX [facility] PROTMI C Jacquie Escalante APRN, C.NRosa, M.S.N. 6 9:00 AM CDT - 6 11:59 PM CDT Hospital Encounter [facility]X [facility] LAB Jacquie Escalante APRN, C.N.Eduardo., M.S.N. 6 9:00 AM CDT - 6 11:59 PM CDT Hospital Encounter [facility]X [facility] Jacquie Charles APRN, C.N.Eduardo., M.S.N. 6 8:40 AM CDT - 6 11:59 PM CDT Hospital Encounter HX [facility] LAB Telly Gaines M.D. 6 8:02 AM LEADERSHIP INTERN - 6 11:59 PM LEADERSHIP INTERN Hospital Encounter HX [facility] LAB Jacquie Escalante APRN, C.NRosa, M.S.N. 6 8:10 AM LEADERSHIP INTERN - 6 11:59 PM LEADERSHIP INTERN Hospital Encounter HX [facility] LAB Telly Gaines M.D. 6 8:11 AM LEADERSHIP INTERN - 6 11:59 PM LEADERSHIP INTERN Hospital Encounter HX [facility] Telly Magana M.D. 6 8:22 AM LEADERSHIP INTERN - 6 11:59 PM LEADERSHIP INTERN Hospital Encounter HX [facility]ILY[facility] Jacquie Escalante APRN, C.NRosa, M.S.N. 6 10:54 AM LEADERSHIP INTERN - 6 11:59 PM LEADERSHIP INTERN Hospital Encounter HX [facility] LAB Telly Gaines M.D. 6 10:55 AM LEADERSHIP INTERN - 6 11:59 PM LEADERSHIP INTERN Hospital Encounter HX [facility] Telly Magana M.D. 6 1:51 PM LEADERSHIP INTERN - 6 11:59 PM LEADERSHIP INTERN Hospital Encounter [facility] Mason Mari P.A.-C., P.A. 5 8:02 AM LEADERSHIP INTERN - 5 11:59 PM LEADERSHIP INTERN Hospital Encounter HX [facility] LAB Telly Gaines M.D. 5 9:41 AM LEADERSHIP INTERN - 5 11:59 PM LEADERSHIP INTERN Hospital Encounter HX [facility] LAB Telly Gaines M.D. 5 9:42 AM LEADERSHIP INTERN - 5 11:59 PM LEADERSHIP INTERN Hospital Encounter HX [facility] PROTIME C Telly Gaines M.D. 5 10:29 AM CDT - 5 11:59 PM CDT Hospital Encounter [facility]X [facility] FAMILY[facility] Jacquie Escalante APRN C.N.Fredrick, M.S.N. 5 10:20 AM CDT - 5 11:59 PM CDT Hospital Encounter [facility]X [facility] LAB Lolis Tyler P.Aury.-C. 5 10:21 AM CDT - 5 11:59 PM CDT Hospital Encounter HX [facility] PROTIME C Lolis Tyler P.A.-C. 5 8:55 AM CDT - 5 11:59 PM CDT Hospital Encounter HX [facility] PROTMI C Jacquie Escalante APRN C.N.P., M.S.N. 5 8:54 AM CDT - 5 11:59 PM CDT Hospital Encounter [facility]X [facility] LAB Jacquie Escalante APRN, C.N.P., M.S.N. 5 9:02 AM CDT - 5 11:59 PM CDT Hospital Encounter HX [facility] PROTMI C Jacquie Escalante APRN C.N.P., M.S.N. 5 9:01 AM CDT - 5 11:59 PM CDT Hospital Encounter HX [facility] LAB Jacquie Escalante APRN, C.NRosa, M.S.N. 5 9:16 AM CDT - 5 11:59 PM CDT Hospital Encounter HX [facility] Jacquie Charles APRN, C.N.Fredrick, M.S.N. 5 9:15 AM CDT - 5 11:59 PM CDT Hospital Encounter [facility]X [facility] LAB Jacquie Escalante APRN, C.N.Fredrick, M.S.N. 5 10:30 AM CDT - 5 [...] Encounter HX NO MAPPING 5 3:00 PM LEADERSHIP INTERN - 5 11:59 PM LEADERSHIP INTERN Hospital Encounter HX [facility] FBHB Urban De La O M.D. 5 9:46 AM LEADERSHIP INTERN - 5 11:59 PM LEADERSHIP INTERN Hospital Encounter HX [facility] Lolis Almeida P.Raul 5 9:45 AM LEADERSHIP INTERN - 5 11:59 PM LEADERSHIP INTERN Hospital Encounter HX [facility] Lolis Denny P.A.-C. 5 5:28 AM LEADERSHIP INTERN - 5 12:55 PM LEADERSHIP INTERN Hospital Encounter HX RST Ap Cherry M.D., Ph.D. 5 - 5 5:28 AM LEADERSHIP INTERN Hospital Encounter HX NO MAPPING Provider, Historical 5 - 5 11:59 PM LEADERSHIP INTERN Hospital Encounter HX NO MAPPING 5 10:23 AM LEADERSHIP INTERN - 5 11:59 PM LEADERSHIP INTERN Hospital Encounter HX [facility] Lolis Denny P.Aury.-C. 5 3:51 PM LEADERSHIP INTERN - 5 11:59 PM LEADERSHIP INTERN Hospital Encounter HX [facility] FBHB Lolis Almeida P.A.-C. 4 12:40 PM LEADERSHIP INTERN - 4 3:16 PM LEADERSHIP INTERN Hospital Encounter HX RST EMERGENCY TRAUMA UNI Provider, Historical 4 11:06 AM LEADERSHIP INTERN - 4 11:59 PM LEADERSHIP INTERN Hospital Encounter HX [facility] LAB Provider, Historical 4 11:36 AM LEADERSHIP INTERN - 4 11:59 PM LEADERSHIP INTERN Hospital Encounter HX [facility] FAMILY[facility] Lolis Tyler P.A.-C. 4 11:17 AM LEADERSHIP INTERN - 4 11:59 PM LEADERSHIP INTERN Hospital Encounter HX [facility] PROTLolis Espinal P.A.-C. 4 3:37 PM LEADERSHIP INTERN - 4 8:55 PM LEADERSHIP INTERN Hospital Encounter HX RST EMERGENCY TRAUMA UNI Provider, Historical 4 9:20 AM LEADERSHIP INTERN - 4 11:59 PM LEADERSHIP INTERN Hospital Encounter HX NO MAPPING Sumaya Parekh APRN, C.N.P., D.N.P., R.N. 4 8:30 AM LEADERSHIP INTERN - 4 11:59 PM LEADERSHIP INTERN Hospital Encounter HX [facility] LAB Sumaya Parekh APRN, C.N.P., D.N.P., R.N. 4 8:29 AM LEADERSHIP INTERN - 4 11:59 PM LEADERSHIP INTERN Hospital Encounter HX [facility] FAMILYPRA Sumaya Parekh APRN, C.N.P., D.N.P., R.N. 4 10:28 AM LEADERSHIP INTERN - 4 11:59 PM LEADERSHIP INTERN Hospital Encounter HX [facility] FAMILYPRA Sumaya Parekh APRN, C.N.P., D.N.P., R.N. 4 9:43 AM LEADERSHIP INTERN - 4 11:59 PM LEADERSHIP INTERN Hospital Encounter HX [facility] LAB Sumaya Parekh APRN, C.N.P., D.N.P., R.N. 4 9:44 AM LEADERSHIP INTERN - 4 11:59 PM LEADERSHIP INTERN Hospital Encounter HX [facility] FAMILYPRA Sumaya Parekh APRN, C.N.P., D.N.P., R.N. 4 10:34 AM LEADERSHIP INTERN - 4 11:59 PM LEADERSHIP INTERN Hospital Encounter HX [facility] LAB Sumaya Parekh APRN, C.N.P., D.N.P., R.N. 4 10:35 AM LEADERSHIP INTERN - 4 11:59 PM LEADERSHIP INTERN Hospital Encounter HX [facility] FAMILYPRA Sumaya Parekh APRN, C.N.P., D.N.P., R.N. 4 10:37 AM LEADERSHIP INTERN - 4 11:59 PM LEADERSHIP INTERN Hospital Encounter HX [facility]KF FAMILYSumaya Prieto APRN, C.N.P., D.N.P., R.N. 4 1:21 PM LEADERSHIP INTERN - 4 11:59 PM LEADERSHIP INTERN Hospital Encounter HX [facility]KF FAMILYSumaya Prieto PORTFOLIO DIRECTOR, Mari.N.P., D.N.P., R.N. 4 - 4 11:59 PM [...] Hospital Encounter HX [facility] LAB Jeffrey Garay, P.A.-C. 4 10:02 AM CDT - 4 11:59 PM CDT Hospital Encounter HX [facility] FAMILYPRA Jeffrey Garay, P.A.-C. 4 8:53 AM CDT - 4 11:59 PM CDT Hospital Encounter HX [facility] LAB Jeffrey Garay, P.A.-C. 4 8:26 AM CDT - 4 11:59 PM CDT Hospital Encounter HX [facility] FAMILYPRA Jeffrey Garay, P.A.-C. 4 11:30 AM CDT - 4 [...] Encounter HX NO MAPPING 4 5:08 AM [facility] - 4 8:40 AM MST Hospital Encounter HX [facility] ED Dada Gonzales M.D. 4 9:52 AM [facility] - 4 12:10 PM MST Hospital Encounter HX [facility] ED Alexandru Zuniga D.O. 4 1:01 PM LEADERSHIP INTERN - 4 11:59 PM LEADERSHIP INTERN Hospital Encounter HX [facility] FAMILYPRA Jeffrey Garay, PHarmonyA.-Mari. 4 10:10 AM LEADERSHIP INTERN - 4 11:59 PM LEADERSHIP INTERN Hospital Encounter HX [facility] LAB Sumaya Parekh APRN, C.N.P., D.N.P., R.N. 4 10:10 AM LEADERSHIP INTERN - 4 11:59 PM LEADERSHIP INTERN Hospital Encounter HX [facility] FAMILYPRA Sumaya Parekh APRN, C.N.P., D.N.P., R.N. 4 8:49 AM LEADERSHIP INTERN - 4 11:59 PM LEADERSHIP INTERN Hospital Encounter HX [facility] LAB Sumaya Parekh APRN, C.N.P., D.N.P., R.N. 4 8:50 AM LEADERSHIP INTERN - 4 11:59 PM LEADERSHIP INTERN Hospital Encounter HX [facility] FAMILYPRA Sumaya Parekh APRN, C.N.P., D.N.P., R.N. 4 5:35 AM LEADERSHIP INTERN - 4 1:42 PM LEADERSHIP INTERN Hospital Encounter HX RST ANGE 4C 4 - 4 5:35 AM LEADERSHIP INTERN Hospital Encounter HX NO MAPPING 4 - 4 11:59 PM LEADERSHIP INTERN Hospital Encounter HX NO MAPPING 4 12:20 PM LEADERSHIP INTERN - 4 11:59 PM LEADERSHIP INTERN Hospital Encounter HX RST CARDIOLOGY Ap Buckley M.D., Ph.D. 4 - 4 11:59 PM LEADERSHIP INTERN Hospital Encounter HX NO MAPPING 3 10:03 AM LEADERSHIP INTERN - 3 11:59 PM LEADERSHIP INTERN Hospital Encounter HX [facility] FAMILYPRA Sumaya Parekh APRN, C.N.P., D.N.P., R.N. 3 10:15 AM LEADERSHIP INTERN - 3 11:59 PM LEADERSHIP INTERN Hospital Encounter HX [facility] LAB Sumaya Parekh APRN, C.N.P., D.N.P., R.N. 3 1:25 PM LEADERSHIP INTERN - 3 11:59 PM LEADERSHIP INTERN Hospital Encounter HX [facility] LAB Sumaya Parekh APRN, C.N.P., D.N.P., R.N. 3 10:35 AM LEADERSHIP INTERN - 3 11:59 PM LEADERSHIP INTERN Hospital Encounter HX [facility] LAB Sumaya Parekh APRN, C.N.P., D.N.P., R.N. 3 11:53 AM LEADERSHIP INTERN - 3 11:59 PM LEADERSHIP INTERN Hospital Encounter HX [facility] LAB Sumaya [...] Sumaya Wood APRN, C.N.P., D.N.P., R.N. 3 8:59 AM CDT Hospital Encounter HX [facility] Sumaya Wood APRN, C.N.P., D.N.P., R.N. 3 1:01 PM [...] LAB Ap Oakes M.D. 3 9:22 AM LEADERSHIP INTERN - 3 11:59 PM LEADERSHIP INTERN Hospital Encounter HX [facility] Ap Vasquez M.D. 3 9:20 AM LEADERSHIP INTERN - 3 11:59 PM LEADERSHIP INTERN Hospital Encounter HX [facility]KF Ap Long M.D. 3 9:16 AM LEADERSHIP INTERN - 3 11:59 PM LEADERSHIP INTERN Hospital Encounter HX [facility] Ap Long M.D. 2 4:16 PM LEADERSHIP INTERN - 2 11:59 PM LEADERSHIP INTERN Hospital Encounter HX RST EMERGENCY TRAUMA UNI Provider, Historical 2 - 2 11:59 PM LEADERSHIP INTERN Hospital Encounter HX NO MAPPING 2 9:11 AM LEADERSHIP INTERN - 2 11:59 PM LEADERSHIP INTERN Hospital Encounter HX [facility] LAB Ap [...] LAB Ap Oakes M.D. 2 9:48 AM LEADERSHIP INTERN - 2 11:59 PM LEADERSHIP INTERN Hospital Encounter HX [facility] LAB Ap Oakes M.D. 2 - 2 11:59 PM LEADERSHIP INTERN Hospital Encounter HX NO MAPPING 2 8:14 AM LEADERSHIP INTERN - 2 11:59 PM LEADERSHIP INTERN Hospital Encounter HX [facility] LAB Ap Oakes M.D. 2 9:30 AM LEADERSHIP INTERN - 2 11:59 PM LEADERSHIP INTERN Hospital Encounter HX [facility] LAB Ap Oakes M.D. 2 8:27 AM LEADERSHIP INTERN - 2 11:59 PM LEADERSHIP INTERN Hospital Encounter HX [facility] LAB Ap Oakes M.D. 2 8:28 AM LEADERSHIP INTERN - 2 11:59 PM LEADERSHIP INTERN Hospital Encounter HX [facility]KF FAMILYPRA Ap Oakes M.D. 1 8:29 AM LEADERSHIP INTERN - 1 11:59 PM LEADERSHIP INTERN Hospital Encounter HX [facility] LAB Ap Oakes M.D. 1 8:40 AM LEADERSHIP INTERN - 1 11:59 PM LEADERSHIP INTERN Hospital Encounter HX [facility] LAB Ap Oakes M.D. 1 9:29 AM LEADERSHIP INTERN - 1 11:59 PM LEADERSHIP INTERN Hospital Encounter HX [facility] LAB Ap Oakes M.D. 1 - 1 11:59 PM LEADERSHIP INTERN Hospital Encounter HX NO MAPPING 1 9:29 AM LEADERSHIP INTERN - 1 11:59 PM LEADERSHIP INTERN Hospital Encounter HX [facility] LAB Ap Oakes M.D. 1 7:57 AM LEADERSHIP INTERN - 1 11:59 PM LEADERSHIP INTERN Hospital Encounter HX [facility] FAMILYPRA Sumaya Parekh APRN, C.N.P., D.N.P., R.N. 1 7:56 AM LEADERSHIP INTERN - 1 11:59 PM LEADERSHIP INTERN Hospital Encounter HX [facility] LAB pA Oakes M.D. 1 9:43 AM LEADERSHIP INTERN - 1 11:59 PM LEADERSHIP INTERN Hospital Encounter HX [facility] FAMILYPRA Sumaya Parekh APRN, C.N.P., D.N.P., R.N. 1 9:30 AM LEADERSHIP INTERN - 1 11:59 PM LEADERSHIP INTERN Hospital Encounter HX [facility] LAB Ap Oakes M.D. 1 9:19 AM LEADERSHIP INTERN - 1 11:59 PM LEADERSHIP INTERN Hospital Encounter HX [facility] LAB Ap Oakes M.D. 1 3:29 PM LEADERSHIP INTERN - 1 11:59 PM LEADERSHIP INTERN Hospital Encounter HX [facility] FAMILYPRA Sumaya Parekh APRN, C.N.P., D.N.P., R.N. 1 9:27 AM LEADERSHIP INTERN - 1 11:59 PM LEADERSHIP INTERN Hospital Encounter HX [facility] LAB Ap Oakes M.D. 1 9:20 AM LEADERSHIP INTERN - 1 11:59 PM LEADERSHIP INTERN Hospital Encounter HX [facility] LAB Ap Okaes M.D. 1 9:28 AM LEADERSHIP INTERN - 1 11:59 PM LEADERSHIP INTERN Hospital Encounter HX [facility] LAB Ap Oakes M.D. 1 9:43 AM LEADERSHIP INTERN - 1 11:59 PM LEADERSHIP INTERN Hospital Encounter HX [facility] LAB Ap Oakes M.D. 1 1:25 PM LEADERSHIP INTERN - 1 11:59 PM LEADERSHIP INTERN Hospital Encounter HX [facility] LAB Ap Oakes M.D. 1 1:00 PM LEADERSHIP INTERN - 1 11:59 PM LEADERSHIP INTERN Hospital Encounter HX [facility] LAB Ap Oakes M.D. 1 12:18 PM LEADERSHIP INTERN - 1 2:43 PM LEADERSHIP INTERN Hospital Encounter HX RST DOMITILLA 2D 1 - 1 12:18 PM LEADERSHIP INTERN Hospital Encounter HX NO MAPPING 1 7:00 AM LEADERSHIP INTERN - 1 3:07 PM LEADERSHIP INTERN Hospital Encounter HX RST DOMITILLA 2D 1 - 1 7:00 AM LEADERSHIP INTERN Hospital Encounter HX NO MAPPING 1 8:07 [...] CDT Hospital Encounter HX NO MAPPING Alexandra Ambriz Pharm.D., R.Ph. 0 3:16 PM CDT - 0 11:59 PM CDT Hospital Encounter HX [facility] FAMILYPRA Pesta Olesya Laurent, C.N.P., R.N. 0 9:03 AM CDT - 0 11:59 PM CDT Hospital Encounter HX NO MAPPING Jeffrey Garay P.A.-C. 9 - 9 11:59 PM LEADERSHIP INTERN Hospital Encounter HX NO MAPPING 9 9:25 AM CDT Hospital Encounter HX NO MAPPING Jose A Muller M.D. 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 8 3:02 PM LEADERSHIP INTERN - 8 4:09 PM LEADERSHIP INTERN Hospital Encounter HX RST ANGE 4C 8 [...] Encounter HX NO MAPPING 1 12:46 AM LEADERSHIP INTERN - 1 2:17 PM LEADERSHIP INTERN Hospital Encounter HX RST DOMITILLA 5D 0 6:16 AM LEADERSHIP INTERN - 0 9:47 AM LEADERSHIP INTERN Hospital Encounter HX RST UNIT 5-4 GYNECOLOGY Allergies Active Allergy Reactions Criticality Noted Date Comments Iodinated Contrast Media Anaphylaxis High 01/28/2010 Latex Hives (Reselect Reaction) 01/28/2010 Metoclopramide Shortness of breath (Reselect Reaction) 01/16/2014 Tramadol Other (see comments) 07/25/2018 passed out Medications zolpidem (AMBIEN) 5 mg tabletIndications :Restless Leg Syndrome TAKE 1 TABLET(5 MG) BY MOUTH AT BEDTIME NEEDED FOR SLEEP 60 tablet 01/12/20 Active Additional Information Patient taking differently: 5 mg oral Bedtime PRN, sleep, Reported on 07/19/2023 cholecalciferol, vitamin D3, 25 mcg (1,000 Unit) tablet Take 25 mcg by mouth daily. Active metoprolol tartrate (LOPRESSOR) 25 mg tablet Take 0.5 tablets (12.5 mg total) by mouth 2 (two) times a day. 180 tablet 3 07/21/20 Active dofetilide (TIKOSYN) 500 mcg capsule Take 1 capsule (500 mcg total) by mouth 2 (two) times a day. 180 capsule 3 07/21/20 Active warfarin (COUMADIN) 5 mg tabletIndications :Atrial Fibrillation Paroxysmal (HCC),Assisted (Current) Anticoagulant Treatment,Thrombo sis Deep Vein Acute [...] BY MOUTH DAILY 90 tablet 3 11/03/20 23 Active DME CPAPIndications:O bstructive Sleep Apnea Adult DME Order 1 each 12/08/19 24 Active Jardiance 10 mg tablet TAKE 1 TABLET(10 MG) BY MOUTH EVERY MORNING BEFORE BREAKFAST 100 tablet 3 03/01/20 24 Active pantoprazole (PROTONIX) 40 mg EC tablet Take 1 tablet (40 mg total) by mouth 2 (two) times a day before breakfast and dinner. 180 tablet 3 04/05/20 24 Active atorvastatin (Lipitor) 10 mg tablet Take [...] cardioversion, apparent NSR until wrapping up [facility] trip 07/23/18 - HR max 120 on metoprolol succinate 25 mg once daily - a.fib on exam today - discussed, to Rhythm Service for iv sotalol - back to Sleep Medicine for continued efforts re [facility] Rx. 09/16/2021 NSR on sotalol 120 mg BID ?? 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 06/17/[address] [place] protocol - DC warfarin 5-7 days preop, [...] deep compression, but otherwise benign exam - [facility] US negative - observe only. [...] cardioversion, apparent NSR until wrapping up [facility] trip 07/23/18 - HR max 120 on [...] diarrhea. NEG exam at [facility] ED [place] 12/29, repeat exam benign 01/26. Discussed in [...] sleeping a lot on January vacation in [place] - glad that spouse was off golfing [...] COVID-19 09/08/2020 Anticoagulant Therapy [Z79.01] 10/02/2017 08/12/2018 Assisted (Current) Anticoagulant Treatment 10/09/2011 08/12/2018 Immunizations Name [...] Mother Social History Smoking Status as of 09/14/2024 Tobacco Use Types Packs/Day Years Used Date [...] often do you attend chur ch or presybeterian services? More than 4 times per year 02/25/2022 Do you belong to any clubs o r organizations such as yazdanism groups, unions, fraternal or athletic groups, or [...] Answer Date Recorded PHQ-2 Score 3 04/26/2024 [facility] - [...] your [facility] situation today? [facility] 05/26/2023 Education Answer Date Recorded What is the highest level of school you have completed or the highest degree you have received? Master's degree (e.g., MA, MS, Tacho, MEd, [employer], [employer]) 06/27/2019 Sex and Gender Information Value Date Recorded Sex Assigned at Female 11/24/2017 7:34 PM [employer] Legal Sex Female 4:28 AM [employer] Gender Identity Female 05/03/2021 11:34 AM CDT Sexual Orientation Straight 05/03/2021 11 :34 AM CDT Last Filed Vital Signs Vital Sign Reading Time Taken Comments Blood Pressure 121/76 07/18/2024 10:46 AM CDT Pulse 80 07/18/2024 10:46 AM CDT Temperature 36.4 ??C (97.5 ??F) 11/03/2023 2:50 PM CS T Respiratory Rate 16 11/03/2023 5:34 PM [employer] Oxygen Saturation 96% 11/03/2023 9:29 AM [employer]N Inhaled Oxygen Concentration - - Weight 93.1 kg (205 lb 4 oz) 07/18/2024 10:46 AM CDT Height 155.4 cm (5' 1.18) 07/18/2024 10:46 AM C DT Body Mass Index 38.55 07/18/2024 10:46 AM CDT Plan of Treatment Upcoming Encounters Date Type Department Care Team (Latest Contact Info) Description 09/25/2024 9:45 AM [employer] INTERN Anticoagulation Visit Department of Anticoagulation in [place], [place] [address] [place] [phone] Emilia Lincoln M.D. [address] [place] [phone] 11/20/2024 8:30 AM LEADERSHIP INTERN Clinical Communication Virtual Review in [place], [place] [address] [place] [phone] 11/23/2024 9:40 AM LEADERSHIP INTERN Appointment Department of Laboratory Medicine and Pathology, [facility], in [place], [place] [address] [place] [phone] Ap Buckley M.D., Ph.D. [address] [place] [phone] 11/23/2024 10:00 AM LEADERSHIP INTERN Ancillary Procedure Department of Cardiovascular Medicine in [place], [place] [address] [place] [phone] Ap Buckley M.D., Ph.D. [address] [place] [phone] 11/23/2024 10:40 AM LEADERSHIP INTERN Appointment Department of Cardiovascular Diseases in [place], [place] [address] [place] [phone] Ap Buckley M.D., Ph.D. [address] [place] [phone] Discharge Disposition: Home or Self Care 11/23/2024 1:00 PM LEADERSHIP INTERN Office Visit Department of Cardiovascular Medicine in [place], [place] [address] [place] [phone] Melissa Henriquez P.A.-C., M.S. [address] [place] [phone] 11/23/2024 3:00 PM LEADERSHIP INTERN Appointment Department of Radiology, [facility], in [place], [place] [address] [place] [phone] Ap Buckley M.D., Ph.D. [address] [place] [phone] 11/24/2024 8:05 AM LEADERSHIP INTERN Hospital Encounter Division of Cardiovascular Diseases in [place], [place] [address] [place] [phone] Ap Buckley M.D., Ph.D. [address] [place] [phone] Atrial Fibrillation Unspecified (HCC) 11/24/2024 8:05 AM LEADERSHIP INTERN - 11/24/2024 11:47 AM LEADERSHIP INTERN Surgery Division of Cardiovascular Diseases in [place], [place] [address] [place] [phone] Ap Buckley M.D., Ph.D. [address] [place] [phone] PULSED FIELD [employer]BLATION Medical Devices Implanted Type Area Stock Drier Tender Device Identifier Shelf Expiration Date Model / Serial / Lot J J Patella Rev Round 32m - [id number] Implanted:Qty: 1 on 09/11/2011 Knee Implant Other/Legacy - See Implant Description [employer] Description:Device Manufactu rer - [employer]. Body Location - Other. Left. Device Status Text - KNEE [id number]. Depuy-Insert Stabilized Sz 3 10mm - Rodriguez [id number] Implanted:Qty: 1 on 09/11/2011 Knee Implant Other/Legacy - See Implant Description [employer] Description:Device Manufactu rer - [employer]. Body Location - Other. Left. Device Status Text - KNEE [id number]. Sigma Post Stab.W Lug Fem Sz 3 Lt - Rodriguez [id number] Implanted:Qty: 1 on 09/11/2011 Knee Implant Other/Legacy - See Implant Description [employer] Description:Device Manufactu rer - [employer]. Body Location - Other. Left. Device Status Text - KNEE [id number]. Depuy-Tib Tray Mod Cement Cocr Sz3 - Rodriguez [id number] Implanted:Qty: 1 on 09/11/2011 Knee Implant Other/Legacy - See Implant Description [employer] Description:Device Manufactu rer - [employer]. Body Location - Other. Left. Device Status Text - KNEE [id number]. Conversions - Default Historical Implant Device Implanted:09/27 (Quantity not on file) Knee Implant Description:Device Status Te xt - Knee Imp. artificial left knee. Cement Bone Large - Rodriguez [id number] Implanted:Qty: 2 on 09/11/2011 Misc Other Nette Description:Device Manufactu rer - Nette Terell.. Device Status Text - [id number]. 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) Anticoagulant Treatment Monitoring For Therapeutic [...] 12/06/2023 PROTHROMBIN TIME (PT), P Routine 11/29/2023 MS HOME SLEEP TEST TYPE CINDY 4 Routine 11/25/2023 10:32 AM LEADERSHIP INTERN Obstructive Sleep Apnea Adult PROTHROMBIN TIME (PT), P Routine 11/22/2023 PROTHROMBIN TIME (PT), P Routine 11/15/2023 RENAL FUNCTION PANEL, S Routine 11/10/2023 9:51 AM LEADERSHIP INTERN Hypertension Pulmonary (HCC) Anemia Iron Deficiency Chronic Diastolic (Congestive) Heart Failure (HCC) PROTHROMBIN TIME (PT), P Routine 11/08/2023 6 MINUTE WALK Routine 11/03/2023 10:00 AM LEADERSHIP INTERN Hypertension Pulmonary (HCC) ECG Routine 11/01/2023 4:15 PM LEADERSHIP INTERN Atrial Fibrillation Unspecified (HCC) Atrial Fibrillation Paroxysmal (HCC) (TTE) 2D ECHO DOPPLER COLOR Routine 11/01/2023 2:55 PM LEADERSHIP INTERN Hypertension Pulmonary (HCC) FERRITIN, S Routine 11/01/2023 1:25 PM LEADERSHIP INTERN IRON AND TOT IRON-BINDING CAPACITY, S/P Routine 11/01/2023 1:25 PM LEADERSHIP INTERN Hypertension Pulmonary (HCC) Anemia Iron Deficiency COMPREHENSIVE METABOLIC PANEL, S/P Routine 11/01/2023 1:25 PM LEADERSHIP INTERN Hypertension Pulmonary (HCC) NT-PRO B-TYPE NATRIURETIC PEPTIDE (BNP), S Routine 11/01/2023 1:25 PM LEADERSHIP INTERN Hypertension Pulmonary (HCC) CBC WITH DIFFERENTIAL, B Routine 11/01/2023 1:25 PM LEADERSHIP INTERN Hypertension Pulmonary (HCC) MAGNESIUM, S Routine 11/01/2023 1:25 PM LEADERSHIP INTERN Atrial Fibrillation Unspecified (HCC) Atrial Fibrillation Paroxysmal (HCC) LIPID PANEL, S Routine 11/01/2023 1:25 PM LEADERSHIP INTERN Hyperlipidemia PROTHROMBIN TIME (PT), P Routine 10/18/2023 [...] 3:23 PM CDT Atrial Fibrillation Paroxysmal (HCC) 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) Anticoagulant Treatment Monitoring For Therapeutic Drug Therapy INR REFLEX, POCT, B Routine 04/19/2023 3:22 PM CDT PROTHROMBIN TIME (PT), P Routine 04/12/2023 HOLTER MONITOR - IN CLINIC STOVE CLEANER Routine 04/08/2023 6:41 PM CDT Atrial Fibrillation [...] DOPPLER AND CONTRAST Routine 11/12/2022 3:12 PM LEADERSHIP INTERN Atrial Fibrillation Unspecified Dyspnea On Exertion ECG Routine 11/12/2022 10:38 AM LEADERSHIP INTERN Atrial Fibrillation Unspecified DX CHEST AP OR PA AND LATERAL 2 VIEWS RAD - Routine (most inpatients and all outpatients) 11/12/2022 9:23 AM LEADERSHIP INTERN Dyspnea On Exertion CBC WITHOUT DIFFERENTIAL, B Routine 11/12/2022 9:07 AM LEADERSHIP INTERN Atrial Fibrillation Unspecified Dyspnea On Exertion THYROID FUNCTION CASCADE, S Routine 11/12/2022 9:07 AM LEADERSHIP INTERN Atrial Fibrillation Unspecified CREATININE WITH EGFR, S/P Routine 11/12/2022 9:07 AM LEADERSHIP INTERN Atrial Fibrillation Unspecified POTASSIUM, S/P Routine 11/12/2022 9:07 AM LEADERSHIP INTERN Atrial Fibrillation Unspecified PROTHROMBIN TIME (PT), P Routine 11/09/2022 HOLTER MONITOR - IN CLINIC STOVE CLEANER Routine 11/05/2022 10:28 PM LEADERSHIP INTERN Atrial Fibrillation Unspecified PROTHROMBIN TIME (PT), P [...] REFLEX, POCT, B Routine 01/08/2022 1:26 PM LEADERSHIP INTERN Atrial Fibrillation Paroxysmal (HCC) Assisted (Current) Anticoagulant Treatment Monitoring For Therapeutic Drug Therapy Thrombosis Deep Vein Personal History INR REFLEX, POCT, B Routine 01/08/2022 1:24 PM LEADERSHIP INTERN PROTHROMBIN TIME (PT), P Routine 01/05/2022 PROTHROMBIN TIME (PT), P Routine 12/29/2021 INR, POCT, B Routine 12/16/2021 10:27 AM LEADERSHIP INTERN INR, POCT, B Routine 12/02/2021 10:24 AM LEADERSHIP INTERN INR, POCT, B Routine 11/21/2021 2:32 PM LEADERSHIP INTERN INR, POCT, B Routine 11/18/2021 1:53 PM LEADERSHIP INTERN INR, POCT, B Routine 11/04/2021 7:44 AM LEADERSHIP INTERN PROTHROMBIN TIME (PT), P Routine 09/08/2021 1:00 [...] INR, POCT, B Routine 12/12/2020 8:33 AM LEADERSHIP INTERN MS ARTHCS ASP/INJ MJR JT WO US Routine 12/05/2020 8:30 AM LEADERSHIP INTERN Primary Osteoarthritis Knee Right ACID-BASE BALANCE, B Routine 11/27/2020 9:26 AM LEADERSHIP INTERN Dyspnea 6 MINUTE WALK Routine 11/27/2020 9:11 AM LEADERSHIP INTERN Dyspnea PULMONARY FUNCTION TESTS Routine 11/26/2020 1:11 PM LEADERSHIP INTERN Bronchitis Chronic (HCC) EXHALED NITRIC OXIDE Routine 11/26/2020 12:59 PM LEADERSHIP INTERN Cough INR, POCT, B Routine 11/26/2020 10:03 AM LEADERSHIP INTERN INR, POCT, B Routine 10/29/2020 9:58 AM LEADERSHIP INTERN FL ESOPHAGRAM DOUBLE CONTRAST RAD - Routine (most inpatients and all outpatients) 10/15/2020 2:41 PM LEADERSHIP INTERN Gastroesophageal Reflux Disease Without Esophagitis INR, POCT, B Routine 10/15/2020 11:[address] CHEST WITHOUT IV CONTRAST RAD - Routine (most inpatients and all outpatients) 10/11/2020 12:15 PM LEADERSHIP INTERN Respiratory Infection Type Unknown Due To COVID-19 Cough Other Dyspnea PROTHROMBIN TIME (PT), P Routine 10/07/2020 10:41 AM LEADERSHIP INTERN Monitoring For Therapeutic Drug Therapy 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 Anticoagulant Treatment Atrial Fibrillation Paroxysmal (HCC) CREATININE WITH EGFR, S/P Routine 10/07/2020 10:41 AM LEADERSHIP INTERN Atrial Fibrillation (HCC) POTASSIUM, S/P Routine 10/07/2020 10:41 AM LEADERSHIP INTERN Atrial Fibrillation (HCC) ECG Routine 10/07/2020 10:13 AM LEADERSHIP INTERN Atrial Fibrillation (HCC) INR, POCT, B Routine 09/30/2020 9:16 AM LEADERSHIP INTERN PROTHROMBIN TIME (PT), P STAT 09/23/2020 11:16 AM LEADERSHIP INTERN Atrial Fibrillation Paroxysmal (HCC) Assisted Anticoagulant Treatment Monitoring For Therapeutic Drug Therapy Thrombosis Deep Vein Acute Calf Right (HCC) PROTHROMBIN TIME (PT), P STAT 09/16/2020 11:28 AM LEADERSHIP INTERN Atrial Fibrillation Paroxysmal (HCC) Assisted Anticoagulant Treatment [...] 12:23 PM CDT Atrial Fibrillation Paroxysmal (HCC) 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 Treatment Monitoring For Therapeutic Drug Therapy [...] CDT SARS CORONAVIRUS 2, MOLECULAR DETECTION, PCR (LOCOMOTIVE MECHANIC) Routine 09/08/2020 3:14 AM CDT DX CHEST [...] INR, POCT, B Routine 01/11/2020 9:35 AM LEADERSHIP INTERN INR, POCT, B Routine 12/21/2019 9:03 AM LEADERSHIP INTERN INR, POCT, B Routine 11/30/2019 10:20 AM LEADERSHIP INTERN INR, POCT, B Routine 11/23/2019 10:30 AM LEADERSHIP INTERN MS URINALYSIS AUTO W MICRO Routine 11/20/2019 10:58 AM LEADERSHIP INTERN URINALYSIS WITH MICROSCOPIC IF INDICATED, U Routine 11/20/2019 10:58 AM LEADERSHIP INTERN Dysuria BACTERIAL CULTURE, AEROBIC + SUSC, URINE Routine 11/20/2019 10:58 AM LEADERSHIP INTERN Dysuria INR, POCT, B Routine 11/09/2019 3:29 PM LEADERSHIP INTERN INR, POCT, B Routine 10/19/2019 9:36 AM LEADERSHIP INTERN INR, POCT, B Routine 09/07/2019 9:34 AM [...] Atrial (HCC) HOLTER MONITOR - IN CLINIC STOVE CLEANER Routine 03/15/2019 11:31 AM CDT Pain Chest INR, POCT, B Routine 03/09/2019 9:40 AM CDT INR, POCT, B Routine 02/23/2019 3:48 PM CDT ECG Routine 02/20/2019 11:09 AM CDT Fibrillation Atrial (HCC) INR, POCT, B Routine 02/16/2019 2:09 PM CDT INR, POCT, B Routine 01/05/2019 1:01 PM LEADERSHIP INTERN MS ARTHCS ASP/INJ MJR JT W US Routine 12/21/2018 11:30 AM LEADERSHIP INTERN Rotator Cuff Disorder Right INR, POCT, B Routine 12/21/2018 11:15 AM LEADERSHIP INTERN INTERNAL MEDICINE IMAGE EXAM Routine 12/21/2018 11:10 AM LEADERSHIP INTERN DX SHOULDER RIGHT 2+ VIEWS RAD - Routine (most inpatients and all outpatients) 12/02/2018 11:53 AM LEADERSHIP INTERN Rotator Cuff Disorder Right DX KNEE RIGHT WITH FLEXION AND PATELLA 4 VIEWS RAD - Routine (most inpatients and all outpatients) 12/02/2018 11:53 AM LEADERSHIP INTERN Primary Osteoarthritis Knee Right INR, POCT, B Routine 12/01/2018 9:25 AM LEADERSHIP INTERN INR, POCT, B Routine 11/17/2018 11:09 AM LEADERSHIP INTERN INR, POCT, B Routine 11/03/2018 2:12 PM LEADERSHIP INTERN ECG Routine 10/31/2018 10:24 AM LEADERSHIP INTERN Fibrillation Atrial (HCC) CREATININE WITH EGFR, S/P Routine 10/31/2018 10:05 AM LEADERSHIP INTERN Fibrillation Atrial (HCC) SODIUM, S/P Routine 10/31/2018 10:05 AM LEADERSHIP INTERN Fibrillation Atrial (HCC) POTASSIUM, S/P Routine 10/31/2018 10:05 AM LEADERSHIP INTERN Fibrillation Atrial (HCC) INR, POCT, B Routine 10/27/2018 9:29 AM LEADERSHIP INTERN INR, POCT, B Routine 10/20/2018 11:06 AM LEADERSHIP INTERN PROTHROMBIN TIME (PT), P Routine 10/07/2018 11:38 AM LEADERSHIP INTERN INR, POCT, B Routine 09/28/2018 11:13 AM LEADERSHIP INTERN INR, POCT, B Routine 09/22/2018 1:13 PM LEADERSHIP INTERN PROTHROMBIN TIME (PT), P Routine 09/19/2018 9:55 AM LEADERSHIP INTERN Fibrillation Atrial (HCC) Monitoring For Therapeutic Drug Therapy Assisted Anticoagulant Treatment Anticoagulant Therapy Thrombosis Deep Vein [...] POCT, B Routine 07/07/2018 10:20 AM CDT MS ARTHCS ASP/INJ MJR JT WO US Routine [...] TIME (PT), P Routine 01/10/2018 9:04 AM LEADERSHIP INTERN Anticoagulant Therapy Monitoring For Therapeutic Drug Therapy Fibrillation Atrial (HCC) INR, POCT, B Routine 01/06/2018 9:10 AM LEADERSHIP INTERN DX CHEST AP OR PA AND LATERAL 2 VIEWS RAD - Routine (most inpatients and all outpatients) 12/23/2017 10:54 AM LEADERSHIP INTERN Cough Fatigue THYROID-STIMULATING HORMONE-SENSITIVE (S-TSH) Routine 12/23/2017 9:33 AM LEADERSHIP INTERN Cough Fatigue C-REACTIVE PROTEIN, HIGH SENSITIVITY, S/P Routine 12/23/2017 9:33 AM LEADERSHIP INTERN Cough Fatigue FERRITIN, S Routine 12/23/2017 9:33 AM LEADERSHIP INTERN Cough Fatigue COMPREHENSIVE METABOLIC PANEL, S/P Routine 12/23/2017 9:33 AM LEADERSHIP INTERN Cough Fatigue CBC WITH DIFFERENTIAL, B Routine 12/23/2017 9:33 AM LEADERSHIP INTERN Cough Fatigue INR, POCT, B Routine 11/25/2017 8:57 AM LEADERSHIP INTERN PROTHROMBIN TIME (PT), P Routine 10/28/2017 9:12 AM LEADERSHIP INTERN Anticoagulant Therapy Monitoring For Therapeutic Drug Therapy Fibrillation Atrial (HCC) PROTHROMBIN TIME (PT), P Routine 09/30/2017 11:00 AM LEADERSHIP INTERN Monitoring For Therapeutic Drug Therapy INR, POCT, [...] CDT PROTIME/INR POC-LAB Routine 01/07/2017 8:15 AM LEADERSHIP INTERN DX KNEE UNILATERAL 3 VIEWS Routine 01/06/2017 11:[address] MAXILLOFACIAL WITHOUT IV CONTRAST Routine 11/29/2016 2:57 PM LEADERSHIP INTERN CBC WITH DIFFERENTIAL, B Routine 11/29/2016 1:19 PM LEADERSHIP INTERN PROTHROMBIN TIME (PT), P Routine 11/29/2016 1:19 PM LEADERSHIP INTERN C-REACTIVE PROTEIN (CRP), S/P Routine 11/29/2016 1:19 PM LEADERSHIP INTERN BASIC METABOLIC PANEL, S/P Routine 11/29/2016 1:19 PM LEADERSHIP INTERN CARDIAC BIOMARKER PANEL, S Routine 11/29/2016 1:19 PM LEADERSHIP INTERN SEDIMENTATION RATE, B Routine 11/29/2016 1:19 PM LEADERSHIP INTERN ECG Routine 11/29/2016 12:25 PM LEADERSHIP INTERN PROTIME (PT/INR), POCT, B Routine 10/30/2016 10:05 AM LEADERSHIP INTERN PROTIME (PT/INR), POCT, B Routine 10/16/2016 9:11 AM LEADERSHIP INTERN FERRITIN, S Routine 10/13/2016 1:23 PM LEADERSHIP INTERN PROTIME/INR POC-LAB Routine 10/01/2016 9:41 AM LEADERSHIP INTERN PROTIME/INR POC-LAB Routine 09/15/2016 11:13 AM CDT [...] (PT/INR), POCT, B Routine 12/13/2015 8:08 AM LEADERSHIP INTERN PROTIME/INR POC-LAB Routine 12/10/2015 8:18 AM LEADERSHIP INTERN LIPID PANEL, S Routine 12/09/2015 8:15 AM LEADERSHIP INTERN THYROID FUNCTION CASCADE, S Routine 12/09/2015 8:15 AM LEADERSHIP INTERN PROTIME/INR POC-LAB Routine 11/26/2015 11:00 AM LEADERSHIP INTERN PROTIME (PT/INR), POCT, B Routine 10/11/2015 8:13 AM LEADERSHIP INTERN PROTIME/INR POC-LAB Routine 09/17/2015 9:50 AM LEADERSHIP INTERN PROTIME/INR POC-LAB Routine 08/20/2015 10:25 AM CDT [...] (PT/INR), POCT, B Routine 12/07/2014 3:29 PM LEADERSHIP INTERN PROTIME/INR POC-LAB Routine 12/04/2014 9:49 AM LEADERSHIP INTERN PROTHROMBIN TIME (PT), P Routine 12/03/2014 9:10 AM LEADERSHIP INTERN PROTHROMBIN TIME (PT), P Routine 12/02/2014 8:58 AM LEADERSHIP INTERN PROTHROMBIN TIME (PT), P Routine 12/01/2014 9:42 AM LEADERSHIP INTERN DX CHEST AP OR PA AND LATERAL 2 VIEWS Routine 12/01/2014 7:24 AM LEADERSHIP INTERN CBC WITHOUT DIFFERENTIAL, B Routine 12/01/2014 5:16 AM LEADERSHIP INTERN ELECTROLYTE (CHEM 4) PANEL, S/P Routine 12/01/2014 5:16 AM LEADERSHIP INTERN CBC WITHOUT DIFFERENTIAL, B Routine 12/01/2014 5:16 AM LEADERSHIP INTERN ECG Routine 12/01/2014 5:15 AM LEADERSHIP INTERN ACT, POCT, B Routine 11/30/2014 4:19 PM LEADERSHIP INTERN ACT, POCT, B Routine 11/30/2014 2:45 PM LEADERSHIP INTERN PROTHROMBIN TIME (PT), P Routine 11/30/2014 1:47 PM LEADERSHIP INTERN ACT, POCT, B Routine 11/30/2014 1:04 PM LEADERSHIP INTERN ACT, POCT, B Routine 11/30/2014 12:30 PM LEADERSHIP INTERN ACT, POCT, B Routine 11/30/2014 12:01 PM LEADERSHIP INTERN ACT, POCT, B Routine 11/30/2014 11:37 AM LEADERSHIP INTERN ACT, POCT, B Routine 11/30/2014 11:17 AM LEADERSHIP INTERN ACT, POCT, B Routine 11/30/2014 10:57 AM LEADERSHIP INTERN ACT, POCT, B Routine 11/30/2014 10:23 AM LEADERSHIP INTERN ACT, POCT, B Routine 11/30/2014 9:57 AM LEADERSHIP INTERN HEART RHYTHM PROCEDURE - ABLATION Routine 11/30/2014 7:59 AM LEADERSHIP INTERN PROTHROMBIN TIME (PT), P Routine 11/30/2014 6:58 AM LEADERSHIP INTERN ECHOCARDIOLOGY IMAGE EXAM Routine 11/29/2014 12:25 PM LEADERSHIP INTERN ECHO TRANSESOPHAGEAL (THU) Routine 11/29/2014 12:20 PM LEADERSHIP INTERN ECG Routine 11/29/2014 9:36 AM LEADERSHIP INTERN ANTIBODY SCREEN, B Routine 11/29/2014 8:25 AM LEADERSHIP INTERN ABORH, RBC Routine 11/29/2014 8:25 AM LEADERSHIP INTERN CBC WITH DIFFERENTIAL, B Routine 11/29/2014 7:47 AM LEADERSHIP INTERN THYROID FUNCTION CASCADE, S Routine 11/29/2014 7:47 AM LEADERSHIP INTERN PROTHROMBIN TIME (PT), P Routine 11/29/2014 7:47 AM LEADERSHIP INTERN POTASSIUM, S/P Routine 11/29/2014 7:47 AM LEADERSHIP INTERN ALANINE AMINOTRANSFERASE (ALT), S/P Routine 11/29/2014 7:47 AM LEADERSHIP INTERN CREATININE WITH EGFR, S/P Routine 11/29/2014 7:47 AM LEADERSHIP INTERN SODIUM, S/P Routine 11/29/2014 7:47 AM LEADERSHIP INTERN THYROPEROXIDASE (TPO) ABS, S Routine 11/29/2014 7:47 AM LEADERSHIP INTERN T4 (THYROXINE), FREE, S Routine 11/29/2014 7:47 AM LEADERSHIP INTERN PROTIME/INR POC-LAB Routine 11/27/2014 10:27 AM LEADERSHIP INTERN PROTIME (PT/INR), POCT, B Routine 11/16/2014 4:13 PM LEADERSHIP INTERN ECG Routine 11/13/2014 1:02 PM LEADERSHIP INTERN PROTIME/INR POC-LAB Routine 11/13/2014 11:11 AM LEADERSHIP INTERN ECG HEART RHYTHM MONITOR (HOLTER) Routine 11/05/2014 8:23 AM LEADERSHIP INTERN ECG HEART RHYTHM MONITOR (HOLTER) Routine 10/23/2014 8:04 PM LEADERSHIP INTERN US LOWER EXTREMITY VEINS Routine 10/23/2014 5:51 PM LEADERSHIP INTERN BASIC METABOLIC PANEL, S/P Routine 10/23/2014 4:11 PM LEADERSHIP INTERN ACTIVATED PARTIAL THROMBOPLASTIN TIME (APTT), P Routine 10/23/2014 4:11 PM LEADERSHIP INTERN CBC WITHOUT DIFFERENTIAL, B Routine 10/23/2014 4:11 PM LEADERSHIP INTERN PROTHROMBIN TIME (PT), P Routine 10/23/2014 4:11 PM LEADERSHIP INTERN ECG Routine 10/23/2014 3:51 PM LEADERSHIP INTERN PROTIME/INR POC-LAB Routine 10/17/2014 9:25 AM LEADERSHIP INTERN THYROID FUNCTION CASCADE, S Routine 10/17/2014 9:25 AM LEADERSHIP INTERN RAPID STREP A SCREEN Routine 10/17/2014 8:52 AM LEADERSHIP INTERN DX CHEST AP OR PA AND LATERAL 2 VIEWS Routine 10/08/2014 11:42 AM LEADERSHIP INTERN AUTOMATED DIFFERENTIAL, B Routine 10/08/2014 11:21 AM LEADERSHIP INTERN CBC WITH DIFFERENTIAL, B Routine 10/08/2014 11:21 AM LEADERSHIP INTERN PROTIME/INR POC-LAB Routine 10/02/2014 9:46 AM LEADERSHIP INTERN ECG Routine 09/27/2014 9:10 AM LEADERSHIP INTERN PROTIME/INR POC-LAB Routine 09/18/2014 10:42 AM LEADERSHIP INTERN PROTIME (PT/INR), POCT, B Routine 08/20/2014 4:26 [...] US ABDOMEN COMPLETE Routine 01/16/2014 11:00 AM LEADERSHIP INTERN DX CHEST AP OR PA AND LATERAL 2 VIEWS Routine 01/16/2014 9:08 AM LEADERSHIP INTERN DX CHEST PORTABLE 1 VIEW Routine 12/26/2013 [...] MST PROTIME/INR POC-LAB Routine 12/12/2013 10:13 AM LEADERSHIP INTERN PROTIME/INR POC-LAB Routine 11/28/2013 8:55 AM LEADERSHIP INTERN DX CHEST AP OR PA AND LATERAL 2 VIEWS Routine 11/25/2013 7:28 AM LEADERSHIP INTERN ECG Routine 11/25/2013 5:35 AM LEADERSHIP INTERN ELECTROLYTE (CHEM 4) PANEL, S/P Routine 11/25/2013 4:37 AM LEADERSHIP INTERN PROTHROMBIN TIME (PT), P Routine 11/25/2013 4:37 AM LEADERSHIP INTERN CBC WITHOUT DIFFERENTIAL, B Routine 11/25/2013 4:37 AM LEADERSHIP INTERN ACT, POCT, B Routine 11/24/2013 2:01 PM LEADERSHIP INTERN ACT, POCT, B Routine 11/24/2013 1:44 PM LEADERSHIP INTERN ACT, POCT, B Routine 11/24/2013 1:11 PM LEADERSHIP INTERN ACT, POCT, B Routine 11/24/2013 12:34 PM LEADERSHIP INTERN ACT, POCT, B Routine 11/24/2013 11:57 AM LEADERSHIP INTERN ACT, POCT, B Routine 11/24/2013 11:23 AM LEADERSHIP INTERN ACT, POCT, B Routine 11/24/2013 10:59 AM LEADERSHIP INTERN ACT, POCT, B Routine 11/24/2013 10:27 AM LEADERSHIP INTERN ACT, POCT, B Routine 11/24/2013 9:57 AM LEADERSHIP INTERN CARDIOLOGY IMAGE EXAM Routine 11/24/2013 9:02 AM LEADERSHIP INTERN HEART RHYTHM PROCEDURE - ABLATION Routine 11/24/2013 7:47 AM LEADERSHIP INTERN PROTHROMBIN TIME (PT), P Routine 11/24/2013 6:45 AM LEADERSHIP INTERN ECHOCARDIOLOGY IMAGE EXAM Routine 11/23/2013 1:22 PM LEADERSHIP INTERN ECHO TRANSESOPHAGEAL (THU) Routine 11/23/2013 1:21 PM LEADERSHIP INTERN ECG Routine 11/23/2013 11:01 AM LEADERSHIP INTERN ECHO TRANSTHORACIC (TTE) Routine 11/23/2013 9:23 AM LEADERSHIP INTERN ECHOCARDIOLOGY IMAGE EXAM Routine 11/23/2013 9:19 AM LEADERSHIP INTERN ANTIBODY SCREEN, B Routine 11/23/2013 9:14 AM LEADERSHIP INTERN ABORH, RBC Routine 11/23/2013 9:14 AM LEADERSHIP INTERN CBC WITH DIFFERENTIAL, B Routine 11/23/2013 8:35 AM LEADERSHIP INTERN POTASSIUM, S/P Routine 11/23/2013 8:35 AM LEADERSHIP INTERN THYROID FUNCTION CASCADE, S Routine 11/23/2013 8:35 AM LEADERSHIP INTERN SODIUM, S/P Routine 11/23/2013 8:35 AM LEADERSHIP INTERN ALANINE AMINOTRANSFERASE (ALT), S/P Routine 11/23/2013 8:35 AM LEADERSHIP INTERN PROTHROMBIN TIME (PT), P Routine 11/23/2013 8:35 AM LEADERSHIP INTERN CREATININE WITH EGFR, S/P Routine 11/23/2013 8:35 AM LEADERSHIP INTERN PROTIME/INR POC-LAB Routine 10/24/2013 2:04 PM LEADERSHIP INTERN INR, POCT, B Routine 10/24/2013 10:25 AM LEADERSHIP INTERN PUL HOME OVERNIGHT OXIMETRY Routine 10/19/2013 3:16 PM LEADERSHIP INTERN INR, POCT, B Routine 10/05/2013 1:33 PM LEADERSHIP INTERN PROTIME/INR POC-LAB Routine 09/18/2013 10:41 AM LEADERSHIP [employer] INR, POCT, B Routine 09/15/2013 8:05 AM [...] CDT PROTIME/INR POC-LAB Routine 01/17/2013 9:30 AM [employer] DX PELVIS 1-2 VIEWS Routine 01/12/2013 10:35 AM [employer] CYCLIC CITRULLINATED PEPTIDE ABS, IGG, S Routine 01/05/2013 1:56 PM [employer] AB TO EXTRACTABLE NUCLEAR AG EVAL, S Routine 01/05/2013 1:56 PM [employer] THYROID-STIMULATING HORMONE-SENSITIVE (S-TSH) Routine 01/05/2013 1:56 PM [employer] CREATINE KINASE (CK), S Routine 01/05/2013 1:56 PM [employer] SEDIMENTATION RATE, B Routine 01/05/2013 1:56 PM [employer] PROTHROMBIN TIME (PT), P Routine 12/23/2012 11:03 AM [employer] PHYSICAL MEDICINE AND REHAB IMAGE EXAM Routine 12/23/2012 8:22 AM [employer] MR PELVIS WITHOUT IV CONTRAST Routine 12/20/2012 4:22 PM [employer] DX SACROILIAC JOINTS 3+ VIEWS Routine 12/20/2012 12:19 PM [employer] INR, POCT, B Routine 12/16/2012 10:[address] ABDOMEN PELVIS WITHOUT IV CONTRAST Routine 10/24/2012 8:57 PM [employer] ELECTROLYTE (CHEM 4) PANEL, S/P Routine 10/24/2012 8:00 PM [employer] CBC WITH DIFFERENTIAL, B Routine 10/24/2012 8:00 PM [employer] FL ESOPHAGRAM SINGLE CONTRAST Routine 10/11/2012 1:23 PM [employer] INR, POCT, B Routine 10/04/2012 8:06 AM [employer] INR, POCT, B Routine 09/22/2012 9:41 AM [employer] CBC WITH DIFFERENTIAL, B Routine 09/21/2012 4:37 PM [employer] PROTHROMBIN TIME (PT), P Routine 09/21/2012 4:37 PM [employer] CREATININE WITH EGFR, S/P Routine 09/21/2012 4:37 PM [employer] DX KNEE UNILATERAL 3 VIEWS Routine 09/12/2012 [...] CDT PROTIME/INR POC-LAB Routine 01/22/2012 9:51 AM [employer] DX CLAVICLE SERENDIPITY 1 VIEW Routine 12/27/2011 7:16 PM [employer] DX CLAVICLE UNILATERAL Routine 2 2:53 PM [employer] DX CHEST AP OR PA AND LATERAL 2 VIEWS Routine 12/27/2011 2:43 PM [employer] PROTIME/INR POC-LAB Routine 12/21/2011 8:17 AM [employer] OUTSIDE DX SKELETAL Routine 12/16/2011 1:44 AM [employer] OUTSIDE DX SKELETAL Routine 12/16/2011 1:44 AM [employer] OUTSIDE DX CHEST Routine 12/16/2011 1:44 AM [employer] PROTIME/INR POC-LAB Routine 12/09/2011 9:34 AM [employer] DX HIP TO ANKLE STANDING Routine 12/08/2011 1:15 PM LEADERSHIP INTERN DX KNEE UNILATERAL 2 VIEWS Routine 12/08/2011 1:14 PM LEADERSHIP INTERN PROTIME/INR POC-LAB Routine 11/24/2011 8:31 AM LEADERSHIP INTERN DX CHEST AP OR PA AND LATERAL 2 VIEWS Routine 09/25/2011 5:43 PM LEADERSHIP INTERN NM LUNG VENTILATION AND PERFUSION Routine 09/25/2011 5:24 PM LEADERSHIP INTERN ECG Routine 09/25/2011 10:[address] ABDOMEN PELVIS WITHOUT IV CONTRAST Routine 09/25/2011 8:52 AM LEADERSHIP INTERN DX CHEST AP OR PA AND LATERAL 2 VIEWS Routine 09/22/2011 1:26 PM LEADERSHIP INTERN ECG Routine 09/21/2011 7:07 PM LEADERSHIP INTERN ECHOCARDIOLOGY IMAGE EXAM Routine 09/21/2011 2:26 PM LEADERSHIP INTERN ECHOCARDIOGRAM Routine 09/21/2011 2:05 PM LEADERSHIP INTERN ECG Routine 09/21/2011 10:30 AM LEADERSHIP INTERN DX WRIST 2 VIEWS Routine 09/21/2011 5:32 AM LEADERSHIP INTERN DX CHEST AP OR PA AND LATERAL 2 VIEWS Routine 09/21/2011 5:32 AM LEADERSHIP INTERN DX KNEE UNILATERAL 2 VIEWS Routine 09/21/2011 5:32 AM LEADERSHIP INTERN DX CHEST AP OR PA AND LATERAL [...] UNILATERAL 2 VIEWS Routine 12/04/2009 9:54 AM LEADERSHIP INTERN DX FOOT UNILATERAL 3+ VIEWS Routine 11/04/2009 11:52 AM LEADERSHIP INTERN HXGENERAL PATHOLOGY REPORT Routine 10/08/2009 8:32 AM LEADERSHIP INTERN BI BREAST SCREENING UNILATERAL Routine 09/04/2009 10:06 AM CDT US ASPIRATION INJECTION JOINT Routine 06/12/2009 2:53 PM CDT US NON VASCULAR EXTREMITY Routine 06/12/2009 2:24 PM CDT DX FOOT UNILATERAL 3+ VIEWS Routine 06/11/2009 2:15 PM CDT RADIOLOGY IMAGE EXAM Routine 04/22/2009 9:30 AM CDT DX FOOT RIGHT 3+ VIEWS Routine 9:27 AM CDT BI ULTRASOUND EXAM Routine 07/12/2008 11:49 AM CDT BI BREAST DIAGNOSTIC Routine 07/12/2008 10:[address] HEAD WITHOUT IV CONTRAST Routine 07/10/2008 12:49 PM CDT BI BREAST SCREENING UNILATERAL Routine 07/10/2008 12:09 PM CDT POLYSOMNOGRAPHY Routine 11/20/2007 10:38 PM LEADERSHIP INTERN ECHOCARDIOLOGY IMAGE EXAM Routine 11/16/2007 12:36 PM LEADERSHIP INTERN ECHOCARDIOGRAM Routine 11/16/2007 12:32 PM LEADERSHIP INTERN PUL HOME OVERNIGHT OXIMETRY Routine 11/15/2007 10:45 PM LEADERSHIP INTERN ECG Routine 11/15/2007 6:31 PM LEADERSHIP INTERN DX CHEST AP OR PA AND LATERAL 2 VIEWS Routine 11/15/2007 1:53 PM LEADERSHIP INTERN ECG Routine 11/15/2007 12:41 PM LEADERSHIP INTERN BI BREAST SCREENING UNILATERAL Routine 06/29/2007 2:35 PM CDT US EXTREMITY VEINS Routine 04/08/2007 10:47 AM CDT FL ESOPHAGRAM SINGLE CONTRAST Routine 03/14/2007 9:02 AM CDT FL SWALLOW FUNCTION AND ESOPHAGRAM WITH VIDEO Routine 03/14/2007 9:02 AM CDT PULMONARY FUNCTION TESTS Routine 03/08/2007 2:55 PM CDT DX CHEST AP OR PA AND LATERAL 2 VIEWS Routine 12/21/2006 11:47 AM LEADERSHIP INTERN DX ABDOMEN 1 VIEW Routine 12/21/2006 11:47 AM LEADERSHIP INTERN ANTIBODY SCREEN, B Routine 07/13/2006 11:29 AM [...] UNILATERAL 3 VIEWS Routine 12/30/2004 10:41 AM LEADERSHIP INTERN MR LOWER EXTREMITY Routine 08/12/2004 4:31 PM [...] US EXTREMITY VEINS Routine 11/16/2003 1:14 PM LEADERSHIP INTERN PULMONARY FUNCTION TESTS Routine 01/18/2003 4:[address] CHEST WITHOUT IV CONTRAST Routine 01/18/2003 1:03 PM LEADERSHIP INTERN BI BREAST SCREENING UNILATERAL Routine 01/18/2003 11:28 AM LEADERSHIP INTERN PULMONARY FUNCTION TESTS Routine 01/18/2003 7:21 AM LEADERSHIP INTERN DX CHEST AP OR PA AND LATERAL 2 VIEWS Routine 01/15/2003 3:00 PM LEADERSHIP INTERN DX CHEST AP OR PA AND LATERAL 2 VIEWS Routine 08/19/2002 2:00 PM CDT BI BREAST SCREENING UNILATERAL Routine 12/16/2001 8:39 AM LEADERSHIP INTERN CYTOLOGY Routine 12/06/2001 3:41 PM LEADERSHIP INTERN US EXTREMITY VEINS Routine 10/26/2001 11:03 PM LEADERSHIP INTERN MR LUMBAR SPINE WITHOUT IV CONTRAST Routine 10/24/2001 8:26 AM LEADERSHIP INTERN DX LUMBAR SPINE 4+ VIEWS Routine 07/06/2001 1:[address] HEAD WITHOUT IV CONTRAST Routine 06/15/2001 9:35 AM CDT BI BREAST SCREENING UNILATERAL Routine 11/26/2000 11:35 AM LEADERSHIP INTERN HXGENERAL PATHOLOGY REPORT Routine 12/02/1999 9:19 AM LEADERSHIP INTERN HXSTAN SURG BLD ORDER Routine 12/02/1999 6:40 AM LEADERSHIP INTERN ABORH, RBC Routine 12/02/1999 6:40 AM LEADERSHIP INTERN ECG Routine 11/05/1999 4:13 PM LEADERSHIP INTERN US PELVIS TRANSVAGINAL AND TRANSABDOMINAL Routine 10/24/1999 2:38 PM LEADERSHIP INTERN CYTOLOGY Routine 10/21/1999 2:00 PM LEADERSHIP INTERN BI BREAST SCREENING BILATERAL Routine 04/01/1999 4:16 PM CDT CYTOLOGY Routine 01/07/1996 6:58 PM LEADERSHIP INTERN ECG Routine 01/07/1996 11:07 AM LEADERSHIP INTERN DERMATOPATHOLOGY Routine 10/29/1995 1:37 PM LEADERSHIP INTERN ECG Routine 03/31/1994 11:52 AM CDT Results * Prothrombin Time (PT) (08/28/2024) Only the most recent of182 resultswithin the time period is included. EXT INR 2.70 PATIENT PO INT OF CARE DEVICE Blood (Blood, Venous) 08/28/2024 Narrative Resulting Agency Comment Home INR us Historical Provider LAB BLOOD ADD-ON Final Resul t PATIENT POINT OF CARE DEVICE * HOLTER MONITOR - IN CLINIC STOVE CLEANER (07/12/2024 11:16 AM CDT) Only the most [...] Duration 0 duration INFOBION IC MOME AF [place] 0 percent INFOBIONIC MOME Symptom Count 0 [...] complexes. 4. No symptomatic events were noted. Laborer [place]: Rayne Casillas, CCT / Rosalba Gomez, CCT [...] complexes. 4. No symptomatic events were noted. Laborer [place]: Rayne Casillas, CCT / Rosalba Gomez, CCT Ap Buckley M.D., Ph.D. CV CARDIAC SERVICES PROCEDURES Final Result INFOBIONIC ANSHUL NA * ECG 12 Lead (07/11/2024 2:27 PM CDT) Only the most recent of76 resultswithin the time period is included. Ventricular Rate ECG/Min 54 BPM MUSE MS Interval 196 ms MUSE QRSD Interval 86 ms MUSE QT Interval 464 ms MUSE QTC Interval 440 ms MUSE P Sylvester 20 degrees MUSE R Sylvester 21 degrees MUSE T Wave Sylvester 33 degrees MUSE 07/11/2024 2:27 PM CDT 07/11/2024 4:24 PM CDT Impressions MUSE - 07/11/2024 2:29 PM CDT Sinus bradycardia Low anterior forces slight ST-elevation anterior leads, consider early repolarization or pericarditis When compared with ECG of 27-Apr-2024 08:55, MS interval has decreased Slight ST-elevation now present Revised Report Narrative Procedure Note Freeman Davis Jr., M.D. - 07/11/2024 IMPRESSION: Sinus bradycardia Low anterior forces slight ST-elevation anterior leads, consider early repolarization orpericarditis When compared with ECG of 27-Apr-2024 08:55, MS interval has decreased Slight ST-elevation now present Revised Report us Ap Buckley M.D., Ph.D. ECG ORDERABLES Edit ed Result - Final MUSE NA * (TTE) 2D ECHO DOPPLER [...] was performed but not reported based on ibm mainframe systems programmer's judgment. Estimated right ventricular systolic pressure 30 [...] assessmentwas performed but not reported based on ibm mainframe systems programmer's judgment. Estimatedright ventricular systolic pressure 30 mmHg [...] the complete report, see the Order-Level Documents. us Hugo Sanchez M.D. CV ECHO PROCEDURES Final Resul t * DX Chest AP or PA and [...] deformity rightshoulder. No significant change since 11/12/2022. us Hugo Sanchez M.D. IM DIAGNOSTIC IMAGING PROCEDU RES Final Result * (ABNORMAL) Lipid Panel (04/27/2024 8:42 AM [...] 8:42 AM CDT 04/27/2024 9:24 AM CDT us Hugo Sanchez M.D. LAB BLOOD ADD-ON Final Result Performing Organization Address City/[facility]/ZIP Co de Phone Number [facility] [address] [place] [address], [address] [address] * NT-Pro B-Type Natriuretic Peptide (BNP) (04/27/2024 [...] 8:42 AM CDT 04/27/2024 9:24 AM CDT us Hugo Sanchez M.D. LAB BLOOD ADD-ON Final Result Performing Organization Address City/[facility] Co de Phone Number [facility] [address] [place] [address], [facility] [address] [place] [address] * CBC with Differential, Blood (04/27/2024 8:42 [...] - 6.45 x10(9)/L 04/27/2024 9:33 AM CDT [facility] Lymphocytes 2.23 0.95 - 3.07 x10(9)/L 04/27/2024 9:33 AM CDT DTL Monocytes 0.53 0.26 - 0.81 x10(9)/L 04/27/2024 9:33 AM CDT DTL Eosinophils 0.21 0.03 - 0.48 x10(9)/L 04/27/2024 9:33 AM CDT DTL Basophils 0.06 0.01 - 0.08 x10(9)/L 04/27/2024 9:33 AM CDT DTL Blood (Blood, Venous) 04/27/2024 8:42 AM CDT 04/27/2024 9:08 AM CDT Hugo Sanchez M.D. LAB BLOOD ADD-ON Final Result [facility] [address] [place] [address], [facility] DTL [facility] [address] [place] [address] [facility] [address] [place] [address] * BUN (Blood Urea Nitrogen) (04/27/2024 8:42 AM CDT) Only the most recent of2 resultswithin the time period is included. BUN (Blood Urea Nitrogen), S 19 6 - 21 mg/dL 04/27/2024 10:16 AM CDT DT Blood (Blood, Venous) 04/27/2024 8:42 AM CDT 04/27/2024 9:24 AM CDT us Hugo Sanchez M.D. LAB BLOOD ADD-ON Final Result Performing Organization Address City/[facility]/ZIP Co de Phone Number [facility] [address] [place] [address] * AST (Aspartate Aminotransferase) (04/27/2024 8:42 AM CDT) Only the most recent of4 resultswithin the time period is included. Aspartate Aminotransferase (AST), S 18 8 - 43 U/L 04/27/2024 10:16 AM CDT DT Blood (Blood, Venous) 04/27/2024 8:42 AM CDT 04/27/2024 9:24 AM CDT Result Fredy Sanchez M.D. LAB BLOOD ADD-ON Final Result Performing Organization Address [facility] de Phone Number [facility] [address] [place] [address] * (ABNORMAL) S-TSH (Thyroid-Stimulating Hormone - Sensitive) (04/27/2024 8:42 AM CDT) Only the most recent of6 resultswithin the time period is included. TSH, Sensitive 4.9(H) 0.3 - 4.2 mIU/L 04/27/2024 10:16 AM CDT DT Blood (Blood, Venous) 04/27/2024 8:42 AM CDT 04/27/2024 9:24 AM CDT us Hugo Sanchez M.D. LAB BLOOD ADD-ON Final Result Performing Organization Address City/[facility]/ZIP Co de Phone Number [facility] [address] [place], [place] [address] [place] [address] [address] [place] [address] * Sodium (04/27/2024 8:42 AM CDT) Only the most recent of10 resultswithin the time period is included. Sodium, S 141 135 - 145 mmol/L 04/27/2024 10:16 AM CDT DT Blood (Blood, Venous) 04/27/2024 8:42 AM CDT 04/27/2024 9:24 AM CDT Hugo Sanchez M.D. LAB BLOOD ADD-ON Final Result Performing Organization Address City/[facility]/ZIP Co de Phone Number [facility] [address] [place] [address] * Potassium (04/27/2024 8:42 AM CDT) Only the most recent of19 resultswithin the time period is included. Potassium, S 4.4 3.6 - 5.2 mmol/L 04/27/2024 10:16 AM CDT DT Blood (Blood, Venous) 04/27/2024 8:42 AM CDT 04/27/2024 9:24 AM CDT Ap Buckley M.D., Ph.D. LAB BLOOD ADD-ON Fin al Result Performing Organization Address City/[facility]/ZIP Co de Phone Number [facility] [address] [place], [place] [id number] [place] [address] [address] [place] [address] * Glucose, Fasting (04/27/2024 8:42 AM CDT) Only the most recent of4 resultswithin the time period is included. Glucose, P 92 70 - 100 mg/dL 04/27/2024 9:59 AM CDT DTL Last Intake 15 hr 04/27/2024 9:22 AM CDT DTL Blood (Blood, Venous) 04/27/2024 8:42 AM CDT 04/27/2024 9:22 AM CDT us Hugo Sanchez M.D. LAB BLOOD NON ADD-ON Final Res ult Performing Organization Address [facility] de Phone Number [facility] [address] [place] [address], [facility] [address] [place] [address] * (ABNORMAL) Creatinine with Estimated GFR (04/27/2024 [...] CDT Ap Buckley M.D., Ph.D. LAB BLOOD ADD-ON Fin al Result Performing Organization Address [facility] de Phone Number [facility] [address] [place] [address], [facility] [address] [place] [address] * Bicarbonate (04/27/2024 8:42 AM CDT) Bicarbonate, S 26 22 - 29 mmol/L 04/27/2024 10:16 AM CDT DTL Blood (Blood, Venous) 04/27/2024 8:42 AM CDT 04/27/2024 9:24 AM CDT us uHgo Sanchez M.D. LAB BLOOD ADD-ON Final Result [facility] [address] [place] [address], [facility] [address] [place] [address] * T4 (Thyroxine), Free, Serum (04/27/2024 8:37 AM CDT) T4 (Thyroxine), Free, S 1.2 0.9 - 1.7 ng/dL 04/28/2024 10:55 AM CDT DT Blood 04/27/2024 8:37 AM CDT 04/28/2024 9:54 AM CDT us Hugo Sanchez M.D. LAB BLOOD ADD-ON Final Result Performing Organization Address [facility]/ZIP Co de Phone Number [facility] [address] [place] [address], [facility] [address] [place] [address] * (ABNORMAL) Thyroid Function [place] (04/27/2024 8:37 AM CDT) Only the most recent of8 resultswithin the time period is included. TSH, Sensitive 4.9(H) 0.3 - 4.2 mIU/L 04/28/2024 10:35 AM CDT [facility] Blood (Blood, Venous) 04/27/2024 8:37 AM CDT 04/28/2024 9:54 AM CDT us Hugo Sanchez M.D. LAB BLOOD ADD-ON Final Result Performing Organization Address City/[facility]/ZIP Co de Phone Number [facility] [address] [place] [address], [facility] [address] [place] [address] * Thyroperoxidase (TPO) Antibodies (04/27/2024 8:37 AM CDT) Only the most recent of2 resultswithin the time period is included. Thyroperoxidase Ab, S <15.0 <34.0 IU/mL 04/28/2024 10:55 AM CDT DTL Blood 04/27/2024 8:37 AM CDT 04/28/2024 9:54 AM CDT us Hugo Sanchez M.D. LAB BLOOD ADD-ON Final Result Performing Organization Address [facility] Co de Phone Number [facility] [address] [place] [address], [facility] [address] [place] [address] * INR Reflex, POCT, Blood (03/29/2024 2:26 PM CDT) Only the most recent of5 resultswithin the time period is included. INR Reflex, POCT, B 3.3 03/29/2024 2:25 PM CDT [id number] Comment: ----ADDITIONAL INFORMATION---- Standard intensity warfarin therapeutic range: 2.0 to 3.0 ?? High intensity warfarin therapeutic range: 2.5 to 3.5 Blood (Blood, Capillary) 03/29/2024 2:26 PM CDT 03/29/2024 2:25 PM CDT us Emilia Lincoln M.D. LAB POCT ORDERABLES - KARLI CE Final Result Performing Organization Address [facility] Co de Phone Number [facility] [address] [place] [address], [facility] FB60 [facility] [place] [address] [place] [address] * INR, POCT (Manual) (12/13/2023) INR, POCT 3.40 PATIENT PO INT OF CARE DEVICE Blood (Blood, Venous) 12/13/2023 Narrative Resulting Agency Comment HM us Emilia Lincoln M.D. LAB POCT ORDERABLES-MANUAL Final Result Performing Organization Address City/[facility] de Phone Number PATIENT POINT OF CARE DEVICE * Home sleep apnea test (HSAT) (11/25/2023 10:32 AM LEADERSHIP INTERN) Narrative ONBASE - 12/08/2023 10:21 AM LEADERSHIP INTERN SUMMARY: Home sleep apnea test was performed [...] mild sleep apnea. [facility] ORDERABLES Final Re sult Performing Organization Address [facility] Co de Phone Number ONBASE NA * Renal Function Panel (11/10/2023 9:51 AM LEADERSHIP INTERN) Potassium, P 4.1 3.6 - 5.2 mmol/L 11/10/2023 11:02 AM LEADERSHIP INTERN OWAT Sodium, P 143 135 - 145 mmol/L 11/10/2023 11:02 AM LEADERSHIP INTERN OWAT Chloride, P 107 98 - 107 mmol/L 11/10/2023 11:02 AM LEADERSHIP INTERN OWAT Bicarbonate, P 26 22 - 29 mmol/L 11/10/2023 11:01 AM LEADERSHIP INTERN OWAT Anion Gap, P 10 7 - 15 11/10/2023 11:02 AM LEADERSHIP INTERN OWAT BUN (Blood Urea Nitrogen), P 18 6 - 21 mg/dL 11/10/2023 11:01 AM LEADERSHIP INTERN OWAT Creatinine 0.94 0.59 - 1.04 mg/dL 11/10/2023 11:01 AM LEADERSHIP INTERN OWAT Estimated GFR (eGFR) 63 >=60 mL/min/BSA 11/10/2023 11:01 AM LEADERSHIP INTERN OWAT Comment: Estimated GFR calculated using the 2020 CKD_EPI creatinine equation. Calcium, Total, P 9.8 8.8 - 10.2 mg/dL 11/10/2023 11:01 AM LEADERSHIP INTERN OWAT Glucose, P 124 70 - 140 mg/dL 11/10/2023 11:01 AM LEADERSHIP INTERN OWAT Albumin, P 4.1 3.5 - 5.0 g/dL 11/10/2023 11:01 AM LEADERSHIP INTERN OWAT Phosphorus (Inorganic), P 2.7 2.5 - 4.5 mg/dL 11/10/2023 10:28 PM LEADERSHIP INTERN AUST Blood (Blood, Venous) 11/10/2023 9:51 AM LEADERSHIP INTERN 11/10/2023 10:36 AM LEADERSHIP INTERN Narrative [facility] - 11/10/2023 10:28 PM LEADERSHIP INTERN Specimen Information: Specimen ID: [id number] Specimen Type: Blood Specimen Collection Start Date: 11/10/2023 ??9:51 AM Specimen Received Date: 11/10/2023 10:36 AM Specimen ID: [id number] Specimen Type: Blood Specimen Collection Start Date: 11/10/2023 ??9:51 AM Specimen Received Date: 11/10/2023 10:11 PM Fede Palacios M.D. LAB BLOOD ADD-ON Final Res ult [facility] [address] [place] [address], [facility] OWAT [facility] [place] [address] [place] [address] AUST [facility] [address] [place] [address] * 6 MINUTE WALK (11/03/2023 10:00 AM LEADERSHIP INTERN) Only the most recent of2 resultswithin the time period is included. Narrative Mary Vincent P.A.-C., M.S. - 11/03/2023 10:00 AM LEADERSHIP INTERN Mary Vincent P.A.-C., M.S. ? 11/03/2023 10:54 [...] Very, Very Severe Time of Test: ??09:10 LEADERSHIP INTERN Total Distance Walked (Feet): ??775 Total Distance Walked (Meters): ??236.22 Total # of Times Stopped: ??2 Time Stopped (Seconds): ??40 Time Walked (Seconds): ??320 CALCULATIONS Estimated MPH: ??1.7 Estimated METs: ??2.3 % of Predicted Distance: ??73.69 us Ap Buckley M.D., Ph.D. CV STRESS PROCEDURES Final Result * (TTE) 2D ECHO DOPPLER COLOR (11/01/2023 2:55 PM LEADERSHIP INTERN) [facility] Ejection Fraction 60 MC CV EIMS Mid-Ascending [...] Region Laterality Modality Echocardiography 11/01/2023 2:15 PM LEADERSHIP INTERN Impressions 11/01/2023 3:56 PM LEADERSHIP INTERN Anemia, thyrotoxicosis, or another high output state [...] the Order-Level Documents. Narrative 11/01/2023 3:56 PM LEADERSHIP INTERN For the complete report, see the Order-Level [...] the complete report, see the Order-Level Documents. us Ap Buckley M.D., Ph.D. CV ECHO PROCEDURES F inal Result * (ABNORMAL) Iron and Total Iron-Binding Capacity (11/01/2023 1:25 PM LEADERSHIP INTERN) Only the most recent of2 resultswithin the time period is included. Iron 24(L) 35 - 145 mcg/dL 11/03/2023 11:37 AM LEADERSHIP INTERN DTL Total Iron Binding Capacity 404(H) 250 - 400 mcg/dL 11/03/2023 11:37 AM LEADERSHIP INTERN DTL Percent Saturation 6(L) 14 - 50 % 11/03/2023 11:37 AM LEADERSHIP INTERN DTL Blood (Blood, Venous) 11/01/2023 1:25 PM LEADERSHIP INTERN 11/03/2023 10:45 AM LEADERSHIP INTERN Result [facility] Fede Palacios M.D. LAB BLOOD ADD-ON Final Res ult Performing Organization Address City/[facility]/ZIP Co de Phone Number [facility] [address] [place] [address] * Magnesium (11/01/2023 1:25 PM LEADERSHIP INTERN) Only the most recent of12 resultswithin the time period is included. Magnesium, S 2.0 1.7 - 2.3 mg/dL 11/01/2023 3:49 PM LEADERSHIP INTERN DTL Blood (Blood, Venous) 11/01/2023 1:25 PM LEADERSHIP INTERN 11/01/2023 2:03 PM LEADERSHIP INTERN Result [facility] Cece Thornton P.A.-C., M.S. LAB BLOOD ADD-ON Final Result Performing Organization Address [facility] Co de Phone Number [facility] [address] [place], [place] [address] [place] [address] [address] [place] [address] * (ABNORMAL) Ferritin (11/01/2023 1:25 PM LEADERSHIP INTERN) Only the most recent of7 resultswithin the time period is included. Ferritin, S 10(L) 11 - 328 mcg/L 11/03/2023 11:37 AM LEADERSHIP INTERN DTL Blood 11/01/2023 1:25 PM LEADERSHIP INTERN 11/03/2023 10:45 AM LEADERSHIP INTERN Result [facility] Fede Palacios M.D. LAB BLOOD ADD-ON Final Res ult [facility] [address] [place] [address], [facility] DTL [facility] [address] [place] [address] * (ABNORMAL) Comprehensive Metabolic Panel (11/01/2023 1:25 PM LEADERSHIP INTERN) Only the most recent of3 resultswithin the time period is included. Pathologist [facility] Potassium, S 4.5 3.6 - 5.2 mmol/L 11/01/2023 3:49 PM LEADERSHIP INTERN DTL Sodium, S 144 135 - 145 mmol/L 11/01/2023 3:49 PM LEADERSHIP INTERN DTL Chloride, S 108(H) 98 - 107 mmol/L 11/01/2023 3:49 PM LEADERSHIP INTERN DTL Bicarbonate, S 25 22 - 29 mmol/L 11/01/2023 3:49 PM LEADERSHIP INTERN DTL Anion Gap 11 7 - 15 11/01/2023 3:49 PM LEADERSHIP INTERN DTL BUN (Blood Urea Nitrogen), S 17 6 - 21 mg/dL 11/01/2023 3:49 PM LEADERSHIP INTERN DTL Creatinine 0.96 0.59 - 1.04 mg/dL 11/01/2023 3:49 PM LEADERSHIP INTERN DTL Estimated GFR (eGFR) 61 >=60 mL/min/BS A 11/01/2023 3:49 PM LEADERSHIP INTERN DTL Comment: Estimated GFR calculated using the 2020 CKD_EPI creatinine equation. Calcium, Total, S 9.6 8.8 - 10.2 mg/dL 11/01/2023 3:49 PM LEADERSHIP INTERN DTL Glucose, S 89 70 - 140 mg/dL 11/01/2023 3:49 PM LEADERSHIP INTERN DTL Protein, Total, S 6.8 6.3 - 7.9 g/dL 11/01/2023 3:49 PM LEADERSHIP INTERN DTL Albumin, S 4.3 3.5 - 5.0 g/dL 11/01/2023 3:49 PM LEADERSHIP INTERN DTL Aspartate Aminotransferase (AST), S 15 8 - 43 U/L 11/01/2023 3:49 PM LEADERSHIP INTERN DTL Alkaline Phosphatase, S 83 35 - 104 U/L 11/01/2023 3:49 PM LEADERSHIP INTERN DTL Alanine Aminotransferase (ALT), S 14 7 - 45 U/L 11/01/2023 3:49 PM LEADERSHIP INTERN DTL Bilirubin, Total, S 0.3 0.0 - 1.2 mg/dL 11/01/2023 3:49 PM LEADERSHIP INTERN DTL Blood (Blood, Venous) 11/01/2023 1:25 PM LEADERSHIP INTERN 11/01/2023 2:03 PM LEADERSHIP INTERN Ap Buckley M.D., Ph.D. LAB BLOOD ADD-ON Fin al Result [facility] [address] [place] [address], [place] DTL [facility] [address] [place] [address] * BI Breast Screening Bilateral with Tomosynthesis [...] Annual Screening Mammogram ASSESSMENT: BI-RADS: 1: Negative. us Emilia Lincoln M.D. IMG BI PROCEDURES Final Re sult * (ABNORMAL) Basic Metabolic Panel (07/21/2023 6:09 [...] Cece Thornton P.A.-C., M.S. LAB BLOOD ADD-ON Final Result [facility] [address] [place] [address], [facility] DTL [address] [address] * BMD Bone Density Spine Hips (03/18/2023 [...] Bone Mineral Density (BMD) analysis performed on [employer] with serial number [id number]. ? FINDINGS: Left Hip: Femur Neck: BMD [...] including images and graphs, is available in [email or web address]. In the absence of other causes of [...] Bone Mineral Density (BMD) analysis performed on ioSemanticswith serial number [id number]. FINDINGS: Left Hip: Femur Neck: BMD = [...] IMPRESSION: Normal bone mineral density. Jose A Lewis M.D. IMJanet DXA PROCEDURES Final Result * ECHO STRESS 2D WITH COLOR, LIMITED DOPPLER AND CONTRAST (11/12/2022 3:12 PM LEADERSHIP INTERN) Ejection Fraction 64 MC CV EIMS Mid-Ascending [...] Region Laterality Modality Echocardiography 11/12/2022 1:38 PM LEADERSHIP INTERN Impressions 11/12/2022 4:22 PM LEADERSHIP INTERN consistent with elevated left ventricular filling pressure [...] [place] [id number]. Limited heart rate and double product response [...] per Echocardiography Contrast Administration Protocol Reference Document [id number]. Patient met an inclusion criterion and did not have contraindications in screening sections. For the complete report, see the Order-Level Documents. Narrative 11/12/2022 4:22 PM LEADERSHIP INTERN For the complete report, see the Order-Level [...] patient exercised for 6:41 min:sec on the [employer]. The patient achieved a workload of 3.3 METS and 49% FAC. Thetest was terminated due to fatigue and dyspnea. A peak heart rate of 105BPM was achieved (72% age-predicted maximal HR). Blood pressure at [id number] mmHg/68 mmHg. Blood pressure with exercise 166 mmHg/64 mmHg. Normalblood pressure response to exercise. Peak double product obtained [id number]. Limited heart rate and double product response [...] ratio). Calculated 2-D linear left ventricular ejection %. No regional wall motion abnormalities. Grade 2/3 [...] agentadministered per Echocardiography Contrast Administration ProtocolReference Document [id number]. Patient met an inclusion criterion and didnot have contraindications in screening sections. For the complete report, see the Order-Level Documents. Ap Buckley M.D., Ph.D. CV ECHO PROCEDURES F inal Result * CBC without Differential (11/12/2022 9:07 AM LEADERSHIP INTERN) Only the most recent of9 resultswithin the time period is included. Hemoglobin 12.0 11.6 - 15.0 g/dL 11/12/2022 9:42 AM LEADERSHIP INTERN DTL Hematocrit 38.6 35.5 - 44.9 % 11/12/2022 9:42 AM LEADERSHIP INTERN DTL Erythrocytes 4.51 3.92 - 5.13 x10(12)/L 11/12/2022 9:42 AM LEADERSHIP INTERN DTL MCV 85.6 78.2 - 97.9 fL 11/12/2022 9:42 AM LEADERSHIP INTERN DTL RBC Distrib Width 15.9 12.2 - 16.1 % 11/12/2022 9:42 AM LEADERSHIP INTERN DTL Platelet Count 228 157 - 371 x10(9)/L 11/12/2022 9:42 AM LEADERSHIP INTERN DTL Leukocytes 5.5 3.4 - 9.6 x10(9)/L 11/12/2022 9:42 AM LEADERSHIP INTERN DTL Blood (Blood, Venous) 11/12/2022 9:07 AM LEADERSHIP INTERN 11/12/2022 9:31 AM LEADERSHIP INTERN Ap Buckley M.D., Ph.D. LAB BLOOD ADD-ON Fin al Result [facility]af[facility] [address] [place] [address], [facility] DTL [facility] [address] [place] [address] * CT Head without IV Contrast (08/09/2022 [...] with preliminary vRad report. Silvino Rowe M.D. IMJanet CT PROCEDURES Final Resu lt * Troponin T, 2H/6H, 5th Gen (06/06/2022 [...] 1:31 AM CDT ST[facility] Comment:Result canceled by t he ancillary. Blood (Blood, Venous) 06/06/2022 1:05 AM CDT 06/06/2022 1:11 AM CDT Narrative [facility] - 06/06/2022 1:31 AM CDT Specimen Information: Specimen ID: [id number] Specimen Type: Blood Specimen Collection Start Date: 06/06/2022 ??1:05 AM Specimen Received Date: 06/06/2022 ??1:11 AM Specimen ID: [id number] Specimen Type: Blood Specimen Collection Start Date: 06/06/2022 ??1:31 AM Specimen Received Date: 06/06/2022 ??1:31 AM Nadja Reed M.D. LAB BLOOD TROPONIN Fin al Result Performing Organization Address City/[facility] Co de Phone Number [facility] [address] [place] [address] * Troponin T, Baseline, 5th gen (06/05/2022 7:49 PM CDT) Only the most recent of2 resultswithin the time period is included. Pathologist [facility] Troponin T, Baseline, 5th gen 9 <=10 ng/L 06/05/2022 8:12 PM CDT [facility] Blood (Blood, Venous) 06/05/2022 7:49 PM CDT 06/05/2022 7:55 PM CDT Nadja Reed M.D. LAB BLOOD TROPONIN Fin al Result Performing Organization Address City/[facility]/[place] [address] * Hepatic Function Panel (06/05/2022 7:49 PM [...] PM CDT Nadja Reed M.D. LAB BLOOD ADD-ON Final Result Performing Organization Address City/[facility]/ZIP Co de Phone Number [address] [address], [place] [address] * Lipase (06/05/2022 7:49 PM CDT) Only the most recent of3 resultswithin the time period is included. Lipase, S 32 13 - 60 U/L 06/05/2022 8: 39 PM CDT DTL Blood (Blood, Venous) 06/05/2022 7:49 PM CDT 06/05/2022 8:15 PM CDT Nadja Reed M.D. LAB BLOOD ADD-ON Final Result [facility] [address] [place] [address], [facility] DTL [facility] [address] [address] * Surgical Pathology (06/05/2022 11:15 AM CDT) Pathologist [facility] 06/08/2022 9:17 AM CDT DTL Report electronically [...] toto in cassette A3. ?? Grossed by JMS. B: ?? Received in formalin labeled with the patient's name, medical record number, and colon-polyp, rectum is a 0.7 x 0.5 x 0.4 cm pale horton-red polypoid soft tissue. ??The specimen is inked at the resection margin bisected and submitted entirely in cassette B1. Grossed by JMS. 06/08/2022 9:17 AM CDT DTL Interpretation FINAL DIAGNOSIS A. Colon, ascending colon, transverse colon, endoscopic biopsy: ??Fragments of tubular adenoma, low grade dysplasia. B. Colon, rectum, endoscopic polypectomy: ??Tubular adenoma, low grade dysplasia, completely excised. 06/08/2022 9:17 AM CDT DTL Polyp (Colon) 06/05/2022 11: 15 AM CDT Polyp (Colon) 06/05/2022 11: 33 AM CDT Vivian Guy M.D. LAB SURG PATH ORDERABLES Fi nal Result Performing Organization Address City/State/[facility] Co de Phone Number [facility] [address] [place] [address], [facility] DTL [facility] [address] [place] [address] * Colonoscopy-Gastroenterology Image Exam (06/05/2022 11:00 AM CDT) Only the most recent of4 resultswithin the time period is included. 06/05/2022 10:5 7 AM CDT Narrative [facility] - 06/05/2022 1:25 PM CDT This order has been created and auto-finalized to support the import of images acquired without order. The clinical documentation to support these images can be found on the encounter that produced images. us Provider Not In System IMG NON RAD IMAGING PROCE DURES Final Result Performing Organization Address [facility] Co de Phone Number [facility] NA * Colonoscopy (06/05/2022 10:57 AM CDT) 06/05/2022 10:5 7 AM CDT Impressions [facility] - 06/05/2022 11:39 AM CDT Post-op Diagnoses: ? - Four 2 to 3 mm polyps in the rectum, in the transverse colon and in ? the ascending colon, removed with a cold snare. Resected and retrieved. ? - One diminutive polyp in the ascending colon, removed with a cold ? biopsy forceps. Resected and retrieved. Narrative [facility] - 06/05/2022 11:39 AM CDT Gonda 9 [...] bowel preparation was evaluated using the BBPS ([place] Bowel Preparation ? Scale) with scores of: [...] been signed electronically. Number of Addenda: 0 us Telly Gaines M.D. GI PROCEDURE ORDERABLES Fi nal Result Performing Organization Address [facility] Co de Phone Number [facility] NA * INR, POCT (06/05/2022 10:28 AM CDT) Only the most recent of71 resultswithin the time period is included. INR, POCT, B 1.2 06/05/2022 10:32 AM CDT [facility] Comment: ----ADDITIONAL INFORMATION---- Standard intensity warfarin therapeutic range: 2.0 to 3.0 ?? High intensity warfarin therapeutic range: 2.5 to 3.5 Blood 06/05/2022 10:2 8 AM CDT 06/05/2022 10:33 AM CDT us Unknown Provider LAB POCT ORDERABLES - DEVICE Fi nal Result Performing Organization Address [facility] de Phone Number [facility] [address] [facility] [address] [place] [address] * Upper GI Endoscopy (04/02/2022 11:03 AM CDT) 04/02/2022 11:0 3 AM CDT Impressions [facility] - 04/02/2022 11:42 AM CDT Post-op Diagnoses: ? - Normal examined duodenum. ? - 5 cm hiatal hernia. ? - Erosive gastropathy with no bleeding and no stigmata of recent ? bleeding. ? - Esophagogastric landmarks identified. ? - LA Grade A esophagitis. ? - No specimens collected. Narrative [facility] - 04/02/2022 11:42 AM CDT Gonda 9 [...] Addenda: 0 Telly Gaines M.D. GI PROCEDURE ORDERABLES Fi nal Result [facility] NA * SARS Coronavirus-2 RNA, V Asymptomatic [...] was performed using the Aptima SARS-CoV-2 assay ([employer] on the Yet[employer] Data System under emergency use authorization (EUA) by the U.S. Food and Drug Administration. Fact sheets for this EUA assay can be found at the following links: For Healthcare Providers: https://www.fda.gov/media/885365/download For Patients: https://www.fda.gov/media/853387/download Varies (Nasopharynx) 03/31/2022 9:53 AM CDT 03/31/2022 4:11 PM CDT us Sameer Bowman D.O. LAB MICROBIOLOGY - GENERAL ORDERABLES Final Result Performing Organization Address City/[facility]/ZIP Co de Phone Number [facility] [address] [place] [address], [place] MKTO [facility] [place] [address] [place] [address] * Streptococcus Group A, Molecular Detection, PCR, Throat (03/29/2022 10:18 AM CDT) Group A Streptococcus PCR, Throat Negative Negative 03/29/2022 11:01 AM CDT [facility] Varies (Throat) 03/29/2022 1 0:18 AM CDT 03/29/2022 10:34 AM CDT us Dora Martinez APRN, C.N.P., D.N.P., M.S.N. LAB MICROBIOLOGY - GENERAL ORDERABLES Final Result Performing Organization Address City/[facility]/ZIP Co de Phone Number [facility] [address] [place] [address], [facility] OWAT [facility] [place] [address] [place] [address] * SARS-CoV-2, Flu A/B, RNA, Varies (03/22/2022 [...] was performed using the Aptima SARS-CoV-2/Flu assay ([employer] on the [employer] System under emergency use authorization (EUA) by the U.S. Food and Drug Administration. Fact sheets for this EUA assay can be found at the following links: For Healthcare Providers: https://www.fda.gov/media/658430/download For Patients: https://www.fda.gov/media/924155/download Varies (Nasopharynx) 03/22/2022 11:33 AM CDT 03/22/2022 5:21 PM CDT us Adarsh Ramirez M.D., M.B.A. LAB MICROBIOLOGY - GENERAL ORDERABLES Final Result Performing Organization Address City/State/[facility] Co de Phone Number [facility] [address] [place] [address], [place] [address] * DX Knee Right Standing Right 3 [...] TKA with lateral patellar tilt. Storm Iqbal P.A.-C. M.S. IMG DIAGNOSTIC IMAGING PROCEDURES Final Result * DX KNEE RIGHT STANDING RIGHT 3 [...] found on the encounter that produced images. us Provider Not In System IMG NON RAD IMAGING PROCE DURES Final Result [facility] NA * BI Breast Diagnostic Right with [...] Annual Screening Mammogram ASSESSMENT: BI-RADS: 2: Benign. us Telly Gaines M.D. IMG BI PROCEDURES Final Re sult * MS ARTHCS ASP/INJ MJR JT WO US (12/05/2020 8:30 AM LEADERSHIP INTERN) Narrative [facility] - 12/05/2020 8:30 AM LEADERSHIP INTERN Storm Iqbal P.A.-C. ? 12/05/2020 11:47 AM [...] needed for comfort Storm Iqbal P.A.-C. M.S. PROCEDURE/MINOR SURGIC AL ORDERABLES Final Result Performing Organization Address City/[facility]/ZIP Co de Phone Number [facility] NA * (ABNORMAL) Acid-Base Balance (11/27/2020 9:26 AM LEADERSHIP INTERN) pH Venous 7.31(L) 7.32 - 7.43 pH 11/27/2020 9:58 AM LEADERSHIP INTERN METH pCO2 Venous 56(H) 41 - 51 mm Hg 11/27/2020 9:58 AM LEADERSHIP INTERN METH Standard Bicarbonate 25 21 - 25 mmol/L 11/27/2020 9:58 AM LEADERSHIP INTERN METH Sample Site, Venous Venous Stick 11/27/2020 9:58 AM LEADERSHIP INTERN METH Blood (Blood, Venous) 11/27/2020 9:26 AM LEADERSHIP INTERN 11/27/2020 9:53 AM LEADERSHIP INTERN Eli Patterson B.Ch. LAB BLOOD NON ADD -ON Final Result Performing Organization Address [facility] Co de Phone Number [facility] [address] [place] [address], [facility] METH [facility] [address] [place] [address] * Pulmonary Function Tests (11/26/2020 1:11 PM LEADERSHIP INTERN) VC MAX POST 2.41 L 11/26/2020 3:26 PM LEADERSHIP INTERN [place] [address] PostFVC 2.41 L 11/26/2020 3:26 PM [facility]SHIP INTERN [facility] PostFEV1 1.89 L 11/26/2020 3:26 PM LEADERSHIP INTERN [facility] FEV1/FVC POST 78.44 % 11/26/2020 3:26 PM LEADERSHIP INTERN [address] FEF 25-75 % POST 1.68 L/s 11/26/2020 3:26 PM [facility]SHIP INTERN [facility] PEF POST 6.04 L/s 11/26/2020 3:26 PM [facility]ERSHIP INTERN [facility] FET POST 8.61 sec 11/26/2020 3:26 PM [facility] SUITE DLCO SINGLE BREATH POST 12.75 ml/(min*mm Hg) 11/26/2020 3:26 PM [facility] SINGLE BREATH POST 4.32 L 11/26/2020 3:26 PM [facility] X1NcbGdgs 96.00 % 11/26/2020 3:26 PM [facility] SUITE PulseRest 60.00 1/min 11/26/2020 3:26 PM [facility] SUITE TLC POST 4.44 L 11/26/2020 3:26 PM [facility] SUITE VC POST 2.44 L 11/26/2020 3:26 PM [facility] FRCPLETH POST 2.37 L 11/26/2020 3:26 PM [facility] RV 2.01 L 11/26/2020 3:26 PM [facility] RV % TLC POST 45.18 % 11/26/2020 3:26 PM [facility] VC MAX PRE 2.25 L 11/26/2020 3:26 PM [facility] FVC 2.25 L 11/26/2020 3:26 PM [facility] FEV1 1.79 L 11/26/2020 3:26 PM [facility] FEV1/FVC 79.61 % 11/26/2020 3:26 PM [facility] LOH91-22% 1.63 L/s 11/26/2020 3:26 PM [facility] PEF PRE 5.97 L/s 11/26/2020 3:26 PM LEADERSHIP INTERN [facility] SUITE FET PRE 6.04 sec 11/26/2020 3:26 PM [facility] SUBSTANCE POST Albuterol 11/26/2020 3:26 PM [facility] DOSE POST 2 Puff 11/26/2020 3:26 PM [facility] % PRED VC MAX 91 % % 11/26/2020 3:26 PM [facility] FVC% 91 % % 11/26/2020 3:26 PM LEADERSHIP INTERN [address] FEV1% 93 % % 11/26/2020 3:26 PM LEADERSHIP INTERN [address] % PRED FEV1/FVC 102 % % 11/26/2020 3:26 PM LEADERSHIP INTERN [address] % PRED FEF 25-75% 99 % % 11/26/2020 3:26 PM LEADERSHIP INTERN [address] % PRED PEF 118 % % 11/26/2020 3:26 PM LEADERSHIP INTERN [address] PRED TLC 4.47 11/26/2020 3:26 PM LEADERSHIP INTERN [address] PRED RV 1.98 11/26/2020 3:26 PM LEADERSHIP INTERN DO [address] PRED VC MAX 2.47 11/26/2020 3:26 PM LEADERSHIP INTERN DO [address] PRED FVC 2.47 11/26/2020 3:26 PM LEADERSHIP INTERN DO [address] PRED FEV 1 1.92 11/26/2020 3:26 PM LEADERSHIP INTERN DO [address] PRED FEV1/FVC 78.1 11/26/2020 3:26 PM LEADERSHIP INTERN [address] PRED FEF 25-75% 1.64 11/26/2020 3:26 PM LEADERSHIP INTERN [address] PRED PEF 5.0 11/26/2020 3:26 PM LEADERSHIP INTERN [address] PRED DLCO 17.4 11/26/2020 3:26 PM LEADERSHIP INTERN DO [place] SUITE 11/26/2020 1:11 PM LEADERSHIP INTERN Eli Patterson, B.Ch. PFT ORDERABLES F inal Result Performing Organization Address City/[facility] Co de Phone Number DO NEREYDARY SUITE NA * PUL Exhaled Nitric Oxide (11/26/2020 12:59 PM LEADERSHIP INTERN) Exhaled NO Oral 12 [facility] Parts per billion (ULN) 39 [facility] Eli Patterson, B.Ch. PFT ORDERABLES F inal Result [facility] NA * FL Esophagram Double Contrast (10/15/2020 2:41 PM LEADERSHIP INTERN) Anatomical Region Laterality Modality Gastro Intestinal, Abdominal RST LOS, Abdominal ARZ LOS, Abdominal FLA LOS Digital Radiography 10/15/2020 3:01 PM LEADERSHIP INTERN Impressions 10/15/2020 3:50 PM LEADERSHIP INTERN New paraesophageal hiatal hernia contains the gastric fundus. Narrative 10/15/2020 3:50 PM LEADERSHIP INTERN EXAM: ??FL ESOPHAGRAM DOUBLE CONTRAST COMPARISON: ??Esophagram [...] the gastric fundus. Eli Patterson, B.Ch. IMG FLUOROSCOPY P ROCEDURES Final Result * CT Chest without IV Contrast (10/11/2020 12:15 PM LEADERSHIP INTERN) Only the most recent of3 resultswithin the time period is included. Anatomical Region Laterality Modality Chest, Thoracic RST LOS, Tho racic ARZ LOS, Thoracic FLA LOS N/A Computed Tomography, Compute d Tomography 10/11/2020 1:04 PM LEADERSHIP INTERN Impressions 10/11/2020 1:27 PM LEADERSHIP INTERN 1. Patchy bilateral groundglass opacities are relatively diffuse. Nonspecific, although in the setting of recent COVID-19 infection, may represent resolving or persistent disease. No significant architectural distortion to suggest component of fibrosis or organization. Consider chest CT follow-up in 3 months to evaluate for potential resolution. 2. Small pulmonary nodules appear relatively similar dating back to 2013. Narrative 10/11/2020 1:27 PM LEADERSHIP INTERN EXAM: CT CHEST WITHOUT IV CONTRAST COMPARISON: [...] pulmonary nodules appear relatively similar dating back [id number]. Eli Patterson B.Ch. IMG CT PROCEDURES Final Result * (ABNORMAL) Haptoglobin (09/09/2020 8:21 AM CDT) Haptoglobin, S 303(H) 30 - 200 mg/dL 09/09/2020 10:[address] [facility] Blood 09/09/2020 8:21 AM CDT 09/09/2020 2:40 PM CDT Kanchan Varela P.A.-C., M.S. LAB BLOOD ADD-ON Fi nal Result [facility] [address] [place] [address] [facility] Dept. of Laboratory Medicine and Pathology [address] [place] [address] * Morphology Evaluation (Special Smear) (09/09/2020 12:22 [...] CDT Kanchan Varela P.A.-C., M.S. LAB BLOOD ADD-ON Fi nal Result Performing Organization Address City/[facility] Co de Phone Number [facility] [address] [place] [address], [facility] [address] [place] [address] * D-Dimer (09/09/2020 12:22 AM CDT) Only the most recent of3 resultswithin the time period is included. D-Dimer, P <220 <=500 ng/mL FEU 09/09/2020 2:03 AM CDT DT Comment: ----ADDITIONAL INFORMATION---- D-dimer values less than or equal to 500 ng/mL fibrinogen equivalent units (FEU) may be used in conjunction with clinical pre-test probability to exclude deep vein thrombosis (DVT) and/or pulmonary embolism (PE). Blood (Blood, Venous) 09/09/2020 12:22 AM CDT 09/09/2020 12:57 AM CDT Kanchan Varela P.A.-C., M.S. LAB BLOOD ADD-ON Fi nal Result Performing Organization Address [facility] Co de Phone Number [facility] [address] [place] [address], [facility] [address] [place] [address] * (ABNORMAL) CRP (C-Reactive Protein) (09/09/2020 12:22 AM CDT) Only the most recent of3 resultswithin the time period is included. C-Reactive Protein (CRP), S 54.0(H) <=8.0 mg/L 09/09/2020 1:27 AM CDT DT Blood (Blood, Venous) 09/09/2020 12:22 AM CDT 09/09/2020 1:13 AM CDT Kanchan Varela P.A.-C., M.S. LAB BLOOD ADD-ON Fi nal Result Performing Organization Address City/[facility] Co de Phone Number [facility] [address] [facility] [address] [place] [address] * (ABNORMAL) LD (Lactate Dehydrogenase) (09/09/2020 12:22 AM CDT) [facility] LD 268(H) 122 - 222 U/L 09/09/2020 1:27 AM CDT DTL Blood (Blood, Venous) 09/09/2020 12:22 AM CDT 09/09/2020 1:13 AM CDT Kanchan Varela P.A.-C., M.S. LAB BLOOD NON ADD-O N Final Result [facility] [address] [place] [address] * (ABNORMAL) Soluble Transferrin Receptor (sTfR) (09/09/2020 12:14 AM CDT) [facility] Soluble Transferrin Receptor (sTfR) 5.3(H) 1.8 - 4.6 mg/L 09/09/2020 12:27 PM CDT DTL Comment: ----ADDITIONAL INFORMATION---- It is reported that Americans may have slightly higher values. Blood (Blood, Venous) 09/09/2020 12:14 AM CDT 09/09/2020 11:43 AM CDT Kanchan Varela P.A.-C., M.S. LAB BLOOD ADD-ON Fi nal Result [facility] [address] [place] [address] * Reticulocytes (09/08/2020 8:02 AM CDT) [facility] Reticulocytes, B 0.87 0.60 - 2.71 % 09/08/2020 3:47 PM CDT DTL Absolute Reticulocyte 31.1 30.4 - 110.9 x10(9)/L 09/08/2020 3:47 PM CDT DTL Blood (Blood, Venous) 09/08/2020 8:02 AM CDT 09/08/2020 3:36 PM CDT Kanchan Varela P.A.-C., M.S. LAB BLOOD ADD-ON Fi nal Result Performing Organization Address [facility] de Phone Number [facility] [address] [place] [address], [facility] DTL [facility] [address] [place] [address] * SARS-CoV-2 Total Antibody, Serum (09/08/2020 3:31 AM CDT) [facility] SARS-CoV-2 Nucleocapsid Total Ab, S Negative Negative 09/08/2020 4:47 AM CDT DTL Comment: No antibodies to SARS-CoV-2 detected. Negative results may occur in serum collected too soon following infection or in immunosuppressed patients. Follow-up testing with a molecular test is recommended in symptomatic patients. This test should not be used to exclude active/recent COVID-19. ----ADDITIONAL INFORMATION---- Testing was performed using the [employer] Beul-NEXG-HjD-2 Reagent assay from [employer], which has received Emergency Use Authorization(EUA) by the U.S. Food and Drug Administration. Fact sheets for this Emergency Use Authorization (EUA) assay can be found at the following links: For Healthcare Providers: https://www.fda.gov/media/672186/download For Patients: https://www.fda.gov/media/923995/download Blood (Blood, Venous) 09/08/2020 3:31 AM CDT 09/08/2020 4:13 AM CDT Lesli Rider M.D., Ph.D. LAB MICROBIOLOGY - BLOOD ORDERABLES Final Result Performing Organization Address [facility] Co de Phone Number [facility] [address] [place] [address] [address] [place] [address] * (ABNORMAL) SARS Coronavirus 2, Molecular Detection, PCR (LOCOMOTIVE MECHANIC) Symptomatic (09/08/2020 3:14 AM CDT) COVID-19, PCR Detected( C) Undetected 09/08/2020 11:11 AM CDT DT Comment: SARS-CoV-2 RNA present. ----ADDITIONAL INFORMATION---- This test has received Emergency Use Authorization (EUA) by the U.S. Food and Drug Administration and is used per cow rider's instructions. Performance characteristics were verified by [facility] in a manner consistent with CLIA requirements. Visit the CDC website: https://www.cdc.gov/coronavirus/ for the most recent guidelines on Coronavirus testing. Fact Sheet for Healthcare Providers: https://www.fda.gov/media/122906/download Fact Sheet for Patients: https://www.fda.gov/media/706048/download Varies (Nasopharynx) 09/08/2020 3:14 AM CDT 09/08/2020 3:54 AM CDT Lesli Rider M.D., Ph.D. LAB MICROBIOLOGY - GENERAL ORDERABLES Final Result [place] [id number] [address] * DX Chest Portable 1 View (09/08/2020 [...] hiatal hernia. Deformitydistal right clavicle, likely posttraumatic. us Jeffrey Castillo M.D. Janet DIAGNOSTIC IMAGING PROC EDURES Final Result * (ABNORMAL) Venous Blood Gas and Electrolytes [...] 1:11 AM CDT 09/08/2020 1:20 AM CDT us Unknown Provider LAB POCT ORDERABLES - DEVICE Fi nal Result Performing Organization Address [facility]/ZIP Co de Phone Number [facility] [address] [place] [address], [facility] PCSM [facility] [address] [place] [address] * Venous Blood Gas and Electrolytes, POCT (09/08/2020 1:09 AM CDT) ABG and Lytes, POCT, B Collected DEFAULT 09/08/2020 1:09 AM CDT SMLX Blood (Other, Specify in Comments) 09/08/2020 1:09 AM CDT 09/08/2020 1:09 AM CDT us Jeffrey Castillo M.D. LAB POCT ORDERABLES - DEVIC E Final Result Performing Organization Address [facility]/ZIP Co de Phone Number [facility] [address] [place] [address], [facility] SMLX [facility] [address] [place] [address] * Patient Status (08/30/2020 10:24 AM CDT) FIO2 0.21 0.21=AIR 08/30/2020 10:35 AM CDT [facility] Spont. breaths/min 16 08/30/2020 10:35 AM CDT [facility] Blood 08/30/2020 10:2 4 AM CDT 08/30/2020 10:35 AM CDT us Ap Laws M.D. LAB BLOOD NON ADD-ON Final Result Performing Organization Address City/[facility]/ZIP Co de Phone Number [facility] [address] [place] [address], [facility] [address] [place] [address] * (ABNORMAL) Blood Gas without Coox, Venous [...] 10:24 AM CDT 08/30/2020 10:35 AM CDT us Ap Laws M.D. LAB BLOOD NON ADD-ON Final Result Performing Organization Address City/[facility]/ZIP Co de Phone Number [facility] [address] [place] [address], [facility] [address] [place] [address] * Bacteria / Rachna Culture, Blood #1 (08/30/2020 10:24 AM CDT) Only the most recent of2 resultswithin the time period is included. Bacteria/Kimberly da Culture, Blood No growth after 5 days of incubation. 09/04/2020 12:02 PM CDT DTL Blood (Blood, Peripheral Draw) 08/30/2020 10:24 AM CDT 08/30/2020 11:40 AM CDT Comment:Specimen Source Site : Blood Narrative [facility] - 09/04/2020 12:02 PM CDT Specimen Information: Specimen ID: [id number] Specimen Source: Blood, Peripheral Draw Specimen Comment: Specimen Source Site: Blood Specimen Collection Start Date: 08/30/2020 10:24 AM Specimen Received Date: 08/30/2020 11:40 AM Specimen ID: [id number] Specimen Source: Blood, Peripheral Draw Specimen Comment: Specimen Source Site: Blood Specimen Collection Start Date: 08/30/2020 10:24 AM Specimen Received Date: 08/30/2020 11:40 AM Specimen ID: [id number] Specimen Source: Blood, Peripheral Draw Specimen Comment: Specimen Source Site: Blood Specimen Collection Start Date: 08/30/2020 10:24 AM Specimen Received Date: 08/30/2020 11:40 AM Ap Laws M.D. LAB MICROBIOLOGY - GENERAL ORDERABLES Final Result [facility] [address] [place] [address], [facility] [address] [place] [address] * Lactate, POCT (08/30/2020 10:20 AM CDT) Only the most recent of2 resultswithin the time period is included. Pathologist [facility] Lactate, POCT Collected DEFAULT 08/30/2020 10:20 AM CDT SMLX Blood (Blood, Venous) 08/30/2020 10:20 AM CDT 08/30/2020 10:20 AM CDT us Ap Laws M.D. LAB POCT ORDERABLES - KARLI CE Final Result [facility] [address] [place] [address], [place] SMLX [facility] [address] [place] [address] * Cologuard (07/04/2020 3:30 PM CDT) Result [...] Fang et al, N Engl J Med 2014;370(14):6391-0730) The normal value (reference range) for this assay is negative. COLOGUARD RE-SCREENING RECOMMENDATION: Periodic routine colorectal cancer screening is an important part of preventive healthcare for asymptomatic persons at average risk for colorectal cancer. Following a negative Cologuard result, the [place] [employer] and U.S. Multi-Society Task Force screening guidelines recommend a Cologuard re-screening interval of 3 years. References: [place] [employer] (ACS). Colorectal cancer prevention and early detection. [place], [place]: [place] [employer]; [updated 2015Mar 08]. https://www.cancer.org/cancer/epnnw-aswyzl-oichhc/detection- diagnosis-staging/acs-recommendations.html. Accessed July 15, 2018; Hao LIMON, Ludmila MAY, Ashley GuamanK, Colorectal Cancer Screening: Recommendations for Physicians and Patients from the U.S. Multi-Society Task Force on Colorectal Cancer Screening, Am J Gastroenterology 2017; 112:9929-1539. TEST TYPE: Composite algorithmic analysis of stool [...] interval of every 3 years by the [place] [employer] and U.S. Multi-Society Task Force. [...] can be accessed at the following location: www.RemCare/results. Additional description of the Cologuard test process, warnings and precautions can be found at www.cologuardtest.com. Rx only. Stool (Stool) 07/04/2020 3:3 0 PM CDT 07/06/2020 6:50 PM CDT Telly Gaines M.D. LAB BODY FLUIDS AND STOOLS ORDERABLES Final Result [facility] [address] [place] [address] [employer] [address] [facility], [address] [place] [address] * (ABNORMAL) Urinalysis with Microscopic if Indicated (11/20/2019 10:58 AM LEADERSHIP INTERN) Source Midstream 11/20/2019 11:06 AM LEADERSHIP INTERN FMKE Clarity Clear Clear 11/20/2019 11:06 AM LEADERSHIP INTERN FMKE Color Yellow 11/20/2019 11:06 AM LEADERSHIP INTERN FMKE Comment: ----REFERENCE VALUE---- Colorless Yellow Rosenda Blood Trace(A) Negative 11/20/2019 11:06 AM LEADERSHIP INTERN FMKE Nitrite Negative Negative 11/20/2019 11:06 AM LEADERSHIP INTERN FMKE Leukocyte Esterase Trace(A) Negative 11/20/2019 11:06 AM LEADERSHIP INTERN FMKE Protein Negative mg/dL 11/20/2019 11:06 AM LEADERSHIP INTERN FMKE Comment: ----REFERENCE VALUE---- Negative Trace Glucose Negative Negative mg/dL 11/20/2019 11:06 AM LEADERSHIP INTERN FMKE Ketones, QI(U) Negative Negative mg/dL 11/20/2019 11:06 AM LEADERSHIP INTERN FMKE Bilirubin Negative Negative 11/20/2019 11:06 AM LEADERSHIP INTERN FMKE pH 7.0 5.0 - 8.0 11/20/2019 11:06 AM LEADERSHIP INTERN FMKE Specific Stryker 1.010 1.001 - 1.035 11/20/2019 11:06 AM LEADERSHIP INTERN FMKE Urobilinogen 0.2 0.2 - 1.0 mg/dL 11/20/2019 11:06 AM LEADERSHIP INTERN FMKE Urine (Urine, Clean Catch) 11/20/2019 10:58 AM LEADERSHIP INTERN 11/20/2019 11:03 AM LEADERSHIP INTERN us Jeffrey Garay P.A.-C. LAB URINE ORDERABLES F inal Result [facility] [address] [place] [address], [facility] FMKE [facility] [place] [address] [place] [address] * Microscopic Manual (11/20/2019 10:58 AM LEADERSHIP INTERN) White Blood Cells Occ-3 /hpf 11/20/2019 2:35 PM LEADERSHIP INTERN FB60 Comment: ----REFERENCE VALUE---- Males: 0-3 Females: 0-10 Unknown: 0-10 Red Blood Cells None Seen 0 - 2 /hpf 11/20/2019 2:35 PM LEADERSHIP INTERN FB60 Squamous Cells Occ-3 /hpf 11/20/2019 2:35 PM LEADERSHIP INTERN FB60 Urine 11/20/2019 10:5 8 AM LEADERSHIP INTERN 11/20/2019 2:32 PM LEADERSHIP INTERN us Jeffrey Garay P.A.-C. LAB URINE ORDERABLES F inal Result [facility] [address] [place] [address], [place] FB60 [facility] [place] [address] [place] [address] * (ABNORMAL) Bacterial Culture, Aerobic + Susc, Urine (11/20/2019 10:58 AM LEADERSHIP INTERN) Urine Culture Mixed osmel.(A) 11/21/2019 5:07 PM LEADERSHIP INTERN TO Urine (Urine, Midstream) 11/20/2019 10:58 AM LEADERSHIP INTERN 11/20/2019 7:22 PM LEADERSHIP INTERN Comment:Specimen Source Site : Urine us Jeffrey Garay P.A.-C. LAB MICROBIOLOGY - GEN ERAL ORDERABLES Final Result Performing Organization Address City/[facility]/ZIP Co de Phone Number [facility] [address] [place] [address], [facility] MKTO [facility] [place] [address] [place] [address] * Type and Screen (with reflex Antibody ID) (07/03/2019 10:19 AM CDT) Pathologist [facility] ABORh A Pos Not applicable 07/03/2019 11:36 AM CDT Antibody Screen Negative Negative 07/03/2019 11:47 AM CDT Type & Screen Expiration [id number] 07/03/2019 11:36 AM CDT Testing Location He DEFAULT 07/03/2019 10:40 AM CDT Blood (Blood, Venous) 07/03/2019 10:19 AM CDT 07/03/2019 10:40 AM CDT us Storm Iqbal P.A.-C., M.S. LAB BLOOD BANK TEST OR DERABLES Final Result [facility] [address] * Staphylococcus aureus Detection by Rapid PCR (07/03/2019 10:16 AM CDT) Staphylococcus aureus PCR Specimen Source Swab, Rodney 07/04/2019 11:43 AM CDT Result Negative Not Applicable 07/04/2019 11:43 AM CDT Comment: ----ADDITIONAL INFORMATION---- This test was developed and its performance characteristics determined by [facility] in a manner consistent with CLIA requirements. This test has not been cleared or approved by the U.S. Food and Drug Administration. Varies (Rodney) 07/03/2019 10 :16 AM CDT 07/03/2019 11:14 AM CDT Storm Iqbal P.A.-C., M.S. LAB MICROBIOLOGY - GEN ERAL ORDERABLES Final Result [facility] - [address] * BI Ultrasound Breast Focused Bilateral [...] 1: Negative. Oxana Boone APRN, C.N.P., M.S. [facility] PROC EDURES Final Result * BI Breast Diagnostic Bilateral with Tomosynthesis [...] 1: Negative. Oxana Boone APRN, C.N.P., M.S. IM BI PROC EDURES Final Result * (TTE) 2D ECHO DOPPLER COLOR (03/28/2019 [...] Normal left ventricular chamber size; calculated ejection bddeylft91%. 2. No regional wall motion abnormalities. 3. [...] Order-Level Documents below. See PDF For Result us Ap Buckley M.D., Ph.D. CV ECHO PROCEDURES F inal Result * NM Cardiac Perfusion Rest and Stress SPECT (03/28/2019 1:39 PM CDT) 03/28/2019 12:2 8 PM CDT Narrative [facility] - 03/28/2019 3:27 PM CDT See PDF For Result us Ap Buckley M.D., Ph.D. IMG NM PROCEDURES Fi nal Result [facility] NA * MS ARTHCS ASP/INJ MJR JT W US (12/21/2018 11:30 AM LEADERSHIP INTERN) Narrative [facility] - 12/21/2018 11:30 AM LEADERSHIP INTERN Ian Bocanegra M.D. ? 12/21/2018 11:47 AM [...] QREADS: click the 'Dept Filter' button in [employer], then the 'Clear (Show All)' button, [...] Lidocaine as above. Ian Bocanegra M.D. PROCEDURE/MINOR SURGICAL OR DERABLES Final Result Performing Organization Address City/[facility] Co de Phone Number [facility] NA * Guided Procedure-Internal Medicine Image Exam (12/21/2018 11:10 AM LEADERSHIP INTERN) Narrative [facility] - 01/25/2019 12:10 PM CDT This order has been created and auto-finalized to support the import of images acquired without order. The clinical documentation to support these images can be found on the encounter that produced images. us Provider Not In System IMG NON RAD IMAGING PROCE LESLY Final Result Performing Organization Address City/[facility]/ZIP Co de Phone Number [facility] NA * DX Knee Right with Flexion and Patella 4 Views (12/02/2018 11:53 AM LEADERSHIP INTERN) Anatomical Region Laterality Modality Lower Extremity, Knee, Muscu loskeletal RST LOS, Musculoskeletal ARZ LOS, Muskuloskeletal FLA LOS Right Compu kash Radiography 12/02/2018 11:5 7 AM LEADERSHIP INTERN Impressions 12/02/2018 11:58 AM LEADERSHIP INTERN IMPRESSION: ??Advanced degenerative arthritis right knee with tricompartmental narrowing. Lateral subluxation of the proximal tibia with respect to the distal femur. Left TKA. No significant change since 06/27/18. Narrative 12/02/2018 11:58 AM LEADERSHIP INTERN EXAM: ??DX KNEE RIGHT WITH FLEXION AND PATELLA 4 VIEWS Procedure Note Josey Lewis M.D. - 12/02/2018 EXAM: DX KNEE RIGHT WITH FLEXION AND PATELLA 4 VIEWS IMPRESSION: Advanced degenerative arthritis right knee withtricompartmental narrowing. Lateral subluxation of the proximal tibia with respect to thedistal femur. Left TKA. No significant change since 06/27/18. Telly Gaines M.D. [facility] DIAGNOSTIC IMAGING PRO CEDURES Final Result * DX Shoulder Right 2+ Views (12/02/2018 11:53 AM LEADERSHIP INTERN) Anatomical Region Laterality Modality Upper Extremity, Shoulder, M usculoskeletal RST LOS, Musculoskeletal ARZ LOS, Muskuloskeletal FLA LOS Right Compu kash Radiography 12/02/2018 11:5 8 AM LEADERSHIP INTERN Impressions 12/02/2018 11:59 AM LEADERSHIP INTERN IMPRESSION: ??Mild glenohumeral and moderate acromioclavicular degenerative arthritis. Old fracture deformity of the distal clavicle. Subacromial spurring, which can be seen with rotator cuff degeneration. Narrative 12/02/2018 11:59 AM LEADERSHIP INTERN EXAM: ??DX SHOULDER RIGHT 2+ VIEWS Procedure Note Josey Lewis M.D. - 12/02/2018 EXAM: DX SHOULDER RIGHT 2+ VIEWS IMPRESSION: Mild glenohumeral and moderate acromioclaviculardegenerative arthritis. Old fracture deformity of the distal clavicle. Subacromialspurring, which can be seen with rotator cuff degeneration. us Telly Gaines M.D. IMG DIAGNOSTIC IMAGING PRO CEDURES Final Result * Home sleep apnea test (HSAT) (09/16/2018 7:48 AM CDT) Narrative [facility] - 09/16/2018 8:26 AM CDT Home sleep [...] sleep apnea/hypopnea, not resulting in significant desaturation us Alexus Chatman M.D. [facility] CENTER ORDERABLES Final Result [facility]ISS NA * LDA ANE MASK AIRWAY (07/13/2018 [...] Airway event: no complications Ap Redman APRN, CRNA, MNA, R.N. ANESTHESIA O RDERABLES Final Result * CARDIOVERSION EXTERNAL (07/13/2018 4:08 PM CDT) 07/13/2018 3:26 PM CDT Narrative [facility] - 07/13/2018 5:16 PM CDT See PDF For Result Radha Lomeli APRN, C.N.P., M.S. CV CARDIAC S ERVICES PROCEDURES Final Result [facility] [address] [place] [address], [facility] * (THU) 2D WITH COLOR AND LIMITED DOPPLER (07/13/2018 4:08 PM CDT) Ejection Fraction 65 [facility] EIMS Anatomical Region Laterality Modality X-Ray Angiograph y 07/13/2018 3:26 PM CDT Narrative 07/13/2018 5:14 PM CDT See PDF For Result Procedure Note Brown Thao M.D. - 07/13/2018 See PDF For Result Radha Lomeli APRN, C.N.P., M.S. CV ECHO PROC EDURES Final Result * MS ARTHCS ASP/INJ MJR JT WO US (06/27/2018 11:00 AM CDT) Narrative [facility] - 06/27/2018 11:00 AM CDT Evan Armendariz P.A.-C. ? 06/27/2018 11:27 AM Cnj-tzeb-dqzcpvzq-elbow arthrocentesis Date/Time: 06/27/2018 11:18 AM Performed by: EVAN ARMENDARIZ Authorized by: EVAN ARMENDARIZ Desktop Specialist utilized: ib[employer] mainframe systems programmer not needed ?? Risks discussed with: patient [...] comfort Evan Armendariz P.A.-C. PROCEDURE/MINOR SURGICAL ORDERABLES Final Result [facility] NA * DX Knee Right 4+ [...] Advanced tricompartment mild degenerative change right knee. us Evan Armendariz P.A.-C. IMG DIAGNOSTIC IMAGING P ROCEDURES Final Result * (ABNORMAL) C-Reactive Protein, High Sensitivity (12/23/2017 9:33 AM LEADERSHIP INTERN) C-Reactive Protein, High Sens, S 3.6(H) <2.0 mg/L 12/24/2017 10:27 AM LEADERSHIP INTERN [facility] Comment: Higher risk In adults, increased CRP is associated with an increased risk for ischemic cardiovascular events. CRP is an acute phase reactant; consider repeat analysis of CRP in 2-4 weeks to establish baseline value. Blood (Blood, Venous) 12/23/2017 9:33 AM LEADERSHIP INTERN 12/24/2017 7:59 AM LEADERSHIP INTERN us Jeffrey Garay P.A.-C. LAB BLOOD ADD-ON Final Result [facility] [address] [place] [address], [facility] * [employer] PGx (03/12/2017 4:07 PM CDT) F2 genotype [id number] GG [facility] Comment: Normal risk of thrombosis associated with Factor II (prothrombin). Other genetic and clinical factors contribute to the risk for thrombosis. Test Performed by: [facility] [address] [place] [address] [address] [place] [address] F2 phenotype Normal risk [facility] Comment: Test Performed by: [facility] [address] [place] [address] [address] [place] [address] F5 genotype [id number] GG [facility] Comment: Normal risk of thrombosis associated with Factor V. Other genetic and clinical factors contribute to the risk for thrombosis. Test Performed by: [facility] [address] [place] [address] [address] [place] [address] F5 phenotype Normal risk [facility] Comment: Test Performed by: [facility] [address] [place] [address] [address] [place] [address] COMT genotype [id number] AA [facility] Comment: COMT activity is predicted to be lower than in patients with the GG or GA genotypes at [id number]. Test Performed by: [facility] [address] [place] [address] [address] [place] [address] COMT phenotype Low [facility] Comment: Test Performed by: [facility] [address] [place] [address] [address] [place] [address] DPYD genotype *1/*1 [facility] Comment: Normal metabolizer. Normal dihydropyrimidine dehydrogenase activity. Normal risk of toxicities with fluoropyrimidines (5-fluorouracil, capecitabine and tegafur). Test Performed by: [facility] [address] [place] [address] [address] [place] [address] DPYD phenotype Normal DPD activity [facility] Comment: Test Performed by: [facility] [address] [place] [address] [address] [place] [address] DRD2 genotype [id number] AA [facility] Comment: Genotype is associated with a greater likelihood of improvement in schizophrenia symptoms with risperidone compared to the GG genotype. Other clinical and/or genetic factors may influence the response. Test Performed by: [facility] [address] [place] [address] [address] [place] [address] DRD2 phenotype Normal response [facility] Comment: Test Performed by: [facility] [address] [place] [address] [address] [place] [address] TPMT genotype *1/*1 [facility] Comment: Normal TPMT metabolizer. Normal risk of myelotoxicity associated with thiopurines (azathioprine, mercaptopurine and thioguanine). Toxicities with thiopurines can also occur due to impaired NUDT15 activity independently from the TPMT status. Test Performed by: [facility] [address] [place] [address] [address] [place] [address] TPMT phenotype Normal Risk [facility] Comment: Test Performed by: [facility] [address] [place] [address] [address] [place] [id number] GRIK4 genotype [id number] TT [facility] Comment: Genotype predicts a 10% increase in the risk of not responding to citalopram in patients with major depressive disorder related to the GRIK4 genotype alone. Other clinical and/or genetic factors may influence the response. Test Performed by: [facility] [address] [place], [place] [id number] GRIK4 phenotype Risk of decreased response [facility] Comment: Test Performed by: [facility] [address] [place] [address] HTR2A genotype [id number] AG [facility] Comment: Genotype predicts a normal likelihood of response to citalopram. Other clinical and/or genetic factors may influence response. Test Performed by: [facility] [address] [place] [address] [address] [place] [address] HTR2A phenotype Intron 2 genotype AG [facility] Comment: Test Performed by: [facility] [address] [place] [address] HTR2C genotype [id number] CC [facility] Comment: Genotype predicts an increased risk of weight gain with olanzapine treatment. Other clinical and/or genetic factors may influence response. Test Performed by: [facility] [address] [place], [place] [id number] HTR2C phenotype Increased risk [facility] Comment: Test Performed by: [facility] [address] [place] [address] IL28B (IFNL4) genotype [id number] CC [facility] Comment: Genotype predicts a normal sustained virologic response (SVR) with peginterferon-containing regimens. Test Performed by: [facility] [address] [place] [address] [address] [place] [address] IL28B (IFNL4) phenotype Normal response [facility] Comment: Test Performed by: [facility] [address] [place] [address] [address] [place] [address] OPRM1 genotype [id number] AA [facility] Comment: Analgesic effects of alfentanil and tramadol (possibly other opioids) may be higher in patients with this genotype. Other genetic and/or clinical factors influence response. Test Performed by: [facility] [address] [place] [address] [address] [place] [address] OPRM1 phenotype Asn/Asn isoform [facility] Comment: Test Performed by: [facility] [address] [place] [address] [address] [place] [address] CY genotype *1A/*1A [facility] Comment: Normal level of activity. Drugs metabolized at a normal rate. Test Performed by: [facility] [address] [place] [address] [address] [place] [address] CY phenotype Normal MAY [facility] Comment: Test Performed by: [facility] [address] [place] [address] [address] [place] [address] CYP2B6 genotype *1/*6 [facility] Comment: Decreased activity. Drugs converted to active metabolite(s) may have reduced efficacy. Active drugs converted to inactive metabolites may cause side effects or toxicity. Test Performed by: [facility] [address] [place] [address] [address] [place] [address] CYP2B6 phenotype Intermediate [facility] Comment: Test Performed by: [facility] [address] [place] [address] [address] [place] [address] CYP2C9 genotype *1/*1 [facility] Comment: Normal level of activity. Drugs metabolized at a normal rate. Test Performed by: [facility] [address] [place] [address] [address] [place] [address] CYP2C9 phenotype Normal MAY [facility] Comment: Test Performed by: [facility] [address] [place] [address] [address] [place] [address] CYP2D6 genotype *2A/*35 [facility] Comment: Increased activity. Drugs converted to active metabolite(s) may cause side effects or toxicity. Active drugs converted to inactive metabolites may lack efficacy. Test Performed by: [facility] [address] [place] [address] [address] [place] [address] CYP2D6 phenotype Rapid [facility] Comment: Test Performed by: [facility] [address] [place] [address] [address] [place] [address] CY genotype *1/*1 [facility] Comment: Normal level of activity. Drugs metabolized at a normal rate. Test Performed by: [facility] [address] [place] [address] [address] [place] [id number] CY phenotype Normal [facility] Comment: Test Performed by: [facility] [address] [place] [address] [address] [place] [address] CY genotype *3/*3 [facility] Comment: Normal dosing may be required because original dosing guidelines for drugs have been established on patients with poor metabolizer phenotype. Test Performed by: [facility] [address] [place] [address] [address] [place] [address] CY phenotype Poor [facility] Comment: Test Performed by: [facility] [address] [place] [address] [address] [place] [id number] NUDT15 genotype [id number] CC [facility] Comment: No increased risk of toxicity of life-threatening toxicities with thiopurine administration related to the NUDT15 genotype. Toxicities with thiopurines can also occur due to impaired TPMT activity, regardless of the NUDT15 status. Test Performed by: [facility] [address] [place] [address] [address] [place] [address] NUDT15 phenotype Normal Risk [facility] Comment: Test Performed by: [facility] [address] [place] [address] [address] [place] [address] UGT1A1 genotype *1/*28 [facility] Comment: Decreased UGT1A1 activity. Increased risk for severe neutropenia with irinotecan, and toxicity and hyperbilirubinemia with nilotinib. Consult drug labeling for dosing recommendations. Genotype also indicates carrier status for Gilbert syndrome, but is not expected to cause marked congenital unconjugated hyperbilirubinemia. Test Performed by: [facility], [place] [address] UGT1A1 phenotype Increased Risk [facility] Comment: Test Performed by: [facility] [address] [place] [address] VKORC1 genotype [id number] GG M [facility] Comment: Normal activity of the Vitamin K epoxide reductase enzyme, associated with the c.-1639GG polymorphism. The VKORC1 genotype together with the CYP2C9 genotype determines the sensitivity to warfarin therapy. Test Performed by: [facility] [address] [place] [address] VKORC1 phenotype Normal activity [facility] Comment: Test Performed by: [facility] [address] [place] [address] [id number] genotype *1/*17 [facility] Comment: Increased activity. Drugs converted to active metabolite(s) may cause side effects or toxicity. Active drugs converted to inactive metabolites may lack efficacy. Test Performed by: [facility] [address] [place] [address] [id number] phenotype Rapid [facility] Comment: Test Performed by: [facility] [address] [place] [address] [id number] genotype *1/*1 [facility] Comment: Normal risk of simvastatin-induced myopathy. Normal function of ZGSS8R5. Test Performed by: [facility] [address] [place] [address] [id number] phenotype Normal Risk [facility] Comment: Test Performed by: [facility] [address] [place] [address] Laboratory Comments See Comment [facility] Comment: No comments. Test Performed by: [facility] [address] [place] [address] Laboratory methods See Comment [facility] Comment: Analytical results were produced using tests developed and validated by [facility], a clinical laboratory located at [address] [place] [address]. These tests have not been cleared or approved by the U.S. Food and Drug Administration. [facility] is certified under CLIA-88 and accredited by the [employer] as qualified to perform high-complexity testing. This test is used for clinical purposes and should not be regarded as investigational or for research. Genomic DNA was analyzed by PCR using [employer] TaqMan(R) and/or Optics 1Q(R) probe-based methods to interrogate the variant locations [...] are associated with more than one haplotype, [facility] infers and reports the most likely diplotype based on published allele frequency and/or ethnicity data. Inferences with potential clinical impact are reported in the Report and laboratory comments section. The variant detection methods validated by [facility] provide >99.9% accuracy; however, PCR may be [...] or pharmacogenomic specialist. For additional support, contact [facility] through the website or by calling [phone]. The interpretations and clinical annotations provided by [facility] are intended solely for use by a medical professional and do not constitute medical advice by [facility]. The treating provider remains ultimately responsible for all diagnosis and treatment decisions for the patient. [facility] disclaims liability for any errors, omissions or ambiguities in any translation or interpretation of a report by a third democrat, including without limitation direct, indirect, incidental, special, [...] and familial factors, various medical conditions, and flpl-pl-ugqb interactions. Administration of any medication, including the ones listed in the [facility] reports, requires careful therapeutic monitoring regardless of the phenotype or genotype-predicted interaction reported. As a matter of practice, [facility] will routinely update its pharmacogenomic database as new information becomes available to the scientific community. Genotype-predicted interactions and annotations found on the patient's [facility] comprehensive test report, [facility] reports, or [facility] specialty reports are therefore dependent on the date of generation and/or the database version used to generate that report. Providers may access these reports with updated annotations using [facility]'s latest released version through the provider portal at [email or web address]. Test Performed by: [facility] [address] [place] [address] 03/12/2017 4:07 PM CDT 03/12/2017 4:07 PM CDT us Historical Provider LAB GENETIC TESTING Final Re sult [facility] [address] [place] [address], [facility] * [facility] 22-gene PGx test (03/11/2017 10:25 AM CDT) [facility] . [facility] Comment: Test ?Result ? Flag ??Unit ??RefValue ? Right[employer] ?Ethnicity ? White or ?Result ?. ?Final Report: See Documents tab in [employer] LastWord ?or Synthesis. ? 03/11/2017 10:2 5 AM CDT 03/11/2017 10:25 AM CDT us Telly Gaines M.D. LAB GENETIC TESTING Final Result Performing Organization Address City/State/[facility] Co de Phone Number [facility] [address] * (ABNORMAL) PROTIME/INR POC-LAB (01/07/2017 8:15 AM LEADERSHIP INTERN) Only the most recent of46 resultswithin the time period is included. INR, POCT, B 2.0(H) 0.8 - 1.2 POWERCHART Blood 01/07/2017 8:15 AM LEADERSHIP INTERN us Telly Gaines M.D. LAB HISTORICAL ORDERS Shakira hoover Result POWERCHART * DX Knee 3 Views (01/06/2017 11:03 AM LEADERSHIP INTERN) Only the most recent of4 resultswithin the time period is included. Anatomical Region Laterality Modality Lower Extremity, Knee N/A Radiograph ic Imaging 01/06/2017 11:0 3 AM LEADERSHIP INTERN Impressions 01/06/2017 11:06 AM LEADERSHIP INTERN Left TKA with patellar resurfacing. No radiographic evidence of loosening. Advanced degenerative arthritis right knee with lateral subluxation at the tibia and patella. Electronically signed by: ?? Prakash Sebastian MD. ??[phone] 06-Jan-2017 11:06 Narrative 01/06/2017 11:06 AM LEADERSHIP INTERN 06-Jan-2017 11:03:00 ??Exam: L Knee 3vw/STDG w/Patella [...] by: Prakash Sebastian MD. [phone] 06-Jan-2017 11:06 us José Antonio Mayfield P.A.-C. IMG DIAGNOSTIC IMAGING P ROCEDURES Final Result * CT Maxillofacial without IV Contrast (11/29/2016 2:57 PM LEADERSHIP INTERN) Anatomical Region Laterality Modality Jaw, Head N/A Computed Tomogra phy 11/29/2016 2:57 PM LEADERSHIP INTERN Impressions 11/29/2016 4:10 PM LEADERSHIP INTERN ??No evidence of abscess within the visualized [...] Electronically signed by: ?? Jayson Moore MD [phone] 29-Nov-2016 16:10 ?Ap Mercer M.D. [phone] 29-Nov-2016 16:10 Narrative 11/29/2016 4:10 PM LEADERSHIP INTERN 29-Nov-2016 14:57:00 ??Exam: CT Maxillofacial wo Indications: ED CENTER 12 / CT FACE. ???abscess ORIGINAL REPORT - 29-Nov-2016 16:10:00 EXAM: ??CT scan of the Maxillofacial region without IV contrast COMPARISON: ??CT head 05/04/2004. Indication right-sided jaw pain, right facial swelling. Procedure Note Ap Urbina M.D. - 02/09/2018 29-Nov-2016 14:57:00 Exam: CT [...] formation. Electronically signed by: Jayson Moore MD [phone] 29-Nov-2016 16:10 Ap Mercer M.D. [id number] 16:10 Alexandra Mcelroy M.D., M.S. IMG CT PROCEDURES Fi nal Result * Cardiac Biomarker Panel (11/29/2016 1:19 PM LEADERSHIP INTERN) Only the most recent of2 resultswithin the time period is included. Delta Interp Not Sig [facility] Comment:No significant delta observed. Troponin Delta 0.00 NG/ML [facility] Troponin T, S <0.01 <0.01 NG/ML [facility] Troponin T 3H, S <0.01 <0.01 NG/ML [facility] Troponin T 6H, S . [facility] Comment:Test canceled. Patie nt discharged - N/C 11/29/2016 1:1 9 PM LEADERSHIP INTERN 11/29/2016 1:19 PM LEADERSHIP INTERN Result [facility] Alexandra Mcelroy M.D., M.S. LAB BLOOD ADD-ON Fin al Result [facility] [address] [place], [place] [id number] [place] [address] * Sedimentation Rate (11/29/2016 1:19 PM LEADERSHIP INTERN) Only the most recent of2 resultswithin the time period is included. Sedimentation Rate, B 24 0 - 29 MM/1 H [facility] 11/29/2016 1:19 PM LEADERSHIP INTERN 11/29/2016 1:19 PM LEADERSHIP INTERN Result [facility] Alexandra Mcelroy M.D., M.S. LAB BLOOD ADD-ON Fin al Result [facility] [address] * (ABNORMAL) Protime/INR, POCT (10/30/2016 10:05 AM LEADERSHIP INTERN) Only the most recent of14 resultswithin the time period is included. INR, POCT, B 2.2(H) 1 - 1 POWERCHART 10/30/2016 10:0 5 AM LEADERSHIP INTERN Telly Gaines M.D. LAB POCT ORDERABLES - KARLI CE Edited Result - Final POWERCHART * ECHOCARDIOLOGY IMAGE EXAM (09/02/2016 3:48 PM CDT) Only the most recent of9 resultswithin the time period is included. Anatomical Region Laterality Modality Other 09/02/2016 3:48 PM CDT Addenda Addendum by ProviderBessy M.D. on 09/02/2016 3:48 PM CDT ECHO^^^MCR TTE FOR GO5 09/02/2016 15:48:00 [facility] Provider IMG NON RAD IMAGING PROCEDUR ES Final Result * Echo Transthoracic (TTE) (09/02/2016 3:32 PM CDT) Anatomical Region Laterality Modality Echocardiography 09/02/2016 3:32 PM CDT Ap Buckley M.D., Ph.D. CV ECHO PROCEDURES F inal Result * CT Abdomen Pelvis without IV Contrast [...] No obstructing mass or calculus disease. Becky Espinoza R.T.(R)(CT), R.T.(R) IMG CT PROCED URES Edited Result - Final * (ABNORMAL) Urinalysis, Midstream, with culture if [...] POWERCHART Ketones, QL(U) Negative Negative POWERCHART Specific Stryker, POCT, U 1.010 1.001 - 1.035 POWERCHART pH, POCT, Urine 6.5 POWERCHART Protein, Ur, Dip Negative Negative POWERCHART Urobilinogen 1.0 0.2 MGDL POWERCHART HXNITRITE Negative Negative POWERCHART HXBLOOD Negative Negative POWERCHART Leukocyte Esterase Negative Negative POWERCHART Urine, First Voided 05/10/2016 9:33 AM CDT Jose A Muller M.D. LAB URINE ORDERABLES Final Re sult POWERCHART * ALT (Alanine Aminotransferase) (05/05/2016 9:58 AM CDT) Only the most recent of5 resultswithin the time period is included. Alanine Aminotransferase (ALT), S 19 7 - 45 U/L [facility] 05/05/2016 9:58 AM CDT 05/05/2016 9:58 AM CDT us Telly Gaines M.D. LAB BLOOD ADD-ON Final Res ult Performing Organization Address City/[facility] Co de Phone Number [facility] [address] * Glucose, Random (05/05/2016 9:58 AM CDT) Only the most recent of2 resultswithin the time period is included. Glucose, S 108 70 - 140 MG/DL [facility] 05/05/2016 9:58 AM CDT 05/05/2016 9:58 AM CDT Telly Gaines M.D. LAB BLOOD TROPONIN Final R esult Performing Organization Address City/[facility] Co de Phone Number [facility] [address] * Calcium, Total (05/05/2016 9:58 AM CDT) Only the most recent of3 resultswithin the time period is included. Calcium, Total, S 9.4 8.9 - 10.1 MG/DL [facility] 05/05/2016 9:58 AM CDT 05/05/2016 9:58 AM CDT us Telly Gaines M.D. LAB BLOOD ADD-ON Final Res ult Performing Organization Address City/[facility]/ZIP Co de Phone Number [facility] [address] * Hemoglobin A1c (05/05/2016 9:57 AM CDT) Only the most recent of2 resultswithin the time period is included. Hemoglobin A1c, B 5.9 4.0 - 6.0 % [facility] 05/05/2016 9:57 AM CDT 05/05/2016 9:57 AM CDT us Telly Gaines M.D. LAB BLOOD ADD-ON Final Res ult [facility] [address] [place] [address], [facility] * BI Ultrasound Exam (05/16/2015 11:24 AM [...] ?? results. ?? Sanjuana Brizuela M.D. ? [facility]/:05/16/2015 11:14:41 ?? letter sent: 1D/2D - Negative [...] her of the results. Sanjuana Brizuela M.D. [facility]/:05/16/2015 11:14:41 letter sent: 1D/2D - Negative Diagnostic OVERALL STUDY BIRADS: 2 Benign Electronically signed by: Prakash Brizuela MD [phone] 16-May-2015 11:24 Telly Gaines M.D. IMG BI PROCEDURES Final Re sult * BI Breast Diagnostic Left (05/16/2015 10:22 [...] her of the results. Sanjuana Brizuela M.D. [facility]/:05/16/2015 11:14:41 letter sent: 1D/2D - Negative Diagnostic OVERALL STUDY BIRADS: 2 Benign Electronically signed by: Prakash Brizuela MD [phone] 16-May-2015 11:24 us Telly Gaines M.D. IMG BI PROCEDURES Final Re sult * BI Breast Screening Bilateral (05/15/2015 11:07 [...] additional imaging. ?? Ryan Silva M.D. ? jacobg/penrad:05/15/2015 14:53:48 ?? letter sent: 0 - Additional [...] 14:55 Telly Gaines M.D. IMG BI PROCEDURES Final Re sult * DX Foot 3+ Views (05/14/2015 12:44 [...] 14-May-2015 12:46 Jean Stewart M.D. IMG DIAGNOSTIC IMAGING PRO CEDURES Final Result * Echo Transthoracic (TTE) (02/26/2015 1:51 PM CDT) Anatomical Region Laterality Modality Echocardiography 02/26/2015 1:51 PM CDT us Ap Buckley M.D., Ph.D. CV ECHO PROCEDURES F inal Result * CT Heart Structure Morphology without and [...] Electronically signed by: ?? Prakash Garcia MD [phone] 26-Feb-2015 11:14 ?Ofelia De La Cruz MD. [...] 26-Feb-2015 11:14 Ofelia De La Cruz MD. [id number] 11:14 Ap Buckley M.D., Ph.D. IMG CT PROCEDURES Fi nal Result * (ABNORMAL) Electrolyte (Chem 4) Panel (12/01/2014 5:16 AM LEADERSHIP INTERN) Only the most recent of9 resultswithin the time period is included. Chloride, S 105 98 - 107 MMOL/L [facility] HX Bicarbonate, P/S 24 22 - 29 MMOL/L [facility] eGFR-Black/Afri can [place] >60 >60 ML/MIN/BSA [facility] BUN (Blood Urea Nitrogen), S 16 6 - 21 MG/DL [facility] Sodium, S 142 135 - 145 MMOL/L [facility] Potassium, S 3.8 3.6 - 5.2 MMOL/L [facility] Creatinine 0.9 0.6 - 1.1 MG/DL [facility] eGFR Non-Black/Afric an [place] >60 >60 ML/MIN/BSA [facility] Anion Gap 13 7 - 15 [facility] Glucose, S 145(H) 70 - 140 MG/DL [facility] 12/01/2014 5:16 AM LEADERSHIP INTERN 12/01/2014 5:16 AM LEADERSHIP INTERN Ap Buckley M.D., Ph.D. LAB BLOOD ADD-ON Fin al Result [facility] [address] [place], [place] [address] * (ABNORMAL) ACT (Activated Clotting Time), POCT (11/30/2014 4:19 PM LEADERSHIP INTERN) Only the most recent of19 resultswithin the time period is included. Activated Clotting Time, POCT 231(H) 84 - 139 SEC [facility] 11/30/2014 4:19 PM LEADERSHIP INTERN 11/30/2014 4:19 PM LEADERSHIP INTERN Historical Provider LAB POCT ORDERABLES - DEVICE Final Result Performing Organization Address [facility] de Phone Number [facility] [address] * Heart Rhythm Procedure - Ablation (11/30/2014 7:59 AM LEADERSHIP INTERN) Anatomical Region Laterality Modality Cardiac Electrop hysiology 11/30/2014 7:59 AM LEADERSHIP INTERN Historical Provider CV ELECTROPHYSIOLOGY PROCS F inal Result * Echo Transesophageal (THU) (11/29/2014 12:20 PM LEADERSHIP INTERN) Anatomical Region Laterality Modality Echocardiography 11/29/2014 12:2 0 PM LEADERSHIP INTERN Ap Buckley M.D., Ph.D. CV ECHO PROCEDURES F inal Result * ABORh, RBC (11/29/2014 8:25 AM LEADERSHIP INTERN) Only the most recent of5 resultswithin the time period is included. HXABO/RH BLOOD TYPE A Pos [facility] 11/29/2014 8:25 AM LEADERSHIP INTERN Historical Provider LAB BLOOD BANK TEST ORDERABL ES Final Result Performing Organization Address [facility]/ZIP Co de Phone Number [facility] [address] * Antibody Screen, RBC (11/29/2014 8:25 AM LEADERSHIP INTERN) Only the most recent of4 resultswithin the time period is included. Antibody Screen Negative [facility] 11/29/2014 8:25 AM LEADERSHIP INTERN us Historical Provider LAB BLOOD BANK TEST ORDERABL ES Final Result [facility] [address] * T4 (Thyroxine), Free (11/29/2014 7:47 AM LEADERSHIP INTERN) T4 (Thyroxine), Free, S 1.4 0.9 - 1.7 NG/DL [facility] 11/29/2014 7:47 AM LEADERSHIP INTERN 11/29/2014 7:47 AM LEADERSHIP INTERN Ap Buckley M.D., Ph.D. LAB BLOOD ADD-ON Fin al Result Performing Organization Address City/[facility]/ZIP Co de Phone Number [facility] [address] * US Lower Extremity Veins (10/23/2014 5:51 PM LEADERSHIP INTERN) Anatomical Region Laterality Modality Vascular, Lower Extremity Ultras ound 10/23/2014 5:51 PM LEADERSHIP INTERN Impressions 10/24/2014 8:24 AM LEADERSHIP INTERN ??Negative for acute DVT. FINDINGS: The common femoral, upper deep femoral, femoral and popliteal veins are widely patent bilaterally, without thrombus. The posterior tibial and peroneal veins were segmentally visualized bilaterally and are normal where seen. The great saphenous veins bilaterally are patent and negative for thrombus. Electronically signed by: ?Yanely Vazquez MD [phone] 23-Oct-2014 19:33 I have reviewed the films/images and agree with the above interpretation. Electronically signed by: ?? Prakash Ritter ?? [phone] 24-Oct-2014 08:24 Narrative 10/24/2014 8:24 AM LEADERSHIP INTERN 23-Oct-2014 17:51:00 ??Exam: US Lower Extremity Veins Comp Indications: ED [id number] US Lower Extremity DVT-BOTH, leg swelling, palpitations, concern for DVT ORIGINAL REPORT - 23-Oct-2014 19:33:00 EXAM: ??US Extremity Duplex Scan Veins Complete with color and spectral Doppler analysis COMPARISON: ??Left lower extremity venous ultrasound 09/17/2011 and right lower extremity venous ultrasound 04/08/2007. Procedure Note Pastor Ritter M.D. - 02/11/2018 23-Oct-2014 17:51:00 Exam: US Lower Extremity Veins Comp Indications: ED [id number] US Lower Extremity DVT-BOTH, leg swelling,palpitations, concern [...] thrombus. Electronically signed by: Alli Vazquez MD [phone] 23-Oct-2014 19:33 I have reviewed the films/images and agree with the above interpretation. Electronically signed by: Prakash Ritter MD [phone] 24-Oct-2014 08:24 Fito Robb M.D. IMG US PROCEDURES Final Result * (ABNORMAL) APTT (Activated Partial Thromboplastin Time) (10/23/2014 4:11 PM LEADERSHIP INTERN) Only the most recent of2 resultswithin the time period is included. APTT, P 42(H) 28 - 38 SEC [facility] 10/23/2014 4:11 PM LEADERSHIP INTERN 10/23/2014 4:11 PM LEADERSHIP INTERN us Fito Robb M.D. LAB BLOOD ADD-ON Final Result [facility] [address] * Rapid Strep A Screen (10/17/2014 8:52 AM LEADERSHIP INTERN) HXRapid Strep Confirmation POWERCHART HXPre Negative for Group A Strep by culture. POWERCHART HXFinal Negative for Group A Strep by culture. POWERCHART Throat 10/17/2014 8:52 AM LEADERSHIP INTERN Historical Provider LAB MICROBIOLOGY - GENERAL O RDERABLES Edited Result - Final Performing Organization Address [facility] de Phone Number POWERCHART * Automated Differential (10/08/2014 11:21 AM LEADERSHIP INTERN) Only the most recent of2 resultswithin the time period is included. Absolute Neutrophils 4.09 1.70 - 7.00 109L POWERCHART Lymphocytes 2.89 0.90 - 2.90 X109L POWERCHART Monocytes 0.62 0.30 - 0.90 X109L POWERCHART Eosinophils 0.24 0.05 - 0.50 X109L POWERCHART Absolute Basophil 0.04 0.00 - 0.30 X109L POWERCHART Blood 10/08/2014 11:2 1 AM LEADERSHIP INTERN 10/08/2014 11:21 AM LEADERSHIP INTERN Sumaya Parekh APRN, C.N.P., D.N.P., R.N. LAB BLOOD ADD-ON Final Result Performing Organization Address [facility] de Phone Number POWERCHART * DX Foot [...] Electronically signed by: ?? Alli Abdi MD [phone] 30-May-2014 08:01 Narrative 05/30/2014 8:01 AM CDT [...] spurs. Electronically signed by: Alli Abdi MD [phone] 30-May-2014 08:01 Jean Stewart M.D. IMG DIAGNOSTIC IMAGING PRO CEDURES Final Result * Outside DX Skeletal (04/13/2014 11:22 AM CDT) Only the most recent of5 resultswithin the time period is included. 04/13/2014 11:2 2 AM CDT Addenda Addendum by Bessy Glroia M.D. on 04/13/2014 11:22 AM CDT ODM^^^MCR XR Foot Left 3 or more views 04/13/2014 11:22:57 Historical Provider IMG DIAGNOSTIC IMAGING PROCE DURES Final Result [facility] [address] [place] [address] * DX Foot Left 3+ Views (04/13/2014 [...] be based on history and clinical findings us Aithai See R.T.(R) IMG DIAGNOSTIC IMAGING PROCED URES Edited Result - Final * Hx general Pathology Report (04/05/2014 1:46 PM CDT) Only the most recent of4 resultswithin the time period is included. 04/05/2014 1:46 PM CDT 04/05/2014 1:46 PM CDT Narrative [facility] - 04/05/2014 1:46 PM CDT ??04/05/2014 General Biopsy ?([id number]) ? Requested By: Leonardo Mckeon, B. Chir. ??[phone] ? Additional Physician: ??Robin Tong M.D. [id number] ? SLIDE DISPOSITION: ? DIAGNOSIS: ?? A. [...] 16:03 Interpreted by: Helder Guerra ??Nayely Bagley [phone] Report electronically signed by Helder Guerra ??Nayely Bagley Transcribed by: [facility] 04/10/2014 15:44:00 ? TISSUE DESCRIPTION: [id number] A1B1C1 ?A. ??Received in formalin labeled with [...] en toto in cassette C1. Grossed by LAS. ? Part A: ??Colon, Ascending, Hepatic Flexure, Transverse, endoscopic biopsy ?1 Asd/HpFx/Trns ?? Part B: ??Stomach, Antrum, Body, Incisura, endoscopic biopsy ?1 Ant/Bd/Inc ?? Part C: ??Stomach, Anterior wall, endoscopic biopsy ?1 Ant Wall ?? GI Path ? Procedure Note 02/09/2018 04/05/2014 General Biopsy ([id number]) Requested By: Leonardo Mckeon, B. [facility]. [phone] Additional Physician: Robin Tong M.D. [id number] SLIDE DISPOSITION: DIAGNOSIS: A. Colon, ascending, hepatic [...] 04/10/2014 16:03 Interpreted by: Helder Bagley M.D. [phone] Report electronically signed by Helder Bagley M.D. Transcribed by: [facility] 04/10/2014 15:44:00 TISSUE DESCRIPTION: [id number] A1B1C1 A. Received in formalin labeled with the patient's name and and labeled as colon-ascending, hepatic flexure, transverse are seven pale horton irregular soft tissue fragments, ranging from 0.3-0.7 cm in greatest dimension. The specimens are submitted en toto in cassette A1. Grossed by LAS. Russell Received in formalin labeled with the patient's name and and labeled as stomach-antrum, body, incisura are seven pale horton irregular soft tissue fragments, ranging from 0.2-0.4 cm in greatest dimension. The specimens are submitted en toto in cassette B1. Grossed by LAS. Hopper Received in formalin labeled with the patient's name and and labeled as stomach-anterior wall is a 0.4 x 0.3 x 0.1 cm pale horton irregular soft tissue fragment. The specimen is submitted en toto in cassette C1. Grossed by Part A: Colon, Ascending, Hepatic Flexure, Transverse, endoscopic biopsy 1 Asd/HpFx/Trns Part B: Stomach, Antrum, Body, Incisura, endoscopic biopsy 1 Ant/Bd/Inc Part C: Stomach, Anterior wall, endoscopic biopsy 1 Ant Wall GI Path Akil Woods. LAB PATHOLOGY/CYTO LOGY ORDERABLES Final Result Performing Organization Address [facility]/ZIP Co de Phone Number [facility] [address] * Colonoscopy (04/05/2014 12:00 PM CDT) 04/05/2014 12:0 0 PM CDT Akil Woods. GI PROCEDURE ORDER DAVID Final Result Performing Organization Address City/[facility]/ZIP Co de Phone Number [address] * Echo Transthoracic (TTE) (02/27/2014 2:49 PM CDT) Anatomical Region Laterality Modality Echocardiography 02/27/2014 2:49 PM CDT Ap Buckley M.D., Ph.D. CV ECHO PROCEDURES F inal Result * Pernicious Anemia [place] (01/22/2014 10:37 AM CDT) [facility] Vitamin B12 Assay, S 628 180 - 914 NG/L [facility] 01/22/2014 10:3 7 AM CDT 01/22/2014 10:37 AM CDT Akil Woods. LAB BLOOD NON ADD- ON Final Result Performing Organization Address City/[facility]/ZIP Co de Phone Number [facility] [address] * 25-Hydroxyvitamin D2 and D3 (01/22/2014 10:37 AM CDT) Pathologist [facility] 25-Hydroxy D Total 27 SeeComment NG/ML [facility] Comment: Reference Range: ? 25-HYDROXY D TOTAL (D2+D3) Optimum levels in the healthy ? population are 20-50, patients with bone disease may ? benefit from higher levels within this range. ? 25-Hydroxy D2 <4.0 NG/ML [facility] 25-Hydroxy D3 27 NG/ML [facility] 01/22/2014 10:3 7 AM CDT 01/22/2014 10:37 AM CDT us Akil Woods. LAB BLOOD ADD-ON F inal Result [facility] [address] [place] [address], [facility] * Alkaline Phosphatase (01/22/2014 10:37 AM CDT) Only the most recent of2 resultswithin the time period is included. Alkaline Phosphatase, S 77 55 - 142 U/L [facility] 01/22/2014 10:3 7 AM CDT 01/22/2014 10:37 AM CDT us Brad Patterson, Akil. LAB BLOOD ADD-ON F inal Result Performing Organization Address City/[facility]/ZIP Co de Phone Number [facility] [address] * Bilirubin, Direct (01/22/2014 10:37 AM CDT) Bilirubin, Direct, S 0.1 0.0 - 0.3 MG/DL [facility] 01/22/2014 10:3 7 AM CDT 01/22/2014 10:37 AM CDT us Akil Woods. LAB BLOOD ADD-ON F inal Result Performing Organization Address City/[facility] Co de Phone Number [facility] [address] * Bilirubin, Total (01/22/2014 10:37 AM CDT) Only the most recent of2 resultswithin the time period is included. Bilirubin, Total, S 0.5 0.1 - 1.0 MG/DL [facility] 01/22/2014 10:3 7 AM CDT 01/22/2014 10:37 AM CDT Akil Cope. LAB BLOOD ADD-ON F inal Result Performing Organization Address City/[facility] Co de Phone Number [facility] [address] * Albumin (01/22/2014 10:37 AM CDT) Only the most recent of3 resultswithin the time period is included. Albumin, S 4.4 3.5 - 5.0 G/DL [facility] 01/22/2014 10:3 7 AM CDT 01/22/2014 10:37 AM CDT us Brad Patterson BClay. LAB BLOOD ADD-ON F inal Result [facility] [address] [place], [place] [id number] [place] [address] * US Abdomen Complete (01/16/2014 11:00 AM LEADERSHIP INTERN) Anatomical Region Laterality Modality Abdomen N/A Ultrasound 01/16/2014 11:0 0 AM [facility]SHIP INTERN Narrative 01/16/2014 11:42 AM [facility]ERSHIP INTERN 16-Jan-2014 11:00:00 ??Exam: US Abdomen Complete Indications: [...] Electronically signed by: ?? Cortney Foreman MD [phone] 16-Jan-2014 11:42 ?Aileen Novoa MD [id number] 16-Jan-2014 11:42 Procedure Note Brennon Novoa M.D. [...] seen. Electronically signed by: Cortney Foreman MD [phone] 16-Jan-2014 11:42 GHarmony Novoa MD [id number] 11:42 Telly Gaines M.D. IMG US PROCEDURES Final Re sult * Troponin T, 5th Generation (12/26/2013 5:34 AM [facility]) Troponin T, S <0.010 -<0.01 ng/mL HX [place] CONVERSION 12/26/2013 5:34 AM [facility] 12/26/2013 5:34 AM [facility] Baron Chavis M.D. LAB BLOOD ADD-ON Final Resul t HX [place] CONVERSION * ECG 12 Lead with rhythm strip (12/26/2013 12:00 AM [facility]) 12/26/2013 Historical Provider ECG ORDERABLES Final Result HX [place] CONVERSION * Nucleated RBC (12/25/2013 10:18 AM [facility]) Nucleated RBC 0.0 /100 WBC HX [place] CONVERSION 12/25/2013 10:1 8 AM MST 12/25/2013 10:18 AM [facility] Historical Provider LAB BLOOD NON ADD-ON Final R esult [place]X [place] CONVERSION * (ABNORMAL) Electrolyte Panel (12/25/2013 10:18 AM [facility]) HCO3, Venous 25 22 - 29 mmol/L [place]X [place] CONVERSION Chloride, S 106 100 - 108 mmol/L [place]X [place] CONVERSION Anion Gap 11 7 - 15 [place]X [place] CONVERSION Potassium, S 3.7(L) 3.8 - 5.0 mmol/L [place]X [place] CONVERSION Sodium, S 142 135 - 145 mmol/L HX [place] CONVERSION 12/25/2013 10:1 8 AM MST 12/25/2013 10:18 AM [facility] Alexandru Rojo Dighton D.O. LAB BLOOD ADD-ON Final Resul t Performing Organization Address [facility]/ZIP Co de Phone Number HX [place] CONVERSION * Protein, Total (12/25/2013 10:18 AM [facility]) Protein, Total, S 7.1 6.3 - 7.9 g/dL HX [place] CONVERSION 12/25/2013 10:1 8 AM MST 12/25/2013 10:18 AM [facility] Alexandru Rojo Dighton D.O. LAB BLOOD ADD-ON Final Resul t [place]X [place] CONVERSION * EP ABL (11/24/2013 9:02 AM [facility]IP INTERN) Anatomical Region Laterality Modality Other 11/24/2013 9:02 AM [facility]IP INTERN Historical Provider IMG NON RAD IMAGING PROCEDUR ES Final Result * Heart Rhythm Procedure - Ablation (11/24/2013 7:47 AM [facility]ADERSHIP INTERN) Anatomical Region Laterality Modality Cardiac Electrop hysiology 11/24/2013 7:47 AM [facility]ERSHIP INTERN Result [facility] Ap Buckley M.D., Ph.D. CV ELECTROPHYSIOLOGY PROCS Final Result * Echo Transesophageal (THU) (11/23/2013 1:21 PM [facility]ERSHIP INTERN) Anatomical Region Laterality Modality Echocardiography 11/23/2013 1:21 PM [facility]ERSHIP INTERN Result [facility] Ap Buckley M.D., Ph.D. CV ECHO PROCEDURES F inal Result * Echo Transthoracic (TTE) (11/23/2013 9:23 AM LE[facility]ERSHIP INTERN) Anatomical Region Laterality Modality Echocardiography 11/23/2013 9:23 AM [facility]SHIP INTERN Result [facility] Ap Buckley M.D., Ph.D. CV ECHO PROCEDURES F inal Result * PUL Home Overnight Oximetry (10/19/2013 3:16 PM [facility]ERSHIP INTERN) 10/19/2013 3:16 PM [facility]IP INTERN Result [facility] Shawn Gutierrez M.D., M.S. PFT ORDERABLES Fi nal Result Performing Organization Address City/State/[facility] Co de Phone Number [facility] [address] [place], [place] [address] * Echo Transesophageal (THU) (09/13/2013 3:40 PM CDT) Anatomical Region Laterality Modality Echocardiography 09/13/2013 3:40 PM CDT Historical Provider CV ECHO PROCEDURES Final Res ult * Fungal Smear (06/27/2013 1:38 PM CDT) HXKOH S/H/N POWERCHART HXFinal No fungal elements seen. POWERCHART HXFinal Reference: No fungal elements seen. POWERCHART Skin 06/27/2013 1:38 PM CDT us Sumaya Oseas Parekh APRN, C.N.P ., D.N.P., R.N. LAB MICROBIOLOGY - GENERAL ORDERABLES Edited Result - Final POWERCHART * MR Chest Angiogram without and with IV Contrast (05/31/2013 9:23 AM CDT) Anatomical Region Laterality Modality Chest N/A Magnetic Resonan ce 05/31/2013 9:2 3 AM CDT Narrative 05/31/2013 11:57 AM CDT [...] Electronically signed by: ?? Reed Mauricio [place] [id number] 31-May-2013 11:57 ?Fredrick Christian MD. ??[phone] 31-May-2013 11:57 Procedure Note Jose A Christian [...] 40 milliliter Electronically signed by: Reed VENTURA [id number] 31-May-2013 11:57 Fredrick Christian MD.[phone] 31-May-2013 11:57 us Ap Buckley M.D., Ph.D. IMG MRI PROCEDURES F inal Result * PUL Home Overnight Oximetry (05/16/2013 11:00 PM CDT) 05/16/2013 11:0 0 PM CDT us Garret Banks M.D. PFT ORDERABLES Final Result [facility] [address] [place] [address], [facility] * PUL Home Overnight Oximetry (05/11/2013 12:13 PM CDT) 05/11/2013 12:1 3 PM CDT Telly Baldwin M.D. PFT ORDERABLES Final Result [facility] [address] [place] [address], [facility] * DX Finger 2+ Views (03/29/2013 11:23 [...] Electronically signed by: ?? Annalisa Zepeda MD [phone] ([id number]) 29-Mar-2013 11:29 Procedure Note Morgan Zepeda [...] IPjoints. Electronically signed by: Annalisa Zepeda MD [phone] ([id number]) 29-Mar-2013 11:29 us Helder Venegas M.D. IMG DIAGNOSTIC IMAGING P ROCEDURES Final Result * Exercise ECG (02/16/2013 8:04 AM CDT) 02/16/2013 8:04 AM CDT us Lukas Pendleton M.D. CV STRESS PROCEDURES Final Result [facility] [address] [place] [address] * Phosphorus Inorganic (02/16/2013 4:41 AM CDT) Phosphorus (Inorganic), S 3.9 2.5 - 4.5 MG/DL [facility] 02/16/2013 4:41 AM CDT 02/16/2013 4:41 AM CDT Mickey Jenkins M.D., Ph.D. LAB BLOOD ADD-ON Final Result [facility] [address] * pH (02/13/2013 11:00 AM CDT) pH 7.41 7.35 - 7.45 PH [facility] 02/13/2013 11:0 0 AM CDT 02/13/2013 11:00 AM CDT us Historical Provider LAB HISTORICAL ORDERS Final Result [facility] [address] * Calcium, Ionized (02/13/2013 11:00 AM CDT) Calcium, Ionized, B 5.00 4.65 - 5.30 MG/DL [facility] 02/13/2013 11:0 0 AM CDT 02/13/2013 11:00 AM CDT us Historical Provider LAB BLOOD NON ADD-ON Final R esult [facility] [address] * PHYSICAL MEDICINE AND REHAB IMAGE EXAM (02/08/2013 7:35 AM CDT) Only the most recent of2 resultswithin the time period is included. Anatomical Region Laterality Modality Other 02/08/2013 7:35 AM CDT Addenda Addendum by ProviderBessy M.D. on 02/08/2013 7:35 AM CDT PMR^^^MCR Guided Injection 02/08/2013 07:35:26 Historical Provider IMG NON RAD IMAGING PROCEDUR ES Final Result * DX Pelvis 1-2 Views (01/12/2013 10:35 AM [facility]ERSHIP INTERN) Anatomical Region Laterality Modality Pelvis N/A Radiographic Airam ging 01/12/2013 10:3 5 AM LE[facility]ERSHIP INTERN Narrative 01/12/2013 10:45 AM [facility]IP INTERN 12-Jan-2013 10:35:00 ??Exam: B Pelvis STDG w [...] 12-Jan-2013 10:45 Harini Pinedo M.D. IMG DIAGNOSTIC IMAGING P ROCEDURES Final Result * Antibody to Extractable Nuclear Antigen Evaluation (01/05/2013 1:56 PM LEADERSHIP INTERN) SS-A/Ro Ab, IgG, S <0.2 <1.0 (Negative) U [facility] SS-B/La Ab, IgG, S <0.2 <1.0 (Negative) U [facility] Scl 70 Ab, IgG, S <0.2 <1.0 (Negative) U [facility] Vida 1 Ab, IgG, S <0.2 <1.0 (Negative) U [facility] Sm Ab, IgG, S <0.2 <1.0 (Negative) U [facility] BISTRO SERVER Ab, IgG, S 0.6 <1.0 (Negative) U [facility] 01/05/2013 1:56 PM [facility]IP INTERN 01/05/2013 1:56 PM [facility]IP INTERN Harini Pinedo M.D. LAB BLOOD ADD-ON Final R esult [facility] [address] * Cyclic Citrullinated Peptide Antibodies, IgG (01/05/2013 1:56 PM [facility]ERSHIP INTERN) Cyclic Citrullinated Peptide Ab, S <15.6 <20.0 (Negative ) U [facility] 01/05/2013 1:56 PM [facility]IP INTERN 01/05/2013 1:56 PM [facility]IP INTERN Harini Pinedo M.D. LAB BLOOD ADD-ON Final R esult [facility] [address] * CK (Creatine Kinase) (01/05/2013 1:56 PM LE[facility]ERSHIP INTERN) Creatine Kinase (CK), S 97 38 - 176 U/L [facility] 01/05/2013 1:56 PM [facility]SHIP INTERN 01/05/2013 1:56 PM [facility]SHIP INTERN Harini Pinedo M.D. LAB BLOOD ADD-ON Final R esult [facility] [address] [place] [address], [facility] * MR Pelvis without IV Contrast (12/20/2012 4:22 PM LE[facility]ERSHIP INTERN) Anatomical Region Laterality Modality Pelvis N/A Magnetic Resonan ce 12/20/2012 4:22 PM [facility]ERSHIP INTERN Narrative 12/20/2012 4:48 PM [facility]IP INTERN 20-Dec-2012 16:22:00 ??Exam: MRI PELVIS wo Indications: [...] Electronically signed by: ?? Jocelyne Garrison ?? [phone] 20-Dec-2012 16:48 Procedure Note Jocelyne Garrison M.D. [...] regions. Electronically signed by: Jocelyne Garrison MD [phone] 20-Dec-2012 16:48 us Charisma Santiago M.D. IMG MRI PROCEDURES Final Re sult * DX Sacroiliac Joints 3+ Views (12/20/2012 12:19 PM [facility]SHIP INTERN) Anatomical Region Laterality Modality Sacral Spine N/A Radiographic Airam ging 12/20/2012 12:1 9 PM [facility]ERSHIP INTERN Narrative 12/20/2012 12:49 PM [facility]ERSHIP INTERN 20-Dec-2012 12:19:00 ??Exam: Pelvis w/Sacro-Iliac obl. 3vw [...] 20-Dec-2012 12:49 Telly Gaines M.D. IMG DIAGNOSTIC IMAGING PRO CEDURES Final Result * FL Esophagram (10/11/2012 1:23 PM LEADERSHIP INTERN) Only the most recent of2 resultswithin the time period is included. Anatomical Region Laterality Modality Gastro Intestinal N/A Radiographic I maging 10/11/2012 1:23 PM LEADERSHIP INTERN Impressions 10/11/2012 1:34 PM LEADERSHIP INTERN Small sliding hiatal hernia and high level spontaneous gastroesophageal reflux. FINDINGS: Normal swallowing mechanism. Esophageal peristalsis is intact. There is a small sliding hiatal hernia and high level spontaneous gastroesophageal reflux. A 13 mm barium tablet passed through the esophagus without difficulty. [id number] Electronically signed by: ?? Ian Zepeda MD [phone] 11-Oct-2012 13:34 Narrative 10/11/2012 1:34 PM [facility]ERSHIP INTERN 11-Oct-2012 13:23:00 ??Exam: GI-Esophagram Indications: Dysphagia NOS [...] by: Ian Zepeda MD [phone] 11-Oct-2012 13:34 Nayely Velasquez IIIG FLUOROSCOPY PROCEDUR ES Final Result * DX Hip to Ankle Standing (09/12/2012 [...] Electronically signed by: ?? Annalisa Zepeda MD [phone] ([id number]) 12-Sep-2012 13:37 Procedure Note Morgan Zepeda [...] osteopenia. Electronically signed by: Annalisa Zepeda MD [phone] ([id number]) 12-Sep-2012 13:37 Jose Chung M.D. IMJanet DIAGNOSTIC IMAGING PROCED URES Final Result * BI Breast Screening (08/23/2012 12:57 PM [...] Negative Electronically signed by: ?? Prakash Mathur ??MD 23-Aug-2012 14:10 Narrative 08/23/2012 2:10 PM CDT [...] her of the results. Prakash Mathur M.D. [facility]:08/23/2012 14:09:19 letter sent: 1S/2S - Negative Screen Mammogram BI-RADS: 1 Negative Electronically signed by: Prakash Mathur MD 23-Aug-2012 14:10 Telly Gaines M.D. IMG BI PROCEDURES Final Re sult * HSV/VZV Direct Smear (08/19/2012 3:11 PM CDT) Source lower lip POWERCHART HXHSV/VZV Result-[place] See Comment Not applicable POWERCHART Comment: Negative for Herpes simplex type I and II DNA and Varicella zoster DNA. Analyte Specific Reagent. This test was developed and its performance characteristics determined by [facility]. It has not been cleared or approved by the U.S. Food and Drug Administration. Test Performed by: [address] [address] Strategic Partnership Representative: Saad Coleman III, M.D. [place] Review 08/19/2012 3:11 PM CDT us Sumaya Parekh APRN, C.N.P ., D.N.P., R.N. LAB MICROBIOLOGY - GENERAL ORDERABLES Final Result POWERCHART * DX Knee 2 Views (02/26/2012 [...] in the pelvis. Electronically signed by: ?? SHarmonyLacho MD [phone] ([id number]) 26-Feb-2012 13:44 Procedure Note Raul Monk M.D. [...] the pelvis. Electronically signed by: Marycruz RUBIO [phone] ([id number]) 26-Feb-2012 13:44 Jose Chung M.D. IMG DIAGNOSTIC IMAGING PROCED URES Final Result * DX Shoulder 2+ Views (02/17/2012 5:06 [...] union. Electronically signed by: Berta Dior MD [phone] 18-Feb-2012 07:39 us Joaquín Parekh D.O. IMG DIAGNOSTIC IMAGING PRO CEDURES Final Result * DX Clavicle Serendipity 1 View (12/27/2011 7:16 PM LEADERSHIP INTERN) Anatomical Region Laterality Modality Upper Extremity, Clavicle N/A Radiog raphic Imaging 12/27/2011 7:16 PM LEADERSHIP INTERN Narrative 12/27/2011 7:44 PM [facility]ERSHIP INTERN 27-Dec-2011 19:16:00 ??Exam: R Clavicle 1vw Serendipity [...] Electronically signed by: ?? Michael Smalls MD [phone] 27-Dec-2011 19:24 I have reviewed the films/images and agree with the above interpretation. Electronically signed by: ?? Prakash Pitts MD [phone] 27-Dec-2011 19:44 Procedure Note Jean Pitts M.D. [...] today. Electronically signed by: Michael Smalls MD [phone] 27-Dec-2011 19:24 I have reviewed the films/images and agree with the above interpretation. Electronically signed by: Prakash Pitts MD [id number] 27-Dec-2011 19:44 Michael Cardoza M.D. IM DIAGNOSTIC IMAGING PROCEDU RES Final Result * DX Clavicle (12/27/2011 2:53 PM LEADERSHIP INTERN) Anatomical Region Laterality Modality Upper Extremity, Shoulder, Clavicle N/A Radiographic Imaging 12/27/2011 2:53 PM LEADERSHIP INTERN Narrative 12/27/2011 4:41 PM LEADERSHIP INTERN 27-Dec-2011 14:53:00 ??Exam: R Clavicles Upright Landscape [...] Electronically signed by: ?? Reed Thurston MD [phone] 27-Dec-2011 15:00 I have reviewed the films/images and agree with the above interpretation. Electronically signed by: ?? Prakash Pitts MD [id number] 27-Dec-2011 16:41 Procedure Note Jean Pitts M.D. - 02/12/2018 27-Dec-2011 14:53:00 Exam: R Clavicles Upright Landscape Indications: clavicle fracture ?shifted, has right clavicle shifted?difficulty swallowing ORIGINAL REPORT - 27-Dec-2011 15:00:00 Right Clavicles Upright Landscape Orientation, 2vw: Comminuted fracture through the distal right clavicle. The rightacromioclavicular joint is slightly wider compared to the left (8mm [id number]). the distal aspect of the proximal clavicular fragment is [id number]. The sternoclavicular articulations appear intact. Electronically signed by: Reed Thurston MD [phone] 27-Dec-2011 15:00 I have reviewed the films/images and agree with the above interpretation. Electronically signed by: Prakash Pitts MD [id number] 27-Dec-2011 16:41 Ap Gomes M.D. IMJanet DIAGNOSTIC IMAGING PRO CEDURES Final Result * Outside DX Chest (12/16/2011 1:44 AM LEADERSHIP INTERN) 12/16/2011 1:44 AM LEADERSHIP INTERN Addenda Addendum by Bessy Gloria M.D. on 12/16/2011 1:44 AM LEADERSHIP INTERN ODM^^^MCR CLAVICLE, RIGHT Complete 12/16/2011 01:44:10 [facility] Provider IMG DIAGNOSTIC IMAGING PROCE DURES Final Result [facility] [address] [place] [address] * NM Lung Ventilation and Perfusion (09/25/2011 5:24 PM LEADERSHIP INTERN) Anatomical Region Laterality Modality Chest N/A Nuclear Medicine 09/25/2011 5:24 PM LEADERSHIP INTERN Addenda Addendum by Fanny Méndez M.D. on 09/25/2011 9:54 PM LEADERSHIP INTERN APPENDED REPORT - 25-Sep-2011 21:54:00 Perfusion abnormalities appear to be matched on first breath images. ?? Agree with the interpretation that the probablity of PE is low. Electronically signed by: ?? Fanny Méndez MD [id number] 25-Sep-2011 21:54 Impressions 09/25/2011 9:54 PM LEADERSHIP INTERN Low probability VQ scan. FINDINGS: Nonsegmental perfusion [...] Electronically signed by: ?? Annalisa Zepeda MD [phone] ([id number]) 25-Sep-2011 20:56 Narrative 09/25/2011 9:54 PM LEADERSHIP INTERN 25-Sep-2011 17:24:00 ??Exam: NM Lung Scan V/Q [...] millicurie Electronically signed by: Annalisa Zepeda MD [phone] ([id number]) 25-Sep-2011 20:56 Jose A OCHOA NM PROCEDURES Edited Res ult - Final * Echocardiogram (09/21/2011 2:05 PM LEADERSHIP INTERN) Anatomical Region Laterality Modality Echocardiography 09/21/2011 2:05 PM LEADERSHIP INTERN us Historical Provider CV ECHO PROCEDURES Final Res ult * DX Wrist 2 Views (09/21/2011 5:32 AM LEADERSHIP INTERN) Anatomical Region Laterality Modality Radiographic Airam ging 09/21/2011 5:32 AM LEADERSHIP INTERN Narrative 09/21/2011 9:29 AM LEADERSHIP INTERN 21-Sep-2011 05:32:00 ??Exam: R Wrist 2vw PA/Lat [...] Kvng Ramírez MD. [phone] 21-Sep-2011 09:29 Maru Jeffery M.D. IMG DIAGNOSTIC IMAGING PROCED URES Edited Result - Final * US Extremity Veins (09/17/2011 12:59 PM [...] Enamorado MD ??[phone] 17-Sep-2011 13:47 ?Eva RUBIO [phone] [id number] 17-Sep-2011 13:47 Procedure Note Jan Enamorado [...] by: Donn Enamorado MD [id number] 17-Sep-2011 13:47 Eva RUBIO [phone] 17-Sep-2011 13:47 us Ap Retana M.D., M.S. IMG US PROCEDURES Fin al Result * DX Hand 2 Views And Wrist 2 Views (08/20/2011 11:23 AM CDT) Anatomical Region Laterality Modality Radiographic Airam ging 08/20/2011 11:2 3 AM CDT Narrative [...] signed by: ?? Alli Abdi MD [id number] 20-Aug-2011 11:32 Procedure Note Dionte Abdi M.D. [...] 20-Aug-2011 11:32 Telly Gaines M.D. IMG DIAGNOSTIC IMAGING PRO CEDURES Final Result * DX Knee Standing 4 Views (08/13/2011 2:16 PM CDT) Anatomical Region Laterality Modality Radiographic Airam ging 08/13/2011 2:16 PM CDT Narrative 08/13/2011 [...] MD [phone] 13-Aug-2011 14:18 Cheri Humphrey M.D. IM DIAGNOSTIC IMAGING PROC EDURES Final Result * Interpretation of Outside DX Extremity (06/04/2010 10:26 AM CDT) Anatomical Region Laterality Modality N/A Radiographic Airam ging 06/04/2010 10:2 6 AM CDT Narrative [...] by: Ofelia Mccoy MD [id number] 04-Jun-2010 11:21 us Librado Geronimo M.D. IMJanet DIAGNOSTIC IMAGING PROC EDURES Final Result * DX Knee Right 3 Views (05/16/2010 [...] in the right knee as described above. us Aithai See R.T.(R) IMG DIAGNOSTIC IMAGING PROCED URES Edited Result - Final * DX Knee Left 3 Views (05/16/2010 [...] lateral compartments with spurring. 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 There is no knee joint effusion. There is no subluxation or patellar tilt identified. ?? 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 Procedure Note Mickey Rey M.D. / Bessy Gloria M.D. - 04/08/2017 Exam: XR KNEE LEFT 3 VIEWS Clinical history: Knee pain Comparison: None Findings: There is moderate to severe narrowing of the medial joint compartment with minimal spurring. There's pseudowidening of the lateral compartments with spurring. There is significant apsrrlio-qx-bhbnkj patellofemoral joint disease with trochlear patellar spurs. There is no knee joint effusion. There is no subluxation or patellar tilt identified. 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 us Aithai See R.T.(R) IMG DIAGNOSTIC IMAGING PROCED URES Edited Result - Final * US ASPIRATION INJECTION JOINT (06/12/2009 2:53 [...] Electronically signed by: ?? Aileen Asencio MD [id number] 12-Jun-2009 17:25 Procedure Note Milla Asencio M.D. [...] of 0.5cc of ropivacaine and 0.5cc of Bvtewix37lo/mL was administered. Fluid is noted to track around the tendon withinthe sheath. No complications. Electronically signed by: Aileen Asencio MD [id number] 12-Jun-2009 17:25 Alejandro Verduzco D.D.S., Ph.D. IMG US PROCEDURES F inal Result * US Non Vascular Extremity (06/12/2009 2:24 [...] Electronically signed by: ?? Aileen Asencio MD [id number] 12-Jun-2009 17:25 Procedure Note Milla Asencio M.D. [...] of 0.5cc of ropivacaine and 0.5cc of Mfofthb35ok/mL was administered. Fluid is noted to track around the tendon withinthe sheath. No complications. Electronically signed by: Aileen Asencio MD [id number] 12-Jun-2009 17:25 us Alejandro Verduzco D.D.S., Ph.D. IMG US PROCEDURES F inal Result * XR Foot Right 3 or more views (04/22/2009 9:30 AM CDT) Anatomical Region Laterality Modality Other 04/22/2009 9:30 AM CDT us Historical Provider IMG NON RAD IMAGING PROCEDUR ES Edited Result - Final * DX Foot Right 3+ Views (04/22/2009 [...] small calcaneal spur. ? Procedure Note Provider, Nayely Doherty - 04/20/2017 Originally Signed By UNKNOWN, PERSONNEL [...] negative right foot. Historical Provider IMG DIAGNOSTIC IMAGING PROCE LESLY Final Result * BI Breast Diagnostic (07/12/2008 10:14 AM [...] ??P3,P4.1,D2,M1,U1,L1D Electronically signed by: ?? Sivan Silva MD.[id number] 12-Jul-2008 12:08 Procedure Note Sivan Silva M.B., [...] Benign. P3,P4.1,D2,M1,U1,L1D Electronically signed by: Sivan Silva MD.[id number] 12-Jul-2008 12:08 us eTlly Gaines M.D. IMG BI PROCEDURES Final Re sult * Polysomnography (PSG) (11/20/2007 10:38 PM LEADERSHIP INTERN) 11/20/2007 10:3 8 PM LEADERSHIP INTERN us Storm Alejandra M.D. [facility] ORDERABLES Final Result Performing Organization Address [facility] Co de Phone Number [address] * Echocardiogram (11/16/2007 12:32 PM LEADERSHIP INTERN) Anatomical Region Laterality Modality Echocardiography 11/16/2007 12:3 2 PM LEADERSHIP INTERN us Historical Provider CV ECHO PROCEDURES Final Res ult * PUL Home Overnight Oximetry (11/15/2007 10:45 PM LEADERSHIP INTERN) 11/15/2007 10:4 5 PM LEADERSHIP INTERN us Telly Montalvo M.D. PFT ORDERABLES Final Result [facility] [address] [place], [place] [id number] [place] [address] * FL Swallow Function and Esophagram with Video (03/14/2007 9:02 AM CDT) Anatomical Region Laterality Modality Gastro Intestinal N/A Radiographic I maging 03/14/2007 9:02 AM CDT Narrative 03/14/2007 10:31 AM CDT 14-Mar-2007 09:02:00 ??Exam: BR-Nlzddsxzu-Umjrg Study Indications: cough ORIGINAL REPORT - 14-Mar-2007 [...] Pitts M.D. - 02/15/2018 14-Mar-2007 09:02:00 Exam: TW-Bwzorzvcy-Tgtms Study Indications: cough ORIGINAL REPORT - 14-Mar-2007 10:31:00 Air contrast barium esophagram shows a small amount of gastroesophagealreflux in the recumbent position. Esophageal peristalsis is normal.Esophagus otherwise negative. Incidentally noted is a prominent anteriorcervical osteophyte at the C4 interspace level which causes an impressionon the posterior pharynx. Electronically signed by: Prakash Pitts MD [id number] 14-Mar-2007 10:31 Jean Lara M.D. IMG FLUOROSCOPY PROCEDURES Final Result * Pulmonary Function Tests (03/08/2007 2:55 PM CDT) 03/08/2007 2:55 PM CDT Mike Lopez M.D. PFT ORDERABLES Final Result Performing Organization Address City/[facility]/ZIP Co de Phone Number [facility] [address] [place], [place] [id number] [place] [address] * DX Abdomen 1 View (12/21/2006 11:47 AM LEADERSHIP INTERN) Anatomical Region Laterality Modality Abdomen N/A Radiographic Airam ging 12/21/2006 11:4 7 AM LEADERSHIP INTERN Narrative 12/21/2006 12:56 PM [facility] 21-Dec-2006 11:47:00 ??Exam: Abdomen Indications: nausea and [...] Vishnu Hathaway M.D. 21-Dec-2006 12:56 Rula Mckay APRN C.N.P., D.N.P. IMG DIAGNOSTIC IMAGING PROCEDURES Final Result * BI Aspiration (05/20/2006 11:16 AM CDT) [...] Electronically signed by: ?? Ian Martinez MD. [id number] 20-May-2006 12:00 Narrative 05/20/2006 12:00 PM CDT [...] of the right periareolar region demonstrates a [id number] complicated cyst with probable internal debris. Both [...] sonography of the right periareolar region demonstrates [id number] complicated cyst with probable internal debris. Both [...] MD. [id number] 20-May-2006 12:00 Telly Gaines M.D. IMJanet BI PROCEDURES Final Re sult * MR Lower Extremity (08/12/2004 4:31 PM [...] [id number] [id number] Electronically signed by: Jorge Adler 12-Aug-2004 20:39 Rula Mckay APRN, C.N.P., D.N.P. IM MRI PROCEDU RES Final Result * DX Knee 4+ Views (08/12/2004 3:45 [...] by: Jocelyne Garrison MD [id number] 12-Aug-2004 15:56 us Rula Mckay APRN C.N.P., D.N.P. IMG DIAGNOSTIC IMAGING PROCEDURES Final Result * Pulmonary Function Tests (01/18/2003 4:04 PM LEADERSHIP INTERN) 01/18/2003 4:04 PM LEADERSHIP INTERN us Librado Lacy M.D. PFT ORDERABLES Final Result Performing Organization Address City/[facility] Co de Phone Number [facility] [address] * Pulmonary Function Tests (01/18/2003 7:21 AM LEADERSHIP INTERN) 01/18/2003 7:21 AM LEADERSHIP INTERN us Librado Lacy M.D. PFT ORDERABLES Final Result Performing Organization Address [facility] de Phone Number [facility] [address] * Cytology (12/06/2001 3:41 PM LEADERSHIP INTERN) Only the most recent of3 resultswithin the time period is included. 12/06/2001 3:41 PM LEADERSHIP INTERN 12/06/2001 3:41 PM LEADERSHIP INTERN Narrative [facility] - 12/06/2001 3:41 PM LEADERSHIP INTERN 06Dec2001 Cytology Gynecological Requested By: ? Simón Lorenzo C.N.P. ? ([id number]) ?? DIAGNOSIS: ?Vaginal Smear ?Satisfactory for evaluation. ?Within Normal Limits. ?[id number] ? Agnieszka Espino, CT(ASCP) ?[id number] ? GLK ??[id number]:sbr Procedure Note 02/07/2018 06Dec2001 Cytology Gynecological Requested By: Simón Lorenzo C.N.P.([id number]) DIAGNOSIS: Vaginal Smear Satisfactory for evaluation. Within Normal Limits. 07Dec2001 Agnieszka Espino, CT(ASCP) 07Dec2001 GLK 04352:sbr us Simón Lorenzo LAB PATHOLOGY/CYTOLOGY ORDERABLE S Final Result Performing Organization Address [facility]/State/[facility] Co de Phone Number [facility] [address] * MR Lumbar Spine without IV Contrast (10/24/2001 8:26 AM LEADERSHIP INTERN) Anatomical Region Laterality Modality Lumbar Spine N/A Magnetic Resonan ce 10/24/2001 8:26 AM LEADERSHIP INTERN Narrative 10/24/2001 10:14 AM LEADERSHIP INTERN 24-Oct-2001 08:26:00 ??Exam: MRI LUMBAR Sp Indications: [...] tear. ?? (RVU 208) Ind: 333.999 ?? [id number] ?? Electronically signed by: ?? Ryan Chow MD. ??[phone] 24-Oct-2001 10:14 Procedure Note Gerardo Chow M.D. - 02/18/2018 24-Oct-2001 08:26:00 Exam: MRI LUMBAR Sp Indications: lumbosacral spine^pain, ?L5 radiculopathy ORIGINAL REPORT - 24-Oct-2001 10:14:00 MRI lumbar spine demonstrates mild degenerative changes involving lumbarinterspaces. No evidence of focal disk protrusion. Advanced degenerativechanges in the L4-L5 facet joints, more severe on the right associatedwith minimal anterior subluxation of L4 on L5. Posterior midline R1zoimdqn tear. (RVU 208) Ind: 333.999 [id number] Electronically signed by: Ryan Chow MD. [phone] 24-Oct-2001 10:14 Joaquín Parekh D.O. IMG MRI PROCEDURES Final R esult * DX Lumbar Spine 4+ Views (07/06/2001 1:26 PM CDT) Anatomical Region Laterality Modality Lumbar Spine N/A Radiographic Airam ging 07/06/2001 1:26 PM CDT Narrative 07/06/2001 [...] narrowed. Electronically signed by: Ofelia Henderson MD. [phone] 06-Jul-2001 14:48 Joaquín OCHOA DIAGNOSTIC IMAGING PRO CEDURES Final Result * HX issa Surg Bld Order (12/02/1999 6:40 AM LEADERSHIP INTERN) 12/02/1999 6:40 AM LEADERSHIP INTERN 12/02/1999 7:29 AM LEADERSHIP INTERN Narrative [facility] - 12/02/1999 6:40 AM LEADERSHIP INTERN 02 Dec 1999 ?[id number] ?Ro ?06:40 ?? Std Surg Bld Order: ?ABO/RH ? A POS ?Antibody Screen ?Neg Procedure Note 03/02/2018 02 Dec 1999 [id number] Ro 06:40 Std Surg Bld Order: ABO/RH A POS Antibody Screen Neg Historical Provider LAB HISTORICAL ORDERS Final Result [facility] [address] * US Pelvis Transvaginal and Transabdominal (10/24/1999 2:38 PM LEADERSHIP INTERN) Anatomical Region Laterality Modality Pelvis N/A Ultrasound 10/24/1999 2:38 PM LEADERSHIP INTERN Narrative 10/24/1999 3:18 PM LEADERSHIP INTERN 24-Oct-1999 14:38:00 ??Exam: US Pelvis with Transvaginal [...] ??[id number] 24-Oct-1999 15:18 ?Hollie Chiang MD [phone] (R64) 24-Oct-1999 15:18 Procedure Note Ronaldo Hopson [...] [id number] Electronically signed by: Willis Hopson MD. [phone] 24-Oct-1999 15:18 Hollie Chiang [phone] ([id number]) 24-Oct-1999 15:18 Rula Mckay APRN, C.N.P., D.N.P. [facility] US PROCEDUR ES Final Result * Dermatopathology (10/29/1995 1:37 PM LEADERSHIP INTERN) 10/29/1995 1:37 PM LEADERSHIP INTERN 10/29/1995 1:37 PM LEADERSHIP INTERN Narrative [facility] - 10/29/1995 1:37 PM LEADERSHIP INTERN [id number] Dermatopathology Primary Manager Storage: ??TETE Bryant ? ([id number]) Requested By: ? TETE Bryant Procedure Performed By: TETE Bryant ?? ANATOMIC SITE OF TISSUE: LEFT HIP ?? [id number] ?? DIAGNOSTIC IMPRESSION: ?? compound nevus with erosion ?? [id number] ?Partha Bernal M.D.:ers Procedure Note 02/05/2018 [id number] Dermatopathology Primary Manager Storage: TETE Bryant([id number]) Requested By: TETE Bryant Procedure Performed By: TETE Bryant ANATOMIC SITE OF TISSUE: LEFT HIP [id number] DIAGNOSTIC IMPRESSION: compound nevus with erosion [id number] Partha Bernal M.D.:ers Vinay Velarde C.N.P., N.P., R.N. LAB PATH DERM ORD ERABLES Final Result Performing Organization Address City/State/[facility] Co de Phone Number [facility] [address] [place] [address], [facility] Visit Diagnoses Diagnosis Start Date Atrial [...] 01/06/2018 Monitoring For Therapeutic Drug Therapy 01/06/2018 Assisted (Current) Anticoagulant Treatment 01/06/2018 Anticoagulant Therapy 01/06/2018 Monitoring For Therapeutic Drug Therapy 01/07/2018 Assisted (Current) Anticoagulant Treatment 01/07/2018 Atrial Fibrillation Unspecified [...] Therapy 01/19/2018 Atrial Fibrillation Unspecified (HCC) 01/19/2018 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) Anticoagulant Treatment 01/19/2018 Anticoagulant Therapy 02/03/2018 Monitoring For Therapeutic Drug Therapy 02/03/2018 Atrial Fibrillation Unspecified (HCC) 02/03/2018 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) Anticoagulant Treatment 02/03/2018 Screening Mammogram Breast Cancer 02/24/2018 Atrial Fibrillation Unspecified (HCC) 03/24/2018 Monitoring For Therapeutic Drug Therapy 03/24/2018 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) Anticoagulant Treatment 03/24/2018 Anticoagulant Therapy 03/24/2018 [...] 07/07/2018 Monitoring For Therapeutic Drug Therapy 07/07/2018 Assisted (Current) Anticoagulant Treatment 07/07/2018 Anticoagulant Therapy 07/07/2018 Atrial Fibrillation Unspecified (HCC) 07/13/2018 Atrial Fibrillation Unspecified (HCC) 07/13/2018 Atrial Fibrillation Unspecified (HCC) 07/14/2018 Sleep Apnea 07/25/2018 Atrial Fibrillation Unspecified (HCC) 07/25/2018 Maintenance Health Adult 07/25/2018 Atrial Fibrillation Unspecified (HCC) 07/25/2018 Atrial Fibrillation Unspecified (HCC) 07/28/2018 Monitoring For Therapeutic Drug Therapy 07/28/2018 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) Anticoagulant Treatment 07/28/2018 Anticoagulant Therapy 07/28/2018 Anticoagulant Therapy 08/01/2018 Atrial Fibrillation Unspecified (HCC) 08/01/2018 Assisted (Current) Anticoagulant Treatment 08/01/2018 Anticoagulant Therapy 08/01/2018 Monitoring For Therapeutic Drug Therapy 08/01/2018 Atrial Fibrillation Unspecified (HCC) 08/01/2018 Atrial Fibrillation Unspecified (HCC) 08/03/2018 Need Vaccine Immunization Influenza 08/25/2018 Apnea Sleep Obstructive 09/14/2018 Snoring 09/14/2018 Fatigue 09/14/2018 Sleep Disorder 09/14/2018 Thrombosis Deep Vein Acute Calf Right (HCC) 09/15/2018 Monitoring For Therapeutic Drug Therapy 09/15/2018 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) Anticoagulant Treatment 09/15/2018 Thrombosis Deep Vein Acute Calf Right (HCC) 09/15/2018 Assisted (Current) Anticoagulant Treatment 09/15/2018 Monitoring For Therapeutic Drug Therapy 09/15/2018 Apnea Sleep Obstructive 09/15/2018 Atrial Fibrillation Unspecified (HCC) 09/15/2018 Monitoring For Therapeutic Drug Therapy 09/15/2018 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) Anticoagulant Treatment 09/15/2018 Anticoagulant Therapy 09/15/2018 Thrombosis Deep Vein Acute Calf Right (HCC) 09/15/2018 Apnea Sleep Obstructive 09/16/2018 Insomnia 09/16/2018 Fatigue 09/16/2018 Restless Leg Syndrome 09/16/2018 Atrial Fibrillation Unspecified (HCC) 09/19/2018 Monitoring For Therapeutic Drug Therapy 09/19/2018 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) Anticoagulant Treatment 09/19/2018 Anticoagulant Therapy 09/19/2018 Thrombosis Deep Vein Acute Calf Right (HCC) 09/19/2018 Atrial Fibrillation Unspecified (HCC) 09/22/2018 Monitoring For Therapeutic Drug Therapy 09/22/2018 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) Anticoagulant Treatment 09/22/2018 Anticoagulant Therapy 09/22/2018 Thrombosis Deep Vein Acute Calf Right (HCC) 09/22/2018 Thrombosis Deep Vein Acute Calf Right (HCC) 09/28/2018 Monitoring For Therapeutic Drug Therapy 09/28/2018 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) Anticoagulant Treatment 09/28/2018 Assisted (Current) Anticoagulant Treatment 10/07/2018 Monitoring For Therapeutic Drug Therapy 10/07/2018 Thrombosis Deep Vein Acute Calf Right (HCC) 10/07/2018 Atrial Fibrillation Unspecified (HCC) 10/20/2018 Monitoring For Therapeutic Drug Therapy 10/20/2018 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) Anticoagulant Treatment 10/20/2018 Anticoagulant Therapy 10/20/2018 Thrombosis Deep Vein Acute Calf Right (HCC) 10/20/2018 Thrombosis Deep Vein Acute Calf Right (HCC) 10/27/2018 Monitoring For Therapeutic Drug Therapy 10/27/2018 Assisted (Current) Anticoagulant Treatment 10/27/2018 Atrial Fibrillation Unspecified (HCC) 10/31/2018 Atrial Fibrillation Unspecified (HCC) 10/31/2018 Atrial Fibrillation Unspecified (HCC) 11/03/2018 Monitoring For Therapeutic Drug Therapy 11/03/2018 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) Anticoagulant Treatment 11/03/2018 Anticoagulant Therapy 11/03/2018 Thrombosis Deep Vein Acute Calf Right (HCC) 11/03/2018 Assisted (Current) Anticoagulant Treatment 11/03/2018 Monitoring For Therapeutic Drug Therapy 11/03/2018 Thrombosis Deep Vein Acute Calf Right (HCC) 11/03/2018 Thrombosis Deep Vein Acute Calf Right (HCC) 11/17/2018 Monitoring For Therapeutic Drug Therapy 11/17/2018 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) Anticoagulant Treatment 11/17/2018 Thrombosis Deep Vein Acute Calf Right (HCC) 12/01/2018 Monitoring For Therapeutic Drug Therapy 12/01/2018 Assisted (Current) Anticoagulant Treatment 12/01/2018 Primary Osteoarthritis Knee Right 12/02/2018 Rotator Cuff Disorder Right 12/02/2018 Primary Osteoarthritis Knee Right 12/02/2018 Rotator Cuff Disorder Right 12/02/2018 Preoperative Exam 12/02/2018 Sleep Apnea 12/02/2018 Maintenance Health Adult 12/02/2018 Hypertensive Heart Disease With Heart Failure (HCC) 12/02/2018 Hyperlipidemia 12/02/2018 Assisted (Current) Anticoagulant Treatment 12/02/2018 Assisted (Current) Anticoagulant Treatment 12/21/2018 Monitoring For Therapeutic Drug Therapy 12/21/2018 Thrombosis Deep Vein Acute Calf Right (HCC) 12/21/2018 Rotator Cuff Disorder Right 12/21/2018 Pain Shoulder Right 12/21/2018 Primary Osteoarthritis Shoulder Right 12/21/2018 Tear Rotator Cuff Initial Right 12/21/2018 Thrombosis Deep Vein Acute Calf Right (HCC) 01/05/2019 Monitoring For Therapeutic Drug Therapy 01/05/2019 Assisted (Current) Anticoagulant Treatment 01/05/2019 Atrial Fibrillation Unspecified (HCC) 02/16/2019 Monitoring For Therapeutic Drug Therapy 02/16/2019 Assisted (Current) Anticoagulant Treatment 02/16/2019 Anticoagulant Therapy 02/16/2019 [...] 03/09/2019 Monitoring For Therapeutic Drug Therapy 03/09/2019 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) Anticoagulant Treatment 03/09/2019 Atrial Fibrillation Unspecified (HCC) 03/15/2019 Pain Chest 03/15/2019 Pain Chest 03/28/2019 Atrial Fibrillation Paroxysmal (HCC) 03/28/2019 Other Heart Disorders In Diseases Classified Elsewhere 03/28/2019 Pain Chest 03/28/2019 Primary Osteoarthritis Knee Right 04/17/2019 Atrial Fibrillation Unspecified (HCC) 04/27/2019 Monitoring For Therapeutic Drug Therapy 04/27/2019 Assisted (Current) Anticoagulant Treatment 04/27/2019 Anticoagulant Therapy 04/27/2019 Thrombosis Deep Vein Acute Calf Right (HCC) 04/27/2019 Hyperlipidemia 05/11/2019 Thrombosis Deep Vein Acute Calf Right (HCC) 05/11/2019 Monitoring For Therapeutic Drug Therapy 05/11/2019 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) Anticoagulant Treatment 05/11/2019 Pain Breast 05/15/2019 Sleep Apnea 05/15/2019 Pain Breast 05/16/2019 Pain Breast 05/16/2019 Atrial Fibrillation Unspecified (HCC) 05/25/2019 Monitoring For Therapeutic Drug Therapy 05/25/2019 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) Anticoagulant Treatment 05/25/2019 Anticoagulant Therapy 05/25/2019 Thrombosis Deep Vein Acute Calf Right (HCC) 05/25/2019 Apnea Sleep Obstructive 06/08/2019 Thrombosis Deep Vein Acute Calf Right (HCC) 06/15/2019 Monitoring For Therapeutic Drug Therapy 06/15/2019 Assisted (Current) Anticoagulant Treatment 06/15/2019 Primary Osteoarthritis Knee Right 07/03/2019 Primary Osteoarthritis Knee Right 07/03/2019 Viral Syndrome 07/03/2019 Thrombosis Deep Vein Acute Calf Right (HCC) 07/03/2019 Sleep Apnea 07/03/2019 Primary Osteoarthritis Knee Right 07/03/2019 Metabolizer CY Poor 07/03/2019 Metabolizer CYP2D6 Rapid 07/03/2019 Maintenance Health Adult 07/03/2019 Assisted (Current) Anticoagulant Treatment 07/03/2019 Hypertensive Heart Disease With Heart Failure (HCC) 07/03/2019 Hyperlipidemia 07/03/2019 Major Depressive Disorder, Recurrent, Unspecified (HCC) 07/03/2019 Primary Osteoarthritis Knee Right 07/12/2019 Atrial Fibrillation Paroxysmal (HCC) 07/12/2019 Primary Osteoarthritis Knee Right 07/12/2019 Hyperlipidemia 07/12/2019 Primary Osteoarthritis Knee Right 07/12/2019 Thrombosis Deep Vein Acute Calf Right (HCC) 08/03/2019 Monitoring For Therapeutic Drug Therapy 08/03/2019 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) Anticoagulant Treatment 08/03/2019 Atrial Fibrillation Paroxysmal (HCC) 09/07/2019 Thrombosis Deep Vein Acute Calf Right (HCC) 09/07/2019 Assisted (Current) Anticoagulant Treatment 09/07/2019 Monitoring For Therapeutic Drug Therapy 09/07/2019 Thrombosis Deep Vein Acute Calf Right (HCC) 09/07/2019 Monitoring For Therapeutic Drug Therapy 09/07/2019 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) Anticoagulant Treatment 09/07/2019 Thrombosis Deep Vein Acute Calf Right (HCC) 10/19/2019 Monitoring For Therapeutic Drug Therapy 10/19/2019 Assisted (Current) Anticoagulant Treatment 10/19/2019 Atrial Fibrillation Paroxysmal (HCC) 10/19/2019 Thrombosis Deep Vein Acute Calf Right (HCC) 10/27/2019 Monitoring For Therapeutic Drug Therapy 10/27/2019 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) Anticoagulant Treatment 10/27/2019 Atrial Fibrillation Paroxysmal (HCC) 10/27/2019 Thrombosis Deep Vein Acute Calf Right (HCC) 11/09/2019 Monitoring For Therapeutic Drug Therapy 11/09/2019 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) Anticoagulant Treatment 11/09/2019 Atrial Fibrillation Paroxysmal (HCC) 11/09/2019 Thrombosis Deep Vein Acute Calf Right (HCC) 11/13/2019 Monitoring For Therapeutic Drug Therapy 11/13/2019 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) Anticoagulant Treatment 11/13/2019 Atrial Fibrillation Paroxysmal (HCC) 11/13/2019 Thrombosis Deep Vein Acute Calf Right (HCC) 11/13/2019 Monitoring For Therapeutic Drug Therapy 11/13/2019 Assisted (Current) Anticoagulant Treatment 11/13/2019 Atrial Fibrillation Paroxysmal (HCC) 11/13/2019 Dysuria 11/20/2019 Urgency Urinary 11/20/2019 Neuropathy 11/20/2019 Thrombosis Deep Vein Acute Calf Right (HCC) 11/23/2019 Monitoring For Therapeutic Drug Therapy 11/23/2019 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) Anticoagulant Treatment 11/23/2019 Atrial Fibrillation Paroxysmal (HCC) 11/23/2019 Thrombosis Deep Vein Acute Calf Right (HCC) 11/30/2019 Monitoring For Therapeutic Drug Therapy 11/30/2019 Assisted (Current) Anticoagulant Treatment 11/30/2019 Atrial Fibrillation Paroxysmal (HCC) 11/30/2019 Thrombosis Deep Vein Acute Calf Right (HCC) 12/21/2019 Monitoring For Therapeutic Drug Therapy 12/21/2019 Assisted (Current) Anticoagulant Treatment 12/21/2019 Atrial Fibrillation Paroxysmal (HCC) 12/21/2019 Thrombosis Deep Vein Acute Calf Right (HCC) 01/11/2020 Monitoring For Therapeutic Drug Therapy 01/11/2020 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) Anticoagulant Treatment 01/11/2020 Atrial Fibrillation Paroxysmal (HCC) 01/11/2020 Atrial Fibrillation Paroxysmal (HCC) 03/05/2020 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) Anticoagulant Treatment 03/05/2020 Monitoring For Therapeutic [...] 06/26/2020 Monitoring For Therapeutic Drug Therapy 06/26/2020 Assisted (Current) Anticoagulant Treatment 06/26/2020 Atrial Fibrillation Paroxysmal (HCC) 06/26/2020 Screening Cancer Colon 07/01/2020 Screening Cancer Colon 07/03/2020 Screening Mammogram Breast Cancer 07/03/2020 Thrombosis Deep Vein Acute Calf Right (HCC) 07/25/2020 Monitoring For Therapeutic Drug Therapy 07/25/2020 Assisted (Current) Anticoagulant Treatment 07/25/2020 Atrial Fibrillation Paroxysmal (HCC) 07/25/2020 Thrombosis Deep Vein Acute Calf Right (HCC) 07/30/2020 Monitoring For Therapeutic Drug Therapy 07/30/2020 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) Anticoagulant Treatment 07/30/2020 Atrial Fibrillation Paroxysmal (HCC) 07/30/2020 Vaginitis 08/07/2020 Lesion Vulva 08/07/2020 Thrombosis Deep Vein Acute Calf Right (HCC) 08/13/2020 Monitoring For Therapeutic Drug Therapy 08/13/2020 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) Anticoagulant Treatment 08/13/2020 Atrial Fibrillation Paroxysmal (HCC) 08/13/2020 Infection Upper Respiratory 08/20/2020 Cough Unspecified Type 08/20/2020 Thrombosis Deep Vein Acute Calf Right (HCC) 08/20/2020 Monitoring For Therapeutic Drug Therapy 08/20/2020 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) Anticoagulant Treatment 08/20/2020 Atrial Fibrillation Paroxysmal (HCC) 08/20/2020 Cough Unspecified Type 08/21/2020 Thrombosis Deep Vein Acute Calf Right (HCC) 08/23/2020 Monitoring For Therapeutic Drug Therapy 08/23/2020 Assisted (Current) Anticoagulant Treatment 08/23/2020 Atrial Fibrillation Paroxysmal (HCC) 08/23/2020 Cough Unspecified Type 08/29/2020 Thrombosis Deep Vein Acute Calf Right (HCC) 08/29/2020 Monitoring For Therapeutic Drug Therapy 08/29/2020 Assisted (Current) Anticoagulant Treatment 08/29/2020 Atrial Fibrillation Paroxysmal [...] Pneumonia Due To COVID-19 09/08/2020 Dehydration 09/08/2020 Assisted (Current) Anticoagulant Treatment 09/08/2020 Atrial Fibrillation Paroxysmal (HCC) 09/08/2020 Major Depressive Disorder, Recurrent, Unspecified (HCC) 09/08/2020 Thrombosis Deep Vein Acute Calf Right (HCC) 09/08/2020 COVID-19 Infection 09/08/2020 Monitoring For Therapeutic Drug Therapy 09/08/2020 COVID-19 Infection 09/10/2020 Atrial Fibrillation Paroxysmal (HCC) 09/11/2020 Assisted (Current) Anticoagulant Treatment 09/11/2020 Monitoring For Therapeutic Drug Therapy 09/11/2020 Thrombosis Deep Vein Acute Calf Right (HCC) 09/11/2020 COVID-19 Infection 09/11/2020 Viral Syndrome 09/11/2020 Anemia 09/11/2020 Pneumonia Due To COVID-19 09/11/2020 Atrial Fibrillation Paroxysmal (HCC) 09/12/2020 Assisted (Current) Anticoagulant Treatment 09/12/2020 Monitoring For Therapeutic Drug Therapy 09/12/2020 Thrombosis Deep Vein Acute Calf Right (HCC) 09/12/2020 Atrial Fibrillation Paroxysmal (HCC) 09/12/2020 Assisted (Current) Anticoagulant Treatment 09/12/2020 Monitoring For Therapeutic [...] Infection 10/04/2020 Atrial Fibrillation Paroxysmal (HCC) 10/07/2020 Assisted (Current) Anticoagulant Treatment 10/07/2020 Monitoring For Therapeutic [...] 10/15/2020 Monitoring For Therapeutic Drug Therapy 10/15/2020 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) Anticoagulant Treatment 10/15/2020 Atrial Fibrillation Paroxysmal (HCC) 10/15/2020 Thrombosis Deep Vein Acute Calf Right (HCC) 10/15/2020 Hernia Hiatal 10/21/2020 Atrial Fibrillation Paroxysmal (HCC) 10/26/2020 Monitoring For Therapeutic Drug Therapy 10/29/2020 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) Anticoagulant Treatment 10/29/2020 Atrial Fibrillation Paroxysmal (HCC) 10/29/2020 Thrombosis Deep Vein Acute Calf Right (HCC) 10/29/2020 Assisted (Current) Anticoagulant Treatment 11/26/2020 Atrial Fibrillation Paroxysmal (HCC) 11/26/2020 Monitoring For Therapeutic Drug Therapy 11/26/2020 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) Anticoagulant Treatment 11/26/2020 Atrial Fibrillation Paroxysmal (HCC) 11/26/2020 Thrombosis Deep Vein Acute Calf Right (HCC) 11/26/2020 Cough Unspecified Type 11/26/2020 Dyspnea 11/26/2020 Gastroesophageal Reflux Disease Without Esophagitis 11/27/2020 Dyspnea 11/27/2020 Dyspnea 11/27/2020 Dyspnea 12/03/2020 Sleep Apnea 12/03/2020 Primary Osteoarthritis Knee Right 12/05/2020 Monitoring For Therapeutic Drug Therapy 12/12/2020 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) Anticoagulant Treatment 12/12/2020 Atrial Fibrillation Paroxysmal (HCC) 12/12/2020 Thrombosis Deep Vein Acute Calf Right (HCC) 12/12/2020 Thrombosis Deep Vein Acute Calf Right (HCC) 12/19/2020 Monitoring For Therapeutic Drug Therapy 12/19/2020 Assisted (Current) Anticoagulant Treatment 12/19/2020 Atrial Fibrillation Paroxysmal [...] 04/17/2021 Monitoring For Therapeutic Drug Therapy 04/17/2021 Assisted (Current) Anticoagulant Treatment 04/17/2021 Atrial Fibrillation Paroxysmal (HCC) 04/17/2021 Thrombosis Deep Vein Acute Calf Right (HCC) 04/17/2021 Restless Leg Syndrome 04/22/2021 Primary Osteoarthritis Knee Right 06/03/2021 Atrial Fibrillation Paroxysmal (HCC) 06/12/2021 Atrial Fibrillation Paroxysmal (HCC) 06/12/2021 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) Anticoagulant Treatment 06/12/2021 Monitoring For Therapeutic Drug Therapy 06/12/2021 Thrombosis Deep Vein Acute Calf Right (HCC) 06/12/2021 Atrial Fibrillation Paroxysmal (HCC) 06/12/2021 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) Anticoagulant Treatment 06/12/2021 Monitoring For Therapeutic Drug Therapy 06/12/2021 Thrombosis Deep Vein Acute Calf Right (HCC) 06/12/2021 Thrombosis Deep Vein Acute Calf Right (HCC) 06/16/2021 Monitoring For Therapeutic Drug Therapy 06/16/2021 Assisted (Current) Anticoagulant Treatment 06/16/2021 Atrial Fibrillation Paroxysmal (HCC) 06/16/2021 Atrial Fibrillation Paroxysmal (HCC) 06/17/2021 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) Anticoagulant Treatment 06/17/2021 Monitoring For Therapeutic Drug Therapy 06/17/2021 Thrombosis Deep Vein Acute Calf Right (HCC) 06/17/2021 Atrial Fibrillation Paroxysmal (HCC) 06/17/2021 Assisted (Current) Anticoagulant Treatment 06/17/2021 Monitoring For Therapeutic [...] (HCC) 06/27/2021 Atrial Fibrillation Paroxysmal (HCC) 06/27/2021 Assisted (Current) Anticoagulant Treatment 06/27/2021 Monitoring For Therapeutic Drug Therapy 06/27/2021 Thrombosis Deep Vein Acute Calf Right (HCC) 06/27/2021 Screening Mammogram Breast Cancer 07/08/2021 Dense Breasts, Unspecified 07/10/2021 Dense Breasts, Unspecified 07/14/2021 Atrial Fibrillation Paroxysmal (HCC) 07/25/2021 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) Anticoagulant Treatment 07/25/2021 Monitoring For Therapeutic Drug Therapy 07/25/2021 Thrombosis Deep Vein Acute Calf Right (HCC) 07/25/2021 Atrial Fibrillation Paroxysmal (HCC) 07/28/2021 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) Anticoagulant Treatment 07/28/2021 Monitoring For Therapeutic Drug Therapy 07/28/2021 Thrombosis Deep Vein Acute Calf Right (HCC) 07/28/2021 Atrial Fibrillation Paroxysmal (HCC) 08/01/2021 Atrial Fibrillation Paroxysmal (HCC) 08/04/2021 Monitoring For Therapeutic Drug Therapy 08/05/2021 Atrial Fibrillation Paroxysmal (HCC) 08/05/2021 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) Anticoagulant Treatment 08/05/2021 Monitoring For Therapeutic Drug Therapy 08/05/2021 Thrombosis Deep Vein Acute Calf Right (HCC) 08/05/2021 Hypertensive Heart Disease With Heart Failure (HCC) 08/08/2021 Atrial Fibrillation Paroxysmal (HCC) 08/18/2021 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) Anticoagulant Treatment 08/18/2021 Monitoring For Therapeutic Drug Therapy 08/18/2021 Thrombosis Deep Vein Acute Calf Right (HCC) 08/18/2021 Atrial Fibrillation Paroxysmal (HCC) 08/18/2021 Assisted (Current) [...] Essential Primary 09/16/2021 Maintenance Health Adult 09/16/2021 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) Anticoagulant Treatment 09/16/2021 Restless Leg Syndrome [...] History 11/04/2021 Atrial Fibrillation Paroxysmal (HCC) 11/18/2021 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) Anticoagulant Treatment 11/18/2021 Monitoring For Therapeutic [...] 12/03/2021 Monitoring For Therapeutic Drug Therapy 12/03/2021 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) Anticoagulant Treatment 12/03/2021 Atrial Fibrillation Paroxysmal (HCC) 12/16/2021 Assisted (Current) Anticoagulant Treatment 12/16/2021 Monitoring For Therapeutic Drug Therapy 12/16/2021 Thrombosis Deep Vein Acute Calf Right (HCC) 12/16/2021 Thrombosis Deep Vein Personal History 12/16/2021 Atrial Fibrillation Paroxysmal (HCC) 12/22/2021 Assisted (Current) Anticoagulant Treatment 12/22/2021 Monitoring For Therapeutic Drug Therapy 12/22/2021 Thrombosis Deep Vein Personal History 12/22/2021 Atrial Fibrillation Paroxysmal (HCC) 12/25/2021 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) Anticoagulant Treatment 12/25/2021 Monitoring For Therapeutic Drug Therapy 12/25/2021 Thrombosis Deep Vein Personal History 12/25/2021 Atrial Fibrillation Paroxysmal (HCC) 12/29/2021 Assisted (Current) Anticoagulant Treatment 12/29/2021 Monitoring For Therapeutic Drug Therapy 12/29/2021 Thrombosis Deep Vein Personal History 12/29/2021 Atrial Fibrillation Paroxysmal (HCC) 12/29/2021 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) Anticoagulant Treatment 12/29/2021 Monitoring For Therapeutic Drug Therapy 12/29/2021 Thrombosis Deep Vein Personal History 12/29/2021 Atrial Fibrillation Paroxysmal (HCC) 12/30/2021 Assisted (Current) Anticoagulant Treatment 12/30/2021 Monitoring For Therapeutic Drug Therapy 12/30/2021 Thrombosis Deep Vein Personal History 12/30/2021 Atrial Fibrillation Paroxysmal (HCC) 01/05/2022 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) Anticoagulant Treatment 01/05/2022 Monitoring For Therapeutic Drug Therapy 01/05/2022 Thrombosis Deep Vein Personal History 01/05/2022 Atrial Fibrillation Paroxysmal (HCC) 01/08/2022 Assisted (Current) Anticoagulant Treatment 01/08/2022 Monitoring For Therapeutic Drug Therapy 01/08/2022 Thrombosis Deep Vein Personal History 01/08/2022 Atrial Fibrillation Paroxysmal (HCC) 01/08/2022 Assisted (Current) Anticoagulant Treatment 01/08/2022 Monitoring For Therapeutic Drug Therapy 01/08/2022 Thrombosis Deep Vein Personal History 01/08/2022 Atrial Fibrillation Paroxysmal (HCC) 01/12/2022 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) Anticoagulant Treatment 01/12/2022 Monitoring For Therapeutic Drug Therapy 01/12/2022 Thrombosis Deep Vein Personal History 01/12/2022 Atrial Fibrillation Paroxysmal (HCC) 01/19/2022 Assisted (Current) Anticoagulant Treatment 01/19/2022 Monitoring For Therapeutic Drug Therapy 01/19/2022 Thrombosis Deep Vein Personal History 01/19/2022 Hyperlipidemia 01/20/2022 Atrial Fibrillation Paroxysmal (HCC) 01/26/2022 Assisted (Current) Anticoagulant Treatment 01/26/2022 Monitoring For Therapeutic Drug Therapy 01/26/2022 Thrombosis Deep Vein Personal History 01/26/2022 Atrial Fibrillation Paroxysmal (HCC) 02/02/2022 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) Anticoagulant Treatment 02/02/2022 Monitoring For Therapeutic Drug Therapy 02/02/2022 Thrombosis Deep Vein Personal History 02/02/2022 Atrial Fibrillation Paroxysmal (HCC) 02/09/2022 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) Anticoagulant Treatment 02/09/2022 Monitoring For Therapeutic Drug Therapy 02/09/2022 Thrombosis Deep Vein Personal History 02/09/2022 Atrial Fibrillation Paroxysmal (HCC) 02/16/2022 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) Anticoagulant Treatment 02/16/2022 Monitoring For Therapeutic Drug Therapy 02/16/2022 Thrombosis Deep Vein Personal History 02/16/2022 Primary Osteoarthritis Knee Right 02/19/2022 Polyp Colon 02/20/2022 Atrial Fibrillation Paroxysmal (HCC) 02/23/2022 Assisted (Current) Anticoagulant Treatment 02/23/2022 Monitoring For Therapeutic [...] Acute 03/22/2022 Atrial Fibrillation Paroxysmal (HCC) 03/23/2022 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) Anticoagulant Treatment 03/23/2022 Monitoring For Therapeutic Drug Therapy 03/23/2022 Thrombosis Deep Vein Personal History 03/23/2022 Hyperlipidemia 03/26/2022 Viral Syndrome 03/26/2022 Atrial Fibrillation Paroxysmal (HCC) 03/26/2022 Assisted (Current) Anticoagulant Treatment 03/26/2022 Monitoring For Therapeutic Drug Therapy 03/26/2022 Thrombosis Deep Vein Personal History 03/26/2022 Gastroesophageal Reflux Disease Without Esophagitis 03/27/2022 Assisted (Current) Anticoagulant Treatment 03/27/2022 Viral Syndrome 03/27/2022 Gastroesophageal Reflux Disease Without Esophagitis 03/27/2022 Atrial Fibrillation Paroxysmal (HCC) 03/27/2022 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) Anticoagulant Treatment 03/27/2022 Monitoring For Therapeutic Drug Therapy 03/27/2022 Thrombosis Deep Vein Personal History 03/27/2022 Sore Throat 03/29/2022 Cough Unspecified Type 03/29/2022 Conjunctivitis Acute Bilateral 03/29/2022 Contact With And (Suspected) Exposure To COVID-19 03/30/2022 Gastroesophageal Reflux Disease Without Esophagitis 04/02/2022 Gastroesophageal Reflux Disease Without Esophagitis 04/02/2022 Preanesthetic Medical Exam 04/08/2022 Atrial Fibrillation Paroxysmal (HCC) 04/09/2022 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) Anticoagulant Treatment 04/09/2022 Monitoring For Therapeutic Drug Therapy 04/09/2022 Thrombosis Deep Vein Personal History 04/09/2022 Atrial Fibrillation Paroxysmal (HCC) 04/16/2022 Assisted (Current) Anticoagulant Treatment 04/16/2022 Monitoring For Therapeutic Drug Therapy 04/16/2022 Thrombosis Deep Vein Personal History 04/16/2022 Atrial Fibrillation Paroxysmal (HCC) 04/23/2022 Assisted (Current) Anticoagulant Treatment 04/23/2022 Monitoring For Therapeutic Drug Therapy 04/23/2022 Thrombosis Deep Vein Personal History 04/23/2022 Gastroesophageal Reflux Disease Without Esophagitis 04/23/2022 Atrial Fibrillation Paroxysmal (HCC) 05/04/2022 Assisted (Current) Anticoagulant Treatment 05/04/2022 Monitoring For Therapeutic Drug Therapy 05/04/2022 Thrombosis Deep Vein Personal History 05/04/2022 Thrombosis Deep Vein Personal History 05/07/2022 Assisted (Current) Anticoagulant Treatment 05/07/2022 Monitoring For Therapeutic Drug Therapy 05/07/2022 Atrial Fibrillation Paroxysmal (HCC) 05/07/2022 Primary Osteoarthritis Knee Right 05/14/2022 Atrial Fibrillation Paroxysmal (HCC) 05/25/2022 Assisted (Current) Anticoagulant Treatment 05/25/2022 Monitoring For Therapeutic Drug Therapy 05/25/2022 Thrombosis Deep Vein Personal History 05/25/2022 Polyp Colon 06/05/2022 Dehydration 06/05/2022 Lightheadedness 06/05/2022 Atrial Fibrillation Unspecified (HCC) 06/05/2022 Atrial Fibrillation Paroxysmal (HCC) 06/08/2022 Atrial Fibrillation Paroxysmal (HCC) 06/08/2022 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) Anticoagulant Treatment 06/08/2022 Monitoring For Therapeutic Drug Therapy 06/08/2022 Thrombosis Deep Vein Personal History 06/08/2022 Polyp Colon Adenomatous Personal History 06/16/2022 Depression Major Recurrent Full Remission (HCC) 06/17/2022 Atrial Fibrillation Paroxysmal (HCC) 06/17/2022 Asthma Mild Intermittent (HCC) 06/17/2022 History Of Falling 06/17/2022 Primary Osteoarthritis Knee Right 06/17/2022 Thrombosis Deep Vein Personal History 06/17/2022 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) Anticoagulant Treatment 06/17/2022 Maintenance Health Adult 06/17/2022 Hypertension Essential Primary 06/17/2022 Preoperative Exam 06/17/2022 Thrombosis Deep Vein Personal History 06/29/2022 Assisted (Current) Anticoagulant Treatment 06/29/2022 Monitoring For Therapeutic Drug Therapy 06/29/2022 Atrial Fibrillation Paroxysmal (HCC) 06/29/2022 Atrial Fibrillation Paroxysmal (HCC) 07/06/2022 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) Anticoagulant Treatment 07/06/2022 Monitoring For Therapeutic Drug Therapy 07/06/2022 Thrombosis Deep Vein Personal History 07/06/2022 Atrial Fibrillation Paroxysmal (HCC) 07/21/2022 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) Anticoagulant Treatment 07/21/2022 Monitoring For Therapeutic Drug Therapy 07/21/2022 Thrombosis Deep Vein Personal History 07/21/2022 Restless Leg Syndrome 07/21/2022 Screening Mammogram Breast Cancer 07/28/2022 Atrial Fibrillation Paroxysmal (HCC) 08/04/2022 Assisted (Current) Anticoagulant Treatment 08/04/2022 Monitoring For Therapeutic Drug Therapy 08/04/2022 Thrombosis Deep Vein Personal History 08/04/2022 Headache New 08/09/2022 Hypertension Borderline 08/09/2022 Atrial Fibrillation Paroxysmal (HCC) 08/17/2022 Screening Mammogram Breast Cancer 08/20/2022 Thrombosis Deep Vein Personal History 08/31/2022 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) Anticoagulant Treatment 08/31/2022 Monitoring For Therapeutic Drug Therapy 08/31/2022 Atrial Fibrillation Paroxysmal (HCC) 08/31/2022 Atrial Fibrillation Paroxysmal (HCC) 09/07/2022 Assisted (Current) Anticoagulant Treatment 09/07/2022 Monitoring For Therapeutic Drug Therapy 09/07/2022 Thrombosis Deep Vein Personal History 09/07/2022 Thrombosis Deep Vein Personal History 09/28/2022 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) Anticoagulant Treatment 09/28/2022 Monitoring For Therapeutic [...] Exertion 11/12/2022 Atrial Fibrillation Paroxysmal (HCC) 11/23/2022 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) Anticoagulant Treatment 11/23/2022 Monitoring For Therapeutic Drug Therapy 11/23/2022 Thrombosis Deep Vein Personal History 11/23/2022 Shortness Of Breath 11/28/2022 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) Anticoagulant Treatment 11/30/2022 Atrial Fibrillation Paroxysmal (HCC) 11/30/2022 Thrombosis Deep Vein Acute Calf Right (HCC) 11/30/2022 Monitoring For Therapeutic Drug Therapy 11/30/2022 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) Anticoagulant Treatment 11/30/2022 Atrial Fibrillation Paroxysmal (HCC) 11/30/2022 Thrombosis Deep Vein Acute Calf Right (HCC) 11/30/2022 Monitoring For Therapeutic Drug Therapy 11/30/2022 Hypertension Essential Primary 11/30/2022 Atrial Fibrillation Unspecified (HCC) 12/21/2022 Atrial Fibrillation Paroxysmal (HCC) 12/21/2022 Atrial Fibrillation Paroxysmal (HCC) 12/21/2022 Thrombosis Deep Vein Personal History 12/21/2022 Assisted (Current) Anticoagulant Treatment 12/21/2022 Monitoring For Therapeutic Drug Therapy 12/21/2022 Restless Leg Syndrome 01/11/2023 Atrial Fibrillation Paroxysmal (HCC) 01/12/2023 Assisted (Current) Anticoagulant Treatment 01/12/2023 Monitoring For Therapeutic Drug Therapy 01/12/2023 Thrombosis Deep Vein Personal History 01/12/2023 Thrombosis Deep Vein Personal History 01/18/2023 Assisted (Current) Anticoagulant Treatment 01/18/2023 Monitoring For Therapeutic Drug Therapy 01/18/2023 Atrial Fibrillation Paroxysmal (HCC) 01/18/2023 Atrial Fibrillation Paroxysmal (HCC) 02/08/2023 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) Anticoagulant Treatment 02/08/2023 Monitoring For Therapeutic Drug Therapy 02/08/2023 Thrombosis Deep Vein Personal History 02/08/2023 Thrombosis Deep Vein Personal History 02/15/2023 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) Anticoagulant Treatment 02/15/2023 Monitoring For Therapeutic Drug Therapy 02/15/2023 Atrial Fibrillation Paroxysmal (HCC) 02/15/2023 Thrombosis Deep Vein Personal History 03/15/2023 Assisted (Current) Anticoagulant Treatment 03/15/2023 Monitoring For Therapeutic Drug Therapy 03/15/2023 Atrial Fibrillation Paroxysmal (HCC) 03/15/2023 Thrombosis Deep Vein Personal History 03/15/2023 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) Anticoagulant Treatment 03/15/2023 Monitoring For Therapeutic Drug Therapy 03/15/2023 Atrial Fibrillation Paroxysmal (HCC) 03/15/2023 Thrombosis Deep Vein Personal History 03/15/2023 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) Anticoagulant Treatment 03/15/2023 Monitoring For Therapeutic [...] History 04/19/2023 Atrial Fibrillation Paroxysmal (HCC) 04/19/2023 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) Anticoagulant Treatment 04/19/2023 Monitoring For Therapeutic Drug Therapy 04/19/2023 Atrial Fibrillation Paroxysmal (HCC) 04/19/2023 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) Anticoagulant Treatment 04/19/2023 Monitoring For Therapeutic Drug Therapy 04/19/2023 Hyperlipidemia 04/27/2023 Atrial Fibrillation Paroxysmal (HCC) 05/03/2023 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) Anticoagulant Treatment 05/03/2023 Monitoring For Therapeutic Drug Therapy 05/03/2023 Thrombosis Deep Vein Personal History 05/03/2023 Atrial Fibrillation Paroxysmal (HCC) 05/10/2023 Assisted (Current) Anticoagulant Treatment 05/10/2023 Monitoring For Therapeutic Drug Therapy 05/10/2023 Thrombosis Deep Vein Personal History 05/10/2023 Thrombosis Deep Vein Personal History 05/17/2023 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) Anticoagulant Treatment 05/17/2023 Monitoring For Therapeutic Drug Therapy 05/17/2023 Atrial Fibrillation Paroxysmal (HCC) 05/17/2023 Atrial Fibrillation Paroxysmal (HCC) 05/31/2023 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) Anticoagulant Treatment 05/31/2023 Monitoring For Therapeutic [...] Falls 06/24/2023 Atrial Fibrillation Paroxysmal (HCC) 06/28/2023 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) Anticoagulant Treatment 06/28/2023 Monitoring For Therapeutic Drug Therapy 06/28/2023 Thrombosis Deep Vein Personal History 06/28/2023 Thrombosis Deep Vein Personal History 06/30/2023 Assisted (Current) Anticoagulant Treatment 06/30/2023 Monitoring For Therapeutic Drug Therapy 06/30/2023 Atrial Fibrillation Paroxysmal (HCC) 06/30/2023 Restless Leg Syndrome 07/08/2023 Atrial Fibrillation Unspecified (HCC) 07/08/2023 Thrombosis Deep Vein Personal History 07/12/2023 Assisted (Current) Anticoagulant Treatment 07/12/2023 Monitoring For Therapeutic Drug Therapy 07/12/2023 Atrial Fibrillation Paroxysmal (HCC) 07/12/2023 Atrial Fibrillation Unspecified (HCC) 07/20/2023 Atrial Fibrillation Paroxysmal (HCC) 07/20/2023 Atrial Fibrillation Paroxysmal (HCC) 07/19/2023 Assisted (Current) Anticoagulant Treatment 07/19/2023 Thrombosis Deep Vein Acute Calf Right (HCC) 07/19/2023 Monitoring For Therapeutic Drug Therapy 07/19/2023 Thrombosis Deep Vein Personal History 07/22/2023 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) Anticoagulant Treatment 07/22/2023 Monitoring For Therapeutic Drug Therapy 07/22/2023 Atrial Fibrillation Paroxysmal (HCC) 07/22/2023 Thrombosis Deep Vein Personal History 07/23/2023 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) Anticoagulant Treatment 07/23/2023 Monitoring For Therapeutic Drug Therapy 07/23/2023 Atrial Fibrillation Paroxysmal (HCC) 07/23/2023 Thrombosis Deep Vein Personal History 07/26/2023 Assisted (Current) Anticoagulant Treatment 07/26/2023 Monitoring For Therapeutic Drug Therapy 07/26/2023 Atrial Fibrillation Paroxysmal (HCC) 07/26/2023 Screening Mammogram Breast Cancer 08/23/2023 Thrombosis Deep Vein Personal History 08/23/2023 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) Anticoagulant Treatment 08/23/2023 Monitoring For Therapeutic Drug Therapy 08/23/2023 Atrial Fibrillation Paroxysmal (HCC) 08/23/2023 Atrial Fibrillation Paroxysmal (HCC) 09/02/2023 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) Anticoagulant Treatment 09/02/2023 Thrombosis Deep Vein Acute Calf Right (HCC) 09/02/2023 Monitoring For Therapeutic Drug Therapy 09/02/2023 Assisted (Current) Anticoagulant Treatment 09/03/2023 Atrial Fibrillation Paroxysmal (HCC) 09/06/2023 Assisted (Current) Anticoagulant Treatment 09/06/2023 Monitoring For Therapeutic Drug Therapy 09/06/2023 Thrombosis Deep Vein Personal History 09/06/2023 Thrombosis Deep Vein Personal History 09/14/2023 Assisted (Current) Anticoagulant Treatment 09/14/2023 Monitoring For Therapeutic Drug Therapy 09/14/2023 Atrial Fibrillation Paroxysmal (HCC) 09/14/2023 Thrombosis Deep Vein Personal History 09/20/2023 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) Anticoagulant Treatment 09/20/2023 Monitoring For Therapeutic Drug Therapy 09/20/2023 Atrial Fibrillation Paroxysmal (HCC) 09/20/2023 Atrial Fibrillation Paroxysmal (HCC) 09/27/2023 Assisted (Current) Anticoagulant Treatment 09/27/2023 Monitoring For Therapeutic Drug Therapy 09/27/2023 Thrombosis Deep Vein Personal History 09/27/2023 Atrial Fibrillation Paroxysmal (HCC) 10/11/2023 Assisted (Current) Anticoagulant Treatment 10/11/2023 Monitoring For Therapeutic Drug Therapy 10/11/2023 Thrombosis Deep Vein Personal History 10/11/2023 Thrombosis Deep Vein Personal History 10/18/2023 Assisted (Current) Anticoagulant Treatment 10/18/2023 Monitoring For Therapeutic [...] (HCC) 11/16/2023 Atrial Fibrillation Paroxysmal (HCC) 11/22/2023 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) Anticoagulant Treatment 11/22/2023 Monitoring For Therapeutic Drug Therapy 11/22/2023 Thrombosis Deep Vein Personal History 11/22/2023 Hypertension Pulmonary (HCC) 11/25/2023 Chronic Diastolic (Congestive) Heart Failure (HCC) 11/25/2023 Thrombosis Deep Vein Personal History 11/29/2023 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) Anticoagulant Treatment 11/29/2023 Monitoring For Therapeutic Drug Therapy 11/29/2023 Atrial Fibrillation Paroxysmal (HCC) 11/29/2023 Atrial Fibrillation Paroxysmal (HCC) 12/06/2023 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) Anticoagulant Treatment 12/06/2023 Monitoring For Therapeutic Drug Therapy 12/06/2023 Thrombosis Deep Vein Personal History 12/06/2023 Obstructive Sleep Apnea Adult 12/08/2023 Atrial Fibrillation Paroxysmal (HCC) 12/13/2023 Assisted (Current) Anticoagulant Treatment 12/13/2023 Monitoring For Therapeutic Drug Therapy 12/13/2023 Thrombosis Deep Vein Personal History 12/13/2023 Thrombosis Deep Vein Personal History 12/27/2023 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) Anticoagulant Treatment 12/27/2023 Monitoring For Therapeutic Drug Therapy 12/27/2023 Atrial Fibrillation Paroxysmal (HCC) 12/27/2023 Atrial Fibrillation Paroxysmal (HCC) 01/03/2024 Assisted (Current) Anticoagulant Treatment 01/03/2024 Monitoring For Therapeutic Drug Therapy 01/03/2024 Thrombosis Deep Vein Personal History 01/03/2024 Atrial Fibrillation Paroxysmal (HCC) 01/10/2024 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) Anticoagulant Treatment 01/10/2024 Monitoring For Therapeutic Drug Therapy 01/10/2024 Thrombosis Deep Vein Personal History 01/10/2024 Thrombosis Deep Vein Personal History 01/24/2024 Assisted (Current) Anticoagulant Treatment 01/24/2024 Monitoring For Therapeutic Drug Therapy 01/24/2024 Atrial Fibrillation Paroxysmal (HCC) 01/24/2024 Atrial Fibrillation Paroxysmal (HCC) 01/24/2024 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) Anticoagulant Treatment 01/24/2024 Monitoring For Therapeutic Drug Therapy 01/24/2024 Thrombosis Deep Vein Personal History 01/24/2024 Failure Heart (HCC) 02/21/2024 Atrial Fibrillation Paroxysmal (HCC) 02/21/2024 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) Anticoagulant Treatment 02/21/2024 Monitoring For Therapeutic Drug Therapy 02/21/2024 Thrombosis Deep Vein Personal History 02/21/2024 Insomnia 03/21/2024 Thrombosis Deep Vein Personal History 03/29/2024 Assisted (Current) Anticoagulant Treatment 03/29/2024 Monitoring For Therapeutic Drug Therapy 03/29/2024 Atrial Fibrillation Paroxysmal (HCC) 03/29/2024 Atrial Fibrillation Paroxysmal (HCC) 03/29/2024 Assisted (Current) Anticoagulant Treatment 03/29/2024 Monitoring For Therapeutic Drug Therapy 03/29/2024 Thrombosis Deep Vein Personal History 03/29/2024 Thrombosis Deep Vein Personal History 04/11/2024 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) Anticoagulant Treatment 04/11/2024 Monitoring For Therapeutic Drug Therapy 04/11/2024 Atrial Fibrillation Paroxysmal (HCC) 04/11/2024 Failure Heart (HCC) 04/27/2024 Failure Heart (HCC) 04/27/2024 Atrial Fibrillation Paroxysmal (HCC) 04/27/2024 Failure Heart (HCC) 04/27/2024 Chronic Diastolic (Congestive) Heart Failure (HCC) 04/27/2024 Hypertension Essential Primary 04/27/2024 Atrial Fibrillation Paroxysmal (HCC) 04/27/2024 Sleep Apnea 04/27/2024 Hyperlipidemia 04/27/2024 Thrombosis Deep Vein Personal History 05/04/2024 Assisted (Current) Anticoagulant Treatment 05/04/2024 Monitoring For Therapeutic Drug Therapy 05/04/2024 Atrial Fibrillation Paroxysmal (HCC) 05/04/2024 Thrombosis Deep Vein Personal History 05/08/2024 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) Anticoagulant Treatment 05/08/2024 Monitoring For Therapeutic Drug Therapy 05/08/2024 Atrial Fibrillation Paroxysmal (HCC) 05/08/2024 Thrombosis Deep Vein Personal History 05/15/2024 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) Anticoagulant Treatment 05/15/2024 Monitoring For Therapeutic Drug Therapy 05/15/2024 Atrial Fibrillation Paroxysmal (HCC) 05/15/2024 Obstructive Sleep Apnea Adult 05/25/2024 Thrombosis Deep Vein Personal History 2024 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) Anticoagulant Treatment 2024 Monitoring For Therapeutic Drug Therapy 2024 Atrial Fibrillation Paroxysmal (HCC) 2024 Gastroesophageal Reflux Disease Without Esophagitis 2024 Thrombosis Deep Vein Personal History 06/12/2024 Assisted (Current) Anticoagulant Treatment 06/12/2024 Monitoring For Therapeutic Drug Therapy 06/12/2024 Atrial Fibrillation Paroxysmal (HCC) 06/12/2024 Thrombosis Deep Vein Personal History 06/12/2024 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) Anticoagulant Treatment 06/12/2024 Monitoring For Therapeutic Drug Therapy 06/12/2024 Atrial Fibrillation Paroxysmal (HCC) 06/12/2024 Thrombosis Deep Vein Personal History 07/03/2024 Assisted (Current) Anticoagulant Treatment 07/03/2024 Monitoring For Therapeutic Drug Therapy 07/03/2024 Atrial Fibrillation Paroxysmal (HCC) 07/03/2024 Atrial Fibrillation Paroxysmal (HCC) 07/11/2024 Obesity Body Mass Index 30-39.9 Adult 07/18/2024 Atrial Fibrillation Paroxysmal (HCC) 07/18/2024 Thrombosis Deep Vein Personal History 07/24/2024 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) Anticoagulant Treatment 07/24/2024 Monitoring For Therapeutic Drug Therapy 07/24/2024 Atrial Fibrillation Paroxysmal (HCC) 07/24/2024 Atrial Fibrillation Unspecified (HCC) 07/31/2024 Thrombosis Deep Vein Personal History 07/31/2024 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) Anticoagulant Treatment 07/31/2024 Monitoring For Therapeutic Drug Therapy 07/31/2024 Atrial Fibrillation Paroxysmal (HCC) 07/31/2024 Thrombosis Deep Vein Personal History 08/21/2024 Assisted (Current) Anticoagulant Treatment 08/21/2024 Monitoring For Therapeutic Drug Therapy 08/21/2024 Atrial Fibrillation Paroxysmal (HCC) 08/21/2024 Thrombosis Deep Vein Personal History 08/29/2024 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) Anticoagulant Treatment 08/29/2024 Monitoring For Therapeutic Drug Therapy 08/29/2024 Atrial Fibrillation Paroxysmal (HCC) 08/29/2024 Atrial Fibrillation Unspecified (HCC) 07/13/2018 Hypertensive Heart [...] Failure (HCC) 09/08/2020 Gastroesophageal Reflux Disease 09/08/2020 Assisted (Current) Anticoagulant Treatment 09/08/2020 Atrial Fibrillation Paroxysmal (HCC) 09/08/2020 COVID-19 Infection 09/08/2020 Anemia 09/08/2020 Atrial Fibrillation Paroxysmal (HCC) 07/19/2023 Hypertension Essential Primary 07/19/2023 Atrial Fibrillation Unspecified (HCC) 07/19/2023 Gastroesophageal Reflux Disease Without Esophagitis 07/19/2023 Hyperlipidemia 07/19/2023 Metabolizer CYP2D6 Rapid 07/19/2023 Sleep Apnea 07/19/2023 Thrombosis Deep Vein Personal History 07/19/2023 Assisted (Current) Anticoagulant Treatment 07/19/2023 Monitoring For Therapeutic Drug Therapy 07/19/2023 History Of Falling 07/19/2023 Anemia 07/19/2023 Care Teams Change Release Manager Relationship Specialty Start Date End Date Emilia Lincoln M.D. [address] [place] [phone] PCP - General Family Medicine 08/13/23
--- OUTSIDE RECORDS SUMMARY | 2024-09-14 09:49 | XMS_ITS ---
Author Organization [facility] Address [address] [place] [address] Care Team Providers Care Real Estate Utilization Officer Name Role Phone Unavailable Unavailable Unavailable Surgery Details Not on file Complications Check Surgery Details section. Procedure Estimated Blood Loss Check Surgery Details section. Procedure Findings Check Surgery Details section. Procedure Specimens Taken Check Surgery Details section.
--- OUTSIDE RECORDS SUMMARY | 2024-09-14 09:49 | XMS_ITS | Encounter Summary ---
Author Organization [facility] Address [address] [place] [address] Care Team Providers Care Mail Processing Associate Name Role Phone Emilia Lincoln M.D. Primary Care Provider +1- [phone] Reason for Referral * Outpatient (Routine) - Authorized Specialty Diagnoses / Procedures Referred By Contac t Referred To Contact Anticoagulation Diagnoses Thrombosis Deep Vein Personal History Mcfp (Current) Anticoagulant Treatment Monitoring For Therapeutic Drug Therapy Atrial Fibrillation Paroxysmal (HCC) Emilia Lincoln M.D. [address] [place] [phone] Phone: tel: fax: [facility] Referral ID Status Reason Start Date Expiration Date V isits Requested Visits Authorized [id number] Authorized 08/29/2024 02/28/2026 1 1 Reason for Visit * Outpatient (Routine) - Closed Specialty Diagnoses / Procedures Referred By Contac t Referred To Contact Anticoagulation Emilia Lincoln M.D. [address] [place] [phone] Phone: tel: fax: [facility] Referral ID Status Reason Start Date Expiration Date Visits Re quested Visits Authorized [id number] Closed 07/31/2024 01/30/2026 1 1 Encounter Details Date Type Department Care Team (Latest Contact Info) Description 08/29/2024 9:00 AM CDT Anticoagulation Visit Department of Anticoagulation in [place], [place] [address] [place] [address] Emilia Lincoln M.D. [address] [phone] Thrombosis Deep Vein Personal History (Primary Dx); Mcfp (Current) Anticoagulant Treatment; Monitoring For Therapeutic Drug [...] often do you attend chur ch or anabaptism services? More than 4 times per year 02/25/2022 Do you belong to any clubs o r organizations such as jew groups, unions, fraternal or athletic groups, or [...] Date Recorded PHQ-2 Score 3 04/26/2024 [facility] of Occupat ional Health - [...] Master's degree (e.g., MA, MS, Tacho, MEd, COMPACT ASSEMBLER, EARLE) 06/27/2019 Comments No Sex and Gender Information Value Date Recorded Sex Assigned at Female 11/24/2017 7:34 PM GAS SCRUBBER OPERATOR Legal Sex Female 4:28 AM GAS SCRUBBER OPERATOR Gender Identity Female 05/03/2021 11:34 AM [...] please call Primary Care Anticoagulation Program at [phone] from 7:30 am to 4:30 pm. Wednesday-Wednesday [...] if you start any herbal or other cjtq-gjf-pyyqnad product (check with your doctor, a nurse, [...] (Latest Contact Info) Description 09/25/2024 9:45 AM GAS SCRUBBER OPERATOR Anticoagulation Visit Department of Anticoagulation in [place], [place] [address] [place] [address] Emilia Lincoln M.D. [address] [place] [phone] 11/20/2024 8:30 AM GAS SCRUBBER OPERATOR Clinical Communication Virtual Review in [place], [place] [address] [place] [address] 11/23/2024 9:40 AM GAS SCRUBBER OPERATOR Appointment Department of Laboratory Medicine and Pathology, [facility], in [place], [place] [address] [place] [phone] Jerardo Buckley M.D., Ph.D. [address] [place] [phone] 11/23/2024 10:00 AM GAS SCRUBBER OPERATOR Ancillary Procedure Department of Cardiovascular Medicine in [place], [place] [address] [place] [phone] Jerardo Buckley M.D., Ph.D. [address] [place] [phone] 11/23/2024 10:40 AM GAS SCRUBBER OPERATOR Appointment Department of Cardiovascular Diseases in [address] [phone] Jerardo Buckley M.D., Ph.D. [address] [place] [phone] Discharge Disposition: Home or Self Care 11/23/2024 1:00 PM GAS SCRUBBER OPERATOR Office Visit Department of Cardiovascular Medicine in [address] [phone] Melissa Henriquez P.A.-C., M.S. [address] [place] [phone] 11/23/2024 3:00 PM GAS SCRUBBER OPERATOR Appointment Department of Radiology, [facility], in [place], [place] [address] [place] [phone] Jerardo Buckley M.D., Ph.D. [address] [place] [phone] 11/24/2024 8:05 AM GAS SCRUBBER OPERATOR Hospital Encounter Division of Cardiovascular Diseases in [place], [place] [address] [place] [phone] Jerardo Buckley M.D., Ph.D. [address] [place] [phone] Atrial Fibrillation Unspecified (HCC) 11/24/2024 8:05 AM GAS SCRUBBER OPERATOR - 11/24/2024 11:47 AM GAS SCRUBBER OPERATOR Surgery Division of Cardiovascular Diseases in [place], [place] [address] [place] [phone] Jerardo Buckley M.D., Ph.D. [address] [place] [phone] PULSED FIELD ABLATION Scheduled Referrals Name Type Priority Associated Diagnoses Orde r Schedule Anticoagulation nurse visit (clinic) Outpatient Referral Routine Thrombosis Deep Vein Personal History Mcfp (Current) Anticoagulant Treatment Monitoring For Therapeutic Drug [...] Primary Thrombosis Deep Vein Personal History- Primary Mcfp (Current) Anticoagulant Treatment Monitoring For Therapeutic Drug Therapy Atrial Fibrillation Paroxysmal (HCC) Atrial Fibrillation Unspecified (HCC) documented in this encounter Additional Health Concerns Assessment Noted Time PHQ-9 Depression Total Score: 8 04/26/20 24 10:43 AM CDT documented as of this encounter Care Teams Mail Processing Associate Relationship Specialty Start Date End Date Emilia Lincoln M.D. [address] [phone] PCP - General Family Medicine 08/13/23 documented as of this encounter
--- OUTSIDE RECORDS SUMMARY | 2024-09-14 09:49 | XMS_ITS | Encounter Summary ---
Author Organization [facility] Address [address] [place] [address] Care Team Providers Care Redrying Machine Operator Name Role Phone Emilia Lincoln M.D. Primary Care Provider +1- [phone] Encounter Details Date Type Department Care Team (Late st Contact Info) Description 06/12/2024 Orders Only Department of Anticoagulation in [place], [place] [address] [place] [phone] Jacquie Chavis R.N. 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 More than 4 times per year [...] Date Recorded PHQ-2 Score 3 04/26/2024 [facility] of Occupat ional Health - Occupational Stress [...] your living situation today? I have a [facility] place to live 05/26/2023 Education Answer Date Recorded What is the highest level of school you have completed or the highest degree you have received? Master's degree (e.g., MA, MS, Tacho, MEd, POLITICAL DIRECTOR, EARLE) 06/27/2019 Comments No Sex and Gender Information Value Date Recorded Sex Assigned at Female 11/24/2017 7:34 PM CARE TRANSITIONS MANAGER Legal Sex Female 4:28 AM CARE TRANSITIONS MANAGER Gender Identity Female 05/03/2021 11:34 AM CDT Sexual Orientation Straight 05/03/2021 11 :34 AM CDT documented as of this encounter Plan of Treatment Upcoming Encounters Date Type Department Care Team (Latest Contact Info) Description 09/25/2024 9:45 AM CARE TRANSITIONS MANAGER Anticoagulation Visit Department of Anticoagulation in [place], [place] [address] [place] [address] Emilia Lincoln M.D. [address] [place] [phone] 11/20/2024 8:30 AM CARE TRANSITIONS MANAGER Clinical Communication Virtual Review in [place], [place] 200 [place] [address] 11/23/2024 9:40 AM CARE TRANSITIONS MANAGER Appointment Department of Laboratory Medicine and Pathology, [facility] in [place], [place] [address] [place] [phone] Jerardo Buckley M.D., Ph.D. [address] [place] [phone] 11/23/2024 10:00 AM CARE TRANSITIONS MANAGER Ancillary Procedure Department of Cardiovascular Medicine in [address] [phone] Jerardo Buckley M.D., Ph.D. [address] [place] [phone] 11/23/2024 10:40 AM CARE TRANSITIONS MANAGER Appointment Department of Cardiovascular Diseases in [address] [phone] Jerardo Buckley M.D., Ph.D. [address] [place] [phone] Discharge Disposition: Home or Self Care 11/23/2024 1:00 PM CARE TRANSITIONS MANAGER Office Visit Department of Cardiovascular Medicine in [address] [phone] Melissa Henriquez P.A.-C., M.S. [address] [place] [phone] 11/23/2024 3:00 PM CARE TRANSITIONS MANAGER Appointment Department of Radiology, [facility], in [address] [phone] Jerardo Buckley M.D., Ph.D. [address] [place] [phone] 11/24/2024 8:05 AM CARE TRANSITIONS MANAGER Hospital Encounter Division of Cardiovascular Diseases in [place], [place] [address] [place] [phone] Jerardo Buckley M.D., Ph.D. [address] [place] [phone] Atrial Fibrillation Unspecified (HCC) 11/24/2024 8:05 AM CARE TRANSITIONS MANAGER - 11/24/2024 11:47 AM CARE TRANSITIONS MANAGER Surgery Division of Cardiovascular Diseases in [place], [place] [address] [place] [phone] Jerardo Buckley M.D., Ph.D. [address] [place] [phone] PULSED FIELD ABLATION documented as of this encounter Visit Diagnoses Diagnosis Thrombosis Deep Vein Personal History- Primary Nursing Home (Current) Anticoagulant Treatment Monitoring For Therapeutic Drug Therapy Atrial Fibrillation Paroxysmal (HCC) Atrial Fibrillation Unspecified (HCC)- Primary Atrial Fibrillation Unspecified (HCC) documented in this encounter Additional Health Concerns Assessment Noted Time PHQ-9 Depression Total Score: 8 04/26/20 24 10:43 AM CDT documented as of this encounter Care Teams Redrying Machine Operator Relationship Specialty Start Date End Date Emilia Lincoln M.D. [address] [place] [phone] PCP - General Family Medicine 08/13/23 documented as of this encounter
--- OUTSIDE RECORDS SUMMARY | 2024-09-14 09:49 | XMS_ITS | Encounter Summary ---
Author Organization [facility] Address [address] [place] [address] Care Team Providers Care Folder Hand Name Role Phone Emilia Lincoln M.D. Primary Care Provider +1- [phone] Reason for Referral * Outpatient (Routine) - Closed Specialty Diagnoses / Procedures Referred By Contac t Referred To Contact Anticoagulation Diagnoses Thrombosis Deep Vein Personal History Group Home (Current) Anticoagulant Treatment Monitoring For Therapeutic Drug Therapy Atrial Fibrillation Paroxysmal (HCC) Emilia Lincoln M.D. [address] [place] [phone] Phone: tel: fax: [facility] Referral ID Status Reason Start Date Expiration Date Visits Re quested Visits Authorized [id number] Closed 06/12/2024 12/12/2025 1 1 Reason for Visit * Outpatient (Routine) - Authorized Specialty Diagnoses / Procedures Referred By Contac t Referred To Contact Anticoagulation Emilia Lincoln M.D. [address] [place] [phone] Phone: tel: fax: [facility] Referral ID Status Reason Start Date Expiration Date V isits Requested Visits Authorized [id number] Authorized 05/15/2024 11/14/2025 300 300 Encounter Details Date Type Department Care Team (Latest Contact Info) Description 06/12/2024 3:00 PM CDT Anticoagulation Visit Department of Anticoagulation in [place], [place] [address] [place] [address] Emilia Lincoln M.D. [address] [phone] Thrombosis Deep Vein Personal History (Primary Dx); [...] often do you attend chur ch or rastafari services? More than 4 times [...] PHQ-2 Score 3 04/26/2024 [facility] - [facility] Questionnaire Answer [...] Master's degree (e.g., MA, MS, Tacho, MEd, RESEARCH PROGRAM MANAGER, EARLE) 06/27/2019 Comments No Sex and Gender Information Value Date Recorded Sex Assigned at Female 11/24/2017 7:34 PM RESEARCH HOME ECONOMIST Legal Sex Female 4:28 AM RESEARCH HOME ECONOMIST Gender Identity Female 05/03/2021 11:34 AM CDT [...] please call Primary Care Anticoagulation Program at [phone] from 7:30 am to 4:30 pm. Wednesday-Wednesday [...] if you start any herbal or other ydec-yju-vbgqobk product (check with your doctor, a nurse, [...] (Latest Contact Info) Description 09/25/2024 9:45 AM RESEARCH HOME ECONOMIST Anticoagulation Visit Department of Anticoagulation in [place], [place] [address] [place] [phone] Emilia Lincoln M.D. [address] [place] [phone] 11/20/2024 8:30 AM RESEARCH HOME ECONOMIST Clinical Communication Virtual Review in [place], [place] 200 [place] [address] 11/23/2024 9:40 AM RESEARCH HOME ECONOMIST Appointment Department of Laboratory Medicine and Pathology, [facility] in [place], [place] [address] [place] [phone] Jerardo Buckley M.D., Ph.D. [address] [place] [phone] 11/23/2024 10:00 AM RESEARCH HOME ECONOMIST Ancillary Procedure Department of Cardiovascular Medicine in [place], [place] [address] [place] [phone] Jerardo Buckley M.D., Ph.D. [address] [place] [phone] 11/23/2024 10:40 AM RESEARCH HOME ECONOMIST Appointment Department of Cardiovascular Diseases in [place], [place] [address] [place] [phone] Jerardo Buckley M.D., Ph.D. [address] [place] [phone] Discharge Disposition: Home or Self Care 11/23/2024 1:00 PM RESEARCH HOME ECONOMIST Office Visit Department of Cardiovascular Medicine in [place], [place] [address] [place] [phone] Melissa Henriquez P.A.-C., M.S. [address] [place] [phone] 11/23/2024 3:00 PM RESEARCH HOME ECONOMIST Appointment Department of Radiology, [facility], in [place], [place] [address] [place] [phone] Jerardo Buckley M.D., Ph.D. [address] [place] [phone] 11/24/2024 8:05 AM RESEARCH HOME ECONOMIST Hospital Encounter Division of Cardiovascular Diseases in [place], [place] [address] [place] [phone] Jerardo Buckley M.D., Ph.D. [address] [place] [address] Atrial Fibrillation Unspecified (HCC) 11/24/2024 8:05 AM RESEARCH HOME ECONOMIST - 11/24/2024 11:47 AM RESEARCH HOME ECONOMIST Surgery Division of Cardiovascular Diseases in [place], [place] [address] [place] [address] Jerardo Buckley M.D., Ph.D. [address] [place] [address] PULSED FIELD ABLATION Scheduled Referrals Name Type Priority Associated Diagnoses Orde r Schedule Anticoagulation nurse visit (clinic) Outpatient Referral Routine Thrombosis Deep Vein Personal History Business Consultant (Current) Anticoagulant Treatment Monitoring For Therapeutic Drug [...] ADD-ON Final Resul t Performing Organization Address [facility]/ZIP Co de Phone Number PATIENT POINT OF CARE DEVICE * Prothrombin Time (PT) (06/05/2024) EXT INR 2.50 PATIENT PO INT OF CARE DEVICE Comment:SELF Blood (Blood, Venous) Historical Provider LAB BLOOD ADD-ON Final Resul t PATIENT POINT OF CARE DEVICE documented in this encounter Visit Diagnoses Diagnosis Thrombosis Deep Vein Personal History- Primary Business Consultant (Current) Anticoagulant Treatment Monitoring For Therapeutic Drug Therapy Atrial Fibrillation Paroxysmal (HCC) Atrial Fibrillation Unspecified (HCC)- Primary Atrial Fibrillation Unspecified (HCC) documented in this encounter Additional Health Concerns Assessment Noted Time PHQ-9 Depression Total Score: 8 04/26/20 24 10:43 AM CDT documented as of this encounter Care Teams Folder Hand Relationship Specialty Start Date End Date Emilia Lincoln M.D. [address] [place] [phone] PCP - General Family Medicine 08/13/23 documented as of this encounter
--- OUTSIDE RECORDS SUMMARY | 2024-09-14 09:49 | XMS_ITS | Encounter Summary ---
Author Organization [facility] Address [address] [place] [address] Care Team Providers Care Network Technician Name Role Phone Emilia Lincoln M.D. Primary Care Provider +1- [phone] Reason for Referral * Outpatient (Routine) - Authorized Specialty Diagnoses / Procedures Referred By Contac t Referred To Contact Diagnoses Atrial Fibrillation Paroxysmal (HCC) Procedures ECG 12 Lead Jerardo Buckley M.D., Ph.D. 200 [place] [address] Phone: tel: fax: [facility] Referral ID Status Reason Start Date Expiration Date V isits Requested Visits Authorized [id number] Authorized 07/18/2024 07/18/2025 1 1 * Outpatient (Routine) - Authorized Specialty Diagnoses / Procedures Referred By Contac t Referred To Contact Diagnoses Atrial Fibrillation Paroxysmal (HCC) Procedures ECG Heart rhythm monitor (Holter) Jerardo Buckley M.D., Ph.D. [address] [place] [phone] Phone: tel: fax: [facility] Referral ID Status Reason Start Date Expiration Date V isits Requested Visits Authorized [id number] Authorized 07/18/2024 07/18/2025 1 1 * Outpatient (Routine) - Authorized Specialty Diagnoses / Procedures Referred By Evie saxena Referred To Contact Cardiovascular Disease Jerardo Buckley M.D., Ph.D. [address] [place] [phone] Phone: tel: fax: [facility] Referral ID Status Reason Start Date Expiration Date V isits Requested Visits Authorized [id number] Authorized 07/18/2024 01/17/2026 1 1 Scheduling Instructions Please schedule a visit with Dr. Buckley in March 2024 with tests then Reason for Visit * Outpatient (Routine) - Closed Specialty Diagnoses / Procedures Referred By Evie saxena Referred To Contact Cardiovascular Disease Jerardo Buckley M.D., Ph.D. [address] [place] [phone] Phone: tel: fax: [facility] Referral ID Status Reason Start Date Expiration Date Visits Re quested Visits Authorized [id number] Closed 11/03/2023 11/02/2026 1 1 Encounter Details Date Type Department Care Team (Latest Contact Info) Description 07/18/2024 11:00 AM CDT Office Visit Department of Cardiovascular Medicine in [place], [place] [address] [place] [phone] Jerardo Buckley M.D., Ph.D. [address] [place] [phone] Obesity Body Mass Index 30-39.9 Adult (Primary [...] week 02/25/2022 How often do you attend [facility] or episcopal services? More than 4 times per year [...] Answer Date Recorded PHQ-2 Score 3 04/26/2024 [facility] of Occupat ional Health - Occupational Stress [...] your living situation today? I have a [facility] place to live 05/26/2023 Education Answer Date Recorded What is the highest level of school you have completed or the highest degree you have received? Master's degree (e.g., MA, MS, Tacho, MEd, ROCK CRUSHER, EARLE) 06/27/2019 Comments No Sex and Gender Information Value Date Recorded Sex Assigned at Female 11/24/2017 7:34 PM PAPER CONTROL CLERK Legal Sex Female 4:28 AM PAPER CONTROL CLERK Gender Identity Female 05/03/2021 11:34 AM CDT [...] Buckley M.D., Ph.D. CT CT Job ID: [id number] documented in this encounter Plan of Treatment Upcoming Encounters Date Type Department Care Team (Latest Contact Info) Description 09/25/2024 9:45 AM PAPER CONTROL CLERK Anticoagulation Visit Department of Anticoagulation in [address] [phone] Emilia Lincoln M.D. [address] [place] [phone] 11/20/2024 8:30 AM PAPER CONTROL CLERK Clinical Communication Virtual Review in [address] [phone] 11/23/2024 9:40 AM PAPER CONTROL CLERK Appointment Department of Laboratory Medicine and Pathology, [facility], in [address] [phone] Jerardo Buckley M.D., Ph.D. [address] [place] [phone] 11/23/2024 10:00 AM PAPER CONTROL CLERK Ancillary Procedure Department of Cardiovascular Medicine in [place], [place] [address] [place] [phone] Jerardo Buckley M.D., Ph.D. [address] [place] [phone] 11/23/2024 10:40 AM PAPER CONTROL CLERK Appointment Department of Cardiovascular Diseases in [place], [place] [address] [place] [phone] Jerardo Buckley M.D., Ph.D. [address] [place] [phone] Discharge Disposition: Home or Self Care 11/23/2024 1:00 PM PAPER CONTROL CLERK Office Visit Department of Cardiovascular Medicine in [place], [place] [address] [place] [phone] Melissa Henriquez P.A.-C., M.S. [address] [place] [phone] 11/23/2024 3:00 PM PAPER CONTROL CLERK Appointment Department of Radiology, [facility], in [place], [place] [address] [place] [phone] Jerardo Buckley M.D., Ph.D. [address] [place] [phone] 11/24/2024 8:05 AM PAPER CONTROL CLERK Hospital Encounter Division of Cardiovascular Diseases in [address] [phone] Jerardo Buckley M.D., Ph.D. [address] [place] [phone] Atrial Fibrillation Unspecified (HCC) 11/24/2024 8:05 AM PAPER CONTROL CLERK - 11/24/2024 11:47 AM PAPER CONTROL CLERK Surgery Division of Cardiovascular Diseases in [address] [phone] Jerardo Buckley M.D., Ph.D. [address] [place] [address] PULSED FIELD ABLATION Scheduled Orders Name Type [...] documented as of this encounter Care Teams Network Technician Relationship Specialty Start Date End Date Emilia Lincoln M.D. [address] [place] [phone] PCP - General Family Medicine 08/13/23 documented as of this encounter
--- OUTSIDE RECORDS SUMMARY | 2024-09-14 09:49 | XMS_ITS | Encounter Summary ---
Author Organization [facility] Address [address] [place] [address] Care Team Providers Care Director Of Institutional Research Name Role Phone Emilia Lincoln M.D. Primary Care Provider +1- [phone] Reason for Referral * Outpatient (Routine) - Closed Specialty Diagnoses / Procedures Referred By Contac t Referred To Contact Anticoagulation Emilia Lincoln M.D. [address] [place] [phone] Phone: tel: fax: [facility] Referral ID Status Reason Start Date Expiration Date Visits Re quested Visits Authorized [id number] Closed 07/31/2024 01/30/2026 1 1 Scheduling Instructions 4 weeks Reason for Visit * Outpatient (Routine) - Closed Specialty Diagnoses / Procedures Referred By Contac t Referred To Contact Anticoagulation Diagnoses Thrombosis Deep Vein Personal History Fpc (Current) Anticoagulant Treatment Monitoring For Therapeutic Drug Therapy Atrial Fibrillation Paroxysmal (HCC) Emilia Lincoln M.D. [address] [place] [phone] Phone: tel: fax: [facility] Referral ID Status Reason Start Date Expiration Date Visits Re quested Visits Authorized [id number] Closed 07/03/2024 01/02/2026 1 1 Encounter Details Date Type Department Care Team (Latest Contact Info) Description 07/31/2024 9:45 AM CDT Anticoagulation Visit Department of Anticoagulation in [place], [place] [address] [place] [address] Emilia Lincoln M.D. [address] [place] [phone] Thrombosis Deep Vein Personal History; General Cargo Clerk (Current) Anticoagulant Treatment; Monitoring For Therapeutic [...] often do you attend chur ch or methodist services? More than 4 times per year 02/25/2022 Do you belong to any clubs o r organizations such as restoration groups, unions, fraternal or athletic groups, or [...] Answer Date Recorded PHQ-2 Score 3 04/26/2024 [facility] Occupat ional Health - Occupational [...] Master's degree (e.g., MA, MS, Tacho, MEd, REPAIR CLERK, EARLE) 06/27/2019 Comments No Sex and Gender Information Value Date Recorded Sex Assigned at Female 11/24/2017 7:34 PM LABOR EXPEDITER Legal Sex Female 4:28 AM LABOR EXPEDITER Gender Identity Female 05/03/2021 11:34 AM CDT [...] please call Primary Care Anticoagulation Program at [phone] from 7:30 am to 4:30 pm. Wednesday-Wednesday [...] if you start any herbal or other [id number] product (check with your doctor, a nurse, [...] (Latest Contact Info) Description 09/25/2024 9:45 AM LABOR EXPEDITER Anticoagulation Visit Department of Anticoagulation in [address] [phone] Emilia Lincoln M.D. [address] [place] [phone] 11/20/2024 8:30 AM LABOR EXPEDITER Clinical Communication Virtual Review in [address] [phone] 11/23/2024 9:40 AM LABOR EXPEDITER Appointment Department of Laboratory Medicine and Pathology, [facility], in [address] [address] Jerardo Buckley M.D., Ph.D. [address] [place] [phone] 11/23/2024 10:00 AM LABOR EXPEDITER Ancillary Procedure Department of Cardiovascular Medicine in [address] [phone] Jerardo Buckley M.D., Ph.D. [address] [place] [phone] 11/23/2024 10:40 AM LABOR EXPEDITER Appointment Department of Cardiovascular Diseases in [place], [place] [address] [place] [phone] Jerardo Buckley M.D., Ph.D. [address] [place] [phone] Discharge Disposition: Home or Self Care 11/23/2024 1:00 PM LABOR EXPEDITER Office Visit Department of Cardiovascular Medicine in [place], [place] [address] [place] [phone] Melissa Henriquez P.A.-C., M.S. [address] [place] [phone] 11/23/2024 3:00 PM LABOR EXPEDITER Appointment Department of Radiology, [facility] in [place], [place] [address] [place] [phone] Jerardo Buckley M.D., Ph.D. [address] [place] [phone] 11/24/2024 8:05 AM LABOR EXPEDITER Hospital Encounter Division of Cardiovascular Diseases in [address] [phone] Jerardo Buckley M.D., Ph.D. [address] [place] [phone] Atrial Fibrillation Unspecified (HCC) 11/24/2024 8:05 AM LABOR EXPEDITER - 11/24/2024 11:47 AM LABOR EXPEDITER Surgery Division of Cardiovascular Diseases in [address] [phone] Jerardo Buckley M.D., Ph.D. [address] [place] [phone] PULSED FIELD ABLATION Scheduled Referrals Name Type [...] Diagnoses Diagnosis Thrombosis Deep Vein Personal History Fpc (Current) Anticoagulant Treatment Monitoring For Therapeutic Drug Therapy Atrial Fibrillation Paroxysmal (HCC) Atrial Fibrillation Unspecified (HCC)- Primary Atrial Fibrillation Unspecified (HCC) documented in this encounter Additional Health Concerns Assessment Noted Time PHQ-9 Depression Total Score: 8 04/26/20 24 10:43 AM CDT documented as of this encounter Care Teams Director Of Institutional Research Relationship Specialty Start Date End Date Emilia Lincoln M.D. [address] [place] [phone] PCP - General Family Medicine 08/13/23 documented as of this encounter
--- OUTSIDE RECORDS SUMMARY | 2024-09-14 09:49 | XMS_ITS | Encounter Summary ---
Author Organization [facility] Address [address] [place] [address] Care Team Providers Care Head Bone Grinder Name Role Phone Emilia Lincoln M.D. Primary Care Provider +1- [phone] Reason for Visit * Reason Onset Date Comments PandaDoc Form 08/14/2024 [employer] (CPA P physician's order 08/02/24 Encounter Details Date Type Department Care Team (Latest Contact Info) Description 08/14/2024 Clinical Communication Department of Family Medicine, [facility], in [address] [phone] Emilia Lincoln M.D. [address] [place] [phone] PandaDoc Form ([employer] (CPAP physician's order [...] How often do you attend chur or taoist services? More than 4 times per year [...] Date Recorded PHQ-2 Score 3 04/26/2024 [facility] of Occupat ional Health - Occupational Stress [...] living situation today? I have a [facility] place to live 05/26/2023 Education Answer Date Recorded What is the highest level of school you have completed or the highest degree you have received? Master's degree (e.g., MA, MS, Tacho, MEd, [employer], EARLE) 06/27/2019 Comments No Sex and Gender Information Value Date Recorded Sex Assigned at Female 11/24/2017 7:34 PM DIRECTOR AND PROFESSOR Legal Sex Female 4:28 AM DIRECTOR AND PROFESSOR Gender Identity Female 05/03/2021 11:34 AM CDT Sexual Orientation Straight 05/03/2021 11 :34 AM CDT documented as of this encounter Miscellaneous Notes * Telephone Encounter - Alexandra Daly Oseas - 08/29/2024 8:30 AM CDT Completed form(s) faxed back to [facility], and sent to [facility] for scanning. * Telephone Encounter - Alexandra Daly - 08/17/2024 9:19 AM CDT Re-faxed to [facility] ([phone]) on 08/17/24, and included the following statement: [...] AM CDT Completed form(s) faxed back to [facility], and sent to [facility] for scanning. * Telephone Encounter - Alexandra Daly - 08/14/2024 2:56 PM CDT Form was routed to Emilia Lincoln MD, for electronic review/signature. TAXI PROPRIETOR: [facility] PHONE NUMBER: [phone] INFO REQUESTED: CPAP physician's order 08/02/24 INSTRUCTIONS: Fax completed form(s) to [phone] documented in this encounter Plan of Treatment Upcoming Encounters Date Type Department Care Team (Latest Contact Info) Description 09/25/2024 9:45 AM DIRECTOR AND PROFESSOR Anticoagulation Visit Department of Anticoagulation in [place], [place] [address] [place] [address] Emilia Lincoln M.D. [address] [place] [phone] 11/20/2024 8:30 AM DIRECTOR AND PROFESSOR Clinical Communication Virtual Review in [place], [place] 200 [place] [address] 11/23/2024 9:40 AM DIRECTOR AND PROFESSOR Appointment Department of Laboratory Medicine and Pathology, [facility] in [place], [place] [address] [place] [phone] Jerardo Buckley M.D., Ph.D. [address] [place] [phone] 11/23/2024 10:00 AM DIRECTOR AND PROFESSOR Ancillary Procedure Department of Cardiovascular Medicine in [address] [phone] Jerardo Buckley M.D., Ph.D. [address] [place] [phone] 11/23/2024 10:40 AM DIRECTOR AND PROFESSOR Appointment Department of Cardiovascular Diseases in [address] [phone] Jerardo Buckley M.D., Ph.D. [address] [place] [phone] Discharge Disposition: Home or Self Care 11/23/2024 1:00 PM DIRECTOR AND PROFESSOR Office Visit Department of Cardiovascular Medicine in [address] [phone] Melissa Henriquez P.A.-C., M.S. [address] [place] [phone] 11/23/2024 3:00 PM DIRECTOR AND PROFESSOR Appointment Department of Radiology, [facility] in [place], [place] [address] [place] [phone] Jerardo Buckley M.D., Ph.D. [address] [place] [phone] 11/24/2024 8:05 AM DIRECTOR AND PROFESSOR Hospital Encounter Division of Cardiovascular Diseases in [address] [address] Jerardo Buckley M.D., Ph.D. [address] [place] [phone] Atrial Fibrillation Unspecified (HCC) 11/24/2024 8:05 AM DIRECTOR AND PROFESSOR - 11/24/2024 11:47 AM DIRECTOR AND PROFESSOR Surgery Division of Cardiovascular Diseases in [address] [phone] Jerardo Buckley M.D., Ph.D. [address] [place] [phone] PULSED FIELD ABLATION documented as of this encounter Visit Diagnoses Not on filedocumented in this encounter Additional Health Concerns Assessment Noted Time PHQ-9 Depression Total Score: 8 04/26/20 24 10:43 AM CDT documented as of this encounter Care Teams Head Bone Grinder Relationship Specialty Start Date End Date Emilia Lincoln M.D. [address] [place] [phone] PCP - General Family Medicine 08/13/23 documented as of this encounter
--- OUTSIDE RECORDS SUMMARY | 2024-09-14 09:49 | XMS_ITS | Encounter Summary ---
Author Organization [facility] Address [address] [place] [address] Care Team Providers Care Mud Plant Operator Name Role Phone Emilia Lincoln M.D. Primary Care Provider +1- [phone] Encounter Details Date Type Department Care Team (Late st Contact Info) Description 08/13/2024 Orders Only Division of Cardiovascular Diseases in [place], [place] [address] [place] [phone] Jerardo Buckley M.D., Ph.D. [address] [place] [phone] Social History Tobacco Use Types Packs/Day Years [...] How often do you attend chur or samaritan services? More than 4 times per year 02/25/2022 Do you belong to any clubs o r organizations such as mu-ism groups, unions, fraternal or athletic groups, or [...] Answer Date Recorded PHQ-2 Score 3 04/26/2024 [facility] of Occupat ionky Health - Occupational [...] your living situation today? I have a [facility] place to live 05/26/2023 Education Answer Date Recorded What is the highest level of school you have completed or the highest degree you have received? Master's degree (e.g., MA, MS, Tacho, MEd, PANEL LAMINATOR, EARLE) 06/27/2019 Comments No Sex and Gender Information Value Date Recorded Sex Assigned at Female 11/24/2017 7:34 PM COVERAGE SPECIALIST Legal Sex Female 4:28 AM COVERAGE SPECIALIST Gender Identity Female 05/03/2021 11:34 AM CDT Sexual Orientation Straight 05/03/2021 11 :34 AM CDT documented as of this encounter Plan of Treatment Upcoming Encounters Date Type Department Care Team (Latest Contact Info) Description 09/25/2024 9:45 AM COVERAGE SPECIALIST Anticoagulation Visit Department of Anticoagulation in [place], [place] [address] [place] [address] Emilia Lincoln M.D. [address] [place] [phone] 11/20/2024 8:30 AM COVERAGE SPECIALIST Clinical Communication Virtual Review in [place], [place] 200 [place] [phone] 11/23/2024 9:40 AM COVERAGE SPECIALIST Appointment Department of Laboratory Medicine and Pathology, [facility] in [place], [place] [address] [place] [phone] Jerardo Buckley M.D., Ph.D. [address] [place] [phone] 11/23/2024 10:00 AM COVERAGE SPECIALIST Ancillary Procedure Department of Cardiovascular Medicine in [place], [place] [address] [place] [phone] Jerardo Buckley M.D., Ph.D. [address] [place] [phone] 11/23/2024 10:40 AM COVERAGE SPECIALIST Appointment Department of Cardiovascular Diseases in [address] [phone] Jerardo Buckley M.D., Ph.D. [address] [place] [phone] Discharge Disposition: Home or Self Care 11/23/2024 1:00 PM COVERAGE SPECIALIST Office Visit Department of Cardiovascular Medicine in [address] [phone] Melissa Henriquez P.A.-C., M.S. [address] [place] [phone] 11/23/2024 3:00 PM COVERAGE SPECIALIST Appointment Department of Radiology, [facility], in [address] [phone] Jerardo Buckley M.D., Ph.D. [address] [place] [phone] 11/24/2024 8:05 AM COVERAGE SPECIALIST Hospital Encounter Division of Cardiovascular Diseases in [place], [place] [address] [place] [address] Jerardo Buckley M.D., Ph.D. [address] [place] [phone] Atrial Fibrillation Unspecified (HCC) 11/24/2024 8:05 AM COVERAGE SPECIALIST - 11/24/2024 11:47 AM COVERAGE SPECIALIST Surgery Division of Cardiovascular Diseases in [place], [place] [address] [place] [phone] Jerardo Buckley M.D., Ph.D. [address] [place] [phone] PULSED FIELD ABLATION documented as of this encounter Visit Diagnoses Not on filedocumented in this encounter Additional Health Concerns Assessment Noted Time PHQ-9 Depression Total Score: 8 04/26/20 24 10:43 AM CDT documented as of this encounter Care Teams Mud Plant Operator Relationship Specialty Start Date End Date Emilia Lincoln M.D. [address] [place] [phone] PCP - General Family Medicine 08/13/23 documented as of this encounter
--- OUTSIDE RECORDS SUMMARY | 2024-09-14 09:49 | XMS_ITS | Encounter Summary ---
Author Organization [facility] Address [address] [place] [address] Care Team Providers Care Milling Operator Name Role Phone Emilia Lincoln M.D. Primary Care Provider +1- [phone] Reason for Referral * Outpatient (Routine) - Authorized Specialty Diagnoses / Procedures Referred By Contac t Referred To Contact Diagnoses Atrial Fibrillation Paroxysmal (HCC) Procedures ECG Heart rhythm monitor (Holter) Jerardo Buckley M.D., Ph.D. 200 [place] [address] Phone: tel: fax: [facility] Referral ID Status Reason Start Date Expiration Date V isits Requested Visits Authorized [id number] Authorized 11/03/2023 11/02/2024 1 1 Reason for Visit * Outpatient (Routine) - Authorized Specialty Diagnoses / Procedures Referred By Contac t Referred To Contact Diagnoses Atrial Fibrillation Paroxysmal (HCC) Procedures ECG Heart rhythm monitor (Holter) Jerardo Buckley M.D., Ph.D. [address] [place] [phone] Phone: tel: fax: [facility] Referral ID Status Reason Start Date Expiration Date V isits Requested Visits Authorized [id number] Authorized 11/03/2023 11/02/2024 1 1 Encounter Details Date Type Department Care Team (Latest Contact Info) Description 07/11/2024 2:20 PM CDT - 07/11/2024 11:59 PM CDT Hospital Encounter Department of Cardiovascular Diseases in [place], [place] [address] [place] [address] Jerardo Buckley M.D., Ph.D. [address] [place] [address] Atrial Fibrillation Paroxysmal (HCC) Discharge Disposition: Home [...] often do you attend chur ch or gnosticist services? More than 4 times per year [...] Date Recorded PHQ-2 Score 3 04/26/2024 [facility] of Occupat ional Health - Occupational [...] Master's degree (e.g., MA, MS, Tacho, MEd, TOP CLEANER, EARLE) 06/27/2019 Comments No Sex and Gender Information Value Date Recorded Sex Assigned at Female 11/24/2017 7:34 PM WIRELESS TELEGRAPHER Legal Sex Female 4:28 AM WIRELESS TELEGRAPHER Gender Identity Female 05/03/2021 11:34 AM CDT [...] (COUMADIN) 5 mg tabletIndications: Atrial Fibrillation Paroxysmal (HCC),[place] Park Code Enforcement Officer (Current) Anticoagulant Treatment,Thrombos is Deep Vein Acute [...] (Latest Contact Info) Description 09/25/2024 9:45 AM WIRELESS TELEGRAPHER Anticoagulation Visit Department of Anticoagulation in [place], [place] [address] [place] [phone] Emilia Lincoln M.D. [address] [place] [phone] 11/20/2024 8:30 AM WIRELESS TELEGRAPHER Clinical Communication Virtual Review in [place], [place] 200 [place] [phone] 11/23/2024 9:40 AM WIRELESS TELEGRAPHER Appointment Department of Laboratory Medicine and Pathology, [facility], in [address] [phone] Jerardo Buckley M.D., Ph.D. [address] [place] [phone] 11/23/2024 10:00 AM WIRELESS TELEGRAPHER Ancillary Procedure Department of Cardiovascular Medicine in [address] [phone] Jerardo Buckley M.D., Ph.D. [address] [place] [phone] 11/23/2024 10:40 AM WIRELESS TELEGRAPHER Appointment Department of Cardiovascular Diseases in [address] [phone] Jerardo Buckley M.D., Ph.D. [address] [place] [phone] Discharge Disposition: Home or Self Care 11/23/2024 1:00 PM WIRELESS TELEGRAPHER Office Visit Department of Cardiovascular Medicine in [place], [place] [address] [place] [address] Melissa Henriquez P.A.-C., M.S. [address] [place] [phone] 11/23/2024 3:00 PM WIRELESS TELEGRAPHER Appointment Department of Radiology, [facility] in [place], [place] [address] [place] [address] Jerardo Buckley M.D., Ph.D. [address] [place] [phone] 11/24/2024 8:05 AM WIRELESS TELEGRAPHER Hospital Encounter Division of Cardiovascular Diseases in [place], [place] [address] [place] [phone] Jerardo Buckley M.D., Ph.D. [address] [place] [phone] Atrial Fibrillation Unspecified (HCC) 11/24/2024 8:05 AM WIRELESS TELEGRAPHER - 11/24/2024 11:47 AM WIRELESS TELEGRAPHER Surgery Division of Cardiovascular Diseases in [place], [place] [address] [place] [phone] Jerardo Buckley M.D., Ph.D. [address] [place] [phone] PULSED FIELD ABLATION documented as of this encounter Procedures Procedure Name Priority Date/Time Associated Diagnosis Comments HOLTER MONITOR - IN CLINIC PRODUCTION CONTROL MANAGER Routine 07/12/2024 11:16 AM CDT Atrial Fibrillation Paroxysmal (HCC) documented in this encounter Results * HOLTER MONITOR - IN CLINIC PRODUCTION CONTROL MANAGER (07/12/2024 11:16 AM CDT) Min Heart [...] Duration 0 duration INFOBION IC MOME AF [place] 0 percent INFOBIONIC MOME Symptom Count 0 [...] complexes. 4. No symptomatic events were noted. [place] Technician: Rayne Casillas, CCT / Rosalba Gomez, CCT [...] complexes. 4. No symptomatic events were noted. Wellfield Technician: Rayne Casillas, CCT / Rosalba Gomez CCT [...] documented as of this encounter Care Teams Milling Operator Relationship Specialty Start Date End Date Emilia Lincoln M.D. [address] [place] [phone] PCP - General Family Medicine 08/13/23 documented as of this encounter
--- OUTSIDE RECORDS SUMMARY | 2024-09-14 09:49 | XMS_ITS | Encounter Summary ---
Author Organization [facility] Address [address] [place] [address] Care Team Providers Care Computer Graphics Illustrator Name Role Phone Emilia Lincoln M.D. Primary Care Provider +1- [phone] Reason for Visit * Outpatient (Routine) - Authorized Specialty Diagnoses / Procedures Referred By Contmichael t Referred To Contact Anticoagulation Emilia Lincoln M.D. [address] [place] [phone] Phone: tel: fax: [facility] Referral ID Status Reason Start Date Expiration Date V isits Requested Visits Authorized [id number] Authorized 05/15/2024 11/14/[phone] Encounter Details Date Type Department Care Team (Latest Contact Info) Description 08/21/2024 10:45 AM CDT Anticoagulation Visit Department of Anticoagulation in [place], [place] [address] [place] [address] Emilia Lincoln M.D. [address] [place] [phone] Thrombosis Deep Vein Personal History (Primary Dx); Big Data Lead (Current) Anticoagulant Treatment; Monitoring For Therapeutic Drug [...] week 02/25/2022 How often do you attend [facility] or evangelical services? More than 4 times [...] Answer Date Recorded PHQ-2 Score 3 04/26/2024 [facility] [place] of Occupat ional Health - Occupational Stress [...] living situation today? I have a [facility] place to live 05/26/2023 Education Answer Date Recorded What is the highest level of school you have completed or the highest degree you have received? Master's degree (e.g., MA, MS, Tacho, MEd, FOOD MIXER REPAIRER, EARLE) 06/27/2019 Comments No Sex and Gender Information Value Date Recorded Sex Assigned at Female 11/24/2017 7:34 PM ENDING MACHINE OPERATOR Legal Sex Female 4:28 AM ENDING MACHINE OPERATOR Gender Identity Female 05/03/2021 11:34 [...] please call Primary Care Anticoagulation Program at [phone] from 7:30 am to 4:30 pm. Wednesday-Wednesday . When To Contact Your Health Care Provider If you are experiencing any of the following symptoms, Call [phone] or go to the emergency room: chest [...] if you start any herbal or other xuzr-[id number]-[id number] product (check with your doctor, a nurse, [...] (Latest Contact Info) Description 09/25/2024 9:45 AM ENDING MACHINE OPERATOR Anticoagulation Visit Department of Anticoagulation in [address] [phone] Emilia Lincoln M.D. [address] [place] [phone] 11/20/2024 8:30 AM ENDING MACHINE OPERATOR Clinical Communication Virtual Review in [address] [phone] 11/23/2024 9:40 AM ENDING MACHINE OPERATOR Appointment Department of Laboratory Medicine and Pathology, [facility] in [address] [phone] Jerardo Buckley M.D., Ph.D. [address] [place] [phone] 11/23/2024 10:00 AM ENDING MACHINE OPERATOR Ancillary Procedure Department of Cardiovascular Medicine in [address] [phone] Jerardo Buckley M.D., Ph.D. [address] [place] [phone] 11/23/2024 10:40 AM ENDING MACHINE OPERATOR Appointment Department of Cardiovascular Diseases in [address] [phone] Jerardo Buckley M.D., Ph.D. [address] [place] [phone] Discharge Disposition: Home or Self Care 11/23/2024 1:00 PM ENDING MACHINE OPERATOR Office Visit Department of Cardiovascular Medicine in [place], [place] [address] [place] [phone] Melissa Henriquez P.A.-C., M.S. [address] [place] [phone] 11/23/2024 3:00 PM ENDING MACHINE OPERATOR Appointment Department of Radiology, [facility] in [place], [place] [address] [place] [address] Jerardo Buckley M.D., Ph.D. [address] [place] [phone] 11/24/2024 8:05 AM ENDING MACHINE OPERATOR Hospital Encounter Division of Cardiovascular Diseases in [place], [place] [address] [place] [phone] Jerardo Buckley M.D., Ph.D. [address] [place] [phone] Atrial Fibrillation Unspecified (HCC) 11/24/2024 8:05 AM ENDING MACHINE OPERATOR - 11/24/2024 11:47 AM ENDING MACHINE OPERATOR Surgery Division of Cardiovascular Diseases in [place], [place] [address] [place] [phone] Jerardo Buckley M.D., Ph.D. [address] [place] [phone] PULSED FIELD ABLATION documented as of this [...] ADD-ON Final Resul t Performing Organization Address City/[facility]/ZIP Co de Phone Number PATIENT POINT [...] documented as of this encounter Care Teams Computer Graphics Illustrator Relationship Specialty Start Date End Date Emilia Lincoln M.D. [address] [place] [phone] PCP - General Family Medicine 08/13/23 documented as of this encounter
--- OUTSIDE RECORDS SUMMARY | 2024-09-14 09:49 | XMS_ITS | Referral Summary ---
Author Organization [facility] Address [address] [place] [address] Care Team Providers Care Egg Caser Name Role Phone Emilia Lincoln M.D. Primary Care Provider +1- [phone] Source Comments Patient records contain information from all sites at [facility]. For routine questions regarding patient records, call [phone] during business hours, M-F 8:00 AM - 5:00 PM Central Time. Record requests for emergency care only can be directed to [phone] at any time.[facility] Encounters Date Type Department Care Team Description 08/29/2024 9:00 AM CDT Anticoagulation Visit Department of Anticoagulation in [place], [place] [address] [place] [address] Emilia Lincoln M.D. Thrombosis Deep Vein Personal History (Primary Dx); Chcf (Current) Anticoagulant Treatment; Monitoring For Therapeutic Drug Therapy; Atrial Fibrillation Paroxysmal (HCC) 08/21/2024 10:45 AM CDT Anticoagulation Visit Department of Anticoagulation in [place], [place] [address] [place] [address] Emilia Lincoln M.D. Thrombosis Deep Vein Personal History (Primary Dx); Chcf (Current) Anticoagulant Treatment; Monitoring For Therapeutic Drug Therapy; Atrial Fibrillation Paroxysmal (HCC) 08/14/2024 Clinical Communication Department of Family Medicine, [facility], in [address] [phone] Emilia Lincoln M.D. PandaDoc Form ([employer] (CPAP physician's order 08/02/24 ) 08/13/2024 Orders Only Division of Cardiovascular Diseases in [place], [place] [address] [place] [phone] Jerardo Buckley M.D., Ph.D. 07/31/2024 Clinical Communication Department of Cardiovascular Medicine in [address] [phone] Prescheduling, Provider Procedure Request (Ablation) 07/31/2024 9:45 AM CDT Anticoagulation Visit Department of Anticoagulation in [address] [phone] Emilia Lincoln M.D. Thrombosis Deep Vein Personal History; Chcf (Current) Anticoagulant Treatment; Monitoring For Therapeutic Drug Therapy; Atrial Fibrillation Paroxysmal (HCC) 07/24/2024 10:45 AM CDT Anticoagulation Visit Department of Anticoagulation in [address] [phone] Emilia Lincoln M.D. Thrombosis Deep Vein Personal History (Primary Dx); Chcf (Current) Anticoagulant Treatment; Monitoring For Therapeutic Drug Therapy; Atrial Fibrillation Paroxysmal (HCC) 07/18/2024 11:00 AM CDT Office Visit Department of Cardiovascular Medicine in [address] [phone] Jerardo Buckley M.D., Ph.D. Obesity Body Mass Index 30-39.9 Adult (Primary Dx); Atrial Fibrillation Paroxysmal (HCC) 07/11/2024 2:20 PM CDT - 07/11/2024 11:59 PM CDT Hospital Encounter Department of Cardiovascular Diseases in [address] [phone] Jerardo Buckley M.D., Ph.D. Atrial Fibrillation Paroxysmal (HCC) Discharge Disposition: Home or Self Care 07/10/2024 11:45 AM CDT Clinical Communication Virtual Review in [place], [place] 200 [place] [address] Pre-visit Intake 07/03/2024 8:15 AM CDT Anticoagulation Visit Department of Anticoagulation in [place], [place] [address] [place] [address] Emilia Lincoln M.D. Thrombosis Deep Vein Personal History; Chcf (Current) Anticoagulant Treatment; Monitoring For Therapeutic [...] (COUMADIN) 5 mg tabletIndications :Atrial Fibrillation Paroxysmal (HCC),Chcf (Current) Anticoagulant Treatment,Thrombo sis Deep Vein Acute [...] MG) BY MOUTH DAILY 90 tablet 3 12/20/20 23 Active DME CPAPIndications:O bstructive Sleep Apnea [...] - cardioversion, apparent NSR until wrapping up [facility] trip 07/23/18 - HR max 120 on metoprolol succinate 25 mg once daily - a.fib on exam today - discussed, to Rhythm Service for iv sotalol - back to Sleep Medicine for continued efforts re [facility]. 09/16/2021 NSR on sotalol 120 mg BID ?? Chcf (Current) Anticoagulant Treatment 11/2017 Overview (06/18/2022): 07/03/2019 [...] Team Monitoring For Therapeutic Drug Therapy 09/15/20 Sleep Apnea 07/25/2018 Overview (09/16/2021): #10 obstructive [...] deep compression, but otherwise benign exam - [facility] US negative - observe only. [...] - cardioversion, apparent NSR until wrapping up [facility] trip 07/23/18 - HR [...] no heartburn, no diarrhea. NEG exam at [facility] [place] 12/29, repeat exam benign 01/26. Discussed in [...] sleeping a lot on January vacation in [place] - glad that spouse was off golfing [...] COVID-19 09/08/2020 Anticoagulant Therapy [Z79.01] 10/02/2017 08/12/2018 Digital Printer (Current) Anticoagulant Treatment 10/09/2011 08/12/2018 Immunizations Name [...] week 02/25/2022 How often do you attend [facility] or temple services? More than 4 times per year [...] PHQ-2 Score 3 04/26/2024 [facility] - Occupational Stress Questionnaire Answer [...] Master's degree (e.g., MA, MS, Tacho, MEd, CARPET TECHNICIAN, EARLE) 06/27/2019 Comments No Sex and Gender Information Value Date Recorded Sex Assigned at Female 11/24/2017 7:34 PM PICTURES EDITOR Legal Sex Female 4:28 AM PICTURES EDITOR Gender Identity Female 05/03/2021 11:34 AM CDT Sexual Orientation Straight 05/03/2021 11 :34 AM CDT Last Filed Vital Signs Vital Sign Reading Time Taken Comments Blood Pressure 121/76 07/18/2024 10:46 AM CDT Pulse 80 07/18/2024 10:46 AM CDT Temperature 36.4 ??C (97.5 ??F) 11/03/2023 2:50 PM CS T Respiratory Rate 16 11/03/2023 5:34 PM PICTURES EDITOR Oxygen Saturation 96% 11/03/2023 9:29 AM PICTURES EDITOR Inhaled Oxygen Concentration - - Weight 93.1 kg (205 lb 4 oz) 07/18/2024 10:46 AM CDT Height 155.4 cm (5' 1.18) 07/18/2024 10:46 AM C DT Body Mass Index 38.55 07/18/2024 10:46 AM CDT Plan of Treatment Upcoming Encounters Date Type Department Care Team (Latest Contact Info) Description 09/25/2024 9:45 AM PICTURES EDITOR Anticoagulation Visit Department of Anticoagulation in [place], [place] [address] [place] [address] Emilia Lincoln M.D. [address] [place] [phone] 11/20/2024 8:30 AM PICTURES EDITOR Clinical Communication Virtual Review in [place], [place] [address] [place] [phone] 11/23/2024 9:40 AM PICTURES EDITOR Appointment Department of Laboratory Medicine and Pathology, [facility] in [place], [place] [address] [place] [phone] Jerardo Buckley M.D., Ph.D. [address] [place] [phone] 11/23/2024 10:00 AM PICTURES EDITOR Ancillary Procedure Department of Cardiovascular Medicine in [place], [place] [address] [place] [phone] Jerardo Buckley M.D., Ph.D. [address] [place] [phone] 11/23/2024 10:40 AM PICTURES EDITOR Appointment Department of Cardiovascular Diseases in [address] [phone] Jerardo Buckley M.D., Ph.D. [address] [place] [phone] Discharge Disposition: Home or Self Care 11/23/2024 1:00 PM PICTURES EDITOR Office Visit Department of Cardiovascular Medicine in [address] [phone] Melissa Henriquez P.A.-C., M.S. [address] [place] [phone] 11/23/2024 3:00 PM PICTURES EDITOR Appointment Department of Radiology, [facility], in [place], [place] [address] [place] [phone] Jerardo Buckley M.D., Ph.D. [address] [place] [phone] 11/24/2024 8:05 AM [facility] Hospital Encounter Division of Cardiovascular Diseases in [place], [place] [address] [place] [address] Jerardo Buckley M.D., Ph.D. [address] [place] [phone] Atrial Fibrillation Unspecified (HCC) 11/24/2024 8:05 AM PICTURES EDITOR - 11/24/2024 11:47 AM [facility] Surgery Division of Cardiovascular Diseases in [place], [place] [address] [place] [phone] Jerardo Buckley M.D., Ph.D. [address] [place] [phone] PULSED FIELD ABLATION Medical Devices Implanted Type Area Travel Counselor Device Identifier Shelf Expiration Date Model / Serial / Lot Knee Implant Knee Implant Knee J J Patella Rev Round 32m - Rodriguez [id number] Implanted:Qty: 1 on 09/11/2011 Knee Implant Other/Legacy - See Implant Description [employer] Description:Device Manufactu rer - J [employer]. Body Location - Other. Left. Device Status Text - [id number] [id number]. Depuy-Insert Stabilized Sz 3 10mm - Rodriguez [id number] Implanted:Qty: 1 on 09/11/2011 Knee Implant Other/Legacy - See Implant Description [employer] Description:Device Manufactu rer - J [employer]. Body Location - Other. Left. Device Status Text - [id number] [id number]. Sigma Post Stab.W Lug Fem Sz 3 Lt - Rodriguez [id number] Implanted:Qty: 1 on 09/11/2011 Knee Implant Other/Legacy - See Implant Description [employer] Description:Device Manufactu rer - J [employer] J Orth[employer]. Body Location - Other. Left. Device Status Text - [id number] [id number]. Depuy-Tib Tray Mod Cement Cocr Sz3 - Rodriguez [id number] Implanted:Qty: 1 on 09/11/2011 Knee Implant Other/Legacy - See Implant Description [employer] Description:Device Manufactu rer - J [employer] J Orth[employer]. Body Location - Other. Left. Device Status Text - [id number] [id number]. Conversions - Default Historical Implant Device Implanted:09/27 (Quantity not on file) Knee Implant Description:Device Status Te xt - Knee Imp. artificial left knee. Cement Bone Large - Rodriguez [id number] Implanted:Qty: 2 on 09/11/2011 Misc Other Aiken Description:Device Manufactu rer - Aiken Terell.. Device Status Text - [id number]. Ocular [...] Routine 07/17/2024 HOLTER MONITOR - IN CLINIC MECHANICAL INSPECTOR Routine 07/12/2024 11:16 AM CDT Atrial Fibrillation Paroxysmal (HCC) ECG Routine 07/11/2024 2:27 PM CDT Atrial Fibrillation Paroxysmal (HCC) PROTHROMBIN TIME (PT), P Routine 07/10/2024 PROTHROMBIN TIME (PT), P Routine 07/03/2024 PROTHROMBIN TIME (PT), P Routine 06/26/2024 PROTHROMBIN TIME (PT), P Routine 06/19/2024 SODIUM, S/P Routine 04/27/2024 8:42 AM CDT [...] Time (PT) (08/28/2024) Only the most recent of11 resultswithin the time period is included. EXT INR 2.70 PATIENT PO INT OF CARE DEVICE Blood (Blood, Venous) 08/28/2024 Narrative Resulting Agency Comment Home INR us Historical Provider LAB BLOOD ADD-ON Final Resul t PATIENT POINT OF CARE DEVICE * HOLTER MONITOR - IN CLINIC MECHANICAL INSPECTOR (07/12/2024 11:16 AM CDT) Min Heart Rate [...] Duration 0 duration INFOBION IC MOME AF Zillah 0 percent INFOBIONIC MOME Symptom Count 0 [...] complexes. 4. No symptomatic events were noted. Gluer And Wedger: Rayne Casillas, CCT / Rosalba Gomez, CCT [...] complexes. 4. No symptomatic events were noted. Gluer And Wedger: Rayne Casillas, CCT / Rosalba Gomez CCT Jerardo Buckley M.D., Ph.D. CV CARDIAC SERVICES PROCEDURES Final Result Performing Organization Address [facility] Co de Phone Number INFOBIONIC ANSHUL NA * ECG 12 Lead (07/11/2024 2:27 PM CDT) Ventricular Rate ECG/Min 54 BPM MUSE WV Interval 196 ms MUSE QRSD Interval 86 ms MUSE QT Interval 464 ms MUSE QTC Interval 440 ms MUSE P Busy 20 degrees MUSE R Busy 21 degrees MUSE T Wave Busy 33 degrees MUSE 07/11/2024 2:27 PM CDT 07/11/2024 4:24 PM CDT Impressions MUSE - 07/11/2024 2:29 PM CDT Sinus bradycardia Low anterior forces slight ST-elevation anterior leads, consider early repolarization or pericarditis When compared with ECG of 27-Apr-2024 08:55, WV interval has decreased Slight ST-elevation now present Revised Report Narrative Procedure Note Freeman Davis Jr., M.D. - 07/11/2024 IMPRESSION: Sinus bradycardia Low anterior forces slight ST-elevation anterior leads, consider early repolarization orpericarditis When compared with ECG of 27-Apr-2024 08:55, WV interval has decreased Slight ST-elevation now present Revised Report Jerardo Buckley M.D., Ph.D. ECG ORDERABLES Edit ed Result - Final Performing Organization Address [facility] Co de Phone Number MUSE NA * Sodium (04/27/2024 8:42 AM CDT) Sodium, S 141 135 - 145 mmol/L 04/27/2024 10:16 AM CDT DTL Blood (Blood, Venous) 04/27/2024 8:42 AM CDT 04/27/2024 9:24 AM CDT us Hugo Sanchez M.D. LAB BLOOD ADD-ON Final Result Performing Organization Address [facility] Co de Phone Number [facility] [address] [place] [address], [facility] [address] [place] [address] * Potassium (04/27/2024 8:42 AM CDT) Potassium, S 4.4 3.6 - 5.2 mmol/L 04/27/2024 10:16 AM CDT DTL Blood (Blood, Venous) 04/27/2024 8:42 AM CDT 04/27/2024 9:24 AM CDT Jerardo Buckley M.D., Ph.D. LAB BLOOD ADD-ON Fin al Result Performing Organization Address [facility] de Phone Number [facility] [address] [place] [address], [place] [address] * (ABNORMAL) Creatinine with Estimated GFR (04/27/2024 8:42 AM CDT) Creatinine 1.17(H) 0.59 - 1.04 mg/dL 04/27/2024 10:16 AM CDT DTL Estimated GFR (eGFR) 48(L) >=60 mL/min/BSA 04/27/2024 10:16 AM CDT DTL Comment: Estimated GFR calculated using the 2020 CKD_EPI creatinine equation. Blood (Blood, Venous) 04/27/2024 8:42 AM CDT 04/27/2024 9:24 AM CDT us Jerardo Buckley M.D., Ph.D. LAB BLOOD ADD-ON Fin al Result [facility] [address] [place] [address], [place] DTL [facility] [address] [place] [address] * BI Breast Screening Bilateral with Tomosynthesis [...] IMG BI PROCEDURES Final Re sult * Cologuadanish (07/04/2020 3:30 PM CDT) Result Negative Not [...] (Ritesh Whitman al, N Engl J Med 2014;370(14):0316-9391) The normal value (reference range) for this assay is negative. COLOGUARD RE-SCREENING RECOMMENDATION: Periodic routine colorectal cancer screening is an important part of preventive healthcare for asymptomatic persons at average risk for colorectal cancer. Following a negative Cologuard result, the [place] Cancer Society and U.S. Multi-Society Task Force screening guidelines recommend a Cologuard re-screening interval of 3 years. References: [place] Cancer Society (ACS). Colorectal cancer prevention and early detection. [place], [place]: [place] Cancer Society; [updated 2015Mar 08]. https://www.cancer.org/cancer/uwbbr-qohhvd-ltsrgi/detection- diagnosis-staging/acs-recommendations.html. Accessed July 15, 2018; Hao DK, Ludmila MAY, Ashley GuamanK, Colorectal Cancer Screening: Recommendations for Physicians and Patients from the U.S. Multi-Society Task Force on Colorectal Cancer Screening, Am J Gastroenterology 2017; 112:3718-2015. TEST TYPE: Composite algorithmic analysis of stool [...] interval of every 3 years by the Citizen [place] Cancer Society and U.S. Multi-Society Task Force. [...] can be accessed at the following location: www.[facility].com/results. Additional description of the Cologuard test process, warnings and precautions can be found at www.cologuardtest.com. Rx only. Stool (Stool) 07/04/2020 3:3 0 PM CDT 07/06/2020 6:50 PM CDT Telly Gaines M.D. LAB BODY FLUIDS AND STOOLS ORDERABLES Final Result [facility] [address] [place] [address] EXLI Marley Spoon [address] [facility], [address] [place] [address] from Last 3 Months or Most Recently Relevant to Health Maintenance Insurance [facility] Advance Directives For more information, please contact: [phone] Documents on File Type Date Recorded Patient Program Manager Slp Expl anation Advance Directives 05/19/2018 4:06 PM [...] Agents on File Name Relationship Healthcare Agent [facility] p Communication Larry Coleman Spouse Health Care Agent Magda Calix Daughter First Alternat e Health Care Agent Care Teams Egg Caser Relationship Specialty Start Date End Date Emilia Lincoln M.D. [address] [place] [phone] PCP - General Family Medicine 08/13/23
--- OUTSIDE RECORDS SUMMARY | 2024-09-14 09:49 | XMS_ITS | Encounter Summary ---
Author Organization [facility] Address [address] [place] [address] Care Team Providers Care Electrical Controls Engineer Name Role Phone Emilia Lincoln M.D. Primary Care Provider +1- [phone] Reason for Referral * Outpatient (Routine) - Closed Specialty Diagnoses / Procedures Referred By Contac t Referred To Contact Anticoagulation Diagnoses Thrombosis Deep Vein Personal History Jail (Current) Anticoagulant Treatment Monitoring For Therapeutic Drug Therapy Atrial Fibrillation Paroxysmal (HCC) Emilia Lincoln M.D. [address] [place] [phone] Phone: tel: fax: [facility] Referral ID Status Reason Start Date Expiration Date Visits Re quested Visits Authorized [id number] Closed 07/03/2024 01/02/2026 1 1 Reason for Visit * Outpatient (Routine) - Closed Specialty Diagnoses / Procedures Referred By Contac t Referred To Contact Anticoagulation Diagnoses Thrombosis Deep Vein Personal History [facility] (Current) Anticoagulant Treatment Monitoring For Therapeutic Drug Therapy Atrial Fibrillation Paroxysmal (HCC) Emilia Lincoln M.D. [address] [place] [phone] Phone: tel: fax: [facility] Referral ID Status Reason Start Date Expiration Date Visits Re quested Visits Authorized [id number] Closed 06/12/2024 12/12/2025 1 1 Encounter Details Date Type Department Care Team (Latest Contact Info) Description 07/03/2024 8:15 AM CDT Anticoagulation Visit Department of Anticoagulation in [place], [place] [address] [place] [address] Emilia Lincoln M.D. [address] [place] [phone] Thrombosis Deep Vein Personal History; [facility] (Current) Anticoagulant Treatment; Monitoring For Therapeutic Drug [...] any clubs o r organizations such as faith groups, unions, fraternal or athletic groups, or [...] Answer Date Recorded PHQ-2 Score 3 04/26/2024 [facility] - Occupational Stress Questionnaire Answer Date [...] Master's degree (e.g., MA, MS, Tacho, MEd, FILM COMPOSER, EARLE) 06/27/2019 Comments No Sex and Gender Information Value Date Recorded Sex Assigned at Female 11/24/2017 7:34 PM DIE GRINDER Legal Sex Female 4:28 AM DIE GRINDER Gender Identity Female 05/03/2021 11:34 AM CDT [...] please call Primary Care Anticoagulation Program at [phone] from 7:30 am to 4:30 pm. Wednesday-Wednesday [...] if you start any herbal or other olut-sth-fnihtfa product (check with your doctor, a nurse, [...] (Latest Contact Info) Description 09/25/2024 9:45 AM DIE GRINDER Anticoagulation Visit Department of Anticoagulation in [place], [place] [address] [place] [phone] Emilia Lincoln M.D. [address] [place] [phone] 11/20/2024 8:30 AM DIE GRINDER Clinical Communication Virtual Review in [place], [place] 200 [place] [address] 11/23/2024 9:40 AM DIE GRINDER Appointment Department of Laboratory Medicine and Pathology, [facility] in [place], [place] [address] [place] [phone] Jerardo Buckley M.D., Ph.D. [address] [place] [phone] 11/23/2024 10:00 AM DIE GRINDER Ancillary Procedure Department of Cardiovascular Medicine in [place], [place] [address] [place] [phone] Jerardo Buckley M.D., Ph.D. [address] [place] [phone] 11/23/2024 10:40 AM DIE GRINDER Appointment Department of Cardiovascular Diseases in [place], [place] [address] [place] [phone] Jerardo Buckley M.D., Ph.D. [address] [place] [phone] Discharge Disposition: Home or Self Care 11/23/2024 1:00 PM DIE GRINDER Office Visit Department of Cardiovascular Medicine in [place], [place] [address] [place] [phone] Melissa Henriquez P.A.-C., M.S. [address] [place] [phone] 11/23/2024 3:00 PM DIE GRINDER Appointment Department of Radiology, [facility], in [place], [place] [address] [place] [phone] Jerardo Buckley M.D., Ph.D. [address] [place] [phone] 11/24/2024 8:05 AM DIE GRINDER Hospital Encounter Division of Cardiovascular Diseases in [place], [place] [address] [place] [phone] Jerardo Buckley M.D., Ph.D. [address] [place] [phone] Atrial Fibrillation Unspecified (HCC) 11/24/2024 8:05 AM DIE GRINDER - 11/24/2024 11:47 AM DIE GRINDER Surgery Division of Cardiovascular Diseases in [place], [place] [address] [place] [phone] Jerardo Buckley M.D., Ph.D. [address] [place] [phone] PULSED FIELD ABLATION Scheduled Referrals Name Type [...] ADD-ON Final Resul t Performing Organization Address City/[facility] Co de Phone Number [...] Diagnoses Diagnosis Thrombosis Deep Vein Personal History Jail (Current) Anticoagulant Treatment Monitoring For Therapeutic Drug Therapy Atrial Fibrillation Paroxysmal (HCC) Atrial Fibrillation Unspecified (HCC)- Primary Atrial Fibrillation Unspecified (HCC) documented in this encounter Additional Health Concerns Assessment Noted Time PHQ-9 Depression Total Score: 8 04/26/20 24 10:43 AM CDT documented as of this encounter Care Teams Electrical Controls Engineer Relationship Specialty Start Date End Date Emilia Lincoln M.D. [address] [place] [phone] PCP - General Family Medicine 08/13/23 documented as of this encounter
--- OUTSIDE RECORDS SUMMARY | 2024-09-14 09:49 | XMS_ITS | Encounter Summary ---
Author Organization [facility] Address [address] [place] [address] Care Team Providers Care Circulation Manager Name Role Phone Emilia Lincoln M.D. Primary Care Provider +1- [phone] Reason for Referral * MRI/CAT/PET Scan (Routine) - Pending Review Specialty Diagnoses / Procedures Referred By Contac t Referred To Contact Radiology Diagnoses Atrial Fibrillation Unspecified (HCC) Procedures CT Cardiac Pulmonary Veins with IV Jerardo Buckley M.D., Ph.D. [address] [place] [phone] Phone: tel: fax: [facility] Referral ID Status Reason Start Date Expiration Date V isits Requested Visits Authorized [id number] Pending Review 08/28/2024 08/28/2025 1 1 * Outpatient (Routine) - Authorized Specialty Diagnoses / Procedures Referred By Contac t Referred To Contact Cardiovascular Disease Jerardo Buckley M.D., Ph.D. [address] [place] [phone] Phone: tel: fax: [facility] Referral ID Status Reason Start Date Expiration Date V isits Requested Visits Authorized [id number] Authorized 08/28/2024 02/27/2026 1 1 * Cardiovascular-Diagnostic (Routine) - Authorized Specialty Diagnoses / Procedures Referred By Contac t Referred To Contact Diagnoses Atrial Fibrillation Unspecified (HCC) Procedures Echo Transthoracic (TTE) Jerardo Buckley M.D., Ph.D. [address] [place] [phone] Phone: tel: fax: [facility] Referral ID Status Reason Start Date Expiration Date V isits Requested Visits Authorized [id number] Authorized 08/28/2024 08/28/2025 1 1 * Outpatient (Routine) - Authorized Specialty Diagnoses / Procedures Referred By Contac t Referred To Contact Diagnoses Atrial Fibrillation Unspecified (HCC) Procedures ECG 12 Lead Jerardo Buckley M.D., Ph.D. [address] [place] [phone] Phone: tel: fax: [facility] Referral ID Status Reason Start Date Expiration Date V isits Requested Visits Authorized [id number] Authorized 08/28/2024 08/28/2025 1 1 Reason for Visit * Reason Onset Date Comments Procedure Request 07/31/2024 Ablation Encounter Details Date Type Department Care Team (Latest Contact Info) Description 07/31/2024 Clinical Communication Department of Cardiovascular Medicine in [place], [place] [address] [place] [address] Prescheduling, Provider Procedure Request (Ablation) Social History [...] How often do you attend chur or mandaeism services? More than 4 times [...] 3 04/26/2024 [facility] Occupat ional [facility] - Occupational Stress [...] your living situation today? I have a [facility] place to live 05/26/2023 Education Answer Date Recorded What is the highest level of school you have completed or the highest degree you have received? Master's degree (e.g., MA, MS, Tacho, MEd, DIRECTOR NEW PRODUCT, EARLE) 06/27/2019 Comments No Sex and Gender Information Value Date Recorded Sex Assigned at Female 11/24/2017 7:34 PM AIR CONDITIONING SERVICE TECHNICIAN Legal Sex Female 4:28 AM AIR CONDITIONING SERVICE TECHNICIAN Gender Identity Female 05/03/2021 11:34 AM [...] night before the procedure, please call the [facility] Service Line ([phone]) or the [facility] Backup Line ([phone]) between 7pm and midnight to find out what time to arrive. This automated phone line will have you type in your [facility] Number ([phone]) and birthdate (1945) to determine your arrival time. On the day of your procedure: Check into [facility] 4th Floor ([facility]) at the [facility] 4D desk. You do not need to [...] plan for your diabetes medications please contact [phone]. All Other Medications: Continue taking all other [...] to either live within 100 miles of [place], [place] or spend the night in [place], [place] post procedure. If you live within 100 miles and live greater than 30 minutes outside of [place], [place]); it is highly recommended that you spend the night in [place], [place]. If you experience any complications or have questions post procedure overnight, please call the [facility] Dewatering Filtering Supervisor at: [phone] and ask for [facility]. They will connect you to the on-call provider to assist you further. You will receive sedation for your procedure, so an adult driver recruiter and supervision is required for 24hours after [...] your procedure, please feel free to our [facility]' Nurse Phone Line at [phone] (available M-F, 8 am to 5 pm AIR CONDITIONING SERVICE TECHNICIAN). If you have any concerns or questions regarding your schedule, please contact the scheduling team at [phone]. If you have any concerns or questions about your insurance or procedure coverage please contact [facility] office at [phone]. * Telephone Encounter - Thuy Arango R.N. - 08/14/2024 9:33 AM CDT Please schedule a 30 day Mome or MCT cardiac cath lab manager (but not an event recorder) to be completed before the ablation. Please continue warfarin and dofetilide around the time of the ablation. Please hold metoprolol on the day of the ablation. Per Dr. Buckley documented in this encounter Plan of Treatment Upcoming Encounters Date Type Department Care Team (Latest Contact Info) Description 09/25/2024 9:45 AM AIR CONDITIONING SERVICE TECHNICIAN Anticoagulation Visit Department of Anticoagulation in [place], [place] [address] [place] [phone] Emilia Lincoln M.D. [address] [place] [phone] 11/20/2024 8:30 AM AIR CONDITIONING SERVICE TECHNICIAN Clinical Communication Virtual Review in [place], [place] 200 [place] [phone] 11/23/2024 9:40 AM AIR CONDITIONING SERVICE TECHNICIAN Appointment Department of Laboratory Medicine and Pathology, [facility], in [place], [place] [address] [place] [phone] Jerardo Buckley M.D., Ph.D. [address] [place] [phone] 11/23/2024 10:00 AM AIR CONDITIONING SERVICE TECHNICIAN Ancillary Procedure Department of Cardiovascular Medicine in [place], [place] [address] [place] [phone] Jerardo Buckley M.D., Ph.D. [address] [place] [phone] 11/23/2024 10:40 AM AIR CONDITIONING SERVICE TECHNICIAN Appointment Department of Cardiovascular Diseases in [place], [place] [address] [place] [phone] Jerardo Buckley M.D., Ph.D. [address] [place] [phone] Discharge Disposition: Home or Self Care 11/23/2024 1:00 PM AIR CONDITIONING SERVICE TECHNICIAN Office Visit Department of Cardiovascular Medicine in [place], [place] [address] [place] [phone] Melissa Henriquez P.A.-C., M.S. [address] [place] [phone] 11/23/2024 3:00 PM AIR CONDITIONING SERVICE TECHNICIAN Appointment Department of Radiology, [facility], in [place], [place] [address] [place] [phone] Jerardo Buckley M.D., Ph.D. [address] [place] [phone] 11/24/2024 8:05 AM AIR CONDITIONING SERVICE TECHNICIAN Hospital Encounter Division of Cardiovascular Diseases in [place], [place] [address] [place] [phone] Jerardo Buckley M.D., Ph.D. [address] [place] [phone] Atrial Fibrillation Unspecified (HCC) 11/24/2024 8:05 AM AIR CONDITIONING SERVICE TECHNICIAN - 11/24/2024 11:47 AM AIR CONDITIONING SERVICE TECHNICIAN Surgery Division of Cardiovascular Diseases in [place], [place] [address] [place] [address] Jerardo Buckley M.D., Ph.D. [address] [place] [address] PULSED FIELD ABLATION Scheduled Orders Name Type Priority Associated Diagnoses Order Schedule CBC without Differential Lab Routine Atrial Fibrillation Unspecified (HCC) Expected: 11/23/2024, Expires: 11/28/2025 Basic Metabolic Panel Lab Routine Atrial Fibrillation Unspecified (HCC) Expected: 11/23/2024, Expires: 11/28/2025 Thyroid Function [place] Lab Routine Atrial Fibrillation Unspecified (HCC) Expected: [...] documented as of this encounter Care Teams Circulation Manager Relationship Specialty Start Date End Date Emilia Lincoln M.D. [address] [place] [phone] PCP - General Family Medicine 08/13/23 documented as of this encounter
--- OUTSIDE RECORDS SUMMARY | 2024-09-14 09:49 | XMS_ITS | Encounter Summary ---
Author Organization [facility] Address [address] [place] [address] Care Team Providers Care Medical Anthropologist Name Role Phone Emilia Lincoln M.D. Primary Care Provider +1- [phone] Reason for Visit * Reason Onset Date Comments Pre-visit Intake 07/10/2024 Encounter Details Date Type Department Care Team (Latest Contact Info) Description 07/10/2024 11:45 AM CDT Clinical Communication Virtual Review in [place], [place] [address] [place] [address] Pre-visit Intake Social History Tobacco Use Types [...] any clubs o r organizations such as sikh groups, unions, fraternal or athletic groups, or [...] Answer Date Recorded PHQ-2 Score 3 04/26/2024 [facility]ational Stress Questionnaire Answer Date [...] your living situation today? I have a [facility] place to live 05/26/2023 Education Answer Date Recorded What is the highest level of school you have completed or the highest degree you have received? Master's degree (e.g., MA, MS, Tacho, MEd, MANGLE ROLL OPERATOR, EARLE) 06/27/2019 Comments No Sex and Gender Information Value Date Recorded Sex Assigned at Female 11/24/2017 7:34 PM CHEF'S ASSISTANT Legal Sex Female 4:28 AM CHEF'S ASSISTANT Gender Identity Female 05/03/2021 11:34 AM CDT Sexual Orientation Straight 05/03/2021 11 :34 AM CDT documented as of this encounter Plan of Treatment Upcoming Encounters Date Type Department Care Team (Latest Contact Info) Description 09/25/2024 9:45 AM CHEF'S ASSISTANT Anticoagulation Visit Department of Anticoagulation in [place], [place] [address] [place] [address] Emilia Lincoln M.D. [address] [place] [phone] 11/20/2024 8:30 AM CHEF'S ASSISTANT Clinical Communication Virtual Review in [place], [place] [address] [place] [address] 11/23/2024 9:40 AM CHEF'S ASSISTANT Appointment Department of Laboratory Medicine and Pathology, [facility], in [address] [phone] Jerardo Buckley M.D., Ph.D. [address] [place] [phone] 11/23/2024 10:00 AM CHEF'S ASSISTANT Ancillary Procedure Department of Cardiovascular Medicine in [address] [phone] Jerardo Buckley M.D., Ph.D. [address] [place] [phone] 11/23/2024 10:40 AM CHEF'S ASSISTANT Appointment Department of Cardiovascular Diseases in [address] [phone] Jerardo Buckley M.D., Ph.D. [address] [place] [phone] Discharge Disposition: Home or Self Care 11/23/2024 1:00 PM CHEF'S ASSISTANT Office Visit Department of Cardiovascular Medicine in [address] [phone] Melissa Henriquez P.A.-C., M.S. [address] [place] [phone] 11/23/2024 3:00 PM CHEF'S ASSISTANT Appointment Department of Radiology, [facility], in [address] [phone] Jerardo Buckley M.D., Ph.D. [address] [place] [phone] 11/24/2024 8:05 AM CHEF'S ASSISTANT Hospital Encounter Division of Cardiovascular Diseases in [place], [place] [address] [place] [phone] Jerardo Buckley M.D., Ph.D. [address] [place] [phone] Atrial Fibrillation Unspecified (HCC) 11/24/2024 8:05 AM CHEF'S ASSISTANT - 11/24/2024 11:47 AM CHEF'S ASSISTANT Surgery Division of Cardiovascular Diseases in [place], [place] [address] [place] [phone] Jerardo Buckley M.D., Ph.D. [address] [place] [phone] PULSED FIELD ABLATION documented as of this encounter Visit Diagnoses Not on filedocumented in this encounter Additional Health Concerns Assessment Noted Time PHQ-9 Depression Total Score: 8 04/26/20 24 10:43 AM CDT documented as of this encounter Care Teams Medical Anthropologist Relationship Specialty Start Date End Date Emilia Lincoln M.D. NPMarisabel: [phone] [address] [place] [phone] PCP - General Family Medicine 08/13/23 documented as of this encounter
--- OUTSIDE RECORDS SUMMARY | 2024-09-14 09:49 | XMS_ITS | Encounter Summary ---
Author Organization [facility] Address [address] [place] [address] Care Team Providers Care Verifying Specialist Name Role Phone Emilia Lincoln M.D. Primary Care Provider +1- [phone] Reason for Visit * Outpatient (Routine) - Authorized Specialty Diagnoses / Procedures Referred By Contmichael t Referred To Contact Anticoagulation Emilia Lincoln M.D. [address] [place] [phone] Phone: tel: fax: [facility] Referral ID Status Reason Start Date Expiration Date V isits Requested Visits Authorized [id number] Authorized 05/15/2024 11/14/2025 300 300 Encounter Details Date Type Department Care Team (Latest Contact Info) Description 07/24/2024 10:45 AM CDT Anticoagulation Visit Department of Anticoagulation in [place], [place] [address] [place] [address] Emilia Lincoln M.D. 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 More than 4 times per year 02/25/2022 Do you belong to any clubs o r organizations such as synagogue groups, unions, fraternal or athletic groups, or [...] Answer Date Recorded PHQ-2 Score 3 04/26/2024 [facility] [place] of Occupat ional Health - Occupational Stress [...] living situation today? I have a [facility] place to live 05/26/2023 Education Answer Date Recorded What is the highest level of school you have completed or the highest degree you have received? Master's degree (e.g., MA, MS, Tacho, MEd, RADIOLOGICAL METALLURGIST, EARLE) 06/27/2019 Comments No Sex and Gender Information Value Date Recorded Sex Assigned at Female 11/24/2017 7:34 PM APPLICATIONS SUPPORT ANALYST Legal Sex Female 4:28 AM APPLICATIONS SUPPORT ANALYST Gender Identity Female 05/03/2021 11:34 AM [...] please call Primary Care Anticoagulation Program at [phone] from 7:30 am to 4:30 pm. Wednesday-Wednesday [...] if you start any herbal or other qbnj-pyo-umtxzoo product (check with your doctor, a nurse, [...] (Latest Contact Info) Description 09/25/2024 9:45 AM APPLICATIONS SUPPORT ANALYST Anticoagulation Visit Department of Anticoagulation in [address] [phone] Emilia Lincoln M.D. [address] [phone] 11/20/2024 8:30 AM APPLICATIONS SUPPORT ANALYST Clinical Communication Virtual Review in [place], [place] 200 [place] [address] 11/23/2024 9:40 AM APPLICATIONS SUPPORT ANALYST Appointment Department of Laboratory Medicine and Pathology, [facility], in [address] [phone] Jreardo Buckley M.D., Ph.D. [address] [place] [phone] 11/23/2024 10:00 AM APPLICATIONS SUPPORT ANALYST Ancillary Procedure Department of Cardiovascular Medicine in [address] [phone] Jerardo Buckley M.D., Ph.D. [address] [place] [phone] 11/23/2024 10:40 AM APPLICATIONS SUPPORT ANALYST Appointment Department of Cardiovascular Diseases in [address] [phone] Jerardo Buckley M.D., Ph.D. [address] [place] [phone] Discharge Disposition: Home or Self Care 11/23/2024 1:00 PM APPLICATIONS SUPPORT ANALYST Office Visit Department of Cardiovascular Medicine in [address] [phone] Melissa Henriquez P.A.-C., M.S. [address] [place] [phone] 11/23/2024 3:00 PM APPLICATIONS SUPPORT ANALYST Appointment Department of Radiology, [facility], in [place], [place] [address] [place] [phone] Jerardo Buckley M.D., Ph.D. [address] [place] [phone] 11/24/2024 8:05 AM APPLICATIONS SUPPORT ANALYST Hospital Encounter Division of Cardiovascular Diseases in [place], [place] [address] [place] [phone] Jerardo Buckley M.D., Ph.D. [address] [place] [phone] Atrial Fibrillation Unspecified (HCC) 11/24/2024 8:05 AM APPLICATIONS SUPPORT ANALYST - 11/24/2024 11:47 AM APPLICATIONS SUPPORT ANALYST Surgery Division of Cardiovascular Diseases in [address] [phone] Jerardo Buckley M.D., Ph.D. [address] [place] [phone] PULSED FIELD ABLATION documented as of this [...] ADD-ON Final Resul t Performing Organization Address City/[facility]/ZIP Co de Phone Number PATIENT POINT OF CARE DEVICE * Prothrombin Time (PT) (07/10/2024) EXT INR 2.30 PATIENT PO INT OF CARE DEVICE Blood (Blood, Venous) 07/10/2024 [facility] Provider LAB BLOOD ADD-ON Final Resul t Performing Organization Address [facility]/ZIP Co de Phone Number PATIENT POINT OF CARE DEVICE documented in this encounter Visit Diagnoses Diagnosis Thrombosis Deep Vein Personal History- Primary 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 [address] [place] [phone] PCP - General Family Medicine 08/13/23 documented as of this encounter
--- OUTSIDE RECORDS SUMMARY | 2024-09-14 09:50 | XMS_ITS | Encounter Summary ---
Author Organization [facility] Address [address] [place] [address] Care Team Providers Care Safe Expert Name Role Phone Emilia Lincoln M.D. Primary Care Provider [phone] Reason for Referral * Outpatient (Routine) - Authorized Specialty Diagnoses / Procedures Referred By Evie t Referred To Contact Family Medicine Diagnoses Thrombosis Deep Vein Personal History Senior Living (Current) Anticoagulant Treatment Monitoring For Therapeutic Drug Therapy Atrial Fibrillation Paroxysmal (HCC) Emilia Lincoln M.D. [address] [place] [phone] Phone: tel: fax: [facility] Referral ID Status Reason Start Date Expiration Date V isits Requested Visits Authorized [id number] Authorized 06/12/2024 12/12/2025 1 1 Scheduling Instructions This obnu-xk-tsgs visit with your PCP is required by [...] 01/24/2024 Clinical Communication Department of Anticoagulation in [place], [place] [address] [place] [address] Diane Marie, RHarmonyN. [address] [place] [address] Anticoagulation ([facility] Enrollment) Social History Tobacco Use Types [...] How often do you attend chur or zoroastrian services? More than 4 times per year 02/25/2022 Do you belong to any clubs o r organizations such as alevism groups, unions, fraternal or athletic groups, or [...] Health [facility] of Occupat ional [facility] - Occupational Stress Questionnaire Answer [...] Master's degree (e.g., MA, MS, Tacho, MEd, PRINCIPAL TECHNICAL WRITER, EARLE) 06/27/2019 Comments No Sex and Gender Information Value Date Recorded Sex Assigned at Female 11/24/2017 7:34 PM HOOK TENDER Legal Sex Female 4:28 AM HOOK TENDER Gender Identity Female 05/03/2021 11:34 AM CDT [...] obtained from the patient/patient's medical power of farm machinery erector. The patient/patient's medical power of farm machinery erector was informed that a charge, based on the level of service, will be billed to their insurance each month. Only one health care provider can provide these services at a time. Patients have the right to stop these services at any time by letting their care team know. The patient/patient's medical power of farm machinery erector can contact their insurance company if they have any questions on coverage or [facility] Patient Account Services if they have any questions about their bill. documented in this encounter Plan of Treatment Upcoming Encounters Date Type Department Care Team (Latest Contact Info) Description 09/25/2024 9:45 AM HOOK TENDER Anticoagulation Visit Department of Anticoagulation in [place], [place] [address] [place] [address] Emilia Lincoln M.D. [address] [place] [phone] 11/20/2024 8:30 AM HOOK TENDER Clinical Communication Virtual Review in [place], [place] [address] [place] [address] 11/23/2024 9:40 AM HOOK TENDER Appointment Department of Laboratory Medicine and Pathology, [facility] in [place], [place] [address] [place] [phone] Jerardo Buckley M.D., Ph.D. [address] [place] [phone] 11/23/2024 10:00 AM HOOK TENDER Ancillary Procedure Department of Cardiovascular Medicine in [place], [place] [address] [place] [phone] Jerardo Buckley M.D., Ph.D. [address] [place] [phone] 11/23/2024 10:40 AM HOOK TENDER Appointment Department of Cardiovascular Diseases in [address] [phone] Jerardo Buckley M.D., Ph.D. [address] [place] [phone] Discharge Disposition: Home or Self Care 11/23/2024 1:00 PM HOOK TENDER Office Visit Department of Cardiovascular Medicine in [address] [phone] Melissa Henriquez P.A.-C., M.S. [address] [place] [phone] 11/23/2024 3:00 PM HOOK TENDER Appointment Department of Radiology, [facility], in [place], [place] [address] [place] [phone] Jerardo Buckley M.D., Ph.D. [address] [place] [phone] 11/24/2024 8:05 AM HOOK TENDER Hospital Encounter Division of Cardiovascular Diseases in [place], [place] [address] [place] [phone] Jerardo Buckley M.D., Ph.D. [address] [place] [address] Atrial Fibrillation Unspecified (HCC) 11/24/2024 8:05 AM HOOK TENDER - 11/24/2024 11:47 AM HOOK TENDER Surgery Division of Cardiovascular Diseases in [place], [place] [address] [place] [phone] Jerardo Buckley M.D., Ph.D. 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) Anticoagulant Treatment Monitoring For Therapeutic Drug Therapy Atrial Fibrillation Paroxysmal (HCC) 1 Occurrences starting 06/12/2024 until 09/12/2025 documented as of this encounter Visit Diagnoses Diagnosis Thrombosis Deep Vein Personal History- Primary Senior Living (Current) Anticoagulant Treatment Monitoring For Therapeutic Drug Therapy Atrial Fibrillation Paroxysmal (HCC) Atrial Fibrillation Unspecified (HCC)- Primary Atrial Fibrillation Unspecified (HCC) documented in this encounter Additional Health Concerns Assessment Noted Time PHQ-9 Depression Total Score: 3 10/27/20 23 8:30 PM HOOK TENDER documented as of this encounter Care Teams Safe Expert Relationship Specialty Start Date End Date Emilia Lincoln M.D. [address] [phone] PCP - General Family Medicine 08/13/23 documented as of this encounter
== END 2024-09-14 09:42 | disposition home or self-care (01) ==
PROVIDERS: PCP Nurse Practitioner Family; Visit Provider Nurse Practitioner Family
DX: I10 Essential (primary) hypertension (principal); D64.9 Anemia, unspecified
CPT/HCPCS: 80053; 85025

== ENCOUNTER 2024-09-27 08:48 | Day surgery (SDC) | payer MEDICARE, SELFPAY ==
--- NOTE | 2024-09-27 09:28 | SUR.PREOP ---
inr point of care, 1.1
[2024-09-27 09:29] VITALS: BMI 39.9
[2024-09-27 09:36] VITALS: BP 124/90; PULSE 56; RESP 20; TEMP 36.8
[2024-09-27 09:36] LABS: INR, Point of Care* 1.1 (0.8-1.4)
[2024-09-27] MEDS: SODIUM CHLORIDE 0.9 % (FLUSH) 10 ML SYRINGE IVF (09:56)
--- NOTE | 2024-09-27 10:51 | W.ANESCHARGE ---
Anesthesia Charges Start Date/Time Anesthesia Start Date: 09/27/24 Anesthesia Start Time: 11:23 Stop Date/Time Anesthesia Stop Date: 09/27/24 Anesthesia Stop Time: 13:38 Summary Extremes of Age - Over 70 or under 1: MDA
[2024-09-27] MEDS: LACTATED RINGERS 1000 ML 1,000 ML 100 ML IV (11:05)
--- NOTE | 2024-09-27 11:16 | P.GSOP_ITS ---
Operative Note Date of procedure: 09/27/24 Pre-op diagnosis: 1. Right breast invasive ductal carcinoma. 2. Right breast sclerosing intraductal papilloma. Post-op diagnosis: Same Type of Procedure: 1. Wire localized right lumpectomy Indications: 79-year-old female was seen in clinic with a newly diagnosed right breast invasive ductal carcinoma and intraductal papilloma. Patient underwent a routine bilateral breast mammogram that showed right breast asymmetry. She was found to have solid hypoechoic nodule measuring 8 x 6 mm and a second hypoechoic angular nodule measuring 5 x 6 mm. This was at 9:00 2 cm from the nipple. These 2 nodules were 3 mm apart. She underwent core needle biopsy of both nodules. The smaller nodule came back as a sclerosing intraductal papilloma by pathology. The larger nodule came back as invasive ductal carcinoma, grade 2 of 3 with no angiolymphatic invasion, ER / FL positive and HER2 negative by fish. Ki I 67 11%. Clinical exam patient had right breast post biopsy ecchymosis at 9:00 with no palpable masses. Given patient's clinical history, her age and her favorable receptor status, I recommended to proceed with a right lumpectomy. The procedure was discussed in detail. The risks associated procedure including infection, bleeding, the need for additional procedures, and seroma were all discussed with the patient, and she agreed to proceed. Procedure Description: After discussing the risks and benefits of the procedure, the patient signed informed consent.? The operative site was marked and the patient was brought to the operating room and placed on the operating table in supine position.? Care was taken to pad the patient's pressure points.?? The patient was then sedated by anesthesia.?? The operative site was then prepped and draped in the usual sterile fashion.? A time-out was then performed. Pre-operative mammographic films taken after wire localization were reviewed. The mixture of Lidocaine and Marcaine was used as local anesthetic and was injected at the site of the incision. The lumpectomy was performed by making a?curvilinear periareolar incision in the?right breast spanning from?6 to 9 o'clock.? Subcutaneous skin flaps were developed until the wire was encountered.? Both wires were pulled into the surgical field. The breast tissue around the wires was then excised in a cylinder like fashion following the course of the wire using cautery.? This was done with frequent palpation of the wire.? The specimen was then excised making sure that the wires were still in the specimen. Margins of the specimen were inked and the specimen was then sent to mammography first to confirm presence of the wire and the clip and to pathology afterwards for gross margins. Mammography of the specimen confirmed 2 wires and 2 clips present in the specimen. Pathologist reviewed the specimen and the biopsy clip from intraductal papilloma was identified in the surgical specimen however, the HydroMARK clip which is smaller, was not identified in the specimen. The tumor was thought to be just medial to the intraductal papilloma. To ensure negative margins, an additional superior medial margin excision was recommended. This was excised with cautery. This new superior medial margin was inked for orientation and sent to pathology for permanent section. Surgical field was examined for bleeding and any bleeding was controlled with electrocautery and 3-0 Vicryl stick tie. Breast tissue was mobilized with cauter y for tension free closure and re-approximated with interrupted 2-0 Vicryl stitches. Interrupted subdermal stitches were placed with 3-0 Vicryl as well and skin was closed with 4-0 Monocryl subcuticular stitch. Steristrips and sterile dressings were applied. The patient's chest was wrapped in an Venkat wrap At the end of the operation, all sponge, instrument, and needle counts were correct. Patient tolerated the procedure well and was transferred to same-day surgery in stable condition. Findings: Both wires and both clips were present in the specimen on specimen mammography, the intraductal papilloma clip was identified by pathology but HydroMARK clip was not during gross dissection. An additional superior medial margin was excised to ensure negative margins. Anesthesia: MAC and local Surgeon: Matthew Yoo MD Estimated blood loss (mL): 5 Additional Specimen Information: 1. Right lumpectomy. 2. Right breast new superior medial margin Condition: stable Disposition: same day
--- NOTE | 2024-09-27 11:16 | W.PM.H&PU ---
History & Physical Update History & Physical Update H&P Reviewed and patient assessed: No changes noted
[2024-09-27] MEDS: CEFAZOLIN 2 GM INJ IVP (11:29)
--- NOTE | 2024-09-27 12:03 | CRLHL7_ITS ---
For Patients: As a result of the Cures Act, medical imaging exams and procedure reports are released immediately into your electronic medical record. You may view this report before your referring provider. If you have questions, please contact your health care provider. RIGHT BREAST SPECIMEN RADIOGRAPH CLINICAL HISTORY: Malignant neoplasm of RIGHT breast COMPARISON: 09/06/2024. FINDINGS: Two views of the RIGHT breast specimen submitted. Both biopsy nodules are present within the specimen along with the biopsy clips and localization wires. IMPRESSION: Specimen contains the biopsied lesions, as well as the biopsy clips and localization wires. ACR not applicable Dictated by Jerardo Zarate MD @ 09/27/2024 12:20:20 PM jj/Dictated by: Jerardo Zarate MD @ 09/27/2024 12:20:00 PM (Electronically Signed)
[2024-09-27] MEDS: LIDOCAINE 1%-EPI 1:100,000 20 ML INFILTRATI (12:06)
[2024-09-27] MEDS: BUPIVACAINE 0.25% 30 ML INJECTION (12:06)
[2024-09-27 13:15] VITALS: BP 127/87; PULSE 54; RESP 16; TEMP 36.4; O2SAT 96
--- NOTE | 2024-09-27 13:16 | W.ANESCHARGE ---
Anesthesia Charges Start Date/Time Anesthesia Start Date: 09/27/24 Anesthesia Start Time: 11:23 Stop Date/Time Anesthesia Stop Date: 09/27/24 Anesthesia Stop Time: 13:38 Summary Extremes of Age - Over 70 or under 1: FAMILY MEMBER CARETAKER
[2024-09-27 13:30] VITALS: BP 124/80; PULSE 51; RESP 16; O2SAT 97
[2024-09-27 13:48] VITALS: BP 144/75; PULSE 50; RESP 16; O2SAT 97
[2024-09-27 14:00] VITALS: BP 134/73; PULSE 54; RESP 16; O2SAT 97
== END 2024-09-27 14:30 | disposition home or self-care (01) ==
PROVIDERS: Anesthesiology; PCP Nurse Practitioner Family; Visit Provider Surgery
PROC: (CPT 19301; principal; 2024-09-27 11:00)
PROC: (CPT 19301; 2024-09-27 11:00)
DX: C50.811 Malignant neoplasm of overlapping sites of right female breast (principal); D24.1 Benign neoplasm of right breast; Z17.0 Estrogen receptor positive status [ER+]; Z17.21 Progesterone receptor positive status
CPT/HCPCS: 19301; 00400; 85610; 88305; 88307; 99100; J0665; J0690; J2704; J3010; J7120

== ENCOUNTER 2024-09-27 10:14 | Outpatient (CLI) | payer MEDICARE, SELFPAY ==
--- NOTE | 2024-09-27 10:00 | CRLHL7_ITS ---
For Patients: As a result of the Cures Act, medical imaging exams and procedure reports are released immediately into your electronic medical record. You may view this report before your referring provider. If you have questions, please contact your health care provider. BREAST WIRE LOCALIZATION USING ULTRASOUND GUIDANCE x 2 CLINICAL HISTORY: Malignant neoplasm of RIGHT breast. LATERALITY: RIGHT breast. LESION: Hypoechoic nodule 9 o`clock 2 cm from the nipple measuring 8 x 5 x 6 millimeters and hypoechoic solid nodule 9 o`clock 2 cm from the nipple measuring 5 x 5 x 6 millimeters. LOCALIZATION WIRE: Kopans hookwire. TECHNIQUE: For each nodule, the localization wire was placed using real-time ultrasound guidance with image documentation. Cranial-caudal and medial-lateral digital mammograms were obtained after localization wire placement. CONSENT and TIME OUT: The procedure, risks, and alternatives were explained to the patient and a consent was signed. [place] Protocol was followed including pre-procedure verification that relevant information/documentation was available, reviewed and properly matched to the patient; consent accurate and complete; and equipment and supplies available. Time Out was conducted just prior to starting procedure to verify the four required elements: patient identity, correct side/site marked (if applicable), procedure, relevant images/results properly labeled and displayed (if applicable). PROCEDURE: For each nodule, the skin was prepped with ChloraPrep and 8 cc of 1% lidocaine was injected for local anesthesia. The localization wires were placed within or near the targeted breast lesion using ultrasound guidance. The patient tolerated the procedure well. PROXIMITY OF WIRE TO LESION: Each wire is present within each nodule adjacent to the clips. IMPRESSION: Successful breast wire localization x2. ACR not applicable Dictated by Jerardo Zarate MD @ 09/27/2024 12:19:13 PM cherylj/Dictated by: Jerardo Zarate MD @ 09/27/2024 12:19:00 PM (Electronically Signed)
--- OUTSIDE RECORDS SUMMARY | 2024-09-27 10:17 | XMS_ITS | Clinical Summary ---
Author Organization [facility] Address [place], [place] [address] Care Team Providers Care Mold Swabber Name Role Phone Telly Gaines Primary Care Provider [phone] Allergies Active Allergy Reactions Criticality Noted Date Comments Iodinated Contrast Media Anaphylaxis High 01/28/2010 Latex Hives 01/28/2010 Metoclopramide Dyspnea 01/16/2014 Tramadol Syncope 07/25/2018 passed out Encounters Date Type Department Care Team Description 09/06/2024 Lab Requisition [facility] [phone] Unknown, Doctor from Last 3 Months Social [...] CORE BIOPSY Routine 09/06/2024 10:35 AM CDT CG HER2 BREAST Routine 09/06/2024 10:35 AM CDT CYTOGENETICS MALIGNANT TISSUE Routine 09/06/2024 10:35 AM CDT from Last 3 Months Results * LAB TRACKING EVENT (09/06/2024 10:35 AM CDT) Other (Other) Client Collect / Unknown 09/06/2024 10:35 AM CDT 09/06/2024 10:09 PM CDT Doctor Unknown LAB BILL ONLY [facility]-C[facility]AL LABORATORY [address] [place] [address], * PATH BREAST CORE BIOPSY (09/06/2024 10:35 AM CDT) Case Report Pathology Report ?Case: [id number] ? Authorizing Provider: ??Unknown, Doctor ?Collected: ? 09/06/2024 1035 ? Ordering Location: ? [facility] ?Received: ?09/07/2024 1016 ? Pathologist: ? Sade Morales MD ? Specimens: ?? A) - Right Breast Core Ultrasound Biopsy ? B) - Right Breast Core Ultrasound Biopsy ? 09/14/2024 5:02 PM CDT [facility]AT[facility] Amendment 09/11/2024 - Amendment issued to incorporate ancillary studies. 09/14/2024 - Amendment issued to incorporate ancillary HER2 FISH studies. 09/14/2024 5:02 PM CDT [facility] LABORATORY-C ENTRAL LABORATORY Final Diagnosis A) RIGHT BREAST, 9:00, 2 CM FROM NIPPLE, #1, ULTRASOUND-GUIDED CORE BIOPSY: 1. Fragments of sclerosing intraductal papilloma (see comment) 2. Negative for atypia and malignancy B) RIGHT BREAST, 9:00, 2 CM FROM NIPPLE, #2, ULTRASOUND-GUIDED CORE BIOPSY: 1. Invasive ductal carcinoma ?? a. Hastings grade: II of III; Taylor score: 6 of 9 ?? b. Angio-lymphatic invasion: Absent ?? c. Associated ADH: Present 2. Breast Ancillary Testing: ?a. Hormone Receptors: ?Estrogen receptor: Positive (100%, strong staining) ?Progesterone receptor: Positive (99%, strong staining) ?b. HER2 by IHC: Equivocal (2+ by manual morphometry) ? HER2 by FISH: Negative ?HER2/CEP17 ratio: 1.12 ?HER2 signals/cell: 1.96 ?CEP17 signals/cell: 1.74 ?c. Ki-67: 11% 09/14/2024 5:02 PM T [facility] ENTRAL LABORAT[facility] Amendment electronically signed by Aga Servin MD on 09/14/2024 at 5:02 PM Amendment electronically signed by Jerardo Thurston MD on 09/11/2024 at 11:23 AM Comment A) Please correlate with imaging to ensure that the lesion was adequately sampled. A,B) These are image-guided breast biopsies. The pathologic findings should be correlated with radiologic and clinical findings prior to treatment decisions. Case seen in consultation with Dr. Jurado 09/14/2024 5:02 PM T [facility] Clinical Information A) INDICATION: Right Breast Mass LESION DESCRIPTION: Oval, circumscribed, solid, hypoechoic Mass LOCATION: 9:00, 2 CM FROM THE NIPPLE SIZE: 8 x 5 x 6 mm CLIP SHAPE: Not specified B) INDICATION: Right Breast Mass LESION DESCRIPTION: Oval, circumscribed, hypoechoic Mass LOCATION: 9:00, 2 CM FROM THE NIPPLE SIZE: 5 x 5 x 6 mm CLIP SHAPE: Not specified 09/14/2024 5:02 PM T [facility] Gross Description A) Label: ??Patient's [...] not longer than 72 hours. EVM 09/07/2024 09/14/2024 5:02 PM T [facility] Microscopic Description The final diagnosis is based [...] green ink is confirmed on tissue sections. 09/14/2024 5:02 PM T [facility] Cytogenetics Summary Cytogenetic testing has been ordered and will be reported separately. 09/14/2024 5:02 PM T [facility] SYNOPTIC REPORTING Breast Biomarker Reporting Template BREAST BIOMARKER REPORTING TEMPLATE - B Protocol posted: 10/27/2023 ?? Test(s) Performed: ? Estrogen Receptor (ER) Status: ?Positive (greater than 10% of cells demonstrate nuclear positivity) ? Percentage of Cells with Nuclear Positivity: ?100 % ? Average Intensity of Staining: ?Strong ? Test Type: ?Laboratory-deve loped test ? Primary Antibody: ?SP1 ?? Test(s) Performed: ? Progesterone Receptor (PgR) Status: ?Positive ? Percentage of Cells with Nuclear Positivity: ?99 % ? Average Intensity of Staining: ?Strong ? Test Type: ?Laboratory-deve loped test ? Primary Antibody: ?16 ?? Test(s) Performed: ? HER2 by Immunohistochemis try: ?Equivocal (Score 2+) ? Percentage of Cells with Uniform Intense Complete Membrane Staining: ?0 % ? Test Type: ?Otto-deve loped test ? Primary Antibody: ?4B5 ?? Test(s) Performed: ? HER2 by in situ Hybridization: ?Negative (not amplified) ? Number of Observers: ?2 ? Number of Invasive Tumor Cells Counted: ?25 cells ? Method: ?Dual probe assay ? Average Number of HER2 Signals per Cell: ?1.96 ? Average Number of CEP17 Signals per Cell: ?1.74 ? HER2 / CEP17 Ratio: ?1.12 ? Aneusomy: ?Not identified ? Heterogeneous Signals: ?Not identified ? Test Type: ?Food and Drug Administration (FDA) cleared (test / vendor): [employer] HER2/Keren ?? Test(s) Performed: ?Ki-67 ? Ki-67 Percentage [...] ?Ki-67 ?? Comment(s): ?15,291 NUCLEI ANALYZED FOR KI67. The FDA approved [employer] DNA Probe Kit was developed and its performance characteristics determined by [employer]. This test incorporates minor modifications to protocol and validated by the [facility] to yield equivocal or superior performance. This FISH test uses a multiplex probe stain procedure. 09/14/2024 5:02 PM CDT [facility] Additional Information Interpreted at [facility] [employer] - [address], [place] [address] Immunohistochemis try controls were reviewed and approved by the pathologist during this examination. Patients with breast cancers that are HER2 IHC 3+ or IHC 2+/DOLORES amplified may be eligible for several therapies that disrupt HER2 signaling pathways. Invasive breast cancers that test 'HER2-negative' (IHC 0, 1+ or 2+/DOLORES not-amplified) are more specifically considered 'HER2-negative for protein overexpression/ge ne amplification' since non-overexpressed levels of the HER2 protein may be present in these cases. Patients with breast cancers that are HER2 IHC 1+ or IHC 2+/DOLORES not amplified may be eligible for a treatment that targets non-amplified/non -overexpressed levels of HER2 expression for cytotoxic drug delivery (IHC 0 results do not result in eligibility currently). 09/14/2024 5:02 PM CDT [facility] Other (Right Breast Core Ultrasound Biopsy) 09/06/2024 10:35 AM CDT 09/07/2024 10:16 AM CDT Specimen (specimen) (Right Breast Core Ultrasound Biopsy) 09/06/2024 10:35 AM CDT 09/07/2024 10:16 AM CDT Doctor Unknown PATHOLOGY/CYTOLOGY Performing Organization Address City/[facility]/ZIP Co de Phone Number [facility] [address] [place] [id number], [place] * CG HER2 BREAST (09/06/2024 10:35 AM CDT) Other (Right Breast Core Ultrasound Biopsy) 09/06/2024 10:35 AM CDT 09/11/2024 11:22 AM CDT Doctor Unknown LABORATORY Performing Organization Address City/[facility]/ZIP Co de Phone Number [facility] [address] [place] [address], [place] * CYTOGENETICS MALIGNANT TISSUE STUDIES (09/06/2024 10:35 AM CDT) RFR Breast Cancer 09/14/2024 3:13 PM CDT [facility] [facility] TEST & RESULT SUMMARY HER2 FISH Breast: See pathology report [id number]. See comments. 09/14/2024 3:13 PM CDT [facility] _ 09/14/2024 3:13 PM CDT [facility] NTRAL LABORATORY COMMENTS This record is used as an internal laboratory test designed for workflow purposes only. 09/14/2024 3:13 PM CDT [facility] LABORATORY- NTRAL LABORATORY SOURCE Right Breast Core Ultrasound Biopsy (Paraffin Slides B1 2UNS) [id number] 09/14/2024 3:13 PM CDT [facility] LAB[facility]AT[facility] Other (Right Breast Core Ultrasound Biopsy) 09/06/2024 10:35 AM CDT 09/11/2024 11:22 AM CDT Doctor Unknown LABORATORY [facility] [address] [place] [address], from Last 3 Months Care Teams Mold Swabber Relationship Specialty Start Date End Date Telly Gaines [address] [place] [address] [facility] - General 07/11/14
--- NOTE | 2024-09-27 10:45 | CRLHL7_ITS ---
For Patients: As a result of the Cures Act, medical imaging exams and procedure reports are released immediately into your electronic medical record. You may view this report before your referring provider. If you have questions, please contact your health care provider. PLEASE SEE ULTRASOUND-GUIDED WIRE LOCALIZATION X 2 PERFORMED SAME DAY CRL:corrie denton/Dictated by: Jerardo Zarate MD @ 09/27/2024 12:19:00 PM (Electronically Signed)
== END 2024-09-27 10:15 | disposition home or self-care (01) ==
LOC: US 10:15
PROVIDERS: PCP Nurse Practitioner Family; Visit Provider Surgery
DX: C50.911 Malignant neoplasm of unspecified site of right female breast (principal); D36.9 Benign neoplasm, unspecified site
CPT/HCPCS: 19285; 77065; C1769

== ENCOUNTER 2024-10-27 12:39 | Outpatient (CLI) | payer MEDICARE, SELFPAY ==
--- NOTE | 2024-10-27 13:00 | CRLHL7_ITS ---
For Patients: As a result of the Century Cures Act, medical imaging exams and procedure reports are released immediately into your electronic medical record. You may view this report before your referring provider. If you have questions, please contact your health care provider. Indication: Right axillary fullness Technique: Grayscale and color Doppler ultrasound of the right axilla soft tissues performed. Comparison: 09/27/2024, 09/06/2024 Findings: Normal right axillary lymph nodes are present with normal central fatty sidney and normal internal vascularity. No cortical thickening. Lymph nodes measure 1.4 x 0.4 x 4.0 cm and 0.9 x 0.6 x 1.3 cm. No fluid collection. Impression: Normal right axillary lymph nodes. No suspicious findings. Dictated by Jerardo Zarate MD @ 10/27/2024 1:34:33 PM (Electronically Signed)
--- NOTE | 2024-10-27 13:30 | CRLHL7_ITS ---
For Patients: As a result of the Century Cures Act, medical imaging exams and procedure reports are released immediately into your electronic medical record. You may view this report before your referring provider. If you have questions, please contact your health care provider. DXA BONE MINERAL DENSITY STUDY Reason for exam: Acquired absence of both cervix and uterus. Breast Cancer. Current height (in): 61. Weight (lb): 200. Menopause age: 52. Ethnicity: White. 1. Have you had a previous hip or vertebral fracture? No. 2. Have you had any fractures during your adult life which did not result from significant trauma (e.g., auto accident)? Yes. 3. Did either of your parents have a hip fracture? Yes. 4. Do you smoke? Yes. 5. Have you ever taken Glucocorticoids? Yes. 6. Do you have rheumatoid arthritis? Yes. 7. Do you have secondary osteoporosis? Yes. 8. Do you drink 3 or more alcoholic drinks per day? Yes. 9. Are you being treated for osteoporosis? Yes. 10. Have you ever taken any of the following medications: Actonel, Evista, Fosamax, Miacalcin, Reclast, Boniva, Forteo, HRT (i.e. estrogen/hormone therapy), Protelos, Prolia, Vitamin D, Calcium, other ??? please specify. ANSWER: Yes, vitamin D. 11. Do you have any of the following medical conditions: Anorexia or bulimia, asthma or emphysema, end stage renal disease, hyperparathyroidism, any seizure disorders, cancer, inflammatory bowel diseases, hysterectomy, other ??? please specify. ANSWER: Yes, cancer and hysterectomy. 12. What was your maximum height (inches)? 64. 13. Do you perform weight bearing exercise regularly? Yes. 14. Do you regularly consume dairy products? No. 15. Do you drink caffeinated beverages? No. 16. At what age did your period start? 14. 17. Are you premenopausal? No. 18. How many full term pregnancies have you had? 2. 19. Have you ever missed your period for more than 6 months in a row (not including or menopause)? Yes. TECHNIQUE: Bone mineral density study was performed using the [employer]. FINDINGS: The results of the study expressed as bone mineral density (BMD) are as follows: Lumbar spine L1 to L4: BMD: 1.362 g/cm2. T-score: 2.9. Z-score: 5.4. Neck Left: BMD: 0.763 g/cm2. T-score: -0.8. Z-score: 1.4. Right: BMD: 0.812 g/cm2. T-score: -0.3. Z-score: 1.9. Total Left: BMD: 1.026 g/cm2. T-score: 0.7. Z-score: 2.6. Right: BMD: 1.013 g/cm2. T-score: 0.6. Z-score: 2.5. IMPRESSION: Normal bone density. *Comparison exams done prior to 04/2020 were performed on different unit, [employer]. Jerardo Zarate M.D. Diagnostic Radiologist [email or web address] SP/Dictated by: Jerardo Zarate MD @ 10/30/2024 10:31:00 AM (Electronically Signed)
== END 2024-10-27 12:40 | disposition home or self-care (01) ==
PROVIDERS: PCP Nurse Practitioner Family; Visit Provider Internal Medicine Hematology & Oncology
DX: C50.911 Malignant neoplasm of unspecified site of right female breast (principal); N95.9 Unspecified menopausal and perimenopausal disorder; Z90.710 Acquired absence of both cervix and uterus
CPT/HCPCS: 76882; 77080

== ENCOUNTER 2024-11-20 11:09 | Outpatient (CLI) | payer MEDICARE, SELFPAY ==
[2024-11-20 14:26] LABS: PCR FLU A POSITIVE PCR FLU A (Negative); PCR FLU B Negative PCR FLU B (Negative); PCR RSV Negative PCR RSV (Negative); SARS PCR* Negative SARS-CoV-2 (Negative)
== END 2024-11-20 11:10 | disposition home or self-care (01) ==
LOC: KYNREF 11:10
PROVIDERS: PCP Nurse Practitioner Family; Visit Provider Nurse Practitioner Family
DX: R05.9 Cough, unspecified (principal)
CPT/HCPCS: 87631

== ENCOUNTER 2025-04-02 13:30 | Outpatient (RCR) | payer MEDICARE, SELFPAY | END 2025-04-07 23:59 | disposition home or self-care (01) | LOC: CCIC 13:30 | PROVIDERS: PCP Nurse Practitioner Family; Visit Provider Physician Assistant | DX: C50.911 Malignant neoplasm of unspecified site of right female breast (principal); Z17.0 Estrogen receptor positive status [ER+]; L98.9 Disorder of the skin and subcutaneous tissue, unspecified | CPT/HCPCS: 99202; 99205; 99213; 99215; G0463 ==

== ENCOUNTER 2025-08-28 09:14 | Outpatient (CLI) | payer MEDICARE, SELFPAY | END 2025-08-28 09:15 | disposition home or self-care (01) | PROVIDERS: PCP Nurse Practitioner Family; Visit Provider Nurse Practitioner Family | DX: Z13.0 Encounter for screening for diseases of the blood and blood-forming organs and certain disorders involving the immune mechanism (principal); Z13.21 Encounter for screening for nutritional disorder; I10 Essential (primary) hypertension; E78.5 Hyperlipidemia, unspecified | CPT/HCPCS: 80053; 80061; 82306; 85025 ==

== ENCOUNTER 2025-08-29 13:40 | Outpatient (CLI) | payer MEDICARE, SELFPAY ==
--- NOTE | 2025-08-29 14:20 | CRLHL7_ITS ---
For Patients: As a result of the Century Cures Act, medical imaging exams and procedure reports are released immediately into your electronic medical record. You may view this report before your referring provider. If you have questions, please contact your health care provider. INDICATION: BILATERAL SCREENING MAMMOGRAM, ASYMPTOMATIC 80 Y/O FEMALE COMPARISON: 08/10/2024, 08/22/2024, 09/06/2024 TECHNIQUE: Digital mammogram in CC and MLO projections including computer-aided detection (CAD) and tomosynthesis. BREAST COMPOSITION: There are scattered areas of fibroglandular density. FINDINGS: No suspicious findings. There are post-surgical changes of the right breast. ASSESSMENT: BI-RADS 2 Benign RECOMMENDATION: Annual screening mammogram. A lay language report of this examination will be provided to the patient. Dictated by: Zeinab Rodriguez MD @ 09/01/2025 07:26:22 (Electronically Signed)
== END 2025-08-29 13:41 | disposition home or self-care (01) ==
LOC: MAMMO 13:40
PROVIDERS: PCP Nurse Practitioner Family; Visit Provider Nurse Practitioner Family
DX: Z12.31 Encounter for screening mammogram for malignant neoplasm of breast (principal)
CPT/HCPCS: 77063; 77067